=== PATIENT | female | born 1970 | race Hispanic/Latino ===

== ENCOUNTER 2021-10-09 20:10 | Emergency (ER) | payer OTHER ==
--- NOTE | 2021-10-09 21:08 | RAD REPORT ---
EXAM DESCRIPTION: CT - CTHCSPWOC - 10/09/2021 8:53 pm CLINICAL HISTORY: Trauma, head and neck injury. LOC, fall COMPARISON: <Comparisons> TECHNIQUE: Axial 5 mm thick images of the head were obtained. Axial 2 mm thick images of the cervical spine were obtained with sagittal and coronal reconstruction images generated and reviewed. All CT scans are performed using dose optimization technique as appropriate and may include automated exposure control or mA/KV adjustment according to patient size. FINDINGS: CT HEAD WITHOUT CONTRAST: No acute hemorrhage, hydrocephalus or extra-axial collection is identified.No areas of brain edema or midline shift. There is significant right-sided ostiomeatal unit pattern of sinus disease noted. The calvarium is in tact. CT CERVICAL SPINE WITHOUT CONTRAST: No fracture or subluxation.No prevertebral soft tissues swelling is identified. IMPRESSION: No acute intracranial or cervical spine findings.
[2021-10-09] MEDS ORDERED: Ringers Lactate 1,000 ML IV ONE (23:28)
[2021-10-09 23:31] LABS: Hematocrit 42.4 % (36.0-45.0); MPV 8.2 fL (7.6-11.3); RBC Red Blood Cell Count 4.85 M/uL (3.86-4.86)
[2021-10-09 23:45] LABS: ALT/SGPT 29 U/L (12-78); AST/SGOT 14 U/L (15-37); Albumin 3.1 g/dL (3.4-5.0); Alkaline Phosphatase 114 U/L (45-117); BUN Blood Urea Nitrogen 8 mg/dL (7-18); Bicarbonate 28 mmol/L (21-32); Bilirubin Direct 0.1 mg/dL (0-0.2); Bilirubin Total 0.5 mg/dL (0.2-1.0); Glucose Level 275 mg/dL (74-106); Lipase 99 U/L (73-393); Potassium 3.9 mmol/L (3.5-5.1); Protein, Total 8.1 g/dL (6.4-8.2); Sodium Level 136 mmol/L (136-145)
--- NOTE | 2021-10-10 00:22 | ER ---
Nurse's Notes [facility] Name: Tova Ames Age: 51 yrs Sex: Female : 1970 Arrival Date: 10/09/2021 Time: 20:13 Bed 27 Private MD: Diagnosis: Vomiting;Acute post-traumatic headache;SARS-associated coronavirus as the cause of diseases classified elsewhere Presentation: 10/09 20:34 Chief complaint: Patient states: she was throwing up a lot and then she maybe passed iw out and hit her head on the end of the table , pt states she had a cough this morning and she fell then also , she got really upset today , she has nerve issues and was having pain in her joints. 20:34 Acuity: JACKIE 3 iw 20:34 Method Of Arrival: Wheelchair iw 20:38 Coronavirus screen: At this time, the client does not indicate any symptoms associated iw with coronavirus-19. Ebola Screen: Patient negative for fever greater than or equal to 101.5 degrees Fahrenheit, and additional compatible Ebola Virus Disease symptoms Patient denies exposure to infectious person. Patient denies travel to an Ebola-affected area in the 21 days before illness onset. No symptoms or risks identified at this time. Initial Sepsis Screen: Does the patient meet any 2 criteria? No. Patient's initial sepsis screen is negative. Does the patient have a suspected source of infection? No. Patient's initial sepsis screen is negative. Risk Assessment: Do you want to hurt yourself or someone else? Patient reports no desire to harm self or others. Onset of symptoms was October 09, 2021. Triage Assessment: 10/10 01:29 Pain: Denies pain. liliane Historical: - Allergies: 10/09 20:39 PENICILLINS; iw - PMHx: 20:39 Diabetes mellitus; iw - Immunization history:: second infection with Covid. - Social history:: Smoking status: unknown. Screenin:45 Abuse screen: Denies threats or abuse. Denies injuries from another. Nutritional liliane screening: No deficits noted. Tuberculosis screening: No symptoms or risk factors identified. Fall Risk None identified. Assessment: 21:45 General: Appears in no apparent distress. Behavior is calm, cooperative. liliane 10/10 01:31 General: The pt was given a mask at ct and she ambulated with a steady gait to the liliane front waiting area. She reported that this was her second infection with Covid and that her had passed last year and it too, was attributed to Covid, she, however, believed it to be another illness. . Vital Signs: 10/09 20:38 BP 143 / 86; Pulse 81; Resp 16; Temp 98.5; Pulse Ox 100% on R/A; iw 21:45 BP 132 / 85; Pulse 72; Resp 16; Temp 98.5; Pulse Ox 99% on R/A; Pain 0/10; liliane 21:45 BP 133 / 75; Pulse 88; Resp 16; Temp 98.5; Pulse Ox 99% on R/A; Pain 0/10; liliane ED Course: 20:13 Patient arrived in ED. ag3 20:38 Triage completed. iw 20:40 Arm band placed on. iw 20:53 CT Head C Spine In Process Unspecified. EDMS 21:37 Max Toth PA is PHCP. jr8 21:37 Tye Coronado MD is Attending Physician. jr8 21:45 Patient has correct armband on for positive identification. Placed in gown. Side rails liliane up X 1. Family at bedside. 22:49 XRAY Chest (1 view) In Process Unspecified. EDMS 23:23 Emilie Baxter, RN is Primary Nurse. liliane 23:23 Basic Metabolic Panel Sent. liliane 23:23 SARS-COV-2 RT PCR (Document "Date of Onset" if Symptomatic) Sent. liliane 23:24 Basic Metabolic Panel Sent. liliane 23:24 CBC with Diff Sent. liliane 23:24 Hepatic Function Sent. liliane 23:24 Lipase Sent. liliane 23:32 SARS-COV-2 RT PCR (Document "Date of Onset" if Symptomatic) Sent. liliane 23:32 Basic Metabolic Panel Sent. liliane 10/10 01:28 No provider procedures requiring assistance completed. liliane 01:28 intact, bleeding controlled, No redness/swelling at site. Pressure dressing applied. liliane Administered Medications: 10/09 23:32 Drug: Ringers - Lactated Ringers Solution 1000 ml Route: IV; Rate: bolus; Site: right liliane antecubital; Outcome: 10/10 00:21 Discharge ordered by . mil 01:28 Discharged to home liliane 01:28 Condition: stable 01:28 Discharge instructions given to patient, Instructed on discharge instructions, follow up and referral plans. Prescriptions given X 1. 01:30 Patient left the ED. liliane Signatures: Dispatcher [employer] Mayuri Mratínez, RN RN Max Muniz PA PA jr8 Chanelle Irvin ag3 Emilie Baxter RN RN bo
--- NOTE | 2021-10-10 00:22 | EDPHYS ---
Physician Documentation [facility] Name: Tova Ames Age: 51 yrs Sex: Female : 1970 Arrival Date: 10/09/2021 Time: 20:13 Bed 27 Private MD: ED Physician Tye Coronado HPI: 10/09 22:30 This 51 yrs old Female presents to ER via Wheelchair with complaints of Fall jr8 Injury, Head Injury-Adult. 22:30 Severity of symptoms: At their worst the symptoms were moderate, in the emergency jr8 department the symptoms have improved. The patient has not experienced similar symptoms in the past. The patient has not recently seen a physician. This is a 51-year-old female patient that presented to the emergency room after sustaining a fall at home. Patient stated that she had been vomiting and he became dizzy and fell and hit the back of her head. Family stated that she was not acting right for a while. Patient stated that initially she did not know where she was but is now feeling better. Patient stated that she has been having URI-like symptoms along with cough and now vomiting. Patient had vomiting a couple weeks ago but had resolved.. Historical: - Allergies: 20:39 PENICILLINS; iw - PMHx: 20:39 Diabetes mellitus; iw - Immunization history:: second infection with Covid. - Social history:: Smoking status: unknown. ROS: 22:30 Eyes: Negative for injury, pain, redness, and discharge, Neck: Negative for injury, jr8 pain, and swelling, Cardiovascular: Negative for chest pain, palpitations, and edema. 22:30 ENT: Positive for sinus congestion. 22:30 Respiratory: Positive for cough, Negative for dyspnea on exertion, shortness of breath, sputum production, wheezing. 22:30 Abdomen/GI: Positive for nausea and vomiting, Negative for abdominal pain, diarrhea. 22:30 Neuro: Positive for dizziness, headache. Exam: 22:30 Constitutional: This is a well developed, well nourished patient who is awake, alert, jr8 and in no acute distress. Head/Face: Normocephalic, atraumatic. Eyes: Pupils equal round and reactive to light, extra-ocular motions intact. Lids and lashes normal. Conjunctiva and sclera are non-icteric and not injected. Cornea within normal limits. Periorbital areas with no swelling, redness, or edema. ENT: Nares patent. No nasal discharge, no septal abnormalities noted. Tympanic membranes are normal and external auditory canals are clear. Oropharynx with no redness, swelling, or masses, exudates, or evidence of obstruction, uvula midline. Mucous membranes moist. Neck: Trachea midline, no thyromegaly or masses palpated, and no cervical lymphadenopathy. Supple, full range of motion without nuchal rigidity, or vertebral point tenderness. No Meningismus. Cardiovascular: Regular rate and rhythm with a normal S1 and S2. No gallops, murmurs, or rubs. Normal PMI, no JVD. No pulse deficits. Respiratory: Lungs have equal breath sounds bilaterally, clear to auscultation and percussion. No rales, rhonchi or wheezes noted. No increased work of breathing, no retractions or nasal flaring. Abdomen/GI: Soft, non-tender, with normal bowel sounds. No distension or tympany. No guarding or rebound. No evidence of tenderness throughout. Back: No spinal tenderness. No costovertebral tenderness. Full range of motion. Skin: Warm, dry with normal turgor. Normal color with no rashes, no lesions, and no evidence of cellulitis. MS/ Extremity: Pulses equal, no cyanosis. Neurovascular intact. Full, normal range of motion. Neuro: Awake and alert, GCS 15, oriented to person, place, time, and situation. Cranial nerves II-XII grossly intact. Motor strength 5/5 in all extremities. Sensory grossly intact. Cerebellar exam normal. Normal gait. Vital Signs: 20:38 BP 143 / 86; Pulse 81; Resp 16; Temp 98.5; Pulse Ox 100% on R/A; iw 21:45 BP 132 / 85; Pulse 72; Resp 16; Temp 98.5; Pulse Ox 99% on R/A; Pain 0/10; liliane 21:45 BP 133 / 75; Pulse 88; Resp 16; Temp 98.5; Pulse Ox 99% on R/A; Pain 0/10; liliane MDM: 21:37 Patient medically screened. [facility] 10/10 00:19 Data reviewed: vital signs, nurses notes, lab test result(s), radiologic studies, CT jr8 scan, plain films. Data interpreted: Pulse oximetry: on room air is 100 %. Interpretation: normal. Counseling: I had a detailed discussion with the patient and/or guardian regarding: the historical points, exam findings, and any diagnostic results supporting the discharge/admit diagnosis, lab results, radiology results, the need for outpatient follow up, a family practitioner, to return to the emergency department if symptoms worsen or persist or if there are any questions or concerns that arise at home. 10/09 22:06 Order name: Basic Metabolic Panel jr8 10/09 22:06 Order name: CBC with Diff; Complete Time: 23:57 jr8 10/09 22:06 Order name: Hepatic Function; Complete Time: 23:57 jr8 10/09 22:06 Order name: Lipase; Complete Time: 23:57 jr8 10/09 22:06 Order name: SARS-COV-2 RT PCR (Document "Date of Onset" if Symptomatic); Complete Time: jr8 00:37 10/09 22:06 Order name: Basic Metabolic Panel; Complete Time: 23:57 EDMS 10/09 20:40 Order name: CT Head C Spine; Complete Time: 21:37 iw 10/09 22:06 Order name: IV Saline Lock; Complete Time: 23:23 jr8 10/09 22:06 Order name: Labs collected and sent; Complete Time: 23:23 jr8 10/09 22:06 Order name: XRAY Chest (1 view) jr8 Administered Medications: 10/09 23:32 Drug: Ringers - Lactated Ringers Solution 1000 ml Route: IV; Rate: bolus; Site: right liliane antecubital; Disposition: 10/10 04:06 Co-signature as Attending Physician, Tye Coronado MD. pkl Disposition Summary: 10/10/21 00:21 Discharge Ordered Location: Home jr8 Problem: new jr8 Symptoms: have improved jr8 Condition: Stable jr8 Diagnosis - Vomiting jr8 - Acute post-traumatic headache jr8 - SARS-associated coronavirus as the cause of diseases classified elsewhere jr8 Followup: jr8 - With: Private Physician - When: 2 - 3 days - Reason: Recheck today's complaints, Continuance of care, Re-evaluation by your physician Discharge Instructions: - Discharge Summary Sheet jr8 - Vomiting, Adult jr8 - COVID-19 jr8 Forms: - Medication Reconciliation Form jr8 - Thank You Letter jr8 - Antibiotic Education jr8 - Prescription Opioid Use jr8 Prescriptions: - Zofran 4 mg Oral Tablet - take 1 tablet by ORAL route every 12 hours As needed; 20 tablet; Refills: 0, jr8 Product Selection Permitted Signatures: Dispatcher [employer] Tye Treviño MD MD pkl Williams, Irene RN RN Max Muniz PA PA jr8 Emilie Baxter RN RN bo
[2021-10-10 01:36] VITALS: TEMP 98.5
[2021-10-10 01:39] VITALS: BP 133/75; O2SAT 99
--- NOTE | 2021-10-10 08:04 | RAD REPORT ---
EXAM DESCRIPTION: Manny Single View10/09/2021 10:49 pm CLINICAL HISTORY: Cough COMPARISON: 2011 FINDINGS: The lungs appear clear of acute infiltrate. The heart is normal size IMPRESSION: No acute abnormalities displayed
== END 2021-10-10 01:30 | disposition home or self-care (01) ==
LOC: ER 20:10
DX: U07.1 COVID-19 (principal); G44.319 Acute post-traumatic headache, not intractable; W18.30XA Fall on same level, unspecified, initial encounter; Y92.009 Unspecified place in unspecified non-institutional (private) residence as the place of occurrence of the external cause; E11.9 Type 2 diabetes mellitus without complications; Z88.0 Allergy status to penicillin
CPT/HCPCS: 85025; 80048; 36415; 80076; 83690; 70450; 72125; 71045; 96374; 99284; U0003; J7120

== ENCOUNTER 2022-03-01 15:05 | Emergency (ER) | payer SELFPAY ==
--- NOTE | 2022-03-01 17:31 | RAD REPORT ---
EXAM DESCRIPTION: Manny Single View03/01/2022 4:41 pm CLINICAL HISTORY: cough COMPARISON: October 2021 FINDINGS: The lungs appear clear of acute infiltrate. The heart is normal size IMPRESSION: No acute abnormalities displayed
--- NOTE | 2022-03-01 17:34 | ER ---
Nurse's Notes [facility] Name: Tova Ames Age: 51 yrs Sex: Female : 1970 Arrival Date: 03/01/2022 Time: 15:08 Bed Waiting Private MD: Diagnosis: Acute upper respiratory infection, unspecified Presentation: 03/01 15:46 Chief complaint: Patient states: cough, congestion, sore throat and body aches since vg1 Saturday. Also states vomiting. Coronavirus screen: Vaccine status: Patient reports being unvaccinated. Client denies travel out of the [place] in the last 14 days. Ebola Screen: Patient denies exposure to infectious person. Patient denies travel to an Ebola-affected area in the 21 days before illness onset. Initial Sepsis Screen: Does the patient meet any 2 criteria? No. Patient's initial sepsis screen is negative. Does the patient have a suspected source of infection? No. Patient's initial sepsis screen is negative. Risk Assessment: Do you want to hurt yourself or someone else? Patient reports no desire to harm self or others. Onset of symptoms was February 26, 2022. 15:46 Method Of Arrival: Wheelchair vg1 15:46 Acuity: JACKIE 4 vg1 Triage Assessment: 15:52 General: Appears uncomfortable, Behavior is calm, cooperative. Pain: Complains of pain vg1 in back. Respiratory: Airway is patent Respiratory effort is even, unlabored. Historical: - Allergies: 15:52 PENICILLINS; vg1 15:52 Aspirin; vg1 15:52 ibuprofen; vg1 - PMHx: 15:52 diabetes mellitus; Nerve damage; vg1 - Immunization history:: Client reports having NOT received the Covid vaccine. - Social history:: Smoking status: Patient denies any tobacco usage or history of. Screenin:49 Abuse screen: Denies threats or abuse. Nutritional screening: No deficits noted. vg1 Tuberculosis screening: No symptoms or risk factors identified. Fall Risk None identified. Assessment: 17:49 Reassessment: Patient appears in no apparent distress at this time. No changes from vg1 previously documented assessment. Patient and/or family updated on plan of care and expected duration. Pain level reassessed. Patient is alert, oriented x 3, equal unlabored respirations, skin warm/dry/pink. Vital Signs: 15:46 BP 134 / 69; Pulse 90; Resp 18; Temp 98.8(TE); Pulse Ox 99% ; Weight 71.21 kg; Height 5 vg1 ft. 1 in. (154.94 cm); 15:46 Body Mass Index 29.66 (71.21 kg, 154.94 cm) vg1 ED Course: 15:08 Patient arrived in ED. mr 15:45 Max Toth PA is PHCP. jr8 15:45 Cody Ron MD is Attending Physician. jr8 15:52 Triage completed. vg1 15:52 Arm band placed on. vg1 16:43 Chest Single View XRAY In Process Unspecified. EDMS 17:49 Patient has correct armband on for positive identification. vg1 17:49 No provider procedures requiring assistance completed. Patient did not have IV access vg1 during this emergency room visit. Administered Medications: No medications were administered Medication: 17:50 VIS not applicable for this client. vg1 Outcome: 17:34 Discharge ordered by . jr8 17:49 Discharged to home ambulatory, with family. vg1 17:49 Condition: good 17:49 Discharge instructions given to patient, Instructed on discharge instructions, follow up and referral plans. medication usage, Demonstrated understanding of instructions, follow-up care, medications, Prescriptions given X 2. 17:50 Patient left the ED. vg1 Signatures: Dispatcher [employer] Agnieszka Storey mr Max Toth PA PA jr8 Idania Tsai, RN RN vg1
--- NOTE | 2022-03-01 17:35 | EDPHYS ---
Physician Documentation [facility] Name: Tova Ames Age: 51 yrs Sex: Female : 1970 Arrival Date: 03/01/2022 Time: 15:08 Bed Waiting Private MD: ED Physician Cody Ron HPI: 03/01 16:22 This 51 yrs old Female presents to ER via Wheelchair with complaints of Cough, jr8 Congestion, Sore Throat. 16:22 The patient or guardian reports cough, that is intermittent, described as mild, flu jr8 symptoms, low-grade fever, myalgias. Onset: The symptoms/episode began/occurred gradually. Severity of symptoms: At their worst the symptoms were mild, in the emergency department the symptoms are unchanged. Modifying factors: The symptoms are alleviated by nothing, the symptoms are aggravated by nothing. Associated signs and symptoms: Pertinent positives: rhinorrhea, sore throat. The patient has not experienced similar symptoms in the past. The patient has not recently seen a physician. Historical: - Allergies: 15:52 PENICILLINS; vg1 15:52 Aspirin; vg1 15:52 ibuprofen; vg1 - PMHx: 15:52 diabetes mellitus; Nerve damage; vg1 - Immunization history:: Client reports having NOT received the Covid vaccine. - Social history:: Smoking status: Patient denies any tobacco usage or history of. ROS: 16:22 Eyes: Negative for injury, pain, redness, and discharge, Neck: Negative for injury, jr8 pain, and swelling, Cardiovascular: Negative for chest pain, palpitations, and edema, Abdomen/GI: Negative for abdominal pain, nausea, vomiting, diarrhea, and constipation, Back: Negative for injury and pain, MS/Extremity: Negative for injury and deformity, Skin: Negative for injury, rash, and discoloration. 16:22 ENT: Positive for rhinorrhea, sinus congestion, sore throat. 16:22 Respiratory: Positive for cough, Negative for shortness of breath, sputum production, wheezing. 16:22 Neuro: Positive for headache. Exam: 16:22 Eyes: Pupils equal round and reactive to light, extra-ocular motions intact. Lids and jr8 lashes normal. Conjunctiva and sclera are non-icteric and not injected. Cornea within normal limits. Periorbital areas with no swelling, redness, or edema. ENT: Nares patent. No nasal discharge, no septal abnormalities noted. Tympanic membranes are normal and external auditory canals are clear. Oropharynx with no redness, swelling, or masses, exudates, or evidence of obstruction, uvula midline. Mucous membranes moist. Neck: Trachea midline, no thyromegaly or masses palpated, and no cervical lymphadenopathy. Supple, full range of motion without nuchal rigidity, or vertebral point tenderness. No Meningismus. Cardiovascular: Regular rate and rhythm with a normal S1 and S2. No gallops, murmurs, or rubs. Normal PMI, no JVD. No pulse deficits. Respiratory: Lungs have equal breath sounds bilaterally, clear to auscultation and percussion. No rales, rhonchi or wheezes noted. No increased work of breathing, no retractions or nasal flaring. Abdomen/GI: Soft, non-tender, with normal bowel sounds. No distension or tympany. No guarding or rebound. No evidence of tenderness throughout. Back: No spinal tenderness. No costovertebral tenderness. Full range of motion. Skin: Warm, dry with normal turgor. Normal color with no rashes, no lesions, and no evidence of cellulitis. MS/ Extremity: Pulses equal, no cyanosis. Neurovascular intact. Full, normal range of motion. Neuro: Awake and alert, GCS 15, oriented to person, place, time, and situation. Cranial nerves II-XII grossly intact. Motor strength 5/5 in all extremities. Sensory grossly intact. Vital Signs: 15:46 BP 134 / 69; Pulse 90; Resp 18; Temp 98.8(TE); Pulse Ox 99% ; Weight 71.21 kg; Height 5 vg1 ft. 1 in. (154.94 cm); 15:46 Body Mass Index 29.66 (71.21 kg, 154.94 cm) vg1 MDM: 15:45 Patient medically screened. jr8 17:33 Data reviewed: vital signs, nurses notes, lab test result(s), radiologic studies, plain jr8 films. Data interpreted: Pulse oximetry: on room air is 99 %. Interpretation: normal. Counseling: I had a detailed discussion with the patient and/or guardian regarding: the historical points, exam findings, and any diagnostic results supporting the discharge/admit diagnosis, lab results, radiology results, the need for outpatient follow up, a family practitioner, to return to the emergency department if symptoms worsen or persist or if there are any questions or concerns that arise at home. 03/01 15:37 Order name: COVID-19 SARS RT PCR (Document "Date of Onset" if Symptomatic); Complete iw Time: 17:33 03/01 15:40 Order name: Flu; Complete Time: 16:45 iw 03/01 15:37 Order name: Chest Single View XRAY; Complete Time: 17:33 iw 03/01 15:40 Order name: Strep; Complete Time: 16:22 iw 03/01 16:24 Order name: Throat Culture EDMS Administered Medications: No medications were administered Disposition Summary: 03/01/22 17:34 Discharge Ordered Location: Home jr8 Problem: new jr8 Symptoms: have improved jr8 Condition: Stable jr8 Diagnosis - Acute upper respiratory infection, unspecified jr8 Followup: jr8 - With: Private Physician - When: 1 week - Reason: Recheck today's complaints, Continuance of care, Re-evaluation by your physician Discharge Instructions: - Discharge Summary Sheet jr8 - Upper Respiratory Infection, Adult jr8 Forms: - Medication Reconciliation Form jr8 - Thank You Letter jr8 - Antibiotic Education jr8 - Prescription Opioid Use jr8 Prescriptions: - Tessalon Perles 100 mg Oral Capsule - take 1 capsule by ORAL route every 8 hours As needed; 15 capsule; Refills: 0, jr8 Product Selection Permitted - Claritin-D 24 Hour 10-240 mg Oral Tablet Sustained Release 24 hr - take 1 tablet by ORAL route once daily As needed; 20 tablet; Refills: 0, jr8 Product Selection Permitted Signatures: Dispatcher [employer] Max Barnes PA PA jr8 Idania Tsai, RN RN vg1
[2022-03-01 18:05] VITALS: BP 134/69; TEMP 98.8; O2SAT 99
== END 2022-03-01 17:50 | disposition home or self-care (01) ==
LOC: ER 15:05
DX: J06.9 Acute upper respiratory infection, unspecified (principal); R51.9 Headache, unspecified; E11.9 Type 2 diabetes mellitus without complications; Z20.822 Contact with and (suspected) exposure to COVID-19; Z88.0 Allergy status to penicillin; Z88.6 Allergy status to analgesic agent
CPT/HCPCS: 71045; 87070; 87081; 87804; 99283; U0003

== ENCOUNTER 2022-10-16 23:23 | Emergency (ER) | payer SELFPAY ==
[2022-10-17 00:24] LABS: Absolute Lymphocytes (CBC) 2.4 K/uL (0.7-4.9); Hematocrit 41.3 % (36.0-45.0); MCV 88.5 fL (80-100); MPV 8.5 fL (7.6-11.3); RBC Red Blood Cell Count 4.67 M/uL (3.86-4.86)
[2022-10-17 00:27] LABS: Protime INR 1.06
[2022-10-17 00:38] LABS: Albumin 3.5 g/dL (3.4-5.0); Bilirubin Direct 0.1 mg/dL (0-0.2); Bilirubin Total 0.4 mg/dL (0.2-1.0); Magnesium 1.9 mg/dL (1.6-2.4); Potassium 3.8 mmol/L (3.5-5.1); Protein, Total 7.9 g/dL (6.4-8.2); Troponin High Sensitivity 4.3 pg/mL (<58.9)
[2022-10-17] MEDS ORDERED: INSULIN -REGULAR HUMAN 50 UNIT/0.5 ML ML ONE (01:33)
[2022-10-17] MEDS ORDERED: NA CHLORIDE 0.9% 1,000 ML ONE (01:34)
[2022-10-17 02:02] LABS: Urine Blood Negative (Negative); Urine Glucose 2+ (Negative); Urine Protein 2+ (Negative); Urine Specific Gravity 1.015 (1.005-1.030)
[2022-10-17 02:14] LABS: Urine Specific Gravity/Preg 1.015 (1.005-1.030)
[2022-10-17 02:41] LABS: Urine Bacteria None Seen /HPF (<20); Urine Mucus Slight /HPF (None Seen); Urine RBC <5 /HPF (None Seen)
--- NOTE | 2022-10-17 03:33 | EDPHYS ---
Physician Documentation [facility] Name: Tova Ames Age: 52 yrs Sex: Female : 1970 Arrival Date: 10/16/2022 Time: 23:24 Bed 14 Private MD: ED Physician Surya Zabala HPI: 10/16 23:40 This 52 yrs old Female presents to ER via Wheelchair with complaints of cp Fainting, Altered Mental Status. 23:40 The patient has experienced syncope, became unresponsive, collapsed. Onset: The cp symptoms/episode began/occurred just prior to arrival. Duration: This was a single episode, about 10-15 minutes. Context: the episode(s) was witnessed, by family, granddaughter, occurred at home, occurred while the patient was walking, Just prior to the episode the patient experienced was upset. Associated injury: Abdomen: anterior aspect of right lateral abdomen, pain. Associated signs and symptoms: Pertinent positives: confusion, Pertinent negatives: chest pain, vomiting. Current symptoms: abdominal pain. Historical: - Allergies: 23:30 Aspirin; vc1 23:30 Ibuprofen; vc1 23:30 PENICILLINS; vc1 - PMHx: 23:30 diabetes mellitus; Nerve damage; vc1 - PSHx: 23:30 None; vc1 - Immunization history:: Client reports receiving the 1st dose of the Covid vaccine. - Social history:: Smoking status: Patient denies any tobacco usage or history of. ROS: 23:45 Constitutional: Negative for body aches, chills, fever, poor PO intake. cp 23:45 Eyes: Negative for injury, pain, redness, and discharge. cp 23:45 ENT: Negative for drainage from ear(s), ear pain, sore throat, difficulty swallowing, difficulty handling secretions. 23:45 Cardiovascular: Negative for chest pain, edema, palpitations. 23:45 Respiratory: Negative for cough, shortness of breath, wheezing. 23:45 Abdomen/GI: Positive for abdominal pain, Negative for nausea, vomiting, and diarrhea, black/tarry stool, rectal bleeding. 23:45 Back: Negative for pain at rest, pain with movement. 23:45 Neuro: Positive for syncope. 23:45 All other systems are negative. Exam: 23:51 Constitutional: The patient appears in no acute distress, alert, awake, cp non-diaphoretic, non-toxic, well developed, well nourished, unkempt. 23:51 Head/Face: Normocephalic, atraumatic. cp 23:51 Eyes: Periorbital structures: appear normal, Pupils: equal, round, and reactive to light and accomodation, Extraocular movements: intact throughout, Conjunctiva: normal, no exudate, no injection, Sclera: no appreciated abnormality, Lids and lashes: appear normal, bilaterally. 23:51 ENT: External ear(s): are unremarkable, Nose: is normal, Mouth: is normal, Voice: is normal. 23:51 Neck: External neck: is normal, C-spine: vertebral tenderness, is not appreciated, crepitus, is not appreciated, ROM/movement: pain, that is mild, with any movement, Meningeal signs: are not present, nuchal rigidity, is not appreciated. 23:51 Chest/axilla: Inspection: normal. 23:51 Cardiovascular: Rate: normal, Rhythm: regular, Edema: is not appreciated, JVD: is not appreciated. 23:51 Respiratory: the patient does not display signs of respiratory distress, Respirations: normal, no use of accessory muscles, no retractions, labored breathing, is not present, Breath sounds: are clear throughout, no decreased breath sounds, no stridor, no wheezing. 23:51 Abdomen/GI: Inspection: abdomen appears normal, Bowel sounds: active, all quadrants, Palpation: soft, in all quadrants. 23:51 Back: vertebral tenderness, is not appreciated. 23:51 Skin: cellulitis, is not appreciated, no rash present. 23:51 Neuro: Orientation: to person, place, situation, Mentation: able to follow commands, slow to respond, Cerebellar function: Romberg testing is negative, Motor: moves all fours, general weakness with no focal deficits, Sensation: no obvious gross deficits. 10/17 00:33 ECG was reviewed by the Attending Physician. cp Vital Signs: 10/16 23:28 Weight 71.21 kg; Height 5 ft. 1 in. (154.94 cm); vc1 23:28 Pain 6/10; vc1 23:40 BP 130 / 70; Pulse 87; Resp 15; Temp 98.9(O); Pulse Ox 97% on R/A; vc1 10/17 01:00 BP 113 / 62; Pulse 73; Resp 19 S; Pulse Ox 99% on R/A; Pain 0/10; aa9 02:30 BP 115 / 73; Pulse 72; Resp 19 S; Pulse Ox 99% on R/A; Pain 0/10; aa9 04:00 BP 142 / 85; Pulse 71; Resp 19 S; Pulse Ox 97% on R/A; aa9 10/16 23:28 Body Mass Index 29.66 (71.21 kg, 154.94 cm) vc1 MDM: 10/16 23:34 Patient medically screened. cp 10/17 03:30 Data reviewed: vital signs, nurses notes, lab test result(s), EKG, radiologic studies, cp CT scan, plain films. 03:30 Consideration of Admission/Observation Patient was admitted/placed on observation. cp Management of patient was discussed with the following: Hospitalist: Isa Lucia NP. I considered the following discharge prescriptions or medication management in the emergency department Medications were administered in the Emergency Department. See MAR. Test considered but Not performed: Other Details echo. Historians other than the Patient: Family Member: Granddaughter. Care significantly affected by the following chronic conditions: Diabetes, neuropathy. Care significantly affected by the following Social Determinants of Health: Poor access to healthcare and/or lack of insurance. Response to treatment: the patient's symptoms have markedly improved after treatment, and as a result, I will admit patient. 10/16 23:57 Order name: Basic Metabolic Panel; Complete Time: 01:20 cp 10/17 01:20 Interpretation: Normal except: CL 97; GLUC 381; GFR 83. cp 10/16 23:57 Order name: CBC with Diff; Complete Time: 01:20 cp 10/17 02:56 Interpretation: Reviewed. cp 10/16 23:57 Order name: D-Dimer; Complete Time: 01:20 cp 10/16 23:57 Order name: LFT's; Complete Time: 01:20 cp 10/17 02:56 Interpretation: Normal except: AST 12; GLOB 4.4; A/G 0.8. cp 10/16 23:57 Order name: Magnesium; Complete Time: 01:20 cp 10/16 23:57 Order name: NT PRO-BNP; Complete Time: 01:20 cp 10/16 23:57 Order name: PT-INR; Complete Time: 01:20 cp 10/16 23:57 Order name: Troponin HS; Complete Time: 01:20 cp 10/16 23:57 Order name: Urine Microscopic Only; Complete Time: 02:55 cp 10/17 00:21 Order name: Glucose, Ancillary Testing; Complete Time: 01:20 EDMS 10/17 01:20 Interpretation: Abnormal: GLUC,ANCIL 366. cp 10/17 02:02 Order name: Urine --Ancillary (enter results); Complete Time: 02:55 mw2 10/17 02:02 Order name: Urine Dipstick-Ancillary; Complete Time: 02:55 EDMS 10/17 02:56 Interpretation: Normal except: UGLUC 2+; UPROT 2+. cp 10/17 02:35 Order name: Glucose, Ancillary Testing; Complete Time: 02:55 EDMS 10/17 02:56 Interpretation: Abnormal: GLUC,ANCIL 230. cp 10/17 03:31 Order name: SARS RAPID; Complete Time: 04:02 cp 10/16 23:57 Order name: XRAY Chest (1 view) cp 10/16 23:57 Order name: EKG; Complete Time: 23:58 cp 10/16 23:57 Order name: Cardiac monitoring; Complete Time: 00:09 cp 10/16 23:57 Order name: EKG - Nurse/Tech; Complete Time: 00:28 cp 10/16 23:57 Order name: IV Saline Lock; Complete Time: 00:09 cp 10/16 23:57 Order name: Labs collected and sent; Complete Time: 00:09 cp 10/16 23:57 Order name: O2 Per Protocol; Complete Time: 00:09 cp 10/16 23:57 Order name: O2 Sat Monitoring; Complete Time: 00:09 cp 10/16 23:57 Order name: Urine Dipstick-Ancillary (obtain specimen); Complete Time: 02:02 cp 10/16 23:57 Order name: Urine Test (obtain specimen); Complete Time: 02:02 cp 10/16 23:57 Order name: Accucheck Blood Glucose; Complete Time: 00:09 cp 10/16 23:57 Order name: XRAY Humerus RIGHT cp 10/16 23:57 Order name: XRAY Wrist RIGHT 3 view cp 10/17 00:26 Order name: CT Traumagram (Head C Spine CAP W Con) cp EC:33 Rate is 84 beats/min. Rhythm is regular. LA interval is normal. QRS interval is normal. cp QT interval is normal. T waves are Inverted in leads III, aVR. Interpreted by me. Reviewed by me. Administered Medications: 01:34 Drug: Insulin Regular Human 10 units {Co-Signature: [email or web address] (Javon Luciano RN).} aa9 Route: IVP; Site: right antecubital; 04:22 Follow up: Response: No adverse reaction aa9 01:34 Drug: NS 0.9% 1000 ml Route: IV; Rate: 1 bolus; Site: right antecubital; aa9 04:21 Follow up: Response: No adverse reaction; IV Status: Completed infusion; IV Intake: aa9 900ml Disposition: 04:09 Co-signature as Attending Physician, Cody COMBS I reviewed the patient's care rt provided by Advanced Practice Provider \T\ agree w/ the diagnosis \T\ care plan. I personally saw the pt \T\ performed a substantive portion of the visit, incldng all aspects of the (History/Exam/Medical Decision Making). Hospitalist was consulted for admission by physician hotel assistant manager, patient told the hospitalist that she did not wish to stay. I went in to discuss with the patient that I do not believe that her syncope was caused from hypoglycemia. I described my concern for possible dysrhythmia. Patient is adamant that she does not wish to stay in the hospital. Patient has decisional making capacity. She is appoint with her physician today. Patient will return if her symptoms worsen or if she changes her mind regarding admission.. Chart complete. Chart complete. Disposition Summary: 10/17/22 04:08 Discharge Ordered Location: Home(10/17/22 04:08) rt Problem: an ongoing problem(10/17/22 04:08) rt Symptoms: have improved(10/17/22 04:08) rt Condition: Fair(10/17/22 04:08) rt Diagnosis - Syncope rt Followup: rt - With: Private Physician - When: 2 - 3 days - Reason: Discharge Instructions: - Discharge Summary Sheet rt - Syncope, Ruez-ul-Smig rt Forms: - Medication Reconciliation Form rt - Thank You Letter rt - School release form aa9 - Family Work Release aa9 - Antibiotic Education rt - Prescription Opioid Use rt Signatures: Dispatcher [employer] EDMS Cody Callahan PA PA cp Shilpa Kirk RN RN vc1 Akiko Argueta RN RN aa9 Surya Zabala MD MD rt Javon Luciano RN [email or web address] Corrections: (The following items were deleted from the chart) 04: 03:32 Observation cp rt 04: 03:32 Oneal Nieves cp rt 04: 03:32 Telemetry/MedSurg (observation) cp rt 04: 03:32 Stable cp rt 04: 03:32 new cp rt 04: 03:32 have improved cp rt 04: 03:32 Standard cp rt 04: 03:32 cp rt 04: 03:32 Syncope and collapse cp rt 04: 03:32 Diabetes mellitus due to underlying condition with hyperglycemia cp rt
--- NOTE | 2022-10-17 03:33 | ER ---
Nurse's Notes [facility] Name: Tova Ames Age: 52 yrs Sex: Female : 1970 Arrival Date: 10/16/2022 Time: 23:24 Bed 14 Private MD: Diagnosis: Syncope Presentation: 10/16 23:28 Chief complaint: Patient states: "She passed out and fell then she looked like she was vc1 having a seizure.". Coronavirus screen: Vaccine status: Patient reports being unvaccinated. Ebola Screen: No symptoms or risks identified at this time. Risk Assessment: Do you want to hurt yourself or someone else? Patient reports no desire to harm self or others. Onset of symptoms was October 16, 2022 at 23:00. 23:28 Method Of Arrival: Wheelchair vc1 23:28 Acuity: JACKIE 3 vc1 23:40 Initial Sepsis Screen: Does the patient meet any 2 criteria? No. Patient's initial vc1 sepsis screen is negative. Does the patient have a suspected source of infection? No. Patient's initial sepsis screen is negative. Triage Assessment: 23:27 General: Appears in no apparent distress. uncomfortable, Behavior is calm, cooperative, vc1 appropriate for age. Pain: Complains of pain in right low back, anterior aspect of right shoulder and right wrist. EENT: No deficits noted. Neuro: Level of Consciousness is awake, obtunded, Oriented to unable to talk. Cardiovascular: No deficits noted. Respiratory: Airway is patent Respiratory effort is even, unlabored, Respiratory pattern is regular, symmetrical. GI: No deficits noted. No signs and/or symptoms were reported involving the gastrointestinal system. : No deficits noted. No signs and/or symptoms were reported regarding the genitourinary system. Derm: No deficits noted. No signs and/or symptoms reported regarding the dermatologic system. Musculoskeletal: No deficits noted. No signs and/or symptoms reported regarding the musculoskeletal system. Historical: - Allergies: 23:30 Aspirin; vc1 23:30 Ibuprofen; vc1 23:30 PENICILLINS; vc1 - PMHx: 23:30 diabetes mellitus; Nerve damage; vc1 - PSHx: 23:30 None; vc1 - Immunization history:: Client reports receiving the 1st dose of the Covid vaccine. - Social history:: Smoking status: Patient denies any tobacco usage or history of. Screenin:41 Abuse screen: Denies threats or abuse. Nutritional screening: No deficits noted. vc1 Tuberculosis screening: No symptoms or risk factors identified. 10/17 04:09 [place] ED Fall Risk Assessment (Adult) History of falling in the last 3 months, aa9 including since admission No falls in past 3 months (0 pts) Confusion or Disorientation No (0 pts) Intoxicated or Sedated No (0 pts) Impaired Gait No (0 pts) Mobility Assist Device Used No (0 pt) Altered Elimination No (0 pt) Score/Fall Risk Level 0 - 2 = Low Risk. Assessment: 00:12 General: Appears comfortable, unkempt, Behavior is cooperative. Neuro: Level of aa9 Consciousness is awake, alert, obeys commands, Oriented to person. Cardiovascular: Patient's skin is warm and dry. Respiratory: Airway is patent Respiratory effort is even, unlabored. GI: : Derm: Skin is intact, is healthy with good turgor. 01:20 Reassessment: Patient appears in no apparent distress at this time. pt sitting up in aa9 bed, eyes closed, breathing equal and regular. daughter at bedside. 02:00 General: Appears in no apparent distress. comfortable, Behavior is calm, cooperative, aa9 appropriate for age. Pain: Denies pain. Neuro: Level of Consciousness is awake, alert, obeys commands, Oriented to person, place, time, situation, Appropriate for age. Respiratory: Airway is patent Respiratory effort is even, unlabored. 04:22 General: Appears in no apparent distress. comfortable, Behavior is calm, cooperative, aa9 appropriate for age. Neuro: Level of Consciousness is awake, alert, obeys commands, Oriented to person, place, time, situation. Respiratory: Airway is patent Respiratory effort is even, unlabored. GI: : Vital Signs: 10/16 23:28 Weight 71.21 kg; Height 5 ft. 1 in. (154.94 cm); vc1 23:28 Pain 6/10; vc1 23:40 BP 130 / 70; Pulse 87; Resp 15; Temp 98.9(O); Pulse Ox 97% on R/A; vc1 10/17 01:00 BP 113 / 62; Pulse 73; Resp 19 S; Pulse Ox 99% on R/A; Pain 0/10; aa9 02:30 BP 115 / 73; Pulse 72; Resp 19 S; Pulse Ox 99% on R/A; Pain 0/10; aa9 04:00 BP 142 / 85; Pulse 71; Resp 19 S; Pulse Ox 97% on R/A; aa9 10/16 23:28 Body Mass Index 29.66 (71.21 kg, 154.94 cm) vc1 ED Course: 10/16 23:24 Patient arrived in ED. ja2 23:28 Cody Callahan PA is PHCP. cp 23:28 Surya Zabala MD is Attending Physician. cp 23:30 Triage completed. vc1 23:31 Arm band placed on left wrist. vc1 23:37 Akiko Argueta, LAZARO is Primary Nurse. aa9 10/17 00:09 Patient has correct armband on for positive identification. Call light in reach. Side aa9 rails up X2. 00:11 Inserted saline lock: 20 gauge in right antecubital area, using aseptic technique. aa9 Blood collected. 00:13 Troponin HS Sent. aa9 00:13 PT-INR Sent. aa9 00:13 NT PRO-BNP Sent. aa9 00:13 Magnesium Sent. aa9 00:13 LFT's Sent. aa9 00:13 D-Dimer Sent. aa9 00:13 CBC with Diff Sent. aa9 00:13 Basic Metabolic Panel Sent. aa9 00:27 XRAY Chest (1 view) In Process Unspecified. EDMS 00:27 XRAY Humerus RIGHT In Process Unspecified. EDMS 00:27 XRAY Wrist RIGHT 3 view In Process Unspecified. EDMS 02:25 CT Traumagram (Head C Spine CAP W Con) In Process Unspecified. EDMS 03:32 Oneal Nieves MD is Hospitalizing Provider. cp 04:08 No provider procedures requiring assistance completed. aa9 04:23 IV discontinued, intact, bleeding controlled, No redness/swelling at site. Pressure aa9 dressing applied. Administered Medications: 01:34 Drug: Insulin Regular Human 10 units {Co-Signature: jj7 (Javon Luciano RN).} aa9 Route: IVP; Site: right antecubital; 04:22 Follow up: Response: No adverse reaction aa9 01:34 Drug: NS 0.9% 1000 ml Route: IV; Rate: 1 bolus; Site: right antecubital; aa9 04:21 Follow up: Response: No adverse reaction; IV Status: Completed infusion; IV Intake: aa9 900ml Medication: 10/16 23:41 VIS not applicable for this client. vc1 Intake: 10/17 04:21 IV: 900ml; Total: 900ml. aa9 Outcome: 03:32 Decision to Hospitalize by Provider. cp 04:08 Discharge ordered by MD. rt 04:23 Discharged to home ambulatory. aa9 04:23 Condition: stable 04:23 Discharge instructions given to patient, Instructed on discharge instructions, follow up and referral plans. Demonstrated understanding of instructions, follow-up care. 04:23 Patient left the ED. aa9 Signatures: Dispatcher [employer] EDMS Cody Callahan PA PA cp Alexander, Jessica ja2 Calcote, Vanessa RN RN vc1 Akiko Argueta RN RN aa9 Surya Zabala MD MD rt Javon Luciano RN [email or web address] Corrections: (The following items were deleted from the chart) 04:13 04:09 BP 115 / 73; Pulse 72bpm; Resp 19bpm; Spontaneous; Pulse Ox 99% RA; Pain 0/10; aa9aa9
[2022-10-17 04:01] LABS: SARS-CoV-2 Antigen Rapid Res Negative (Negative)
[2022-10-17 04:30] VITALS: TEMP 98.9
[2022-10-17 04:34] VITALS: BP 142/85; O2SAT 97
--- NOTE | 2022-10-17 12:29 | RAD REPORT ---
EXAM DESCRIPTION: CT Head and Cervical Spine Without Intravenous Contrast CLINICAL HISTORY: The patient is 52 years old and is Female; syncope, right side abdomen pain TECHNIQUE: Axial computed tomography images of the head/brain and cervical spine without intravenous contrast. Sagittal and coronal reformatted images were created and reviewed. This CT exam was pe rformed using one or more of the following dose reduction techniques: automated exposure control, a djustment of the mA and/or kV according to patient size, and/or use of iterative reconstruction techn ique. COMPARISON: No relevant prior studies available. FINDINGS: Brain: Unremarkable. No hemorrhage. No significant white matter disease. No edema. Ventricles: Unremarkable. No ventriculomegaly. Skull: No acute fracture. Sinuses: Unremarkable as visualized. No acute sinusitis. Mastoid air cells: Unremarkable as visualized. No mastoid effusion. Vertebrae: Unremarkable. No acute fracture. Normal alignment. Discs/spinal canal/neural foramina: No acute findings. No spinal canal stenosis. Soft tissues: Unremarkable. * A single impression for all exams can be found at the end of this report EXAM DESCRIPTION: CT Chest, Abdomen and Pelvis With Intravenous Contrast CLINICAL HISTORY: The patient is 52 years old and is Female; syncope, right side abdomen pain TECHNIQUE: Axial computed tomography images of the chest, abdomen and pelvis with intravenous contra st. Sagittal and coronal reformatted images were created and reviewed. This CT exam was performed using one or more of the following dose reduction techniques: automated exposure control, adjustme nt of the mA and/or kV according to patient size, and/or use of iterative reconstruction technique. COMPARISON: No relevant prior studies available. FINDINGS: CHEST: Lungs: Unremarkable. No mass. No consolidation. Pleural space: Unremarkable. No significant effusion. No pneumothorax. Heart: Unremarkable. No cardiomegaly. No significant pericardial effusion. No significant coronary artery calcifications. ABDOMEN: Liver: Unremarkable. No mass. Gallbladder and bile ducts: Unremarkable. No calcified stones. No ductal dilation. Pancreas: Unremarkable. No ductal dilation. No mass. Spleen: Unremarkable. No splenomegaly. Adrenals: Unremarkable. No mass. Kidneys and ureters: Slightly heterogeneous appearance to the kidneys, right greater than left. No hydronephrosis. No solid mass. Stomach and bowel: Unremarkable. No obstruction. No mucosal thickening. PELVIS: Appendix: No findings to suggest acute appendicitis. Bladder: Diffuse bladder wall thickening. Reproductive: IUD in the uterus. CHEST, ABDOMEN and PELVIS: Intraperitoneal space: Unremarkable. No significant fluid collection. No free air. Bones/joints: Unremarkable. No acute fracture. No dislocation. Soft tissues: Unremarkable. Vasculature: Unremarkable. No aortic aneurysm. Lymph nodes: Unremarkable. No enlarged lymph nodes. * A single impression for all exams can be found at the end of this report IMPRESSION: CT Head and Cervical Spine Without Intravenous Contrast: No acute intracranial abnormality. No acute findings in the cervical spine. CT Chest, Abdomen and Pelvis With Intravenous Contrast: 1. Diffuse bladder wall thickening. Correlate with any concern for cystitis, chronic bladder outl et obstruction, or other infiltrative process. 2. Slightly heterogeneous appearance to the kidneys, right greater than left. Correlate with any concern for infection. Electronically signed by: Marlo Macdonald MD 10/17/2022 3:21 AM CLIP ON SUNGLASSES INSPECTOR Due to temporary technical issues with the PACS/Fluency reporting system, reports are being signed by the in house radiologists without review as a courtesy to insure prompt reporting. The interpreting radiologist is fully responsible for the content of the report.
--- NOTE | 2022-10-17 14:53 | EKG ---
Test Date: 2022-10-17 Test Time: 00:25:19 Emt: LINDSAY MEASUREMENT RESULTS: Intervals: Rate: 84 KS: 154 QRSD: 100 QT: 384 QTc: 453 Rand: P: 51 KS: 154 QRS: -14 T: 14 INTERPRETIVE STATEMENTS: Normal sinus rhythm Moderate voltage criteria for LVH, may be normal variant Borderline ECG No previous ECG available for comparison Electronically Signed On 10-17-22 14:51:39 PRINT [employer]OP CHIEF CLERK by Rob Montgomery
--- NOTE | 2022-10-17 15:14 | RAD REPORT ---
EXAM DESCRIPTION: XR Right Wrist Complete, 3 or More Views CLINICAL HISTORY: The patient is 52 years old and is Female; PAIN Wrist Right 3 View TECHNIQUE: Frontal, lateral and oblique views of the right wrist. COMPARISON: No relevant prior studies available. FINDINGS: BONES/JOINTS: Unremarkable. No acute fracture. No dislocation. SOFT TISSUES: Unremarkable. No radiopaque foreign body. IMPRESSION: Normal right wrist radiographs. Electronically signed by: Mare Baires MD 10/17/2022 12:42 AM BUILDING TRADES INSTRUCTOR Due to temporary technical issues with the PACS/Fluency reporting system, reports are being signed by the in house radiologists without review as a courtesy to insure prompt reporting. The interpreting radiologist is fully responsible for the content of the report.
--- NOTE | 2022-10-17 15:18 | RAD REPORT ---
EXAM DESCRIPTION: XR Right Humerus, 2 or More Views CLINICAL HISTORY: The patient is 52 years old and is Female; PAIN Humerus Right TECHNIQUE: Frontal and lateral views of the right humerus. COMPARISON: No relevant prior studies available. FINDINGS: BONES/JOINTS: Unremarkable. No acute fracture. No dislocation. SOFT TISSUES: Unremarkable. IMPRESSION: Normal right humerus radiographs. Electronically signed by: Mare Baires MD 10/17/2022 12:42 AM LOSS CONTROL MANAGER Due to temporary technical issues with the PACS/Fluency reporting system, reports are being signed by the in house radiologists without review as a courtesy to insure prompt reporting. The interpreting radiologist is fully responsible for the content of the report.
--- NOTE | 2022-10-17 21:02 | RAD REPORT ---
EXAM DESCRIPTION: XR Chest, 1 View CLINICAL HISTORY: The patient is 52 years old and is Female; syncope TECHNIQUE: Frontal view of the chest. COMPARISON: No relevant prior studies available. FINDINGS: LUNGS: Unremarkable. No consolidation. PLEURAL SPACE: Unremarkable. No pneumothorax. HEART: Unremarkable. No cardiomegaly. MEDIASTINUM: Unremarkable. BONES/JOINTS: Unremarkable. UPPER ABDOMEN: Unremarkable as visualized. IMPRESSION: No acute cardiopulmonary process. Electronically signed by: Mare Baires MD 10/17/2022 12:41 AM CODE INSPECTOR Due to temporary technical issues with the PACS/Fluency reporting system, reports are being signed by the in house radiologists without review as a courtesy to insure prompt reporting. The interpreting radiologist is fully responsible for the content of the report.
== END 2022-10-17 04:23 | disposition home or self-care (01) ==
LOC: ER 23:23
DX: R55 Syncope and collapse (principal); R41.82 Altered mental status, unspecified; E11.9 Type 2 diabetes mellitus without complications; Z20.822 Contact with and (suspected) exposure to COVID-19
CPT/HCPCS: 36415; 70450; 71045; 71260; 72125; 74177; 80048; 80076; 81003; 81015; 81025; 82947; 83735; 83880; 84484; 85025; 85379; 85610; 87811; 93005; 96361; 96374; 99284; J1815; J7030; Q9967

== ENCOUNTER 2022-11-04 00:57 | Emergency (ER) | payer SELFPAY ==
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
[2022-11-04 03:14] VITALS: BP 118/64; TEMP 98.3; O2SAT 96
--- NOTE | 2022-11-04 21:23 | RAD REPORT ---
EXAM DESCRIPTION: RAD - Ankle Left 3 View - 11/04/2022 2:31 am CLINICAL HISTORY: Pain COMPARISON: None. TECHNIQUE: Left Ankle 3 Views FINDINGS: No fracture or dislocation. No significant sclerotic/lytic bone lesion. Moderate calcaneal enthesophyte (bone spur) arising from plantar fascia attachment site. Joint spaces unremarkable. Soft tissues unremarkable. IMPRESSION: Moderate left calcaneal enthesophyte (bone spur) arising from plantar fascia attachment site. Electronically signed by: Elder Manrique MD 11/04/2022 2:43 AM PROCESS MANAGER Due to temporary technical issues with the PACS/Fluency reporting system, reports are being signed by the in house radiologists without review as a courtesy to insure prompt reporting. The interpreting radiologist is fully responsible for the content of the report.
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
== END 2022-11-04 03:05 | disposition home or self-care (01) ==
LOC: ER 00:57
DX: S00.03XA Contusion of scalp, initial encounter (principal); G44.319 Acute post-traumatic headache, not intractable; M79.672 Pain in left foot; Y04.8XXA Assault by other bodily force, initial encounter
CPT/HCPCS: 70450; 72125; 99284

== ENCOUNTER 2022-11-21 17:22 | Emergency (ER) | payer SELFPAY ==
[2022-11-21] MEDS ORDERED: dexAMETHasone 10 MG/ML VIAL ONE (17:59)
[2022-11-21] MEDS ORDERED: NA CHLORIDE 0.9% 500 ML ONE (17:59)
[2022-11-21] MEDS ORDERED: DIPHENHYDRAMINE 50 MG/ML VIAL ONE (17:59)
[2022-11-21] MEDS ORDERED: METOCLOPRAMIDE 10 MG/2mL INJ ONE (17:59)
[2022-11-21] MEDS ORDERED: NA CHLORIDE 0.9% 50 ML ONE (18:00)
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
[2022-11-21 22:06] VITALS: TEMP 98.2
[2022-11-21 22:07] VITALS: BP 132/68; O2SAT 96
== END 2022-11-21 21:36 | disposition home or self-care (01) ==
LOC: ER 17:22
DX: R51.9 Headache, unspecified (principal); F07.81 Postconcussional syndrome; Z88.0 Allergy status to penicillin; Z88.6 Allergy status to analgesic agent
CPT/HCPCS: J1100; J1200; J2765; J7040

== ENCOUNTER 2022-11-25 16:08 | Emergency (ER) | payer SELFPAY ==
--- NOTE | 2022-11-25 17:22 | RAD REPORT ---
EXAM DESCRIPTION: Manny Single View11/25/2022 5:08 pm CLINICAL HISTORY: Chest pain COMPARISON: October 2022 FINDINGS: The lungs appear clear of acute infiltrate. The heart is normal size IMPRESSION: No acute abnormalities displayed
[2022-11-25 17:26] LABS: Absolute Lymphocytes (CBC) 1.7 K/uL (0.7-4.9); Hematocrit 38.6 % (36.0-45.0); MCV 89.4 fL (80-100); MPV 8.3 fL (7.6-11.3); RBC Red Blood Cell Count 4.32 M/uL (3.86-4.86)
[2022-11-25 17:29] LABS: Albumin 3.1 g/dL (3.4-5.0); Bilirubin Direct 0.1 mg/dL (0-0.2); Bilirubin Total 0.4 mg/dL (0.2-1.0); Potassium 4.5 mmol/L (3.5-5.1); Protein, Total 7.2 g/dL (6.4-8.2); Troponin High Sensitivity 3.4 pg/mL (<58.9)
[2022-11-25 17:37] LABS: Urine Blood Negative (Negative); Urine Glucose 3+ (Negative); Urine Protein Trace (Negative)
[2022-11-25 18:01] LABS: Barbiturates NEGATIVE (NEGATIVE); Benzodiazepines NEGATIVE (NEGATIVE); Cocaine NEGATIVE (NEGATIVE); METHAMPHETAM NEGATIVE (NEGATIVE); Methadone NEGATIVE (NEGATIVE); Opiates NEGATIVE (NEGATIVE); Phencyclidine NEGATIVE (NEGATIVE); THC Cannibis NEGATIVE (NEGATIVE)
--- NOTE | 2022-11-25 18:01 | RAD REPORT ---
EXAM DESCRIPTION: CT - Head Brain Wo Cont - 11/25/2022 5:52 pm CLINICAL HISTORY: Alteration of awareness/confusion COMPARISON: November 04, 2022 TECHNIQUE: Computed axial tomography of the head was obtained. IV contrast was not requested. All CT scans are performed using dose optimization technique as appropriate and may include automated exposure control or mA/KV adjustment according to patient size. FINDINGS: An intracranial bleed is not seen The ventricles are normal in caliber No extra-axial fluid collection is noted. No significant hypodense area within the brain noted. Left parietal scalp hematoma has mostly resolved since the prior exam Fluid within the sinuses/ mastoids is not seen. IMPRESSION: No acute intracranial abnormality is seen If patient's symptoms persist MRI of the brain would be recommended
[2022-11-25] MEDS ORDERED: NA CHLORIDE 0.9% 100 ML ONE (18:12)
[2022-11-25] MEDS ORDERED: INSULIN -REGULAR HUMAN 50 UNIT/0.5 ML ML ONE (18:12)
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
[2022-11-25 19:34] VITALS: BP 131/72; TEMP 98.4
[2022-11-25 19:35] VITALS: O2SAT 98
--- NOTE | 2022-11-26 12:36 | EKG ---
Test Date: 2022-11-25 Test Time: 18:36:50 Lance Crewmember: MALOU MEASUREMENT RESULTS: Intervals: Rate: 85 MO: 158 QRSD: 90 QT: 384 QTc: 456 [place]: P: 59 MO: 158 QRS: 13 T: 44 INTERPRETIVE STATEMENTS: Normal sinus rhythm Normal ECG Compared to ECG 10/17/2022 00:25:19 Left ventricular hypertrophy no longer present Electronically Signed On 11-26-22 12:35:19 SURGICAL SCHEDULER by Rob Montgomery
== END 2022-11-25 19:27 | disposition home or self-care (01) ==
LOC: ER 16:08
DX: E11.65 Type 2 diabetes mellitus with hyperglycemia (principal)
CPT/HCPCS: 36415; 70450; 71045; 80048; 80076; 80307; 81003; 82947; 83880; 84484; 85025; 93005; 96374; 99284; G0480; J1815

== ENCOUNTER 2023-09-09 11:39 | Emergency (ER) | payer OTHER ==
[2023-09-09 14:00] LABS: Specific Gravity 1.025 (1.005-1.030); Urine Bacteria 20-50 /HPF (<20); Urine Bilirubin NEGATIVE (Negative); Urine Blood 1+ (Negative); Urine Clarity Extremely Turbid (Clear); Urine Color Yellow (Yellow); Urine Glucose 1+ (Negative); Urine Mucus 4+ /HPF (None Seen); Urine Protein 3+ (Negative); Urine RBC 21-50 /HPF (None Seen); Urine Urobilinogen Normal (Normal)
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
--- NOTE | 2023-09-09 14:18 | ER ---
Nurse's Notes [facility] Name: Tova Ames Age: 53 yrs Sex: Female : 1970 Arrival Date: 09/09/2023 Time: 11:39 Bed IW3 Private MD: Diagnosis: Influenza due to other identified influenza virus with gastrointestinal manifestations-flu B;UTI/ Urinary tract infection, site not specified Presentation: 09/09 12:18 Chief complaint: Patient states: Saturday started feeling bad and throwing up , iw yesterday was throwing up again, felt like my whole body was hurting fever at home 101. Coronavirus screen: Client presents with at least one sign or symptom that may indicate coronavirus-19. Ebola Screen: Patient negative for fever greater than or equal to 101.5 degrees Fahrenheit, and additional compatible Ebola Virus Disease symptoms Patient denies exposure to infectious person. Patient denies travel to an Ebola-affected area in the 21 days before illness onset. No symptoms or risks identified at this time. Initial Sepsis Screen: Does the patient meet any 2 criteria? Does the patient have a suspected source of infection? No. Patient's initial sepsis screen is negative. Risk Assessment: Do you want to hurt yourself or someone else? Patient reports no desire to harm self or others. Onset of symptoms was September 07, 2023. 12:18 Method Of Arrival: Ambulatory iw 12:18 Acuity: JACKIE 4 iw Historical: - Allergies: 12:20 Aspirin; iw 12:20 Ibuprofen; iw 12:20 PENICILLINS; iw - PMHx: 12:20 diabetes mellitus; Nerve damage; iw Assessment: 14:14 Reassessment: Patient appears in no apparent distress at this time. Patient and/or iw family updated on plan of care and expected duration. Pain level reassessed. Patient is alert, oriented x 3, equal unlabored respirations, skin warm/dry/pink. Vital Signs: 12:18 BP 121 / 80; Pulse 112; Resp 18; Temp 99.2; Pulse Ox 99% on R/A; Weight 76.2 kg; Height iw 5 ft. 2 in. ; Pain 8/10; 12:18 Body Mass Index 30.73 (76.20 kg, 157.48 cm) iw 12:18 Pain Scale: Adult ED Course: 11:41 Patient arrived in ED. mg5 11:42 Marleen Cox FNP-C [facility]. snw 11:42 Delmer Gregory MD is Attending Physician. snw 12:20 Triage completed. iw 12:20 Arm band placed on. iw 13:43 Urine W/Microscopic (UAM) Sent. iw 13:43 Flu Sent. iw 14:26 Mayuri Reyes, RN is Primary Nurse. iw Administered Medications: 14:13 Drug: Promethazine PO 25 mg PO once Route: PO; iw 14:32 Drug: Rocephin (cefTRIAXone) IM 1 grams IM once Route: IM; Site: right ventrogluteal; iw Outcome: 14:17 Discharge ordered by . snw 14:32 Patient left the ED. iw Signatures: Marleen Cox FNP-C [employer] Mayuri Reyes, RN RN iw Jazmin Saldana mg5
[2023-09-09] MEDS ORDERED: PROMETHAZINE 25 MG TABLET ONE (14:26)
[2023-09-09] MEDS ORDERED: LIDOCAINE 1% MPF 5 ML VIAL ONE (14:42)
[2023-09-09] MEDS ORDERED: CEFTRIAXONE 1000 MG/VIAL ONE (14:42)
[2023-09-09 15:33] VITALS: BP 121/80; TEMP 99.2; O2SAT 99
== END 2023-09-09 14:32 | disposition home or self-care (01) ==
LOC: ER 11:39
DX: J11.2 Influenza due to unidentified influenza virus with gastrointestinal manifestations (principal); N39.0 Urinary tract infection, site not specified; Z11.52 Encounter for screening for COVID-19; Z88.0 Allergy status to penicillin; Z88.6 Allergy status to analgesic agent
CPT/HCPCS: 87088; 81001; 87086; 87804 ×2; 96372; 99284; Q0169; J2001; J0696

== ENCOUNTER → 2023-11-18 | Emergency (ER) | payer OTHER ==
--- OUTSIDE RECORDS SUMMARY | 2023-11-18 15:22 | XMS REPORT | Continuity of Care Document ---
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 2022-0 3-21 00:00: 00 No Dose Unknown 2022-0 3-21 00:00: 00 No Dose Unknown 2022-0 3-21 00:00: 00 No Dose Unknown 2022-0 3-21 00:00: 00 No Dose Unknown 2022-0 3-21 00:00: 00 No Dose Unknown 2022-0 3-21 00:00: 00 No Dose Unknown 2022-0 3-21 00:00: 00 No Dose Unknown 2022-0 3-21 00:00: 00 No Dose Unknown 2022-0 3-21 00:00: 00 No Dose Unknown 2022-0 3-21 00:00: 00 No Dose Unknown 2022-0 3-21 00:00: 00 No Dose Unknown 2022-0 3-21 00:00: 00 No Dose Unknown 2022-0 3-21 00:00: 00 No Dose Unknown 2022-0 3-21 00:00: 00 No Dose Unknown 2022-0 3-21 00:00: 00 No Dose Unknown 2022-0 3-21 00:00: 00 No Dose Unknown 2022-0 3-21 00:00: 00 No Dose Unknown 2022-0 3-21 00:00: 00 No Dose Unknown 2022-0 3-21 00:00: 00 No Dose Unknown 2022-0 3-21 00:00: 00 No Dose Unknown 2022-0 3-21 00:00: 00 No Dose Unknown 2022-0 3-21 00:00: 00 No Dose Unknown 2022-0 3-21 00:00: 00 No Dose Unknown 2022-0 3-21 00:00: 00 No Dose Unknown 2022-0 3-21 00:00: 00 No Dose Unknown 2022-0 3-21 00:00: 00 No Dose Unknown 2022-0 3-21 00:00: 00 No Dose Unknown 2022-0 3-21 00:00: 00 No Dose Unknown 2022-0 3-21 00:00: 00 No Dose Unknown 2022-0 3-21 00:00: 00 No Dose Unknown 2022-0 3-21 00:00: 00 No Dose Unknown 2022-0 3-21 00:00: 00 No Dose Unknown 2022-0 3-21 00:00: 00 No Dose Unknown 2022-0 3-21 00:00: 00 No Dose Unknown 2022-0 3-21 00:00: 00 No Dose Unknown 2022-0 3-21 00:00: 00 No Dose Unknown 2022-0 3-21 00:00: 00 No Dose Unknown 2022-0 3-21 00:00: 00 No Dose Unknown 2022-0 3-21 00:00: 00 No Dose Unknown 2022-0 3-21 00:00: 00 No Dose Unknown 2022-0 3-21 00:00: 00 No Dose Unknown 2022-0 3-21 00:00: 00 No Dose Unknown 2022-0 3-21 00:00: 00 No Dose Unknown 2022-0 3-21 00:00: 00 No Dose Unknown 2022-0 3-21 00:00: 00 No Dose Unknown 2022-0 3-21 00:00: 00 No Dose Unknown 2022-0 3-21 00:00: 00 No Dose Unknown 2022-0 3-21 00:00: 00 No Dose Unknown 2022-0 3-21 00:00: 00 No Dose Unknown 2022-0 3-21 00:00: 00 No Dose Unknown 2022-0 3-21 00:00: 00 No Dose Unknown 2022-0 3-21 00:00: 00 No Dose Unknown 2022-0 3-21 00:00: 00 No Dose Unknown 2022-0 3-21 00:00: 00 No Dose Unknown 2022-0 3-21 00:00: 00 No Dose Unknown 2022-0 3-21 00:00: 00 No Dose Unknown 2022-0 3-21 00:00: 00 No Dose Unknown 2022-0 3-21 00:00: 00 No Dose Unknown 2022-0 3-21 00:00: 00 No Dose Unknown 2022-0 3-21 00:00: 00 No Dose Unknown 2022-0 3-21 00:00: 00 No Dose Unknown 2022-0 3-21 00:00: 00 No Dose Unknown 2022-0 3-21 00:00: 00 No Dose Unknown 2022-0 3-21 00:00: 00 No Dose Unknown 2022-0 3-21 00:00: 00 No Dose Unknown 2022-0 3-21 00:00: 00 No Dose Unknown 2022-0 3-21 00:00: 00 No Dose Unknown 2022-0 3-21 00:00: 00 No Dose Unknown 2022-0 3-21 00:00: 00 No Dose Unknown 2022-0 3-21 00:00: 00 No Dose Unknown 2022-0 3-21 00:00: 00 No Dose Unknown 2022-0 3-21 00:00: 00 No Dose Unknown 2022-0 3-21 00:00: 00 No Dose Unknown 2022-0 3-21 00:00: 00 No Dose Unknown 2022-0 3-21 00:00: 00 No Dose Unknown 2022-0 3-21 00:00: 00 No Dose Unknown 2022-0 3-21 00:00: 00 No insulin regular human (HUMULIN R) injection 10 Units 2021-0 3-03 06:00: 00 - 04:52 :00 No 10U 10 Units, Slow IV Push, ONCE, 1 dose, On [facility] 12/07/21 at 0000[facility] (NS) bolus infusion 2,000 mL 12-07 06:00: 00 12-07 07:03 :00 No 2000mL at 999 mL/hr, 2,000 mL, IV Infusion, ONCE, 1 dose, [facility] 0000[facility] 750 mg tablet 12-07 00:00: 00 12-15 05:59 :00 No [id number] 750mg Take 1 tablet by mouth every 24 (twenty-fo ur) hours for 7 days. [facility] Dose Unknown 2020-10 00:00: 00 No glimepiride 4 mg tablet 2020-10 00:00: 00 No 1mg glimepiride 4 mg tablet 2020-10 00:00: 00 No 1mg glimepiride 4 mg tablet 2020-10 00:00: 00 No 1mg Dose Unknown 2020-10 00:00: 00 No Dose Unknown 2020-10 00:00: 00 No Dose Unknown 2020-10 00:00: 00 No Dose Unknown 2020-10 00:00: 00 No ProAir HFA 90 mcg/actuati on aerosol inhaler 2020-10 0 00:00: 00 No 12mcg/a ctuatio n Advair Diskus 250 mcg-50 mcg/dose powder for inhalation 2020-10 0 00:00: 00 No 1mcg/do se triamcinolo ne acetonide 0.1 % topical cream 2020-10 0 00:00: 00 No 1% ProAir HFA 90 mcg/actuati on aerosol inhaler 2020-10 0 00:00: 00 No 12mcg/a ctuatio n Dose Unknown 2020-10 00:00: 00 No Advair Diskus 250 mcg-50 mcg/dose powder for inhalation 2020-10 0 00:00: 00 No 1mcg/do se triamcinolo ne acetonide 0.1 % topical cream 2020-10 0 00:00: 00 No 1% Dose Unknown 2020-10 0-13 00:00: 00 No Dose Unknown 2020-10 0-13 00:00: 00 No Dose Unknown 2020-10 0-13 00:00: 00 No Dose Unknown 2020-10 0-13 00:00: 00 No Dose Unknown 2020-10 0-13 00:00: 00 No Dose Unknown 2020-10 0-13 00:00: 00 No Dose Unknown 2020-10 0-13 00:00: 00 No Dose Unknown 2020-10 0-13 00:00: 00 No Dose Unknown 2020-10 0-13 00:00: 00 No Dose Unknown 2020-10 0-13 00:00: 00 No Dose Unknown 2020-10 0-13 00:00: 00 No Dose Unknown 2020-10 0-13 00:00: 00 No Dose Unknown 2020-10 0-13 00:00: 00 No Dose Unknown 2020-10 0-13 00:00: 00 No Dose Unknown 2020-10 0-13 00:00: 00 No ProAir HFA 90 mcg/actuati on aerosol inhaler 2020-10 0-13 00:00: 00 No 12mcg/a ctuatio n Advair Diskus 250 mcg-50 mcg/dose powder for inhalation 2020-10 0-13 00:00: 00 No 1mcg/do se triamcinolo ne acetonide 0.1 % topical cream 2020-10 0-13 00:00: 00 No 1% Dose Unknown 2020-10 0-13 00:00: 00 No Dose Unknown 2020-10 0-13 00:00: 00 No Dose Unknown 2020-10 0-13 00:00: 00 No Dose Unknown 2020-10 0-13 00:00: 00 No Dose Unknown 2020-10 0-13 00:00: 00 No Dose Unknown 2020-10 0-13 00:00: 00 No Dose Unknown 2020-10 0-13 00:00: 00 No Dose Unknown 2020-10 0-13 00:00: 00 No ProAir HFA 90 mcg/actuati on aerosol inhaler 2020-10 0-13 00:00: 00 No 12mcg/a ctuatio n Advair Diskus 250 mcg-50 mcg/dose powder for inhalation 2020-10 0-13 00:00: 00 No 1mcg/do se triamcinolo ne acetonide 0.1 % topical cream 2020-10 0-13 00:00: 00 No 1% Dose Unknown 2020-10 0-13 00:00: 00 No Dose Unknown 2020-10 0-13 00:00: 00 No Dose Unknown 2020-10 0-13 00:00: 00 No Dose Unknown 2020-10 0-13 00:00: 00 No Dose Unknown 2020-10 0-13 00:00: 00 No Dose Unknown 2020-10 0- 00:00: 00 No Dose Unknown 2020-10 0- 00:00: 00 No Dose Unknown 2020-10 0- 00:00: 00 No nitrofurant oin macrocrysta l 100 mg capsule 2020-10 0-06 00:00: 00 No 1mg nitrofurant oin macrocrysta l 100 mg capsule 2020-10 0-06 00:00: 00 No 1mg nitrofurant oin macrocrysta l 100 mg capsule 2020-10 0-06 00:00: 00 No 1mg nitrofurant oin macrocrysta l 100 mg capsule 2020-10 0-06 00:00: 00 No 1mg nystatin 100,000 unit/gram topical ointment 8 00:00: 00 No 1unit/g theresa Diflucan 150 mg tablet 8 00:00: 00 No 1mg Flagyl 500 mg tablet 0 8 00:00: 00 No 1mg nystatin 100,000 unit/gram topical ointment 0 8 00:00: 00 No 1unit/g theresa Diflucan 150 mg tablet 0 8 00:00: 00 No 1mg Flagyl 500 mg tablet 0 8 00:00: 00 No 1mg nystatin 100,000 unit/gram topical ointment 0 8 00:00: 00 No 1unit/g theresa Diflucan 150 mg tablet 0 8 00:00: 00 No 1mg Flagyl 500 mg tablet 0 8 00:00: 00 No 1mg nystatin 100,000 unit/gram topical ointment 06-05 00:00: 00 No 1unit/g theresa Diflucan 150 mg tablet 8 00:00: 00 No 1mg Flagyl 500 mg tablet 06-05 00:00: 00 No 1mg prednisone 20 mg tablet 0 8 00:00: 00 No 1mg loratadine- pseudoephed rine ER 10 mg-240 mg tablet,exte nded [id number] 8 00:00: 00 No 1mg pantoprazol e 40 mg tablet,tony yed release 8 00:00: 00 No 1mg doxycycline monohydrate 100 mg capsule 0 824 00:00: 00 No 1mg prednisone 20 mg tablet 8 00:00: 00 No 1mg loratadine- pseudoephed rine ER 10 mg-240 mg tablet,exte nded [id number] 0 8 00:00: 00 No 1mg pantoprazol e 40 mg tablet,tony yed release 8 00:00: 00 No 1mg doxycycline monohydrate 100 mg capsule 0 8 00:00: 00 No 1mg prednisone 20 mg tablet 0 8 00:00: 00 No 1mg loratadine- pseudoephed rine ER 10 mg-240 mg tablet,exte nded [id number] 0 824 00:00: 00 No 1mg pantoprazol e 40 mg tablet,tony yed release 0 8 00:00: 00 No 1mg doxycycline monohydrate 100 mg capsule 0 8 00:00: 00 No 1mg prednisone 20 mg tablet 0 824 00:00: 00 No 1mg loratadine- pseudoephed rine ER 10 mg-240 mg tablet,exte nded [id number] 824 00:00: 00 No 1mg pantoprazol e 40 mg tablet,tony yed release 0 824 00:00: 00 No 1mg doxycycline monohydrate 100 mg capsule 0 8-24 00:00: 00 No 1mg prednisone 20 mg tablet 0 04-26 00:00: 00 No 1mg azithromyci n 250 mg tablet 04-26 00:00: 00 No mg fluticasone propionate 50 mcg/actuati on nasal spray,suspe nsion 04-26 00:00: 00 No 1mcg/ac tuation benzonatate 200 mg capsule 04-26 00:00: 00 No 1mg Bromfed DM 2 mg-30 mg-10 mg/5 mL oral syrup 04-26 00:00: 00 No 5mg/5 mL prednisone 20 mg tablet 04-26 00:00: 00 No 1mg azithromyci n 250 mg tablet 04-26 00:00: 00 No mg fluticasone propionate 50 mcg/actuati on nasal spray,suspe nsion 04-26 00:00: 00 No 1mcg/ac tuation benzonatate 200 mg capsule 04-26 00:00: 00 No 1mg Bromfed DM 2 mg-30 mg-10 mg/5 mL oral syrup 04-26 00:00: 00 No 5mg/5 mL prednisone 20 mg tablet 04-26 00:00: 00 No 1mg azithromyci n 250 mg tablet 04-26 00:00: 00 No mg fluticasone propionate 50 mcg/actuati on nasal spray,suspe nsion 04-26 00:00: 00 No 1mcg/ac tuation benzonatate 200 mg capsule 04-26 00:00: 00 No 1mg Bromfed DM 2 mg-30 mg-10 mg/5 mL oral syrup 04-26 00:00: 00 No 5mg/5 mL prednisone 20 mg tablet 04-26 00:00: 00 No 1mg azithromyci n 250 mg tablet 04-26 00:00: 00 No mg fluticasone propionate 50 mcg/actuati on nasal spray,suspe nsion 04-26 00:00: 00 No 1mcg/ac tuation benzonatate 200 mg capsule 04-26 00:00: 00 No 1mg Bromfed DM 2 mg-30 mg-10 mg/5 mL oral syrup 04-26 00:00: 00 No 5mg/5 mL lidocaine 5 % topical patch 04-03 00:00: 00 No 1% lidocaine 5 % topical patch 04-03 00:00: 00 No 1% lidocaine 5 % topical patch 04-03 00:00: 00 No 1% lidocaine 5 % topical patch 04-03 00:00: 00 No 1% losartan 50 mg tablet 03-28 00:00: 00 No 1mg prednisone 20 mg tablet 03-28 00:00: 00 No 1mg glimepiride 4 mg tablet 03-28 00:00: 00 No 1mg duloxetine 60 mg capsule,del ayed release 03-28 00:00: 00 No 1mg doxycycline monohydrate 100 mg capsule 03-28 00:00: 00 No 1mg Bromfed DM 2 mg-30 mg-10 mg/5 mL oral syrup 03-28 00:00: 00 No 5mg/5 mL losartan 50 mg tablet 03-28 00:00: 00 No 1mg prednisone 20 mg tablet 03-28 00:00: 00 No 1mg glimepiride 4 mg tablet 03-28 00:00: 00 No 1mg duloxetine 60 mg capsule,del ayed release 03-28 00:00: 00 No 1mg doxycycline monohydrate 100 mg capsule 03-28 00:00: 00 No 1mg Bromfed DM 2 mg-30 mg-10 mg/5 mL oral syrup 03-28 00:00: 00 No 5mg/5 mL losartan 50 mg tablet 03-28 00:00: 00 No 1mg prednisone 20 mg tablet 03-28 00:00: 00 No 1mg glimepiride 4 mg tablet 03-28 00:00: 00 No 1mg duloxetine 60 mg capsule,del ayed release 03-28 00:00: 00 No 1mg doxycycline monohydrate 100 mg capsule 03-28 00:00: 00 No 1mg Bromfed DM 2 mg-30 mg-10 mg/5 mL oral syrup 03-28 00:00: 00 No 5mg/5 mL losartan 50 mg tablet 03-28 00:00: 00 No 1mg prednisone 20 mg tablet 03-28 00:00: 00 No 1mg glimepiride 4 mg tablet 03-28 00:00: 00 No 1mg duloxetine 60 mg capsule,del ayed release 03-28 00:00: 00 No 1mg doxycycline monohydrate 100 mg capsule 03-28 00:00: 00 No 1mg Bromfed DM 2 mg-30 mg-10 mg/5 mL oral syrup 03-28 00:00: 00 No 5mg/5 mL metronidazo le 500 mg tablet 03-05 00:00: 00 No 1mg pantoprazol e 40 mg tablet,tony yed release 03-05 00:00: 00 No 1mg clarithromy hoa 500 mg tablet 03-05 00:00: 00 No 1mg metronidazo le 500 mg tablet 03-05 00:00: 00 No 1mg pantoprazol e 40 mg tablet,tony yed release 03-05 00:00: 00 No 1mg clarithromy hoa 500 mg tablet 03-05 00:00: 00 No 1mg metronidazo le 500 mg tablet 03-05 00:00: 00 No 1mg pantoprazol e 40 mg tablet,tony yed release 03-05 00:00: 00 No 1mg clarithromy hoa 500 mg tablet 03-05 00:00: 00 No 1mg metronidazo le 500 mg tablet 03-05 00:00: 00 No 1mg pantoprazol e 40 mg tablet,tony yed release 03-05 00:00: 00 No 1mg clarithromy hoa 500 mg tablet 03-05 00:00: 00 No 1mg prednisone 10 mg tablet 03-01 00:00: 00 No 1mg azithromyci n 250 mg tablet 03-01 00:00: 00 No mg prednisone 10 mg tablet 03-01 00:00: 00 No 1mg azithromyci n 250 mg tablet 03-01 00:00: 00 No mg prednisone 10 mg tablet 03-01 00:00: 00 No 1mg azithromyci n 250 mg tablet 03-01 00:00: 00 No mg prednisone 10 mg tablet 03-01 00:00: 00 No 1mg azithromyci n 250 mg tablet 03-01 00:00: 00 No mg clarithromy hoa 500 mg tablet 01-20 00:00: 00 No 1mg metronidazo le 500 mg tablet 01-20 00:00: 00 No 1mg omeprazole 20 mg capsule,del ayed release 01-20 00:00: 00 No 1mg clarithromy hoa 500 mg tablet 01-20 00:00: 00 No 1mg metronidazo le 500 mg tablet 16 00:00: 00 No 1mg omeprazole 20 mg capsule,del ayed release -16 00:00: 00 No 1mg clarithromy hoa 500 mg tablet -16 00:00: 00 No 1mg metronidazo le 500 mg tablet 16 00:00: 00 No 1mg omeprazole 20 mg capsule,del ayed release -16 00:00: 00 No 1mg clarithromy hoa 500 mg tablet -16 00:00: 00 No 1mg metronidazo le 500 mg tablet 16 00:00: 00 No 1mg omeprazole 20 mg capsule,del ayed release -16 00:00: 00 No 1mg Dose Unknown -14 00:00: 00 No Dose Unknown 14 00:00: 00 No lidocaine 5 % topical patch -14 00:00: 00 No 1% losartan 50 mg tablet 4- 00:00: 00 No 1mg glimepiride 4 mg tablet -14 00:00: 00 No 1mg duloxetine 60 mg capsule,del ayed release 0 14 00:00: 00 No 1mg pregabalin 100 mg capsule 0 14 00:00: 00 No 1mg ProAir HFA 90 mcg/actuati on aerosol inhaler 0 01-18 00:00: 00 No 12mcg/a ctuatio n Advair Diskus 250 mcg-50 mcg/dose powder for inhalation 0 14 00:00: 00 No 1mcg/do se lidocaine 5 % topical patch 0 01-18 00:00: 00 No 1% losartan 50 mg tablet 0 01-18 00:00: 00 No 1mg glimepiride 4 mg tablet 0 01-18 00:00: 00 No 1mg duloxetine 60 mg capsule,del ayed release 0 01-18 00:00: 00 No 1mg pregabalin 100 mg capsule 0 01-18 00:00: 00 No 1mg ProAir HFA 90 mcg/actuati on aerosol inhaler 0 01-18 00:00: 00 No 12mcg/a ctuatio n Advair Diskus 250 mcg-50 mcg/dose powder for inhalation 0 01-18 00:00: 00 No 1mcg/do se lidocaine 5 % topical patch 0 01-18 00:00: 00 No 1% losartan 50 mg tablet 0 01-18 00:00: 00 No 1mg glimepiride 4 mg tablet 0 01-18 00:00: 00 No 1mg duloxetine 60 mg capsule,del ayed release 0 01-18 00:00: 00 No 1mg pregabalin 100 mg capsule 0 14 00:00: 00 No 1mg ProAir HFA 90 mcg/actuati on aerosol inhaler 0 14 00:00: 00 No 12mcg/a ctuatio n Advair Diskus 250 mcg-50 mcg/dose powder for inhalation 0 14 00:00: 00 No 1mcg/do se lidocaine 5 % topical patch 0 14 00:00: 00 No 1% losartan 50 mg tablet 01-18 00:00: 00 No 1mg glimepiride 4 mg tablet 01-18 00:00: 00 No 1mg duloxetine 60 mg capsule,del ayed release 01-18 00:00: 00 No 1mg pregabalin 100 mg capsule 01-18 00:00: 00 No 1mg ondansetron (ZOFRAN (PF)) injection 4 mg 12-17 18:45: 00 12-17 17:46 :00 No 4mg 4 mg, Slow IV Push, ONCE, 1 dose, 12/17/20 at 1245, SARAH [facility] NaCl 0.9% (NS) bolus infusion 1,000 mL 12-17 18:45: 00 12-17 18:54 :00 No 1000mL at 999 mL/hr, 1,000 mL, IV Infusion, ONCE, 1 dose, 12/17/20 at 1245, STAT [facility] ondansetron 4 mg disintegrat ing tablet 12-17 00:00: 00 Yes [id number] 4mg Take 1 tablet by mouth every 8 (eight) hours as needed for Nausea and Vomiting (N/V). [facility] pantoprazol e 40 mg EC tablet 12-17 00:00: 00 Yes [id number] 40mg Take 1 tablet by mouth daily. [facility] ondansetron 4 mg disintegrat ing tablet 12-17 00:00: 00 Yes [id number] 4mg Take 1 tablet by mouth every 8 (eight) hours as needed for Nausea and Vomiting (N/V). [facility] pantoprazol e 40 mg EC tablet 12-17 00:00: 00 Yes [id number] 40mg Take 1 tablet by mouth daily. [facility] ondansetron 4 mg disintegrat ing tablet 12-17 00:00: 00 Yes [id number] 4mg Take 1 tablet by mouth every 8 (eight) hours as needed for Nausea and Vomiting (N/V). [facility] pantoprazol e 40 mg EC tablet 0 13 00:00: 00 Yes [id number] 40mg Take 1 tablet by mouth daily. [facility] ondansetron 4 mg disintegrat ing tablet 0 12-17 00:00: 00 Yes [id number] 4mg Take 1 tablet by mouth every 8 (eight) hours as needed for Nausea and Vomiting (N/V). [facility] pantoprazol e 40 mg EC tablet 0 12-17 00:00: 00 Yes [id number] 40mg Take 1 tablet by mouth daily. [facility] ondansetron 4 mg disintegrat ing tablet 0 12-17 00:00: 00 Yes [id number] 4mg Take 1 tablet by mouth every 8 (eight) hours as needed for Nausea and Vomiting (N/V). [facility] pantoprazol e 40 mg EC tablet 0 12-17 00:00: 00 Yes [id number] 40mg Take 1 tablet by mouth daily. [facility] ondansetron 4 mg disintegrat ing tablet 0 12-17 00:00: 00 Yes [id number] 4mg Take 1 tablet by mouth every 8 (eight) hours as needed for Nausea and Vomiting (N/V). [facility] pantoprazol e 40 mg EC tablet 0 12-17 00:00: 00 Yes [id number] 40mg Take 1 tablet by mouth daily. [facility] ondansetron 4 mg disintegrat ing tablet 0 12-17 00:00: 00 Yes [id number] 4mg Take 1 tablet by mouth every 8 (eight) hours as needed for Nausea and Vomiting (N/V). [facility] pantoprazol e 40 mg EC tablet 0 13 00:00: 00 Yes [id number] 40mg Take 1 tablet by mouth daily. [facility] ondansetron 4 mg disintegrat ing tablet 0 12-17 00:00: 00 Yes [id number] 4mg Take 1 tablet by mouth every 8 (eight) hours as needed for Nausea and Vomiting (N/V). [facility] pantoprazol e 40 mg EC tablet 0 3-13 00:00: 00 Yes [id number] 40mg Take 1 tablet by mouth daily. [facility] ondansetron 4 mg disintegrat ing tablet 0 13 00:00: 00 Yes [id number] 4mg Take 1 tablet by mouth every 8 (eight) hours as needed for Nausea and Vomiting (N/V). [facility] pantoprazol e 40 mg EC tablet 2020-0 13 00:00: 00 Yes [id number] 40mg Take 1 tablet by mouth daily. [facility] ondansetron 4 mg disintegrat ing tablet 0 13 00:00: 00 Yes [id number] 4mg Take 1 tablet by mouth every 8 (eight) hours as needed for Nausea and Vomiting (N/V). [facility] pantoprazol e 40 mg EC tablet 2020-0 12-17 00:00: 00 Yes [id number] 40mg Take 1 tablet by mouth daily. [facility] ondansetron 4 mg disintegrat ing tablet 0 12-17 00:00: 00 Yes [id number] 4mg Take 1 tablet by mouth every 8 (eight) hours as needed for Nausea and Vomiting (N/V). [facility] pantoprazol e 40 mg EC tablet 0 12-17 00:00: 00 Yes [id number] 40mg Take 1 tablet by mouth daily. [facility] ondansetron 4 mg disintegrat ing tablet 0 12-17 00:00: 00 Yes [id number] 4mg Take 1 tablet by mouth every 8 (eight) hours as needed for Nausea and Vomiting (N/V). [facility] pantoprazol e 40 mg EC tablet 2020-0 13 00:00: 00 Yes [id number] 40mg Take 1 tablet by mouth daily. [facility] ondansetron 4 mg disintegrat ing tablet 2020-0 13 00:00: 00 Yes [id number] 4mg Take 1 tablet by mouth every 8 (eight) hours as needed for Nausea and Vomiting (N/V). [facility] pantoprazol e 40 mg EC tablet 2020-0 13 00:00: 00 Yes [id number] 40mg Take 1 tablet by mouth daily. [facility] ProAir HFA 90 mcg/actuati on aerosol inhaler 11-30 00:00: 00 No 12mcg/a ctuatio n Advair Diskus 250 mcg-50 mcg/dose powder for inhalation 224 00:00: 00 No 1mcg/do se losartan 50 mg tablet 2-24 00:00: 00 No 1mg duloxetine 60 mg capsule,del ayed release 11-30 00:00: 00 No 1mg esomeprazol e magnesium 40 mg capsule,del ayed release 2 00:00: 00 No 1mg ProAir HFA 90 mcg/actuati on aerosol inhaler 11-30 00:00: 00 No 12mcg/a ctuatio n Advair Diskus 250 mcg-50 mcg/dose powder for inhalation 11-30 00:00: 00 No 1mcg/do se losartan 50 mg tablet 224 00:00: 00 No 1mg duloxetine 60 mg capsule,del ayed release 2 00:00: 00 No 1mg esomeprazol e magnesium 40 mg capsule,del ayed release 224 00:00: 00 No 1mg ProAir HFA 90 mcg/actuati on aerosol inhaler 24 00:00: 00 No 12mcg/a ctuatio n Advair Diskus 250 mcg-50 mcg/dose powder for inhalation 2-24 00:00: 00 No 1mcg/do se ProAir HFA 90 mcg/actuati on aerosol inhaler 24 00:00: 00 No 12mcg/a ctuatio n Advair Diskus 250 mcg-50 mcg/dose powder for inhalation 2-24 00:00: 00 No 1mcg/do se losartan 50 mg tablet 2-24 00:00: 00 No 1mg duloxetine 60 mg capsule,del ayed release 2-24 00:00: 00 No 1mg losartan 50 mg tablet 2-24 00:00: 00 No 1mg esomeprazol e magnesium 40 mg capsule,del ayed release 11-30 00:00: 00 No 1mg duloxetine 60 mg capsule,del ayed release 11-30 00:00: 00 No 1mg esomeprazol e magnesium 40 mg capsule,del ayed release 11-30 00:00: 00 No 1mg azithromyci n 250 mg tablet 11-01 00:00: 00 No mg azithromyci n 250 mg tablet 11-01 00:00: 00 No mg azithromyci n 250 mg tablet 11-01 00:00: 00 No mg azithromyci n 250 mg tablet 11-01 00:00: 00 No mg iohexol (OMNIPAQUE 350 BULK-100 mL) injection 100 mL 10-30 14:30: 00 10-30 14:21 :00 No 100mL 100 mL, Intravenou s, ONCE, 1 dose, 10/30/20 at 0830, Routine [facility] NaCl 0.9% (NS) bolus infusion 1,000 mL 10-30 13:00: 00 10-30 15:20 :00 No 1000mL at 999 mL/hr, 1,000 mL, IV Infusion, ONCE, 1 dose, 10/30/20 at 0700, SARAH [facility] benzonatate 100 mg capsule 10-30 00:00: 00 Yes [id number] 100mg Take 1 capsule by mouth 3 (three) times daily as needed for Cough. [facility] chlorphenir amine 4 mg tablet 10-30 00:00: 00 Yes [id number] 4mg Take 1 tablet by mouth every 6 (six) hours as needed for Allergies or Runny nose. [facility] ondansetron 4 mg disintegrat ing tablet 10-30 00:00: 00 Yes [id number] 4mg Take 1 tablet by mouth every 8 (eight) hours as needed for Nausea and Vomiting (N/V). [facility] benzonatate 100 mg capsule 10-30 00:00: 00 Yes [id number] 100mg Take 1 capsule by mouth 3 (three) times daily as needed for Cough. [facility] chlorphenir amine 4 mg tablet 2020-0 24 00:00: 00 Yes [id number] 4mg Take 1 tablet by mouth every 6 (six) hours as needed for Allergies or Runny nose. [facility] ondansetron 4 mg disintegrat ing tablet 2020-0 10-30 00:00: 00 Yes [id number] 4mg Take 1 tablet by mouth every 8 (eight) hours as needed for Nausea and Vomiting (N/V). [facility] benzonatate 100 mg capsule 2020-0 10-30 00:00: 00 Yes [id number] 100mg Take 1 capsule by mouth 3 (three) times daily as needed for Cough. [facility] chlorphenir amine 4 mg tablet 2020-0 10-30 00:00: 00 Yes [id number] 4mg Take 1 tablet by mouth every 6 (six) hours as needed for Allergies or Runny nose. [facility] ondansetron 4 mg disintegrat ing tablet 0 10-30 00:00: 00 Yes [id number] 4mg Take 1 tablet by mouth every 8 (eight) hours as needed for Nausea and Vomiting (N/V). [facility] benzonatate 100 mg capsule 2020-0 10-30 00:00: 00 Yes [id number] 100mg Take 1 capsule by mouth 3 (three) times daily as needed for Cough. [facility] chlorphenir amine 4 mg tablet 0 10-30 00:00: 00 Yes [id number] 4mg Take 1 tablet by mouth every 6 (six) hours as needed for Allergies or Runny nose. [facility] ondansetron 4 mg disintegrat ing tablet 2020-0 10-30 00:00: 00 Yes [id number] 4mg Take 1 tablet by mouth every 8 (eight) hours as needed for Nausea and Vomiting (N/V). [facility] benzonatate 100 mg capsule 2020-0 24 00:00: 00 Yes [id number] 100mg Take 1 capsule by mouth 3 (three) times daily as needed for Cough. [facility] benzonatate 100 mg capsule 0 10-30 00:00: 00 Yes [id number] 100mg Take 1 capsule by mouth 3 (three) times daily as needed for Cough. [facility] chlorphenir amine 4 mg tablet 10-30 00:00: 00 Yes [id number] 4mg Take 1 tablet by mouth every 6 (six) hours as needed for Allergies or Runny nose. [facility] ondansetron 4 mg disintegrat ing tablet 10-30 00:00: 00 Yes [id number] 4mg Take 1 tablet by mouth every 8 (eight) hours as needed for Nausea and Vomiting (N/V). [facility] chlorphenir amine 4 mg tablet 10-30 00:00: 00 Yes [id number] 4mg Take 1 tablet by mouth every 6 (six) hours as needed for Allergies or Runny nose. [facility] ondansetron 4 mg disintegrat ing tablet 10-30 00:00: 00 Yes [id number] 4mg Take 1 tablet by mouth every 8 (eight) hours as needed for Nausea and Vomiting (N/V). [facility] benzonatate 100 mg capsule 10-30 00:00: 00 Yes [id number] 100mg Take 1 capsule by mouth 3 (three) times daily as needed for Cough. [facility] chlorphenir amine 4 mg tablet 0 10-30 00:00: 00 Yes [id number] 4mg Take 1 tablet by mouth every 6 (six) hours as needed for Allergies or Runny nose. [facility] ondansetron 4 mg disintegrat ing tablet 10-30 00:00: 00 Yes [id number] 4mg Take 1 tablet by mouth every 8 (eight) hours as needed for Nausea and Vomiting (N/V). [facility] benzonatate 100 mg capsule 0 10-30 00:00: 00 Yes [id number] 100mg Take 1 capsule by mouth 3 (three) times daily as needed for Cough. [facility] chlorphenir amine 4 mg tablet 2020-0 10-30 00:00: 00 Yes [id number] 4mg Take 1 tablet by mouth every 6 (six) hours as needed for Allergies or Runny nose. [facility] ondansetron 4 mg disintegrat ing tablet 2020-0 24 00:00: 00 Yes [id number] 4mg Take 1 tablet by mouth every 8 (eight) hours as needed for Nausea and Vomiting (N/V). [facility] benzonatate 100 mg capsule 2020-0 24 00:00: 00 Yes [id number] 100mg Take 1 capsule by mouth 3 (three) times daily as needed for Cough. [facility] chlorphenir amine 4 mg tablet 0 10-30 00:00: 00 Yes [id number] 4mg Take 1 tablet by mouth every 6 (six) hours as needed for Allergies or Runny nose. [facility] ondansetron 4 mg disintegrat ing tablet 10-30 00:00: 00 Yes [id number] 4mg Take 1 tablet by mouth every 8 (eight) hours as needed for Nausea and Vomiting (N/V). [facility] benzonatate 100 mg capsule 2020-0 10-30 00:00: 00 Yes [id number] 100mg Take 1 capsule by mouth 3 (three) times daily as needed for Cough. [facility] chlorphenir amine 4 mg tablet 0 10-30 00:00: 00 Yes [id number] 4mg Take 1 tablet by mouth every 6 (six) hours as needed for Allergies or Runny nose. [facility] ondansetron 4 mg disintegrat ing tablet 2020-0 10-30 00:00: 00 Yes [id number] 4mg Take 1 tablet by mouth every 8 (eight) hours as needed for Nausea and Vomiting (N/V). [facility] benzonatate 100 mg capsule 2020-0 24 00:00: 00 Yes [id number] 100mg Take 1 capsule by mouth 3 (three) times daily as needed for Cough. [facility] chlorphenir amine 4 mg tablet 2020-0 24 00:00: 00 Yes [id number] 4mg Take 1 tablet by mouth every 6 (six) hours as needed for Allergies or Runny nose. [facility] ondansetron 4 mg disintegrat ing tablet 0 24 00:00: 00 Yes [id number] 4mg Take 1 tablet by mouth every 8 (eight) hours as needed for Nausea and Vomiting (N/V). [facility] benzonatate 100 mg capsule 0 24 00:00: 00 Yes [id number] 100mg Take 1 capsule by mouth 3 (three) times daily as needed for Cough. [facility] chlorphenir amine 4 mg tablet 0 24 00:00: 00 Yes [id number] 4mg Take 1 tablet by mouth every 6 (six) hours as needed for Allergies or Runny nose. [facility] ondansetron 4 mg disintegrat ing tablet 2020-0 10-30 00:00: 00 Yes [id number] 4mg Take 1 tablet by mouth every 8 (eight) hours as needed for Nausea and Vomiting (N/V). [facility] benzonatate 100 mg capsule 2020-0 10-30 00:00: 00 Yes [id number] 100mg Take 1 capsule by mouth 3 (three) times daily as needed for Cough. [facility] chlorphenir amine 4 mg tablet 0 10-30 00:00: 00 Yes [id number] 4mg Take 1 tablet by mouth every 6 (six) hours as needed for Allergies or Runny nose. [facility] ondansetron 4 mg disintegrat ing tablet 0 10-30 00:00: 00 Yes [id number] 4mg Take 1 tablet by mouth every 8 (eight) hours as needed for Nausea and Vomiting (N/V). [facility] benzonatate 100 mg capsule 2020-0 24 00:00: 00 Yes [id number] 100mg Take 1 capsule by mouth 3 (three) times daily as needed for Cough. [facility] chlorphenir amine 4 mg tablet 2020-0 24 00:00: 00 Yes [id number] 4mg Take 1 tablet by mouth every 6 (six) hours as needed for Allergies or Runny nose. [facility] ondansetron 4 mg disintegrat ing tablet 2020-0 24 00:00: 00 Yes [id number] 4mg Take 1 tablet by mouth every 8 (eight) hours as needed for Nausea and Vomiting (N/V). [facility] metoclopram zeb 10 mg tablet 10-14 00:00: 00 No 1mg metoclopram zeb 10 mg tablet 10-14 00:00: 00 No 1mg metoclopram zeb 10 mg tablet 10-14 00:00: 00 No 1mg metoclopram zeb 10 mg tablet 10-14 00:00: 00 No 1mg Advair Diskus 250 mcg-50 mcg/dose powder for inhalation 10-13 00:00: 00 No 1mcg/do se Advair Diskus 250 mcg-50 mcg/dose powder for inhalation 10-13 00:00: 00 No 1mcg/do se Advair Diskus 250 mcg-50 mcg/dose powder for inhalation 10-13 00:00: 00 No 1mcg/do se Advair Diskus 250 mcg-50 mcg/dose powder for inhalation 10-13 00:00: 00 No 1mcg/do se lidocaine 5 % topical patch 10-11 00:00: 00 No 1% glimepiride 4 mg tablet 10-11 00:00: 00 No 1mg naproxen 500 mg tablet,tony yed release 10-11 00:00: 00 No 1mg sulfamethox azole 800 mg-trimetho prim 160 mg tablet 10-11 00:00: 00 No 1mg Dose Unknown 10-11 00:00: 00 No pregabalin 100 mg capsule 10-11 00:00: 00 No 1mg lidocaine 5 % topical patch 10-11 00:00: 00 No 1% glimepiride 4 mg tablet 10-11 00:00: 00 No 1mg naproxen 500 mg tablet,tony yed release 10-11 00:00: 00 No 1mg sulfamethox azole 800 mg-trimetho prim 160 mg tablet 10-11 00:00: 00 No 1mg cyclobenzap rine 5 mg tablet 10-11 00:00: 00 No 1mg pregabalin 100 mg capsule 10-11 00:00: 00 No 1mg lidocaine 5 % topical patch 10-11 00:00: 00 No 1% glimepiride 4 mg tablet 10-11 00:00: 00 No 1mg naproxen 500 mg tablet,tony yed release 10-11 00:00: 00 No 1mg sulfamethox azole 800 mg-trimetho prim 160 mg tablet 10-11 00:00: 00 No 1mg cyclobenzap rine 5 mg tablet 10-11 00:00: 00 No 1mg pregabalin 100 mg capsule 10-11 00:00: 00 No 1mg lidocaine 5 % topical patch 10-11 00:00: 00 No 1% glimepiride 4 mg tablet 10-11 00:00: 00 No 1mg naproxen 500 mg tablet,tony yed release 10-11 00:00: 00 No 1mg sulfamethox azole 800 mg-trimetho prim 160 mg tablet 10-11 00:00: 00 No 1mg cyclobenzap rine 5 mg tablet 10-11 00:00: 00 No 1mg pregabalin 100 mg capsule 10-11 00:00: 00 No 1mg ciprofloxac in HCl (CIPRO) tablet 250 mg 2019-10 01:30: 00 09-27 00:42 :00 No 250mg 250 mg, Oral, ONCE NOW, 1 dose, Sat09/26/20 at 1930, SARAH
Re ason for Anti-Infec tive: Documented Infection< br>Documen waldo Infection Site: Urine
D uration of Therapy: 7 days [facility] famotidine (PEPCID (PF)) injection 20 mg 2019-10 22:45: 00 09-26 22:45 :00 No 20mg 20 mg, Slow IV Push, ONCE, 1 dose, [facility] 09/26/20 at 1645, SARAH [facility] ondansetron (ZOFRAN (PF)) injection 4 mg 2019-10 22:45: 00 09-26 22:07 :00 No 4mg 4 mg, Slow IV Push, ONCE, 1 dose, 09/26/20 at 1645, SARAH [facility] proMETHazin e 25 mg tablet 2019-10 00:00: 00 Yes [id number] 25mg Take 1 tablet by mouth every 6 (six) hours as needed for Nausea and Vomiting (N/V). [facility] sucralfate 1 gram tablet 2019-10 00:00: 00 Yes [id number] 1g Take 1 tablet by mouth before meals and at bedtime. [facility] proMETHazin e 25 mg tablet 2019-10 00:00: 00 Yes [id number] 25mg Take 1 tablet by mouth every 6 (six) hours as needed for Nausea and Vomiting (N/V). [facility] sucralfate 1 gram tablet 2019-10 00:00: 00 Yes [id number] 1g Take 1 tablet by mouth before meals and at bedtime. [facility] proMETHazin e 25 mg tablet 2019-10 00:00: 00 Yes [id number] 25mg Take 1 tablet by mouth every 6 (six) hours as needed for Nausea and Vomiting (N/V). [facility] sucralfate 1 gram tablet 2019-10 00:00: 00 Yes [id number] 1g Take 1 tablet by mouth before meals and at bedtime. [facility] proMETHazin e 25 mg tablet 2019-10 00:00: 00 Yes [id number] 25mg Take 1 tablet by mouth every 6 (six) hours as needed for Nausea and Vomiting (N/V). [facility] sucralfate 1 gram tablet 2019-10 00:00: 00 Yes [id number] 1g Take 1 tablet by mouth before meals and at bedtime. [facility] proMETHazin e 25 mg tablet 2019-10 00:00: 00 Yes [id number] 25mg Take 1 tablet by mouth every 6 (six) hours as needed for Nausea and Vomiting (N/V). [facility] sucralfate 1 gram tablet 2019-10 00:00: 00 Yes [id number] 1g Take 1 tablet by mouth before meals and at bedtime. [facility] proMETHazin e 25 mg tablet 2019-10 00:00: 00 Yes [id number] 25mg Take 1 tablet by mouth every 6 (six) hours as needed for Nausea and Vomiting (N/V). [facility] sucralfate 1 gram tablet 2019-10 00:00: 00 Yes [id number] 1g Take 1 tablet by mouth before meals and at bedtime. [facility] proMETHazin e 25 mg tablet 2019-10 00:00: 00 Yes [id number] 25mg Take 1 tablet by mouth every 6 (six) hours as needed for Nausea and Vomiting (N/V). [facility] sucralfate 1 gram tablet 2019-10 00:00: 00 Yes [id number] 1g Take 1 tablet by mouth before meals and at bedtime. [facility] proMETHazin e 25 mg tablet 2019-10 00:00: 00 Yes [id number] 25mg Take 1 tablet by mouth every 6 (six) hours as needed for Nausea and Vomiting (N/V). [facility] sucralfate 1 gram tablet 2019-10 00:00: 00 Yes [id number] 1g Take 1 tablet by mouth before meals and at bedtime. [facility] proMETHazin e 25 mg tablet 2019-10 00:00: 00 Yes [id number] 25mg Take 1 tablet by mouth every 6 (six) hours as needed for Nausea and Vomiting (N/V). [facility] sucralfate 1 gram tablet 2019-10 00:00: 00 Yes [id number] 1g Take 1 tablet by mouth before meals and at bedtime. [facility] proMETHazin e 25 mg tablet 2019-10 00:00: 00 Yes [id number] 25mg Take 1 tablet by mouth every 6 (six) hours as needed for Nausea and Vomiting (N/V). [facility] sucralfate 1 gram tablet 2019-10 00:00: 00 Yes [id number] 1g Take 1 tablet by mouth before meals and at bedtime. [facility] proMETHazin e 25 mg tablet 2019-10 00:00: 00 Yes [id number] 25mg Take 1 tablet by mouth every 6 (six) hours as needed for Nausea and Vomiting (N/V). [facility] sucralfate 1 gram tablet 2019-10 00:00: 00 Yes [id number] 1g Take 1 tablet by mouth before meals and at bedtime. [facility] proMETHazin e 25 mg tablet 2019-10 00:00: 00 Yes [id number] 25mg Take 1 tablet by mouth every 6 (six) hours as needed for Nausea and Vomiting (N/V). [facility] sucralfate 1 gram tablet 2019-10 00:00: 00 Yes [id number] 1g Take 1 tablet by mouth before meals and at bedtime. [facility] proMETHazin e 25 mg tablet 2019-10 00:00: 00 Yes [id number] 25mg Take 1 tablet by mouth every 6 (six) hours as needed for Nausea and Vomiting (N/V). [facility] sucralfate 1 gram tablet 2019-10 00:00: 00 Yes [id number] 1g Take 1 tablet by mouth before meals and at bedtime. [facility] proMETHazin e 25 mg tablet 2019-10 00:00: 00 Yes [id number] 25mg Take 1 tablet by mouth every 6 (six) hours as needed for Nausea and Vomiting (N/V). [facility] sucralfate 1 gram tablet 2019-10 00:00: 00 Yes [id number] 1g Take 1 tablet by mouth before meals and at bedtime. [facility] proMETHazin e 25 mg tablet 2019-10 00:00: 00 Yes [id number] 25mg Take 1 tablet by mouth every 6 (six) hours as needed for Nausea and Vomiting (N/V). [facility] sucralfate 1 gram tablet 2019-10 00:00: 00 Yes [id number] 1g Take 1 tablet by mouth before meals and at bedtime. [facility] ciprofloxac in HCl 250 mg tablet 2019-10 00:00: 00 10-02 05:59 :00 No [id number] 250mg Take 1 tablet by mouth 2 (two) times daily for 5 days. [facility] Victoza 3-Anthony 0.6 mg/0.1 mL (18 mg/3 mL) subcutaneou s pen injector 2019-10 00:00: 00 No (18 mg/3 mL) amitriptyli ne 50 mg tablet 2019-10 00:00: 00 No 1mg gabapentin 400 mg capsule 2019-10 00:00: 00 No 1mg Victoza 3-Anthony 0.6 mg/0.1 mL (18 mg/3 mL) subcutaneou s pen injector 2019-10 00:00: 00 No (18 mg/3 mL) amitriptyli ne 50 mg tablet 2019-10 00:00: 00 No 1mg gabapentin 400 mg capsule 2019-10 00:00: 00 No 1mg Victoza 3-Anthony 0.6 mg/0.1 mL (18 mg/3 mL) subcutaneou s pen injector 2019-10 00:00: 00 No (18 mg/3 mL) amitriptyli ne 50 mg tablet 2019-10 00:00: 00 No 1mg gabapentin 400 mg capsule 2019-10 00:00: 00 No 1mg Victoza 3-Anthony 0.6 mg/0.1 mL (18 mg/3 mL) subcutaneou s pen injector 2019-10 00:00: 00 No (18 mg/3 mL) amitriptyli ne 50 mg tablet 2019-10 00:00: 00 No 1mg gabapentin 400 mg capsule 2019-10 00:00: 00 No 1mg ProAir HFA 90 mcg/actuati on aerosol inhaler 2019-10 2- 00:00: 00 No 12mcg/a ctuatio n dexamethaso ne 4 mg tablet 2019-10 2- 00:00: 00 No 1mg levofloxaci n 500 mg tablet 2019-10 2- 00:00: 00 No 1mg benzonatate 200 mg capsule 2019-10 2- 00:00: 00 No 1mg Bromfed DM 2 mg-30 mg-10 mg/5 mL oral syrup 2019-10 2- 00:00: 00 No 5mg/5 mL ProAir HFA 90 mcg/actuati on aerosol inhaler 2019-10 2- 00:00: 00 No 12mcg/a ctuatio n dexamethaso ne 4 mg tablet 2019-10 2- 00:00: 00 No 1mg levofloxaci n 500 mg tablet 2019-10 2- 00:00: 00 No 1mg benzonatate 200 mg capsule 2019-10 2- 00:00: 00 No 1mg Bromfed DM 2 mg-30 mg-10 mg/5 mL oral syrup 2019-10 2- 00:00: 00 No 5mg/5 mL ProAir HFA 90 mcg/actuati on aerosol inhaler 2019-10 2- 00:00: 00 No 12mcg/a ctuatio n dexamethaso ne 4 mg tablet 2019-10 2- 00:00: 00 No 1mg levofloxaci n 500 mg tablet 2019-10 2- 00:00: 00 No 1mg benzonatate 200 mg capsule 2019-10 2- 00:00: 00 No 1mg Bromfed DM 2 mg-30 mg-10 mg/5 mL oral syrup 2019-10 2- 00:00: 00 No 5mg/5 mL ProAir HFA 90 mcg/actuati on aerosol inhaler 2019-10 2- 00:00: 00 No 12mcg/a ctuatio n dexamethaso ne 4 mg tablet 2019-10 2- 00:00: 00 No 1mg levofloxaci n 500 mg tablet 2019-10 2- 00:00: 00 No 1mg benzonatate 200 mg capsule 2019-10 2- 00:00: 00 No 1mg Bromfed DM 2 mg-30 mg-10 mg/5 mL oral syrup 2019-10 00:00: 00 No 5mg/5 mL iohexol (OMNIPAQUE 350 BULK-100 mL) injection 100 mL 2019-10 02:15: 00 09-02 02:15 :00 No 100mL 100 mL, Intravenou s, ONCE, 1 dose, Vanessa 09/01/20 at 2015, Routine [facility] ondansetron (ZOFRAN (PF)) injection 4 mg 2019-10 23:45: 00 09-01 22:49 :00 No 4mg 4 mg, Slow IV Push, ONCE, 1 dose, [facility] 09/01/20 at 1745, [facility] acetaminoph en (TYLENOL) tablet 650 mg 2019-10 23:45: 00 09-01 22:49 :00 No 650mg 650 mg, Oral, ONCE, 1 dose, [facility] 09/01/20 at 1745, [facility] NaCl 0.9% (NS) bolus infusion 1,000 mL 2019-10 22:45: 00 09-02 00:02 :00 No 1000mL at 999 mL/hr, 1,000 mL, IV Infusion, ONCE, 1 dose, [facility] 09/01/20 at 1645, [facility] azithromyci n 250 mg tablet 2019-10 00:00: 00 09-06 05:59 :00 No [id number] 250mg Take 1 tablet by mouth daily for 4 days. Take 500 mg day 1, then 250 mg days 2 to 5. [facility] prednisone 10 mg tablet 2019-10 00:00: 00 No 1mg glimepiride 4 mg tablet 2019-10 00:00: 00 No 1mg prednisone 10 mg tablet 2019-10 00:00: 00 No 1mg glimepiride 4 mg tablet 2019-10 00:00: 00 No 1mg prednisone 10 mg tablet 2019-10 00:00: 00 No 1mg glimepiride 4 mg tablet 2019-10 00:00: 00 No 1mg prednisone 10 mg tablet 2019-10 00:00: 00 No 1mg glimepiride 4 mg tablet 2019-10 00:00: 00 No 1mg triamcinolo ne acetonide 0.1 % topical cream 2019-10 00:00: 00 No 1% triamcinolo ne acetonide 0.1 % topical cream 2019-10 00:00: 00 No 1% ciprofloxac in 500 mg tablet 2019-10 00:00: 00 No 1mg ciprofloxac in 500 mg tablet 2019-10 00:00: 00 No 1mg amitriptyli ne 50 mg tablet 2019-10 00:00: 00 No 1mg amitriptyli ne 50 mg tablet 2019-10 00:00: 00 No 1mg metoclopram zeb 10 mg tablet 2019-10 00:00: 00 No 1mg cyclobenzap rine 5 mg tablet 2019-10 00:00: 00 No 1mg cyclobenzap rine 5 mg tablet 2019-10 00:00: 00 No 1mg metoclopram zeb 10 mg tablet 2019-10 00:00: 00 No 1mg valacyclovi r 1 gram tablet 2019-10 00:00: 00 No 1gram valacyclovi r 1 gram tablet 2019-10 00:00: 00 No 1gram pregabalin 100 mg capsule 2019-10 00:00: 00 No 1mg pregabalin 100 mg capsule 2019-10 00:00: 00 No 1mg triamcinolo ne acetonide 0.1 % topical cream 2019-10 00:00: 00 No 1% triamcinolo ne acetonide 0.1 % topical cream 2019-10 00:00: 00 No 1% ciprofloxac in 500 mg tablet 2019-10 00:00: 00 No 1mg ciprofloxac in 500 mg tablet 2019-10 00:00: 00 No 1mg amitriptyli ne 50 mg tablet 2019-10 00:00: 00 No 1mg amitriptyli ne 50 mg tablet 2019-10 00:00: 00 No 1mg metoclopram zeb 10 mg tablet 2019-10 00:00: 00 No 1mg cyclobenzap rine 5 mg tablet 2019-10 00:00: 00 No 1mg cyclobenzap rine 5 mg tablet 2019-10 00:00: 00 No 1mg metoclopram zeb 10 mg tablet 2019-10 00:00: 00 No 1mg valacyclovi r 1 gram tablet 2019-10 00:00: 00 No 1gram valacyclovi r 1 gram tablet 2019-10 00:00: 00 No 1gram pregabalin 100 mg capsule 2019-10 00:00: 00 No 1mg pregabalin 100 mg capsule 2019-10 00:00: 00 No 1mg triamcinolo ne acetonide 0.1 % topical cream 2019-10 00:00: 00 No 1% triamcinolo ne acetonide 0.1 % topical cream 2019-10 00:00: 00 No 1% ciprofloxac in 500 mg tablet 2019-10 00:00: 00 No 1mg ciprofloxac in 500 mg tablet 2019-10 00:00: 00 No 1mg amitriptyli ne 50 mg tablet 2019-10 00:00: 00 No 1mg amitriptyli ne 50 mg tablet 2019-10 00:00: 00 No 1mg metoclopram zeb 10 mg tablet 2019-10 00:00: 00 No 1mg cyclobenzap rine 5 mg tablet 2019-10 00:00: 00 No 1mg cyclobenzap rine 5 mg tablet 2019-10 00:00: 00 No 1mg metoclopram zeb 10 mg tablet 2019-10 00:00: 00 No 1mg valacyclovi r 1 gram tablet 2019-10 00:00: 00 No 1gram valacyclovi r 1 gram tablet 2019-10 00:00: 00 No 1gram pregabalin 100 mg capsule 2019-10 00:00: 00 No 1mg pregabalin 100 mg capsule 2019-10 00:00: 00 No 1mg triamcinolo ne acetonide 0.1 % topical cream 2019-10 00:00: 00 No 1% triamcinolo ne acetonide 0.1 % topical cream 2019-10 00:00: 00 No 1% ciprofloxac in 500 mg tablet 2019-10 00:00: 00 No 1mg ciprofloxac in 500 mg tablet 2019-10 00:00: 00 No 1mg amitriptyli ne 50 mg tablet 2019-10 00:00: 00 No 1mg amitriptyli ne 50 mg tablet 2019-10 00:00: 00 No 1mg metoclopram zeb 10 mg tablet 2019-10 00:00: 00 No 1mg cyclobenzap rine 5 mg tablet 2019-10 00:00: 00 No 1mg cyclobenzap rine 5 mg tablet 2019-10 00:00: 00 No 1mg metoclopram zeb 10 mg tablet 2019-10 00:00: 00 No 1mg valacyclovi r 1 gram tablet 2019-10 00:00: 00 No 1gram valacyclovi r 1 gram tablet 2019-10 00:00: 00 No 1gram pregabalin 100 mg capsule 2019-10 00:00: 00 No 1mg pregabalin 100 mg capsule 2019-10 00:00: 00 No 1mg dicyclomine (BENTYL) injection 20 mg 2019-10 13:00: 00 Yes 20mg 20 mg, Intramuscu lar, QID, First dose on Sat07/26/20 at 0800, Until Discontinu ed, Routine [facility] ondansetron (ZOFRAN (PF)) injection 4 mg 2019-10 04:15: 00 07-26 03:28 :00 No 4mg 4 mg, Slow IV Push, ONCE, 1 dose, Sat07/25/20 at 2315, SARAH [facility] iohexol (OMNIPAQUE 350 BULK-150 mL) injection 120 mL 2019-10 04:15: 00 07-26 04:15 :00 No 120mL 120 mL, Intravenou s, ONCE, 1 dose, Sat07/25/20 at 2315, Routine [facility] NaCl 0.9% (NS) IV infusion 1,000 mL 2019-10 03:00: 00 Yes 1000mL at 999 mL/hr, Intravenou s, CONTINUOUS , Starting Sat07/25/20 at 2200, Until Discontinu ed, Routine [facility] ondansetron (ZOFRAN (PF)) injection 4 mg 2019-10 03:00: 00 07-26 02:14 :00 No 4mg 4 mg, Slow IV Push, ONCE, 1 dose, Sat07/25/20 at 2200, SARAH [facility] pantoprazol e (PROTONIX) 40 mg EC tablet 2019-10 00:00: 00 Yes [id number] 40mg Take 1 tablet by mouth daily. [facility] dicyclomine 20 mg tablet 2019-10 00:00: 00 Yes [id number] 20mg Take 1 tablet by mouth every 6 (six) hours as needed for Abdominal pain. [facility] ondansetron (ZOFRAN) 4 mg tablet 2019-10 00:00: 00 Yes [id number] 4mg Take 1 tablet by mouth every 8 (eight) hours as needed for Nausea and Vomiting (N/V). [facility] pantoprazol e (PROTONIX) 40 mg EC tablet 2019-10 00:00: 00 Yes [id number] 40mg Take 1 tablet by mouth daily. [facility] dicyclomine 20 mg tablet 2019-10 00:00: 00 Yes [id number] 20mg Take 1 tablet by mouth every 6 (six) hours as needed for Abdominal pain. [facility] ondansetron (ZOFRAN) 4 mg tablet 2019-10 00:00: 00 Yes [id number] 4mg Take 1 tablet by mouth every 8 (eight) hours as needed for Nausea and Vomiting (N/V). [facility] pantoprazol e (PROTONIX) 40 mg EC tablet 2019-10 00:00: 00 Yes [id number] 40mg Take 1 tablet by mouth daily. [facility] dicyclomine 20 mg tablet 2019-10 00:00: 00 Yes [id number] 20mg Take 1 tablet by mouth every 6 (six) hours as needed for Abdominal pain. [facility] ondansetron (ZOFRAN) 4 mg tablet 2019-10 00:00: 00 Yes [id number] 4mg Take 1 tablet by mouth every 8 (eight) hours as needed for Nausea and Vomiting (N/V). [facility] pantoprazol e (PROTONIX) 40 mg EC tablet 2019-10 00:00: 00 Yes [id number] 40mg Take 1 tablet by mouth daily. [facility] dicyclomine 20 mg tablet 2019-10 00:00: 00 Yes [id number] 20mg Take 1 tablet by mouth every 6 (six) hours as needed for Abdominal pain. [facility] ondansetron (ZOFRAN) 4 mg tablet 2019-10 00:00: 00 Yes [id number] 4mg Take 1 tablet by mouth every 8 (eight) hours as needed for Nausea and Vomiting (N/V). [facility] pantoprazol e (PROTONIX) 40 mg EC tablet 2019-10 00:00: 00 09-26 00:00 :00 No [id number] 40mg Take 1 tablet by mouth daily. [facility] dicyclomine 20 mg tablet 2019-10 00:00: 00 09-26 00:00 :00 No [id number] 20mg Take 1 tablet by mouth every 6 (six) hours as needed for Abdominal pain. [facility] ondansetron (ZOFRAN) 4 mg tablet 2019-10 00:00: 00 09-26 00:00 :00 No [id number] 4mg Take 1 tablet by mouth every 8 (eight) hours as needed for Nausea and Vomiting (N/V). [facility] naproxen 500 mg tablet,tony yed release 2019-10 0 00:00: 00 No 1mg naproxen 500 mg tablet,tony yed release 2019-10 0-14 00:00: 00 No 1mg naproxen 500 mg tablet,tony yed release 2019-10 0-14 00:00: 00 No 1mg naproxen 500 mg tablet,tony yed release 2019-10 0-14 00:00: 00 No 1mg naproxen 500 mg tablet,tony yed release 2019-10 0-14 00:00: 00 No 1mg naproxen 500 mg tablet,tony yed release 2019-10 014 00:00: 00 No 1mg naproxen 500 mg tablet,tony yed release 2019-10 014 00:00: 00 No 1mg naproxen 500 mg tablet,tony yed release 2019-10 014 00:00: 00 No 1mg Victoza 3-Anthony 0.6 mg/0.1 mL (18 mg/3 mL) subcutaneou s pen injector 06-02 00:00: 00 No (18 mg/3 mL) Victoza 3-Anthony 0.6 mg/0.1 mL (18 mg/3 mL) subcutaneou s pen injector 0 06-02 00:00: 00 No (18 mg/3 mL) Victoza 3-Anthony 0.6 mg/0.1 mL (18 mg/3 mL) subcutaneou s pen injector 0 06-02 00:00: 00 No (18 mg/3 mL) Victoza 3-Anthony 0.6 mg/0.1 mL (18 mg/3 mL) subcutaneou s pen injector 06-02 00:00: 00 No (18 mg/3 mL) gabapentin 400 mg capsule 15 00:00: 00 No 1mg gabapentin 400 mg capsule 15 00:00: 00 No 1mg gabapentin 400 mg capsule 15 00:00: 00 No 1mg gabapentin 400 mg capsule 05-21 00:00: 00 No 1mg Actos 15 mg tablet 05-03 00:00: 00 No 1mg glipizide 5 mg tablet 05-03 00:00: 00 No 1mg naproxen 500 mg tablet,tony yed release 05-03 00:00: 00 No 1mg glimepiride 4 mg tablet 05-03 00:00: 00 No 1mg Actos 15 mg tablet 05-03 00:00: 00 No 1mg glipizide 5 mg tablet 05-03 00:00: 00 No 1mg Actos 15 mg tablet 05-03 00:00: 00 No 1mg glipizide 5 mg tablet 05-03 00:00: 00 No 1mg naproxen 500 mg tablet,tony yed release 05-03 00:00: 00 No 1mg glimepiride 4 mg tablet 05-03 00:00: 00 No 1mg naproxen 500 mg tablet,tony yed release 05-03 00:00: 00 No 1mg glimepiride 4 mg tablet 05-03 00:00: 00 No 1mg Actos 15 mg tablet 05-03 00:00: 00 No 1mg glipizide 5 mg tablet 05-03 00:00: 00 No 1mg naproxen 500 mg tablet,tony yed release 05-03 00:00: 00 No 1mg glimepiride 4 mg tablet 05-03 00:00: 00 No 1mg Actos 15 mg tablet 04-21 00:00: 00 No 1mg glimepiride 2 mg tablet 04-21 00:00: 00 No 1mg Actos 15 mg tablet 04-21 00:00: 00 No 1mg glimepiride 2 mg tablet 04-21 00:00: 00 No 1mg Actos 15 mg tablet 04-21 00:00: 00 No 1mg glimepiride 2 mg tablet 04-21 00:00: 00 No 1mg Actos 15 mg tablet 04-21 00:00: 00 No 1mg glimepiride 2 mg tablet 04-21 00:00: 00 No 1mg Singulair 10 mg tablet 04-06 00:00: 00 No 1mg Singulair 10 mg tablet 04-06 00:00: 00 No 1mg Singulair 10 mg tablet 04-06 00:00: 00 No 1mg Singulair 10 mg tablet 04-06 00:00: 00 No 1mg cyclobenzap rine 10 mg tablet 0 6-20 00:00: 00 No 1mg cyclobenzap rine 10 mg tablet 0 03-26 00:00: 00 No 1mg cyclobenzap rine 10 mg tablet 0 03-26 00:00: 00 No 1mg cyclobenzap rine 10 mg tablet 0 03-26 00:00: 00 No 1mg metronidazo le 500 mg tablet 0 2- 00:00: 00 No 1mg metronidazo le 500 mg tablet 2 00:00: 00 No 1mg metronidazo le 500 mg tablet 2 00:00: 00 No 1mg metronidazo le 500 mg tablet 11-09 00:00: 00 No 1mg gabapentin 400 mg capsule 11-02 00:00: 00 No 1mg gabapentin 400 mg capsule 11-02 00:00: 00 No 1mg gabapentin 400 mg capsule 11-02 00:00: 00 No 1mg gabapentin 400 mg capsule 11-02 00:00: 00 No 1mg prednisone 10 mg tablet 10-08 00:00: 00 No mg azithromyci n 250 mg tablet 10-08 00:00: 00 No mg prednisone 10 mg tablet 10-08 00:00: 00 No mg azithromyci n 250 mg tablet 10-08 00:00: 00 No mg prednisone 10 mg tablet 10-08 00:00: 00 No mg azithromyci n 250 mg tablet 10-08 00:00: 00 No mg prednisone 10 mg tablet 10-08 00:00: 00 No mg azithromyci n 250 mg tablet 10-08 00:00: 00 No mg gabapentin 400 mg capsule 2018-10 0 00:00: 00 No 1mg gabapentin 400 mg capsule 2018-10 0 00:00: 00 No 1mg gabapentin 400 mg capsule 2018-10 00:00: 00 No 1mg gabapentin 400 mg capsule 2018-10 0 00:00: 00 No 1mg gabapentin 300 mg capsule 04-30 00:00: 00 No 1mg gabapentin 300 mg capsule 04-30 00:00: 00 No 1mg gabapentin 300 mg capsule 04-30 00:00: 00 No 1mg gabapentin 300 mg capsule 04-30 00:00: 00 No 1mg methocarbam ol (ROBAXIN) 500 mg tablet 12-18 00:00: 00 Yes [id number] 500mg Take 1 tablet by mouth 3 (three) times daily as needed for Pain (scale 4-6). [facility] traMADOL 50 mg tablet 12-18 00:00: 00 Yes [id number] 50mg Take 1 tablet by mouth every 8 (eight) hours as needed for Pain (scale 4-6). [facility] methocarbam ol (ROBAXIN) 500 mg tablet 12-18 00:00: 00 Yes [id number] 500mg Take 1 tablet by mouth 3 (three) times daily as needed for Pain (scale 4-6). [facility] traMADOL 50 mg tablet 12-18 00:00: 00 Yes [id number] 50mg Take 1 tablet by mouth every 8 (eight) hours as needed for Pain (scale 4-6). [facility] methocarbam ol (ROBAXIN) 500 mg tablet 12-18 00:00: 00 Yes [id number] 500mg Take 1 tablet by mouth 3 (three) times daily as needed for Pain (scale 4-6). [facility] traMADOL 50 mg tablet 12-18 00:00: 00 Yes [id number] 50mg Take 1 tablet by mouth every 8 (eight) hours as needed for Pain (scale 4-6). [facility] methocarbam ol (ROBAXIN) 500 mg tablet 12-18 00:00: 00 Yes [id number] 500mg Take 1 tablet by mouth 3 (three) times daily as needed for Pain (scale 4-6). [facility] traMADOL 50 mg tablet 12-18 00:00: 00 Yes [id number] 50mg Take 1 tablet by mouth every 8 (eight) hours as needed for Pain (scale 4-6). [facility] methocarbam ol (ROBAXIN) 500 mg tablet 12-18 00:00: 00 Yes [id number] 500mg Take 1 tablet by mouth 3 (three) times daily as needed for Pain (scale 4-6). [facility] traMADOL 50 mg tablet 12-18 00:00: 00 Yes [id number] 50mg Take 1 tablet by mouth every 8 (eight) hours as needed for Pain (scale 4-6). [facility] methocarbam ol (ROBAXIN) 500 mg tablet 12-18 00:00: 00 Yes [id number] 500mg Take 1 tablet by mouth 3 (three) times daily as needed for Pain (scale 4-6). [facility] traMADOL 50 mg tablet 12-18 00:00: 00 Yes [id number] 50mg Take 1 tablet by mouth every 8 (eight) hours as needed for Pain (scale 4-6). [facility] methocarbam ol (ROBAXIN) 500 mg tablet 12-18 00:00: 00 Yes [id number] 500mg Take 1 tablet by mouth 3 (three) times daily as needed for Pain (scale 4-6). [facility] traMADOL 50 mg tablet 12-18 00:00: 00 Yes [id number] 50mg Take 1 tablet by mouth every 8 (eight) hours as needed for Pain (scale 4-6). [facility] methocarbam ol (ROBAXIN) 500 mg tablet 12-18 00:00: 00 Yes [id number] 500mg Take 1 tablet by mouth 3 (three) times daily as needed for Pain (scale 4-6). [facility] traMADOL 50 mg tablet 12-18 00:00: 00 Yes [id number] 50mg Take 1 tablet by mouth every 8 (eight) hours as needed for Pain (scale 4-6). [facility] methocarbam ol (ROBAXIN) 500 mg tablet 12-18 00:00: 00 Yes [id number] 500mg Take 1 tablet by mouth 3 (three) times daily as needed for Pain (scale 4-6). [facility] traMADOL 50 mg tablet 12-18 00:00: 00 Yes [id number] 50mg Take 1 tablet by mouth every 8 (eight) hours as needed for Pain (scale 4-6). [facility] methocarbam ol (ROBAXIN) 500 mg tablet 12-18 00:00: 00 Yes [id number] 500mg Take 1 tablet by mouth 3 (three) times daily as needed for Pain (scale 4-6). [facility] traMADOL 50 mg tablet 12-18 00:00: 00 Yes [id number] 50mg Take 1 tablet by mouth every 8 (eight) hours as needed for Pain (scale 4-6). [facility] methocarbam ol (ROBAXIN) 500 mg tablet 12-18 00:00: 00 Yes [id number] 500mg Take 1 tablet by mouth 3 (three) times daily as needed for Pain (scale 4-6). [facility] traMADOL 50 mg tablet 12-18 00:00: 00 Yes [id number] 50mg Take 1 tablet by mouth every 8 (eight) hours as needed for Pain (scale 4-6). [facility] methocarbam ol (ROBAXIN) 500 mg tablet 12-18 00:00: 00 Yes [id number] 500mg Take 1 tablet by mouth 3 (three) times daily as needed for Pain (scale 4-6). [facility] traMADOL 50 mg tablet 12-18 00:00: 00 Yes [id number] 50mg Take 1 tablet by mouth every 8 (eight) hours as needed for Pain (scale 4-6). [facility] methocarbam ol (ROBAXIN) 500 mg tablet 12-18 00:00: 00 Yes [id number] 500mg Take 1 tablet by mouth 3 (three) times daily as needed for Pain (scale 4-6). [facility] methocarbam ol (ROBAXIN) 500 mg tablet 12-18 00:00: 00 Yes [id number] 500mg Take 1 tablet by mouth 3 (three) times daily as needed for Pain (scale 4-6). [facility] traMADOL 50 mg tablet 12-18 00:00: 00 Yes [id number] 50mg Take 1 tablet by mouth every 8 (eight) hours as needed for Pain (scale 4-6). [facility] methocarbam ol (ROBAXIN) 500 mg tablet 12-18 00:00: 00 Yes [id number] 500mg Take 1 tablet by mouth 3 (three) times daily as needed for Pain (scale 4-6). [facility] traMADOL 50 mg tablet 12-18 00:00: 00 Yes [id number] 50mg Take 1 tablet by mouth every 8 (eight) hours as needed for Pain (scale 4-6). [facility] methocarbam ol (ROBAXIN) 500 mg tablet 12-18 00:00: 00 11-28 00:00 :00 No [id number] 500mg Take 1 tablet by mouth 3 (three) times daily as needed for Pain (scale 4-6). [facility] traMADOL 50 mg tablet 12-18 00:00: 00 09-16 00:00 :00 No [id number] 50mg Take 1 tablet by mouth every 8 (eight) hours as needed for Pain (scale 4-6). [facility] cyclobenzap rine 5 mg tablet 10-11 00:00: 00 Yes 5mg Take 1 tablet by mouth 3 (three) times daily. [facility] traMADOL (ULTRAM) 50 mg tablet 10-11 00:00: 00 Yes 50mg Take 1 tablet by mouth every 6 (six) hours as needed for Pain (scale 4-6). [facility] naproxen 250 mg tablet 10-11 00:00: 00 Yes 250mg Take 1 tablet by mouth 2 (two) times daily with meals. [facility] cyclobenzap rine 5 mg tablet 10-11 00:00: 00 Yes 5mg Take 1 tablet by mouth 3 (three) times daily. [facility] traMADOL (ULTRAM) 50 mg tablet 10-11 00:00: 00 Yes 50mg Take 1 tablet by mouth every 6 (six) hours as needed for Pain (scale 4-6). [facility] naproxen 250 mg tablet 10-11 00:00: 00 Yes 250mg Take 1 tablet by mouth 2 (two) times daily with meals. [facility] cyclobenzap rine 5 mg tablet 10-11 00:00: 00 Yes 5mg Take 1 tablet by mouth 3 (three) times daily. [facility] traMADOL (ULTRAM) 50 mg tablet 10-11 00:00: 00 Yes 50mg Take 1 tablet by mouth every 6 (six) hours as needed for Pain (scale 4-6). [facility] naproxen 250 mg tablet 10-11 00:00: 00 Yes 250mg Take 1 tablet by mouth 2 (two) times daily with meals. [facility] traMADOL (ULTRAM) 50 mg tablet 10-11 00:00: 00 Yes 50mg Take 1 tablet by mouth every 6 (six) hours as needed for Pain (scale 4-6). [facility] naproxen 250 mg tablet 10-11 00:00: 00 Yes 250mg Take 1 tablet by mouth 2 (two) times daily with meals. [facility] traMADOL (ULTRAM) 50 mg tablet 10-11 00:00: 00 Yes 50mg Take 1 tablet by mouth every 6 (six) hours as needed for Pain (scale 4-6). [facility] naproxen 250 mg tablet 10-11 00:00: 00 Yes 250mg Take 1 tablet by mouth 2 (two) times daily with meals. [facility] traMADOL (ULTRAM) 50 mg tablet 10-11 00:00: 00 Yes 50mg Take 1 tablet by mouth every 6 (six) hours as needed for Pain (scale 4-6). [facility] naproxen 250 mg tablet 10-11 00:00: 00 Yes 250mg Take 1 tablet by mouth 2 (two) times daily with meals. [facility] traMADOL (ULTRAM) 50 mg tablet 10-11 00:00: 00 Yes 50mg Take 1 tablet by mouth every 6 (six) hours as needed for Pain (scale 4-6). [facility] 10-11 00:00: 00 Yes 250mg Take 1 tablet by mouth 2 (two) times daily with meals. [facility] tra[facility]ADOL (ULTRAM) 50 mg tablet 10-11 00:00: 00 Yes 50mg Take 1 tablet by mouth every 6 (six) hours as needed for Pain (scale 4-6). [facility] nap[facility]en 250 mg tablet 10-11 00:00: 00 Yes 250mg Take 1 tablet by mouth 2 (two) times daily with meals. [facility] traMADOL (ULTRAM) 50 mg tablet 10-11 00:00: 00 Yes 50mg Take 1 tablet by mouth every 6 (six) hours as needed for Pain (scale 4-6). [facility] naproxen 250 mg tablet 10-11 00:00: 00 Yes 250mg Take 1 tablet by mouth 2 (two) times daily with meals. [facility] traMADOL (ULTRAM) 50 mg tablet 10-11 00:00: 00 Yes 50mg Take 1 tablet by mouth every 6 (six) hours as needed for Pain (scale 4-6). [facility] naproxen 250 mg tablet 10-11 00:00: 00 Yes 250mg Take 1 tablet by mouth 2 (two) times daily with meals. [facility] traMADOL (ULTRAM) 50 mg tablet 10-11 00:00: 00 Yes 50mg Take 1 tablet by mouth every 6 (six) hours as needed for Pain (scale 4-6). [facility] naproxen 250 mg tablet 10-11 00:00: 00 Yes 250mg Take 1 tablet by mouth 2 (two) times daily with meals. [facility] traMADOL (ULTRAM) 50 mg tablet 10-11 00:00: 00 Yes 50mg Take 1 tablet by mouth every 6 (six) hours as needed for Pain (scale 4-6). [facility] nap[facility]en 250 mg tablet 10-11 00:00: 00 Yes 250mg Take 1 tablet by mouth 2 (two) times daily with meals. [facility] cyclobenzap rine 5 mg tablet 10-11 00:00: 00 Yes 5mg Take 1 tablet by mouth 3 (three) times daily. [facility] naproxen 250 mg tablet 10-11 00:00: 00 Yes 250mg Take 1 tablet by mouth 2 (two) times daily with meals. [facility] traMADOL (ULTRAM) 50 mg tablet 10-11 00:00: 00 Yes 50mg Take 1 tablet by mouth every 6 (six) hours as needed for Pain (scale 4-6). [facility] naproxen 250 mg tablet 10-11 00:00: 00 Yes 250mg Take 1 tablet by mouth 2 (two) times daily with meals. [facility] naproxen 250 mg tablet 10-11 00:00: 00 Yes 250mg Take 1 tablet by mouth 2 (two) times daily with meals. [facility] naproxen 250 mg tablet 10-11 00:00: 00 Yes 250mg Take 1 tablet by mouth 2 (two) times daily with meals. [facility] naproxen 250 mg tablet 10-11 00:00: 00 Yes 250mg Take 1 tablet by mouth 2 (two) times daily with meals. [facility] naproxen 250 mg tablet 10-11 00:00: 00 Yes 250mg Take 1 tablet by mouth 2 (two) times daily with meals. [facility] naproxen 250 mg tablet 10-11 00:00: 00 Yes 250mg Take 1 tablet by mouth 2 (two) times daily with meals. [facility] cyclobenzap rine 5 mg tablet 10-11 00:00: 00 Yes 5mg Take 1 tablet by mouth 3 (three) times daily. [facility] traMADOL (ULTRAM) 50 mg tablet 10-11 00:00: 00 Yes 50mg Take 1 tablet by mouth every 6 (six) hours as needed for Pain (scale 4-6). [facility] naproxen 250 mg tablet 10-11 00:00: 00 Yes 250mg Take 1 tablet by mouth 2 (two) times daily with meals. [facility] traMADOL (ULTRAM) 50 mg tablet 10-11 00:00: 00 09-16 00:00 :00 No 50mg Take 1 tablet by mouth every 6 (six) hours as needed for Pain (scale 4-6). [facility] cyclobenzap rine 5 mg tablet 10-11 00:00: 00 09-26 00:00 :00 No 5mg Take 1 tablet by mouth 3 (three) times daily. [facility] Alprazolam Alprazolam 01-07 00:00: 00 Yes Stuart Morgan [address] [facility] Novolin R Regular U-100 Insulin 100 unit/mL injection solution 04-13 00:00: 00 No unit/mL Novolin R Regular U-100 Insulin 100 unit/mL injection solution 04-13 00:00: 00 No unit/mL Novolin R Regular U-100 Insulin 100 unit/mL injection solution 04-13 00:00: 00 No unit/mL Novolin R Regular U-100 Insulin 100 unit/mL injection solution 04-13 00:00: 00 No unit/mL Novolin R Regular U-100 Insulin 100 unit/mL injection solution 04-13 00:00: 00 No unit/mL Novolin R Regular U-100 Insulin 100 unit/mL injection solution 04-13 00:00: 00 No unit/mL Novolin R Regular U-100 Insulin 100 unit/mL injection solution 04-13 00:00: 00 No unit/mL Novolin R Regular U-100 Insulin 100 unit/mL injection solution 04-13 00:00: 00 No unit/mL Novolin R 100 unit/mL injection solution 03-07 00:00: 00 No unit/mL Novolin R 100 unit/mL injection solution 03-07 00:00: 00 No unit/mL Novolin R 100 unit/mL injection solution 03-07 00:00: 00 No unit/mL Novolin R 100 unit/mL injection solution 03-07 00:00: 00 No unit/mL Levemir U-100 Insulin 100 unit/mL subcutaneou s solution 0 4 00:00: 00 No 10unit/ mL Levemir U-100 Insulin 100 unit/mL subcutaneou s solution 0 01-07 00:00: 00 No 10unit/ mL Levemir U-100 Insulin 100 unit/mL subcutaneou s solution 0 01-07 00:00: 00 No 10unit/ mL Levemir U-100 Insulin 100 unit/mL subcutaneou s solution 0 01-07 00:00: 00 No 10unit/ mL Levemir 100 unit/mL subcutaneou s solution 0 15 00:00: 00 No 10unit/ mL Levemir 100 unit/mL subcutaneou s solution 0 12-19 00:00: 00 No 10unit/ mL Levemir 100 unit/mL subcutaneou s solution 0 12-19 00:00: 00 No 10unit/ mL Levemir 100 unit/mL subcutaneou s solution 0 12-19 00:00: 00 No 10unit/ mL metformin 500 mg tablet 12-13 00:00: 00 No 1mg amitriptyli ne 50 mg tablet 12-13 00:00: 00 No 1mg metformin 500 mg tablet 12-13 00:00: 00 No 1mg amitriptyli ne 50 mg tablet 12-13 00:00: 00 No 1mg metformin 500 mg tablet 12-13 00:00: 00 No 1mg amitriptyli ne 50 mg tablet 12-13 00:00: 00 No 1mg metformin 500 mg tablet 12-13 00:00: 00 No 1mg amitriptyli ne 50 mg tablet 12-13 00:00: 00 No 1mg metronidazo le 500 mg tablet 12-10 00:00: 00 No 1mg metronidazo le 500 mg tablet 12-10 00:00: 00 No 1mg metronidazo le 500 mg tablet 12-10 00:00: 00 No 1mg metronidazo le 500 mg tablet 12-10 00:00: 00 No 1mg Novolin R 100 unit/mL injection solution 12-06 00:00: 00 No unit/mL Novolin R 100 unit/mL injection solution 12-06 00:00: 00 No unit/mL Novolin R 100 unit/mL injection solution 12-06 00:00: 00 No unit/mL Novolin R 100 unit/mL injection solution 12-06 00:00: 00 No unit/mL Novolin R 100 unit/mL injection solution 12-06 00:00: 00 No unit/mL Novolin R 100 unit/mL injection solution 12-06 00:00: 00 No unit/mL Novolin R 100 unit/mL injection solution 12-06 00:00: 00 No unit/mL Novolin R 100 unit/mL injection solution 12-06 00:00: 00 No unit/mL Bactrim DS 800 mg-160 mg tablet 2015-10 00:00: 00 No 1mg amitriptyli ne 50 mg tablet 2015-10 00:00: 00 No 1mg Bactrim DS 800 mg-160 mg tablet 2015-10 00:00: 00 No 1mg amitriptyli ne 50 mg tablet 2015-10 00:00: 00 No 1mg Bactrim DS 800 mg-160 mg tablet 2015-10 00:00: 00 No 1mg amitriptyli ne 50 mg tablet 2015-10 00:00: 00 No 1mg Bactrim DS 800 mg-160 mg tablet 2015-10 00:00: 00 No 1mg amitriptyli ne 50 mg tablet 2015-10 00:00: 00 No 1mg Novolin R 100 unit/mL injection solution 2015-10 00:00: 00 No unit/mL Novolin R 100 unit/mL injection solution 2015-10 00:00: 00 No unit/mL Novolin R 100 unit/mL injection solution 2015-10 00:00: 00 No unit/mL Novolin R 100 unit/mL injection solution 2015-10 00:00: 00 No unit/mL Novolin R 100 unit/mL injection solution 2015-10 00:00: 00 No unit/mL Novolin R 100 unit/mL injection solution 2015-10 00:00: 00 No unit/mL Novolin R 100 unit/mL injection solution 2015-10 00:00: 00 No unit/mL Novolin R 100 unit/mL injection solution 2015-10 00:00: 00 No unit/mL Novolin R 100 unit/mL injection solution 2015-10 00:00: 00 No unit/mL Novolin R 100 unit/mL injection solution 2015-10 00:00: 00 No unit/mL Novolin R 100 unit/mL injection solution 2015-10 00:00: 00 No unit/mL Novolin R 100 unit/mL injection solution 2015-10 00:00: 00 No unit/mL amitriptyli ne 50 mg tablet 06-01 00:00: 00 No 1mg amitriptyli ne 50 mg tablet 06-01 00:00: 00 No 1mg amitriptyli ne 50 mg tablet 06-01 00:00: 00 No 1mg amitriptyli ne 50 mg tablet 06-01 00:00: 00 No 1mg metoclopram zeb 5 mg tablet 05-24 00:00: 00 No 1mg metoclopram zeb 5 mg tablet 05-24 00:00: 00 No 1mg metoclopram zeb 5 mg tablet 05-24 00:00: 00 No 1mg metoclopram zeb 5 mg tablet 05-24 00:00: 00 No 1mg proMETHazin e (PHENERGAN) 25 mg tablet 05-20 00:00: 00 Yes 25mg Take 1 tablet by mouth every 6 (six) hours as needed for Nausea and Vomiting (N/V). [facility] ranitidine (ZANTAC) 150 mg tablet 05-20 00:00: 00 Yes 150mg Take 1 tablet by mouth 2 (two) times daily. [facility] proMETHazin e (PHENERGAN) 25 mg tablet 05-20 00:00: 00 Yes 25mg Take 1 tablet by mouth every 6 (six) hours as needed for Nausea and Vomiting (N/V). [facility] ranitidine (ZANTAC) 150 mg tablet 05-20 00:00: 00 Yes 150mg Take 1 tablet by mouth 2 (two) times daily. [facility] proMETHazin e (PHENERGAN) 25 mg tablet 05-20 00:00: 00 Yes 25mg Take 1 tablet by mouth every 6 (six) hours as needed for Nausea and Vomiting (N/V). [facility] ranitidine (ZANTAC) 150 mg tablet 05-20 00:00: 00 Yes 150mg Take 1 tablet by mouth 2 (two) times daily. [facility] proMETHazin e (PHENERGAN) 25 mg tablet 05-20 00:00: 00 Yes 25mg Take 1 tablet by mouth every 6 (six) hours as needed for Nausea and Vomiting (N/V). [facility] ranitidine (ZANTAC) 150 mg tablet 05-20 00:00: 00 Yes 150mg Take 1 tablet by mouth 2 (two) times daily. [facility] proMETHazin e (PHENERGAN) 25 mg tablet 05-20 00:00: 00 Yes 25mg Take 1 tablet by mouth every 6 (six) hours as needed for Nausea and Vomiting (N/V). [facility] ranitidine (ZANTAC) 150 mg tablet 05-20 00:00: 00 Yes 150mg Take 1 tablet by mouth 2 (two) times daily. [facility] proMETHazin e (PHENERGAN) 25 mg tablet 05-20 00:00: 00 09-26 00:00 :00 No 25mg Take 1 tablet by mouth every 6 (six) hours as needed for Nausea and Vomiting (N/V). [facility] ranitidine (ZANTAC) 150 mg tablet 05-20 00:00: 00 09-26 00:00 :00 No 150mg Take 1 tablet by mouth 2 (two) times daily. [facility] cyclobenzap rine 5 mg tablet 04-12 00:00: 00 No 1mg cyclobenzap rine 5 mg tablet 04-12 00:00: 00 No 1mg cyclobenzap rine 5 mg tablet 04-12 00:00: 00 No 1mg cyclobenzap rine 5 mg tablet 04-12 00:00: 00 No 1mg Novolin R 100 unit/mL injection solution 04-06 00:00: 00 No unit/mL Novolin R 100 unit/mL injection solution 04-06 00:00: 00 No unit/mL Novolin R 100 unit/mL injection solution 04-06 00:00: 00 No unit/mL Novolin R 100 unit/mL injection solution 04-06 00:00: 00 No unit/mL METFORMIN HCL (METFORMIN ORAL) 12-25 23:42: 52 Yes Take by mouth. [facility] INSULIN REGULAR HUMAN SC 12-25 23:42: 52 Yes inject under the skin. [facility] gabapentin (NEURONTIN) 300 mg capsule 12-25 23:42: 52 Yes 300mg Take 300 mg by mouth 3 (three) times daily. [facility] METFORMIN HCL (METFORMIN ORAL) 12-25 23:42: 52 Yes Take by mouth. [facility] INSULIN REGULAR HUMAN SC 12-25 23:42: 52 Yes inject under the skin. [facility] gabapentin (NEURONTIN) 300 mg capsule 12-25 23:42: 52 Yes 300mg Take 300 mg by mouth 3 (three) times daily. [facility] METFORMIN HCL (METFORMIN ORAL) 12-25 23:42: 52 Yes Take by mouth. [facility] INSULIN REGULAR HUMAN SC 12-25 23:42: 52 Yes inject under the skin. [facility] gabapentin (NEURONTIN) 300 mg capsule 12-25 23:42: 52 Yes 300mg Take 300 mg by mouth 3 (three) times daily. [facility] METFORMIN HCL (METFORMIN ORAL) 12-25 23:42: 52 Yes Take by mouth. [facility] INSULIN REGULAR HUMAN SC 12-25 23:42: 52 Yes inject under the skin. [facility] gabapentin (NEURONTIN) 300 mg capsule 12-25 23:42: 52 Yes 300mg Take 300 mg by mouth 3 (three) times daily. [facility] METFORMIN HCL (METFORMIN ORAL) 12-25 23:42: 52 Yes Take by mouth. [facility] INSULIN REGULAR HUMAN SC 12-25 23:42: 52 Yes inject under the skin. [facility] gabapentin (NEURONTIN) 300 mg capsule 12-25 23:42: 52 Yes 300mg Take 300 mg by mouth 3 (three) times daily. [facility] METFORMIN HCL (METFORMIN ORAL) 12-25 23:42: 52 Yes Take by mouth. [facility] INSULIN REGULAR HUMAN SC 12-25 23:42: 52 Yes inject under the skin. [facility] gabapentin (NEURONTIN) 300 mg capsule 12-25 23:42: 52 Yes 300mg Take 300 mg by mouth 3 (three) times daily. [facility] METFORMIN HCL (METFORMIN ORAL) 12-25 23:42: 52 Yes Take by mouth. [facility] INSULIN REGULAR HUMAN SC 12-25 23:42: 52 Yes inject under the skin. [facility] gabapentin (NEURONTIN) 300 mg capsule 12-25 23:42: 52 Yes 300mg Take 300 mg by mouth 3 (three) times daily. [facility] METFORMIN HCL (METFORMIN ORAL) 12-25 23:42: 52 Yes Take by mouth. [facility] INSULIN REGULAR HUMAN SC 12-25 23:42: 52 Yes inject under the skin. [facility] gabapentin (NEURONTIN) 300 mg capsule 12-25 23:42: 52 Yes 300mg Take 300 mg by mouth 3 (three) times daily. [facility] METFORMIN HCL (METFORMIN ORAL) 12-25 23:42: 52 Yes Take by mouth. [facility] INSULIN REGULAR HUMAN SC 12-25 23:42: 52 Yes inject under the skin. [facility] gabapentin (NEURONTIN) 300 mg capsule 12-25 23:42: 52 Yes 300mg Take 300 mg by mouth 3 (three) times daily. [facility] METFORMIN HCL (METFORMIN ORAL) 12-25 18:42: 52 Yes Take by mouth. [facility] INSULIN REGULAR HUMAN SC 12-25 18:42: 52 Yes inject under the skin. [facility] METFORMIN HCL (METFORMIN ORAL) 12-25 18:42: 52 Yes Take by mouth. [facility] INSULIN REGULAR HUMAN SC 12-25 18:42: 52 Yes inject under the skin. [facility] gabapentin (NEURONTIN) 300 mg capsule 12-25 18:42: 52 Yes 300mg Take 300 mg by mouth 3 (three) times daily. [facility] gabapentin (NEURONTIN) 300 mg capsule 12-25 18:42: 52 Yes 300mg Take 300 mg by mouth 3 (three) times daily. [facility] METFORMIN HCL (METFORMIN ORAL) 12-25 18:42: 52 Yes Take by mouth. [facility] INSULIN REGULAR HUMAN SC 12-25 18:42: 52 Yes inject under the skin. [facility] gabapentin (NEURONTIN) 300 mg capsule 12-25 18:42: 52 Yes 300mg Take 300 mg by mouth 3 (three) times daily. [facility] METFORMIN HCL (METFORMIN ORAL) 12-25 18:42: 52 Yes Take by mouth. [facility] INSULIN REGULAR HUMAN SC 12-25 18:42: 52 Yes inject under the skin. [facility] gabapentin (NEURONTIN) 300 mg capsule 12-25 18:42: 52 Yes 300mg Take 300 mg by mouth 3 (three) times daily. [facility] [facility] METFORMIN HCL (METFORMIN ORAL) 12-25 18:42: 52 Yes Take by mouth. [facility] INSULIN REGULAR HUMAN SC 12-25 18:42: 52 Yes inject under the skin. [facility] gabapentin (NEURONTIN) 300 mg capsule 12-25 18:42: 52 Yes 300mg Take 300 mg by mouth 3 (three) times daily. [facility] METFORMIN HCL (METFORMIN ORAL) 12-25 18:42: 52 Yes Take by mouth. [facility] INSULIN REGULAR HUMAN SC 12-25 18:42: 52 Yes inject under the skin. [facility] gabapentin (NEURONTIN) 300 mg capsule 12-25 18:42: 52 Yes 300mg Take 300 mg by mouth 3 (three) times daily. [facility] METFORMIN HCL (METFORMIN ORAL) 12-25 18:42: 52 Yes Take by mouth. [facility] INSULIN REGULAR HUMAN SC 12-25 18:42: 52 Yes inject under the skin. [facility] gabapentin (NEURONTIN) 300 mg capsule 12-25 18:42: 52 Yes 300mg Take 300 mg by mouth 3 (three) times daily. [facility] METFORMIN HCL (METFORMIN ORAL) 12-25 18:42: 52 Yes Take by mouth. [facility] INSULIN REGULAR HUMAN SC 12-25 18:42: 52 Yes inject under the skin. [facility] gabapentin (NEURONTIN) 300 mg capsule 12-25 18:42: 52 Yes 300mg Take 300 mg by mouth 3 (three) times daily. [facility] METFORMIN HCL (METFORMIN ORAL) 12-25 18:42: 52 Yes Take by mouth. [facility] INSULIN REGULAR HUMAN SC 12-25 18:42: 52 Yes inject under the skin. [facility] gabapentin (NEURONTIN) 300 mg capsule 12-25 18:42: 52 Yes 300mg Take 300 mg by mouth 3 (three) times daily. [facility] METFORMIN HCL (METFORMIN ORAL) 12-25 18:42: 52 Yes Take by mouth. [facility] INSULIN REGULAR HUMAN SC 12-25 18:42: 52 Yes inject under the skin. [facility] gabapentin (NEURONTIN) 300 mg capsule 12-25 18:42: 52 Yes 300mg Take 300 mg by mouth 3 (three) times daily. [facility] METFORMIN HCL (METFORMIN ORAL) 12-25 18:42: 52 Yes Take by mouth. [facility] INSULIN REGULAR HUMAN SC 12-25 18:42: 52 Yes inject under the skin. [facility] gabapentin (NEURONTIN) 300 mg capsule 12-25 18:42: 52 Yes 300mg Take 300 mg by mouth 3 (three) times daily. [facility] cyclobenzap rine 5 mg tablet 11-23 00:00: 00 No 1mg gabapentin 100 mg capsule 11-23 00:00: 00 No 1mg metformin 500 mg tablet 11-23 00:00: 00 No 1mg cyclobenzap rine 5 mg tablet 11-23 00:00: 00 No 1mg gabapentin 100 mg capsule 11-23 00:00: 00 No 1mg metformin 500 mg tablet 11-23 00:00: 00 No 1mg cyclobenzap rine 5 mg tablet 11-23 00:00: 00 No 1mg gabapentin 100 mg capsule 11-23 00:00: 00 No 1mg metformin 500 mg tablet 11-23 00:00: 00 No 1mg cyclobenzap rine 5 mg tablet 11-23 00:00: 00 No 1mg gabapentin 100 mg capsule 11-23 00:00: 00 No 1mg metformin 500 mg tablet 11-23 00:00: 00 No 1mg azithromyci n 250 mg tablet 2014-10 00:00: 00 No 1mg azithromyci n 250 mg tablet 2014-10 00:00: 00 No 1mg azithromyci n 250 mg tablet 2014-10 00:00: 00 No 1mg azithromyci n 250 mg tablet 2014-10 00:00: 00 No 1mg cyclobenzap rine 5 mg tablet 11-16 00:00: 00 No 1mg cyclobenzap rine 5 mg tablet 11-16 00:00: 00 No 1mg cyclobenzap rine 5 mg tablet 11-16 00:00: 00 No 1mg cyclobenzap rine 5 mg tablet 11-16 00:00: 00 No 1mg gabapentin 100 mg capsule 11-10 00:00: 00 No 1mg gabapentin 100 mg capsule 11-10 00:00: 00 No 1mg gabapentin 100 mg capsule 11-10 00:00: 00 No 1mg gabapentin 100 mg capsule 11-10 00:00: 00 No 1mg Naproxen 500 MG oral Tablet 12-12 00:00: 00 10-14 00:00 :00 No 500mg Take 1 tablet (500 mg total) by mouth in the morning and 1 tablet (500 mg total) in the evening. Take with meals. Shelby Olvera - Externa l Childrens Gummies Childrens Gummies Yes Stuart Eddie [address] [facility] Lantus Lantus Yes Stuart Eddie [address] [facility] Amitriptyli ne HCl Amitriptyli ne HCl Yes Stuart Eddie not defined [facility] B-12 B-12 Yes Stuart Eddie not defined [facility] Cyclobenzap rine HCl Cyclobenzap rine HCl Yes Stuart Eddie [address] [facility] Gabapentin Gabapentin Yes Stuart Eddie [address] [facility] Immunizations Ordered Immunization Name Filled Immunization Name Date Status Comments Source Hepatitis B, Adult (3 dose) Unknown Completed Shelby Olvera - External Hepatitis B, Adult (3 dose) Unknown Completed Shelby Ruth External Hepatitis B, Adult (3 dose) Unknown Completed Shelby Ruth External Tdap- (Boostrix, Adacel) Unknown Completed Shelby Ruth External Vital Signs Vital Name Observation Time Observation Value Comments S ource Systolic blood pressure 2023-10-14 15:33:00 124 mm[Hg] Shelby Reina ld - External Diastolic blood pressure 2023-10-14 15:33:00 70 mm[Hg] Shelby Reina ld - External Heart rate 2023-10-14 14:52:00 88 /min Rosenda Olvera - External Body temperature 2023-10-14 14:52:00 36.39 [place] Shelby Olvera - External Respiratory rate 2023-10-14 14:52:00 20 /min Shelby Olvera - External Body height 2023-10-14 14:52:00 157.5 cm Fauzia barkley Seybyoli - External Body weight 2023-10-14 14:52:00 77.565 kg Fauzia barkley [place] - External BMI 2023-10-14 14:52:00 31.28 kg/m2 Fauzia Olvera - External Oxygen saturation in Arterial blood by Pulse oximetry 2023-10-14 14:52:00 99 /min Shelby Reina ld - External Systolic blood pressure 2023-02-08 13:34:00 163 mm[Hg] [facility] Diastolic blood pressure 2023-02-08 13:34:00 85 mm[Hg] [facility] Heart rate 2023-02-08 13:34:00 88 /[facility] Body temperature 2023-02-08 13:34:00 37.39 [place] [facility] Respiratory rate 2023-02-08 13:34:00 16 /min [facility] Body height 2023-02-08 13:34:00 157.5 cm [facility] Body weight 2023-02-08 13:34:00 73.936 kg [facility] BMI 2023-02-08 13:34:00 29.81 kg/m2 [facility] Oxygen saturation in Arterial blood by Pulse oximetry 2023-02-08 13:34:00 99 /min [facility] Systolic blood pressure 2022-11-28 22:30:00 107 mm[Hg] [facility] Diastolic blood pressure 2022-11-28 22:30:00 74 mm[Hg] [facility] Heart rate 2022-11-28 22:30:00 99 /min [facility] Body temperature 2022-11-28 22:30:00 37.11 [place] [facility] Respiratory rate 2022-11-28 22:30:00 18 /min [facility] Body height 2022-11-28 22:30:00 157.5 cm [facility] Body weight 2022-11-28 22:30:00 73.483 kg [facility] BMI 2022-11-28 22:30:00 29.63 kg/m2 [facility] Oxygen saturation in Arterial blood by Pulse oximetry 2022-11-28 22:30:00 98 /min [facility] Systolic blood pressure 2022-09-16 20:56:00 144 mm[Hg] [facility] Diastolic blood pressure 2022-09-16 20:56:00 80 mm[Hg] [facility] Heart rate 2022-09-16 20:56:00 83 /min [facility] Body temperature 2022-09-16 20:56:00 37.11 [place] [facility] Respiratory rate 2022-09-16 20:56:00 20 /min [facility] Oxygen saturation in Arterial blood by Pulse oximetry 2022-09-16 20:56:00 97 /min [facility] Systolic blood pressure 2022-06-26 02:00:00 129 mm[Hg] [facility] Diastolic blood pressure 2022-06-26 02:00:00 71 mm[Hg] [facility] Heart rate 2022-06-26 02:00:00 60 /min [facility] Respiratory rate 2022-06-26 02:00:00 18 /min [facility] Oxygen saturation in Arterial blood by Pulse oximetry 2022-06-26 02:00:00 98 /min [facility] Body temperature 2022-06-26 01:13:00 36.78 [place] [facility] Body height 2022-06-26 01:13:00 157.5 cm [facility] Body weight 2022-06-26 01:13:00 71.668 kg [facility] BMI 2022-06-26 01:13:00 28.90 kg/m2 [facility] Systolic blood pressure 2021-12-07 06:15:00 134 mm[Hg] [facility] Diastolic blood pressure 2021-12-07 06:15:00 72 mm[Hg] [facility] Heart rate 2021-12-07 06:15:00 73 /min [facility] Respiratory rate 2021-12-07 06:15:00 16 /min [facility] Oxygen saturation in Arterial blood by Pulse oximetry 2021-12-07 06:15:00 100 /min [facility] Body temperature 2021-12-07 03:30:00 36.94 [place] [facility] Body height 2021-12-07 03:30:00 157.5 cm [facility] 2021-12-07 03:30:00 70.308 kg Univ [facility] BMI 2021-12-07 03:30:00 28.35 kg/m2 [facility] Heart rate 2021-03-05 22:21:00 76 /min [facility] Body temperature 2021-03-05 22:21:00 37.17 [place] [facility] Respiratory rate 2021-03-05 22:21:00 16 /min [facility] Body height 2021-03-05 22:21:00 154.9 cm [facility] Body weight 2021-03-05 22:21:00 76.204 kg Univ [facility] BMI 2021-03-05 22:21:00 31.74 kg/m2 [facility] Oxygen saturation in Arterial blood by Pulse oximetry 2021-03-05 22:21:00 97 /min [facility] Systolic blood pressure 2020-12-17 17:14:00 136 mm[Hg] [facility] Diastolic blood pressure 2020-12-17 17:14:00 75 mm[Hg] [facility] Heart rate 2020-12-17 17:14:00 92 /min [facility] Body temperature 2020-12-17 17:14:00 36.61 [place] [facility] Respiratory rate 2020-12-17 17:14:00 20 /min [facility] Body weight 2020-12-17 17:14:00 77.111 kg [facility] BMI 2020-12-17 17:14:00 31.09 kg/m2 [facility] Oxygen saturation in Arterial blood by Pulse oximetry 2020-12-17 17:14:00 95 /min [facility] Systolic blood pressure 2020-10-30 14:30:00 156 mm[Hg] [facility] Diastolic blood pressure 2020-10-30 14:30:00 80 mm[Hg] [facility] Heart rate 2020-10-30 14:30:00 99 /min [facility] Respiratory rate 2020-10-30 14:30:00 20 /min [facility] Oxygen saturation in Arterial blood by Pulse oximetry 2020-10-30 14:30:00 100 /min [facility] Body temperature 2020-10-30 12:32:00 37.56 [place] [facility] Body height 2020-10-30 12:32:00 157.5 cm [facility] Body weight 2020-10-30 12:32:00 77.111 kg [facility] BMI 2020-10-30 12:32:00 31.09 kg/m2 [facility] Systolic blood pressure 2020-09-27 01:05:00 152 mm[Hg] [facility] Diastolic blood pressure 2020-09-27 01:05:00 89 mm[Hg] [facility] Heart rate 2020-09-27 01:05:00 90 /min [facility] Respiratory rate 2020-09-27 01:05:00 16 /min [facility] Oxygen saturation in Arterial blood by Pulse oximetry 2020-09-27 01:05:00 99 /min [facility] Body temperature 2020-09-26 21:20:00 37.28 [place] [facility] Body height 2020-09-26 21:20:00 157.5 cm [facility] Body weight 2020-09-26 21:20:00 74.844 kg [facility] BMI 2020-09-26 21:20:00 30.18 kg/m2 [facility] Systolic blood pressure 2020-09-02 02:30:00 125 mm[Hg] [facility] Diastolic blood pressure 2020-09-02 02:30:00 66 mm[Hg] [facility] Heart rate 2020-09-02 02:30:00 106 /min [facility] Respiratory rate 2020-09-02 02:30:00 18 /min [facility] Oxygen saturation in Arterial blood by Pulse oximetry 2020-09-02 02:30:00 97 /min [facility] Body temperature 2020-09-02 00:02:31 38.5 [place] [facility] Body height 2020-09-01 22:28:00 154.9 cm [facility] Body weight 2020-09-01 22:28:00 74.39 kg [facility] BMI 2020-09-01 22:28:00 30.99 kg/m2 [facility] Oxygen saturation in Arterial blood by Pulse oximetry 2020-07-26 04:45:00 95 /min [facility] Systolic blood pressure 2020-07-26 04:45:00 132 mm[Hg] [facility] Diastolic blood pressure 2020-07-26 04:45:00 77 mm[Hg] [facility] Heart rate 2020-07-26 04:45:00 92 /min [facility] Respiratory rate 2020-07-26 03:00:00 20 /min [facility] Body temperature 2020-07-26 01:24:00 37.72 [place] [facility] Body height 2020-07-26 01:24:00 154.9 cm [facility] Body weight 2020-07-26 01:24:00 77.111 kg [facility] BMI 2020-07-26 01:24:00 32.12 kg/m2 [facility] BP Systolic 2022-10-23 17:07:00 164 mm[Hg] BP Diastolic 2022-10-23 17:07:00 89 mm[Hg] Weight Measured 2022-10-23 17:07:00 163.00 pounds Height Measured 2022-10-23 17:07:00 62.50 inches Body Temperature 2022-10-23 17:07:00 98.30 degrees Heart Rate 2022-10-23 17:07:00 90.00 /min Respiratory Rate 2022-10-23 17:07:00 18.00 /min BP Systolic 2022-07-02 16:38:00 159 mm[Hg] BP Diastolic 2022-07-02 16:38:00 83 mm[Hg] Weight Measured 2022-07-02 16:38:00 165.80 pounds Height Measured 2022-07-02 16:38:00 62.50 inches Body Temperature 2022-07-02 16:38:00 98.10 degrees Heart Rate 2022-07-02 16:38:00 74.00 /min Respiratory Rate 2022-07-02 16:38:00 17.00 /min BP Systolic 2022-06-05 08:31:00 124 mm[Hg] BP Diastolic 2022-06-05 08:31:00 80 mm[Hg] Weight Measured 2022-06-05 08:31:00 157.00 pounds Height Measured 2022-06-05 08:31:00 62.50 inches Body Temperature 2022-06-05 08:31:00 98.20 degrees Heart Rate 2022-06-05 08:31:00 71.00 /min Respiratory Rate 2022-06-05 08:31:00 16.00 /min BP Systolic 2022-05-07 11:54:00 136 mm[Hg] BP Diastolic 2022-05-07 11:54:00 86 mm[Hg] Weight Measured 2022-05-07 11:54:00 157.40 pounds Height Measured 2022-05-07 11:54:00 62.50 inches Body Temperature 2022-05-07 11:54:00 98.10 degrees Heart Rate 2022-05-07 11:54:00 74.00 /min Respiratory Rate 2022-05-07 11:54:00 18.00 /min BP Systolic 2021-09-07 14:56:00 146 mm[Hg] BP Diastolic 2021-09-07 14:56:00 78 mm[Hg] Weight Measured 2021-09-07 14:56:00 161.80 pounds Height Measured 2021-09-07 14:56:00 62.50 inches Body Temperature 2021-09-07 14:56:00 98.40 degrees Heart Rate 2021-09-07 14:56:00 80.00 /min Respiratory Rate 2021-09-07 14:56:00 BP Systolic 2021-07-19 17:26:00 158 mm[Hg] BP Diastolic 2021-07-19 17:26:00 90 mm[Hg] Weight Measured 2021-07-19 17:26:00 163.40 pounds Height Measured 2021-07-19 17:26:00 62.50 inches Body Temperature 2021-07-19 17:26:00 98.00 degrees Heart Rate 2021-07-19 17:26:00 92.00 /min Respiratory Rate 2021-07-19 17:26:00 16.00 /min BP Systolic 2021-07-12 14:57:00 139 mm[Hg] BP Diastolic 2021-07-12 14:57:00 81 mm[Hg] Weight Measured 2021-07-12 14:57:00 164.80 pounds Height Measured 2021-07-12 14:57:00 62.50 inches Body Temperature 2021-07-12 14:57:00 98.40 degrees Heart Rate 2021-07-12 14:57:00 77.00 /min Respiratory Rate 2021-07-12 14:57:00 BP Systolic 2021-06-05 14:52:00 144 mm[Hg] BP Diastolic 2021-06-05 14:52:00 80 mm[Hg] Weight Measured 2021-06-05 14:52:00 166.90 pounds Height Measured 2021-06-05 14:52:00 62.50 inches Body Temperature 2021-06-05 14:52:00 98.60 degrees Heart Rate 2021-06-05 14:52:00 78.00 /min Respiratory Rate 2021-06-05 14:52:00 BP Systolic 2021-05-30 11:24:00 126 mm[Hg] BP Diastolic 2021-05-30 11:24:00 80 mm[Hg] Weight Measured 2021-05-30 11:24:00 167.00 pounds Height Measured 2021-05-30 11:24:00 62.50 inches Body Temperature 2021-05-30 11:24:00 98.40 degrees Heart Rate 2021-05-30 11:24:00 83.00 /min Respiratory Rate 2021-05-30 11:24:00 16.00 /min BP Systolic 2021-04-22 13:42:00 125 mm[Hg] BP Diastolic 2021-04-22 13:42:00 81 mm[Hg] Weight Measured 2021-04-22 13:42:00 168.70 pounds Height Measured 2021-04-22 13:42:00 62.50 inches Body Temperature 2021-04-22 13:42:00 98.50 degrees Heart Rate 2021-04-22 13:42:00 87.00 /min Respiratory Rate 2021-04-22 13:42:00 18.00 /min BP Systolic 2021-03-28 14:37:00 138 mm[Hg] BP Diastolic 2021-03-28 14:37:00 78 mm[Hg] Weight Measured 2021-03-28 14:37:00 170.20 pounds Height Measured 2021-03-28 14:37:00 62.50 inches Body Temperature 2021-03-28 14:37:00 98.10 degrees Heart Rate 2021-03-28 14:37:00 87.00 /min Respiratory Rate 2021-03-28 14:37:00 16.00 /min BP Systolic 2021-03-01 10:42:00 128 mm[Hg] BP Diastolic 2021-03-01 10:42:00 77 mm[Hg] Weight Measured 2021-03-01 10:42:00 168.80 pounds Height Measured 2021-03-01 10:42:00 62.00 inches Body Temperature 2021-03-01 10:42:00 98.40 degrees Heart Rate 2021-03-01 10:42:00 91.00 /min Respiratory Rate 2021-03-01 10:42:00 18.00 /min BP Systolic 2021-01-18 08:24:00 150 mm[Hg] BP Diastolic 2021-01-18 08:24:00 83 mm[Hg] Weight Measured 2021-01-18 08:24:00 172.60 pounds Height Measured 2021-01-18 08:24:00 62.00 inches Body Temperature 2021-01-18 08:24:00 98.70 degrees Heart Rate 2021-01-18 08:24:00 83.00 /min Respiratory Rate 2021-01-18 08:24:00 16.00 /min Procedures Procedure Date / Time Performed Performing Clinician Source AUTHORIZATION FOR RELEASE OF PHI 2023-04-26 05:01:00 Doctor Unassigned, [place] [facility] AUTHORIZATION FOR RELEASE OF PHI 2023-04-17 05:01:00 Doctor Unassigned, [place] [facility] XR KNEE 3 VW LEFT 2023-02-08 15:25:16 Maricarmen Sanchez [facility] CONSENT/REFUSAL FOR DIAGNOSIS AND TREATMENT 2023-02-08 13:25:51 Doctor Unassigned, [place] [facility] XR HIPS 3 VW LEFT 2022-11-28 23:35:00 John Kamara [facility] CONSENT/REFUSAL FOR DIAGNOSIS AND TREATMENT 2022-11-28 22:22:03 Doctor Unassigned, [place] [facility] LIPASE 2022-09-16 23:46:00 Dannielle Arechiga [facility] TEST, SERUM 2022-09-16 23:46:00 Johnathon Arechiga [facility] COMP. METABOLIC PANEL ([id number]) 2022-09-16 23:46:00 Dannielle Arechiga [facility] CBC WITH DIFF 2022-09-16 23:46:[address] [facility] URINALYSIS 2022-09-16 22:26:00 Dannielle Arechiga [facility] CONSENT/REFUSAL FOR DIAGNOSIS AND TREATMENT 2022-09-16 20:45:39 Doctor Unassigned, [place] [facility] XR CHEST 2 VW 2022-06-26 02:03:35 Ebenezer Helm Un [facility] XR FOOT 3+ VW BILATERAL 2022-06-26 02:03:35 Tyshawn Helm [facility] COMP. METABOLIC PANEL ([id number]) 2022-06-26 01:33:00 Ebenezer Helm [facility] CBC WITH DIFF 2022-06-26 01:33:00 [facility] 2022-06-26 01:33:[address] [facility] N-TERMINAL PRO-BNP 2022-06-26 01:33:00 Ebenezer Helm [facility] CONSENT/REFUSAL FOR DIAGNOSIS AND TREATMENT 2022-06-26 01:04:33 Doctor Unassigned, [place] [facility] CONSENT/REFUSAL FOR DIAGNOSIS AND TREATMENT 2022-04-10 03:01:56 Doctor Unassigned, [place] [facility] POCT GLUCOSE (AUTOMATED) 2021-12-07 06:58:00 Eladio Monsivais [facility] CT MAXILLOFACIAL/MANDIBLE WO CONTRAST 2021-12-07 05:31:00 Eladio Monsivais [facility] CT HEAD WO CONTRAST 2021-12-07 05:31:00 Eladio Monsivais [facility] XR CHEST 1 VW 2021-12-07 05:28:[address] [facility] XR HAND 3+ VW LEFT 2021-12-07 05:28:00 Eladio Monsivais [facility] POCT GLUCOSE (AUTOMATED) 2021-12-07 04:51:00 Eladio Monsivais [facility] URINALYSIS 2021-12-07 04:06:00 Eladio Monsivais [facility] TROPONIN I 2021-12-07 03:58:00 Eladio Monsivais [facility] COMP. METABOLIC PANEL ([id number]) 2021-12-07 03:58:00 Eladio Monsivais [facility] CBC WITH DIFF 2021-12-07 03:58:[address] [facility] PROTHROMBIN TIME / INR 2021-12-07 03:58:00 Júnior Monsivais [facility] NOTICE OF PRIVACY PRACTICES 2021-12-07 03:20:07 Doctor Unassigned, [place] [facility] CONSENT/REFUSAL FOR DIAGNOSIS AND TREATMENT 2021-12-07 03:18:34 Doctor Unassigned, [place] [facility] XR ANKLE 3+ VW LEFT 2021-03-05 22:58:39 Vonnie Nathan [facility] CONSENT/REFUSAL FOR DIAGNOSIS AND TREATMENT 2021-03-05 22:02:12 Doctor Unassigned, [place] [facility] XR ABDOMEN ACUTE SERIES 2020-12-17 18:13:15 Do deanne Jeffery [facility] LIPASE 2020-12-17 17:46:00 Hermilo Jeffery [facility] HEPATIC FUNCTION PANEL ([id number]) (ALB,T.PRO,BILI T,BU/BC,ALT,AST,ALK PHOS) 2020-12-17 17:46:00 Hermilo Jeffery [facility] BASIC METABOLIC PANEL (NA, K, CL, CO2, GLUCOSE, BUN, CREATININE, CA) 2020-12-17 17:46:00 Hermilo Jeffery [facility] CBC WITH DIFF 2020-12-17 17:46:00 Hermilo Jeffery [facility] PROTHROMBIN TIME / INR 2020-12-17 17:46:00 Galindo Jeffery [facility] ACTIVATED PARTIAL THRMPLAS RUBIO 2020-12-17 17:46:00 Hermilo Jeffery [facility] URINALYSIS 2020-12-17 17:46:00 Hermilo Jeffery [facility] COVID-19 (ID NOW RAPID TESTING) 2020-12-17 17:46:00 Hermilo Jeffery [facility] NOTICE OF PRIVACY PRACTICES 2020-12-17 17:07:59 Doctor Unassigned, [place] [facility] CONSENT/REFUSAL FOR DIAGNOSIS AND TREATMENT 2020-12-17 17:07:25 Doctor Unassigned, [place] [facility] CT CHEST PULMONARY ANGIOGRAM 2020-10-30 14:24:45 John Kamara [facility] POCT TEST 2020-10-30 14:14:00 Truong Kamara [facility] XR CHEST 1 VW 2020-10-30 13:04:14 Kt Ratliff [facility] TEST, SERUM 2020-10-30 12:49:00 Faisal Ratliff [facility] TROPONIN I 2020-10-30 12:49:[address] [facility] HEPATIC FUNCTION PANEL ([id number]) (ALB,T.PRO,BILI T,BU/BC,ALT,AST,ALK PHOS) 2020-10-30 12:49:00 Kt Ratliff [facility] BASIC METABOLIC PANEL (NA, K, CL, CO2, GLUCOSE, BUN, CREATININE, CA) 2020-10-30 12:49:00 Kt Ratliff [facility] CBC WITH DIFF 2020-10-30 12:49:00 [facility] / INR 2020-10-30 12:49:00 Sukumar Ratliff [facility] D-DIMER 2020-10-30 12:49:00 Kt Ratliff [facility] ACTIVATED PARTIAL THRMPLAS RUBIO 2020-10-30 12:49:00 Kt Ratliff [facility] RAPID STREP SCREEN FOR GROUP A 2020-10-30 12:49:00 Kt Ratliff [facility] ADC,CLC OR LCC ONLY - INFLUENZA A & B DIRECT ANTIGEN 2020-10-30 12:49:00 Kt Ratliff [facility] COVID-19 (ID NOW RAPID TESTING) 2020-10-30 12:49:00 Kt Ratliff [facility] NOTICE OF PRIVACY PRACTICES 2020-10-30 12:21:16 Doctor Unassigned, [place] [facility] CONSENT/REFUSAL FOR DIAGNOSIS AND TREATMENT 2020-10-30 12:21:04 Doctor Unassigned, [place] [facility] URINALYSIS 2020-09-26 22:51:00 Carie Chanel [facility] XR CHEST 1 VW 2020-09-26 22:03:[address] [facility] LIPASE 2020-09-26 21:51:00 Carie Chanel [facility] TROPONIN I 2020-09-26 21:51:00 Carie Chanel [facility] COMP. METABOLIC PANEL ([id number]) 2020-09-26 21:51:00 Carie Chanel [facility] CBC WITH DIFF 2020-09-26 21:51:00 Carie Chanel [facility] N-TERMINAL PRO-BNP 2020-09-26 21:51:00 Carie Chanel [facility] CONSENT/REFUSAL FOR DIAGNOSIS AND TREATMENT 2020-09-26 21:08:31 Doctor Unassigned, [place] [facility] CT CHEST PULMONARY ANGIOGRAM 2020-09-02 02:01:09 Luisito Chavis [facility] D-DIMER 2020-09-02 00:29:00 Luisito [facility] XR CHEST 1 VW 2020-09-01 23:08:31 Luisito Chavis [facility] POCT TEST 2020-09-01 22:52:00 Luisito Chavis [facility] BLOOD CULTURE SCREEN 2020-09-01 22:47:00 Luisito Chavis [facility] COMP. METABOLIC PANEL ([id number]) 2020-09-01 22:47:00 Luisito Chavis [facility] CBC WITH DIFF 2020-09-01 22:47:00 Luisito Chavis [facility] URINALYSIS 2020-09-01 22:47:00 Luisito [facility]avis [facility] ADC,CLC OR L[facility] ONLY - INFLUENZA A & B DIRECT ANTIGEN 2020-09-01 22:47:00 Luisito Chavis [facility] N-TERMINAL PRO-BNP 2020-09-01 22:47:00 Luisito Chavis [facility] LACTIC ACID WHOLE BLOOD 2020-09-01 22:47:00 Me hussein Chavis [facility] COVID-19 (ID NOW RAPID TESTING) 2020-09-01 22:47:00 Luisito Chavis [facility] NOTICE OF PRIVACY PRACTICES 2020-09-01 22:31:34 Doctor Unassigned, [place] [facility] CONSENT/REFUSAL FOR DIAGNOSIS AND TREATMENT 2020-09-01 22:18:34 Doctor Unassigned, [place] [facility] CT ABDOMEN PELVIS W CONTRAST 2020-07-26 04:10:32 Yolanda Bass [facility] LIPASE 2020-07-26 02:16:00 Yolanda Bass [facility] COMP. METABOLIC PANEL ([id number]) 2020-07-26 02:16:00 Yolanda Bass [facility] CBC WITH DIFF 2020-07-26 02:16:[address] [facility] URINALYSIS 2020-07-26 02:16:00 Yolanda Bass [facility] EKG-12 LEAD 2020-07-26 02:00:35 Yolanda Bass [facility] NOTICE OF PRIVACY PRACTICES 2020-07-26 00:35:41 Doctor Unassigned, [place] [facility] CONSENT/REFUSAL FOR DIAGNOSIS AND TREATMENT 2020-07-26 00:35:21 Doctor Unassigned, [place] [facility] REFERRAL- REQUEST/RESPONSE 2020-07-05 05:01:00 Doctor Unassigned, [place] [facility] Plan of Care Planned Activity Planned Date Details Comments Source Goal Plan of Care Note [code = 93958-0] Goal Plan of Care Note [code = 47893-7] Goal Plan of Care Note [code = 90373-2] Goal Plan of Care Note [code = 93258-7] Goal Plan of Care Note [code = 99368-4] Goal Plan of Care Note [code = 19156-7] Goal Plan of Care Note [code = 65303-6] Goal Plan of Care Note [code = 02001-1] Goal Plan of Care Note [code = 19239-6] Goal Plan of Care Note [code = 19059-4] Goal Plan of Care Note [code = 72412-8] Goal Plan of Care Note [code = 86776-2] Goal Plan of Care Note [code = 94709-5] Goal Plan of Care Note [code = 15098-7] Goal Plan of Care Note [code = 90717-8] Goal Plan of Care Note [code = 68544-3] Goal Plan of Care Note [code = 24031-6] Goal Plan of Care Note [code = 62827-0] Goal Plan of Care Note [code = 91794-6] Goal Plan of Care Note [code = 19529-7] Goal Plan of Care Note [code = 61481-8] Goal Plan of Care Note [code = 29837-5] Goal Plan of Care Note [code = 16446-8] Goal Plan of Care Note [code = 13973-5] Goal Plan of Care Note [code = 06331-2] Goal Plan of Care Note [code = 41186-4] Goal Plan of Care Note [code = 36731-2] Goal Plan of Care Note [code = 94319-5] Goal Plan of Care Note [code = 50780-8] Goal Plan of Care Note [code = 68729-1] Goal Plan of Care Note [code = 27675-9] Goal Plan of Care Note [code = 12485-9] Goal Plan of Care Note [code = 28181-8] Goal Plan of Care Note [code = 89560-2] Goal Plan of Care Note [code = 81285-4] Goal Plan of Care Note [code = 65274-0] Goal Plan of Care Note [code = 43837-9] Goal Plan of Care Note [code = 13055-6] Goal Plan of Care Note [code = 19316-2] Goal Plan of Care Note [code = 36904-7] Goal Plan of Care Note [code = 28757-9] Goal Plan of Care Note [code = 67306-6] Goal Plan of Care Note [code = 43549-6] Goal Plan of Care Note [code = 92752-4] Goal Plan of Care Note [code = 90901-4] Goal Plan of Care Note [code = 89873-4] Goal Plan of Care Note [code = 85518-8] Goal Plan of Care Note [code = 48032-5] Goal Plan of Care Note [code = 94255-7] Goal Plan of Care Note [code = 71080-1] Goal Plan of Care Note [code = 07447-0] Goal Plan of Care Note [code = 47626-5] Goal Plan of Care Note [code = 76289-4] Goal Plan of Care Note [code = 09701-8] Goal Plan of Care Note [code = 86655-1] Goal Plan of Care Note [code = 24561-9] Goal Plan of Care Note [code = 14799-5] Goal Plan of Care Note [code = 76497-9] Goal Plan of Care Note [code = 95866-9] Goal Plan of Care Note [code = 37393-9] Goal Plan of Care Note [code = 41894-6] Goal Plan of Care Note [code = 40351-2] Goal Plan of Care Note [code = 00945-3] Goal Plan of Care Note [code = 52109-2] Goal Plan of Care Note [code = 03531-3] Goal Plan of Care Note [code = 12002-0] Goal Plan of Care Note [code = 65472-1] Goal Plan of Care Note [code = 91321-5] Goal Plan of Care Note [code = 52826-9] Goal Plan of Care Note [code = 63604-5] Goal Plan of Care Note [code = 10362-9] Goal Plan of Care Note [code = 30973-4] Goal Plan of Care Note [code = 31732-6] Goal Plan of Care Note [code = 76659-4] Goal Plan of Care Note [code = 01915-3] Goal Plan of Care Note [code = 84794-3] Goal Plan of Care Note [code = 45538-6] Goal Plan of Care Note [code = 22388-5] Goal Plan of Care Note [code = 07736-2] Goal Plan of Care Note [code = 65968-2] Goal Plan of Care Note [code = 02644-9] Goal Plan of Care Note [code = 78803-0] Goal Plan of Care Note [code = 62428-7] Goal Plan of Care Note [code = 88698-1] Goal Plan of Care Note [code = 90370-3] Goal Plan of Care Note [code = 11004-1] Goal Plan of Care Note [code = 68865-6] Goal Plan of Care Note [code = 93851-0] Goal Plan of Care Note [code = 83552-2] Goal Plan of Care Note [code = 63509-2] Goal Plan of Care Note [code = 22052-0] Goal Plan of Care Note [code = 65793-2] Goal Plan of Care Note [code = 40522-7] Goal Plan of Care Note [code = 82031-9] Goal Plan of Care Note [code = 86081-7] Goal Plan of Care Note [code = 42573-9] Goal Plan of Care Note [code = 83641-2] Goal Plan of Care Note [code = 45147-9] Goal Plan of Care Note [code = 70239-3] Goal Plan of Care Note [code = 94576-0] Goal Plan of Care Note [code = 36666-1] Goal Plan of Care Note [code = 53140-7] Goal Plan of Care Note [code = 71721-4] Goal Plan of Care Note [code = 83468-1] Goal Plan of Care Note [code = 37391-6] Goal Plan of Care Note [code = 19945-5] Goal Plan of Care Note [code = 20607-0] Goal Plan of Care Note [code = 50726-3] Goal Plan of Care Note [code = 00593-6] Goal Plan of Care Note [code = 21425-7] Goal Plan of Care Note [code = 92999-0] Goal Plan of Care Note [code = 71299-2] Goal Plan of Care Note [code = 34981-1] Goal Plan of Care Note [code = 53168-2] Goal Plan of Care Note [code = 67081-5] Goal Plan of Care Note [code = 39811-7] Goal Plan of Care Note [code = 89895-6] Goal Plan of Care Note [code = 70083-6] Goal Plan of Care Note [code = 98184-7] Goal Plan of Care Note [code = 33715-3] Goal Plan of Care Note [code = 24725-0] Goal Plan of Care Note [code = 51128-9] Goal Plan of Care Note [code = 52065-9] Goal Plan of Care Note [code = 71843-5] Goal Plan of Care Note [code = 09942-2] Goal Plan of Care Note [code = 65334-8] Goal Plan of Care Note [code = 01755-9] Goal Plan of Care Note [code = 32305-0] Goal Plan of Care Note [code = 77018-6] Goal Plan of Care Note [code = 12803-4] Goal Plan of Care Note [code = 91262-4] Goal Plan of Care Note [code = 94269-8] Goal Plan of Care Note [code = 82561-7] Goal Plan of Care Note [code = 75696-4] Goal Plan of Care Note [code = 40339-7] Goal Plan of Care Note [code = 20951-1] Goal Plan of Care Note [code = 34551-9] Goal Plan of Care Note [code = 44198-9] Goal Plan of Care Note [code = 61235-5] Goal Plan of Care Note [code = 10388-0] Goal Plan of Care Note [code = 94348-7] Goal Plan of Care Note [code = 71533-6] Goal Plan of Care Note [code = 17951-5] Goal Plan of Care Note [code = 26101-6] Goal Plan of Care Note [code = 95531-4] Goal Plan of Care Note [code = 33975-7] Goal Plan of Care Note [code = 37916-2] Goal Plan of Care Note [code = 55659-2] Goal Plan of Care Note [code = 92361-6] Goal Plan of Care Note [code = 35840-6] Goal Plan of Care Note [code = 90231-4] Goal Plan of Care Note [code = 23899-9] Goal Plan of Care Note [code = 98597-0] Goal Plan of Care Note [code = 22986-4] Goal Plan of Care Note [code = 41363-9] Goal Plan of Care Note [code = 34459-1] Goal Plan of Care Note [code = 98064-3] Goal Plan of Care Note [code = 75100-8] Goal Plan of Care Note [code = 90575-5] Goal Plan of Care Note [code = 09987-3] Goal Plan of Care Note [code = 96147-2] Goal Plan of Care Note [code = 66405-2] Goal Plan of Care Note [code = 34675-0] Goal Plan of Care Note [code = 43047-3] Goal Plan of Care Note [code = 15330-6] Goal Plan of Care Note [code = 94074-9] Goal Plan of Care Note [code = 02110-1] Goal Plan of Care Note [code = 32730-8] Goal Plan of Care Note [code = 71831-2] Goal Plan of Care Note [code = 39810-6] Goal Plan of Care Note [code = 27545-7] Goal Plan of Care Note [code = 89428-7] Goal Plan of Care Note [code = 37674-7] Goal Plan of Care Note [code = 82917-8] Goal Plan of Care Note [code = 91632-6] Goal Plan of Care Note [code = 58141-9] Goal Plan of Care Note [code = 28401-7] Goal Plan of Care Note [code = 08709-2] Goal Plan of Care Note [code = 39901-6] Goal Plan of Care Note [code = 34860-6] Goal Plan of Care Note [code = 13256-3] Goal Plan of Care Note [code = 94682-7] Goal Plan of Care Note [code = 30696-0] Goal Plan of Care Note [code = 02403-1] Goal Plan of Care Note [code = 47794-7] Goal Plan of Care Note [code = 87411-7] Goal Plan of Care Note [code = 69387-8] Goal Plan of Care Note [code = 89327-2] Goal Plan of Care Note [code = 38743-8] Goal Plan of Care Note [code = 06235-8] Goal Plan of Care Note [code = 40083-0] Goal Plan of Care Note [code = 68904-7] Goal Plan of Care Note [code = 23710-1] Goal Plan of Care Note [code = 30649-3] Goal Plan of Care Note [code = 05804-7] Goal Plan of Care Note [code = 19832-3] Goal Plan of Care Note [code = 81236-9] Goal Plan of Care Note [code = 07244-6] Goal Plan of Care Note [code = 13629-1] Goal Plan of Care Note [code = 16638-7] Goal Plan of Care Note [code = 14420-3] Goal Plan of Care Note [code = 33322-4] Goal Plan of Care Note [code = 52588-3] Goal Plan of Care Note [code = 04386-8] Goal Plan of Care Note [code = 59984-0] Goal Plan of Care Note [code = 57614-6] Goal Plan of Care Note [code = 71531-6] Goal Plan of Care Note [code = 72634-4] Goal Plan of Care Note [code = 37460-2] Goal Plan of Care Note [code = 09408-1] Goal Plan of Care Note [code = 11434-3] Goal Plan of Care Note [code = 64692-4] Goal Plan of Care Note [code = 51424-6] Goal Plan of Care Note [code = 43680-2] Goal Plan of Care Note [code = 12546-8] Goal Plan of Care Note [code = 99474-7] Goal Plan of Care Note [code = 01711-3] Goal Plan of Care Note [code = 87435-5] Goal Plan of Care Note [code = 52939-4] Goal Plan of Care Note [code = 29353-5] Goal Plan of Care Note [code = 55289-2] Goal Plan of Care Note [code = 77887-1] Goal Plan of Care Note [code = 19307-6] Goal Plan of Care Note [code = 89921-4] Encounters Start Date/Time End Date/Time Encounter Type Admission Type Attending [facility] Care Department Encounter ID Source 2023-12-24 10:45:00 2023-12-24 10:45:00 Outpatient DALY MEJIAS [id number] [place] May 2023-11-18 11:00:00 2023-11-18 11:00:00 Outpatient DALY MEJIAS [id number] [facility] 2023-10-17 00:00:00 2023-10-17 00:00:00 Outpatient PREZAKathleen DALY PATTERSON [id number] [facility] 2023-10-16 00:00:00 2023-10-16 00:00:00 Outpatient PREZAKathleen DALY PATTERSON [id number] [facility] 2023-10-15 00:00:00 2023-10-15 00:00:00 Outpatient ADLY MEJIAS [id number] [facility] 2023-10-14 09:45:00 2023-10-14 09:45:00 Outpatient LABGera PATTERSON [id number] [facility] 2023-10-14 08:45:00 2023-10-14 08:45:00 Outpatient DALY MEJIAS [id number] [place] May 2023-08-14 11:42:13 2023-08-14 11:42:13 Outpatient SFA SFA [id number] Óscar Zavala 2023-07-09 15:49:57 2023-07-09 15:49:57 Outpatient SFA SFA 100 Óscar Zavala 2023-04-26 00:00:00 2023-04-26 00:00:00 Orders Only Doctor Unassigned, [place] [facility] 1.2.840.114 350.1.13.10 4.2.7.2.686 [id number] [facility] 2023-04-23 10:17:21 2023-04-23 10:17:21 Outpatient [facility] [id number] Óscar Zavala 2023-04-17 00:00:00 2023-04-17 00:00:00 Orders Only Doctor Unassigned, [place] [facility] 1.2.840.114 350.1.13.10 4.2.7.2.686 [id number] [facility] 2023-02-08 08:35:00 2023-02-08 12:02:00 Emergency X Maricarmen SANCHEZ [facility] [id number] [facility] 2023-02-08 08:35:00 2023-02-08 12:02:00 Emergency Maricarmen Sanchez [facility] 1.2.840.114 350.1.13.10 4.2.7.2.686 [id number] [facility] 2023-02-08 00:00:00 2023-02-08 00:00:00 Patient Secure Msg Doctor Unassigned, [place] [facility] 1.2.840.114 350.1.13.10 4.2.7.2.686 [id number] [facility] 2022-12-17 14:21:59 2022-12-17 14:21:59 Outpatient [facility] [id number] Óscar Zavala 2022-11-28 16:34:00 2022-11-28 18:21:00 Emergency X JOHN KAMARA [facility] [id number] [facility] 2022-11-28 16:34:00 2022-11-28 18:21:00 Emergency Kamara, John [facility] 1.2.840.114 350.1.13.10 4.2.7.2.686 [id number] [facility] 2022-11-28 13:54:29 2022-11-28 13:54:29 Outpatient [facility] [id number] Óscar Zavala 2022-11-08 10:17:59 2022-11-08 10:17:59 Outpatient [facility] [id number] Óscar [facility] [place] 2022-10-30 08:40:52 2022-10-30 08:40:52 Outpatient [facility] [id number] Óscar [place] 2022-10-23 17:01:52 2022-10-23 17:01:52 Outpatient [facility] [id number] Óscar Rose Lucas 2022-10-23 00:00:00 2022-10-23 00:00:00 Outpatient Visit [id number] vicky-45d0-9 [id number] d0ef99 2022-09-16 14:58:00 2022-09-16 19:08:00 Emergency X ANUJA ARECHIGAORY [facility] [id number] [facility] 2022-09-16 14:58:00 2022-09-16 19:08:00 Emergency Dannielle Arechiga Susan [facility] 1.2.840.114 350.1.13.10 4.2.7.2.686 [id number] [facility] 2022-08-15 10:49:03 2022-08-15 10:49:03 Outpatient [facility] [id number] Óscar Zavala 2022-07-02 00:00:00 2022-07-02 00:00:00 Outpatient Visit [id number] y1e-3z69-4 fa8-5933fc 91e4b7 2022-06-25 20:19:00 2022-06-25 21:54:00 Emergency X EBENEZER HELM [facility] [id number] [facility] 2022-06-25 20:19:00 2022-06-25 21:54:00 Emergency Ebenezer Helm A [facility] 1..840.114 350.1.13.10 4.2.7.2.686 [id number] [facility] 2022-06-05 00:00:00 2022-06-05 00:00:00 Outpatient Visit [id number]-[id number] eaf-d0acf8 31c2b3 2022-05-07 00:00:00 2022-05-07 00:00:00 Outpatient Visit [id number]-dac [id number] 740-4024-9 565-dac46b 95debf 2022-04-09 22:07:00 2022-04-09 22:08:00 Emergency X RENETTA COE [facility] [id number] [facility] 2022-04-09 22:07:00 2022-04-09 22:08:00 Emergency Renetta Coe [facility] 1..840.114 350.1.13.10 4.2.7.2.686 [id number] [facility] 2021-12-06 21:21:00 2021-12-07 01:08:00 Emergency X ELADIO MONSIVAIS [facility] [id number] [facility] 2021-12-06 21:21:00 2021-12-07 01:08:00 Emergency Eladio Monsivais [facility] 1..840.114 350.1.13.10 4.2.7.2.686 [id number] [facility] 2021-06-23 22:09:00 2021-06-23 22:10:00 Emergency Yolanda Bass [facility] 1.2.840.114 350.1.13.10 4.2.7.2.686 [id number] [facility] 2021-06-23 21:42:00 2021-06-23 21:42:00 Emergency X YOLANDA BASS [facility] [id number] [facility] 2021-03-05 17:25:00 2021-03-05 18:39:00 Emergency Vonnie Nathan [facility] 1.2.840.114 350.1.13.10 4.2.7.2.686 [id number] [facility] 2021-03-05 17:25:00 2021-03-05 18:39:00 Emergency X VONNIE NATHAN [facility] [id number] [facility] 2020-12-17 11:09:00 2020-12-17 12:55:00 Emergency Hermilo Jeffery [facility] 1.2.840.114 350.1.13.10 4.2.7.2.686 [id number] [facility] 2020-12-17 11:09:00 2020-12-17 12:55:00 Emergency X HERMILO JEFFERY [facility] [id number] [facility] 2020-10-30 06:26:00 2020-10-30 09:25:00 Emergency Kt Ratliff [facility] 1.2.840.114 350.1.13.10 4.2.7.2.686 [id number] [facility] 2020-10-30 06:22:00 2020-10-30 06:22:00 Emergency X [facility] [id number] [facility] 2020-09-26 15:22:00 2020-09-26 19:20:00 Emergency Carie Chanel [facility] 1.2.840.114 350.1.13.10 4.2.7.2.686 [id number] [facility] 2020-09-26 15:22:00 2020-09-26 19:20:00 Emergency X CARIE CHANEL [facility] [id number] [facility] 2020-09-01 16:25:00 2020-09-01 20:55:00 Emergency Luisito Chavis [facility] 1.2840.114 350.1.13.10 4.2.7.2.686 [id number] [facility] 2020-09-01 16:25:00 2020-09-01 16:25:00 Emergency X LUISITO CHAVIS [facility] [id number] [facility] 2020-09-01 00:00:00 2020-09-01 00:00:00 Nurse Triage Ly Yepez [facility] 1.2.840.114 350.1.13.10 4.2.7.2.686 [id number] [facility] 2020-08-08 00:00:00 2020-08-08 00:00:00 Letter (Out) Mckayla Masterson [facility] 1.2.840.114 350.1.13.10 4.2.7.2.686 [id number] [facility] 2020-07-25 20:28:00 2020-07-25 23:58:00 Emergency Yolanda Bass [facility] 1.2.840.114 350.1.13.10 4.2.7.2.686 [id number] [facility] 2020-07-25 19:37:00 2020-07-25 19:37:00 Emergency X [facility] [id number] [facility] 2020-07-05 00:00:00 2020-07-05 00:00:00 Orders Only Doctor Unassigned, [place] [facility] 1.2.840.114 350.1.13.10 4.2.7.2.686 [id number] [facility] 2018-07-15 08:45:00 2018-07-15 08:45:00 Outpatient [facility] [id number] [facility] 2018-01-07 14:30:00 2018-01-07 14:30:00 Outpatient [facility] [id number] [facility] Results Test Description Test Time Test Comments Results Result Co mments Source COMPREHENSIVE METABOLIC [id number] 10:46:21* Test Item Value Reference Range Interpretation Comme nts GLUCOSE (test code = 2217) 173 MG/DL 70-99 H BUN (test code = 2208) 7 MG/DL 6-20 CREATININE (test code = 2214) 0.56 MG/DL 0.60-1.30 L eGFR (2020 CKD-EPI) (test code = 19478) 110 ML/MIN/1.73 >60 CALC BUN/CREAT (test code = 2235) 13 RATIO 6-28 SODIUM (test code = 2231) 142 MEQ/L 133-146 POTASSIUM (test code = 2228) 4.6 MEQ/L 3.5-5.4 CHLORIDE (test code = 2215) 102 MEQ/L 95-107 CARBON DIOXIDE (test code = 2206) 27 MEQ/L 19-31 CALCIUM (test code = 2209) 9.7 MG/DL 8.5-10.5 PROTEIN, TOTAL (test code = 2229) 7.1 G/DL 6.1-8.3 ALBUMIN (test code = 2201) 4.2 G/DL 3.5-5.2 CALC GLOBULIN (test code = 2240) 2.9 G/DL 1.9-3.7 CALC A/G RATIO (test code = 2234) 1.4 RATIO 1.0-2.6 BILIRUBIN, TOTAL (test code = 2207) 0.3 MG/DL See_Comment [Automated me ssage] The system which generated this result transmitted reference range: <=1.2. The reference range was not used to interpret this result as normal/abnormal. ALKALINE PHOSPHATASE (test code = 2204) 101 U/L 40-130 AST (test code = 2218) 14 U/L 9-40 ALT (test code = 2219) 15 U/L 5-40 UNLESS OTHERWISE INDICATED, ALL TESTING PERFORMED [facility] [employer] [address] [place] [address] WOOD DRILL OPERATOR: KEVIN FRANCO M.D. [place] NUMBER [id number] [facility] [place]. [id number] HEMOGLOBIN [id number] 07:47:20* Test Item Value Reference Range Interpretation Comme [facility] HEMOGLOBIN A1c (test code = 11369) 12.0 % 4.2-5.6 H [employer] GUIDELINES FOR HGB A1C: PREDIABETES/INCREASED RISK . . . . . . . 5.7-6.4% DIAGNOSIS OF DIABETES . . . . . . . . . >=6.5% WITH CONFIRMATION OR APPROPRIATE SYMPTOMS NOTE: ASSAY MAY BE AFFECTED BY HEMOGLOBINOPATHIES (SICKLE CELL ANEMIA, S-C DISEASE, OTHERS) OR ARTIFICIALLY LOWERED BY DECREASED RED CELL SURVIVAL (HEMOLYTIC ANEMIAS, BLOOD LOSS, ETC.). CONSIDER ALTERNATE TESTING OR LABORATORY CONSULTATION. POCT GLUCOSE (AUTOMATED)2021-12-07 07:06:55* Test Item Value Reference Range Interpretation Comme [facility] POCT GLU (test code = 1489335558) 292 mg/dL 70-110 H Lab Interpretation (test cod e = 68538-0) Abnormal [facility] GLUCOSE (AUTOMATED)2021-12-07 04:55:44* Test Item Value Reference Range Interpretation Comme [facility] POCT GLU (test code = 8966904479) 440 mg/dL 70-110 H Lab Interpretation (test cod e = 31100-8) Abnormal [facility]. METABOLIC PANEL (62914)2021-12-07 04:40:58* Test Item Value Reference Range Interpretation Comme nts NA (test code = 5945846607) 133 mmol/L 135-145 L K (test code = 8649538301) 4.2 mmol/L 3.5-5.0 CL (test code = 0980120340) 97 mmol/L 98-108 L CO2 TOTAL (test code = 6304500803) 25 mmol/L 23-31 AGAP (test code = 3508131003) 2-16 BUN (test code = 1743314957) 11 mg/dL 7-23 GLUCOSE (test code = 3639736096) 519 mg/dL 70-110 HH CREATININE (test code = 0927073801) 0.65 mg/dL 0.50-1.04 TOTAL BILI (test code = 8625308014) 0.4 mg/dL 0.1-1.1 CALCIUM (test code = 4884504446) 8.8 mg/dL 8.6-10.6 T PROTEIN (test code = 5041765575) 6.9 g/dL 6.3-8.2 ALBUMIN (test code = 9308375590) 3.9 g/dL 3.5-5.0 ALK PHOS (test code = 0865809287) 113 U/L 34-122 ALTv (test code = 1742-6) 25 U/L 5-35 AST(SGOT) (test code = 7884237524) 32 U/L 13-40 eGFR (test code = 6796398849) mL/min/1.73m2 MATTHEW (test code = MATTHEW) Association of Glomerular Filtration Rate (GFR) and Staging of Kidney Disease* + --+ --+ ------+| GFR (mL/min/1.73 m2) ?| With Kidney Damage ?| ?Without Kidney Damage+ --------+ --------+ +| ?>90 ?| ?Stage one ?| ? Normal ?+ ---+ ---+ -------+| ?60-89 ?| ?Stage two ?| ? Decreased GFR ? + --+ --+ ------+| ?30-59 ?| ?Stage three ?| ? Stage three ? + --+ --+ ------+| ?15-29 ?| ?Stage four ? | ? Stage four ?+ ---+ ---+ -------+| ?<15 (or dialysis) ? ?| ?Stage five ? | ? Stage five ?+ ---+ ---+ -------+ *Each stage assumes the associated GFR level has been in effect for at least three months. ?Stages 1 to 5, with or without kidney disease, indicate chronic kidney disease. Notes: Determination of stages one and two (with eGFR >59mL/min/1.73 m2) requires estimation of kidney damage for at least three months as defined by structural or functional abnormalities of the kidney, manifested by either:Pathological abnormalities or Markers of kidney damage (including abnormalities in the composition of the blood or urine or abnormalities in imaging tests). Lab Interpretation (test code = 89372-7) [facility]normal [facility] [id number] 04:33:26* Test Item Value Reference Range Interpretation Comments TROPONIN I (test code = 7048132745) <0.012 See_Comment [Automated message] The system which generated this result transmitted reference range: <=0.034 ng/mL. The reference range was not used to interpret this result as normal/abnormal. MATTHEW (test code = MATTHEW) Reference (Normal) Range (defined by the 99th percentile reference limit): <= 0.034 ng/mL Note: Cardiac troponin begins to rise 3-4 hours after the onset of ischemia. Repeat in 4-6 hours if the sample was drawn within 3-4 hours of the onset of the symptom and found normal. Diagnosis of myocardial injury is made with acute changes in cTn concentrations with at least one serial sample above the 99th percentile upper reference limit (URL), taken together with the patient's clinical presentation. Biotin has been reported to cause a negative bias, interpret results relative to patient's use of biotin. Lab Interpretation (test code = 15538-2) Normal [facility] HospitalPROT[facility] / [id number] 04:13:03* Test Item Value Reference Range Interpretation Comme nts PROTIME PATIENT (test code = 5964-2) See_Comment [Automated [employer] ge] The system which generated this result transmitted reference range: 12.0 - 14.7 Seconds. The reference range was not used to interpret this result as normal/abnormal. INR (test code = 6301-6) Normal INR <1.1; Warfarin Therapeutic range 2.0 to 3.0 or 2.5 to 3.5, depending upon the indications. Lab Interpretation (test code = 37072-6) Normal [facility]CBC [facility] [id number] 04:06:26* Test Item Value Reference Range Interpretation Comme nts WBC (test code = 6690-2) See_Comment [Automated messa ge] The system which generated this result transmitted reference range: 4.30 - 11.10 10*3/?L. The reference range was not used to interpret this result as normal/abnormal. RBC (test code = 789-8) See_Comment [Automated [employer]] The system which generated this result transmitted reference range: 3.93 - 5.25 10*6/?L. The reference range was not used to interpret this result as normal/abnormal. HGB (test code = 718-7) 13.1 g/dL 11.6-15.0 HCT (test code = 4544-3) 39.3 % 35.7-45.2 MCV (test code = 787-2) 87.7 fL 80.6-95.5 MCH (test code = 785-6) 29.2 pg 25.9-32.8 MCHC (test code = 786-4) 33.3 g/dL 31.6-35.1 RDW-SD (test code = 97650-2) 39.2 fL 39.0-49.9 RDW-CV (test code = 788-0) 12.2 % 12.0-15.5 PLT (test code = 777-3) See_Comment [Automated [employer]] The system which generated this result transmitted reference range: 166 - 358 10*3/?L. The reference range was not used to interpret this result as normal/abnormal. MPV (test code = 97115-7) 10.4 fL 9.5-12.9 NRBC/100 WBC (test code = 2649674498) See_Comment [Automated me ssage] The system which generated this result transmitted reference range: 0.0 - 10.0 /100 WBCs. The reference range was not used to interpret this result as normal/abnormal. NRBC x10^3 (test code = 1838714092) <0.01 See_Comment [Automated me ssage] The system which generated this result transmitted reference range: 10*3/?L. The reference range was not used to interpret this result as normal/abnormal. GRAN MAT (NEUT) % (test code = 770-8) 45.7 % IMM GRAN % (test code = 5798069024) 0.50 % LYMPH % (test code = 736-9) 38.7 % MONO % (test code = 5905-5) 10.4 % EOS % (test code = 713-8) 4.1 % BASO % (test code = 706-2) 0.6 % GRAN MAT x10^3(ANC) (test code = 1021077150) 3.00 10*3/uL 1.88-7.09 IMM GRAN x10^3 (test code = 7530256188) 0.03 10*3/uL 0.00-0.06 LYMPH x10^3 (test code = 731-0) 2.54 10*3/uL 1.32-3.29 MONO x10^3 (test code = 742-7) 0.68 10*3/uL 0.33-0.92 EOS x10^3 (test code = 711-2) 0.27 10*3/uL 0.03-0.39 BASO x10^3 (test code = 704-7) 0.04 10*3/uL 0.01-0.07 [facility], [id number] 00:00:00* Test Item Value Reference Range Interpretation Comme nts CULTURE, URINE (test code = 17158) SPECIMEN NUMBER: [id number] CULTURE, [id number] 00:00:00* Test Item Value Reference Range Interpretation Comme nts CULTURE, URINE (test code = 77932) SPECIMEN NUMBER: [id number] CULTURE, [id number] 00:00:00* Test Item Value Reference Range Interpretation Comme nts CULTURE, URINE (test code = 00684) SPECIMEN NUMBER: [id number] CULTURE, [id number] 00:00:00* Test Item Value Reference Range Interpretation Comme nts CULTURE, URINE (test code = 93574) SPECIMEN NUMBER: [id number] CULTURE, [id number] 00:00:00* Test Item Value Reference Range Interpretation Comme nts CULTURE, URINE (test code = 18562) SPECIMEN NUMBER: [id number] CULTURE, [id number] 00:00:00* Test Item Value Reference Range Interpretation Comme nts CULTURE, URINE (test code = 96628) SPECIMEN NUMBER: [id number] CULTURE, [id number] 00:00:00* Test Item Value Reference Range Interpretation Comme nts CULTURE, URINE (test code = 06751) SPECIMEN NUMBER: [id number] VAGINAL PATHOGENS DNA [id number] 00:00:00* Test Item Value Reference Range Interpretation Comme nts KASSI SPECIES (test code = 67592) NEGATIVE G. VAGINALIS (test code = 43700) POSITIVE T. VAGINALIS (test code = 08946) NEGATIVE VAGINAL PATHOGENS DNA [id number] 00:00:00* Test Item Value Reference Range Interpretation Comme nts KASSI SPECIES (test code = 34542) NEGATIVE G. VAGINALIS (test code = 26544) POSITIVE T. VAGINALIS (test code = 84880) NEGATIVE VAGINAL PATHOGENS DNA [id number] 00:00:00* Test Item Value Reference Range Interpretation Comme nts KASSI SPECIES (test code = 47497) NEGATIVE G. VAGINALIS (test code = 02088) POSITIVE T. VAGINALIS (test code = 80816) NEGATIVE VAGINAL PATHOGENS DNA [id number] 00:00:00* Test Item Value Reference Range Interpretation Comme nts KASSI SPECIES (test code = 22353) NEGATIVE G. VAGINALIS (test code = 21890) POSITIVE T. VAGINALIS (test code = 31698) NEGATIVE VAGINAL PATHOGENS DNA [id number] 00:00:00* Test Item Value Reference Range Interpretation Comme nts KASSI SPECIES (test code = 99142) NEGATIVE G. VAGINALIS (test code = 48730) POSITIVE T. VAGINALIS (test code = 42090) NEGATIVE VAGINAL PATHOGENS DNA [id number] 00:00:00* Test Item Value Reference Range Interpretation Comme nts KASSI SPECIES (test code = 43458) NEGATIVE G. VAGINALIS (test code = 51335) POSITIVE T. VAGINALIS (test code = 37805) NEGATIVE VAGINAL PATHOGENS DNA [id number] 00:00:00* Test Item Value Reference Range Interpretation Comme nts KASSI SPECIES (test code = 07256) NEGATIVE G. VAGINALIS (test code = 68234) POSITIVE T. VAGINALIS (test code = 69714) NEGATIVE DIAG MAMM BILATERAL HERNANDEZ CAD [id number] 08:00:36 Name: Setw : 1970 Sex: F - DIAG MAMM BILATERAL HERNANDEZ CAD DIGITALBILATERAL DIGITAL DIAGNOSTIC MAMMOGRAM 3D/2D WITH CAD: 04/06/2021LINICAL: Abnormal Report from CT scan. Digital breast tomosynthesis was performed in addition to routine CC and MLO views. Current mammographic images were evaluated by [employer] CAD (computer-aided detection) software. Comparison is made to exam dated 04/25/2015 mammogram - [facility]. The tissue of both breasts is heterogeneously dense. This may lower the sensitivity of mammography. There are benign calcifications in both breasts. No suspicious mass, architectural distortion, malignant type calcification, or lymph node abnormality detected. INCOMPLETE: ADDITIONAL IMAGING EVALUATION NEEDEDBilateral ultrasound pending for additional evaluation. - BREAST ULTRASOUND BILATERALULTRASOUND OF BOTH BREASTS AND BOTH AXILLA: 04/06/2021omparison is made to exam dated 04/25/2015 mammogram - [facility]. Real-time ultrasound of both breasts and both axilla and clinical breast exam were performed. No abnormalities were seen sonographically in either breast or either axilla. Clinical breast exam was unremarkable.IMPRESSION: NEGATIVE There is no sonographic evidence of malignancy. Resume annual screening mammography in one year. Carmel Hensley M.D. dm/:04/07/2021 08:00:36 Entry: - 108:18:04Imaging Technologist: Bonnie CALABRESE, [facility]- FWletter sent: BIRADS 1-2 Combo FU Letter Mammogram BI-RADS: 0 Incomplete: Additional Imaging Evaluation Needed Ultrasound BI-RADS: 1 NegativeBREAST ULTRASOUND [id number] 08:00:36 Name: Stew : 1970 Sex: F - DIAG MAMM BILATERAL HERNANDEZ CAD DIGITALBILATERAL DIGITAL DIAGNOSTIC MAMMOGRAM 3D/2D WITH CAD: 04/06/2021LINICAL: Abnormal Report from CT scan. Digital breast tomosynthesis was performed in addition to routine CC and MLO views. Current mammographic images were evaluated by [employer] CAD (computer-aided detection) software. Comparison is made to exam dated 04/25/2015 mammogram - [facility]. The tissue of both breasts is heterogeneously dense. This may lower the sensitivity of mammography. There are benign calcifications in both breasts. No suspicious mass, architectural distortion, malignant type calcification, or lymph node abnormality detected. INCOMPLETE: ADDITIONAL IMAGING EVALUATION NEEDEDBilateral ultrasound pending for additional evaluation. - BREAST ULTRASOUND BILATERALULTRASOUND OF BOTH BREASTS AND BOTH AXILLA: 04/06/2021omparison is made to exam dated 04/25/2015 mammogram - [facility]. Real-time ultrasound of both breasts and both axilla and clinical breast exam were performed. No abnormalities were seen sonographically in either breast or either axilla. Clinical breast exam was unremarkable.IMPRESSION: NEGATIVE There is no sonographic evidence of malignancy. Resume annual screening mammography in one year. Carmel Hensley M.D. dm/:04/07/2021 08:00:36 Entry: - 108:18:04Imaging Technologist: Bonnie CALABRESE, [facility]- FWletter sent: BIRADS 1-2 Combo FU Letter Mammogram BI-RADS: 0 Incomplete: Additional Imaging Evaluation Needed Ultrasound BI-RADS: 1 NegativeH. PYLORI (BREATH)2021-03-04 00:00:00* Test Item Value Reference Range Interpretation Comme nts H. PYLORI (BREATH) (test cod e = 35433) POSITIVE H. PYLORI (BREATH)2021-03-04 00:00:00* Test Item Value Reference Range Interpretation Comme nts H. PYLORI (BREATH) (test cod e = 90365) POSITIVE H. PYLORI (BREATH)2021-03-04 00:00:00* Test Item Value Reference Range Interpretation Comme nts H. PYLORI (BREATH) (test cod e = 45060) POSITIVE H. PYLORI (BREATH)2021-03-04 00:00:00* Test Item Value Reference Range Interpretation Comme nts H. PYLORI (BREATH) (test cod e = 72849) POSITIVE H. PYLORI (BREATH)2021-03-04 00:00:00* Test Item Value Reference Range Interpretation Comme nts H. PYLORI (BREATH) (test cod e = 82881) POSITIVE H. PYLORI (BREATH)2021-03-04 00:00:00* Test Item Value Reference Range Interpretation Comme nts H. PYLORI (BREATH) (test cod e = 06196) POSITIVE H. PYLORI (BREATH)2021-03-04 00:00:00* Test Item Value Reference Range Interpretation Comme nts H. PYLORI (BREATH) (test cod e = 88777) POSITIVE CBC W/AUTO [id number] 00:00:00* Test Item Value Reference Range Interpretation Comme nts WBC (test code = 1001) 6.7 K/UL RBC (test code = 1002) 4.87 M/UL HEMOGLOBIN (test code = 1003) 13.9 G/DL HEMATOCRIT (test code = 1004) 42.2 % MCV (test code = 1005) 86.7 fL MCH (test code = 1006) 28.5 PG MCHC (test code = 1007) 32.9 G/DL RDW (test code = 1038) 12.3 % NEUTROPHILS (test code = 1008) 59.1 % LYMPHOCYTES (test code = 1010) 30.4 % MONOCYTES (test code = 1011) 7.7 % EOSINOPHILS (test code = 1012) 1.9 % BASOPHILS (test code = 1013) 0.9 % PLATELET COUNT (test code = 1015) 387 K/UL CBC W/AUTO [id number] 00:00:00* Test Item Value Reference Range Interpretation Comme nts WBC (test code = 1001) 6.7 K/UL RBC (test code = 1002) 4.87 M/UL HEMOGLOBIN (test code = 1003) 13.9 G/DL HEMATOCRIT (test code = 1004) 42.2 % MCV (test code = 1005) 86.7 fL MCH (test code = 1006) 28.5 PG MCHC (test code = 1007) 32.9 G/DL RDW (test code = 1038) 12.3 % NEUTROPHILS (test code = 1008) 59.1 % LYMPHOCYTES (test code = 1010) 30.4 % MONOCYTES (test code = 1011) 7.7 % EOSINOPHILS (test code = 1012) 1.9 % BASOPHILS (test code = 1013) 0.9 % PLATELET COUNT (test code = 1015) 387 K/UL CBC W/AUTO [id number] 00:00:00* Test Item Value Reference Range Interpretation Comme nts WBC (test code = 1001) 6.7 K/UL RBC (test code = 1002) 4.87 M/UL HEMOGLOBIN (test code = 1003) 13.9 G/DL HEMATOCRIT (test code = 1004) 42.2 % MCV (test code = 1005) 86.7 fL MCH (test code = 1006) 28.5 PG MCHC (test code = 1007) 32.9 G/DL RDW (test code = 1038) 12.3 % NEUTROPHILS (test code = 1008) 59.1 % LYMPHOCYTES (test code = 1010) 30.4 % MONOCYTES (test code = 1011) 7.7 % EOSINOPHILS (test code = 1012) 1.9 % BASOPHILS (test code = 1013) 0.9 % PLATELET COUNT (test code = 1015) 387 K/UL HEMOGLOBIN [id number] 00:00:00* Test Item Value Reference Range Interpretation Comme nts HEMOGLOBIN A1c (test code = 19177) 11.1 % HEMOGLOBIN [id number] 00:00:00* Test Item Value Reference Range Interpretation Comme nts HEMOGLOBIN A1c (test code = 56824) 11.1 % HEMOGLOBIN [id number] 00:00:00* Test Item Value Reference Range Interpretation Comme nts HEMOGLOBIN A1c (test code = 06698) 11.1 % LIPID [id number] 00:00:00* Test Item Value Reference Range Interpretation Comme nts CHOLESTEROL (test code = 2210) 185 MG/DL TRIGLYCERIDES (test code = 2232) 190 MG/DL HDL CHOLESTEROL (test code = 2220) 49 MG/DL CALC LDL CHOL (test code = 2237) 105 MG/DL RISK RATIO LDL/HDL (test cod e = 2238) 2.14 RATIO LIPID [id number] 00:00:00* Test Item Value Reference Range Interpretation Comme nts CHOLESTEROL (test code = 2210) 185 MG/DL TRIGLYCERIDES (test code = 2232) 190 MG/DL HDL CHOLESTEROL (test code = 2220) 49 MG/DL CALC LDL CHOL (test code = 2237) 105 MG/DL RISK RATIO LDL/HDL (test cod e = 2238) 2.14 RATIO COMPREHENSIVE METABOLIC [id number] 00:00:00* Test Item Value Reference Range Interpretation Comme nts GLUCOSE (test code = 2217) 371 MG/DL BUN (test code = 2208) 11 MG/DL CREATININE (test code = 2214) 0.61 MG/DL eGFR AMER. (test cod e = 81538) 123 ML/MIN/1.73 eGFR NON- AMER. (test code = 18198) 106 ML/MIN/1.73 CALC BUN/CREAT (test code = 2235) 18 RATIO SODIUM (test code = 2231) 139 MEQ/L POTASSIUM (test code = 2228) 4.5 MEQ/L CHLORIDE (test code = 2215) 101 MEQ/L CARBON DIOXIDE (test code = 2206) 28 MEQ/L CALCIUM (test code = 2209) 9.4 MG/DL PROTEIN, TOTAL (test code = 2229) 7.6 G/DL ALBUMIN (test code = 2201) 4.1 G/DL CALC GLOBULIN (test code = 2240) 3.5 G/DL CALC A/G RATIO (test code = 2234) 1.2 RATIO BILIRUBIN, TOTAL (test code = 2207) 0.3 MG/DL ALKALINE PHOSPHATASE (test code = 2204) 120 U/L AST (test code = 2218) 19 U/L ALT (test code = 2219) 20 U/L COMPREHENSIVE METABOLIC [id number] 00:00:00* Test Item Value Reference Range Interpretation Comme nts GLUCOSE (test code = 2217) 371 MG/DL BUN (test code = 2208) 11 MG/DL CREATININE (test code = 2214) 0.61 MG/DL eGFR AMER. (test cod e = 87636) 123 ML/MIN/1.73 eGFR NON- AMER. (test code = 04576) 106 ML/MIN/1.73 CALC BUN/CREAT (test code = 2235) 18 RATIO SODIUM (test code = 2231) 139 MEQ/L POTASSIUM (test code = 2228) 4.5 MEQ/L CHLORIDE (test code = 2215) 101 MEQ/L CARBON DIOXIDE (test code = 2206) 28 MEQ/L CALCIUM (test code = 2209) 9.4 MG/DL PROTEIN, TOTAL (test code = 2229) 7.6 G/DL ALBUMIN (test code = 2201) 4.1 G/DL CALC GLOBULIN (test code = 2240) 3.5 G/DL CALC A/G RATIO (test code = 2234) 1.2 RATIO BILIRUBIN, TOTAL (test code = 2207) 0.3 MG/DL ALKALINE PHOSPHATASE (test code = 2204) 120 U/L AST (test code = 2218) 19 U/L ALT (test code = 2219) 20 U/L [id number] 00:00:00* Test Item Value Reference Range Interpretation Comme nts TSH, THIRD GENERATION (test code = 2821) 1.180 UIU/ML [id number] 00:00:00* Test Item Value Reference Range Interpretation Comme nts TSH, THIRD GENERATION (test code = 2821) 1.180 UIU/ML [id number] 00:00:00* Test Item Value Reference Range Interpretation Comme nts TSH, THIRD GENERATION (test code = 2821) 1.180 UIU/ML H. PYLORI (BREATH)2021-01-20 00:00:00* Test Item Value Reference Range Interpretation Comme nts H. PYLORI (BREATH) (test cod e = 03078) POSITIVE H. PYLORI (BREATH)2021-01-20 00:00:00* Test Item Value Reference Range Interpretation Comme nts H. PYLORI (BREATH) (test cod e = 36416) POSITIVE CBC W/AUTO [id number] 00:00:00* Test Item Value Reference Range Interpretation Comme nts WBC (test code = 1001) 6.7 K/UL RBC (test code = 1002) 4.87 M/UL HEMOGLOBIN (test code = 1003) 13.9 G/DL HEMATOCRIT (test code = 1004) 42.2 % MCV (test code = 1005) 86.7 fL MCH (test code = 1006) 28.5 PG MCHC (test code = 1007) 32.9 G/DL RDW (test code = 1038) 12.3 % NEUTROPHILS (test code = 1008) 59.1 % LYMPHOCYTES (test code = 1010) 30.4 % MONOCYTES (test code = 1011) 7.7 % EOSINOPHILS (test code = 1012) 1.9 % BASOPHILS (test code = 1013) 0.9 % PLATELET COUNT (test code = 1015) 387 K/UL CBC W/AUTO [id number] 00:00:00* Test Item Value Reference Range Interpretation Comme nts WBC (test code = 1001) 6.7 K/UL RBC (test code = 1002) 4.87 M/UL HEMOGLOBIN (test code = 1003) 13.9 G/DL HEMATOCRIT (test code = 1004) 42.2 % MCV (test code = 1005) 86.7 fL MCH (test code = 1006) 28.5 PG MCHC (test code = 1007) 32.9 G/DL RDW (test code = 1038) 12.3 % NEUTROPHILS (test code = 1008) 59.1 % LYMPHOCYTES (test code = 1010) 30.4 % MONOCYTES (test code = 1011) 7.7 % EOSINOPHILS (test code = 1012) 1.9 % BASOPHILS (test code = 1013) 0.9 % PLATELET COUNT (test code = 1015) 387 K/UL CBC W/AUTO [id number] 00:00:00* Test Item Value Reference Range Interpretation Comme nts WBC (test code = 1001) 6.7 K/UL RBC (test code = 1002) 4.87 M/UL HEMOGLOBIN (test code = 1003) 13.9 G/DL HEMATOCRIT (test code = 1004) 42.2 % MCV (test code = 1005) 86.7 fL MCH (test code = 1006) 28.5 PG MCHC (test code = 1007) 32.9 G/DL RDW (test code = 1038) 12.3 % NEUTROPHILS (test code = 1008) 59.1 % LYMPHOCYTES (test code = 1010) 30.4 % MONOCYTES (test code = 1011) 7.7 % EOSINOPHILS (test code = 1012) 1.9 % BASOPHILS (test code = 1013) 0.9 % PLATELET COUNT (test code = 1015) 387 K/UL HEMOGLOBIN [id number] 00:00:00* Test Item Value Reference Range Interpretation Comme nts HEMOGLOBIN A1c (test code = 79963) 11.1 % HEMOGLOBIN [id number] 00:00:00* Test Item Value Reference Range Interpretation Comme nts HEMOGLOBIN A1c (test code = 85991) 11.1 % HEMOGLOBIN [id number] 00:00:00* Test Item Value Reference Range Interpretation Comme nts HEMOGLOBIN A1c (test code = 14686) 11.1 % LIPID [id number] 00:00:00* Test Item Value Reference Range Interpretation Comme nts CHOLESTEROL (test code = 2210) 185 MG/DL TRIGLYCERIDES (test code = 2232) 190 MG/DL HDL CHOLESTEROL (test code = 2220) 49 MG/DL CALC LDL CHOL (test code = 2237) 105 MG/DL RISK RATIO LDL/HDL (test cod e = 2238) 2.14 RATIO LIPID [id number] 00:00:00* Test Item Value Reference Range Interpretation Comme nts CHOLESTEROL (test code = 2210) 185 MG/DL TRIGLYCERIDES (test code = 2232) 190 MG/DL HDL CHOLESTEROL (test code = 2220) 49 MG/DL CALC LDL CHOL (test code = 2237) 105 MG/DL RISK RATIO LDL/HDL (test cod e = 2238) 2.14 RATIO COMPREHENSIVE METABOLIC [id number] 00:00:00* Test Item Value Reference Range Interpretation Comme nts GLUCOSE (test code = 2217) 371 MG/DL BUN (test code = 2208) 11 MG/DL CREATININE (test code = 2214) 0.61 MG/DL eGFR AMER. (test cod e = 07506) 123 ML/MIN/1.73 eGFR NON- AMER. (test code = 82535) 106 ML/MIN/1.73 CALC BUN/CREAT (test code = 2235) 18 RATIO SODIUM (test code = 2231) 139 MEQ/L POTASSIUM (test code = 2228) 4.5 MEQ/L CHLORIDE (test code = 2215) 101 MEQ/L CARBON DIOXIDE (test code = 2206) 28 MEQ/L CALCIUM (test code = 2209) 9.4 MG/DL PROTEIN, TOTAL (test code = 2229) 7.6 G/DL ALBUMIN (test code = 2201) 4.1 G/DL CALC GLOBULIN (test code = 2240) 3.5 G/DL CALC A/G RATIO (test code = 2234) 1.2 RATIO BILIRUBIN, TOTAL (test code = 2207) 0.3 MG/DL ALKALINE PHOSPHATASE (test code = 2204) 120 U/L AST (test code = 2218) 19 U/L ALT (test code = 2219) 20 U/L COMPREHENSIVE METABOLIC [id number] 00:00:00* Test Item Value Reference Range Interpretation Comme nts GLUCOSE (test code = 2217) 371 MG/DL BUN (test code = 2208) 11 MG/DL CREATININE (test code = 2214) 0.61 MG/DL eGFR AMER. (test cod e = 74432) 123 ML/MIN/1.73 eGFR NON- AMER. (test code = 26241) 106 ML/MIN/1.73 CALC BUN/CREAT (test code = 2235) 18 RATIO SODIUM (test code = 2231) 139 MEQ/L POTASSIUM (test code = 2228) 4.5 MEQ/L CHLORIDE (test code = 2215) 101 MEQ/L CARBON DIOXIDE (test code = 2206) 28 MEQ/L CALCIUM (test code = 2209) 9.4 MG/DL PROTEIN, TOTAL (test code = 2229) 7.6 G/DL ALBUMIN (test code = 2201) 4.1 G/DL CALC GLOBULIN (test code = 2240) 3.5 G/DL CALC A/G RATIO (test code = 2234) 1.2 RATIO BILIRUBIN, TOTAL (test code = 2207) 0.3 MG/DL ALKALINE PHOSPHATASE (test code = 2204) 120 U/L AST (test code = 2218) 19 U/L ALT (test code = 2219) 20 U/L [id number] 00:00:00* Test Item Value Reference Range Interpretation Comme nts TSH, THIRD GENERATION (test code = 2821) 1.180 UIU/ML [id number] 00:00:00* Test Item Value Reference Range Interpretation Comme nts TSH, THIRD GENERATION (test code = 2821) 1.180 UIU/ML [id number] 00:00:00* Test Item Value Reference Range Interpretation Comme nts TSH, THIRD GENERATION (test code = 2821) 1.180 UIU/ML H. PYLORI (BREATH)2021-01-20 00:00:00* Test Item Value Reference Range Interpretation Comme nts H. PYLORI (BREATH) (test cod e = 51450) POSITIVE CBC W/AUTO [id number] 00:00:00* Test Item Value Reference Range Interpretation Comme nts WBC (test code = 1001) 6.7 K/UL RBC (test code = 1002) 4.87 M/UL HEMOGLOBIN (test code = 1003) 13.9 G/DL HEMATOCRIT (test code = 1004) 42.2 % MCV (test code = 1005) 86.7 fL MCH (test code = 1006) 28.5 PG MCHC (test code = 1007) 32.9 G/DL RDW (test code = 1038) 12.3 % NEUTROPHILS (test code = 1008) 59.1 % LYMPHOCYTES (test code = 1010) 30.4 % MONOCYTES (test code = 1011) 7.7 % EOSINOPHILS (test code = 1012) 1.9 % BASOPHILS (test code = 1013) 0.9 % PLATELET COUNT (test code = 1015) 387 K/UL CBC W/AUTO [id number] 00:00:00* Test Item Value Reference Range Interpretation Comme nts WBC (test code = 1001) 6.7 K/UL RBC (test code = 1002) 4.87 M/UL HEMOGLOBIN (test code = 1003) 13.9 G/DL HEMATOCRIT (test code = 1004) 42.2 % MCV (test code = 1005) 86.7 fL MCH (test code = 1006) 28.5 PG MCHC (test code = 1007) 32.9 G/DL RDW (test code = 1038) 12.3 % NEUTROPHILS (test code = 1008) 59.1 % LYMPHOCYTES (test code = 1010) 30.4 % MONOCYTES (test code = 1011) 7.7 % EOSINOPHILS (test code = 1012) 1.9 % BASOPHILS (test code = 1013) 0.9 % PLATELET COUNT (test code = 1015) 387 K/UL HEMOGLOBIN [id number] 00:00:00* Test Item Value Reference Range Interpretation Comme nts HEMOGLOBIN A1c (test code = 74024) 11.1 % HEMOGLOBIN [id number] 00:00:00* Test Item Value Reference Range Interpretation Comme nts HEMOGLOBIN A1c (test code = 72215) 11.1 % LIPID [id number] 00:00:00* Test Item Value Reference Range Interpretation Comme nts CHOLESTEROL (test code = 2210) 185 MG/DL TRIGLYCERIDES (test code = 2232) 190 MG/DL HDL CHOLESTEROL (test code = 2220) 49 MG/DL CALC LDL CHOL (test code = 2237) 105 MG/DL RISK RATIO LDL/HDL (test cod e = 2238) 2.14 RATIO COMPREHENSIVE METABOLIC [id number] 00:00:00* Test Item Value Reference Range Interpretation Comme nts GLUCOSE (test code = 2217) 371 MG/DL BUN (test code = 2208) 11 MG/DL CREATININE (test code = 2214) 0.61 MG/DL eGFR AMER. (test cod e = 18108) 123 ML/MIN/1.73 eGFR NON- AMER. (test code = 05461) 106 ML/MIN/1.73 CALC BUN/CREAT (test code = 2235) 18 RATIO SODIUM (test code = 2231) 139 MEQ/L POTASSIUM (test code = 2228) 4.5 MEQ/L CHLORIDE (test code = 2215) 101 MEQ/L CARBON DIOXIDE (test code = 2206) 28 MEQ/L CALCIUM (test code = 2209) 9.4 MG/DL PROTEIN, TOTAL (test code = 2229) 7.6 G/DL ALBUMIN (test code = 2201) 4.1 G/DL CALC GLOBULIN (test code = 2240) 3.5 G/DL CALC A/G RATIO (test code = 2234) 1.2 RATIO BILIRUBIN, TOTAL (test code = 2207) 0.3 MG/DL ALKALINE PHOSPHATASE (test code = 2204) 120 U/L AST (test code = 2218) 19 U/L ALT (test code = 2219) 20 U/L [id number] 00:00:00* Test Item Value Reference Range Interpretation Comme nts TSH, THIRD GENERATION (test code = 2821) 1.180 UIU/ML [id number] 00:00:00* Test Item Value Reference Range Interpretation Comme nts TSH, THIRD GENERATION (test code = 2821) 1.180 UIU/ML H. PYLORI (BREATH)2021-01-20 00:00:00* Test Item Value Reference Range Interpretation Comme nts H. PYLORI (BREATH) (test cod e = 86832) POSITIVE H. PYLORI (BREATH)2021-01-20 00:00:00* Test Item Value Reference Range Interpretation Comme nts H. PYLORI (BREATH) (test cod e = 06193) POSITIVE CBC W/AUTO [id number] 00:00:00* Test Item Value Reference Range Interpretation Comme nts WBC (test code = 1001) 6.7 K/UL RBC (test code = 1002) 4.87 M/UL HEMOGLOBIN (test code = 1003) 13.9 G/DL HEMATOCRIT (test code = 1004) 42.2 % MCV (test code = 1005) 86.7 fL MCH (test code = 1006) 28.5 PG MCHC (test code = 1007) 32.9 G/DL RDW (test code = 1038) 12.3 % NEUTROPHILS (test code = 1008) 59.1 % LYMPHOCYTES (test code = 1010) 30.4 % MONOCYTES (test code = 1011) 7.7 % EOSINOPHILS (test code = 1012) 1.9 % BASOPHILS (test code = 1013) 0.9 % PLATELET COUNT (test code = 1015) 387 K/UL CBC W/AUTO [id number] 00:00:00* Test Item Value Reference Range Interpretation Comme nts WBC (test code = 1001) 6.7 K/UL RBC (test code = 1002) 4.87 M/UL HEMOGLOBIN (test code = 1003) 13.9 G/DL HEMATOCRIT (test code = 1004) 42.2 % MCV (test code = 1005) 86.7 fL MCH (test code = 1006) 28.5 PG MCHC (test code = 1007) 32.9 G/DL RDW (test code = 1038) 12.3 % NEUTROPHILS (test code = 1008) 59.1 % LYMPHOCYTES (test code = 1010) 30.4 % MONOCYTES (test code = 1011) 7.7 % EOSINOPHILS (test code = 1012) 1.9 % BASOPHILS (test code = 1013) 0.9 % PLATELET COUNT (test code = 1015) 387 K/UL CBC W/AUTO [id number] 00:00:00* Test Item Value Reference Range Interpretation Comme nts WBC (test code = 1001) 6.7 K/UL RBC (test code = 1002) 4.87 M/UL HEMOGLOBIN (test code = 1003) 13.9 G/DL HEMATOCRIT (test code = 1004) 42.2 % MCV (test code = 1005) 86.7 fL MCH (test code = 1006) 28.5 PG MCHC (test code = 1007) 32.9 G/DL RDW (test code = 1038) 12.3 % NEUTROPHILS (test code = 1008) 59.1 % LYMPHOCYTES (test code = 1010) 30.4 % MONOCYTES (test code = 1011) 7.7 % EOSINOPHILS (test code = 1012) 1.9 % BASOPHILS (test code = 1013) 0.9 % PLATELET COUNT (test code = 1015) 387 K/UL HEMOGLOBIN [id number] 00:00:00* Test Item Value Reference Range Interpretation Comme nts HEMOGLOBIN A1c (test code = 56291) 11.1 % HEMOGLOBIN [id number] 00:00:00* Test Item Value Reference Range Interpretation Comme nts HEMOGLOBIN A1c (test code = 50036) 11.1 % HEMOGLOBIN [id number] 00:00:00* Test Item Value Reference Range Interpretation Comme nts HEMOGLOBIN A1c (test code = 58753) 11.1 % LIPID [id number] 00:00:00* Test Item Value Reference Range Interpretation Comme nts CHOLESTEROL (test code = 2210) 185 MG/DL TRIGLYCERIDES (test code = 2232) 190 MG/DL HDL CHOLESTEROL (test code = 2220) 49 MG/DL CALC LDL CHOL (test code = 2237) 105 MG/DL RISK RATIO LDL/HDL (test cod e = 2238) 2.14 RATIO LIPID [id number] 00:00:00* Test Item Value Reference Range Interpretation Comme nts CHOLESTEROL (test code = 2210) 185 MG/DL TRIGLYCERIDES (test code = 2232) 190 MG/DL HDL CHOLESTEROL (test code = 2220) 49 MG/DL CALC LDL CHOL (test code = 2237) 105 MG/DL RISK RATIO LDL/HDL (test cod e = 2238) 2.14 RATIO COMPREHENSIVE METABOLIC [id number] 00:00:00* Test Item Value Reference Range Interpretation Comme nts GLUCOSE (test code = 2217) 371 MG/DL BUN (test code = 2208) 11 MG/DL CREATININE (test code = 2214) 0.61 MG/DL eGFR AMER. (test cod e = 79909) 123 ML/MIN/1.73 eGFR NON- AMER. (test code = 45398) 106 ML/MIN/1.73 CALC BUN/CREAT (test code = 2235) 18 RATIO SODIUM (test code = 2231) 139 MEQ/L POTASSIUM (test code = 2228) 4.5 MEQ/L CHLORIDE (test code = 2215) 101 MEQ/L CARBON DIOXIDE (test code = 2206) 28 MEQ/L CALCIUM (test code = 2209) 9.4 MG/DL PROTEIN, TOTAL (test code = 2229) 7.6 G/DL ALBUMIN (test code = 2201) 4.1 G/DL CALC GLOBULIN (test code = 2240) 3.5 G/DL CALC A/G RATIO (test code = 2234) 1.2 RATIO BILIRUBIN, TOTAL (test code = 2207) 0.3 MG/DL ALKALINE PHOSPHATASE (test code = 2204) 120 U/L AST (test code = 2218) 19 U/L ALT (test code = 2219) 20 U/L COMPREHENSIVE METABOLIC [id number] 00:00:00* Test Item Value Reference Range Interpretation Comme nts GLUCOSE (test code = 2217) 371 MG/DL BUN (test code = 2208) 11 MG/DL CREATININE (test code = 2214) 0.61 MG/DL eGFR AMER. (test cod e = 90191) 123 ML/MIN/1.73 eGFR NON- AMER. (test code = 96917) 106 ML/MIN/1.73 CALC BUN/CREAT (test code = 2235) 18 RATIO SODIUM (test code = 2231) 139 MEQ/L POTASSIUM (test code = 2228) 4.5 MEQ/L CHLORIDE (test code = 2215) 101 MEQ/L CARBON DIOXIDE (test code = 2206) 28 MEQ/L CALCIUM (test code = 2209) 9.4 MG/DL PROTEIN, TOTAL (test code = 2229) 7.6 G/DL ALBUMIN (test code = 2201) 4.1 G/DL CALC GLOBULIN (test code = 2240) 3.5 G/DL CALC A/G RATIO (test code = 2234) 1.2 RATIO BILIRUBIN, TOTAL (test code = 2207) 0.3 MG/DL ALKALINE PHOSPHATASE (test code = 2204) 120 U/L AST (test code = 2218) 19 U/L ALT (test code = 2219) 20 U/L [id number] 00:00:00* Test Item Value Reference Range Interpretation Comme nts TSH, THIRD GENERATION (test code = 2821) 1.180 UIU/ML [id number] 00:00:00* Test Item Value Reference Range Interpretation Comme nts TSH, THIRD GENERATION (test code = 2821) 1.180 UIU/ML [id number] 00:00:00* Test Item Value Reference Range Interpretation Comme nts TSH, THIRD GENERATION (test code = 2821) 1.180 UIU/ML H. PYLORI (BREATH)2021-01-20 00:00:00* Test Item Value Reference Range Interpretation Comme nts H. PYLORI (BREATH) (test cod e = 84342) POSITIVE H. PYLORI (BREATH)2021-01-20 00:00:00* Test Item Value Reference Range Interpretation Comme nts H. PYLORI (BREATH) (test cod e = 21711) POSITIVE COVID-19 (ID NOW RAPID TESTING)2020-12-17 18:20:32* Test Item Value Reference Range Interpretation Comme nts SARS-CoV-2 Rapid ID NOW (test code = 63253-2) Not Detected Not Detected MATTHEW (test code = MATTHEW) ID NOW COVID-19 As say is an isothermal nucleic acid amplification test intended for the qualitative detection of nucleic acid from SARS-CoV-2 viral RNA in nasopharyngeal (DIRECT[employer]PROVEMENT) specimens. It is used under Emergency Use Authorization (EUA) by FDA. The limit of detection (LOD) of the assay is 125 Genome Equivalents/mL. A positive result is indicative of the presence of SARS-CoV-2 RNA. ?Clinical correlation with patient history and other diagnostic information is necessary to determine patient infection status. A negative (Not Detected) result does not preclude SARS-CoV-2 infection. In patients with clinical symptoms and other tests that are consistent with SARS-CoV-2 infection, negative results should be treated as presumptive negative and a new specimen should be tested with alternative PCR molecular test. Invalid: Please collect a new specimen for repeat patient testing if clinically indicated. Lab Interpretation (test code = 10655-5) Normal [facility]2021[facility] 18:20:17* Test Item Value Reference Range Interpretation Comme nts APPEARANCE (test code = 5757057915) Clear Clear COLOR (test code = 7818698494) Yellow Yellow PH (test code = 3113520622) 4.8-8.0 SP GRAVITY (test code = 2743885115) 1.003-1.030 H GLU U QUAL (test code = 5906695162) 500 mg/dL Normal A BLOOD (test code = 9480057008) Negative Negative KETONES (test code = 7179833681) 5 mg/dL Negative A PROTEIN (test code = 2887-8) 30 mg/dL Negative A UROBILIN (test code = 9921457650) Normal Normal BILIRUBIN (test code = 6599525529) Negative Negative NITRITE (test code = 2172414265) Negative Negative LEUK CHASITY (test code = 2352944046) 25/uL Negative A RBC/HPF (test code = 0419018004) See_Comment H [Automated [employer]] The system which generated this result transmitted reference range: 0 - 3 HPF. The reference range was not used to interpret this result as normal/abnormal. WBC/HPF (test code = 9830284552) See_Comment [Automated [employer]] The system which generated this result transmitted reference range: 0 - 5 HPF. The reference range was not used to interpret this result as normal/abnormal. BACTERIA (test code = 0136144016) Few Negative A SQ EPITH (test code = 0795800222) HPF Lab Interpretation (test code = 02583-2) Abnormal [facility] (ALB, T.PRO, BILI T, BU/BC, ALT, AST, ALK PHOS)2020-12-17 18:07:11* Test Item Value Reference Range Interpretation Comme nts TOTAL BILI (test code = 4529844175) 0.6 mg/dL 0.1-1.1 BILI UNCON (test code = 5396707828) 0.5 mg/dL 0.1-1.1 BILI CONJ (test code = 7853852585) 0.0 mg/dL 0.0-0.3 T PROTEIN (test code = 9480051852) 8.2 g/dL 6.3-8.2 ALBUMIN (test code = 0902890300) 4.4 g/dL 3.5-5.0 ALK PHOS (test code = 4337948957) 134 U/L 34-122 H ALTv (test code = 1742-6) 29 U/L 5-35 AST(SGOT) (test code = 7834214613) 35 U/L 13-40 Lab Interpretation (test cod e = 58172-9) Abnormal [facility] Metabolic Panel (NA, K, CL, CO2, GLUCOSE, BUN, CREATININE, CA)2020-12-17 18:06:51* Test Item Value Reference Range Interpretation Comme nts NA (test code = 9238155549) 135 mmol/L 135-145 K (test code = 6249734247) 4.4 mmol/L 3.5-5.0 CL (test code = 3404020622) 96 mmol/L 98-108 L CO2 TOTAL (test code = 0914783728) 31 mmol/L 23-31 AGAP (test code = 3279391075) 2-16 BUN (test code = 1505014330) 13 mg/dL 7-23 GLUCOSE (test code = 6470068871) 370 mg/dL 70-110 H CREATININE (test code = 2718273300) 0.50 mg/dL 0.50-1.04 CALCIUM (test code = 9716708307) 9.2 mg/dL 8.6-10.6 eGFR Calculation (Non-) (test code = 4901871233) mL/min/1.73m2 eGFR Calculation () (test code = 8561686177) mL/min/1.73m2 MATTHEW (test code = MATTHEW) Association of Glomerular Filtration Rate (GFR) and Staging of Kidney Disease* + --+ --+ ------+| GFR (mL/min/1.73 m2) ?| With Kidney Damage ?| ?Without Kidney Damage+ --------+ --------+ +| ?>90 ?| ?Stage one ?| ? Normal ?+ ---+ ---+ -------+| ?60-89 ?| ?Stage two ?| ? Decreased GFR ? + --+ --+ ------+| ?30-59 ?| ?Stage three ?| ? Stage three ? + --+ --+ ------+| ?15-29 ?| ?Stage four ? | ? Stage four ?+ ---+ ---+ -------+| ?<15 (or dialysis) ? ?| ?Stage five ? | ? Stage five ?+ ---+ ---+ -------+ *Each stage assumes the associated GFR level has been in effect for at least three months. ?Stages 1 to 5, with or without kidney disease, indicate chronic kidney disease. Notes: Determination of stages one and two (with eGFR >59mL/min/1.73 m2) requires estimation of kidney damage for at least three months as defined by structural or functional abnormalities of the kidney, manifested by either:Pathological abnormalities or Markers of kidney damage (including abnormalities in the composition of the blood or urine or abnormalities in imaging tests). Lab Interpretation (test code = 34800-2) Abnormal [facility] HospitalLipase [id number] 18:06:51* Test Item Value Reference Range Interpretation Comme [facility] LIPASE (test code = 1326447391) 169 U/L 0-220 Lab Interpretation (test cod e = 22053-5) Normal [facility] HospitalaPTT2021-03-13 18:05:30* Test Item Value Reference Range Interpretation Comme [facility] APTT Patient (test code = 3173-2) See_Comment [Automated message] The system which generated this result transmitted reference range: 23 - 38 Seconds. The reference range was not used to interpret this result as normal/abnormal. MATTHEW (test code = MATTHEW) The [facility] [place] patient population mean normal value for aPTT is 30 seconds. Lab Interpretation (test code = 67671-3) Normal [facility] HospitalProthrombin Time (PT) / [id number] 18:03:29 * Test Item Value Reference Range Interpretation Comme [facility] PROTIME PATIENT (test code = 5964-2) See_Comment [Automated [employer]] The system which generated this result transmitted reference range: 12.0 - 14.7 Seconds. The reference range was not used to interpret this result as normal/abnormal. INR (test code = 6301-6) Normal INR <1.1; Warfarin Therapeutic range 2.0 to 3.0 or 2.5 to 3.5, depending upon the indications. Lab Interpretation (test code = 00257-5) Normal [facility] with [id number] 17:55:29* Test Item Value Reference Range Interpretation Comme nts WBC (test code = 6690-2) See_Comment [Automated messa ge] The system which generated this result transmitted reference range: 4.30 - 11.10 10*3/?L. The reference range was not used to interpret this result as normal/abnormal. RBC (test code = 789-8) See_Comment [Automated messa ge] The system which generated this result transmitted reference range: 3.93 - 5.25 10*6/?L. The reference range was not used to interpret this result as normal/abnormal. HGB (test code = 718-7) 13.3 g/dL 11.6-15.0 HCT (test code = 4544-3) 40.6 % 35.7-45.2 MCV (test code = 787-2) 86.8 fL 80.6-95.5 MCH (test code = 785-6) 28.4 pg 25.9-32.8 MCHC (test code = 786-4) 32.8 g/dL 31.6-35.1 RDW-SD (test code = 83966-4) 39.1 fL 39.0-49.9 RDW-CV (test code = 788-0) 12.3 % 12.0-15.5 PLT (test code = 777-3) See_Comment H [Automated messa ge] The system which generated this result transmitted reference range: 166 - 358 10*3/?L. The reference range was not used to interpret this result as normal/abnormal. MPV (test code = 17450-4) 10.3 fL 9.5-12.9 NRBC/100 WBC (test code = 2708887243) See_Comment [Automated [employer]] The system which generated this result transmitted reference range: 0.0 - 10.0 /100 WBCs. The reference range was not used to interpret this result as normal/abnormal. NRBC x10^3 (test code = 8398444161) <0.01 See_Comment [Automated [employer]] The system which generated this result transmitted reference range: 10*3/?L. The reference range was not used to interpret this result as normal/abnormal. GRAN MAT (NEUT) % (test code = 770-8) 72.0 % IMM GRAN % (test code = 9982371249) 0.40 % LYMPH % (test code = 736-9) 18.4 % MONO % (test code = 5905-5) 6.4 % EOS % (test code = 713-8) 2.2 % BASO % (test code = 706-2) 0.6 % GRAN MAT x10^3(ANC) (test code = 6882717220) 7.61 10*3/uL 1.88-7.09 H IMM GRAN x10^3 (test code = 9242047569) 0.04 10*3/uL 0.00-0.06 LYMPH x10^3 (test code = 731-0) 1.94 10*3/uL 1.32-3.29 MONO x10^3 (test code = 742-7) 0.68 10*3/uL 0.33-0.92 EOS x10^3 (test code = 711-2) 0.23 10*3/uL 0.03-0.39 BASO x10^3 (test code = 704-7) 0.06 10*3/uL 0.01-0.07 Lab Interpretation (test code = 81863-0) Abnormal [facility] HospitalXR [facility] 1 [id number] 14:56:41.No acute cardiopulmonary abnormality Preliminary Report Dictated by Resident: Gurjit Mccrary MD., have reviewed this study and agree with the abovereport.EXAM:XR CHEST 1 VW HISTORY:50 years-old; female; Indication for study: chest pain, dyspnea,fever COMPARISON: Chest radiograph dated 09/26/2020 FINDINGS: Lungs/Pleura: The lungs are clear with no focal consolidation. There is nopleural effusion or pneumothorax. Heart/Mediastinum: The cardiomediastinal silhouette is normal. Bones and soft tissues: No abnormality detected. [facility], Radiant Results Inft User - 10/30/2020 8:57 AM CSTEXAM:XR CHEST 1 VWHISTORY: 50 years-old; female; Indication for study: chest pain, dyspnea,fever COMPARISON: Chest radiograph dated 09/26/2020FINDINGS:Lungs/Pleura: The lungs are clear with no focal consolidation. There is nopleural effusion or pneumothorax.Heart/Mediastinum: The cardiomediastinal silhouette is normal. Bones and soft tissues: No abnormality detected.IMPRESSION.No acute cardiopul monary abnormalityPreliminary Report Dictated by Resident: Keyanna Rey, Gurjit Santamaria MD., have reviewed this study and agree with the abovereport. [facility] HospitalPOCT [id number] 14:14:00* Test Item Value Reference Range Interpretation Comme nts POCT PREG (test code = 1605) negative On board controls acceptable with C Line (test code = 3574) present Lab Interpretation (test cod e = 02549-7) Normal [facility] HospitalD-[id number] 13:53:00* Test Item Value Reference Range Interpretation Comments D-DIMER (test code = 6889727703) See_Comment H [Automated message] The system which generated this result transmitted reference range: <0.41 ?g/mL (FEU). The reference range was not used to interpret this result as normal/abnormal. MATTHEW (test code = MATTHEW) This test may be used in conjunction with a clinical pretest probability (PTP) assessment model to exclude venous thromboembolism (VTE) in patients suspected of deep venous thrombosis (DVT) and pulmonary embolism (PE) A D-Dimer value less than 0.50 ?g/ml (FEU) has a negative predicative value of 96 to 100% (95% CI)and 97 to 100% (95% CI) as an aid in the diagnosis of deep vein thrombosis (DVT) and pulmonary embolism when there is low or moderate pretest probability of PE or DVT. D-Dimer values are expressed in initial fibrinogen equivalent units (FEU)" The assay results should be used with other information, including the clinical context, in forming a diagnosis. Lab Interpretation (test code = 53190-8) Abnormal [facility] HospitalPregnancy Test, [id number] 13:40:00* Test Item Value Reference Range Interpretation Comme nts PREG SERUM (test code = 9535587950) Negative MATTHEW (test code = MATTHEW) Less than 10 IU/L. ?If low titer or ectopic is suspected, resubmit specimen in 48-72 hours. [facility] HospitalTroponin [id number] 13:36:00* Test Item Value Reference Range Interpretation Comme nts TROPONIN I (test code = 8816096169) <0.012 See_Comment [Automated message] The system which generated this result transmitted reference range: <=0.034 ng/mL. The reference range was not used to interpret this result as normal/abnormal. MATTHEW (test code = MATTHEW) Equal or Less than 0.034 ng/ml---Normal ?Note: Cardiac troponin begins to rise 3-4 hours after the onset of ischemia. Repeat in 4-6 hours if the sample was drawn within 3-4 hours of the onset of the symptom and found normal. Between 0.035 and 0.120 ng/mL--- Borderline. Questionable myocardial injury or necrosis ? ?Note: Serial measurement may be necessary to confirm or exclude the diagnosis of myocardial injury or necrosis; Clinical correlation (symptoms, EKGs, imaging studies, and others) required; Repeat in 4-6 hours if clinically indicated. ? Equal or Higher than 0.121 ng/mL---Abnormal. Myocardial Injury or Necrosis Likely ? Biotin has been reported to cause a negative bias, interpret results relative to patient's use of biotin. ? Lab Interpretation (test code = 43828-8) Normal [facility] HospitalaPTT2021-01-24 13:35:00* Test Item Value Reference Range Interpretation Comme nts APTT Patient (test code = 3173-2) See_Comment [Automated message] The system which generated this result transmitted reference range: 23 - 38 Seconds. The reference range was not used to interpret this result as normal/abnormal. MATTHEW (test code = MATTHEW) The [facility] [place] patient population mean normal value for aPTT is 30 seconds. Lab Interpretation (test code = 07369-3) Normal [facility] HospitalProthrombin Time (PT) / [id number] 13:33:00 * Test Item Value Reference Range Interpretation Comme [facility] PROTIME PATIENT (test code = 5964-2) See_Comment [Automated [employer]] The system which generated this result transmitted reference range: 12.0 - 14.7 Seconds. The reference range was not used to interpret this result as normal/abnormal. INR (test code = 6301-6) Normal INR <1.1; Warfarin Therapeutic range 2.0 to 3.0 or 2.5 to 3.5, depending upon the indications. Lab Interpretation (test code = 26587-3) Normal [facility] HospitalBasi Metabolic Panel (NA, K, CL, CO2, GLUCOSE, BUN, CREATININE, CA)2020-10-30 13:25:00* Test Item Value Reference Range Interpretation Comme [facility] NA (test code = 3174248596) 137 mmol/L 135-145 K (test code = 5366429931) 4.4 mmol/L 3.5-5 CL (test code = 6818247702) 101 mmol/L 98-108 CO2 TOTAL (test code = 2654358680) 28 mmol/L 23-31 AGAP (test code = 0384529775) 2-16 BUN (test code = 5830048687) 12 mg/dL 7-23 GLUCOSE (test code = 7260858792) 195 mg/dL 70-110 H CREATININE (test code = 4236564806) 0.42 mg/dL 0.5-1.04 L CALCIUM (test code = 1690094431) 9.2 mg/dL 8.6-10.6 eGFR Calculation (Non-) (test code = 0307872295) mL/min/1.73m2 eGFR Calculation () (test code = 6872738414) mL/min/1.73m2 MATTHEW (test code = MATTHEW) Association of Glomerular Filtration Rate (GFR) and Staging of Kidney Disease* + --+ --+ ------+| GFR (mL/min/1.73 m2) ?| With Kidney Damage ?| ?Without Kidney Damage+ --------+ --------+ +| ?>90 ?| ?Stage one ?| ? Normal ?+ ---+ ---+ -------+| ?60-89 ?| ?Stage two ?| ? Decreased GFR ? + --+ --+ ------+| ?30-59 ?| ?Stage three ?| ? Stage three ? + --+ --+ ------+| ?15-29 ?| ?Stage four ? | ? Stage four ?+ ---+ ---+ -------+| ?<15 (or dialysis) ? ?| ?Stage five ? | ? Stage five ?+ ---+ ---+ -------+ *Each stage assumes the associated GFR level has been in effect for at least three months. ?Stages 1 to 5, with or without kidney disease, indicate chronic kidney disease. Notes: Determination of stages one and two (with eGFR >59mL/min/1.73 m2) requires estimation of kidney damage for at least three months as defined by structural or functional abnormalities of the kidney, manifested by either:Pathological abnormalities or Markers of kidney damage (including abnormalities in the composition of the blood or urine or abnormalities in imaging tests). Lab Interpretation (test code = 73843-7) Abnormal [facility] HospitalHepatic Function Panel (ALB, T.PRO, BILI T, BU/BC, ALT, AST, ALK PHOS)2020-10-30 13:25:00* Test Item Value Reference Range Interpretation Comme nts TOTAL BILI (test code = 7351522400) 1.1 mg/dL 0.1-1.1 BILI UNCON (test code = 9031147245) 0.8 mg/dL 0.1-1.1 BILI CONJ (test code = 7060904283) 0.0 mg/dL 0-0.3 T PROTEIN (test code = 9659986236) 8.2 g/dL 6.3-8.2 ALBUMIN (test code = 7159582254) 4.2 g/dL 3.5-5 ALK PHOS (test code = 1833043877) 109 U/L 34-122 ALTv (test code = 1742-6) 23 U/L 5-35 AST(SGOT) (test code = 5959016028) 35 U/L 13-40 Lab Interpretation (test cod e = 11619-5) Normal [facility] HospitalADC,CLC OR LCC ONLY - INFLUENZA A & B DIRECT [id number] 13:21:00* Test Item Value Reference Range Interpretation Comme nts Influenza A (test code = 25394-7) Negative Negative Influenza B (test code = 08434-3) Negative Negative Lab Interpretation (test cod e = 77665-9) Normal [facility] STREP SCREEN FOR GROUP [id number] 13:21:00* Test Item Value Reference Range Interpretation Comme nts Streptococcus pyogenes (grou p A) antigen (test code = 73822-9) Negative Negative Lab Interpretation (test cod e = 07737-0) Normal [facility] HospitalCOVID-19 (ID NOW RAPID TESTING)2020-10-30 13:18:00* Test Item Value Reference Range Interpretation Comme nts SARS-CoV-2 Rapid ID NOW (test code = 74688-2) Not Detected Not Detected MATTHEW (test code = MATTHEW) ID NOW COVID-19 As say is an isothermal nucleic acid amplification test intended for the qualitative detection of nucleic acid from SARS-CoV-2 viral RNA in nasopharyngeal (DIRECTOR [employer]PROVEMENT) specimens. It is used under Emergency Use Authorization (EUA) by FDA. The limit of detection (LOD) of the assay is 125 Genome Equivalents/mL. A positive result is indicative of the presence of SARS-CoV-2 RNA. ?Clinical correlation with patient history and other diagnostic information is necessary to determine patient infection status. A negative (Not Detected) result does not preclude SARS-CoV-2 infection. In patients with clinical symptoms and other tests that are consistent with SARS-CoV-2 infection, negative results should be treated as presumptive negative and a new specimen should be tested with alternative PCR molecular test. Invalid: Please collect a new specimen for repeat patient testing if clinically indicated. Lab Interpretation (test code = 44977-1) Normal [facility] with [id number] 13:05:00* Test Item Value Reference Range Interpretation Comme nts WBC (test code = 6690-2) See_Comment H [Automated [employer]] The system which generated this result transmitted reference range: 4.30 - 11.10 10*3/?L. The reference range was not used to interpret this result as normal/abnormal. RBC (test code = 789-8) See_Comment [Automated [employer]] The system which generated this result transmitted reference range: 3.93 - 5.25 10*6/?L. The reference range was not used to interpret this result as normal/abnormal. HGB (test code = 718-7) 12.9 g/dL 11.6-15 HCT (test code = 4544-3) 39.8 % 35.7-45.2 MCV (test code = 787-2) 89.4 fL 80.6-95.5 MCH (test code = 785-6) 29.0 pg 25.9-32.8 MCHC (test code = 786-4) 32.4 g/dL 31.6-35.1 RDW-SD (test code = 66364-1) 41.0 fL 39-49.9 RDW-CV (test code = 788-0) 12.4 % 12-15.5 PLT (test code = 777-3) See_Comment H [Automated messa ge] The system which generated this result transmitted reference range: 166 - 358 10*3/?L. The reference range was not used to interpret this result as normal/abnormal. MPV (test code = 75254-4) 10.5 fL 9.5-12.9 NRBC/100 WBC (test code = 5735549597) See_Comment [Automated [employer]] The system which generated this result transmitted reference range: 0.0 - 10.0 /100 WBCs. The reference range was not used to interpret this result as normal/abnormal. NRBC x10^3 (test code = 2122231333) <0.01 See_Comment [Automated messa ge] The system which generated this result transmitted reference range: 10*3/?L. The reference range was not used to interpret this result as normal/abnormal. GRAN MAT (NEUT) % (test code = 770-8) 66.0 % IMM GRAN % (test code = 2606790499) 0.40 % LYMPH % (test code = 736-9) 19.5 % MONO % (test code = 5905-5) 9.3 % EOS % (test code = 713-8) 4.2 % BASO % (test code = 706-2) 0.6 % GRAN MAT x10^3(ANC) (test code = 8440520791) 7.63 10*3/uL 1.88-7.09 H IMM GRAN x10^3 (test code = 3187396552) 0.05 10*3/uL 0-0.06 LYMPH x10^3 (test code = 731-0) 2.26 10*3/uL 1.32-3.29 MONO x10^3 (test code = 742-7) 1.08 10*3/uL 0.33-0.92 H EOS x10^3 (test code = 711-2) 0.49 10*3/uL 0.03-0.39 H BASO x10^3 (test code = 704-7) 0.07 10*3/uL 0.01-0.07 Lab Interpretation (test code = 49130-3) [facility]2020-10-12 00:00:00* Test Item Value Reference Range Interpretation Comme nts MAGNESIUM (test code = 2226) 2.0 MG/DL COMPREHENSIVE METABOLIC PANEL [ADDED]2020-10-12 00:00:00* Test Item Value Reference Range Interpretation Comme nts GLUCOSE (test code = 2217) 423 MG/DL BUN (test code = 2208) 11 MG/DL CREATININE (test code = 2214) 0.73 MG/DL eGFR AMER. (test cod e = 39916) 112 ML/MIN/1.73 eGFR NON- AMER. (test code = 41973) 97 ML/MIN/1.73 CALC BUN/CREAT (test code = 2235) 15 RATIO SODIUM (test code = 2231) 139 MEQ/L POTASSIUM (test code = 2228) 4.2 MEQ/L CHLORIDE (test code = 2215) 97 MEQ/L CARBON DIOXIDE (test code = 2206) 29 MEQ/L CALCIUM (test code = 2209) 9.6 MG/DL PROTEIN, TOTAL (test code = 2229) 7.4 G/DL ALBUMIN (test code = 2201) 4.1 G/DL CALC GLOBULIN (test code = 2240) 3.3 G/DL CALC A/G RATIO (test code = 2234) 1.2 RATIO BILIRUBIN, TOTAL (test code = 2207) 0.5 MG/DL ALKALINE PHOSPHATASE (test code = 2204) 110 U/L AST (test code = 2218) 18 U/L ALT (test code = 2219) 22 U/L COMPREHENSIVE METABOLIC PANEL [ADDED]2020-10-12 00:00:00* Test Item Value Reference Range Interpretation Comme nts GLUCOSE (test code = 2217) 423 MG/DL BUN (test code = 2208) 11 MG/DL CREATININE (test code = 2214) 0.73 MG/DL eGFR AMER. (test cod e = 21941) 112 ML/MIN/1.73 eGFR NON- AMER. (test code = 71406) 97 ML/MIN/1.73 CALC BUN/CREAT (test code = 2235) 15 RATIO SODIUM (test code = 2231) 139 MEQ/L POTASSIUM (test code = 2228) 4.2 MEQ/L CHLORIDE (test code = 2215) 97 MEQ/L CARBON DIOXIDE (test code = 2206) 29 MEQ/L CALCIUM (test code = 2209) 9.6 MG/DL PROTEIN, TOTAL (test code = 2229) 7.4 G/DL ALBUMIN (test code = 2201) 4.1 G/DL CALC GLOBULIN (test code = 2240) 3.3 G/DL CALC A/G RATIO (test code = 2234) 1.2 RATIO BILIRUBIN, TOTAL (test code = 2207) 0.5 MG/DL ALKALINE PHOSPHATASE (test code = 2204) 110 U/L AST (test code = 2218) 18 U/L ALT (test code = 2219) 22 U/L MAGNESIUM [ADDED]2020-10-12 00:00:00* Test Item Value Reference Range Interpretation Comme nts MAGNESIUM (test code = 2226) 2.0 MG/DL MAGNESIUM [ADDED]2020-10-12 00:00:00* Test Item Value Reference Range Interpretation Comme nts MAGNESIUM (test code = 2226) 2.0 MG/DL MAGNESIUM [ADDED]2020-10-12 00:00:00* Test Item Value Reference Range Interpretation Comme nts MAGNESIUM (test code = 2226) 2.0 MG/DL COMPREHENSIVE METABOLIC PANEL [ADDED]2020-10-12 00:00:00* Test Item Value Reference Range Interpretation Comme nts GLUCOSE (test code = 2217) 423 MG/DL BUN (test code = 2208) 11 MG/DL CREATININE (test code = 2214) 0.73 MG/DL eGFR AMER. (test cod e = 15916) 112 ML/MIN/1.73 eGFR NON- AMER. (test code = 97271) 97 ML/MIN/1.73 CALC BUN/CREAT (test code = 2235) 15 RATIO SODIUM (test code = 2231) 139 MEQ/L POTASSIUM (test code = 2228) 4.2 MEQ/L CHLORIDE (test code = 2215) 97 MEQ/L CARBON DIOXIDE (test code = 2206) 29 MEQ/L CALCIUM (test code = 2209) 9.6 MG/DL PROTEIN, TOTAL (test code = 2229) 7.4 G/DL ALBUMIN (test code = 2201) 4.1 G/DL CALC GLOBULIN (test code = 2240) 3.3 G/DL CALC A/G RATIO (test code = 2234) 1.2 RATIO BILIRUBIN, TOTAL (test code = 2207) 0.5 MG/DL ALKALINE PHOSPHATASE (test code = 2204) 110 U/L AST (test code = 2218) 18 U/L ALT (test code = 2219) 22 U/L COMPREHENSIVE METABOLIC PANEL [ADDED]2020-10-12 00:00:00* Test Item Value Reference Range Interpretation Comme nts GLUCOSE (test code = 2217) 423 MG/DL BUN (test code = 2208) 11 MG/DL CREATININE (test code = 2214) 0.73 MG/DL eGFR AMER. (test cod e = 39617) 112 ML/MIN/1.73 eGFR NON- AMER. (test code = 71544) 97 ML/MIN/1.73 CALC BUN/CREAT (test code = 2235) 15 RATIO SODIUM (test code = 2231) 139 MEQ/L POTASSIUM (test code = 2228) 4.2 MEQ/L CHLORIDE (test code = 2215) 97 MEQ/L CARBON DIOXIDE (test code = 2206) 29 MEQ/L CALCIUM (test code = 2209) 9.6 MG/DL PROTEIN, TOTAL (test code = 2229) 7.4 G/DL ALBUMIN (test code = 2201) 4.1 G/DL CALC GLOBULIN (test code = 2240) 3.3 G/DL CALC A/G RATIO (test code = 2234) 1.2 RATIO BILIRUBIN, TOTAL (test code = 2207) 0.5 MG/DL ALKALINE PHOSPHATASE (test code = 2204) 110 U/L AST (test code = 2218) 18 U/L ALT (test code = 2219) 22 U/L MAGNESIUM [ADDED]2020-10-12 00:00:00* Test Item Value Reference Range Interpretation Comme nts MAGNESIUM (test code = 2226) 2.0 MG/DL MAGNESIUM [ADDED]2020-10-12 00:00:00* Test Item Value Reference Range Interpretation Comme nts MAGNESIUM (test code = 2226) 2.0 MG/DL COMPREHENSIVE METABOLIC PANEL [ADDED]2020-10-12 00:00:00* Test Item Value Reference Range Interpretation Comme nts GLUCOSE (test code = 2217) 423 MG/DL BUN (test code = 2208) 11 MG/DL CREATININE (test code = 2214) 0.73 MG/DL eGFR AMER. (test cod e = 66042) 112 ML/MIN/1.73 eGFR NON- AMER. (test code = 88959) 97 ML/MIN/1.73 CALC BUN/CREAT (test code = 2235) 15 RATIO SODIUM (test code = 2231) 139 MEQ/L POTASSIUM (test code = 2228) 4.2 MEQ/L CHLORIDE (test code = 2215) 97 MEQ/L CARBON DIOXIDE (test code = 2206) 29 MEQ/L CALCIUM (test code = 2209) 9.6 MG/DL PROTEIN, TOTAL (test code = 2229) 7.4 G/DL ALBUMIN (test code = 2201) 4.1 G/DL CALC GLOBULIN (test code = 2240) 3.3 G/DL CALC A/G RATIO (test code = 2234) 1.2 RATIO BILIRUBIN, TOTAL (test code = 2207) 0.5 MG/DL ALKALINE PHOSPHATASE (test code = 2204) 110 U/L AST (test code = 2218) 18 U/L ALT (test code = 2219) 22 U/L MAGNESIUM [ADDED]2020-10-12 00:00:00* Test Item Value Reference Range Interpretation Comme nts MAGNESIUM (test code = 2226) 2.0 MG/DL MAGNESIUM [ADDED]2020-10-12 00:00:00* Test Item Value Reference Range Interpretation Comme nts MAGNESIUM (test code = 2226) 2.0 MG/DL MAGNESIUM [ADDED]2020-10-12 00:00:00* Test Item Value Reference Range Interpretation Comme nts MAGNESIUM (test code = 2226) 2.0 MG/DL COMPREHENSIVE METABOLIC PANEL [ADDED]2020-10-12 00:00:00* Test Item Value Reference Range Interpretation Comme nts GLUCOSE (test code = 2217) 423 MG/DL BUN (test code = 2208) 11 MG/DL CREATININE (test code = 2214) 0.73 MG/DL eGFR AMER. (test cod e = 07988) 112 ML/MIN/1.73 eGFR NON- AMER. (test code = 86116) 97 ML/MIN/1.73 CALC BUN/CREAT (test code = 2235) 15 RATIO SODIUM (test code = 2231) 139 MEQ/L POTASSIUM (test code = 2228) 4.2 MEQ/L CHLORIDE (test code = 2215) 97 MEQ/L CARBON DIOXIDE (test code = 2206) 29 MEQ/L CALCIUM (test code = 2209) 9.6 MG/DL PROTEIN, TOTAL (test code = 2229) 7.4 G/DL ALBUMIN (test code = 2201) 4.1 G/DL CALC GLOBULIN (test code = 2240) 3.3 G/DL CALC A/G RATIO (test code = 2234) 1.2 RATIO BILIRUBIN, TOTAL (test code = 2207) 0.5 MG/DL ALKALINE PHOSPHATASE (test code = 2204) 110 U/L AST (test code = 2218) 18 U/L ALT (test code = 2219) 22 U/L COMPREHENSIVE METABOLIC PANEL [ADDED]2020-10-12 00:00:00* Test Item Value Reference Range Interpretation Comme nts GLUCOSE (test code = 2217) 423 MG/DL BUN (test code = 2208) 11 MG/DL CREATININE (test code = 2214) 0.73 MG/DL eGFR AMER. (test cod e = 70281) 112 ML/MIN/1.73 eGFR NON- AMER. (test code = 81587) 97 ML/MIN/1.73 CALC BUN/CREAT (test code = 2235) 15 RATIO SODIUM (test code = 2231) 139 MEQ/L POTASSIUM (test code = 2228) 4.2 MEQ/L CHLORIDE (test code = 2215) 97 MEQ/L CARBON DIOXIDE (test code = 2206) 29 MEQ/L CALCIUM (test code = 2209) 9.6 MG/DL PROTEIN, TOTAL (test code = 2229) 7.4 G/DL ALBUMIN (test code = 2201) 4.1 G/DL CALC GLOBULIN (test code = 2240) 3.3 G/DL CALC A/G RATIO (test code = 2234) 1.2 RATIO BILIRUBIN, TOTAL (test code = 2207) 0.5 MG/DL ALKALINE PHOSPHATASE (test code = 2204) 110 U/L AST (test code = 2218) 18 U/L ALT (test code = 2219) 22 U/L MAGNESIUM [ADDED]2020-10-12 00:00:00* Test Item Value Reference Range Interpretation Comme nts MAGNESIUM (test code = 2226) 2.0 MG/DL MAGNESIUM [ADDED]2020-10-12 00:00:00* Test Item Value Reference Range Interpretation Comme nts MAGNESIUM (test code = 2226) 2.0 MG/DL SARS-CoV-2 (COVID-19) by RT-PCR (HIGH RISK)2020-10-06 00:00:00* Test Item Value Reference Range Interpretation Comme nts SARS-CoV-2 INTERPRETATION (t est code = 14583) NEGATIVE SOURCE (test code = 94529) NOT SPECIFIED SARS-CoV-2 (COVID-19) by RT-PCR (HIGH RISK)2020-10-06 00:00:00* Test Item Value Reference Range Interpretation Comme nts SARS-CoV-2 INTERPRETATION (t est code = 60323) NEGATIVE SOURCE (test code = 21702) NOT SPECIFIED SARS-CoV-2 (COVID-19) by RT-PCR (HIGH RISK)2020-10-06 00:00:00* Test Item Value Reference Range Interpretation Comme nts SARS-CoV-2 INTERPRETATION (t est code = 60485) NEGATIVE SOURCE (test code = 39823) NOT SPECIFIED SARS-CoV-2 (COVID-19) by RT-PCR (HIGH RISK)2020-10-06 00:00:00* Test Item Value Reference Range Interpretation Comme nts SARS-CoV-2 INTERPRETATION (t est code = 03094) NEGATIVE SOURCE (test code = 60346) NOT SPECIFIED SARS-CoV-2 (COVID-19) by RT-PCR (HIGH RISK)2020-10-06 00:00:00* Test Item Value Reference Range Interpretation Comme nts SARS-CoV-2 INTERPRETATION (t est code = 44199) NEGATIVE SOURCE (test code = 89665) NOT SPECIFIED SARS-CoV-2 (COVID-19) by RT-PCR (HIGH RISK)2020-10-06 00:00:00* Test Item Value Reference Range Interpretation Comme nts SARS-CoV-2 INTERPRETATION (t est code = 47480) NEGATIVE SOURCE (test code = 69812) NOT SPECIFIED SARS-CoV-2 (COVID-19) by RT-PCR (HIGH RISK)2020-10-06 00:00:00* Test Item Value Reference Range Interpretation Comme nts SARS-CoV-2 INTERPRETATION (t est code = 31885) NEGATIVE SOURCE (test code = 01453) NOT SPECIFIED XR CHEST 1 [id number] 00:19:17Grossly unchanged streaky opacities associated with known COVID 19pneumonia. Preliminary Report Dictated by Resident: Gurjit Clark MD., have reviewed this study and agree with the ab overeport.EXAM: XR CHEST 1 VW HISTORY: 50 years-old Female; SOB TECHNIQUE: Single frontal view COMPARISON: Chest radiograph 09/01/2020 FINDINGS: Bilateral streaky opacities are grossly unchanged fromthe priorradiograph. The lungs remain moderately underinflated and are withoutpleural effusion or pneumothorax. The cardiomediastinal silhouette is normal. No acute osseous abnormality is present. [facility], Radiant Results Inft User - 09/26/2020 6:20 PM CSTEXAM: XR CHEST 1 VWHISTORY: 50 years-old Female; SOB TECHNIQUE: Single frontal viewCOMPARISON: Chest radiograph 09/01/2020FINDINGS:Bilateral streaky opacities are grossly unchanged from the priorradiograph. The lungs remain moderately underinflated and are withoutpleural effusion or pneumothorax.The cardiomediastinal silhouette is normal. No acute osseous abnormality is present. IMPRESSIONGrossly unchanged streaky opacities associated with known COVID 19pneumonia.Preliminary Report Dictated by Resident: Gurjit Lerma MD., have reviewed this study and agree with the abovereport.[facility] 2020-[facility]-26 23:37:00* Test Item Value Reference Range Interpretation Comme nts APPEARANCE (test code = 4943363483) Clear Clear COLOR (test code = 9546337443) Yellow Yellow PH (test code = 8207863491) 4.8-8.0 SP GRAVITY (test code = 0450796205) 1.003-1.030 GLU U QUAL (test code = 4180483337) Normal Normal BLOOD (test code = 9954899575) Negative Negative KETONES (test code = 6663609738) Negative Negative PROTEIN (test code = 2887-8) Negative Negative UROBILIN (test code = 3733133691) Normal Normal BILIRUBIN (test code = 1578133017) Negative Negative NITRITE (test code = 5277215278) Negative Negative LEUK CHASITY (test code = 0839199274) 500/uL Negative A RBC/HPF (test code = 0113142021) See_Comment [[employer]ated [employer]] The system which generated this result transmitted reference range: 0 - 3 HPF. The reference range was not used to interpret this result as normal/abnormal. WBC/HPF (test code = 6786964135) See_Comment H [[employer]] The system which generated this result transmitted reference range: 0 - 5 HPF. The reference range was not used to interpret this result as normal/abnormal. BACTERIA (test code = 5914314775) Few Negative A MUCOUS (test code = 8333920028) Slight Negative LPF A SQ EPITH (test code = 8741254170) HPF TRANS EPI (test code = 0979775196) <1 See_Comment [Automated [employer]] The system which generated this result transmitted reference range: <=1 HPF. The reference range was not used to interpret this result as normal/abnormal. Lab Interpretation (test code = 88740-3) Abnormal [facility] [id number] 22:39:00* Test Item Value Reference Range Interpretation Comme nts TROPONIN I (test code = 9214992472) <0.012 See_Comment [Automated message] The system which generated this result transmitted reference range: <=0.034 ng/mL. The reference range was not used to interpret this result as normal/abnormal. MATTHEW (test code = MATTHEW) Equal or Less than 0.034 ng/ml---Normal ?Note: Cardiac troponin begins to rise 3-4 hours after the onset of ischemia. Repeat in 4-6 hours if the sample was drawn within 3-4 hours of the onset of the symptom and found normal. Between 0.035 and 0.120 ng/mL--- Borderline. Questionable myocardial injury or necrosis ? ?Note: Serial measurement may be necessary to confirm or exclude the diagnosis of myocardial injury or necrosis; Clinical correlation (symptoms, EKGs, imaging studies, and others) required; Repeat in 4-6 hours if clinically indicated. ? Equal or Higher than 0.121 ng/mL---Abnormal. Myocardial Injury or Necrosis Likely ? Biotin has been reported to cause a negative bias, interpret results relative to patient's use of biotin. ? Lab Interpretation (test code = 35249-2) Normal [facility] [id number] 22:36:00* Test Item Value Reference Range Interpretation Comme nts NT-proBNP (test code = 9388816311) 54 pg/mL See_Comment [Automated message] The system which generated this result transmitted reference range: <=125. The reference range was not used to interpret this result as normal/abnormal. MATTHEW (test code = MATTHEW) Biotin has been reported to cause a negative bias, interpret results relative to patient's use of biotin. Lab Interpretation (test code = 37244-0) Normal [facility]OLIC PAN[facility] (45639)2020-09-26 22:28:00* Test Item Value Reference Range Interpretation Comme nts NA (test code = 4767396170) 137 mmol/L 135-145 K (test code = 5324444549) 3.2 mmol/L 3.5-5 L CL (test code = 8507350801) 97 mmol/L 98-108 L CO2 TOTAL (test code = 3143889266) 30 mmol/L 23-31 AGAP (test code = 5789568907) 2-16 BUN (test code = 3554282383) 9 mg/dL 7-23 GLUCOSE (test code = 7536491777) 191 mg/dL 70-110 H CREATININE (test code = 8698979821) 0.52 mg/dL 0.5-1.04 TOTAL BILI (test code = 9686182895) 0.8 mg/dL 0.1-1.1 CALCIUM (test code = 9877485169) 8.9 mg/dL 8.6-10.6 T PROTEIN (test code = 8642760496) 7.4 g/dL 6.3-8.2 ALBUMIN (test code = 3853975637) 4.1 g/dL 3.5-5 ALK PHOS (test code = 6635764799) 98 U/L 34-122 ALTv (test code = 1742-6) 19 U/L 5-35 AST(SGOT) (test code = 2472003456) 21 U/L 13-40 eGFR Calculation (Non-) (test code = 1364759628) mL/min/1.73m2 eGFR Calculation () (test code = 4819824650) mL/min/1.73m2 MATTHEW (test code = MATTHEW) Association of Glomerular Filtration Rate (GFR) and Staging of Kidney Disease* + --+ --+ ------+| GFR (mL/min/1.73 m2) ?| With Kidney Damage ?| ?Without Kidney Damage+ --------+ --------+ +| ?>90 ?| ?Stage one ?| ? Normal ?+ ---+ ---+ -------+| ?60-89 ?| ?Stage two ?| ? Decreased GFR ? + --+ --+ ------+| ?30-59 ?| ?Stage three ?| ? Stage three ? + --+ --+ ------+| ?15-29 ?| ?Stage four ? | ? Stage four ?+ ---+ ---+ -------+| ?<15 (or dialysis) ? ?| ?Stage five ? | ? Stage five ?+ ---+ ---+ -------+ *Each stage assumes the associated GFR level has been in effect for at least three months. ?Stages 1 to 5, with or without kidney disease, indicate chronic kidney disease. Notes: Determination of stages one and two (with eGFR >59mL/min/1.73 m2) requires estimation of kidney damage for at least three months as defined by structural or functional abnormalities of the kidney, manifested by either:Pathological abnormalities or Markers of kidney damage (including abnormalities in the composition of the blood or urine or abnormalities in imaging tests). Lab Interpretation (test code = 93868-4) [facility]normal [facility] 22:27:00* Test Item Value Reference Range Interpretation Comme nts LIPASE (test code = 6301732010) 90 U/L 0-220 Lab Interpretation (test cod e = 11006-0) Normal [facility] WITH [id number] 22:26:00* Test Item Value Reference Range Interpretation Comme nts WBC (test code = 6690-2) See_Comment [Automated messa ge] The system which generated this result transmitted reference range: 4.30 - 11.10 10*3/?L. The reference range was not used to interpret this result as normal/abnormal. RBC (test code = 789-8) See_Comment [Automated messa ge] The system which generated this result transmitted reference range: 3.93 - 5.25 10*6/?L. The reference range was not used to interpret this result as normal/abnormal. HGB (test code = 718-7) 12.8 g/dL 11.6-15 HCT (test code = 4544-3) 39.3 % 35.7-45.2 MCV (test code = 787-2) 88.7 fL 80.6-95.5 MCH (test code = 785-6) 28.9 pg 25.9-32.8 MCHC (test code = 786-4) 32.6 g/dL 31.6-35.1 RDW-SD (test code = 43794-7) 40.6 fL 39-49.9 RDW-CV (test code = 788-0) 12.4 % 12-15.5 PLT (test code = 777-3) See_Comment H [Automated messa ge] The system which generated this result transmitted reference range: 166 - 358 10*3/?L. The reference range was not used to interpret this result as normal/abnormal. MPV (test code = 39198-5) 10.3 fL 9.5-12.9 NRBC/100 WBC (test code = 4624094192) See_Comment [Automated [employer]] The system which generated this result transmitted reference range: 0.0 - 10.0 /100 WBCs. The reference range was not used to interpret this result as normal/abnormal. NRBC x10^3 (test code = 5717042540) <0.01 See_Comment [Automated messa ge] The system which generated this result transmitted reference range: 10*3/?L. The reference range was not used to interpret this result as normal/abnormal. GRAN MAT (NEUT) % (test code = 770-8) 65.8 % IMM GRAN % (test code = 2330351250) 0.50 % LYMPH % (test code = 736-9) 22.4 % MONO % (test code = 5905-5) 8.9 % EOS % (test code = 713-8) 2.1 % BASO % (test code = 706-2) 0.3 % GRAN MAT x10^3(ANC) (test code = 3276017750) 7.21 10*3/uL 1.88-7.09 H IMM GRAN x10^3 (test code = 2729422644) 0.06 10*3/uL 0-0.06 LYMPH x10^3 (test code = 731-0) 2.45 10*3/uL 1.32-3.29 MONO x10^3 (test code = 742-7) 0.98 10*3/uL 0.33-0.92 H EOS x10^3 (test code = 711-2) 0.23 10*3/uL 0.03-0.39 BASO x10^3 (test code = 704-7) 0.03 10*3/uL 0.01-0.07 Lab Interpretation (test code = 13310-7) [facility]normal [facility] ([facility]OVID-[facility]) by RT-PCR (HIGH RISK) 2020-09-25 00:00:00* Test Item Value Reference Range Interpretation Comme nts SARS-CoV-2 INTERPRETATION (t est code = 26907) POSITIVE SOURCE (test code = 55434) NOT SPECIFIED SARS-CoV-2 (COVID-19) by RT-PCR (HIGH RISK)2020-09-25 00:00:00* Test Item Value Reference Range Interpretation Comme nts SARS-CoV-2 INTERPRETATION (t est code = 66133) POSITIVE SOURCE (test code = 55980) NOT SPECIFIED SARS-CoV-2 (COVID-19) by RT-PCR (HIGH RISK)2020-09-25 00:00:00* Test Item Value Reference Range Interpretation Comme nts SARS-CoV-2 INTERPRETATION (t est code = 78576) POSITIVE SOURCE (test code = 45881) NOT SPECIFIED SARS-CoV-2 (COVID-19) by RT-PCR (HIGH RISK)2020-09-25 00:00:00* Test Item Value Reference Range Interpretation Comme nts SARS-CoV-2 INTERPRETATION (t est code = 40611) POSITIVE SOURCE (test code = 81265) NOT SPECIFIED SARS-CoV-2 (COVID-19) by RT-PCR (HIGH RISK)2020-09-25 00:00:00* Test Item Value Reference Range Interpretation Comme nts SARS-CoV-2 INTERPRETATION (t est code = 23418) POSITIVE SOURCE (test code = 59327) NOT SPECIFIED SARS-CoV-2 (COVID-19) by RT-PCR (HIGH RISK)2020-09-25 00:00:00* Test Item Value Reference Range Interpretation Comme nts SARS-CoV-2 INTERPRETATION (t est code = 46284) POSITIVE SOURCE (test code = 79177) NOT SPECIFIED SARS-CoV-2 (COVID-19) by RT-PCR (HIGH RISK)2020-09-25 00:00:00* Test Item Value Reference Range Interpretation Comme nts SARS-CoV-2 INTERPRETATION (t est code = 14372) POSITIVE SOURCE (test code = 99709) NOT SPECIFIED CT CHEST PULMONARY [id number] 02:11:181. ?No acute pulmonary embolism. PROCEDURE: CT ANGIO CHEST WITH CONTRAST - PE PROTOCOL CLINICAL INDICATION: PE suspected, intermediate prob, positive D-dimer ? COMPARISON: ?None. TECHNIQUE: ?Helical CT was performed and reconstructed at 1.25 mm slicethickness from lung bases to apices using 70 mL Isovue 370 intravenouscontrast, without complication. ? 3D axial MIPSand coronal MPRS weregenerated under radiologist supervision, and reviewed to further defineanatomyand possible pathology. ? (DFOV = [address] DLP was 143 mGy/cm FINDINGS: PULMONARY ARTERIES: Enhancement is very good and there is no acute or chronic pulmonaryembolism. CHEST:Lower neck/thyroid: Unremarkable. Lungs: Clear with lower lobe posterior dependent atelectasis. Centralairway: Unremarkable. Pleura: No pleural effusion, thickening or pneumothorax. Thoracic aorta and great vessels: ?Normal in diameter. Heart and pericardium: No detectable coronary arterial calcification.Unremarkablecardiac morphology and pericardium. There is no right heartstrain. Lymph nodes: No enlarged thoracic lymph nodes. Mediastinum: Unremarkable. Thoracic spine and chest wall: Unremarkable, with normal thoracic vertebralbody heights. Other Lines/Tubes/Devices/Hardware: None Visualized upper abdomen: Unremarkable. [facility], Radiant Results Inft User - 09/01/2020 8:12 PM CSTPROCEDURE: CT ANGIO CHEST WITH CONTRAST - PE PROTOCOLCLINICAL INDICATION: PE suspected, intermediateprob, positive D-dimer COMPARISON: None.TECHNIQUE: Helical CT was performed and reconstructed at 1.25 mm slicethickness from lung bases to apices using 70 mL Isovue 370 intravenouscontrast, without complication. 3D axial MIPS and coronal MPRS weregenerated under radiologist supervision, and reviewed to further defineanatomy and possible pathology. (DFOV = [address] DLP was 143 mGy/cmFINDINGS:PULMONARY ARTERIES: Enhancement is very good and there is no acute or chronic pulmonaryembolism.CHEST:Lower neck/thyroid: Unremarkable.Lungs: Clear with lower lobe posterior dependent atelectasis. Centralairway: Unremarkable.Pleura: No pleural effusion, thickening or pneumothorax.Thoracic aorta andgreat vessels: Normal in diameter.Heart and pericardium: No detectable coronary arterial calcification.Unremarkable cardiac morphology and pericardium. There is no right heartstrain.Lymph nodes: No enlarged thoracic lymph nodes.Mediastinum: Unremarkable.Thoracic spine and chest wall: Unremarkable, w ith normal thoracic vertebralbody heights.Other Lines/Tubes/Devices/Hardware: NoneVisualized upper abdomen: Unremarkable. IMPRESSION1. No acute pulmonary embolism. [facility] [id number] 01:20:00* Test Item Value Reference Range Interpretation Comments D-DIMER (test code = 7797168529) See_Comment H [Automated message] The system which generated this result transmitted reference range: <0.41 ?g/mL (FEU). The reference range was not used to interpret this result as normal/abnormal. MATTHEW (test code = MATTHEW) This test may be used in conjunction with a clinical pretest probability (PTP) assessment model to exclude venous thromboembolism (VTE) in patients suspected of deep venous thrombosis (DVT) and pulmonary embolism (PE) A D-Dimer value less than 0.50 ?g/ml (FEU) has a negative predicative value of 96 to 100% (95% CI)and 97 to 100% (95% CI) as an aid in the diagnosis of deep vein thrombosis (DVT) and pulmonary embolism when there is low or moderate pretest probability of PE or DVT. D-Dimer values are expressed in initial fibrinogen equivalent units (FEU)" The assay results should be used with other information, including the clinical context, in forming a diagnosis. Lab Interpretation (test code = 89392-1) Abnormal [facility]XR [facility] 1 [id number] 23:44:22Slightly suboptimal lung volumes with perihilar streaky opacities,nonspecific however can be seen with bilateral infectious process includingCOVID 19. Preliminary Report Dictated by Resident: Jeferson Johnson MD., have reviewed this study and agree withthe above report.XR CHEST 1 VW Comparison: None available History: fever Technique: Frontal radiographs Findings: The lungs slightly underinflated with perihilar streaky interstitialopacities. No pleural effusionor pneumothorax is identified. The cardiomediastinal silhouette is normal in size. No acute osseous abnormality is present. [facility], Radiant Results Inft User - 09/01/2020 5:45 PM CSTXR CHEST 1 VWComparison: None availableHistory: fever Technique: Frontal radiographsFindings:The lungs slightly underinflated with perihilar streaky interstitialopacities. No pleural effusion or pneumothorax is identified. The cardiomediastinal silhouette is normal in size. No acute osseous abnormality is present.IMPRESSIONSlightly suboptimal lung volumes with perihilar streaky opacities,nonspecific however can be seen with bilateral infectious process includingCOVID 19.Preliminary Report Dictated by Resident: Patrica Will, Jeferson Lewis MD., have reviewed this study and agree withthe abovereport.[facility]COVID[facility] (ID NOW RAPID TESTING)2020-09-01 23:26:00* Test Item Value Reference Range Interpretation Comme nts SARS-CoV-2 Rapid ID NOW (test code = 78761-7) Positive Not Detected A MATTHEW (test code = MATTHEW) ID NOW COVID-19 As say is an isothermal nucleic acid amplification test intended for the qualitative detection of nucleic acid from SARS-CoV-2 viral RNA in nasopharyngeal (DIRECTOR PROCESS IMPROVEMENT) specimens. It is used under Emergency Use Authorization (EUA) by FDA. The limit of detection (LOD) of the assay is 125 Genome Equivalents/mL. A positive result is indicative of the presence of SARS-CoV-2 RNA. ?Clinical correlation with patient history and other diagnostic information is necessary to determine patient infection status. A negative (Not Detected) result does not preclude SARS-CoV-2 infection. In patients with clinical symptoms and other tests that are consistent with SARS-CoV-2 infection, negative results should be treated as presumptive negative and a new specimen should be tested with alternative PCR molecular test. Invalid: Please collect a new specimen for repeat patient testing if clinically indicated. Lab Interpretation (test code = 41285-2) Abnormal [facility]ADC,[facility] OR [facility] ONLY - INFLUENZA A & B DIRECT [id number] 23:26:00* Test Item Value Reference Range Interpretation Comme nts Influenza A (test code = 17388-2) Negative Negative Influenza B (test code = 16912-9) Negative Negative Lab Interpretation (test cod e = 47225-8) Normal [facility]UR[facility]2020-11-26 23:22:00* Test Item Value Reference Range Interpretation Comme nts APPEARANCE (test code = 5976073621) Clear Clear COLOR (test code = 3266227233) Yellow Yellow PH (test code = 8723824834) 4.8-8.0 SP GRAVITY (test code = 1666233935) 1.003-1.030 GLU U QUAL (test code = 9152242236) 500 mg/dL Normal A BLOOD (test code = 1607479374) Negative Negative KETONES (test code = 5919210643) Negative Negative PROTEIN (test code = 2887-8) 30 mg/dL Negative A UROBILIN (test code = 4522101061) Normal Normal BILIRUBIN (test code = 4078839080) Negative Negative NITRITE (test code = 4915988234) Negative Negative LEUK CHASITY (test code = 1564546847) 250/uL Negative A RBC/HPF (test code = 8413919075) See_Comment H [Automated [employer]] The system which generated this result transmitted reference range: 0 - 3 HPF. The reference range was not used to interpret this result as normal/abnormal. WBC/HPF (test code = 2552382673) See_Comment [Automated [employer]] The system which generated this result transmitted reference range: 0 - 5 HPF. The reference range was not used to interpret this result as normal/abnormal. BACTERIA (test code = 3675545267) Few Negative A MUCOUS (test code = 3147760405) Slight Negative LPF A SQ EPITH (test code = 0065840846) HPF Lab Interpretation (test code = 54174-8) Abnormal [facility] HospitalN-TERMINAL [id number] 23:20:00* Test Item Value Reference Range Interpretation Comme nts NT-proBNP (test code = 4158078880) 38 pg/mL See_Comment [Automated message] The system which generated this result transmitted reference range: <=125. The reference range was not used to interpret this result as normal/abnormal. MATTHEW (test code = MATTHEW) Biotin has been reported to cause a negative bias, interpret results relative to patient's use of biotin. Lab Interpretation (test code = 01813-2) Normal [facility] HospitalCOMP. METABOLIC PANEL (59246)2020-09-01 23:12:00* Test Item Value Reference Range Interpretation Comme nts NA (test code = 7333064528) 137 mmol/L 135-145 K (test code = 5823907599) 3.9 mmol/L 3.5-5 CL (test code = 9400910514) 100 mmol/L 98-108 CO2 TOTAL (test code = 4698262140) 29 mmol/L 23-31 AGAP (test code = 9675829686) 2-16 BUN (test code = 4769380900) 17 mg/dL 7-23 GLUCOSE (test code = 5610704421) 174 mg/dL 70-110 H CREATININE (test code = 2085190946) 0.56 mg/dL 0.5-1.04 TOTAL BILI (test code = 7923998406) 0.6 mg/dL 0.1-1.1 CALCIUM (test code = 0458266660) 9.2 mg/dL 8.6-10.6 T PROTEIN (test code = 3509391346) 7.9 g/dL 6.3-8.2 ALBUMIN (test code = 3889795601) 4.3 g/dL 3.5-5 ALK PHOS (test code = 0393190458) 101 U/L 34-122 ALTv (test code = 1742-6) 32 U/L 5-35 AST(SGOT) (test code = 8738986292) 28 U/L 13-40 eGFR Calculation (Non-) (test code = 2699420491) mL/min/1.73m2 eGFR Calculation () (test code = 1251480816) mL/min/1.73m2 MATTHEW (test code = MATTHEW) Association of Glomerular Filtration Rate (GFR) and Staging of Kidney Disease* + --+ --+ ------+| GFR (mL/min/1.73 m2) ?| With Kidney Damage ?| ?Without Kidney Damage+ --------+ --------+ +| ?>90 ?| ?Stage one ?| ? Normal ?+ ---+ ---+ -------+| ?60-89 ?| ?Stage two ?| ? Decreased GFR ? + --+ --+ ------+| ?30-59 ?| ?Stage three ?| ? Stage three ? + --+ --+ ------+| ?15-29 ?| ?Stage four ? | ? Stage four ?+ ---+ ---+ -------+| ?<15 (or dialysis) ? ?| ?Stage five ? | ? Stage five ?+ ---+ ---+ -------+ *Each stage assumes the associated GFR level has been in effect for at least three months. ?Stages 1 to 5, with or without kidney disease, indicate chronic kidney disease. Notes: Determination of stages one and two (with eGFR >59mL/min/1.73 m2) requires estimation of kidney damage for at least three months as defined by structural or functional abnormalities of the kidney, manifested by either:Pathological abnormalities or Markers of kidney damage (including abnormalities in the composition of the blood or urine or abnormalities in imaging tests). Lab Interpretation (test code = 08247-3) Abnormal [facility] WITH [id number] 23:01:00* Test Item Value Reference Range Interpretation Comme nts WBC (test code = 6690-2) See_Comment [Automated [employer]] The system which generated this result transmitted reference range: 4.30 - 11.10 10*3/?L. The reference range was not used to interpret this result as normal/abnormal. RBC (test code = 789-8) See_Comment [Automated [employer]] The system which generated this result transmitted reference range: 3.93 - 5.25 10*6/?L. The reference range was not used to interpret this result as normal/abnormal. HGB (test code = 718-7) 12.6 g/dL 11.6-15 HCT (test code = 4544-3) 38.3 % 35.7-45.2 MCV (test code = 787-2) 88.9 fL 80.6-95.5 MCH (test code = 785-6) 29.2 pg 25.9-32.8 MCHC (test code = 786-4) 32.9 g/dL 31.6-35.1 RDW-SD (test code = 22436-9) 41.6 fL 39-49.9 RDW-CV (test code = 788-0) 12.6 % 12-15.5 PLT (test code = 777-3) See_Comment [Automated [employer]] The system which generated this result transmitted reference range: 166 - 358 10*3/?L. The reference range was not used to interpret this result as normal/abnormal. MPV (test code = 54288-6) 10.0 fL 9.5-12.9 NRBC/100 WBC (test code = 9941818774) See_Comment [Automated [employer] ssage] The system which generated this result transmitted reference range: 0.0 - 10.0 /100 WBCs. The reference range was not used to interpret this result as normal/abnormal. NRBC x10^3 (test code = 1183755416) <0.01 See_Comment [Automated messa ge] The system which generated this result transmitted reference range: 10*3/?L. The reference range was not used to interpret this result as normal/abnormal. GRAN MAT (NEUT) % (test code = 770-8) 77.1 % IMM GRAN % (test code = 6870410208) 0.40 % LYMPH % (test code = 736-9) 10.9 % MONO % (test code = 5905-5) 10.4 % EOS % (test code = 713-8) 0.7 % BASO % (test code = 706-2) 0.5 % GRAN MAT x10^3(ANC) (test code = 9716872888) 6.59 10*3/uL 1.88-7.09 IMM GRAN x10^3 (test code = 4993550302) 0.03 10*3/uL 0-0.06 LYMPH x10^3 (test code = 731-0) 0.93 10*3/uL 1.32-3.29 L MONO x10^3 (test code = 742-7) 0.89 10*3/uL 0.33-0.92 EOS x10^3 (test code = 711-2) 0.06 10*3/uL 0.03-0.39 BASO x10^3 (test code = 704-7) 0.04 10*3/uL 0.01-0.07 Lab Interpretation (test code = 30245-3) Abnormal [facility] HospitalLactic Acid Whole [id number] 22:55:00* Test Item Value Reference Range Interpretation Comme nts LACTIC ACID (test code = 6057777937) 1.33 mmol/L [facility] HospitalPOCT [id number] 22:52:00* Test Item Value Reference Range Interpretation Comme nts POCT PREG (test code = 1605) negative On board controls acceptable with C Line (test code = 3574) present POCT PREG LOT # (test code = 3575) [id number] POCT PREG TEST DATE ( test code = 3576) 02/03/2022 Lab Interpretation (test cod e = 48304-4) Normal [facility] HospitalHEMOGLOBIN [id number] 00:00:00* Test Item Value Reference Range Interpretation Comme nts HEMOGLOBIN A1c (test code = 13436) 7.0 % HEMOGLOBIN [id number] 00:00:00* Test Item Value Reference Range Interpretation Comme nts HEMOGLOBIN A1c (test code = 13070) 7.0 % C-REACTIVE [id number] 00:00:00* Test Item Value Reference Range Interpretation Comme nts C-REACTIVE PROTEIN (test cod e = 3513) 0.7 MG/DL C-REACTIVE [id number] 00:00:00* Test Item Value Reference Range Interpretation Comme nts C-REACTIVE PROTEIN (test cod e = 3513) 0.7 MG/DL SEDIMENTATION [id number] 00:00:00* Test Item Value Reference Range Interpretation Comme nts SEDIMENTATION RATE (test cod e = 1017) 22 MM/HOUR SEDIMENTATION [id number] 00:00:00* Test Item Value Reference Range Interpretation Comme nts SEDIMENTATION RATE (test cod e = 1017) 22 MM/HOUR URIC [id number] 00:00:00* Test Item Value Reference Range Interpretation Comme nts URIC ACID (test code = 2233) 3.6 MG/DL URIC [id number] 00:00:00* Test Item Value Reference Range Interpretation Comme nts URIC ACID (test code = 2233) 3.6 MG/DL SUKHI REFLEX AUTOIMMUNE AB [id number] 00:00:00* Test Item Value Reference Range Interpretation Comme nts ANTI-NUCLEAR ANTIBODIES (michael t code = 3506) NEGATIVE SUKHI REFLEX AUTOIMMUNE AB [id number] 00:00:00* Test Item Value Reference Range Interpretation Comme nts ANTI-NUCLEAR ANTIBODIES (michael t code = 3506) NEGATIVE COMPREHENSIVE METABOLIC [id number] 00:00:00* Test Item Value Reference Range Interpretation Comme nts GLUCOSE (test code = 2217) 101 MG/DL BUN (test code = 2208) 10 MG/DL CREATININE (test code = 2214) 0.62 MG/DL eGFR AMER. (test cod e = 89070) 123 ML/MIN/1.73 eGFR NON- AMER. (test code = 18608) 106 ML/MIN/1.73 CALC BUN/CREAT (test code = 2235) 16 RATIO SODIUM (test code = 2231) 139 MEQ/L POTASSIUM (test code = 2228) 3.9 MEQ/L CHLORIDE (test code = 2215) 100 MEQ/L CARBON DIOXIDE (test code = 2206) 27 MEQ/L CALCIUM (test code = 2209) 9.8 MG/DL PROTEIN, TOTAL (test code = 2229) 7.3 G/DL ALBUMIN (test code = 2201) 4.3 G/DL CALC GLOBULIN (test code = 2240) 3.0 G/DL CALC A/G RATIO (test code = 2234) 1.4 RATIO BILIRUBIN, TOTAL (test code = 2207) 0.8 MG/DL ALKALINE PHOSPHATASE (test code = 2204) 202 U/L AST (test code = 2218) 182 U/L ALT (test code = 2219) 196 U/L COMPREHENSIVE METABOLIC [id number] 00:00:00* Test Item Value Reference Range Interpretation Comme nts GLUCOSE (test code = 2217) 101 MG/DL BUN (test code = 2208) 10 MG/DL CREATININE (test code = 2214) 0.62 MG/DL eGFR AMER. (test cod e = 11222) 123 ML/MIN/1.73 eGFR NON- AMER. (test code = 55086) 106 ML/MIN/1.73 CALC BUN/CREAT (test code = 2235) 16 RATIO SODIUM (test code = 2231) 139 MEQ/L POTASSIUM (test code = 2228) 3.9 MEQ/L CHLORIDE (test code = 2215) 100 MEQ/L CARBON DIOXIDE (test code = 2206) 27 MEQ/L CALCIUM (test code = 2209) 9.8 MG/DL PROTEIN, TOTAL (test code = 2229) 7.3 G/DL ALBUMIN (test code = 2201) 4.3 G/DL CALC GLOBULIN (test code = 2240) 3.0 G/DL CALC A/G RATIO (test code = 2234) 1.4 RATIO BILIRUBIN, TOTAL (test code = 2207) 0.8 MG/DL ALKALINE PHOSPHATASE (test code = 2204) 202 U/L AST (test code = 2218) 182 U/L ALT (test code = 2219) 196 U/L HEMOGLOBIN [id number] 00:00:00* Test Item Value Reference Range Interpretation Comme nts HEMOGLOBIN A1c (test code = 33213) 7.0 % HEMOGLOBIN [id number] 00:00:00* Test Item Value Reference Range Interpretation Comme nts HEMOGLOBIN A1c (test code = 14619) 7.0 % HEMOGLOBIN [id number] 00:00:00* Test Item Value Reference Range Interpretation Comme nts HEMOGLOBIN A1c (test code = 41189) 7.0 % C-REACTIVE [id number] 00:00:00* Test Item Value Reference Range Interpretation Comme nts C-REACTIVE PROTEIN (test cod e = 3513) 0.7 MG/DL C-REACTIVE [id number] 00:00:00* Test Item Value Reference Range Interpretation Comme nts C-REACTIVE PROTEIN (test cod e = 3513) 0.7 MG/DL SEDIMENTATION [id number] 00:00:00* Test Item Value Reference Range Interpretation Comme nts SEDIMENTATION RATE (test cod e = 1017) 22 MM/HOUR SEDIMENTATION [id number] 00:00:00* Test Item Value Reference Range Interpretation Comme nts SEDIMENTATION RATE (test cod e = 1017) 22 MM/HOUR URIC [id number] 00:00:00* Test Item Value Reference Range Interpretation Comme nts URIC ACID (test code = 2233) 3.6 MG/DL URIC [id number] 00:00:00* Test Item Value Reference Range Interpretation Comme nts URIC ACID (test code = 2233) 3.6 MG/DL SUKHI REFLEX AUTOIMMUNE AB [id number] 00:00:00* Test Item Value Reference Range Interpretation Comme nts ANTI-NUCLEAR ANTIBODIES (michael t code = 3506) NEGATIVE SUKHI REFLEX AUTOIMMUNE AB [id number] 00:00:00* Test Item Value Reference Range Interpretation Comme nts ANTI-NUCLEAR ANTIBODIES (michael t code = 3506) NEGATIVE COMPREHENSIVE METABOLIC [id number] 00:00:00* Test Item Value Reference Range Interpretation Comme nts GLUCOSE (test code = 2217) 101 MG/DL BUN (test code = 2208) 10 MG/DL CREATININE (test code = 2214) 0.62 MG/DL eGFR AMER. (test cod e = 10932) 123 ML/MIN/1.73 eGFR NON- AMER. (test code = 57313) 106 ML/MIN/1.73 CALC BUN/CREAT (test code = 2235) 16 RATIO SODIUM (test code = 2231) 139 MEQ/L POTASSIUM (test code = 2228) 3.9 MEQ/L CHLORIDE (test code = 2215) 100 MEQ/L CARBON DIOXIDE (test code = 2206) 27 MEQ/L CALCIUM (test code = 2209) 9.8 MG/DL PROTEIN, TOTAL (test code = 2229) 7.3 G/DL ALBUMIN (test code = 2201) 4.3 G/DL CALC GLOBULIN (test code = 2240) 3.0 G/DL CALC A/G RATIO (test code = 2234) 1.4 RATIO BILIRUBIN, TOTAL (test code = 2207) 0.8 MG/DL ALKALINE PHOSPHATASE (test code = 2204) 202 U/L AST (test code = 2218) 182 U/L ALT (test code = 2219) 196 U/L COMPREHENSIVE METABOLIC [id number] 00:00:00* Test Item Value Reference Range Interpretation Comme nts GLUCOSE (test code = 2217) 101 MG/DL BUN (test code = 2208) 10 MG/DL CREATININE (test code = 2214) 0.62 MG/DL eGFR AMER. (test cod e = 71046) 123 ML/MIN/1.73 eGFR NON- AMER. (test code = 57913) 106 ML/MIN/1.73 CALC BUN/CREAT (test code = 2235) 16 RATIO SODIUM (test code = 2231) 139 MEQ/L POTASSIUM (test code = 2228) 3.9 MEQ/L CHLORIDE (test code = 2215) 100 MEQ/L CARBON DIOXIDE (test code = 2206) 27 MEQ/L CALCIUM (test code = 2209) 9.8 MG/DL PROTEIN, TOTAL (test code = 2229) 7.3 G/DL ALBUMIN (test code = 2201) 4.3 G/DL CALC GLOBULIN (test code = 2240) 3.0 G/DL CALC A/G RATIO (test code = 2234) 1.4 RATIO BILIRUBIN, TOTAL (test code = 2207) 0.8 MG/DL ALKALINE PHOSPHATASE (test code = 2204) 202 U/L AST (test code = 2218) 182 U/L ALT (test code = 2219) 196 U/L HEMOGLOBIN [id number] 00:00:00* Test Item Value Reference Range Interpretation Comme nts HEMOGLOBIN A1c (test code = 28936) 7.0 % HEMOGLOBIN [id number] 00:00:00* Test Item Value Reference Range Interpretation Comme nts HEMOGLOBIN A1c (test code = 60235) 7.0 % C-REACTIVE [id number] 00:00:00* Test Item Value Reference Range Interpretation Comme nts C-REACTIVE PROTEIN (test cod e = 3513) 0.7 MG/DL SEDIMENTATION [id number] 00:00:00* Test Item Value Reference Range Interpretation Comme nts SEDIMENTATION RATE (test cod e = 1017) 22 MM/HOUR URIC [id number] 00:00:00* Test Item Value Reference Range Interpretation Comme nts URIC ACID (test code = 2233) 3.6 MG/DL SUKHI REFLEX AUTOIMMUNE AB [id number] 00:00:00* Test Item Value Reference Range Interpretation Comme nts ANTI-NUCLEAR ANTIBODIES (michael t code = 3506) NEGATIVE COMPREHENSIVE METABOLIC [id number] 00:00:00* Test Item Value Reference Range Interpretation Comme nts GLUCOSE (test code = 2217) 101 MG/DL BUN (test code = 2208) 10 MG/DL CREATININE (test code = 2214) 0.62 MG/DL eGFR AMER. (test cod e = 89727) 123 ML/MIN/1.73 eGFR NON- AMER. (test code = 15083) 106 ML/MIN/1.73 CALC BUN/CREAT (test code = 2235) 16 RATIO SODIUM (test code = 2231) 139 MEQ/L POTASSIUM (test code = 2228) 3.9 MEQ/L CHLORIDE (test code = 2215) 100 MEQ/L CARBON DIOXIDE (test code = 2206) 27 MEQ/L CALCIUM (test code = 2209) 9.8 MG/DL PROTEIN, TOTAL (test code = 2229) 7.3 G/DL ALBUMIN (test code = 2201) 4.3 G/DL CALC GLOBULIN (test code = 2240) 3.0 G/DL CALC A/G RATIO (test code = 2234) 1.4 RATIO BILIRUBIN, TOTAL (test code = 2207) 0.8 MG/DL ALKALINE PHOSPHATASE (test code = 2204) 202 U/L AST (test code = 2218) 182 U/L ALT (test code = 2219) 196 U/L HEMOGLOBIN [id number] 00:00:00* Test Item Value Reference Range Interpretation Comme nts HEMOGLOBIN A1c (test code = 99964) 7.0 % HEMOGLOBIN [id number] 00:00:00* Test Item Value Reference Range Interpretation Comme nts HEMOGLOBIN A1c (test code = 29485) 7.0 % HEMOGLOBIN [id number] 00:00:00* Test Item Value Reference Range Interpretation Comme nts HEMOGLOBIN A1c (test code = 02859) 7.0 % C-REACTIVE [id number] 00:00:00* Test Item Value Reference Range Interpretation Comme nts C-REACTIVE PROTEIN (test cod e = 3513) 0.7 MG/DL C-REACTIVE [id number] 00:00:00* Test Item Value Reference Range Interpretation Comme nts C-REACTIVE PROTEIN (test cod e = 3513) 0.7 MG/DL SEDIMENTATION [id number] 00:00:00* Test Item Value Reference Range Interpretation Comme nts SEDIMENTATION RATE (test cod e = 1017) 22 MM/HOUR SEDIMENTATION [id number] 00:00:00* Test Item Value Reference Range Interpretation Comme nts SEDIMENTATION RATE (test cod e = 1017) 22 MM/HOUR URIC [id number] 00:00:00* Test Item Value Reference Range Interpretation Comme nts URIC ACID (test code = 2233) 3.6 MG/DL URIC [id number] 00:00:00* Test Item Value Reference Range Interpretation Comme nts URIC ACID (test code = 2233) 3.6 MG/DL SUKHI REFLEX AUTOIMMUNE AB [id number] 00:00:00* Test Item Value Reference Range Interpretation Comme nts ANTI-NUCLEAR ANTIBODIES (michael t code = 3506) NEGATIVE SUKHI REFLEX AUTOIMMUNE AB [id number] 00:00:00* Test Item Value Reference Range Interpretation Comme nts ANTI-NUCLEAR ANTIBODIES (michael t code = 3506) NEGATIVE COMPREHENSIVE METABOLIC [id number] 00:00:00* Test Item Value Reference Range Interpretation Comme nts GLUCOSE (test code = 2217) 101 MG/DL BUN (test code = 2208) 10 MG/DL CREATININE (test code = 2214) 0.62 MG/DL eGFR AMER. (test cod e = 07228) 123 ML/MIN/1.73 eGFR NON- AMER. (test code = 76565) 106 ML/MIN/1.73 CALC BUN/CREAT (test code = 2235) 16 RATIO SODIUM (test code = 2231) 139 MEQ/L POTASSIUM (test code = 2228) 3.9 MEQ/L CHLORIDE (test code = 2215) 100 MEQ/L CARBON DIOXIDE (test code = 2206) 27 MEQ/L CALCIUM (test code = 2209) 9.8 MG/DL PROTEIN, TOTAL (test code = 2229) 7.3 G/DL ALBUMIN (test code = 2201) 4.3 G/DL CALC GLOBULIN (test code = 2240) 3.0 G/DL CALC A/G RATIO (test code = 2234) 1.4 RATIO BILIRUBIN, TOTAL (test code = 2207) 0.8 MG/DL ALKALINE PHOSPHATASE (test code = 2204) 202 U/L AST (test code = 2218) 182 U/L ALT (test code = 2219) 196 U/L COMPREHENSIVE METABOLIC [id number] 00:00:00* Test Item Value Reference Range Interpretation Comme nts GLUCOSE (test code = 2217) 101 MG/DL BUN (test code = 2208) 10 MG/DL CREATININE (test code = 2214) 0.62 MG/DL eGFR AMER. (test cod e = 06671) 123 ML/MIN/1.73 eGFR NON- AMER. (test code = 69414) 106 ML/MIN/1.73 CALC BUN/CREAT (test code = 2235) 16 RATIO SODIUM (test code = 2231) 139 MEQ/L POTASSIUM (test code = 2228) 3.9 MEQ/L CHLORIDE (test code = 2215) 100 MEQ/L CARBON DIOXIDE (test code = 2206) 27 MEQ/L CALCIUM (test code = 2209) 9.8 MG/DL PROTEIN, TOTAL (test code = 2229) 7.3 G/DL ALBUMIN (test code = 2201) 4.3 G/DL CALC GLOBULIN (test code = 2240) 3.0 G/DL CALC A/G RATIO (test code = 2234) 1.4 RATIO BILIRUBIN, TOTAL (test code = 2207) 0.8 MG/DL ALKALINE PHOSPHATASE (test code = 2204) 202 U/L AST (test code = 2218) 182 U/L ALT (test code = 2219) 196 U/L HEMOGLOBIN [id number] 00:00:00* Test Item Value Reference Range Interpretation Comme nts HEMOGLOBIN A1c (test code = 04602) 7.0 % CT ABDOMEN PELVIS W [id number] 04:56:15No acute intra-abdominal or intrapelvic process. Preliminary Report Dictated by Resident: Gurjit Perkins ?MD Rosalio., have reviewed this study and agree with the abovereport.EXAM: CT ABDOMEN/PELVIS WITH CONTRAST HISTORY: ?Abd pain, acute, generalized Epigastric pain, persistent N/V,Leukocytosis ? COMPARISON: None. TECHNIQUE AND FINDINGS: Contiguous axial imaging from the level of the lungbases through the proximal thighs was performed after the administration of120 ?cc of intravenousOmnipaque contrast. Coronal and sagittalreconstructions were obtained. ?Auto mA and/or iterative reconstructionwere used to reduce radiation dose. FINDINGS: LOWER THORAX: Bilateral dependent atelectasis. LIVER: No focal hepatic lesions. ?Normal contour. GALLBLADDER AND BILIARY TREE: No biliary ducta l dilation. ?No gallbladderwall thickening. SPLEEN: No splenomegaly.. An accessory splenule. PANCREAS: No ductal dilation or masses. ADRENAL GLANDS: No adrenal nodules. KIDNEYS: No hydronephrosis, stones, or masses. PERITONEUM AND RETROPERITONEUM: No free air or fluid. LYMPH NODES: No lymphadenopathy. GI TRACT: No dilation or wall thickening. Normal appendix. PELVIS/BLADDER: The urinary bladder is decompressed, unremarkable. Theuterus is unremarkable. IUD in place. Bilateral ovaries are unremarkable. VESSELS: Unremarkable. BONES AND SOFT TISSUES: No suspicious lytic or sclerotic bony lesions.Asubcentimeter bone island in the left ischial. [facility], Radiant Results Inft User - 07/25/2020 11:57 P M CDTEXAM: CT ABDOMEN/PELVIS WITH CONTRASTHISTORY: Abd pain, acute, generalized Epigastric pain, persistent N/V,Leukocytosis COMPARISON: None.TECHNIQUE AND FINDINGS: Contiguous axial imaging from thelevel of the lungbases through the proximal thighs was performed after the administration of120 cc of intravenous Omnipaque contrast. Coronal and sagittalreconstructions were obtained. Auto mA and/oriterative reconstructionwere used to reduce radiation dose.FINDINGS:LOWER THORAX: Bilateral dependent atelectasis.LIVER: No focal hepatic lesions. Normal contour.GALLBLADDER AND BILIARY TREE: No biliary ductal dilation. No gallbladderwall thickening.SPLEEN: No splenomegaly.. An accessory splenule.PA NCREAS: No ductal dilation or masses.ADRENAL GLANDS: No adrenal nodules.KIDNEYS: No hydronephrosis,stones, or masses.PERITONEUM AND RETROPERITONEUM: No free air or fluid.LYMPH NODES: No lymphadenopathy.GI TRACT: No dilation or wall thickening. Normal appendix.PELVIS/BLADDER: The urinary bladder isdecompressed, unremarkable. Theuterus is unremarkable. IUD in place. Bilateral ovaries are unremarkable.VESSELS: Unremarkable.BONES AND SOFT TISSUES: No suspicious lytic or sclerotic bony lesions. Asubcentimeter bone island in the left ischial.IMPRESSIONNo acute intra-abdominal or intrapelvic process.Preliminary Report Dictated by Resident: Gurjit Owens MD., have reviewed this study and agree with the abovereport.[facility] [id number] 03:06:00* Test Item Value Reference Range Interpretation Comme nts APPEARANCE (test code = 8137412500) Hazy Clear A COLOR (test code = 0892466827) Loren Yellow A PH (test code = 4537367986) 4.8-8.0 SP GRAVITY (test code = 7503354003) 1.003-1.030 GLU U QUAL (test code = 3465540483) Normal Normal BLOOD (test code = 7520838900) Negative Negative KETONES (test code = 4492695092) Negative Negative PROTEIN (test code = 2887-8) 100 mg/dL Negative A UROBILIN (test code = 0642852048) 2.0 mg/dL Normal A BILIRUBIN (test code = 4893033894) Negative Negative NITRITE (test code = 1225792897) Negative Negative LEUK CHASITY (test code = 4355232783) Negative Negative RBC/HPF (test code = 5921231696) See_Comment [[employer]ated [employer]] The system which generated this result transmitted reference range: 0 - 3 HPF. The reference range was not used to interpret this result as normal/abnormal. WBC/HPF (test code = 5662448081) See_Comment [Autom[employer] ge] The system which generated this result transmitted reference range: 0 - 5 HPF. The reference range was not used to interpret this result as normal/abnormal. BACTERIA (test code = 3460743636) Few Negative A MUCOUS (test code = 9232562978) Moderate Negative LPF A SQ EPITH (test code = 8129812350) HPF Lab Interpretation (test code = 73808-8) Abnormal [facility]. METABOLIC PANEL (60854)2020-07-26 02:41:00* Test Item Value Reference Range Interpretation Comme nts NA (test code = 2382173993) 139 mmol/L 135-145 K (test code = 6778910814) 3.4 mmol/L 3.5-5 L CL (test code = 3789987719) 99 mmol/L 98-108 CO2 TOTAL (test code = 3948617093) 31 mmol/L 23-31 AGAP (test code = 3159473083) 2-16 BUN (test code = 9879243267) 18 mg/dL 7-23 GLUCOSE (test code = 1065024053) 151 mg/dL 70-110 H CREATININE (test code = 8232831997) 0.59 mg/dL 0.5-1.04 TOTAL BILI (test code = 5014309943) 0.8 mg/dL 0.1-1.1 CALCIUM (test code = 7082931557) 9.5 mg/dL 8.6-10.6 T PROTEIN (test code = 2656711854) 7.8 g/dL 6.3-8.2 ALBUMIN (test code = 5222477716) 4.2 g/dL 3.5-5 ALK PHOS (test code = 3245807821) 91 U/L 34-122 ALTv (test code = 1742-6) 24 U/L 5-35 AST(SGOT) (test code = 4844665635) 25 U/L 13-40 eGFR Calculation (Non-) (test code = 0816596081) mL/min/1.73m2 eGFR Calculation () (test code = 4567284230) mL/min/1.73m2 MATTHEW (test code = MATTHEW) Association of Glomerular Filtration Rate (GFR) and Staging of Kidney Disease* + --+ --+ ------+| GFR (mL/min/1.73 m2) ?| With Kidney Damage ?| ?Without Kidney Damage+ --------+ --------+ +| ?>90 ?| ?Stage one ?| ? Normal ?+ ---+ ---+ -------+| ?60-89 ?| ?Stage two ?| ? Decreased GFR ? + --+ --+ ------+| ?30-59 ?| ?Stage three ?| ? Stage three ? + --+ --+ ------+| ?15-29 ?| ?Stage four ? | ? Stage four ?+ ---+ ---+ -------+| ?<15 (or dialysis) ? ?| ?Stage five ? | ? Stage five ?+ ---+ ---+ -------+ *Each stage assumes the associated GFR level has been in effect for at least three months. ?Stages 1 to 5, with or without kidney disease, indicate chronic kidney disease. Notes: Determination of stages one and two (with eGFR >59mL/min/1.73 m2) requires estimation of kidney damage for at least three months as defined by structural or functional abnormalities of the kidney, manifested by either:Pathological abnormalities or Markers of kidney damage (including abnormalities in the composition of the blood or urine or abnormalities in imaging tests). Lab Interpretation (test code = 65098-4) [facility]40:[facility]* Test Item Value Reference Range Interpretation Comme nts LIPASE (test code = 4802916949) 149 U/L 0-220 Lab Interpretation (test cod e = 00749-8) Normal [id number] 02:25:00* Test Item Value Reference Range Interpretation Comme nts WBC (test code = 6690-2) See_Comment H [Automated message] The system which generated this result transmitted reference range: 4.30 - 11.10 10*3/?L. The reference range was not used to interpret this result as normal/abnormal. RBC (test code = 789-8) See_Comment [Automated message] The system which generated this result transmitted reference range: 3.93 - 5.25 10*6/?L. The reference range was not used to interpret this result as normal/abnormal. HGB (test code = 718-7) 13.8 g/dL 11.6-15 HCT (test code = 4544-3) 41.4 % 35.7-45.2 MCV (test code = 787-2) 88.1 fL 80.6-95.5 MCH (test code = 785-6) 29.4 pg 25.9-32.8 MCHC (test code = 786-4) 33.3 g/dL 31.6-35.1 RDW-SD (test code = 52112-1) 40.0 fL 39-49.9 RDW-CV (test code = 788-0) 12.4 % 12-15.5 PLT (test code = 777-3) See_Comment H [Automated message] The system which generated this result transmitted reference range: 166 - 358 10*3/?L. The reference range was not used to interpret this result as normal/abnormal. MPV (test code = 94786-3) 9.7 fL 9.5-12.9 NRBC/100 WBC (test code = 4097405165) See_Comment [Automated message] The system which generated this result transmitted reference range: 0.0 - 10.0 /100 WBCs. The reference range was not used to interpret this result as normal/abnormal. NRBC x10^3 (test code = 3663968865) <0.01 See_Comment [Automated message] The system which generated this result transmitted reference range: 10*3/?L. The reference range was not used to interpret this result as normal/abnormal. GRAN MAT (NEUT) % (test code = 770-8) 80.1 % IMM GRAN % (test code = 3466622540) 0.60 % LYMPH % (test code = 736-9) 10.7 % MONO % (test code = 5905-5) 6.3 % EOS % (test code = 713-8) 1.9 % BASO % (test code = 706-2) 0.4 % GRAN MAT x10^3(ANC) (test code = 0841932338) 14.29 10*3/uL 1.88-7.09 H IMM GRAN x10^3 (test code = 6733356299) 0.10 10*3/uL 0-0.06 H LYMPH x10^3 (test code = 731-0) 1.90 10*3/uL 1.32-3.29 MONO x10^3 (test code = 742-7) 1.12 10*3/uL 0.33-0.92 H EOS x10^3 (test code = 711-2) 0.34 10*3/uL 0.03-0.39 BASO x10^3 (test code = 704-7) 0.07 10*3/uL 0.01-0.07 Lab Interpretation (test code = 00611-0) [facility]normal [facility] [id number] 00:00:00* Test Item Value Reference Range Interpretation Comme nts HEMOGLOBIN A1c (test code = 22038) 10.1 % HEMOGLOBIN [id number] 00:00:00* Test Item Value Reference Range Interpretation Comme nts HEMOGLOBIN A1c (test code = 92689) 10.1 % HEMOGLOBIN [id number] 00:00:00* Test Item Value Reference Range Interpretation Comme nts HEMOGLOBIN A1c (test code = 73975) 10.1 % HEMOGLOBIN [id number] 00:00:00* Test Item Value Reference Range Interpretation Comme nts HEMOGLOBIN A1c (test code = 21600) 10.1 % HEMOGLOBIN [id number] 00:00:00* Test Item Value Reference Range Interpretation Comme nts HEMOGLOBIN A1c (test code = 95253) 10.1 % HEMOGLOBIN [id number] 00:00:00* Test Item Value Reference Range Interpretation Comme nts HEMOGLOBIN A1c (test code = 95456) 10.1 % HEMOGLOBIN [id number] 00:00:00* Test Item Value Reference Range Interpretation Comme nts HEMOGLOBIN A1c (test code = 40524) 10.1 % HEMOGLOBIN [id number] 00:00:00* Test Item Value Reference Range Interpretation Comme nts HEMOGLOBIN A1c (test code = 49362) 10.1 % HEMOGLOBIN [id number] 00:00:00* Test Item Value Reference Range Interpretation Comme nts HEMOGLOBIN A1c (test code = 55568) 10.1 % HEMOGLOBIN [id number] 00:00:00* Test Item Value Reference Range Interpretation Comme nts HEMOGLOBIN A1c (test code = 77941) 10.1 % HEMOGLOBIN [id number] 00:00:00* Test Item Value Reference Range Interpretation Comme nts HEMOGLOBIN A1c (test code = 65881) 10.1 % HEMOGLOBIN [id number] 00:00:00* Test Item Value Reference Range Interpretation Comme nts HEMOGLOBIN A1c (test code = 52529) 12.0 % HEMOGLOBIN [id number] 00:00:00* Test Item Value Reference Range Interpretation Comme nts HEMOGLOBIN A1c (test code = 16461) 12.0 % HEMOGLOBIN [id number] 00:00:00* Test Item Value Reference Range Interpretation Comme nts HEMOGLOBIN A1c (test code = 28005) 12.0 % LIPID [id number] 00:00:00* Test Item Value Reference Range Interpretation Comme nts CHOLESTEROL (test code = 2210) 202 MG/DL TRIGLYCERIDES (test code = 2232) 147 MG/DL HDL CHOLESTEROL (test code = 2220) 57 MG/DL CALC LDL CHOL (test code = 2237) 119 MG/DL RISK RATIO LDL/HDL (test cod e = 2238) 2.09 RATIO LIPID [id number] 00:00:00* Test Item Value Reference Range Interpretation Comme nts CHOLESTEROL (test code = 2210) 202 MG/DL TRIGLYCERIDES (test code = 2232) 147 MG/DL HDL CHOLESTEROL (test code = 2220) 57 MG/DL CALC LDL CHOL (test code = 2237) 119 MG/DL RISK RATIO LDL/HDL (test cod e = 2238) 2.09 RATIO COMPREHENSIVE METABOLIC [id number] 00:00:00* Test Item Value Reference Range Interpretation Comme nts GLUCOSE (test code = 2217) 310 MG/DL BUN (test code = 2208) 15 MG/DL CREATININE (test code = 2214) 0.55 MG/DL eGFR AMER. (test cod e = 02769) 129 ML/MIN/1.73 eGFR NON- AMER. (test code = 28861) 111 ML/MIN/1.73 CALC BUN/CREAT (test code = 2235) 27 RATIO SODIUM (test code = 2231) 138 MEQ/L POTASSIUM (test code = 2228) 4.5 MEQ/L CHLORIDE (test code = 2215) 100 MEQ/L CARBON DIOXIDE (test code = 2206) 26 MEQ/L CALCIUM (test code = 2209) 9.7 MG/DL PROTEIN, TOTAL (test code = 2229) 7.2 G/DL ALBUMIN (test code = 2201) 4.0 G/DL CALC GLOBULIN (test code = 2240) 3.2 G/DL CALC A/G RATIO (test code = 2234) 1.3 RATIO BILIRUBIN, TOTAL (test code = 2207) 0.4 MG/DL ALKALINE PHOSPHATASE (test code = 2204) 96 U/L AST (test code = 2218) 16 U/L ALT (test code = 2219) 20 U/L COMPREHENSIVE METABOLIC [id number] 00:00:00* Test Item Value Reference Range Interpretation Comme nts GLUCOSE (test code = 2217) 310 MG/DL BUN (test code = 2208) 15 MG/DL CREATININE (test code = 2214) 0.55 MG/DL eGFR AMER. (test cod e = 78579) 129 ML/MIN/1.73 eGFR NON- AMER. (test code = 21072) 111 ML/MIN/1.73 CALC BUN/CREAT (test code = 2235) 27 RATIO SODIUM (test code = 2231) 138 MEQ/L POTASSIUM (test code = 2228) 4.5 MEQ/L CHLORIDE (test code = 2215) 100 MEQ/L CARBON DIOXIDE (test code = 2206) 26 MEQ/L CALCIUM (test code = 2209) 9.7 MG/DL PROTEIN, TOTAL (test code = 2229) 7.2 G/DL ALBUMIN (test code = 2201) 4.0 G/DL CALC GLOBULIN (test code = 2240) 3.2 G/DL CALC A/G RATIO (test code = 2234) 1.3 RATIO BILIRUBIN, TOTAL (test code = 2207) 0.4 MG/DL ALKALINE PHOSPHATASE (test code = 2204) 96 U/L AST (test code = 2218) 16 U/L ALT (test code = 2219) 20 U/L VITAMIN B 12 AND FOLIC [id number] 00:00:00* Test Item Value Reference Range Interpretation Comme nts VITAMIN B-12 (test code = 2840) 708 PG/ML FOLIC ACID (test code = 2695) 11.9 UG/L VITAMIN B 12 AND FOLIC [id number] 00:00:00* Test Item Value Reference Range Interpretation Comme nts VITAMIN B-12 (test code = 2840) 708 PG/ML FOLIC ACID (test code = 2695) 11.9 UG/L CBC W/AUTO [id number] 00:00:00* Test Item Value Reference Range Interpretation Comme nts WBC (test code = 1001) 8.5 K/UL RBC (test code = 1002) 4.81 M/UL HEMOGLOBIN (test code = 1003) 14.0 G/DL HEMATOCRIT (test code = 1004) 41.6 % MCV (test code = 1005) 86.5 fL MCH (test code = 1006) 29.1 PG MCHC (test code = 1007) 33.7 G/DL RDW (test code = 1038) 11.9 % NEUTROPHILS (test code = 1008) 69.8 % LYMPHOCYTES (test code = 1010) 22.1 % MONOCYTES (test code = 1011) 6.3 % EOSINOPHILS (test code = 1012) 1.3 % BASOPHILS (test code = 1013) 0.5 % PLATELET COUNT (test code = 1015) 364 K/UL CBC W/AUTO [id number] 00:00:00* Test Item Value Reference Range Interpretation Comme nts WBC (test code = 1001) 8.5 K/UL RBC (test code = 1002) 4.81 M/UL HEMOGLOBIN (test code = 1003) 14.0 G/DL HEMATOCRIT (test code = 1004) 41.6 % MCV (test code = 1005) 86.5 fL MCH (test code = 1006) 29.1 PG MCHC (test code = 1007) 33.7 G/DL RDW (test code = 1038) 11.9 % NEUTROPHILS (test code = 1008) 69.8 % LYMPHOCYTES (test code = 1010) 22.1 % MONOCYTES (test code = 1011) 6.3 % EOSINOPHILS (test code = 1012) 1.3 % BASOPHILS (test code = 1013) 0.5 % PLATELET COUNT (test code = 1015) 364 K/UL CBC W/AUTO [id number] 00:00:00* Test Item Value Reference Range Interpretation Comme nts WBC (test code = 1001) 8.5 K/UL RBC (test code = 1002) 4.81 M/UL HEMOGLOBIN (test code = 1003) 14.0 G/DL HEMATOCRIT (test code = 1004) 41.6 % MCV (test code = 1005) 86.5 fL MCH (test code = 1006) 29.1 PG MCHC (test code = 1007) 33.7 G/DL RDW (test code = 1038) 11.9 % NEUTROPHILS (test code = 1008) 69.8 % LYMPHOCYTES (test code = 1010) 22.1 % MONOCYTES (test code = 1011) 6.3 % EOSINOPHILS (test code = 1012) 1.3 % BASOPHILS (test code = 1013) 0.5 % PLATELET COUNT (test code = 1015) 364 K/UL HEMOGLOBIN [id number] 00:00:00* Test Item Value Reference Range Interpretation Comme nts HEMOGLOBIN A1c (test code = 69172) 12.0 % HEMOGLOBIN [id number] 00:00:00* Test Item Value Reference Range Interpretation Comme nts HEMOGLOBIN A1c (test code = 95421) 12.0 % HEMOGLOBIN [id number] 00:00:00* Test Item Value Reference Range Interpretation Comme nts HEMOGLOBIN A1c (test code = 72833) 12.0 % LIPID [id number] 00:00:00* Test Item Value Reference Range Interpretation Comme nts CHOLESTEROL (test code = 2210) 202 MG/DL TRIGLYCERIDES (test code = 2232) 147 MG/DL HDL CHOLESTEROL (test code = 2220) 57 MG/DL CALC LDL CHOL (test code = 2237) 119 MG/DL RISK RATIO LDL/HDL (test cod e = 2238) 2.09 RATIO LIPID [id number] 00:00:00* Test Item Value Reference Range Interpretation Comme nts CHOLESTEROL (test code = 2210) 202 MG/DL TRIGLYCERIDES (test code = 2232) 147 MG/DL HDL CHOLESTEROL (test code = 2220) 57 MG/DL CALC LDL CHOL (test code = 2237) 119 MG/DL RISK RATIO LDL/HDL (test cod e = 2238) 2.09 RATIO COMPREHENSIVE METABOLIC [id number] 00:00:00* Test Item Value Reference Range Interpretation Comme nts GLUCOSE (test code = 2217) 310 MG/DL BUN (test code = 2208) 15 MG/DL CREATININE (test code = 2214) 0.55 MG/DL eGFR AMER. (test cod e = 71997) 129 ML/MIN/1.73 eGFR NON- AMER. (test code = 26661) 111 ML/MIN/1.73 CALC BUN/CREAT (test code = 2235) 27 RATIO SODIUM (test code = 2231) 138 MEQ/L POTASSIUM (test code = 2228) 4.5 MEQ/L CHLORIDE (test code = 2215) 100 MEQ/L CARBON DIOXIDE (test code = 2206) 26 MEQ/L CALCIUM (test code = 2209) 9.7 MG/DL PROTEIN, TOTAL (test code = 2229) 7.2 G/DL ALBUMIN (test code = 2201) 4.0 G/DL CALC GLOBULIN (test code = 2240) 3.2 G/DL CALC A/G RATIO (test code = 2234) 1.3 RATIO BILIRUBIN, TOTAL (test code = 2207) 0.4 MG/DL ALKALINE PHOSPHATASE (test code = 2204) 96 U/L AST (test code = 2218) 16 U/L ALT (test code = 2219) 20 U/L COMPREHENSIVE METABOLIC [id number] 00:00:00* Test Item Value Reference Range Interpretation Comme nts GLUCOSE (test code = 2217) 310 MG/DL BUN (test code = 2208) 15 MG/DL CREATININE (test code = 2214) 0.55 MG/DL eGFR AMER. (test cod e = 05727) 129 ML/MIN/1.73 eGFR NON- AMER. (test code = 82506) 111 ML/MIN/1.73 CALC BUN/CREAT (test code = 2235) 27 RATIO SODIUM (test code = 2231) 138 MEQ/L POTASSIUM (test code = 2228) 4.5 MEQ/L CHLORIDE (test code = 2215) 100 MEQ/L CARBON DIOXIDE (test code = 2206) 26 MEQ/L CALCIUM (test code = 2209) 9.7 MG/DL PROTEIN, TOTAL (test code = 2229) 7.2 G/DL ALBUMIN (test code = 2201) 4.0 G/DL CALC GLOBULIN (test code = 2240) 3.2 G/DL CALC A/G RATIO (test code = 2234) 1.3 RATIO BILIRUBIN, TOTAL (test code = 2207) 0.4 MG/DL ALKALINE PHOSPHATASE (test code = 2204) 96 U/L AST (test code = 2218) 16 U/L ALT (test code = 2219) 20 U/L VITAMIN B 12 AND FOLIC [id number] 00:00:00* Test Item Value Reference Range Interpretation Comme nts VITAMIN B-12 (test code = 2840) 708 PG/ML FOLIC ACID (test code = 2695) 11.9 UG/L VITAMIN B 12 AND FOLIC [id number] 00:00:00* Test Item Value Reference Range Interpretation Comme nts VITAMIN B-12 (test code = 2840) 708 PG/ML FOLIC ACID (test code = 2695) 11.9 UG/L CBC W/AUTO [id number] 00:00:00* Test Item Value Reference Range Interpretation Comme nts WBC (test code = 1001) 8.5 K/UL RBC (test code = 1002) 4.81 M/UL HEMOGLOBIN (test code = 1003) 14.0 G/DL HEMATOCRIT (test code = 1004) 41.6 % MCV (test code = 1005) 86.5 fL MCH (test code = 1006) 29.1 PG MCHC (test code = 1007) 33.7 G/DL RDW (test code = 1038) 11.9 % NEUTROPHILS (test code = 1008) 69.8 % LYMPHOCYTES (test code = 1010) 22.1 % MONOCYTES (test code = 1011) 6.3 % EOSINOPHILS (test code = 1012) 1.3 % BASOPHILS (test code = 1013) 0.5 % PLATELET COUNT (test code = 1015) 364 K/UL CBC W/AUTO [id number] 00:00:00* Test Item Value Reference Range Interpretation Comme nts WBC (test code = 1001) 8.5 K/UL RBC (test code = 1002) 4.81 M/UL HEMOGLOBIN (test code = 1003) 14.0 G/DL HEMATOCRIT (test code = 1004) 41.6 % MCV (test code = 1005) 86.5 fL MCH (test code = 1006) 29.1 PG MCHC (test code = 1007) 33.7 G/DL RDW (test code = 1038) 11.9 % NEUTROPHILS (test code = 1008) 69.8 % LYMPHOCYTES (test code = 1010) 22.1 % MONOCYTES (test code = 1011) 6.3 % EOSINOPHILS (test code = 1012) 1.3 % BASOPHILS (test code = 1013) 0.5 % PLATELET COUNT (test code = 1015) 364 K/UL HEMOGLOBIN [id number] 00:00:00* Test Item Value Reference Range Interpretation Comme nts HEMOGLOBIN A1c (test code = 33646) 12.0 % HEMOGLOBIN [id number] 00:00:00* Test Item Value Reference Range Interpretation Comme nts HEMOGLOBIN A1c (test code = 11279) 12.0 % LIPID [id number] 00:00:00* Test Item Value Reference Range Interpretation Comme nts CHOLESTEROL (test code = 2210) 202 MG/DL TRIGLYCERIDES (test code = 2232) 147 MG/DL HDL CHOLESTEROL (test code = 2220) 57 MG/DL CALC LDL CHOL (test code = 2237) 119 MG/DL RISK RATIO LDL/HDL (test cod e = 2238) 2.09 RATIO COMPREHENSIVE METABOLIC [id number] 00:00:00* Test Item Value Reference Range Interpretation Comme nts GLUCOSE (test code = 2217) 310 MG/DL BUN (test code = 2208) 15 MG/DL CREATININE (test code = 2214) 0.55 MG/DL eGFR AMER. (test cod e = 14976) 129 ML/MIN/1.73 eGFR NON- AMER. (test code = 54535) 111 ML/MIN/1.73 CALC BUN/CREAT (test code = 2235) 27 RATIO SODIUM (test code = 2231) 138 MEQ/L POTASSIUM (test code = 2228) 4.5 MEQ/L CHLORIDE (test code = 2215) 100 MEQ/L CARBON DIOXIDE (test code = 2206) 26 MEQ/L CALCIUM (test code = 2209) 9.7 MG/DL PROTEIN, TOTAL (test code = 2229) 7.2 G/DL ALBUMIN (test code = 2201) 4.0 G/DL CALC GLOBULIN (test code = 2240) 3.2 G/DL CALC A/G RATIO (test code = 2234) 1.3 RATIO BILIRUBIN, TOTAL (test code = 2207) 0.4 MG/DL ALKALINE PHOSPHATASE (test code = 2204) 96 U/L AST (test code = 2218) 16 U/L ALT (test code = 2219) 20 U/L VITAMIN B 12 AND FOLIC [id number] 00:00:00* Test Item Value Reference Range Interpretation Comme nts VITAMIN B-12 (test code = 2840) 708 PG/ML FOLIC ACID (test code = 2695) 11.9 UG/L CBC W/AUTO [id number] 00:00:00* Test Item Value Reference Range Interpretation Comme nts WBC (test code = 1001) 8.5 K/UL RBC (test code = 1002) 4.81 M/UL HEMOGLOBIN (test code = 1003) 14.0 G/DL HEMATOCRIT (test code = 1004) 41.6 % MCV (test code = 1005) 86.5 fL MCH (test code = 1006) 29.1 PG MCHC (test code = 1007) 33.7 G/DL RDW (test code = 1038) 11.9 % NEUTROPHILS (test code = 1008) 69.8 % LYMPHOCYTES (test code = 1010) 22.1 % MONOCYTES (test code = 1011) 6.3 % EOSINOPHILS (test code = 1012) 1.3 % BASOPHILS (test code = 1013) 0.5 % PLATELET COUNT (test code = 1015) 364 K/UL CBC W/AUTO [id number] 00:00:00* Test Item Value Reference Range Interpretation Comme nts WBC (test code = 1001) 8.5 K/UL RBC (test code = 1002) 4.81 M/UL HEMOGLOBIN (test code = 1003) 14.0 G/DL HEMATOCRIT (test code = 1004) 41.6 % MCV (test code = 1005) 86.5 fL MCH (test code = 1006) 29.1 PG MCHC (test code = 1007) 33.7 G/DL RDW (test code = 1038) 11.9 % NEUTROPHILS (test code = 1008) 69.8 % LYMPHOCYTES (test code = 1010) 22.1 % MONOCYTES (test code = 1011) 6.3 % EOSINOPHILS (test code = 1012) 1.3 % BASOPHILS (test code = 1013) 0.5 % PLATELET COUNT (test code = 1015) 364 K/UL CBC W/AUTO [id number] 00:00:00* Test Item Value Reference Range Interpretation Comme nts WBC (test code = 1001) 8.5 K/UL RBC (test code = 1002) 4.81 M/UL HEMOGLOBIN (test code = 1003) 14.0 G/DL HEMATOCRIT (test code = 1004) 41.6 % MCV (test code = 1005) 86.5 fL MCH (test code = 1006) 29.1 PG MCHC (test code = 1007) 33.7 G/DL RDW (test code = 1038) 11.9 % NEUTROPHILS (test code = 1008) 69.8 % LYMPHOCYTES (test code = 1010) 22.1 % MONOCYTES (test code = 1011) 6.3 % EOSINOPHILS (test code = 1012) 1.3 % BASOPHILS (test code = 1013) 0.5 % PLATELET COUNT (test code = 1015) 364 K/UL HEMOGLOBIN [id number] 00:00:00* Test Item Value Reference Range Interpretation Comme nts HEMOGLOBIN A1c (test code = 74312) 12.0 % HEMOGLOBIN [id number] 00:00:00* Test Item Value Reference Range Interpretation Comme nts HEMOGLOBIN A1c (test code = 05022) 12.0 % HEMOGLOBIN [id number] 00:00:00* Test Item Value Reference Range Interpretation Comme nts HEMOGLOBIN A1c (test code = 60723) 12.0 % LIPID [id number] 00:00:00* Test Item Value Reference Range Interpretation Comme nts CHOLESTEROL (test code = 2210) 202 MG/DL TRIGLYCERIDES (test code = 2232) 147 MG/DL HDL CHOLESTEROL (test code = 2220) 57 MG/DL CALC LDL CHOL (test code = 2237) 119 MG/DL RISK RATIO LDL/HDL (test cod e = 2238) 2.09 RATIO LIPID [id number] 00:00:00* Test Item Value Reference Range Interpretation Comme nts CHOLESTEROL (test code = 2210) 202 MG/DL TRIGLYCERIDES (test code = 2232) 147 MG/DL HDL CHOLESTEROL (test code = 2220) 57 MG/DL CALC LDL CHOL (test code = 2237) 119 MG/DL RISK RATIO LDL/HDL (test cod e = 2238) 2.09 RATIO COMPREHENSIVE METABOLIC [id number] 00:00:00* Test Item Value Reference Range Interpretation Comme nts GLUCOSE (test code = 2217) 310 MG/DL BUN (test code = 2208) 15 MG/DL CREATININE (test code = 2214) 0.55 MG/DL eGFR AMER. (test cod e = 37157) 129 ML/MIN/1.73 eGFR NON- AMER. (test code = 03778) 111 ML/MIN/1.73 CALC BUN/CREAT (test code = 2235) 27 RATIO SODIUM (test code = 2231) 138 MEQ/L POTASSIUM (test code = 2228) 4.5 MEQ/L CHLORIDE (test code = 2215) 100 MEQ/L CARBON DIOXIDE (test code = 2206) 26 MEQ/L CALCIUM (test code = 2209) 9.7 MG/DL PROTEIN, TOTAL (test code = 2229) 7.2 G/DL ALBUMIN (test code = 2201) 4.0 G/DL CALC GLOBULIN (test code = 2240) 3.2 G/DL CALC A/G RATIO (test code = 2234) 1.3 RATIO BILIRUBIN, TOTAL (test code = 2207) 0.4 MG/DL ALKALINE PHOSPHATASE (test code = 2204) 96 U/L AST (test code = 2218) 16 U/L ALT (test code = 2219) 20 U/L COMPREHENSIVE METABOLIC [id number] 00:00:00* Test Item Value Reference Range Interpretation Comme nts GLUCOSE (test code = 2217) 310 MG/DL BUN (test code = 2208) 15 MG/DL CREATININE (test code = 2214) 0.55 MG/DL eGFR AMER. (test cod e = 25574) 129 ML/MIN/1.73 eGFR NON- AMER. (test code = 93131) 111 ML/MIN/1.73 CALC BUN/CREAT (test code = 2235) 27 RATIO SODIUM (test code = 2231) 138 MEQ/L POTASSIUM (test code = 2228) 4.5 MEQ/L CHLORIDE (test code = 2215) 100 MEQ/L CARBON DIOXIDE (test code = 2206) 26 MEQ/L CALCIUM (test code = 2209) 9.7 MG/DL PROTEIN, TOTAL (test code = 2229) 7.2 G/DL ALBUMIN (test code = 2201) 4.0 G/DL CALC GLOBULIN (test code = 2240) 3.2 G/DL CALC A/G RATIO (test code = 2234) 1.3 RATIO BILIRUBIN, TOTAL (test code = 2207) 0.4 MG/DL ALKALINE PHOSPHATASE (test code = 2204) 96 U/L AST (test code = 2218) 16 U/L ALT (test code = 2219) 20 U/L VITAMIN B 12 AND FOLIC [id number] 00:00:00* Test Item Value Reference Range Interpretation Comme nts VITAMIN B-12 (test code = 2840) 708 PG/ML FOLIC ACID (test code = 2695) 11.9 UG/L VITAMIN B 12 AND FOLIC [id number] 00:00:00* Test Item Value Reference Range Interpretation Comme nts VITAMIN B-12 (test code = 2840) 708 PG/ML FOLIC ACID (test code = 2695) 11.9 UG/L CBC W/AUTO [id number] 00:00:00* Test Item Value Reference Range Interpretation Comme nts WBC (test code = 1001) 8.5 K/UL RBC (test code = 1002) 4.81 M/UL HEMOGLOBIN (test code = 1003) 14.0 G/DL HEMATOCRIT (test code = 1004) 41.6 % MCV (test code = 1005) 86.5 fL MCH (test code = 1006) 29.1 PG MCHC (test code = 1007) 33.7 G/DL RDW (test code = 1038) 11.9 % NEUTROPHILS (test code = 1008) 69.8 % LYMPHOCYTES (test code = 1010) 22.1 % MONOCYTES (test code = 1011) 6.3 % EOSINOPHILS (test code = 1012) 1.3 % BASOPHILS (test code = 1013) 0.5 % PLATELET COUNT (test code = 1015) 364 K/UL CBC W/AUTO [id number] 00:00:00* Test Item Value Reference Range Interpretation Comme nts WBC (test code = 1001) 8.5 K/UL RBC (test code = 1002) 4.81 M/UL HEMOGLOBIN (test code = 1003) 14.0 G/DL HEMATOCRIT (test code = 1004) 41.6 % MCV (test code = 1005) 86.5 fL MCH (test code = 1006) 29.1 PG MCHC (test code = 1007) 33.7 G/DL RDW (test code = 1038) 11.9 % NEUTROPHILS (test code = 1008) 69.8 % LYMPHOCYTES (test code = 1010) 22.1 % MONOCYTES (test code = 1011) 6.3 % EOSINOPHILS (test code = 1012) 1.3 % BASOPHILS (test code = 1013) 0.5 % PLATELET COUNT (test code = 1015) 364 K/UL CBC W/AUTO [id number] 00:00:00* Test Item Value Reference Range Interpretation Comme nts WBC (test code = 1001) 8.5 K/UL RBC (test code = 1002) 4.81 M/UL HEMOGLOBIN (test code = 1003) 14.0 G/DL HEMATOCRIT (test code = 1004) 41.6 % MCV (test code = 1005) 86.5 fL MCH (test code = 1006) 29.1 PG MCHC (test code = 1007) 33.7 G/DL RDW (test code = 1038) 11.9 % NEUTROPHILS (test code = 1008) 69.8 % LYMPHOCYTES (test code = 1010) 22.1 % MONOCYTES (test code = 1011) 6.3 % EOSINOPHILS (test code = 1012) 1.3 % BASOPHILS (test code = 1013) 0.5 % PLATELET COUNT (test code = 1015) 364 K/UL SARS-CoV-2 (COVID-19) by RT-PCR (HIGH RISK)2020-04-01 00:00:00* Test Item Value Reference Range Interpretation Comme nts SARS-CoV-2 INTERPRETATION (t est code = 06507) NEGATIVE SOURCE (test code = 86162) NOT SPECIFIED SARS-CoV-2 (COVID-19) by RT-PCR (HIGH RISK)2020-04-01 00:00:00* Test Item Value Reference Range Interpretation Comme nts SARS-CoV-2 INTERPRETATION (t est code = 85098) NEGATIVE SOURCE (test code = 18576) NOT SPECIFIED SARS-CoV-2 (COVID-19) by RT-PCR (HIGH RISK)2020-04-01 00:00:00* Test Item Value Reference Range Interpretation Comme nts SARS-CoV-2 INTERPRETATION (t est code = 04042) NEGATIVE SOURCE (test code = 78015) NOT SPECIFIED SARS-CoV-2 (COVID-19) by RT-PCR (HIGH RISK)2020-04-01 00:00:00* Test Item Value Reference Range Interpretation Comme nts SARS-CoV-2 INTERPRETATION (t est code = 41881) NEGATIVE SOURCE (test code = 90368) NOT SPECIFIED SARS-CoV-2 (COVID-19) by RT-PCR (HIGH RISK)2020-04-01 00:00:00* Test Item Value Reference Range Interpretation Comme nts SARS-CoV-2 INTERPRETATION (t est code = 59243) NEGATIVE SOURCE (test code = 77346) NOT SPECIFIED SARS-CoV-2 (COVID-19) by RT-PCR (HIGH RISK)2020-04-01 00:00:00* Test Item Value Reference Range Interpretation Comme nts SARS-CoV-2 INTERPRETATION (t est code = 38430) NEGATIVE SOURCE (test code = 29086) NOT SPECIFIED SARS-CoV-2 (COVID-19) by RT-PCR (HIGH RISK)2020-04-01 00:00:00* Test Item Value Reference Range Interpretation Comme nts SARS-CoV-2 INTERPRETATION (t est code = 01254) NEGATIVE SOURCE (test code = 63991) NOT SPECIFIED PAP TEST, THINPREP, [id number] 00:00:00* Test Item Value Reference Range Interpretation Comme nts SOURCE: (test code = 8001) Cervical/Endocervical SLIDES: (test code = 8011) 1 LMP: (test code = 8021) MIRENA SPECIMEN ADEQUACY: (test code = 22665) (NOTE) INTERPRETATION: (test code = 13448) NILM/NO EPITH. ABNORMALITY;SEE BELOW OTHER COMMENTS: (test code = 8081) (NOTE) BROADCAST FIELD SUPERVISOR: (test code = 8101) BETTY Cline(ASCP)IAC QC TECHNOLOGIST: (test code = 8111) Ney BullardSCT(ASCP),IAC LOCATION: (test code = 64706) (NOTE) CPT: (test code = 8140) (NOTE) PAP TEST, THINPREP, [id number] 00:00:00* Test Item Value Reference Range Interpretation Comme nts SOURCE: (test code = 8001) Cervical/Endocervical SLIDES: (test code = 8011) 1 LMP: (test code = 8021) MIRENA SPECIMEN ADEQUACY: (test code = 51612) (NOTE) INTERPRETATION: (test code = 38259) NILM/NO EPITH. ABNORMALITY;SEE BELOW OTHER COMMENTS: (test code = 8081) (NOTE) BROADCAST FIELD SUPERVISOR: (test code = 8101) BETTY Cline(ASCP)IAC QC TECHNOLOGIST: (test code = 8111) Ney BullardSCT(ASCP),IAC LOCATION: (test code = 77580) (NOTE) CPT: (test code = 8140) (NOTE) PAP TEST, THINPREP, [id number] 00:00:00* Test Item Value Reference Range Interpretation Comme nts SOURCE: (test code = 8001) Cervical/Endocervical SLIDES: (test code = 8011) 1 LMP: (test code = 8021) MIRENA SPECIMEN ADEQUACY: (test code = 60008) (NOTE) INTERPRETATION: (test code = 22679) NILM/NO EPITH. ABNORMALITY;SEE BELOW OTHER COMMENTS: (test code = 8081) (NOTE) BROADCAST FIELD SUPERVISOR: (test code = 8101) BETTY Cline(ASCP)IAC QC TECHNOLOGIST: (test code = 8111) Ney BullardSCT(ASCP),IAC LOCATION: (test code = 62956) (NOTE) CPT: (test code = 8140) (NOTE) PAP TEST, THINPREP, [id number] 00:00:00* Test Item Value Reference Range Interpretation Comme nts SOURCE: (test code = 8001) Cervical/Endocervical SLIDES: (test code = 8011) 1 LMP: (test code = 8021) MIRENA SPECIMEN ADEQUACY: (test code = 89147) (NOTE) INTERPRETATION: (test code = 67416) NILM/NO EPITH. ABNORMALITY;SEE BELOW OTHER COMMENTS: (test code = 8081) (NOTE) BROADCAST FIELD SUPERVISOR: (test code = 8101) BETTY Cline(ASCP)IAC QC TECHNOLOGIST: (test code = 8111) Ney BullardSCT(ASCP),IAC LOCATION: (test code = 98636) (NOTE) CPT: (test code = 8140) (NOTE) PAP TEST, THINPREP, [id number] 00:00:00* Test Item Value Reference Range Interpretation Comme nts SOURCE: (test code = 8001) Cervical/Endocervical SLIDES: (test code = 8011) 1 LMP: (test code = 8021) MIRENA SPECIMEN ADEQUACY: (test code = 48206) (NOTE) INTERPRETATION: (test code = 73344) NILM/NO EPITH. ABNORMALITY;SEE BELOW OTHER COMMENTS: (test code = 8081) (NOTE) BROADCAST FIELD SUPERVISOR: (test code = 8101) BETTY Cline(ASCP)IAC QC TECHNOLOGIST: (test code = 8111) BOYD Gabriel(ASCP),IAC LOCATION: (test code = 29544) (NOTE) CPT: (test code = 8140) (NOTE) PAP TEST, THINPREP, [id number] 00:00:00* Test Item Value Reference Range Interpretation Comme nts SOURCE: (test code = 8001) Cervical/Endocervical SLIDES: (test code = 8011) 1 LMP: (test code = 8021) MIRENA SPECIMEN ADEQUACY: (test code = 64762) (NOTE) INTERPRETATION: (test code = 58261) NILM/NO EPITH. ABNORMALITY;SEE BELOW OTHER COMMENTS: (test code = 8081) (NOTE) BROADCAST FIELD SUPERVISOR: (test code = 8101) BETTY Cline(ASCP)IAC QC TECHNOLOGIST: (test code = 8111) BOYD Gabriel(ASCP),IAC LOCATION: (test code = 38316) (NOTE) CPT: (test code = 8140) (NOTE) PAP TEST, THINPREP, [id number] 00:00:00* Test Item Value Reference Range Interpretation Comme nts SOURCE: (test code = 8001) Cervical/Endocervical SLIDES: (test code = 8011) 1 LMP: (test code = 8021) MIRENA SPECIMEN ADEQUACY: (test code = 93243) (NOTE) INTERPRETATION: (test code = 87246) NILM/NO EPITH. ABNORMALITY;SEE BELOW OTHER COMMENTS: (test code = 8081) (NOTE) BROADCAST FIELD SUPERVISOR: (test code = 8101) BETTY Cline(ASCP)IAC QC TECHNOLOGIST: (test code = 8111) BOYD Gabriel(ASCP),IAC LOCATION: (test code = 92727) (NOTE) CPT: (test code = 8140) (NOTE) HPV HIGH RISK WITH GENOTYPE, [id number] 00:00:00* Test Item Value Reference Range Interpretation Comme nts HPV HIGH RISK INTERP (test c ode = 80015) NEGATIVE HPV 16 (test code = 41738) NEGATIVE HPV 18 (test code = 05319) NEGATIVE HPV, HR, OTHER GENOTYPES (te st code = 51696) NEGATIVE HPV HIGH RISK WITH GENOTYPE, [id number] 00:00:00* Test Item Value Reference Range Interpretation Comme nts HPV HIGH RISK INTERP (test c ode = 40495) NEGATIVE HPV 16 (test code = 52332) NEGATIVE HPV 18 (test code = 45362) NEGATIVE HPV, HR, OTHER GENOTYPES (te st code = 64983) NEGATIVE HPV HIGH RISK WITH GENOTYPE, [id number] 00:00:00* Test Item Value Reference Range Interpretation Comme nts HPV HIGH RISK INTERP (test c ode = 84023) NEGATIVE HPV 16 (test code = 21508) NEGATIVE HPV 18 (test code = 62240) NEGATIVE HPV, HR, OTHER GENOTYPES (te st code = 19275) NEGATIVE HPV HIGH RISK WITH GENOTYPE, [id number] 00:00:00* Test Item Value Reference Range Interpretation Comme nts HPV HIGH RISK INTERP (test c ode = 92692) NEGATIVE HPV 16 (test code = 39174) NEGATIVE HPV 18 (test code = 08102) NEGATIVE HPV, HR, OTHER GENOTYPES (te st code = 35593) NEGATIVE HPV HIGH RISK WITH GENOTYPE, [id number] 00:00:00* Test Item Value Reference Range Interpretation Comme nts HPV HIGH RISK INTERP (test c ode = 24833) NEGATIVE HPV 16 (test code = 79161) NEGATIVE HPV 18 (test code = 49441) NEGATIVE HPV, HR, OTHER GENOTYPES (te st code = 66593) NEGATIVE HPV HIGH RISK WITH GENOTYPE, [id number] 00:00:00* Test Item Value Reference Range Interpretation Comme nts HPV HIGH RISK INTERP (test c ode = 48349) NEGATIVE HPV 16 (test code = 53596) NEGATIVE HPV 18 (test code = 55109) NEGATIVE HPV, HR, OTHER GENOTYPES (te st code = 33897) NEGATIVE HPV HIGH RISK WITH GENOTYPE, [id number] 00:00:00* Test Item Value Reference Range Interpretation Comme nts HPV HIGH RISK INTERP (test c ode = 60912) NEGATIVE HPV 16 (test code = 89007) NEGATIVE HPV 18 (test code = 01574) NEGATIVE HPV, HR, OTHER GENOTYPES (te st code = 88285) NEGATIVE GC AND CHLAMYDIA AMPLIFIED, [id number] 00:00:00* Test Item Value Reference Range Interpretation Comme nts GONORRHEA, TMA (test code = 80263) NEGATIVE CHLAMYDIA, TMA (test code = 48157) NEGATIVE GC AND CHLAMYDIA AMPLIFIED, [id number] 00:00:00* Test Item Value Reference Range Interpretation Comme nts GONORRHEA, TMA (test code = 44378) NEGATIVE CHLAMYDIA, TMA (test code = 55160) NEGATIVE GC AND CHLAMYDIA AMPLIFIED, [id number] 00:00:00* Test Item Value Reference Range Interpretation Comme nts GONORRHEA, TMA (test code = 58464) NEGATIVE CHLAMYDIA, TMA (test code = 95075) NEGATIVE GC AND CHLAMYDIA AMPLIFIED, [id number] 00:00:00* Test Item Value Reference Range Interpretation Comme nts GONORRHEA, TMA (test code = 40928) NEGATIVE CHLAMYDIA, TMA (test code = 91239) NEGATIVE GC AND CHLAMYDIA AMPLIFIED, [id number] 00:00:00* Test Item Value Reference Range Interpretation Comme nts GONORRHEA, TMA (test code = 58923) NEGATIVE CHLAMYDIA, TMA (test code = 77735) NEGATIVE GC AND CHLAMYDIA AMPLIFIED, [id number] 00:00:00* Test Item Value Reference Range Interpretation Comme nts GONORRHEA, TMA (test code = 09945) NEGATIVE CHLAMYDIA, TMA (test code = 63753) NEGATIVE GC AND CHLAMYDIA AMPLIFIED, [id number] 00:00:00* Test Item Value Reference Range Interpretation Comme nts GONORRHEA, TMA (test code = 72151) NEGATIVE CHLAMYDIA, TMA (test code = 65755) NEGATIVE HEMOGLOBIN [id number] 00:00:00* Test Item Value Reference Range Interpretation Comme nts HEMOGLOBIN A1c (test code = 77631) 11.9 % HEMOGLOBIN [id number] 00:00:00* Test Item Value Reference Range Interpretation Comme nts HEMOGLOBIN A1c (test code = 00447) 11.9 % HEMOGLOBIN [id number] 00:00:00* Test Item Value Reference Range Interpretation Comme nts HEMOGLOBIN A1c (test code = 43734) 11.9 % HEMOGLOBIN [id number] 00:00:00* Test Item Value Reference Range Interpretation Comme nts HEMOGLOBIN A1c (test code = 76608) 11.9 % HEMOGLOBIN [id number] 00:00:00* Test Item Value Reference Range Interpretation Comme nts HEMOGLOBIN A1c (test code = 35609) 11.9 % HEMOGLOBIN [id number] 00:00:00* Test Item Value Reference Range Interpretation Comme nts HEMOGLOBIN A1c (test code = 95324) 11.9 % HEMOGLOBIN [id number] 00:00:00* Test Item Value Reference Range Interpretation Comme nts HEMOGLOBIN A1c (test code = 50333) 11.9 % HEMOGLOBIN [id number] 00:00:00* Test Item Value Reference Range Interpretation Comme nts HEMOGLOBIN A1c (test code = 70088) 11.9 % HEMOGLOBIN [id number] 00:00:00* Test Item Value Reference Range Interpretation Comme nts HEMOGLOBIN A1c (test code = 86149) 11.9 % HEMOGLOBIN [id number] 00:00:00* Test Item Value Reference Range Interpretation Comme nts HEMOGLOBIN A1c (test code = 22608) 11.9 % HEMOGLOBIN [id number] 00:00:00* Test Item Value Reference Range Interpretation Comme nts HEMOGLOBIN A1c (test code = 95071) 11.9 % COMPREHENSIVE METABOLIC [id number] 00:00:00* Test Item Value Reference Range Interpretation Comme nts GLUCOSE (test code = 2217) 202 MG/DL BUN (test code = 2208) 9 MG/DL CREATININE (test code = 2214) 0.50 MG/DL eGFR AMER. (test cod e = 63303) 135 ML/MIN/1.73 eGFR NON- AMER. (test code = 00545) 116 ML/MIN/1.73 CALC BUN/CREAT (test code = 2235) 18 RATIO SODIUM (test code = 2231) 139 MEQ/L POTASSIUM (test code = 2228) 4.0 MEQ/L CHLORIDE (test code = 2215) 99 MEQ/L CARBON DIOXIDE (test code = 2206) 30 MEQ/L CALCIUM (test code = 2209) 8.9 MG/DL PROTEIN, TOTAL (test code = 2229) 7.3 G/DL ALBUMIN (test code = 2201) 4.0 G/DL CALC GLOBULIN (test code = 2240) 3.3 G/DL CALC A/G RATIO (test code = 2234) 1.2 RATIO BILIRUBIN, TOTAL (test code = 2207) 0.4 MG/DL ALKALINE PHOSPHATASE (test code = 2204) 69 U/L AST (test code = 2218) 14 U/L ALT (test code = 2219) 20 U/L COMPREHENSIVE METABOLIC [id number] 00:00:00* Test Item Value Reference Range Interpretation Comme nts GLUCOSE (test code = 2217) 202 MG/DL BUN (test code = 2208) 9 MG/DL CREATININE (test code = 2214) 0.50 MG/DL eGFR AMER. (test cod e = 19665) 135 ML/MIN/1.73 eGFR NON- AMER. (test code = 29119) 116 ML/MIN/1.73 CALC BUN/CREAT (test code = 2235) 18 RATIO SODIUM (test code = 2231) 139 MEQ/L POTASSIUM (test code = 2228) 4.0 MEQ/L CHLORIDE (test code = 2215) 99 MEQ/L CARBON DIOXIDE (test code = 2206) 30 MEQ/L CALCIUM (test code = 2209) 8.9 MG/DL PROTEIN, TOTAL (test code = 2229) 7.3 G/DL ALBUMIN (test code = 2201) 4.0 G/DL CALC GLOBULIN (test code = 2240) 3.3 G/DL CALC A/G RATIO (test code = 2234) 1.2 RATIO BILIRUBIN, TOTAL (test code = 2207) 0.4 MG/DL ALKALINE PHOSPHATASE (test code = 2204) 69 U/L AST (test code = 2218) 14 U/L ALT (test code = 2219) 20 U/L COMPREHENSIVE METABOLIC [id number] 00:00:00* Test Item Value Reference Range Interpretation Comme nts GLUCOSE (test code = 2217) 202 MG/DL BUN (test code = 2208) 9 MG/DL CREATININE (test code = 2214) 0.50 MG/DL eGFR AMER. (test cod e = 63218) 135 ML/MIN/1.73 eGFR NON- AMER. (test code = 55172) 116 ML/MIN/1.73 CALC BUN/CREAT (test code = 2235) 18 RATIO SODIUM (test code = 2231) 139 MEQ/L POTASSIUM (test code = 2228) 4.0 MEQ/L CHLORIDE (test code = 2215) 99 MEQ/L CARBON DIOXIDE (test code = 2206) 30 MEQ/L CALCIUM (test code = 2209) 8.9 MG/DL PROTEIN, TOTAL (test code = 2229) 7.3 G/DL ALBUMIN (test code = 2201) 4.0 G/DL CALC GLOBULIN (test code = 2240) 3.3 G/DL CALC A/G RATIO (test code = 2234) 1.2 RATIO BILIRUBIN, TOTAL (test code = 2207) 0.4 MG/DL ALKALINE PHOSPHATASE (test code = 2204) 69 U/L AST (test code = 2218) 14 U/L ALT (test code = 2219) 20 U/L COMPREHENSIVE METABOLIC [id number] 00:00:00* Test Item Value Reference Range Interpretation Comme nts GLUCOSE (test code = 2217) 202 MG/DL BUN (test code = 2208) 9 MG/DL CREATININE (test code = 2214) 0.50 MG/DL eGFR AMER. (test cod e = 63282) 135 ML/MIN/1.73 eGFR NON- AMER. (test code = 60425) 116 ML/MIN/1.73 CALC BUN/CREAT (test code = 2235) 18 RATIO SODIUM (test code = 2231) 139 MEQ/L POTASSIUM (test code = 2228) 4.0 MEQ/L CHLORIDE (test code = 2215) 99 MEQ/L CARBON DIOXIDE (test code = 2206) 30 MEQ/L CALCIUM (test code = 2209) 8.9 MG/DL PROTEIN, TOTAL (test code = 2229) 7.3 G/DL ALBUMIN (test code = 2201) 4.0 G/DL CALC GLOBULIN (test code = 2240) 3.3 G/DL CALC A/G RATIO (test code = 2234) 1.2 RATIO BILIRUBIN, TOTAL (test code = 2207) 0.4 MG/DL ALKALINE PHOSPHATASE (test code = 2204) 69 U/L AST (test code = 2218) 14 U/L ALT (test code = 2219) 20 U/L COMPREHENSIVE METABOLIC [id number] 00:00:00* Test Item Value Reference Range Interpretation Comme nts GLUCOSE (test code = 2217) 202 MG/DL BUN (test code = 2208) 9 MG/DL CREATININE (test code = 2214) 0.50 MG/DL eGFR AMER. (test cod e = 61526) 135 ML/MIN/1.73 eGFR NON- AMER. (test code = 28542) 116 ML/MIN/1.73 CALC BUN/CREAT (test code = 2235) 18 RATIO SODIUM (test code = 2231) 139 MEQ/L POTASSIUM (test code = 2228) 4.0 MEQ/L CHLORIDE (test code = 2215) 99 MEQ/L CARBON DIOXIDE (test code = 2206) 30 MEQ/L CALCIUM (test code = 2209) 8.9 MG/DL PROTEIN, TOTAL (test code = 2229) 7.3 G/DL ALBUMIN (test code = 2201) 4.0 G/DL CALC GLOBULIN (test code = 2240) 3.3 G/DL CALC A/G RATIO (test code = 2234) 1.2 RATIO BILIRUBIN, TOTAL (test code = 2207) 0.4 MG/DL ALKALINE PHOSPHATASE (test code = 2204) 69 U/L AST (test code = 2218) 14 U/L ALT (test code = 2219) 20 U/L COMPREHENSIVE METABOLIC [id number] 00:00:00* Test Item Value Reference Range Interpretation Comme nts GLUCOSE (test code = 2217) 202 MG/DL BUN (test code = 2208) 9 MG/DL CREATININE (test code = 2214) 0.50 MG/DL eGFR AMER. (test cod e = 84393) 135 ML/MIN/1.73 eGFR NON- AMER. (test code = 64201) 116 ML/MIN/1.73 CALC BUN/CREAT (test code = 2235) 18 RATIO SODIUM (test code = 2231) 139 MEQ/L POTASSIUM (test code = 2228) 4.0 MEQ/L CHLORIDE (test code = 2215) 99 MEQ/L CARBON DIOXIDE (test code = 2206) 30 MEQ/L CALCIUM (test code = 2209) 8.9 MG/DL PROTEIN, TOTAL (test code = 2229) 7.3 G/DL ALBUMIN (test code = 2201) 4.0 G/DL CALC GLOBULIN (test code = 2240) 3.3 G/DL CALC A/G RATIO (test code = 2234) 1.2 RATIO BILIRUBIN, TOTAL (test code = 2207) 0.4 MG/DL ALKALINE PHOSPHATASE (test code = 2204) 69 U/L AST (test code = 2218) 14 U/L ALT (test code = 2219) 20 U/L COMPREHENSIVE METABOLIC [id number] 00:00:00* Test Item Value Reference Range Interpretation Comme nts GLUCOSE (test code = 2217) 202 MG/DL BUN (test code = 2208) 9 MG/DL CREATININE (test code = 2214) 0.50 MG/DL eGFR AMER. (test cod e = 29656) 135 ML/MIN/1.73 eGFR NON- AMER. (test code = 62731) 116 ML/MIN/1.73 CALC BUN/CREAT (test code = 2235) 18 RATIO SODIUM (test code = 2231) 139 MEQ/L POTASSIUM (test code = 2228) 4.0 MEQ/L CHLORIDE (test code = 2215) 99 MEQ/L CARBON DIOXIDE (test code = 2206) 30 MEQ/L CALCIUM (test code = 2209) 8.9 MG/DL PROTEIN, TOTAL (test code = 2229) 7.3 G/DL ALBUMIN (test code = 2201) 4.0 G/DL CALC GLOBULIN (test code = 2240) 3.3 G/DL CALC A/G RATIO (test code = 2234) 1.2 RATIO BILIRUBIN, TOTAL (test code = 2207) 0.4 MG/DL ALKALINE PHOSPHATASE (test code = 2204) 69 U/L AST (test code = 2218) 14 U/L ALT (test code = 2219) 20 U/L HEMOGLOBIN [id number] 00:00:00* Test Item Value Reference Range Interpretation Comme nts HEMOGLOBIN A1c (test code = 69479) 11.2 % HEMOGLOBIN [id number] 00:00:00* Test Item Value Reference Range Interpretation Comme nts HEMOGLOBIN A1c (test code = 19130) 11.2 % HEMOGLOBIN [id number] 00:00:00* Test Item Value Reference Range Interpretation Comme nts HEMOGLOBIN A1c (test code = 35062) 11.2 % HEMOGLOBIN [id number] 00:00:00* Test Item Value Reference Range Interpretation Comme nts HEMOGLOBIN A1c (test code = 76897) 11.2 % HEMOGLOBIN [id number] 00:00:00* Test Item Value Reference Range Interpretation Comme nts HEMOGLOBIN A1c (test code = 08638) 11.2 % HEMOGLOBIN [id number] 00:00:00* Test Item Value Reference Range Interpretation Comme nts HEMOGLOBIN A1c (test code = 65623) 11.2 % HEMOGLOBIN [id number] 00:00:00* Test Item Value Reference Range Interpretation Comme nts HEMOGLOBIN A1c (test code = 70474) 11.2 % HEMOGLOBIN [id number] 00:00:00* Test Item Value Reference Range Interpretation Comme nts HEMOGLOBIN A1c (test code = 44381) 11.2 % HEMOGLOBIN [id number] 00:00:00* Test Item Value Reference Range Interpretation Comme nts HEMOGLOBIN A1c (test code = 55746) 11.2 % HEMOGLOBIN [id number] 00:00:00* Test Item Value Reference Range Interpretation Comme nts HEMOGLOBIN A1c (test code = 05036) 11.2 % HEMOGLOBIN [id number] 00:00:00* Test Item Value Reference Range Interpretation Comme nts HEMOGLOBIN A1c (test code = 21988) 11.2 % PAP TEST, THINPREP, [id number] 00:00:00* Test Item Value Reference Range Interpretation Comme nts SOURCE: (test code = 8001) Cervical/Endocervical SLIDES: (test code = 8011) 1 LMP: (test code = 8021) SPECIMEN ADEQUACY: (test code = 74073) (NOTE) INTERPRETATION: (test code = 73064) NO EPITHELIAL ABNORMALITY SEE BELOW OTHER COMMENTS: (test code = 8081) (NOTE) BROADCAST FIELD SUPERVISOR: (test code = 8101) Shell Castaneda, CT(ASCP)IAC QC TECHNOLOGIST: (test code = 8111) Ney Bullard,SCT(ASCP),IAC LOCATION: (test code = 58308) (NOTE) CPT: (test code = 8140) (NOTE) PAP TEST, THINPREP, [id number] 00:00:00* Test Item Value Reference Range Interpretation Comme nts SOURCE: (test code = 8001) Cervical/Endocervical SLIDES: (test code = 8011) 1 LMP: (test code = 8021) SPECIMEN ADEQUACY: (test code = 12151) (NOTE) INTERPRETATION: (test code = 44424) NO EPITHELIAL ABNORMALITY SEE BELOW OTHER COMMENTS: (test code = 8081) (NOTE) BROADCAST FIELD SUPERVISOR: (test code = 8101) BETTY Wilson(ASCP)IAC QC TECHNOLOGIST: (test code = 8111) BOYD Gabriel(ASCP),IAC LOCATION: (test code = 39836) (NOTE) CPT: (test code = 8140) (NOTE) PAP TEST, THINPREP, [id number] 00:00:00* Test Item Value Reference Range Interpretation Comme nts SOURCE: (test code = 8001) Cervical/Endocervical SLIDES: (test code = 8011) 1 LMP: (test code = 8021) SPECIMEN ADEQUACY: (test code = 81557) (NOTE) INTERPRETATION: (test code = 74464) NO EPITHELIAL ABNORMALITY SEE BELOW OTHER COMMENTS: (test code = 8081) (NOTE) BROADCAST FIELD SUPERVISOR: (test code = 8101) BETTY Wilson(ASCP)IAC QC TECHNOLOGIST: (test code = 8111) BOYD Gabriel(ASCP),IAC LOCATION: (test code = 26093) (NOTE) CPT: (test code = 8140) (NOTE) PAP TEST, THINPREP, [id number] 00:00:00* Test Item Value Reference Range Interpretation Comme nts SOURCE: (test code = 8001) Cervical/Endocervical SLIDES: (test code = 8011) 1 LMP: (test code = 8021) SPECIMEN ADEQUACY: (test code = 26429) (NOTE) INTERPRETATION: (test code = 41011) NO EPITHELIAL ABNORMALITY SEE BELOW OTHER COMMENTS: (test code = 8081) (NOTE) BROADCAST FIELD SUPERVISOR: (test code = 8101) BETTY Wilson(ASCP)IAC QC TECHNOLOGIST: (test code = 8111) BOYD Gabriel(ASCP),IAC LOCATION: (test code = 75831) (NOTE) CPT: (test code = 8140) (NOTE) PAP TEST, THINPREP, [id number] 00:00:00* Test Item Value Reference Range Interpretation Comme nts SOURCE: (test code = 8001) Cervical/Endocervical SLIDES: (test code = 8011) 1 LMP: (test code = 8021) SPECIMEN ADEQUACY: (test code = 45595) (NOTE) INTERPRETATION: (test code = 00062) NO EPITHELIAL ABNORMALITY SEE BELOW OTHER COMMENTS: (test code = 8081) (NOTE) BROADCAST FIELD SUPERVISOR: (test code = 8101) BETTY Wilson(ASCP)IAC QC TECHNOLOGIST: (test code = 8111) BOYD Gabriel(ASCP),[facility] LOCATION: (test code = 88859) (NOTE) CPT: (test code = 8140) (NOTE) PAP TEST, THINPREP, [id number] 00:00:00* Test Item Value Reference Range Interpretation Comme nts SOURCE: (test code = 8001) Cervical/Endocervical SLIDES: (test code = 8011) 1 LMP: (test code = 8021) SPECIMEN ADEQUACY: (test code = 69503) (NOTE) INTERPRETATION: (test code = 07762) NO EPITHELIAL ABNORMALITY SEE BELOW OTHER COMMENTS: (test code = 8081) (NOTE) BROADCAST FIELD SUPERVISOR: (test code = 8101) BETTY Wilson(ASCP)IAC QC TECHNOLOGIST: (test code = 8111) BOYD Gabriel(ASCP),IAC LOCATION: (test code = 44206) (NOTE) CPT: (test code = 8140) (NOTE) PAP TEST, THINPREP, [id number] 00:00:00* Test Item Value Reference Range Interpretation Comme nts SOURCE: (test code = 8001) Cervical/Endocervical SLIDES: (test code = 8011) 1 LMP: (test code = 8021) SPECIMEN ADEQUACY: (test code = 95086) (NOTE) INTERPRETATION: (test code = 33260) NO EPITHELIAL ABNORMALITY SEE BELOW OTHER COMMENTS: (test code = 8081) (NOTE) BROADCAST FIELD SUPERVISOR: (test code = 8101) Shell Csataneda, CT(ASCP)IAC QC TECHNOLOGIST: (test code = 8111) Ney Bullard,SCT(ASCP),[facility] LOCATION: (test code = 04797) (NOTE) CPT: (test code = 8140) (NOTE) HPV HIGH RISK WITH GENOTYPE, [id number] 00:00:00* Test Item Value Reference Range Interpretation Comme nts HPV HIGH RISK INTERP (test c ode = 17839) POSITIVE HPV 16 (test code = 59086) NEGATIVE HPV 18 (test code = 11292) NEGATIVE HPV, HR, OTHER GENOTYPES (te st code = 32573) POSITIVE HPV HIGH RISK WITH GENOTYPE, [id number] 00:00:00* Test Item Value Reference Range Interpretation Comme nts HPV HIGH RISK INTERP (test c ode = 16861) POSITIVE HPV 16 (test code = 31380) NEGATIVE HPV 18 (test code = 94013) NEGATIVE HPV, HR, OTHER GENOTYPES (te st code = 17654) POSITIVE HPV HIGH RISK WITH GENOTYPE, [id number] 00:00:00* Test Item Value Reference Range Interpretation Comme nts HPV HIGH RISK INTERP (test c ode = 51257) POSITIVE HPV 16 (test code = 36261) NEGATIVE HPV 18 (test code = 81255) NEGATIVE HPV, HR, OTHER GENOTYPES (te st code = 97759) POSITIVE HPV HIGH RISK WITH GENOTYPE, [id number] 00:00:00* Test Item Value Reference Range Interpretation Comme nts HPV HIGH RISK INTERP (test c ode = 12677) POSITIVE HPV 16 (test code = 06950) NEGATIVE HPV 18 (test code = 57276) NEGATIVE HPV, HR, OTHER GENOTYPES (te st code = 09576) POSITIVE HPV HIGH RISK WITH GENOTYPE, [id number] 00:00:00* Test Item Value Reference Range Interpretation Comme nts HPV HIGH RISK INTERP (test c ode = 71604) POSITIVE HPV 16 (test code = 21510) NEGATIVE HPV 18 (test code = 79682) NEGATIVE HPV, HR, OTHER GENOTYPES (te st code = 53490) POSITIVE HPV HIGH RISK WITH GENOTYPE, [id number] 00:00:00* Test Item Value Reference Range Interpretation Comme nts HPV HIGH RISK INTERP (test c ode = 19073) POSITIVE HPV 16 (test code = 83736) NEGATIVE HPV 18 (test code = 60221) NEGATIVE HPV, HR, OTHER GENOTYPES (te st code = 83958) POSITIVE HPV HIGH RISK WITH GENOTYPE, [id number] 00:00:00* Test Item Value Reference Range Interpretation Comme nts HPV HIGH RISK INTERP (test c ode = 77837) POSITIVE HPV 16 (test code = 67065) NEGATIVE HPV 18 (test code = 73602) NEGATIVE HPV, HR, OTHER GENOTYPES (te st code = 02079) POSITIVE LIPID [id number] 00:00:00* Test Item Value Reference Range Interpretation Comme nts CHOLESTEROL (test code = 2210) 167 MG/DL TRIGLYCERIDES (test code = 2232) 118 MG/DL HDL CHOLESTEROL (test code = 2220) 57 MG/DL CALC LDL CHOL (test code = 2237) 86 MG/DL RISK RATIO LDL/HDL (test cod e = 2238) 1.52 RATIO LIPID [id number] 00:00:00* Test Item Value Reference Range Interpretation Comme nts CHOLESTEROL (test code = 2210) 167 MG/DL TRIGLYCERIDES (test code = 2232) 118 MG/DL HDL CHOLESTEROL (test code = 2220) 57 MG/DL CALC LDL CHOL (test code = 2237) 86 MG/DL RISK RATIO LDL/HDL (test cod e = 2238) 1.52 RATIO CBC W/AUTO [id number] 00:00:00* Test Item Value Reference Range Interpretation Comme nts WBC (test code = 1001) 7.9 K/UL RBC (test code = 1002) 4.64 M/UL HEMOGLOBIN (test code = 1003) 13.5 G/DL HEMATOCRIT (test code = 1004) 41.4 % MCV (test code = 1005) 89.2 fL MCH (test code = 1006) 29.1 PG MCHC (test code = 1007) 32.6 G/DL RDW (test code = 1038) 13.4 % NEUTROPHILS (test code = 1008) 64 % LYMPHOCYTES (test code = 1010) 23 % MONOCYTES (test code = 1011) 10 % EOSINOPHILS (test code = 1012) 2 % BASOPHILS (test code = 1013) % PLATELET COUNT (test code = 1015) 360 K/UL CBC W/AUTO [id number] 00:00:00* Test Item Value Reference Range Interpretation Comme nts WBC (test code = 1001) 7.9 K/UL RBC (test code = 1002) 4.64 M/UL HEMOGLOBIN (test code = 1003) 13.5 G/DL HEMATOCRIT (test code = 1004) 41.4 % MCV (test code = 1005) 89.2 fL MCH (test code = 1006) 29.1 PG MCHC (test code = 1007) 32.6 G/DL RDW (test code = 1038) 13.4 % NEUTROPHILS (test code = 1008) 64 % LYMPHOCYTES (test code = 1010) 23 % MONOCYTES (test code = 1011) 10 % EOSINOPHILS (test code = 1012) 2 % BASOPHILS (test code = 1013) % PLATELET COUNT (test code = 1015) 360 K/UL CBC W/AUTO [id number] 00:00:00* Test Item Value Reference Range Interpretation Comme nts WBC (test code = 1001) 7.9 K/UL RBC (test code = 1002) 4.64 M/UL HEMOGLOBIN (test code = 1003) 13.5 G/DL HEMATOCRIT (test code = 1004) 41.4 % MCV (test code = 1005) 89.2 fL MCH (test code = 1006) 29.1 PG MCHC (test code = 1007) 32.6 G/DL RDW (test code = 1038) 13.4 % NEUTROPHILS (test code = 1008) 64 % LYMPHOCYTES (test code = 1010) 23 % MONOCYTES (test code = 1011) 10 % EOSINOPHILS (test code = 1012) 2 % BASOPHILS (test code = 1013) % PLATELET COUNT (test code = 1015) 360 K/UL HEMOGLOBIN [id number] 00:00:00* Test Item Value Reference Range Interpretation Comme nts HEMOGLOBIN A1c (test code = 19494) 9.5 % HEMOGLOBIN [id number] 00:00:00* Test Item Value Reference Range Interpretation Comme nts HEMOGLOBIN A1c (test code = 08721) 9.5 % HEMOGLOBIN [id number] 00:00:00* Test Item Value Reference Range Interpretation Comme nts HEMOGLOBIN A1c (test code = 78961) 9.5 % THYROID II PROFILE (T3U, T4, T7, TSH)2016-04-13 00:00:00* Test Item Value Reference Range Interpretation Comme nts T3 UPTAKE (test code = 2817) 27.5 % T4 (THYROXINE) (test code = 2819) 8.7 UG/DL CALCULATED T7 (FTI) (test co de = 2820) 2.39 TSH (test code = 2821) 2.3 UIU/ML THYROID II PROFILE (T3U, T4, T7, TSH)2016-04-13 00:00:00* Test Item Value Reference Range Interpretation Comme nts T3 UPTAKE (test code = 2817) 27.5 % T4 (THYROXINE) (test code = 2819) 8.7 UG/DL CALCULATED T7 (FTI) (test co de = 2820) 2.39 TSH (test code = 2821) 2.3 UIU/ML COMPREHENSIVE METABOLIC [id number] 00:00:00* Test Item Value Reference Range Interpretation Comme nts GLUCOSE (test code = 2217) 252 MG/DL BUN (test code = 2208) 13 MG/DL CREATININE (test code = 2214) 0.57 MG/DL eGFR AMER. (test cod e = 69063) 131 ML/MIN/1.73 eGFR NON- AMER. (test code = 09493) 113 ML/MIN/1.73 CALC BUN/CREAT (test code = 2235) 23 RATIO SODIUM (test code = 2231) 137 MEQ/L POTASSIUM (test code = 2228) 5.1 MEQ/L CHLORIDE (test code = 2215) 97 MEQ/L CARBON DIOXIDE (test code = 2206) 23 MEQ/L CALCIUM (test code = 2209) 9.1 MG/DL PROTEIN, TOTAL (test code = 2229) 7.2 G/DL ALBUMIN (test code = 2201) 3.9 G/DL CALC GLOBULIN (test code = 2240) 3.3 G/DL CALC A/G RATIO (test code = 2234) 1.2 RATIO BILIRUBIN, TOTAL (test code = 2207) 0.3 MG/DL ALKALINE PHOSPHATASE (test code = 2204) 64 U/L AST (test code = 2218) 15 U/L ALT (test code = 2219) 16 U/L COMPREHENSIVE METABOLIC [id number] 00:00:00* Test Item Value Reference Range Interpretation Comme nts GLUCOSE (test code = 2217) 252 MG/DL BUN (test code = 2208) 13 MG/DL CREATININE (test code = 2214) 0.57 MG/DL eGFR AMER. (test cod e = 36347) 131 ML/MIN/1.73 eGFR NON- AMER. (test code = 68672) 113 ML/MIN/1.73 CALC BUN/CREAT (test code = 2235) 23 RATIO SODIUM (test code = 2231) 137 MEQ/L POTASSIUM (test code = 2228) 5.1 MEQ/L CHLORIDE (test code = 2215) 97 MEQ/L CARBON DIOXIDE (test code = 2206) 23 MEQ/L CALCIUM (test code = 2209) 9.1 MG/DL PROTEIN, TOTAL (test code = 2229) 7.2 G/DL ALBUMIN (test code = 2201) 3.9 G/DL CALC GLOBULIN (test code = 2240) 3.3 G/DL CALC A/G RATIO (test code = 2234) 1.2 RATIO BILIRUBIN, TOTAL (test code = 2207) 0.3 MG/DL ALKALINE PHOSPHATASE (test code = 2204) 64 U/L AST (test code = 2218) 15 U/L ALT (test code = 2219) 16 U/L LIPID [id number] 00:00:00* Test Item Value Reference Range Interpretation Comme nts CHOLESTEROL (test code = 2210) 167 MG/DL TRIGLYCERIDES (test code = 2232) 118 MG/DL HDL CHOLESTEROL (test code = 2220) 57 MG/DL CALC LDL CHOL (test code = 2237) 86 MG/DL RISK RATIO LDL/HDL (test cod e = 2238) 1.52 RATIO LIPID [id number] 00:00:00* Test Item Value Reference Range Interpretation Comme nts CHOLESTEROL (test code = 2210) 167 MG/DL TRIGLYCERIDES (test code = 2232) 118 MG/DL HDL CHOLESTEROL (test code = 2220) 57 MG/DL CALC LDL CHOL (test code = 2237) 86 MG/DL RISK RATIO LDL/HDL (test cod e = 2238) 1.52 RATIO CBC W/AUTO [id number] 00:00:00* Test Item Value Reference Range Interpretation Comme nts WBC (test code = 1001) 7.9 K/UL RBC (test code = 1002) 4.64 M/UL HEMOGLOBIN (test code = 1003) 13.5 G/DL HEMATOCRIT (test code = 1004) 41.4 % MCV (test code = 1005) 89.2 fL MCH (test code = 1006) 29.1 PG MCHC (test code = 1007) 32.6 G/DL RDW (test code = 1038) 13.4 % NEUTROPHILS (test code = 1008) 64 % LYMPHOCYTES (test code = 1010) 23 % MONOCYTES (test code = 1011) 10 % EOSINOPHILS (test code = 1012) 2 % BASOPHILS (test code = 1013) % PLATELET COUNT (test code = 1015) 360 K/UL CBC W/AUTO [id number] 00:00:00* Test Item Value Reference Range Interpretation Comme nts WBC (test code = 1001) 7.9 K/UL RBC (test code = 1002) 4.64 M/UL HEMOGLOBIN (test code = 1003) 13.5 G/DL HEMATOCRIT (test code = 1004) 41.4 % MCV (test code = 1005) 89.2 fL MCH (test code = 1006) 29.1 PG MCHC (test code = 1007) 32.6 G/DL RDW (test code = 1038) 13.4 % NEUTROPHILS (test code = 1008) 64 % LYMPHOCYTES (test code = 1010) 23 % MONOCYTES (test code = 1011) 10 % EOSINOPHILS (test code = 1012) 2 % BASOPHILS (test code = 1013) % PLATELET COUNT (test code = 1015) 360 K/UL CBC W/AUTO [id number] 00:00:00* Test Item Value Reference Range Interpretation Comme nts WBC (test code = 1001) 7.9 K/UL RBC (test code = 1002) 4.64 M/UL HEMOGLOBIN (test code = 1003) 13.5 G/DL HEMATOCRIT (test code = 1004) 41.4 % MCV (test code = 1005) 89.2 fL MCH (test code = 1006) 29.1 PG MCHC (test code = 1007) 32.6 G/DL RDW (test code = 1038) 13.4 % NEUTROPHILS (test code = 1008) 64 % LYMPHOCYTES (test code = 1010) 23 % MONOCYTES (test code = 1011) 10 % EOSINOPHILS (test code = 1012) 2 % BASOPHILS (test code = 1013) % PLATELET COUNT (test code = 1015) 360 K/UL HEMOGLOBIN [id number] 00:00:00* Test Item Value Reference Range Interpretation Comme nts HEMOGLOBIN A1c (test code = 24780) 9.5 % HEMOGLOBIN [id number] 00:00:00* Test Item Value Reference Range Interpretation Comme nts HEMOGLOBIN A1c (test code = 59812) 9.5 % HEMOGLOBIN [id number] 00:00:00* Test Item Value Reference Range Interpretation Comme nts HEMOGLOBIN A1c (test code = 65429) 9.5 % THYROID II PROFILE (T3U, T4, T7, TSH)2016-04-13 00:00:00* Test Item Value Reference Range Interpretation Comme nts T3 UPTAKE (test code = 2817) 27.5 % T4 (THYROXINE) (test code = 2819) 8.7 UG/DL CALCULATED T7 (FTI) (test co de = 2820) 2.39 TSH (test code = 2821) 2.3 UIU/ML THYROID II PROFILE (T3U, T4, T7, TSH)2016-04-13 00:00:00* Test Item Value Reference Range Interpretation Comme nts T3 UPTAKE (test code = 2817) 27.5 % T4 (THYROXINE) (test code = 2819) 8.7 UG/DL CALCULATED T7 (FTI) (test co de = 2820) 2.39 TSH (test code = 2821) 2.3 UIU/ML COMPREHENSIVE METABOLIC [id number] 00:00:00* Test Item Value Reference Range Interpretation Comme nts GLUCOSE (test code = 2217) 252 MG/DL BUN (test code = 2208) 13 MG/DL CREATININE (test code = 2214) 0.57 MG/DL eGFR AMER. (test cod e = 46242) 131 ML/MIN/1.73 eGFR NON- AMER. (test code = 56310) 113 ML/MIN/1.73 CALC BUN/CREAT (test code = 2235) 23 RATIO SODIUM (test code = 2231) 137 MEQ/L POTASSIUM (test code = 2228) 5.1 MEQ/L CHLORIDE (test code = 2215) 97 MEQ/L CARBON DIOXIDE (test code = 2206) 23 MEQ/L CALCIUM (test code = 2209) 9.1 MG/DL PROTEIN, TOTAL (test code = 2229) 7.2 G/DL ALBUMIN (test code = 2201) 3.9 G/DL CALC GLOBULIN (test code = 2240) 3.3 G/DL CALC A/G RATIO (test code = 2234) 1.2 RATIO BILIRUBIN, TOTAL (test code = 2207) 0.3 MG/DL ALKALINE PHOSPHATASE (test code = 2204) 64 U/L AST (test code = 2218) 15 U/L ALT (test code = 2219) 16 U/L LIPID [id number] 00:00:00* Test Item Value Reference Range Interpretation Comme nts CHOLESTEROL (test code = 2210) 167 MG/DL TRIGLYCERIDES (test code = 2232) 118 MG/DL HDL CHOLESTEROL (test code = 2220) 57 MG/DL CALC LDL CHOL (test code = 2237) 86 MG/DL RISK RATIO LDL/HDL (test cod e = 2238) 1.52 RATIO CBC W/AUTO [id number] 00:00:00* Test Item Value Reference Range Interpretation Comme nts WBC (test code = 1001) 7.9 K/UL RBC (test code = 1002) 4.64 M/UL HEMOGLOBIN (test code = 1003) 13.5 G/DL HEMATOCRIT (test code = 1004) 41.4 % MCV (test code = 1005) 89.2 fL MCH (test code = 1006) 29.1 PG MCHC (test code = 1007) 32.6 G/DL RDW (test code = 1038) 13.4 % NEUTROPHILS (test code = 1008) 64 % LYMPHOCYTES (test code = 1010) 23 % MONOCYTES (test code = 1011) 10 % EOSINOPHILS (test code = 1012) 2 % BASOPHILS (test code = 1013) % PLATELET COUNT (test code = 1015) 360 K/UL CBC W/AUTO [id number] 00:00:00* Test Item Value Reference Range Interpretation Comme nts WBC (test code = 1001) 7.9 K/UL RBC (test code = 1002) 4.64 M/UL HEMOGLOBIN (test code = 1003) 13.5 G/DL HEMATOCRIT (test code = 1004) 41.4 % MCV (test code = 1005) 89.2 fL MCH (test code = 1006) 29.1 PG MCHC (test code = 1007) 32.6 G/DL RDW (test code = 1038) 13.4 % NEUTROPHILS (test code = 1008) 64 % LYMPHOCYTES (test code = 1010) 23 % MONOCYTES (test code = 1011) 10 % EOSINOPHILS (test code = 1012) 2 % BASOPHILS (test code = 1013) % PLATELET COUNT (test code = 1015) 360 K/UL HEMOGLOBIN [id number] 00:00:00* Test Item Value Reference Range Interpretation Comme nts HEMOGLOBIN A1c (test code = 19244) 9.5 % HEMOGLOBIN [id number] 00:00:00* Test Item Value Reference Range Interpretation Comme nts HEMOGLOBIN A1c (test code = 62684) 9.5 % THYROID II PROFILE (T3U, T4, T7, TSH)2016-04-13 00:00:00* Test Item Value Reference Range Interpretation Comme nts T3 UPTAKE (test code = 2817) 27.5 % T4 (THYROXINE) (test code = 2819) 8.7 UG/DL CALCULATED T7 (FTI) (test co de = 2820) 2.39 TSH (test code = 2821) 2.3 UIU/ML COMPREHENSIVE METABOLIC [id number] 00:00:00* Test Item Value Reference Range Interpretation Comme nts GLUCOSE (test code = 2217) 252 MG/DL BUN (test code = 2208) 13 MG/DL CREATININE (test code = 2214) 0.57 MG/DL eGFR AMER. (test cod e = 51932) 131 ML/MIN/1.73 eGFR NON- AMER. (test code = 31791) 113 ML/MIN/1.73 CALC BUN/CREAT (test code = 2235) 23 RATIO SODIUM (test code = 2231) 137 MEQ/L POTASSIUM (test code = 2228) 5.1 MEQ/L CHLORIDE (test code = 2215) 97 MEQ/L CARBON DIOXIDE (test code = 2206) 23 MEQ/L CALCIUM (test code = 2209) 9.1 MG/DL PROTEIN, TOTAL (test code = 2229) 7.2 G/DL ALBUMIN (test code = 2201) 3.9 G/DL CALC GLOBULIN (test code = 2240) 3.3 G/DL CALC A/G RATIO (test code = 2234) 1.2 RATIO BILIRUBIN, TOTAL (test code = 2207) 0.3 MG/DL ALKALINE PHOSPHATASE (test code = 2204) 64 U/L AST (test code = 2218) 15 U/L ALT (test code = 2219) 16 U/L COMPREHENSIVE METABOLIC [id number] 00:00:00* Test Item Value Reference Range Interpretation Comme nts GLUCOSE (test code = 2217) 252 MG/DL BUN (test code = 2208) 13 MG/DL CREATININE (test code = 2214) 0.57 MG/DL eGFR AMER. (test cod e = 26292) 131 ML/MIN/1.73 eGFR NON- AMER. (test code = 79319) 113 ML/MIN/1.73 CALC BUN/CREAT (test code = 2235) 23 RATIO SODIUM (test code = 2231) 137 MEQ/L POTASSIUM (test code = 2228) 5.1 MEQ/L CHLORIDE (test code = 2215) 97 MEQ/L CARBON DIOXIDE (test code = 2206) 23 MEQ/L CALCIUM (test code = 2209) 9.1 MG/DL PROTEIN, TOTAL (test code = 2229) 7.2 G/DL ALBUMIN (test code = 2201) 3.9 G/DL CALC GLOBULIN (test code = 2240) 3.3 G/DL CALC A/G RATIO (test code = 2234) 1.2 RATIO BILIRUBIN, TOTAL (test code = 2207) 0.3 MG/DL ALKALINE PHOSPHATASE (test code = 2204) 64 U/L AST (test code = 2218) 15 U/L ALT (test code = 2219) 16 U/L LIPID [id number] 00:00:00* Test Item Value Reference Range Interpretation Comme nts CHOLESTEROL (test code = 2210) 167 MG/DL TRIGLYCERIDES (test code = 2232) 118 MG/DL HDL CHOLESTEROL (test code = 2220) 57 MG/DL CALC LDL CHOL (test code = 2237) 86 MG/DL RISK RATIO LDL/HDL (test cod e = 2238) 1.52 RATIO LIPID [id number] 00:00:00* Test Item Value Reference Range Interpretation Comme nts CHOLESTEROL (test code = 2210) 167 MG/DL TRIGLYCERIDES (test code = 2232) 118 MG/DL HDL CHOLESTEROL (test code = 2220) 57 MG/DL CALC LDL CHOL (test code = 2237) 86 MG/DL RISK RATIO LDL/HDL (test cod e = 2238) 1.52 RATIO CBC W/AUTO [id number] 00:00:00* Test Item Value Reference Range Interpretation Comme nts WBC (test code = 1001) 7.9 K/UL RBC (test code = 1002) 4.64 M/UL HEMOGLOBIN (test code = 1003) 13.5 G/DL HEMATOCRIT (test code = 1004) 41.4 % MCV (test code = 1005) 89.2 fL MCH (test code = 1006) 29.1 PG MCHC (test code = 1007) 32.6 G/DL RDW (test code = 1038) 13.4 % NEUTROPHILS (test code = 1008) 64 % LYMPHOCYTES (test code = 1010) 23 % MONOCYTES (test code = 1011) 10 % EOSINOPHILS (test code = 1012) 2 % BASOPHILS (test code = 1013) % PLATELET COUNT (test code = 1015) 360 K/UL CBC W/AUTO [id number] 00:00:00* Test Item Value Reference Range Interpretation Comme nts WBC (test code = 1001) 7.9 K/UL RBC (test code = 1002) 4.64 M/UL HEMOGLOBIN (test code = 1003) 13.5 G/DL HEMATOCRIT (test code = 1004) 41.4 % MCV (test code = 1005) 89.2 fL MCH (test code = 1006) 29.1 PG MCHC (test code = 1007) 32.6 G/DL RDW (test code = 1038) 13.4 % NEUTROPHILS (test code = 1008) 64 % LYMPHOCYTES (test code = 1010) 23 % MONOCYTES (test code = 1011) 10 % EOSINOPHILS (test code = 1012) 2 % BASOPHILS (test code = 1013) % PLATELET COUNT (test code = 1015) 360 K/UL CBC W/AUTO [id number] 00:00:00* Test Item Value Reference Range Interpretation Comme nts WBC (test code = 1001) 7.9 K/UL RBC (test code = 1002) 4.64 M/UL HEMOGLOBIN (test code = 1003) 13.5 G/DL HEMATOCRIT (test code = 1004) 41.4 % MCV (test code = 1005) 89.2 fL MCH (test code = 1006) 29.1 PG MCHC (test code = 1007) 32.6 G/DL RDW (test code = 1038) 13.4 % NEUTROPHILS (test code = 1008) 64 % LYMPHOCYTES (test code = 1010) 23 % MONOCYTES (test code = 1011) 10 % EOSINOPHILS (test code = 1012) 2 % BASOPHILS (test code = 1013) % PLATELET COUNT (test code = 1015) 360 K/UL HEMOGLOBIN [id number] 00:00:00* Test Item Value Reference Range Interpretation Comme nts HEMOGLOBIN A1c (test code = 26471) 9.5 % HEMOGLOBIN [id number] 00:00:00* Test Item Value Reference Range Interpretation Comme nts HEMOGLOBIN A1c (test code = 36247) 9.5 % HEMOGLOBIN [id number] 00:00:00* Test Item Value Reference Range Interpretation Comme nts HEMOGLOBIN A1c (test code = 27634) 9.5 % THYROID II PROFILE (T3U, T4, T7, TSH)2016-04-13 00:00:00* Test Item Value Reference Range Interpretation Comme nts T3 UPTAKE (test code = 2817) 27.5 % T4 (THYROXINE) (test code = 2819) 8.7 UG/DL CALCULATED T7 (FTI) (test co de = 2820) 2.39 TSH (test code = 2821) 2.3 UIU/ML THYROID II PROFILE (T3U, T4, T7, TSH)2016-04-13 00:00:00* Test Item Value Reference Range Interpretation Comme nts T3 UPTAKE (test code = 2817) 27.5 % T4 (THYROXINE) (test code = 2819) 8.7 UG/DL CALCULATED T7 (FTI) (test co de = 2820) 2.39 TSH (test code = 2821) 2.3 UIU/ML COMPREHENSIVE METABOLIC [id number] 00:00:00* Test Item Value Reference Range Interpretation Comme nts GLUCOSE (test code = 2217) 252 MG/DL BUN (test code = 2208) 13 MG/DL CREATININE (test code = 2214) 0.57 MG/DL eGFR AMER. (test cod e = 29039) 131 ML/MIN/1.73 eGFR NON- AMER. (test code = 53963) 113 ML/MIN/1.73 CALC BUN/CREAT (test code = 2235) 23 RATIO SODIUM (test code = 2231) 137 MEQ/L POTASSIUM (test code = 2228) 5.1 MEQ/L CHLORIDE (test code = 2215) 97 MEQ/L CARBON DIOXIDE (test code = 2206) 23 MEQ/L CALCIUM (test code = 2209) 9.1 MG/DL PROTEIN, TOTAL (test code = 2229) 7.2 G/DL ALBUMIN (test code = 2201) 3.9 G/DL CALC GLOBULIN (test code = 2240) 3.3 G/DL CALC A/G RATIO (test code = 2234) 1.2 RATIO BILIRUBIN, TOTAL (test code = 2207) 0.3 MG/DL ALKALINE PHOSPHATASE (test code = 2204) 64 U/L AST (test code = 2218) 15 U/L ALT (test code = 2219) 16 U/L COMPREHENSIVE METABOLIC [id number] 00:00:00* Test Item Value Reference Range Interpretation Comme nts GLUCOSE (test code = 2217) 252 MG/DL BUN (test code = 2208) 13 MG/DL CREATININE (test code = 2214) 0.57 MG/DL eGFR AMER. (test cod e = 50583) 131 ML/MIN/1.73 eGFR NON- AMER. (test code = 94844) 113 ML/MIN/1.73 CALC BUN/CREAT (test code = 2235) 23 RATIO SODIUM (test code = 2231) 137 MEQ/L POTASSIUM (test code = 2228) 5.1 MEQ/L CHLORIDE (test code = 2215) 97 MEQ/L CARBON DIOXIDE (test code = 2206) 23 MEQ/L CALCIUM (test code = 2209) 9.1 MG/DL PROTEIN, TOTAL (test code = 2229) 7.2 G/DL ALBUMIN (test code = 2201) 3.9 G/DL CALC GLOBULIN (test code = 2240) 3.3 G/DL CALC A/G RATIO (test code = 2234) 1.2 RATIO BILIRUBIN, TOTAL (test code = 2207) 0.3 MG/DL ALKALINE PHOSPHATASE (test code = 2204) 64 U/L AST (test code = 2218) 15 U/L ALT (test code = 2219) 16 U/L THYROID II PROFILE (T3U, T4, T7, TSH)2015-12-16 00:00:00* Test Item Value Reference Range Interpretation Comme nts T3 UPTAKE (test code = 2817) 27.2 % T4 (THYROXINE) (test code = 2819) 8.9 UG/DL CALCULATED T7 (FTI) (test co de = 2820) 2.42 TSH (test code = 2821) 1.3 UIU/ML THYROID II PROFILE (T3U, T4, T7, TSH)2015-12-16 00:00:00* Test Item Value Reference Range Interpretation Comme nts T3 UPTAKE (test code = 2817) 27.2 % T4 (THYROXINE) (test code = 2819) 8.9 UG/DL CALCULATED T7 (FTI) (test co de = 2820) 2.42 TSH (test code = 2821) 1.3 UIU/ML LIPID [id number] 00:00:00* Test Item Value Reference Range Interpretation Comme nts CHOLESTEROL (test code = 2210) 167 MG/DL TRIGLYCERIDES (test code = 2232) 113 MG/DL HDL CHOLESTEROL (test code = 2220) 53 MG/DL CALCULATED LDL CHOL (test co de = 2237) 91 MG/DL RISK RATIO LDL/HDL (test cod e = 2238) 1.72 RATIO LIPID [id number] 00:00:00* Test Item Value Reference Range Interpretation Comme nts CHOLESTEROL (test code = 2210) 167 MG/DL TRIGLYCERIDES (test code = 2232) 113 MG/DL HDL CHOLESTEROL (test code = 2220) 53 MG/DL CALCULATED LDL CHOL (test co de = 2237) 91 MG/DL RISK RATIO LDL/HDL (test cod e = 2238) 1.72 RATIO COMPREHENSIVE METABOLIC [id number] 00:00:00* Test Item Value Reference Range Interpretation Comme nts GLUCOSE (test code = 2217) 195 MG/DL BUN (test code = 2208) 14 MG/DL CREATININE (test code = 2214) 0.55 MG/DL eGFR AMER. (test cod e = 49235) 132 ML/MIN/1.73 eGFR NON- AMER. (test code = 81639) 114 ML/MIN/1.73 CALCULATED BUN/CREAT (test code = 2235) 25 RATIO SODIUM (test code = 2231) 137 MEQ/L POTASSIUM (test code = 2228) 4.5 MEQ/L CHLORIDE (test code = 2215) 100 MEQ/L CARBON DIOXIDE (test code = 2206) 28 MEQ/L CALCIUM (test code = 2209) 9.6 MG/DL PROTEIN, TOTAL (test code = 2229) 7.4 G/DL ALBUMIN (test code = 2201) 4.0 G/DL CALCULATED GLOBULIN (test code = 2240) 3.4 G/DL CALCULATED A/G RATIO (test code = 2234) 1.2 RATIO BILIRUBIN, TOTAL (test code = 2207) 0.8 MG/DL ALKALINE PHOSPHATASE (test code = 2204) 57 U/L SGOT (AST) (test code = 2218) 19 U/L SGPT (ALT) (test code = 2219) 21 U/L COMPREHENSIVE METABOLIC [id number] 00:00:00* Test Item Value Reference Range Interpretation Comme nts GLUCOSE (test code = 2217) 195 MG/DL BUN (test code = 2208) 14 MG/DL CREATININE (test code = 2214) 0.55 MG/DL eGFR AMER. (test cod e = 66189) 132 ML/MIN/1.73 eGFR NON- AMER. (test code = 61392) 114 ML/MIN/1.73 CALCULATED BUN/CREAT (test code = 2235) 25 RATIO SODIUM (test code = 2231) 137 MEQ/L POTASSIUM (test code = 2228) 4.5 MEQ/L CHLORIDE (test code = 2215) 100 MEQ/L CARBON DIOXIDE (test code = 2206) 28 MEQ/L CALCIUM (test code = 2209) 9.6 MG/DL PROTEIN, TOTAL (test code = 2229) 7.4 G/DL ALBUMIN (test code = 2201) 4.0 G/DL CALCULATED GLOBULIN (test code = 2240) 3.4 G/DL CALCULATED A/G RATIO (test code = 2234) 1.2 RATIO BILIRUBIN, TOTAL (test code = 2207) 0.8 MG/DL ALKALINE PHOSPHATASE (test code = 2204) 57 U/L SGOT (AST) (test code = 2218) 19 U/L SGPT (ALT) (test code = 2219) 21 U/L HEMOGLOBIN [id number] 00:00:00* Test Item Value Reference Range Interpretation Comme nts HEMOGLOBIN A1c (test code = 23875) 9.9 % HEMOGLOBIN [id number] 00:00:00* Test Item Value Reference Range Interpretation Comme nts HEMOGLOBIN A1c (test code = 56038) 9.9 % HEMOGLOBIN [id number] 00:00:00* Test Item Value Reference Range Interpretation Comme nts HEMOGLOBIN A1c (test code = 18459) 9.9 % CBC W/AUTO [id number] 00:00:00* Test Item Value Reference Range Interpretation Comme nts WBC (test code = 1001) 7.1 K/UL RBC (test code = 1002) 4.68 M/UL HEMOGLOBIN (test code = 1003) 13.8 G/DL HEMATOCRIT (test code = 1004) 41.7 % MCV (test code = 1005) 89.1 fL MCH (test code = 1006) 29.5 PG MCHC (test code = 1007) 33.1 G/DL RDW (test code = 1038) 13.5 % NEUTROPHILS (test code = 1008) 60 % LYMPHOCYTES (test code = 1010) 30 % MONOCYTES (test code = 1011) 8 % EOSINOPHILS (test code = 1012) 2 % BASOPHILS (test code = 1013) 1 % PLATELET COUNT (test code = 1015) 352 K/UL CBC W/AUTO [id number] 00:00:00* Test Item Value Reference Range Interpretation Comme nts WBC (test code = 1001) 7.1 K/UL RBC (test code = 1002) 4.68 M/UL HEMOGLOBIN (test code = 1003) 13.8 G/DL HEMATOCRIT (test code = 1004) 41.7 % MCV (test code = 1005) 89.1 fL MCH (test code = 1006) 29.5 PG MCHC (test code = 1007) 33.1 G/DL RDW (test code = 1038) 13.5 % NEUTROPHILS (test code = 1008) 60 % LYMPHOCYTES (test code = 1010) 30 % MONOCYTES (test code = 1011) 8 % EOSINOPHILS (test code = 1012) 2 % BASOPHILS (test code = 1013) 1 % PLATELET COUNT (test code = 1015) 352 K/UL CBC W/AUTO [id number] 00:00:00* Test Item Value Reference Range Interpretation Comme nts WBC (test code = 1001) 7.1 K/UL RBC (test code = 1002) 4.68 M/UL HEMOGLOBIN (test code = 1003) 13.8 G/DL HEMATOCRIT (test code = 1004) 41.7 % MCV (test code = 1005) 89.1 fL MCH (test code = 1006) 29.5 PG MCHC (test code = 1007) 33.1 G/DL RDW (test code = 1038) 13.5 % NEUTROPHILS (test code = 1008) 60 % LYMPHOCYTES (test code = 1010) 30 % MONOCYTES (test code = 1011) 8 % EOSINOPHILS (test code = 1012) 2 % BASOPHILS (test code = 1013) 1 % PLATELET COUNT (test code = 1015) 352 K/UL THYROID II PROFILE (T3U, T4, T7, TSH)[id number] 00:00:00* Test Item Value Reference Range Interpretation Comme nts T3 UPTAKE (test code = 2817) 27.2 % T4 (THYROXINE) (test code = 2819) 8.9 UG/DL CALCULATED T7 (FTI) (test co de = 2820) 2.42 TSH (test code = 2821) 1.3 UIU/ML THYROID II PROFILE (T3U, T4, T7, TSH)[id number] 00:00:00* Test Item Value Reference Range Interpretation Comme nts T3 UPTAKE (test code = 2817) 27.2 % T4 (THYROXINE) (test code = 2819) 8.9 UG/DL CALCULATED T7 (FTI) (test co de = 2820) 2.42 TSH (test code = 2821) 1.3 UIU/ML LIPID [id number] 00:00:00* Test Item Value Reference Range Interpretation Comme nts CHOLESTEROL (test code = 2210) 167 MG/DL TRIGLYCERIDES (test code = 2232) 113 MG/DL HDL CHOLESTEROL (test code = 2220) 53 MG/DL CALCULATED LDL CHOL (test co de = 2237) 91 MG/DL RISK RATIO LDL/HDL (test cod e = 2238) 1.72 RATIO LIPID [id number] 00:00:00* Test Item Value Reference Range Interpretation Comme nts CHOLESTEROL (test code = 2210) 167 MG/DL TRIGLYCERIDES (test code = 2232) 113 MG/DL HDL CHOLESTEROL (test code = 2220) 53 MG/DL CALCULATED LDL CHOL (test co de = 2237) 91 MG/DL RISK RATIO LDL/HDL (test cod e = 2238) 1.72 RATIO COMPREHENSIVE METABOLIC [id number] 00:00:00* Test Item Value Reference Range Interpretation Comme nts GLUCOSE (test code = 2217) 195 MG/DL BUN (test code = 2208) 14 MG/DL CREATININE (test code = 2214) 0.55 MG/DL eGFR AMER. (test cod e = 80178) 132 ML/MIN/1.73 eGFR NON- AMER. (test code = 01546) 114 ML/MIN/1.73 CALCULATED BUN/CREAT (test code = 2235) 25 RATIO SODIUM (test code = 2231) 137 MEQ/L POTASSIUM (test code = 2228) 4.5 MEQ/L CHLORIDE (test code = 2215) 100 MEQ/L CARBON DIOXIDE (test code = 2206) 28 MEQ/L CALCIUM (test code = 2209) 9.6 MG/DL PROTEIN, TOTAL (test code = 2229) 7.4 G/DL ALBUMIN (test code = 2201) 4.0 G/DL CALCULATED GLOBULIN (test code = 2240) 3.4 G/DL CALCULATED A/G RATIO (test code = 2234) 1.2 RATIO BILIRUBIN, TOTAL (test code = 2207) 0.8 MG/DL ALKALINE PHOSPHATASE (test code = 2204) 57 U/L SGOT (AST) (test code = 2218) 19 U/L SGPT (ALT) (test code = 2219) 21 U/L COMPREHENSIVE METABOLIC [id number] 00:00:00* Test Item Value Reference Range Interpretation Comme nts GLUCOSE (test code = 2217) 195 MG/DL BUN (test code = 2208) 14 MG/DL CREATININE (test code = 2214) 0.55 MG/DL eGFR AMER. (test cod e = 18905) 132 ML/MIN/1.73 eGFR NON- AMER. (test code = 19182) 114 ML/MIN/1.73 CALCULATED BUN/CREAT (test code = 2235) 25 RATIO SODIUM (test code = 2231) 137 MEQ/L POTASSIUM (test code = 2228) 4.5 MEQ/L CHLORIDE (test code = 2215) 100 MEQ/L CARBON DIOXIDE (test code = 2206) 28 MEQ/L CALCIUM (test code = 2209) 9.6 MG/DL PROTEIN, TOTAL (test code = 2229) 7.4 G/DL ALBUMIN (test code = 2201) 4.0 G/DL CALCULATED GLOBULIN (test code = 2240) 3.4 G/DL CALCULATED A/G RATIO (test code = 2234) 1.2 RATIO BILIRUBIN, TOTAL (test code = 2207) 0.8 MG/DL ALKALINE PHOSPHATASE (test code = 220) 57 U/L SGOT (AST) (test code = 2217) 19 U/L SGPT (ALT) (test code = 2218) 21 U/L HEMOGLOBIN [id number] 00:00:00* Test Item Value Reference Range Interpretation Comme nts HEMOGLOBIN A1c (test code = 19778) 9.9 % HEMOGLOBIN [id number] 00:00:00* Test Item Value Reference Range Interpretation Comme nts HEMOGLOBIN A1c (test code = 00613) 9.9 % HEMOGLOBIN [id number] 00:00:00* Test Item Value Reference Range Interpretation Comme nts HEMOGLOBIN A1c (test code = 91227) 9.9 % CBC W/AUTO [id number] 00:00:00* Test Item Value Reference Range Interpretation Comme nts WBC (test code = 1001) 7.1 K/UL RBC (test code = 1002) 4.68 M/UL HEMOGLOBIN (test code = 1003) 13.8 G/DL HEMATOCRIT (test code = 1004) 41.7 % MCV (test code = 1005) 89.1 fL MCH (test code = 1006) 29.5 PG MCHC (test code = 1007) 33.1 G/DL RDW (test code = 1038) 13.5 % NEUTROPHILS (test code = 1008) 60 % LYMPHOCYTES (test code = 1010) 30 % MONOCYTES (test code = 1011) 8 % EOSINOPHILS (test code = 1012) 2 % BASOPHILS (test code = 1013) 1 % PLATELET COUNT (test code = 1015) 352 K/UL CBC W/AUTO [id number] 00:00:00* Test Item Value Reference Range Interpretation Comme nts WBC (test code = 1001) 7.1 K/UL RBC (test code = 1002) 4.68 M/UL HEMOGLOBIN (test code = 1003) 13.8 G/DL HEMATOCRIT (test code = 1004) 41.7 % MCV (test code = 1005) 89.1 fL MCH (test code = 1006) 29.5 PG MCHC (test code = 1007) 33.1 G/DL RDW (test code = 1038) 13.5 % NEUTROPHILS (test code = 1008) 60 % LYMPHOCYTES (test code = 1010) 30 % MONOCYTES (test code = 1011) 8 % EOSINOPHILS (test code = 1012) 2 % BASOPHILS (test code = 1013) 1 % PLATELET COUNT (test code = 1015) 352 K/UL THYROID II PROFILE (T3U, T4, T7, TSH)2015-12-16 00:00:00* Test Item Value Reference Range Interpretation Comme nts T3 UPTAKE (test code = 2817) 27.2 % T4 (THYROXINE) (test code = 2819) 8.9 UG/DL CALCULATED T7 (FTI) (test co de = 2820) 2.42 TSH (test code = 2821) 1.3 UIU/ML LIPID [id number] 00:00:00* Test Item Value Reference Range Interpretation Comme nts CHOLESTEROL (test code = 2210) 167 MG/DL TRIGLYCERIDES (test code = 2232) 113 MG/DL HDL CHOLESTEROL (test code = 2220) 53 MG/DL CALCULATED LDL CHOL (test co de = 2237) 91 MG/DL RISK RATIO LDL/HDL (test cod e = 2238) 1.72 RATIO COMPREHENSIVE METABOLIC [id number] 00:00:00* Test Item Value Reference Range Interpretation Comme nts GLUCOSE (test code = 2217) 195 MG/DL BUN (test code = 2208) 14 MG/DL CREATININE (test code = 2214) 0.55 MG/DL eGFR AMER. (test cod e = 76893) 132 ML/MIN/1.73 eGFR NON- AMER. (test code = 86769) 114 ML/MIN/1.73 CALCULATED BUN/CREAT (test code = 2235) 25 RATIO SODIUM (test code = 2231) 137 MEQ/L POTASSIUM (test code = 2228) 4.5 MEQ/L CHLORIDE (test code = 2215) 100 MEQ/L CARBON DIOXIDE (test code = 2206) 28 MEQ/L CALCIUM (test code = 2209) 9.6 MG/DL PROTEIN, TOTAL (test code = 2229) 7.4 G/DL ALBUMIN (test code = 2201) 4.0 G/DL CALCULATED GLOBULIN (test code = 2240) 3.4 G/DL CALCULATED A/G RATIO (test code = 2234) 1.2 RATIO BILIRUBIN, TOTAL (test code = 2207) 0.8 MG/DL ALKALINE PHOSPHATASE (test code = 220) 57 U/L SGOT (AST) (test code = 2218) 19 U/L SGPT (ALT) (test code = 2218) 21 U/L HEMOGLOBIN [id number] 00:00:00* Test Item Value Reference Range Interpretation Comme nts HEMOGLOBIN A1c (test code = 29124) 9.9 % HEMOGLOBIN [id number] 00:00:00* Test Item Value Reference Range Interpretation Comme nts HEMOGLOBIN A1c (test code = 58114) 9.9 % CBC W/AUTO [id number] 00:00:00* Test Item Value Reference Range Interpretation Comme nts WBC (test code = 1001) 7.1 K/UL RBC (test code = 1002) 4.68 M/UL HEMOGLOBIN (test code = 1003) 13.8 G/DL HEMATOCRIT (test code = 1004) 41.7 % MCV (test code = 1005) 89.1 fL MCH (test code = 1006) 29.5 PG MCHC (test code = 1007) 33.1 G/DL RDW (test code = 1038) 13.5 % NEUTROPHILS (test code = 1008) 60 % LYMPHOCYTES (test code = 1010) 30 % MONOCYTES (test code = 1011) 8 % EOSINOPHILS (test code = 1012) 2 % BASOPHILS (test code = 1013) 1 % PLATELET COUNT (test code = 1015) 352 K/UL CBC W/AUTO [id number] 00:00:00* Test Item Value Reference Range Interpretation Comme nts WBC (test code = 1001) 7.1 K/UL RBC (test code = 1002) 4.68 M/UL HEMOGLOBIN (test code = 1003) 13.8 G/DL HEMATOCRIT (test code = 1004) 41.7 % MCV (test code = 1005) 89.1 fL MCH (test code = 1006) 29.5 PG MCHC (test code = 1007) 33.1 G/DL RDW (test code = 1038) 13.5 % NEUTROPHILS (test code = 1008) 60 % LYMPHOCYTES (test code = 1010) 30 % MONOCYTES (test code = 1011) 8 % EOSINOPHILS (test code = 1012) 2 % BASOPHILS (test code = 1013) 1 % PLATELET COUNT (test code = 1015) 352 K/UL CBC W/AUTO [id number] 00:00:00* Test Item Value Reference Range Interpretation Comme nts WBC (test code = 1001) 7.1 K/UL RBC (test code = 1002) 4.68 M/UL HEMOGLOBIN (test code = 1003) 13.8 G/DL HEMATOCRIT (test code = 1004) 41.7 % MCV (test code = 1005) 89.1 fL MCH (test code = 1006) 29.5 PG MCHC (test code = 1007) 33.1 G/DL RDW (test code = 1038) 13.5 % NEUTROPHILS (test code = 1008) 60 % LYMPHOCYTES (test code = 1010) 30 % MONOCYTES (test code = 1011) 8 % EOSINOPHILS (test code = 1012) 2 % BASOPHILS (test code = 1013) 1 % PLATELET COUNT (test code = 1015) 352 K/UL THYROID II PROFILE (T3U, T4, T7, TSH)[id number] 00:00:00* Test Item Value Reference Range Interpretation Comme nts T3 UPTAKE (test code = 2817) 27.2 % T4 (THYROXINE) (test code = 2819) 8.9 UG/DL CALCULATED T7 (FTI) (test co de = 2820) 2.42 TSH (test code = 2821) 1.3 UIU/ML THYROID II PROFILE (T3U, T4, T7, TSH)[id number] 00:00:00* Test Item Value Reference Range Interpretation Comme nts T3 UPTAKE (test code = 2817) 27.2 % T4 (THYROXINE) (test code = 2819) 8.9 UG/DL CALCULATED T7 (FTI) (test co de = 2820) 2.42 TSH (test code = 2821) 1.3 UIU/ML LIPID [id number] 00:00:00* Test Item Value Reference Range Interpretation Comme nts CHOLESTEROL (test code = 2210) 167 MG/DL TRIGLYCERIDES (test code = 2232) 113 MG/DL HDL CHOLESTEROL (test code = 2220) 53 MG/DL CALCULATED LDL CHOL (test co de = 2237) 91 MG/DL RISK RATIO LDL/HDL (test cod e = 2238) 1.72 RATIO LIPID [id number] 00:00:00* Test Item Value Reference Range Interpretation Comme nts CHOLESTEROL (test code = 2210) 167 MG/DL TRIGLYCERIDES (test code = 2232) 113 MG/DL HDL CHOLESTEROL (test code = 2220) 53 MG/DL CALCULATED LDL CHOL (test co de = 2237) 91 MG/DL RISK RATIO LDL/HDL (test cod e = 2238) 1.72 RATIO COMPREHENSIVE METABOLIC [id number] 00:00:00* Test Item Value Reference Range Interpretation Comme nts GLUCOSE (test code = 2217) 195 MG/DL BUN (test code = 2208) 14 MG/DL CREATININE (test code = 2214) 0.55 MG/DL eGFR AMER. (test cod e = 17164) 132 ML/MIN/1.73 eGFR NON- AMER. (test code = 61844) 114 ML/MIN/1.73 CALCULATED BUN/CREAT (test code = 2235) 25 RATIO SODIUM (test code = 2231) 137 MEQ/L POTASSIUM (test code = 2228) 4.5 MEQ/L CHLORIDE (test code = 2215) 100 MEQ/L CARBON DIOXIDE (test code = 2206) 28 MEQ/L CALCIUM (test code = 2209) 9.6 MG/DL PROTEIN, TOTAL (test code = 2229) 7.4 G/DL ALBUMIN (test code = 2201) 4.0 G/DL CALCULATED GLOBULIN (test code = 2240) 3.4 G/DL CALCULATED A/G RATIO (test code = 2234) 1.2 RATIO BILIRUBIN, TOTAL (test code = 2207) 0.8 MG/DL ALKALINE PHOSPHATASE (test code = 2204) 57 U/L SGOT (AST) (test code = 2218) 19 U/L SGPT (ALT) (test code = 2219) 21 U/L COMPREHENSIVE METABOLIC [id number] 00:00:00* Test Item Value Reference Range Interpretation Comme nts GLUCOSE (test code = 2217) 195 MG/DL BUN (test code = 2208) 14 MG/DL CREATININE (test code = 2214) 0.55 MG/DL eGFR AMER. (test cod e = 34691) 132 ML/MIN/1.73 eGFR NON- AMER. (test code = 87786) 114 ML/MIN/1.73 CALCULATED BUN/CREAT (test code = 2235) 25 RATIO SODIUM (test code = 2231) 137 MEQ/L POTASSIUM (test code = 2228) 4.5 MEQ/L CHLORIDE (test code = 2215) 100 MEQ/L CARBON DIOXIDE (test code = 2206) 28 MEQ/L CALCIUM (test code = 2209) 9.6 MG/DL PROTEIN, TOTAL (test code = 2229) 7.4 G/DL ALBUMIN (test code = 2201) 4.0 G/DL CALCULATED GLOBULIN (test code = 2240) 3.4 G/DL CALCULATED A/G RATIO (test code = 2234) 1.2 RATIO BILIRUBIN, TOTAL (test code = 2207) 0.8 MG/DL ALKALINE PHOSPHATASE (test code = 2204) 57 U/L SGOT (AST) (test code = 2218) 19 U/L SGPT (ALT) (test code = 2219) 21 U/L HEMOGLOBIN [id number] 00:00:00* Test Item Value Reference Range Interpretation Comme [facility] HEMOGLOBIN A1c (test code = 69268) 9.9 % HEMOGLOBIN [id number] 00:00:00* Test Item Value Reference Range Interpretation Comme nts HEMOGLOBIN A1c (test code = 91737) 9.9 % HEMOGLOBIN [id number] 00:00:00* Test Item Value Reference Range Interpretation Comme nts HEMOGLOBIN A1c (test code = 47759) 9.9 % CBC W/AUTO [id number] 00:00:00* Test Item Value Reference Range Interpretation Comme nts WBC (test code = 1001) 7.1 K/UL RBC (test code = 1002) 4.68 M/UL HEMOGLOBIN (test code = 1003) 13.8 G/DL HEMATOCRIT (test code = 1004) 41.7 % MCV (test code = 1005) 89.1 fL MCH (test code = 1006) 29.5 PG MCHC (test code = 1007) 33.1 G/DL RDW (test code = 1038) 13.5 % NEUTROPHILS (test code = 1008) 60 % LYMPHOCYTES (test code = 1010) 30 % MONOCYTES (test code = 1011) 8 % EOSINOPHILS (test code = 1012) 2 % BASOPHILS (test code = 1013) 1 % PLATELET COUNT (test code = 1015) 352 K/UL CBC W/AUTO [id number] 00:00:00* Test Item Value Reference Range Interpretation Comme nts WBC (test code = 1001) 7.1 K/UL RBC (test code = 1002) 4.68 M/UL HEMOGLOBIN (test code = 1003) 13.8 G/DL HEMATOCRIT (test code = 1004) 41.7 % MCV (test code = 1005) 89.1 fL MCH (test code = 1006) 29.5 PG MCHC (test code = 1007) 33.1 G/DL RDW (test code = 1038) 13.5 % NEUTROPHILS (test code = 1008) 60 % LYMPHOCYTES (test code = 1010) 30 % MONOCYTES (test code = 1011) 8 % EOSINOPHILS (test code = 1012) 2 % BASOPHILS (test code = 1013) 1 % PLATELET COUNT (test code = 1015) 352 K/UL CBC W/AUTO [id number] 00:00:00* Test Item Value Reference Range Interpretation Comme nts WBC (test code = 1001) 7.1 K/UL RBC (test code = 1002) 4.68 M/UL HEMOGLOBIN (test code = 1003) 13.8 G/DL HEMATOCRIT (test code = 1004) 41.7 % MCV (test code = 1005) 89.1 fL MCH (test code = 1006) 29.5 PG MCHC (test code = 1007) 33.1 G/DL RDW (test code = 1038) 13.5 % NEUTROPHILS (test code = 1008) 60 % LYMPHOCYTES (test code = 1010) 30 % MONOCYTES (test code = 1011) 8 % EOSINOPHILS (test code = 1012) 2 % BASOPHILS (test code = 1013) 1 % PLATELET COUNT (test code = 1015) 352 K/UL
--- NOTE | 2023-11-18 16:54 | RAD REPORT ---
EXAM DESCRIPTION: RAD - Ankle Left 3 View -11/18/2023 4:26 pm CLINICAL HISTORY: Left ankle pain FINDINGS: No fracture or dislocation is seen. Large plantar calcaneal spur or
--- NOTE | 2023-11-18 16:58 | EDPHYS ---
Physician Documentation [facility] Name: Tova Ames Age: 53 yrs Sex: Female : 1970 Arrival Date: 11/18/2023 Time: 15:08 Bed DX3 Private MD: ED Physician Elan Oropeza HPI: 11/18 16:08 This 53 yrs old Female presents to ER via Unassigned with complaints of Leg ec2 Pain - left. 16:08 Patient with chronic knee problems arrives today after twisting her left ankle. Reports ec2 that she subsequently fell. Denies any pain anywhere else. Patient reports no head injury or neck pain. Patient denies any other concerns.. Historical: - Allergies: 16:16 Aspirin; nj1 16:16 Ibuprofen; nj1 16:16 PENICILLINS; nj1 16:16 INFLUENZA VIRUS VACCINES; nj1 - PMHx: 16:16 diabetes mellitus; Nerve damage; nj1 - Immunization history:: Client reports having NOT received the Covid vaccine. - Social history:: Smoking status: Patient denies any tobacco usage or history of. ROS: 16:08 Constitutional: as per hpi ec2 Exam: 16:08 Constitutional: GEN: NAD Head: atraumatic Eyes: EOMI Ears: External ears are ec2 normal. CV: regular rate LUNGS: no respiratory distress ABD: non-distended SKIN: no evidence of rashes MSK: TTP to the left lateral malleolus, no obvious deformity present, swelling noted, no ecchymosis. Intact distal neurovascular status. NEURO: moves all extremities equally Vital Signs: 16:14 BP 143 / 74; Pulse 86; Resp 16; Temp 98.2(O); Pulse Ox 98% on R/A; Weight 76.2 kg; nj1 Height 5 ft. 2 in. ; Pain 8/10; 16:14 Body Mass Index 30.73 (76.20 kg, 157.48 cm) nj1 16:14 Pain Scale: Adult nj1 MDM: 16:08 Patient medically screened. ec2 16:08 ED course: Patient arrives today for evaluation of a left ankle injury. Evaluation is ec2 remarkable for MSK findings as noted above. Will obtain radiograph of the left ankle. Consider ankle sprain versus bony fracture.. 16:57 Data reviewed: vital signs. ED course: Ankle x-ray shows no bony fracture. Suspect ec2 ankle sprain. Will discharge home. Return precautions given.. 11/18 16:08 Order name: Ankle Left 3 View XRAY; Complete Time: 16:57 ec2 11/18 16:57 Order name: Mychal Wrap; Complete Time: 17:31 ec2 Administered Medications: No medications were administered Disposition Summary: 11/18/23 16:58 Discharge Ordered Notes: Location: Home ec2 Condition: Stable ec2 Diagnosis - Sprain of ankle ec2 Followup: ec2 - With: Private Physician - When: - Reason: Re-evaluation by your physician Discharge Instructions: - Discharge Summary Sheet ec2 - Ankle Sprain, Oxwr-nd-Rolx ec2 Forms: - Medication Reconciliation Form ec2 - Thank You Letter ec2 - Antibiotic Education ec2 - Prescription Opioid Use ec2 - Patient Portal Instructions ec2 - Leadership Thank You Letter ec2 Signatures: Dispatcher [employer] Ellen Simon RN RN nj1 Elan Oropeza MD MD ec2
--- NOTE | 2023-11-18 16:58 | ER ---
Nurse's Notes [facility] Name: Tova Ames Age: 53 yrs Sex: Female : 1970 Arrival Date: 11/18/2023 Time: 15:08 Bed DX3 Private MD: Diagnosis: Sprain of ankle Presentation: 11/18 16:10 Note Pt on the phone when this RN starts asking questions for triage. [facility] 16:14 Chief complaint: Patient states: Fall today, left knee/ankle pain. Able to ambulate nj1 with pain. Coronavirus screen: Vaccine status: Patient reports being unvaccinated. Ebola Screen: Patient denies travel to an Ebola-affected area in the 21 days before illness onset. Risk Assessment: Do you want to hurt yourself or someone else? Patient reports no desire to harm self or others. Onset of symptoms was November 18, 2023. 16:14 Method Of Arrival: Ambulatory [facility] 16:14 Acuity: JACKIE 4 [facility] 16:14 Initial Sepsis Screen: Does the patient meet any 2 criteria? No. Patient's initial [facility] sepsis screen is negative. Does the patient have a suspected source of infection? No. Patient's initial sepsis screen is negative. Historical: - Allergies: 16:16 Aspirin; de1 16:16 Ibuprofen; de1 16:16 PENICILLINS; [facility] 16:16 INFLUENZA VIRUS VACCINES; de1 - PMHx: 16:16 diabetes mellitus; Nerve damage; nj1 - Immunization history:: Client reports having NOT received the Covid vaccine. - Social history:: Smoking status: Patient denies any tobacco usage or history of. Assessment: 17:35 Reassessment: Patient is alert, oriented x 3, equal unlabored respirations, skin aa5 warm/dry/pink. 17:35 Reassessment: Patient is alert, oriented x 3, equal unlabored respirations, skin aa5 warm/dry/pink. KARON bandage applied to left ankle . Vital Signs: 16:14 BP 143 / 74; Pulse 86; Resp 16; Temp 98.2(O); Pulse Ox 98% on R/A; Weight 76.2 kg; nj1 Height 5 ft. 2 in. ; Pain 8/10; 16:14 Body Mass Index 30.73 (76.20 kg, 157.48 cm) [facility] 16:14 Pain Scale: Adult [facility] ED Course: 15:10 Patient arrived in ED. im 15:19 Elan Oropeza MD is Attending Physician. ec2 16:16 Triage completed. nj1 16:16 Arm band placed on left wrist. nj1 16:28 Ankle Left 3 View XRAY In Process Unspecified. EDMS 17:35 No provider procedures requiring assistance completed. Patient did not have IV access aa5 during this emergency room visit. Administered Medications: No medications were administered Outcome: 16:58 Discharge ordered by MD. ec2 17:35 Discharged to home via wheelchair, aa5 17:35 Condition: stable 17:35 Discharge instructions given to patient, Instructed on discharge instructions, follow up and referral plans. Demonstrated understanding of instructions, follow-up care, 17:41 Patient left the ED. aa5 Signatures: Dispatcher [employer] EDGhislaine Casas, RN RN aa5 Ellen Hobbs RN RN nj1 Carlene Gonzalez Elan Oropeza MD MD ec2 Corrections: (The following items were deleted from the chart) 16:11 16:10 Chief complaint: nj1 nj1 16:17 16:14 BP 143 / 74; Pulse 86bpm; Resp 16bpm; Pulse Ox 98% RA; 76.2 kg; Height 5 ft. 2 nj1 in.; BMI: 30.7; Pain 8/10, Adult; nj1
[2023-11-18 17:51] VITALS: BP 143/74; TEMP 98.2; O2SAT 98
== END ==
LOC: ER 15:08
DX: S93.402A Sprain of unspecified ligament of left ankle, initial encounter (principal)

== ENCOUNTER 2024-01-19 18:09 | Emergency (ER) | payer OTHER ==
--- OUTSIDE RECORDS SUMMARY | 2024-01-19 18:19 | XMS REPORT | Continuity of Care Document ---
Author Name Unknown Address [address] [facility] [place] [address] [facility] thconnect Address [address] [facility] [address] [place] [address] Care Team Providers Care Tour Manager Name Role Phone Óscar Rose [facility] Care Physician DALY MEJIAS Attending Clinician Unavailable [facility]90 Attending Clinician Unavailable Doctor Unassigned, [place] Attending Clinician U navailable Maricarmen SANCHEZ Attending Clinician Unavailable Sadaf PAC K Purnima Attending Clinician [phone] JOHN KAMARA Attending Clinician Unavailable Jhon Kamara DO Attending Clinician [phone] DANNIELLE ARECHIGA Attending Clinician Unavailable Dannielle Arechiga MD Attending Clinician [phone] EBENEZER HELM Attending Clinician UnavailEbenezer Goldman MD Attending Clinician [phone] RENETTA COE Attending Clinician UnavailRenetta Araiza Attending Clinician + [phone] ELADIO MONSIVAIS Attending Clinician Unavailable Eladio Urena Attending Clinician [phone] Yolanda Bass MD Attending Clinician + YOLANDA BASS Attending Clinician Unavailable Vonnie Mcdonald Attending Clinician [phone] VONNIE NATHAN Attending Clinician Unavailable Hermilo Jeffery MD Attending Clinician +[phone] HERMILO JEFFERY Attending Clinician Unavailable Kt Ratliff MD Attending Clinician +[phone] Carie Chanel NP Attending Clinician + CARIE CHANEL Attending Clinician Unavailable Luisito Quinteros Attending Clinician + [phone] LUISITO CHAVIS Attending Clinician Unavailable Ly Yepez RN Attending Clinician Unavailable Mckayla Masterson Attending Clinician [phone] Maricarmen SANCHEZ Admitting Clinician Unavailable JOHN KAMARA Admitting Clinician Unavailable EBENEZER HELM Admitting Clinician UnavailELADIO Swan Admitting Clinician Unavailable VONNIE NATHAN Admitting Clinician Unavailable HERMILO JEFFERY Admitting Clinician Unavailable CARIE CHANEL Admitting Clinician Unavailable Payers Payer Name Policy Type Policy Number Effective Date Expirati on Date Source AEDANA CACERES [facility] [place] [address] [place] 9 [id number] 2023 00:00:00 [facility] [id number] 2022 00:00:00 [facility] [id number] 2021 00:00:00 Problems Condition Name Condition Details [...] reflux disease without esophagiti s Diagnosis Active [facility] Diabetes 1.5, 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, managed as type 1 Diagnosis Active [facility] Alcoholism Alcoholism Problem Active [facility] Major depressive disorder, single episode, unspecifie d Major depressive disorder, single episode, unspecifie d Diagnosis Active [facility] Cervicalgi a Cervicalgi a Problem Active [facility] 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 Problem Active [facility] Anxiety disorder, unspecifie d Anxiety disorder, unspecifie d Problem Active [facility] Diabetic polyneurop athy associated with type 2 diabetes mellitus Diabetic polyneurop athy associated with type 2 diabetes mellitus Diagnosis Active [facility] Diabetic neuropathi c arthritis Diabetic neuropathi c arthritis Problem Active [facility] Other chronic pain Other chronic pain Diagnosis Active [facility] Pain in right shoulder Pain in right shoulder Diagnosis Active [facility] No known active problems No known active problems Disease [facility] Allergies, Adverse Reactions, Alerts Allergy Name Allergy [...] DRUG INGREDI Active Unknown-Cmnt 06-23 00:00: 00 [facility] Iodine Propensi ty to adverse reaction s Active Other 06-23 00:00: 00 Pt not sure what kind of reaction she had Shelby birch Flu Vac 2011 (18-64yr s)(Pf) Propensi ty to adverse reaction s Active Anaphylaxis 3 00:00: 00 [facility] FLU VAC 2011 (18-64YR S)(PF) DRUG Active Anaphylaxis 313 00:00: 00 [facility] Aspirin Propensi ty to adverse reaction s Active Unknown - See comments 12-25 00:00: 00 [facility] Penicill ins Propensi ty to adverse reaction s Active Unknown - See comments 12-25 00:00: 00 [facility] ASPIRIN DRUG INGREDI Active High Hives 12-25 00:00: 00 [facility] IBUPROFE N DRUG INGREDI Active High Hives 12-25 00:00: 00 [facility] PENICILL INS Drug Class Active Unknown-Cmnt 12-25 00:00: 00 [facility] Penicill ins Propensi ty to adverse reaction s Active Unknown - See comments 12-25 00:00: 00 [facility] Penicill ins Propensi ty to adverse reaction s Active Unknown - See comments 12-25 00:00: 00 [facility] Calcium Acetylsa licylate Propensi ty to adverse [...] PCN Adverse Reaction Active Info Not Available [facility] Ibuprofe n Adverse Reaction Active Info Not Available [facility] Aspirin Adverse Reaction Active Info Not Available [facility] zucchini Adverse Reaction Active Info Not Available [facility] green beans Adverse Reaction Active Info Not Available [facility] almonds Adverse Reaction Active Info Not Available [facility] Social History Social Habit Start Date Stop Date Quantity Comments Source Sexual orientation Maricarmen Olvera - External History of tobacco use Cigarette Smoker Shelby kent - External Gender identity [facility] Cigarettes smoked current (pack per day) [...] (event) 2023-01-29 00:00:00 2023-02-08 08:32:00 Not sure [facility] Sex Assigned At 1970 00:00:00 1970 00:00:00 Shelby Alfaro Smoking Status Start Date Stop Date Source Ex-smoker 2023-10-14 00:00:00 2023-10-14 00:00:00 Shelby Alfaro Tobacco smoking consumption unknown [facility] Medications Ordered Medication Name Filled Medication Name [...] by mouth 3 times daily. Shelby birch Trulicity 0.75 MG/0.5ML subcutaneou s Solution Pen-injecto r 10-14 00:00: 00 Yes [id number] .75mg Inject 0.75 mg into the skin once a week. [facility] birch Glimepiride 4 MG oral Tablet 10-14 00:00: 00 Yes [id number] 4mg Take 1 tablet (4 mg total) by mouth every morning (before breakfast) . Shelby birch Duloxetine HCl [address] Particles 10-14 00:00: 00 Yes [id number] 20mg Take 1 capsule (20 mg total) by mouth daily. Shelby birch Meloxicam 15 MG oral Tablet 10-14 00:00: 00 Yes [id number] 15mg QD Take 1 tablet (15 mg total) by mouth daily as needed for pain. [facility] birch Tramadol HCl (ULTRAM) 50 MG oral Tablet 10-14 00:00: 00 Yes [id number] 50mg QD Take 1 tablet (50 mg total) by mouth daily as needed for pain. [facility] bir[facility] Methocarbam ol 750 MG oral Tablet 10-14 00:00: 00 Yes [id number] 750mg QD Take 1 tablet (750 mg total) by mouth daily as needed (muscle spasm). Shelby birch Liraglutide (Victoza) 18 MG/3ML subcutaneou [...] 500 mg tablet 02-08 00:00: 00 Yes [id number] 500mg Take 1 tablet by mouth in the morning and 1 tablet in the evening. Take with meals. [facility] HYDROcodone -acetaminop hen (NORCO) 10-325 mg tablet 1 tablet 11-29 01:00: 00 11-29 00:16 :00 No 1{tbl} 1 tablet, Oral, ONCE, 1 dose, On Sat11/28/22 at 1900, Routine [facility] methylPREDN ISolone 4 mg tablets 11-28 00:00: 00 Yes [id number] Take by mouth SEE-INSTRU CTIONS. follow package directions [facility] methylPREDN ISolone 4 MG oral Tablet Therapy Pack 11-28 00:00: 00 10-14 00:00 :00 No 1{anthony} Take 1 anthony by mouth See Admin Instructkaiden birch methocarbam oL 500 mg tablet 11-28 00:00: 00 12-04 05:59 :00 No [id number] 500mg Take 1 tablet by mouth in the morning and 1 tablet at noon and 1 tablet in the evening. Do all this for 5 days. [facility] TAKE ONE (1) CAPSULE BY MOUTH EVERY [...] Urine
D uration of Therapy: 7 days [facility] naproxen (NAPROSYN) tablet 250 mg 2021-10 23:00: 00 Yes 250mg 250 mg, Oral, BID MEALS, First dose on 09/16/22 at 1700, Until Discontinu ed, Routine [facility] ondansetron (ZOFRAN) 4 mg tablet 2021-10 00:00: 00 Yes [id number] 4mg Take 1 tablet by mouth every 8 (eight) hours as needed for Nausea and Vomiting (N/V). [facility] cefdinir 300 mg capsule 2021-10 00:00: 00 09-24 05:59 :00 No [id number] 300mg Take 1 capsule by mouth every 12 (twelve) hours for 7 days. [facility] traMADoL 50 mg tablet 2021-10 00:00: 00 09-24 05:59 :00 No [id number] 50mg Take 1 tablet by mouth every 6 (six) hours as needed for Pain (scale 7-10) for up to 7 days. Indication s: acute pain [facility] cyclobenzap rine (FLEXERIL) tablet 10 mg 06-26 02:15: 00 06-26 01:32 :00 No 10mg 10 mg, Oral, ONCE NOW, 1 dose, On Sat06/25/22 at 2115, Routine [facility] cyclobenzap rine 10 mg tablet 06-25 00:00: 00 07-03 04:59 :00 No [id number] 10mg Take 1 tablet by mouth in the morning and 1 tablet at noon and 1 tablet in the evening. Do all this for 20 doses. [facility] Nitrofurant oin&Nit. Macrocryst 100 mg capsule 06-25 00:00: 00 07-03 04:59 :00 No [id number] 100mg Take 1 capsule by mouth in the morning and 1 capsule in the evening. Do all this for 7 days. [facility] Dose Unknown 06-06 00:00: 00 No TAKE 1 TABLET 2 TIMES DAILY AFTER MEALS 06-06 00:00: 00 No 50 Dose Unknown 06-06 00:00: 00 No Dose Unknown 05-15 00:00: 00 No Dose Unknown 0 05-15 00:00: 00 No Dose Unknown 8 00:00: 00 No Dose Unknown 8- 00:00: 00 No Dose Unknown 2022-0 8-09 00:00: 00 No Dose Unknown 2022-0 8-09 00:00: 00 No Dose Unknown 2022-0 8-02 00:00: 00 No Dose Unknown 2022-0 8-02 00:00: 00 No Dose Unknown 2022-0 8-02 00:00: 00 No Dose Unknown 2022-0 8- 00:00: 00 No Dose Unknown 2022-0 8- 00:00: 00 No Dose Unknown 2022-0 8-02 00:00: 00 No Dose Unknown 2022-0 8- [...] 8- 00:00: 00 No Dose Unknown 2022-0 7-28 00:00: 00 No Dose Unknown 2022-0 7- 00:00: 00 No Dose Unknown 2022-0 7- 00:00: 00 No Dose Unknown 2022-0 7- 00:00: 00 No naproxen (NAPROSYN) tablet 250 mg 2022-0 7-05 04:45: 00 202- 07- 03:42 :00 No 250mg 250 mg, Oral, ONCE, 1 dose, On Sat04/09/22 at 2345, SARAH [facility] Dose Unknown 2022-0 3-30 00:00: 00 No Dose Unknown 2022-0 3-30 00:00: 00 No Dose Unknown 2022-0 3-30 00:00: 00 No Dose Unknown 2022-0 3-30 00:00: 00 No Dose Unknown 2022-0 3-30 00:00: 00 No Dose Unknown 2022-0 3-30 00:00: 00 No Dose Unknown 01-03 00:00: 00 No Dose Unknown 01-03 00:00: 00 No Dose Unknown 01-03 00:00: 00 No Dose Unknown 01-03 00:00: 00 No Dose Unknown 01-03 00:00: 00 No Dose Unknown 01-03 00:00: 00 No lidocaine 5 % [...] mg tablet 01-03 00:00: 00 No 1mg Dose Unknown 01-03 00:00: 00 No duloxetine 60 mg capsule,del ayed release 01-03 00:00: 00 No 1mg pregabalin 100 mg capsule 01-03 00:00: 00 No 1mg doxycycline monohydrate 100 mg capsule 01-03 00:00: 00 No 1mg Bromfed DM 2 mg-30 mg-10 mg/5 mL oral syrup 01-03 00:00: 00 No 5mg/5 mL Dose Unknown 3 00:00: 00 No Dose Unknown 0 3 00:00: 00 No Dose Unknown -21 00:00: 00 No Dose Unknown 0 3 00:00: 00 No Dose Unknown 0 12-25 00:00: 00 No Dose Unknown 0 12-25 00:00: 00 No Dose Unknown 0 12-25 00:00: 00 No Dose Unknown 0 12-25 00:00: 00 No Dose Unknown 0 12-25 00:00: 00 No Dose Unknown 0 12-25 00:00: 00 No Dose Unknown 0 12-25 00:00: 00 No Dose Unknown 0 12-25 00:00: 00 No Dose Unknown 0 12-25 00:00: 00 No Dose Unknown 0 12-25 00:00: 00 No Dose Unknown 0 12-25 00:00: 00 No Dose Unknown 0 12-25 00:00: 00 No insulin regular human (HUMULIN R) injection 10 Units 12-07 06:00: 00 12-07 04:52 :00 No 10U 10 Units, Slow IV Push, ONCE, 1 dose, On Vanessa 12/07/21 at 0000, STAT [facility] NaCl 0.9% (NS) bolus infusion 2,000 mL 12-07 06:00: 00 12-07 07:03 :00 No 2000mL at 999 mL/hr, 2,000 mL, IV Infusion, ONCE, 1 dose, On Vanessa 12/07/21 at 0000, SARAH [facility] levoFLOXaci n (LEVAQUIN) 750 mg tablet 12-07 00:00: 00 12-15 05:59 :00 No [id number] 750mg Take 1 tablet by mouth every 24 (twenty-fo ur) hours for 7 days. [facility] Dose Unknown 2020-10 00:00: 00 No glimepiride 4 mg tablet 2020-10 00:00: 00 No 1mg glimepiride 4 mg tablet 2020-10 00:00: 00 No 1mg glimepiride 4 mg tablet 2021-1 2-02 00:00: 00 No 1mg Dose Unknown 2020-10 1-15 00:00: 00 No Dose Unknown 2020-10 115 00:00: 00 No Dose Unknown 2020-10 115 00:00: 00 No Dose Unknown 2020-10 115 00:00: 00 No ProAir HFA 90 mcg/actuati on aerosol inhaler 2020-10 0-13 00:00: 00 No 12mcg/a ctuatio n Advair Diskus 250 mcg-50 mcg/dose powder for inhalation 2020-10 0-13 00:00: 00 No 1mcg/do se triamcinolo ne acetonide 0.1 % topical cream 2020-10 0-13 00:00: 00 No 1% ProAir HFA 90 mcg/actuati on aerosol inhaler 2020-10 0-13 00:00: 00 No 12mcg/a ctuatio n Dose Unknown 2020-10 0-13 00:00: 00 No Advair Diskus 250 mcg-50 [...] Dose Unknown 2020-10 0-13 00:00: 00 No nitrofurant oin macrocrysta l [...] 00 No 1mg Flagyl 500 mg tablet 8 00:00: 00 No 1mg nystatin 100,000 unit/gram topical ointment 8 00:00: 00 No 1unit/g theresa Diflucan 150 mg tablet 8 00:00: 00 No 1mg Flagyl 500 mg tablet 06-05 00:00: 00 No 1mg nystatin 100,000 unit/gram topical ointment 8 00:00: 00 No 1unit/g theresa Diflucan 150 mg tablet 8 00:00: 00 No 1mg Flagyl 500 mg tablet 06-05 00:00: 00 No 1mg nystatin 100,000 unit/gram topical ointment 8 00:00: 00 No 1unit/g theresa Diflucan 150 mg tablet 06-05 00:00: 00 No 1mg Flagyl 500 mg tablet 8 00:00: 00 No 1mg prednisone 20 mg tablet 8 00:00: 00 No 1mg loratadine- pseudoephed rine ER 10 mg-240 mg tablet,exte nded [id number] 8 00:00: 00 No 1mg pantoprazol e 40 mg tablet,tony yed release 8 00:00: 00 No 1mg doxycycline monohydrate 100 mg capsule 8 00:00: 00 No 1mg prednisone 20 mg tablet 8 00:00: 00 No 1mg loratadine- pseudoephed rine ER 10 mg-240 mg tablet,exte nded [id number] 8 00:00: 00 No 1mg pantoprazol e 40 mg tablet,tony yed release 8 00:00: 00 No 1mg doxycycline monohydrate 100 mg capsule 8 00:00: 00 No 1mg prednisone 20 mg tablet 8 00:00: 00 No 1mg loratadine- pseudoephed rine ER 10 mg-240 mg tablet,exte nded [id number] 8 00:00: 00 No 1mg pantoprazol e 40 mg tablet,tony yed release 8 00:00: 00 No 1mg doxycycline monohydrate 100 mg capsule 8 00:00: 00 No 1mg prednisone 20 mg tablet 8 00:00: 00 No 1mg loratadine- pseudoephed rine ER 10 mg-240 mg tablet,exte nded [id number] 8 00:00: 00 No 1mg pantoprazol e 40 mg tablet,tony yed release 05-30 00:00: 00 No 1mg doxycycline monohydrate 100 mg capsule 05-30 00:00: 00 No 1mg prednisone 20 mg tablet 04-26 00:00: 00 [...] No 1mg clarithromy hoa 500 mg tablet 16 00:00: 00 No 1mg metronidazo le 500 mg tablet 16 00:00: 00 No 1mg omeprazole 20 mg capsule,del ayed release 16 00:00: 00 No 1mg clarithromy hoa 500 [...] ayed release 01-20 00:00: 00 No 1mg Dose Unknown 01-18 00:00: 00 No Dose Unknown 01-18 00:00: 00 No lidocaine 5 % topical patch 01-18 00:00: 00 No 1% losartan 50 mg tablet 01-18 00:00: 00 No 1mg glimepiride 4 mg tablet 01-18 00:00: 00 No 1mg duloxetine 60 mg capsule,del ayed release 01-18 00:00: 00 No 1mg pregabalin 100 mg capsule 01-18 00:00: 00 No 1mg ProAir HFA 90 mcg/actuati on aerosol inhaler 01-18 00:00: 00 No 12mcg/a ctuatio n Advair Diskus 250 mcg-50 mcg/dose powder for inhalation 01-18 00:00: 00 No 1mcg/do se lidocaine 5 % topical patch 01-18 00:00: 00 No 1% losartan 50 mg tablet 01-18 00:00: 00 No 1mg glimepiride 4 mg tablet 01-18 00:00: 00 No 1mg duloxetine 60 mg capsule,del ayed release 01-18 00:00: 00 No 1mg pregabalin 100 mg capsule 01-18 00:00: 00 No 1mg ProAir HFA 90 mcg/actuati on aerosol inhaler 01-18 00:00: 00 No 12mcg/a ctuatio n Advair Diskus 250 mcg-50 mcg/dose powder for inhalation 01-18 00:00: 00 No 1mcg/do se lidocaine 5 % topical patch 01-18 00:00: 00 No 1% losartan 50 mg tablet 01-18 00:00: 00 No 1mg glimepiride 4 mg tablet 01-18 00:00: 00 No 1mg duloxetine 60 mg capsule,del ayed release 01-18 00:00: 00 No 1mg pregabalin 100 mg capsule 01-18 00:00: 00 No 1mg ProAir HFA 90 mcg/actuati on aerosol inhaler 01-18 00:00: 00 No 12mcg/a ctuatio n Advair Diskus 250 mcg-50 mcg/dose powder for inhalation 01-18 00:00: 00 No 1mcg/do se lidocaine 5 % topical patch 01-18 00:00: 00 No 1% losartan 50 [...] ONCE, 1 dose, 12/17/20 at 1245, SAR[facility] NaCl 0.9% (NS) bolus infusion 1,000 mL 12-17 18:45: 00 12-17 18:54 :00 No 1000mL at 999 mL/hr, 1,000 mL, IV Infusion, ONCE, 1 dose, 12/17/20 at 1245, STAT [facility] ondansetron 4 mg disintegrat ing tablet 12-17 00:00: 00 Yes [id number] 4mg Take 1 tablet by mouth every 8 (eight) hours as needed for Nausea and Vomiting (N/V). [facility] pantoprazol e 40 mg EC tablet 12-17 00:00: 00 Yes [id number] 40mg Take 1 tablet by mouth daily. [facility] ProAir HFA 90 mcg/actuati on aerosol inhaler 11-30 00:00: 00 No 12mcg/a ctuatio n Advair Diskus 250 mcg-50 mcg/dose powder for inhalation 11-30 00:00: 00 No 1mcg/do se losartan 50 mg tablet 11-30 00:00: 00 No 1mg duloxetine 60 mg capsule,del ayed release 11-30 00:00: 00 No 1mg esomeprazol e magnesium 40 mg capsule,del ayed release 11-30 00:00: 00 No 1mg ProAir HFA 90 mcg/actuati on aerosol inhaler 11-30 00:00: 00 No 12mcg/a ctuatio n Advair Diskus 250 mcg-50 mcg/dose powder for inhalation 11-30 00:00: 00 No 1mcg/do se losartan 50 mg tablet 24 00:00: 00 No 1mg duloxetine 60 mg capsule,del ayed release 2- 00:00: 00 No 1mg esomeprazol e magnesium 40 mg capsule,del ayed release - 00:00: 00 No 1mg ProAir HFA 90 mcg/actuati on aerosol inhaler 2-24 00:00: 00 No 12mcg/a ctuatio n Advair Diskus 250 mcg-50 mcg/dose powder for inhalation -24 00:00: 00 No 1mcg/do se ProAir HFA 90 mcg/actuati on aerosol inhaler 2-24 00:00: 00 No 12mcg/a ctuatio n Advair Diskus 250 mcg-50 mcg/dose powder for inhalation 11-30 00:00: 00 No 1mcg/do se losartan 50 mg tablet 11-30 00:00: 00 No 1mg duloxetine 60 mg capsule,del ayed release 11-30 00:00: 00 No 1mg losartan 50 mg tablet 11-30 00:00: 00 No 1mg esomeprazol e [...] ONCE, 1 dose, 10/30/20 at 0830, Routine [facility] NaCl 0.9% (NS) bolus infusion 1,000 mL 10-30 13:00: 00 10-30 15:20 :00 No 1000mL at 999 mL/hr, 1,000 mL, IV Infusion, ONCE, 1 dose, 10/30/20 at 0700, SARAH [facility] benzonatate 100 mg capsule 10-30 00:00: 00 Yes [id number] 100mg Take 1 capsule by mouth 3 (three) times daily as needed for Cough. [facility] chlorphenir amine 4 mg tablet 10-30 00:00: 00 Yes [id number] 4mg Take 1 tablet by mouth every 6 (six) hours as needed for Allergies or Runny nose. [facility] ondansetron 4 mg disintegrat ing tablet 10-30 00:00: 00 Yes [id number] 4mg Take 1 tablet by mouth every 8 (eight) hours as needed for Nausea and Vomiting (N/V). [facility] metoclopram zeb 10 mg tablet 10-14 00:00: [...] 250 mg, Oral, ONCE NOW, 1 dose, 09/26/20 at 1930, SARAH
Re ason for Anti-Infec tive: Documented Infection< br>Documen waldo Infection Site: Urine
D uration of Therapy: 7 days [facility] famotidine (PEPCID (PF)) injection 20 mg 2019-10 22:45: 00 09-26 22:45 :00 No 20mg 20 mg, Slow IV Push, ONCE, 1 dose, 09/26/20 at 1645, [facility] ondansetron (ZOFRAN (PF)) injection 4 mg 2019-10 22:45: 00 09-26 22:07 :00 No 4mg 4 mg, Slow IV Push, ONCE, 1 dose, Sat09/26/20 at 1645, [facility] proMETHazin e 25 mg tablet 2019-10 00:00: 00 Yes [id number] 25mg Take 1 tablet by mouth every 6 (six) hours as needed for Nausea and Vomiting (N/V). [facility] sucralfate 1 gram tablet 2019-10 00:00: 00 Yes [id number] 1g Take 1 tablet by mouth before meals and at bedtime. [facility] ciprofloxac in HCl 250 mg tablet 2019-10 00:00: 00 10-02 05:59 :00 No [id number] 250mg Take 1 tablet by mouth 2 (two) times daily for 5 days. [facility] Victoza 3-Anthony 0.6 mg/0.1 mL (18 mg/3 [...] HFA 90 mcg/actuati on aerosol inhaler 2019-10 00:00: 00 No 12mcg/a ctuatio n dexamethaso ne 4 mg tablet 2019-10 00:00: 00 No 1mg levofloxaci n 500 mg tablet 2019-10 00:00: 00 No 1mg benzonatate 200 mg capsule 2019-10 00:00: 00 No 1mg Bromfed DM 2 mg-30 mg-10 mg/5 mL oral syrup 2019-10 00:00: 00 No 5mg/5 mL ProAir HFA 90 mcg/actuati on aerosol inhaler 2019-10 00:00: 00 No 12mcg/a ctuatio n dexamethaso ne 4 mg tablet 2019-10 00:00: 00 No 1mg levofloxaci n 500 mg tablet 2019-10 00:00: 00 No 1mg benzonatate 200 mg capsule 2019-10 00:00: 00 No 1mg Bromfed DM 2 mg-30 mg-10 mg/5 mL oral syrup 2019-10 00:00: 00 No 5mg/5 mL ProAir HFA 90 mcg/actuati on aerosol inhaler 2019-10 00:00: 00 No 12mcg/a ctuatio n dexamethaso ne 4 mg tablet 2019-10 00:00: 00 No 1mg levofloxaci n 500 mg tablet 2019-10 2- 00:00: 00 No 1mg benzonatate 200 mg capsule 2019-10- 00:00: 00 No 1mg Bromfed DM 2 mg-30 mg-10 mg/5 mL oral syrup 2019-10 00:00: 00 No 5mg/5 mL ProAir HFA 90 mcg/actuati on aerosol inhaler 2019-10 00:00: 00 No 12mcg/a ctuatio n dexamethaso ne 4 mg tablet 2019-10 00:00: 00 No 1mg levofloxaci n 500 mg tablet 2019-10 00:00: 00 No 1mg benzonatate 200 mg capsule 2019-10 00:00: 00 No 1mg Bromfed DM 2 mg-30 mg-10 mg/5 mL oral syrup 2019-10 00:00: 00 No 5mg/5 mL iohexol (OMNIPAQUE 350 BULK-100 mL) injection 100 mL 2019-10 02:15: 00 09-02 02:15 :00 No 100mL 100 mL, Intravenou s, ONCE, 1 dose, Vanessa 09/01/20 at 2015, Routine [facility] ondansetron (ZOFRAN (PF)) injection 4 mg 2019-10 23:45: 00 09-01 22:49 :00 No 4mg 4 mg, Slow IV Push, ONCE, 1 dose, Vanessa 09/01/20 at 1745, [facility] acetaminoph en (TYLENOL) tablet 650 mg 2019-10 23:45: 00 09-01 22:49 :00 No 650mg 650 mg, Oral, ONCE, 1 dose, Vanessa 09/01/20 at 1745, [facility] NaCl 0.9% (NS) bolus infusion 1,000 mL 2019-10 22:45: 00 09-02 00:02 :00 No 1000mL at 999 mL/hr, 1,000 mL, IV Infusion, ONCE, 1 dose, Vanessa 09/01/20 at 1645, [facility] azithromyci n 250 mg tablet 2019-10 00:00: 00 09-06 05:59 :00 No [id number] 250mg Take 1 tablet by mouth daily for 4 days. Take 500 mg day 1, then 250 mg days 2 to 5. [facility] prednisone 10 mg tablet 2019-10 00:00: 00 [...] at 0800, Until Discontinu ed, Routine [facility] ondansetron (ZOFRAN (PF)) injection 4 mg 2019-10 04:15: 00 07-26 03:28 :00 No 4mg 4 mg, Slow IV Push, ONCE, 1 dose, Sat07/25/20 at 2315, [facility] iohexol (OMNIPAQUE 350 BULK-150 mL) injection 120 mL 2019-10 04:15: 00 07-26 04:15 :00 No 120mL 120 mL, Intravenou s, ONCE, 1 dose, Sat07/25/20 at 2315, Routine [facility] NaCl 0.9% (NS) IV infusion 1,000 mL 2019-10 03:00: 00 Yes 1000mL at 999 mL/hr, Intravenou s, CONTINUOUS , Starting Sat07/25/20 at 2200, Until Discontinu ed, Routine [facility] ondansetron (ZOFRAN (PF)) injection 4 mg 2019-10 03:00: 00 07-26 02:14 :00 No 4mg 4 mg, Slow IV Push, ONCE, 1 dose, Sat07/25/20 at 2200, [facility] pantoprazol e (PROTONIX) 40 mg EC tablet 2019-10 00:00: 09-26 00:00 :00 No [id number] 40mg Take 1 tablet by mouth daily. [facility] dicyclomine 20 mg tablet 2019-10 00:00: 09-26 00:00 :00 No [id number] 20mg Take 1 tablet by mouth every 6 (six) hours as needed for Abdominal pain. [facility] ondansetron (ZOFRAN) 4 mg tablet 2019-10 00:00: 09-26 00:00 :00 No [id number] 4mg Take 1 tablet by mouth every 8 (eight) hours as needed for Nausea and Vomiting (N/V). [facility] naproxen 500 mg tablet,tony yed release 2019-10 00:00: 00 No 1mg naproxen 500 mg tablet,tony yed release 2019-10 00:00: 00 No 1mg naproxen 500 mg tablet,tony yed release 2019-10 00:00: 00 No 1mg Victoza 3-Anthony [...] (18 mg/3 mL) gabapentin 400 mg capsule 05-21 00:00: 00 No 1mg gabapentin 400 mg capsule 05-21 00:00: 00 No 1mg gabapentin 400 mg [...] No 1mg cyclobenzap rine 10 mg tablet 03-26 00:00: 00 No 1mg cyclobenzap rine 10 mg tablet 03-26 00:00: 00 No 1mg cyclobenzap rine 10 mg tablet 03-26 00:00: 00 No 1mg metronidazo le 500 mg tablet 0 2-03 00:00: 00 No 1mg metronidazo le 500 mg tablet 2-03 00:00: 00 No 1mg metronidazo le 500 [...] capsule 2018-10 00:00: 00 No 1mg gabapentin 300 mg capsule 04-30 00:00: 00 No 1mg gabapentin 300 mg capsule 04-30 00:00: 00 No 1mg gabapentin 300 mg capsule 04-30 00:00: 00 No 1mg methocarbam ol (ROBAXIN) 500 mg tablet 14 00:00: 00 11-28 00:00 :00 No [id number] 500mg Take 1 tablet by mouth 3 (three) times daily as needed for Pain (scale 4-6). [facility] traMADOL 50 mg tablet 14 00:00: 00 09-16 00:00 :00 No [id number] 50mg Take 1 tablet by mouth every 8 (eight) hours as needed for Pain (scale 4-6). [facility] naproxen 250 mg tablet 10-11 00:00: 00 Yes 250mg Take 1 tablet by mouth 2 (two) times daily with meals. [facility] traMADOL (ULTRAM) 50 mg tablet 10-11 00:00: 00 09-16 00:00 :00 No 50mg Take 1 tablet by mouth every 6 (six) hours as needed for Pain (scale 4-6). [facility] cyclobenzap rine 5 mg tablet 1-05 00:00: 00 09-26 00:00 :00 No 5mg Take 1 tablet by mouth 3 (three) times daily. [facility] Alprazolam Alprazolam 01-07 00:00: 00 Yes Stuart Morgan 1 tablet Common [facility] Novolin R Regular U-100 Insulin 100 [...] U-100 Insulin 100 unit/mL subcutaneou s solution 01-07 00:00: 00 No 10unit/ mL Levemir U-100 Insulin 100 unit/mL subcutaneou s solution 01-07 00:00: 00 No 10unit/ mL Levemir U-100 Insulin 100 unit/mL subcutaneou s solution 01-07 00:00: 00 No 10unit/ mL Levemir 100 unit/mL subcutaneou s solution 12-19 00:00: 00 No 10unit/ mL Levemir 100 unit/mL subcutaneou s solution 12-19 00:00: 00 No 10unit/ mL Levemir 100 unit/mL subcutaneou s solution 12-19 00:00: 00 No 10unit/ mL metformin [...] as needed for Nausea and Vomiting (N/V). [facility] ranitidine (ZANTAC) 150 mg tablet 05-20 00:00: 00 09-26 00:00 :00 No 150mg Take 1 tablet by mouth 2 (two) times daily. [facility] cyclobenzap rine 5 mg tablet 04-12 00:00: [...] 12-25 23:42: 52 Yes Take by mouth. [facility] INSULIN REGULAR HUMAN SC 12-25 23:42: 52 Yes inject under the skin. [facility] gabapentin (NEURONTIN) 300 mg capsule 12-25 23:42: 52 Yes 300mg Take 300 mg by mouth 3 (three) times daily. [facility] METFORMIN HCL (METFORMIN ORAL) 12-25 18:42: 52 Yes Take by mouth. [facility] INSULIN REGULAR HUMAN SC 12-25 18:42: 52 Yes inject under the skin. [facility] gabapentin (NEURONTIN) 300 mg capsule 12-25 18:42: 52 Yes 300mg Take 300 mg by mouth 3 (three) times daily. [facility] cyclobenzap rine 5 mg tablet 11-23 00:00: [...] Childrens Gummies Yes Stuart Eddie 2 gummies [facility] Lantus Lantus Yes Stuart Eddie 10 units [facility] Amitriptyli ne HCl Amitriptyli ne HCl Yes Stuart Eddie not defined [facility] B-12 B-12 Yes Stuart Eddie not defined [facility] Cyclobenzap rine HCl Cyclobenzap rine HCl Yes Stuart Eddie 1 tablet as needed [facility] Gabapentin Gabapentin Yes Stuart Eddie 1 tablet [facility] Immunizations Ordered Immunization Name Filled Immunization Name Date Status Comments Source Hepatitis B, Adult (3 dose) Unknown Completed Shelby Olvera - External Hepatitis B, Adult (3 dose) Unknown Completed Shelby Ruth External Hepatitis B, Adult (3 dose) Unknown Completed Shelby Ruth External Tdap- (Boostrix, Adacel) Unknown Completed Shelby lOvera - External Vital Signs Vital Name Observation Time Observation Value Comments S ourlo Systolic blood pressure 2023-10-14 15:33:00 124 mm[Hg] Shelby Reina ld - External Diastolic blood pressure 2023-10-14 15:33:00 70 mm[Hg] Shelby pelayo - External Heart rate 2023-10-14 14:52:00 88 /min Rosenda Olvera - External Body temperature 2023-10-14 14:52:00 36.39 [place] Shelby Olvera - External Respiratory rate 2023-10-14 14:52:00 20 /min Shelby Olvera - External Body height 2023-10-14 14:52:00 157.5 cm Fauzia barkley Seybold - External Body weight 2023-10-14 14:52:00 77.565 kg Fauzia barkley Seybold - External BMI 2023-10-14 14:52:00 31.28 kg/m2 Fauzia barkley Seybold - External Oxygen saturation in Arterial blood by Pulse oximetry 2023-10-14 14:52:00 99 /min Shelby Secatherineyesika ld - External Systolic blood pressure 2023-02-08 13:34:00 163 mm[Hg] [facility] Diastolic blood pressure 2023-02-08 13:34:00 85 mm[Hg] [facility] Heart rate 2023-02-08 13:34:00 88 /min [facility] Body temperature 2023-02-08 13:34:00 37.39 [place] [facility] Respiratory rate 2023-02-08 13:34:00 16 /min [facility] Body height 2023-02-08 13:34:00 157.5 cm [facility] Body weight 2023-02-08 13:34:00 73.936 kg [facility] BMI 2023-02-08 13:34:00 29.81 kg/m2 [facility] Oxygen saturation in Arterial blood by Pulse oximetry 2023-02-08 13:34:00 99 /min [facility] Systolic blood pressure 2022-11-28 22:30:00 107 mm[Hg] [facility] Diastolic blood pressure 2022-11-28 22:30:00 74 mm[Hg] [facility] Heart rate 2022-11-28 22:30:00 99 /min [facility] Body temperature 2022-11-28 22:30:00 37.11 [place] [facility] Respiratory rate 2022-11-28 22:30:00 18 /min [facility] Body height 2022-11-28 22:30:00 157.5 cm [facility] Body weight 2022-11-28 22:30:00 73.483 kg [facility] BMI 2022-11-28 22:30:00 29.63 kg/m2 [facility] Oxygen saturation in Arterial blood by Pulse oximetry 2022-11-28 22:30:00 98 /min [facility] Systolic blood pressure 2022-09-16 20:56:00 144 mm[Hg] [facility] Diastolic blood pressure 2022-09-16 20:56:00 80 mm[Hg] [facility] Heart rate 2022-09-16 20:56:00 83 /min [facility] Body temperature 2022-09-16 20:56:00 37.11 [place] [facility] Respiratory rate 2022-09-16 20:56:00 20 /min [facility] Oxygen saturation in Arterial blood by Pulse oximetry 2022-09-16 20:56:00 97 /min [facility] Systolic blood pressure 2022-06-26 02:00:00 129 mm[Hg] [facility] Diastolic blood pressure 2022-06-26 02:00:00 71 mm[Hg] [facility] Heart rate 2022-06-26 02:00:00 60 /min [facility] Respiratory rate 2022-06-26 02:00:00 18 /min [facility] Oxygen saturation in Arterial blood by Pulse oximetry 2022-06-26 02:00:00 98 /min [facility] Body temperature 2022-06-26 01:13:00 36.78 [place] [facility] Body height 2022-06-26 01:13:00 157.5 cm [facility] Body weight 2022-06-26 01:13:00 71.668 kg [facility] BMI 2022-06-26 01:13:00 28.90 kg/m2 [facility] Systolic blood pressure 2021-12-07 06:15:00 134 mm[Hg] [facility] Diastolic blood pressure 2021-12-07 06:15:00 72 mm[Hg] [facility] Heart rate 2021-12-07 06:15:00 73 /min [facility] Respiratory rate 2021-12-07 06:15:00 16 /min [facility] Oxygen saturation in Arterial blood by Pulse oximetry 2021-12-07 06:15:00 100 /min [facility] Body temperature 2021-12-07 03:30:00 36.94 [place] [facility] Body height 2021-12-07 03:30:00 157.5 cm [facility] Body weight 2021-12-07 03:30:00 70.308 kg [facility] BMI 2021-12-07 03:30:00 28.35 kg/m2 [facility] Heart rate 2021-03-05 22:21:00 76 /min [facility] Body temperature 2021-03-05 22:21:00 37.17 [place] [facility] Respiratory rate 2021-03-05 22:21:00 16 /min [facility] Body height 2021-03-05 22:21:00 154.9 cm [facility] Body weight 2021-03-05 22:21:00 76.204 kg [facility] BMI 2021-03-05 22:21:00 31.74 kg/m2 [facility] Oxygen saturation in Arterial blood by Pulse oximetry 2021-03-05 22:21:00 97 /min [facility] Systolic blood pressure 2020-12-17 17:14:00 136 mm[Hg] [facility] Diastolic blood pressure 2020-12-17 17:14:00 75 mm[Hg] [facility] Heart rate 2020-12-17 17:14:00 92 /min [facility] Body temperature 2020-12-17 17:14:00 36.61 [place] [facility] Respiratory rate 2020-12-17 17:14:00 20 /min [facility] Body weight 2020-12-17 17:14:00 77.111 kg [facility] BMI 2020-12-17 17:14:00 31.09 kg/m2 [facility] Oxygen saturation in Arterial blood by Pulse oximetry 2020-12-17 17:14:00 95 /min [facility] Systolic blood pressure 2020-10-30 14:30:00 156 mm[Hg] [facility] Diastolic blood pressure 2020-10-30 14:30:00 80 mm[Hg] [facility] Heart rate 2020-10-30 14:30:00 99 /min [facility] Respiratory rate 2020-10-30 14:30:00 20 /min [facility] Oxygen saturation in Arterial blood by Pulse oximetry 2020-10-30 14:30:00 100 /min [facility] Body temperature 2020-10-30 12:32:00 37.56 [place] [facility] Body height 2020-10-30 12:32:00 157.5 cm [facility] Body weight 2020-10-30 12:32:00 77.111 kg [facility] BMI 2020-10-30 12:32:00 31.09 kg/m2 [facility] Systolic blood pressure 2020-09-27 01:05:00 152 mm[Hg] [facility] Diastolic blood pressure 2020-09-27 01:05:00 89 mm[Hg] [facility] Heart rate 2020-09-27 01:05:00 90 /min [facility] Respiratory rate 2020-09-27 01:05:00 16 /min [facility] Oxygen saturation in Arterial blood by Pulse oximetry 2020-09-27 01:05:00 99 /min [facility] Body temperature 2020-09-26 21:20:00 37.28 [place] [facility] Body height 2020-09-26 21:20:00 157.5 cm [facility] Body weight 2020-09-26 21:20:00 74.844 kg [facility] BMI 2020-09-26 21:20:00 30.18 kg/m2 [facility] Systolic blood pressure 2020-09-02 02:30:00 125 mm[Hg] [facility] Diastolic blood pressure 2020-09-02 02:30:00 66 mm[Hg] [facility] Heart rate 2020-09-02 02:30:00 106 /min [facility] Respiratory rate 2020-09-02 02:30:00 18 /min [facility] Oxygen saturation in Arterial blood by Pulse oximetry 2020-09-02 02:30:00 97 /min [facility] Body temperature 2020-09-02 00:02:31 38.5 [place] [facility] Body height 2020-09-01 22:28:00 154.9 cm [facility] Body weight 2020-09-01 22:28:00 74.39 kg [facility] BMI 2020-09-01 22:28:00 30.99 kg/m2 [facility] Oxygen saturation in Arterial blood by Pulse oximetry 2020-07-26 04:45:00 95 /min [facility] Systolic blood pressure 2020-07-26 04:45:00 132 mm[Hg] [facility] Diastolic blood pressure 2020-07-26 04:45:00 77 mm[Hg] [facility] Heart rate 2020-07-26 04:45:00 92 /min [facility] Respiratory rate 2020-07-26 03:00:00 20 /min [facility] Body temperature 2020-07-26 01:24:00 37.72 [place] [facility] Body height 2020-07-26 01:24:00 154.9 cm [facility] Body weight 2020-07-26 01:24:00 77.111 kg [facility] BMI 2020-07-26 01:24:00 32.12 kg/m2 [facility] BP Systolic 2022-10-23 17:07:00 164 mm[Hg] [...] RELEASE OF PHI 2023-04-26 05:01:00 Doctor Unassigned, [place] [facility] AUTHORIZATION FOR RELEASE OF PHI 2023-04-17 05:01:00 Doctor Unassigned, [place] [facility] XR KNEE 3 VW LEFT 2023-02-08 15:25:16 Maricarmen Sanchez [facility] CONSENT/REFUSAL FOR DIAGNOSIS AND TREATMENT 2023-02-08 13:25:51 Doctor Unassigned, [place] [facility] XR HIPS 3 VW LEFT 2022-11-28 23:35:00 John Kamara [facility] CONSENT/REFUSAL FOR DIAGNOSIS AND TREATMENT 2022-11-28 22:22:03 Doctor Unassigned, [place] [facility] LIPASE 2022-09-16 23:46:00 Dannielle Arechiga [facility] TEST, SERUM 2022-09-16 23:46:00 Johnathon Arechiga [facility] COMP. METABOLIC PANEL ([id number]) 2022-09-16 23:46:00 Dannielle Arechiga [facility] CBC WITH DIFF 2022-09-16 23:46:00 Dannielle Arechiga [facility] URINALYSIS 2022-09-16 22:26:00 Dannielle Arechiga [facility] CONSENT/REFUSAL FOR DIAGNOSIS AND TREATMENT 2022-09-16 20:45:39 Doctor Unassigned, [place] [facility] XR CHEST 2 VW 2022-06-26 02:03:35 [facility] FO[facility]+ VW BILATERAL 2022-06-26 02:03:35 Tyshawn Helm [facility] COMP. METABOLIC PANEL ([id number]) 2022-06-26 01:33:00 Ebenezer Helm [facility] CBC WITH DIFF 2022-06-26 01:33:00 [facility] 2022-06-26 01:33:00 [facility] N-TERMIN[facility] PRO-BNP 2022-06-26 01:33:00 Ebenezer Helm [facility] CONSENT/REFUSAL FOR DIAGNOSIS AND TREATMENT 2022-06-26 01:04:33 Doctor Unassigned, [place] [facility] CONSENT/REFUSAL FOR DIAGNOSIS AND TREATMENT 2022-04-10 03:01:56 Doctor Unassigned, [place] [facility] POCT GLUCOSE (AUTOMATED) 2021-12-07 06:58:00 Eladio Monsivais [facility] CT MAXILLOFACIAL/MANDIBLE WO CONTRAST 2021-12-07 05:31:00 Eladio Monsivais [facility] CT HEAD WO CONTRAST 2021-12-07 05:31:00 Eladio Monsivais [facility] XR CHEST 1 VW 2021-12-07 05:28:00 [facility] HAND [facility]+ VW LEFT 2021-12-07 05:28:00 Eladio Monsivais [facility] POCT GLUCOSE (AUTOMATED) 2021-12-07 04:51:00 Eladio Monsivais [facility] URINALYSIS 2021-12-07 04:06:00 Eladio Monsivais [facility] TROPONIN I 2021-12-07 03:58:00 Eladio Monsivais [facility] COMP. METABOLIC PANEL ([id number]) 2021-12-07 03:58:00 Eladio Monsivais [facility] CBC WITH DIFF 2021-12-07 03:58:00 Eladio Monsivais [facility] PROTHROMBIN TIME / INR 2021-12-07 03:58:00 Júnior Monsivais [facility] NOTICE OF PRIVACY PRACTICES 2021-12-07 03:20:07 Doctor Unassigned, [place] [facility] CONSENT/REFUSAL FOR DIAGNOSIS AND TREATMENT 2021-12-07 03:18:34 Doctor Unassigned, [place] [facility] XR ANKLE 3+ VW LEFT 2021-03-05 22:58:39 Vonnie Nathan [facility] CONSENT/REFUSAL FOR DIAGNOSIS AND TREATMENT 2021-03-05 22:02:12 Doctor Unassigned, [place] [facility] XR ABDOMEN ACUTE SERIES 2020-12-17 18:13:15 Do deanne Jeffery [facility] LIPASE 2020-12-17 17:46:00 Hermilo Jeffery [facility] HEPATIC FUNCTION PANEL ([id number]) (ALB,T.PRO,BILI T,BU/BC,ALT,AST,ALK PHOS) 2020-12-17 17:46:00 Hermilo Jeffery [facility] BASIC METABOLIC PANEL (NA, K, CL, CO2, GLUCOSE, BUN, CREATININE, CA) 2020-12-17 17:46:00 Hermilo Jeffery [facility] CBC WITH DIFF 2020-12-17 17:46:00 Hermilo Jeffery [facility] PROTHROMBIN TIME / INR 2020-12-17 17:46:00 Galindo Jeffery [facility] ACTIVATED PARTIAL THRMPLAS RUBIO 2020-12-17 17:46:00 Hermilo Jeffery [facility] URINALYSIS 2020-12-17 17:46:00 Hermilo Jeffery [facility] COVID-19 (ID NOW RAPID TESTING) 2020-12-17 17:46:00 Hermilo Jeffery [facility] NOTICE OF PRIVACY PRACTICES 2020-12-17 17:07:59 Doctor Unassigned, [place] [facility] CONSENT/REFUSAL FOR DIAGNOSIS AND TREATMENT 2020-12-17 17:07:25 Doctor Unassigned, [place] [facility] CT CHEST PULMONARY ANGIOGRAM 2020-10-30 14:24:45 John Kamara [facility] POCT TEST 2020-10-30 14:14:00 Truong Kamara [facility] XR CHEST 1 VW 2020-10-30 13:04:14 Kt Ratliff [facility] TEST, SERUM 2020-10-30 12:49:00 Faisal Ratliff [facility] TROPONIN I 2020-10-30 12:49:00 Kt Ratliff [facility] HEPATIC FUNCTION PANEL ([id number]) (ALB,T.PRO,BILI T,BU/BC,ALT,AST,ALK PHOS) 2020-10-30 12:49:00 Kt Ratliff [facility] BASIC METABOLIC PANEL (NA, K, CL, CO2, GLUCOSE, BUN, CREATININE, CA) 2020-10-30 12:49:00 Kt Ratliff [facility] CBC WITH DIFF 2020-10-30 12:49:00 [facility] / INR 2020-10-30 12:49:00 Sukumar Ratliff [facility] D-DIMER 2020-10-30 12:49:00 Kt Ratliff [facility] ACTIVATED PARTIAL THRMPLAS RUBIO 2020-10-30 12:49:00 Kt Ratliff [facility] RAPID STREP SCREEN FOR GROUP A 2020-10-30 12:49:00 Kt Ratliff [facility] ADC,CLC OR LCC ONLY - INFLUENZA A & B DIRECT ANTIGEN 2020-10-30 12:49:00 Kt Ratliff [facility] COVID-19 (ID NOW RAPID TESTING) 2020-10-30 12:49:00 Kt Ratliff [facility] NOTICE OF PRIVACY PRACTICES 2020-10-30 12:21:16 Doctor Unassigned, [place] [facility] CONSENT/REFUSAL FOR DIAGNOSIS AND TREATMENT 2020-10-30 12:21:04 Doctor Unassigned, [place] [facility] URINALYSIS 2020-09-26 22:51:00 Carie Chanel [facility] XR CHEST 1 VW 2020-09-26 22:03:02 Carie Chanel [facility] LIPASE 2020-09-26 21:51:00 Carie Chanel [facility] TROPONIN I 2020-09-26 21:51:00 Carie Chanel [facility] COMP. METABOLIC PANEL ([id number]) 2020-09-26 21:51:00 Carie Chanel [facility] CBC WITH DIFF 2020-09-26 21:51:00 Carie Chanel [facility] N-TERMINAL PRO-BNP 2020-09-26 21:51:00 Carie Chanel [facility] CONSENT/REFUSAL FOR DIAGNOSIS AND TREATMENT 2020-09-26 21:08:31 Doctor Unassigned, [place] [facility] CT CHEST PULMONARY ANGIOGRAM 2020-09-02 02:01:09 Luisito Chavis [facility] D-DIMER 2020-09-02 00:29:00 Luis[facility] XR CHEST 1 VW 2020-09-01 23:08:31 Luisito Chavis [facility] POCT TEST 2020-09-01 22:52:00 Luisito Chavis [facility] BLOOD CULTURE SCREEN 2020-09-01 22:47:00 Luisito Chavis [facility] COMP. METABOLIC PANEL ([id number]) 2020-09-01 22:47:00 Luisito Chavis [facility] CBC WITH DIFF 2020-09-01 22:47:00 Luisito Chavis [facility] URINALYSIS 2020-09-01 22:47:00 Luisito Chavis [facility] ADC,CLC OR LCC ONLY - INFLUENZA A & B DIRECT ANTIGEN 2020-09-01 22:47:00 Luisito Chavis [facility] N-TERMINAL PRO-BNP 2020-09-01 22:47:00 Luisito Chavis [facility] LACTIC ACID WHOLE BLOOD 2020-09-01 22:47:00 Me hussein Chavis [facility] COVID-19 (ID NOW RAPID TESTING) 2020-09-01 22:47:00 Luisito Chavis [facility] NOTICE OF PRIVACY PRACTICES 2020-09-01 22:31:34 Doctor Unassigned, [place] [facility] CONSENT/REFUSAL FOR DIAGNOSIS AND TREATMENT 2020-09-01 22:18:34 Doctor Unassigned, [place] [facility] CT ABDOMEN PELVIS W CONTRAST 2020-07-26 04:10:32 Yolanda Bass [facility] LIPASE 2020-07-26 02:16:00 Yolanda Bass [facility] COMP. METABOLIC PANEL ([id number]) 2020-07-26 02:16:00 Yolanda Bass [facility] CBC WITH DIFF 2020-07-26 02:16:00 Yolanda Bass [facility] URINALYSIS 2020-07-26 02:16:00 Yolanda Bass [facility] EKG-12 LEAD 2020-07-26 02:00:35 Kali Wigamal [facility] NOTICE OF PRIVACY PRACTICES 2020-07-26 00:35:41 Doctor Unassigned, [place] [facility] CONSENT/REFUSAL FOR DIAGNOSIS AND TREATMENT 2020-07-26 00:35:21 Doctor Unassigned, [place] [facility] REFERRAL- REQUEST/RESPONSE 2020-07-05 05:01:00 Doctor Unassigned, [place] [facility] Plan of Care Planned Activity Planned Date Details Comments Source Goal Plan of Care Note [code = 83247-4] Goal Plan of Care Note [code = 49370-1] Goal Plan of Care Note [code = 81495-8] Goal Plan of Care Note [code = 83673-4] Goal Plan of Care Note [code = 11489-0] Goal Plan of Care Note [code = 26956-3] Goal Plan of Care Note [code = 06785-0] Goal Plan of Care Note [code = 22516-1] Goal Plan of Care Note [code = 11672-2] Goal Plan of Care Note [code = 34880-1] Goal Plan of Care Note [code = 27371-2] Goal Plan of Care Note [code = 24027-9] Goal Plan of Care Note [code = 04650-9] Goal Plan of Care Note [code = 25070-5] Goal Plan of Care Note [code = 69749-1] Goal Plan of Care Note [code = 09904-5] Goal Plan of Care Note [code = 89606-5] Goal Plan of Care Note [code = 59583-1] Goal Plan of Care Note [code = 04791-0] Goal Plan of Care Note [code = 03071-7] Goal Plan of Care Note [code = 25425-7] Goal Plan of Care Note [code = 76401-4] Goal Plan of Care Note [code = 36326-5] Goal Plan of Care Note [code = 97240-8] Goal Plan of Care Note [code = 41140-5] Goal Plan of Care Note [code = 97611-8] Goal Plan of Care Note [code = 53866-4] Goal Plan of Care Note [code = 54553-6] Goal Plan of Care Note [code = 03283-9] Goal Plan of Care Note [code = 51513-3] Goal Plan of Care Note [code = 46118-8] Goal Plan of Care Note [code = 13546-3] Goal Plan of Care Note [code = 05449-2] Goal Plan of Care Note [code = 27762-2] Goal Plan of Care Note [code = 58594-8] Goal Plan of Care Note [code = 45204-9] Goal Plan of Care Note [code = 83856-0] Goal Plan of Care Note [code = 03755-3] Goal Plan of Care Note [code = 42868-5] Goal Plan of Care Note [code = 87465-8] Goal Plan of Care Note [code = 47492-3] Goal Plan of Care Note [code = 15216-9] Goal Plan of Care Note [code = 89949-3] Goal Plan of Care Note [code = 82292-0] Goal Plan of Care Note [code = 67656-9] Goal Plan of Care Note [code = 31275-4] Goal Plan of Care Note [code = 12835-0] Goal Plan of Care Note [code = 72187-9] Goal Plan of Care Note [code = 06410-2] Goal Plan of Care Note [code = 88393-0] Goal Plan of Care Note [code = 93052-2] Goal Plan of Care Note [code = 32179-0] Goal Plan of Care Note [code = 84695-6] Goal Plan of Care Note [code = 04592-1] Goal Plan of Care Note [code = 82565-1] Goal Plan of Care Note [code = 72561-5] Goal Plan of Care Note [code = 03076-3] Goal Plan of Care Note [code = 57349-0] Goal Plan of Care Note [code = 25791-6] Goal Plan of Care Note [code = 16746-9] Goal Plan of Care Note [code = 00987-7] Goal Plan of Care Note [code = 52702-9] Goal Plan of Care Note [code = 11783-1] Goal Plan of Care Note [code = 12422-7] Goal Plan of Care Note [code = 78195-0] Goal Plan of Care Note [code = 45837-1] Goal Plan of Care Note [code = 71033-5] Goal Plan of Care Note [code = 69426-9] Goal Plan of Care Note [code = 00225-4] Goal Plan of Care Note [code = 62059-2] Goal Plan of Care Note [code = 74231-6] Goal Plan of Care Note [code = 72548-6] Goal Plan of Care Note [code = 03118-0] Goal Plan of Care Note [code = 55702-5] Goal Plan of Care Note [code = 58274-5] Goal Plan of Care Note [code = 55552-1] Goal Plan of Care Note [code = 49199-5] Goal Plan of Care Note [code = 21910-4] Goal Plan of Care Note [code = 20665-9] Goal Plan of Care Note [code = 09603-1] Goal Plan of Care Note [code = 37129-7] Goal Plan of Care Note [code = 08762-9] Goal Plan of Care Note [code = 42272-2] Goal Plan of Care Note [code = 36073-5] Goal Plan of Care Note [code = 52320-8] Goal Plan of Care Note [code = 24973-4] Goal Plan of Care Note [code = 94091-8] Goal Plan of Care Note [code = 69586-6] Goal Plan of Care Note [code = 84573-0] Goal Plan of Care Note [code = 48432-8] Goal Plan of Care Note [code = 31433-4] Goal Plan of Care Note [code = 08387-7] Goal Plan of Care Note [code = 23938-5] Goal Plan of Care Note [code = 91110-7] Goal Plan of Care Note [code = 37592-2] Goal Plan of Care Note [code = 19004-2] Goal Plan of Care Note [code = 11269-3] Goal Plan of Care Note [code = 81653-8] Goal Plan of Care Note [code = 06826-3] Goal Plan of Care Note [code = 52432-8] Goal Plan of Care Note [code = 88041-2] Goal Plan of Care Note [code = 52703-2] Goal Plan of Care Note [code = 67907-7] Goal Plan of Care Note [code = 33396-2] Goal Plan of Care Note [code = 99297-1] Goal Plan of Care Note [code = 24077-4] Goal Plan of Care Note [code = 84217-7] Goal Plan of Care Note [code = 69405-8] Goal Plan of Care Note [code = 00920-8] Goal Plan of Care Note [code = 56833-4] Goal Plan of Care Note [code = 34339-3] Goal Plan of Care Note [code = 81589-1] Goal Plan of Care Note [code = 09931-0] Goal Plan of Care Note [code = 78806-4] Goal Plan of Care Note [code = 95395-9] Goal Plan of Care Note [code = 11203-9] Goal Plan of Care Note [code = 48962-9] Goal Plan of Care Note [code = 31843-9] Goal Plan of Care Note [code = 97426-4] Goal Plan of Care Note [code = 56863-5] Goal Plan of Care Note [code = 97002-9] Goal Plan of Care Note [code = 38686-2] Goal Plan of Care Note [code = 78665-1] Goal Plan of Care Note [code = 69314-4] Goal Plan of Care Note [code = 12602-9] Goal Plan of Care Note [code = 90207-0] Goal Plan of Care Note [code = 79392-3] Goal Plan of Care Note [code = 41351-4] Goal Plan of Care Note [code = 57395-8] Goal Plan of Care Note [code = 76854-6] Goal Plan of Care Note [code = 81955-6] Goal Plan of Care Note [code = 58207-7] Goal Plan of Care Note [code = 95942-3] Goal Plan of Care Note [code = 72034-5] Goal Plan of Care Note [code = 61659-9] Goal Plan of Care Note [code = 02105-6] Goal Plan of Care Note [code = 90654-0] Goal Plan of Care Note [code = 16405-8] Goal Plan of Care Note [code = 52084-7] Goal Plan of Care Note [code = 87565-8] Goal Plan of Care Note [code = 39916-7] Goal Plan of Care Note [code = 04851-4] Goal Plan of Care Note [code = 00873-5] Goal Plan of Care Note [code = 90562-4] Goal Plan of Care Note [code = 80877-4] Goal Plan of Care Note [code = 67147-6] Goal Plan of Care Note [code = 49766-5] Goal Plan of Care Note [code = 94254-6] Goal Plan of Care Note [code = 14387-9] Goal Plan of Care Note [code = 05278-9] Goal Plan of Care Note [code = 10877-8] Goal Plan of Care Note [code = 80060-9] Goal Plan of Care Note [code = 91065-4] Goal Plan of Care Note [code = 56558-0] Goal Plan of Care Note [code = 38476-5] Goal Plan of Care Note [code = 85992-1] Goal Plan of Care Note [code = 03721-9] Goal Plan of Care Note [code = 93152-2] Goal Plan of Care Note [code = 09512-0] Goal Plan of Care Note [code = 68605-3] Goal Plan of Care Note [code = 01800-3] Goal Plan of Care Note [code = 01179-3] Goal Plan of Care Note [code = 75572-7] Goal Plan of Care Note [code = 73218-8] Goal Plan of Care Note [code = 75973-8] Goal Plan of Care Note [code = 89083-7] Goal Plan of Care Note [code = 53501-3] Goal Plan of Care Note [code = 73393-9] Goal Plan of Care Note [code = 78242-4] Goal Plan of Care Note [code = 90829-8] Goal Plan of Care Note [code = 88148-6] Goal Plan of Care Note [code = 92535-2] Goal Plan of Care Note [code = 39489-6] Goal Plan of Care Note [code = 30927-7] Goal Plan of Care Note [code = 28988-4] Goal Plan of Care Note [code = 03626-7] Goal Plan of Care Note [code = 80181-0] Goal Plan of Care Note [code = 31416-2] Goal Plan of Care Note [code = 36222-0] Goal Plan of Care Note [code = 55310-0] Goal Plan of Care Note [code = 02898-0] Goal Plan of Care Note [code = 37371-5] Goal Plan of Care Note [code = 55459-8] Goal Plan of Care Note [code = 52693-3] Goal Plan of Care Note [code = 89640-5] Goal Plan of Care Note [code = 61351-9] Goal Plan of Care Note [code = 28198-4] Goal Plan of Care Note [code = 78914-4] Goal Plan of Care Note [code = 80387-3] Goal Plan of Care Note [code = 10465-8] Goal Plan of Care Note [code = 22086-3] Goal Plan of Care Note [code = 92554-6] Goal Plan of Care Note [code = 09088-9] Goal Plan of Care Note [code = 72024-9] Goal Plan of Care Note [code = 62081-9] Goal Plan of Care Note [code = 25072-1] Goal Plan of Care Note [code = 72439-7] Goal Plan of Care Note [code = 29262-8] Goal Plan of Care Note [code = 56157-3] Goal Plan of Care Note [code = 06994-6] Goal Plan of Care Note [code = 39223-8] Goal Plan of Care Note [code = 94240-7] Goal Plan of Care Note [code = 29903-2] Goal Plan of Care Note [code = 35280-4] Goal Plan of Care Note [code = 87312-6] Goal Plan of Care Note [code = 25374-7] Goal Plan of Care Note [code = 86287-6] Goal Plan of Care Note [code = 05550-0] Goal Plan of Care Note [code = 59953-5] Goal Plan of Care Note [code = 40694-0] Goal Plan of Care Note [code = 20767-2] Goal Plan of Care Note [code = 38646-9] Goal Plan of Care Note [code = 32437-2] Goal Plan of Care Note [code = 01185-0] Goal Plan of Care Note [code = 83620-3] Goal Plan of Care Note [code = 07624-1] Goal Plan of Care Note [code = 16029-9] Goal Plan of Care Note [code = 49139-6] Goal Plan of Care Note [code = 11339-2] Goal Plan of Care Note [code = 54456-5] Goal Plan of Care Note [code = 13468-0] Goal Plan of Care Note [code = 25221-3] Goal Plan of Care Note [code = 49419-1] Goal Plan of Care Note [code = 74941-4] Encounters Start Date/Time End Date/Time Encounter Type Admission Type Attending [facility] Care Department Encounter ID Source 2023-12-24 10:45:00 2023-12-24 10:45:00 Outpatient PREPHILIPP DALY PATTERSON [id number] [facility] 2023-12-17 16:47:51 2023-12-17 16:47:51 Outpatient SFA SFA [id number] 0312 Óscar Zavala 2023-12-11 14:22:41 2023-12-11 14:22:41 Outpatient SFA SFA [id number] Óscar Zavala 2023-11-18 11:00:00 2023-11-18 11:00:00 Outpatient PREZADALY Wang [id number] [facility] 2023-10-17 00:00:00 2023-10-17 00:00:00 Outpatient PREZAS DALY PATTERSON [id number] [facility] 2023-10-16 00:00:00 2023-10-16 00:00:00 Outpatient PREZAS DALY PATTERSON [id number] [facility] 2023-10-15 00:00:00 2023-10-15 00:00:00 Outpatient PREZADALY Wang [id number] [facility] 2023-10-14 09:45:00 2023-10-14 09:45:00 Outpatient THEO PATTERSON [id number] [facility] 2023-10-14 08:45:00 2023-10-14 08:45:00 Outpatient PREZAKathleen DALY PATTERSON [id number] [facility] 2023-08-14 11:42:13 2023-08-14 11:42:13 Outpatient SFA SFA [id number] Óscar Rose Lucas 2023-07-09 15:49:57 2023-07-09 15:49:57 Outpatient SFA SFA 1003 Óscar Zavala 2023-04-26 00:00:00 2023-04-26 00:00:00 Orders Only Doctor Unassigned, [place] [facility] 1.2.840.114 350.1.13.10 4.2.7.2.686 [id number] [facility] 2023-04-23 10:17:21 2023-04-23 10:17:21 Outpatient [facility] [id number] Óscar oRse Lucas 2023-04-17 00:00:00 2023-04-17 00:00:00 Orders Only Doctor Unassigned, [place] [facility] 1.2.840.114 350.1.13.10 4.2.7.2.686 [id number] [facility] 2023-02-08 08:35:00 2023-02-08 12:02:00 Emergency X Maricarmen SANCHEZ [facility] ERT [id number] [facility] 2023-02-08 08:35:00 2023-02-08 12:02:00 Emergency Maricarmen Sanchez [facility] 1.2.840.114 350.1.13.10 4.2.7.2.686 [id number] [facility] 2023-02-08 00:00:00 2023-02-08 00:00:00 Patient Secure Msg Doctor Unassigned, [place] [facility] 1.2.840.114 350.1.13.10 4.2.7.2.686 [id number] [facility] 2022-12-17 14:21:59 2022-12-17 14:21:59 Outpatient [facility] [id number] Óscar Zavala 2022-11-28 16:34:00 2022-11-28 18:21:00 Emergency X JOHN KAMARA [facility] ERT [id number] [facility] 2022-11-28 16:34:00 2022-11-28 18:21:00 Emergency John Kamara [facility] 1.2.840.114 350.1.13.10 4.2.7.2.686 [id number] [facility] 2022-11-28 13:54:29 2022-11-28 13:54:29 Outpatient SFA [facility] [id number] Óscar Zavala 2022-11-08 10:17:59 2022-11-08 10:17:59 Outpatient SFA [facility] 2 Óscar Rose Lucas 2022-10-30 08:40:52 2022-10-30 08:40:52 Outpatient SFA [facility] [id number] Óscar Rose Neeses 2022-10-23 17:01:52 2022-10-23 17:01:52 Outpatient [facility] [id number] Óscar Rose Neeses 2022-10-23 00:00:00 2022-10-23 00:00:00 Outpatient Visit [id number] 2bae-45d0 -5mk3-650 [id number] vicky-45d0-9 aa1-70302z d0ef99 2022-09-16 14:58:00 2022-09-16 19:08:00 Emergency DANNIELLE MONTIEL [facility] ERT [id number] [facility] 2022-09-16 14:58:00 2022-09-16 19:08:00 Emergency Dannielle Arechiga [facility] 1.2.840.114 350.1.13.10 4.2.7.2.686 [id number] [facility] 2022-08-15 10:49:03 2022-08-15 10:49:03 Outpatient SFA [facility] [id number] Óscar Zavala 2022-07-02 00:00:00 2022-07-02 00:00:00 Outpatient Visit [id number] [id number]-3c03 -7fy7-511 [id number] l8o-1w00-3 fa8-5933fc 91e4b7 2022-06-25 20:19:00 2022-06-25 21:54:00 Emergency X LYN EBENEZER [facility] ERT [id number] [facility] 2022-06-25 20:19:00 2022-06-25 21:54:00 Emergency Ebenezer Helm A [facility] 1..840.114 350.1.13.10 4.2.7.2.686 [id number] [facility] 2022-06-05 00:00:00 2022-06-05 00:00:00 Outpatient Visit [id number] [id number] -8eaf-d0a [id number] 2m5l82kk-t 527-4819-8 eaf-d0acf8 31c2b3 2022-05-07 00:00:00 2022-05-07 00:00:00 Outpatient Visit p39v1ixa- 6569-5746 -9565-dac [id number] [id number] c91n7xcy-0 740-4024-9 565-dac46b 95debf 2022-04-09 22:07:00 2022-04-09 22:08:00 Emergency X RENETTA COE [facility] ERT [id number] [facility] 2022-04-09 22:07:00 2022-04-09 22:08:00 Emergency Jessie [facility] 1..840.114 350.1.13.10 4.2.7.2.686 [id number] [facility] 2021-12-06 21:21:00 2021-12-07 01:08:00 Emergency ELADIO MAYO [facility] ERT [id number] [facility] 2021-12-06 21:21:00 2021-12-07 01:08:00 Emergency Eladio Monsivais [facility] 1..840.114 350.1.13.10 4.2.7.2.686 [id number] [id number] [facility] 2021-06-23 22:09:00 2021-06-23 22:10:00 Emergency Yolanda Bass [facility] 1.2.840.114 350.1.13.10 4.2.7.2.686 [id number] [facility] 2021-06-23 21:42:00 2021-06-23 21:42:00 Emergency X YOLANDA BASS [facility] ERT [id number] [facility] 2021-03-05 17:25:00 2021-03-05 18:39:00 Emergency Vonnie Nathan [facility] 1.2.840.114 350.1.13.10 4.2.7.2.686 [id number] [facility] 2021-03-05 17:25:00 2021-03-05 18:39:00 Emergency X VONNIE NATHAN [facility] ERT [id number] [facility] 2020-12-17 11:09:00 2020-12-17 12:55:00 Emergency Hermilo Jeffery [facility] 1.2.840.114 350.1.13.10 4.2.7.2.686 [id number] [id number] [facility] 2020-12-17 11:09:00 2020-12-17 12:55:00 Emergency X HERMILO JEFFERY [facility] ERT [id number] [facility] 2020-10-30 06:26:00 2020-10-30 09:25:00 Emergency Kt Ratliff [facility] 1.2.840.114 350.1.13.10 4.2.7.2.686 [id number] [facility] 2020-10-30 06:22:00 2020-10-30 06:22:00 Emergency X [facility] ERT [id number] [facility] 2020-09-26 15:22:00 2020-09-26 19:20:00 Emergency Carie Chanel [facility] 1.2.840.114 350.1.13.10 4.2.7.2.686 [id number] [facility] 2020-09-26 15:22:00 2020-09-26 19:20:00 Emergency X CARIE CHANEL [facility] ERT [id number] [facility] 2020-09-01 16:25:00 2020-09-01 20:55:00 Emergency Luisito Chavis [facility] 1.2840.114 350.1.13.10 4.2.7.2.686 [id number] [id number] [facility] 2020-09-01 16:25:00 2020-09-01 16:25:00 Emergency X LUISITO CHAVIS [facility] ERT [id number] [facility] 2020-09-01 00:00:00 2020-09-01 00:00:00 Nurse Triage Ly Yepez [facility] 1.2.840.114 350.1.13.10 4.2.7.2.686 [id number] [facility] 2020-08-08 00:00:00 2020-08-08 00:00:00 Letter (Out) Mckayla Masterson [facility] 1.2.840.114 350.1.13.10 4.2.7.2.686 [id number] [facility] 2020-07-25 20:28:00 2020-07-25 23:58:00 Emergency PitademondchichoYolanda Kathleen [facility] 1.2.840.114 350.1.13.10 4.2.7.2.686 [id number] [id number] [facility] 2020-07-25 19:37:00 2020-07-25 19:37:00 Emergency X [facility] ERT [id number] [facility] 2020-07-05 00:00:00 2020-07-05 00:00:00 Orders Only Doctor Unassigned, [place] [facility] 1.2.840.114 350.1.13.10 4.2.7.2.686 [id number] [facility] 2018-07-15 08:45:00 2018-07-15 08:45:00 Outpatient [facility] [id number] [facility] 2018-01-07 14:30:00 2018-01-07 14:30:00 Outpatient [facility] [id number] [facility] Results Test Description Test Time Test Comments Results Result Co mments Source COMPREHENSIVE METABOLIC [id number] 10:46:21* Test Item Value Reference Range Interpretation Comme nts GLUCOSE (test code = 2217) 173 MG/DL 70-99 H BUN (test code = 2208) 7 MG/DL 6-20 CREATININE (test code = 2214) 0.56 MG/DL 0.60-1.30 L eGFR (2020 CKD-EPI) (test code = 15118) 110 ML/MIN/1.73 >60 CALC BUN/CREAT (test code [...] 5-40 UNLESS OTHERWISE INDICATED, ALL TESTING [facility]FORMED [facility] [address] [place] [address] MALTER OPERATOR: KEVIN FRANCO M.D. CLIA NUMBER [id number] [facility] [place]. [id number] HEMOGLOBIN [id number] 07:47:20* Test Item Value Reference Range Interpretation Comme [facility] HEMOGLOBIN A1c (test code = 71374) 12.0 % 4.2-5.6 H [employer] GUIDELINES FOR HGB A1C: [...] Test Item Value Reference Range Interpretation Comme [facility] POCT GLU (test code = 4533357006) 292 mg/dL 70-110 H Lab Interpretation (test cod e = 31007-6) Abnormal [facility] GLUCOSE (AUTOMATED)2021-12-07 04:55:44* Test Item Value Reference Range Interpretation Comme [facility] POCT GLU (test code = 6800069716) 440 mg/dL 70-110 H Lab Interpretation (test cod e = 66145-8) Abnormal [facility]. METABOLIC PANEL (79982)2021-12-07 04:40:58* Test Item Value Reference Range Interpretation Comme nts NA (test code = 4160986909) 133 mmol/L 135-145 L K (test code = 8193389732) 4.2 mmol/L 3.5-5.0 CL (test code = 7504669045) 97 mmol/L 98-108 L CO2 TOTAL (test code = 0137912996) 25 mmol/L 23-31 AGAP (test code = 4831881690) 2-16 BUN (test code = 4550431062) 11 mg/dL 7-23 GLUCOSE (test code = 0031925598) 519 mg/dL 70-110 HH CREATININE (test code = 7167256238) 0.65 mg/dL 0.50-1.04 TOTAL BILI (test code = 9998706568) 0.4 mg/dL 0.1-1.1 CALCIUM (test code = 6046892703) 8.8 mg/dL 8.6-10.6 T PROTEIN (test code = 2949006946) 6.9 g/dL 6.3-8.2 ALBUMIN (test code = 1746564165) 3.9 g/dL 3.5-5.0 ALK PHOS (test code = 5668040100) 113 U/L 34-122 ALTv (test code = 1742-6) 25 U/L 5-35 AST(SGOT) (test code = 4622857993) 32 U/L 13-40 eGFR (test code = 9518056879) mL/min/1.73m2 MATTHEW (test code = MATTHEW) Association [...] imaging tests). Lab Interpretation (test code = 69680-6) [id number] 04:33:26* Test Item Value Reference Range Interpretation Comments TROPONIN I (test code = 6133392637) <0.012 See_Comment [Automated message] The system which [...] of biotin. Lab Interpretation (test code = 42048-7) Normal [facility] / [id number] 04:13:03* Test Item Value Reference Range Interpretation Comme nts PROTIME PATIENT (test code = 5964-2) See_Comment [Automated [employer] ge] The system which generated this result transmitted reference range: 12.0 - 14.7 Seconds. The reference range was not used to interpret this result as normal/abnormal. INR (test code = 6301-6) Normal INR <1.1; Warfarin Therapeutic range 2.0 to 3.0 or 2.5 to 3.5, depending upon the indications. Lab Interpretation (test code = 71679-4) Normal [facility] WITH [id number] 04:06:26* Test Item Value Reference Range Interpretation Comme nts WBC (test code = 6690-2) See_Comment [Automated messa ge] The system which generated this result transmitted reference range: 4.30 - 11.10 10*3/?L. The reference range was not used to interpret this result as normal/abnormal. RBC (test code = 789-8) See_Comment [Automated [employer] ge] The system which generated this result [...] 33.3 g/dL 31.6-35.1 RDW-SD (test code = 86247-2) 39.2 fL 39.0-49.9 RDW-CV (test code = 788-0) 12.2 % 12.0-15.5 PLT (test code = 777-3) See_Comment [Automated [employer] ge] The system which generated this result transmitted reference range: 166 - 358 10*3/?L. The reference range was not used to interpret this result as normal/abnormal. MPV (test code = 60691-0) 10.4 fL 9.5-12.9 NRBC/100 WBC (test code = 3970053466) See_Comment [Automated me ssage] The system which generated this result transmitted reference range: 0.0 - 10.0 /100 WBCs. The reference range was not used to interpret this result as normal/abnormal. NRBC x10^3 (test code = 5195404842) <0.01 See_Comment [Automated me ssage] The system which generated this result transmitted reference range: 10*3/?L. The reference range was not used to interpret this result as normal/abnormal. GRAN MAT (NEUT) % (test code = 770-8) 45.7 % IMM GRAN % (test code = 2523651056) 0.50 % LYMPH % (test code = 736-9) 38.7 % MONO % (test code = 5905-5) 10.4 % EOS % (test code = 713-8) 4.1 % BASO % (test code = 706-2) 0.6 % GRAN MAT x10^3(ANC) (test code = 6457845177) 3.00 10*3/uL 1.88-7.09 IMM GRAN x10^3 (test code = 8004070176) 0.03 10*3/uL 0.00-0.06 LYMPH x10^3 (test code = 731-0) 2.54 10*3/uL 1.32-3.29 MONO x10^3 (test code = 742-7) 0.68 10*3/uL 0.33-0.92 EOS x10^3 (test code = 711-2) 0.27 10*3/uL 0.03-0.39 BASO x10^3 (test code = 704-7) 0.04 10*3/uL 0.01-0.07 [facility], [id number] 00:00:00* Test Item Value Reference Range Interpretation Comme nts CULTURE, URINE (test code = 07034) SPECIMEN NUMBER: [id number] CULTURE, [id number] 00:00:00* Test Item Value Reference Range Interpretation Comme nts CULTURE, URINE (test code = 26681) SPECIMEN NUMBER: [id number] CULTURE, [id number] 00:00:00* Test Item Value Reference Range Interpretation Comme nts CULTURE, URINE (test code = 01920) SPECIMEN NUMBER: [id number] CULTURE, [id number] 00:00:00* Test Item Value Reference Range Interpretation Comme nts CULTURE, URINE (test code = 87444) SPECIMEN NUMBER: [id number] CULTURE, [id number] 00:00:00* Test Item Value Reference Range Interpretation Comme nts CULTURE, URINE (test code = 24169) SPECIMEN NUMBER: [id number] CULTURE, [id number] 00:00:00* Test Item Value Reference Range Interpretation Comme nts CULTURE, URINE (test code = 72631) SPECIMEN NUMBER: [id number] CULTURE, [id number] 00:00:00* Test Item Value Reference Range Interpretation Comme nts CULTURE, URINE (test code = 95381) SPECIMEN NUMBER: [id number] VAGINAL PATHOGENS DNA [id number] 00:00:00* Test Item Value Reference Range Interpretation Comme nts KASSI SPECIES (test code = 82022) NEGATIVE G. VAGINALIS (test code = 00134) POSITIVE T. VAGINALIS (test code = 83887) NEGATIVE VAGINAL PATHOGENS DNA [id number] 00:00:00* Test Item Value Reference Range Interpretation Comme nts KASSI SPECIES (test code = 04975) NEGATIVE G. VAGINALIS (test code = 31508) POSITIVE T. VAGINALIS (test code = 89704) NEGATIVE VAGINAL PATHOGENS DNA [id number] 00:00:00* Test Item Value Reference Range Interpretation Comme nts KASSI SPECIES (test code = 68385) NEGATIVE G. VAGINALIS (test code = 51880) POSITIVE T. VAGINALIS (test code = 60372) NEGATIVE VAGINAL PATHOGENS DNA [id number] 00:00:00* Test Item Value Reference Range Interpretation Comme nts KASSI SPECIES (test code = 61402) NEGATIVE G. VAGINALIS (test code = 57199) POSITIVE T. VAGINALIS (test code = 03911) NEGATIVE VAGINAL PATHOGENS DNA [id number] 00:00:00* Test Item Value Reference Range Interpretation Comme nts KASSI SPECIES (test code = 33451) NEGATIVE G. VAGINALIS (test code = 36511) POSITIVE T. VAGINALIS (test code = 22867) NEGATIVE VAGINAL PATHOGENS DNA [id number] 00:00:00* Test Item Value Reference Range Interpretation Comme nts KASSI SPECIES (test code = 28782) NEGATIVE G. VAGINALIS (test code = 39947) POSITIVE T. VAGINALIS (test code = 51209) NEGATIVE VAGINAL PATHOGENS DNA [id number] 00:00:00* Test Item Value Reference Range Interpretation Comme nts KASSI SPECIES (test code = 95047) NEGATIVE G. VAGINALIS (test code = 95473) POSITIVE T. VAGINALIS (test code = 24596) NEGATIVE DIAG MAMM BILATERAL HERNANDEZ CAD [id number] 08:00:36 Name: Stew : 1970 Sex: F - DIAG MAMM BILATERAL HERNANDEZ CAD DIGITALBILATERAL DIGITAL DIAGNOSTIC MAMMOGRAM 3D/2D WITH CAD: 04/06/2021LINICAL: Abnormal Report from CT scan. Digital breast tomosynthesis was performed in addition to routine CC and MLO views. Current mammographic images were evaluated by [employer] CAD (computer-aided detection) software. Comparison is made to exam dated 04/25/2015 mammogram - [facility]. The tissue of both breasts [...] to exam dated 04/25/2015 mammogram - [facility]. Real-time ultrasound of both breasts and both axilla and clinical breast exam were performed. No abnormalities were seen sonographically in either breast or either axilla. Clinical breast exam was unremarkable.IMPRESSION: NEGATIVE There is no sonographic evidence of malignancy. Resume annual screening mammography in one year. Carmel Hensley M.D. dm/:04/07/2021 08:00:36 Entry: cheikh - 04/12/2021 08:18:04Imaging Technologist: Bonnie CALABRESE, [facility]- FWletter sent: BIRADS 1-2 Combo FU Letter Mammogram BI-RADS: 0 Incomplete: Additional Imaging Evaluation Needed Ultrasound BI-RADS: 1 NegativeBREAST ULTRASOUND [id number] 08:00:36 Name: Stew : 1970 Sex: F - DIAG MAMM BILATERAL HERNANDEZ CAD DIGITALBILATERAL DIGITAL DIAGNOSTIC MAMMOGRAM 3D/2D WITH CAD: 04/06/2021LINICAL: Abnormal Report from CT scan. Digital breast tomosynthesis was performed in addition to routine CC and MLO views. Current mammographic images were evaluated by [employer] CAD (computer-aided detection) software. Comparison is made to exam dated 04/25/2015 mammogram - [facility]. The tissue of both breasts [...] to exam dated 04/25/2015 mammogram - [facility]. Real-time ultrasound of both breasts and both axilla and clinical breast exam were performed. No abnormalities were seen sonographically in either breast or either axilla. Clinical breast exam was unremarkable.IMPRESSION: NEGATIVE There is no sonographic evidence of malignancy. Resume annual screening mammography in one year. Carmel Hensley M.D. dm/:04/07/2021 08:00:36 Entry: - 108:18:04Imaging Technologist: Bonnie CALABRESE, [facility]- FWletter sent: BIRADS 1-2 Combo FU Letter Mammogram BI-RADS: 0 Incomplete: Additional Imaging Evaluation Needed Ultrasound BI-RADS: 1 NegativeH. PYLORI (BREATH)2021-03-04 00:00:00* Test Item Value Reference Range Interpretation Comme nts H. PYLORI (BREATH) (test cod e = 86941) POSITIVE H. PYLORI (BREATH)2021-03-04 00:00:00* Test Item Value Reference Range Interpretation Comme nts H. PYLORI (BREATH) (test cod e = 45571) POSITIVE H. PYLORI (BREATH)2021-03-04 00:00:00* Test Item Value Reference Range Interpretation Comme nts H. PYLORI (BREATH) (test cod e = 14422) POSITIVE H. PYLORI (BREATH)2021-03-04 00:00:00* Test Item Value Reference Range Interpretation Comme nts H. PYLORI (BREATH) (test cod e = 89362) POSITIVE H. PYLORI (BREATH)2021-03-04 00:00:00* Test Item Value Reference Range Interpretation Comme nts H. PYLORI (BREATH) (test cod e = 88079) POSITIVE H. PYLORI (BREATH)2021-03-04 00:00:00* Test Item Value Reference Range Interpretation Comme nts H. PYLORI (BREATH) (test cod e = 04041) POSITIVE H. PYLORI (BREATH)2021-03-04 00:00:00* Test Item Value Reference Range Interpretation Comme nts H. PYLORI (BREATH) (test cod e = 02940) POSITIVE LIPID [id number] 00:00:00* Test Item Value Reference Range Interpretation Comme nts CHOLESTEROL (test code = 2210) 185 MG/DL TRIGLYCERIDES (test code = 2232) 190 MG/DL HDL CHOLESTEROL (test code = 2220) 49 MG/DL CALC LDL CHOL (test code = 2237) 105 MG/DL RISK RATIO LDL/HDL (test cod e = 2238) 2.14 RATIO LIPID [id number] 00:00:00* Test Item Value Reference Range Interpretation Comme nts CHOLESTEROL (test code = 2210) 185 MG/DL TRIGLYCERIDES (test code = 2232) 190 MG/DL HDL CHOLESTEROL (test code = 2220) 49 MG/DL CALC LDL CHOL (test code = 2237) 105 MG/DL RISK RATIO LDL/HDL (test cod e = 2238) 2.14 RATIO COMPREHENSIVE METABOLIC [id number] 00:00:00* Test Item Value Reference Range Interpretation Comme nts GLUCOSE (test code = 2217) 371 MG/DL BUN (test code = 2208) 11 MG/DL CREATININE (test code = 2214) 0.61 MG/DL eGFR AMER. (test cod e = 67840) 123 ML/MIN/1.73 eGFR NON- AMER. (test code = 43672) 106 ML/MIN/1.73 CALC BUN/CREAT (test code = [...] code = 2219) 20 U/L COMPREHENSIVE METABOLIC [id number] 00:00:00* Test Item Value Reference Range Interpretation Comme nts GLUCOSE (test code = 2217) 371 MG/DL BUN (test code = 2208) 11 MG/DL CREATININE (test code = 2214) 0.61 MG/DL eGFR AMER. (test cod e = 28760) 123 ML/MIN/1.73 eGFR NON- AMER. (test code = 93468) 106 ML/MIN/1.73 CALC BUN/CREAT (test code = [...] ALT (test code = 2219) 20 U/L [id number] 00:00:00* Test Item Value Reference Range Interpretation Comme nts TSH, THIRD GENERATION (test code = 2821) 1.180 UIU/ML [id number] 00:00:00* Test Item Value Reference Range Interpretation Comme nts TSH, THIRD GENERATION (test code = 2821) 1.180 UIU/ML [id number] 00:00:00* Test Item Value Reference Range Interpretation Comme nts TSH, THIRD GENERATION (test code = 2821) 1.180 UIU/ML H. PYLORI (BREATH)2021-01-20 00:00:00* Test Item Value Reference Range Interpretation Comme nts H. PYLORI (BREATH) (test cod e = 79128) POSITIVE H. PYLORI (BREATH)2021-01-20 00:00:00* Test Item Value Reference Range Interpretation Comme nts H. PYLORI (BREATH) (test cod e = 83021) POSITIVE CBC W/AUTO [id number] 00:00:00* Test Item Value Reference Range Interpretation [...] code = 1015) 387 K/UL CBC W/AUTO [id number] 00:00:00* Test Item Value Reference Range Interpretation [...] code = 1015) 387 K/UL CBC W/AUTO [id number] 00:00:00* Test Item Value Reference Range Interpretation [...] (test code = 1015) 387 K/UL HEMOGLOBIN [id number] 00:00:00* Test Item Value Reference Range Interpretation Comme nts HEMOGLOBIN A1c (test code = 29205) 11.1 % HEMOGLOBIN [id number] 00:00:00* Test Item Value Reference Range Interpretation Comme nts HEMOGLOBIN A1c (test code = 08242) 11.1 % HEMOGLOBIN [id number] 00:00:00* Test Item Value Reference Range Interpretation Comme nts HEMOGLOBIN A1c (test code = 97033) 11.1 % LIPID [id number] 00:00:00* Test Item Value Reference Range Interpretation Comme nts CHOLESTEROL (test code = 2210) 185 MG/DL TRIGLYCERIDES (test code = 2232) 190 MG/DL HDL CHOLESTEROL (test code = 2220) 49 MG/DL CALC LDL CHOL (test code = 2237) 105 MG/DL RISK RATIO LDL/HDL (test cod e = 2238) 2.14 RATIO LIPID [id number] 00:00:00* Test Item Value Reference Range Interpretation Comme nts CHOLESTEROL (test code = 2210) 185 MG/DL TRIGLYCERIDES (test code = 2232) 190 MG/DL HDL CHOLESTEROL (test code = 2220) 49 MG/DL CALC LDL CHOL (test code = 2237) 105 MG/DL RISK RATIO LDL/HDL (test cod e = 2238) 2.14 RATIO COMPREHENSIVE METABOLIC [id number] 00:00:00* Test Item Value Reference Range Interpretation Comme nts GLUCOSE (test code = 2217) 371 MG/DL BUN (test code = 2208) 11 MG/DL CREATININE (test code = 2214) 0.61 MG/DL eGFR AMER. (test cod e = 97383) 123 ML/MIN/1.73 eGFR NON- AMER. (test code = 17725) 106 ML/MIN/1.73 CALC BUN/CREAT (test code = [...] code = 2219) 20 U/L COMPREHENSIVE METABOLIC [id number] 00:00:00* Test Item Value Reference Range Interpretation Comme nts GLUCOSE (test code = 2217) 371 MG/DL BUN (test code = 2208) 11 MG/DL CREATININE (test code = 2214) 0.61 MG/DL eGFR AMER. (test cod e = 24435) 123 ML/MIN/1.73 eGFR NON- AMER. (test code = 47712) 106 ML/MIN/1.73 CALC BUN/CREAT (test code = [...] ALT (test code = 2219) 20 U/L [id number] 00:00:00* Test Item Value Reference Range Interpretation Comme nts TSH, THIRD GENERATION (test code = 2821) 1.180 UIU/ML [id number] 00:00:00* Test Item Value Reference Range Interpretation Comme nts TSH, THIRD GENERATION (test code = 2821) 1.180 UIU/ML [id number] 00:00:00* Test Item Value Reference Range Interpretation Comme nts TSH, THIRD GENERATION (test code = 2821) 1.180 UIU/ML H. PYLORI (BREATH)2021-01-20 00:00:00* Test Item Value Reference Range Interpretation Comme nts H. PYLORI (BREATH) (test cod e = 43497) POSITIVE CBC W/AUTO [id number] 00:00:00* Test Item Value Reference Range Interpretation [...] code = 1015) 387 K/UL CBC W/AUTO [id number] 00:00:00* Test Item Value Reference Range Interpretation [...] (test code = 1015) 387 K/UL HEMOGLOBIN [id number] 00:00:00* Test Item Value Reference Range Interpretation Comme nts HEMOGLOBIN A1c (test code = 47116) 11.1 % HEMOGLOBIN [id number] 00:00:00* Test Item Value Reference Range Interpretation Comme nts HEMOGLOBIN A1c (test code = 41370) 11.1 % LIPID [id number] 00:00:00* Test Item Value Reference Range Interpretation Comme nts CHOLESTEROL (test code = 2210) 185 MG/DL TRIGLYCERIDES (test code = 2232) 190 MG/DL HDL CHOLESTEROL (test code = 2220) 49 MG/DL CALC LDL CHOL (test code = 2237) 105 MG/DL RISK RATIO LDL/HDL (test cod e = 2238) 2.14 RATIO COMPREHENSIVE METABOLIC [id number] 00:00:00* Test Item Value Reference Range Interpretation Comme nts GLUCOSE (test code = 2217) 371 MG/DL BUN (test code = 2208) 11 MG/DL CREATININE (test code = 2214) 0.61 MG/DL eGFR AMER. (test cod e = 04970) 123 ML/MIN/1.73 eGFR NON- AMER. (test code = 46167) 106 ML/MIN/1.73 CALC BUN/CREAT (test code = [...] ALT (test code = 2219) 20 U/L [id number] 00:00:00* Test Item Value Reference Range Interpretation Comme nts TSH, THIRD GENERATION (test code = 2821) 1.180 UIU/ML [id number] 00:00:00* Test Item Value Reference Range Interpretation Comme nts TSH, THIRD GENERATION (test code = 2821) 1.180 UIU/ML H. PYLORI (BREATH)2021-01-20 00:00:00* Test Item Value Reference Range Interpretation Comme nts H. PYLORI (BREATH) (test cod e = 41464) POSITIVE H. PYLORI (BREATH)2021-01-20 00:00:00* Test Item Value Reference Range Interpretation Comme nts H. PYLORI (BREATH) (test cod e = 15318) POSITIVE CBC W/AUTO [id number] 00:00:00* Test Item Value Reference Range Interpretation [...] code = 1015) 387 K/UL CBC W/AUTO [id number] 00:00:00* Test Item Value Reference Range Interpretation [...] code = 1015) 387 K/UL CBC W/AUTO [id number] 00:00:00* Test Item Value Reference Range Interpretation [...] (test code = 1015) 387 K/UL HEMOGLOBIN [id number] 00:00:00* Test Item Value Reference Range Interpretation Comme nts HEMOGLOBIN A1c (test code = 91678) 11.1 % HEMOGLOBIN [id number] 00:00:00* Test Item Value Reference Range Interpretation Comme nts HEMOGLOBIN A1c (test code = 21293) 11.1 % HEMOGLOBIN [id number] 00:00:00* Test Item Value Reference Range Interpretation Comme nts HEMOGLOBIN A1c (test code = 04620) 11.1 % LIPID [id number] 00:00:00* Test Item Value Reference Range Interpretation Comme nts CHOLESTEROL (test code = 2210) 185 MG/DL TRIGLYCERIDES (test code = 2232) 190 MG/DL HDL CHOLESTEROL (test code = 2220) 49 MG/DL CALC LDL CHOL (test code = 2237) 105 MG/DL RISK RATIO LDL/HDL (test cod e = 2238) 2.14 RATIO LIPID [id number] 00:00:00* Test Item Value Reference Range Interpretation Comme nts CHOLESTEROL (test code = 2210) 185 MG/DL TRIGLYCERIDES (test code = 2232) 190 MG/DL HDL CHOLESTEROL (test code = 2220) 49 MG/DL CALC LDL CHOL (test code = 2237) 105 MG/DL RISK RATIO LDL/HDL (test cod e = 2238) 2.14 RATIO COMPREHENSIVE METABOLIC [id number] 00:00:00* Test Item Value Reference Range Interpretation Comme nts GLUCOSE (test code = 2217) 371 MG/DL BUN (test code = 2208) 11 MG/DL CREATININE (test code = 2214) 0.61 MG/DL eGFR AMER. (test cod e = 40484) 123 ML/MIN/1.73 eGFR NON- AMER. (test code = 14536) 106 ML/MIN/1.73 CALC BUN/CREAT (test code = [...] code = 2219) 20 U/L COMPREHENSIVE METABOLIC [id number] 00:00:00* Test Item Value Reference Range Interpretation Comme nts GLUCOSE (test code = 2217) 371 MG/DL BUN (test code = 2208) 11 MG/DL CREATININE (test code = 2214) 0.61 MG/DL eGFR AMER. (test cod e = 74802) 123 ML/MIN/1.73 eGFR NON- AMER. (test code = 43342) 106 ML/MIN/1.73 CALC BUN/CREAT (test code = [...] ALT (test code = 2219) 20 U/L [id number] 00:00:00* Test Item Value Reference Range Interpretation Comme nts TSH, THIRD GENERATION (test code = 2821) 1.180 UIU/ML [id number] 00:00:00* Test Item Value Reference Range Interpretation Comme nts TSH, THIRD GENERATION (test code = 2821) 1.180 UIU/ML [id number] 00:00:00* Test Item Value Reference Range Interpretation Comme nts TSH, THIRD GENERATION (test code = 2821) 1.180 UIU/ML H. PYLORI (BREATH)2021-01-20 00:00:00* Test Item Value Reference Range Interpretation Comme nts H. PYLORI (BREATH) (test cod e = 55085) POSITIVE H. PYLORI (BREATH)2021-01-20 00:00:00* Test Item Value Reference Range Interpretation Comme nts H. PYLORI (BREATH) (test cod e = 48747) POSITIVE CBC W/AUTO [id number] 00:00:00* Test Item Value Reference Range Interpretation [...] code = 1015) 387 K/UL CBC W/AUTO [id number] 00:00:00* Test Item Value Reference Range Interpretation [...] code = 1015) 387 K/UL CBC W/AUTO [id number] 00:00:00* Test Item Value Reference Range Interpretation [...] (test code = 1015) 387 K/UL HEMOGLOBIN [id number] 00:00:00* Test Item Value Reference Range Interpretation Comme nts HEMOGLOBIN A1c (test code = 10027) 11.1 % HEMOGLOBIN [id number] 00:00:00* Test Item Value Reference Range Interpretation Comme nts HEMOGLOBIN A1c (test code = 25922) 11.1 % HEMOGLOBIN [id number] 00:00:00* Test Item Value Reference Range Interpretation Comme nts HEMOGLOBIN A1c (test code = 43011) 11.1 % COVID-19 (ID NOW RAPID TESTING)2020-12-17 18:20:32* Test Item Value Reference Range Interpretation Comme nts SARS-CoV-2 Rapid ID NOW (test code = 08983-5) Not Detected Not Detected MATTHEW (test code = MATTHEW) ID NOW COVID-19 As say is an isothermal nucleic acid amplification test intended for the qualitative detection of nucleic acid from SARS-CoV-2 viral RNA in nasopharyngeal (FOOD PROCESSING SCIENTIST) specimens. It is used under Emergency Use [...] clinically indicated. Lab Interpretation (test code = 00610-8) [facility] 18:20:17* Test Item Value Reference Range Interpretation Comme nts APPEARANCE (test code = 1412420628) Clear Clear COLOR (test code = 8878957382) Yellow Yellow PH (test code = 6348830369) 4.8-8.0 SP GRAVITY (test code = 8448566916) 1.003-1.030 H GLU U QUAL (test code = 7046138785) 500 mg/dL Normal A BLOOD (test code = 9493141885) Negative Negative KETONES (test code = 8417119980) 5 mg/dL Negative A PROTEIN (test code = 2887-8) 30 mg/dL Negative A UROBILIN (test code = 2258712951) Normal Normal BILIRUBIN (test code = 7289754978) Negative Negative NITRITE (test code = 4485939014) Negative Negative LEUK CHASITY (test code = 3719936402) 25/uL Negative A RBC/HPF (test code = 1654694854) See_Comment H [Automated [employer] ge] The system which generated this result transmitted reference range: 0 - 3 HPF. The reference range was not used to interpret this result as normal/abnormal. WBC/HPF (test code = 8912122915) See_Comment [Automated [employer] ge] The system which generated this result transmitted reference range: 0 - 5 HPF. The reference range was not used to interpret this result as normal/abnormal. BACTERIA (test code = 5896333799) Few Negative A SQ EPITH (test code = 2874366367) HPF Lab Interpretation (test code = 64049-5) [facility] (ALB, T.PRO, BILI T, BU/BC, ALT, AST, ALK PHOS)2020-12-17 18:07:11* Test Item Value Reference Range Interpretation Comme nts TOTAL BILI (test code = 4339624724) 0.6 mg/dL 0.1-1.1 BILI UNCON (test code = 6344483696) 0.5 mg/dL 0.1-1.1 BILI CONJ (test code = 1941039614) 0.0 mg/dL 0.0-0.3 T PROTEIN (test code = 7199336463) 8.2 g/dL 6.3-8.2 ALBUMIN (test code = 5551296961) 4.4 g/dL 3.5-5.0 ALK PHOS (test code = 4366898832) 134 U/L 34-122 H ALTv (test code = 1742-6) 29 U/L 5-35 AST(SGOT) (test code = 9071225400) 35 U/L 13-40 Lab Interpretation (test cod e = 18317-3) Abnormal [facility] Metabolic Panel (NA, K, CL, CO2, GLUCOSE, BUN, CREATININE, CA)2020-12-17 18:06:51* Test Item Value Reference Range Interpretation Comme nts NA (test code = 2024817373) 135 mmol/L 135-145 K (test code = 0831437448) 4.4 mmol/L 3.5-5.0 CL (test code = 4065976821) 96 mmol/L 98-108 L CO2 TOTAL (test code = 1857033415) 31 mmol/L 23-31 AGAP (test code = 9595145106) 2-16 BUN (test code = 4421570140) 13 mg/dL 7-23 GLUCOSE (test code = 5773648436) 370 mg/dL 70-110 H CREATININE (test code = 7071025826) 0.50 mg/dL 0.50-1.04 CALCIUM (test code = 2092684802) 9.2 mg/dL 8.6-10.6 eGFR Calculation (Non-) (test code = 0279920018) mL/min/1.73m2 eGFR Calculation () (test code = 1578871772) mL/min/1.73m2 MATTHEW (test code = MATTHEW) Association [...] imaging tests). Lab Interpretation (test code = 49997-0) [facility]normal [facility]Lip[facility] [id number] 18:06:51* Test Item Value Reference Range Interpretation [facility] LIPASE (test code = 5944470090) 169 U/L 0-220 Lab Interpretation (test cod e = 89423-4) Normal [facility] SouthaPTT2021-03-13 18:05:30* Test Item Value Reference Range Interpretation Comme [facility] APTT Patient (test code = 3173-2) See_Comment [Automated message] The system which generated this result transmitted reference range: 23 - 38 Seconds. The reference range was not used to interpret this result as normal/abnormal. MATTHEW (test code = MATTHEW) The [facility] patient population mean normal value for aPTT is 30 seconds. Lab Interpretation (test code = 66189-9) Normal [facility] SouthProthrombin Time (PT) / [id number] 18:03:29 * Test Item Value Reference Range Interpretation Comme [facility] PROTIME PATIENT (test code = 5964-2) See_Comment [Automated messa ge] The system which generated this result transmitted reference range: 12.0 - 14.7 Seconds. The reference range was not used to interpret this result as normal/abnormal. INR (test code = 6301-6) Normal INR <1.1; Warfarin Therapeutic range 2.0 to 3.0 or 2.5 to 3.5, depending upon the indications. Lab Interpretation (test code = 57068-3) Normal [facility] with [id number] 17:55:29* Test Item Value Reference Range Interpretation [...] 32.8 g/dL 31.6-35.1 RDW-SD (test code = 08220-6) 39.1 fL 39.0-49.9 RDW-CV (test code = 788-0) 12.3 % 12.0-15.5 PLT (test code = 777-3) See_Comment H [Automated messa ge] The system which generated this result transmitted reference range: 166 - 358 10*3/?L. The reference range was not used to interpret this result as normal/abnormal. MPV (test code = 12348-8) 10.3 fL 9.5-12.9 NRBC/100 WBC (test code = 9399349241) See_Comment [Automated [employer] ssage] The system which generated this result transmitted reference range: 0.0 - 10.0 /100 WBCs. The reference range was not used to interpret this result as normal/abnormal. NRBC x10^3 (test code = 3518599537) <0.01 See_Comment [Automated messa ge] The system which generated this result transmitted reference range: 10*3/?L. The reference range was not used to interpret this result as normal/abnormal. GRAN MAT (NEUT) % (test code = 770-8) 72.0 % IMM GRAN % (test code = 7652065555) 0.40 % LYMPH % (test code = 736-9) 18.4 % MONO % (test code = 5905-5) 6.4 % EOS % (test code = 713-8) 2.2 % BASO % (test code = 706-2) 0.6 % GRAN MAT x10^3(ANC) (test code = 5954410844) 7.61 10*3/uL 1.88-7.09 H IMM GRAN x10^3 (test code = 0011682571) 0.04 10*3/uL 0.00-0.06 LYMPH x10^3 (test code = 731-0) 1.94 10*3/uL 1.32-3.29 MONO x10^3 (test code = 742-7) 0.68 10*3/uL 0.33-0.92 EOS x10^3 (test code = 711-2) 0.23 10*3/uL 0.03-0.39 BASO x10^3 (test code = 704-7) 0.06 10*3/uL 0.01-0.07 Lab Interpretation (test code = 20822-6) [facility] CHEST 1 [id number] 14:56:41.No acute cardiopulmonary abnormality Preliminary Report Dictated [...] this study and agree with the abovereport. [facility] SouthPOHI [id number] 14:14:00* Test Item Value Reference Range Interpretation Comme nts POCT PREG (test code = 1605) negative On board controls acceptable with C Line (test code = 3574) present Lab Interpretation (test cod e = 56984-2) Normal [facility] SouthD-LOPGG8269-14-11 13:53:00* Test Item Value Reference Range Interpretation Comments D-DIMER (test code = 3790124554) See_Comment H [Automated message] The system which [...] a diagnosis. Lab Interpretation (test code = 36556-4) [facility], [id number] 13:40:00* Test Item Value Reference Range Interpretation Comme nts PREG SERUM (test code = 3997303487) Negative MATTHEW (test code = MATTHEW) Less than 10 IU/L. ?If low titer or ectopic is suspected, resubmit specimen in 48-72 hours. [facility] SouthTroponin [id number] 13:36:00* Test Item Value Reference Range Interpretation Comme [facility] TROPONIN I (test code = 4867709389) <0.012 See_Comment [Automated message] The system which [...] biotin. ? Lab Interpretation (test code = 59311-0) Normal [facility] SouthaPTT2021-01-24 13:35:00* Test Item Value Reference Range Interpretation Comme nts APTT Patient (test code = 3173-2) See_Comment [Automated message] The system which generated this result transmitted reference range: 23 - 38 Seconds. The reference range was not used to interpret this result as normal/abnormal. MATTHEW (test code = MATTHEW) The [facility] patient population mean normal value for aPTT is 30 seconds. Lab Interpretation (test code = 26336-4) Normal [facility] SouthProthrombin Time (PT) / [id number] 13:33:00 * Test Item Value Reference Range Interpretation Comme nts PROTIME PATIENT (test code = 5964-2) See_Comment [Automated [employer] ge] The system which generated this result transmitted reference range: 12.0 - 14.7 Seconds. The reference range was not used to interpret this result as normal/abnormal. INR (test code = 6301-6) Normal INR <1.1; Warfarin Therapeutic range 2.0 to 3.0 or 2.5 to 3.5, depending upon the indications. Lab Interpretation (test code = 00261-1) Normal [facility] SouthB[facility] Metabolic [facility] (NA, K, CL, CO2, GLUCOSE, BUN, CREATININE, CA)2020-10-30 13:25:00* Test Item Value Reference Range Interpretation Comme [facility] NA (test code = 5652267842) 137 mmol/L 135-145 K (test code = 2447271084) 4.4 mmol/L 3.5-5 CL (test code = 6826909725) 101 mmol/L 98-108 CO2 TOTAL (test code = 5382321090) 28 mmol/L 23-31 AGAP (test code = 6643174911) 2-16 BUN (test code = 7590177129) 12 mg/dL 7-23 GLUCOSE (test code = 3055217551) 195 mg/dL 70-110 H CREATININE (test code = 5940678275) 0.42 mg/dL 0.5-1.04 L CALCIUM (test code = 5443036925) 9.2 mg/dL 8.6-10.6 eGFR Calculation (Non-) (test code = 0377988350) mL/min/1.73m2 eGFR Calculation () (test code = 8936859771) mL/min/1.73m2 MATTHEW (test code = MATTHEW) Association [...] imaging tests). Lab Interpretation (test code = 58813-1) [facility]normal [facility] (ALB, T.PRO, BILI T, BU/BC, ALT, AST, ALK PHOS)2020-10-30 13:25:00* Test Item Value Reference Range Interpretation Comme nts TOTAL BILI (test code = 6478480667) 1.1 mg/dL 0.1-1.1 BILI UNCON (test code = 4218455782) 0.8 mg/dL 0.1-1.1 BILI CONJ (test code = 9543225977) 0.0 mg/dL 0-0.3 T PROTEIN (test code = 4122760092) 8.2 g/dL 6.3-8.2 ALBUMIN (test code = 6467794125) 4.2 g/dL 3.5-5 ALK PHOS (test code = 0138558965) 109 U/L 34-122 ALTv (test code = 1742-6) 23 U/L 5-35 AST(SGOT) (test code = 1255675793) 35 U/L 13-40 Lab Interpretation (test cod e = 14299-8) Normal [facility] SouthADC,CLC OR L[facility] ONLY - INFLUENZA A & B DIRECT [id number] 13:21:00* Test Item Value Reference Range Interpretation Comme nts Influenza A (test code = 66334-7) Negative Negative Influenza B (test code = 62182-7) Negative Negative Lab Interpretation (test cod e = 27783-3) Normal [facility] STREP SCREEN FOR GROUP [id number] 13:21:00* Test Item Value Reference Range Interpretation Comme nts Streptococcus pyogenes (grou p A) antigen (test code = 76340-5) Negative Negative Lab Interpretation (test cod e = 06184-5) Normal [facility]COVID[facility] (ID NOW RAPID TESTING)2020-10-30 13:18:00* Test Item Value Reference Range Interpretation Comme nts SARS-CoV-2 Rapid ID NOW (test code = 25329-5) Not Detected Not Detected MATTHEW (test code = MATTHEW) ID NOW COVID-19 As say is an isothermal nucleic acid amplification test intended for the qualitative detection of nucleic acid from SARS-CoV-2 viral RNA in nasopharyngeal (FOOD PROCESSING SCIENTIST) specimens. It is used under Emergency Use [...] clinically indicated. Lab Interpretation (test code = 43181-2) Normal [facility] with [id number] 13:05:00* Test Item Value Reference Range Interpretation Comme nts WBC (test code = 6690-2) See_Comment H [Automated [employer] ge] The system which generated this result transmitted reference range: 4.30 - 11.10 10*3/?L. The reference range was not used to interpret this result as normal/abnormal. RBC (test code = 789-8) See_Comment [Automated [employer] ge] The system which generated this result [...] 32.4 g/dL 31.6-35.1 RDW-SD (test code = 96457-9) 41.0 fL 39-49.9 RDW-CV (test code = 788-0) 12.4 % 12-15.5 PLT (test code = 777-3) See_Comment H [Automated [employer] ge] The system which generated this result transmitted reference range: 166 - 358 10*3/?L. The reference range was not used to interpret this result as normal/abnormal. MPV (test code = 16488-0) 10.5 fL 9.5-12.9 NRBC/100 WBC (test code = 3498357829) See_Comment [Automated [employer] ssage] The system which generated this result transmitted reference range: 0.0 - 10.0 /100 WBCs. The reference range was not used to interpret this result as normal/abnormal. NRBC x10^3 (test code = 1208160872) <0.01 See_Comment [Automated [employer] ge] The system which generated this result transmitted reference range: 10*3/?L. The reference range was not used to interpret this result as normal/abnormal. GRAN MAT (NEUT) % (test code = 770-8) 66.0 % IMM GRAN % (test code = 3998951445) 0.40 % LYMPH % (test code = 736-9) 19.5 % MONO % (test code = 5905-5) 9.3 % EOS % (test code = 713-8) 4.2 % BASO % (test code = 706-2) 0.6 % GRAN MAT x10^3(ANC) (test code = 6847024077) 7.63 10*3/uL 1.88-7.09 H IMM GRAN x10^3 (test code = 6532933097) 0.05 10*3/uL 0-0.06 LYMPH x10^3 (test code = 731-0) 2.26 10*3/uL 1.32-3.29 MONO x10^3 (test code = 742-7) 1.08 10*3/uL 0.33-0.92 H EOS x10^3 (test code = 711-2) 0.49 10*3/uL 0.03-0.39 H BASO x10^3 (test code = 704-7) 0.07 10*3/uL 0.01-0.07 Lab Interpretation (test code = 83770-0) [facility]2020-10-12 00:00:00* Test Item Value Reference Range [...] MG/DL eGFR AMER. (test cod e = 77995) 112 ML/MIN/1.73 eGFR NON- AMER. (test code = 83132) 97 ML/MIN/1.73 CALC BUN/CREAT (test code = [...] MG/DL eGFR AMER. (test cod e = 36565) 112 ML/MIN/1.73 eGFR NON- AMER. (test code = 77846) 97 ML/MIN/1.73 CALC BUN/CREAT (test code = [...] MG/DL eGFR AMER. (test cod e = 19305) 112 ML/MIN/1.73 eGFR NON- AMER. (test code = 49659) 97 ML/MIN/1.73 CALC BUN/CREAT (test code = [...] MG/DL eGFR AMER. (test cod e = 09872) 112 ML/MIN/1.73 eGFR NON- AMER. (test code = 49173) 97 ML/MIN/1.73 CALC BUN/CREAT (test code = [...] MG/DL eGFR AMER. (test cod e = 65352) 112 ML/MIN/1.73 eGFR NON- AMER. (test code = 19430) 97 ML/MIN/1.73 CALC BUN/CREAT (test code = [...] MG/DL eGFR AMER. (test cod e = 14671) 112 ML/MIN/1.73 eGFR NON- AMER. (test code = 15304) 97 ML/MIN/1.73 CALC BUN/CREAT (test code = [...] MG/DL eGFR AMER. (test cod e = 66868) 112 ML/MIN/1.73 eGFR NON- AMER. (test code = 87088) 97 ML/MIN/1.73 CALC BUN/CREAT (test code = [...] ALT (test code = 2219) 22 U/L SARS-CoV-2 (COVID-19) by RT-PCR (HIGH RISK)2020-10-06 00:00:00* Test Item Value Reference Range Interpretation Comme nts SARS-CoV-2 INTERPRETATION (t est code = 29989) NEGATIVE SOURCE (test code = 49441) NOT SPECIFIED SARS-CoV-2 (COVID-19) by RT-PCR (HIGH RISK)2020-10-06 00:00:00* Test Item Value Reference Range Interpretation Comme nts SARS-CoV-2 INTERPRETATION (t est code = 41311) NEGATIVE SOURCE (test code = 14047) NOT SPECIFIED SARS-CoV-2 (COVID-19) by RT-PCR (HIGH RISK)2020-10-06 00:00:00* Test Item Value Reference Range Interpretation Comme nts SARS-CoV-2 INTERPRETATION (t est code = 55792) NEGATIVE SOURCE (test code = 32284) NOT SPECIFIED SARS-CoV-2 (COVID-19) by RT-PCR (HIGH RISK)2020-10-06 00:00:00* Test Item Value Reference Range Interpretation Comme nts SARS-CoV-2 INTERPRETATION (t est code = 35638) NEGATIVE SOURCE (test code = 16035) NOT SPECIFIED SARS-CoV-2 (COVID-19) by RT-PCR (HIGH RISK)2020-10-06 00:00:00* Test Item Value Reference Range Interpretation Comme nts SARS-CoV-2 INTERPRETATION (t est code = 05319) NEGATIVE SOURCE (test code = 06050) NOT SPECIFIED SARS-CoV-2 (COVID-19) by RT-PCR (HIGH RISK)2020-10-06 00:00:00* Test Item Value Reference Range Interpretation Comme nts SARS-CoV-2 INTERPRETATION (t est code = 00645) NEGATIVE SOURCE (test code = 40997) NOT SPECIFIED SARS-CoV-2 (COVID-19) by RT-PCR (HIGH RISK)2020-10-06 00:00:00* Test Item Value Reference Range Interpretation Comme nts SARS-CoV-2 INTERPRETATION (t est code = 68805) NEGATIVE SOURCE (test code = 25773) NOT SPECIFIED XR CHEST 1 [id number] 00:19:17Grossly unchanged streaky opacities associated with known [...] reviewed this study and agree with the abovereport[facility] 23:37:00* Test Item Value Reference Range Interpretation Comme nts APPEARANCE (test code = 9922362363) Clear Clear COLOR (test code = 7492601669) Yellow Yellow PH (test code = 3979298004) 4.8-8.0 SP GRAVITY (test code = 5325404410) 1.003-1.030 GLU U QUAL (test code = 1847875935) Normal Normal BLOOD (test code = 2484519703) Negative Negative KETONES (test code = 6740575787) Negative Negative PROTEIN (test code = 2887-8) Negative Negative UROBILIN (test code = 1673636811) Normal Normal BILIRUBIN (test code = 3854217428) Negative Negative NITRITE (test code = 5151171626) Negative Negative LEUK CHASITY (test code = 0873868554) 500/uL Negative A RBC/HPF (test code = 2284126535) See_Comment [Automated [employer] ge] The system which generated this result transmitted reference range: 0 - 3 HPF. The reference range was not used to interpret this result as normal/abnormal. WBC/HPF (test code = 7318804139) See_Comment H [Automated [employer] ge] The system which generated this result transmitted reference range: 0 - 5 HPF. The reference range was not used to interpret this result as normal/abnormal. BACTERIA (test code = 0242680581) Few Negative A MUCOUS (test code = 6063587120) Slight Negative LPF A SQ EPITH (test code = 0224066246) HPF TRANS EPI (test code = 8590784637) <1 See_Comment [Automated [employer] ge] The system which generated this result transmitted reference range: <=1 HPF. The reference range was not used to interpret this result as normal/abnormal. Lab Interpretation (test code = 18369-6) Abnormal [facility] [id number] 22:39:00* Test Item Value Reference Range Interpretation Comme nts TROPONIN I (test code = 1729102368) <0.012 See_Comment [Automated message] The system which [...] biotin. ? Lab Interpretation (test code = 48759-0) [id number] 22:36:00* Test Item Value Reference Range Interpretation Comme nts NT-proBNP (test code = 5674237832) 54 pg/mL See_Comment [Automated message] The system which generated this result transmitted reference range: <=125. The reference range was not used to interpret this result as normal/abnormal. MATTHEW (test code = MATTHEW) Biotin has been reported to cause a negative bias, interpret results relative to patient's use of biotin. Lab Interpretation (test code = 96669-8) [facility]OL[facility] PAN[facility] (86019)2020-09-26 22:28:00* Test Item Value Reference Range Interpretation Comme nts NA (test code = 2438715792) 137 mmol/L 135-145 K (test code = 0524402719) 3.2 mmol/L 3.5-5 L CL (test code = 2944508838) 97 mmol/L 98-108 L CO2 TOTAL (test code = 8438857849) 30 mmol/L 23-31 AGAP (test code = 4941763199) 2-16 BUN (test code = 9627524721) 9 mg/dL 7-23 GLUCOSE (test code = 3451725656) 191 mg/dL 70-110 H CREATININE (test code = 3259708695) 0.52 mg/dL 0.5-1.04 TOTAL BILI (test code = 2989602590) 0.8 mg/dL 0.1-1.1 CALCIUM (test code = 6903668047) 8.9 mg/dL 8.6-10.6 T PROTEIN (test code = 6681027516) 7.4 g/dL 6.3-8.2 ALBUMIN (test code = 4267786129) 4.1 g/dL 3.5-5 ALK PHOS (test code = 3345226608) 98 U/L 34-122 ALTv (test code = 1742-6) 19 U/L 5-35 AST(SGOT) (test code = 0444623395) 21 U/L 13-40 eGFR Calculation (Non-) (test code = 6953711439) mL/min/1.73m2 eGFR Calculation () (test code = 9664972380) mL/min/1.73m2 MATTHEW (test code = MATTHEW) Association [...] imaging tests). Lab Interpretation (test code = 88817-8) [facility] 22:27:00* Test Item Value Reference Range Interpretation Comme nts LIPASE (test code = 0821738535) 90 U/L 0-220 Lab Interpretation (test cod e = 90533-3) Normal [facility]CB WITH [id number] 22:26:00* Test Item Value Reference Range Interpretation Comme nts WBC (test code = 6690-2) See_Comment [Automated [employer] ge] The system which generated this result [...] 32.6 g/dL 31.6-35.1 RDW-SD (test code = 11755-7) 40.6 fL 39-49.9 RDW-CV (test code = 788-0) 12.4 % 12-15.5 PLT (test code = 777-3) See_Comment H [Automated messa ge] The system which generated this result transmitted reference range: 166 - 358 10*3/?L. The reference range was not used to interpret this result as normal/abnormal. MPV (test code = 02188-7) 10.3 fL 9.5-12.9 NRBC/100 WBC (test code = 5685119908) See_Comment [Automated [employer] ssage] The system which generated this result transmitted reference range: 0.0 - 10.0 /100 WBCs. The reference range was not used to interpret this result as normal/abnormal. NRBC x10^3 (test code = 1624024664) <0.01 See_Comment [Automated messa ge] The system which generated this result transmitted reference range: 10*3/?L. The reference range was not used to interpret this result as normal/abnormal. GRAN MAT (NEUT) % (test code = 770-8) 65.8 % IMM GRAN % (test code = 7487669118) 0.50 % LYMPH % (test code = 736-9) 22.4 % MONO % (test code = 5905-5) 8.9 % EOS % (test code = 713-8) 2.1 % BASO % (test code = 706-2) 0.3 % GRAN MAT x10^3(ANC) (test code = 4220965801) 7.21 10*3/uL 1.88-7.09 H IMM GRAN x10^3 (test code = 2892009456) 0.06 10*3/uL 0-0.06 LYMPH x10^3 (test code = 731-0) 2.45 10*3/uL 1.32-3.29 MONO x10^3 (test code = 742-7) 0.98 10*3/uL 0.33-0.92 H EOS x10^3 (test code = 711-2) 0.23 10*3/uL 0.03-0.39 BASO x10^3 (test code = 704-7) 0.03 10*3/uL 0.01-0.07 Lab Interpretation (test code = 53025-4) [facility] by RT-PCR (HIGH RISK) 2020-09-25 00:00:00* Test Item Value Reference Range Interpretation Comme nts SARS-CoV-2 INTERPRETATION (t est code = 56520) POSITIVE SOURCE (test code = 34154) NOT SPECIFIED SARS-CoV-2 (COVID-19) by RT-PCR (HIGH RISK)2020-09-25 00:00:00* Test Item Value Reference Range Interpretation Comme nts SARS-CoV-2 INTERPRETATION (t est code = 65883) POSITIVE SOURCE (test code = 12952) NOT SPECIFIED SARS-CoV-2 (COVID-19) by RT-PCR (HIGH RISK)2020-09-25 00:00:00* Test Item Value Reference Range Interpretation Comme nts SARS-CoV-2 INTERPRETATION (t est code = 73946) POSITIVE SOURCE (test code = 19498) NOT SPECIFIED SARS-CoV-2 (COVID-19) by RT-PCR (HIGH RISK)2020-09-25 00:00:00* Test Item Value Reference Range Interpretation Comme nts SARS-CoV-2 INTERPRETATION (t est code = 40128) POSITIVE SOURCE (test code = 52075) NOT SPECIFIED SARS-CoV-2 (COVID-19) by RT-PCR (HIGH RISK)2020-09-25 00:00:00* Test Item Value Reference Range Interpretation Comme nts SARS-CoV-2 INTERPRETATION (t est code = 10553) POSITIVE SOURCE (test code = 98277) NOT SPECIFIED SARS-CoV-2 (COVID-19) by RT-PCR (HIGH RISK)2020-09-25 00:00:00* Test Item Value Reference Range Interpretation Comme nts SARS-CoV-2 INTERPRETATION (t est code = 42821) POSITIVE SOURCE (test code = 05454) NOT SPECIFIED SARS-CoV-2 (COVID-19) by RT-PCR (HIGH RISK)2020-09-25 00:00:00* Test Item Value Reference Range Interpretation Comme nts SARS-CoV-2 INTERPRETATION (t est code = 33921) POSITIVE SOURCE (test code = 03137) NOT SPECIFIED CT CHEST PULMONARY [id number] 02:11:181. ?No acute pulmonary embolism. PROCEDURE: CT [...] abdomen: Unremarkable. IMPRESSION1. No acute pulmonary embolism. [facility] [id number] 01:20:00* Test Item Value Reference Range Interpretation Comments D-DIMER (test code = 1897884205) See_Comment H [Automated message] The system which [...] a diagnosis. Lab Interpretation (test code = 12622-9) [facility]normal [facility]XR [facility] 1 [id number] 23:44:22Slightly suboptimal lung volumes with perihilar streaky [...] silhouette is normal in size. No acute osseousabnormality is present. [facility], Radiant Results Inft User [...] reviewed this study and agree withthe above report.[facility] (ID NOW RAPID TESTING)2020-09-01 23:26:00* Test Item Value Reference Range Interpretation Comme nts SARS-CoV-2 Rapid ID NOW (test code = 08170-3) Positive Not Detected A MATTHEW (test code = MATTHEW) ID NOW COVID-19 As say is an isothermal nucleic acid amplification test intended for the qualitative detection of nucleic acid from SARS-CoV-2 viral RNA in nasopharyngeal (FOOD PROCESSING SCIENTIST) specimens. It is used under Emergency Use [...] clinically indicated. Lab Interpretation (test code = 70717-4) Abnormal [facility]ADC,CLC OR [facility] ONLY - INFLUENZA A & B DIRECT [id number] 23:26:00* Test Item Value Reference Range Interpretation Comme nts Influenza A (test code = 10182-5) Negative Negative Influenza B (test code = 04833-3) Negative Negative Lab Interpretation (test cod e = 23779-0) Normal [facility]UR[facility]IS2020-11-26 23:22:00* Test Item Value Reference Range Interpretation Comme nts APPEARANCE (test code = 7379256826) Clear Clear COLOR (test code = 5831874420) Yellow Yellow PH (test code = 1381373364) 4.8-8.0 SP GRAVITY (test code = 0938288168) 1.003-1.030 GLU U QUAL (test code = 2091239830) 500 mg/dL Normal A BLOOD (test code = 2456695554) Negative Negative KETONES (test code = 4527766359) Negative Negative PROTEIN (test code = 2887-8) 30 mg/dL Negative A UROBILIN (test code = 2104282100) Normal Normal BILIRUBIN (test code = 8104567368) Negative Negative NITRITE (test code = 9059746505) Negative Negative LEUK CHASITY (test code = 6204546996) 250/uL Negative A RBC/HPF (test code = 5104072686) See_Comment H [Automated [employer] ge] The system which generated this result transmitted reference range: 0 - 3 HPF. The reference range was not used to interpret this result as normal/abnormal. WBC/HPF (test code = 4037571929) See_Comment [Automated [employer] ge] The system which generated this result transmitted reference range: 0 - 5 HPF. The reference range was not used to interpret this result as normal/abnormal. BACTERIA (test code = 1175272476) Few Negative A MUCOUS (test code = 3324247009) Slight Negative LPF A SQ EPITH (test code = 1707540829) HPF Lab Interpretation (test code = 33012-0) [facility]normal [facility] [id number] 23:20:00* Test Item Value Reference Range Interpretation Comme nts NT-proBNP (test code = 6335095807) 38 pg/mL See_Comment [Automated message] The system which generated this result transmitted reference range: <=125. The reference range was not used to interpret this result as normal/abnormal. MATTHEW (test code = MATTHEW) Biotin has been reported to cause a negative bias, interpret results relative to patient's use of biotin. Lab Interpretation (test code = 05745-3) [facility]COMP[facility] METABOLIC PANEL (91896)2020-09-01 23:12:00* Test Item Value Reference Range Interpretation Comme nts NA (test code = 8817269530) 137 mmol/L 135-145 K (test code = 9170538393) 3.9 mmol/L 3.5-5 CL (test code = 9293556991) 100 mmol/L 98-108 CO2 TOTAL (test code = 0839361515) 29 mmol/L 23-31 AGAP (test code = 0772742650) 2-16 BUN (test code = 0512718791) 17 mg/dL 7-23 GLUCOSE (test code = 5626874460) 174 mg/dL 70-110 H CREATININE (test code = 7123379616) 0.56 mg/dL 0.5-1.04 TOTAL BILI (test code = 3130552595) 0.6 mg/dL 0.1-1.1 CALCIUM (test code = 4441122370) 9.2 mg/dL 8.6-10.6 T PROTEIN (test code = 2996624921) 7.9 g/dL 6.3-8.2 ALBUMIN (test code = 4004944855) 4.3 g/dL 3.5-5 ALK PHOS (test code = 8433362546) 101 U/L 34-122 ALTv (test code = 1742-6) 32 U/L 5-35 AST(SGOT) (test code = 7807752966) 28 U/L 13-40 eGFR Calculation (Non-) (test code = 3806354146) mL/min/1.73m2 eGFR Calculation () (test code = 0233927987) mL/min/1.73m2 MATTHEW (test code = MATTHEW) Association [...] imaging tests). Lab Interpretation (test code = 78977-9) Abnormal [facility] WITH [id number] 23:01:00* Test Item Value Reference Range Interpretation Comme nts WBC (test code = 6690-2) See_Comment [Automated [employer] ge] The system which generated this result transmitted reference range: 4.30 - 11.10 10*3/?L. The reference range was not used to interpret this result as normal/abnormal. RBC (test code = 789-8) See_Comment [Automated [employer] ge] The system which generated this result [...] 32.9 g/dL 31.6-35.1 RDW-SD (test code = 70243-9) 41.6 fL 39-49.9 RDW-CV (test code = 788-0) 12.6 % 12-15.5 PLT (test code = 777-3) See_Comment [Automated [employer] ge] The system which generated this result transmitted reference range: 166 - 358 10*3/?L. The reference range was not used to interpret this result as normal/abnormal. MPV (test code = 22159-8) 10.0 fL 9.5-12.9 NRBC/100 WBC (test code = 5645085955) See_Comment [Automated [employer] ssage] The system which generated this result transmitted reference range: 0.0 - 10.0 /100 WBCs. The reference range was not used to interpret this result as normal/abnormal. NRBC x10^3 (test code = 1327930828) <0.01 See_Comment [Automated messa ge] The system which generated this result transmitted reference range: 10*3/?L. The reference range was not used to interpret this result as normal/abnormal. GRAN MAT (NEUT) % (test code = 770-8) 77.1 % IMM GRAN % (test code = 8165499849) 0.40 % LYMPH % (test code = 736-9) 10.9 % MONO % (test code = 5905-5) 10.4 % EOS % (test code = 713-8) 0.7 % BASO % (test code = 706-2) 0.5 % GRAN MAT x10^3(ANC) (test code = 8212253671) 6.59 10*3/uL 1.88-7.09 IMM GRAN x10^3 (test code = 2167213179) 0.03 10*3/uL 0-0.06 LYMPH x10^3 (test code = 731-0) 0.93 10*3/uL 1.32-3.29 L MONO x10^3 (test code = 742-7) 0.89 10*3/uL 0.33-0.92 EOS x10^3 (test code = 711-2) 0.06 10*3/uL 0.03-0.39 BASO x10^3 (test code = 704-7) 0.04 10*3/uL 0.01-0.07 Lab Interpretation (test code = 88049-4) [facility]normal [facility] SouthLactic Acid Whole [id number] 22:55:00* Test Item Value Reference Range Interpretation Comme nts LACTIC ACID (test code = 8727771082) 1.33 mmol/L [facility]PO[facility] [id number] 22:52:00* Test Item Value Reference Range Interpretation Comme nts POCT PREG (test code = 1605) negative On board controls acceptable with C Line (test code = 3574) present POCT PREG LOT # (test code = 3575) [id number] POCT PREG TEST DATE ( test code = 3576) 02/03/2022 Lab Interpretation (test cod e = 02638-5) [facility] SouthURIC [id number] 00:00:00* Test Item Value Reference Range Interpretation Comme nts URIC ACID (test code = 2233) 3.6 MG/DL URIC [id number] 00:00:00* Test Item Value Reference Range Interpretation Comme nts URIC ACID (test code = 2233) 3.6 MG/DL SUKHI REFLEX AUTOIMMUNE AB [id number] 00:00:00* Test Item Value Reference Range Interpretation Comme nts ANTI-NUCLEAR ANTIBODIES (michael t code = 3506) NEGATIVE SUKHI REFLEX AUTOIMMUNE AB [id number] 00:00:00* Test Item Value Reference Range Interpretation Comme nts ANTI-NUCLEAR ANTIBODIES (michael t code = 3506) NEGATIVE COMPREHENSIVE METABOLIC [id number] 00:00:00* Test Item Value Reference Range Interpretation Comme nts GLUCOSE (test code = 2217) 101 MG/DL BUN (test code = 2208) 10 MG/DL CREATININE (test code = 2214) 0.62 MG/DL eGFR AMER. (test cod e = 82033) 123 ML/MIN/1.73 eGFR NON- AMER. (test code = 22244) 106 ML/MIN/1.73 CALC BUN/CREAT (test code = [...] code = 2219) 196 U/L COMPREHENSIVE METABOLIC [id number] 00:00:00* Test Item Value Reference Range Interpretation Comme nts GLUCOSE (test code = 2217) 101 MG/DL BUN (test code = 2208) 10 MG/DL CREATININE (test code = 2214) 0.62 MG/DL eGFR AMER. (test cod e = 68329) 123 ML/MIN/1.73 eGFR NON- AMER. (test code = 25597) 106 ML/MIN/1.73 CALC BUN/CREAT (test code = [...] (test code = 2219) 196 U/L HEMOGLOBIN [id number] 00:00:00* Test Item Value Reference Range Interpretation Comme nts HEMOGLOBIN A1c (test code = 64329) 7.0 % HEMOGLOBIN [id number] 00:00:00* Test Item Value Reference Range Interpretation Comme nts HEMOGLOBIN A1c (test code = 96440) 7.0 % HEMOGLOBIN [id number] 00:00:00* Test Item Value Reference Range Interpretation Comme nts HEMOGLOBIN A1c (test code = 80289) 7.0 % C-REACTIVE [id number] 00:00:00* Test Item Value Reference Range Interpretation Comme nts C-REACTIVE PROTEIN (test cod e = 3513) 0.7 MG/DL C-REACTIVE [id number] 00:00:00* Test Item Value Reference Range Interpretation Comme nts C-REACTIVE PROTEIN (test cod e = 3513) 0.7 MG/DL SEDIMENTATION [id number] 00:00:00* Test Item Value Reference Range Interpretation Comme nts SEDIMENTATION RATE (test cod e = 1017) 22 MM/HOUR SEDIMENTATION [id number] 00:00:00* Test Item Value Reference Range Interpretation Comme nts SEDIMENTATION RATE (test cod e = 1017) 22 MM/HOUR URIC [id number] 00:00:00* Test Item Value Reference Range Interpretation Comme nts URIC ACID (test code = 2233) 3.6 MG/DL URIC [id number] 00:00:00* Test Item Value Reference Range Interpretation Comme nts URIC ACID (test code = 2233) 3.6 MG/DL SUKHI REFLEX AUTOIMMUNE AB [id number] 00:00:00* Test Item Value Reference Range Interpretation Comme nts ANTI-NUCLEAR ANTIBODIES (michael t code = 3506) NEGATIVE SUKHI REFLEX AUTOIMMUNE AB [id number] 00:00:00* Test Item Value Reference Range Interpretation Comme nts ANTI-NUCLEAR ANTIBODIES (michael t code = 3506) NEGATIVE COMPREHENSIVE METABOLIC [id number] 00:00:00* Test Item Value Reference Range Interpretation Comme nts GLUCOSE (test code = 2217) 101 MG/DL BUN (test code = 2208) 10 MG/DL CREATININE (test code = 2214) 0.62 MG/DL eGFR AMER. (test cod e = 49872) 123 ML/MIN/1.73 eGFR NON- AMER. (test code = 78525) 106 ML/MIN/1.73 CALC BUN/CREAT (test code = [...] code = 2219) 196 U/L COMPREHENSIVE METABOLIC [id number] 00:00:00* Test Item Value Reference Range Interpretation Comme nts GLUCOSE (test code = 2217) 101 MG/DL BUN (test code = 2208) 10 MG/DL CREATININE (test code = 2214) 0.62 MG/DL eGFR AMER. (test cod e = 91679) 123 ML/MIN/1.73 eGFR NON- AMER. (test code = 79948) 106 ML/MIN/1.73 CALC BUN/CREAT (test code = [...] (test code = 2219) 196 U/L HEMOGLOBIN [id number] 00:00:00* Test Item Value Reference Range Interpretation Comme nts HEMOGLOBIN A1c (test code = 93201) 7.0 % HEMOGLOBIN [id number] 00:00:00* Test Item Value Reference Range Interpretation Comme nts HEMOGLOBIN A1c (test code = 50178) 7.0 % C-REACTIVE [id number] 00:00:00* Test Item Value Reference Range Interpretation Comme nts C-REACTIVE PROTEIN (test cod e = 3513) 0.7 MG/DL SEDIMENTATION [id number] 00:00:00* Test Item Value Reference Range Interpretation Comme nts SEDIMENTATION RATE (test cod e = 1017) 22 MM/HOUR URIC [id number] 00:00:00* Test Item Value Reference Range Interpretation Comme nts URIC ACID (test code = 2233) 3.6 MG/DL SUKHI REFLEX AUTOIMMUNE AB [id number] 00:00:00* Test Item Value Reference Range Interpretation Comme nts ANTI-NUCLEAR ANTIBODIES (michael t code = 3506) NEGATIVE COMPREHENSIVE METABOLIC [id number] 00:00:00* Test Item Value Reference Range Interpretation Comme nts GLUCOSE (test code = 2217) 101 MG/DL BUN (test code = 2208) 10 MG/DL CREATININE (test code = 2214) 0.62 MG/DL eGFR AMER. (test cod e = 03954) 123 ML/MIN/1.73 eGFR NON- AMER. (test code = 48716) 106 ML/MIN/1.73 CALC BUN/CREAT (test code = [...] (test code = 2219) 196 U/L HEMOGLOBIN [id number] 00:00:00* Test Item Value Reference Range Interpretation Comme nts HEMOGLOBIN A1c (test code = 89555) 7.0 % HEMOGLOBIN [id number] 00:00:00* Test Item Value Reference Range Interpretation Comme nts HEMOGLOBIN A1c (test code = 17645) 7.0 % HEMOGLOBIN [id number] 00:00:00* Test Item Value Reference Range Interpretation Comme nts HEMOGLOBIN A1c (test code = 75450) 7.0 % C-REACTIVE [id number] 00:00:00* Test Item Value Reference Range Interpretation Comme nts C-REACTIVE PROTEIN (test cod e = 3513) 0.7 MG/DL C-REACTIVE [id number] 00:00:00* Test Item Value Reference Range Interpretation Comme nts C-REACTIVE PROTEIN (test cod e = 3513) 0.7 MG/DL SEDIMENTATION [id number] 00:00:00* Test Item Value Reference Range Interpretation Comme nts SEDIMENTATION RATE (test cod e = 1017) 22 MM/HOUR SEDIMENTATION [id number] 00:00:00* Test Item Value Reference Range Interpretation Comme nts SEDIMENTATION RATE (test cod e = 1017) 22 MM/HOUR URIC [id number] 00:00:00* Test Item Value Reference Range Interpretation Comme nts URIC ACID (test code = 2233) 3.6 MG/DL URIC [id number] 00:00:00* Test Item Value Reference Range Interpretation Comme nts URIC ACID (test code = 2233) 3.6 MG/DL SUKHI REFLEX AUTOIMMUNE AB [id number] 00:00:00* Test Item Value Reference Range Interpretation Comme nts ANTI-NUCLEAR ANTIBODIES (michael t code = 3506) NEGATIVE SUKHI REFLEX AUTOIMMUNE AB [id number] 00:00:00* Test Item Value Reference Range Interpretation Comme nts ANTI-NUCLEAR ANTIBODIES (michael t code = 3506) NEGATIVE COMPREHENSIVE METABOLIC [id number] 00:00:00* Test Item Value Reference Range Interpretation Comme nts GLUCOSE (test code = 2217) 101 MG/DL BUN (test code = 2208) 10 MG/DL CREATININE (test code = 2214) 0.62 MG/DL eGFR AMER. (test cod e = 25183) 123 ML/MIN/1.73 eGFR NON- AMER. (test code = 42240) 106 ML/MIN/1.73 CALC BUN/CREAT (test code = [...] code = 2219) 196 U/L COMPREHENSIVE METABOLIC [id number] 00:00:00* Test Item Value Reference Range Interpretation Comme nts GLUCOSE (test code = 2217) 101 MG/DL BUN (test code = 2208) 10 MG/DL CREATININE (test code = 2214) 0.62 MG/DL eGFR AMER. (test cod e = 23286) 123 ML/MIN/1.73 eGFR NON- AMER. (test code = 57493) 106 ML/MIN/1.73 CALC BUN/CREAT (test code = [...] (test code = 2219) 196 U/L HEMOGLOBIN [id number] 00:00:00* Test Item Value Reference Range Interpretation Comme nts HEMOGLOBIN A1c (test code = 37801) 7.0 % HEMOGLOBIN [id number] 00:00:00* Test Item Value Reference Range Interpretation Comme nts HEMOGLOBIN A1c (test code = 19027) 7.0 % HEMOGLOBIN [id number] 00:00:00* Test Item Value Reference Range Interpretation Comme nts HEMOGLOBIN A1c (test code = 15914) 7.0 % C-REACTIVE [id number] 00:00:00* Test Item Value Reference Range Interpretation Comme nts C-REACTIVE PROTEIN (test cod e = 3513) 0.7 MG/DL C-REACTIVE [id number] 00:00:00* Test Item Value Reference Range Interpretation Comme nts C-REACTIVE PROTEIN (test cod e = 3513) 0.7 MG/DL SEDIMENTATION [id number] 00:00:00* Test Item Value Reference Range Interpretation Comme nts SEDIMENTATION RATE (test cod e = 1017) 22 MM/HOUR SEDIMENTATION [id number] 00:00:00* Test Item Value Reference Range Interpretation Comme nts SEDIMENTATION RATE (test cod e = 1017) 22 MM/HOUR CT ABDOMEN PELVIS W [id number] 04:56:15No acute intra-abdominal or intrapelvic process. Preliminary [...] reviewed this study and agree with the abovereport.[facility] [id number] 03:06:00* Test Item Value Reference Range Interpretation Comme nts APPEARANCE (test code = 3655443389) Hazy Clear A COLOR (test code = 8760906415) Loren Yellow A PH (test code = 4355965149) 4.8-8.0 SP GRAVITY (test code = 1144917406) 1.003-1.030 GLU U QUAL (test code = 2816313214) Normal Normal BLOOD (test code = 2263087919) Negative Negative KETONES (test code = 5181945278) Negative Negative PROTEIN (test code = 2887-8) 100 mg/dL Negative A UROBILIN (test code = 8311979816) 2.0 mg/dL Normal A BILIRUBIN (test code = 9464743842) Negative Negative NITRITE (test code = 6770055066) Negative Negative LEUK CHASITY (test code = 5350893375) Negative Negative RBC/HPF (test code = 8910293389) See_Comment [Automated [employer] ge] The system which generated this result transmitted reference range: 0 - 3 HPF. The reference range was not used to interpret this result as normal/abnormal. WBC/HPF (test code = 6395728840) See_Comment [Automated [employer]] The system which generated this result transmitted reference range: 0 - 5 HPF. The reference range was not used to interpret this result as normal/abnormal. BACTERIA (test code = 3614242690) Few Negative A MUCOUS (test code = 4709660397) Moderate Negative LPF A SQ EPITH (test code = 2282439196) HPF Lab Interpretation (test code = 98430-7) [facility] (83130)2020-07-26 02:41:00* Test Item Value Reference Range Interpretation Comme nts NA (test code = 9353383598) 139 mmol/L 135-145 K (test code = 7641605507) 3.4 mmol/L 3.5-5 L CL (test code = 5352202220) 99 mmol/L 98-108 CO2 TOTAL (test code = 2892867591) 31 mmol/L 23-31 AGAP (test code = 2375011200) 2-16 BUN (test code = 3175072942) 18 mg/dL 7-23 GLUCOSE (test code = 2315436533) 151 mg/dL 70-110 H CREATININE (test code = 5511085581) 0.59 mg/dL 0.5-1.04 TOTAL BILI (test code = 6858535276) 0.8 mg/dL 0.1-1.1 CALCIUM (test code = 7819258963) 9.5 mg/dL 8.6-10.6 T PROTEIN (test code = 2618283099) 7.8 g/dL 6.3-8.2 ALBUMIN (test code = 5114836702) 4.2 g/dL 3.5-5 ALK PHOS (test code = 8322585458) 91 U/L 34-122 ALTv (test code = 1742-6) 24 U/L 5-35 AST(SGOT) (test code = 2283585112) 25 U/L 13-40 eGFR Calculation (Non-) (test code = 5165073637) mL/min/1.73m2 eGFR Calculation () (test code = 9718057023) mL/min/1.73m2 MATTHEW (test code = MATTHEW) Association [...] imaging tests). Lab Interpretation (test code = 53005-1) [facility]:40:00* Test Item Value Reference Range Interpretation Comme nts LIPASE (test code = 4952739008) 149 U/L 0-220 Lab Interpretation (test cod e = 47015-6) Normal [facility] WITH [id number] 02:25:00* Test Item Value Reference Range Interpretation [...] 33.3 g/dL 31.6-35.1 RDW-SD (test code = 87812-9) 40.0 fL 39-49.9 RDW-CV (test code = 788-0) 12.4 % 12-15.5 PLT (test code = 777-3) See_Comment H [Automated message] The system which generated this result transmitted reference range: 166 - 358 10*3/?L. The reference range was not used to interpret this result as normal/abnormal. MPV (test code = 87689-5) 9.7 fL 9.5-12.9 NRBC/100 WBC (test code = 1755009616) See_Comment [Automated message] The system which generated this result transmitted reference range: 0.0 - 10.0 /100 WBCs. The reference range was not used to interpret this result as normal/abnormal. NRBC x10^3 (test code = 3995621935) <0.01 See_Comment [Automated message] The system which generated this result transmitted reference range: 10*3/?L. The reference range was not used to interpret this result as normal/abnormal. GRAN MAT (NEUT) % (test code = 770-8) 80.1 % IMM GRAN % (test code = 5457919225) 0.60 % LYMPH % (test code = 736-9) 10.7 % MONO % (test code = 5905-5) 6.3 % EOS % (test code = 713-8) 1.9 % BASO % (test code = 706-2) 0.4 % GRAN MAT x10^3(ANC) (test code = 3772667863) 14.29 10*3/uL 1.88-7.09 H IMM GRAN x10^3 (test code = 6827964441) 0.10 10*3/uL 0-0.06 H LYMPH x10^3 (test code = 731-0) 1.90 10*3/uL 1.32-3.29 MONO x10^3 (test code = 742-7) 1.12 10*3/uL 0.33-0.92 H EOS x10^3 (test code = 711-2) 0.34 10*3/uL 0.03-0.39 BASO x10^3 (test code = 704-7) 0.07 10*3/uL 0.01-0.07 Lab Interpretation (test code = 49359-4) [facility] [id number] 00:00:00* Test Item Value Reference Range Interpretation Comme nts HEMOGLOBIN A1c (test code = 90889) 10.1 % HEMOGLOBIN [id number] 00:00:00* Test Item Value Reference Range Interpretation Comme nts HEMOGLOBIN A1c (test code = 96196) 10.1 % HEMOGLOBIN [id number] 00:00:00* Test Item Value Reference Range Interpretation Comme nts HEMOGLOBIN A1c (test code = 06071) 10.1 % HEMOGLOBIN [id number] 00:00:00* Test Item Value Reference Range Interpretation Comme nts HEMOGLOBIN A1c (test code = 32346) 10.1 % HEMOGLOBIN [id number] 00:00:00* Test Item Value Reference Range Interpretation Comme nts HEMOGLOBIN A1c (test code = 09745) 10.1 % HEMOGLOBIN [id number] 00:00:00* Test Item Value Reference Range Interpretation Comme nts HEMOGLOBIN A1c (test code = 35872) 10.1 % HEMOGLOBIN [id number] 00:00:00* Test Item Value Reference Range Interpretation Comme nts HEMOGLOBIN A1c (test code = 34644) 10.1 % HEMOGLOBIN [id number] 00:00:00* Test Item Value Reference Range Interpretation Comme nts HEMOGLOBIN A1c (test code = 58805) 10.1 % HEMOGLOBIN [id number] 00:00:00* Test Item Value Reference Range Interpretation Comme nts HEMOGLOBIN A1c (test code = 43215) 10.1 % HEMOGLOBIN [id number] 00:00:00* Test Item Value Reference Range Interpretation Comme nts HEMOGLOBIN A1c (test code = 24828) 10.1 % HEMOGLOBIN [id number] 00:00:00* Test Item Value Reference Range Interpretation Comme nts HEMOGLOBIN A1c (test code = 94122) 10.1 % COMPREHENSIVE METABOLIC [id number] 00:00:00* Test Item Value Reference Range Interpretation Comme nts GLUCOSE (test code = 2217) 310 MG/DL BUN (test code = 2208) 15 MG/DL CREATININE (test code = 2214) 0.55 MG/DL eGFR AMER. (test cod e = 27966) 129 ML/MIN/1.73 eGFR NON- AMER. (test code = 06394) 111 ML/MIN/1.73 CALC BUN/CREAT (test code = [...] code = 2219) 20 U/L COMPREHENSIVE METABOLIC [id number] 00:00:00* Test Item Value Reference Range Interpretation Comme nts GLUCOSE (test code = 2217) 310 MG/DL BUN (test code = 2208) 15 MG/DL CREATININE (test code = 2214) 0.55 MG/DL eGFR AMER. (test cod e = 52650) 129 ML/MIN/1.73 eGFR NON- AMER. (test code = 03398) 111 ML/MIN/1.73 CALC BUN/CREAT (test code = [...] 20 U/L VITAMIN B 12 AND FOLIC [id number] 00:00:00* Test Item Value Reference Range Interpretation Comme nts VITAMIN B-12 (test code = 2840) 708 PG/ML FOLIC ACID (test code = 2695) 11.9 UG/L VITAMIN B 12 AND FOLIC [id number] 00:00:00* Test Item Value Reference Range Interpretation Comme nts VITAMIN B-12 (test code = 2840) 708 PG/ML FOLIC ACID (test code = 2695) 11.9 UG/L CBC W/AUTO [id number] 00:00:00* Test Item Value Reference Range Interpretation [...] code = 1015) 364 K/UL CBC W/AUTO [id number] 00:00:00* Test Item Value Reference Range Interpretation [...] code = 1015) 364 K/UL CBC W/AUTO [id number] 00:00:00* Test Item Value Reference Range Interpretation [...] (test code = 1015) 364 K/UL HEMOGLOBIN [id number] 00:00:00* Test Item Value Reference Range Interpretation Comme nts HEMOGLOBIN A1c (test code = 77883) 12.0 % HEMOGLOBIN [id number] 00:00:00* Test Item Value Reference Range Interpretation Comme nts HEMOGLOBIN A1c (test code = 88355) 12.0 % HEMOGLOBIN [id number] 00:00:00* Test Item Value Reference Range Interpretation Comme nts HEMOGLOBIN A1c (test code = 49347) 12.0 % LIPID [id number] 00:00:00* Test Item Value Reference Range Interpretation Comme nts CHOLESTEROL (test code = 2210) 202 MG/DL TRIGLYCERIDES (test code = 2232) 147 MG/DL HDL CHOLESTEROL (test code = 2220) 57 MG/DL CALC LDL CHOL (test code = 2237) 119 MG/DL RISK RATIO LDL/HDL (test cod e = 2238) 2.09 RATIO LIPID [id number] 00:00:00* Test Item Value Reference Range Interpretation Comme nts CHOLESTEROL (test code = 2210) 202 MG/DL TRIGLYCERIDES (test code = 2232) 147 MG/DL HDL CHOLESTEROL (test code = 2220) 57 MG/DL CALC LDL CHOL (test code = 2237) 119 MG/DL RISK RATIO LDL/HDL (test cod e = 2238) 2.09 RATIO COMPREHENSIVE METABOLIC [id number] 00:00:00* Test Item Value Reference Range Interpretation Comme nts GLUCOSE (test code = 2217) 310 MG/DL BUN (test code = 2208) 15 MG/DL CREATININE (test code = 2214) 0.55 MG/DL eGFR AMER. (test cod e = 53160) 129 ML/MIN/1.73 eGFR NON- AMER. (test code = 55506) 111 ML/MIN/1.73 CALC BUN/CREAT (test code = [...] code = 2219) 20 U/L COMPREHENSIVE METABOLIC [id number] 00:00:00* Test Item Value Reference Range Interpretation Comme nts GLUCOSE (test code = 2217) 310 MG/DL BUN (test code = 2208) 15 MG/DL CREATININE (test code = 2214) 0.55 MG/DL eGFR AMER. (test cod e = 94630) 129 ML/MIN/1.73 eGFR NON- AMER. (test code = 55544) 111 ML/MIN/1.73 CALC BUN/CREAT (test code = [...] 20 U/L VITAMIN B 12 AND FOLIC [id number] 00:00:00* Test Item Value Reference Range Interpretation Comme [facility] VITAMIN B-12 (test code = 2840) 708 PG/ML FOLIC ACID (test code = 2695) 11.9 UG/L VITAMIN B 12 AND FOLIC [id number] 00:00:00* Test Item Value Reference Range Interpretation Comme [facility] VITAMIN B-12 (test code = 2840) 708 PG/ML FOLIC ACID (test code = 2695) 11.9 UG/L CBC W/AUTO [id number] 00:00:00* Test Item Value Reference Range Interpretation [...] code = 1015) 364 K/UL CBC W/AUTO [id number] 00:00:00* Test Item Value Reference Range Interpretation [...] (test code = 1015) 364 K/UL HEMOGLOBIN [id number] 00:00:00* Test Item Value Reference Range Interpretation Comme nts HEMOGLOBIN A1c (test code = 06183) 12.0 % HEMOGLOBIN [id number] 00:00:00* Test Item Value Reference Range Interpretation Comme nts HEMOGLOBIN A1c (test code = 58938) 12.0 % LIPID [id number] 00:00:00* Test Item Value Reference Range Interpretation Comme nts CHOLESTEROL (test code = 2210) 202 MG/DL TRIGLYCERIDES (test code = 2232) 147 MG/DL HDL CHOLESTEROL (test code = 2220) 57 MG/DL CALC LDL CHOL (test code = 2237) 119 MG/DL RISK RATIO LDL/HDL (test cod e = 2238) 2.09 RATIO COMPREHENSIVE METABOLIC [id number] 00:00:00* Test Item Value Reference Range Interpretation Comme nts GLUCOSE (test code = 2217) 310 MG/DL BUN (test code = 2208) 15 MG/DL CREATININE (test code = 2214) 0.55 MG/DL eGFR AMER. (test cod e = 72376) 129 ML/MIN/1.73 eGFR NON- AMER. (test code = 40104) 111 ML/MIN/1.73 CALC BUN/CREAT (test code = [...] 20 U/L VITAMIN B 12 AND FOLIC [id number] 00:00:00* Test Item Value Reference Range Interpretation Comme nts VITAMIN B-12 (test code = 2840) 708 PG/ML FOLIC ACID (test code = 2695) 11.9 UG/L CBC W/AUTO [id number] 00:00:00* Test Item Value Reference Range Interpretation [...] code = 1015) 364 K/UL CBC W/AUTO [id number] 00:00:00* Test Item Value Reference Range Interpretation [...] code = 1015) 364 K/UL CBC W/AUTO [id number] 00:00:00* Test Item Value Reference Range Interpretation [...] (test code = 1015) 364 K/UL HEMOGLOBIN [id number] 00:00:00* Test Item Value Reference Range Interpretation Comme nts HEMOGLOBIN A1c (test code = 66920) 12.0 % HEMOGLOBIN [id number] 00:00:00* Test Item Value Reference Range Interpretation Comme nts HEMOGLOBIN A1c (test code = 33047) 12.0 % HEMOGLOBIN [id number] 00:00:00* Test Item Value Reference Range Interpretation Comme nts HEMOGLOBIN A1c (test code = 98145) 12.0 % LIPID [id number] 00:00:00* Test Item Value Reference Range Interpretation Comme nts CHOLESTEROL (test code = 2210) 202 MG/DL TRIGLYCERIDES (test code = 2232) 147 MG/DL HDL CHOLESTEROL (test code = 2220) 57 MG/DL CALC LDL CHOL (test code = 2237) 119 MG/DL RISK RATIO LDL/HDL (test cod e = 2238) 2.09 RATIO LIPID [id number] 00:00:00* Test Item Value Reference Range Interpretation Comme nts CHOLESTEROL (test code = 2210) 202 MG/DL TRIGLYCERIDES (test code = 2232) 147 MG/DL HDL CHOLESTEROL (test code = 2220) 57 MG/DL CALC LDL CHOL (test code = 2237) 119 MG/DL RISK RATIO LDL/HDL (test cod e = 2238) 2.09 RATIO COMPREHENSIVE METABOLIC [id number] 00:00:00* Test Item Value Reference Range Interpretation Comme nts GLUCOSE (test code = 2217) 310 MG/DL BUN (test code = 2208) 15 MG/DL CREATININE (test code = 2214) 0.55 MG/DL eGFR AMER. (test cod e = 49495) 129 ML/MIN/1.73 eGFR NON- AMER. (test code = 36206) 111 ML/MIN/1.73 CALC BUN/CREAT (test code = [...] code = 2219) 20 U/L COMPREHENSIVE METABOLIC [id number] 00:00:00* Test Item Value Reference Range Interpretation Comme nts GLUCOSE (test code = 2217) 310 MG/DL BUN (test code = 2208) 15 MG/DL CREATININE (test code = 2214) 0.55 MG/DL eGFR AMER. (test cod e = 90474) 129 ML/MIN/1.73 eGFR NON- AMER. (test code = 37587) 111 ML/MIN/1.73 CALC BUN/CREAT (test code = [...] 20 U/L VITAMIN B 12 AND FOLIC [id number] 00:00:00* Test Item Value Reference Range Interpretation Comme nts VITAMIN B-12 (test code = 2840) 708 PG/ML FOLIC ACID (test code = 2695) 11.9 UG/L VITAMIN B 12 AND FOLIC [id number] 00:00:00* Test Item Value Reference Range Interpretation Comme nts VITAMIN B-12 (test code = 2840) 708 PG/ML FOLIC ACID (test code = 2695) 11.9 UG/L CBC W/AUTO [id number] 00:00:00* Test Item Value Reference Range Interpretation [...] code = 1015) 364 K/UL CBC W/AUTO [id number] 00:00:00* Test Item Value Reference Range Interpretation [...] code = 1015) 364 K/UL CBC W/AUTO [id number] 00:00:00* Test Item Value Reference Range Interpretation [...] (test code = 1015) 364 K/UL HEMOGLOBIN [id number] 00:00:00* Test Item Value Reference Range Interpretation Comme nts HEMOGLOBIN A1c (test code = 04706) 12.0 % HEMOGLOBIN [id number] 00:00:00* Test Item Value Reference Range Interpretation Comme nts HEMOGLOBIN A1c (test code = 51233) 12.0 % HEMOGLOBIN [id number] 00:00:00* Test Item Value Reference Range Interpretation Comme nts HEMOGLOBIN A1c (test code = 75058) 12.0 % LIPID [id number] 00:00:00* Test Item Value Reference Range Interpretation Comme nts CHOLESTEROL (test code = 2210) 202 MG/DL TRIGLYCERIDES (test code = 2232) 147 MG/DL HDL CHOLESTEROL (test code = 2220) 57 MG/DL CALC LDL CHOL (test code = 2237) 119 MG/DL RISK RATIO LDL/HDL (test cod e = 2238) 2.09 RATIO LIPID [id number] 00:00:00* Test Item Value Reference Range Interpretation Comme nts CHOLESTEROL (test code = 2210) 202 MG/DL TRIGLYCERIDES (test code = 2232) 147 MG/DL HDL CHOLESTEROL (test code = 2220) 57 MG/DL CALC LDL CHOL (test code = 2237) 119 MG/DL RISK RATIO LDL/HDL (test cod e = 2238) 2.09 RATIO SARS-CoV-2 (COVID-19) by RT-PCR (HIGH RISK)2020-04-01 00:00:00* Test Item Value Reference Range Interpretation Comme nts SARS-CoV-2 INTERPRETATION (t est code = 49450) NEGATIVE SOURCE (test code = 56728) NOT SPECIFIED SARS-CoV-2 (COVID-19) by RT-PCR (HIGH RISK)2020-04-01 00:00:00* Test Item Value Reference Range Interpretation Comme nts SARS-CoV-2 INTERPRETATION (t est code = 55494) NEGATIVE SOURCE (test code = 44408) NOT SPECIFIED SARS-CoV-2 (COVID-19) by RT-PCR (HIGH RISK)2020-04-01 00:00:00* Test Item Value Reference Range Interpretation Comme nts SARS-CoV-2 INTERPRETATION (t est code = 95406) NEGATIVE SOURCE (test code = 79373) NOT SPECIFIED SARS-CoV-2 (COVID-19) by RT-PCR (HIGH RISK)2020-04-01 00:00:00* Test Item Value Reference Range Interpretation Comme nts SARS-CoV-2 INTERPRETATION (t est code = 52933) NEGATIVE SOURCE (test code = 44619) NOT SPECIFIED SARS-CoV-2 (COVID-19) by RT-PCR (HIGH RISK)2020-04-01 00:00:00* Test Item Value Reference Range Interpretation Comme nts SARS-CoV-2 INTERPRETATION (t est code = 68702) NEGATIVE SOURCE (test code = 06907) NOT SPECIFIED SARS-CoV-2 (COVID-19) by RT-PCR (HIGH RISK)2020-04-01 00:00:00* Test Item Value Reference Range Interpretation Comme nts SARS-CoV-2 INTERPRETATION (t est code = 86215) NEGATIVE SOURCE (test code = 10310) NOT SPECIFIED SARS-CoV-2 (COVID-19) by RT-PCR (HIGH RISK)2020-04-01 00:00:00* Test Item Value Reference Range Interpretation Comme nts SARS-CoV-2 INTERPRETATION (t est code = 18077) NEGATIVE SOURCE (test code = 30763) NOT SPECIFIED PAP TEST, THINPREP, [id number] 00:00:00* Test Item Value Reference Range Interpretation Comme nts SOURCE: (test code = 8001) Cervical/Endocervical SLIDES: (test code = 8011) 1 LMP: (test code = 8021) MIRENA SPECIMEN ADEQUACY: (test code = 37617) (NOTE) INTERPRETATION: (test code = 14004) NILM/NO EPITH. ABNORMALITY;SEE BELOW OTHER COMMENTS: (test code = 8081) (NOTE) COVER CUTTER MACHINE: (test code = 8101) BETTY Cline(ASCP)IAC QC TECHNOLOGIST: (test code = 8111) Ney BullardSCT(ASCP),IAC LOCATION: (test code = 96407) (NOTE) CPT: (test code = 8140) (NOTE) PAP TEST, THINPREP, [id number] 00:00:00* Test Item Value Reference Range Interpretation Comme nts SOURCE: (test code = 8001) Cervical/Endocervical SLIDES: (test code = 8011) 1 LMP: (test code = 8021) MIRENA SPECIMEN ADEQUACY: (test code = 82112) (NOTE) INTERPRETATION: (test code = 64254) NILM/NO EPITH. ABNORMALITY;SEE BELOW OTHER COMMENTS: (test code = 8081) (NOTE) COVER CUTTER MACHINE: (test code = 8101) BETTY Cline(ASCP)IAC QC TECHNOLOGIST: (test code = 8111) Ney BullardSCT(ASCP),IAC LOCATION: (test code = 96057) (NOTE) CPT: (test code = 8140) (NOTE) PAP TEST, THINPREP, [id number] 00:00:00* Test Item Value Reference Range Interpretation Comme nts SOURCE: (test code = 8001) Cervical/Endocervical SLIDES: (test code = 8011) 1 LMP: (test code = 8021) MIRENA SPECIMEN ADEQUACY: (test code = 44708) (NOTE) INTERPRETATION: (test code = 42997) NILM/NO EPITH. ABNORMALITY;SEE BELOW OTHER COMMENTS: (test code = 8081) (NOTE) COVER CUTTER MACHINE: (test code = 8101) BETTY Cline(ASCP)IAC QC TECHNOLOGIST: (test code = 8111) Ney BullardSCT(ASCP),IAC LOCATION: (test code = 30080) (NOTE) CPT: (test code = 8140) (NOTE) PAP TEST, THINPREP, [id number] 00:00:00* Test Item Value Reference Range Interpretation Comme nts SOURCE: (test code = 8001) Cervical/Endocervical SLIDES: (test code = 8011) 1 LMP: (test code = 8021) MIRENA SPECIMEN ADEQUACY: (test code = 99319) (NOTE) INTERPRETATION: (test code = 69655) NILM/NO EPITH. ABNORMALITY;SEE BELOW OTHER COMMENTS: (test code = 8081) (NOTE) COVER CUTTER MACHINE: (test code = 8101) BETTY Cline(ASCP)IAC QC TECHNOLOGIST: (test code = 8111) Ney BullardSCT(ASCP),IAC LOCATION: (test code = 03803) (NOTE) CPT: (test code = 8140) (NOTE) PAP TEST, THINPREP, [id number] 00:00:00* Test Item Value Reference Range Interpretation Comme nts SOURCE: (test code = 8001) Cervical/Endocervical SLIDES: (test code = 8011) 1 LMP: (test code = 8021) MIRENA SPECIMEN ADEQUACY: (test code = 06964) (NOTE) INTERPRETATION: (test code = 33531) NILM/NO EPITH. ABNORMALITY;SEE BELOW OTHER COMMENTS: (test code = 8081) (NOTE) COVER CUTTER MACHINE: (test code = 8101) BETTY Cline(ASCP)IAC QC TECHNOLOGIST: (test code = 8111) Ney BullardSCT(ASCP),IAC LOCATION: (test code = 92999) (NOTE) CPT: (test code = 8140) (NOTE) PAP TEST, THINPREP, [id number] 00:00:00* Test Item Value Reference Range Interpretation Comme nts SOURCE: (test code = 8001) Cervical/Endocervical SLIDES: (test code = 8011) 1 LMP: (test code = 8021) MIRENA SPECIMEN ADEQUACY: (test code = 69111) (NOTE) INTERPRETATION: (test code = 08736) NILM/NO EPITH. ABNORMALITY;SEE BELOW OTHER COMMENTS: (test code = 8081) (NOTE) COVER CUTTER MACHINE: (test code = 8101) BETTY Cline(ASCP)IAC QC TECHNOLOGIST: (test code = 8111) Ney BullardSCT(ASCP),IAC LOCATION: (test code = 98998) (NOTE) CPT: (test code = 8140) (NOTE) PAP TEST, THINPREP, [id number] 00:00:00* Test Item Value Reference Range Interpretation Comme nts SOURCE: (test code = 8001) Cervical/Endocervical SLIDES: (test code = 8011) 1 LMP: (test code = 8021) MIRENA SPECIMEN ADEQUACY: (test code = 70216) (NOTE) INTERPRETATION: (test code = 59194) NILM/NO EPITH. ABNORMALITY;SEE BELOW OTHER COMMENTS: (test code = 8081) (NOTE) COVER CUTTER MACHINE: (test code = 8101) BETTY Cline(ASCP)IAC QC TECHNOLOGIST: (test code = 8111) Ney Euperio,SCT(ASCP),IAC LOCATION: (test code = 17592) (NOTE) CPT: (test code = 8140) (NOTE) HPV HIGH RISK WITH GENOTYPE, [id number] 00:00:00* Test Item Value Reference Range Interpretation Comme nts HPV HIGH RISK INTERP (test c ode = 35516) NEGATIVE HPV 16 (test code = 57407) NEGATIVE HPV 18 (test code = 98461) NEGATIVE HPV, HR, OTHER GENOTYPES (te st code = 54211) NEGATIVE HPV HIGH RISK WITH GENOTYPE, [id number] 00:00:00* Test Item Value Reference Range Interpretation Comme nts HPV HIGH RISK INTERP (test c ode = 13115) NEGATIVE HPV 16 (test code = 13297) NEGATIVE HPV 18 (test code = 39471) NEGATIVE HPV, HR, OTHER GENOTYPES (te st code = 73129) NEGATIVE HPV HIGH RISK WITH GENOTYPE, [id number] 00:00:00* Test Item Value Reference Range Interpretation Comme nts HPV HIGH RISK INTERP (test c ode = 90953) NEGATIVE HPV 16 (test code = 32667) NEGATIVE HPV 18 (test code = 06687) NEGATIVE HPV, HR, OTHER GENOTYPES (te st code = 03403) NEGATIVE HPV HIGH RISK WITH GENOTYPE, [id number] 00:00:00* Test Item Value Reference Range Interpretation Comme nts HPV HIGH RISK INTERP (test c ode = 78484) NEGATIVE HPV 16 (test code = 63012) NEGATIVE HPV 18 (test code = 55838) NEGATIVE HPV, HR, OTHER GENOTYPES (te st code = 97088) NEGATIVE HPV HIGH RISK WITH GENOTYPE, [id number] 00:00:00* Test Item Value Reference Range Interpretation Comme nts HPV HIGH RISK INTERP (test c ode = 88970) NEGATIVE HPV 16 (test code = 90948) NEGATIVE HPV 18 (test code = 99039) NEGATIVE HPV, HR, OTHER GENOTYPES (te st code = 99499) NEGATIVE HPV HIGH RISK WITH GENOTYPE, [id number] 00:00:00* Test Item Value Reference Range Interpretation Comme nts HPV HIGH RISK INTERP (test c ode = 43872) NEGATIVE HPV 16 (test code = 18072) NEGATIVE HPV 18 (test code = 92290) NEGATIVE HPV, HR, OTHER GENOTYPES (te st code = 83003) NEGATIVE HPV HIGH RISK WITH GENOTYPE, [id number] 00:00:00* Test Item Value Reference Range Interpretation Comme nts HPV HIGH RISK INTERP (test c ode = 72699) NEGATIVE HPV 16 (test code = 06544) NEGATIVE HPV 18 (test code = 68493) NEGATIVE HPV, HR, OTHER GENOTYPES (te st code = 90960) NEGATIVE GC AND CHLAMYDIA AMPLIFIED, [id number] 00:00:00* Test Item Value Reference Range Interpretation Comme nts GONORRHEA, TMA (test code = 20015) NEGATIVE CHLAMYDIA, TMA (test code = 09515) NEGATIVE GC AND CHLAMYDIA AMPLIFIED, [id number] 00:00:00* Test Item Value Reference Range Interpretation Comme nts GONORRHEA, TMA (test code = 50621) NEGATIVE CHLAMYDIA, TMA (test code = 95669) NEGATIVE GC AND CHLAMYDIA AMPLIFIED, [id number] 00:00:00* Test Item Value Reference Range Interpretation Comme nts GONORRHEA, TMA (test code = 66506) NEGATIVE CHLAMYDIA, TMA (test code = 91635) NEGATIVE GC AND CHLAMYDIA AMPLIFIED, [id number] 00:00:00* Test Item Value Reference Range Interpretation Comme nts GONORRHEA, TMA (test code = 07046) NEGATIVE CHLAMYDIA, TMA (test code = 15538) NEGATIVE GC AND CHLAMYDIA AMPLIFIED, [id number] 00:00:00* Test Item Value Reference Range Interpretation Comme nts GONORRHEA, TMA (test code = 82203) NEGATIVE CHLAMYDIA, TMA (test code = 30229) NEGATIVE GC AND CHLAMYDIA AMPLIFIED, [id number] 00:00:00* Test Item Value Reference Range Interpretation Comme nts GONORRHEA, TMA (test code = 32005) NEGATIVE CHLAMYDIA, TMA (test code = 31141) NEGATIVE GC AND CHLAMYDIA AMPLIFIED, [id number] 00:00:00* Test Item Value Reference Range Interpretation Comme nts GONORRHEA, TMA (test code = 07663) NEGATIVE CHLAMYDIA, TMA (test code = 52378) NEGATIVE HEMOGLOBIN [id number] 00:00:00* Test Item Value Reference Range Interpretation Comme nts HEMOGLOBIN A1c (test code = 80974) 11.9 % HEMOGLOBIN [id number] 00:00:00* Test Item Value Reference Range Interpretation Comme nts HEMOGLOBIN A1c (test code = 50586) 11.9 % HEMOGLOBIN [id number] 00:00:00* Test Item Value Reference Range Interpretation Comme nts HEMOGLOBIN A1c (test code = 08375) 11.9 % HEMOGLOBIN [id number] 00:00:00* Test Item Value Reference Range Interpretation Comme nts HEMOGLOBIN A1c (test code = 86463) 11.9 % HEMOGLOBIN [id number] 00:00:00* Test Item Value Reference Range Interpretation Comme nts HEMOGLOBIN A1c (test code = 49753) 11.9 % HEMOGLOBIN [id number] 00:00:00* Test Item Value Reference Range Interpretation Comme nts HEMOGLOBIN A1c (test code = 44281) 11.9 % HEMOGLOBIN [id number] 00:00:00* Test Item Value Reference Range Interpretation Comme nts HEMOGLOBIN A1c (test code = 82426) 11.9 % HEMOGLOBIN [id number] 00:00:00* Test Item Value Reference Range Interpretation Comme nts HEMOGLOBIN A1c (test code = 88592) 11.9 % HEMOGLOBIN [id number] 00:00:00* Test Item Value Reference Range Interpretation Comme nts HEMOGLOBIN A1c (test code = 59285) 11.9 % HEMOGLOBIN [id number] 00:00:00* Test Item Value Reference Range Interpretation Comme nts HEMOGLOBIN A1c (test code = 68474) 11.9 % HEMOGLOBIN [id number] 00:00:00* Test Item Value Reference Range Interpretation Comme nts HEMOGLOBIN A1c (test code = 32070) 11.9 % COMPREHENSIVE METABOLIC [id number] 00:00:00* Test Item Value Reference Range Interpretation Comme nts GLUCOSE (test code = 2217) 202 MG/DL BUN (test code = 2208) 9 MG/DL CREATININE (test code = 2214) 0.50 MG/DL eGFR AMER. (test cod e = 18258) 135 ML/MIN/1.73 eGFR NON- AMER. (test code = 14822) 116 ML/MIN/1.73 CALC BUN/CREAT (test code = [...] code = 2219) 20 U/L COMPREHENSIVE METABOLIC [id number] 00:00:00* Test Item Value Reference Range Interpretation Comme nts GLUCOSE (test code = 2217) 202 MG/DL BUN (test code = 2208) 9 MG/DL CREATININE (test code = 2214) 0.50 MG/DL eGFR AMER. (test cod e = 44634) 135 ML/MIN/1.73 eGFR NON- AMER. (test code = 73601) 116 ML/MIN/1.73 CALC BUN/CREAT (test code = [...] code = 2219) 20 U/L COMPREHENSIVE METABOLIC [id number] 00:00:00* Test Item Value Reference Range Interpretation Comme nts GLUCOSE (test code = 2217) 202 MG/DL BUN (test code = 2208) 9 MG/DL CREATININE (test code = 2214) 0.50 MG/DL eGFR AMER. (test cod e = 55687) 135 ML/MIN/1.73 eGFR NON- AMER. (test code = 65046) 116 ML/MIN/1.73 CALC BUN/CREAT (test code = [...] code = 2219) 20 U/L COMPREHENSIVE METABOLIC [id number] 00:00:00* Test Item Value Reference Range Interpretation Comme nts GLUCOSE (test code = 2217) 202 MG/DL BUN (test code = 2208) 9 MG/DL CREATININE (test code = 2214) 0.50 MG/DL eGFR AMER. (test cod e = 04349) 135 ML/MIN/1.73 eGFR NON- AMER. (test code = 71966) 116 ML/MIN/1.73 CALC BUN/CREAT (test code = [...] code = 2219) 20 U/L COMPREHENSIVE METABOLIC [id number] 00:00:00* Test Item Value Reference Range Interpretation Comme nts GLUCOSE (test code = 2217) 202 MG/DL BUN (test code = 2208) 9 MG/DL CREATININE (test code = 2214) 0.50 MG/DL eGFR AMER. (test cod e = 92818) 135 ML/MIN/1.73 eGFR NON- AMER. (test code = 50388) 116 ML/MIN/1.73 CALC BUN/CREAT (test code = [...] code = 2219) 20 U/L COMPREHENSIVE METABOLIC [id number] 00:00:00* Test Item Value Reference Range Interpretation Comme nts GLUCOSE (test code = 2217) 202 MG/DL BUN (test code = 2208) 9 MG/DL CREATININE (test code = 2214) 0.50 MG/DL eGFR AMER. (test cod e = 57041) 135 ML/MIN/1.73 eGFR NON- AMER. (test code = 19992) 116 ML/MIN/1.73 CALC BUN/CREAT (test code = [...] code = 2219) 20 U/L COMPREHENSIVE METABOLIC [id number] 00:00:00* Test Item Value Reference Range Interpretation Comme nts GLUCOSE (test code = 2217) 202 MG/DL BUN (test code = 2208) 9 MG/DL CREATININE (test code = 2214) 0.50 MG/DL eGFR AMER. (test cod e = 17407) 135 ML/MIN/1.73 eGFR NON- AMER. (test code = 95239) 116 ML/MIN/1.73 CALC BUN/CREAT (test code = [...] (test code = 2219) 20 U/L HEMOGLOBIN [id number] 00:00:00* Test Item Value Reference Range Interpretation Comme nts HEMOGLOBIN A1c (test code = 91205) 11.2 % HEMOGLOBIN [id number] 00:00:00* Test Item Value Reference Range Interpretation Comme nts HEMOGLOBIN A1c (test code = 88996) 11.2 % HEMOGLOBIN [id number] 00:00:00* Test Item Value Reference Range Interpretation Comme nts HEMOGLOBIN A1c (test code = 53793) 11.2 % HEMOGLOBIN [id number] 00:00:00* Test Item Value Reference Range Interpretation Comme nts HEMOGLOBIN A1c (test code = 35415) 11.2 % HEMOGLOBIN [id number] 00:00:00* Test Item Value Reference Range Interpretation Comme nts HEMOGLOBIN A1c (test code = 83826) 11.2 % HEMOGLOBIN [id number] 00:00:00* Test Item Value Reference Range Interpretation Comme nts HEMOGLOBIN A1c (test code = 06980) 11.2 % HEMOGLOBIN [id number] 00:00:00* Test Item Value Reference Range Interpretation Comme nts HEMOGLOBIN A1c (test code = 96165) 11.2 % HEMOGLOBIN [id number] 00:00:00* Test Item Value Reference Range Interpretation Comme nts HEMOGLOBIN A1c (test code = 12361) 11.2 % HEMOGLOBIN [id number] 00:00:00* Test Item Value Reference Range Interpretation Comme nts HEMOGLOBIN A1c (test code = 34661) 11.2 % HEMOGLOBIN [id number] 00:00:00* Test Item Value Reference Range Interpretation Comme nts HEMOGLOBIN A1c (test code = 31698) 11.2 % HEMOGLOBIN [id number] 00:00:00* Test Item Value Reference Range Interpretation Comme nts HEMOGLOBIN A1c (test code = 62494) 11.2 % PAP TEST, THINPREP, [id number] 00:00:00* Test Item Value Reference Range Interpretation Comme nts SOURCE: (test code = 8001) Cervical/Endocervical SLIDES: (test code = 8011) 1 LMP: (test code = 8021) SPECIMEN ADEQUACY: (test code = 62910) (NOTE) INTERPRETATION: (test code = 03249) NO EPITHELIAL ABNORMALITY SEE BELOW OTHER COMMENTS: (test code = 8081) (NOTE) COVER CUTTER MACHINE: (test code = 8101) Shell Castaneda, CT(ASCP)IAC QC TECHNOLOGIST: (test code = 8111) Ney Bullard,SCT(ASCP),IAC LOCATION: (test code = 48947) (NOTE) CPT: (test code = 8140) (NOTE) PAP TEST, THINPREP, [id number] 00:00:00* Test Item Value Reference Range Interpretation Comme nts SOURCE: (test code = 8001) Cervical/Endocervical SLIDES: (test code = 8011) 1 LMP: (test code = 8021) SPECIMEN ADEQUACY: (test code = 99325) (NOTE) INTERPRETATION: (test code = 07200) NO EPITHELIAL ABNORMALITY SEE BELOW OTHER COMMENTS: (test code = 8081) (NOTE) COVER CUTTER MACHINE: (test code = 8101) BETTY Wilson(ASCP)IAC QC TECHNOLOGIST: (test code = 8111) BOYD Gabriel(ASCP),IAC LOCATION: (test code = 22911) (NOTE) CPT: (test code = 8140) (NOTE) PAP TEST, THINPREP, [id number] 00:00:00* Test Item Value Reference Range Interpretation Comme nts SOURCE: (test code = 8001) Cervical/Endocervical SLIDES: (test code = 8011) 1 LMP: (test code = 8021) SPECIMEN ADEQUACY: (test code = 85163) (NOTE) INTERPRETATION: (test code = 69521) NO EPITHELIAL ABNORMALITY SEE BELOW OTHER COMMENTS: (test code = 8081) (NOTE) COVER CUTTER MACHINE: (test code = 8101) BETTY Wilson(ASCP)IAC QC TECHNOLOGIST: (test code = 8111) BOYD Gabriel(ASCP),IAC LOCATION: (test code = 48534) (NOTE) CPT: (test code = 8140) (NOTE) PAP TEST, THINPREP, [id number] 00:00:00* Test Item Value Reference Range Interpretation Comme nts SOURCE: (test code = 8001) Cervical/Endocervical SLIDES: (test code = 8011) 1 LMP: (test code = 8021) SPECIMEN ADEQUACY: (test code = 46806) (NOTE) INTERPRETATION: (test code = 66732) NO EPITHELIAL ABNORMALITY SEE BELOW OTHER COMMENTS: (test code = 8081) (NOTE) COVER CUTTER MACHINE: (test code = 8101) BETTY Wilson(ASCP)IAC QC TECHNOLOGIST: (test code = 8111) BOYD Gabriel(ASCP),IAC LOCATION: (test code = 95751) (NOTE) CPT: (test code = 8140) (NOTE) PAP TEST, THINPREP, [id number] 00:00:00* Test Item Value Reference Range Interpretation Comme nts SOURCE: (test code = 8001) Cervical/Endocervical SLIDES: (test code = 8011) 1 LMP: (test code = 8021) SPECIMEN ADEQUACY: (test code = 80133) (NOTE) INTERPRETATION: (test code = 53095) NO EPITHELIAL ABNORMALITY SEE BELOW OTHER COMMENTS: (test code = 8081) (NOTE) COVER CUTTER MACHINE: (test code = 8101) BETTY Wilson(ASCP)IAC QC TECHNOLOGIST: (test code = 8111) BOYD Gabriel(ASCP),IAC LOCATION: (test code = 62229) (NOTE) CPT: (test code = 8140) (NOTE) PAP TEST, THINPREP, [id number] 00:00:00* Test Item Value Reference Range Interpretation Comme nts SOURCE: (test code = 8001) Cervical/Endocervical SLIDES: (test code = 8011) 1 LMP: (test code = 8021) SPECIMEN ADEQUACY: (test code = 79310) (NOTE) INTERPRETATION: (test code = 95402) NO EPITHELIAL ABNORMALITY SEE BELOW OTHER COMMENTS: (test code = 8081) (NOTE) COVER CUTTER MACHINE: (test code = 8101) BETTY Wilson(ASCP)IAC QC TECHNOLOGIST: (test code = 8111) BOYD Gabriel(ASCP),IAC LOCATION: (test code = 35662) (NOTE) CPT: (test code = 8140) (NOTE) PAP TEST, THINPREP, [id number] 00:00:00* Test Item Value Reference Range Interpretation Comme nts SOURCE: (test code = 8001) Cervical/Endocervical SLIDES: (test code = 8011) 1 LMP: (test code = 8021) SPECIMEN ADEQUACY: (test code = 54368) (NOTE) INTERPRETATION: (test code = 41093) NO EPITHELIAL ABNORMALITY SEE BELOW OTHER COMMENTS: (test code = 8081) (NOTE) COVER CUTTER MACHINE: (test code = 8101) Shell Castaneda, CT(ASCP)IAC QC TECHNOLOGIST: (test code = 8111) Ney Bullard,SCT(ASCP),IAC LOCATION: (test code = 07933) (NOTE) CPT: (test code = 8140) (NOTE) HPV HIGH RISK WITH GENOTYPE, [id number] 00:00:00* Test Item Value Reference Range Interpretation Comme nts HPV HIGH RISK INTERP (test c ode = 54160) POSITIVE HPV 16 (test code = 32021) NEGATIVE HPV 18 (test code = 88881) NEGATIVE HPV, HR, OTHER GENOTYPES (te st code = 95484) POSITIVE HPV HIGH RISK WITH GENOTYPE, [id number] 00:00:00* Test Item Value Reference Range Interpretation Comme nts HPV HIGH RISK INTERP (test c ode = 38764) POSITIVE HPV 16 (test code = 31561) NEGATIVE HPV 18 (test code = 29524) NEGATIVE HPV, HR, OTHER GENOTYPES (te st code = 31559) POSITIVE HPV HIGH RISK WITH GENOTYPE, [id number] 00:00:00* Test Item Value Reference Range Interpretation Comme nts HPV HIGH RISK INTERP (test c ode = 99739) POSITIVE HPV 16 (test code = 89386) NEGATIVE HPV 18 (test code = 96310) NEGATIVE HPV, HR, OTHER GENOTYPES (te st code = 09322) POSITIVE HPV HIGH RISK WITH GENOTYPE, [id number] 00:00:00* Test Item Value Reference Range Interpretation Comme nts HPV HIGH RISK INTERP (test c ode = 33660) POSITIVE HPV 16 (test code = 04620) NEGATIVE HPV 18 (test code = 88216) NEGATIVE HPV, HR, OTHER GENOTYPES (te st code = 74701) POSITIVE HPV HIGH RISK WITH GENOTYPE, [id number] 00:00:00* Test Item Value Reference Range Interpretation Comme nts HPV HIGH RISK INTERP (test c ode = 35269) POSITIVE HPV 16 (test code = 97516) NEGATIVE HPV 18 (test code = 39081) NEGATIVE HPV, HR, OTHER GENOTYPES (te st code = 10787) POSITIVE HPV HIGH RISK WITH GENOTYPE, [id number] 00:00:00* Test Item Value Reference Range Interpretation Comme nts HPV HIGH RISK INTERP (test c ode = 84972) POSITIVE HPV 16 (test code = 45530) NEGATIVE HPV 18 (test code = 57644) NEGATIVE HPV, HR, OTHER GENOTYPES (te st code = 80002) POSITIVE HPV HIGH RISK WITH GENOTYPE, [id number] 00:00:00* Test Item Value Reference Range Interpretation Comme nts HPV HIGH RISK INTERP (test c ode = 63959) POSITIVE HPV 16 (test code = 00302) NEGATIVE HPV 18 (test code = 96548) NEGATIVE HPV, HR, OTHER GENOTYPES (te st code = 62368) POSITIVE HEMOGLOBIN [id number] 00:00:00* Test Item Value Reference Range Interpretation Comme nts HEMOGLOBIN A1c (test code = 93662) 9.5 % HEMOGLOBIN [id number] 00:00:00* Test Item Value Reference Range Interpretation Comme nts HEMOGLOBIN A1c (test code = 23025) 9.5 % THYROID II PROFILE (T3U, T4, [...] code = 2821) 2.3 UIU/ML COMPREHENSIVE METABOLIC [id number] 00:00:00* Test Item Value Reference Range Interpretation Comme nts GLUCOSE (test code = 2217) 252 MG/DL BUN (test code = 2208) 13 MG/DL CREATININE (test code = 2214) 0.57 MG/DL eGFR AMER. (test cod e = 62472) 131 ML/MIN/1.73 eGFR NON- AMER. (test code = 63070) 113 ML/MIN/1.73 CALC BUN/CREAT (test code = [...] code = 2219) 16 U/L COMPREHENSIVE METABOLIC [id number] 00:00:00* Test Item Value Reference Range Interpretation Comme nts GLUCOSE (test code = 2217) 252 MG/DL BUN (test code = 2208) 13 MG/DL CREATININE (test code = 2214) 0.57 MG/DL eGFR AMER. (test cod e = 53000) 131 ML/MIN/1.73 eGFR NON- AMER. (test code = 00753) 113 ML/MIN/1.73 CALC BUN/CREAT (test code = [...] (test code = 2219) 16 U/L LIPID [id number] 00:00:00* Test Item Value Reference Range Interpretation Comme nts CHOLESTEROL (test code = 2210) 167 MG/DL TRIGLYCERIDES (test code = 2232) 118 MG/DL HDL CHOLESTEROL (test code = 2220) 57 MG/DL CALC LDL CHOL (test code = 2237) 86 MG/DL RISK RATIO LDL/HDL (test cod e = 2238) 1.52 RATIO LIPID [id number] 00:00:00* Test Item Value Reference Range Interpretation Comme nts CHOLESTEROL (test code = 2210) 167 MG/DL TRIGLYCERIDES (test code = 2232) 118 MG/DL HDL CHOLESTEROL (test code = 2220) 57 MG/DL CALC LDL CHOL (test code = 2237) 86 MG/DL RISK RATIO LDL/HDL (test cod e = 2238) 1.52 RATIO CBC W/AUTO [id number] 00:00:00* Test Item Value Reference Range Interpretation [...] code = 1015) 360 K/UL CBC W/AUTO [id number] 00:00:00* Test Item Value Reference Range Interpretation [...] code = 1015) 360 K/UL CBC W/AUTO [id number] 00:00:00* Test Item Value Reference Range Interpretation [...] (test code = 1015) 360 K/UL HEMOGLOBIN [id number] 00:00:00* Test Item Value Reference Range Interpretation Comme nts HEMOGLOBIN A1c (test code = 41130) 9.5 % HEMOGLOBIN [id number] 00:00:00* Test Item Value Reference Range Interpretation Comme nts HEMOGLOBIN A1c (test code = 77849) 9.5 % HEMOGLOBIN [id number] 00:00:00* Test Item Value Reference Range Interpretation Comme nts HEMOGLOBIN A1c (test code = 24583) 9.5 % THYROID II PROFILE (T3U, T4, [...] code = 2821) 2.3 UIU/ML COMPREHENSIVE METABOLIC [id number] 00:00:00* Test Item Value Reference Range Interpretation Comme nts GLUCOSE (test code = 2217) 252 MG/DL BUN (test code = 2208) 13 MG/DL CREATININE (test code = 2214) 0.57 MG/DL eGFR AMER. (test cod e = 27392) 131 ML/MIN/1.73 eGFR NON- AMER. (test code = 48399) 113 ML/MIN/1.73 CALC BUN/CREAT (test code = [...] (test code = 2219) 16 U/L LIPID [id number] 00:00:00* Test Item Value Reference Range Interpretation Comme nts CHOLESTEROL (test code = 2210) 167 MG/DL TRIGLYCERIDES (test code = 2232) 118 MG/DL HDL CHOLESTEROL (test code = 2220) 57 MG/DL CALC LDL CHOL (test code = 2237) 86 MG/DL RISK RATIO LDL/HDL (test cod e = 2238) 1.52 RATIO CBC W/AUTO [id number] 00:00:00* Test Item Value Reference Range Interpretation [...] code = 1015) 360 K/UL CBC W/AUTO [id number] 00:00:00* Test Item Value Reference Range Interpretation [...] (test code = 1015) 360 K/UL HEMOGLOBIN [id number] 00:00:00* Test Item Value Reference Range Interpretation Comme nts HEMOGLOBIN A1c (test code = 53142) 9.5 % HEMOGLOBIN [id number] 00:00:00* Test Item Value Reference Range Interpretation Comme nts HEMOGLOBIN A1c (test code = 66281) 9.5 % THYROID II PROFILE (T3U, T4, T7, [id number] 00:00:00* Test Item Value Reference Range Interpretation Comme nts T3 UPTAKE (test code = 2817) 27.5 % T4 (THYROXINE) (test code = 2819) 8.7 UG/DL CALCULATED T7 (FTI) (test co de = 2820) 2.39 TSH (test code = 2821) 2.3 UIU/ML COMPREHENSIVE METABOLIC [id number] 00:00:00* Test Item Value Reference Range Interpretation Comme nts GLUCOSE (test code = 2217) 252 MG/DL BUN (test code = 2208) 13 MG/DL CREATININE (test code = 2214) 0.57 MG/DL eGFR AMER. (test cod e = 17777) 131 ML/MIN/1.73 eGFR NON- AMER. (test code = 45186) 113 ML/MIN/1.73 CALC BUN/CREAT (test code = [...] code = 2219) 16 U/L COMPREHENSIVE METABOLIC [id number] 00:00:00* Test Item Value Reference Range Interpretation Comme nts GLUCOSE (test code = 2217) 252 MG/DL BUN (test code = 2208) 13 MG/DL CREATININE (test code = 2214) 0.57 MG/DL eGFR AMER. (test cod e = 60406) 131 ML/MIN/1.73 eGFR NON- AMER. (test code = 60563) 113 ML/MIN/1.73 CALC BUN/CREAT (test code = [...] (test code = 2219) 16 U/L LIPID [id number] 00:00:00* Test Item Value Reference Range Interpretation Comme nts CHOLESTEROL (test code = 2210) 167 MG/DL TRIGLYCERIDES (test code = 2232) 118 MG/DL HDL CHOLESTEROL (test code = 2220) 57 MG/DL CALC LDL CHOL (test code = 2237) 86 MG/DL RISK RATIO LDL/HDL (test cod e = 2238) 1.52 RATIO LIPID [id number] 00:00:00* Test Item Value Reference Range Interpretation Comme nts CHOLESTEROL (test code = 2210) 167 MG/DL TRIGLYCERIDES (test code = 2232) 118 MG/DL HDL CHOLESTEROL (test code = 2220) 57 MG/DL CALC LDL CHOL (test code = 2237) 86 MG/DL RISK RATIO LDL/HDL (test cod e = 2238) 1.52 RATIO CBC W/AUTO [id number] 00:00:00* Test Item Value Reference Range Interpretation [...] code = 1015) 360 K/UL CBC W/AUTO [id number] 00:00:00* Test Item Value Reference Range Interpretation [...] code = 1015) 360 K/UL CBC W/AUTO [id number] 00:00:00* Test Item Value Reference Range Interpretation [...] (test code = 1015) 360 K/UL HEMOGLOBIN [id number] 00:00:00* Test Item Value Reference Range Interpretation Comme nts HEMOGLOBIN A1c (test code = 90219) 9.5 % HEMOGLOBIN [id number] 00:00:00* Test Item Value Reference Range Interpretation Comme nts HEMOGLOBIN A1c (test code = 42322) 9.5 % HEMOGLOBIN [id number] 00:00:00* Test Item Value Reference Range Interpretation Comme nts HEMOGLOBIN A1c (test code = 77925) 9.5 % THYROID II PROFILE (T3U, T4, [...] code = 2821) 2.3 UIU/ML COMPREHENSIVE METABOLIC [id number] 00:00:00* Test Item Value Reference Range Interpretation Comme nts GLUCOSE (test code = 2217) 252 MG/DL BUN (test code = 2208) 13 MG/DL CREATININE (test code = 2214) 0.57 MG/DL eGFR AMER. (test cod e = 13922) 131 ML/MIN/1.73 eGFR NON- AMER. (test code = 99766) 113 ML/MIN/1.73 CALC BUN/CREAT (test code = [...] code = 2219) 16 U/L COMPREHENSIVE METABOLIC [id number] 00:00:00* Test Item Value Reference Range Interpretation Comme nts GLUCOSE (test code = 2217) 252 MG/DL BUN (test code = 2208) 13 MG/DL CREATININE (test code = 2214) 0.57 MG/DL eGFR AMER. (test cod e = 83284) 131 ML/MIN/1.73 eGFR NON- AMER. (test code = 76073) 113 ML/MIN/1.73 CALC BUN/CREAT (test code = [...] (test code = 2219) 16 U/L LIPID [id number] 00:00:00* Test Item Value Reference Range Interpretation Comme nts CHOLESTEROL (test code = 2210) 167 MG/DL TRIGLYCERIDES (test code = 2232) 118 MG/DL HDL CHOLESTEROL (test code = 2220) 57 MG/DL CALC LDL CHOL (test code = 2237) 86 MG/DL RISK RATIO LDL/HDL (test cod e = 2238) 1.52 RATIO LIPID [id number] 00:00:00* Test Item Value Reference Range Interpretation Comme nts CHOLESTEROL (test code = 2210) 167 MG/DL TRIGLYCERIDES (test code = 2232) 118 MG/DL HDL CHOLESTEROL (test code = 2220) 57 MG/DL CALC LDL CHOL (test code = 2237) 86 MG/DL RISK RATIO LDL/HDL (test cod e = 2238) 1.52 RATIO CBC W/AUTO [id number] 00:00:00* Test Item Value Reference Range Interpretation [...] code = 1015) 360 K/UL CBC W/AUTO [id number] 00:00:00* Test Item Value Reference Range Interpretation [...] code = 1015) 360 K/UL CBC W/AUTO [id number] 00:00:00* Test Item Value Reference Range Interpretation [...] (test code = 1015) 360 K/UL HEMOGLOBIN [id number] 00:00:00* Test Item Value Reference Range Interpretation Comme nts HEMOGLOBIN A1c (test code = 28566) 9.5 % COMPREHENSIVE METABOLIC [id number] 00:00:00* Test Item Value Reference Range Interpretation Comme nts GLUCOSE (test code = 2217) 195 MG/DL BUN (test code = 2208) 14 MG/DL CREATININE (test code = 2214) 0.55 MG/DL eGFR AMER. (test cod e = 13260) 132 ML/MIN/1.73 eGFR NON- AMER. (test code = 88578) 114 ML/MIN/1.73 CALCULATED BUN/CREAT (test code = [...] code = 2219) 21 U/L COMPREHENSIVE METABOLIC [id number] 00:00:00* Test Item Value Reference Range Interpretation Comme nts GLUCOSE (test code = 2217) 195 MG/DL BUN (test code = 2208) 14 MG/DL CREATININE (test code = 2214) 0.55 MG/DL eGFR AMER. (test cod e = 36943) 132 ML/MIN/1.73 eGFR NON- AMER. (test code = 76750) 114 ML/MIN/1.73 CALCULATED BUN/CREAT (test code = [...] (test code = 2219) 21 U/L HEMOGLOBIN [id number] 00:00:00* Test Item Value Reference Range Interpretation Comme nts HEMOGLOBIN A1c (test code = 60227) 9.9 % HEMOGLOBIN [id number] 00:00:00* Test Item Value Reference Range Interpretation Comme nts HEMOGLOBIN A1c (test code = 85692) 9.9 % HEMOGLOBIN [id number] 00:00:00* Test Item Value Reference Range Interpretation Comme nts HEMOGLOBIN A1c (test code = 77774) 9.9 % CBC W/AUTO [id number] 00:00:00* Test Item Value Reference Range Interpretation [...] code = 1015) 352 K/UL CBC W/AUTO [id number] 00:00:00* Test Item Value Reference Range Interpretation [...] code = 1015) 352 K/UL CBC W/AUTO [id number] 00:00:00* Test Item Value Reference Range Interpretation [...] (test code = 2821) 1.3 UIU/ML LIPID [id number] 00:00:00* Test Item Value Reference Range Interpretation Comme nts CHOLESTEROL (test code = 2210) 167 MG/DL TRIGLYCERIDES (test code = 2232) 113 MG/DL HDL CHOLESTEROL (test code = 2220) 53 MG/DL CALCULATED LDL CHOL (test co de = 2237) 91 MG/DL RISK RATIO LDL/HDL (test cod e = 2238) 1.72 RATIO LIPID [id number] 00:00:00* Test Item Value Reference Range Interpretation Comme nts CHOLESTEROL (test code = 2210) 167 MG/DL TRIGLYCERIDES (test code = 2232) 113 MG/DL HDL CHOLESTEROL (test code = 2220) 53 MG/DL CALCULATED LDL CHOL (test co de = 2237) 91 MG/DL RISK RATIO LDL/HDL (test cod e = 2238) 1.72 RATIO COMPREHENSIVE METABOLIC [id number] 00:00:00* Test Item Value Reference Range Interpretation Comme nts GLUCOSE (test code = 2217) 195 MG/DL BUN (test code = 2208) 14 MG/DL CREATININE (test code = 2214) 0.55 MG/DL eGFR AMER. (test cod e = 18462) 132 ML/MIN/1.73 eGFR NON- AMER. (test code = 15373) 114 ML/MIN/1.73 CALCULATED BUN/CREAT (test code = [...] code = 2219) 21 U/L COMPREHENSIVE METABOLIC [id number] 00:00:00* Test Item Value Reference Range Interpretation Comme nts GLUCOSE (test code = 2217) 195 MG/DL BUN (test code = 2208) 14 MG/DL CREATININE (test code = 2214) 0.55 MG/DL eGFR AMER. (test cod e = 40528) 132 ML/MIN/1.73 eGFR NON- AMER. (test code = 37547) 114 ML/MIN/1.73 CALCULATED BUN/CREAT (test code = [...] (test code = 2219) 21 U/L HEMOGLOBIN [id number] 00:00:00* Test Item Value Reference Range Interpretation Comme nts HEMOGLOBIN A1c (test code = 10317) 9.9 % HEMOGLOBIN [id number] 00:00:00* Test Item Value Reference Range Interpretation Comme nts HEMOGLOBIN A1c (test code = 00848) 9.9 % HEMOGLOBIN [id number] 00:00:00* Test Item Value Reference Range Interpretation Comme nts HEMOGLOBIN A1c (test code = 39604) 9.9 % CBC W/AUTO [id number] 00:00:00* Test Item Value Reference Range Interpretation [...] code = 1015) 352 K/UL CBC W/AUTO [id number] 00:00:00* Test Item Value Reference Range Interpretation [...] (test code = 2821) 1.3 UIU/ML LIPID [id number] 00:00:00* Test Item Value Reference Range Interpretation Comme nts CHOLESTEROL (test code = 2210) 167 MG/DL TRIGLYCERIDES (test code = 2232) 113 MG/DL HDL CHOLESTEROL (test code = 2220) 53 MG/DL CALCULATED LDL CHOL (test co de = 2237) 91 MG/DL RISK RATIO LDL/HDL (test cod e = 2238) 1.72 RATIO COMPREHENSIVE METABOLIC [id number] 00:00:00* Test Item Value Reference Range Interpretation Comme nts GLUCOSE (test code = 2217) 195 MG/DL BUN (test code = 2208) 14 MG/DL CREATININE (test code = 2214) 0.55 MG/DL eGFR AMER. (test cod e = 75866) 132 ML/MIN/1.73 eGFR NON- AMER. (test code = 89898) 114 ML/MIN/1.73 CALCULATED BUN/CREAT (test code = [...] (test code = 2219) 21 U/L HEMOGLOBIN [id number] 00:00:00* Test Item Value Reference Range Interpretation Comme [facility] [place] HEMOGLOBIN A1c (test code = 06925) 9.9 % HEMOGLOBIN [id number] 00:00:00* Test Item Value Reference Range Interpretation Comme nts HEMOGLOBIN A1c (test code = 40676) 9.9 % CBC W/AUTO [id number] 00:00:00* Test Item Value Reference Range Interpretation [...] code = 1015) 352 K/UL CBC W/AUTO [id number] 00:00:00* Test Item Value Reference Range Interpretation [...] code = 1015) 352 K/UL CBC W/AUTO [id number] 00:00:00* Test Item Value Reference Range Interpretation [...] (test code = 2821) 1.3 UIU/ML LIPID [id number] 00:00:00* Test Item Value Reference Range Interpretation Comme nts CHOLESTEROL (test code = 2210) 167 MG/DL TRIGLYCERIDES (test code = 2232) 113 MG/DL HDL CHOLESTEROL (test code = 2220) 53 MG/DL CALCULATED LDL CHOL (test co de = 2237) 91 MG/DL RISK RATIO LDL/HDL (test cod e = 2238) 1.72 RATIO LIPID [id number] 00:00:00* Test Item Value Reference Range Interpretation Comme nts CHOLESTEROL (test code = 2210) 167 MG/DL TRIGLYCERIDES (test code = 2232) 113 MG/DL HDL CHOLESTEROL (test code = 2220) 53 MG/DL CALCULATED LDL CHOL (test co de = 2237) 91 MG/DL RISK RATIO LDL/HDL (test cod e = 2238) 1.72 RATIO COMPREHENSIVE METABOLIC [id number] 00:00:00* Test Item Value Reference Range Interpretation Comme nts GLUCOSE (test code = 2217) 195 MG/DL BUN (test code = 2208) 14 MG/DL CREATININE (test code = 2214) 0.55 MG/DL eGFR AMER. (test cod e = 06483) 132 ML/MIN/1.73 eGFR NON- AMER. (test code = 00901) 114 ML/MIN/1.73 CALCULATED BUN/CREAT (test code = [...] code = 2219) 21 U/L COMPREHENSIVE METABOLIC [id number] 00:00:00* Test Item Value Reference Range Interpretation Comme nts GLUCOSE (test code = 2217) 195 MG/DL BUN (test code = 2208) 14 MG/DL CREATININE (test code = 2214) 0.55 MG/DL eGFR AMER. (test cod e = 86563) 132 ML/MIN/1.73 eGFR NON- AMER. (test code = 58685) 114 ML/MIN/1.73 CALCULATED BUN/CREAT (test code = [...] (test code = 2219) 21 U/L HEMOGLOBIN [id number] 00:00:00* Test Item Value Reference Range Interpretation Comme [facility] HEMOGLOBIN A1c (test code = 28076) 9.9 % HEMOGLOBIN [id number] 00:00:00* Test Item Value Reference Range Interpretation Comme [facility] HEMOGLOBIN A1c (test code = 64118) 9.9 % HEMOGLOBIN [id number] 00:00:00* Test Item Value Reference Range Interpretation Comme nts HEMOGLOBIN A1c (test code = 41559) 9.9 % CBC W/AUTO [id number] 00:00:00* Test Item Value Reference Range Interpretation [...] code = 1015) 352 K/UL CBC W/AUTO [id number] 00:00:00* Test Item Value Reference Range Interpretation [...] code = 1015) 352 K/UL CBC W/AUTO [id number] 00:00:00* Test Item Value Reference Range Interpretation [...] (test code = 2821) 1.3 UIU/ML LIPID [id number] 00:00:00* Test Item Value Reference Range Interpretation Comme nts CHOLESTEROL (test code = 2210) 167 MG/DL TRIGLYCERIDES (test code = 2232) 113 MG/DL HDL CHOLESTEROL (test code = 2220) 53 MG/DL CALCULATED LDL CHOL (test co de = 2237) 91 MG/DL RISK RATIO LDL/HDL (test cod e = 2238) 1.72 RATIO LIPID [id number] 00:00:00* Test Item Value Reference Range Interpretation Comme nts CHOLESTEROL (test code = 2210) 167 MG/DL TRIGLYCERIDES (test code = 2232) 113 MG/DL HDL CHOLESTEROL (test code = 2220) 53 MG/DL CALCULATED LDL CHOL (test co de = 2237) 91 MG/DL RISK RATIO LDL/HDL (test cod e = 2238) 1.72 RATIO
--- NOTE | 2024-01-19 20:21 | EDPHYS ---
Physician Documentation [facility] Name: Tova Ames Age: 53 yrs Sex: Female : 1970 Arrival Date: 01/19/2024 Time: 18:09 Bed 16 Private MD: ED Physician Kirstin Anderson HPI: 01/18 19:28 This 53 yrs old Female presents to ER via Wheelchair with complaints of Leg sp3 Pain. 19:28 53-year-old female with history of diabetes, sciatica, left ACL partial tear still sp3 awaiting surgical evaluation presents to the ED with recurrent left knee pain after running from "a [employer]" yesterday. No direct trauma or fall noted. She denies any distal neurovascular symptoms including numbness, tingling or pain past the knee. No proximal pain into the thigh or hip. Review of systems otherwise negative. She does state that she feels somewhat fatigued and states that her sugar was "a little high" at home. She denies any other symptoms including headache, URI symptoms, fever, chest pain, shortness of breath, back pain, abdominal pain, nausea, vomit, diarrhea, syncope, near syncope, or any other signs or symptoms on ROS at this time.. Historical: - Allergies: 18:40 Aspirin; aa5 18:40 Ibuprofen; aa5 18:40 Influenza Virus Vaccines; aa5 18:40 PENICILLINS; aa5 - PMHx: 18:40 diabetes mellitus; Nerve damage; sciatica (Unknown); Left knee torn ACL (Unknown); aa5 - Immunization history:: Adult Immunizations unknown. - Infectious Disease History:: Denies. - Social history:: Smoking status: unknown. ROS: 19:29 Constitutional: Negative for fever, chills, and weight loss, Eyes: Negative for injury, sp3 pain, redness, and discharge, ENT: Negative for injury, pain, and discharge, Neck: Negative for injury, pain, and swelling, Cardiovascular: Negative for chest pain, palpitations, and edema, Respiratory: Negative for shortness of breath, cough, wheezing, and pleuritic chest pain, Abdomen/GI: Negative for abdominal pain, nausea, vomiting, diarrhea, and constipation, Back: Negative for injury and pain, Skin: Negative for injury, rash, and discoloration, Neuro: Negative for headache, weakness, numbness, tingling, and seizure, Psych: Negative for depression, anxiety, suicide ideation, homicidal ideation, and hallucinations, Allergy/Immunology: Negative for hives, rash, and allergies, Endocrine: Negative for neck swelling, polydipsia, polyuria, polyphagia, and marked weight changes, Hematologic/Lymphatic: Negative for swollen nodes, abnormal bleeding, and unusual bruising, 19:29 All other systems are negative, Exam: 19:29 Constitutional: This is a well developed, well nourished patient who is awake, alert, sp3 and in no acute distress. Head/Face: Normocephalic, atraumatic. Eyes: Pupils equal round and reactive to light, extra-ocular motions intact. Lids and lashes normal. Conjunctiva and sclera are non-icteric and not injected. Cornea within normal limits. Periorbital areas with no swelling, redness, or edema. Neck: Trachea midline, no thyromegaly or masses palpated, and no cervical lymphadenopathy. Supple, full range of motion without nuchal rigidity, or vertebral point tenderness. No Meningismus. Chest/axilla: Normal chest wall appearance and motion. Nontender with no deformity. No lesions are appreciated. Cardiovascular: Regular rate and rhythm with a normal S1 and S2. No gallops, murmurs, or rubs. Normal PMI, no JVD. No pulse deficits. Respiratory: Lungs have equal breath sounds bilaterally, clear to auscultation and percussion. No rales, rhonchi or wheezes noted. No increased work of breathing, no retractions or nasal flaring. Abdomen/GI: Soft, non-tender, with normal bowel sounds. No distension or tympany. No guarding or rebound. No evidence of tenderness throughout. Back: No spinal tenderness. No costovertebral tenderness. Full range of motion. Skin: Warm, dry with normal turgor. Normal color with no rashes, no lesions, and no evidence of cellulitis. Neuro: Awake and alert, GCS 15, oriented to person, place, time, and situation. Cranial nerves II-XII grossly intact. Motor strength 5/5 in all extremities. Sensory grossly intact. Cerebellar exam normal. Normal gait. Psych: Awake, alert, with orientation to person, place and time. Behavior, mood, and affect are within normal limits. 19:29 Musculoskeletal/extremity: Left knee mildly swollen with minor effusion. Full range of motion present and patient is ambulatory. Distal exam is normal.. Vital Signs: 18:29 BP 146 / 74; Pulse 99; Resp 18 S; Temp 97.8(TE); Pulse Ox 98% on R/A; aa5 19:30 BP 142 / 70; Pulse 90; Resp 17 S; Pulse Ox 98% on R/A; ha1 20:33 BP 140 / 76; Pulse 94; Resp 18 S; Temp 98.2; Pulse Ox 100% on R/A; ha1 MDM: 19:07 Patient medically screened. sp3 19:30 Data reviewed: vital signs, nurses notes, old medical records, radiologic studies. ED sp3 course: Probable exacerbation of partial left ACL tear. Will get x-ray to demonstrate no significant bony abnormality. If workup is negative, we will place patient in knee immobilizer and crutches and safely discharged home on NSAIDs. Follow-up with her established orthopedic care. Repeat blood sugar was 169 and does not warrant any further workup.. 20:19 ED course: X-rays negative and we will place patient in knee immobilizer and have her sp3 follow-up with her established orthopedics.. 01/18 19:40 Order name: Glucose, Ancillary Testing; Complete Time: 19:57 EDMS 01/18 19:06 Order name: Knee Left 3 View XRAY sp3 01/18 19:26 Order name: Accucheck; Complete Time: 19:28 sp3 01/18 20:19 Order name: Knee Immobilizer; Complete Time: 20:32 sp3 Administered Medications: No medications were administered Disposition Summary: 01/19/24 20:20 Discharge Ordered Notes: Location: Home sp3 Condition: Stable sp3 Diagnosis - Left knee sprain sp3 Followup: sp3 - With: Private Physician - When: Upon discharge from the Emergency Department - Reason: Continuance of care Discharge Instructions: - Discharge Summary Sheet sp3 - How to Use a Knee Immobilizer sp3 - Knee Sprain, Adult sp3 Forms: - Medication Reconciliation Form sp3 - Thank You Letter sp3 - Antibiotic Education sp3 - Prescription Opioid Use sp3 - Patient Portal Instructions sp3 - Leadership Thank You Letter sp3 Signatures: Dispatcher [employer] Ghislaine Demarco RN RN aa5 Kirstin Anderson MD MD sp3 Nan Cardozo, RN RN ha1 Corrections: (The following items were deleted from the chart) 19:07 19:07 Knee Left 3 View+RAD.RAD.BRZ ordered. EDMS EDMS
--- NOTE | 2024-01-19 20:21 | ER ---
Nurse's Notes [facility] Name: Tova Ames Age: 53 yrs Sex: Female : 1970 Arrival Date: 01/19/2024 Time: 18:09 Bed 16 Private MD: Diagnosis: Left knee sprain Presentation: 01/18 18:29 Chief complaint: Patient states: left knee pain, pt states "I was chased by a rattle aa5 snake yesterday and I have a torn ACL on the left knee". 18:29 Coronavirus screen: At this time, the client does not indicate any symptoms associated aa5 with coronavirus-19. Ebola Screen: Patient denies travel to an Ebola-affected area in the 21 days before illness onset. Initial Sepsis Screen: Does the patient meet any 2 criteria? HR > 90 bpm. Does the patient have a suspected source of infection? No. Patient's initial sepsis screen is negative. Risk Assessment: Do you want to hurt yourself or someone else? Patient reports no desire to harm self or others. Onset of symptoms was January 19, 2024. 18:29 Method Of Arrival: Wheelchair aa5 18:29 Acuity: JACKIE 4 aa5 Historical: - Allergies: 18:40 Aspirin; aa5 18:40 Ibuprofen; aa5 18:40 Influenza Virus Vaccines; aa5 18:40 PENICILLINS; aa5 - PMHx: 18:40 diabetes mellitus; Nerve damage; sciatica (Unknown); Left knee torn ACL (Unknown); aa5 - Immunization history:: Adult Immunizations unknown. - Infectious Disease History:: Denies. - Social history:: Smoking status: unknown. Screenin:37 [facility] ED Fall Risk Assessment (Adult) History of falling in the last 3 months, ha1 including since admission No falls in past 3 months (0 pts) Confusion or Disorientation No (0 pts) Intoxicated or Sedated No (0 pts) Impaired Gait No (0 pts) Mobility Assist Device Used No (0 pt) Altered Elimination No (0 pt) Score/Fall Risk Level 0 - 2 = Low Risk Oriented to surroundings, Maintained a safe environment, Hourly rounding (assess needs \\T\\ fall precautionary measures) done. Abuse screen: Denies threats or abuse. Denies injuries from another. Nutritional screening: No deficits noted. Tuberculosis screening: No symptoms or risk factors identified. Assessment: 19:30 General: Appears uncomfortable, Behavior is calm, cooperative. Pain: Complains of pain ha1 in medial aspect of left knee Pain does not radiate. Pain currently is 7 out of 10 on a pain scale. Quality of pain is described as burning, aching, Pain began Aggravated by exercise, increased activity, repositioning, weight bearing. Neuro: Level of Consciousness is awake, alert, obeys commands, Oriented to person, place, time, situation. Cardiovascular: Patient's skin is warm and dry. Respiratory: Airway is patent Respiratory effort is even, unlabored, Respiratory pattern is regular, symmetrical. GI: No signs and/or symptoms were reported involving the gastrointestinal system. Derm: Skin is pink, warm \\T\\ dry. Musculoskeletal: Circulation, motion, and sensation intact. 20:33 Reassessment: Patient and/or family updated on plan of care and expected duration. Pain ha1 level reassessed. Patient is alert, oriented x 3, equal unlabored respirations, skin warm/dry/pink. Vital Signs: 18:29 BP 146 / 74; Pulse 99; Resp 18 S; Temp 97.8(TE); Pulse Ox 98% on R/A; aa5 19:30 BP 142 / 70; Pulse 90; Resp 17 S; Pulse Ox 98% on R/A; ha1 20:33 BP 140 / 76; Pulse 94; Resp 18 S; Temp 98.2; Pulse Ox 100% on R/A; ha1 ED Course: 18:12 Patient arrived in ED. mg5 18:29 Arm band placed on Patient placed in an exam room, on a stretcher. aa5 18:42 Triage completed. aa5 19:00 Patient has correct armband on for positive identification. Placed in gown. Bed in low ha1 position. Call light in reach. Side rails up X 1. 19:05 Kirstin Anderson MD is Attending Physician. sp3 19:28 Nan Cardozo, LAZARO is Primary Nurse. ha1 20:29 Knee Left 3 View XRAY In Process Unspecified. EDMS 20:38 No provider procedures requiring assistance completed. Patient did not have IV access ha1 during this emergency room visit. 20:39 Provided Education on: knee IMMOBILIZER . ha1 Administered Medications: No medications were administered Medication: 20:39 VIS not applicable for this client. ha1 Outcome: 20:20 Discharge ordered by . sp3 20:38 Discharged to home via wheelchair, ha1 20:38 Condition: stable 20:38 Discharge instructions given to patient, Instructed on discharge instructions, follow up and referral plans. Demonstrated understanding of instructions, follow-up care, 20:40 Patient left the ED. ha1 Signatures: Dispatcher [employer] EDGhislaine Casas RN RN aa5 Kirstin Anderson MD MD sp3 Nan Cardozo RN RN ha1 Jazmin Saldana 5
--- NOTE | 2024-01-19 20:57 | RAD REPORT ---
EXAM DESCRIPTION: RAD - Knee Left 3 View - 01/19/2024 8:27 pm CLINICAL HISTORY: PAIN COMPARISON: No comparisons TECHNIQUE: Left knee, 3 views. FINDINGS: No fracture, dislocation or periosteal reaction.No joint effusion seen. No joint space tania rowing. No soft tissue abnormality. Clinical concerns for internal derangement or occult bony injury could be further assessed with MR im aging. IMPRESSION: Negative left knee.
[2024-01-19 22:03] VITALS: BP 140/76; TEMP 98.2; O2SAT 100
== END 2024-01-19 20:40 | disposition home or self-care (01) ==
LOC: ER 18:09
DX: S83.92XA Sprain of unspecified site of left knee, initial encounter (principal); E11.9 Type 2 diabetes mellitus without complications; Z88.0 Allergy status to penicillin; Z88.6 Allergy status to analgesic agent; Z88.7 Allergy status to serum and vaccine
CPT/HCPCS: 82947; 99283

== ENCOUNTER 2024-03-29 20:21 | Emergency (ER) | payer OTHER ==
--- OUTSIDE RECORDS SUMMARY | 2024-03-29 20:35 | XMS REPORT | Continuity of Care Document ---
Author Name Unknown Address [address] [facility]. [address] [place] [address] [facility] thconnect Address [address] [facility] [address] [place] [address] Care Team Providers Care It Solutions Architect Name Role Phone Óscar [facility] Care Physician DALY MEJIAS Attending Clinician Unavailable LAB90 Attending Clinician Unavailable Doctor Unassigned, Nord Attending Clinician U navailable Maricarmen SANCHEZ Attending Clinician Unavailable Sadaf PAC K Purnima Attending Clinician [phone] JOHN KAMARA Attending Clinician Unavailable John Kamara DO Attending Clinician [phone] DANNIELLE ARECHIGA Attending Clinician Unavailable Dannielle Arechiga MD Attending Clinician +[phone] EBENEZER HELM Attending Clinician UnavailEbenezer Goldman MD Attending Clinician [phone] RENETTA COE Attending Clinician UnavailRenetta Araiza Attending Clinician + [phone] ELADIO MONSIVAIS Attending Clinician Unavailable Eladio Urena Attending Clinician [phone] Yolanda Bass MD Attending Clinician + YOLANDA BASS Attending Clinician Unavailable Vonnie Mcdonald Attending Clinician +[phone] VONNIE NATHAN Attending Clinician Unavailable Hermilo Jeffery MD Attending Clinician +[phone] HERMILO JEFFERY Attending Clinician Unavailable Kt Ratliff MD Attending Clinician +[phone] Carie Chanel NP Attending Clinician + CARIE CHANEL Attending Clinician Unavailable Luisito Quinteros Attending Clinician + [phone] LUISITO CHAVIS Attending Clinician Unavailable Ly Yepez RN Attending Clinician Unavailable Mckayla Masterson Attending Clinician +[phone] Maricarmen SANCHEZ Admitting Clinician Unavailable JOHN KAMARA Admitting Clinician Unavailable EBENEZER HELM Admitting Clinician UnavailELADIO Swan Admitting Clinician Unavailable VONNIE NATHAN Admitting Clinician Unavailable HERMILO JEFFERY Admitting Clinician Unavailable CARIE CHANEL Admitting Clinician Unavailable Payers Payer Name Policy Type Policy Number Effective Date Expirati on Date Source AEDANA CACERES [facility] [employer] 94 [place] 9 [id number] 2023 00:00:00 [facility] [id number] 2022 00:00:00 [facility] [id number] 2021 00:00:00 Problems Condition Name Condition Details [...] 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 Alcoholism Alcoholism Problem Active C [facility] Major depressive disorder, single episode, unspecifie d Major depressive disorder, single episode, unspecifie d Diagnosis Active [facility] Cervicalgi a Cervicalgi a Problem Active 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 Anxiety disorder, unspecifie d Anxiety disorder, unspecifie d Problem Active [facility] Diabetic polyneurop athy associated with type 2 diabetes mellitus Diabetic polyneurop athy associated with type 2 diabetes mellitus [address] [facility] Diabetic neuropathi c arthritis Diabetic neuropathi c arthritis Problem Active [facility] Other chronic pain Other chronic pain Diagnosis Active [facility] Pain in right shoulder Pain in right shoulder Diagnosis Active [facility] No known active problems No known active problems Disease [facility] Allergies, Adverse Reactions, Alerts Allergy [...] DRUG INGREDI Active Unknown-Cmnt 06-23 00:00: 00 [facility] Iodine Propensi ty to adverse reaction s Active Other 06-23 00:00: 00 Pt not sure what kind of reaction she had Shelby birch Flu Vac 2011 (18-64yr s)(Pf) Propensi ty to adverse reaction s Active Anaphylaxis 3 00:00: 00 [facility] FLU VAC 2011 (18-64YR S)(PF) DRUG Active Anaphylaxis 313 00:00: 00 [facility] Aspirin Propensi ty to adverse reaction s Active Unknown - See comments 12-25 00:00: 00 [facility] Penicill ins Propensi ty to adverse reaction s Active Unknown - See comments 12-25 00:00: 00 [facility] ASPIRIN DRUG INGREDI Active High Hives 12-25 00:00: 00 [facility] IBUPROFE N DRUG INGREDI Active High Hives 12-25 00:00: 00 [facility] PENICILL INS Drug Class Active Unknown-Cmnt 12-25 00:00: 00 [facility] Penicill ins Propensi ty to adverse reaction s Active Unknown - See comments 12-25 00:00: 00 [facility] Penicill ins Propensi ty to adverse reaction s Active Unknown - See comments 12-25 00:00: 00 [facility] Calcium Acetylsa licylate Propensi ty [...] Adverse Reaction Active Info Not Available [facility] Ibuprofe n Adverse Reaction Active Info Not Available [facility] Aspirin Adverse Reaction Active Info Not Available [facility] zucchini Adverse Reaction Active Info Not Available [facility] green beans Adverse Reaction Active Info Not Available [facility] almonds Adverse Reaction Active Info Not Available [facility] Social History Social Habit Start Date Stop Date Quantity Comments Source Sexual orientation Maricarmen Olvera - External History of tobacco use Cigarette Smoker Shelby kent - External Gender identity [facility] Cigarettes smoked current (pack per day) [...] (event) 2023-01-29 00:00:00 2023-02-08 08:32:00 Not sure [facility] Sex Assigned At 1970 00:00:00 1970 00:00:00 Shelby Alfaro Smoking Status Start Date Stop Date Source Ex-smoker 2023-10-14 00:00:00 2023-10-14 00:00:00 Shelby Alfaro Tobacco smoking consumption unknown [facility] Medications Ordered Medication Name Filled Medication Name [...] MG oral Tablet 10-14 00:00: 00 Yes [id number] 15mg QD Take 1 tablet (15 mg total) by mouth daily as needed for pain. Shelby birch Tramadol HCl (ULTRAM) 50 MG oral Tablet 10-14 00:00: 00 Yes [id number] 50mg QD Take 1 tablet (50 mg total) by mouth daily as needed for pain. Shelby birch Methocarbam ol 750 MG oral Tablet 10-14 00:00: 00 Yes [id number] 750mg QD Take 1 tablet (750 mg total) by mouth daily as needed (muscle spasm). Shelby birch Trulicity 0.75 MG/0.5ML subcutaneou s Solution Pen-injecto r 10-14 00:00: 00 Yes [id number] .75mg Inject 0.75 mg into the skin once a week. Shelby birch Glimepiride 4 MG oral Tablet 10-14 00:00: 00 Yes [id number] 4mg Take 1 tablet (4 mg total) by mouth every morning (before breakfast) . Shelby birch Duloxetine HCl [address] Particles 10-14 00:00: 00 Yes [id number] 20mg Take 1 capsule (20 mg total) [...] 500 mg tablet 02-08 00:00: 00 Yes [id number] 500mg Take 1 tablet by mouth in the morning and 1 tablet in the evening. Take with meals. [facility] HYDROcodone -acetaminop hen (NORCO) 10-325 mg tablet 1 tablet 11-29 01:00: 00 11-29 00:16 :00 No 1{tbl} 1 tablet, Oral, ONCE, 1 dose, On Sat11/28/22 at 1900, Routine [facility] methylPREDN ISolone 4 mg tablets 11-28 00:00: 00 Yes [id number] Take by mouth SEE-INSTRU CTIONS. follow package directions [facility] methylPREDN ISolone 4 MG oral Tablet Therapy Pack 11-28 00:00: 00 10-14 00:00 :00 No 1{anthony} Take 1 anthony by mouth See Admin Instructkaiden birch methocarbam oL 500 mg tablet 11-28 00:00: 00 12-04 05:59 :00 No [id number] 500mg Take 1 tablet by mouth in the morning and 1 tablet at noon and 1 tablet in the evening. Do all this for [address] [facility] TAKE ONE (1) CAPSULE BY [...] Urine
D uration of Therapy: [address] [facility] naproxen (NAPROSYN) tablet 250 mg 2021-10 23:00: 00 Yes 250mg 250 mg, Oral, BID MEALS, First dose on 09/16/22 at 1700, Until Discontinu ed, Routine [facility] ondansetron (ZOFRAN) 4 mg tablet 2021-10 00:00: 00 Yes [id number] 4mg Take 1 tablet by mouth every 8 (eight) hours as needed for Nausea and Vomiting (N/V). [facility] cefdinir 300 mg capsule 2021-10 00:00: 00 09-24 05:59 :00 No [id number] 300mg Take 1 capsule by mouth every 12 (twelve) hours for [address] [facility] traMADoL 50 mg tablet 2021-10 00:00: 00 09-24 05:59 :00 No [id number] 50mg Take 1 tablet by mouth every 6 (six) hours as needed for Pain (scale 7-10) for up to 7 days. Indication s: acute pain [facility] cyclobenzap rine (FLEXERIL) tablet 10 mg 06-26 02:15: 00 06-26 01:32 :00 No 10mg 10 mg, Oral, ONCE NOW, 1 dose, On Sat06/25/22 at 2115, Routine [facility] cyclobenzap rine 10 mg tablet 06-25 00:00: 00 07-03 04:59 :00 No [id number] 10mg Take 1 tablet by mouth in the morning and 1 tablet at noon and 1 tablet in the evening. Do all this for [address] [facility] Nitrofurant oin&Nit. Macrocryst 100 mg capsule 06-25 00:00: 00 07-03 04:59 :00 No [id number] 100mg Take 1 capsule by mouth in the morning and 1 capsule in the evening. Do all this for [address] [facility] Dose Unknown 06-06 00:00: 00 [...] 1 dose, On Sat04/09/22 at 2345, SARAH [facility] Dose Unknown 2022-0 3-30 00:00: 00 No [...] dose, On Vanessa 12/07/21 at 0000, STAT [facility] NaCl 0.9% (NS) bolus infusion 2,000 mL 12-07 06:00: 00 12-07 07:03 :00 No 2000mL at 999 mL/hr, 2,000 mL, IV Infusion, ONCE, 1 dose, On Vanessa 12/07/21 at 0000, SARAH [facility] levoFLOXaci n (LEVAQUIN) 750 mg tablet 12-07 00:00: 00 12-15 05:59 :00 No [id number] 750mg Take 1 tablet by mouth every 24 (twenty-fo ur) hours for [address] [facility] Dose Unknown 2020-10 00:00: 00 [...] rine ER 10 mg-240 mg tablet,exte nded [id number] 8 00:00: 00 No 1mg pantoprazol e 40 mg tablet,tony yed release 8 00:00: 00 No 1mg doxycycline monohydrate 100 mg capsule 8 00:00: 00 No 1mg prednisone 20 mg tablet 8 00:00: 00 No 1mg loratadine- pseudoephed rine ER 10 mg-240 mg tablet,exte nded [id number] 8 00:00: 00 No 1mg pantoprazol e 40 mg tablet,tony yed release 8 00:00: 00 No 1mg doxycycline monohydrate 100 mg capsule 8 00:00: 00 No 1mg prednisone 20 mg tablet 8 00:00: 00 No 1mg loratadine- pseudoephed rine ER 10 mg-240 mg tablet,exte nded [id number] 8 00:00: 00 No 1mg pantoprazol e 40 mg tablet,tony yed release 8 00:00: 00 No 1mg doxycycline monohydrate 100 mg capsule 8 00:00: 00 No 1mg prednisone 20 mg tablet 8 00:00: 00 No 1mg loratadine- pseudoephed rine ER 10 mg-240 mg tablet,exte nded [id number] 8 00:00: 00 No 1mg pantoprazol e [...] 1 dose, 12/17/20 at 1245, SARAH [facility] NaCl 0.9% (NS) bolus infusion 1,000 mL 12-17 18:45: 00 12-17 18:54 :00 No 1000mL at 999 mL/hr, 1,000 mL, IV Infusion, ONCE, 1 dose, 12/17/20 at 1245, STAT [facility] ondansetron 4 mg disintegrat ing tablet 12-17 00:00: 00 Yes [id number] 4mg Take 1 tablet by mouth every 8 (eight) hours as needed for Nausea and Vomiting (N/V). [facility] pantoprazol e 40 mg EC tablet 12-17 00:00: 00 Yes [id number] 40mg Take 1 tablet by mouth daily. [facility] ProAir HFA 90 mcg/actuati on [...] ONCE, 1 dose, 10/30/20 at 0830, Routine [facility] NaCl 0.9% (NS) bolus infusion 1,000 mL 10-30 13:00: 00 10-30 15:20 :00 No 1000mL at 999 mL/hr, 1,000 mL, IV Infusion, ONCE, 1 dose, 10/30/20 at 0700, SARAH [facility] benzonatate 100 mg capsule 10-30 00:00: 00 Yes [id number] 100mg Take 1 capsule by mouth 3 (three) times daily as needed for Cough. [facility] chlorphenir amine 4 mg tablet 10-30 00:00: 00 Yes [id number] 4mg Take 1 tablet by mouth every 6 (six) hours as needed for Allergies or Runny nose. [facility] ondansetron 4 mg disintegrat ing tablet 10-30 00:00: 00 Yes [id number] 4mg Take 1 tablet by mouth every 8 (eight) hours as needed for Nausea and Vomiting (N/V). [facility] metoclopram zeb 10 mg tablet [...] Urine
D uration of Therapy: [address] [facility] famotidine (PEPCID (PF)) injection 20 mg 2019-10 22:45: 00 09-26 22:45 :00 No 20mg 20 mg, Slow IV Push, ONCE, 1 dose, 09/26/20 at 1645, [facility] ondansetron (ZOFRAN (PF)) injection 4 mg 2019-10 22:45: 00 09-26 22:07 :00 No 4mg 4 mg, Slow IV Push, ONCE, 1 dose, Sat09/26/20 at 1645, [facility] proMETHazin e 25 mg tablet 2019-10 00:00: 00 Yes [id number] 25mg Take 1 tablet by mouth every 6 (six) hours as needed for Nausea and Vomiting (N/V). [facility] sucralfate 1 gram tablet 2019-10 00:00: 00 Yes [id number] 1g Take 1 tablet by mouth before meals and at bedtime. [facility] ciprofloxac in HCl 250 mg tablet 2019-10 00:00: 00 10-02 05:59 :00 No [id number] 250mg Take 1 tablet by mouth 2 (two) times daily for [address] [facility] Victoza 3-Anthony 0.6 mg/0.1 mL [...] 1 dose, Vanessa 09/01/20 at 2015, Routine [facility] ondansetron (ZOFRAN (PF)) injection 4 mg 2019-10 23:45: 00 09-01 22:49 :00 No 4mg 4 mg, Slow IV Push, ONCE, 1 dose, Vanessa 09/01/20 at 1745, [facility] acetaminoph en (TYLENOL) tablet 650 mg 2019-10 23:45: 00 09-01 22:49 :00 No 650mg 650 mg, Oral, ONCE, 1 dose, Vanessa 09/01/20 at 1745, [facility] NaCl 0.9% (NS) bolus infusion 1,000 mL 2019-10 22:45: 00 09-02 00:02 :00 No 1000mL at 999 mL/hr, 1,000 mL, IV Infusion, ONCE, 1 dose, Vanessa 09/01/20 at 1645, [facility] azithromyci n 250 mg tablet 2019-10 00:00: 00 09-06 05:59 :00 No [id number] 250mg Take 1 tablet by mouth daily for 4 days. Take 500 mg day 1, then 250 mg days [address] [facility] prednisone 10 mg tablet 2019-10 [...] at 0800, Until Discontinu ed, Routine [facility] ondansetron (ZOFRAN (PF)) injection 4 mg 2019-10 04:15: 00 07-26 03:28 :00 No 4mg 4 mg, Slow IV Push, ONCE, 1 dose, Sat07/25/20 at 2315, [facility] iohexol (OMNIPAQUE 350 BULK-150 mL) injection 120 mL 2019-10 04:15: 00 07-26 04:15 :00 No 120mL 120 mL, Intravenou s, ONCE, 1 dose, Sat07/25/20 at 2315, Routine [facility] NaCl 0.9% (NS) IV infusion 1,000 mL 2019-10 03:00: 00 Yes 1000mL at 999 mL/hr, Intravenou s, CONTINUOUS , Starting Sat07/25/20 at 2200, Until Discontinu ed, Routine [facility] ondansetron (ZOFRAN (PF)) injection 4 mg 2019-10 03:00: 00 07-26 02:14 :00 No 4mg 4 mg, Slow IV Push, ONCE, 1 dose, Sat07/25/20 at 2200, [facility] pantoprazol e (PROTONIX) 40 mg EC tablet 2019-10 00:00: 09-26 00:00 :00 No [id number] 40mg Take 1 tablet by mouth daily. [facility] dicyclomine 20 mg tablet 2019-10 00:00: 09-26 00:00 :00 No [id number] 20mg Take 1 tablet by mouth every 6 (six) hours as needed for Abdominal pain. [facility] ondansetron (ZOFRAN) 4 mg tablet 2019-10 00:00: 09-26 00:00 :00 No [id number] 4mg Take 1 tablet by mouth every 8 (eight) hours as needed for Nausea and Vomiting (N/V). [facility] naproxen 500 mg tablet,tony yed [...] 14 00:00: 00 11-28 00:00 :00 No [id number] 500mg Take 1 tablet by mouth 3 (three) times daily as needed for Pain (scale 4-6). [facility] traMADOL 50 mg tablet 14 00:00: 00 09-16 00:00 :00 No [id number] 50mg Take 1 tablet by mouth every 8 (eight) hours as needed for Pain (scale 4-6). [facility] naproxen 250 mg tablet 10-11 00:00: 00 Yes 250mg Take 1 tablet by mouth 2 (two) times daily with meals. [facility] traMADOL (ULTRAM) 50 mg tablet 10-11 00:00: 00 09-16 00:00 :00 No 50mg Take 1 tablet by mouth every 6 (six) hours as needed for Pain (scale 4-6). [facility] cyclobenzap rine 5 mg tablet 1-05 00:00: 00 09-26 00:00 :00 No 5mg Take 1 tablet by mouth 3 (three) times daily. [facility] Alprazolam Alprazolam 01-07 00:00: 00 Yes Stuart Morgan 1 tablet Common [facility] Novolin R Regular U-100 Insulin 100 [...] as needed for Nausea and Vomiting (N/V). [facility] ranitidine (ZANTAC) 150 mg tablet 05-20 00:00: 00 09-26 00:00 :00 No 150mg Take 1 tablet by mouth 2 (two) times daily. [facility] cyclobenzap rine 5 mg tablet [...] 12-25 23:42: 52 Yes Take by mouth. [facility] INSULIN REGULAR HUMAN SC 12-25 23:42: 52 Yes inject under the skin. [facility] gabapentin (NEURONTIN) 300 mg capsule 12-25 23:42: 52 Yes 300mg Take 300 mg by mouth 3 (three) times daily. [facility] METFORMIN HCL (METFORMIN ORAL) 12-25 18:42: 52 Yes Take by mouth. [facility] INSULIN REGULAR HUMAN SC 12-25 18:42: 52 Yes inject under the skin. [facility] gabapentin (NEURONTIN) 300 mg capsule 12-25 18:42: 52 Yes 300mg Take 300 mg by mouth 3 (three) times daily. [facility] cyclobenzap rine 5 mg tablet [...] Gummies Yes Stuart Eddie [address] [facility] Lantus Lantus Yes Stuart Eddie [address] [facility] Amitriptyli ne HCl Amitriptyli ne HCl Yes Stuart Eddie not defined [facility] B-12 B-12 Yes Stuart Eddie not defined [facility] Cyclobenzap rine HCl Cyclobenzap rine HCl Yes Stuart Eddie [address] [facility] Gabapentin Gabapentin Yes Stuart Eddie [address] [facility] Immunizations Ordered Immunization Name Filled Immunization Name Date Status Comments Source Hepatitis B, Adult (3 dose) Unknown Completed Shelby Olvera - External Hepatitis B, Adult (3 dose) Unknown Completed Shelby Ruth External Hepatitis B, Adult (3 dose) Unknown Completed Shelby Ruth External Tdap- (Boostrix, Adacel) Unknown Completed Shelby Olvera - External Vital Signs Vital Name Observation [...] Systolic blood pressure 2023-02-08 13:34:00 163 mm[Hg] [facility] Diastolic blood pressure 2023-02-08 13:34:00 85 mm[Hg] [facility] Heart rate 2023-02-08 13:34:00 88 /min [facility] Body temperature 2023-02-08 13:34:00 37.39 [place] [facility] Respiratory rate 2023-02-08 13:34:00 16 /min [facility] Body height 2023-02-08 13:34:00 157.5 cm [facility] Body weight 2023-02-08 13:34:00 73.936 kg [facility] BMI 2023-02-08 13:34:00 29.81 kg/m2 [facility] Oxygen saturation in Arterial blood by Pulse oximetry 2023-02-08 13:34:00 99 /min [facility] Systolic blood pressure 2022-11-28 22:30:00 107 mm[Hg] [facility] Diastolic blood pressure 2022-11-28 22:30:00 74 mm[Hg] [facility] Heart rate 2022-11-28 22:30:00 99 /min [facility] Body temperature 2022-11-28 22:30:00 37.11 [place] [facility] Respiratory rate 2022-11-28 22:30:00 18 /min [facility] Body height 2022-11-28 22:30:00 157.5 cm [facility] Body weight 2022-11-28 22:30:00 73.483 kg [facility] BMI 2022-11-28 22:30:00 29.63 kg/m2 [facility] Oxygen saturation in Arterial blood by Pulse oximetry 2022-11-28 22:30:00 98 /min [facility] Systolic blood pressure 2022-09-16 20:56:00 144 mm[Hg] [facility] Diastolic blood pressure 2022-09-16 20:56:00 80 mm[Hg] [facility] Heart rate 2022-09-16 20:56:00 83 /min [facility] Body temperature 2022-09-16 20:56:00 37.11 [place] [facility] Respiratory rate 2022-09-16 20:56:00 20 /min [facility] Oxygen saturation in Arterial blood by Pulse oximetry 2022-09-16 20:56:00 97 /min [facility] Systolic blood pressure 2022-06-26 02:00:00 129 mm[Hg] [facility] Diastolic blood pressure 2022-06-26 02:00:00 71 mm[Hg] [facility] Heart rate 2022-06-26 02:00:00 60 /min [facility] Respiratory rate 2022-06-26 02:00:00 18 /min [facility] Oxygen saturation in Arterial blood by Pulse oximetry 2022-06-26 02:00:00 98 /min [facility] Body temperature 2022-06-26 01:13:00 36.78 [place] [facility] Body height 2022-06-26 01:13:00 157.5 cm [facility] Body weight 2022-06-26 01:13:00 71.668 kg [facility] BMI 2022-06-26 01:13:00 28.90 kg/m2 [facility] Systolic blood pressure 2021-12-07 06:15:00 134 mm[Hg] [facility] Diastolic blood pressure 2021-12-07 06:15:00 72 mm[Hg] [facility] Heart rate 2021-12-07 06:15:00 73 /min [facility] Respiratory rate 2021-12-07 06:15:00 16 /min [facility] Oxygen saturation in Arterial blood by Pulse oximetry 2021-12-07 06:15:00 100 /min [facility] Body temperature 2021-12-07 03:30:00 36.94 [place] [facility] Body height 2021-12-07 03:30:00 157.5 cm [facility] Body weight 2021-12-07 03:30:00 70.308 kg [facility] BMI 2021-12-07 03:30:00 28.35 kg/m2 [facility] Heart rate 2021-03-05 22:21:00 76 /min [facility] Body temperature 2021-03-05 22:21:00 37.17 [place] [facility] Respiratory rate 2021-03-05 22:21:00 16 /min [facility] Body height 2021-03-05 22:21:00 154.9 cm [facility] Body weight 2021-03-05 22:21:00 76.204 kg [facility] BMI 2021-03-05 22:21:00 31.74 kg/m2 [facility] Oxygen saturation in Arterial blood by Pulse oximetry 2021-03-05 22:21:00 97 /min [facility] Systolic blood pressure 2020-12-17 17:14:00 136 mm[Hg] [facility] Diastolic blood pressure 2020-12-17 17:14:00 75 mm[Hg] [facility] Heart rate 2020-12-17 17:14:00 92 /min [facility] Body temperature 2020-12-17 17:14:00 36.61 [place] [facility] Respiratory rate 2020-12-17 17:14:00 20 /min [facility] Body weight 2020-12-17 17:14:00 77.111 kg [facility] BMI 2020-12-17 17:14:00 31.09 kg/m2 [facility] Oxygen saturation in Arterial blood by Pulse oximetry 2020-12-17 17:14:00 95 /min [facility] Systolic blood pressure 2020-10-30 14:30:00 156 mm[Hg] [facility] Diastolic blood pressure 2020-10-30 14:30:00 80 mm[Hg] [facility] Heart rate 2020-10-30 14:30:00 99 /min [facility] Respiratory rate 2020-10-30 14:30:00 20 /min [facility] Oxygen saturation in Arterial blood by Pulse oximetry 2020-10-30 14:30:00 100 /min [facility] Body temperature 2020-10-30 12:32:00 37.56 [place] [facility] Body height 2020-10-30 12:32:00 157.5 cm [facility] Body weight 2020-10-30 12:32:00 77.111 kg [facility] BMI 2020-10-30 12:32:00 31.09 kg/m2 [facility] Systolic blood pressure 2020-09-27 01:05:00 152 mm[Hg] [facility] Diastolic blood pressure 2020-09-27 01:05:00 89 mm[Hg] [facility] Heart rate 2020-09-27 01:05:00 90 /min [facility] Respiratory rate 2020-09-27 01:05:00 16 /min [facility] Oxygen saturation in Arterial blood by Pulse oximetry 2020-09-27 01:05:00 99 /min [facility] Body temperature 2020-09-26 21:20:00 37.28 [place] [facility] Body height 2020-09-26 21:20:00 157.5 cm [facility] Body weight 2020-09-26 21:20:00 74.844 kg [facility] BMI 2020-09-26 21:20:00 30.18 kg/m2 [facility] Systolic blood pressure 2020-09-02 02:30:00 125 mm[Hg] [facility] Diastolic blood pressure 2020-09-02 02:30:00 66 mm[Hg] [facility] Heart rate 2020-09-02 02:30:00 106 /min [facility] Respiratory rate 2020-09-02 02:30:00 18 /min [facility] Oxygen saturation in Arterial blood by Pulse oximetry 2020-09-02 02:30:00 97 /min [facility] Body temperature 2020-09-02 00:02:31 38.5 [place] [facility] Body height 2020-09-01 22:28:00 154.9 cm [facility] Body weight 2020-09-01 22:28:00 74.39 kg [facility] BMI 2020-09-01 22:28:00 30.99 kg/m2 [facility] Oxygen saturation in Arterial blood by Pulse oximetry 2020-07-26 04:45:00 95 /min [facility] Systolic blood pressure 2020-07-26 04:45:00 132 mm[Hg] [facility] Diastolic blood pressure 2020-07-26 04:45:00 77 mm[Hg] [facility] Heart rate 2020-07-26 04:45:00 92 /min [facility] Respiratory rate 2020-07-26 03:00:00 20 /min [facility] Body temperature 2020-07-26 01:24:00 37.72 [place] [facility] Body height 2020-07-26 01:24:00 154.9 cm [facility] Body weight 2020-07-26 01:24:00 77.111 kg [facility] BMI 2020-07-26 01:24:00 32.12 kg/m2 [facility] BP Systolic 2022-10-23 17:07:00 164 mm[Hg] [...] RELEASE OF PHI 2023-04-26 05:01:00 Doctor Unassigned, [place] [facility] AUTHORIZATION FOR RELEASE OF PHI 2023-04-17 05:01:00 Doctor Unassigned, [place] [facility] XR KNEE 3 VW LEFT 2023-02-08 15:25:16 Maricarmen Sanchez [facility] CONSENT/REFUSAL FOR DIAGNOSIS AND TREATMENT 2023-02-08 13:25:51 Doctor Unassigned, [place] [facility] XR HIPS 3 VW LEFT 2022-11-28 23:35:00 John Kamara [facility] CONSENT/REFUSAL FOR DIAGNOSIS AND TREATMENT 2022-11-28 22:22:03 Doctor Unassigned, [place] [facility] LIPASE 2022-09-16 23:46:00 Dannielle Arechiga [facility] TEST, SERUM 2022-09-16 23:46:00 Johnathon Arechiga [facility] COMP. METABOLIC PANEL ([id number]) 2022-09-16 23:46:00 Dannielle Arechiga [facility] CBC WITH DIFF 2022-09-16 23:46:00 Dannielle Arechiga [facility] URINALYSIS 2022-09-16 22:26:00 Dannielle Arechiga [facility] CONSENT/REFUSAL FOR DIAGNOSIS AND TREATMENT 2022-09-16 20:45:39 Doctor Unassigned, [place] [facility] XR CHEST 2 VW 2022-06-26 02:03:35 [facility] FOOT 3+ VW BILATERAL 2022-06-26 02:03:35 Tyshawn Helm [facility] COMP. METABOLIC PANEL ([id number]) 2022-06-26 01:33:00 Ebenezer Helm [facility] CBC WITH DIFF 2022-06-26 01:33:00 Ebenezer [facility]INALYSIS 2022-06-26 01:33:00 Ebenezer Helm [facility] N-TERMINAL PRO-BNP 2022-06-26 01:33:00 Ebenezer Helm [facility] CONSENT/REFUSAL FOR DIAGNOSIS AND TREATMENT 2022-06-26 01:04:33 Doctor Unassigned, [place] [facility] CONSENT/REFUSAL FOR DIAGNOSIS AND TREATMENT 2022-04-10 03:01:56 Doctor Unassigned, [place] [facility] POCT GLUCOSE (AUTOMATED) 2021-12-07 06:58:00 Eladio Monsivais [facility] CT MAXILLOFACIAL/MANDIBLE WO CONTRAST 2021-12-07 05:31:00 Eladio Monsivais [facility] CT HEAD WO CONTRAST 2021-12-07 05:31:00 Eladio Monsivais [facility] XR CHEST 1 VW 2021-12-07 05:28:00 Eladio [facility] X[facility] HAND 3+ VW LEFT 2021-12-07 05:28:00 Eladio Monsivais [facility] POCT GLUCOSE (AUTOMATED) 2021-12-07 04:51:00 Eladio Monsivais [facility] URINALYSIS 2021-12-07 04:06:00 Eladio Monsivais [facility] TROPONIN I 2021-12-07 03:58:00 Eladio Monsivais [facility] COMP. METABOLIC PANEL ([id number]) 2021-12-07 03:58:00 Eladio Monsivais [facility] CBC WITH DIFF 2021-12-07 03:58:00 Eladio Mons[facility]ais [facility] PROTHROMBIN TIME / INR 2021-12-07 03:58:00 Júnior Monsivais [facility] NOTICE OF PRIVACY PRACTICES 2021-12-07 03:20:07 Doctor Unassigned, [place] [facility] CONSENT/REFUSAL FOR DIAGNOSIS AND TREATMENT 2021-12-07 03:18:34 Doctor Unassigned, [place] [facility] XR ANKLE 3+ VW LEFT 2021-03-05 22:58:39 Vonnie Nathan [facility] CONSENT/REFUSAL FOR DIAGNOSIS AND TREATMENT 2021-03-05 22:02:12 Doctor Unassigned, [place] [facility] XR ABDOMEN ACUTE SERIES 2020-12-17 18:13:15 Do deanne Jeffery [facility] LIPASE 2020-12-17 17:46:00 Hermilo Jeffery [facility] HEPATIC FUNCTION PANEL ([id number]) (ALB,T.PRO,BILI T,BU/BC,ALT,AST,ALK PHOS) 2020-12-17 17:46:00 Hermilo Jeffery [facility] BASIC METABOLIC PANEL (NA, K, CL, CO2, GLUCOSE, BUN, CREATININE, CA) 2020-12-17 17:46:00 Hermilo Jeffery [facility] CBC WITH DIFF 2020-12-17 17:46:00 Hermilo Jeffery [facility] PROTHROMBIN TIME / INR 2020-12-17 17:46:00 Galindo Jeffery [facility] ACTIVATED PARTIAL THRMPLAS RUBIO 2020-12-17 17:46:00 Hermilo Jeffery [facility] URINALYSIS 2020-12-17 17:46:00 Hermilo Jeffery [facility] COVID-19 (ID NOW RAPID TESTING) 2020-12-17 17:46:00 Hermilo Jeffery [facility] NOTICE OF PRIVACY PRACTICES 2020-12-17 17:07:59 Doctor Unassigned, [place] [facility] CONSENT/REFUSAL FOR DIAGNOSIS AND TREATMENT 2020-12-17 17:07:25 Doctor Unassigned, [place] [facility] CT CHEST PULMONARY ANGIOGRAM 2020-10-30 14:24:45 John Kamara [facility] POCT TEST 2020-10-30 14:14:00 Truong Kamara [facility] XR CHEST 1 VW 2020-10-30 13:04:14 Kt Ratliff [facility] TEST, SERUM 2020-10-30 12:49:00 Faisal Ratliff [facility] TROPONIN I 2020-10-30 12:49:00 Kt Ratliff [facility] HEPATIC FUNCTION PANEL ([id number]) (ALB,T.PRO,BILI T,BU/BC,ALT,AST,ALK PHOS) 2020-10-30 12:49:00 Kt Ratliff [facility] BASIC METABOLIC PANEL (NA, K, CL, CO2, GLUCOSE, BUN, CREATININE, CA) 2020-10-30 12:49:00 Kt Ratliff [facility] CBC WITH DIFF 2020-10-30 12:49:00 [facility] 2020-10-30 12:49:00 Sukumar Ratliff [facility] D-DIMER 2020-10-30 12:49:00 Kt Ratliff [facility] ACTIVATED PARTIAL THRMPLAS RUBIO 2020-10-30 12:49:00 Kt Ratliff [facility] RAPID STREP SCREEN FOR GROUP A 2020-10-30 12:49:00 Kt Ratliff [facility] ADC,CLC OR LCC ONLY - INFLUENZA A & B DIRECT ANTIGEN 2020-10-30 12:49:00 Kt Ratliff [facility] COVID-19 (ID NOW RAPID TESTING) 2020-10-30 12:49:00 Kt Ratliff [facility] NOTICE OF PRIVACY PRACTICES 2020-10-30 12:21:16 Doctor Unassigned, [place] [facility] CONSENT/REFUSAL FOR DIAGNOSIS AND TREATMENT 2020-10-30 12:21:04 Doctor Unassigned, [place] [facility] URINALYSIS 2020-09-26 22:51:00 Carie Chanel [facility] XR CHEST 1 VW 2020-09-26 22:03:02 Carie Chanel [facility] LIPASE 2020-09-26 21:51:00 Carie Chanel [facility] TROPONIN I 2020-09-26 21:51:00 Carie Chanel [facility] COMP. METABOLIC PANEL ([id number]) 2020-09-26 21:51:00 Carie Chanel [facility] CBC WITH DIFF 2020-09-26 21:51:00 Carie Chanel [facility] N-TERMINAL PRO-BNP 2020-09-26 21:51:00 Carie Chanel [facility] CONSENT/REFUSAL FOR DIAGNOSIS AND TREATMENT 2020-09-26 21:08:31 Doctor Unassigned, [place] [facility] CT CHEST PULMONARY ANGIOGRAM 2020-09-02 02:01:09 Luisito Chavis [facility] D-DIMER 2020-09-02 00:29:00 [facility] XR CHEST 1 VW 2020-09-01 23:08:31 Luisito Chavis [facility] POCT TEST 2020-09-01 22:52:00 Luisito Chavis [facility] BLOOD CULTURE SCREEN 2020-09-01 22:47:00 Luisito Chavis [facility] COMP. METABOLIC PANEL ([id number]) 2020-09-01 22:47:00 Luisito Chavis [facility] CBC WITH DIFF 2020-09-01 22:47:00 Luisito Chavis [facility] URINALYSIS 2020-09-01 22:47:00 Luisito Chavis [facility] ADC,CLC OR LCC ONLY - INFLUENZA A & B DIRECT ANTIGEN 2020-09-01 22:47:00 Luisito Chavis [facility] N-TERMINAL PRO-BNP 2020-09-01 22:47:00 Luisito Chavis [facility] LACTIC ACID WHOLE BLOOD 2020-09-01 22:47:00 Me hussein Chavis [facility] COVID-19 (ID NOW RAPID TESTING) 2020-09-01 22:47:00 Luisito Chavis [facility] NOTICE OF PRIVACY PRACTICES 2020-09-01 22:31:34 Doctor Unassigned, [place] [facility] CONSENT/REFUSAL FOR DIAGNOSIS AND TREATMENT 2020-09-01 22:18:34 Doctor Unassigned, [place] [facility] CT ABDOMEN PELVIS W CONTRAST 2020-07-26 04:10:32 Yolanda Bass [facility] LIPASE 2020-07-26 02:16:00 Yolanda Bass [facility] COMP. METABOLIC PANEL ([id number]) 2020-07-26 02:16:00 Yolanda Bass [facility] CBC WITH DIFF 2020-07-26 02:16:00 Yolanda Bass [facility] URINALYSIS 2020-07-26 02:16:00 Yolanda Bass [facility] EKG-12 LEAD 2020-07-26 02:00:35 Kali Mdgamal [facility] NOTICE OF PRIVACY PRACTICES 2020-07-26 00:35:41 Doctor Unassigned, [place] [facility] CONSENT/REFUSAL FOR DIAGNOSIS AND TREATMENT 2020-07-26 00:35:21 Doctor Unassigned, [place] [facility] REFERRAL- REQUEST/RESPONSE 2020-07-05 05:01:00 Doctor Unassigned, [place] [facility] Plan of Care Planned Activity Planned Date Details Comments Source Goal Plan of Care Note [code = 54266-6] Goal Plan of Care Note [code = 14761-6] Goal Plan of Care Note [code = 11038-8] Goal Plan of Care Note [code = 22593-2] Goal Plan of Care Note [code = 54982-7] Goal Plan of Care Note [code = 02052-9] Goal Plan of Care Note [code = 90959-0] Goal Plan of Care Note [code = 92303-9] Goal Plan of Care Note [code = 13435-1] Goal Plan of Care Note [code = 55160-3] Goal Plan of Care Note [code = 33552-0] Goal Plan of Care Note [code = 90086-7] Goal Plan of Care Note [code = 58906-1] Goal Plan of Care Note [code = 93499-1] Goal Plan of Care Note [code = 49644-6] Goal Plan of Care Note [code = 20062-3] Goal Plan of Care Note [code = 67168-9] Goal Plan of Care Note [code = 62702-4] Goal Plan of Care Note [code = 44531-2] Goal Plan of Care Note [code = 86843-7] Goal Plan of Care Note [code = 29903-9] Goal Plan of Care Note [code = 38802-9] Goal Plan of Care Note [code = 72160-8] Goal Plan of Care Note [code = 92777-3] Goal Plan of Care Note [code = 46670-4] Goal Plan of Care Note [code = 32060-2] Goal Plan of Care Note [code = 67880-7] Goal Plan of Care Note [code = 29997-7] Goal Plan of Care Note [code = 71186-9] Goal Plan of Care Note [code = 03603-0] Goal Plan of Care Note [code = 66084-6] Goal Plan of Care Note [code = 86016-7] Goal Plan of Care Note [code = 71972-7] Goal Plan of Care Note [code = 51137-4] Goal Plan of Care Note [code = 55526-0] Goal Plan of Care Note [code = 43835-9] Goal Plan of Care Note [code = 76346-8] Goal Plan of Care Note [code = 33934-0] Goal Plan of Care Note [code = 44888-0] Goal Plan of Care Note [code = 25686-9] Goal Plan of Care Note [code = 73221-3] Goal Plan of Care Note [code = 24615-4] Goal Plan of Care Note [code = 55900-7] Goal Plan of Care Note [code = 65474-8] Goal Plan of Care Note [code = 95143-3] Goal Plan of Care Note [code = 68887-1] Goal Plan of Care Note [code = 77817-0] Goal Plan of Care Note [code = 60421-6] Goal Plan of Care Note [code = 54225-1] Goal Plan of Care Note [code = 42610-4] Goal Plan of Care Note [code = 39813-6] Goal Plan of Care Note [code = 04331-2] Goal Plan of Care Note [code = 66471-4] Goal Plan of Care Note [code = 81323-7] Goal Plan of Care Note [code = 01241-9] Goal Plan of Care Note [code = 68472-2] Goal Plan of Care Note [code = 95753-2] Goal Plan of Care Note [code = 52971-7] Goal Plan of Care Note [code = 02958-6] Goal Plan of Care Note [code = 97798-9] Goal Plan of Care Note [code = 75947-1] Goal Plan of Care Note [code = 43959-3] Goal Plan of Care Note [code = 13726-7] Goal Plan of Care Note [code = 17609-4] Goal Plan of Care Note [code = 66361-0] Goal Plan of Care Note [code = 24409-1] Goal Plan of Care Note [code = 70041-6] Goal Plan of Care Note [code = 73045-7] Goal Plan of Care Note [code = 97820-9] Goal Plan of Care Note [code = 72116-2] Goal Plan of Care Note [code = 15894-2] Goal Plan of Care Note [code = 37708-0] Goal Plan of Care Note [code = 83450-1] Goal Plan of Care Note [code = 51208-8] Goal Plan of Care Note [code = 58725-3] Goal Plan of Care Note [code = 37083-1] Goal Plan of Care Note [code = 96545-7] Goal Plan of Care Note [code = 73630-7] Goal Plan of Care Note [code = 98556-6] Goal Plan of Care Note [code = 29205-8] Goal Plan of Care Note [code = 65293-3] Goal Plan of Care Note [code = 72835-1] Goal Plan of Care Note [code = 69080-1] Goal Plan of Care Note [code = 53524-4] Goal Plan of Care Note [code = 29946-7] Goal Plan of Care Note [code = 12643-6] Goal Plan of Care Note [code = 13330-8] Goal Plan of Care Note [code = 39693-5] Goal Plan of Care Note [code = 02021-7] Goal Plan of Care Note [code = 62498-3] Goal Plan of Care Note [code = 55915-9] Goal Plan of Care Note [code = 15250-6] Goal Plan of Care Note [code = 61452-1] Goal Plan of Care Note [code = 32296-5] Goal Plan of Care Note [code = 02014-4] Goal Plan of Care Note [code = 16113-1] Goal Plan of Care Note [code = 91199-3] Goal Plan of Care Note [code = 38242-7] Goal Plan of Care Note [code = 11599-4] Goal Plan of Care Note [code = 69025-1] Goal Plan of Care Note [code = 46777-4] Goal Plan of Care Note [code = 64584-2] Goal Plan of Care Note [code = 68782-6] Goal Plan of Care Note [code = 63512-6] Goal Plan of Care Note [code = 69291-3] Goal Plan of Care Note [code = 65188-2] Goal Plan of Care Note [code = 41468-2] Goal Plan of Care Note [code = 63268-8] Goal Plan of Care Note [code = 76415-6] Goal Plan of Care Note [code = 57631-6] Goal Plan of Care Note [code = 01085-4] Goal Plan of Care Note [code = 84799-8] Goal Plan of Care Note [code = 86847-3] Goal Plan of Care Note [code = 44415-3] Goal Plan of Care Note [code = 79195-5] Goal Plan of Care Note [code = 26845-8] Goal Plan of Care Note [code = 98428-4] Goal Plan of Care Note [code = 72221-5] Goal Plan of Care Note [code = 36343-6] Goal Plan of Care Note [code = 45381-6] Goal Plan of Care Note [code = 26713-6] Goal Plan of Care Note [code = 47575-7] Goal Plan of Care Note [code = 84282-8] Goal Plan of Care Note [code = 24729-9] Goal Plan of Care Note [code = 13161-2] Goal Plan of Care Note [code = 00918-6] Goal Plan of Care Note [code = 07588-9] Goal Plan of Care Note [code = 85081-1] Goal Plan of Care Note [code = 14976-0] Goal Plan of Care Note [code = 96427-6] Goal Plan of Care Note [code = 54054-9] Goal Plan of Care Note [code = 86204-1] Goal Plan of Care Note [code = 18165-0] Goal Plan of Care Note [code = 42873-7] Goal Plan of Care Note [code = 22339-4] Goal Plan of Care Note [code = 10969-1] Goal Plan of Care Note [code = 67138-0] Goal Plan of Care Note [code = 78069-9] Goal Plan of Care Note [code = 96370-0] Goal Plan of Care Note [code = 72886-3] Goal Plan of Care Note [code = 05647-4] Goal Plan of Care Note [code = 44244-5] Goal Plan of Care Note [code = 83314-2] Goal Plan of Care Note [code = 41631-6] Goal Plan of Care Note [code = 49642-9] Goal Plan of Care Note [code = 44823-1] Goal Plan of Care Note [code = 24858-0] Goal Plan of Care Note [code = 92846-1] Goal Plan of Care Note [code = 36315-6] Goal Plan of Care Note [code = 14205-7] Goal Plan of Care Note [code = 30123-5] Goal Plan of Care Note [code = 36552-1] Goal Plan of Care Note [code = 86514-7] Goal Plan of Care Note [code = 45298-1] Goal Plan of Care Note [code = 29902-7] Goal Plan of Care Note [code = 44154-4] Goal Plan of Care Note [code = 41153-1] Goal Plan of Care Note [code = 12152-9] Goal Plan of Care Note [code = 81950-4] Goal Plan of Care Note [code = 54369-4] Goal Plan of Care Note [code = 21116-3] Goal Plan of Care Note [code = 86417-2] Goal Plan of Care Note [code = 59368-7] Goal Plan of Care Note [code = 36966-5] Goal Plan of Care Note [code = 82463-6] Goal Plan of Care Note [code = 99836-4] Goal Plan of Care Note [code = 49333-7] Goal Plan of Care Note [code = 14883-1] Goal Plan of Care Note [code = 86954-7] Goal Plan of Care Note [code = 52940-2] Goal Plan of Care Note [code = 03491-4] Goal Plan of Care Note [code = 76450-9] Goal Plan of Care Note [code = 90302-8] Goal Plan of Care Note [code = 83723-0] Goal Plan of Care Note [code = 97965-6] Goal Plan of Care Note [code = 32694-9] Goal Plan of Care Note [code = 78275-4] Goal Plan of Care Note [code = 56425-9] Goal Plan of Care Note [code = 11734-4] Goal Plan of Care Note [code = 50707-9] Goal Plan of Care Note [code = 00174-0] Goal Plan of Care Note [code = 50040-5] Goal Plan of Care Note [code = 36186-1] Goal Plan of Care Note [code = 94175-9] Goal Plan of Care Note [code = 09713-1] Goal Plan of Care Note [code = 94957-5] Goal Plan of Care Note [code = 01244-4] Goal Plan of Care Note [code = 62558-4] Goal Plan of Care Note [code = 02698-5] Goal Plan of Care Note [code = 36064-6] Goal Plan of Care Note [code = 81757-0] Goal Plan of Care Note [code = 71736-2] Goal Plan of Care Note [code = 34045-8] Goal Plan of Care Note [code = 37370-6] Goal Plan of Care Note [code = 03171-6] Goal Plan of Care Note [code = 40872-6] Goal Plan of Care Note [code = 17170-4] Goal Plan of Care Note [code = 79471-7] Goal Plan of Care Note [code = 17866-5] Goal Plan of Care Note [code = 82418-5] Goal Plan of Care Note [code = 13436-5] Goal Plan of Care Note [code = 09244-1] Goal Plan of Care Note [code = 42321-2] Goal Plan of Care Note [code = 48916-3] Goal Plan of Care Note [code = 63591-9] Goal Plan of Care Note [code = 87791-6] Goal Plan of Care Note [code = 93977-1] Goal Plan of Care Note [code = 03720-8] Goal Plan of Care Note [code = 46012-6] Goal Plan of Care Note [code = 15941-1] Goal Plan of Care Note [code = 54608-9] Goal Plan of Care Note [code = 98504-7] Goal Plan of Care Note [code = 64265-3] Goal Plan of Care Note [code = 42285-6] Goal Plan of Care Note [code = 20203-0] Goal Plan of Care Note [code = 50685-0] Goal Plan of Care Note [code = 89860-0] Goal Plan of Care Note [code = 98631-0] Goal Plan of Care Note [code = 87727-9] Goal Plan of Care Note [code = 58760-1] Goal Plan of Care Note [code = 53624-5] Goal Plan of Care Note [code = 19141-6] Goal Plan of Care Note [code = 78779-3] Goal Plan of Care Note [code = 02346-9] Encounters Start Date/Time End Date/Time Encounter Type Admission Type Attending [facility] Care Department Encounter ID Source 2024-02-17 11:24:53 2024-02-17 11:24:53 Outpatient [facility] [id number] Óscar Zavala 2024-02-13 16:21:03 2024-02-13 16:21:03 Outpatient [facility] [id number] Óscar Zavala 2023-12-24 10:45:00 2023-12-24 10:45:00 Outpatient MAGALIE DALY PATTERSON [id number] [facility] 2023-12-17 16:47:51 2023-12-17 16:47:51 Outpatient [facility] [id number] Óscar Zavala 2023-12-11 14:22:41 2023-12-11 14:22:41 Outpatient [facility] [id number] Óscar Zavala 2023-11-18 11:00:00 2023-11-18 11:00:00 Outpatient DALY MEJIAS [id number] [facility] 2023-10-17 00:00:00 2023-10-17 00:00:00 Outpatient DALY MEJIAS [id number] [facility] 2023-10-16 00:00:00 2023-10-16 00:00:00 Outpatient CELESTINAKathleenDALY [id number] [place] [facility] 2023-10-15 00:00:00 2023-10-15 00:00:00 Outpatient DALY MEJIAS [id number] [facility] 2023-10-14 09:45:00 2023-10-14 09:45:00 Outpatient THEO PATTERSON [id number] [facility] 2023-10-14 08:45:00 2023-10-14 08:45:00 Outpatient DALY MEJIAS [id number] [place] [facility] 2023-08-14 11:42:13 2023-08-14 11:42:13 Outpatient [facility] [id number] Óscar Zavala 2023-07-09 15:49:57 2023-07-09 15:49:57 Outpatient [facility] [id number] Óscar Zavala 2023-04-26 00:00:00 2023-04-26 00:00:00 Orders Only Doctor Unassigned, Nord [facility] [id number] 350.1.13.10 4.2.7.2.[id number] [facility] 2023-04-23 10:17:21 2023-04-23 10:17:21 Outpatient [facility] [id number] Óscar Rose [place] 2023-04-17 00:00:00 2023-04-17 00:00:00 Orders Only Doctor Unassigned, Nord [facility] 1.2840.114 350.1.13.10 4.2.7.2.[id number] [facility] 2023-02-08 08:35:00 2023-02-08 12:02:00 Emergency X Maricarmen SANCHEZ [facility] ERT [id number] [facility] 2023-02-08 08:35:00 2023-02-08 12:02:00 Emergency Maricarmen Sanchez [facility] [id number] 350.1.13.10 4.2.7.2.[id number] [facility] 2023-02-08 00:00:00 2023-02-08 00:00:00 Patient Secure Msg Doctor Unassigned, Nord [facility] 1.2.840.114 350.1.13.10 4.2.7.2.[id number] [facility] 2022-12-17 14:21:59 2022-12-17 14:21:59 Outpatient [facility] [id number] Óscar Zavala 2022-11-28 16:34:00 2022-11-28 18:21:00 Emergency X JOHN KAMARA [facility] ERT [id number] [facility] 2022-11-28 16:34:00 2022-11-28 18:21:00 Emergency John Kamara [facility] 1.2.840.114 350.1.13.10 4.2.7.2.[id number] [facility] 2022-11-28 13:54:29 2022-11-28 13:54:29 Outpatient [facility] [id number] Óscar Rose [place] 2022-11-08 10:17:59 2022-11-08 10:17:59 Outpatient [facility] [id number] Óscar Rose [place] 2022-10-30 08:40:52 2022-10-30 08:40:52 Outpatient [facility] [id number] Óscar Rose [place] 2022-10-23 17:01:52 2022-10-23 17:01:52 Outpatient [facility] [id number] Óscar Rose [place] 2022-10-23 00:00:00 2022-10-23 00:00:00 Outpatient Visit [id number] 2022-09-16 14:58:00 2022-09-16 19:08:00 Emergency X LORRAINE DANNIELLE [facility] ERT [id number] [facility] 2022-09-16 14:58:00 2022-09-16 19:08:00 Emergency Dannielle Arechiga [facility] [id number] [facility] 2022-08-15 10:49:03 2022-08-15 10:49:03 Outpatient [facility] [address] 2022-07-02 00:00:00 2022-07-02 00:00:00 Outpatient Visit [id number] 2022-06-25 20:19:00 2022-06-25 21:54:00 Emergency X EBENEZER HELM [facility] ERT [id number] [facility] 2022-06-25 20:19:00 2022-06-25 21:54:00 Emergency BehEbenezer chau A [facility] [id number] [facility] [facility]:00:00 2022-06-05 00:00:00 Outpatient Visit [id number] 2022-05-07 00:00:00 2022-05-07 00:00:00 Outpatient Visit [id number] 95debf 2022-04-09 22:07:00 2022-04-09 22:08:00 Emergency X SARAVANAN [facility] ERT [id number] [facility] 2022-04-09 22:07:00 2022-04-09 22:08:00 Emergency [place] 1.2.840.114 350.1.13.10 4.2.7.2.[id number] [facility] 2021-12-06 21:21:00 2021-12-07 01:08:00 Emergency X LOI, ELADIO [facility] ERT [id number] [facility] 2021-12-06 21:21:00 2021-12-07 01:08:00 Emergency Eladio Monsivais [facility] 1.2.840.114 350.1.13.10 4.2.7.2.[id number] [facility] 2021-06-23 22:09:00 2021-06-23 22:10:00 Emergency Yolanda Bass [facility] 1.2.840.114 350.1.13.10 4.2.7.2.[id number] [facility] 2021-06-23 21:42:00 2021-06-23 21:42:00 Emergency X YOLANDA BASS [facility] ERT [id number] [facility] 2021-03-05 17:25:00 2021-03-05 18:39:00 Emergency Vonnie Nathan [facility] 1.2.840.114 350.1.13.10 4.2.7.2.[id number] [facility] 2021-03-05 17:25:00 2021-03-05 18:39:00 Emergency X VONNIE NATHAN [facility] ERT [id number] [facility] 2020-12-17 11:09:00 2020-12-17 12:55:00 Emergency Jose D Hermilo [facility] 1.2.840.114 350.1.13.10 4.2.7.2.[id number] [facility] 2020-12-17 11:09:00 2020-12-17 12:55:00 Emergency X HERMILO JEFFERY [facility] ERT [id number] [facility] 2020-10-30 06:26:00 2020-10-30 09:25:00 Emergency Kt Ratliff [facility] 1.2.840.114 350.1.13.10 4.2.7.2.[id number] [facility] 2020-10-30 06:22:00 2020-10-30 06:22:00 Emergency X [facility] ERT [id number] [facility] 2020-09-26 15:22:00 2020-09-26 19:20:00 Emergency Carie Chanel [facility] 1.2.840.114 350.1.13.10 4.2.7.2.[id number] [facility] 2020-09-26 15:22:00 2020-09-26 19:20:00 Emergency X CARIE CHANEL [facility] ERT [id number] [facility] 2020-09-01 16:25:00 2020-09-01 20:55:00 Emergency Luisito Chavis [facility] 1.2840.114 350.1.13.10 4.2.7.2.[id number] [facility] 2020-09-01 16:25:00 2020-09-01 16:25:00 Emergency X LUISITO CHAVIS [facility] ERT [id number] [facility] 2020-09-01 00:00:00 2020-09-01 00:00:00 Nurse Triage Ly Yepez [facility] 1.2.840.114 350.1.13.10 4.2.7.2.[id number] [facility] 2020-08-08 00:00:00 2020-08-08 00:00:00 Letter (Out) Mckayla Masterson [facility] 1.2.840.114 350.1.13.10 4.2.7.2.[id number] [facility] 2020-07-25 20:28:00 2020-07-25 23:58:00 Emergency Yolanda Bass [facility] 1.840.114 350.1.13.10 4.2.7.2.[id number] [facility] 2020-07-25 19:37:00 2020-07-25 19:37:00 Emergency X [facility] ERT [id number] [facility] 2020-07-05 00:00:00 2020-07-05 00:00:00 Orders Only Doctor Unassigned, Nord [facility] 1.2840.114 350.1.13.10 4.2.7.2.[id number] [facility] 2018-07-15 08:45:00 2018-07-15 08:45:00 Outpatient [facility] [id number] [facility] 2018-01-07 14:30:00 2018-01-07 14:30:00 Outpatient [facility] [id number] [facility] Results Test Description Test Time Test Comments Results Result Co mments Source LIPID [id number] 03:31:26* Test Item Value Reference Range Interpretation Comme nts CHOLESTEROL (test code = 2210) 207 MG/DL <200 H TRIGLYCERIDES (test code = 2232) 145 MG/DL <150 HDL CHOLESTEROL (test code = 2220) 57 MG/DL >39 CALC LDL CHOL (test code = 2237) 124 MG/DL <100 H NOTE: CALCULATED LDL IS BASED ON JASPER-GOLDMAN METHOD WHICHINCLUDES ADJUSTABLE TRIGLYCERIDE:VLDL CHOLESTEROL RATIO.THIS FACTOR VARIES BY MEASURED TRIGLYCERIDE AND NON-HDLCHOLESTEROL CONCENTRATIONS WITH INCREASED CALCULATED LDL SEENIN HIGHER TRIGLYCERIDE OR LOWER NON-HDL SPECIMENS. FOR MOREINFORMATION, SEE CLIENT ANNOUNCEMENT AT [email or web address] RISK RATIO LDL/HDL (test code = 2238) 2.18 RATIO <3.22 UNLESS OTHERW ISE INDICATED, ALL TESTING PERFORMED AT [facility] [address] [place] [address] VISUAL SPECIALIST: JOSE MORALES M.D. CLIA NUMBER [id number] [place]. [id number] HEMOGLOBIN [id number] 02:53:39* Test Item Value Reference Range Interpretation Comme nts HEMOGLOBIN A1c (test code = 77530) 11.7 % 4.2-5.6 H [employer] GUIDELINES FOR HGB A1C: [...] ETC.). CONSIDER ALTERNATE TESTING OR LABORATORY CONSULTATION. LIPID [id number] 10:46:21* Test Item Value Reference Range Interpretation Comme nts CHOLESTEROL (test code = 2210) 199 MG/DL <200 TRIGLYCERIDES (test code = 2232) 149 MG/DL <150 HDL CHOLESTEROL (test code = 2220) 58 MG/DL >39 CALC LDL CHOL (test code = 2237) 115 MG/DL <100 H NOTE: CALCULATED LDL IS BASED ON JASPER-GOLDMAN METHOD WHICHINCLUDES ADJUSTABLE TRIGLYCERIDE:VLDL CHOLESTEROL RATIO.THIS FACTOR VARIES BY MEASURED TRIGLYCERIDE AND NON-HDLCHOLESTEROL CONCENTRATIONS WITH INCREASED CALCULATED LDL SEENIN HIGHER TRIGLYCERIDE OR LOWER NON-HDL SPECIMENS. FOR MOREINFORMATION, SEE CLIENT ANNOUNCEMENT AT [email or web address] RISK RATIO LDL/HDL (test code = 2238) 1.98 RATIO <3.22 COMPREHENSIVE METABOLIC [id number] 10:46:21* Test Item Value Reference Range Interpretation Comme nts GLUCOSE (test code = 2217) 173 MG/DL 70-99 H BUN (test code = 2208) 7 MG/DL 6-20 CREATININE (test code = 2214) 0.56 MG/DL 0.60-1.30 L eGFR (2020 CKD-EPI) (test code = 47907) 110 ML/MIN/1.73 >60 CALC BUN/CREAT (test code [...] as normal/abnormal. ALKALINE PHOSPHATASE (test code = 4) 101 U/L 40-130 AST (test code = 8) 14 U/L 9-40 ALT (test code = 2219) 15 U/L 5-40 UNLESS OTHERWISE INDICATED, [facility] [address] [place] [address] VISUAL SPECIALIST: KEVIN FRANCO M.D. CLIA NUMBER [id number] [facility] [place]. [id number] HEMOGLOBIN [id number] 07:47:20* Test Item Value Reference Range Interpretation Comme nts HEMOGLOBIN A1c (test code = 91595) 12.0 % 4.2-5.6 H [employer] GUIDELINES FOR HGB A1C: [...] Value Reference Range Interpretation Comme nts POCT GLU (test code = 0494991678) 292 mg/dL 70-110 H Lab Interpretation (test cod e = 94930-6) Abnormal [facility] GLUCOSE (AUTOMATED)2021-12-07 04:55:44* Test Item Value Reference Range Interpretation Comme nts POCT GLU (test code = 8806893705) 440 mg/dL 70-110 H Lab Interpretation (test cod e = 50026-9) Abnormal [facility]. METABOLIC PANEL (87911)2021-12-07 04:40:58* Test Item Value Reference Range Interpretation Comme nts NA (test code = 1133009771) 133 mmol/L 135-145 L K (test code = 4569257158) 4.2 mmol/L 3.5-5.0 CL (test code = 3375267782) 97 mmol/L 98-108 L CO2 TOTAL (test code = 9755859273) 25 mmol/L 23-31 AGAP (test code = 3650575661) 2-16 BUN (test code = 0452564647) 11 mg/dL 7-23 GLUCOSE (test code = 5864836174) 519 mg/dL 70-110 HH CREATININE (test code = 1709776490) 0.65 mg/dL 0.50-1.04 TOTAL BILI (test code = 0218509139) 0.4 mg/dL 0.1-1.1 CALCIUM (test code = 3836546628) 8.8 mg/dL 8.6-10.6 T PROTEIN (test code = 2080987789) 6.9 g/dL 6.3-8.2 ALBUMIN (test code = 7515974056) 3.9 g/dL 3.5-5.0 ALK PHOS (test code = 0011357787) 113 U/L 34-122 ALTv (test code = 1742-6) 25 U/L 5-35 AST(SGOT) (test code = 5115102489) 32 U/L 13-40 eGFR (test code = 9571936388) mL/min/1.73m2 MATTHEW (test code = MATTHEW) Association [...] imaging tests). Lab Interpretation (test code = 87032-0) [id number] 04:33:26* Test Item Value Reference Range Interpretation Comments TROPONIN I (test code = 5694489852) <0.012 See_Comment [Automated message] The system which [...] of biotin. Lab Interpretation (test code = 25685-2) [facility] [id number] 04:13:03* Test Item Value Reference Range Interpretation [...] the indications. Lab Interpretation (test code = 48505-5) Normal [facility] WITH [id number] 04:06:26* Test Item Value Reference Range Interpretation Comme nts WBC (test code = 6690-2) See_Comment [Automated messa ge] The system which generated this result transmitted reference range: 4.30 - 11.10 10*3/?L. The reference range was not used to interpret this result as normal/abnormal. RBC (test code = 789-8) See_Comment [Automated [employer]zzle[employer] ge] The system which generated this result [...] 33.3 g/dL 31.6-35.1 RDW-SD (test code = 47359-2) 39.2 fL 39.0-49.9 RDW-CV (test code = 788-0) 12.2 % 12.0-15.5 PLT (test code = 777-3) See_Comment [Automated [employer] ge] The system which generated this result transmitted reference range: 166 - 358 10*3/?L. The reference range was not used to interpret this result as normal/abnormal. MPV (test code = 21495-2) 10.4 fL 9.5-12.9 NRBC/100 WBC (test code = 0523367385) See_Comment [Automated me ssage] The system which generated this result transmitted reference range: 0.0 - 10.0 /100 WBCs. The reference range was not used to interpret this result as normal/abnormal. NRBC x10^3 (test code = 2659113420) <0.01 See_Comment [Automated me ssage] The system which generated this result transmitted reference range: 10*3/?L. The reference range was not used to interpret this result as normal/abnormal. GRAN MAT (NEUT) % (test code = 770-8) 45.7 % IMM GRAN % (test code = 7009075875) 0.50 % LYMPH % (test code = 736-9) 38.7 % MONO % (test code = 5905-5) 10.4 % EOS % (test code = 713-8) 4.1 % BASO % (test code = 706-2) 0.6 % GRAN MAT x10^3(ANC) (test code = 1968448408) 3.00 10*3/uL 1.88-7.09 IMM GRAN x10^3 (test code = 1508662984) 0.03 10*3/uL 0.00-0.06 LYMPH x10^3 (test code = 731-0) 2.54 10*3/uL 1.32-3.29 MONO x10^3 (test code = 742-7) 0.68 10*3/uL 0.33-0.92 EOS x10^3 (test code = 711-2) 0.27 10*3/uL 0.03-0.39 BASO x10^3 (test code = 704-7) 0.04 10*3/uL 0.01-0.07 [facility], [id number] 00:00:00* Test Item Value Reference Range Interpretation Comme nts CULTURE, URINE (test code = 91842) SPECIMEN NUMBER: [id number] CULTURE, [id number] 00:00:00* Test Item Value Reference Range Interpretation Comme nts CULTURE, URINE (test code = 73754) SPECIMEN NUMBER: [id number] CULTURE, [id number] 00:00:00* Test Item Value Reference Range Interpretation Comme nts CULTURE, URINE (test code = 48058) SPECIMEN NUMBER: [id number] CULTURE, [id number] 00:00:00* Test Item Value Reference Range Interpretation Comme nts CULTURE, URINE (test code = 30021) SPECIMEN NUMBER: [id number] CULTURE, [id number] 00:00:00* Test Item Value Reference Range Interpretation Comme nts CULTURE, URINE (test code = 10094) SPECIMEN NUMBER: [id number] CULTURE, [id number] 00:00:00* Test Item Value Reference Range Interpretation Comme nts CULTURE, URINE (test code = 65338) SPECIMEN NUMBER: [id number] CULTURE, [id number] 00:00:00* Test Item Value Reference Range Interpretation Comme nts CULTURE, URINE (test code = 16958) SPECIMEN NUMBER: [id number] VAGINAL PATHOGENS DNA [id number] 00:00:00* Test Item Value Reference Range Interpretation Comme nts KASSI SPECIES (test code = ) NEGATIVE G. VAGINALIS (test code = 12340) POSITIVE T. VAGINALIS (test code = 93444) NEGATIVE VAGINAL PATHOGENS DNA [id number] 00:00:00* Test Item Value Reference Range Interpretation Comme nts KASSI SPECIES (test code = 40355) NEGATIVE G. VAGINALIS (test code = 50193) POSITIVE T. VAGINALIS (test code = 27746) NEGATIVE VAGINAL PATHOGENS DNA [id number] 00:00:00* Test Item Value Reference Range Interpretation Comme nts KASSI SPECIES (test code = 19346) NEGATIVE G. VAGINALIS (test code = 14969) POSITIVE T. VAGINALIS (test code = 26432) NEGATIVE VAGINAL PATHOGENS DNA [id number] 00:00:00* Test Item Value Reference Range Interpretation Comme nts KASSI SPECIES (test code = 67433) NEGATIVE G. VAGINALIS (test code = 16586) POSITIVE T. VAGINALIS (test code = 16688) NEGATIVE VAGINAL PATHOGENS DNA [id number] 00:00:00* Test Item Value Reference Range Interpretation Comme nts KASSI SPECIES (test code = 80723) NEGATIVE G. VAGINALIS (test code = 30967) POSITIVE T. VAGINALIS (test code = 62841) NEGATIVE VAGINAL PATHOGENS DNA [id number] 00:00:00* Test Item Value Reference Range Interpretation Comme nts KASSI SPECIES (test code = 79666) NEGATIVE G. VAGINALIS (test code = 47591) POSITIVE T. VAGINALIS (test code = 88456) NEGATIVE VAGINAL PATHOGENS DNA [id number] 00:00:00* Test Item Value Reference Range Interpretation Comme nts KASSI SPECIES (test code = ) NEGATIVE G. VAGINALIS (test code = 42435) POSITIVE T. VAGINALIS (test code = 93519) NEGATIVE DIAG MAMM BILATERAL HERNANDEZ CAD [id number] 08:00:36 Name: Stew : 1970 Sex: F - DIAG MAMM BILATERAL HERNANDEZ CAD DIGITALBILATERAL DIGITAL DIAGNOSTIC MAMMOGRAM 3D/2D WITH CAD: 04/06/2021LINICAL: Abnormal Report from CT scan. Digital breast tomosynthesis was performed in addition to routine CC and MLO views. Current mammographic images were evaluated by [employer] CAD (computer-aided detection) software. Comparison is made to exam dated 04/25/2015 mammogram - [facility]. The tissue of both breasts is [...] to exam dated 04/25/2015 mammogram - [facility]amm[facility]. Real-time ultrasound of both breasts and both axilla and clinical breast exam were performed. No abnormalities were seen sonographically in either breast or either axilla. Clinical breast exam was unremarkable.IMPRESSION: NEGATIVE There is no sonographic evidence of malignancy. Resume annual screening mammography in one year. Carmel Hensley M.D. dm/:04/07/2021 08:00:36 Entry: - 108:18:04Imaging Technologist: Bonnie Esteban FW, [facility]- FWletter sent: BIRADS 1-2 Combo FU Letter Mammogram BI-RADS: 0 Incomplete: Additional Imaging Evaluation Needed Ultrasound BI-RADS: 1 NegativeBREAST ULTRASOUND [id number] 08:00:36 Name: Stew : 1970 Sex: F - DIAG MAMM BILATERAL HERNANDEZ CAD DIGITALBILATERAL DIGITAL DIAGNOSTIC MAMMOGRAM 3D/2D WITH CAD: 04/06/2021LINICAL: Abnormal Report from CT scan. Digital breast tomosynthesis was performed in addition to routine CC and MLO views. Current mammographic images were evaluated by [employer] CAD (computer-aided detection) software. Comparison is made to exam dated 04/25/2015 mammogram - [facility]. The tissue of both breasts [...] to exam dated 04/25/2015 mammogram - [facility]. Real-time ultrasound of both breasts and both axilla and clinical breast exam were performed. No abnormalities were seen sonographically in either breast or either axilla. Clinical breast exam was unremarkable.IMPRESSION: NEGATIVE There is no sonographic evidence of malignancy. Resume annual screening mammography in one year. Carmel Hensley M.D. dm/:04/07/2021 08:00:36 Entry: - 108:18:04Imaging Technologist: Bonnie CALABRESE, [facility]- FWletter sent: BIRADS 1-2 Combo FU Letter Mammogram BI-RADS: 0 Incomplete: Additional Imaging Evaluation Needed Ultrasound BI-RADS: 1 NegativeH. PYLORI (BREATH)2021-03-04 00:00:00* Test Item Value Reference Range Interpretation Comme nts H. PYLORI (BREATH) (test cod e = 30945) POSITIVE H. PYLORI (BREATH)2021-03-04 00:00:00* Test Item Value Reference Range Interpretation Comme nts H. PYLORI (BREATH) (test cod e = 94524) POSITIVE H. PYLORI (BREATH)2021-03-04 00:00:00* Test Item Value Reference Range Interpretation Comme nts H. PYLORI (BREATH) (test cod e = 12051) POSITIVE H. PYLORI (BREATH)2021-03-04 00:00:00* Test Item Value Reference Range Interpretation Comme nts H. PYLORI (BREATH) (test cod e = 87193) POSITIVE H. PYLORI (BREATH)2021-03-04 00:00:00* Test Item Value Reference Range Interpretation Comme nts H. PYLORI (BREATH) (test cod e = 87806) POSITIVE H. PYLORI (BREATH)2021-03-04 00:00:00* Test Item Value Reference Range Interpretation Comme nts H. PYLORI (BREATH) (test cod e = 23628) POSITIVE H. PYLORI (BREATH)2021-03-04 00:00:00* Test Item Value Reference Range Interpretation Comme nts H. PYLORI (BREATH) (test cod e = 01215) POSITIVE LIPID [id number] 00:00:00* Test Item Value Reference Range Interpretation Comme nts CHOLESTEROL (test code = 2210) 185 MG/DL TRIGLYCERIDES (test code = 2232) 190 MG/DL HDL CHOLESTEROL (test code = 2220) 49 MG/DL CALC LDL CHOL (test code = 2237) 105 MG/DL RISK RATIO LDL/HDL (test cod e = 2238) 2.14 RATIO COMPREHENSIVE METABOLIC [id number] 00:00:00* Test Item Value Reference Range Interpretation Comme nts GLUCOSE (test code = 2217) 371 MG/DL BUN (test code = 2208) 11 MG/DL CREATININE (test code = 2214) 0.61 MG/DL eGFR AMER. (test cod e = 49094) 123 ML/MIN/1.73 eGFR NON- AMER. (test code = 34111) 106 ML/MIN/1.73 CALC BUN/CREAT (test code = [...] code = 2219) 20 U/L COMPREHENSIVE METABOLIC [id number] 00:00:00* Test Item Value Reference Range Interpretation Comme nts GLUCOSE (test code = 2217) 371 MG/DL BUN (test code = 2208) 11 MG/DL CREATININE (test code = 2214) 0.61 MG/DL eGFR AMER. (test cod e = 85778) 123 ML/MIN/1.73 eGFR NON- AMER. (test code = 30278) 106 ML/MIN/1.73 CALC BUN/CREAT (test code = [...] ALT (test code = 2219) 20 U/L [id number] 00:00:00* Test Item Value Reference Range Interpretation Comme nts TSH, THIRD GENERATION (test code = 2821) 1.180 UIU/ML [id number] 00:00:00* Test Item Value Reference Range Interpretation Comme nts TSH, THIRD GENERATION (test code = 2821) 1.180 UIU/ML [id number] 00:00:00* Test Item Value Reference Range Interpretation Comme nts TSH, THIRD GENERATION (test code = 2821) 1.180 UIU/ML H. PYLORI (BREATH)2021-01-20 00:00:00* Test Item Value Reference Range Interpretation Comme nts H. PYLORI (BREATH) (test cod e = 42670) POSITIVE H. PYLORI (BREATH)2021-01-20 00:00:00* Test Item Value Reference Range Interpretation Comme nts H. PYLORI (BREATH) (test cod e = 76080) POSITIVE CBC W/AUTO [id number] 00:00:00* Test Item Value Reference Range Interpretation [...] code = 1015) 387 K/UL CBC W/AUTO [id number] 00:00:00* Test Item Value Reference Range Interpretation [...] code = 1015) 387 K/UL CBC W/AUTO [id number] 00:00:00* Test Item Value Reference Range Interpretation [...] (test code = 1015) 387 K/UL HEMOGLOBIN [id number] 00:00:00* Test Item Value Reference Range Interpretation Comme nts HEMOGLOBIN A1c (test code = 48643) 11.1 % HEMOGLOBIN [id number] 00:00:00* Test Item Value Reference Range Interpretation Comme nts HEMOGLOBIN A1c (test code = 28910) 11.1 % HEMOGLOBIN [id number] 00:00:00* Test Item Value Reference Range Interpretation Comme nts HEMOGLOBIN A1c (test code = 63919) 11.1 % LIPID [id number] 00:00:00* Test Item Value Reference Range Interpretation Comme nts CHOLESTEROL (test code = 2210) 185 MG/DL TRIGLYCERIDES (test code = 2232) 190 MG/DL HDL CHOLESTEROL (test code = 2220) 49 MG/DL CALC LDL CHOL (test code = 2237) 105 MG/DL RISK RATIO LDL/HDL (test cod e = 2238) 2.14 RATIO LIPID [id number] 00:00:00* Test Item Value Reference Range Interpretation Comme nts CHOLESTEROL (test code = 2210) 185 MG/DL TRIGLYCERIDES (test code = 2232) 190 MG/DL HDL CHOLESTEROL (test code = 2220) 49 MG/DL CALC LDL CHOL (test code = 2237) 105 MG/DL RISK RATIO LDL/HDL (test cod e = 2238) 2.14 RATIO COMPREHENSIVE METABOLIC [id number] 00:00:00* Test Item Value Reference Range Interpretation Comme nts GLUCOSE (test code = 2217) 371 MG/DL BUN (test code = 2208) 11 MG/DL CREATININE (test code = 2214) 0.61 MG/DL eGFR AMER. (test cod e = 81802) 123 ML/MIN/1.73 eGFR NON- AMER. (test code = 77991) 106 ML/MIN/1.73 CALC BUN/CREAT (test code = [...] code = 2219) 20 U/L COMPREHENSIVE METABOLIC [id number] 00:00:00* Test Item Value Reference Range Interpretation Comme nts GLUCOSE (test code = 2217) 371 MG/DL BUN (test code = 2208) 11 MG/DL CREATININE (test code = 2214) 0.61 MG/DL eGFR AMER. (test cod e = ) 123 ML/MIN/1.73 eGFR NON- AMER. (test code = 00636) 106 ML/MIN/1.73 CALC BUN/CREAT (test code = [...] ALT (test code = 2219) 20 U/L [id number] 00:00:00* Test Item Value Reference Range Interpretation Comme nts TSH, THIRD GENERATION (test code = 2821) 1.180 UIU/ML [id number] 00:00:00* Test Item Value Reference Range Interpretation Comme nts TSH, THIRD GENERATION (test code = 2821) 1.180 UIU/ML [id number] 00:00:00* Test Item Value Reference Range Interpretation Comme nts TSH, THIRD GENERATION (test code = 2821) 1.180 UIU/ML H. PYLORI (BREATH)2021-01-20 00:00:00* Test Item Value Reference Range Interpretation Comme nts H. PYLORI (BREATH) (test cod e = 14745) POSITIVE CBC W/AUTO [id number] 00:00:00* Test Item Value Reference Range Interpretation [...] code = 1015) 387 K/UL CBC W/AUTO [id number] 00:00:00* Test Item Value Reference Range Interpretation [...] (test code = 1015) 387 K/UL HEMOGLOBIN [id number] 00:00:00* Test Item Value Reference Range Interpretation Comme nts HEMOGLOBIN A1c (test code = 56845) 11.1 % HEMOGLOBIN [id number] 00:00:00* Test Item Value Reference Range Interpretation Comme nts HEMOGLOBIN A1c (test code = 77244) 11.1 % LIPID [id number] 00:00:00* Test Item Value Reference Range Interpretation Comme nts CHOLESTEROL (test code = 2210) 185 MG/DL TRIGLYCERIDES (test code = 2232) 190 MG/DL HDL CHOLESTEROL (test code = 2220) 49 MG/DL CALC LDL CHOL (test code = 2237) 105 MG/DL RISK RATIO LDL/HDL (test cod e = 2238) 2.14 RATIO COMPREHENSIVE METABOLIC [id number] 00:00:00* Test Item Value Reference Range Interpretation Comme nts GLUCOSE (test code = 2217) 371 MG/DL BUN (test code = 2208) 11 MG/DL CREATININE (test code = 2214) 0.61 MG/DL eGFR AMER. (test cod e = 33587) 123 ML/MIN/1.73 eGFR NON- AMER. (test code = 44217) 106 ML/MIN/1.73 CALC BUN/CREAT (test code = [...] ALT (test code = 2219) 20 U/L [id number] 00:00:00* Test Item Value Reference Range Interpretation Comme nts TSH, THIRD GENERATION (test code = 2821) 1.180 UIU/ML [id number] 00:00:00* Test Item Value Reference Range Interpretation Comme nts TSH, THIRD GENERATION (test code = 2821) 1.180 UIU/ML H. PYLORI (BREATH)2021-01-20 00:00:00* Test Item Value Reference Range Interpretation Comme nts H. PYLORI (BREATH) (test cod e = 51590) POSITIVE H. PYLORI (BREATH)2021-01-20 00:00:00* Test Item Value Reference Range Interpretation Comme nts H. PYLORI (BREATH) (test cod e = 50593) POSITIVE CBC W/AUTO [id number] 00:00:00* Test Item Value Reference Range Interpretation [...] code = 1015) 387 K/UL CBC W/AUTO [id number] 00:00:00* Test Item Value Reference Range Interpretation [...] code = 1015) 387 K/UL CBC W/AUTO [id number] 00:00:00* Test Item Value Reference Range Interpretation [...] (test code = 1015) 387 K/UL HEMOGLOBIN [id number] 00:00:00* Test Item Value Reference Range Interpretation Comme nts HEMOGLOBIN A1c (test code = 14312) 11.1 % HEMOGLOBIN [id number] 00:00:00* Test Item Value Reference Range Interpretation Comme nts HEMOGLOBIN A1c (test code = 36633) 11.1 % HEMOGLOBIN [id number] 00:00:00* Test Item Value Reference Range Interpretation Comme nts HEMOGLOBIN A1c (test code = 75833) 11.1 % LIPID [id number] 00:00:00* Test Item Value Reference Range Interpretation Comme nts CHOLESTEROL (test code = 2210) 185 MG/DL TRIGLYCERIDES (test code = 2232) 190 MG/DL HDL CHOLESTEROL (test code = 2220) 49 MG/DL CALC LDL CHOL (test code = 2237) 105 MG/DL RISK RATIO LDL/HDL (test cod e = 2238) 2.14 RATIO LIPID [id number] 00:00:00* Test Item Value Reference Range Interpretation Comme nts CHOLESTEROL (test code = 2210) 185 MG/DL TRIGLYCERIDES (test code = 2232) 190 MG/DL HDL CHOLESTEROL (test code = 2220) 49 MG/DL CALC LDL CHOL (test code = 2237) 105 MG/DL RISK RATIO LDL/HDL (test cod e = 2238) 2.14 RATIO COMPREHENSIVE METABOLIC [id number] 00:00:00* Test Item Value Reference Range Interpretation Comme nts GLUCOSE (test code = 2217) 371 MG/DL BUN (test code = 2208) 11 MG/DL CREATININE (test code = 2214) 0.61 MG/DL eGFR AMER. (test cod e = 32298) 123 ML/MIN/1.73 eGFR NON- AMER. (test code = 03177) 106 ML/MIN/1.73 CALC BUN/CREAT (test code = [...] code = 2219) 20 U/L COMPREHENSIVE METABOLIC [id number] 00:00:00* Test Item Value Reference Range Interpretation Comme nts GLUCOSE (test code = 2217) 371 MG/DL BUN (test code = 2208) 11 MG/DL CREATININE (test code = 2214) 0.61 MG/DL eGFR AMER. (test cod e = 43247) 123 ML/MIN/1.73 eGFR NON- AMER. (test code = 54577) 106 ML/MIN/1.73 CALC BUN/CREAT (test code = [...] ALT (test code = 2219) 20 U/L [id number] 00:00:00* Test Item Value Reference Range Interpretation Comme nts TSH, THIRD GENERATION (test code = 2821) 1.180 UIU/ML [id number] 00:00:00* Test Item Value Reference Range Interpretation Comme nts TSH, THIRD GENERATION (test code = 2821) 1.180 UIU/ML [id number] 00:00:00* Test Item Value Reference Range Interpretation Comme nts TSH, THIRD GENERATION (test code = 2821) 1.180 UIU/ML H. PYLORI (BREATH)2021-01-20 00:00:00* Test Item Value Reference Range Interpretation Comme nts H. PYLORI (BREATH) (test cod e = 69991) POSITIVE H. PYLORI (BREATH)2021-01-20 00:00:00* Test Item Value Reference Range Interpretation Comme nts H. PYLORI (BREATH) (test cod e = 25184) POSITIVE CBC W/AUTO [id number] 00:00:00* Test Item Value Reference Range Interpretation [...] code = 1015) 387 K/UL CBC W/AUTO [id number] 00:00:00* Test Item Value Reference Range Interpretation [...] code = 1015) 387 K/UL CBC W/AUTO [id number] 00:00:00* Test Item Value Reference Range Interpretation [...] (test code = 1015) 387 K/UL HEMOGLOBIN [id number] 00:00:00* Test Item Value Reference Range Interpretation Comme nts HEMOGLOBIN A1c (test code = 63945) 11.1 % HEMOGLOBIN [id number] 00:00:00* Test Item Value Reference Range Interpretation Comme nts HEMOGLOBIN A1c (test code = 82528) 11.1 % HEMOGLOBIN [id number] 00:00:00* Test Item Value Reference Range Interpretation Comme nts HEMOGLOBIN A1c (test code = 03471) 11.1 % LIPID [id number] 00:00:00* Test Item Value Reference Range Interpretation Comme nts CHOLESTEROL (test code = 2210) 185 MG/DL TRIGLYCERIDES (test code = 2232) 190 MG/DL HDL CHOLESTEROL (test code = 2220) 49 MG/DL CALC LDL CHOL (test code = 2237) 105 MG/DL RISK RATIO LDL/HDL (test cod e = 2238) 2.14 RATIO COVID-19 (ID NOW RAPID TESTING)2020-12-17 18:20:32* Test Item Value Reference Range Interpretation Comme nts SARS-CoV-2 Rapid ID NOW (test code = 01182-0) Not Detected Not Detected MATTHEW (test code = MATTHEW) ID NOW COVID-19 As say is an isothermal nucleic acid amplification test intended for the qualitative detection of nucleic acid from SARS-CoV-2 viral RNA in nasopharyngeal (B[employer] WORKER) specimens. It is used under Emergency Use [...] clinically indicated. Lab Interpretation (test code = 05747-5) [facility]ysis[facility] 18:20:17* Test Item Value Reference Range Interpretation Comme nts APPEARANCE (test code = 2268876315) Clear Clear COLOR (test code = 2251291307) Yellow Yellow PH (test code = 2281770054) 4.8-8.0 SP GRAVITY (test code = 7389099931) 1.003-1.030 H GLU U QUAL (test code = 9128056776) 500 mg/dL Normal A BLOOD (test code = 9473418727) Negative Negative KETONES (test code = 7660982430) 5 mg/dL Negative A PROTEIN (test code = 2887-8) 30 mg/dL Negative A UROBILIN (test code = 5055804043) Normal Normal BILIRUBIN (test code = 0307459865) Negative Negative NITRITE (test code = 0667598783) Negative Negative LEUK CHASITY (test code = 8208083952) 25/uL Negative A RBC/HPF (test code = 5122746528) See_Comment H [Automated Puzzle[employer] ge] The system which generated this result transmitted reference range: 0 - 3 HPF. The reference range was not used to interpret this result as normal/abnormal. WBC/HPF (test code = 5507176292) See_Comment [Automated messa ge] The system which generated this result transmitted reference range: 0 - 5 HPF. The reference range was not used to interpret this result as normal/abnormal. BACTERIA (test code = 2309520817) Few Negative A SQ EPITH (test code = 1682959423) HPF Lab Interpretation (test code = 46198-3) [facility]normal [facility] CenterHepatic Function Panel (ALB, T.PRO, BILI T, BU/BC, ALT, AST, ALK PHOS)2020-12-17 18:07:11* Test Item Value Reference Range Interpretation Comme nts TOTAL BILI (test code = 6113315547) 0.6 mg/dL 0.1-1.1 BILI UNCON (test code = 0491584512) 0.5 mg/dL 0.1-1.1 BILI CONJ (test code = 1240851778) 0.0 mg/dL 0.0-0.3 T PROTEIN (test code = 4114517880) 8.2 g/dL 6.3-8.2 ALBUMIN (test code = 7118058571) 4.4 g/dL 3.5-5.0 ALK PHOS (test code = 2464590511) 134 U/L 34-122 H ALTv (test code = 1742-6) 29 U/L 5-35 AST(SGOT) (test code = 7556019173) 35 U/L 13-40 Lab Interpretation (test cod e = 50900-5) [facility]normal [facility] CenterBasic Metabolic Panel (NA, K, CL, CO2, GLUCOSE, BUN, CREATININE, CA)2020-12-17 18:06:51* Test Item Value Reference Range Interpretation Comme nts NA (test code = 8647450542) 135 mmol/L 135-145 K (test code = 9986429938) 4.4 mmol/L 3.5-5.0 CL (test code = 2553664608) 96 mmol/L 98-108 L CO2 TOTAL (test code = 2658425842) 31 mmol/L 23-31 AGAP (test code = 9627940946) 2-16 BUN (test code = 6580841597) 13 mg/dL 7-23 GLUCOSE (test code = 5864850320) 370 mg/dL 70-110 H CREATININE (test code = 1818257429) 0.50 mg/dL 0.50-1.04 CALCIUM (test code = 2771979449) 9.2 mg/dL 8.6-10.6 eGFR Calculation (Non-) (test code = 3622801264) mL/min/1.73m2 eGFR Calculation () (test code = 0289150978) mL/min/1.73m2 MATTHEW (test code = MATTHEW) Association [...] imaging tests). Lab Interpretation (test code = 80133-7) Abnormal [facility] CenterLipase [id number] 18:06:51* Test Item Value Reference Range Interpretation Comme [facility] LIPASE (test code = 2882005110) 169 U/L 0-220 Lab Interpretation (test cod e = 98117-3) Normal [facility] CenteraPTT2021-03-13 18:05:30* Test Item Value Reference Range Interpretation Comme nts APTT Patient (test code = 3173-2) See_Comment [Automated message] The system which generated this result transmitted reference range: 23 - 38 Seconds. The reference range was not used to interpret this result as normal/abnormal. MATTHEW (test code = MATTHEW) The [facility] patient population mean normal value for aPTT is 30 seconds. Lab Interpretation (test code = 42898-5) Normal [facility] CenterProthrombin Time (PT) / [id number] 18:03:29 * Test Item Value Reference Range Interpretation Comme [facility] PROTIME PATIENT (test code = 5964-2) See_Comment [Automated Puzzle[employer] ge] The system which generated this result transmitted reference range: 12.0 - 14.7 Seconds. The reference range was not used to interpret this result as normal/abnormal. INR (test code = 6301-6) Normal INR <1.1; Warfarin Therapeutic range 2.0 to 3.0 or 2.5 to 3.5, depending upon the indications. Lab Interpretation (test code = 63304-5) Normal [facility] CenterCBC with [id number] 17:55:29* Test Item Value Reference Range Interpretation Comme [facility] WBC (test code = 6690-2) See_Comment [Automated [...] 32.8 g/dL 31.6-35.1 RDW-SD (test code = 76294-0) 39.1 fL 39.0-49.9 RDW-CV (test code = 788-0) 12.3 % 12.0-15.5 PLT (test code = 777-3) See_Comment H [Automated messa ge] The system which generated this result transmitted reference range: 166 - 358 10*3/?L. The reference range was not used to interpret this result as normal/abnormal. MPV (test code = 75232-9) 10.3 fL 9.5-12.9 NRBC/100 WBC (test code = 0664473633) See_Comment [Automated me ssage] The system which generated this result transmitted reference range: 0.0 - 10.0 /100 WBCs. The reference range was not used to interpret this result as normal/abnormal. NRBC x10^3 (test code = 6129865499) <0.01 See_Comment [Automated messa ge] The system which generated this result transmitted reference range: 10*3/?L. The reference range was not used to interpret this result as normal/abnormal. GRAN MAT (NEUT) % (test code = 770-8) 72.0 % IMM GRAN % (test code = 9086903547) 0.40 % LYMPH % (test code = 736-9) 18.4 % MONO % (test code = 5905-5) 6.4 % EOS % (test code = 713-8) 2.2 % BASO % (test code = 706-2) 0.6 % GRAN MAT x10^3(ANC) (test code = 7116085314) 7.61 10*3/uL 1.88-7.09 H IMM GRAN x10^3 (test code = 1646380460) 0.04 10*3/uL 0.00-0.06 LYMPH x10^3 (test code = 731-0) 1.94 10*3/uL 1.32-3.29 MONO x10^3 (test code = 742-7) 0.68 10*3/uL 0.33-0.92 EOS x10^3 (test code = 711-2) 0.23 10*3/uL 0.03-0.39 BASO x10^3 (test code = 704-7) 0.06 10*3/uL 0.01-0.07 Lab Interpretation (test code = 54301-1) Abnormal [facility] CenterXR CHEST 1 [id number] 14:56:41.No acute cardiopulmonary abnormality Preliminary Report Dictated [...] cardiopul monary abnormalityPreliminary Report Dictated by Resident: Gurjit Narayan MD., have reviewed this study and agree with the abovereport. [facility] CenterPOCT [id number] 14:14:00* Test Item Value Reference Range Interpretation Comme nts POCT PREG (test code = 1605) negative On board controls acceptable with C Line (test code = 3574) present Lab Interpretation (test cod e = 07628-5) Normal [facility] CenterD-[id number] 13:53:00* Test Item Value Reference Range Interpretation Comments D-DIMER (test code = 4991090914) See_Comment H [Automated message] The system which [...] a diagnosis. Lab Interpretation (test code = 83183-7) Abnormal [facility] CenterPregnancy Test, [id number] 13:40:00* Test Item Value Reference Range Interpretation Comme nts PREG SERUM (test code = 9254413498) Negative MATTHEW (test code = MATTHEW) Less than 10 IU/L. ?If low titer or ectopic is suspected, resubmit specimen in 48-72 hours. [facility] CenterTroponin [id number] 13:36:00* Test Item Value Reference Range Interpretation Comme nts TROPONIN I (test code = 1084509985) <0.012 See_Comment [Automated message] The system which [...] biotin. ? Lab Interpretation (test code = 83445-5) Normal [facility] CenteraPTT2021-01-24 13:35:00* Test Item Value Reference Range Interpretation Comme [facility] APTT Patient (test code = 3173-2) See_Comment [Automated message] The system which generated this result transmitted reference range: 23 - 38 Seconds. The reference range was not used to interpret this result as normal/abnormal. MATTHEW (test code = MATTHEW) The [facility] patient population mean normal value for aPTT is 30 seconds. Lab Interpretation (test code = 00538-2) Normal [facility] CenterProthrombin Time (PT) / [id number] 13:33:00 * Test Item Value Reference Range Interpretation Comme [facility] PROTIME PATIENT (test code = 5964-2) See_Comment [Automated messa ge] The system which generated this result transmitted reference range: 12.0 - 14.7 Seconds. The reference range was not used to interpret this result as normal/abnormal. INR (test code = 6301-6) Normal INR <1.1; Warfarin Therapeutic range 2.0 to 3.0 or 2.5 to 3.5, depending upon the indications. Lab Interpretation (test code = 57111-8) Normal [facility] CenterBasi Metabolic Panel (NA, K, CL, CO2, GLUCOSE, BUN, CREATININE, CA)2020-10-30 13:25:00* Test Item Value Reference Range Interpretation Comme [facility] NA (test code = 1535189132) 137 mmol/L 135-145 K (test code = 3638334508) 4.4 mmol/L 3.5-5 CL (test code = 2666725227) 101 mmol/L 98-108 CO2 TOTAL (test code = 0115225565) 28 mmol/L 23-31 AGAP (test code = 2682157553) 2-16 BUN (test code = 3489345215) 12 mg/dL 7-23 GLUCOSE (test code = 0465379656) 195 mg/dL 70-110 H CREATININE (test code = 6264663637) 0.42 mg/dL 0.5-1.04 L CALCIUM (test code = 6958822217) 9.2 mg/dL 8.6-10.6 eGFR Calculation (Non-) (test code = 3403406773) mL/min/1.73m2 eGFR Calculation () (test code = 3921035456) mL/min/1.73m2 MATTHEW (test code = MATTHEW) Association [...] imaging tests). Lab Interpretation (test code = 20934-0) Abnormal [facility] CenterHepatic Function Panel (ALB, T.PRO, BILI T, BU/BC, ALT, AST, ALK PHOS)2020-10-30 13:25:00* Test Item Value Reference Range Interpretation Comme nts TOTAL BILI (test code = 3778422372) 1.1 mg/dL 0.1-1.1 BILI UNCON (test code = 6445277288) 0.8 mg/dL 0.1-1.1 BILI CONJ (test code = 2166074030) 0.0 mg/dL 0-0.3 T PROTEIN (test code = 7063138871) 8.2 g/dL 6.3-8.2 ALBUMIN (test code = 2038760273) 4.2 g/dL 3.5-5 ALK PHOS (test code = 5317134102) 109 U/L 34-122 ALTv (test code = 1742-6) 23 U/L 5-35 AST(SGOT) (test code = 9166962034) 35 U/L 13-40 Lab Interpretation (test cod e = 39726-1) Normal [facility] CenterADC,CLC OR LCC ONLY - INFLUENZA A & B DIRECT [id number] 13:21:00* Test Item Value Reference Range Interpretation Comme nts Influenza A (test code = 76535-6) Negative Negative Influenza B (test code = 02301-9) Negative Negative Lab Interpretation (test cod e = 74627-8) Normal [facility] STREP SCREEN FOR GROUP [id number] 13:21:00* Test Item Value Reference Range Interpretation Comme nts Streptococcus pyogenes (grou p A) antigen (test code = 23200-2) Negative Negative Lab Interpretation (test cod e = 73232-0) Normal [facility] CenterCOVID-19 (ID NOW RAPID TESTING)2020-10-30 13:18:00* Test Item Value Reference Range Interpretation Comme nts SARS-CoV-2 Rapid ID NOW (test code = 97772-5) Not Detected Not Detected MATTHEW (test code = MATTHEW) ID NOW COVID-19 As say is an isothermal nucleic acid amplification test intended for the qualitative detection of nucleic acid from SARS-CoV-2 viral RNA in nasopharyngeal ([employer] WORKER) specimens. It is used under Emergency Use [...] clinically indicated. Lab Interpretation (test code = 32851-6) Normal [facility] with [id number] 13:05:00* Test Item Value Reference Range Interpretation Comme nts WBC (test code = 6690-2) See_Comment H [Automated messa ge] The system which generated this result transmitted reference range: 4.30 - 11.10 10*3/?L. The reference range was not used to interpret this result as normal/abnormal. RBC (test code = 789-8) See_Comment [Automated Puzzle[employer] ge] The system which generated this result [...] 32.4 g/dL 31.6-35.1 RDW-SD (test code = 18193-4) 41.0 fL 39-49.9 RDW-CV (test code = 788-0) 12.4 % 12-15.5 PLT (test code = 777-3) See_Comment H [Automated messa ge] The system which generated this result transmitted reference range: 166 - 358 10*3/?L. The reference range was not used to interpret this result as normal/abnormal. MPV (test code = 87644-3) 10.5 fL 9.5-12.9 NRBC/100 WBC (test code = 2242745031) See_Comment [Automated Venda ssage] The system which generated this result transmitted reference range: 0.0 - 10.0 /100 WBCs. The reference range was not used to interpret this result as normal/abnormal. NRBC x10^3 (test code = 5305379299) <0.01 See_Comment [Automated PuzzleSocial[employer] ge] The system which generated this result transmitted reference range: 10*3/?L. The reference range was not used to interpret this result as normal/abnormal. GRAN MAT (NEUT) % (test code = 770-8) 66.0 % IMM GRAN % (test code = 6376565381) 0.40 % LYMPH % (test code = 736-9) 19.5 % MONO % (test code = 5905-5) 9.3 % EOS % (test code = 713-8) 4.2 % BASO % (test code = 706-2) 0.6 % GRAN MAT x10^3(ANC) (test code = 3706104927) 7.63 10*3/uL 1.88-7.09 H IMM GRAN x10^3 (test code = 4285624686) 0.05 10*3/uL 0-0.06 LYMPH x10^3 (test code = 731-0) 2.26 10*3/uL 1.32-3.29 MONO x10^3 (test code = 742-7) 1.08 10*3/uL 0.33-0.92 H EOS x10^3 (test code = 711-2) 0.49 10*3/uL 0.03-0.39 H BASO x10^3 (test code = 704-7) 0.07 10*3/uL 0.01-0.07 Lab Interpretation (test code = 42944-5) Abnormal [facility] CenterMAGNESIUM [ADDED]2020-10-12 00:00:00* Test Item Value Reference Range [...] MG/DL eGFR AMER. (test cod e = 84232) 112 ML/MIN/1.73 eGFR NON- AMER. (test code = 81912) 97 ML/MIN/1.73 CALC BUN/CREAT (test code = [...] MG/DL eGFR AMER. (test cod e = 53185) 112 ML/MIN/1.73 eGFR NON- AMER. (test code = 02473) 97 ML/MIN/1.73 CALC BUN/CREAT (test code = [...] MG/DL eGFR AMER. (test cod e = 22205) 112 ML/MIN/1.73 eGFR NON- AMER. (test code = 49374) 97 ML/MIN/1.73 CALC BUN/CREAT (test code = [...] MG/DL eGFR AMER. (test cod e = 86174) 112 ML/MIN/1.73 eGFR NON- AMER. (test code = 67637) 97 ML/MIN/1.73 CALC BUN/CREAT (test code = [...] MG/DL eGFR AMER. (test cod e = 61203) 112 ML/MIN/1.73 eGFR NON- AMER. (test code = 31498) 97 ML/MIN/1.73 CALC BUN/CREAT (test code = [...] MG/DL eGFR AMER. (test cod e = 43506) 112 ML/MIN/1.73 eGFR NON- AMER. (test code = 38984) 97 ML/MIN/1.73 CALC BUN/CREAT (test code = [...] MG/DL eGFR AMER. (test cod e = 94121) 112 ML/MIN/1.73 eGFR NON- AMER. (test code = 02438) 97 ML/MIN/1.73 CALC BUN/CREAT (test code = [...] nts SARS-CoV-2 INTERPRETATION (t est code = 65744) NEGATIVE SOURCE (test code = 86967) NOT SPECIFIED SARS-CoV-2 (COVID-19) by RT-PCR (HIGH RISK)2020-10-06 00:00:00* Test Item Value Reference Range Interpretation Comme nts SARS-CoV-2 INTERPRETATION (t est code = 79073) NEGATIVE SOURCE (test code = 74995) NOT SPECIFIED SARS-CoV-2 (COVID-19) by RT-PCR (HIGH RISK)2020-10-06 00:00:00* Test Item Value Reference Range Interpretation Comme nts SARS-CoV-2 INTERPRETATION (t est code = 72067) NEGATIVE SOURCE (test code = 09602) NOT SPECIFIED SARS-CoV-2 (COVID-19) by RT-PCR (HIGH RISK)2020-10-06 00:00:00* Test Item Value Reference Range Interpretation Comme nts SARS-CoV-2 INTERPRETATION (t est code = 75371) NEGATIVE SOURCE (test code = 64889) NOT SPECIFIED SARS-CoV-2 (COVID-19) by RT-PCR (HIGH RISK)2020-10-06 00:00:00* Test Item Value Reference Range Interpretation Comme nts SARS-CoV-2 INTERPRETATION (t est code = 27114) NEGATIVE SOURCE (test code = 71288) NOT SPECIFIED SARS-CoV-2 (COVID-19) by RT-PCR (HIGH RISK)2020-10-06 00:00:00* Test Item Value Reference Range Interpretation Comme nts SARS-CoV-2 INTERPRETATION (t est code = 26072) NEGATIVE SOURCE (test code = 23967) NOT SPECIFIED SARS-CoV-2 (COVID-19) by RT-PCR (HIGH RISK)2020-10-06 00:00:00* Test Item Value Reference Range Interpretation Comme nts SARS-CoV-2 INTERPRETATION (t est code = 37124) NEGATIVE SOURCE (test code = 14108) NOT SPECIFIED XR CHEST 1 [id number] 00:19:17Grossly unchanged streaky opacities associated with known [...] known COVID 19pneumonia.Preliminary Report Dictated by Resident: Hugh Robertson, Gurjit Santamaria MD., have reviewed this study and agree with the abovereport.[facility] CenterURINALYSIS 2020-09-26 23:37:00* Test Item Value Reference Range Interpretation Comme nts APPEARANCE (test code = 6824062067) Clear Clear COLOR (test code = 2585030030) Yellow Yellow PH (test code = 4197151449) 4.8-8.0 SP GRAVITY (test code = 8315743253) 1.003-1.030 GLU U QUAL (test code = 6112472281) Normal Normal BLOOD (test code = 6707079468) Negative Negative KETONES (test code = 7320080369) Negative Negative PROTEIN (test code = 2887-8) Negative Negative UROBILIN (test code = 3606359213) Normal Normal BILIRUBIN (test code = 7957972025) Negative Negative NITRITE (test code = 5963837627) Negative Negative LEUK CHASITY (test code = 4491214681) 500/uL Negative A RBC/HPF (test code = 1010277106) See_Comment [Automated PuzzleSociala ge] The system which generated this result transmitted reference range: 0 - 3 HPF. The reference range was not used to interpret this result as normal/abnormal. WBC/HPF (test code = 1726602354) See_Comment H [Automated PuzzleSociala ge] The system which generated this result transmitted reference range: 0 - 5 HPF. The reference range was not used to interpret this result as normal/abnormal. BACTERIA (test code = 8190994337) Few Negative A MUCOUS (test code = 2602323114) Slight Negative LPF A SQ EPITH (test code = 2784190761) HPF TRANS EPI (test code = 2883436218) <1 See_Comment [Automated PuzzleSociala ge] The system which generated this result transmitted reference range: <=1 HPF. The reference range was not used to interpret this result as normal/abnormal. Lab Interpretation (test code = 98444-2) Abnormal [facility] CenterTROPONIN [id number] 22:39:00* Test Item Value Reference Range Interpretation Comme nts TROPONIN I (test code = 2991528197) <0.012 See_Comment [Automated message] The system which [...] biotin. ? Lab Interpretation (test code = 21687-3) Normal [facility] CenterN-TERMINAL [id number] 22:36:00* Test Item Value Reference Range Interpretation Comme nts NT-proBNP (test code = 8155893248) 54 pg/mL See_Comment [Automated message] The system which generated this result transmitted reference range: <=125. The reference range was not used to interpret this result as normal/abnormal. MATTHEW (test code = MATTHEW) Biotin has been reported to cause a negative bias, interpret results relative to patient's use of biotin. Lab Interpretation (test code = 06814-4) Normal [facility] CenterCOMP. METABOLIC PANEL (90979)2020-09-26 22:28:00* Test Item Value Reference Range Interpretation Comme nts NA (test code = 8362752536) 137 mmol/L 135-145 K (test code = 3251645397) 3.2 mmol/L 3.5-5 L CL (test code = 1396802545) 97 mmol/L 98-108 L CO2 TOTAL (test code = 5806611387) 30 mmol/L 23-31 AGAP (test code = 7711455122) 2-16 BUN (test code = 3386870759) 9 mg/dL 7-23 GLUCOSE (test code = 5573552082) 191 mg/dL 70-110 H CREATININE (test code = 0371903918) 0.52 mg/dL 0.5-1.04 TOTAL BILI (test code = 5988642707) 0.8 mg/dL 0.1-1.1 CALCIUM (test code = 0069836715) 8.9 mg/dL 8.6-10.6 T PROTEIN (test code = 4172543949) 7.4 g/dL 6.3-8.2 ALBUMIN (test code = 0169559596) 4.1 g/dL 3.5-5 ALK PHOS (test code = 8152945506) 98 U/L 34-122 ALTv (test code = 1742-6) 19 U/L 5-35 AST(SGOT) (test code = 1080804615) 21 U/L 13-40 eGFR Calculation (Non-) (test code = 9291519443) mL/min/1.73m2 eGFR Calculation () (test code = 3979121104) mL/min/1.73m2 MATTHEW (test code = MATTHEW) Association [...] imaging tests). Lab Interpretation (test code = 70845-0) Abnormal [facility] CenterLIPASE2020-12-21 22:27:00* Test Item Value Reference Range Interpretation Comme nts LIPASE (test code = 1377127095) 90 U/L 0-220 Lab Interpretation (test cod e = 96752-7) Normal [facility] WITH [id number] 22:26:00* Test Item Value Reference Range Interpretation Comme nts WBC (test code = 6690-2) See_Comment [Automated Last 2 Left] The system which generated this result transmitted reference range: 4.30 - 11.10 10*3/?L. The reference range was not used to interpret this result as normal/abnormal. RBC (test code = 789-8) See_Comment [Automated Puzzle[employer] PeopleString] The system which generated this result transmitted [...] 32.6 g/dL 31.6-35.1 RDW-SD (test code = 51436-7) 40.6 fL 39-49.9 RDW-CV (test code = 788-0) 12.4 % 12-15.5 PLT (test code = 777-3) See_Comment H [Automated messa ge] The system which generated this result transmitted reference range: 166 - 358 10*3/?L. The reference range was not used to interpret this result as normal/abnormal. MPV (test code = 15821-7) 10.3 fL 9.5-12.9 NRBC/100 WBC (test code = 7050792298) See_Comment [Automated me ssage] The system which generated this result transmitted reference range: 0.0 - 10.0 /100 WBCs. The reference range was not used to interpret this result as normal/abnormal. NRBC x10^3 (test code = 6023174673) <0.01 See_Comment [Automated messa ge] The system which generated this result transmitted reference range: 10*3/?L. The reference range was not used to interpret this result as normal/abnormal. GRAN MAT (NEUT) % (test code = 770-8) 65.8 % IMM GRAN % (test code = 2139705409) 0.50 % LYMPH % (test code = 736-9) 22.4 % MONO % (test code = 5905-5) 8.9 % EOS % (test code = 713-8) 2.1 % BASO % (test code = 706-2) 0.3 % GRAN MAT x10^3(ANC) (test code = 5095255058) 7.21 10*3/uL 1.88-7.09 H IMM GRAN x10^3 (test code = 8627204846) 0.06 10*3/uL 0-0.06 LYMPH x10^3 (test code = 731-0) 2.45 10*3/uL 1.32-3.29 MONO x10^3 (test code = 742-7) 0.98 10*3/uL 0.33-0.92 H EOS x10^3 (test code = 711-2) 0.23 10*3/uL 0.03-0.39 BASO x10^3 (test code = 704-7) 0.03 10*3/uL 0.01-0.07 Lab Interpretation (test code = 75901-2) Abnormal [facility] SiphqxUPSF-SbZ-0 (COVID-19) by RT-PCR (HIGH RISK) 2020-09-25 00:00:00* Test Item Value Reference Range Interpretation Comme nts SARS-CoV-2 INTERPRETATION (t est code = 62945) POSITIVE SOURCE (test code = 24516) NOT SPECIFIED SARS-CoV-2 (COVID-19) by RT-PCR (HIGH RISK)2020-09-25 00:00:00* Test Item Value Reference Range Interpretation Comme nts SARS-CoV-2 INTERPRETATION (t est code = 24617) POSITIVE SOURCE (test code = 08712) NOT SPECIFIED SARS-CoV-2 (COVID-19) by RT-PCR (HIGH RISK)2020-09-25 00:00:00* Test Item Value Reference Range Interpretation Comme nts SARS-CoV-2 INTERPRETATION (t est code = 51603) POSITIVE SOURCE (test code = 88145) NOT SPECIFIED SARS-CoV-2 (COVID-19) by RT-PCR (HIGH RISK)2020-09-25 00:00:00* Test Item Value Reference Range Interpretation Comme nts SARS-CoV-2 INTERPRETATION (t est code = 37966) POSITIVE SOURCE (test code = 64945) NOT SPECIFIED SARS-CoV-2 (COVID-19) by RT-PCR (HIGH RISK)2020-09-25 00:00:00* Test Item Value Reference Range Interpretation Comme nts SARS-CoV-2 INTERPRETATION (t est code = 42198) POSITIVE SOURCE (test code = 27663) NOT SPECIFIED SARS-CoV-2 (COVID-19) by RT-PCR (HIGH RISK)2020-09-25 00:00:00* Test Item Value Reference Range Interpretation Comme nts SARS-CoV-2 INTERPRETATION (t est code = 49581) POSITIVE SOURCE (test code = 65012) NOT SPECIFIED SARS-CoV-2 (COVID-19) by RT-PCR (HIGH RISK)2020-09-25 00:00:00* Test Item Value Reference Range Interpretation Comme nts SARS-CoV-2 INTERPRETATION (t est code = 27312) POSITIVE SOURCE (test code = 90142) NOT SPECIFIED CT CHEST PULMONARY [id number] 02:11:181. ?No acute pulmonary embolism. PROCEDURE: CT [...] abdomen: Unremarkable. IMPRESSION1. No acute pulmonary embolism. [facility] [id number] 01:20:00* Test Item Value Reference Range Interpretation Comments D-DIMER (test code = 6587848905) See_Comment H [Automated message] The system which [...] a diagnosis. Lab Interpretation (test code = 91142-1) [facility] 1 [id number] 23:44:22Slightly suboptimal lung volumes with perihilar streaky [...] process includingCOVID 19.Preliminary Report Dictated by Resident: Jeferson Chawla MD., have reviewed this study and agree withthe above report.[facility] (ID NOW RAPID TESTING)2020-09-01 23:26:00* Test Item Value Reference Range Interpretation Comme nts SARS-CoV-2 Rapid ID NOW (test code = 15815-7) Positive Not Detected A MATTHEW (test code = MATTHEW) ID NOW COVID-19 As say is an isothermal nucleic acid amplification test intended for the qualitative detection of nucleic acid from SARS-CoV-2 viral RNA in nasopharyngeal ([employer]) specimens. It is used under Emergency Use [...] clinically indicated. Lab Interpretation (test code = 40915-6) [facility]normal [facility] OR [facility] ONLY - INFLUENZA A & B DIRECT [id number] 23:26:00* Test Item Value Reference Range Interpretation Comme nts Influenza A (test code = 28233-0) Negative Negative Influenza B (test code = 50678-7) Negative Negative Lab Interpretation (test cod e = 82022-8) Normal [facility]URIN[facility]IS2020-[facility]-26 23:22:00* Test Item Value Reference Range Interpretation Comme nts APPEARANCE (test code = 0134879637) Clear Clear COLOR (test code = 0066706144) Yellow Yellow PH (test code = 7880702386) 4.8-8.0 SP GRAVITY (test code = 1393664215) 1.003-1.030 GLU U QUAL (test code = 3218993054) 500 mg/dL Normal A BLOOD (test code = 0291270532) Negative Negative KETONES (test code = 8618801236) Negative Negative PROTEIN (test code = 2887-8) 30 mg/dL Negative A UROBILIN (test code = 7734060825) Normal Normal BILIRUBIN (test code = 8440349590) Negative Negative NITRITE (test code = 2573683928) Negative Negative LEUK CHASITY (test code = 4070072809) 250/uL Negative A RBC/HPF (test code = 9609376284) See_Comment H [Automated [employer]] The system which generated this result transmitted reference range: 0 - 3 HPF. The reference range was not used to interpret this result as normal/abnormal. WBC/HPF (test code = 7978254665) See_Comment [Automated [employer]] The system which generated this result transmitted reference range: 0 - 5 HPF. The reference range was not used to interpret this result as normal/abnormal. BACTERIA (test code = 3579777563) Few Negative A MUCOUS (test code = 9002653737) Slight Negative LPF A SQ EPITH (test code = 9701446150) HPF Lab Interpretation (test code = 21509-4) [facility]normal [facility] CenterN-TERMINAL [id number] 23:20:00* Test Item Value Reference Range Interpretation Comme nts NT-proBNP (test code = 1414713105) 38 pg/mL See_Comment [Automated message] The system which generated this result transmitted reference range: <=125. The reference range was not used to interpret this result as normal/abnormal. MATTHEW (test code = MATTHEW) Biotin has been reported to cause a negative bias, interpret results relative to patient's use of biotin. Lab Interpretation (test code = 02754-6) Normal [facility] CenterCOMP. METABOLIC PANEL (66500)2020-09-01 23:12:00* Test Item Value Reference Range Interpretation Comme nts NA (test code = 9320447395) 137 mmol/L 135-145 K (test code = 2209450496) 3.9 mmol/L 3.5-5 CL (test code = 9415140583) 100 mmol/L 98-108 CO2 TOTAL (test code = 9811762852) 29 mmol/L 23-31 AGAP (test code = 1493981625) 2-16 BUN (test code = 5325482203) 17 mg/dL 7-23 GLUCOSE (test code = 2702531757) 174 mg/dL 70-110 H CREATININE (test code = 2562636320) 0.56 mg/dL 0.5-1.04 TOTAL BILI (test code = 0046467412) 0.6 mg/dL 0.1-1.1 CALCIUM (test code = 0651448639) 9.2 mg/dL 8.6-10.6 T PROTEIN (test code = 0281063143) 7.9 g/dL 6.3-8.2 ALBUMIN (test code = 7686475132) 4.3 g/dL 3.5-5 ALK PHOS (test code = 4343309503) 101 U/L 34-122 ALTv (test code = 1742-6) 32 U/L 5-35 AST(SGOT) (test code = 8994839338) 28 U/L 13-40 eGFR Calculation (Non-) (test code = 9815707607) mL/min/1.73m2 eGFR Calculation () (test code = 7845167108) mL/min/1.73m2 MATTHEW (test code = MATTHEW) Association [...] imaging tests). Lab Interpretation (test code = 98625-4) Abnormal [facility] WITH [id number] 23:01:00* Test Item Value Reference Range Interpretation Comme nts WBC (test code = 6690-2) See_Comment [[employer]] The system which generated this result transmitted reference range: 4.30 - 11.10 10*3/?L. The reference range was not used to interpret this result as normal/abnormal. RBC (test code = 789-8) See_Comment [[employer]] The system which generated this result transmitted [...] 32.9 g/dL 31.6-35.1 RDW-SD (test code = 04099-4) 41.6 fL 39-49.9 RDW-CV (test code = 788-0) 12.6 % 12-15.5 PLT (test code = 777-3) See_Comment [Automated [employer]] The system which generated this result transmitted reference range: 166 - 358 10*3/?L. The reference range was not used to interpret this result as normal/abnormal. MPV (test code = 93287-1) 10.0 fL 9.5-12.9 NRBC/100 WBC (test code = 2440965505) See_Comment [Automated [employer]] The system which generated this result transmitted reference range: 0.0 - 10.0 /100 WBCs. The reference range was not used to interpret this result as normal/abnormal. NRBC x10^3 (test code = 4447046115) <0.01 See_Comment [Automated [employer]] The system which generated this result transmitted reference range: 10*3/?L. The reference range was not used to interpret this result as normal/abnormal. GRAN MAT (NEUT) % (test code = 770-8) 77.1 % IMM GRAN % (test code = 9178911340) 0.40 % LYMPH % (test code = 736-9) 10.9 % MONO % (test code = 5905-5) 10.4 % EOS % (test code = 713-8) 0.7 % BASO % (test code = 706-2) 0.5 % GRAN MAT x10^3(ANC) (test code = 0867825263) 6.59 10*3/uL 1.88-7.09 IMM GRAN x10^3 (test code = 7374419476) 0.03 10*3/uL 0-0.06 LYMPH x10^3 (test code = 731-0) 0.93 10*3/uL 1.32-3.29 L MONO x10^3 (test code = 742-7) 0.89 10*3/uL 0.33-0.92 EOS x10^3 (test code = 711-2) 0.06 10*3/uL 0.03-0.39 BASO x10^3 (test code = 704-7) 0.04 10*3/uL 0.01-0.07 Lab Interpretation (test code = 21354-1) Abnormal [facility] CenterLactic Acid Whole [id number] 22:55:00* Test Item Value Reference Range Interpretation Comme nts LACTIC ACID (test code = 2659621929) 1.33 mmol/L [facility] CenterPOCT [id number] 22:52:00* Test Item Value Reference Range Interpretation Comme nts POCT PREG (test code = 1605) negative On board controls acceptable with C Line (test code = 3574) present POCT PREG LOT # (test code = 3575) [id number] POCT PREG TEST DATE ( test code = 3576) 02/03/2022 Lab Interpretation (test cod e = 44319-1) Normal [facility] CenterURIC [id number] 00:00:00* Test Item Value Reference Range Interpretation Comme nts URIC ACID (test code = 2233) 3.6 MG/DL SUKHI REFLEX AUTOIMMUNE AB [id number] 00:00:00* Test Item Value Reference Range Interpretation Comme nts ANTI-NUCLEAR ANTIBODIES (michael t code = 3506) NEGATIVE SUKHI REFLEX AUTOIMMUNE AB [id number] 00:00:00* Test Item Value Reference Range Interpretation Comme nts ANTI-NUCLEAR ANTIBODIES (michael t code = 3506) NEGATIVE COMPREHENSIVE METABOLIC [id number] 00:00:00* Test Item Value Reference Range Interpretation Comme nts GLUCOSE (test code = 2217) 101 MG/DL BUN (test code = 2208) 10 MG/DL CREATININE (test code = 2214) 0.62 MG/DL eGFR AMER. (test cod e = 35140) 123 ML/MIN/1.73 eGFR NON- AMER. (test code = 25435) 106 ML/MIN/1.73 CALC BUN/CREAT (test code = [...] code = 2219) 196 U/L COMPREHENSIVE METABOLIC [id number] 00:00:00* Test Item Value Reference Range Interpretation Comme nts GLUCOSE (test code = 2217) 101 MG/DL BUN (test code = 2208) 10 MG/DL CREATININE (test code = 2214) 0.62 MG/DL eGFR AMER. (test cod e = 21464) 123 ML/MIN/1.73 eGFR NON- AMER. (test code = 01255) 106 ML/MIN/1.73 CALC BUN/CREAT (test code = [...] (test code = 2219) 196 U/L HEMOGLOBIN [id number] 00:00:00* Test Item Value Reference Range Interpretation Comme nts HEMOGLOBIN A1c (test code = 49078) 7.0 % HEMOGLOBIN [id number] 00:00:00* Test Item Value Reference Range Interpretation Comme nts HEMOGLOBIN A1c (test code = 76594) 7.0 % HEMOGLOBIN [id number] 00:00:00* Test Item Value Reference Range Interpretation Comme nts HEMOGLOBIN A1c (test code = 63257) 7.0 % C-REACTIVE [id number] 00:00:00* Test Item Value Reference Range Interpretation Comme nts C-REACTIVE PROTEIN (test cod e = 3513) 0.7 MG/DL C-REACTIVE [id number] 00:00:00* Test Item Value Reference Range Interpretation Comme nts C-REACTIVE PROTEIN (test cod e = 3513) 0.7 MG/DL SEDIMENTATION [id number] 00:00:00* Test Item Value Reference Range Interpretation Comme nts SEDIMENTATION RATE (test cod e = 1017) 22 MM/HOUR SEDIMENTATION [id number] 00:00:00* Test Item Value Reference Range Interpretation Comme nts SEDIMENTATION RATE (test cod e = 1017) 22 MM/HOUR URIC [id number] 00:00:00* Test Item Value Reference Range Interpretation Comme nts URIC ACID (test code = 2233) 3.6 MG/DL URIC [id number] 00:00:00* Test Item Value Reference Range Interpretation Comme nts URIC ACID (test code = 2233) 3.6 MG/DL SUKHI REFLEX AUTOIMMUNE AB [id number] 00:00:00* Test Item Value Reference Range Interpretation Comme nts ANTI-NUCLEAR ANTIBODIES (michael t code = 3506) NEGATIVE SUKHI REFLEX AUTOIMMUNE AB [id number] 00:00:00* Test Item Value Reference Range Interpretation Comme nts ANTI-NUCLEAR ANTIBODIES (michael t code = 3506) NEGATIVE COMPREHENSIVE METABOLIC [id number] 00:00:00* Test Item Value Reference Range Interpretation Comme nts GLUCOSE (test code = 2217) 101 MG/DL BUN (test code = 2208) 10 MG/DL CREATININE (test code = 2214) 0.62 MG/DL eGFR AMER. (test cod e = 54154) 123 ML/MIN/1.73 eGFR NON- AMER. (test code = 12474) 106 ML/MIN/1.73 CALC BUN/CREAT (test code = [...] code = 2219) 196 U/L COMPREHENSIVE METABOLIC [id number] 00:00:00* Test Item Value Reference Range Interpretation Comme nts GLUCOSE (test code = 2217) 101 MG/DL BUN (test code = 2208) 10 MG/DL CREATININE (test code = 2214) 0.62 MG/DL eGFR AMER. (test cod e = 18439) 123 ML/MIN/1.73 eGFR NON- AMER. (test code = 29650) 106 ML/MIN/1.73 CALC BUN/CREAT (test code = [...] (test code = 2219) 196 U/L HEMOGLOBIN [id number] 00:00:00* Test Item Value Reference Range Interpretation Comme nts HEMOGLOBIN A1c (test code = 56099) 7.0 % HEMOGLOBIN [id number] 00:00:00* Test Item Value Reference Range Interpretation Comme nts HEMOGLOBIN A1c (test code = 59596) 7.0 % C-REACTIVE [id number] 00:00:00* Test Item Value Reference Range Interpretation Comme nts C-REACTIVE PROTEIN (test cod e = 3513) 0.7 MG/DL SEDIMENTATION [id number] 00:00:00* Test Item Value Reference Range Interpretation Comme nts SEDIMENTATION RATE (test cod e = 1017) 22 MM/HOUR URIC [id number] 00:00:00* Test Item Value Reference Range Interpretation Comme nts URIC ACID (test code = 2233) 3.6 MG/DL SUKHI REFLEX AUTOIMMUNE AB [id number] 00:00:00* Test Item Value Reference Range Interpretation Comme nts ANTI-NUCLEAR ANTIBODIES (michael t code = 3506) NEGATIVE COMPREHENSIVE METABOLIC [id number] 00:00:00* Test Item Value Reference Range Interpretation Comme nts GLUCOSE (test code = 2217) 101 MG/DL BUN (test code = 2208) 10 MG/DL CREATININE (test code = 2214) 0.62 MG/DL eGFR AMER. (test cod e = 89859) 123 ML/MIN/1.73 eGFR NON- AMER. (test code = 56432) 106 ML/MIN/1.73 CALC BUN/CREAT (test code = [...] (test code = 2219) 196 U/L HEMOGLOBIN [id number] 00:00:00* Test Item Value Reference Range Interpretation Comme nts HEMOGLOBIN A1c (test code = 02262) 7.0 % HEMOGLOBIN [id number] 00:00:00* Test Item Value Reference Range Interpretation Comme nts HEMOGLOBIN A1c (test code = 37124) 7.0 % HEMOGLOBIN [id number] 00:00:00* Test Item Value Reference Range Interpretation Comme nts HEMOGLOBIN A1c (test code = 45761) 7.0 % C-REACTIVE [id number] 00:00:00* Test Item Value Reference Range Interpretation Comme nts C-REACTIVE PROTEIN (test cod e = 3513) 0.7 MG/DL C-REACTIVE [id number] 00:00:00* Test Item Value Reference Range Interpretation Comme nts C-REACTIVE PROTEIN (test cod e = 3513) 0.7 MG/DL SEDIMENTATION [id number] 00:00:00* Test Item Value Reference Range Interpretation Comme nts SEDIMENTATION RATE (test cod e = 1017) 22 MM/HOUR SEDIMENTATION [id number] 00:00:00* Test Item Value Reference Range Interpretation Comme nts SEDIMENTATION RATE (test cod e = 1017) 22 MM/HOUR URIC [id number] 00:00:00* Test Item Value Reference Range Interpretation Comme nts URIC ACID (test code = 2233) 3.6 MG/DL URIC [id number] 00:00:00* Test Item Value Reference Range Interpretation Comme nts URIC ACID (test code = 2233) 3.6 MG/DL SUKHI REFLEX AUTOIMMUNE AB [id number] 00:00:00* Test Item Value Reference Range Interpretation Comme nts ANTI-NUCLEAR ANTIBODIES (michael t code = 3506) NEGATIVE SUKHI REFLEX AUTOIMMUNE AB [id number] 00:00:00* Test Item Value Reference Range Interpretation Comme nts ANTI-NUCLEAR ANTIBODIES (michael t code = 3506) NEGATIVE COMPREHENSIVE METABOLIC [id number] 00:00:00* Test Item Value Reference Range Interpretation Comme nts GLUCOSE (test code = 2217) 101 MG/DL BUN (test code = 2208) 10 MG/DL CREATININE (test code = 2214) 0.62 MG/DL eGFR AMER. (test cod e = 37793) 123 ML/MIN/1.73 eGFR NON- AMER. (test code = 27605) 106 ML/MIN/1.73 CALC BUN/CREAT (test code = [...] code = 2219) 196 U/L COMPREHENSIVE METABOLIC [id number] 00:00:00* Test Item Value Reference Range Interpretation Comme nts GLUCOSE (test code = 2217) 101 MG/DL BUN (test code = 2208) 10 MG/DL CREATININE (test code = 2214) 0.62 MG/DL eGFR AMER. (test cod e = 00816) 123 ML/MIN/1.73 eGFR NON- AMER. (test code = 92999) 106 ML/MIN/1.73 CALC BUN/CREAT (test code = [...] (test code = 2219) 196 U/L HEMOGLOBIN [id number] 00:00:00* Test Item Value Reference Range Interpretation Comme nts HEMOGLOBIN A1c (test code = 42273) 7.0 % HEMOGLOBIN [id number] 00:00:00* Test Item Value Reference Range Interpretation Comme nts HEMOGLOBIN A1c (test code = 29643) 7.0 % HEMOGLOBIN [id number] 00:00:00* Test Item Value Reference Range Interpretation Olaf lux HEMOGLOBIN A1c (test code = 82530) 7.0 % C-REACTIVE [id number] 00:00:00* Test Item Value Reference Range Interpretation Olaf lux C-REACTIVE PROTEIN (test cod e = 3513) 0.7 MG/DL C-REACTIVE [id number] 00:00:00* Test Item Value Reference Range Interpretation Comme nts C-REACTIVE PROTEIN (test cod e = 3513) 0.7 MG/DL SEDIMENTATION [id number] 00:00:00* Test Item Value Reference Range Interpretation Commni nts SEDIMENTATION RATE (test cod e = 1017) 22 MM/HOUR SEDIMENTATION [id number] 00:00:00* Test Item Value Reference Range Interpretation Olaf nts SEDIMENTATION RATE (test cod e = 1017) 22 MM/HOUR URIC [id number] 00:00:00* Test Item Value Reference Range Interpretation Olaf lux URIC ACID (test code = 2233) 3.6 MG/DL CT ABDOMEN PELVIS W [id number] 04:56:15No acute intra-abdominal or intrapelvic process. Preliminary Report Dictated by Resident: Gurjit Perkins ?MD. Rosalio, have reviewed this study and agree with [...] reviewed this study and agree with the abovereport.[facility] [id number] 03:06:00* Test Item Value Reference Range Interpretation Comme nts APPEARANCE (test code = 9822396856) Hazy Clear A COLOR (test code = 4965768434) Loren Yellow A PH (test code = 4777234647) 4.8-8.0 SP GRAVITY (test code = 2022805035) 1.003-1.030 GLU U QUAL (test code = 2746990080) Normal Normal BLOOD (test code = 7148391101) Negative Negative KETONES (test code = 4368833706) Negative Negative PROTEIN (test code = 2887-8) 100 mg/dL Negative A UROBILIN (test code = 4303164499) 2.0 mg/dL Normal A BILIRUBIN (test code = 9652354971) Negative Negative NITRITE (test code = 6122589198) Negative Negative LEUK CHASITY (test code = 4684254315) Negative Negative RBC/HPF (test code = 7869032164) See_Comment [Automated [employer]] The system which generated this result transmitted reference range: 0 - 3 HPF. The reference range was not used to interpret this result as normal/abnormal. WBC/HPF (test code = 6211131044) See_Comment [Automated [employer]] The system which generated this result transmitted reference range: 0 - 5 HPF. The reference range was not used to interpret this result as normal/abnormal. BACTERIA (test code = 0488130426) Few Negative A MUCOUS (test code = 7521551605) Moderate Negative LPF A SQ EPITH (test code = 9009718024) HPF Lab Interpretation (test code = 64552-7) Abnormal [facility]. METABOLIC PANEL (10922)2020-07-26 02:41:00* Test Item Value Reference Range Interpretation Comme nts NA (test code = 7673213124) 139 mmol/L 135-145 K (test code = 6290053028) 3.4 mmol/L 3.5-5 L CL (test code = 5529106874) 99 mmol/L 98-108 CO2 TOTAL (test code = 5041354540) 31 mmol/L 23-31 AGAP (test code = 0404126617) 2-16 BUN (test code = 4688307303) 18 mg/dL 7-23 GLUCOSE (test code = 0282642197) 151 mg/dL 70-110 H CREATININE (test code = 4365666780) 0.59 mg/dL 0.5-1.04 TOTAL BILI (test code = 2781445199) 0.8 mg/dL 0.1-1.1 CALCIUM (test code = 7394091474) 9.5 mg/dL 8.6-10.6 T PROTEIN (test code = 5074194193) 7.8 g/dL 6.3-8.2 ALBUMIN (test code = 9242179930) 4.2 g/dL 3.5-5 ALK PHOS (test code = 7879090301) 91 U/L 34-122 ALTv (test code = 1742-6) 24 U/L 5-35 AST(SGOT) (test code = 5727935536) 25 U/L 13-40 eGFR Calculation (Non-) (test code = 5441566143) mL/min/1.73m2 eGFR Calculation () (test code = 0209690165) mL/min/1.73m2 MATTHEW (test code = MATTHEW) Association [...] imaging tests). Lab Interpretation (test code = 87767-6) [facility] 02:40:00* Test Item Value Reference Range Interpretation Comme nts LIPASE (test code = 7458516809) 149 U/L 0-220 Lab Interpretation (test cod e = 29974-3) Normal [facility] WITH [id number] 02:25:00* Test Item Value Reference Range Interpretation [...] 33.3 g/dL 31.6-35.1 RDW-SD (test code = 54984-5) 40.0 fL 39-49.9 RDW-CV (test code = 788-0) 12.4 % 12-15.5 PLT (test code = 777-3) See_Comment H [Automated message] The system which generated this result transmitted reference range: 166 - 358 10*3/?L. The reference range was not used to interpret this result as normal/abnormal. MPV (test code = 92264-8) 9.7 fL 9.5-12.9 NRBC/100 WBC (test code = 5408999536) See_Comment [Automated message] The system which generated this result transmitted reference range: 0.0 - 10.0 /100 WBCs. The reference range was not used to interpret this result as normal/abnormal. NRBC x10^3 (test code = 2009297956) <0.01 See_Comment [Automated message] The system which generated this result transmitted reference range: 10*3/?L. The reference range was not used to interpret this result as normal/abnormal. GRAN MAT (NEUT) % (test code = 770-8) 80.1 % IMM GRAN % (test code = 2026513915) 0.60 % LYMPH % (test code = 736-9) 10.7 % MONO % (test code = 5905-5) 6.3 % EOS % (test code = 713-8) 1.9 % BASO % (test code = 706-2) 0.4 % GRAN MAT x10^3(ANC) (test code = 8898264067) 14.29 10*3/uL 1.88-7.09 H IMM GRAN x10^3 (test code = 8769873780) 0.10 10*3/uL 0-0.06 H LYMPH x10^3 (test code = 731-0) 1.90 10*3/uL 1.32-3.29 MONO x10^3 (test code = 742-7) 1.12 10*3/uL 0.33-0.92 H EOS x10^3 (test code = 711-2) 0.34 10*3/uL 0.03-0.39 BASO x10^3 (test code = 704-7) 0.07 10*3/uL 0.01-0.07 Lab Interpretation (test code = 31740-6) [facility] [id number] 00:00:00* Test Item Value Reference Range Interpretation Comme nts HEMOGLOBIN A1c (test code = 06590) 10.1 % HEMOGLOBIN [id number] 00:00:00* Test Item Value Reference Range Interpretation Comme nts HEMOGLOBIN A1c (test code = 25976) 10.1 % HEMOGLOBIN [id number] 00:00:00* Test Item Value Reference Range Interpretation Comme nts HEMOGLOBIN A1c (test code = 82032) 10.1 % HEMOGLOBIN [id number] 00:00:00* Test Item Value Reference Range Interpretation Comme nts HEMOGLOBIN A1c (test code = 37793) 10.1 % HEMOGLOBIN [id number] 00:00:00* Test Item Value Reference Range Interpretation Comme nts HEMOGLOBIN A1c (test code = 40239) 10.1 % HEMOGLOBIN [id number] 00:00:00* Test Item Value Reference Range Interpretation Comme nts HEMOGLOBIN A1c (test code = 51080) 10.1 % HEMOGLOBIN [id number] 00:00:00* Test Item Value Reference Range Interpretation Comme nts HEMOGLOBIN A1c (test code = 00756) 10.1 % HEMOGLOBIN [id number] 00:00:00* Test Item Value Reference Range Interpretation Comme nts HEMOGLOBIN A1c (test code = 79398) 10.1 % HEMOGLOBIN [id number] 00:00:00* Test Item Value Reference Range Interpretation Comme nts HEMOGLOBIN A1c (test code = 37954) 10.1 % HEMOGLOBIN [id number] 00:00:00* Test Item Value Reference Range Interpretation Comme nts HEMOGLOBIN A1c (test code = 79292) 10.1 % HEMOGLOBIN [id number] 00:00:00* Test Item Value Reference Range Interpretation Comme nts HEMOGLOBIN A1c (test code = 85954) 10.1 % COMPREHENSIVE METABOLIC [id number] 00:00:00* Test Item Value Reference Range Interpretation Comme nts GLUCOSE (test code = 2217) 310 MG/DL BUN (test code = 2208) 15 MG/DL CREATININE (test code = 2214) 0.55 MG/DL eGFR AMER. (test cod e = 00152) 129 ML/MIN/1.73 eGFR NON- AMER. (test code = 74691) 111 ML/MIN/1.73 CALC BUN/CREAT (test code = [...] 20 U/L VITAMIN B 12 AND FOLIC [id number] 00:00:00* Test Item Value Reference Range Interpretation Comme nts VITAMIN B-12 (test code = 2840) 708 PG/ML FOLIC ACID (test code = 2695) 11.9 UG/L VITAMIN B 12 AND FOLIC [id number] 00:00:00* Test Item Value Reference Range Interpretation Comme nts VITAMIN B-12 (test code = 2840) 708 PG/ML FOLIC ACID (test code = 2695) 11.9 UG/L CBC W/AUTO [id number] 00:00:00* Test Item Value Reference Range Interpretation [...] code = 1015) 364 K/UL CBC W/AUTO [id number] 00:00:00* Test Item Value Reference Range Interpretation [...] code = 1015) 364 K/UL CBC W/AUTO [id number] 00:00:00* Test Item Value Reference Range Interpretation [...] (test code = 1015) 364 K/UL HEMOGLOBIN [id number] 00:00:00* Test Item Value Reference Range Interpretation Comme nts HEMOGLOBIN A1c (test code = 83018) 12.0 % HEMOGLOBIN [id number] 00:00:00* Test Item Value Reference Range Interpretation Comme nts HEMOGLOBIN A1c (test code = 41989) 12.0 % HEMOGLOBIN [id number] 00:00:00* Test Item Value Reference Range Interpretation Comme nts HEMOGLOBIN A1c (test code = 84970) 12.0 % LIPID [id number] 00:00:00* Test Item Value Reference Range Interpretation Comme nts CHOLESTEROL (test code = 2210) 202 MG/DL TRIGLYCERIDES (test code = 2232) 147 MG/DL HDL CHOLESTEROL (test code = 2220) 57 MG/DL CALC LDL CHOL (test code = 2237) 119 MG/DL RISK RATIO LDL/HDL (test cod e = 2238) 2.09 RATIO LIPID [id number] 00:00:00* Test Item Value Reference Range Interpretation Comme nts CHOLESTEROL (test code = 2210) 202 MG/DL TRIGLYCERIDES (test code = 2232) 147 MG/DL HDL CHOLESTEROL (test code = 2220) 57 MG/DL CALC LDL CHOL (test code = 2237) 119 MG/DL RISK RATIO LDL/HDL (test cod e = 2238) 2.09 RATIO COMPREHENSIVE METABOLIC [id number] 00:00:00* Test Item Value Reference Range Interpretation Comme nts GLUCOSE (test code = 2217) 310 MG/DL BUN (test code = 2208) 15 MG/DL CREATININE (test code = 2214) 0.55 MG/DL eGFR AMER. (test cod e = 98982) 129 ML/MIN/1.73 eGFR NON- AMER. (test code = 04889) 111 ML/MIN/1.73 CALC BUN/CREAT (test code = [...] code = 2219) 20 U/L COMPREHENSIVE METABOLIC [id number] 00:00:00* Test Item Value Reference Range Interpretation Comme nts GLUCOSE (test code = 2217) 310 MG/DL BUN (test code = 2208) 15 MG/DL CREATININE (test code = 2214) 0.55 MG/DL eGFR AMER. (test cod e = 77786) 129 ML/MIN/1.73 eGFR NON- AMER. (test code = 35749) 111 ML/MIN/1.73 CALC BUN/CREAT (test code = [...] 20 U/L VITAMIN B 12 AND FOLIC [id number] 00:00:00* Test Item Value Reference Range Interpretation Comme nts VITAMIN B-12 (test code = 2840) 708 PG/ML FOLIC ACID (test code = 2695) 11.9 UG/L VITAMIN B 12 AND FOLIC [id number] 00:00:00* Test Item Value Reference Range Interpretation Comme nts VITAMIN B-12 (test code = 2840) 708 PG/ML FOLIC ACID (test code = 2695) 11.9 UG/L CBC W/AUTO [id number] 00:00:00* Test Item Value Reference Range Interpretation [...] code = 1015) 364 K/UL CBC W/AUTO [id number] 00:00:00* Test Item Value Reference Range Interpretation [...] (test code = 1015) 364 K/UL HEMOGLOBIN [id number] 00:00:00* Test Item Value Reference Range Interpretation Comme nts HEMOGLOBIN A1c (test code = 48293) 12.0 % HEMOGLOBIN [id number] 00:00:00* Test Item Value Reference Range Interpretation Comme nts HEMOGLOBIN A1c (test code = 20236) 12.0 % LIPID [id number] 00:00:00* Test Item Value Reference Range Interpretation Comme nts CHOLESTEROL (test code = 2210) 202 MG/DL TRIGLYCERIDES (test code = 2232) 147 MG/DL HDL CHOLESTEROL (test code = 2220) 57 MG/DL CALC LDL CHOL (test code = 2237) 119 MG/DL RISK RATIO LDL/HDL (test cod e = 2238) 2.09 RATIO COMPREHENSIVE METABOLIC [id number] 00:00:00* Test Item Value Reference Range Interpretation Comme nts GLUCOSE (test code = 2217) 310 MG/DL BUN (test code = 2208) 15 MG/DL CREATININE (test code = 2214) 0.55 MG/DL eGFR AMER. (test cod e = 23391) 129 ML/MIN/1.73 eGFR NON- AMER. (test code = 23247) 111 ML/MIN/1.73 CALC BUN/CREAT (test code = [...] 20 U/L VITAMIN B 12 AND FOLIC [id number] 00:00:00* Test Item Value Reference Range Interpretation Comme nts VITAMIN B-12 (test code = 2840) 708 PG/ML FOLIC ACID (test code = 2695) 11.9 UG/L CBC W/AUTO [id number] 00:00:00* Test Item Value Reference Range Interpretation [...] code = 1015) 364 K/UL CBC W/AUTO [id number] 00:00:00* Test Item Value Reference Range Interpretation [...] code = 1015) 364 K/UL CBC W/AUTO [id number] 00:00:00* Test Item Value Reference Range Interpretation [...] (test code = 1015) 364 K/UL HEMOGLOBIN [id number] 00:00:00* Test Item Value Reference Range Interpretation Comme nts HEMOGLOBIN A1c (test code = 60601) 12.0 % HEMOGLOBIN [id number] 00:00:00* Test Item Value Reference Range Interpretation Comme nts HEMOGLOBIN A1c (test code = 24684) 12.0 % HEMOGLOBIN [id number] 00:00:00* Test Item Value Reference Range Interpretation Comme nts HEMOGLOBIN A1c (test code = 55230) 12.0 % LIPID [id number] 00:00:00* Test Item Value Reference Range Interpretation Comme nts CHOLESTEROL (test code = 2210) 202 MG/DL TRIGLYCERIDES (test code = 2232) 147 MG/DL HDL CHOLESTEROL (test code = 2220) 57 MG/DL CALC LDL CHOL (test code = 2237) 119 MG/DL RISK RATIO LDL/HDL (test cod e = 2238) 2.09 RATIO LIPID [id number] 00:00:00* Test Item Value Reference Range Interpretation Comme nts CHOLESTEROL (test code = 2210) 202 MG/DL TRIGLYCERIDES (test code = 2232) 147 MG/DL HDL CHOLESTEROL (test code = 2220) 57 MG/DL CALC LDL CHOL (test code = 2237) 119 MG/DL RISK RATIO LDL/HDL (test cod e = 2238) 2.09 RATIO COMPREHENSIVE METABOLIC [id number] 00:00:00* Test Item Value Reference Range Interpretation Comme nts GLUCOSE (test code = 2217) 310 MG/DL BUN (test code = 2208) 15 MG/DL CREATININE (test code = 2214) 0.55 MG/DL eGFR AMER. (test cod e = 39368) 129 ML/MIN/1.73 eGFR NON- AMER. (test code = 92278) 111 ML/MIN/1.73 CALC BUN/CREAT (test code = [...] code = 2219) 20 U/L COMPREHENSIVE METABOLIC [id number] 00:00:00* Test Item Value Reference Range Interpretation Comme nts GLUCOSE (test code = 2217) 310 MG/DL BUN (test code = 2208) 15 MG/DL CREATININE (test code = 2214) 0.55 MG/DL eGFR AMER. (test cod e = 39124) 129 ML/MIN/1.73 eGFR NON- AMER. (test code = 71018) 111 ML/MIN/1.73 CALC BUN/CREAT (test code = [...] 20 U/L VITAMIN B 12 AND FOLIC [id number] 00:00:00* Test Item Value Reference Range Interpretation Comme nts VITAMIN B-12 (test code = 2840) 708 PG/ML FOLIC ACID (test code = 2695) 11.9 UG/L VITAMIN B 12 AND FOLIC [id number] 00:00:00* Test Item Value Reference Range Interpretation Comme nts VITAMIN B-12 (test code = 2840) 708 PG/ML FOLIC ACID (test code = 2695) 11.9 UG/L CBC W/AUTO [id number] 00:00:00* Test Item Value Reference Range Interpretation [...] code = 1015) 364 K/UL CBC W/AUTO [id number] 00:00:00* Test Item Value Reference Range Interpretation [...] code = 1015) 364 K/UL CBC W/AUTO [id number] 00:00:00* Test Item Value Reference Range Interpretation [...] (test code = 1015) 364 K/UL HEMOGLOBIN [id number] 00:00:00* Test Item Value Reference Range Interpretation Comme nts HEMOGLOBIN A1c (test code = 75797) 12.0 % HEMOGLOBIN [id number] 00:00:00* Test Item Value Reference Range Interpretation Comme nts HEMOGLOBIN A1c (test code = 80269) 12.0 % HEMOGLOBIN [id number] 00:00:00* Test Item Value Reference Range Interpretation Comme nts HEMOGLOBIN A1c (test code = 78697) 12.0 % LIPID [id number] 00:00:00* Test Item Value Reference Range Interpretation Comme nts CHOLESTEROL (test code = 2210) 202 MG/DL TRIGLYCERIDES (test code = 2232) 147 MG/DL HDL CHOLESTEROL (test code = 2220) 57 MG/DL CALC LDL CHOL (test code = 2237) 119 MG/DL RISK RATIO LDL/HDL (test cod e = 2238) 2.09 RATIO LIPID [id number] 00:00:00* Test Item Value Reference Range Interpretation Comme nts CHOLESTEROL (test code = 2210) 202 MG/DL TRIGLYCERIDES (test code = 2232) 147 MG/DL HDL CHOLESTEROL (test code = 2220) 57 MG/DL CALC LDL CHOL (test code = 2237) 119 MG/DL RISK RATIO LDL/HDL (test cod e = 2238) 2.09 RATIO COMPREHENSIVE METABOLIC [id number] 00:00:00* Test Item Value Reference Range Interpretation Comme nts GLUCOSE (test code = 2217) 310 MG/DL BUN (test code = 2208) 15 MG/DL CREATININE (test code = 2214) 0.55 MG/DL eGFR AMER. (test cod e = 49587) 129 ML/MIN/1.73 eGFR NON- AMER. (test code = 43406) 111 ML/MIN/1.73 CALC BUN/CREAT (test code = [...] ALT (test code = 2219) 20 U/L SARS-CoV-2 (COVID-19) by RT-PCR (HIGH RISK)2020-04-01 00:00:00* Test Item Value Reference Range Interpretation Comme nts SARS-CoV-2 INTERPRETATION (t est code = 31916) NEGATIVE SOURCE (test code = 52985) NOT SPECIFIED SARS-CoV-2 (COVID-19) by RT-PCR (HIGH RISK)2020-04-01 00:00:00* Test Item Value Reference Range Interpretation Comme nts SARS-CoV-2 INTERPRETATION (t est code = 13954) NEGATIVE SOURCE (test code = 43634) NOT SPECIFIED SARS-CoV-2 (COVID-19) by RT-PCR (HIGH RISK)2020-04-01 00:00:00* Test Item Value Reference Range Interpretation Comme nts SARS-CoV-2 INTERPRETATION (t est code = 63954) NEGATIVE SOURCE (test code = 30581) NOT SPECIFIED SARS-CoV-2 (COVID-19) by RT-PCR (HIGH RISK)2020-04-01 00:00:00* Test Item Value Reference Range Interpretation Comme nts SARS-CoV-2 INTERPRETATION (t est code = 12890) NEGATIVE SOURCE (test code = 00894) NOT SPECIFIED SARS-CoV-2 (COVID-19) by RT-PCR (HIGH RISK)2020-04-01 00:00:00* Test Item Value Reference Range Interpretation Comme nts SARS-CoV-2 INTERPRETATION (t est code = 57354) NEGATIVE SOURCE (test code = 97887) NOT SPECIFIED SARS-CoV-2 (COVID-19) by RT-PCR (HIGH RISK)2020-04-01 00:00:00* Test Item Value Reference Range Interpretation Comme nts SARS-CoV-2 INTERPRETATION (t est code = 22134) NEGATIVE SOURCE (test code = 74104) NOT SPECIFIED SARS-CoV-2 (COVID-19) by RT-PCR (HIGH RISK)2020-04-01 00:00:00* Test Item Value Reference Range Interpretation Comme nts SARS-CoV-2 INTERPRETATION (t est code = 93827) NEGATIVE SOURCE (test code = 43298) NOT SPECIFIED PAP TEST, THINPREP, [id number] 00:00:00* Test Item Value Reference Range Interpretation Comme nts SOURCE: (test code = 8001) Cervical/Endocervical SLIDES: (test code = 8011) 1 LMP: (test code = 8021) MIRENA SPECIMEN ADEQUACY: (test code = 89532) (NOTE) INTERPRETATION: (test code = 36717) NILM/NO EPITH. ABNORMALITY;SEE BELOW OTHER COMMENTS: (test code = 8081) (NOTE) NARROW GAUGE ENGINEER: (test code = 8101) BETTY Cline(ASCP)IAC QC TECHNOLOGIST: (test code = 8111) BOYD Gabriel(ASCP),IAC LOCATION: (test code = 07899) (NOTE) CPT: (test code = 8140) (NOTE) PAP TEST, THINPREP, [id number] 00:00:00* Test Item Value Reference Range Interpretation Comme nts SOURCE: (test code = 8001) Cervical/Endocervical SLIDES: (test code = 8011) 1 LMP: (test code = 8021) MIRENA SPECIMEN ADEQUACY: (test code = 05988) (NOTE) INTERPRETATION: (test code = 28735) NILM/NO EPITH. ABNORMALITY;SEE BELOW OTHER COMMENTS: (test code = 8081) (NOTE) NARROW GAUGE ENGINEER: (test code = 8101) BETTY Cline(ASCP)IAC QC TECHNOLOGIST: (test code = 8111) BOYD Gabriel(ASCP),IAC LOCATION: (test code = 33442) (NOTE) CPT: (test code = 8140) (NOTE) PAP TEST, THINPREP, [id number] 00:00:00* Test Item Value Reference Range Interpretation Comme nts SOURCE: (test code = 8001) Cervical/Endocervical SLIDES: (test code = 8011) 1 LMP: (test code = 8021) MIRENA SPECIMEN ADEQUACY: (test code = 70686) (NOTE) INTERPRETATION: (test code = 01032) NILM/NO EPITH. ABNORMALITY;SEE BELOW OTHER COMMENTS: (test code = 8081) (NOTE) NARROW GAUGE ENGINEER: (test code = 8101) BETTY Cline(ASCP)IAC QC TECHNOLOGIST: (test code = 8111) BOYD Gabriel(ASCP),IAC LOCATION: (test code = 00072) (NOTE) CPT: (test code = 8140) (NOTE) PAP TEST, THINPREP, [id number] 00:00:00* Test Item Value Reference Range Interpretation Comme nts SOURCE: (test code = 8001) Cervical/Endocervical SLIDES: (test code = 8011) 1 LMP: (test code = 8021) MIRENA SPECIMEN ADEQUACY: (test code = 97240) (NOTE) INTERPRETATION: (test code = 45718) NILM/NO EPITH. ABNORMALITY;SEE BELOW OTHER COMMENTS: (test code = 8081) (NOTE) NARROW GAUGE ENGINEER: (test code = 8101) BETTY Cline(ASCP)IAC QC TECHNOLOGIST: (test code = 8111) BOYD Gabriel(ASCP),IAC LOCATION: (test code = 41498) (NOTE) CPT: (test code = 8140) (NOTE) PAP TEST, THINPREP, [id number] 00:00:00* Test Item Value Reference Range Interpretation Comme nts SOURCE: (test code = 8001) Cervical/Endocervical SLIDES: (test code = 8011) 1 LMP: (test code = 8021) MIRENA SPECIMEN ADEQUACY: (test code = 33006) (NOTE) INTERPRETATION: (test code = 32612) NILM/NO EPITH. ABNORMALITY;SEE BELOW OTHER COMMENTS: (test code = 8081) (NOTE) NARROW GAUGE ENGINEER: (test code = 8101) BETTY Cline(ASCP)IAC QC TECHNOLOGIST: (test code = 8111) Ney BullardSCT(ASCP),IAC LOCATION: (test code = 25152) (NOTE) CPT: (test code = 8140) (NOTE) PAP TEST, THINPREP, [id number] 00:00:00* Test Item Value Reference Range Interpretation Comme nts SOURCE: (test code = 8001) Cervical/Endocervical SLIDES: (test code = 8011) 1 LMP: (test code = 8021) MIRENA SPECIMEN ADEQUACY: (test code = 06211) (NOTE) INTERPRETATION: (test code = 20633) NILM/NO EPITH. ABNORMALITY;SEE BELOW OTHER COMMENTS: (test code = 8081) (NOTE) NARROW GAUGE ENGINEER: (test code = 8101) BETTY Cline(ASCP)IAC QC TECHNOLOGIST: (test code = 8111) BOYD Gabriel(ASCP),IAC LOCATION: (test code = 78450) (NOTE) CPT: (test code = 8140) (NOTE) PAP TEST, THINPREP, [id number] 00:00:00* Test Item Value Reference Range Interpretation Comme nts SOURCE: (test code = 8001) Cervical/Endocervical SLIDES: (test code = 8011) 1 LMP: (test code = 8021) MIRENA SPECIMEN ADEQUACY: (test code = 62454) (NOTE) INTERPRETATION: (test code = 16144) NILM/NO EPITH. ABNORMALITY;SEE BELOW OTHER COMMENTS: (test code = 8081) (NOTE) NARROW GAUGE ENGINEER: (test code = 8101) Katya Branch,CT(ASCP)IAC QC TECHNOLOGIST: (test code = 8111) Ney BullardSCT(ASCP),IAC LOCATION: (test code = 50250) (NOTE) CPT: (test code = 8140) (NOTE) HPV HIGH RISK WITH GENOTYPE, [id number] 00:00:00* Test Item Value Reference Range Interpretation Comme nts HPV HIGH RISK INTERP (test c ode = 59947) NEGATIVE HPV 16 (test code = 90863) NEGATIVE HPV 18 (test code = 64424) NEGATIVE HPV, HR, OTHER GENOTYPES (te st code = 05085) NEGATIVE HPV HIGH RISK WITH GENOTYPE, [id number] 00:00:00* Test Item Value Reference Range Interpretation Comme nts HPV HIGH RISK INTERP (test c ode = 60864) NEGATIVE HPV 16 (test code = 55184) NEGATIVE HPV 18 (test code = 92806) NEGATIVE HPV, HR, OTHER GENOTYPES (te st code = 27701) NEGATIVE HPV HIGH RISK WITH GENOTYPE, [id number] 00:00:00* Test Item Value Reference Range Interpretation Comme nts HPV HIGH RISK INTERP (test c ode = 58960) NEGATIVE HPV 16 (test code = 75228) NEGATIVE HPV 18 (test code = 86780) NEGATIVE HPV, HR, OTHER GENOTYPES (te st code = 09437) NEGATIVE HPV HIGH RISK WITH GENOTYPE, [id number] 00:00:00* Test Item Value Reference Range Interpretation Comme nts HPV HIGH RISK INTERP (test c ode = 40788) NEGATIVE HPV 16 (test code = 82750) NEGATIVE HPV 18 (test code = 48907) NEGATIVE HPV, HR, OTHER GENOTYPES (te st code = 89660) NEGATIVE HPV HIGH RISK WITH GENOTYPE, [id number] 00:00:00* Test Item Value Reference Range Interpretation Comme nts HPV HIGH RISK INTERP (test c ode = 95726) NEGATIVE HPV 16 (test code = 39841) NEGATIVE HPV 18 (test code = 55164) NEGATIVE HPV, HR, OTHER GENOTYPES (te st code = 94516) NEGATIVE HPV HIGH RISK WITH GENOTYPE, [id number] 00:00:00* Test Item Value Reference Range Interpretation Comme nts HPV HIGH RISK INTERP (test c ode = 81197) NEGATIVE HPV 16 (test code = 78045) NEGATIVE HPV 18 (test code = 81650) NEGATIVE HPV, HR, OTHER GENOTYPES (te st code = 73973) NEGATIVE HPV HIGH RISK WITH GENOTYPE, [id number] 00:00:00* Test Item Value Reference Range Interpretation Comme nts HPV HIGH RISK INTERP (test c ode = 26611) NEGATIVE HPV 16 (test code = 36168) NEGATIVE HPV 18 (test code = 33424) NEGATIVE HPV, HR, OTHER GENOTYPES (te st code = 78606) NEGATIVE GC AND CHLAMYDIA AMPLIFIED, [id number] 00:00:00* Test Item Value Reference Range Interpretation Comme nts GONORRHEA, TMA (test code = 41332) NEGATIVE CHLAMYDIA, TMA (test code = 52703) NEGATIVE GC AND CHLAMYDIA AMPLIFIED, [id number] 00:00:00* Test Item Value Reference Range Interpretation Comme nts GONORRHEA, TMA (test code = 77807) NEGATIVE CHLAMYDIA, TMA (test code = 25043) NEGATIVE GC AND CHLAMYDIA AMPLIFIED, [id number] 00:00:00* Test Item Value Reference Range Interpretation Comme nts GONORRHEA, TMA (test code = 50578) NEGATIVE CHLAMYDIA, TMA (test code = 38309) NEGATIVE GC AND CHLAMYDIA AMPLIFIED, [id number] 00:00:00* Test Item Value Reference Range Interpretation Comme nts GONORRHEA, TMA (test code = 94073) NEGATIVE CHLAMYDIA, TMA (test code = 26664) NEGATIVE GC AND CHLAMYDIA AMPLIFIED, [id number] 00:00:00* Test Item Value Reference Range Interpretation Comme nts GONORRHEA, TMA (test code = 49484) NEGATIVE CHLAMYDIA, TMA (test code = 78411) NEGATIVE GC AND CHLAMYDIA AMPLIFIED, [id number] 00:00:00* Test Item Value Reference Range Interpretation Comme nts GONORRHEA, TMA (test code = 80093) NEGATIVE CHLAMYDIA, TMA (test code = 37482) NEGATIVE GC AND CHLAMYDIA AMPLIFIED, [id number] 00:00:00* Test Item Value Reference Range Interpretation Comme nts GONORRHEA, TMA (test code = 69658) NEGATIVE CHLAMYDIA, TMA (test code = 11601) NEGATIVE HEMOGLOBIN [id number] 00:00:00* Test Item Value Reference Range Interpretation Comme nts HEMOGLOBIN A1c (test code = 10362) 11.9 % HEMOGLOBIN [id number] 00:00:00* Test Item Value Reference Range Interpretation Comme nts HEMOGLOBIN A1c (test code = 57966) 11.9 % HEMOGLOBIN [id number] 00:00:00* Test Item Value Reference Range Interpretation Comme nts HEMOGLOBIN A1c (test code = 08986) 11.9 % HEMOGLOBIN [id number] 00:00:00* Test Item Value Reference Range Interpretation Comme nts HEMOGLOBIN A1c (test code = 23033) 11.9 % HEMOGLOBIN [id number] 00:00:00* Test Item Value Reference Range Interpretation Comme nts HEMOGLOBIN A1c (test code = 55301) 11.9 % HEMOGLOBIN [id number] 00:00:00* Test Item Value Reference Range Interpretation Comme nts HEMOGLOBIN A1c (test code = 32403) 11.9 % HEMOGLOBIN [id number] 00:00:00* Test Item Value Reference Range Interpretation Comme nts HEMOGLOBIN A1c (test code = 27555) 11.9 % HEMOGLOBIN [id number] 00:00:00* Test Item Value Reference Range Interpretation Comme nts HEMOGLOBIN A1c (test code = 43168) 11.9 % HEMOGLOBIN [id number] 00:00:00* Test Item Value Reference Range Interpretation Comme nts HEMOGLOBIN A1c (test code = 52633) 11.9 % HEMOGLOBIN [id number] 00:00:00* Test Item Value Reference Range Interpretation Comme nts HEMOGLOBIN A1c (test code = 34893) 11.9 % HEMOGLOBIN [id number] 00:00:00* Test Item Value Reference Range Interpretation Comme nts HEMOGLOBIN A1c (test code = 19882) 11.9 % COMPREHENSIVE METABOLIC [id number] 00:00:00* Test Item Value Reference Range Interpretation Comme nts GLUCOSE (test code = 2217) 202 MG/DL BUN (test code = 2208) 9 MG/DL CREATININE (test code = 2214) 0.50 MG/DL eGFR AMER. (test cod e = 56534) 135 ML/MIN/1.73 eGFR NON- AMER. (test code = 87472) 116 ML/MIN/1.73 CALC BUN/CREAT (test code = [...] code = 2219) 20 U/L COMPREHENSIVE METABOLIC [id number] 00:00:00* Test Item Value Reference Range Interpretation Comme nts GLUCOSE (test code = 2217) 202 MG/DL BUN (test code = 2208) 9 MG/DL CREATININE (test code = 2214) 0.50 MG/DL eGFR AMER. (test cod e = 34235) 135 ML/MIN/1.73 eGFR NON- AMER. (test code = 27551) 116 ML/MIN/1.73 CALC BUN/CREAT (test code = [...] code = 2219) 20 U/L COMPREHENSIVE METABOLIC [id number] 00:00:00* Test Item Value Reference Range Interpretation Comme nts GLUCOSE (test code = 2217) 202 MG/DL BUN (test code = 2208) 9 MG/DL CREATININE (test code = 2214) 0.50 MG/DL eGFR AMER. (test cod e = 10438) 135 ML/MIN/1.73 eGFR NON- AMER. (test code = 61654) 116 ML/MIN/1.73 CALC BUN/CREAT (test code = [...] code = 2219) 20 U/L COMPREHENSIVE METABOLIC [id number] 00:00:00* Test Item Value Reference Range Interpretation Comme nts GLUCOSE (test code = 2217) 202 MG/DL BUN (test code = 2208) 9 MG/DL CREATININE (test code = 2214) 0.50 MG/DL eGFR AMER. (test cod e = 59445) 135 ML/MIN/1.73 eGFR NON- AMER. (test code = 73359) 116 ML/MIN/1.73 CALC BUN/CREAT (test code = [...] code = 2219) 20 U/L COMPREHENSIVE METABOLIC [id number] 00:00:00* Test Item Value Reference Range Interpretation Comme nts GLUCOSE (test code = 2217) 202 MG/DL BUN (test code = 2208) 9 MG/DL CREATININE (test code = 2214) 0.50 MG/DL eGFR AMER. (test cod e = 24093) 135 ML/MIN/1.73 eGFR NON- AMER. (test code = 64002) 116 ML/MIN/1.73 CALC BUN/CREAT (test code = [...] code = 2219) 20 U/L COMPREHENSIVE METABOLIC [id number] 00:00:00* Test Item Value Reference Range Interpretation Comme nts GLUCOSE (test code = 2217) 202 MG/DL BUN (test code = 2208) 9 MG/DL CREATININE (test code = 2214) 0.50 MG/DL eGFR AMER. (test cod e = 52517) 135 ML/MIN/1.73 eGFR NON- AMER. (test code = 71124) 116 ML/MIN/1.73 CALC BUN/CREAT (test code = [...] code = 2219) 20 U/L COMPREHENSIVE METABOLIC [id number] 00:00:00* Test Item Value Reference Range Interpretation Comme nts GLUCOSE (test code = 2217) 202 MG/DL BUN (test code = 2208) 9 MG/DL CREATININE (test code = 2214) 0.50 MG/DL eGFR AMER. (test cod e = 23458) 135 ML/MIN/1.73 eGFR NON- AMER. (test code = 52148) 116 ML/MIN/1.73 CALC BUN/CREAT (test code = [...] (test code = 2219) 20 U/L HEMOGLOBIN [id number] 00:00:00* Test Item Value Reference Range Interpretation Comme nts HEMOGLOBIN A1c (test code = 58423) 11.2 % HEMOGLOBIN [id number] 00:00:00* Test Item Value Reference Range Interpretation Comme nts HEMOGLOBIN A1c (test code = 30093) 11.2 % HEMOGLOBIN [id number] 00:00:00* Test Item Value Reference Range Interpretation Comme nts HEMOGLOBIN A1c (test code = 67707) 11.2 % HEMOGLOBIN [id number] 00:00:00* Test Item Value Reference Range Interpretation Comme nts HEMOGLOBIN A1c (test code = 01495) 11.2 % HEMOGLOBIN [id number] 00:00:00* Test Item Value Reference Range Interpretation Comme nts HEMOGLOBIN A1c (test code = 84667) 11.2 % HEMOGLOBIN [id number] 00:00:00* Test Item Value Reference Range Interpretation Comme nts HEMOGLOBIN A1c (test code = 40073) 11.2 % HEMOGLOBIN [id number] 00:00:00* Test Item Value Reference Range Interpretation Comme nts HEMOGLOBIN A1c (test code = 67903) 11.2 % HEMOGLOBIN [id number] 00:00:00* Test Item Value Reference Range Interpretation Comme nts HEMOGLOBIN A1c (test code = 76731) 11.2 % HEMOGLOBIN [id number] 00:00:00* Test Item Value Reference Range Interpretation Comme nts HEMOGLOBIN A1c (test code = 70957) 11.2 % HEMOGLOBIN [id number] 00:00:00* Test Item Value Reference Range Interpretation Comme nts HEMOGLOBIN A1c (test code = 10715) 11.2 % HEMOGLOBIN [id number] 00:00:00* Test Item Value Reference Range Interpretation Comme nts HEMOGLOBIN A1c (test code = 93374) 11.2 % PAP TEST, THINPREP, [id number] 00:00:00* Test Item Value Reference Range Interpretation Comme nts SOURCE: (test code = 8001) Cervical/Endocervical SLIDES: (test code = 8011) 1 LMP: (test code = 8021) SPECIMEN ADEQUACY: (test code = 80563) (NOTE) INTERPRETATION: (test code = 34923) NO EPITHELIAL ABNORMALITY SEE BELOW OTHER COMMENTS: (test code = 8081) (NOTE) NARROW GAUGE ENGINEER: (test code = 8101) BETTY Wilson(ASCP)IAC QC TECHNOLOGIST: (test code = 8111) BOYD Gabriel(ASCP),IAC LOCATION: (test code = 26349) (NOTE) CPT: (test code = 8140) (NOTE) PAP TEST, THINPREP, [id number] 00:00:00* Test Item Value Reference Range Interpretation Comme nts SOURCE: (test code = 8001) Cervical/Endocervical SLIDES: (test code = 8011) 1 LMP: (test code = 8021) SPECIMEN ADEQUACY: (test code = 08007) (NOTE) INTERPRETATION: (test code = 57188) NO EPITHELIAL ABNORMALITY SEE BELOW OTHER COMMENTS: (test code = 8081) (NOTE) NARROW GAUGE ENGINEER: (test code = 8101) BETTY Wilson(ASCP)IAC QC TECHNOLOGIST: (test code = 8111) BOYD Gabriel(ASCP),IAC LOCATION: (test code = 82274) (NOTE) CPT: (test code = 8140) (NOTE) PAP TEST, THINPREP, [id number] 00:00:00* Test Item Value Reference Range Interpretation Comme nts SOURCE: (test code = 8001) Cervical/Endocervical SLIDES: (test code = 8011) 1 LMP: (test code = 8021) SPECIMEN ADEQUACY: (test code = 45294) (NOTE) INTERPRETATION: (test code = 34577) NO EPITHELIAL ABNORMALITY SEE BELOW OTHER COMMENTS: (test code = 8081) (NOTE) NARROW GAUGE ENGINEER: (test code = 8101) BETTY Wilson(ASCP)IAC QC TECHNOLOGIST: (test code = 8111) BOYD Gabriel(ASCP),IAC LOCATION: (test code = 50588) (NOTE) CPT: (test code = 8140) (NOTE) PAP TEST, THINPREP, [id number] 00:00:00* Test Item Value Reference Range Interpretation Comme nts SOURCE: (test code = 8001) Cervical/Endocervical SLIDES: (test code = 8011) 1 LMP: (test code = 8021) SPECIMEN ADEQUACY: (test code = 38006) (NOTE) INTERPRETATION: (test code = 54818) NO EPITHELIAL ABNORMALITY SEE BELOW OTHER COMMENTS: (test code = 8081) (NOTE) NARROW GAUGE ENGINEER: (test code = 8101) BETTY Wilson(ASCP)IAC QC TECHNOLOGIST: (test code = 8111) BOYD Gabriel(ASCP),IAC LOCATION: (test code = 87326) (NOTE) CPT: (test code = 8140) (NOTE) PAP TEST, THINPREP, [id number] 00:00:00* Test Item Value Reference Range Interpretation Comme nts SOURCE: (test code = 8001) Cervical/Endocervical SLIDES: (test code = 8011) 1 LMP: (test code = 8021) SPECIMEN ADEQUACY: (test code = 40175) (NOTE) INTERPRETATION: (test code = 91278) NO EPITHELIAL ABNORMALITY SEE BELOW OTHER COMMENTS: (test code = 8081) (NOTE) NARROW GAUGE ENGINEER: (test code = 8101) BETTY Wilson(ASCP)IAC QC TECHNOLOGIST: (test code = 8111) BOYD Gabriel(ASCP),IAC LOCATION: (test code = 20594) (NOTE) CPT: (test code = 8140) (NOTE) PAP TEST, THINPREP, [id number] 00:00:00* Test Item Value Reference Range Interpretation Comme nts SOURCE: (test code = 8001) Cervical/Endocervical SLIDES: (test code = 8011) 1 LMP: (test code = 8021) SPECIMEN ADEQUACY: (test code = 59030) (NOTE) INTERPRETATION: (test code = 61133) NO EPITHELIAL ABNORMALITY SEE BELOW OTHER COMMENTS: (test code = 8081) (NOTE) NARROW GAUGE ENGINEER: (test code = 8101) BETTY Wilson(ASCP)IAC QC TECHNOLOGIST: (test code = 8111) Ney BullardSCT(ASCP),IAC LOCATION: (test code = 93336) (NOTE) CPT: (test code = 8140) (NOTE) PAP TEST, THINPREP, [id number] 00:00:00* Test Item Value Reference Range Interpretation Comme nts SOURCE: (test code = 8001) Cervical/Endocervical SLIDES: (test code = 8011) 1 LMP: (test code = 8021) SPECIMEN ADEQUACY: (test code = 95784) (NOTE) INTERPRETATION: (test code = 56881) NO EPITHELIAL ABNORMALITY SEE BELOW OTHER COMMENTS: (test code = 8081) (NOTE) NARROW GAUGE ENGINEER: (test code = 8101) BETTY Wilson(ASCP)IAC QC TECHNOLOGIST: (test code = 8111) Ney BullardSCT(ASCP),IAC LOCATION: (test code = 74009) (NOTE) CPT: (test code = 8140) (NOTE) HPV HIGH RISK WITH GENOTYPE, [id number] 00:00:00* Test Item Value Reference Range Interpretation Comme nts HPV HIGH RISK INTERP (test c ode = 20354) POSITIVE HPV 16 (test code = 96604) NEGATIVE HPV 18 (test code = 67487) NEGATIVE HPV, HR, OTHER GENOTYPES (te st code = 57493) POSITIVE HPV HIGH RISK WITH GENOTYPE, [id number] 00:00:00* Test Item Value Reference Range Interpretation Comme nts HPV HIGH RISK INTERP (test c ode = 17704) POSITIVE HPV 16 (test code = 30182) NEGATIVE HPV 18 (test code = 91297) NEGATIVE HPV, HR, OTHER GENOTYPES (te st code = 56618) POSITIVE HPV HIGH RISK WITH GENOTYPE, [id number] 00:00:00* Test Item Value Reference Range Interpretation Comme nts HPV HIGH RISK INTERP (test c ode = 81171) POSITIVE HPV 16 (test code = 44471) NEGATIVE HPV 18 (test code = 65963) NEGATIVE HPV, HR, OTHER GENOTYPES (te st code = 88704) POSITIVE HPV HIGH RISK WITH GENOTYPE, [id number] 00:00:00* Test Item Value Reference Range Interpretation Comme nts HPV HIGH RISK INTERP (test c ode = 50244) POSITIVE HPV 16 (test code = 34860) NEGATIVE HPV 18 (test code = 68143) NEGATIVE HPV, HR, OTHER GENOTYPES (te st code = 53073) POSITIVE HPV HIGH RISK WITH GENOTYPE, [id number] 00:00:00* Test Item Value Reference Range Interpretation Comme [facility] HPV HIGH RISK INTERP (test c ode = 98812) POSITIVE HPV 16 (test code = 70477) NEGATIVE HPV 18 (test code = 37306) NEGATIVE HPV, HR, OTHER GENOTYPES (te st code = 42403) POSITIVE HPV HIGH RISK WITH GENOTYPE, [id number] 00:00:00* Test Item Value Reference Range Interpretation Comme [facility] HPV HIGH RISK INTERP (test c ode = 83027) POSITIVE HPV 16 (test code = 44280) NEGATIVE HPV 18 (test code = 28124) NEGATIVE HPV, HR, OTHER GENOTYPES (te st code = 46290) POSITIVE HPV HIGH RISK WITH GENOTYPE, [id number] 00:00:00* Test Item Value Reference Range Interpretation Comme [facility] HPV HIGH RISK INTERP (test c ode = 68395) POSITIVE HPV 16 (test code = 72879) NEGATIVE HPV 18 (test code = 65528) NEGATIVE HPV, HR, OTHER GENOTYPES (te st code = 10558) POSITIVE HEMOGLOBIN [id number] 00:00:00* Test Item Value Reference Range Interpretation Comme [facility] HEMOGLOBIN A1c (test code = 84802) 9.5 % THYROID II PROFILE (T3U, T4, T7, TSH)[id number] 00:00:00* Test Item Value Reference Range Interpretation Comme [facility] T3 UPTAKE (test code = 2817) 27.5 % T4 (THYROXINE) (test code = 2819) 8.7 UG/DL CALCULATED T7 (FTI) (test co de = 2820) 2.39 TSH (test code = 2821) 2.3 UIU/ML THYROID II PROFILE (T3U, T4, T7, TSH)2016-04-13 00:00:00* Test Item Value Reference Range Interpretation Comme [facility] T3 UPTAKE (test code = 2817) 27.5 % T4 (THYROXINE) (test code = 2819) 8.7 UG/DL CALCULATED T7 (FTI) (test co de = 2820) 2.39 TSH (test code = 2821) 2.3 UIU/ML COMPREHENSIVE METABOLIC [id number] 00:00:00* Test Item Value Reference Range Interpretation Comme nts GLUCOSE (test code = 2217) 252 MG/DL BUN (test code = 2208) 13 MG/DL CREATININE (test code = 2214) 0.57 MG/DL eGFR AMER. (test cod e = 81522) 131 ML/MIN/1.73 eGFR NON- AMER. (test code = 67379) 113 ML/MIN/1.73 CALC BUN/CREAT (test code = [...] code = 2219) 16 U/L COMPREHENSIVE METABOLIC [id number] 00:00:00* Test Item Value Reference Range Interpretation Comme nts GLUCOSE (test code = 2217) 252 MG/DL BUN (test code = 2208) 13 MG/DL CREATININE (test code = 2214) 0.57 MG/DL eGFR AMER. (test cod e = 93100) 131 ML/MIN/1.73 eGFR NON- AMER. (test code = 39460) 113 ML/MIN/1.73 CALC BUN/CREAT (test code = [...] (test code = 2219) 16 U/L LIPID [id number] 00:00:00* Test Item Value Reference Range Interpretation Comme nts CHOLESTEROL (test code = 2210) 167 MG/DL TRIGLYCERIDES (test code = 2232) 118 MG/DL HDL CHOLESTEROL (test code = 2220) 57 MG/DL CALC LDL CHOL (test code = 2237) 86 MG/DL RISK RATIO LDL/HDL (test cod e = 2238) 1.52 RATIO LIPID [id number] 00:00:00* Test Item Value Reference Range Interpretation Comme nts CHOLESTEROL (test code = 2210) 167 MG/DL TRIGLYCERIDES (test code = 2232) 118 MG/DL HDL CHOLESTEROL (test code = 2220) 57 MG/DL CALC LDL CHOL (test code = 2237) 86 MG/DL RISK RATIO LDL/HDL (test cod e = 2238) 1.52 RATIO CBC W/AUTO [id number] 00:00:00* Test Item Value Reference Range Interpretation [...] code = 1015) 360 K/UL CBC W/AUTO [id number] 00:00:00* Test Item Value Reference Range Interpretation [...] code = 1015) 360 K/UL CBC W/AUTO [id number] 00:00:00* Test Item Value Reference Range Interpretation [...] (test code = 1015) 360 K/UL HEMOGLOBIN [id number] 00:00:00* Test Item Value Reference Range Interpretation Comme nts HEMOGLOBIN A1c (test code = 05307) 9.5 % HEMOGLOBIN [id number] 00:00:00* Test Item Value Reference Range Interpretation Comme nts HEMOGLOBIN A1c (test code = 74303) 9.5 % HEMOGLOBIN [id number] 00:00:00* Test Item Value Reference Range Interpretation Comme nts HEMOGLOBIN A1c (test code = 61727) 9.5 % THYROID II PROFILE (T3U, T4, [...] code = 2821) 2.3 UIU/ML COMPREHENSIVE METABOLIC [id number] 00:00:00* Test Item Value Reference Range Interpretation Comme nts GLUCOSE (test code = 2217) 252 MG/DL BUN (test code = 2208) 13 MG/DL CREATININE (test code = 2214) 0.57 MG/DL eGFR AMER. (test cod e = 40930) 131 ML/MIN/1.73 eGFR NON- AMER. (test code = 98013) 113 ML/MIN/1.73 CALC BUN/CREAT (test code = [...] (test code = 2219) 16 U/L LIPID [id number] 00:00:00* Test Item Value Reference Range Interpretation Comme nts CHOLESTEROL (test code = 2210) 167 MG/DL TRIGLYCERIDES (test code = 2232) 118 MG/DL HDL CHOLESTEROL (test code = 2220) 57 MG/DL CALC LDL CHOL (test code = 2237) 86 MG/DL RISK RATIO LDL/HDL (test cod e = 2238) 1.52 RATIO CBC W/AUTO [id number] 00:00:00* Test Item Value Reference Range Interpretation [...] code = 1015) 360 K/UL CBC W/AUTO [id number] 00:00:00* Test Item Value Reference Range Interpretation [...] (test code = 1015) 360 K/UL HEMOGLOBIN [id number] 00:00:00* Test Item Value Reference Range Interpretation Comme nts HEMOGLOBIN A1c (test code = 80895) 9.5 % HEMOGLOBIN [id number] 00:00:00* Test Item Value Reference Range Interpretation Comme nts HEMOGLOBIN A1c (test code = 10914) 9.5 % THYROID II PROFILE (T3U, T4, T7, TSH)2016-04-13 00:00:00* Test Item Value Reference Range Interpretation Comme nts T3 UPTAKE (test code = 2817) 27.5 % T4 (THYROXINE) (test code = 2819) 8.7 UG/DL CALCULATED T7 (FTI) (test co de = 2820) 2.39 TSH (test code = 2821) 2.3 UIU/ML COMPREHENSIVE METABOLIC [id number] 00:00:00* Test Item Value Reference Range Interpretation Comme nts GLUCOSE (test code = 2217) 252 MG/DL BUN (test code = 2208) 13 MG/DL CREATININE (test code = 2214) 0.57 MG/DL eGFR AMER. (test cod e = 39974) 131 ML/MIN/1.73 eGFR NON- AMER. (test code = 68751) 113 ML/MIN/1.73 CALC BUN/CREAT (test code = [...] code = 2219) 16 U/L COMPREHENSIVE METABOLIC [id number] 00:00:00* Test Item Value Reference Range Interpretation Comme nts GLUCOSE (test code = 2217) 252 MG/DL BUN (test code = 2208) 13 MG/DL CREATININE (test code = 2214) 0.57 MG/DL eGFR AMER. (test cod e = 60704) 131 ML/MIN/1.73 eGFR NON- AMER. (test code = 67946) 113 ML/MIN/1.73 CALC BUN/CREAT (test code = [...] (test code = 2219) 16 U/L LIPID [id number] 00:00:00* Test Item Value Reference Range Interpretation Comme nts CHOLESTEROL (test code = 2210) 167 MG/DL TRIGLYCERIDES (test code = 2232) 118 MG/DL HDL CHOLESTEROL (test code = 2220) 57 MG/DL CALC LDL CHOL (test code = 2237) 86 MG/DL RISK RATIO LDL/HDL (test cod e = 2238) 1.52 RATIO LIPID [id number] 00:00:00* Test Item Value Reference Range Interpretation Comme nts CHOLESTEROL (test code = 2210) 167 MG/DL TRIGLYCERIDES (test code = 2232) 118 MG/DL HDL CHOLESTEROL (test code = 2220) 57 MG/DL CALC LDL CHOL (test code = 2237) 86 MG/DL RISK RATIO LDL/HDL (test cod e = 2238) 1.52 RATIO CBC W/AUTO [id number] 00:00:00* Test Item Value Reference Range Interpretation [...] code = 1015) 360 K/UL CBC W/AUTO [id number] 00:00:00* Test Item Value Reference Range Interpretation [...] code = 1015) 360 K/UL CBC W/AUTO [id number] 00:00:00* Test Item Value Reference Range Interpretation [...] (test code = 1015) 360 K/UL HEMOGLOBIN [id number] 00:00:00* Test Item Value Reference Range Interpretation Comme nts HEMOGLOBIN A1c (test code = 44495) 9.5 % HEMOGLOBIN [id number] 00:00:00* Test Item Value Reference Range Interpretation Comme nts HEMOGLOBIN A1c (test code = 34147) 9.5 % HEMOGLOBIN [id number] 00:00:00* Test Item Value Reference Range Interpretation Comme nts HEMOGLOBIN A1c (test code = 03710) 9.5 % THYROID II PROFILE (T3U, T4, [...] code = 2821) 2.3 UIU/ML COMPREHENSIVE METABOLIC [id number] 00:00:00* Test Item Value Reference Range Interpretation Comme nts GLUCOSE (test code = 2217) 252 MG/DL BUN (test code = 2208) 13 MG/DL CREATININE (test code = 2214) 0.57 MG/DL eGFR AMER. (test cod e = 78576) 131 ML/MIN/1.73 eGFR NON- AMER. (test code = 06068) 113 ML/MIN/1.73 CALC BUN/CREAT (test code = [...] code = 2219) 16 U/L COMPREHENSIVE METABOLIC [id number] 00:00:00* Test Item Value Reference Range Interpretation Comme nts GLUCOSE (test code = 2217) 252 MG/DL BUN (test code = 2208) 13 MG/DL CREATININE (test code = 2214) 0.57 MG/DL eGFR AMER. (test cod e = 96227) 131 ML/MIN/1.73 eGFR NON- AMER. (test code = 03768) 113 ML/MIN/1.73 CALC BUN/CREAT (test code = [...] (test code = 2219) 16 U/L LIPID [id number] 00:00:00* Test Item Value Reference Range Interpretation Comme nts CHOLESTEROL (test code = 2210) 167 MG/DL TRIGLYCERIDES (test code = 2232) 118 MG/DL HDL CHOLESTEROL (test code = 2220) 57 MG/DL CALC LDL CHOL (test code = 2237) 86 MG/DL RISK RATIO LDL/HDL (test cod e = 2238) 1.52 RATIO LIPID [id number] 00:00:00* Test Item Value Reference Range Interpretation Comme nts CHOLESTEROL (test code = 2210) 167 MG/DL TRIGLYCERIDES (test code = 2232) 118 MG/DL HDL CHOLESTEROL (test code = 2220) 57 MG/DL CALC LDL CHOL (test code = 2237) 86 MG/DL RISK RATIO LDL/HDL (test cod e = 2238) 1.52 RATIO CBC W/AUTO [id number] 00:00:00* Test Item Value Reference Range Interpretation [...] code = 1015) 360 K/UL CBC W/AUTO [id number] 00:00:00* Test Item Value Reference Range Interpretation [...] code = 1015) 360 K/UL CBC W/AUTO [id number] 00:00:00* Test Item Value Reference Range Interpretation [...] (test code = 1015) 360 K/UL HEMOGLOBIN [id number] 00:00:00* Test Item Value Reference Range Interpretation Comme nts HEMOGLOBIN A1c (test code = 32424) 9.5 % HEMOGLOBIN [id number] 00:00:00* Test Item Value Reference Range Interpretation Comme nts HEMOGLOBIN A1c (test code = 05474) 9.5 % COMPREHENSIVE METABOLIC [id number] 00:00:00* Test Item Value Reference Range Interpretation Comme nts GLUCOSE (test code = 2217) 195 MG/DL BUN (test code = 2208) 14 MG/DL CREATININE (test code = 2214) 0.55 MG/DL eGFR AMER. (test cod e = 41183) 132 ML/MIN/1.73 eGFR NON- AMER. (test code = 68156) 114 ML/MIN/1.73 CALCULATED BUN/CREAT (test code = [...] (test code = 2219) 21 U/L HEMOGLOBIN [id number] 00:00:00* Test Item Value Reference Range Interpretation Comme nts HEMOGLOBIN A1c (test code = 86273) 9.9 % HEMOGLOBIN [id number] 00:00:00* Test Item Value Reference Range Interpretation Comme nts HEMOGLOBIN A1c (test code = 83771) 9.9 % HEMOGLOBIN [id number] 00:00:00* Test Item Value Reference Range Interpretation Comme nts HEMOGLOBIN A1c (test code = 51155) 9.9 % CBC W/AUTO [id number] 00:00:00* Test Item Value Reference Range Interpretation [...] code = 1015) 352 K/UL CBC W/AUTO [id number] 00:00:00* Test Item Value Reference Range Interpretation [...] code = 1015) 352 K/UL CBC W/AUTO [id number] 00:00:00* Test Item Value Reference Range Interpretation [...] (test code = 2821) 1.3 UIU/ML LIPID [id number] 00:00:00* Test Item Value Reference Range Interpretation Comme nts CHOLESTEROL (test code = 2210) 167 MG/DL TRIGLYCERIDES (test code = 2232) 113 MG/DL HDL CHOLESTEROL (test code = 2220) 53 MG/DL CALCULATED LDL CHOL (test co de = 2237) 91 MG/DL RISK RATIO LDL/HDL (test cod e = 2238) 1.72 RATIO LIPID [id number] 00:00:00* Test Item Value Reference Range Interpretation Comme nts CHOLESTEROL (test code = 2210) 167 MG/DL TRIGLYCERIDES (test code = 2232) 113 MG/DL HDL CHOLESTEROL (test code = 2220) 53 MG/DL CALCULATED LDL CHOL (test co de = 2237) 91 MG/DL RISK RATIO LDL/HDL (test cod e = 2238) 1.72 RATIO COMPREHENSIVE METABOLIC [id number] 00:00:00* Test Item Value Reference Range Interpretation Comme nts GLUCOSE (test code = 2217) 195 MG/DL BUN (test code = 2208) 14 MG/DL CREATININE (test code = 2214) 0.55 MG/DL eGFR AMER. (test cod e = 88951) 132 ML/MIN/1.73 eGFR NON- AMER. (test code = 64543) 114 ML/MIN/1.73 CALCULATED BUN/CREAT (test code = [...] code = 2219) 21 U/L COMPREHENSIVE METABOLIC [id number] 00:00:00* Test Item Value Reference Range Interpretation Comme nts GLUCOSE (test code = 2217) 195 MG/DL BUN (test code = 2208) 14 MG/DL CREATININE (test code = 2214) 0.55 MG/DL eGFR AMER. (test cod e = 24956) 132 ML/MIN/1.73 eGFR NON- AMER. (test code = 94519) 114 ML/MIN/1.73 CALCULATED BUN/CREAT (test code = [...] (test code = 2219) 21 U/L HEMOGLOBIN [id number] 00:00:00* Test Item Value Reference Range Interpretation Comme nts HEMOGLOBIN A1c (test code = 59711) 9.9 % HEMOGLOBIN [id number] 00:00:00* Test Item Value Reference Range Interpretation Comme nts HEMOGLOBIN A1c (test code = 12271) 9.9 % HEMOGLOBIN [id number] 00:00:00* Test Item Value Reference Range Interpretation Comme nts HEMOGLOBIN A1c (test code = 28526) 9.9 % CBC W/AUTO [id number] 00:00:00* Test Item Value Reference Range Interpretation [...] code = 1015) 352 K/UL CBC W/AUTO [id number] 00:00:00* Test Item Value Reference Range Interpretation [...] (test code = 2821) 1.3 UIU/ML LIPID [id number] 00:00:00* Test Item Value Reference Range Interpretation Comme nts CHOLESTEROL (test code = 2210) 167 MG/DL TRIGLYCERIDES (test code = 2232) 113 MG/DL HDL CHOLESTEROL (test code = 2220) 53 MG/DL CALCULATED LDL CHOL (test co de = 2237) 91 MG/DL RISK RATIO LDL/HDL (test cod e = 2238) 1.72 RATIO COMPREHENSIVE METABOLIC [id number] 00:00:00* Test Item Value Reference Range Interpretation Comme nts GLUCOSE (test code = 2217) 195 MG/DL BUN (test code = 2208) 14 MG/DL CREATININE (test code = 2214) 0.55 MG/DL eGFR AMER. (test cod e = 03348) 132 ML/MIN/1.73 eGFR NON- AMER. (test code = 02973) 114 ML/MIN/1.73 CALCULATED BUN/CREAT (test code = [...] (test code = 2219) 21 U/L HEMOGLOBIN [id number] 00:00:00* Test Item Value Reference Range Interpretation Comme nts HEMOGLOBIN A1c (test code = 55724) 9.9 % HEMOGLOBIN [id number] 00:00:00* Test Item Value Reference Range Interpretation Comme nts HEMOGLOBIN A1c (test code = 80935) 9.9 % CBC W/AUTO [id number] 00:00:00* Test Item Value Reference Range Interpretation [...] code = 1015) 352 K/UL CBC W/AUTO [id number] 00:00:00* Test Item Value Reference Range Interpretation [...] code = 1015) 352 K/UL CBC W/AUTO [id number] 00:00:00* Test Item Value Reference Range Interpretation [...] (test code = 2821) 1.3 UIU/ML LIPID [id number] 00:00:00* Test Item Value Reference Range Interpretation Comme nts CHOLESTEROL (test code = 2210) 167 MG/DL TRIGLYCERIDES (test code = 2232) 113 MG/DL HDL CHOLESTEROL (test code = 2220) 53 MG/DL CALCULATED LDL CHOL (test co de = 2237) 91 MG/DL RISK RATIO LDL/HDL (test cod e = 2238) 1.72 RATIO LIPID [id number] 00:00:00* Test Item Value Reference Range Interpretation Comme nts CHOLESTEROL (test code = 2210) 167 MG/DL TRIGLYCERIDES (test code = 2232) 113 MG/DL HDL CHOLESTEROL (test code = 2220) 53 MG/DL CALCULATED LDL CHOL (test co de = 2237) 91 MG/DL RISK RATIO LDL/HDL (test cod e = 2238) 1.72 RATIO COMPREHENSIVE METABOLIC [id number] 00:00:00* Test Item Value Reference Range Interpretation Comme nts GLUCOSE (test code = 2217) 195 MG/DL BUN (test code = 2208) 14 MG/DL CREATININE (test code = 2214) 0.55 MG/DL eGFR AMER. (test cod e = 77612) 132 ML/MIN/1.73 eGFR NON- AMER. (test code = 51642) 114 ML/MIN/1.73 CALCULATED BUN/CREAT (test code = [...] code = 2219) 21 U/L COMPREHENSIVE METABOLIC [id number] 00:00:00* Test Item Value Reference Range Interpretation Comme nts GLUCOSE (test code = 2217) 195 MG/DL BUN (test code = 2208) 14 MG/DL CREATININE (test code = 2214) 0.55 MG/DL eGFR AMER. (test cod e = 09251) 132 ML/MIN/1.73 eGFR NON- AMER. (test code = 53400) 114 ML/MIN/1.73 CALCULATED BUN/CREAT (test code = [...] (test code = 2219) 21 U/L HEMOGLOBIN [id number] 00:00:00* Test Item Value Reference Range Interpretation Comme nts HEMOGLOBIN A1c (test code = 85584) 9.9 % HEMOGLOBIN [id number] 00:00:00* Test Item Value Reference Range Interpretation Comme nts HEMOGLOBIN A1c (test code = 33814) 9.9 % HEMOGLOBIN [id number] 00:00:00* Test Item Value Reference Range Interpretation Comme nts HEMOGLOBIN A1c (test code = 20634) 9.9 % CBC W/AUTO [id number] 00:00:00* Test Item Value Reference Range Interpretation [...] code = 1015) 352 K/UL CBC W/AUTO [id number] 00:00:00* Test Item Value Reference Range Interpretation [...] code = 1015) 352 K/UL CBC W/AUTO [id number] 00:00:00* Test Item Value Reference Range Interpretation [...] (test code = 2821) 1.3 UIU/ML LIPID [id number] 00:00:00* Test Item Value Reference Range Interpretation Comme nts CHOLESTEROL (test code = 2210) 167 MG/DL TRIGLYCERIDES (test code = 2232) 113 MG/DL HDL CHOLESTEROL (test code = 2220) 53 MG/DL CALCULATED LDL CHOL (test co de = 2237) 91 MG/DL RISK RATIO LDL/HDL (test cod e = 2238) 1.72 RATIO LIPID [id number] 00:00:00* Test Item Value Reference Range Interpretation Comme nts CHOLESTEROL (test code = 2210) 167 MG/DL TRIGLYCERIDES (test code = 2232) 113 MG/DL HDL CHOLESTEROL (test code = 2220) 53 MG/DL CALCULATED LDL CHOL (test co de = 2237) 91 MG/DL RISK RATIO LDL/HDL (test cod e = 2238) 1.72 RATIO COMPREHENSIVE METABOLIC [id number] 00:00:00* Test Item Value Reference Range Interpretation Comme nts GLUCOSE (test code = 2217) 195 MG/DL BUN (test code = 2208) 14 MG/DL CREATININE (test code = 2214) 0.55 MG/DL eGFR AMER. (test cod e = 40752) 132 ML/MIN/1.73 eGFR NON- AMER. (test code = 45642) 114 ML/MIN/1.73 CALCULATED BUN/CREAT (test code = [...]
[2024-03-29] MEDS ORDERED: ACETAMINOPHEN 500 MG TAB ONE (23:23)
[2024-03-29] MEDS ORDERED: dexAMETHasone 10 MG/ML VIAL ONE (23:23)
[2024-03-29] MEDS ORDERED: CYCLOBENZAPRINE 10 MG TAB ONE (23:23)
[2024-03-29] MEDS ORDERED: LIDOCAINE 4% PATCH ONE (23:24)
--- NOTE | 2024-03-30 08:54 | EDPHYS ---
Physician Documentation [facility] Name: Tova Ames Age: 53 yrs Sex: Female : 1970 Arrival Date: 03/29/2024 Time: 20:21 Bed 18 Private MD: ED Physician Elan Oropeza HPI: 03/29 21:54 This 53 yrs old Female presents to ER via Wheelchair with complaints of Fall ec2 Injury, Back Pain - to side pain. 21:54 Patient complaining of low back pain along with left leg pain. Patient reports that she ec2 had a fall earlier today. History of sciatica. Patient with otherwise no red flag symptoms.. Historical: - Allergies: 21:48 Aspirin; vc1 21:48 Ibuprofen; vc1 21:48 Influenza Virus Vaccines; vc1 21:48 PENICILLINS; vc1 - PMHx: 21:48 diabetes mellitus; Left knee torn ACL (Unknown); Nerve damage; sciatica (Unknown); vc1 - Immunization history: Last tetanus immunization: - up to date. < 5 years ago. - Infectious Disease History:: Denies. - Social history:: Smoking status: Patient denies any tobacco usage or history of. ROS: 21:54 Constitutional: as per hpi ec2 Exam: 21:54 Constitutional: GEN: NAD Head: atraumatic Eyes: EOMI Ears: External ears are ec2 normal. CV: regular rate LUNGS: no respiratory distress ABD: non-distended SKIN: no evidence of rashes MSK: no evidence of trauma, L-spine paraspinal TTP. Positive straight leg raise test on left lower extremity. NEURO: moves all extremities equally Vital Signs: 21:44 BP 149 / 90; Pulse 90; Resp 16; Temp 98.1; Pulse Ox 98% ; Weight 78.02 kg; Height 5 ft. vc1 2 in. ; Pain 9/10; 21:44 Body Mass Index 31.46 (78.02 kg, 157.48 cm) vc1 21:44 Pain Scale: Adult vc1 [place] Coma Score: 21:44 Eye Response: spontaneous(4). Motor Response: obeys commands(6). Verbal Response: vc1 oriented(5). Total: 15. Trauma Score (Adult): 21:44 Eye Response: spontaneous(1); Verbal Response: oriented(1); Motor Response: obeys vc1 commands(2); Systolic BP: > 89 mm Hg(4); Respiratory Rate: 10 to 29 per min(4); [place] Score: 15; Trauma Score: 12 MDM: 21:52 Patient medically screened. ec2 21:54 Data reviewed: vital signs. ec2 21:56 ED course: Patient arrives today for evaluation of low back pain and radiating pain to ec2 left lower extremity. Examination remarkable for MSK findings as above. Will obtain L-spine x-ray, treat pain and symptoms. Suspect sciatica, doubt fracture, doubt spinal cord pathology. 23:39 ED course: Patient states that she did not want to undergo radiographs. will prescribe ec2 the patient methocarbamol and have her follow-up with a primary care doctor. Return precautions given.. Administered Medications: 23:29 Drug: Acetaminophen PO 1000 mg PO once Route: PO; cg 23:29 Drug: Lidoderm Topical Patch 5 % (700 mg/patch) 1 patches Topical once; leave on for 12 cg hours; cover most painful area; may cut into smaller pieces Route: Topical; Site: affected area; 23:29 Drug: Cyclobenzaprine PO 10 mg PO once Route: PO; cg 23:30 Drug: Dexamethasone IM 10 mg IM once Route: IM; Site: right gluteus; cg Disposition Summary: 03/29/24 23:40 Discharge Ordered Notes: Location: Home ec2 Condition: Stable ec2 Diagnosis - Low back pain ec2 Followup: ec2 - With: Private Physician - When: - Reason: Re-evaluation by your physician Discharge Instructions: - Discharge Summary Sheet ec2 - Acute Back Pain, Adult ec2 Forms: - Medication Reconciliation Form ec2 - Antibiotic Education ec2 - Prescription Opioid Use ec2 - Patient Portal Instructions ec2 - Leadership Thank You Letter ec2 Prescriptions: - methocarbamol 500 mg Oral tablet - take 2 tablets ORAL route 4 times per day; 20 tablet; Refills: 0, Product ec2 Selection Permitted Signatures: Dispatcher [employer] Debbie Dennis RN RN cg Calcote, Vanessa, RN RN vc1 Elan Oropeza MD MD ec2 Corrections: (The following items were deleted from the chart) 23:50 22:49 Lumbar Spine 3 Views ordered. EDCT ED
--- NOTE | 2024-03-30 08:54 | ER ---
Nurse's Notes [facility] Name: Tova Ames Age: 53 yrs Sex: Female : 1970 Arrival Date: 03/29/2024 Time: 20:21 Bed 18 Private MD: Diagnosis: Low back pain Presentation: 03/29 21:40 Chief complaint: Patient states: Fell today around 5pm. Since then has not been able to vc1 walk very well. Does have a history of back nerve pain. Nausea but no vomiting. Mechanism of Injury: Fall approximately 0 feet. Trauma event details: Injury occurred in the county of. 21:40 Acuity: JACKIE 3 vc1 21:40 Method Of Arrival: Wheelchair vc1 21:40 Coronavirus screen: Client denies travel out of the [place] in the last 14 days. At this vc1 time, the client does not indicate any symptoms associated with coronavirus-19. Ebola Screen: Patient negative for fever greater than or equal to 101.5 degrees Fahrenheit, and additional compatible Ebola Virus Disease symptoms Patient denies exposure to infectious person. Patient denies travel to an Ebola-affected area in the 21 days before illness onset. No symptoms or risks identified at this time. 21:40 Initial Sepsis Screen: Does the patient meet any 2 criteria? No. Patient's initial vc1 sepsis screen is negative. Does the patient have a suspected source of infection? No. Patient's initial sepsis screen is negative. Risk Assessment: Do you want to hurt yourself or someone else? Patient reports no desire to harm self or others. Onset of symptoms was March 30, 2024. Historical: - Allergies: 21:48 Aspirin; vc1 21:48 Ibuprofen; vc1 21:48 Influenza Virus Vaccines; vc1 21:48 PENICILLINS; vc1 - PMHx: 21:48 diabetes mellitus; Left knee torn ACL (Unknown); Nerve damage; sciatica (Unknown); vc1 - Immunization history: Last tetanus immunization: - up to date. < 5 years ago. - Infectious Disease History:: Denies. - Social history:: Smoking status: Patient denies any tobacco usage or history of. Screenin:40 Abuse screen: Denies threats or abuse. Nutritional screening: No deficits noted. vc1 Tuberculosis screening: No symptoms or risk factors identified. 21:40 [facility] Fall Risk Assessment (Adult) History of falling in the last 3 months, vc1 including since admission Yes- single mechanical fall (1 pt) Confusion or Disorientation No (0 pts) Intoxicated or Sedated No (0 pts) Impaired Gait Yes (1 pt) Mobility Assist Device Used No (0 pt) Altered Elimination No (0 pt) Score/Fall Risk Level 0 - 2 = Low Risk Oriented to surroundings, Maintained a safe environment, Educated pt \T\ family on fall prevention, incl call for assistance when getting out of bed. Assessment: 21:43 General: Appears uncomfortable, Behavior is calm, quiet. Pain: Complains of pain in vc1 back Pain currently is 9 out of 10 on a pain scale. Quality of pain is described as burning. Vital Signs: 21:44 BP 149 / 90; Pulse 90; Resp 16; Temp 98.1; Pulse Ox 98% ; Weight 78.02 kg; Height 5 ft. vc1 2 in. ; Pain 9/10; 21:44 Body Mass Index 31.46 (78.02 kg, 157.48 cm) vc1 21:44 Pain Scale: Adult vc1 [place] Coma Score: 21:44 Eye Response: spontaneous(4). Motor Response: obeys commands(6). Verbal Response: vc1 oriented(5). Total: 15. Trauma Score (Adult): 21:44 Eye Response: spontaneous(1); Verbal Response: oriented(1); Motor Response: obeys vc1 commands(2); Systolic BP: > 89 mm Hg(4); Respiratory Rate: 10 to 29 per min(4); [place] Score: 15; Trauma Score: 12 ED Course: 20:24 Patient arrived in ED. ra3 20:40 Elan Oropeza MD is Attending Physician. ec2 21:40 Arm band placed on right wrist. vc1 21:43 Triage completed. vc1 23:45 No provider procedures requiring assistance completed. Patient did not have IV access vc1 during this emergency room visit. Administered Medications: 23:29 Drug: Acetaminophen PO 1000 mg PO once Route: PO; cg 23:29 Drug: Lidoderm Topical Patch 5 % (700 mg/patch) 1 patches Topical once; leave on for 12 cg hours; cover most painful area; may cut into smaller pieces Route: Topical; Site: affected area; 23:29 Drug: Cyclobenzaprine PO 10 mg PO once Route: PO; cg 23:30 Drug: Dexamethasone IM 10 mg IM once Route: IM; Site: right gluteus; cg Medication: 23:54 VIS not applicable for this client. vc1 Outcome: 23:40 Discharge ordered by . ec2 23:53 Patient left the ED. vc1 23:53 Discharged to home vc1 23:53 Condition: good 23:53 Discharge instructions given to patient, Instructed on discharge instructions, follow up and referral plans. Demonstrated understanding of instructions, follow-up care, Signatures: Debbie Tsai RN RN Shilpa Kirk RN RN vc1 Elan Oropeza MD MD ec2 Parvin Morgan 3
[2024-03-30 13:11] VITALS: BP 149/90; TEMP 98.1; O2SAT 98
== END 2024-03-29 23:53 | disposition home or self-care (01) ==
LOC: ER 20:21
DX: M54.50 Low back pain, unspecified (principal)
CPT/HCPCS: 96372; 99284; J2001; J1100

== ENCOUNTER 2024-05-10 20:37 | Emergency (ER) | payer OTHER ==
--- OUTSIDE RECORDS SUMMARY | 2024-05-10 20:48 | XMS REPORT | Continuity of Care Document ---
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 ACTIVATED PARTIAL THRMPLAS RUBIO 2020-12-17 17:46:00 Hermilo Jeffery [facility] URINALYSIS 2020-12-17 17:46:00 Hermilo Jeffery [facility] COVID-19 (ID NOW RAPID TESTING) 2020-12-17 17:46:00 Hermilo Jeffery [facility] NOTICE OF PRIVACY PRACTICES 2020-12-17 17:07:59 Doctor Unassigned, [facility] CONSENT/REFUSAL FOR DIAGNOSIS AND TREATMENT 2020-12-17 17:07:25 Doctor Unassigned, [facility] CT CHEST PULMONARY ANGIOGRAM 2020-10-30 14:24:45 John Kamara [facility] POCT TEST 2020-10-30 14:14:00 Truong Kamara [facility] XR CHEST 1 VW 2020-10-30 13:04:14 Kt Ratliff [facility] TEST, SERUM 2020-10-30 12:49:00 Faisal Ratliff [facility] TROPONIN I 2020-10-30 12:49:00 Kt Ratliff [facility] HEPATIC FUNCTION PANEL ([id number]) (ALB,T.PRO,BILI T,BU/BC,ALT,AST,ALK PHOS) 2020-10-30 12:49:00 Kt Ratliff [facility] BASIC METABOLIC PANEL (NA, K, CL, CO2, GLUCOSE, BUN, CREATININE, CA) 2020-10-30 12:49:00 Kt Ratliff [facility] CBC WITH DIFF 2020-10-30 12:49:00 [facility] / INR 2020-10-30 12:49:00 Sukumar Ratliff [facility] D-DIMER 2020-10-30 12:49:00 Kt Ratliff [facility] ACTIVATED PARTIAL THRMPLAS RUBIO 2020-10-30 12:49:00 Kt Ratliff [facility] RAPID STREP SCREEN FOR GROUP A 2020-10-30 12:49:00 Kt Ratliff [facility] ADC,CLC OR LCC ONLY - INFLUENZA A & B DIRECT ANTIGEN 2020-10-30 12:49:00 Kt Ratliff [facility] COVID-19 (ID NOW RAPID TESTING) 2020-10-30 12:49:00 Kt Ratliff [facility] NOTICE OF PRIVACY PRACTICES 2020-10-30 12:21:16 Doctor Unassigned, [facility] CONSENT/REFUSAL FOR DIAGNOSIS AND TREATMENT 2020-10-30 12:21:04 Doctor Unassigned, [facility] URINALYSIS 2020-09-26 22:51:00 Carie Chanel [facility] XR CHEST 1 VW 2020-09-26 22:03:02 Carie Chanel [facility] LIPASE 2020-09-26 21:51:00 Carie Chanel [facility] TROPONIN I 2020-09-26 21:51:00 Carie Chanel [facility] COMP. METABOLIC PANEL ([id number]) 2020-09-26 21:51:00 Carie Chanel [facility] CBC WITH DIFF 2020-09-26 21:51:00 Carie Chanel [facility] N-TERMINAL PRO-BNP 2020-09-26 21:51:00 Carie Chanel [facility] CONSENT/REFUSAL FOR DIAGNOSIS AND TREATMENT 2020-09-26 21:08:31 Doctor Unassigned, [facility] CT CHEST PULMONARY ANGIOGRAM 2020-09-02 02:01:09 Luisito Chavis [facility] D-DIMER 2020-09-02 00:29:00 Luisito [facility]avis [facility] XR CHEST 1 VW 2020-09-01 23:08:31 Luisito Chavis [facility] POCT TEST 2020-09-01 22:52:00 Luisito Chavis [facility] BLOOD CULTURE SCREEN 2020-09-01 22:47:00 Luisito Chavis [facility] COMP. METABOLIC PANEL (00104) 2020-09-01 22:47:00 Luisito Chavis [facility] CBC WITH DIFF 2020-09-01 22:47:00 Luisito Chavis [facility] URINALYSIS 2020-09-01 22:47:00 Luisito Chavis [facility] ADC,CLC OR LCC ONLY - INFLUENZA A & B DIRECT ANTIGEN 2020-09-01 22:47:00 Luisito Chavis [facility] N-TERMINAL PRO-BNP 2020-09-01 22:47:00 Luisito Chavis [facility] LACTIC ACID WHOLE BLOOD 2020-09-01 22:47:00 Me hussein Chavis [facility] COVID-19 (ID NOW RAPID TESTING) 2020-09-01 22:47:00 Luisito Chavis [facility] NOTICE OF PRIVACY PRACTICES 2020-09-01 22:31:34 Doctor Unassigned, [facility] CONSENT/REFUSAL FOR DIAGNOSIS AND TREATMENT 2020-09-01 22:18:34 Doctor Unassigned, [facility] CT ABDOMEN PELVIS W CONTRAST 2020-07-26 04:10:32 Yolanda Bass [facility] LIPASE 2020-07-26 02:16:00 Yolanda Bass [facility] COMP. METABOLIC PANEL (65517) 2020-07-26 02:16:00 Yolanda Bass [facility] CBC WITH DIFF 2020-07-26 02:16:00 Yolanda Bass [facility] URINALYSIS 2020-07-26 02:16:00 Yolanda Bass [facility] EKG-12 LEAD 2020-07-26 02:00:35 Yolanda Bass [facility] NOTICE OF PRIVACY PRACTICES 2020-07-26 00:35:41 Doctor Unassigned, [facility] CONSENT/REFUSAL FOR DIAGNOSIS AND TREATMENT 2020-07-26 00:35:21 Doctor Unassigned, [facility] REFERRAL- REQUEST/RESPONSE 2020-07-05 05:01:00 Doctor Unassigned, [facility] Plan of Care Planned Activity Planned Date Details Comments Source Goal Plan of Care Note [code = 41197-0] Goal Plan of Care Note [code = 20746-8] Goal Plan of Care Note [code = 74087-7] Goal Plan of Care Note [code = 91705-0] Goal Plan of Care Note [code = 36078-7] Goal Plan of Care Note [code = 43671-9] Goal Plan of Care Note [code = 35073-2] Goal Plan of Care Note [code = 88229-1] Goal Plan of Care Note [code = 86110-8] Goal Plan of Care Note [code = 34624-2] Goal Plan of Care Note [code = 55327-0] Goal Plan of Care Note [code = 47694-5] Goal Plan of Care Note [code = 84445-5] Goal Plan of Care Note [code = 96534-8] Goal Plan of Care Note [code = 11655-3] Goal Plan of Care Note [code = 16921-9] Goal Plan of Care Note [code = 36571-5] Goal Plan of Care Note [code = 36512-8] Goal Plan of Care Note [code = 65568-6] Goal Plan of Care Note [code = 94507-9] Goal Plan of Care Note [code = 33421-4] Goal Plan of Care Note [code = 86986-2] Goal Plan of Care Note [code = 24284-4] Goal Plan of Care Note [code = 85534-0] Goal Plan of Care Note [code = 46452-4] Goal Plan of Care Note [code = 43325-4] Goal Plan of Care Note [code = 32436-5] Goal Plan of Care Note [code = 89488-3] Goal Plan of Care Note [code = 68579-3] Goal Plan of Care Note [code = 89258-4] Goal Plan of Care Note [code = 31230-5] Goal Plan of Care Note [code = 66641-8] Goal Plan of Care Note [code = 96159-8] Goal Plan of Care Note [code = 06324-4] Goal Plan of Care Note [code = 95618-4] Goal Plan of Care Note [code = 37844-6] Goal Plan of Care Note [code = 39561-9] Goal Plan of Care Note [code = 21044-7] Goal Plan of Care Note [code = 66850-3] Goal Plan of Care Note [code = 15063-1] Goal Plan of Care Note [code = 03044-0] Goal Plan of Care Note [code = 62477-1] Goal Plan of Care Note [code = 15117-0] Goal Plan of Care Note [code = 22127-5] Goal Plan of Care Note [code = 93830-7] Goal Plan of Care Note [code = 76951-9] Goal Plan of Care Note [code = 90994-2] Goal Plan of Care Note [code = 26589-7] Goal Plan of Care Note [code = 85062-0] Goal Plan of Care Note [code = 94964-2] Goal Plan of Care Note [code = 38026-6] Goal Plan of Care Note [code = 23191-1] Goal Plan of Care Note [code = 27412-1] Goal Plan of Care Note [code = 16624-9] Goal Plan of Care Note [code = 21896-3] Goal Plan of Care Note [code = 00637-5] Goal Plan of Care Note [code = 46174-3] Goal Plan of Care Note [code = 91883-3] Goal Plan of Care Note [code = 97211-6] Goal Plan of Care Note [code = 36909-5] Goal Plan of Care Note [code = 85697-4] Goal Plan of Care Note [code = 48043-6] Goal Plan of Care Note [code = 55745-8] Goal Plan of Care Note [code = 37948-8] Goal Plan of Care Note [code = 06041-3] Goal Plan of Care Note [code = 07137-7] Goal Plan of Care Note [code = 19745-1] Goal Plan of Care Note [code = 50793-5] Goal Plan of Care Note [code = 67684-7] Goal Plan of Care Note [code = 82054-0] Goal Plan of Care Note [code = 08325-4] Goal Plan of Care Note [code = 53918-1] Goal Plan of Care Note [code = 61161-4] Goal Plan of Care Note [code = 71822-1] Goal Plan of Care Note [code = 04846-3] Goal Plan of Care Note [code = 42277-8] Goal Plan of Care Note [code = 84542-9] Goal Plan of Care Note [code = 60773-8] Goal Plan of Care Note [code = 70917-1] Goal Plan of Care Note [code = 91870-1] Goal Plan of Care Note [code = 78268-4] Goal Plan of Care Note [code = 65716-6] Goal Plan of Care Note [code = 56766-8] Goal Plan of Care Note [code = 21163-6] Goal Plan of Care Note [code = 09955-1] Goal Plan of Care Note [code = 88123-1] Goal Plan of Care Note [code = 16113-8] Goal Plan of Care Note [code = 50649-8] Goal Plan of Care Note [code = 08330-0] Goal Plan of Care Note [code = 77379-4] Goal Plan of Care Note [code = 11182-5] Goal Plan of Care Note [code = 44839-5] Goal Plan of Care Note [code = 11113-5] Goal Plan of Care Note [code = 13669-0] Goal Plan of Care Note [code = 80481-7] Goal Plan of Care Note [code = 93593-0] Goal Plan of Care Note [code = 81239-8] Goal Plan of Care Note [code = 43291-6] Goal Plan of Care Note [code = 00765-9] Goal Plan of Care Note [code = 89655-5] Goal Plan of Care Note [code = 16480-7] Goal Plan of Care Note [code = 20040-6] Goal Plan of Care Note [code = 33063-0] Goal Plan of Care Note [code = 90810-0] Goal Plan of Care Note [code = 52580-2] Goal Plan of Care Note [code = 92608-5] Goal Plan of Care Note [code = 77545-8] Goal Plan of Care Note [code = 68085-5] Goal Plan of Care Note [code = 04038-9] Goal Plan of Care Note [code = 42315-9] Goal Plan of Care Note [code = 40187-9] Goal Plan of Care Note [code = 99944-3] Goal Plan of Care Note [code = 04941-0] Goal Plan of Care Note [code = 48326-7] Goal Plan of Care Note [code = 65299-4] Goal Plan of Care Note [code = 71082-2] Goal Plan of Care Note [code = 58506-1] Goal Plan of Care Note [code = 66431-2] Goal Plan of Care Note [code = 73536-1] Goal Plan of Care Note [code = 92617-0] Goal Plan of Care Note [code = 70300-4] Goal Plan of Care Note [code = 28928-4] Goal Plan of Care Note [code = 97600-8] Goal Plan of Care Note [code = 00812-6] Goal Plan of Care Note [code = 90245-4] Goal Plan of Care Note [code = 20258-2] Goal Plan of Care Note [code = 88955-9] Goal Plan of Care Note [code = 84720-5] Goal Plan of Care Note [code = 35485-2] Goal Plan of Care Note [code = 46031-4] Goal Plan of Care Note [code = 70735-1] Goal Plan of Care Note [code = 97200-3] Goal Plan of Care Note [code = 16599-3] Goal Plan of Care Note [code = 71197-6] Goal Plan of Care Note [code = 85993-7] Goal Plan of Care Note [code = 90425-3] Goal Plan of Care Note [code = 15294-8] Goal Plan of Care Note [code = 03379-7] Goal Plan of Care Note [code = 80130-6] Goal Plan of Care Note [code = 83398-0] Goal Plan of Care Note [code = 36098-7] Goal Plan of Care Note [code = 43960-6] Goal Plan of Care Note [code = 16548-7] Goal Plan of Care Note [code = 71150-2] Goal Plan of Care Note [code = 19375-1] Goal Plan of Care Note [code = 43422-9] Goal Plan of Care Note [code = 75347-4] Goal Plan of Care Note [code = 76156-0] Goal Plan of Care Note [code = 33869-7] Goal Plan of Care Note [code = 81684-4] Goal Plan of Care Note [code = 57093-0] Goal Plan of Care Note [code = 84672-4] Goal Plan of Care Note [code = 64543-4] Goal Plan of Care Note [code = 89992-6] Goal Plan of Care Note [code = 22901-1] Goal Plan of Care Note [code = 45528-1] Goal Plan of Care Note [code = 06078-3] Goal Plan of Care Note [code = 84643-9] Goal Plan of Care Note [code = 35035-1] Goal Plan of Care Note [code = 29035-2] Goal Plan of Care Note [code = 00595-2] Goal Plan of Care Note [code = 20298-3] Goal Plan of Care Note [code = 47828-2] Goal Plan of Care Note [code = 63554-9] Goal Plan of Care Note [code = 71804-9] Goal Plan of Care Note [code = 01644-4] Goal Plan of Care Note [code = 39265-3] Goal Plan of Care Note [code = 61254-6] Goal Plan of Care Note [code = 81515-0] Goal Plan of Care Note [code = 09458-3] Goal Plan of Care Note [code = 07454-5] Goal Plan of Care Note [code = 64295-9] Goal Plan of Care Note [code = 49708-4] Goal Plan of Care Note [code = 67386-3] Goal Plan of Care Note [code = 40132-7] Goal Plan of Care Note [code = 38866-5] Goal Plan of Care Note [code = 90955-8] Goal Plan of Care Note [code = 92823-8] Goal Plan of Care Note [code = 53539-5] Goal Plan of Care Note [code = 39610-8] Goal Plan of Care Note [code = 58189-0] Goal Plan of Care Note [code = 69670-5] Goal Plan of Care Note [code = 19462-9] Goal Plan of Care Note [code = 17630-8] Goal Plan of Care Note [code = 69277-7] Goal Plan of Care Note [code = 91692-0] Goal Plan of Care Note [code = 83757-1] Goal Plan of Care Note [code = 32466-8] Goal Plan of Care Note [code = 95805-1] Goal Plan of Care Note [code = 37998-4] Goal Plan of Care Note [code = 23553-8] Goal Plan of Care Note [code = 05468-9] Goal Plan of Care Note [code = 77124-0] Goal Plan of Care Note [code = 75330-5] Goal Plan of Care Note [code = 26286-5] Goal Plan of Care Note [code = 00262-4] Goal Plan of Care Note [code = 18619-0] Goal Plan of Care Note [code = 29492-7] Goal Plan of Care Note [code = 05139-2] Goal Plan of Care Note [code = 72942-6] Goal Plan of Care Note [code = 24758-3] Goal Plan of Care Note [code = 17806-2] Goal Plan of Care Note [code = 90039-0] Goal Plan of Care Note [code = 26275-2] Goal Plan of Care Note [code = 54736-9] Goal Plan of Care Note [code = 43243-2] Goal Plan of Care Note [code = 42775-4] Goal Plan of Care Note [code = 24190-6] Goal Plan of Care Note [code = 49992-3] Goal Plan of Care Note [code = 27511-4] Goal Plan of Care Note [code = 61520-6] Goal Plan of Care Note [code = 02430-6] Goal Plan of Care Note [code = 08772-3] Goal Plan of Care Note [code = 18847-9] Goal Plan of Care Note [code = 68478-8] Goal Plan of Care Note [code = 46542-7] Goal Plan of Care Note [code = 99179-4] Goal Plan of Care Note [code = 13538-0] Goal Plan of Care Note [code = 39434-2] Goal Plan of Care Note [code = 57054-9] Goal Plan of Care Note [code = 94839-6] Goal Plan of Care Note [code = 92291-3] Goal Plan of Care Note [code = 80309-6] Goal Plan of Care Note [code = 51964-7] Encounters Start Date/Time End Date/Time Encounter Type Admission Type Attending [facility] Care Department Encounter ID Source 2024-02-17 11:24:53 2024-02-17 11:24:53 Outpatient [facility] [id number] Óscar Zavala 2024-02-13 16:21:03 2024-02-13 16:21:03 Outpatient [facility] [id number] Óscar Zavala 2023-12-24 10:45:00 2023-12-24 10:45:00 Outpatient MAGALIE [facility]ALY [facility] [id number] [facility] 2023-12-17 16:47:51 2023-12-17 16:47:51 Outpatient [facility] [id number] Óscar Zavala 2023-12-11 14:22:41 2023-12-11 14:22:41 Outpatient [facility] [id number] Óscar Zavala 2023-11-18 11:00:00 2023-11-18 11:00:00 Outpatient MAGALIE DALY PATTERSON [id number] [facility] 2023-10-17 00:00:00 2023-10-17 00:00:00 Outpatient DALY MEJIAS [id number] [facility] 2023-10-16 00:00:00 2023-10-16 00:00:00 Outpatient PRELILOKathleenDALY [id number] [facility] 2023-10-15 00:00:00 2023-10-15 00:00:00 Outpatient DALY MEJIAS [id number] [facility] 2023-10-14 09:45:00 2023-10-14 09:45:00 Outpatient THEO PATTERSON [id number] [facility] 2023-10-14 08:45:00 2023-10-14 08:45:00 Outpatient DALY MEJIASSEY [id number] [facility] 2023-08-14 11:42:13 2023-08-14 11:42:13 Outpatient [facility] [id number] Óscar Zavala 2023-07-09 15:49:57 2023-07-09 15:49:57 Outpatient [facility] [id number] Óscar Zavala 2023-04-26 00:00:00 2023-04-26 00:00:00 Orders Only Doctor Unassigned, [facility] 1.2.840.114 350.1.13.10 4.2.7.2.[id number] [facility] 2023-04-23 10:17:21 2023-04-23 10:17:21 Outpatient [facility] [id number] Óscar Zavala 2023-04-17 00:00:00 2023-04-17 00:00:00 Orders Only Doctor Unassigned, [facility] 1.2.840.114 350.1.13.10 4.2.7.2.[id number] [facility] 2023-02-08 08:35:00 2023-02-08 12:02:00 Emergency X Maricarmen SANCHEZ [facility] ERT [id number] [facility] 2023-02-08 08:35:00 2023-02-08 12:02:00 Emergency Maricarmen Sanchez [facility] 1.2.840.114 350.1.13.10 4.2.7.2.[id number] [facility] 2023-02-08 00:00:00 2023-02-08 00:00:00 Patient Secure Msg Doctor Unassigned, [facility] 1.2.840.114 350.1.13.10 4.2.7.2.[id number] [facility] 2022-12-17 14:21:59 2022-12-17 14:21:59 Outpatient [facility] [id number] Óscar Zavala 2022-11-28 16:34:00 2022-11-28 18:21:00 Emergency X JOHN KAMARA [facility] ERT [id number] [facility] 2022-11-28 16:34:00 2022-11-28 18:21:00 Emergency John Kamara [facility] 1.2.840.114 350.1.13.10 4.2.7.2.[id number] [facility] 2022-11-28 13:54:29 2022-11-28 13:54:29 Outpatient [facility] [id number] Óscar Rose Lucas 2022-11-08 10:17:59 2022-11-08 10:17:59 Outpatient [facility] [id number] Óscar Rose [place] 2022-10-30 08:40:52 2022-10-30 08:40:52 Outpatient [facility] [id number] Óscar Rose [place] 2022-10-23 17:01:52 2022-10-23 17:01:52 Outpatient [facility] [id number] Óscar Rose [place] 2022-10-23 00:00:00 2022-10-23 00:00:00 Outpatient Visit [id number] 2022-09-16 14:58:00 2022-09-16 19:08:00 Emergency X DANNIELLE ARECHIGA [facility] ERT [id number] [facility] 2022-09-16 14:58:00 2022-09-16 19:08:00 Emergency Dannielle Arechiga [facility] 1.2.840.114 350.1.13.10 4.2.7.2.[id number] [facility] 2022-08-15 10:49:03 2022-08-15 10:49:03 Outpatient [facility] [id number] Óscar Zavala 2022-07-02 00:00:00 2022-07-02 00:00:00 Outpatient Visit [id number] 2022-06-25 20:19:00 2022-06-25 21:54:00 Emergency X EBENEZER HELM [facility] ERT [id number] [facility] 2022-06-25 20:19:00 2022-06-25 21:54:00 Emergency BehEbenezer chau A [facility] 1.2.840.114 350.1.13.10 4.2.7.2.[id number] [facility] 2022-06-05 00:00:00 2022-06-05 00:00:00 Outpatient Visit [id number] 2022-05-07 00:00:00 2022-05-07 00:00:00 Outpatient Visit [id number] 2022-04-09 22:07:00 2022-04-09 22:08:00 Emergency X SARAVANAN [facility] ERT [id number] [facility] 2022-04-09 22:07:00 2022-04-09 22:08:00 [facility] [place] 1.2.840.114 350.1.13.10 4.2.7.2.[id number] [facility] 2021-12-06 21:21:00 2021-12-07 01:08:00 Emergency X LOI, ELADIO [facility] ERT [id number] [facility] 2021-12-06 21:21:00 2021-12-07 01:08:00 Emergency Eladio Monsivais [facility] 1.2.840.114 350.1.13.10 4.2.7.2.[id number] [facility] 2021-06-23 22:09:00 2021-06-23 22:10:00 Emergency Yolanda Bass [facility] 1.2.840.114 350.1.13.10 4.2.7.2.[id number] [facility] 2021-06-23 21:42:00 2021-06-23 21:42:00 Emergency X YOLANDA BASS [facility] ERT [id number] [facility] 2021-03-05 17:25:00 2021-03-05 18:39:00 Emergency Vonnie Nathan [facility] 1.2.840.114 350.1.13.10 4.2.7.2.[id number] [facility] 2021-03-05 17:25:00 2021-03-05 18:39:00 Emergency X VONNIE NATHAN [facility] ERT [id number] [facility] 2020-12-17 11:09:00 2020-12-17 12:55:00 Emergency Jose D Hermilo [facility] 1.2.840.114 350.1.13.10 4.2.7.2.[id number] [facility] [facility] 2020-12-17 11:09:00 2020-12-17 12:55:00 Emergency X JOSE DHERMILO [facility] ERT [id number] [facility] 2020-10-30 06:26:00 2020-10-30 09:25:00 Emergency Kt Ratliff [facility] 1.2.840.114 350.1.13.10 4.2.7.2.[id number] [facility] 2020-10-30 06:22:00 2020-10-30 06:22:00 Emergency X [facility] ERT [id number] [facility] 2020-09-26 15:22:00 2020-09-26 19:20:00 Emergency Carie Chanel [facility] 1.2.840.114 350.1.13.10 4.2.7.2.[id number] [facility] 2020-09-26 15:22:00 2020-09-26 19:20:00 Emergency X CARIE CHANEL [facility] ERT [id number] [facility] 2020-09-01 16:25:00 2020-09-01 20:55:00 Emergency Joseph Chavisn Silvino [facility] 1.2840.114 350.1.13.10 4.2.7.2.[id number] [facility] 2020-09-01 16:25:00 2020-09-01 16:25:00 Emergency X LUISITO CHAVIS [facility] ERT [id number] [facility] 2020-09-01 00:00:00 2020-09-01 00:00:00 Nurse Triage Ly Yepez [facility] 1.2.840.114 350.1.13.10 4.2.7.2.[id number] [facility] 2020-08-08 00:00:00 2020-08-08 00:00:00 Letter (Out) Mckayla Masterson [facility] 1.2.840.114 350.1.13.10 4.2.7.2.[id number] [facility] 2020-07-25 20:28:00 2020-07-25 23:58:00 Emergency Yolanda Bass [facility] 1..840.114 350.1.13.10 4.2.7.2.[id number] [facility] 2020-07-25 19:37:00 2020-07-25 19:37:00 Emergency X [facility] ERT [id number] [facility] 2020-07-05 00:00:00 2020-07-05 00:00:00 Orders Only Doctor Unassigned, [place] [facility] 1.840.114 350.1.13.10 4.2.7.2.[id number] [facility] 2018-07-15 08:45:00 2018-07-15 08:45:00 Outpatient [facility] [id number] [facility] 2018-01-07 14:30:00 2018-01-07 14:30:00 Outpatient [facility] [id number] [facility] Results Test Description Test Time Test Comments Results Result Co mments Source LIPID [id number] 03:31:26* Test Item Value Reference Range Interpretation [...] SPECIMENS. FOR MOREINFORMATION, SEE CLIENT ANNOUNCEMENT AT [email or web address] RISK RATIO LDL/HDL (test code = 2238) 2.18 RATIO <3.22 UNLESS OTHERW ISE INDICATED, ALL TESTING PERFORMED AT [facility] [address] [place] [address] WEB SITE ADMINISTRATOR: JOSE MORALES M.D. CLIA NUMBER [id number] [place]. [id number] HEMOGLOBIN [id number] 02:53:39* Test Item Value Reference Range Interpretation Comme nts HEMOGLOBIN A1c (test code = 89978) 11.7 % 4.2-5.6 H [employer] GUIDELINES FOR HGB A1C: [...] CONSIDER ALTERNATE TESTING OR LABORATORY CONSULTATION. LIPID [id number] 10:46:21* Test Item Value Reference Range Interpretation [...] SPECIMENS. FOR MOREINFORMATION, SEE CLIENT ANNOUNCEMENT AT [email or web address] RISK RATIO LDL/HDL (test code = 2238) 1.98 RATIO <3.22 COMPREHENSIVE METABOLIC [id number] 10:46:21* Test Item Value Reference Range Interpretation Comme nts GLUCOSE (test code = 2217) 173 MG/DL 70-99 H BUN (test code = 2208) 7 MG/DL 6-20 CREATININE (test code = 2214) 0.56 MG/DL 0.60-1.30 L eGFR (2020 CKD-EPI) (test code = 18498) 110 ML/MIN/1.73 >60 CALC BUN/CREAT (test code [...] 5-40 UNLESS OTHERWISE INDICATED, [facility] [address] [place] [address] WEB SITE ADMINISTRATOR: KEVIN FRANCO M.D. CLIA NUMBER [id number] [facility] [place]. [id number] HEMOGLOBIN [id number] 07:47:20* Test Item Value Reference Range Interpretation Comme [facility] HEMOGLOBIN A1c (test code = 83659) 12.0 % 4.2-5.6 H [employer] GUIDELINES FOR HGB A1C: [...] [place] POCT GLU (test code = 4303345942) 292 mg/dL 70-110 H Lab Interpretation (test cod e = 58687-7) Abnormal [facility] GLUCOSE (AUTOMATED)2021-12-07 04:55:44* Test Item Value Reference Range Interpretation Comme nts POCT GLU (test code = 9905618253) 440 mg/dL 70-110 H Lab Interpretation (test cod e = 19431-0) Abnormal [facility]. METABOLIC PANEL (23108)2021-12-07 04:40:58* Test Item Value Reference Range Interpretation Comme nts NA (test code = 1752242914) 133 mmol/L 135-145 L K (test code = 5130231083) 4.2 mmol/L 3.5-5.0 CL (test code = 6916399060) 97 mmol/L 98-108 L CO2 TOTAL (test code = 9340867354) 25 mmol/L 23-31 AGAP (test code = 0362179346) 2-16 BUN (test code = 8835055919) 11 mg/dL 7-23 GLUCOSE (test code = 0535835964) 519 mg/dL 70-110 HH CREATININE (test code = 3773824829) 0.65 mg/dL 0.50-1.04 TOTAL BILI (test code = 8116151508) 0.4 mg/dL 0.1-1.1 CALCIUM (test code = 8425249719) 8.8 mg/dL 8.6-10.6 T PROTEIN (test code = 2389435964) 6.9 g/dL 6.3-8.2 ALBUMIN (test code = 9418484142) 3.9 g/dL 3.5-5.0 ALK PHOS (test code = 1186760114) 113 U/L 34-122 ALTv (test code = 1742-6) 25 U/L 5-35 AST(SGOT) (test code = 2197309119) 32 U/L 13-40 eGFR (test code = 0315651464) mL/min/1.73m2 MATTHEW (test code = MATTHEW) Association [...] imaging tests). Lab Interpretation (test code = 85805-5) [id number] 04:33:26* Test Item Value Reference Range Interpretation Comments TROPONIN I (test code = 3907470656) <0.012 See_Comment [Automated message] The system which [...] of biotin. Lab Interpretation (test code = 15080-3) [facility] [id number] 04:13:03* Test Item Value Reference Range Interpretation [...] the indications. Lab Interpretation (test code = 05547-4) Normal [facility] WITH [id number] 04:06:26* Test Item Value Reference Range Interpretation [...] 33.3 g/dL 31.6-35.1 RDW-SD (test code = 89148-9) 39.2 fL 39.0-49.9 RDW-CV (test code = 788-0) 12.2 % 12.0-15.5 PLT (test code = 777-3) See_Comment [Automated messa ge] The system which generated this result transmitted reference range: 166 - 358 10*3/?L. The reference range was not used to interpret this result as normal/abnormal. MPV (test code = 12275-7) 10.4 fL 9.5-12.9 NRBC/100 WBC (test code = 4572377281) See_Comment [Automated me ssage] The system which generated this result transmitted reference range: 0.0 - 10.0 /100 WBCs. The reference range was not used to interpret this result as normal/abnormal. NRBC x10^3 (test code = 8378152092) <0.01 See_Comment [Automated me ssage] The system which generated this result transmitted reference range: 10*3/?L. The reference range was not used to interpret this result as normal/abnormal. GRAN MAT (NEUT) % (test code = 770-8) 45.7 % IMM GRAN % (test code = 3438163263) 0.50 % LYMPH % (test code = 736-9) 38.7 % MONO % (test code = 5905-5) 10.4 % EOS % (test code = 713-8) 4.1 % BASO % (test code = 706-2) 0.6 % GRAN MAT x10^3(ANC) (test code = 3033200079) 3.00 10*3/uL 1.88-7.09 IMM GRAN x10^3 (test code = 0707002162) 0.03 10*3/uL 0.00-0.06 LYMPH x10^3 (test code = 731-0) 2.54 10*3/uL 1.32-3.29 MONO x10^3 (test code = 742-7) 0.68 10*3/uL 0.33-0.92 EOS x10^3 (test code = 711-2) 0.27 10*3/uL 0.03-0.39 BASO x10^3 (test code = 704-7) 0.04 10*3/uL 0.01-0.07 [facility], [id number] 00:00:00* Test Item Value Reference Range Interpretation Comme nts CULTURE, URINE (test code = 51276) SPECIMEN NUMBER: [id number] CULTURE, [id number] 00:00:00* Test Item Value Reference Range Interpretation Comme nts CULTURE, URINE (test code = 93567) SPECIMEN NUMBER: [id number] CULTURE, [id number] 00:00:00* Test Item Value Reference Range Interpretation Comme nts CULTURE, URINE (test code = 28841) SPECIMEN NUMBER: [id number] CULTURE, [id number] 00:00:00* Test Item Value Reference Range Interpretation Comme nts CULTURE, URINE (test code = 15973) SPECIMEN NUMBER: [id number] CULTURE, [id number] 00:00:00* Test Item Value Reference Range Interpretation Comme nts CULTURE, URINE (test code = 67152) SPECIMEN NUMBER: [id number] CULTURE, [id number] 00:00:00* Test Item Value Reference Range Interpretation Comme nts CULTURE, URINE (test code = 46338) SPECIMEN NUMBER: [id number] CULTURE, [id number] 00:00:00* Test Item Value Reference Range Interpretation Comme nts CULTURE, URINE (test code = 63562) SPECIMEN NUMBER: [id number] VAGINAL PATHOGENS DNA [id number] 00:00:00* Test Item Value Reference Range Interpretation Comme nts KASSI SPECIES (test code = ) NEGATIVE G. VAGINALIS (test code = 31817) POSITIVE T. VAGINALIS (test code = 90257) NEGATIVE VAGINAL PATHOGENS DNA [id number] 00:00:00* Test Item Value Reference Range Interpretation Comme nts KASSI SPECIES (test code = 12607) NEGATIVE G. VAGINALIS (test code = 28787) POSITIVE T. VAGINALIS (test code = 59505) NEGATIVE VAGINAL PATHOGENS DNA [id number] 00:00:00* Test Item Value Reference Range Interpretation Comme nts KASSI SPECIES (test code = 89570) NEGATIVE G. VAGINALIS (test code = 09721) POSITIVE T. VAGINALIS (test code = 47011) NEGATIVE VAGINAL PATHOGENS DNA [id number] 00:00:00* Test Item Value Reference Range Interpretation Comme nts KASSI SPECIES (test code = 42072) NEGATIVE G. VAGINALIS (test code = 09216) POSITIVE T. VAGINALIS (test code = 85090) NEGATIVE VAGINAL PATHOGENS DNA [id number] 00:00:00* Test Item Value Reference Range Interpretation Comme nts KASSI SPECIES (test code = 55573) NEGATIVE G. VAGINALIS (test code = 14489) POSITIVE T. VAGINALIS (test code = 61974) NEGATIVE VAGINAL PATHOGENS DNA [id number] 00:00:00* Test Item Value Reference Range Interpretation Comme nts KASSI SPECIES (test code = ) NEGATIVE G. VAGINALIS (test code = 28566) POSITIVE T. VAGINALIS (test code = 12738) NEGATIVE VAGINAL PATHOGENS DNA [id number] 00:00:00* Test Item Value Reference Range Interpretation Comme nts KASSI SPECIES (test code = ) NEGATIVE G. VAGINALIS (test code = 98731) POSITIVE T. VAGINALIS (test code = 00831) NEGATIVE DIAG MAMM BILATERAL HERNANDEZ CAD [id number] 08:00:36 Name: Stew : 1970 Sex: F - DIAG MAMM BILATERAL HERNANDEZ CAD DIGITALBILATERAL DIGITAL DIAGNOSTIC MAMMOGRAM 3D/2D WITH CAD: 04/06/2021LINICAL: Abnormal Report from CT scan. Digital breast tomosynthesis was performed in addition to routine CC and MLO views. Current mammographic images were evaluated by [employer] CAD (computer-aided detection) software. Comparison is made to exam dated 04/25/2015 mammogram - [facility]. The tissue of both breasts is [...] to exam dated 04/25/2015 mammogram - [facility]. Real-time ultrasound of both breasts and both axilla and clinical breast exam were performed. No abnormalities were seen sonographically in either breast or either axilla. Clinical breast exam was unremarkable.IMPRESSION: NEGATIVE There is no sonographic evidence of malignancy. Resume annual screening mammography in one year. Carmel Hensley M.D. dm/:04/07/2021 08:00:36 Entry: - 108:18:04Imaging Technologist: Bonnie Esteban FW, [facility]- FWletter sent: BIRADS 1-2 Combo FU Letter Mammogram BI-RADS: 0 Incomplete: Additional Imaging Evaluation Needed Ultrasound BI-RADS: 1 NegativeBREAST ULTRASOUND [id number] 08:00:36 Name: Stew : 1970 Sex: F - DIAG MAMM BILATERAL HERNANDEZ CAD DIGITALBILATERAL DIGITAL DIAGNOSTIC MAMMOGRAM 3D/2D WITH CAD: 04/06/2021LINICAL: Abnormal Report from CT scan. Digital breast tomosynthesis was performed in addition to routine CC and MLO views. Current mammographic images were evaluated by [employer] CAD (computer-aided detection) software. Comparison is made to exam dated 04/25/2015 mammogram - [facility]. The tissue of both breasts [...] to exam dated 04/25/2015 mammogram - [facility]. Real-time ultrasound of both breasts and both axilla and clinical breast exam were performed. No abnormalities were seen sonographically in either breast or either axilla. Clinical breast exam was unremarkable.IMPRESSION: NEGATIVE There is no sonographic evidence of malignancy. Resume annual screening mammography in one year. Carmel Hensley M.D. dm/:04/07/2021 08:00:36 Entry: - 108:18:04Imaging Technologist: Bonnie CALABRESE, [facility]- FWletter sent: BIRADS 1-2 Combo FU Letter Mammogram BI-RADS: 0 Incomplete: Additional Imaging Evaluation Needed Ultrasound BI-RADS: 1 NegativeH. PYLORI (BREATH)2021-03-04 00:00:00* Test Item Value Reference Range Interpretation Comme nts H. PYLORI (BREATH) (test cod e = 64123) POSITIVE H. PYLORI (BREATH)2021-03-04 00:00:00* Test Item Value Reference Range Interpretation Comme nts H. PYLORI (BREATH) (test cod e = 94438) POSITIVE H. PYLORI (BREATH)2021-03-04 00:00:00* Test Item Value Reference Range Interpretation Comme nts H. PYLORI (BREATH) (test cod e = 38808) POSITIVE H. PYLORI (BREATH)2021-03-04 00:00:00* Test Item Value Reference Range Interpretation Comme nts H. PYLORI (BREATH) (test cod e = 32283) POSITIVE H. PYLORI (BREATH)2021-03-04 00:00:00* Test Item Value Reference Range Interpretation Comme nts H. PYLORI (BREATH) (test cod e = 84542) POSITIVE H. PYLORI (BREATH)2021-03-04 00:00:00* Test Item Value Reference Range Interpretation Comme nts H. PYLORI (BREATH) (test cod e = 20726) POSITIVE H. PYLORI (BREATH)2021-03-04 00:00:00* Test Item Value Reference Range Interpretation Comme nts H. PYLORI (BREATH) (test cod e = 92891) POSITIVE LIPID [id number] 00:00:00* Test Item Value Reference Range Interpretation Comme nts CHOLESTEROL (test code = 2210) 185 MG/DL TRIGLYCERIDES (test code = 2232) 190 MG/DL HDL CHOLESTEROL (test code = 2220) 49 MG/DL CALC LDL CHOL (test code = 2237) 105 MG/DL RISK RATIO LDL/HDL (test cod e = 2238) 2.14 RATIO COMPREHENSIVE METABOLIC [id number] 00:00:00* Test Item Value Reference Range Interpretation Comme nts GLUCOSE (test code = 2217) 371 MG/DL BUN (test code = 2208) 11 MG/DL CREATININE (test code = 2214) 0.61 MG/DL eGFR AMER. (test cod e = 39592) 123 ML/MIN/1.73 eGFR NON- AMER. (test code = 68734) 106 ML/MIN/1.73 CALC BUN/CREAT (test code = [...] code = 2219) 20 U/L COMPREHENSIVE METABOLIC [id number] 00:00:00* Test Item Value Reference Range Interpretation Comme nts GLUCOSE (test code = 2217) 371 MG/DL BUN (test code = 2208) 11 MG/DL CREATININE (test code = 2214) 0.61 MG/DL eGFR AMER. (test cod e = 13419) 123 ML/MIN/1.73 eGFR NON- AMER. (test code = 90961) 106 ML/MIN/1.73 CALC BUN/CREAT (test code = [...] ALT (test code = 2219) 20 U/L [id number] 00:00:00* Test Item Value Reference Range Interpretation Comme nts TSH, THIRD GENERATION (test code = 2821) 1.180 UIU/ML [id number] 00:00:00* Test Item Value Reference Range Interpretation Comme nts TSH, THIRD GENERATION (test code = 2821) 1.180 UIU/ML [id number] 00:00:00* Test Item Value Reference Range Interpretation Comme nts TSH, THIRD GENERATION (test code = 2821) 1.180 UIU/ML H. PYLORI (BREATH)2021-01-20 00:00:00* Test Item Value Reference Range Interpretation Comme nts H. PYLORI (BREATH) (test cod e = 20132) POSITIVE H. PYLORI (BREATH)2021-01-20 00:00:00* Test Item Value Reference Range Interpretation Comme nts H. PYLORI (BREATH) (test cod e = 78632) POSITIVE CBC W/AUTO [id number] 00:00:00* Test Item Value Reference Range Interpretation [...] code = 1015) 387 K/UL CBC W/AUTO [id number] 00:00:00* Test Item Value Reference Range Interpretation [...] code = 1015) 387 K/UL CBC W/AUTO [id number] 00:00:00* Test Item Value Reference Range Interpretation [...] (test code = 1015) 387 K/UL HEMOGLOBIN [id number] 00:00:00* Test Item Value Reference Range Interpretation Comme nts HEMOGLOBIN A1c (test code = 07734) 11.1 % HEMOGLOBIN [id number] 00:00:00* Test Item Value Reference Range Interpretation Comme nts HEMOGLOBIN A1c (test code = 60948) 11.1 % HEMOGLOBIN [id number] 00:00:00* Test Item Value Reference Range Interpretation Comme nts HEMOGLOBIN A1c (test code = 92656) 11.1 % LIPID [id number] 00:00:00* Test Item Value Reference Range Interpretation Comme nts CHOLESTEROL (test code = 2210) 185 MG/DL TRIGLYCERIDES (test code = 2232) 190 MG/DL HDL CHOLESTEROL (test code = 2220) 49 MG/DL CALC LDL CHOL (test code = 2237) 105 MG/DL RISK RATIO LDL/HDL (test cod e = 2238) 2.14 RATIO LIPID [id number] 00:00:00* Test Item Value Reference Range Interpretation Comme nts CHOLESTEROL (test code = 2210) 185 MG/DL TRIGLYCERIDES (test code = 2232) 190 MG/DL HDL CHOLESTEROL (test code = 2220) 49 MG/DL CALC LDL CHOL (test code = 2237) 105 MG/DL RISK RATIO LDL/HDL (test cod e = 2238) 2.14 RATIO COMPREHENSIVE METABOLIC [id number] 00:00:00* Test Item Value Reference Range Interpretation Comme nts GLUCOSE (test code = 2217) 371 MG/DL BUN (test code = 2208) 11 MG/DL CREATININE (test code = 2214) 0.61 MG/DL eGFR AMER. (test cod e = 56123) 123 ML/MIN/1.73 eGFR NON- AMER. (test code = 39165) 106 ML/MIN/1.73 CALC BUN/CREAT (test code = [...] code = 2219) 20 U/L COMPREHENSIVE METABOLIC [id number] 00:00:00* Test Item Value Reference Range Interpretation Comme nts GLUCOSE (test code = 2217) 371 MG/DL BUN (test code = 2208) 11 MG/DL CREATININE (test code = 2214) 0.61 MG/DL eGFR AMER. (test cod e = ) 123 ML/MIN/1.73 eGFR NON- AMER. (test code = 89128) 106 ML/MIN/1.73 CALC BUN/CREAT (test code = [...] ALT (test code = 2219) 20 U/L [id number] 00:00:00* Test Item Value Reference Range Interpretation Comme nts TSH, THIRD GENERATION (test code = 2821) 1.180 UIU/ML [id number] 00:00:00* Test Item Value Reference Range Interpretation Comme nts TSH, THIRD GENERATION (test code = 2821) 1.180 UIU/ML [id number] 00:00:00* Test Item Value Reference Range Interpretation Comme nts TSH, THIRD GENERATION (test code = 2821) 1.180 UIU/ML H. PYLORI (BREATH)2021-01-20 00:00:00* Test Item Value Reference Range Interpretation Comme nts H. PYLORI (BREATH) (test cod e = 15997) POSITIVE CBC W/AUTO [id number] 00:00:00* Test Item Value Reference Range Interpretation [...] code = 1015) 387 K/UL CBC W/AUTO [id number] 00:00:00* Test Item Value Reference Range Interpretation [...] (test code = 1015) 387 K/UL HEMOGLOBIN [id number] 00:00:00* Test Item Value Reference Range Interpretation Comme [facility] HEMOGLOBIN A1c (test code = 08924) 11.1 % HEMOGLOBIN [id number] 00:00:00* Test Item Value Reference Range Interpretation Comme nts HEMOGLOBIN A1c (test code = 29021) 11.1 % LIPID [id number] 00:00:00* Test Item Value Reference Range Interpretation Comme nts CHOLESTEROL (test code = 2210) 185 MG/DL TRIGLYCERIDES (test code = 2232) 190 MG/DL HDL CHOLESTEROL (test code = 2220) 49 MG/DL CALC LDL CHOL (test code = 2237) 105 MG/DL RISK RATIO LDL/HDL (test cod e = 2238) 2.14 RATIO COMPREHENSIVE METABOLIC [id number] 00:00:00* Test Item Value Reference Range Interpretation Comme nts GLUCOSE (test code = 2217) 371 MG/DL BUN (test code = 2208) 11 MG/DL CREATININE (test code = 2214) 0.61 MG/DL eGFR AMER. (test cod e = 71557) 123 ML/MIN/1.73 eGFR NON- AMER. (test code = 58926) 106 ML/MIN/1.73 CALC BUN/CREAT (test code = [...] ALT (test code = 2219) 20 U/L [id number] 00:00:00* Test Item Value Reference Range Interpretation Comme nts TSH, THIRD GENERATION (test code = 2821) 1.180 UIU/ML [id number] 00:00:00* Test Item Value Reference Range Interpretation Comme nts TSH, THIRD GENERATION (test code = 2821) 1.180 UIU/ML H. PYLORI (BREATH)2021-01-20 00:00:00* Test Item Value Reference Range Interpretation Comme nts H. PYLORI (BREATH) (test cod e = 28835) POSITIVE H. PYLORI (BREATH)2021-01-20 00:00:00* Test Item Value Reference Range Interpretation Comme nts H. PYLORI (BREATH) (test cod e = 15192) POSITIVE CBC W/AUTO [id number] 00:00:00* Test Item Value Reference Range Interpretation [...] code = 1015) 387 K/UL CBC W/AUTO [id number] 00:00:00* Test Item Value Reference Range Interpretation [...] code = 1015) 387 K/UL CBC W/AUTO [id number] 00:00:00* Test Item Value Reference Range Interpretation [...] (test code = 1015) 387 K/UL HEMOGLOBIN [id number] 00:00:00* Test Item Value Reference Range Interpretation Comme nts HEMOGLOBIN A1c (test code = 24184) 11.1 % HEMOGLOBIN [id number] 00:00:00* Test Item Value Reference Range Interpretation Comme nts HEMOGLOBIN A1c (test code = 73828) 11.1 % HEMOGLOBIN [id number] 00:00:00* Test Item Value Reference Range Interpretation Comme nts HEMOGLOBIN A1c (test code = 60306) 11.1 % LIPID [id number] 00:00:00* Test Item Value Reference Range Interpretation Comme nts CHOLESTEROL (test code = 2210) 185 MG/DL TRIGLYCERIDES (test code = 2232) 190 MG/DL HDL CHOLESTEROL (test code = 2220) 49 MG/DL CALC LDL CHOL (test code = 2237) 105 MG/DL RISK RATIO LDL/HDL (test cod e = 2238) 2.14 RATIO LIPID [id number] 00:00:00* Test Item Value Reference Range Interpretation Comme nts CHOLESTEROL (test code = 2210) 185 MG/DL TRIGLYCERIDES (test code = 2232) 190 MG/DL HDL CHOLESTEROL (test code = 2220) 49 MG/DL CALC LDL CHOL (test code = 2237) 105 MG/DL RISK RATIO LDL/HDL (test cod e = 2238) 2.14 RATIO COMPREHENSIVE METABOLIC [id number] 00:00:00* Test Item Value Reference Range Interpretation Comme nts GLUCOSE (test code = 2217) 371 MG/DL BUN (test code = 2208) 11 MG/DL CREATININE (test code = 2214) 0.61 MG/DL eGFR AMER. (test cod e = 28100) 123 ML/MIN/1.73 eGFR NON- AMER. (test code = 56201) 106 ML/MIN/1.73 CALC BUN/CREAT (test code = [...] code = 2219) 20 U/L COMPREHENSIVE METABOLIC [id number] 00:00:00* Test Item Value Reference Range Interpretation Comme nts GLUCOSE (test code = 2217) 371 MG/DL BUN (test code = 2208) 11 MG/DL CREATININE (test code = 2214) 0.61 MG/DL eGFR AMER. (test cod e = 06816) 123 ML/MIN/1.73 eGFR NON- AMER. (test code = 09156) 106 ML/MIN/1.73 CALC BUN/CREAT (test code = [...] ALT (test code = 2219) 20 U/L [id number] 00:00:00* Test Item Value Reference Range Interpretation Comme nts TSH, THIRD GENERATION (test code = 2821) 1.180 UIU/ML [id number] 00:00:00* Test Item Value Reference Range Interpretation Comme nts TSH, THIRD GENERATION (test code = 2821) 1.180 UIU/ML [id number] 00:00:00* Test Item Value Reference Range Interpretation Comme nts TSH, THIRD GENERATION (test code = 2821) 1.180 UIU/ML H. PYLORI (BREATH)2021-01-20 00:00:00* Test Item Value Reference Range Interpretation Comme nts H. PYLORI (BREATH) (test cod e = 00494) POSITIVE H. PYLORI (BREATH)2021-01-20 00:00:00* Test Item Value Reference Range Interpretation Comme nts H. PYLORI (BREATH) (test cod e = 38691) POSITIVE CBC W/AUTO [id number] 00:00:00* Test Item Value Reference Range Interpretation [...] code = 1015) 387 K/UL CBC W/AUTO [id number] 00:00:00* Test Item Value Reference Range Interpretation [...] code = 1015) 387 K/UL CBC W/AUTO [id number] 00:00:00* Test Item Value Reference Range Interpretation [...] (test code = 1015) 387 K/UL HEMOGLOBIN [id number] 00:00:00* Test Item Value Reference Range Interpretation Comme nts HEMOGLOBIN A1c (test code = 12824) 11.1 % HEMOGLOBIN [id number] 00:00:00* Test Item Value Reference Range Interpretation Comme nts HEMOGLOBIN A1c (test code = 39980) 11.1 % HEMOGLOBIN [id number] 00:00:00* Test Item Value Reference Range Interpretation Comme nts HEMOGLOBIN A1c (test code = 51078) 11.1 % LIPID [id number] 00:00:00* Test Item Value Reference Range Interpretation [...] SARS-CoV-2 Rapid ID NOW (test code = 78960-2) Not Detected Not Detected MATTHEW (test code = MATTHEW) ID NOW COVID-19 As say is an isothermal nucleic acid amplification test intended for the qualitative detection of nucleic acid from SARS-CoV-2 viral RNA in nasopharyngeal ([facility]ER) specimens. It is used under Emergency Use [...] clinically indicated. Lab Interpretation (test code = 19323-4) Normal [facility] CenterUrinalysis2021[facility] 18:20:17* Test Item Value Reference Range Interpretation Comme nts APPEARANCE (test code = 4264100029) Clear Clear COLOR (test code = 5003866476) Yellow Yellow PH (test code = 8353817950) 4.8-8.0 SP GRAVITY (test code = 7770954253) 1.003-1.030 H GLU U QUAL (test code = 5977664509) 500 mg/dL Normal A BLOOD (test code = 7111334507) Negative Negative KETONES (test code = 7961485684) 5 mg/dL Negative A PROTEIN (test code = 2887-8) 30 mg/dL Negative A UROBILIN (test code = 3967105700) Normal Normal BILIRUBIN (test code = 3018169968) Negative Negative NITRITE (test code = 9897481885) Negative Negative LEUK CHASITY (test code = 9238134978) 25/uL Negative A RBC/HPF (test code = 9620790548) See_Comment H [Automated [employer] [facility]] The system which generated this result transmitted reference range: 0 - 3 HPF. The reference range was not used to interpret this result as normal/abnormal. WBC/HPF (test code = 6492033083) See_Comment [Automated messa ge] The system which generated this result transmitted reference range: 0 - 5 HPF. The reference range was not used to interpret this result as normal/abnormal. BACTERIA (test code = 7147618435) Few Negative A SQ EPITH (test code = 4913865480) HPF Lab Interpretation (test code = 11344-6) [facility]normal [facility] CenterHepatic Function Panel (ALB, T.PRO, BILI T, BU/BC, ALT, AST, ALK PHOS)2020-12-17 18:07:11* Test Item Value Reference Range Interpretation Comme nts TOTAL BILI (test code = 6930104974) 0.6 mg/dL 0.1-1.1 BILI UNCON (test code = 6022853003) 0.5 mg/dL 0.1-1.1 BILI CONJ (test code = 1578047748) 0.0 mg/dL 0.0-0.3 T PROTEIN (test code = 2651890124) 8.2 g/dL 6.3-8.2 ALBUMIN (test code = 2938462182) 4.4 g/dL 3.5-5.0 ALK PHOS (test code = 9676646932) 134 U/L 34-122 H ALTv (test code = 1742-6) 29 U/L 5-35 AST(SGOT) (test code = 2206885443) 35 U/L 13-40 Lab Interpretation (test cod e = 20008-7) [facility]normal [facility] CenterBasic Metabolic Panel (NA, K, CL, CO2, GLUCOSE, BUN, CREATININE, CA)2020-12-17 18:06:51* Test Item Value Reference Range Interpretation Comme nts NA (test code = 8184629362) 135 mmol/L 135-145 K (test code = 8123742316) 4.4 mmol/L 3.5-5.0 CL (test code = 0502135417) 96 mmol/L 98-108 L CO2 TOTAL (test code = 1113868433) 31 mmol/L 23-31 AGAP (test code = 8172536565) 2-16 BUN (test code = 6619992242) 13 mg/dL 7-23 GLUCOSE (test code = 5057580061) 370 mg/dL 70-110 H CREATININE (test code = 9332945419) 0.50 mg/dL 0.50-1.04 CALCIUM (test code = 0106710605) 9.2 mg/dL 8.6-10.6 eGFR Calculation (Non-) (test code = 4647343681) mL/min/1.73m2 eGFR Calculation () (test code = 0616991890) mL/min/1.73m2 MATTHEW (test code = MATTHEW) Association [...] imaging tests). Lab Interpretation (test code = 06345-7) [facility]normal [facility] CenterLipase [id number] 18:06:51* Test Item Value Reference Range Interpretation Comme nts LIPASE (test code = 6496170791) 169 U/L 0-220 Lab Interpretation (test cod e = 12605-1) Normal [facility]eraPTT2021-[facility] 18:05:30* Test Item Value Reference Range Interpretation Comme nts APTT Patient (test code = 3173-2) See_Comment [Automated message] The system which generated this result transmitted reference range: 23 - 38 Seconds. The reference range was not used to interpret this result as normal/abnormal. MATTHEW (test code = MATTHEW) The [facility] patient population mean normal value for aPTT is 30 seconds. Lab Interpretation (test code = 14197-6) Normal [facility] CenterProthrombin Time (PT) / [id number] 18:03:29 * Test Item Value Reference Range Interpretation Comme [facility] PROTIME PATIENT (test code = 5964-2) See_Comment [Automated [employer]] The system which generated this result transmitted reference range: 12.0 - 14.7 Seconds. The reference range was not used to interpret this result as normal/abnormal. INR (test code = 6301-6) Normal INR <1.1; Warfarin Therapeutic range 2.0 to 3.0 or 2.5 to 3.5, depending upon the indications. Lab Interpretation (test code = 70379-2) Normal [facility] CenterCBC with Emxtctaregwn4586-29-66 17:55:29* Test Item Value Reference Range Interpretation Comme [facility] WBC (test code = 6690-2) See_Comment [Automated [employer] [facility]] The system which generated this result transmitted reference range: 4.30 - 11.10 10*3/?L. The reference range was not used to interpret this result as normal/abnormal. RBC (test code = 789-8) See_Comment [Automated [employer]] The system which generated this result [...] 32.8 g/dL 31.6-35.1 RDW-SD (test code = 26389-5) 39.1 fL 39.0-49.9 RDW-CV (test code = 788-0) 12.3 % 12.0-15.5 PLT (test code = 777-3) See_Comment H [Automated messa ge] The system which generated this result transmitted reference range: 166 - 358 10*3/?L. The reference range was not used to interpret this result as normal/abnormal. MPV (test code = 00051-5) 10.3 fL 9.5-12.9 NRBC/100 WBC (test code = 1377923153) See_Comment [Automated me ssage] The system which generated this result transmitted reference range: 0.0 - 10.0 /100 WBCs. The reference range was not used to interpret this result as normal/abnormal. NRBC x10^3 (test code = 4532384800) <0.01 See_Comment [Automated messa ge] The system which generated this result transmitted reference range: 10*3/?L. The reference range was not used to interpret this result as normal/abnormal. GRAN MAT (NEUT) % (test code = 770-8) 72.0 % IMM GRAN % (test code = 7077388148) 0.40 % LYMPH % (test code = 736-9) 18.4 % MONO % (test code = 5905-5) 6.4 % EOS % (test code = 713-8) 2.2 % BASO % (test code = 706-2) 0.6 % GRAN MAT x10^3(ANC) (test code = 4975788773) 7.61 10*3/uL 1.88-7.09 H IMM GRAN x10^3 (test code = 6472452937) 0.04 10*3/uL 0.00-0.06 LYMPH x10^3 (test code = 731-0) 1.94 10*3/uL 1.32-3.29 MONO x10^3 (test code = 742-7) 0.68 10*3/uL 0.33-0.92 EOS x10^3 (test code = 711-2) 0.23 10*3/uL 0.03-0.39 BASO x10^3 (test code = 704-7) 0.06 10*3/uL 0.01-0.07 Lab Interpretation (test code = 29091-5) [facility]normal [facility] CenterXR CHEST 1 [id number] 14:56:41.No acute cardiopulmonary abnormality Preliminary Report Dictated [...] this study and agree with the abovereport. [facility] CenterPOCT [id number] 14:14:00* Test Item Value Reference Range Interpretation Comme nts POCT PREG (test code = 1605) negative On board controls acceptable with C Line (test code = 3574) present Lab Interpretation (test cod e = 77825-5) Normal [facility] CenterD-LZLOC7084-93-33 13:53:00* Test Item Value Reference Range Interpretation Comments D-DIMER (test code = 4056756922) See_Comment H [Automated message] The system which [...] a diagnosis. Lab Interpretation (test code = 23623-2) Abnormal [facility] CenterPregnancy Test, [id number] 13:40:00* Test Item Value Reference Range Interpretation Comme nts PREG SERUM (test code = 1239277194) Negative MATTHEW (test code = MATTHEW) Less than 10 IU/L. ?If low titer or ectopic is suspected, resubmit specimen in 48-72 hours. [facility] CenterTroponin [id number] 13:36:00* Test Item Value Reference Range Interpretation Comme nts TROPONIN I (test code = 2246221032) <0.012 See_Comment [Automated message] The system which [...] biotin. ? Lab Interpretation (test code = 10311-8) Normal [facility] CenteraPTT2021-01-24 13:35:00* Test Item Value Reference Range Interpretation Comme [facility] APTT Patient (test code = 3173-2) See_Comment [Automated message] The system which generated this result transmitted reference range: 23 - 38 Seconds. The reference range was not used to interpret this result as normal/abnormal. MATTHEW (test code = MATTHEW) The [facility] patient population mean normal value for aPTT is 30 seconds. Lab Interpretation (test code = 09331-2) Normal [facility] CenterProthrombin Time (PT) / [id number] 13:33:00 * Test Item Value Reference Range [...] the indications. Lab Interpretation (test code = 43526-2) Normal [facility] CenterBasi Metabolic Panel (NA, K, CL, CO2, GLUCOSE, BUN, CREATININE, CA)2020-10-30 13:25:00* Test Item Value Reference Range Interpretation Comme [facility] NA (test code = 5298116847) 137 mmol/L 135-145 K (test code = 9036349964) 4.4 mmol/L 3.5-5 CL (test code = 7180638081) 101 mmol/L 98-108 CO2 TOTAL (test code = 5950817503) 28 mmol/L 23-31 AGAP (test code = 2481182001) 2-16 BUN (test code = 9877039070) 12 mg/dL 7-23 GLUCOSE (test code = 0419058288) 195 mg/dL 70-110 H CREATININE (test code = 3529814856) 0.42 mg/dL 0.5-1.04 L CALCIUM (test code = 3154166992) 9.2 mg/dL 8.6-10.6 eGFR Calculation (Non-) (test code = 6229978985) mL/min/1.73m2 eGFR Calculation () (test code = 9548154618) mL/min/1.73m2 MATTHEW (test code = MATTHEW) Association [...] imaging tests). Lab Interpretation (test code = 72492-0) Abnormal [facility] CenterHepatic Function Panel (ALB, T.PRO, BILI T, BU/BC, ALT, AST, ALK PHOS)2020-10-30 13:25:00* Test Item Value Reference Range Interpretation Comme nts TOTAL BILI (test code = 5628517482) 1.1 mg/dL 0.1-1.1 BILI UNCON (test code = 4771230501) 0.8 mg/dL 0.1-1.1 BILI CONJ (test code = 9497093509) 0.0 mg/dL 0-0.3 T PROTEIN (test code = 8010938769) 8.2 g/dL 6.3-8.2 ALBUMIN (test code = 6342811205) 4.2 g/dL 3.5-5 ALK PHOS (test code = 2452234550) 109 U/L 34-122 ALTv (test code = 1742-6) 23 U/L 5-35 AST(SGOT) (test code = 3515035433) 35 U/L 13-40 Lab Interpretation (test cod e = 26737-9) Normal [facility] CenterADC,CLC OR LCC ONLY - INFLUENZA A & B DIRECT [id number] 13:21:00* Test Item Value Reference Range Interpretation Comme nts Influenza A (test code = 51398-7) Negative Negative Influenza B (test code = 03219-9) Negative Negative Lab Interpretation (test cod e = 07044-0) Normal [facility] STREP SCREEN FOR GROUP [id number] 13:21:00* Test Item Value Reference Range Interpretation Comme nts Streptococcus pyogenes (grou p A) antigen (test code = 61146-5) Negative Negative Lab Interpretation (test cod e = 08594-9) Normal [facility] CenterCOVID-19 (ID NOW RAPID TESTING)2020-10-30 13:18:00* Test Item Value Reference Range Interpretation Comme nts SARS-CoV-2 Rapid ID NOW (test code = 41447-0) Not Detected Not Detected MATTHEW (test code = MATTHEW) ID NOW COVID-19 As say is an isothermal nucleic acid amplification test intended for the qualitative detection of nucleic acid from SARS-CoV-2 viral RNA in nasopharyngeal (SASH MAKER) specimens. It is used under Emergency Use [...] clinically indicated. Lab Interpretation (test code = 77311-9) Normal [facility] with [id number] 13:05:00* Test Item Value Reference Range Interpretation [...] 32.4 g/dL 31.6-35.1 RDW-SD (test code = 09151-9) 41.0 fL 39-49.9 RDW-CV (test code = 788-0) 12.4 % 12-15.5 PLT (test code = 777-3) See_Comment H [Automated [employer] [facility]] The system which generated this result transmitted reference range: 166 - 358 10*3/?L. The reference range was not used to interpret this result as normal/abnormal. MPV (test code = 04043-7) 10.5 fL 9.5-12.9 NRBC/100 WBC (test code = 3820941264) See_Comment [Automated [employer] ssage] The system which generated this result transmitted reference range: 0.0 - 10.0 /100 WBCs. The reference range was not used to interpret this result as normal/abnormal. NRBC x10^3 (test code = 2428841511) <0.01 See_Comment [Automated messa ge] The system which generated this result transmitted reference range: 10*3/?L. The reference range was not used to interpret this result as normal/abnormal. GRAN MAT (NEUT) % (test code = 770-8) 66.0 % IMM GRAN % (test code = 3839428940) 0.40 % LYMPH % (test code = 736-9) 19.5 % MONO % (test code = 5905-5) 9.3 % EOS % (test code = 713-8) 4.2 % BASO % (test code = 706-2) 0.6 % GRAN MAT x10^3(ANC) (test code = 7815159543) 7.63 10*3/uL 1.88-7.09 H IMM GRAN x10^3 (test code = 6667265010) 0.05 10*3/uL 0-0.06 LYMPH x10^3 (test code = 731-0) 2.26 10*3/uL 1.32-3.29 MONO x10^3 (test code = 742-7) 1.08 10*3/uL 0.33-0.92 H EOS x10^3 (test code = 711-2) 0.49 10*3/uL 0.03-0.39 H BASO x10^3 (test code = 704-7) 0.07 10*3/uL 0.01-0.07 Lab Interpretation (test code = 30074-8) Abnormal [facility] CenterMAGNESIUM [ADDED]2020-10-12 00:00:00* Test Item Value [...] MG/DL eGFR AMER. (test cod e = 49368) 112 ML/MIN/1.73 eGFR NON- AMER. (test code = 38792) 97 ML/MIN/1.73 CALC BUN/CREAT (test code = [...] MG/DL eGFR AMER. (test cod e = 92371) 112 ML/MIN/1.73 eGFR NON- AMER. (test code = 22982) 97 ML/MIN/1.73 CALC BUN/CREAT (test code = [...] MG/DL eGFR AMER. (test cod e = 86970) 112 ML/MIN/1.73 eGFR NON- AMER. (test code = 61365) 97 ML/MIN/1.73 CALC BUN/CREAT (test code = [...] MG/DL eGFR AMER. (test cod e = 38693) 112 ML/MIN/1.73 eGFR NON- AMER. (test code = 75341) 97 ML/MIN/1.73 CALC BUN/CREAT (test code = [...] MG/DL eGFR AMER. (test cod e = 40077) 112 ML/MIN/1.73 eGFR NON- AMER. (test code = 91792) 97 ML/MIN/1.73 CALC BUN/CREAT (test code = [...] MG/DL eGFR AMER. (test cod e = 17022) 112 ML/MIN/1.73 eGFR NON- AMER. (test code = 43985) 97 ML/MIN/1.73 CALC BUN/CREAT (test code = [...] MG/DL eGFR AMER. (test cod e = 00366) 112 ML/MIN/1.73 eGFR NON- AMER. (test code = 60272) 97 ML/MIN/1.73 CALC BUN/CREAT (test code = [...] nts SARS-CoV-2 INTERPRETATION (t est code = 21738) NEGATIVE SOURCE (test code = 35505) NOT SPECIFIED SARS-CoV-2 (COVID-19) by RT-PCR (HIGH RISK)2020-10-06 00:00:00* Test Item Value Reference Range Interpretation Comme nts SARS-CoV-2 INTERPRETATION (t est code = 84961) NEGATIVE SOURCE (test code = 30544) NOT SPECIFIED SARS-CoV-2 (COVID-19) by RT-PCR (HIGH RISK)2020-10-06 00:00:00* Test Item Value Reference Range Interpretation Comme nts SARS-CoV-2 INTERPRETATION (t est code = 13402) NEGATIVE SOURCE (test code = 09224) NOT SPECIFIED SARS-CoV-2 (COVID-19) by RT-PCR (HIGH RISK)2020-10-06 00:00:00* Test Item Value Reference Range Interpretation Comme nts SARS-CoV-2 INTERPRETATION (t est code = 51335) NEGATIVE SOURCE (test code = 82171) NOT SPECIFIED SARS-CoV-2 (COVID-19) by RT-PCR (HIGH RISK)2020-10-06 00:00:00* Test Item Value Reference Range Interpretation Comme nts SARS-CoV-2 INTERPRETATION (t est code = 71564) NEGATIVE SOURCE (test code = 85083) NOT SPECIFIED SARS-CoV-2 (COVID-19) by RT-PCR (HIGH RISK)2020-10-06 00:00:00* Test Item Value Reference Range Interpretation Comme nts SARS-CoV-2 INTERPRETATION (t est code = 90272) NEGATIVE SOURCE (test code = 06502) NOT SPECIFIED SARS-CoV-2 (COVID-19) by RT-PCR (HIGH RISK)2020-10-06 00:00:00* Test Item Value Reference Range Interpretation Comme nts SARS-CoV-2 INTERPRETATION (t est code = 33300) NEGATIVE SOURCE (test code = 46414) NOT SPECIFIED XR CHEST 1 [id number] 00:19:17Grossly unchanged streaky opacities associated with known [...] SOB TECHNIQUE: Single frontal viewCOMPARISON: Chest radiograph 11/26/2020FINDINGS:Bilateral streaky opacities are grossly unchanged from the priorradiograph. The lungs remain moderately underinflated and are withoutpleural effusion or pneumothorax.The cardiomediastinal silhouette is normal. No acute osseous abnormality is present. IMPRESSIONGrossly unchanged streaky opacities associated with known COVID 19pneumonia.Preliminary Report Dictated by Resident: Hugh Robertson, Gurjit Santamaria MD., have reviewed this study and agree with the abovereport.[facility] CenterURINALYSIS 2020-09-26 23:37:00* Test Item Value Reference Range Interpretation Comme nts APPEARANCE (test code = 8703491778) Clear Clear COLOR (test code = 3516553638) Yellow Yellow PH (test code = 0171182442) 4.8-8.0 SP GRAVITY (test code = 8587565518) 1.003-1.030 GLU U QUAL (test code = 1309212885) Normal Normal BLOOD (test code = 9237400488) Negative Negative KETONES (test code = 5401077999) Negative Negative PROTEIN (test code = 2887-8) Negative Negative UROBILIN (test code = 1769245638) Normal Normal BILIRUBIN (test code = 3332044980) Negative Negative NITRITE (test code = 5724907107) Negative Negative LEUK CHASITY (test code = 6593624495) 500/uL Negative A RBC/HPF (test code = 4189242001) See_Comment [Automated [employer]] The system which generated this result transmitted reference range: 0 - 3 HPF. The reference range was not used to interpret this result as normal/abnormal. WBC/HPF (test code = 6406355719) See_Comment H [Automated [employer]] The system which generated this result transmitted reference range: 0 - 5 HPF. The reference range was not used to interpret this result as normal/abnormal. BACTERIA (test code = 7327092142) Few Negative A MUCOUS (test code = 1680627777) Slight Negative LPF A SQ EPITH (test code = 4991429822) HPF TRANS EPI (test code = 5916644169) <1 See_Comment [Automated [employer]] The system which generated this result transmitted reference range: <=1 HPF. The reference range was not used to interpret this result as normal/abnormal. Lab Interpretation (test code = 37493-0) [facility]normal [facility] CenterTROPONIN [id number] 22:39:00* Test Item Value Reference Range Interpretation Comme nts TROPONIN I (test code = 7203812514) <0.012 See_Comment [Automated message] The system which [...] biotin. ? Lab Interpretation (test code = 75600-5) Normal [facility] CenterN-TERMINAL RBL-[id number] 22:36:00* Test Item Value Reference Range Interpretation Comme nts NT-proBNP (test code = 9511887302) 54 pg/mL See_Comment [Automated message] The system which generated this result transmitted reference range: <=125. The reference range was not used to interpret this result as normal/abnormal. MATTHEW (test code = MATTHEW) Biotin has been reported to cause a negative bias, interpret results relative to patient's use of biotin. Lab Interpretation (test code = 58799-4) Normal [facility] CenterCOMP. METABOLIC PANEL (71174)2020-09-26 22:28:00* Test Item Value Reference Range Interpretation Comme nts NA (test code = 0010152499) 137 mmol/L 135-145 K (test code = 1629086575) 3.2 mmol/L 3.5-5 L CL (test code = 3185731307) 97 mmol/L 98-108 L CO2 TOTAL (test code = 1497501073) 30 mmol/L 23-31 AGAP (test code = 5935207316) 2-16 BUN (test code = 7513792401) 9 mg/dL 7-23 GLUCOSE (test code = 2761914900) 191 mg/dL 70-110 H CREATININE (test code = 1090063999) 0.52 mg/dL 0.5-1.04 TOTAL BILI (test code = 3630845846) 0.8 mg/dL 0.1-1.1 CALCIUM (test code = 2941332639) 8.9 mg/dL 8.6-10.6 T PROTEIN (test code = 6606911252) 7.4 g/dL 6.3-8.2 ALBUMIN (test code = 1983321325) 4.1 g/dL 3.5-5 ALK PHOS (test code = 0693137826) 98 U/L 34-122 ALTv (test code = 1742-6) 19 U/L 5-35 AST(SGOT) (test code = 0415160026) 21 U/L 13-40 eGFR Calculation (Non-) (test code = 6719056148) mL/min/1.73m2 eGFR Calculation () (test code = 3256677270) mL/min/1.73m2 MATTHEW (test code = MATTHEW) Association [...] imaging tests). Lab Interpretation (test code = 03922-9) Abnormal [facility] CenterLIPASE2020-12-21 22:27:00* Test Item Value Reference Range Interpretation Comme nts LIPASE (test code = 3434817063) 90 U/L 0-220 Lab Interpretation (test cod e = 48473-2) Normal [facility] WITH [id number] 22:26:00* Test Item Value Reference Range Interpretation Comme nts WBC (test code = 6690-2) See_Comment [Automated [employer]] The system which generated this result transmitted reference range: 4.30 - 11.10 10*3/?L. The reference range was not used to interpret this result as normal/abnormal. RBC (test code = 789-8) See_Comment [Automated [employer]] The system which generated this result transmitted [...] 32.6 g/dL 31.6-35.1 RDW-SD (test code = 24737-1) 40.6 fL 39-49.9 RDW-CV (test code = 788-0) 12.4 % 12-15.5 PLT (test code = 777-3) See_Comment H [Automated messa ge] The system which generated this result transmitted reference range: 166 - 358 10*3/?L. The reference range was not used to interpret this result as normal/abnormal. MPV (test code = 96300-8) 10.3 fL 9.5-12.9 NRBC/100 WBC (test code = 9019052733) See_Comment [Automated me ssage] The system which generated this result transmitted reference range: 0.0 - 10.0 /100 WBCs. The reference range was not used to interpret this result as normal/abnormal. NRBC x10^3 (test code = 5468437682) <0.01 See_Comment [Automated messa ge] The system which generated this result transmitted reference range: 10*3/?L. The reference range was not used to interpret this result as normal/abnormal. GRAN MAT (NEUT) % (test code = 770-8) 65.8 % IMM GRAN % (test code = 4234539631) 0.50 % LYMPH % (test code = 736-9) 22.4 % MONO % (test code = 5905-5) 8.9 % EOS % (test code = 713-8) 2.1 % BASO % (test code = 706-2) 0.3 % GRAN MAT x10^3(ANC) (test code = 8915913413) 7.21 10*3/uL 1.88-7.09 H IMM GRAN x10^3 (test code = 2183757775) 0.06 10*3/uL 0-0.06 LYMPH x10^3 (test code = 731-0) 2.45 10*3/uL 1.32-3.29 MONO x10^3 (test code = 742-7) 0.98 10*3/uL 0.33-0.92 H EOS x10^3 (test code = 711-2) 0.23 10*3/uL 0.03-0.39 BASO x10^3 (test code = 704-7) 0.03 10*3/uL 0.01-0.07 Lab Interpretation (test code = 88124-3) Abnormal [facility] (COVID-19) by RT-PCR (HIGH RISK) 2020-09-25 00:00:00* Test Item Value Reference Range Interpretation Comme nts SARS-CoV-2 INTERPRETATION (t est code = 62885) POSITIVE SOURCE (test code = 10129) NOT SPECIFIED SARS-CoV-2 (COVID-19) by RT-PCR (HIGH RISK)2020-09-25 00:00:00* Test Item Value Reference Range Interpretation Comme nts SARS-CoV-2 INTERPRETATION (t est code = 59836) POSITIVE SOURCE (test code = 58269) NOT SPECIFIED SARS-CoV-2 (COVID-19) by RT-PCR (HIGH RISK)2020-09-25 00:00:00* Test Item Value Reference Range Interpretation Comme nts SARS-CoV-2 INTERPRETATION (t est code = 76874) POSITIVE SOURCE (test code = 29510) NOT SPECIFIED SARS-CoV-2 (COVID-19) by RT-PCR (HIGH RISK)2020-09-25 00:00:00* Test Item Value Reference Range Interpretation Comme nts SARS-CoV-2 INTERPRETATION (t est code = 24582) POSITIVE SOURCE (test code = 76996) NOT SPECIFIED SARS-CoV-2 (COVID-19) by RT-PCR (HIGH RISK)2020-09-25 00:00:00* Test Item Value Reference Range Interpretation Comme nts SARS-CoV-2 INTERPRETATION (t est code = 98282) POSITIVE SOURCE (test code = 51493) NOT SPECIFIED SARS-CoV-2 (COVID-19) by RT-PCR (HIGH RISK)2020-09-25 00:00:00* Test Item Value Reference Range Interpretation Comme nts SARS-CoV-2 INTERPRETATION (t est code = 51112) POSITIVE SOURCE (test code = 09626) NOT SPECIFIED SARS-CoV-2 (COVID-19) by RT-PCR (HIGH RISK)2020-09-25 00:00:00* Test Item Value Reference Range Interpretation Comme nts SARS-CoV-2 INTERPRETATION (t est code = 08090) POSITIVE SOURCE (test code = 82123) NOT SPECIFIED CT CHEST PULMONARY [id number] 02:11:181. ?No acute pulmonary embolism. PROCEDURE: CT [...] Other Lines/Tubes/Devices/Hardware: None Visualized upper abdomen: Unremarkable. Scmb, Radiant Results Inft User - 09/01/2020 8:12 [...] abdomen: Unremarkable. IMPRESSION1. No acute pulmonary embolism. [facility] [id number] 01:20:00* Test Item Value Reference Range Interpretation Comments D-DIMER (test code = 6750136552) See_Comment H [Automated message] The system which [...] a diagnosis. Lab Interpretation (test code = 90159-1) [facility] 1 [id number] 23:44:22Slightly suboptimal lung volumes with perihilar streaky [...] reviewed this study and agree withthe above report.[facility] CenterCOVID-19 (ID NOW RAPID TESTING)2020-09-01 23:26:00* Test Item Value Reference Range Interpretation Comme nts SARS-CoV-2 Rapid ID NOW (test code = 88329-8) Positive Not Detected A MATTHEW (test code = MATTHEW) ID NOW COVID-19 As say is an isothermal nucleic acid amplification test intended for the qualitative detection of nucleic acid from SARS-CoV-2 viral RNA in nasopharyngeal (SASH MAKER) specimens. It is used under Emergency Use [...] clinically indicated. Lab Interpretation (test code = 82862-1) Abnormal [facility] CenterADC,CLC OR L[facility] ONLY - INFLUENZA A & B DIRECT [id number] 23:26:00* Test Item Value Reference Range Interpretation Comme nts Influenza A (test code = 41053-6) Negative Negative Influenza B (test code = 68891-6) Negative Negative Lab Interpretation (test cod e = 14437-6) [facility] 23[facility]22:00* Test Item Value Reference Range Interpretation Comme nts APPEARANCE (test code = 9885579515) Clear Clear COLOR (test code = 4539981171) Yellow Yellow PH (test code = 1133712427) 4.8-8.0 SP GRAVITY (test code = 9057150925) 1.003-1.030 GLU U QUAL (test code = 2507579613) 500 mg/dL Normal A BLOOD (test code = 0882439185) Negative Negative KETONES (test code = 7523000717) Negative Negative PROTEIN (test code = 2887-8) 30 mg/dL Negative A UROBILIN (test code = 4901139665) Normal Normal BILIRUBIN (test code = 9945470961) Negative Negative NITRITE (test code = 4083285470) Negative Negative LEUK CHASITY (test code = 7400965445) 250/uL Negative A RBC/HPF (test code = 3775693624) See_Comment H [Automated [employer]] The system which generated this result transmitted reference range: 0 - 3 HPF. The reference range was not used to interpret this result as normal/abnormal. WBC/HPF (test code = 1396286999) See_Comment [Automated [employer]] The system which generated this result transmitted reference range: 0 - 5 HPF. The reference range was not used to interpret this result as normal/abnormal. BACTERIA (test code = 4254169401) Few Negative A MUCOUS (test code = 3520184785) Slight Negative LPF A SQ EPITH (test code = 8500260116) HPF Lab Interpretation (test code = 95717-5) [id number] 23:20:00* Test Item Value Reference Range Interpretation Comme nts NT-proBNP (test code = 0380947151) 38 pg/mL See_Comment [Automated message] The system which generated this result transmitted reference range: <=125. The reference range was not used to interpret this result as normal/abnormal. MATTHEW (test code = MATTHEW) Biotin has been reported to cause a negative bias, interpret results relative to patient's use of biotin. Lab Interpretation (test code = 12351-1) [facility]OL[facility] (89830)2020-09-01 23:12:00* Test Item Value Reference Range Interpretation Comme nts NA (test code = 1487734195) 137 mmol/L 135-145 K (test code = 7881634549) 3.9 mmol/L 3.5-5 CL (test code = 2988443550) 100 mmol/L 98-108 CO2 TOTAL (test code = 7157322476) 29 mmol/L 23-31 AGAP (test code = 1044079098) 2-16 BUN (test code = 2251430273) 17 mg/dL 7-23 GLUCOSE (test code = 6427470147) 174 mg/dL 70-110 H CREATININE (test code = 2702295141) 0.56 mg/dL 0.5-1.04 TOTAL BILI (test code = 2725265859) 0.6 mg/dL 0.1-1.1 CALCIUM (test code = 9839783221) 9.2 mg/dL 8.6-10.6 T PROTEIN (test code = 6927531492) 7.9 g/dL 6.3-8.2 ALBUMIN (test code = 9862326217) 4.3 g/dL 3.5-5 ALK PHOS (test code = 3197406432) 101 U/L 34-122 ALTv (test code = 1742-6) 32 U/L 5-35 AST(SGOT) (test code = 9372136369) 28 U/L 13-40 eGFR Calculation (Non-) (test code = 9087355161) mL/min/1.73m2 eGFR Calculation () (test code = 1760572268) mL/min/1.73m2 MATTHEW (test code = MATTHEW) Association [...] imaging tests). Lab Interpretation (test code = 46505-3) Abnormal [facility] WITH [id number] 23:01:00* Test Item Value Reference Range Interpretation Comme nts WBC (test code = 6690-2) See_Comment [[employer]] The system which generated this result transmitted reference range: 4.30 - 11.10 10*3/?L. The reference range was not used to interpret this result as normal/abnormal. RBC (test code = 789-8) See_Comment [[employer]] The system which generated this result transmitted [...] 32.9 g/dL 31.6-35.1 RDW-SD (test code = 53507-3) 41.6 fL 39-49.9 RDW-CV (test code = 788-0) 12.6 % 12-15.5 PLT (test code = 777-3) See_Comment [Automated [employer]] The system which generated this result transmitted reference range: 166 - 358 10*3/?L. The reference range was not used to interpret this result as normal/abnormal. MPV (test code = 97040-2) 10.0 fL 9.5-12.9 NRBC/100 WBC (test code = 6198177939) See_Comment [Automated [employer]] The system which generated this result transmitted reference range: 0.0 - 10.0 /100 WBCs. The reference range was not used to interpret this result as normal/abnormal. NRBC x10^3 (test code = 7726342632) <0.01 See_Comment [Automated [employer]] The system which generated this result transmitted reference range: 10*3/?L. The reference range was not used to interpret this result as normal/abnormal. GRAN MAT (NEUT) % (test code = 770-8) 77.1 % IMM GRAN % (test code = 3044160071) 0.40 % LYMPH % (test code = 736-9) 10.9 % MONO % (test code = 5905-5) 10.4 % EOS % (test code = 713-8) 0.7 % BASO % (test code = 706-2) 0.5 % GRAN MAT x10^3(ANC) (test code = 7024710127) 6.59 10*3/uL 1.88-7.09 IMM GRAN x10^3 (test code = 5834310177) 0.03 10*3/uL 0-0.06 LYMPH x10^3 (test code = 731-0) 0.93 10*3/uL 1.32-3.29 L MONO x10^3 (test code = 742-7) 0.89 10*3/uL 0.33-0.92 EOS x10^3 (test code = 711-2) 0.06 10*3/uL 0.03-0.39 BASO x10^3 (test code = 704-7) 0.04 10*3/uL 0.01-0.07 Lab Interpretation (test code = 24159-8) [facility]normal [facility] CenterLahiic Acid Whole [id number] 22:55:00* Test Item Value Reference Range Interpretation Comme nts LACTIC ACID (test code = 4418744236) 1.33 mmol/L [facility]POCT [id number] 22:52:00* Test Item Value Reference Range Interpretation Comme nts POCT PREG (test code = 1605) negative On board controls acceptable with C Line (test code = 3574) present POCT PREG LOT # (test code = 3575) [id number] POCT PREG TEST DATE ( test code = 3576) 02/03/2022 Lab Interpretation (test cod e = 77396-0) [facility]URIC [id number] 00:00:00* Test Item Value Reference Range Interpretation Comme nts URIC ACID (test code = 2233) 3.6 MG/DL SUKHI REFLEX AUTOIMMUNE AB [id number] 00:00:00* Test Item Value Reference Range Interpretation Comme nts ANTI-NUCLEAR ANTIBODIES (michael t code = 3506) NEGATIVE SUKHI REFLEX AUTOIMMUNE AB [id number] 00:00:00* Test Item Value Reference Range Interpretation Comme nts ANTI-NUCLEAR ANTIBODIES (michael t code = 3506) NEGATIVE COMPREHENSIVE METABOLIC [id number] 00:00:00* Test Item Value Reference Range Interpretation Comme nts GLUCOSE (test code = 2217) 101 MG/DL BUN (test code = 2208) 10 MG/DL CREATININE (test code = 2214) 0.62 MG/DL eGFR AMER. (test cod e = 26563) 123 ML/MIN/1.73 eGFR NON- AMER. (test code = 30254) 106 ML/MIN/1.73 CALC BUN/CREAT (test code = [...] code = 2219) 196 U/L COMPREHENSIVE METABOLIC [id number] 00:00:00* Test Item Value Reference Range Interpretation Comme nts GLUCOSE (test code = 2217) 101 MG/DL BUN (test code = 2208) 10 MG/DL CREATININE (test code = 2214) 0.62 MG/DL eGFR AMER. (test cod e = 78780) 123 ML/MIN/1.73 eGFR NON- AMER. (test code = 44664) 106 ML/MIN/1.73 CALC BUN/CREAT (test code = [...] (test code = 2219) 196 U/L HEMOGLOBIN [id number] 00:00:00* Test Item Value Reference Range Interpretation Comme nts HEMOGLOBIN A1c (test code = 62150) 7.0 % HEMOGLOBIN [id number] 00:00:00* Test Item Value Reference Range Interpretation Comme nts HEMOGLOBIN A1c (test code = 64565) 7.0 % HEMOGLOBIN [id number] 00:00:00* Test Item Value Reference Range Interpretation Comme nts HEMOGLOBIN A1c (test code = 18375) 7.0 % C-REACTIVE [id number] 00:00:00* Test Item Value Reference Range Interpretation Comme nts C-REACTIVE PROTEIN (test cod e = 3513) 0.7 MG/DL C-REACTIVE [id number] 00:00:00* Test Item Value Reference Range Interpretation Comme nts C-REACTIVE PROTEIN (test cod e = 3513) 0.7 MG/DL SEDIMENTATION [id number] 00:00:00* Test Item Value Reference Range Interpretation Comme nts SEDIMENTATION RATE (test cod e = 1017) 22 MM/HOUR SEDIMENTATION [id number] 00:00:00* Test Item Value Reference Range Interpretation Comme nts SEDIMENTATION RATE (test cod e = 1017) 22 MM/HOUR URIC [id number] 00:00:00* Test Item Value Reference Range Interpretation Comme nts URIC ACID (test code = 2233) 3.6 MG/DL URIC [id number] 00:00:00* Test Item Value Reference Range Interpretation Comme nts URIC ACID (test code = 2233) 3.6 MG/DL SUKHI REFLEX AUTOIMMUNE AB [id number] 00:00:00* Test Item Value Reference Range Interpretation Comme nts ANTI-NUCLEAR ANTIBODIES (michael t code = 3506) NEGATIVE SUKHI REFLEX AUTOIMMUNE AB [id number] 00:00:00* Test Item Value Reference Range Interpretation Comme nts ANTI-NUCLEAR ANTIBODIES (michael t code = 3506) NEGATIVE COMPREHENSIVE METABOLIC [id number] 00:00:00* Test Item Value Reference Range Interpretation Comme nts GLUCOSE (test code = 2217) 101 MG/DL BUN (test code = 2208) 10 MG/DL CREATININE (test code = 2214) 0.62 MG/DL eGFR AMER. (test cod e = 13563) 123 ML/MIN/1.73 eGFR NON- AMER. (test code = 84647) 106 ML/MIN/1.73 CALC BUN/CREAT (test code = [...] code = 2219) 196 U/L COMPREHENSIVE METABOLIC [id number] 00:00:00* Test Item Value Reference Range Interpretation Comme nts GLUCOSE (test code = 2217) 101 MG/DL BUN (test code = 2208) 10 MG/DL CREATININE (test code = 2214) 0.62 MG/DL eGFR AMER. (test cod e = 87857) 123 ML/MIN/1.73 eGFR NON- AMER. (test code = 05359) 106 ML/MIN/1.73 CALC BUN/CREAT (test code = [...] (test code = 2219) 196 U/L HEMOGLOBIN [id number] 00:00:00* Test Item Value Reference Range Interpretation Comme nts HEMOGLOBIN A1c (test code = 46407) 7.0 % HEMOGLOBIN [id number] 00:00:00* Test Item Value Reference Range Interpretation Comme nts HEMOGLOBIN A1c (test code = 05714) 7.0 % C-REACTIVE [id number] 00:00:00* Test Item Value Reference Range Interpretation Comme nts C-REACTIVE PROTEIN (test cod e = 3513) 0.7 MG/DL SEDIMENTATION [id number] 00:00:00* Test Item Value Reference Range Interpretation Comme nts SEDIMENTATION RATE (test cod e = 1017) 22 MM/HOUR URIC [id number] 00:00:00* Test Item Value Reference Range Interpretation Comme nts URIC ACID (test code = 2233) 3.6 MG/DL SUKHI REFLEX AUTOIMMUNE AB [id number] 00:00:00* Test Item Value Reference Range Interpretation Comme nts ANTI-NUCLEAR ANTIBODIES (michael t code = 3506) NEGATIVE COMPREHENSIVE METABOLIC [id number] 00:00:00* Test Item Value Reference Range Interpretation Comme nts GLUCOSE (test code = 2217) 101 MG/DL BUN (test code = 2208) 10 MG/DL CREATININE (test code = 2214) 0.62 MG/DL eGFR AMER. (test cod e = 32678) 123 ML/MIN/1.73 eGFR NON- AMER. (test code = 75352) 106 ML/MIN/1.73 CALC BUN/CREAT (test code = [...] (test code = 2219) 196 U/L HEMOGLOBIN [id number] 00:00:00* Test Item Value Reference Range Interpretation Comme nts HEMOGLOBIN A1c (test code = 97504) 7.0 % HEMOGLOBIN [id number] 00:00:00* Test Item Value Reference Range Interpretation Comme nts HEMOGLOBIN A1c (test code = 08714) 7.0 % HEMOGLOBIN [id number] 00:00:00* Test Item Value Reference Range Interpretation Comme nts HEMOGLOBIN A1c (test code = 18304) 7.0 % C-REACTIVE [id number] 00:00:00* Test Item Value Reference Range Interpretation Comme nts C-REACTIVE PROTEIN (test cod e = 3513) 0.7 MG/DL C-REACTIVE [id number] 00:00:00* Test Item Value Reference Range Interpretation Comme nts C-REACTIVE PROTEIN (test cod e = 3513) 0.7 MG/DL SEDIMENTATION [id number] 00:00:00* Test Item Value Reference Range Interpretation Comme nts SEDIMENTATION RATE (test cod e = 1017) 22 MM/HOUR SEDIMENTATION [id number] 00:00:00* Test Item Value Reference Range Interpretation Comme nts SEDIMENTATION RATE (test cod e = 1017) 22 MM/HOUR URIC [id number] 00:00:00* Test Item Value Reference Range Interpretation Comme nts URIC ACID (test code = 2233) 3.6 MG/DL URIC [id number] 00:00:00* Test Item Value Reference Range Interpretation Comme nts URIC ACID (test code = 2233) 3.6 MG/DL SUKHI REFLEX AUTOIMMUNE AB [id number] 00:00:00* Test Item Value Reference Range Interpretation Comme nts ANTI-NUCLEAR ANTIBODIES (michael t code = 3506) NEGATIVE SUKHI REFLEX AUTOIMMUNE AB [id number] 00:00:00* Test Item Value Reference Range Interpretation Comme nts ANTI-NUCLEAR ANTIBODIES (michael t code = 3506) NEGATIVE COMPREHENSIVE METABOLIC [id number] 00:00:00* Test Item Value Reference Range Interpretation Comme nts GLUCOSE (test code = 2217) 101 MG/DL BUN (test code = 2208) 10 MG/DL CREATININE (test code = 2214) 0.62 MG/DL eGFR AMER. (test cod e = 86643) 123 ML/MIN/1.73 eGFR NON- AMER. (test code = 80568) 106 ML/MIN/1.73 CALC BUN/CREAT (test code = [...] code = 2219) 196 U/L COMPREHENSIVE METABOLIC [id number] 00:00:00* Test Item Value Reference Range Interpretation Comme nts GLUCOSE (test code = 2217) 101 MG/DL BUN (test code = 2208) 10 MG/DL CREATININE (test code = 2214) 0.62 MG/DL eGFR AMER. (test cod e = 43990) 123 ML/MIN/1.73 eGFR NON- AMER. (test code = 80087) 106 ML/MIN/1.73 CALC BUN/CREAT (test code = [...] (test code = 2219) 196 U/L HEMOGLOBIN [id number] 00:00:00* Test Item Value Reference Range Interpretation Comme nts HEMOGLOBIN A1c (test code = 91978) 7.0 % HEMOGLOBIN [id number] 00:00:00* Test Item Value Reference Range Interpretation Comme nts HEMOGLOBIN A1c (test code = 39840) 7.0 % HEMOGLOBIN [id number] 00:00:00* Test Item Value Reference Range Interpretation Olaf lux HEMOGLOBIN A1c (test code = 46910) 7.0 % C-REACTIVE [id number] 00:00:00* Test Item Value Reference Range Interpretation Commni nts C-REACTIVE PROTEIN (test cod e = 3513) 0.7 MG/DL C-REACTIVE [id number] 00:00:00* Test Item Value Reference Range Interpretation Comme nts C-REACTIVE PROTEIN (test cod e = 3513) 0.7 MG/DL SEDIMENTATION [id number] 00:00:00* Test Item Value Reference Range Interpretation Comme nts SEDIMENTATION RATE (test cod e = 1017) 22 MM/HOUR SEDIMENTATION [id number] 00:00:00* Test Item Value Reference Range Interpretation Commni nts SEDIMENTATION RATE (test cod e = 1017) 22 MM/HOUR URIC [id number] 00:00:00* Test Item Value Reference Range Interpretation Olaf lux URIC ACID (test code = 2233) 3.6 MG/DL CT ABDOMEN PELVIS W [id number] 04:56:15No acute intra-abdominal or intrapelvic process. Preliminary [...] reviewed this study and agree with the abovereport[facility] [id number] 03:06:00* Test Item Value Reference Range Interpretation Comme nts APPEARANCE (test code = 9992329214) Hazy Clear A COLOR (test code = 9243524541) Loren Yellow A PH (test code = 7783592802) 4.8-8.0 SP GRAVITY (test code = 3227120260) 1.003-1.030 GLU U QUAL (test code = 3935491113) Normal Normal BLOOD (test code = 3775979142) Negative Negative KETONES (test code = 7205320953) Negative Negative PROTEIN (test code = 2887-8) 100 mg/dL Negative A UROBILIN (test code = 6268568166) 2.0 mg/dL Normal A BILIRUBIN (test code = 1569862241) Negative Negative NITRITE (test code = 3363352602) Negative Negative LEUK CHASITY (test code = 2766821215) Negative Negative RBC/HPF (test code = 4627688045) See_Comment [Automated [employer]] The system which generated this result transmitted reference range: 0 - 3 HPF. The reference range was not used to interpret this result as normal/abnormal. WBC/HPF (test code = 9476836322) See_Comment [Automated [employer]] The system which generated this result transmitted reference range: 0 - 5 HPF. The reference range was not used to interpret this result as normal/abnormal. BACTERIA (test code = 5070060301) Few Negative A MUCOUS (test code = 3538414108) Moderate Negative LPF A SQ EPITH (test code = 3462252725) HPF Lab Interpretation (test code = 53314-8) Abnormal [facility]. METABOLIC PANEL (28519)2020-07-26 02:41:00* Test Item Value Reference Range Interpretation Comme nts NA (test code = 3856633691) 139 mmol/L 135-145 K (test code = 7117690692) 3.4 mmol/L 3.5-5 L CL (test code = 1458903449) 99 mmol/L 98-108 CO2 TOTAL (test code = 0693436268) 31 mmol/L 23-31 AGAP (test code = 3817247929) 2-16 BUN (test code = 7665044743) 18 mg/dL 7-23 GLUCOSE (test code = 2135252249) 151 mg/dL 70-110 H CREATININE (test code = 4200526694) 0.59 mg/dL 0.5-1.04 TOTAL BILI (test code = 5618543360) 0.8 mg/dL 0.1-1.1 CALCIUM (test code = 3434929751) 9.5 mg/dL 8.6-10.6 T PROTEIN (test code = 8482074771) 7.8 g/dL 6.3-8.2 ALBUMIN (test code = 6763189694) 4.2 g/dL 3.5-5 ALK PHOS (test code = 2199599720) 91 U/L 34-122 ALTv (test code = 1742-6) 24 U/L 5-35 AST(SGOT) (test code = 4819547192) 25 U/L 13-40 eGFR Calculation (Non-) (test code = 1238064808) mL/min/1.73m2 eGFR Calculation () (test code = 3834409088) mL/min/1.73m2 MATTHEW (test code = MATTHEW) Association [...] imaging tests). Lab Interpretation (test code = 21135-9) [facility] 02:40:[facility]* Test Item Value Reference Range Interpretation Comme nts LIPASE (test code = 5407497337) 149 U/L 0-220 Lab Interpretation (test cod e = 85051-6) Normal [facility] WITH [id number] 02:25:00* Test Item Value Reference Range Interpretation [...] 33.3 g/dL 31.6-35.1 RDW-SD (test code = 14008-4) 40.0 fL 39-49.9 RDW-CV (test code = 788-0) 12.4 % 12-15.5 PLT (test code = 777-3) See_Comment H [Automated message] The system which generated this result transmitted reference range: 166 - 358 10*3/?L. The reference range was not used to interpret this result as normal/abnormal. MPV (test code = 02447-5) 9.7 fL 9.5-12.9 NRBC/100 WBC (test code = 9681953004) See_Comment [Automated message] The system which generated this result transmitted reference range: 0.0 - 10.0 /100 WBCs. The reference range was not used to interpret this result as normal/abnormal. NRBC x10^3 (test code = 6594139482) <0.01 See_Comment [Automated message] The system which generated this result transmitted reference range: 10*3/?L. The reference range was not used to interpret this result as normal/abnormal. GRAN MAT (NEUT) % (test code = 770-8) 80.1 % IMM GRAN % (test code = 5134485263) 0.60 % LYMPH % (test code = 736-9) 10.7 % MONO % (test code = 5905-5) 6.3 % EOS % (test code = 713-8) 1.9 % BASO % (test code = 706-2) 0.4 % GRAN MAT x10^3(ANC) (test code = 9975715854) 14.29 10*3/uL 1.88-7.09 H IMM GRAN x10^3 (test code = 2082578774) 0.10 10*3/uL 0-0.06 H LYMPH x10^3 (test code = 731-0) 1.90 10*3/uL 1.32-3.29 MONO x10^3 (test code = 742-7) 1.12 10*3/uL 0.33-0.92 H EOS x10^3 (test code = 711-2) 0.34 10*3/uL 0.03-0.39 BASO x10^3 (test code = 704-7) 0.07 10*3/uL 0.01-0.07 Lab Interpretation (test code = 18295-1) [facility] [id number] 00:00:00* Test Item Value Reference Range Interpretation Comme nts HEMOGLOBIN A1c (test code = 89505) 10.1 % HEMOGLOBIN [id number] 00:00:00* Test Item Value Reference Range Interpretation Comme nts HEMOGLOBIN A1c (test code = 98084) 10.1 % HEMOGLOBIN [id number] 00:00:00* Test Item Value Reference Range Interpretation Comme nts HEMOGLOBIN A1c (test code = 12727) 10.1 % HEMOGLOBIN [id number] 00:00:00* Test Item Value Reference Range Interpretation Comme nts HEMOGLOBIN A1c (test code = 88220) 10.1 % HEMOGLOBIN [id number] 00:00:00* Test Item Value Reference Range Interpretation Comme nts HEMOGLOBIN A1c (test code = 33028) 10.1 % HEMOGLOBIN [id number] 00:00:00* Test Item Value Reference Range Interpretation Comme nts HEMOGLOBIN A1c (test code = 25265) 10.1 % HEMOGLOBIN [id number] 00:00:00* Test Item Value Reference Range Interpretation Comme nts HEMOGLOBIN A1c (test code = 43434) 10.1 % HEMOGLOBIN [id number] 00:00:00* Test Item Value Reference Range Interpretation Comme nts HEMOGLOBIN A1c (test code = 94475) 10.1 % HEMOGLOBIN [id number] 00:00:00* Test Item Value Reference Range Interpretation Comme nts HEMOGLOBIN A1c (test code = 44274) 10.1 % HEMOGLOBIN [id number] 00:00:00* Test Item Value Reference Range Interpretation Comme nts HEMOGLOBIN A1c (test code = 98305) 10.1 % HEMOGLOBIN [id number] 00:00:00* Test Item Value Reference Range Interpretation Comme nts HEMOGLOBIN A1c (test code = 44753) 10.1 % COMPREHENSIVE METABOLIC [id number] 00:00:00* Test Item Value Reference Range Interpretation Comme nts GLUCOSE (test code = 2217) 310 MG/DL BUN (test code = 2208) 15 MG/DL CREATININE (test code = 2214) 0.55 MG/DL eGFR AMER. (test cod e = 30042) 129 ML/MIN/1.73 eGFR NON- AMER. (test code = 31286) 111 ML/MIN/1.73 CALC BUN/CREAT (test code = [...] 20 U/L VITAMIN B 12 AND FOLIC [id number] 00:00:00* Test Item Value Reference Range Interpretation Comme nts VITAMIN B-12 (test code = 2840) 708 PG/ML FOLIC ACID (test code = 2695) 11.9 UG/L VITAMIN B 12 AND FOLIC [id number] 00:00:00* Test Item Value Reference Range Interpretation Comme nts VITAMIN B-12 (test code = 2840) 708 PG/ML FOLIC ACID (test code = 2695) 11.9 UG/L CBC W/AUTO [id number] 00:00:00* Test Item Value Reference Range Interpretation [...] code = 1015) 364 K/UL CBC W/AUTO [id number] 00:00:00* Test Item Value Reference Range Interpretation [...] code = 1015) 364 K/UL CBC W/AUTO [id number] 00:00:00* Test Item Value Reference Range Interpretation [...] (test code = 1015) 364 K/UL HEMOGLOBIN [id number] 00:00:00* Test Item Value Reference Range Interpretation Comme nts HEMOGLOBIN A1c (test code = 83708) 12.0 % HEMOGLOBIN [id number] 00:00:00* Test Item Value Reference Range Interpretation Comme nts HEMOGLOBIN A1c (test code = 73685) 12.0 % HEMOGLOBIN [id number] 00:00:00* Test Item Value Reference Range Interpretation Comme nts HEMOGLOBIN A1c (test code = 06756) 12.0 % LIPID [id number] 00:00:00* Test Item Value Reference Range Interpretation Comme nts CHOLESTEROL (test code = 2210) 202 MG/DL TRIGLYCERIDES (test code = 2232) 147 MG/DL HDL CHOLESTEROL (test code = 2220) 57 MG/DL CALC LDL CHOL (test code = 2237) 119 MG/DL RISK RATIO LDL/HDL (test cod e = 2238) 2.09 RATIO LIPID [id number] 00:00:00* Test Item Value Reference Range Interpretation Comme nts CHOLESTEROL (test code = 2210) 202 MG/DL TRIGLYCERIDES (test code = 2232) 147 MG/DL HDL CHOLESTEROL (test code = 2220) 57 MG/DL CALC LDL CHOL (test code = 2237) 119 MG/DL RISK RATIO LDL/HDL (test cod e = 2238) 2.09 RATIO COMPREHENSIVE METABOLIC [id number] 00:00:00* Test Item Value Reference Range Interpretation Comme nts GLUCOSE (test code = 2217) 310 MG/DL BUN (test code = 2208) 15 MG/DL CREATININE (test code = 2214) 0.55 MG/DL eGFR AMER. (test cod e = 25777) 129 ML/MIN/1.73 eGFR NON- AMER. (test code = 44203) 111 ML/MIN/1.73 CALC BUN/CREAT (test code = [...] code = 2219) 20 U/L COMPREHENSIVE METABOLIC [id number] 00:00:00* Test Item Value Reference Range Interpretation Comme nts GLUCOSE (test code = 2217) 310 MG/DL BUN (test code = 2208) 15 MG/DL CREATININE (test code = 2214) 0.55 MG/DL eGFR AMER. (test cod e = 53646) 129 ML/MIN/1.73 eGFR NON- AMER. (test code = 83717) 111 ML/MIN/1.73 CALC BUN/CREAT (test code = [...] 20 U/L VITAMIN B 12 AND FOLIC [id number] 00:00:00* Test Item Value Reference Range Interpretation Comme nts VITAMIN B-12 (test code = 2840) 708 PG/ML FOLIC ACID (test code = 2695) 11.9 UG/L VITAMIN B 12 AND FOLIC [id number] 00:00:00* Test Item Value Reference Range Interpretation Comme nts VITAMIN B-12 (test code = 2840) 708 PG/ML FOLIC ACID (test code = 2695) 11.9 UG/L CBC W/AUTO [id number] 00:00:00* Test Item Value Reference Range Interpretation [...] code = 1015) 364 K/UL CBC W/AUTO [id number] 00:00:00* Test Item Value Reference Range Interpretation [...] (test code = 1015) 364 K/UL HEMOGLOBIN [id number] 00:00:00* Test Item Value Reference Range Interpretation Comme nts HEMOGLOBIN A1c (test code = 24470) 12.0 % HEMOGLOBIN [id number] 00:00:00* Test Item Value Reference Range Interpretation Comme nts HEMOGLOBIN A1c (test code = 26208) 12.0 % LIPID [id number] 00:00:00* Test Item Value Reference Range Interpretation Comme nts CHOLESTEROL (test code = 2210) 202 MG/DL TRIGLYCERIDES (test code = 2232) 147 MG/DL HDL CHOLESTEROL (test code = 2220) 57 MG/DL CALC LDL CHOL (test code = 2237) 119 MG/DL RISK RATIO LDL/HDL (test cod e = 2238) 2.09 RATIO COMPREHENSIVE METABOLIC [id number] 00:00:00* Test Item Value Reference Range Interpretation Comme nts GLUCOSE (test code = 2217) 310 MG/DL BUN (test code = 2208) 15 MG/DL CREATININE (test code = 2214) 0.55 MG/DL eGFR AMER. (test cod e = 98461) 129 ML/MIN/1.73 eGFR NON- AMER. (test code = 99115) 111 ML/MIN/1.73 CALC BUN/CREAT (test code = [...] 20 U/L VITAMIN B 12 AND FOLIC [id number] 00:00:00* Test Item Value Reference Range Interpretation Comme nts VITAMIN B-12 (test code = 2840) 708 PG/ML FOLIC ACID (test code = 2695) 11.9 UG/L CBC W/AUTO [id number] 00:00:00* Test Item Value Reference Range Interpretation [...] code = 1015) 364 K/UL CBC W/AUTO [id number] 00:00:00* Test Item Value Reference Range Interpretation [...] code = 1015) 364 K/UL CBC W/AUTO [id number] 00:00:00* Test Item Value Reference Range Interpretation [...] (test code = 1015) 364 K/UL HEMOGLOBIN [id number] 00:00:00* Test Item Value Reference Range Interpretation Comme nts HEMOGLOBIN A1c (test code = 47792) 12.0 % HEMOGLOBIN [id number] 00:00:00* Test Item Value Reference Range Interpretation Comme nts HEMOGLOBIN A1c (test code = 33062) 12.0 % HEMOGLOBIN [id number] 00:00:00* Test Item Value Reference Range Interpretation Comme nts HEMOGLOBIN A1c (test code = 42040) 12.0 % LIPID [id number] 00:00:00* Test Item Value Reference Range Interpretation Comme nts CHOLESTEROL (test code = 2210) 202 MG/DL TRIGLYCERIDES (test code = 2232) 147 MG/DL HDL CHOLESTEROL (test code = 2220) 57 MG/DL CALC LDL CHOL (test code = 2237) 119 MG/DL RISK RATIO LDL/HDL (test cod e = 2238) 2.09 RATIO LIPID [id number] 00:00:00* Test Item Value Reference Range Interpretation Comme nts CHOLESTEROL (test code = 2210) 202 MG/DL TRIGLYCERIDES (test code = 2232) 147 MG/DL HDL CHOLESTEROL (test code = 2220) 57 MG/DL CALC LDL CHOL (test code = 2237) 119 MG/DL RISK RATIO LDL/HDL (test cod e = 2238) 2.09 RATIO COMPREHENSIVE METABOLIC [id number] 00:00:00* Test Item Value Reference Range Interpretation Comme nts GLUCOSE (test code = 2217) 310 MG/DL BUN (test code = 2208) 15 MG/DL CREATININE (test code = 2214) 0.55 MG/DL eGFR AMER. (test cod e = 44965) 129 ML/MIN/1.73 eGFR NON- AMER. (test code = 36030) 111 ML/MIN/1.73 CALC BUN/CREAT (test code = [...] code = 2219) 20 U/L COMPREHENSIVE METABOLIC [id number] 00:00:00* Test Item Value Reference Range Interpretation Comme nts GLUCOSE (test code = 2217) 310 MG/DL BUN (test code = 2208) 15 MG/DL CREATININE (test code = 2214) 0.55 MG/DL eGFR AMER. (test cod e = 16013) 129 ML/MIN/1.73 eGFR NON- AMER. (test code = 48040) 111 ML/MIN/1.73 CALC BUN/CREAT (test code = [...] 20 U/L VITAMIN B 12 AND FOLIC [id number] 00:00:00* Test Item Value Reference Range Interpretation Comme nts VITAMIN B-12 (test code = 2840) 708 PG/ML FOLIC ACID (test code = 2695) 11.9 UG/L VITAMIN B 12 AND FOLIC [id number] 00:00:00* Test Item Value Reference Range Interpretation Comme nts VITAMIN B-12 (test code = 2840) 708 PG/ML FOLIC ACID (test code = 2695) 11.9 UG/L CBC W/AUTO [id number] 00:00:00* Test Item Value Reference Range Interpretation [...] code = 1015) 364 K/UL CBC W/AUTO [id number] 00:00:00* Test Item Value Reference Range Interpretation [...] code = 1015) 364 K/UL CBC W/AUTO [id number] 00:00:00* Test Item Value Reference Range Interpretation [...] (test code = 1015) 364 K/UL HEMOGLOBIN [id number] 00:00:00* Test Item Value Reference Range Interpretation Comme nts HEMOGLOBIN A1c (test code = 91443) 12.0 % HEMOGLOBIN [id number] 00:00:00* Test Item Value Reference Range Interpretation Comme nts HEMOGLOBIN A1c (test code = 98791) 12.0 % HEMOGLOBIN [id number] 00:00:00* Test Item Value Reference Range Interpretation Comme nts HEMOGLOBIN A1c (test code = 52711) 12.0 % LIPID [id number] 00:00:00* Test Item Value Reference Range Interpretation Comme nts CHOLESTEROL (test code = 2210) 202 MG/DL TRIGLYCERIDES (test code = 2232) 147 MG/DL HDL CHOLESTEROL (test code = 2220) 57 MG/DL CALC LDL CHOL (test code = 2237) 119 MG/DL RISK RATIO LDL/HDL (test cod e = 2238) 2.09 RATIO LIPID [id number] 00:00:00* Test Item Value Reference Range Interpretation Comme nts CHOLESTEROL (test code = 2210) 202 MG/DL TRIGLYCERIDES (test code = 2232) 147 MG/DL HDL CHOLESTEROL (test code = 2220) 57 MG/DL CALC LDL CHOL (test code = 2237) 119 MG/DL RISK RATIO LDL/HDL (test cod e = 2238) 2.09 RATIO COMPREHENSIVE METABOLIC [id number] 00:00:00* Test Item Value Reference Range Interpretation Comme nts GLUCOSE (test code = 2217) 310 MG/DL BUN (test code = 2208) 15 MG/DL CREATININE (test code = 2214) 0.55 MG/DL eGFR AMER. (test cod e = 08175) 129 ML/MIN/1.73 eGFR NON- AMER. (test code = 43325) 111 ML/MIN/1.73 CALC BUN/CREAT (test code = [...] nts SARS-CoV-2 INTERPRETATION (t est code = 44405) NEGATIVE SOURCE (test code = 23327) NOT SPECIFIED SARS-CoV-2 (COVID-19) by RT-PCR (HIGH RISK)2020-04-01 00:00:00* Test Item Value Reference Range Interpretation Comme nts SARS-CoV-2 INTERPRETATION (t est code = 64170) NEGATIVE SOURCE (test code = 64667) NOT SPECIFIED SARS-CoV-2 (COVID-19) by RT-PCR (HIGH RISK)2020-04-01 00:00:00* Test Item Value Reference Range Interpretation Comme nts SARS-CoV-2 INTERPRETATION (t est code = 02002) NEGATIVE SOURCE (test code = 34239) NOT SPECIFIED SARS-CoV-2 (COVID-19) by RT-PCR (HIGH RISK)2020-04-01 00:00:00* Test Item Value Reference Range Interpretation Comme nts SARS-CoV-2 INTERPRETATION (t est code = 12980) NEGATIVE SOURCE (test code = 39572) NOT SPECIFIED SARS-CoV-2 (COVID-19) by RT-PCR (HIGH RISK)2020-04-01 00:00:00* Test Item Value Reference Range Interpretation Comme nts SARS-CoV-2 INTERPRETATION (t est code = 02036) NEGATIVE SOURCE (test code = 75320) NOT SPECIFIED SARS-CoV-2 (COVID-19) by RT-PCR (HIGH RISK)2020-04-01 00:00:00* Test Item Value Reference Range Interpretation Comme nts SARS-CoV-2 INTERPRETATION (t est code = 74451) NEGATIVE SOURCE (test code = 46882) NOT SPECIFIED SARS-CoV-2 (COVID-19) by RT-PCR (HIGH RISK)2020-04-01 00:00:00* Test Item Value Reference Range Interpretation Comme nts SARS-CoV-2 INTERPRETATION (t est code = 54477) NEGATIVE SOURCE (test code = 59972) NOT SPECIFIED PAP TEST, THINPREP, [id number] 00:00:00* Test Item Value Reference Range Interpretation Comme nts SOURCE: (test code = 8001) Cervical/Endocervical SLIDES: (test code = 8011) 1 LMP: (test code = 8021) MIRENA SPECIMEN ADEQUACY: (test code = 43826) (NOTE) INTERPRETATION: (test code = 13308) NILM/NO EPITH. ABNORMALITY;SEE BELOW OTHER COMMENTS: (test code = 8081) (NOTE) DIRECTOR EMBALMER: (test code = 8101) Katya BranchCT(ASCP)IAC QC TECHNOLOGIST: (test code = 8111) BOYD Gabriel(ASCP),IAC LOCATION: (test code = 52117) (NOTE) CPT: (test code = 8140) (NOTE) PAP TEST, THINPREP, [id number] 00:00:00* Test Item Value Reference Range Interpretation Comme nts SOURCE: (test code = 8001) Cervical/Endocervical SLIDES: (test code = 8011) 1 LMP: (test code = 8021) MIRENA SPECIMEN ADEQUACY: (test code = 59408) (NOTE) INTERPRETATION: (test code = 90382) NILM/NO EPITH. ABNORMALITY;SEE BELOW OTHER COMMENTS: (test code = 8081) (NOTE) DIRECTOR EMBALMER: (test code = 8101) BETTY Cline(ASCP)IAC QC TECHNOLOGIST: (test code = 8111) BOYD Gabriel(ASCP),IAC LOCATION: (test code = 82937) (NOTE) CPT: (test code = 8140) (NOTE) PAP TEST, THINPREP, [id number] 00:00:00* Test Item Value Reference Range Interpretation Comme nts SOURCE: (test code = 8001) Cervical/Endocervical SLIDES: (test code = 8011) 1 LMP: (test code = 8021) MIRENA SPECIMEN ADEQUACY: (test code = 34153) (NOTE) INTERPRETATION: (test code = 22443) NILM/NO EPITH. ABNORMALITY;SEE BELOW OTHER COMMENTS: (test code = 8081) (NOTE) DIRECTOR EMBALMER: (test code = 8101) Katya BranchCT(ASCP)IAC QC TECHNOLOGIST: (test code = 8111) BOYD Gabriel(ASCP),IAC LOCATION: (test code = 37857) (NOTE) CPT: (test code = 8140) (NOTE) PAP TEST, THINPREP, [id number] 00:00:00* Test Item Value Reference Range Interpretation Comme nts SOURCE: (test code = 8001) Cervical/Endocervical SLIDES: (test code = 8011) 1 LMP: (test code = 8021) MIRENA SPECIMEN ADEQUACY: (test code = 79560) (NOTE) INTERPRETATION: (test code = 79014) NILM/NO EPITH. ABNORMALITY;SEE BELOW OTHER COMMENTS: (test code = 8081) (NOTE) DIRECTOR EMBALMER: (test code = 8101) BETTY Cline(ASCP)IAC QC TECHNOLOGIST: (test code = 8111) Ney BullardSCT(ASCP),IAC LOCATION: (test code = 95400) (NOTE) CPT: (test code = 8140) (NOTE) PAP TEST, THINPREP, [id number] 00:00:00* Test Item Value Reference Range Interpretation Comme nts SOURCE: (test code = 8001) Cervical/Endocervical SLIDES: (test code = 8011) 1 LMP: (test code = 8021) MIRENA SPECIMEN ADEQUACY: (test code = 58948) (NOTE) INTERPRETATION: (test code = 72420) NILM/NO EPITH. ABNORMALITY;SEE BELOW OTHER COMMENTS: (test code = 8081) (NOTE) DIRECTOR EMBALMER: (test code = 8101) BETTY Cline(ASCP)IAC QC TECHNOLOGIST: (test code = 8111) Ney BullardSCT(ASCP),IAC LOCATION: (test code = 12474) (NOTE) CPT: (test code = 8140) (NOTE) PAP TEST, THINPREP, [id number] 00:00:00* Test Item Value Reference Range Interpretation Comme nts SOURCE: (test code = 8001) Cervical/Endocervical SLIDES: (test code = 8011) 1 LMP: (test code = 8021) MIRENA SPECIMEN ADEQUACY: (test code = 38885) (NOTE) INTERPRETATION: (test code = 93502) NILM/NO EPITH. ABNORMALITY;SEE BELOW OTHER COMMENTS: (test code = 8081) (NOTE) DIRECTOR EMBALMER: (test code = 8101) BETTY Cline(ASCP)IAC QC TECHNOLOGIST: (test code = 8111) BOYD Gabriel(ASCP),IAC LOCATION: (test code = 59924) (NOTE) CPT: (test code = 8140) (NOTE) PAP TEST, THINPREP, [id number] 00:00:00* Test Item Value Reference Range Interpretation Comme nts SOURCE: (test code = 8001) Cervical/Endocervical SLIDES: (test code = 8011) 1 LMP: (test code = 8021) MIRENA SPECIMEN ADEQUACY: (test code = 48656) (NOTE) INTERPRETATION: (test code = 99115) NILM/NO EPITH. ABNORMALITY;SEE BELOW OTHER COMMENTS: (test code = 8081) (NOTE) DIRECTOR EMBALMER: (test code = 8101) Katya Branch,CT(ASCP)IAC QC TECHNOLOGIST: (test code = 8111) Ney BullardSCT(ASCP),IAC LOCATION: (test code = 92117) (NOTE) CPT: (test code = 8140) (NOTE) HPV HIGH RISK WITH GENOTYPE, [id number] 00:00:00* Test Item Value Reference Range Interpretation Comme nts HPV HIGH RISK INTERP (test c ode = 36162) NEGATIVE HPV 16 (test code = 21431) NEGATIVE HPV 18 (test code = 60243) NEGATIVE HPV, HR, OTHER GENOTYPES (te st code = 18700) NEGATIVE HPV HIGH RISK WITH GENOTYPE, [id number] 00:00:00* Test Item Value Reference Range Interpretation Comme nts HPV HIGH RISK INTERP (test c ode = 08308) NEGATIVE HPV 16 (test code = 96725) NEGATIVE HPV 18 (test code = 45132) NEGATIVE HPV, HR, OTHER GENOTYPES (te st code = 79689) NEGATIVE HPV HIGH RISK WITH GENOTYPE, [id number] 00:00:00* Test Item Value Reference Range Interpretation Comme nts HPV HIGH RISK INTERP (test c ode = 19926) NEGATIVE HPV 16 (test code = 74326) NEGATIVE HPV 18 (test code = 56839) NEGATIVE HPV, HR, OTHER GENOTYPES (te st code = 58623) NEGATIVE HPV HIGH RISK WITH GENOTYPE, [id number] 00:00:00* Test Item Value Reference Range Interpretation Comme nts HPV HIGH RISK INTERP (test c ode = 11292) NEGATIVE HPV 16 (test code = 60005) NEGATIVE HPV 18 (test code = 16385) NEGATIVE HPV, HR, OTHER GENOTYPES (te st code = 54679) NEGATIVE HPV HIGH RISK WITH GENOTYPE, [id number] 00:00:00* Test Item Value Reference Range Interpretation Comme nts HPV HIGH RISK INTERP (test c ode = 36266) NEGATIVE HPV 16 (test code = 34319) NEGATIVE HPV 18 (test code = 65327) NEGATIVE HPV, HR, OTHER GENOTYPES (te st code = 71481) NEGATIVE HPV HIGH RISK WITH GENOTYPE, [id number] 00:00:00* Test Item Value Reference Range Interpretation Comme nts HPV HIGH RISK INTERP (test c ode = 99868) NEGATIVE HPV 16 (test code = 36342) NEGATIVE HPV 18 (test code = 66776) NEGATIVE HPV, HR, OTHER GENOTYPES (te st code = 46887) NEGATIVE HPV HIGH RISK WITH GENOTYPE, [id number] 00:00:00* Test Item Value Reference Range Interpretation Comme nts HPV HIGH RISK INTERP (test c ode = 71461) NEGATIVE HPV 16 (test code = 42846) NEGATIVE HPV 18 (test code = 58642) NEGATIVE HPV, HR, OTHER GENOTYPES (te st code = 34717) NEGATIVE GC AND CHLAMYDIA AMPLIFIED, [id number] 00:00:00* Test Item Value Reference Range Interpretation Comme nts GONORRHEA, TMA (test code = 88830) NEGATIVE CHLAMYDIA, TMA (test code = 75221) NEGATIVE GC AND CHLAMYDIA AMPLIFIED, [id number] 00:00:00* Test Item Value Reference Range Interpretation Comme nts GONORRHEA, TMA (test code = 66029) NEGATIVE CHLAMYDIA, TMA (test code = 54649) NEGATIVE GC AND CHLAMYDIA AMPLIFIED, [id number] 00:00:00* Test Item Value Reference Range Interpretation Comme nts GONORRHEA, TMA (test code = 43620) NEGATIVE CHLAMYDIA, TMA (test code = 39973) NEGATIVE GC AND CHLAMYDIA AMPLIFIED, [id number] 00:00:00* Test Item Value Reference Range Interpretation Comme nts GONORRHEA, TMA (test code = 94240) NEGATIVE CHLAMYDIA, TMA (test code = 27950) NEGATIVE GC AND CHLAMYDIA AMPLIFIED, [id number] 00:00:00* Test Item Value Reference Range Interpretation Comme nts GONORRHEA, TMA (test code = 04838) NEGATIVE CHLAMYDIA, TMA (test code = 69747) NEGATIVE GC AND CHLAMYDIA AMPLIFIED, [id number] 00:00:00* Test Item Value Reference Range Interpretation Comme nts GONORRHEA, TMA (test code = 78087) NEGATIVE CHLAMYDIA, TMA (test code = 94953) NEGATIVE GC AND CHLAMYDIA AMPLIFIED, [id number] 00:00:00* Test Item Value Reference Range Interpretation Comme nts GONORRHEA, TMA (test code = 07727) NEGATIVE CHLAMYDIA, TMA (test code = 62237) NEGATIVE HEMOGLOBIN [id number] 00:00:00* Test Item Value Reference Range Interpretation Comme nts HEMOGLOBIN A1c (test code = 64373) 11.9 % HEMOGLOBIN [id number] 00:00:00* Test Item Value Reference Range Interpretation Comme nts HEMOGLOBIN A1c (test code = 78320) 11.9 % HEMOGLOBIN [id number] 00:00:00* Test Item Value Reference Range Interpretation Comme nts HEMOGLOBIN A1c (test code = 85208) 11.9 % HEMOGLOBIN [id number] 00:00:00* Test Item Value Reference Range Interpretation Comme nts HEMOGLOBIN A1c (test code = 03927) 11.9 % HEMOGLOBIN [id number] 00:00:00* Test Item Value Reference Range Interpretation Comme nts HEMOGLOBIN A1c (test code = 33579) 11.9 % HEMOGLOBIN [id number] 00:00:00* Test Item Value Reference Range Interpretation Comme nts HEMOGLOBIN A1c (test code = 95138) 11.9 % HEMOGLOBIN [id number] 00:00:00* Test Item Value Reference Range Interpretation Comme nts HEMOGLOBIN A1c (test code = 09102) 11.9 % HEMOGLOBIN [id number] 00:00:00* Test Item Value Reference Range Interpretation Comme nts HEMOGLOBIN A1c (test code = 96986) 11.9 % HEMOGLOBIN [id number] 00:00:00* Test Item Value Reference Range Interpretation Comme nts HEMOGLOBIN A1c (test code = 23377) 11.9 % HEMOGLOBIN [id number] 00:00:00* Test Item Value Reference Range Interpretation Comme nts HEMOGLOBIN A1c (test code = 62958) 11.9 % HEMOGLOBIN [id number] 00:00:00* Test Item Value Reference Range Interpretation Comme nts HEMOGLOBIN A1c (test code = 63248) 11.9 % COMPREHENSIVE METABOLIC [id number] 00:00:00* Test Item Value Reference Range Interpretation Comme nts GLUCOSE (test code = 2217) 202 MG/DL BUN (test code = 2208) 9 MG/DL CREATININE (test code = 2214) 0.50 MG/DL eGFR AMER. (test cod e = 72892) 135 ML/MIN/1.73 eGFR NON- AMER. (test code = 44220) 116 ML/MIN/1.73 CALC BUN/CREAT (test code = [...] code = 2219) 20 U/L COMPREHENSIVE METABOLIC [id number] 00:00:00* Test Item Value Reference Range Interpretation Comme nts GLUCOSE (test code = 2217) 202 MG/DL BUN (test code = 2208) 9 MG/DL CREATININE (test code = 2214) 0.50 MG/DL eGFR AMER. (test cod e = 64496) 135 ML/MIN/1.73 eGFR NON- AMER. (test code = 91846) 116 ML/MIN/1.73 CALC BUN/CREAT (test code = [...] code = 2219) 20 U/L COMPREHENSIVE METABOLIC [id number] 00:00:00* Test Item Value Reference Range Interpretation Comme nts GLUCOSE (test code = 2217) 202 MG/DL BUN (test code = 2208) 9 MG/DL CREATININE (test code = 2214) 0.50 MG/DL eGFR AMER. (test cod e = 91967) 135 ML/MIN/1.73 eGFR NON- AMER. (test code = 30967) 116 ML/MIN/1.73 CALC BUN/CREAT (test code = [...] code = 2219) 20 U/L COMPREHENSIVE METABOLIC [id number] 00:00:00* Test Item Value Reference Range Interpretation Comme nts GLUCOSE (test code = 2217) 202 MG/DL BUN (test code = 2208) 9 MG/DL CREATININE (test code = 2214) 0.50 MG/DL eGFR AMER. (test cod e = 31684) 135 ML/MIN/1.73 eGFR NON- AMER. (test code = 76627) 116 ML/MIN/1.73 CALC BUN/CREAT (test code = [...] code = 2219) 20 U/L COMPREHENSIVE METABOLIC [id number] 00:00:00* Test Item Value Reference Range Interpretation Comme nts GLUCOSE (test code = 2217) 202 MG/DL BUN (test code = 2208) 9 MG/DL CREATININE (test code = 2214) 0.50 MG/DL eGFR AMER. (test cod e = 76718) 135 ML/MIN/1.73 eGFR NON- AMER. (test code = 15511) 116 ML/MIN/1.73 CALC BUN/CREAT (test code = [...] code = 2219) 20 U/L COMPREHENSIVE METABOLIC [id number] 00:00:00* Test Item Value Reference Range Interpretation Comme nts GLUCOSE (test code = 2217) 202 MG/DL BUN (test code = 2208) 9 MG/DL CREATININE (test code = 2214) 0.50 MG/DL eGFR AMER. (test cod e = 40078) 135 ML/MIN/1.73 eGFR NON- AMER. (test code = 92530) 116 ML/MIN/1.73 CALC BUN/CREAT (test code = [...] code = 2219) 20 U/L COMPREHENSIVE METABOLIC [id number] 00:00:00* Test Item Value Reference Range Interpretation Comme nts GLUCOSE (test code = 2217) 202 MG/DL BUN (test code = 2208) 9 MG/DL CREATININE (test code = 2214) 0.50 MG/DL eGFR AMER. (test cod e = 87004) 135 ML/MIN/1.73 eGFR NON- AMER. (test code = 34115) 116 ML/MIN/1.73 CALC BUN/CREAT (test code = [...] (test code = 2219) 20 U/L HEMOGLOBIN [id number] 00:00:00* Test Item Value Reference Range Interpretation Comme nts HEMOGLOBIN A1c (test code = 19931) 11.2 % HEMOGLOBIN [id number] 00:00:00* Test Item Value Reference Range Interpretation Comme nts HEMOGLOBIN A1c (test code = 27622) 11.2 % HEMOGLOBIN [id number] 00:00:00* Test Item Value Reference Range Interpretation Comme nts HEMOGLOBIN A1c (test code = 15612) 11.2 % HEMOGLOBIN [id number] 00:00:00* Test Item Value Reference Range Interpretation Comme nts HEMOGLOBIN A1c (test code = 73102) 11.2 % HEMOGLOBIN [id number] 00:00:00* Test Item Value Reference Range Interpretation Comme nts HEMOGLOBIN A1c (test code = 95737) 11.2 % HEMOGLOBIN [id number] 00:00:00* Test Item Value Reference Range Interpretation Comme nts HEMOGLOBIN A1c (test code = 37842) 11.2 % HEMOGLOBIN [id number] 00:00:00* Test Item Value Reference Range Interpretation Comme nts HEMOGLOBIN A1c (test code = 29418) 11.2 % HEMOGLOBIN [id number] 00:00:00* Test Item Value Reference Range Interpretation Comme nts HEMOGLOBIN A1c (test code = 83627) 11.2 % HEMOGLOBIN [id number] 00:00:00* Test Item Value Reference Range Interpretation Comme nts HEMOGLOBIN A1c (test code = 89083) 11.2 % HEMOGLOBIN [id number] 00:00:00* Test Item Value Reference Range Interpretation Comme nts HEMOGLOBIN A1c (test code = 09950) 11.2 % HEMOGLOBIN [id number] 00:00:00* Test Item Value Reference Range Interpretation Comme nts HEMOGLOBIN A1c (test code = 93522) 11.2 % PAP TEST, THINPREP, [id number] 00:00:00* Test Item Value Reference Range Interpretation Comme nts SOURCE: (test code = 8001) Cervical/Endocervical SLIDES: (test code = 8011) 1 LMP: (test code = 8021) SPECIMEN ADEQUACY: (test code = 98302) (NOTE) INTERPRETATION: (test code = 59451) NO EPITHELIAL ABNORMALITY SEE BELOW OTHER COMMENTS: (test code = 8081) (NOTE) DIRECTOR EMBALMER: (test code = 8101) BETTY Wilson(ASCP)IAC QC TECHNOLOGIST: (test code = 8111) BOYD Gabriel(ASCP),IAC LOCATION: (test code = 46437) (NOTE) CPT: (test code = 8140) (NOTE) PAP TEST, THINPREP, [id number] 00:00:00* Test Item Value Reference Range Interpretation Comme nts SOURCE: (test code = 8001) Cervical/Endocervical SLIDES: (test code = 8011) 1 LMP: (test code = 8021) SPECIMEN ADEQUACY: (test code = 99436) (NOTE) INTERPRETATION: (test code = 46207) NO EPITHELIAL ABNORMALITY SEE BELOW OTHER COMMENTS: (test code = 8081) (NOTE) DIRECTOR EMBALMER: (test code = 8101) BETTY Wilson(ASCP)IAC QC TECHNOLOGIST: (test code = 8111) BOYD Gabriel(ASCP),IAC LOCATION: (test code = 66143) (NOTE) CPT: (test code = 8140) (NOTE) PAP TEST, THINPREP, [id number] 00:00:00* Test Item Value Reference Range Interpretation Comme nts SOURCE: (test code = 8001) Cervical/Endocervical SLIDES: (test code = 8011) 1 LMP: (test code = 8021) SPECIMEN ADEQUACY: (test code = 73615) (NOTE) INTERPRETATION: (test code = 21400) NO EPITHELIAL ABNORMALITY SEE BELOW OTHER COMMENTS: (test code = 8081) (NOTE) DIRECTOR EMBALMER: (test code = 8101) BETTY Wilson(ASCP)IAC QC TECHNOLOGIST: (test code = 8111) BOYD Gabriel(ASCP),IAC LOCATION: (test code = 54834) (NOTE) CPT: (test code = 8140) (NOTE) PAP TEST, THINPREP, [id number] 00:00:00* Test Item Value Reference Range Interpretation Comme nts SOURCE: (test code = 8001) Cervical/Endocervical SLIDES: (test code = 8011) 1 LMP: (test code = 8021) SPECIMEN ADEQUACY: (test code = 82322) (NOTE) INTERPRETATION: (test code = 81759) NO EPITHELIAL ABNORMALITY SEE BELOW OTHER COMMENTS: (test code = 8081) (NOTE) DIRECTOR EMBALMER: (test code = 8101) BETTY Wilson(ASCP)IAC QC TECHNOLOGIST: (test code = 8111) BOYD Gabriel(ASCP),IAC LOCATION: (test code = 14836) (NOTE) CPT: (test code = 8140) (NOTE) PAP TEST, THINPREP, [id number] 00:00:00* Test Item Value Reference Range Interpretation Comme nts SOURCE: (test code = 8001) Cervical/Endocervical SLIDES: (test code = 8011) 1 LMP: (test code = 8021) SPECIMEN ADEQUACY: (test code = 15569) (NOTE) INTERPRETATION: (test code = 85752) NO EPITHELIAL ABNORMALITY SEE BELOW OTHER COMMENTS: (test code = 8081) (NOTE) DIRECTOR EMBALMER: (test code = 8101) BETTY Wilson(ASCP)IAC QC TECHNOLOGIST: (test code = 8111) BOYD Gabriel(ASCP),IAC LOCATION: (test code = 95728) (NOTE) CPT: (test code = 8140) (NOTE) PAP TEST, THINPREP, [id number] 00:00:00* Test Item Value Reference Range Interpretation Comme nts SOURCE: (test code = 8001) Cervical/Endocervical SLIDES: (test code = 8011) 1 LMP: (test code = 8021) SPECIMEN ADEQUACY: (test code = 97319) (NOTE) INTERPRETATION: (test code = 80168) NO EPITHELIAL ABNORMALITY SEE BELOW OTHER COMMENTS: (test code = 8081) (NOTE) DIRECTOR EMBALMER: (test code = 8101) BETTY Wilson(ASCP)IAC QC TECHNOLOGIST: (test code = 8111) Ney BullardSCT(ASCP),IAC LOCATION: (test code = 71679) (NOTE) CPT: (test code = 8140) (NOTE) PAP TEST, THINPREP, [id number] 00:00:00* Test Item Value Reference Range Interpretation Comme nts SOURCE: (test code = 8001) Cervical/Endocervical SLIDES: (test code = 8011) 1 LMP: (test code = 8021) SPECIMEN ADEQUACY: (test code = 31357) (NOTE) INTERPRETATION: (test code = 67303) NO EPITHELIAL ABNORMALITY SEE BELOW OTHER COMMENTS: (test code = 8081) (NOTE) DIRECTOR EMBALMER: (test code = 8101) BETTY Wilson(ASCP)IAC QC TECHNOLOGIST: (test code = 8111) Ney BullardSCT(ASCP),IAC LOCATION: (test code = 55838) (NOTE) CPT: (test code = 8140) (NOTE) HPV HIGH RISK WITH GENOTYPE, [id number] 00:00:00* Test Item Value Reference Range Interpretation Comme nts HPV HIGH RISK INTERP (test c ode = 00081) POSITIVE HPV 16 (test code = 94271) NEGATIVE HPV 18 (test code = 15753) NEGATIVE HPV, HR, OTHER GENOTYPES (te st code = 09296) POSITIVE HPV HIGH RISK WITH GENOTYPE, [id number] 00:00:00* Test Item Value Reference Range Interpretation Comme nts HPV HIGH RISK INTERP (test c ode = 54473) POSITIVE HPV 16 (test code = 82930) NEGATIVE HPV 18 (test code = 28951) NEGATIVE HPV, HR, OTHER GENOTYPES (te st code = 02847) POSITIVE HPV HIGH RISK WITH GENOTYPE, [id number] 00:00:00* Test Item Value Reference Range Interpretation Comme nts HPV HIGH RISK INTERP (test c ode = 04795) POSITIVE HPV 16 (test code = 54024) NEGATIVE HPV 18 (test code = 89114) NEGATIVE HPV, HR, OTHER GENOTYPES (te st code = 35368) POSITIVE HPV HIGH RISK WITH GENOTYPE, [id number] 00:00:00* Test Item Value Reference Range Interpretation Comme nts HPV HIGH RISK INTERP (test c ode = 28513) POSITIVE HPV 16 (test code = 18470) NEGATIVE HPV 18 (test code = 64982) NEGATIVE HPV, HR, OTHER GENOTYPES (te st code = 59141) POSITIVE HPV HIGH RISK WITH GENOTYPE, [id number] 00:00:00* Test Item Value Reference Range Interpretation Comme [facility] HPV HIGH RISK INTERP (test c ode = 39070) POSITIVE HPV 16 (test code = 00940) NEGATIVE HPV 18 (test code = 41469) NEGATIVE HPV, HR, OTHER GENOTYPES (te st code = 13730) POSITIVE HPV HIGH RISK WITH GENOTYPE, [id number] 00:00:00* Test Item Value Reference Range Interpretation Comme nts HPV HIGH RISK INTERP (test c ode = 02941) POSITIVE HPV 16 (test code = 02739) NEGATIVE HPV 18 (test code = 50370) NEGATIVE HPV, HR, OTHER GENOTYPES (te st code = 42333) POSITIVE HPV HIGH RISK WITH GENOTYPE, [id number] 00:00:00* Test Item Value Reference Range Interpretation Comme [facility] HPV HIGH RISK INTERP (test c ode = 38866) POSITIVE HPV 16 (test code = 00684) NEGATIVE HPV 18 (test code = 10577) NEGATIVE HPV, HR, OTHER GENOTYPES (te st code = 89753) POSITIVE HEMOGLOBIN [id number] 00:00:00* Test Item Value Reference Range Interpretation Comme [facility] HEMOGLOBIN A1c (test code = 53394) 9.5 % THYROID II PROFILE (T3U, T4, T7, TSH)2016-04-13 00:00:00* Test Item Value Reference Range Interpretation Comme [facility] T3 UPTAKE (test code = 2817) 27.5 [...] code = 2821) 2.3 UIU/ML COMPREHENSIVE METABOLIC [id number] 00:00:00* Test Item Value Reference Range Interpretation Comme nts GLUCOSE (test code = 2217) 252 MG/DL BUN (test code = 2208) 13 MG/DL CREATININE (test code = 2214) 0.57 MG/DL eGFR AMER. (test cod e = 20579) 131 ML/MIN/1.73 eGFR NON- AMER. (test code = 26548) 113 ML/MIN/1.73 CALC BUN/CREAT (test code = [...] code = 2219) 16 U/L COMPREHENSIVE METABOLIC [id number] 00:00:00* Test Item Value Reference Range Interpretation Comme nts GLUCOSE (test code = 2217) 252 MG/DL BUN (test code = 2208) 13 MG/DL CREATININE (test code = 2214) 0.57 MG/DL eGFR AMER. (test cod e = 66207) 131 ML/MIN/1.73 eGFR NON- AMER. (test code = 63408) 113 ML/MIN/1.73 CALC BUN/CREAT (test code = [...] (test code = 2219) 16 U/L LIPID [id number] 00:00:00* Test Item Value Reference Range Interpretation Comme nts CHOLESTEROL (test code = 2210) 167 MG/DL TRIGLYCERIDES (test code = 2232) 118 MG/DL HDL CHOLESTEROL (test code = 2220) 57 MG/DL CALC LDL CHOL (test code = 2237) 86 MG/DL RISK RATIO LDL/HDL (test cod e = 2238) 1.52 RATIO LIPID [id number] 00:00:00* Test Item Value Reference Range Interpretation Comme nts CHOLESTEROL (test code = 2210) 167 MG/DL TRIGLYCERIDES (test code = 2232) 118 MG/DL HDL CHOLESTEROL (test code = 2220) 57 MG/DL CALC LDL CHOL (test code = 2237) 86 MG/DL RISK RATIO LDL/HDL (test cod e = 2238) 1.52 RATIO CBC W/AUTO [id number] 00:00:00* Test Item Value Reference Range Interpretation [...] code = 1015) 360 K/UL CBC W/AUTO [id number] 00:00:00* Test Item Value Reference Range Interpretation [...] code = 1015) 360 K/UL CBC W/AUTO [id number] 00:00:00* Test Item Value Reference Range Interpretation [...] (test code = 1015) 360 K/UL HEMOGLOBIN [id number] 00:00:00* Test Item Value Reference Range Interpretation Comme nts HEMOGLOBIN A1c (test code = 94529) 9.5 % HEMOGLOBIN [id number] 00:00:00* Test Item Value Reference Range Interpretation Comme nts HEMOGLOBIN A1c (test code = 02990) 9.5 % HEMOGLOBIN [id number] 00:00:00* Test Item Value Reference Range Interpretation Comme nts HEMOGLOBIN A1c (test code = 34571) 9.5 % THYROID II PROFILE (T3U, T4, [...] code = 2821) 2.3 UIU/ML COMPREHENSIVE METABOLIC [id number] 00:00:00* Test Item Value Reference Range Interpretation Comme nts GLUCOSE (test code = 2217) 252 MG/DL BUN (test code = 2208) 13 MG/DL CREATININE (test code = 2214) 0.57 MG/DL eGFR AMER. (test cod e = 37364) 131 ML/MIN/1.73 eGFR NON- AMER. (test code = 25565) 113 ML/MIN/1.73 CALC BUN/CREAT (test code = [...] (test code = 2219) 16 U/L LIPID [id number] 00:00:00* Test Item Value Reference Range Interpretation Comme nts CHOLESTEROL (test code = 2210) 167 MG/DL TRIGLYCERIDES (test code = 2232) 118 MG/DL HDL CHOLESTEROL (test code = 2220) 57 MG/DL CALC LDL CHOL (test code = 2237) 86 MG/DL RISK RATIO LDL/HDL (test cod e = 2238) 1.52 RATIO CBC W/AUTO [id number] 00:00:00* Test Item Value Reference Range Interpretation [...] code = 1015) 360 K/UL CBC W/AUTO [id number] 00:00:00* Test Item Value Reference Range Interpretation [...] (test code = 1015) 360 K/UL HEMOGLOBIN [id number] 00:00:00* Test Item Value Reference Range Interpretation Comme nts HEMOGLOBIN A1c (test code = 97551) 9.5 % HEMOGLOBIN [id number] 00:00:00* Test Item Value Reference Range Interpretation Comme nts HEMOGLOBIN A1c (test code = 60969) 9.5 % THYROID II PROFILE (T3U, T4, T7, TSH)2016-04-13 00:00:00* Test Item Value Reference Range Interpretation Comme nts T3 UPTAKE (test code = 2817) 27.5 % T4 (THYROXINE) (test code = 2819) 8.7 UG/DL CALCULATED T7 (FTI) (test co de = 2820) 2.39 TSH (test code = 2821) 2.3 UIU/ML COMPREHENSIVE METABOLIC [id number] 00:00:00* Test Item Value Reference Range Interpretation Comme nts GLUCOSE (test code = 2217) 252 MG/DL BUN (test code = 2208) 13 MG/DL CREATININE (test code = 2214) 0.57 MG/DL eGFR AMER. (test cod e = 11597) 131 ML/MIN/1.73 eGFR NON- AMER. (test code = 86035) 113 ML/MIN/1.73 CALC BUN/CREAT (test code = [...] code = 2219) 16 U/L COMPREHENSIVE METABOLIC [id number] 00:00:00* Test Item Value Reference Range Interpretation Comme nts GLUCOSE (test code = 2217) 252 MG/DL BUN (test code = 2208) 13 MG/DL CREATININE (test code = 2214) 0.57 MG/DL eGFR AMER. (test cod e = 84708) 131 ML/MIN/1.73 eGFR NON- AMER. (test code = 65960) 113 ML/MIN/1.73 CALC BUN/CREAT (test code = [...] (test code = 2219) 16 U/L LIPID [id number] 00:00:00* Test Item Value Reference Range Interpretation Comme nts CHOLESTEROL (test code = 2210) 167 MG/DL TRIGLYCERIDES (test code = 2232) 118 MG/DL HDL CHOLESTEROL (test code = 2220) 57 MG/DL CALC LDL CHOL (test code = 2237) 86 MG/DL RISK RATIO LDL/HDL (test cod e = 2238) 1.52 RATIO LIPID [id number] 00:00:00* Test Item Value Reference Range Interpretation Comme nts CHOLESTEROL (test code = 2210) 167 MG/DL TRIGLYCERIDES (test code = 2232) 118 MG/DL HDL CHOLESTEROL (test code = 2220) 57 MG/DL CALC LDL CHOL (test code = 2237) 86 MG/DL RISK RATIO LDL/HDL (test cod e = 2238) 1.52 RATIO CBC W/AUTO [id number] 00:00:00* Test Item Value Reference Range Interpretation [...] code = 1015) 360 K/UL CBC W/AUTO [id number] 00:00:00* Test Item Value Reference Range Interpretation [...] code = 1015) 360 K/UL CBC W/AUTO [id number] 00:00:00* Test Item Value Reference Range Interpretation [...] (test code = 1015) 360 K/UL HEMOGLOBIN [id number] 00:00:00* Test Item Value Reference Range Interpretation Comme nts HEMOGLOBIN A1c (test code = 30853) 9.5 % HEMOGLOBIN [id number] 00:00:00* Test Item Value Reference Range Interpretation Comme nts HEMOGLOBIN A1c (test code = 93141) 9.5 % HEMOGLOBIN [id number] 00:00:00* Test Item Value Reference Range Interpretation Comme nts HEMOGLOBIN A1c (test code = 79752) 9.5 % THYROID II PROFILE (T3U, T4, [...] code = 2821) 2.3 UIU/ML COMPREHENSIVE METABOLIC [id number] 00:00:00* Test Item Value Reference Range Interpretation Comme nts GLUCOSE (test code = 2217) 252 MG/DL BUN (test code = 2208) 13 MG/DL CREATININE (test code = 2214) 0.57 MG/DL eGFR AMER. (test cod e = 28067) 131 ML/MIN/1.73 eGFR NON- AMER. (test code = 65193) 113 ML/MIN/1.73 CALC BUN/CREAT (test code = [...] code = 2219) 16 U/L COMPREHENSIVE METABOLIC [id number] 00:00:00* Test Item Value Reference Range Interpretation Comme nts GLUCOSE (test code = 2217) 252 MG/DL BUN (test code = 2208) 13 MG/DL CREATININE (test code = 2214) 0.57 MG/DL eGFR AMER. (test cod e = 72102) 131 ML/MIN/1.73 eGFR NON- AMER. (test code = 96218) 113 ML/MIN/1.73 CALC BUN/CREAT (test code = [...] (test code = 2219) 16 U/L LIPID [id number] 00:00:00* Test Item Value Reference Range Interpretation Comme nts CHOLESTEROL (test code = 2210) 167 MG/DL TRIGLYCERIDES (test code = 2232) 118 MG/DL HDL CHOLESTEROL (test code = 2220) 57 MG/DL CALC LDL CHOL (test code = 2237) 86 MG/DL RISK RATIO LDL/HDL (test cod e = 2238) 1.52 RATIO LIPID [id number] 00:00:00* Test Item Value Reference Range Interpretation Comme nts CHOLESTEROL (test code = 2210) 167 MG/DL TRIGLYCERIDES (test code = 2232) 118 MG/DL HDL CHOLESTEROL (test code = 2220) 57 MG/DL CALC LDL CHOL (test code = 2237) 86 MG/DL RISK RATIO LDL/HDL (test cod e = 2238) 1.52 RATIO CBC W/AUTO [id number] 00:00:00* Test Item Value Reference Range Interpretation [...] code = 1015) 360 K/UL CBC W/AUTO [id number] 00:00:00* Test Item Value Reference Range Interpretation [...] code = 1015) 360 K/UL CBC W/AUTO [id number] 00:00:00* Test Item Value Reference Range Interpretation [...] (test code = 1015) 360 K/UL HEMOGLOBIN [id number] 00:00:00* Test Item Value Reference Range Interpretation Comme nts HEMOGLOBIN A1c (test code = 69505) 9.5 % HEMOGLOBIN [id number] 00:00:00* Test Item Value Reference Range Interpretation Comme nts HEMOGLOBIN A1c (test code = 28289) 9.5 % COMPREHENSIVE METABOLIC [id number] 00:00:00* Test Item Value Reference Range Interpretation Comme nts GLUCOSE (test code = 2217) 195 MG/DL BUN (test code = 2208) 14 MG/DL CREATININE (test code = 2214) 0.55 MG/DL eGFR AMER. (test cod e = 50375) 132 ML/MIN/1.73 eGFR NON- AMER. (test code = 27527) 114 ML/MIN/1.73 CALCULATED BUN/CREAT (test code = [...] (test code = 2219) 21 U/L HEMOGLOBIN [id number] 00:00:00* Test Item Value Reference Range Interpretation Comme nts HEMOGLOBIN A1c (test code = 40145) 9.9 % HEMOGLOBIN [id number] 00:00:00* Test Item Value Reference Range Interpretation Comme nts HEMOGLOBIN A1c (test code = 87333) 9.9 % HEMOGLOBIN [id number] 00:00:00* Test Item Value Reference Range Interpretation Comme nts HEMOGLOBIN A1c (test code = 04283) 9.9 % CBC W/AUTO [id number] 00:00:00* Test Item Value Reference Range Interpretation [...] code = 1015) 352 K/UL CBC W/AUTO [id number] 00:00:00* Test Item Value Reference Range Interpretation [...] code = 1015) 352 K/UL CBC W/AUTO [id number] 00:00:00* Test Item Value Reference Range Interpretation [...] (test code = 2821) 1.3 UIU/ML LIPID [id number] 00:00:00* Test Item Value Reference Range Interpretation Comme nts CHOLESTEROL (test code = 2210) 167 MG/DL TRIGLYCERIDES (test code = 2232) 113 MG/DL HDL CHOLESTEROL (test code = 2220) 53 MG/DL CALCULATED LDL CHOL (test co de = 2237) 91 MG/DL RISK RATIO LDL/HDL (test cod e = 2238) 1.72 RATIO LIPID [id number] 00:00:00* Test Item Value Reference Range Interpretation Comme nts CHOLESTEROL (test code = 2210) 167 MG/DL TRIGLYCERIDES (test code = 2232) 113 MG/DL HDL CHOLESTEROL (test code = 2220) 53 MG/DL CALCULATED LDL CHOL (test co de = 2237) 91 MG/DL RISK RATIO LDL/HDL (test cod e = 2238) 1.72 RATIO COMPREHENSIVE METABOLIC [id number] 00:00:00* Test Item Value Reference Range Interpretation Comme nts GLUCOSE (test code = 2217) 195 MG/DL BUN (test code = 2208) 14 MG/DL CREATININE (test code = 2214) 0.55 MG/DL eGFR AMER. (test cod e = 52155) 132 ML/MIN/1.73 eGFR NON- AMER. (test code = 62738) 114 ML/MIN/1.73 CALCULATED BUN/CREAT (test code = [...] code = 2219) 21 U/L COMPREHENSIVE METABOLIC [id number] 00:00:00* Test Item Value Reference Range Interpretation Comme nts GLUCOSE (test code = 2217) 195 MG/DL BUN (test code = 2208) 14 MG/DL CREATININE (test code = 2214) 0.55 MG/DL eGFR AMER. (test cod e = 92444) 132 ML/MIN/1.73 eGFR NON- AMER. (test code = 70884) 114 ML/MIN/1.73 CALCULATED BUN/CREAT (test code = [...] (test code = 2219) 21 U/L HEMOGLOBIN [id number] 00:00:00* Test Item Value Reference Range Interpretation Comme nts HEMOGLOBIN A1c (test code = 77526) 9.9 % HEMOGLOBIN [id number] 00:00:00* Test Item Value Reference Range Interpretation Comme nts HEMOGLOBIN A1c (test code = 88446) 9.9 % HEMOGLOBIN [id number] 00:00:00* Test Item Value Reference Range Interpretation Comme nts HEMOGLOBIN A1c (test code = 82106) 9.9 % CBC W/AUTO [id number] 00:00:00* Test Item Value Reference Range Interpretation [...] code = 1015) 352 K/UL CBC W/AUTO [id number] 00:00:00* Test Item Value Reference Range Interpretation [...] (test code = 2821) 1.3 UIU/ML LIPID [id number] 00:00:00* Test Item Value Reference Range Interpretation Comme nts CHOLESTEROL (test code = 2210) 167 MG/DL TRIGLYCERIDES (test code = 2232) 113 MG/DL HDL CHOLESTEROL (test code = 2220) 53 MG/DL CALCULATED LDL CHOL (test co de = 2237) 91 MG/DL RISK RATIO LDL/HDL (test cod e = 2238) 1.72 RATIO COMPREHENSIVE METABOLIC [id number] 00:00:00* Test Item Value Reference Range Interpretation Comme nts GLUCOSE (test code = 2217) 195 MG/DL BUN (test code = 2208) 14 MG/DL CREATININE (test code = 2214) 0.55 MG/DL eGFR AMER. (test cod e = 87723) 132 ML/MIN/1.73 eGFR NON- AMER. (test code = 69240) 114 ML/MIN/1.73 CALCULATED BUN/CREAT (test code = [...] (test code = 2219) 21 U/L HEMOGLOBIN [id number] 00:00:00* Test Item Value Reference Range Interpretation Comme nts HEMOGLOBIN A1c (test code = 44766) 9.9 % HEMOGLOBIN [id number] 00:00:00* Test Item Value Reference Range Interpretation Comme nts HEMOGLOBIN A1c (test code = 03223) 9.9 % CBC W/AUTO [id number] 00:00:00* Test Item Value Reference Range Interpretation [...] code = 1015) 352 K/UL CBC W/AUTO [id number] 00:00:00* Test Item Value Reference Range Interpretation [...] code = 1015) 352 K/UL CBC W/AUTO [id number] 00:00:00* Test Item Value Reference Range Interpretation [...] (test code = 2821) 1.3 UIU/ML LIPID [id number] 00:00:00* Test Item Value Reference Range Interpretation Comme nts CHOLESTEROL (test code = 2210) 167 MG/DL TRIGLYCERIDES (test code = 2232) 113 MG/DL HDL CHOLESTEROL (test code = 2220) 53 MG/DL CALCULATED LDL CHOL (test co de = 2237) 91 MG/DL RISK RATIO LDL/HDL (test cod e = 2238) 1.72 RATIO LIPID [id number] 00:00:00* Test Item Value Reference Range Interpretation Comme nts CHOLESTEROL (test code = 2210) 167 MG/DL TRIGLYCERIDES (test code = 2232) 113 MG/DL HDL CHOLESTEROL (test code = 2220) 53 MG/DL CALCULATED LDL CHOL (test co de = 2237) 91 MG/DL RISK RATIO LDL/HDL (test cod e = 2238) 1.72 RATIO COMPREHENSIVE METABOLIC [id number] 00:00:00* Test Item Value Reference Range Interpretation Comme nts GLUCOSE (test code = 2217) 195 MG/DL BUN (test code = 2208) 14 MG/DL CREATININE (test code = 2214) 0.55 MG/DL eGFR AMER. (test cod e = 42233) 132 ML/MIN/1.73 eGFR NON- AMER. (test code = 36576) 114 ML/MIN/1.73 CALCULATED BUN/CREAT (test code = [...] code = 2219) 21 U/L COMPREHENSIVE METABOLIC [id number] 00:00:00* Test Item Value Reference Range Interpretation Comme nts GLUCOSE (test code = 2217) 195 MG/DL BUN (test code = 2208) 14 MG/DL CREATININE (test code = 2214) 0.55 MG/DL eGFR AMER. (test cod e = 21354) 132 ML/MIN/1.73 eGFR NON- AMER. (test code = 80657) 114 ML/MIN/1.73 CALCULATED BUN/CREAT (test code = [...] (test code = 2219) 21 U/L HEMOGLOBIN [id number] 00:00:00* Test Item Value Reference Range Interpretation Comme nts HEMOGLOBIN A1c (test code = 15122) 9.9 % HEMOGLOBIN [id number] 00:00:00* Test Item Value Reference Range Interpretation Comme nts HEMOGLOBIN A1c (test code = 18587) 9.9 % HEMOGLOBIN [id number] 00:00:00* Test Item Value Reference Range Interpretation Comme nts HEMOGLOBIN A1c (test code = 47640) 9.9 % CBC W/AUTO [id number] 00:00:00* Test Item Value Reference Range Interpretation [...] code = 1015) 352 K/UL CBC W/AUTO [id number] 00:00:00* Test Item Value Reference Range Interpretation [...] code = 1015) 352 K/UL CBC W/AUTO [id number] 00:00:00* Test Item Value Reference Range Interpretation [...] (test code = 2821) 1.3 UIU/ML LIPID [id number] 00:00:00* Test Item Value Reference Range Interpretation Comme nts CHOLESTEROL (test code = 2210) 167 MG/DL TRIGLYCERIDES (test code = 2232) 113 MG/DL HDL CHOLESTEROL (test code = 2220) 53 MG/DL CALCULATED LDL CHOL (test co de = 2237) 91 MG/DL RISK RATIO LDL/HDL (test cod e = 2238) 1.72 RATIO LIPID [id number] 00:00:00* Test Item Value Reference Range Interpretation Comme nts CHOLESTEROL (test code = 2210) 167 MG/DL TRIGLYCERIDES (test code = 2232) 113 MG/DL HDL CHOLESTEROL (test code = 2220) 53 MG/DL CALCULATED LDL CHOL (test co de = 2237) 91 MG/DL RISK RATIO LDL/HDL (test cod e = 2238) 1.72 RATIO COMPREHENSIVE METABOLIC [id number] 00:00:00* Test Item Value Reference Range Interpretation Comme nts GLUCOSE (test code = 2217) 195 MG/DL BUN (test code = 2208) 14 MG/DL CREATININE (test code = 2214) 0.55 MG/DL eGFR AMER. (test cod e = 82169) 132 ML/MIN/1.73 eGFR NON- AMER. (test code = 21611) 114 ML/MIN/1.73 CALCULATED BUN/CREAT (test code = [...]
[2024-05-10] MEDS ORDERED: ONDANSETRON 4 MG/2 ML VIAL ONE (21:32)
[2024-05-10] MEDS ORDERED: DIPHENHYDRAMINE 50 MG/ML VIAL ONE (21:33)
[2024-05-10] MEDS ORDERED: ACETAMINOPHEN 500 MG TAB ONE (21:33)
[2024-05-10] MEDS ORDERED: METOCLOPRAMIDE 10 MG/2mL INJ ONE (21:33)
[2024-05-10] MEDS ORDERED: NA CHLORIDE 0.9% 2,000 ML ONE (21:34)
[2024-05-10] MEDS ORDERED: DIPHENOX/ATROP SULF 1 TAB PO ONE (21:34)
[2024-05-10 22:41] LABS: Absolute Basophils 0.1 K/uL (0-0.5); Absolute Eosinophils 0.1 K/uL (0-0.5); Absolute Monocytes 1.1 K/uL (0.1-1.3); Basophils % 0.6 % (0-1.3); Hematocrit 39.2 % (36.0-45.0); Hemoglobin 13.2 g/dL (12.0-15.0); Lymphocytes % 19.4 % (15.3-44.8); MCH 29.3 pg (27.0-35.0); MCHC 33.6 g/dL (32.0-36.0); MCV 87.3 fL (80-100); MPV 8.6 fL (7.6-11.3); Monocytes % 11.1 % (3.3-12.3); Neutrophils % 67.9 % (41.7-73.7); Nucleated Red Blood Cells % 0.2 % (0-0); Platelets 323 thou/uL (152-406); Red Cell Distribution Width 13.2 % (12.1-15.2)
[2024-05-10 22:48] LABS: Albumin 3.2 g/dL (3.4-5.0); Albumin/Globulin Ratio 0.8 (1.1-1.8); Anion Gap 6.6 mEq/L (5.0-15.0); Bilirubin Total 0.5 mg/dL (0.2-1.0); Globulin 4.2 g/dL (2.3-3.5); Potassium 3.6 mEq/L (3.5-5.1); Protein, Total 7.4 g/dL (6.4-8.2)
[2024-05-10 22:50] LABS: SARS-CoV-2 Antigen CONTROL BLUE LINE VIS/BG OK; SARS-CoV-2 Antigen Rapid Res Negative (Negative)
--- NOTE | 2024-05-11 00:15 | ER ---
Nurse's Notes [facility] Name: Tova Ames Age: 53 yrs Sex: Female : 1970 Arrival Date: 05/10/2024 Time: 20:37 Bed 8 Private MD: Diagnosis: Acute viral gastroenteritis, acute heat exhaustion, nausea vomiting diarrhea Presentation: 05/10 20:54 Chief complaint: Patient states: Pt c/o fever/chills, nausea, vomiting, diarrhea, tl4 headache, and muscle spasms since yesterday. Pt states TMAX 107.1 at home. Pt also c/o that she has not sweat at all today. Coronavirus screen: chills, congestion, diarrhea, difficulty breathing, fatigue, fever, headache, muscle pain, nausea, vomiting. Ebola Screen: No symptoms or risks identified at this time. Initial Sepsis Screen: Does the patient meet any 2 criteria? No. Patient's initial sepsis screen is negative. Does the patient have a suspected source of infection? No. Patient's initial sepsis screen is negative. Risk Assessment: Do you want to hurt yourself or someone else? Patient reports no desire to harm self or others. Onset of symptoms was May 06, 2024. 20:54 Method Of Arrival: Wheelchair tl4 20:54 Acuity: JACKIE 3 tl4 Triage Assessment: 20:59 General: Appears in no apparent distress. Behavior is calm, cooperative. Pain: tl4 Complains of pain in head and generalized body aches. EENT: No signs and/or symptoms were reported regarding the EENT system. Neuro: Level of Consciousness is awake, alert, obeys commands, Oriented to person, place, time, situation. Cardiovascular: Capillary refill < 3 seconds Patient's skin is warm and dry. Respiratory: Airway is patent Respiratory effort is even, unlabored, Respiratory pattern is regular, symmetrical. GI: Reports diarrhea, nausea, vomiting. : No signs and/or symptoms were reported regarding the genitourinary system. Derm: No signs and/or symptoms reported regarding the dermatologic system. Musculoskeletal: Reports muscle spasms. 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 - Infectious Disease History:: Denies. - Social history:: Smoking status: Patient denies any tobacco usage or history of. - Family history:: not pertinent. Screenin:30 [facility] ED Fall Risk Assessment (Adult) History of falling in the last 3 months, jw7 including since admission No falls in past 3 months (0 pts) Confusion or Disorientation No (0 pts) Intoxicated or Sedated No (0 pts) Impaired Gait No (0 pts) Mobility Assist Device Used No (0 pt) Altered Elimination No (0 pt) Score/Fall Risk Level 0 - 2 = Low Risk Oriented to surroundings, Maintained a safe environment, Educated pt \T\ family on fall prevention, incl call for assistance when getting out of bed. Abuse screen: Denies threats or abuse. Denies injuries from another. Nutritional screening: No deficits noted. Tuberculosis screening: No symptoms or risk factors identified. Assessment: 21:30 General: Appears in no apparent distress. comfortable, Behavior is calm, cooperative, jw7 appropriate for age. Pain: Complains of pain in Head Pain does not radiate. Pain currently is 8 out of 10 on a pain scale. Quality of pain is described as throbbing, Pain began suddenly, Is continuous. Neuro: Level of Consciousness is awake, alert, obeys commands, Oriented to person, place, time, situation, Appropriate for age. 21:30 Cardiovascular: Heart tones S1 S2 present Capillary refill < 3 seconds Clubbing of nail jw7 beds is absent JVD is absent Patient's skin is warm and dry. Respiratory: Airway is patent Trachea midline Respiratory effort is even, unlabored, Respiratory pattern is regular, symmetrical. GI: Abdomen is round non-distended, Bowel sounds present X 4 quads. Abd is soft and non tender X 4 quads. : No deficits noted. No signs and/or symptoms were reported regarding the genitourinary system. EENT: No deficits noted. No signs and/or symptoms were reported regarding the EENT system. Derm: Skin is intact, is healthy with good turgor, Skin is dry, Skin is normal, Skin temperature is warm. Musculoskeletal: Circulation, motion, and sensation intact. Range of motion: intact in all extremities. 22:30 Reassessment: Patient appears in no apparent distress at this time. No changes from [facility] previously documented assessment. Patient and/or family updated on plan of care and expected duration. Pain level reassessed. Patient is alert, oriented x 3, equal unlabored respirations, skin warm/dry/pink. 23:28 Reassessment: Patient appears in no apparent distress at this time. No changes from [facility] previously documented assessment. Patient and/or family updated on plan of care and expected duration. Pain level reassessed. Patient is alert, oriented x 3, equal unlabored respirations, skin warm/dry/pink. 05/11 00:26 Reassessment: Patient appears in no apparent distress at this time. No changes from [facility] previously documented assessment. Patient and/or family updated on plan of care and expected duration. Pain level reassessed. Patient is alert, oriented x 3, equal unlabored respirations, skin warm/dry/pink. Vital Signs: 05/10 20:54 BP 135 / 70; Pulse 110; Resp 16; Temp 99.5(O); Pulse Ox 97% on R/A; Weight 78.93 kg; tl4 Height 5 ft. 2 in. ; Pain 10/10; 22:00 BP 148 / 84; Pulse 105; Resp 18 S; Pulse Ox 95% on R/A; jw7 23:00 BP 122 / 71; Pulse 95; Resp 17 S; Pulse Ox 93% on R/A; jw7 05/11 00:00 BP 114 / 70; Pulse 91; Resp 16 S; Temp 99.8(O); Pulse Ox 98% on R/A; jw7 05/10 20:54 Body Mass Index 31.82 (78.93 kg, 157.48 cm) tl4 05/10 20:54 Pain Scale: Adult tl4 Brittany Coma Score: 00:08 Eye Response: spontaneous(4). Motor Response: obeys commands(6). Verbal Response: sp4 oriented(5). Total: 15. ED Course: 05/10 20:45 Patient arrived in ED. gm2 20:48 Giuseppe Lindo MD is Attending Physician. sp4 20:57 Triage completed. tl4 21:00 Arm band placed on right wrist. tl4 21:30 Patient has correct armband on for positive identification. Bed in low position. Call jw7 light in reach. Side rails up X 1. Provided Education on: use of call light. 21:30 Initial lab(s) drawn, by me, sent to lab. COVID swab sent to lab. Inserted saline lock: jw7 20 gauge in right antecubital area, using aseptic technique. Blood collected. Flushed with 10 mL NS. 05/11 00:27 No provider procedures requiring assistance completed. IV discontinued, intact, jw7 bleeding controlled, No redness/swelling at site. Pressure dressing applied. Administered Medications: 05/10 21:45 Drug: NS 0.9% IV 1000 ml IV at 1 bolus Per protocol; 1000 mL bolus Route: IV; Rate: 1 jw7 bolus; Site: right antecubital; 05/11 00:26 Follow up: Response: No adverse reaction; IV Status: Completed infusion; IV Intake: jw7 1000ml 05/10 21:45 Drug: Ondansetron IVP 4 mg IVP once; over 2 minutes Route: IVP; Site: right antecubital;jw7 05/11 00:26 Follow up: Response: No adverse reaction; Marked relief of symptoms 7 05/10 21:45 Drug: metoCLOPramide IVP 10 mg IVP once; over 1 to 2 minutes Route: IVP; Site: right jw antecubital; 05/11 00:25 Follow up: Response: No adverse reaction; Marked relief of symptoms 7 05/10 21:45 Drug: diphenhydrAMINE IVP 25 mg IVP once Route: IVP; Site: right antecubital; jw7 05/11 00:25 Follow up: Response: No adverse reaction; Marked relief of symptoms [facility] 05/10 21:45 Drug: NS 0.9% IV 1000 ml IV at 1 bolus Per protocol; 1000 mL bolus Route: IV; Rate: 1 jw7 bolus; Site: right antecubital; 05/11 00:25 Follow up: Response: No adverse reaction; IV Status: Completed infusion; IV Intake: jw7 1000ml 05/10 22:11 Drug: Acetaminophen PO 1000 mg PO once Route: PO; jw7 05/11 00:25 Follow up: Response: No adverse reaction; Marked relief of symptoms 7 05/10 22:11 Drug: Diphenoxylate-Atropine PO 2 tabs PO once Route: PO; 7 05/11 00:25 Follow up: Response: No adverse reaction jw7 Medication: 00:27 VIS not applicable for this client. jw7 Intake: 00:25 IV: 1000ml; Total: 1000ml. 7 00:26 IV: 1000ml; Total: 2000ml. jw7 Outcome: 00:15 Discharge ordered by MD. rodriguez 00:27 Discharged to home ambulatory, jw7 00:27 Condition: stable 00:27 Discharge instructions given to patient, Instructed on discharge instructions, follow up and referral plans. medication usage, Demonstrated understanding of instructions, follow-up care, medications, Prescriptions given X 2, 00:28 Patient left the ED. jw7 Signatures: Shaina Shay, RN RN jw7 Giuseppe Lindo MD MD sp4 Melanie Negrete gm2 Ubaldo Garcia RN RN tl4
--- NOTE | 2024-05-11 00:16 | EDPHYS ---
Physician Documentation [facility] Name: Tova Ames Age: 53 yrs Sex: Female : 1970 Arrival Date: 05/10/2024 Time: 20:37 Bed 8 Private MD: ED Physician Giuseppe Lindo HPI: 05/11 00:08 This 53 yrs old Female presents to ER via Wheelchair with complaints of Heat sp4 Exposure, Fever, Headache, General Weakness. 00:08 53-year-old female presents with acute onset of fever generalized weakness headache sp4 feeling unwell . also nausea vomiting diarrhea.. 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 - Infectious Disease History:: Denies. - Social history:: Smoking status: Patient denies any tobacco usage or history of. - Family history:: not pertinent. ROS: 05/11 00:08 Constitutional: Positive for fever, chills, headache, generalized weakness, nausea sp4 vomiting diarrhea. All other systems are negative, Exam: 00:08 Constitutional: This is a well developed, well nourished patient who is awake, alert, sp4 and in no acute distress. Head/Face: Normocephalic, atraumatic. Eyes: Pupils equal round and reactive to light, extra-ocular motions intact. Lids and lashes normal. Conjunctiva and sclera are not injected. Cornea within normal limits. Periorbital areas with no swelling, redness, or edema. ENT: Nares patent. No nasal discharge, no septal abnormalities noted. Tympanic membranes are normal and external auditory canals are clear. Oropharynx with no redness, swelling, or masses, exudates, or evidence of obstruction, uvula midline. Mucous membranes moist. Neck: Trachea midline, no thyromegaly or masses palpated, and no cervical lymphadenopathy. Supple, full range of motion without nuchal rigidity, or vertebral point tenderness. Chest/axilla: Normal chest wall appearance and motion. Nontender with no deformity. No lesions are appreciated. Cardiovascular: Regular rate and rhythm with a normal S1 and S2. No gallops, murmurs, or rubs. Normal PMI, no JVD. No pulse deficits. Respiratory: Lungs have equal breath sounds bilaterally, clear to auscultation and percussion. No rales, rhonchi or wheezes noted. No increased work of breathing, no retractions or nasal flaring. Abdomen/GI: Soft, with normal bowel sounds. No distension or tympany. No guarding or rebound. No evidence of tenderness throughout. Back: No spinal tenderness. No costovertebral tenderness. Skin: Warm, dry with normal turgor. Normal color with no rashes, no lesions, and no evidence of cellulitis. MS/ Extremity: Pulses equal, no cyanosis. Neurovascular intact. Full, normal range of motion. Neuro: Awake and alert, GCS 15, oriented to person, place, time, and situation. Cranial nerves II-XII grossly intact. Motor strength 5/5 in all extremities. Sensory grossly intact. Psych: Awake, alert, with orientation to person, place and time. Behavior, mood, and affect are within normal limits Vital Signs: 05/10 20:54 BP 135 / 70; Pulse 110; Resp 16; Temp 99.5(O); Pulse Ox 97% on R/A; Weight 78.93 kg; tl4 Height 5 ft. 2 in. ; Pain 10/10; 22:00 BP 148 / 84; Pulse 105; Resp 18 S; Pulse Ox 95% on R/A; jw7 23:00 BP 122 / 71; Pulse 95; Resp 17 S; Pulse Ox 93% on R/A; jw7 05/11 00:00 BP 114 / 70; Pulse 91; Resp 16 S; Temp 99.8(O); Pulse Ox 98% on R/A; jw7 05/10 20:54 Body Mass Index 31.82 (78.93 kg, 157.48 cm) tl4 05/10 20:54 Pain Scale: Adult tl4 [place] Coma Score: 00:08 Eye Response: spontaneous(4). Motor Response: obeys commands(6). Verbal Response: sp4 oriented(5). Total: 15. MDM: 05/10 20:50 Patient medically screened. sp4 05/11 00:08 Differential diagnosis: viral Infection, bacterial infection, bronchitis, sp4 gastroenteritis. Data reviewed: vital signs, nurses notes, lab test result(s), electrolytes, hepatic panel. Consideration of Admission/Observation Escalation of care including admission/observation considered. ED course: Patient advised to consume clear liquid diet. Also advised to take Lomotil as needed for diarrhea Phenergan as needed for nausea. Bentyl as needed for fever combined with 400 mg ibuprofen every 6 hours. 05/10 20:50 Order name: CBC with Diff; Complete Time: 23:20 sp4 05/10 20:50 Order name: CMP; Complete Time: 23:20 sp4 05/10 20:50 Order name: Lipase; Complete Time: 23:20 sp4 05/10 20:50 Order name: CK; Complete Time: 23:20 sp4 05/10 21:00 Order name: SARS RAPID; Complete Time: 23:20 sp4 05/11 00:27 Order name: Glucose, Ancillary Testing EDMS 05/10 20:50 Order name: IV Saline Lock; Complete Time: 22:10 sp4 05/10 20:50 Order name: Labs collected and sent; Complete Time: 22:10 sp4 05/11 00:08 Order name: Accucheck Blood Glucose; Complete Time: 00:25 sp4 Administered Medications: 05/10 21:45 Drug: NS 0.9% IV 1000 ml IV at 1 bolus Per protocol; 1000 mL bolus Route: IV; Rate: 1 jw7 bolus; Site: right antecubital; 05/11 00:26 Follow up: Response: No adverse reaction; IV Status: Completed infusion; IV Intake: jw7 1000ml 05/10 21:45 Drug: Ondansetron IVP 4 mg IVP once; over 2 minutes Route: IVP; Site: right antecubital;[facility] 05/11 00:26 Follow up: Response: No adverse reaction; Marked relief of symptoms 7 05/10 21:45 Drug: metoCLOPramide IVP 10 mg IVP once; over 1 to 2 minutes Route: IVP; Site: right [facility] antecubital; 05/11 00:25 Follow up: Response: No adverse reaction; Marked relief of symptoms [facility] 05/10 21:45 Drug: diphenhydrAMINE IVP 25 mg IVP once Route: IVP; Site: right antecubital; 05/11 00:25 Follow up: Response: No adverse reaction; Marked relief of symptoms [facility] 05/10 21:45 Drug: NS 0.9% IV 1000 ml IV at 1 bolus Per protocol; 1000 mL bolus Route: IV; Rate: 1 jw7 bolus; Site: right antecubital; 05/11 00:25 Follow up: Response: No adverse reaction; IV Status: Completed infusion; IV Intake: jw7 1000ml 05/10 22:11 Drug: Acetaminophen PO 1000 mg PO once Route: PO; 7 05/11 00:25 Follow up: Response: No adverse reaction; Marked relief of symptoms 7 05/10 22:11 Drug: Diphenoxylate-Atropine PO 2 tabs PO once Route: PO; 7 05/11 00:25 Follow up: Response: No adverse reaction jw7 Disposition Summary: 05/11/24 00:15 Discharge Ordered Notes: Location: Home sp4 Problem: new sp4 Symptoms: have improved sp4 Condition: Stable sp4 Diagnosis - Acute viral gastroenteritis, acute heat exhaustion, nausea vomiting diarrhea sp4 Followup: sp4 - With: Private Physician - When: 7 - 10 days - Reason: Recheck today's complaints Discharge Instructions: - Discharge Summary Sheet sp4 - Viral Gastroenteritis, Adult, [id number] sp4 Forms: - Patient Portal Instructions sp4 Prescriptions: - Lomotil 2.5-0.025 mg Oral tablet - take 1 tablet ORAL route every 6 hours As needed PRN diarrhea; 30 tablet; sp4 Refills: 0, Product Selection Permitted - promethazine 25 mg Oral tablet - take 1 tablet ORAL route every 6 hours As needed PRN nausea; 30 tablet; sp4 Refills: 0, Product Selection Permitted Signatures: [facility] Shaina Hernandez RN RN jw7 Giuseppe Lindo MD MD sp4 Ubaldo Garcia RN RN tl4 Corrections: (The following items were deleted from the chart) 05/10 20:51 20:51 CREATINE PHOSPHOKINASE+[id number].BRZ ordered. EDMS EDMS
[2024-05-11 05:56] VITALS: BP 114/70; TEMP 99.8; O2SAT 98
== END 2024-05-11 00:28 | disposition home or self-care (01) ==
LOC: ER 20:37
DX: A08.4 Viral intestinal infection, unspecified (principal); T67.5XXA Heat exhaustion, unspecified, initial encounter; Z11.52 Encounter for screening for COVID-19
CPT/HCPCS: 96361; 85025; 36415; 82550; 82947; 83690; 80053; 96375; 96374; 99284; 87811; J2765; J1200; J2405; J7030

== ENCOUNTER 2024-07-27 17:21 | Emergency (ER) | payer OTHER ==
--- OUTSIDE RECORDS SUMMARY | 2024-07-27 17:31 | XMS REPORT | Continuity of Care Document ---
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 prednisone 10 mg tablet 03-01 00:00: 00 [...] prednisone 10 mg tablet 03-01 00:00: 00 Yes 1mg Óscar Zavala azithromyci n 250 mg tablet 03-01 00:00: 00 Yes mg Óscar Zavala clarithromy hoa 500 mg tablet 01-20 00:00: 00 No 1mg metronidazo le 500 mg tablet 01-20 00:00: 00 No 1mg omeprazole 20 mg capsule,del ayed release -16 00:00: 00 No 1mg clarithromy hoa 500 mg tablet - 00:00: 00 No 1mg metronidazo le 500 [...] hoa 500 mg tablet 01-20 00:00: 00 Yes 1mg Óscar Zavala metronidazo le 500 mg tablet 01-20 00:00: 00 Yes 1mg Óscar Zavala omeprazole 20 mg capsule, ayed release 01-20 00:00: 00 Yes 1mg Óscar Zavala Dose Unknown 01-18 00:00: 00 No Dose [...] mg capsule 01-18 00:00: 00 No 1mg Dose Unknown 01-18 00:00: 00 Yes Óscar Zavala Dose Unknown 01-18 00:00: 00 Yes Óscar Zavala lidocaine 5 % topical patch 01-18 00:00: 00 Yes 1% Óscar Zavala losartan 50 mg tablet 01-18 00:00: 00 Yes 1mg Óscar Zavala glimepiride 4 mg tablet 01-18 00:00: 00 Yes 1mg Óscar Zavala duloxetine 60 mg capsule,del ayed release 01-18 00:00: 00 Yes 1mg Óscar Zavala pregabalin 100 mg capsule 01-18 00:00: 00 Yes 1mg Óscar Zavala ondansetron (ZOFRAN (PF)) injection 4 mg 12-17 18:45: 00 12-17 17:46 :00 No 4mg 4 mg, Slow IV Push, ONCE, 1 dose, 12/17/20 at 1245, SARAH [facility] NaCl 0.9% (NS) bolus infusion 1,000 mL 12-17 18:45: 00 12-17 18:54 :00 No 1000mL at 999 mL/hr, 1,000 mL, IV Infusion, ONCE, 1 dose, 12/17/20 at 1245, STAT [facility] ondansetron 4 mg disintegrat ing tablet 12-17 00:00: 00 Yes [id number] 4mg Take 1 tablet by mouth every 8 (eight) hours as needed for Nausea and Vomiting (N/V). [facility] pantoprazol e 40 mg EC tablet 12-17 00:00: 00 Yes [id number] 40mg Take 1 tablet by mouth daily. [facility] ProAir HFA 90 mcg/actuati on aerosol [...] 250 mcg-50 mcg/dose powder for inhalation 0 224 00:00: 00 No 1mcg/do se losartan 50 mg tablet 0 224 00:00: 00 No 1mg duloxetine 60 mg capsule,del ayed release 0 2 00:00: 00 No 1mg esomeprazol e magnesium 40 mg capsule,del ayed release 11-30 00:00: 00 No 1mg ProAir HFA 90 mcg/actuati on aerosol inhaler 0 11-30 00:00: 00 No 12mcg/a ctuatio n Advair Diskus 250 mcg-50 mcg/dose powder for inhalation 0 11-30 00:00: 00 No 1mcg/do se ProAir HFA 90 mcg/actuati on aerosol inhaler 0 11-30 00:00: 00 No 12mcg/a ctuatio n Advair Diskus 250 mcg-50 mcg/dose powder for inhalation 0 11-30 00:00: 00 No 1mcg/do se losartan 50 mg tablet 0 2 00:00: 00 No 1mg duloxetine 60 mg capsule,del ayed release 11-30 00:00: 00 No 1mg losartan 50 mg tablet 0 11-30 00:00: 00 No 1mg esomeprazol e magnesium 40 mg capsule,del ayed release 0 2 00:00: 00 No 1mg duloxetine 60 mg capsule,del ayed release 0 11-30 00:00: 00 No 1mg esomeprazol e magnesium 40 mg capsule,del ayed release 0 224 00:00: 00 No 1mg ProAir HFA 90 mcg/actuati on aerosol inhaler 0 224 00:00: 00 Yes 12mcg/a ctuatio alexis Zavala Advair Diskus 250 mcg-50 mcg/dose powder for inhalation 0 2-24 00:00: 00 Yes 1mcg/do se Óscar Rose Lucas losartan 50 mg tablet 11-30 00:00: 00 Yes 1mg Óscar Zavala duloxetine 60 mg capsule,del ayed release 11-30 00:00: 00 Yes 1mg Óscar Zavala esomeprazol e magnesium 40 mg capsule,del ayed release 11-30 00:00: 00 Yes 1mg Óscar Zavala azithromyci n 250 mg tablet 11-01 00:00: 00 No mg azithromyci n 250 mg tablet 11-01 00:00: 00 No mg azithromyci n 250 mg tablet 11-01 00:00: 00 No mg azithromyci n 250 mg tablet 11-01 00:00: 00 No mg azithromyci n 250 mg tablet 11-01 00:00: 00 Yes mg Óscar Zavala iohexol (OMNIPAQUE 350 BULK-100 mL) injection 100 mL 10-30 14:30: 00 10-30 14:21 :00 No 100mL 100 mL, Intravenou s, ONCE, 1 dose, 10/30/20 at 0830, Routine [facility] NaCl 0.9% (NS) bolus infusion 1,000 mL 10-30 13:00: 00 10-30 15:20 :00 No 1000mL at 999 mL/hr, 1,000 mL, IV Infusion, ONCE, 1 dose, 10/30/20 at 0700, SARAH [facility] benzonatate 100 mg capsule 10-30 00:00: 00 Yes [id number] 100mg Take 1 capsule by mouth 3 (three) times daily as needed for Cough. [facility] chlorphenir amine 4 mg tablet 10-30 00:00: 00 Yes [id number] 4mg Take 1 tablet by mouth every 6 (six) hours as needed for Allergies or Runny nose. [facility] ondansetron 4 mg disintegrat ing tablet 10-30 00:00: 00 Yes [id number] 4mg Take 1 tablet by mouth every 8 (eight) hours as needed for Nausea and Vomiting (N/V). [facility] metoclopram zeb 10 mg tablet 10-14 00:00: 00 No 1mg metoclopram zeb 10 mg tablet 10-14 00:00: 00 No 1mg metoclopram zeb 10 mg tablet 10-14 00:00: 00 No 1mg metoclopram zeb 10 mg tablet 10-14 00:00: 00 No 1mg metoclopram zeb 10 mg tablet 10-14 00:00: 00 Yes 1mg Óscar Zavala Advair Diskus 250 mcg-50 mcg/dose powder for [...] mcg/dose powder for inhalation 10-13 00:00: 00 Yes 1mcg/do se Óscar Zavala lidocaine 5 % topical patch 10-11 00:00: [...] 5 % topical patch 10-11 00:00: 00 Yes 1% Óscar Rose Lucas glimepiride 4 mg tablet 10-11 00:00: 00 Yes 1mg Óscar Zavala naproxen 500 mg tablet,tony yed release 10-11 00:00: 00 Yes 1mg Óscar Rose Lucas sulfamethox azole 800 mg-trimetho prim 160 mg tablet 10-11 00:00: 00 Yes 1mg Óscar Rose Lucas Dose Unknown 10-11 00:00: 00 Yes Óscar Rose Lucas pregabalin 100 mg capsule 2021-0 1-05 00:00: 00 Yes 1mg Óscar Zavala ciprofloxac in HCl (CIPRO) tablet 250 mg 2019-10 01:30: 00 09-27 00:42 :00 No 250mg 250 mg, Oral, ONCE NOW, 1 dose, 09/26/20 at 1930, SARAH
Re ason for Anti-Infec tive: Documented Infection< br>Documen waldo Infection Site: Urine
D uration of Therapy: 7 days [facility] famotidine (PEPCID (PF)) injection 20 mg 2019-10 22:45: 00 09-26 22:45 :00 No 20mg 20 mg, Slow IV Push, ONCE, 1 dose, Sat09/26/20 at 1645, SARAH [facility] ondansetron (ZOFRAN (PF)) injection 4 mg 2019-10 22:45: 00 09-26 22:07 :00 No 4mg 4 mg, Slow IV Push, ONCE, 1 dose, Sat09/26/20 at 1645, SARAH [facility] proMETHazin e 25 mg tablet 2019-10 00:00: 00 Yes [id number] 25mg Take 1 tablet by mouth every 6 (six) hours as needed for Nausea and Vomiting (N/V). [facility] sucralfate 1 gram tablet 2019-10 00:00: 00 Yes [id number] 1g Take 1 tablet by mouth before meals and at bedtime. [facility] ciprofloxac in HCl 250 mg tablet 2019-10 00:00: 00 10-02 05:59 :00 No [id number] 250mg Take 1 tablet by mouth 2 (two) times daily for 5 days. [facility] Victoza 3-Anthony 0.6 mg/0.1 mL (18 [...] subcutaneou s pen injector 2019-10 00:00: 00 Yes (18 mg/3 mL) Óscar Rose Lucas amitriptyli ne 50 mg tablet 2019-10 00:00: 00 Yes 1mg Óscar Zavala gabapentin 400 mg capsule 2019-10 00:00: 00 Yes 1mg Óscar Rose Lucas ProAir HFA 90 mcg/actuati on aerosol inhaler [...] n dexamethaso ne 4 mg tablet 2019-10 2 00:00: 00 No 1mg levofloxaci n 500 [...] on aerosol inhaler 2019-10 2- 00:00: 00 Yes 12mcg/a ctuatio n Óscar F Lucas dexamethaso ne 4 mg tablet 2019-10 2- 00:00: 00 Yes 1mg Óscar F Lucas levofloxaci n 500 mg tablet 2019-10 2- 00:00: 00 Yes 1mg Óscar F Lucas benzonatate 200 mg capsule 2019-10 00:00: 00 Yes 1mg Óscar Zavala Bromfed DM 2 mg-30 mg-10 mg/5 mL oral syrup 2019-10 00:00: 00 Yes 5mg/5 mL Óscar Zavala iohexol (OMNIPAQUE 350 BULK-100 mL) injection 100 mL 2019-10 02:15: 00 09-02 02:15 :00 No 100mL 100 mL, Intravenou s, ONCE, 1 dose, Vanessa 09/01/20 at 2015, Routine [facility] ondansetron (ZOFRAN (PF)) injection 4 mg 2019-10 23:45: 00 09-01 22:49 :00 No 4mg 4 mg, Slow IV Push, ONCE, 1 dose, Vanessa 09/01/20 at 1745, [facility] acetaminoph en (TYLENOL) tablet 650 mg 2019-10 23:45: 00 09-01 22:49 :00 No 650mg 650 mg, Oral, ONCE, 1 dose, Vanessa 09/01/20 at 1745, [facility] NaCl 0.9% (NS) bolus infusion 1,000 mL 2019-10 22:45: 00 09-02 00:02 :00 No 1000mL at 999 mL/hr, 1,000 mL, IV Infusion, ONCE, 1 dose, [facility] 09/01/20 at 1645, [facility] azithromyci n 250 mg tablet 2019-10 00:00: 00 09-06 05:59 :00 No [id number] 250mg Take 1 tablet by mouth daily for 4 days. Take 500 mg day 1, then 250 mg days 2 to 5. [facility] prednisone 10 mg tablet 2019-10 00:00: [...] prednisone 10 mg tablet 2019-10 00:00: 00 Yes 1mg Óscar Zavala glimepiride 4 mg tablet 2019-10 00:00: 00 Yes 1mg Óscar Zavala triamcinolo ne acetonide 0.1 % topical cream [...] 0.1 % topical cream 2019-10 00:00: 00 Yes 1% Óscar Zavala ciprofloxac in 500 mg tablet 2019-10 00:00: 00 Yes 1mg Óscar Zavala amitriptyli ne 50 mg tablet 2019-10 00:00: 00 Yes 1mg Óscar Zavala metoclopram zeb 10 mg tablet 2019-10 00:00: 00 Yes 1mg Óscar Zavala cyclobenzap rine 5 mg tablet 2019-10 00:00: 00 Yes 1mg Óscar Zavala valacyclovi r 1 gram tablet 2019-10 00:00: 00 Yes 1gram Óscar Zavala pregabalin 100 mg capsule 2019-10 00:00: 00 Yes 1mg Óscar Zavala dicyclomine (BENTYL) injection 20 mg 2019-10 13:00: 00 Yes 20mg 20 mg, Intramuscu lar, QID, First dose on Sat07/26/20 at 0800, Until Discontinu ed, Routine [facility] ondansetron (ZOFRAN (PF)) injection 4 mg 2019-10 04:15: 00 07-26 03:28 :00 No 4mg 4 mg, Slow IV Push, ONCE, 1 dose, Sat07/25/20 at 2315, SARAH [facility] iohexol (OMNIPAQUE 350 BULK-150 mL) injection 120 mL 2019-10 04:15: 00 07-26 04:15 :00 No 120mL 120 mL, Intravenou s, ONCE, 1 dose, Sat07/25/20 at 2315, Routine [facility] NaCl 0.9% (NS) IV infusion 1,000 mL 2019-10 03:00: 00 Yes 1000mL at 999 mL/hr, Intravenou s, CONTINUOUS , Starting Sat07/25/20 at 2200, Until Discontinu ed, Routine [facility] ondansetron (ZOFRAN (PF)) injection 4 mg 2019-10 03:00: 00 07-26 02:14 :00 No 4mg 4 mg, Slow IV Push, ONCE, 1 dose, Sat07/25/20 at 2200, SARAH [facility] pantoprazol e (PROTONIX) 40 mg EC tablet 2019-10 00:00: 00 09-26 00:00 :00 No [id number] 40mg Take 1 tablet by mouth daily. [facility] dicyclomine 20 mg tablet 2019-10 00:00: 00 09-26 00:00 :00 No [id number] 20mg Take 1 tablet by mouth every 6 (six) hours as needed for Abdominal pain. [facility] ondansetron (ZOFRAN) 4 mg tablet 2019-10 00:00: 00 09-26 00:00 :00 No [id number] 4mg Take 1 tablet by mouth every 8 (eight) hours as needed for Nausea and Vomiting (N/V). [facility] naproxen 500 mg tablet,tony yed release 2019-10 00:00: 00 No 1mg naproxen 500 mg tablet,tony yed release 2019-10 00:00: 00 No 1mg naproxen 500 mg tablet,tony yed release 2019-10 00:00: 00 No 1mg naproxen 500 mg tablet,tony yed release 2019-10 00:00: 00 Yes 1mg Óscar Zavala Victoza 3-Anthony 0.6 mg/0.1 mL (18 mg/3 [...] subcutaneou s pen injector 06-02 00:00: 00 Yes (18 mg/3 mL) Óscar Zavala gabapentin 400 mg capsule 05-21 00:00: 00 No 1mg gabapentin 400 mg capsule 05-21 00:00: 00 No 1mg gabapentin 400 mg capsule 05-21 00:00: 00 No 1mg gabapentin 400 mg capsule 05-21 00:00: 00 Yes 1mg Óscar Zavala Actos 15 mg tablet 05-03 00:00: 00 [...] Actos 15 mg tablet 05-03 00:00: 00 Yes 1mg Óscar Zavala glipizide 5 mg tablet 05-03 00:00: 00 Yes 1mg Óscar Zavala naproxen 500 mg tablet,tony yed release 0 - 00:00: 00 Yes 1mg Óscar Zavala glimepiride 4 mg tablet 2019-0 05-03 00:00: 00 Yes 1mg Óscar Zavala Actos 15 mg tablet 0 7-16 00:00: 00 No 1mg glimepiride 2 mg tablet 0 - 00:00: 00 No 1mg Actos 15 mg tablet 2019-0 - 00:00: 00 No 1mg glimepiride 2 mg tablet 0 04-21 00:00: 00 No 1mg Actos 15 mg tablet 0 04-21 00:00: 00 No 1mg glimepiride 2 mg tablet 0 04-21 00:00: 00 No 1mg Actos 15 mg tablet 0 04-21 00:00: 00 Yes 1mg Óscar Zavala glimepiride 2 mg tablet 0 04-21 00:00: 00 Yes 1mg Óscar Zavala Singulair 10 mg tablet 0 - 00:00: 00 No 1mg Singulair 10 mg tablet 0 04-06 00:00: 00 No 1mg Singulair 10 mg tablet 0 04-06 00:00: 00 No 1mg Singulair 10 mg tablet 0 04-06 00:00: 00 Yes 1mg Óscar Zavala cyclobenzap rine 10 mg tablet 0 6-20 00:00: 00 No 1mg cyclobenzap rine 10 mg tablet 2019-0 6-20 00:00: 00 No 1mg cyclobenzap rine 10 mg tablet 0 6-20 00:00: 00 No 1mg cyclobenzap rine 10 mg tablet 0 6-20 00:00: 00 Yes 1mg Óscar Zavala metronidazo le 500 mg tablet 2019-0 2-03 00:00: 00 No 1mg metronidazo le 500 mg tablet 2019-0 2-03 00:00: 00 No 1mg metronidazo le 500 mg tablet 0 2-03 00:00: 00 No 1mg metronidazo le 500 mg tablet 2019-0 2-03 00:00: 00 Yes 1mg Óscar Zavala gabapentin 400 mg capsule 2019-0 1-27 00:00: 00 No 1mg gabapentin 400 mg capsule 11-02 00:00: 00 No 1mg gabapentin 400 mg capsule 11-02 00:00: 00 No 1mg gabapentin 400 mg capsule 11-02 00:00: 00 Yes 1mg Óscar Zavala prednisone 10 mg tablet 10-08 00:00: 00 [...] prednisone 10 mg tablet 10-08 00:00: 00 Yes mg Óscar Zavala azithromyci n 250 mg tablet 10-08 00:00: 00 Yes mg Óscar Zavala gabapentin 400 mg capsule 2018-10 00:00: 00 No 1mg gabapentin 400 mg capsule 2018-10 00:00: 00 No 1mg gabapentin 400 mg capsule 2018-10 00:00: 00 No 1mg gabapentin 400 mg capsule 2018-10 00:00: 00 Yes 1mg Óscar Zavala gabapentin 300 mg capsule 04-30 00:00: 00 No 1mg gabapentin 300 mg capsule 04-30 00:00: 00 No 1mg gabapentin 300 mg capsule 04-30 00:00: 00 No 1mg gabapentin 300 mg capsule 04-30 00:00: 00 Yes 1mg Óscar Zavala methocarbam ol (ROBAXIN) 500 mg tablet 14 00:00: 00 11-28 00:00 :00 No [id number] 500mg Take 1 tablet by mouth 3 (three) times daily as needed for Pain (scale 4-6). [facility] tra[facility]ADOL 50 mg tablet 314 00:00: 00 09-16 00:00 :00 No [id number] 50mg Take 1 tablet by mouth every 8 (eight) hours as needed for Pain (scale 4-6). [facility] naproxen 250 mg tablet 10-11 00:00: 00 Yes 250mg Take 1 tablet by mouth 2 (two) times daily with meals. [facility] traMADOL (ULTRAM) 50 mg tablet 10-11 00:00: 00 09-16 00:00 :00 No 50mg Take 1 tablet by mouth every 6 (six) hours as needed for Pain (scale 4-6). [facility] cyclobenzap rine 5 mg tablet 10-11 00:00: 00 09-26 00:00 :00 No 5mg Take 1 tablet by mouth 3 (three) times daily. [facility] Alprazolam Alprazolam 01-07 00:00: 00 Yes Stuartmurphy Morgan 1 tablet [facility] Novolin R Regular U-100 Insulin 100 unit/mL injection solution 04-13 00:00: 00 No unit/mL Novolin R Regular U-100 Insulin 100 unit/mL injection solution 04-13 00:00: 00 No unit/mL Novolin R Regular U-100 Insulin 100 unit/mL injection solution 04-13 00:00: 00 No unit/mL Novolin R Regular U-100 Insulin 100 unit/mL injection solution 04-13 00:00: 00 Yes unit/mL Óscar Zavala Novolin R 100 unit/mL injection solution 03-07 00:00: 00 No unit/mL Novolin R 100 unit/mL injection solution 03-07 00:00: 00 No unit/mL Novolin R 100 unit/mL injection solution 03-07 00:00: 00 No unit/mL Novolin R 100 unit/mL injection solution 03-07 00:00: 00 Yes unit/mL Óscar Zavala Levemir U-100 Insulin 100 unit/mL subcutaneou s solution 01-07 00:00: 00 No 10unit/ mL Levemir U-100 Insulin 100 unit/mL subcutaneou s solution 01-07 00:00: 00 No 10unit/ mL Levemir U-100 Insulin 100 unit/mL subcutaneou s solution 01-07 00:00: 00 No 10unit/ mL Levemir U-100 Insulin 100 unit/mL subcutaneou s solution 01-07 00:00: 00 Yes 10unit/ mL Óscar Zavala Levemir 100 unit/mL subcutaneou s solution 12-19 00:00: 00 No 10unit/ mL Levemir 100 unit/mL subcutaneou s solution 12-19 00:00: 00 No 10unit/ mL Levemir 100 unit/mL subcutaneou s solution 12-19 00:00: 00 No 10unit/ mL Levemir 100 unit/mL subcutaneou s solution 12-19 00:00: 00 Yes 10unit/ mL Óscar Zavala metformin 500 mg tablet 12-13 00:00: 00 [...] metformin 500 mg tablet 12-13 00:00: 00 Yes 1mg Óscar Zavala amitriptyli ne 50 mg tablet 12-13 00:00: 00 Yes 1mg Óscar Zavala metronidazo le 500 mg tablet 12-10 00:00: 00 No 1mg metronidazo le 500 mg tablet 12-10 00:00: 00 No 1mg metronidazo le 500 mg tablet 12-10 00:00: 00 No 1mg metronidazo le 500 mg tablet 12-10 00:00: 00 Yes 1mg Óscar Zavala Novolin R 100 unit/mL injection solution 12-06 00:00: 00 No unit/mL Novolin R 100 unit/mL injection solution 12-06 00:00: 00 No unit/mL Novolin R 100 unit/mL injection solution 12-06 00:00: 00 No unit/mL Novolin R 100 unit/mL injection solution 12-06 00:00: 00 Yes unit/mL Óscar Zavala Bactrim DS 800 mg-160 mg tablet 2015-10 [...] 800 mg-160 mg tablet 2015-10 00:00: 00 Yes 1mg Óscar Zavala amitriptyli ne 50 mg tablet 2015-10 00:00: 00 Yes 1mg Óscar Zavala Novolin R 100 unit/mL injection solution 2015-10 00:00: 00 No unit/mL Novolin R 100 unit/mL injection solution 2015-10 00:00: 00 No unit/mL Novolin R 100 unit/mL injection solution 2015-10 00:00: 00 No unit/mL Novolin R 100 unit/mL injection solution 2015-10 00:00: 00 Yes unit/mL Óscar Zavala Novolin R 100 unit/mL injection solution 2015-10 00:00: 00 No unit/mL Novolin R 100 unit/mL injection solution 2015-10 00:00: 00 No unit/mL Novolin R 100 unit/mL injection solution 2015-10 00:00: 00 No unit/mL Novolin R 100 unit/mL injection solution 2015-10 00:00: 00 Yes unit/mL Óscar Zavala Novolin R 100 unit/mL injection solution 2015-10 00:00: 00 No unit/mL Novolin R 100 unit/mL injection solution 2015-10 00:00: 00 No unit/mL Novolin R 100 unit/mL injection solution 2015-10 00:00: 00 No unit/mL Novolin R 100 unit/mL injection solution 2015-10 00:00: 00 Yes unit/mL Óscar Zavala amitriptyli ne 50 mg tablet 06-01 00:00: 00 No 1mg amitriptyli ne 50 mg tablet 06-01 00:00: 00 No 1mg amitriptyli ne 50 mg tablet 06-01 00:00: 00 No 1mg amitriptyli ne 50 mg tablet 06-01 00:00: 00 Yes 1mg Óscar Zavala metoclopram zeb 5 mg tablet 05-24 00:00: 00 No 1mg metoclopram zeb 5 mg tablet 05-24 00:00: 00 No 1mg metoclopram zeb 5 mg tablet 05-24 00:00: 00 No 1mg metoclopram zeb 5 mg tablet 05-24 00:00: 00 Yes 1mg Óscar Zavala proMETHazin e (PHENERGAN) 25 mg tablet 05-20 00:00: 00 09-26 00:00 :00 No 25mg Take 1 tablet by mouth every 6 (six) hours as needed for Nausea and Vomiting (N/V). [facility] ranitidine (ZANTAC) 150 mg tablet 05-20 00:00: 00 09-26 00:00 :00 No 150mg Take 1 tablet by mouth 2 (two) times daily. [facility] cyclobenzap rine 5 mg tablet 04-12 00:00: 00 No 1mg cyclobenzap rine 5 mg tablet 04-12 00:00: 00 No 1mg cyclobenzap rine 5 mg tablet 04-12 00:00: 00 No 1mg cyclobenzap rine 5 mg tablet 04-12 00:00: 00 Yes 1mg Óscar Zavala Novolin R 100 unit/mL injection solution 04-06 00:00: 00 No unit/mL Novolin R 100 unit/mL injection solution 04-06 00:00: 00 No unit/mL Novolin R 100 unit/mL injection solution 04-06 00:00: 00 No unit/mL Novolin R 100 unit/mL injection solution 04-06 00:00: 00 Yes unit/mL Óscar Zavala METFORMIN HCL (METFORMIN ORAL) 12-25 23:42: 52 Yes Take by mouth. [facility] INSULIN REGULAR HUMAN SC 12-25 23:42: 52 Yes inject under the skin. [facility] gabapentin (NEURONTIN) 300 mg capsule 12-25 23:42: 52 Yes 300mg Take 300 mg by mouth 3 (three) times daily. [facility] METFORMIN HCL (METFORMIN ORAL) 12-25 18:42: 52 Yes Take by mouth. [facility] INSULIN REGULAR HUMAN SC 12-25 18:42: 52 Yes inject under the skin. [facility] gabapentin (NEURONTIN) 300 mg capsule 12-25 18:42: 52 Yes 300mg Take 300 mg by mouth 3 (three) times daily. [facility] cyclobenzap rine 5 mg tablet 11-23 [...] mg tablet 11-23 00:00: 00 No 1mg metformin 500 mg tablet 11-23 00:00: 00 Yes 1mg Óscar Zavala cyclobenzap rine 5 mg tablet 11-23 00:00: 00 Yes 1mg Óscar Zavala gabapentin 100 mg capsule 11-23 00:00: 00 Yes 1mg Óscar Zavala azithromyci n 250 mg tablet 2014-10 00:00: 00 No 1mg azithromyci n 250 mg tablet 2014-10 00:00: 00 No 1mg azithromyci n 250 mg tablet 2014-10 00:00: 00 No 1mg azithromyci n 250 mg tablet 2014-10 00:00: 00 Yes 1mg Óscar Zavala cyclobenzap rine 5 mg tablet 11-16 00:00: 00 No 1mg cyclobenzap rine 5 mg tablet 11-16 00:00: 00 No 1mg cyclobenzap rine 5 mg tablet 11-16 00:00: 00 No 1mg cyclobenzap rine 5 mg tablet 11-16 00:00: 00 Yes 1mg Óscar Rose Lucas gabapentin 100 mg capsule 11-10 00:00: 00 No 1mg gabapentin 100 mg capsule 11-10 00:00: 00 No 1mg gabapentin 100 mg capsule 11-10 00:00: 00 No 1mg gabapentin 100 mg capsule 11-10 00:00: 00 Yes 1mg Óscar Rose Lucas Naproxen 500 MG oral Tablet 12-12 00:00: 00 10-14 00:00 :00 No 500mg Take 1 tablet (500 mg total) by mouth in the morning and 1 tablet (500 mg total) in the evening. Take with meals. Shelby Olvera - Externjett l Cyclobenzap rine HCl Cyclobenzap rine HCl Yes Stuart Morgan 1 tablet as needed [facility] Gabapentin Gabapentin Yes Stuart Morgan 1 tablet [facility] Childrens Gummies Childrens Gummies Yes Stuart Salgadoa 2 gummies [facility] Lantus Lantus Yes Stuart Morgan 10 units [facility] Amitriptyli ne HCl Amitriptyli ne HCl Yes Stuart Morgan not defined [facility] B-12 B-12 Yes Stuart Salgadoa not defined [facility] Immunizations Ordered Immunization Name Filled Immunization Name Date Status Comments Source Tdap Tdap 2023-10-14 00:00:00 Completed Óscar Zavala Hep B, adult Hep B, adult 2013-10-29 00:00:00 Completed Óscar Zavala Tdap Tdap 2013-08-12 00:00:00 Completed Óscar Zavala Hep B, adult Hep B, adult 2013-08-12 00:00:00 Completed Óscar Zavala Hep B, adult Hep B, adult 2013-04-22 00:00:00 Completed Óscar Zavala Hepatitis B, Adult (3 dose) Unknown Completed Shelby Seybold - External Tdap- (Boostrix, Adacel) Unknown Completed Shelby Seybold - External Vital Signs Vital Name Observation Time Observation Value Comments S ource Systolic blood pressure 2023-10-14 15:33:00 124 mm[Hg] Shelby Seybo ld - External Diastolic blood pressure 2023-10-14 15:33:00 70 mm[Hg] Shelby Ferrariybo ld - External Heart rate 2023-10-14 14:52:00 88 /min Charliese celeste Seybold - External Body temperature 2023-10-14 14:52:00 36.39 Juana Shelby Seybold - External Respiratory rate 2023-10-14 14:52:00 20 /min Shelby Ferrariybold - External Body height 2023-10-14 14:52:00 157.5 cm Fauzia barkley Seybold - External Body weight 2023-10-14 14:52:00 77.565 kg Fauzia barkley Seybold - External BMI 2023-10-14 14:52:00 31.28 kg/m2 Fauzia barkley Seybold - External Oxygen saturation in Arterial blood by Pulse oximetry 2023-10-14 14:52:00 99 /min Shelby Ferrariybo ld - External Systolic blood pressure 2023-02-08 13:34:00 163 mm[Hg] [facility] Diastolic blood pressure 2023-02-08 13:34:00 85 mm[Hg] [facility] Heart rate 2023-02-08 13:34:00 88 /min Jayleen [facility] Body temperature 2023-02-08 13:34:00 37.39 Juana [facility] Respiratory rate 2023-02-08 13:34:00 16 /min [facility] Body height 2023-02-08 13:34:00 157.5 cm [facility] Body weight 2023-02-08 13:34:00 73.936 kg [facility] BMI 2023-02-08 13:34:00 29.81 kg/m2 [facility] Oxygen saturation in Arterial blood by Pulse oximetry 2023-02-08 13:34:00 99 /min [facility] Systolic blood pressure 2022-11-28 22:30:00 107 mm[Hg] [facility] Diastolic blood pressure 2022-11-28 22:30:00 74 mm[Hg] [facility] Heart rate 2022-11-28 22:30:00 99 /min Unive [facility] Body temperature 2022-11-28 22:30:00 37.11 [place] [facility] Respiratory rate 2022-11-28 22:30:00 18 /min [facility] Body height 2022-11-28 22:30:00 157.5 cm [facility] Body weight 2022-11-28 22:30:00 73.483 kg [facility] BMI 2022-11-28 22:30:00 29.63 kg/m2 [facility] Oxygen saturation in Arterial blood by Pulse oximetry 2022-11-28 22:30:00 98 /min [facility] Systolic blood pressure 2022-09-16 20:56:00 144 mm[Hg] [facility] Diastolic blood pressure 2022-09-16 20:56:00 80 mm[Hg] [facility] Heart rate 2022-09-16 20:56:00 83 /min [facility] Body temperature 2022-09-16 20:56:00 37.11 [place] [facility] Respiratory rate 2022-09-16 20:56:00 20 /min [facility] Oxygen saturation in Arterial blood by Pulse oximetry 2022-09-16 20:56:00 97 /min [facility] Systolic blood pressure 2022-06-26 02:00:00 129 mm[Hg] [facility] Diastolic blood pressure 2022-06-26 02:00:00 71 mm[Hg] [facility] Heart rate 2022-06-26 02:00:00 60 /min [facility] Respiratory rate 2022-06-26 02:00:00 18 /min [facility] Oxygen saturation in Arterial blood by Pulse oximetry 2022-06-26 02:00:00 98 /min [facility] Body temperature 2022-06-26 01:13:00 36.78 [place] [facility] Body height 2022-06-26 01:13:00 157.5 cm [facility] Body weight 2022-06-26 01:13:00 71.668 kg [facility] BMI 2022-06-26 01:13:00 28.90 kg/m2 [facility] Systolic blood pressure 2021-12-07 06:15:00 134 mm[Hg] [facility] Diastolic blood pressure 2021-12-07 06:15:00 72 mm[Hg] [facility] Heart rate 2021-12-07 06:15:00 73 /min [facility] Respiratory rate 2021-12-07 06:15:00 16 /min [facility] Oxygen saturation in Arterial blood by Pulse oximetry 2021-12-07 06:15:00 100 /min [facility] Body temperature 2021-12-07 03:30:00 36.94 [place] [facility] Body height 2021-12-07 03:30:00 157.5 cm [facility] Body weight 2021-12-07 03:30:00 70.308 kg [facility] BMI 2021-12-07 03:30:00 28.35 kg/m2 [facility] Heart rate 2021-03-05 22:21:00 76 /min [facility] Body temperature 2021-03-05 22:21:00 37.17 [place] [facility] Respiratory rate 2021-03-05 22:21:00 16 /min [facility] Body height 2021-03-05 22:21:00 154.9 cm [facility] Body weight 2021-03-05 22:21:00 76.204 kg [facility] BMI 2021-03-05 22:21:00 31.74 kg/m2 [facility] Oxygen saturation in Arterial blood by Pulse oximetry 2021-03-05 22:21:00 97 /min [facility] Systolic blood pressure 2020-12-17 17:14:00 136 mm[Hg] [facility] Diastolic blood pressure 2020-12-17 17:14:00 75 mm[Hg] [facility] Heart rate 2020-12-17 17:14:00 92 /min [facility] Body temperature 2020-12-17 17:14:00 36.61 [place] [facility] Respiratory rate 2020-12-17 17:14:00 20 /min [facility] Body weight 2020-12-17 17:14:00 77.111 kg [facility] BMI 2020-12-17 17:14:00 31.09 kg/m2 [facility] Oxygen saturation in Arterial blood by Pulse oximetry 2020-12-17 17:14:00 95 /min [facility] Systolic blood pressure 2020-10-30 14:30:00 156 mm[Hg] [facility] Diastolic blood pressure 2020-10-30 14:30:00 80 mm[Hg] [facility] Heart rate 2020-10-30 14:30:00 99 /min [facility] Respiratory rate 2020-10-30 14:30:00 20 /min [facility] Oxygen saturation in Arterial blood by Pulse oximetry 2020-10-30 14:30:00 100 /min [facility] Body temperature 2020-10-30 12:32:00 37.56 [place] [facility] Body height 2020-10-30 12:32:00 157.5 cm [facility] Body weight 2020-10-30 12:32:00 77.111 kg [facility] BMI 2020-10-30 12:32:00 31.09 kg/m2 [facility] Systolic blood pressure 2020-09-27 01:05:00 152 mm[Hg] [facility] Diastolic blood pressure 2020-09-27 01:05:00 89 mm[Hg] [facility] Heart rate 2020-09-27 01:05:00 90 /min [facility] Respiratory rate 2020-09-27 01:05:00 16 /min [facility] Oxygen saturation in Arterial blood by Pulse oximetry 2020-09-27 01:05:00 99 /min [facility] Body temperature 2020-09-26 21:20:00 37.28 [place] [facility] Body height 2020-09-26 21:20:00 157.5 cm [facility] Body weight 2020-09-26 21:20:00 74.844 kg [facility] BMI 2020-09-26 21:20:00 30.18 kg/m2 [facility] Systolic blood pressure 2020-09-02 02:30:00 125 mm[Hg] [facility] Diastolic blood pressure 2020-09-02 02:30:00 66 mm[Hg] [facility] Heart rate 2020-09-02 02:30:00 106 /min [facility] Respiratory rate 2020-09-02 02:30:00 18 /min [facility] Oxygen saturation in Arterial blood by Pulse oximetry 2020-09-02 02:30:00 97 /min [facility] Body temperature 2020-09-02 00:02:31 38.5 [place] [facility] Body height 2020-09-01 22:28:00 154.9 cm [facility] Body weight 2020-09-01 22:28:00 74.39 kg [facility] BMI 2020-09-01 22:28:00 30.99 kg/m2 [facility] Oxygen saturation in Arterial blood by Pulse oximetry 2020-07-26 04:45:00 95 /min [facility] Systolic blood pressure 2020-07-26 04:45:00 132 mm[Hg] [facility] Diastolic blood pressure 2020-07-26 04:45:00 77 mm[Hg] [facility] Heart rate 2020-07-26 04:45:00 92 /min [facility] Respiratory rate 2020-07-26 03:00:00 20 /min [facility] Body temperature 2020-07-26 01:24:00 37.72 [place] [facility] Body height 2020-07-26 01:24:00 154.9 cm [facility] Body weight 2020-07-26 01:24:00 77.111 kg [facility] BMI 2020-07-26 01:24:00 32.12 kg/m2 [facility] BP Systolic 2024-02-13 16:33:00 135 mm[Hg] Step hen F Lucas BP Diastolic 2024-02-13 16:33:00 88 mm[Hg] Joseph phen F Lucas Weight Measured 2024-02-13 16:33:00 170.60 pounds Óscar F Lucas Height Measured 2024-02-13 16:33:00 62.50 inches Óscar F [facility] Body Temperature 2024-02-13 16:33:00 98.20 degrees Óscar F Lucas Heart Rate 2024-02-13 16:33:00 83.00 /min Anna en F Lucas Respiratory Rate 2024-02-13 16:33:00 Óscar F Lucas BP Systolic 2023-12-11 14:34:00 154 mm[Hg] Step hen F Lucas BP Diastolic 2023-12-11 14:34:00 82 mm[Hg] Joseph phen F Lucas Weight Measured 2023-12-11 14:34:00 174.20 pounds Óscar F Lucas Height Measured 2023-12-11 14:34:00 62.50 inches Óscar F Lucas Body Temperature 2023-12-11 14:34:00 97.60 degrees Óscar F Lucas Heart Rate 2023-12-11 14:34:00 79.00 /min Anna en F Ulcas Respiratory Rate 2023-12-11 14:34:00 18.00 /min Óscar F Lucas BP Systolic 2023-08-14 11:42:00 157 mm[Hg] Step hen F Lucas BP Diastolic 2023-08-14 11:42:00 81 mm[Hg] Joseph phen F Lucas Weight Measured 2023-08-14 11:42:00 170.80 pounds Óscar F Lucas Height Measured 2023-08-14 11:42:00 62.50 inches Óscar F Lucas Body Temperature 2023-08-14 11:42:00 98.10 degrees Óscar F Lucas Heart Rate 2023-08-14 11:42:00 89.00 /min Anna en F Lucas Respiratory Rate 2023-08-14 11:42:00 17.00 /min Óscar F Lucas BP Systolic 2023-07-09 15:53:00 133 mm[Hg] Step hen F Lucas BP Diastolic 2023-07-09 15:53:00 86 mm[Hg] Joseph phen F Lucas Weight Measured 2023-07-09 15:53:00 165.00 pounds Óscar F Lucas Height Measured 2023-07-09 15:53:00 62.50 inches Óscar F Lucas Body Temperature 2023-07-09 15:53:00 98.20 degrees Óscar F Lucas Heart Rate 2023-07-09 15:53:00 82.00 /min Anna en F Lucas Respiratory Rate 2023-07-09 15:53:00 18.00 /min Óscar F Lucas BP Systolic 2023-04-23 10:20:00 137 mm[Hg] Step hen F Lucas BP Diastolic 2023-04-23 10:20:00 83 mm[Hg] Joseph phen F Lucas Weight Measured 2023-04-23 10:20:00 164.20 pounds Óscar F Lucas Height Measured 2023-04-23 10:20:00 62.50 inches Óscar F Lucas Body Temperature 2023-04-23 10:20:00 98.20 degrees Óscar F Lucas Heart Rate 2023-04-23 10:20:00 80.00 /min Anna en F Lucas Respiratory Rate 2023-04-23 10:20:00 19.00 /min Óscar F Lucas BP Systolic 2022-12-17 14:14:00 146 mm[Hg] Step hen F Lucas BP Diastolic 2022-12-17 14:14:00 81 mm[Hg] Joseph phen F Lucas Weight Measured 2022-12-17 14:14:00 172.40 pounds Óscar F Lucas Height Measured 2022-12-17 14:14:00 62.50 inches Óscar F Lucas Body Temperature 2022-12-17 14:14:00 98.40 degrees Óscar F Lucas Heart Rate 2022-12-17 14:14:00 77.00 /min Anna en F Lucas Respiratory Rate 2022-12-17 14:14:00 17.00 /min Óscar F Lucas BP Systolic 2022-11-08 10:31:00 151 mm[Hg] Step hen F Lucas BP Diastolic 2022-11-08 10:31:00 82 mm[Hg] Joseph phen F Lucas Weight Measured 2022-11-08 10:31:00 167.40 pounds Óscar F Lucas Height Measured 2022-11-08 10:31:00 62.50 inches Óscar F Lucas Body Temperature 2022-11-08 10:31:00 98.20 degrees Óscar F Lucas Heart Rate 2022-11-08 10:31:00 78.00 /min Anna en F Lucas Respiratory Rate 2022-11-08 10:31:00 18.00 /min Óscar F Lucas BP Systolic 2022-10-30 08:51:00 159 mm[Hg] Step hen F Lucas BP Diastolic 2022-10-30 08:51:00 91 mm[Hg] Joseph phen F Lucas Weight Measured 2022-10-30 08:51:00 162.00 pounds Óscar F Lucas Height Measured 2022-10-30 08:51:00 62.50 inches Óscar F Lucas Body Temperature 2022-10-30 08:51:00 98.40 degrees Óscar F Lucas Heart Rate 2022-10-30 08:51:00 95.00 /min Anna en F Lucas Respiratory Rate 2022-10-30 08:51:00 17.00 /min Óscar F Lucas BP Systolic 2022-10-23 17:07:00 164 mm[Hg] Step hen F Lucas BP Diastolic 2022-10-23 17:07:00 89 mm[Hg] Joseph phen F Lucas Weight Measured 2022-10-23 17:07:00 163.00 pounds Óscar F Lucas Height Measured 2022-10-23 17:07:00 62.50 inches Óscar F Lucas Body Temperature 2022-10-23 17:07:00 98.30 degrees Óscar F Lucas Heart Rate 2022-10-23 17:07:00 90.00 /min Anna en F Lucas Respiratory Rate 2022-10-23 17:07:00 18.00 /min Óscar F Lucas BP Systolic 2022-07-02 16:38:00 159 mm[Hg] Step hen F Lucas BP Diastolic 2022-07-02 16:38:00 83 mm[Hg] Joseph phen F Lucas Weight Measured 2022-07-02 16:38:00 165.80 pounds Óscar F Lucas Height Measured 2022-07-02 16:38:00 62.50 inches Óscar F Lucas Body Temperature 2022-07-02 16:38:00 98.10 degrees Óscar F Lucas Heart Rate 2022-07-02 16:38:00 74.00 /min Anna en F Lucas Respiratory Rate 2022-07-02 16:38:00 17.00 /min Óscar F Lucas BP Systolic 2022-06-05 08:31:00 124 mm[Hg] BP [...] RELEASE OF PHI 2023-04-26 05:01:00 Doctor Unassigned, [place] [facility] AUTHORIZATION FOR RELEASE OF PHI 2023-04-17 05:01:00 Doctor Unassigned, [place] [facility] XR KNEE 3 VW LEFT 2023-02-08 15:25:16 Maricarmen Sanchez [facility] CONSENT/REFUSAL FOR DIAGNOSIS AND TREATMENT 2023-02-08 13:25:51 Doctor Unassigned, [place] [facility] XR HIPS 3 VW LEFT 2022-11-28 23:35:00 John Kamara [facility] CONSENT/REFUSAL FOR DIAGNOSIS AND TREATMENT 2022-11-28 22:22:03 Doctor Unassigned, [place] [facility] LIPASE 2022-09-16 23:46:00 Dannielle Arechiga [facility] TEST, SERUM 2022-09-16 23:46:00 Johnathon Arechiga [facility] COMP. METABOLIC PANEL ([id number]) 2022-09-16 23:46:00 Dannielle Arechiga [facility] CBC WITH DIFF 2022-09-16 23:46:00 Dannielle Arechiga [facility] URINALYSIS 2022-09-16 22:26:00 Dannielle Arechiga [facility] CONSENT/REFUSAL FOR DIAGNOSIS AND TREATMENT 2022-09-16 20:45:39 Doctor Unassigned, [place] [facility] XR CHEST 2 VW 2022-06-26 02:03:35 [facility] BILATERAL 2022-06-26 02:03:35 Tyshawn Helm [facility] COMP. METABOLIC PANEL ([id number]) 2022-06-26 01:33:00 Ebenezer Helm [facility] CBC WITH DIFF 2022-06-26 01:33:00 [facility]22-[facility]-26 01:33:00 Ebenezer Helm [facility] N-TERMINAL PRO-BNP 2022-06-26 01:33:00 Ebenezer Helm [facility] CONSENT/REFUSAL FOR DIAGNOSIS AND TREATMENT 2022-06-26 01:04:33 Doctor Unassigned, [place] [facility] CONSENT/REFUSAL FOR DIAGNOSIS AND TREATMENT 2022-04-10 03:01:56 Doctor Unassigned, [place] [facility] POCT GLUCOSE (AUTOMATED) 2021-12-07 06:58:00 Eladio Monsivais [facility] CT MAXILLOFACIAL/MANDIBLE WO CONTRAST 2021-12-07 05:31:00 Eladio Monsivais [facility] CT HEAD WO CONTRAST 2021-12-07 05:31:00 Eladio Monsivais [facility] XR CHEST 1 VW 2021-12-07 05:28:00 Eladio Monsivais [facility] XR HAND 3+ VW LEFT 2021-12-07 05:28:00 Eladio Monsivais [facility] POCT GLUCOSE (AUTOMATED) 2021-12-07 04:51:00 Eladio Monsivais [facility] URINALYSIS 2021-12-07 04:06:00 Eladio Monsivais [facility] TROPONIN I 2021-12-07 03:58:00 Eladio Monsivais [facility] COMP. METABOLIC PANEL ([id number]) 2021-12-07 03:58:00 Eladio Monsivais [facility] CBC WITH DIFF 2021-12-07 03:58:00 Eladio Monsivais [facility] PROTHROMBIN TIME / INR 2021-12-07 03:58:00 Júnior Monsivais [facility] NOTICE OF PRIVACY PRACTICES 2021-12-07 03:20:07 Doctor Unassigned, [place] [facility] CONSENT/REFUSAL FOR DIAGNOSIS AND TREATMENT 2021-12-07 03:18:34 Doctor Unassigned, [place] [facility] XR ANKLE 3+ VW LEFT 2021-03-05 22:58:39 Ebrahim, Rania [facility] CONSENT/REFUSAL FOR DIAGNOSIS AND TREATMENT 2021-03-05 22:02:12 Doctor Unassigned, [place] [facility] XR ABDOMEN ACUTE SERIES 2020-12-17 18:13:15 Do deanne Jeffery [facility] LIPASE 2020-12-17 17:46:00 Hermilo Jeffery [facility] HEPATIC FUNCTION PANEL ([id number]) (ALB,T.PRO,BILI T,BU/BC,ALT,AST,ALK PHOS) 2020-12-17 17:46:00 Hermilo Jeffery [facility] BASIC METABOLIC PANEL (NA, K, CL, CO2, GLUCOSE, BUN, CREATININE, CA) 2020-12-17 17:46:00 Hermilo Jeffery [facility] CBC WITH DIFF 2020-12-17 17:46:00 Hermilo Jeffery [facility] PROTHROMBIN TIME / INR 2020-12-17 17:46:00 Galindo Jeffery [facility] ACTIVATED PARTIAL THRMPLAS RUBIO 2020-12-17 17:46:00 Hermilo Jeffery [facility] URINALYSIS 2020-12-17 17:46:00 Hermilo Jeffery [facility] COVID-19 (ID NOW RAPID TESTING) 2020-12-17 17:46:00 Hermilo Jeffery [facility] NOTICE OF PRIVACY PRACTICES 2020-12-17 17:07:59 Doctor Unassigned, [place] [facility] CONSENT/REFUSAL FOR DIAGNOSIS AND TREATMENT 2020-12-17 17:07:25 Doctor Unassigned, [place] [facility] CT CHEST PULMONARY ANGIOGRAM 2020-10-30 14:24:45 John Kamara [facility] POCT TEST 2020-10-30 14:14:00 Truong Kamara [facility] XR CHEST 1 VW 2020-10-30 13:04:14 Kt Ratliff [facility] TEST, SERUM 2020-10-30 12:49:00 Faisal Ratliff [facility] TROPONIN I 2020-10-30 12:49:00 Kt Ratliff [facility] HEPATIC FUNCTION PANEL ([id number]) (ALB,T.PRO,BILI T,BU/BC,ALT,AST,ALK PHOS) 2020-10-30 12:49:00 Kt Ratliff [facility] BASIC METABOLIC PANEL (NA, K, CL, CO2, GLUCOSE, BUN, CREATININE, CA) 2020-10-30 12:49:00 Kt Ratliff [facility] CBC WITH DIFF 2020-10-30 12:49:00 [facility] / [facility] 2020-10-30 12:49:00 Sukumar Ratliff [facility] D-DIMER 2020-10-30 12:49:00 Kt Ratliff [facility] ACTIVATED PARTIAL THRMPLAS RUBIO 2020-10-30 12:49:00 Kt Ratliff [facility] RAPID STREP SCREEN FOR GROUP A 2020-10-30 12:49:00 Kt Ratliff [facility] ADC,CLC OR L[facility] ONLY - INFLUENZA A & B DIRECT ANTIGEN 2020-10-30 12:49:00 Kt Ratliff [facility] COVID-19 (ID NOW RAPID TESTING) 2020-10-30 12:49:00 Kt Ratliff [facility] NOTICE OF PRIVACY PRACTICES 2020-10-30 12:21:16 Doctor Unassigned, [place] [facility] CONSENT/REFUSAL FOR DIAGNOSIS AND TREATMENT 2020-10-30 12:21:04 Doctor Unassigned, [place] [facility] URINALYSIS 2020-09-26 22:51:00 Carie Chanel [facility] XR CHEST 1 VW 2020-09-26 22:03:02 Carie Chanel [facility] LIPASE 2020-09-26 21:51:00 Carie Chanel [facility] TROPONIN I 2020-09-26 21:51:00 Carie Chanel [facility] COMP. METABOLIC PANEL ([id number]) 2020-09-26 21:51:00 Carie Chanel [facility] CBC WITH DIFF 2020-09-26 21:51:00 Carie Chanel [facility] N-TERMINAL PRO-BNP 2020-09-26 21:51:00 Carie Chanel [facility] CONSENT/REFUSAL FOR DIAGNOSIS AND TREATMENT 2020-09-26 21:08:31 Doctor Unassigned, [place] [facility] CT CHEST PULMONARY ANGIOGRAM 2020-09-02 02:01:09 Luisito Chavis [facility] D-DIMER 2020-09-02 00:29:00 Luisito Chavis [facility] XR CHEST 1 VW 2020-09-01 23:08:31 Luisito Chavis [facility] POCT TEST 2020-09-01 22:52:00 Luisito Chavis [facility] BLOOD CULTURE SCREEN 2020-09-01 22:47:00 Luisito Chavis [facility] COMP. METABOLIC PANEL ([id number]) 2020-09-01 22:47:00 uLisito Chavis [facility] CBC WITH DIFF 2020-09-01 22:47:00 Luisito Chavis [facility] URINALYSIS 2020-09-01 22:47:00 [facility] ADC,CLC OR [facility] ONLY - INFLUENZA A & B DIRECT ANTIGEN 2020-09-01 22:47:00 Luisito Chavis [facility] N-TERMINAL PRO-BNP 2020-09-01 22:47:00 Luisito Chavis [facility] LACTIC ACID WHOLE BLOOD 2020-09-01 22:47:00 Me hussein Chavis [facility] COVID-19 (ID NOW RAPID TESTING) 2020-09-01 22:47:00 Luisito Chavis [facility] NOTICE OF PRIVACY PRACTICES 2020-09-01 22:31:34 Doctor Unassigned, [place] [facility] CONSENT/REFUSAL FOR DIAGNOSIS AND TREATMENT 2020-09-01 22:18:34 Doctor Unassigned, [place] [facility] CT ABDOMEN PELVIS W CONTRAST 2020-07-26 04:10:32 Yolanda Bass [facility] LIPASE 2020-07-26 02:16:00 Yolanda Bass [facility] COMP. METABOLIC PANEL ([id number]) 2020-07-26 02:16:00 Yolanda Bass [facility] CBC WITH DIFF 2020-07-26 02:16:00 Yolanda Bass [facility] URINALYSIS 2020-07-26 02:16:00 Yolanda Bass [facility] EKG-12 LEAD 2020-07-26 02:00:35 Yolanda Bass [facility] NOTICE OF PRIVACY PRACTICES 2020-07-26 00:35:41 Doctor Unassigned, [place] [facility] CONSENT/REFUSAL FOR DIAGNOSIS AND TREATMENT 2020-07-26 00:35:21 Doctor Unassigned, [place] [facility] REFERRAL- REQUEST/RESPONSE 2020-07-05 05:01:00 Doctor Unassigned, [place] [facility] Plan of Care Planned Activity Planned Date Details Comments Source Goal Plan of Care Note [code = 36080-1] Goal Plan of Care Note [code = 86080-6] Goal Plan of Care Note [code = 59805-7] Goal Plan of Care Note [code = 72561-7] Goal Plan of Care Note [code = 75011-8] Goal Plan of Care Note [code = 05352-2] Goal Plan of Care Note [code = 38393-4] Goal Plan of Care Note [code = 23588-4] Goal Plan of Care Note [code = 41677-6] Goal Plan of Care Note [code = 68806-3] Goal Plan of Care Note [code = 00694-2] Goal Plan of Care Note [code = 19477-0] Goal Plan of Care Note [code = 28798-0] Goal Plan of Care Note [code = 89742-4] Goal Plan of Care Note [code = 49304-4] Goal Plan of Care Note [code = 44157-4] Goal Plan of Care Note [code = 10727-2] Goal Plan of Care Note [code = 52371-9] Goal Plan of Care Note [code = 37155-5] Goal Plan of Care Note [code = 85351-5] Goal Plan of Care Note [code = 22984-6] Goal Plan of Care Note [code = 64422-1] Goal Plan of Care Note [code = 54953-8] Goal Plan of Care Note [code = 02850-0] Goal Plan of Care Note [code = 79598-4] Goal Plan of Care Note [code = 50796-8] Goal Plan of Care Note [code = 36945-6] Goal Plan of Care Note [code = 42761-3] Goal Plan of Care Note [code = 84170-4] Goal Plan of Care Note [code = 98767-6] Goal Plan of Care Note [code = 43050-5] Goal Plan of Care Note [code = 34920-7] Goal Plan of Care Note [code = 20789-1] Goal Plan of Care Note [code = 33124-0] Goal Plan of Care Note [code = 58587-1] Goal Plan of Care Note [code = 66489-2] Goal Plan of Care Note [code = 45890-1] Goal Plan of Care Note [code = 84149-3] Goal Plan of Care Note [code = 71813-6] Goal Plan of Care Note [code = 09710-6] Goal Plan of Care Note [code = 97592-7] Goal Plan of Care Note [code = 16457-6] Goal Plan of Care Note [code = 53955-5] Goal Plan of Care Note [code = 64729-5] Goal Plan of Care Note [code = 44126-9] Goal Plan of Care Note [code = 85151-5] Goal Plan of Care Note [code = 75535-9] Goal Plan of Care Note [code = 64084-8] Goal Plan of Care Note [code = 04341-9] Goal Plan of Care Note [code = 44901-5] Goal Plan of Care Note [code = 76180-0] Goal Plan of Care Note [code = 37366-2] Goal Plan of Care Note [code = 82682-0] Goal Plan of Care Note [code = 40004-7] Goal Plan of Care Note [code = 92699-2] Goal Plan of Care Note [code = 43430-0] Goal Plan of Care Note [code = 82892-9] Goal Plan of Care Note [code = 30812-3] Goal Plan of Care Note [code = 46318-2] Goal Plan of Care Note [code = 14294-4] Goal Plan of Care Note [code = 59381-1] Goal Plan of Care Note [code = 20472-5] Goal Plan of Care Note [code = 58836-9] Goal Plan of Care Note [code = 06145-6] Goal Plan of Care Note [code = 84714-8] Goal Plan of Care Note [code = 73824-1] Goal Plan of Care Note [code = 79958-1] Goal Plan of Care Note [code = 01145-6] Goal Plan of Care Note [code = 70771-4] Goal Plan of Care Note [code = 06440-8] Goal Plan of Care Note [code = 07763-5] Goal Plan of Care Note [code = 69596-0] Goal Plan of Care Note [code = 79000-2] Goal Plan of Care Note [code = 47460-6] Goal Plan of Care Note [code = 51082-1] Goal Plan of Care Note [code = 55848-6] Goal Plan of Care Note [code = 62698-7] Goal Plan of Care Note [code = 46424-0] Goal Plan of Care Note [code = 84378-1] Goal Plan of Care Note [code = 38520-1] Goal Plan of Care Note [code = 36243-2] Goal Plan of Care Note [code = 89174-4] Goal Plan of Care Note [code = 78427-8] Goal Plan of Care Note [code = 17349-1] Goal Plan of Care Note [code = 14049-5] Goal Plan of Care Note [code = 36536-3] Goal Plan of Care Note [code = 12522-5] Goal Plan of Care Note [code = 00075-7] Goal Plan of Care Note [code = 30040-5] Goal Plan of Care Note [code = 96766-1] Goal Plan of Care Note [code = 68600-0] Goal Plan of Care Note [code = 59512-3] Goal Plan of Care Note [code = 34364-6] Goal Plan of Care Note [code = 53943-9] Goal Plan of Care Note [code = 37336-9] Goal Plan of Care Note [code = 57393-8] Goal Plan of Care Note [code = 33880-1] Goal Plan of Care Note [code = 76881-7] Goal Plan of Care Note [code = 92115-8] Goal Plan of Care Note [code = 86702-6] Goal Plan of Care Note [code = 62190-7] Goal Plan of Care Note [code = 76988-2] Goal Plan of Care Note [code = 75205-4] Goal Plan of Care Note [code = 89842-9] Goal Plan of Care Note [code = 40219-6] Goal Plan of Care Note [code = 86343-7] Goal Plan of Care Note [code = 64660-8] Goal Plan of Care Note [code = 85303-7] Goal Plan of Care Note [code = 20842-8] Goal Plan of Care Note [code = 61131-7] Goal Plan of Care Note [code = 83300-8] Goal Plan of Care Note [code = 82086-9] Goal Plan of Care Note [code = 77023-2] Goal Plan of Care Note [code = 50744-3] Goal Plan of Care Note [code = 75497-4] Goal Plan of Care Note [code = 48996-2] Goal Plan of Care Note [code = 84412-3] Goal Plan of Care Note [code = 09500-8] Goal Plan of Care Note [code = 71941-6] Goal Plan of Care Note [code = 53854-3] Goal Plan of Care Note [code = 70057-2] Goal Plan of Care Note [code = 47607-7] Goal Plan of Care Note [code = 34868-4] Goal Plan of Care Note [code = 43970-7] Goal Plan of Care Note [code = 98262-3] Goal Plan of Care Note [code = 00391-5] Goal Plan of Care Note [code = 28486-7] Goal Plan of Care Note [code = 25755-0] Goal Plan of Care Note [code = 79461-9] Goal Plan of Care Note [code = 32301-1] Goal Plan of Care Note [code = 72577-4] Goal Plan of Care Note [code = 24073-7] Goal Plan of Care Note [code = 08594-8] Goal Plan of Care Note [code = 99279-3] Goal Plan of Care Note [code = 91826-9] Goal Plan of Care Note [code = 35615-0] Goal Plan of Care Note [code = 47188-0] Goal Plan of Care Note [code = 62917-3] Goal Plan of Care Note [code = 07683-9] Goal Plan of Care Note [code = 09540-3] Goal Plan of Care Note [code = 82013-6] Goal Plan of Care Note [code = 50306-7] Goal Plan of Care Note [code = 71520-5] Goal Plan of Care Note [code = 56474-9] Goal Plan of Care Note [code = 56347-5] Goal Plan of Care Note [code = 76431-0] Goal Plan of Care Note [code = 22053-0] Goal Plan of Care Note [code = 62464-3] Goal Plan of Care Note [code = 80287-8] Goal Plan of Care Note [code = 66243-6] Goal Plan of Care Note [code = 99592-3] Goal Plan of Care Note [code = 53489-9] Goal Plan of Care Note [code = 33970-3] Goal Plan of Care Note [code = 72408-2] Goal Plan of Care Note [code = 12904-2] Goal Plan of Care Note [code = 69428-1] Goal Plan of Care Note [code = 49645-6] Goal Plan of Care Note [code = 64064-0] Goal Plan of Care Note [code = 97327-2] Goal Plan of Care Note [code = 66732-2] Goal Plan of Care Note [code = 84957-4] Goal Plan of Care Note [code = 10626-2] Goal Plan of Care Note [code = 53672-2] Goal Plan of Care Note [code = 10846-4] Goal Plan of Care Note [code = 44259-9] Goal Plan of Care Note [code = 00377-4] Goal Plan of Care Note [code = 02003-4] Goal Plan of Care Note [code = 66111-2] Goal Plan of Care Note [code = 02591-9] Goal Plan of Care Note [code = 49825-4] Goal Plan of Care Note [code = 21372-1] Goal Plan of Care Note [code = 43055-4] Goal Plan of Care Note [code = 28371-4] Goal Plan of Care Note [code = 87081-2] Goal Plan of Care Note [code = 23969-1] Goal Plan of Care Note [code = 32863-3] Goal Plan of Care Note [code = 97151-0] Goal Plan of Care Note [code = 37928-3] Goal Plan of Care Note [code = 75327-5] Goal Plan of Care Note [code = 71124-2] Goal Plan of Care Note [code = 73147-0] Goal Plan of Care Note [code = 57081-0] Goal Plan of Care Note [code = 33546-5] Goal Plan of Care Note [code = 12488-9] Goal Plan of Care Note [code = 93852-2] Goal Plan of Care Note [code = 81580-6] Goal Plan of Care Note [code = 84591-6] Goal Plan of Care Note [code = 92375-4] Goal Plan of Care Note [code = 88846-7] Goal Plan of Care Note [code = 01036-8] Goal Plan of Care Note [code = 65476-3] Goal Plan of Care Note [code = 61463-7] Goal Plan of Care Note [code = 30750-2] Goal Plan of Care Note [code = 94215-5] Goal Plan of Care Note [code = 88271-2] Goal Plan of Care Note [code = 31802-6] Goal Plan of Care Note [code = 87009-6] Goal Plan of Care Note [code = 30427-4] Goal Plan of Care Note [code = 52497-4] Goal Plan of Care Note [code = 15927-0] Goal Plan of Care Note [code = 72343-5] Goal Plan of Care Note [code = 32751-6] Goal Plan of Care Note [code = 53450-1] Goal Plan of Care Note [code = 36096-0] Goal Plan of Care Note [code = 37391-5] Goal Plan of Care Note [code = 43165-9] Goal Plan of Care Note [code = 82220-3] Goal Plan of Care Note [code = 55234-8] Goal Plan of Care Note [code = 12983-1] Goal Plan of Care Note [code = 29758-5] Goal Plan of Care Note [code = 71763-0] Goal Plan of Care Note [code = 78553-2] Goal Plan of Care Note [code = 63871-4] Goal Plan of Care Note [code = 20755-8] Goal Plan of Care Note [code = 93665-4] Goal Plan of Care Note [code = 25795-7] Goal Plan of Care Note [code = 74290-5] Goal Plan of Care Note [code = 70002-8] Goal Plan of Care Note [code = 51921-7] Goal Plan of Care Note [code = 95426-4] Goal Plan of Care Note [code = 85917-8] Goal Plan of Care Note [code = 45189-8] Goal Plan of Care Note [code = 70261-2] Goal Plan of Care Note [code = 67828-6] Encounters Start Date/Time End Date/Time Encounter Type Admission Type Attending [facility] Care Department Encounter ID Source 2024-02-17 11:24:53 2024-02-17 11:24:53 Outpatient [facility] [id number] Óscar Zavala 2024-02-13 16:21:03 2024-02-13 16:21:03 Outpatient [facility] [id number] Óscar Zavala 2024-02-13 00:00:00 2024-02-13 00:00:00 Outpatient Visit [facility] [id number]-[id number] Óscar Zavala 2023-12-24 10:45:00 2023-12-24 10:45:00 Outpatient DALY MEJIAS [id number] Shelby Olvera 2023-12-17 16:47:51 2023-12-17 16:47:51 Outpatient [facility] [id number] Óscar Zavala 2023-12-11 14:22:41 2023-12-11 14:22:41 Outpatient [facility] [id number] Óscar Zavala 2023-11-18 11:00:00 2023-11-18 11:00:00 Outpatient DALY MEJIAS [id number] Shelby Olvera 2023-10-17 00:00:00 2023-10-17 00:00:00 Outpatient DALY MEJIAS [id number] Shelby isra 2023-10-16 00:00:00 2023-10-16 00:00:00 Outpatient DALY MEJIAS [id number] Shelby Ferrariyoli 2023-10-15 00:00:00 2023-10-15 00:00:00 [facility] [id number] [facility]23-10-14 09:45:00 2023-10-14 09:45:00 Outpatient LAB90 SHELBY PATTERSON [id number] [facility] 2023-10-14 08:45:00 2023-10-14 08:45:00 Outpatient [facility] [id number] [facility] 2023-08-14 11:42:13 2023-08-14 11:42:13 Outpatient [facility] [id number] Óscar Rose Lucas 2023-07-09 15:49:57 2023-07-09 15:49:57 Outpatient [facility] 1003 Óscar [place] 2023-04-26 00:00:00 2023-04-26 00:00:00 Orders Only Doctor Unassigned, [place] [facility] 1.840.114 350.1.13.10 4.2.7.2.686 [id number] [facility] 2023-04-23 10:17:21 2023-04-23 10:17:21 Outpatient [facility] [id number] Óscar Rose [place] 2023-04-17 00:00:00 2023-04-17 00:00:00 Orders Only Doctor Unassigned, [place] [facility] 1.840.114 350.1.13.10 4.2.7.2.686 [id number] [facility] 2023-02-08 08:35:00 2023-02-08 12:02:00 Emergency X Maricarmen SANCHEZ [facility] ERT [id number] [facility] 2023-02-08 08:35:00 2023-02-08 12:02:00 Emergency Maricarmen Sanchez [facility] 1.840.114 350.1.13.10 4.2.7.2.686 [id number] [id number] [facility] 2023-02-08 00:00:00 2023-02-08 00:00:00 Patient Secure Msg Doctor Unassigned, [place] [facility] 1.2.840.114 350.1.13.10 4.2.7.2.686 [id number] [facility] 2022-12-17 14:21:59 2022-12-17 14:21:59 Outpatient [facility] [id number] Óscar Zavala 2022-11-28 16:34:00 2022-11-28 18:21:00 Emergency X JOHN KAMARA [facility] ERT [id number] [facility] 2022-11-28 16:34:00 2022-11-28 18:21:00 Emergency John Kamara [facility] 1.2.840.114 350.1.13.10 4.2.7.2.686 [id number] [facility] 2022-11-28 13:54:29 2022-11-28 13:54:29 Outpatient [facility] [id number] Óscar Zavala 2022-11-08 10:17:59 2022-11-08 10:17:59 Outpatient [facility] [id number] Óscar Rose Lucas 2022-10-30 08:40:52 2022-10-30 08:40:52 Outpatient [facility] [id number] Óscar Rose Lucas 2022-10-23 17:01:52 2022-10-23 17:01:52 Outpatient [facility] [id number] Óscar Rose Lucas 2022-10-23 00:00:00 2022-10-23 00:00:00 Outpatient Visit [id number]-[id number] [id number] 2022-09-16 14:58:00 2022-09-16 19:08:00 Emergency X DANNIELLE ARECHIGA [facility] ERT [id number] [facility] 2022-09-16 14:58:00 2022-09-16 19:08:00 Emergency Dannielle Arechiga [facility] 1.2.840.114 350.1.13.10 4.2.7.2.686 [id number] [facility] 2022-08-15 10:49:03 2022-08-15 10:49:03 Outpatient [facility] [id number] Óscar Zavala 2022-07-02 00:00:00 2022-07-02 00:00:00 Outpatient Visit [id number] g6y-1v17-5 fa8-5933fc 91e4b7 2022-06-25 20:19:00 2022-06-25 21:54:00 Emergency X EBENEZER HELM [facility] ERT [id number] [facility] 2022-06-25 20:19:00 2022-06-25 21:54:00 Emergency Ebenezer Helm [facility] 1.2.840.114 350.1.13.10 4.2.7.2.686 [id number] [facility] 2022-06-05 00:00:00 2022-06-05 00:00:00 Outpatient Visit [id number]-[id number] [id number] eaf-d0acf8 31c2b3 2022-05-07 00:00:00 2022-05-07 00:00:00 Outpatient Visit [id number]-dac [id number] 740-4024-9 565-dac46b 95debf 2022-04-09 22:07:00 2022-04-09 22:08:00 Emergency RENETTA HANSEN [facility] ERT [id number] [facility] 2022-04-09 22:07:00 2022-04-09 22:08:00 Emergency Renetta Coe [facility] 1.2.840.114 350.1.13.10 4.2.7.2.686 [id number] [facility] 2021-12-06 21:21:00 2021-12-07 01:08:00 Emergency X ELADIO MONSIVAIS [facility] ERT [id number] [facility] 2021-12-06 21:21:00 2021-12-07 01:08:00 Emergency Eladio Monsivais [facility] 1.2.840.114 350.1.13.10 4.2.7.2.686 [id number] [facility] 2021-06-23 22:09:00 2021-06-23 22:10:00 Emergency Yolanda Bass [facility] 1.2.840.114 350.1.13.10 4.2.7.2.686 [id number] [id number] [facility] 2021-06-23 21:42:00 2021-06-23 21:42:00 Emergency X YOLANDA BASS [facility] ERT [id number] [facility] 2021-03-05 17:25:00 2021-03-05 18:39:00 Emergency Vonnie Nathan [facility] 1.2.840.114 350.1.13.10 4.2.7.2.686 [id number] [facility] 2021-03-05 17:25:00 2021-03-05 18:39:00 Emergency X VONNIE NATHAN [facility] ERT [id number] [facility] 2020-12-17 11:09:00 2020-12-17 12:55:00 Emergency Hermilo Jeffery [facility] 1.2840.114 350.1.13.10 4.2.7.2.686 [id number] [facility] 2020-12-17 11:09:00 2020-12-17 12:55:00 Emergency X HERMILO JEFFERY [facility] ERT [id number] [facility] 2020-10-30 06:26:00 2020-10-30 09:25:00 Emergency Kt Ratliff [facility] 1.2840.114 350.1.13.10 4.2.7.2.686 [id number] [facility] 2020-10-30 06:22:00 2020-10-30 06:22:00 Emergency X [facility] ERT [id number] [facility] 2020-09-26 15:22:00 2020-09-26 19:20:00 Emergency Carie Chanel [facility] 1.2840.114 350.1.13.10 4.2.7.2.686 [id number] [facility] 2020-09-26 15:22:00 2020-09-26 19:20:00 Emergency X CARIE CHANEL [facility] ERT [id number] [facility] 2020-09-01 16:25:00 2020-09-01 20:55:00 Emergency Luisito Chavis [facility] 1.2840.114 350.1.13.10 4.2.7.2.686 [id number] [facility] 2020-09-01 16:25:00 2020-09-01 16:25:00 Emergency X LUISITO CHAVIS [facility] ERT [id number] [facility] 2020-09-01 00:00:00 2020-09-01 00:00:00 Nurse Triage Ly Yepez [facility] 1.2840.114 350.1.13.10 4.2.7.2.686 [id number] [facility] 2020-08-08 00:00:00 2020-08-08 00:00:00 Letter (Out) MastersonMckayla [facility] 1.2.840.114 350.1.13.10 4.2.7.2.686 [id number] [facility] 2020-07-25 20:28:00 2020-07-25 23:58:00 Emergency PitademondBrandi valentinodarnell S [facility] 1.2.840.114 350.1.13.10 4.2.7.2.686 [id number] [facility] 2020-07-25 19:37:00 2020-07-25 19:37:00 Emergency X [facility] ERT [id number] [facility] 2020-07-05 00:00:00 2020-07-05 00:00:00 Orders Only Doctor Unassigned, [place] [facility] 1.2.840.114 350.1.13.10 4.2.7.2.686 [id number] [facility] 2018-07-15 08:45:00 2018-07-15 08:45:00 Outpatient [facility] [id number] [facility] 2018-01-07 14:30:00 2018-01-07 14:30:00 Outpatient [facility] [id number] [facility] Results Test Description Test Time Test Comments Results Result Co mments Source LIPID [id number] 03:31:26* Test Item Value Reference Range Interpretation [...] SPECIMENS. FOR MOREINFORMATION, SEE CLIENT ANNOUNCEMENT AT [email or web address] RISK RATIO LDL/HDL (test code = 2238) 2.18 RATIO <3.22 UNLESS OTHERW ISE INDICATED, ALL TESTING PERFORMED AT [facility] [address] [place] [address] HEAD OF ICT: JOSE MORALES M.D. [place] NUMBER [id number] [facility] [place]. [id number] HEMOGLOBIN [id number] 02:53:39* Test Item Value Reference Range Interpretation Comme [facility] HEMOGLOBIN A1c (test code = 80900) 11.7 % 4.2-5.6 H [employer] GUIDELINES FOR HGB A1C: [...] ETC.). CONSIDER ALTERNATE TESTING OR LABORATORY CONSULTATION. COMPREHENSIVE METABOLIC PANEL [ADDED]2024-02-18 00:00:00* Test Item Value Reference Range Interpretation Comme nts GLUCOSE (test code = 2217) 381 MG/DL BUN (test code = 2208) 13 MG/DL CREATININE (test code = 2214) 0.58 MG/DL eGFR (2020 CKD-EPI) (test code = 70477) 109 ML/MIN/1.73 CALC BUN/CREAT (test code = 2235) 22 RATIO SODIUM (test code = 2231) 135 MEQ/L POTASSIUM (test code = 2228) 4.3 MEQ/L CHLORIDE (test code = 2215) 98 MEQ/L CARBON DIOXIDE (test code = 2206) 27 MEQ/L CALCIUM (test code = 2209) 9.4 MG/DL PROTEIN, TOTAL (test code = 2229) 7.0 G/DL ALBUMIN (test code = 2201) 3.9 G/DL CALC GLOBULIN (test code = 2240) 3.1 G/DL CALC A/G RATIO (test code = 2234) 1.3 RATIO BILIRUBIN, TOTAL (test code = 2207) 0.5 MG/DL ALKALINE PHOSPHATASE (test code = 2204) 118 U/L AST (test code = 2218) 14 U/L ALT (test code = 2219) 19 U/L Óscar Rose AustinLIPID PANEL [ADDED]2024-02-18 00:00:00* Test Item Value Reference Range Interpretation Comme nts CHOLESTEROL (test code = 2210) 207 MG/DL TRIGLYCERIDES (test code = 2232) 145 MG/DL HDL CHOLESTEROL (test code = 2220) 57 MG/DL CALC LDL CHOL (test code = 2237) 124 MG/DL RISK RATIO LDL/HDL (test cod e = 2238) 2.18 RATIO Óscar ZavalaHEMOGLOBIN [id number] 00:00:00* Test Item Value Reference Range Interpretation Comme nts HEMOGLOBIN A1c (test code = 95471) 11.7 % Óscar Rose AustinLIPID [id number] 10:46:21* Test Item Value Reference Range Interpretation [...] SPECIMENS. FOR MOREINFORMATION, SEE CLIENT ANNOUNCEMENT AT [email or web address] RISK RATIO LDL/HDL (test code = 2238) 1.98 RATIO <3.22 COMPREHENSIVE METABOLIC [id number] 10:46:21* Test Item Value Reference Range Interpretation Comme nts GLUCOSE (test code = 2217) 173 MG/DL 70-99 H BUN (test code = 2208) 7 MG/DL 6-20 CREATININE (test code = 2214) 0.56 MG/DL 0.60-1.30 L eGFR (2020 CKD-EPI) (test code = 03825) 110 ML/MIN/1.73 >60 CALC BUN/CREAT (test code = 2235) 13 RATIO 6-28 SODIUM (test code = 223) 142 MEQ/L 133-146 POTASSIUM (test code = 8) 4.6 MEQ/L 3.5-5.4 CHLORIDE (test code = 2215) 102 MEQ/L 95-107 CARBON DIOXIDE (test code = 6) 27 MEQ/L 19-31 CALCIUM (test code = 2208) 9.7 MG/DL 8.5-10.5 PROTEIN, TOTAL (test code = 2228) 7.1 G/DL 6.1-8.3 ALBUMIN (test code = 2200) 4.2 G/DL 3.5-5.2 CALC GLOBULIN (test code = 0) 2.9 G/DL 1.9-3.7 CALC A/G RATIO (test code = 2233) 1.4 RATIO 1.0-2.6 BILIRUBIN, TOTAL (test code = 2206) 0.3 MG/DL See_Comment [Automated me ssage] The system which generated this result transmitted reference range: <=1.2. The reference range was not used to interpret this result as normal/abnormal. ALKALINE PHOSPHATASE (test code = 2203) 101 U/L 40-130 AST (test code = 8) 14 U/L 9-40 ALT (test code = 2219) 15 U/L 5-40 UNLESS OTHERWISE INDICATED, ALL [facility] [address] [place] [address] HEAD OF ICT: KEVIN FRANCO M.D. CLIA NUMBER [id number] [facility] [place]. [id number] HEMOGLOBIN [id number] 07:47:20* Test Item Value Reference Range Interpretation Comme nts HEMOGLOBIN A1c (test code = 68293) 12.0 % 4.2-5.6 H [employer] GUIDELINES FOR HGB A1C: [...] CONSIDER ALTERNATE TESTING OR LABORATORY CONSULTATION. LIPID [id number] 00:00:00* Test Item Value Reference Range Interpretation Comme nts CHOLESTEROL (test code = 2210) 199 MG/DL TRIGLYCERIDES (test code = 2232) 149 MG/DL HDL CHOLESTEROL (test code = 2220) 58 MG/DL CALC LDL CHOL (test code = 2237) 115 MG/DL RISK RATIO LDL/HDL (test cod e = 2238) 1.98 RATIO Óscar ZavalaCOMPREHENSIVE METABOLIC [id number] 00:00:00* Test Item Value Reference Range Interpretation Comme nts GLUCOSE (test code = 2217) 173 MG/DL BUN (test code = 2208) 7 MG/DL CREATININE (test code = 2214) 0.56 MG/DL eGFR (2020 CKD-EPI) (test code = 09422) 110 ML/MIN/1.73 CALC BUN/CREAT (test code = 2235) 13 RATIO SODIUM (test code = 2231) 142 MEQ/L POTASSIUM (test code = 2228) 4.6 MEQ/L CHLORIDE (test code = 2215) 102 MEQ/L CARBON DIOXIDE (test code = 2206) 27 MEQ/L CALCIUM (test code = 2209) 9.7 MG/DL PROTEIN, TOTAL (test code = 2229) 7.1 G/DL ALBUMIN (test code = 2201) 4.2 G/DL CALC GLOBULIN (test code = 2240) 2.9 G/DL CALC A/G RATIO (test code = 2234) 1.4 RATIO BILIRUBIN, TOTAL (test code = 2207) 0.3 MG/DL ALKALINE PHOSPHATASE (test code = 2204) 101 U/L AST (test code = 2218) 14 U/L ALT (test code = 2219) 15 U/L Óscar ZavalaHEMOGLOBIN [id number] 00:00:00* Test Item Value Reference Range Interpretation Comme nts HEMOGLOBIN A1c (test code = 29783) 12.0 % Óscar ZavalaPOCT GLUCOSE (AUTOMATED)2021-12-07 07:06:55* Test Item Value Reference Range Interpretation Comme [facility] POCT GLU (test code = 0504038761) 292 mg/dL 70-110 H Lab Interpretation (test cod e = 06103-4) [facility]07 04:55:44* Test Item Value Reference Range Interpretation Comme [facility] POCT GLU (test code = 0966382816) 440 mg/dL 70-110 H Lab Interpretation (test cod e = 95804-0) [facility] (69131)2021-12-07 04:40:58* Test Item Value Reference Range Interpretation Comme nts NA (test code = 9367074200) 133 mmol/L 135-145 L K (test code = 0268638505) 4.2 mmol/L 3.5-5.0 CL (test code = 6727260026) 97 mmol/L 98-108 L CO2 TOTAL (test code = 6138210828) 25 mmol/L 23-31 AGAP (test code = 1505122434) 2-16 BUN (test code = 8498667059) 11 mg/dL 7-23 GLUCOSE (test code = 5702579531) 519 mg/dL 70-110 HH CREATININE (test code = 7400024142) 0.65 mg/dL 0.50-1.04 TOTAL BILI (test code = 8791652408) 0.4 mg/dL 0.1-1.1 CALCIUM (test code = 2874825752) 8.8 mg/dL 8.6-10.6 T PROTEIN (test code = 2844427369) 6.9 g/dL 6.3-8.2 ALBUMIN (test code = 0472634327) 3.9 g/dL 3.5-5.0 ALK PHOS (test code = 1028484293) 113 U/L 34-122 ALTv (test code = 1742-6) 25 U/L 5-35 AST(SGOT) (test code = 6356021129) 32 U/L 13-40 eGFR (test code = 0946483253) mL/min/1.73m2 MATTHEW (test code = MATTHEW) Association [...] imaging tests). Lab Interpretation (test code = 90724-7) [facility] [id number] 04:33:26* Test Item Value Reference Range Interpretation Comments TROPONIN I (test code = 0754961205) <0.012 See_Comment [Automated message] The system which [...] of biotin. Lab Interpretation (test code = 27361-7) Normal [facility] / [id number] 04:13:03* Test Item Value Reference Range Interpretation Comme nts PROTIME PATIENT (test code = 5964-2) See_Comment [Automated [employer]] The system which generated this result transmitted reference range: 12.0 - 14.7 Seconds. The reference range was not used to interpret this result as normal/abnormal. INR (test code = 6301-6) Normal INR <1.1; Warfarin Therapeutic range 2.0 to 3.0 or 2.5 to 3.5, depending upon the indications. Lab Interpretation (test code = 18743-1) Normal [facility] WITH [id number] 04:06:26* Test Item Value Reference Range Interpretation Comme nts WBC (test code = 6690-2) See_Comment [Automated [employer]ND[employer] ge] The system which generated this result transmitted reference range: 4.30 - 11.10 10*3/?L. The reference range was not used to interpret this result as normal/abnormal. RBC (test code = 789-8) See_Comment [Automated RNDOMNa ge] The system which generated this result [...] 33.3 g/dL 31.6-35.1 RDW-SD (test code = 24346-3) 39.2 fL 39.0-49.9 RDW-CV (test code = 788-0) 12.2 % 12.0-15.5 PLT (test code = 777-3) See_Comment [Automated messa ge] The system which generated this result transmitted reference range: 166 - 358 10*3/?L. The reference range was not used to interpret this result as normal/abnormal. MPV (test code = 75148-9) 10.4 fL 9.5-12.9 NRBC/100 WBC (test code = 8929903876) See_Comment [Automated [employer]] The system which generated this result transmitted reference range: 0.0 - 10.0 /100 WBCs. The reference range was not used to interpret this result as normal/abnormal. NRBC x10^3 (test code = 4604246688) <0.01 See_Comment [Automated me ssage] The system which generated this result transmitted reference range: 10*3/?L. The reference range was not used to interpret this result as normal/abnormal. GRAN MAT (NEUT) % (test code = 770-8) 45.7 % IMM GRAN % (test code = 2261669343) 0.50 % LYMPH % (test code = 736-9) 38.7 % MONO % (test code = 5905-5) 10.4 % EOS % (test code = 713-8) 4.1 % BASO % (test code = 706-2) 0.6 % GRAN MAT x10^3(ANC) (test code = 1016922909) 3.00 10*3/uL 1.88-7.09 IMM GRAN x10^3 (test code = 2789448533) 0.03 10*3/uL 0.00-0.06 LYMPH x10^3 (test code = 731-0) 2.54 10*3/uL 1.32-3.29 MONO x10^3 (test code = 742-7) 0.68 10*3/uL 0.33-0.92 EOS x10^3 (test code = 711-2) 0.27 10*3/uL 0.03-0.39 BASO x10^3 (test code = 704-7) 0.04 10*3/uL 0.01-0.07 [facility], [id number] 00:00:00* Test Item Value Reference Range Interpretation Comme nts CULTURE, URINE (test code = 05500) SPECIMEN NUMBER: [id number] CULTURE, [id number] 00:00:00* Test Item Value Reference Range Interpretation Comme nts CULTURE, URINE (test code = 50317) SPECIMEN NUMBER: [id number] CULTURE, [id number] 00:00:00* Test Item Value Reference Range Interpretation Comme nts CULTURE, URINE (test code = 52811) SPECIMEN NUMBER: [id number] CULTURE, [id number] 00:00:00* Test Item Value Reference Range Interpretation Comme nts CULTURE, URINE (test code = 00953) SPECIMEN NUMBER: [id number] CULTURE, [id number] 00:00:00* Test Item Value Reference Range Interpretation Comme nts CULTURE, URINE (test code = 01464) SPECIMEN NUMBER: [id number] Óscar Rose AustinVAGINAL PATHOGENS DNA [id number] 00:00:00* Test Item Value Reference Range Interpretation Comme nts KASSI SPECIES (test code = 12858) NEGATIVE G. VAGINALIS (test code = 20319) POSITIVE T. VAGINALIS (test code = 62263) NEGATIVE VAGINAL PATHOGENS DNA [id number] 00:00:00* Test Item Value Reference Range Interpretation Comme nts KASSI SPECIES (test code = 83086) NEGATIVE G. VAGINALIS (test code = 72017) POSITIVE T. VAGINALIS (test code = 19214) NEGATIVE VAGINAL PATHOGENS DNA [id number] 00:00:00* Test Item Value Reference Range Interpretation Comme nts KASSI SPECIES (test code = 99417) NEGATIVE G. VAGINALIS (test code = 78762) POSITIVE T. VAGINALIS (test code = 67027) NEGATIVE VAGINAL PATHOGENS DNA [id number] 00:00:00* Test Item Value Reference Range Interpretation Comme nts KASSI SPECIES (test code = 99887) NEGATIVE G. VAGINALIS (test code = 27963) POSITIVE T. VAGINALIS (test code = 74200) NEGATIVE VAGINAL PATHOGENS DNA [id number] 00:00:00* Test Item Value Reference Range Interpretation Comme nts KASSI SPECIES (test code = 24702) NEGATIVE G. VAGINALIS (test code = 81562) POSITIVE T. VAGINALIS (test code = 54974) NEGATIVE Óscar Rose AustinDIAG MAMM BILATERAL HERNANDEZ CAD [id number] 08:00:36 Name: Stew : 1970 Sex: F - DIAG MAMM BILATERAL HERNANDEZ CAD DIGITALBILATERAL DIGITAL DIAGNOSTIC MAMMOGRAM 3D/2D WITH CAD: 04/06/2021LINICAL: Abnormal Report from CT scan. Digital breast tomosynthesis was performed in addition to routine CC and MLO views. Current mammographic images were evaluated by Palm CAD (computer-aided detection) software. Comparison is made to exam dated 04/25/2015 mammogram - [facility]. The tissue of both breasts [...] to exam dated 04/25/2015 mammogram - [facility]. Real-time ultrasound of both breasts and both axilla and clinical breast exam were performed. No abnormalities were seen sonographically in either breast or either axilla. Clinical breast exam was unremarkable.IMPRESSION: NEGATIVE There is no sonographic evidence of malignancy. Resume annual screening mammography in one year. Carmel Hensley M.D. dm/:04/07/2021 08:00:36 Entry: lc - 108:18:04Imaging Technologist: Bonnie Esteban , [facility]- FWletter sent: BIRADS 1-2 Combo FU Letter Mammogram BI-RADS: 0 Incomplete: Additional Imaging Evaluation Needed Ultrasound BI-RADS: 1 NegativeBREAST ULTRASOUND [id number] 08:00:36 Name: Stew : 1970 Sex: F - DIAG MAMM BILATERAL HERNANDEZ CAD DIGITALBILATERAL DIGITAL DIAGNOSTIC MAMMOGRAM 3D/2D WITH CAD: 04/06/2021LINICAL: Abnormal Report from CT scan. Digital breast tomosynthesis was performed in addition to routine CC and MLO views. Current mammographic images were evaluated by Palm CAD (computer-aided detection) software. Comparison is made to exam dated 04/25/2015 mammogram - [facility]. The tissue of both breasts [...] to exam dated 04/25/2015 mammogram - [facility]. Real-time ultrasound of both breasts and both axilla and clinical breast exam were performed. No abnormalities were seen sonographically in either breast or either axilla. Clinical breast exam was unremarkable.IMPRESSION: NEGATIVE There is no sonographic evidence of malignancy. Resume annual screening mammography in one year. Carmel Hensley M.D. dm/:04/07/2021 08:00:36 Entry: - 108:18:04Imaging Technologist: Bonnie CALABRESE, [facility]- FWletter sent: BIRADS 1-2 Combo FU Letter Mammogram BI-RADS: 0 Incomplete: Additional Imaging Evaluation Needed Ultrasound BI-RADS: 1 NegativeH. PYLORI (BREATH)2021-03-04 00:00:00* Test Item Value Reference Range Interpretation Comme nts H. PYLORI (BREATH) (test cod e = 29386) POSITIVE H. PYLORI (BREATH)2021-03-04 00:00:00* Test Item Value Reference Range Interpretation Comme nts H. PYLORI (BREATH) (test cod e = 04133) POSITIVE H. PYLORI (BREATH)2021-03-04 00:00:00* Test Item Value Reference Range Interpretation Comme nts H. PYLORI (BREATH) (test cod e = 77195) POSITIVE H. PYLORI (BREATH)2021-03-04 00:00:00* Test Item Value Reference Range Interpretation Comme nts H. PYLORI (BREATH) (test cod e = 65936) POSITIVE H. PYLORI (BREATH)2021-03-04 00:00:00* Test Item Value Reference Range Interpretation Comme nts H. PYLORI (BREATH) (test cod e = 26083) POSITIVE [facility] [id number] 00:00:00* Test Item Value Reference Range Interpretation [...] (test code = 1015) 387 K/UL HEMOGLOBIN [id number] 00:00:00* Test Item Value Reference Range Interpretation Comme nts HEMOGLOBIN A1c (test code = 87759) 11.1 % LIPID [id number] 00:00:00* Test Item Value Reference Range Interpretation Comme nts CHOLESTEROL (test code = 2210) 185 MG/DL TRIGLYCERIDES (test code = 2232) 190 MG/DL HDL CHOLESTEROL (test code = 2220) 49 MG/DL CALC LDL CHOL (test code = 2237) 105 MG/DL RISK RATIO LDL/HDL (test cod e = 2238) 2.14 RATIO COMPREHENSIVE METABOLIC [id number] 00:00:00* Test Item Value Reference Range Interpretation Comme nts GLUCOSE (test code = 2217) 371 MG/DL BUN (test code = 2208) 11 MG/DL CREATININE (test code = 2214) 0.61 MG/DL eGFR AMER. (test cod e = 77152) 123 ML/MIN/1.73 eGFR NON- AMER. (test code = 64208) 106 ML/MIN/1.73 CALC BUN/CREAT (test code = [...] ALT (test code = 2219) 20 U/L [id number] 00:00:00* Test Item Value Reference Range Interpretation Comme nts TSH, THIRD GENERATION (test code = 2821) 1.180 UIU/ML H. PYLORI (BREATH)2021-01-20 00:00:00* Test Item Value Reference Range Interpretation Comme nts H. PYLORI (BREATH) (test cod e = 33806) POSITIVE CBC W/AUTO [id number] 00:00:00* Test Item Value Reference Range Interpretation [...] (test code = 1015) 387 K/UL HEMOGLOBIN [id number] 00:00:00* Test Item Value Reference Range Interpretation Comme nts HEMOGLOBIN A1c (test code = 73272) 11.1 % LIPID [id number] 00:00:00* Test Item Value Reference Range Interpretation Comme nts CHOLESTEROL (test code = 2210) 185 MG/DL TRIGLYCERIDES (test code = 2232) 190 MG/DL HDL CHOLESTEROL (test code = 2220) 49 MG/DL CALC LDL CHOL (test code = 2237) 105 MG/DL RISK RATIO LDL/HDL (test cod e = 2238) 2.14 RATIO COMPREHENSIVE METABOLIC [id number] 00:00:00* Test Item Value Reference Range Interpretation Comme nts GLUCOSE (test code = 2217) 371 MG/DL BUN (test code = 2208) 11 MG/DL CREATININE (test code = 2214) 0.61 MG/DL eGFR AMER. (test cod e = 57234) 123 ML/MIN/1.73 eGFR NON- AMER. (test code = 98922) 106 ML/MIN/1.73 CALC BUN/CREAT (test code = [...] ALT (test code = 2219) 20 U/L [id number] 00:00:00* Test Item Value Reference Range Interpretation Comme nts TSH, THIRD GENERATION (test code = 2821) 1.180 UIU/ML H. PYLORI (BREATH)2021-01-20 00:00:00* Test Item Value Reference Range Interpretation Comme nts H. PYLORI (BREATH) (test cod e = 60921) POSITIVE CBC W/AUTO [id number] 00:00:00* Test Item Value Reference Range Interpretation [...] (test code = 1015) 387 K/UL HEMOGLOBIN [id number] 00:00:00* Test Item Value Reference Range Interpretation Comme nts HEMOGLOBIN A1c (test code = 09844) 11.1 % LIPID [id number] 00:00:00* Test Item Value Reference Range Interpretation Comme nts CHOLESTEROL (test code = 2210) 185 MG/DL TRIGLYCERIDES (test code = 2232) 190 MG/DL HDL CHOLESTEROL (test code = 2220) 49 MG/DL CALC LDL CHOL (test code = 2237) 105 MG/DL RISK RATIO LDL/HDL (test cod e = 2238) 2.14 RATIO COMPREHENSIVE METABOLIC [id number] 00:00:00* Test Item Value Reference Range Interpretation Comme nts GLUCOSE (test code = 2217) 371 MG/DL BUN (test code = 2208) 11 MG/DL CREATININE (test code = 2214) 0.61 MG/DL eGFR AMER. (test cod e = 54706) 123 ML/MIN/1.73 eGFR NON- AMER. (test code = 30885) 106 ML/MIN/1.73 CALC BUN/CREAT (test code = [...] ALT (test code = 2219) 20 U/L [id number] 00:00:00* Test Item Value Reference Range Interpretation Comme nts TSH, THIRD GENERATION (test code = 2821) 1.180 UIU/ML H. PYLORI (BREATH)2021-01-20 00:00:00* Test Item Value Reference Range Interpretation Comme nts H. PYLORI (BREATH) (test cod e = 90297) POSITIVE CBC W/AUTO [id number] 00:00:00* Test Item Value Reference Range Interpretation [...] (test code = 1015) 387 K/UL HEMOGLOBIN [id number] 00:00:00* Test Item Value Reference Range Interpretation Comme nts HEMOGLOBIN A1c (test code = 69993) 11.1 % LIPID [id number] 00:00:00* Test Item Value Reference Range Interpretation Comme nts CHOLESTEROL (test code = 2210) 185 MG/DL TRIGLYCERIDES (test code = 2232) 190 MG/DL HDL CHOLESTEROL (test code = 2220) 49 MG/DL CALC LDL CHOL (test code = 2237) 105 MG/DL RISK RATIO LDL/HDL (test cod e = 2238) 2.14 RATIO COMPREHENSIVE METABOLIC [id number] 00:00:00* Test Item Value Reference Range Interpretation Comme nts GLUCOSE (test code = 2217) 371 MG/DL BUN (test code = 2208) 11 MG/DL CREATININE (test code = 2214) 0.61 MG/DL eGFR AMER. (test cod e = 07015) 123 ML/MIN/1.73 eGFR NON- AMER. (test code = 77243) 106 ML/MIN/1.73 CALC BUN/CREAT (test code = [...] ALT (test code = 2219) 20 U/L [id number] 00:00:00* Test Item Value Reference Range Interpretation Comme nts TSH, THIRD GENERATION (test code = 2821) 1.180 UIU/ML H. PYLORI (BREATH)2021-01-20 00:00:00* Test Item Value Reference Range Interpretation Comme nts H. PYLORI (BREATH) (test cod e = 72733) POSITIVE H. PYLORI (BREATH)2021-01-20 00:00:00* Test Item Value Reference Range Interpretation Comme nts H. PYLORI (BREATH) (test cod e = 90631) POSITIVE Óscar Berrios W/AUTO [id number] 00:00:00* Test Item Value Reference Range Interpretation [...] COUNT (test code = 1015) 387 K/UL Óscar ZavalaHEMOGLOBIN [id number] 00:00:00* Test Item Value Reference Range Interpretation Comme nts HEMOGLOBIN A1c (test code = 24842) 11.1 % Óscar ZavalaLIPID [id number] 00:00:00* Test Item Value Reference Range Interpretation Comme nts CHOLESTEROL (test code = 2210) 185 MG/DL TRIGLYCERIDES (test code = 2232) 190 MG/DL HDL CHOLESTEROL (test code = 2220) 49 MG/DL CALC LDL CHOL (test code = 2237) 105 MG/DL RISK RATIO LDL/HDL (test cod e = 2238) 2.14 RATIO Óscar ZavalaCOMPREHENSIVE METABOLIC [id number] 00:00:00* Test Item Value Reference Range Interpretation Comme nts GLUCOSE (test code = 2217) 371 MG/DL BUN (test code = 2208) 11 MG/DL CREATININE (test code = 2214) 0.61 MG/DL eGFR AMER. (test cod e = 43516) 123 ML/MIN/1.73 eGFR NON- AMER. (test code = 26442) 106 ML/MIN/1.73 CALC BUN/CREAT (test code = [...] ALT (test code = 2219) 20 U/L Óscar [id number] 00:00:00* Test Item Value Reference Range Interpretation Comme nts TSH, THIRD GENERATION (test code = 2821) 1.180 UIU/ML Óscar ZavalaCOVID-19 (ID NOW RAPID TESTING)2020-12-17 18:20:32* Test Item Value Reference Range Interpretation Comme nts SARS-CoV-2 Rapid ID NOW (test code = 34693-5) Not Detected Not Detected MATTHEW (test code = MATTHEW) ID NOW COVID-19 As say is an isothermal nucleic acid amplification test intended for the qualitative detection of nucleic acid from SARS-CoV-2 viral RNA in nasopharyngeal (PAYROLL ADMINISTRATOR) specimens. It is used under Emergency Use [...] clinically indicated. Lab Interpretation (test code = 29320-6) [facility] Hospital[facility]inalysis2021-[facility] 18:20:17* Test Item Value Reference Range Interpretation Comme nts APPEARANCE (test code = 7703886226) Clear Clear COLOR (test code = 1976051774) Yellow Yellow PH (test code = 6022770668) 4.8-8.0 SP GRAVITY (test code = 7941534447) 1.003-1.030 H GLU U QUAL (test code = 1217702077) 500 mg/dL Normal A BLOOD (test code = 3925453471) Negative Negative KETONES (test code = 2900622990) 5 mg/dL Negative A PROTEIN (test code = 2887-8) 30 mg/dL Negative A UROBILIN (test code = 8701751988) Normal Normal BILIRUBIN (test code = 1496050770) Negative Negative NITRITE (test code = 3458039282) Negative Negative LEUK CHASITY (test code = 1759753875) 25/uL Negative A RBC/HPF (test code = 6921084927) See_Comment H [Automated RNDOMNa ge] The system which generated this result transmitted reference range: 0 - 3 HPF. The reference range was not used to interpret this result as normal/abnormal. WBC/HPF (test code = 6488838717) See_Comment [Automated RNDOMNa ge] The system which generated this result transmitted reference range: 0 - 5 HPF. The reference range was not used to interpret this result as normal/abnormal. BACTERIA (test code = 7813796055) Few Negative A SQ EPITH (test code = 8723172303) HPF Lab Interpretation (test code = 09995-6) Abnormal [facility] HospitalHepatic Function Panel (ALB, T.PRO, BILI T, BU/BC, ALT, AST, ALK PHOS)2020-12-17 18:07:11* Test Item Value Reference Range Interpretation Comme nts TOTAL BILI (test code = 0158411507) 0.6 mg/dL 0.1-1.1 BILI UNCON (test code = 9498067148) 0.5 mg/dL 0.1-1.1 BILI CONJ (test code = 6980706564) 0.0 mg/dL 0.0-0.3 T PROTEIN (test code = 2596526327) 8.2 g/dL 6.3-8.2 ALBUMIN (test code = 7219426171) 4.4 g/dL 3.5-5.0 ALK PHOS (test code = 0292503599) 134 U/L 34-122 H ALTv (test code = 1742-6) 29 U/L 5-35 AST(SGOT) (test code = 2478131090) 35 U/L 13-40 Lab Interpretation (test cod e = 42040-2) Abnormal [facility] Metabolic Panel (NA, K, CL, CO2, GLUCOSE, BUN, CREATININE, CA)2020-12-17 18:06:51* Test Item Value Reference Range Interpretation Comme nts NA (test code = 8280068561) 135 mmol/L 135-145 K (test code = 9408928068) 4.4 mmol/L 3.5-5.0 CL (test code = 0378628534) 96 mmol/L 98-108 L CO2 TOTAL (test code = 3950710823) 31 mmol/L 23-31 AGAP (test code = 6828629078) 2-16 BUN (test code = 7083339724) 13 mg/dL 7-23 GLUCOSE (test code = 0540413248) 370 mg/dL 70-110 H CREATININE (test code = 8409539038) 0.50 mg/dL 0.50-1.04 CALCIUM (test code = 6861646191) 9.2 mg/dL 8.6-10.6 eGFR Calculation (Non-) (test code = 1266887691) mL/min/1.73m2 eGFR Calculation () (test code = 7992588774) mL/min/1.73m2 MATTHEW (test code = MATTHEW) Association [...] imaging tests). Lab Interpretation (test code = 85484-2) Abnormal [facility] HospitalLipase [id number] 18:06:51* Test Item Value Reference Range Interpretation Comme nts LIPASE (test code = 4286488239) 169 U/L 0-220 Lab Interpretation (test cod e = 24935-2) Normal [facility] HospitalaPTT2021-03-13 18:05:30* Test Item Value Reference Range Interpretation Comme nts APTT Patient (test code = 3173-2) See_Comment [Automated message] The system which generated this result transmitted reference range: 23 - 38 Seconds. The reference range was not used to interpret this result as normal/abnormal. MATTHEW (test code = MATTHEW) The [facility] patient population mean normal value for aPTT is 30 seconds. Lab Interpretation (test code = 87235-7) Normal [facility] HospitalProthrombin Time (PT) / [id number] 18:03:29 * Test Item Value Reference Range Interpretation Comme nts PROTIME PATIENT (test code = 5964-2) See_Comment [Automated [employer]] The system which generated this result transmitted reference range: 12.0 - 14.7 Seconds. The reference range was not used to interpret this result as normal/abnormal. INR (test code = 6301-6) Normal INR <1.1; Warfarin Therapeutic range 2.0 to 3.0 or 2.5 to 3.5, depending upon the indications. Lab Interpretation (test code = 26918-0) Normal [facility] HospitalCBC with Yehmvmoaqlum8101-10-64 17:55:29* Test Item Value Reference Range Interpretation Comme nts WBC (test code = 6690-2) See_Comment [Automated [employer]] The system which generated this result [...] 32.8 g/dL 31.6-35.1 RDW-SD (test code = 10787-4) 39.1 fL 39.0-49.9 RDW-CV (test code = 788-0) 12.3 % 12.0-15.5 PLT (test code = 777-3) See_Comment H [Automated RNDOMNa ge] The system which generated this result transmitted reference range: 166 - 358 10*3/?L. The reference range was not used to interpret this result as normal/abnormal. MPV (test code = 89631-3) 10.3 fL 9.5-12.9 NRBC/100 WBC (test code = 7999382186) See_Comment [Automated [employer]] The system which generated this result transmitted reference range: 0.0 - 10.0 /100 WBCs. The reference range was not used to interpret this result as normal/abnormal. NRBC x10^3 (test code = 0346305479) <0.01 See_Comment [Automated messa ge] The system which generated this result transmitted reference range: 10*3/?L. The reference range was not used to interpret this result as normal/abnormal. GRAN MAT (NEUT) % (test code = 770-8) 72.0 % IMM GRAN % (test code = 1452871326) 0.40 % LYMPH % (test code = 736-9) 18.4 % MONO % (test code = 5905-5) 6.4 % EOS % (test code = 713-8) 2.2 % BASO % (test code = 706-2) 0.6 % GRAN MAT x10^3(ANC) (test code = 3476566971) 7.61 10*3/uL 1.88-7.09 H IMM GRAN x10^3 (test code = 0136310450) 0.04 10*3/uL 0.00-0.06 LYMPH x10^3 (test code = 731-0) 1.94 10*3/uL 1.32-3.29 MONO x10^3 (test code = 742-7) 0.68 10*3/uL 0.33-0.92 EOS x10^3 (test code = 711-2) 0.23 10*3/uL 0.03-0.39 BASO x10^3 (test code = 704-7) 0.06 10*3/uL 0.01-0.07 Lab Interpretation (test code = 73549-4) Abnormal [facility] HospitalXR CHEST 1 [id number] 14:56:41.No acute cardiopulmonary abnormality Preliminary Report Dictated [...] this study and agree with the abovereport. [facility] HospitalPOCT [id number] 14:14:00* Test Item Value Reference Range Interpretation Comme nts POCT PREG (test code = 1605) negative On board controls acceptable with C Line (test code = 3574) present Lab Interpretation (test cod e = 38084-1) Normal [facility] HospitalD-[id number] 13:53:00* Test Item Value Reference Range Interpretation Comments D-DIMER (test code = 6799336803) See_Comment H [Automated message] The system which [...] a diagnosis. Lab Interpretation (test code = 36200-3) Abnormal [facility] HospitalPregnancy Test, [id number] 13:40:00* Test Item Value Reference Range Interpretation Comme nts PREG SERUM (test code = 8999643216) Negative MATTHEW (test code = MATTHEW) Less than 10 IU/L. ?If low titer or ectopic is suspected, resubmit specimen in 48-72 hours. [facility] HospitalTroponin [id number] 13:36:00* Test Item Value Reference Range Interpretation Comme nts TROPONIN I (test code = 2009444537) <0.012 See_Comment [Automated message] The system which [...] biotin. ? Lab Interpretation (test code = 37547-9) Normal [facility] HospitalaPTT2021-01-24 13:35:00* Test Item Value Reference Range Interpretation Comme [facility] APTT Patient (test code = 3173-2) See_Comment [Automated message] The system which generated this result transmitted reference range: 23 - 38 Seconds. The reference range was not used to interpret this result as normal/abnormal. MATTHEW (test code = MATTHEW) The [facility] patient population mean normal value for aPTT is 30 seconds. Lab Interpretation (test code = 21449-7) Normal [facility] HospitalProthrombin Time (PT) / [id number] 13:33:00 * Test Item Value Reference Range Interpretation Comme [facility] PROTIME PATIENT (test code = 5964-2) See_Comment [Automated RNDOMNa ge] The system which generated this result transmitted reference range: 12.0 - 14.7 Seconds. The reference range was not used to interpret this result as normal/abnormal. INR (test code = 6301-6) Normal INR <1.1; Warfarin Therapeutic range 2.0 to 3.0 or 2.5 to 3.5, depending upon the indications. Lab Interpretation (test code = 10423-8) Normal [facility] Metabolic Panel (NA, K, CL, CO2, GLUCOSE, BUN, CREATININE, CA)2020-10-30 13:25:00* Test Item Value Reference Range Interpretation Comme nts NA (test code = 2549340142) 137 mmol/L 135-145 K (test code = 5355964792) 4.4 mmol/L 3.5-5 CL (test code = 7754424136) 101 mmol/L 98-108 CO2 TOTAL (test code = 0600612972) 28 mmol/L 23-31 AGAP (test code = 4905752381) 2-16 BUN (test code = 4187554479) 12 mg/dL 7-23 GLUCOSE (test code = 3928500697) 195 mg/dL 70-110 H CREATININE (test code = 3468798768) 0.42 mg/dL 0.5-1.04 L CALCIUM (test code = 6089900571) 9.2 mg/dL 8.6-10.6 eGFR Calculation (Non-) (test code = 7098675216) mL/min/1.73m2 eGFR Calculation () (test code = 9399007367) mL/min/1.73m2 MATTHEW (test code = MATTHEW) Association [...] imaging tests). Lab Interpretation (test code = 03429-4) Abnormal [facility] HospitalHepatic Function Panel (ALB, T.PRO, BILI T, BU/BC, ALT, AST, ALK PHOS)2020-10-30 13:25:00* Test Item Value Reference Range Interpretation Comme nts TOTAL BILI (test code = 3260592204) 1.1 mg/dL 0.1-1.1 BILI UNCON (test code = 5679232175) 0.8 mg/dL 0.1-1.1 BILI CONJ (test code = 8844543525) 0.0 mg/dL 0-0.3 T PROTEIN (test code = 8982731872) 8.2 g/dL 6.3-8.2 ALBUMIN (test code = 4340231319) 4.2 g/dL 3.5-5 ALK PHOS (test code = 5456967740) 109 U/L 34-122 ALTv (test code = 1742-6) 23 U/L 5-35 AST(SGOT) (test code = 8949249587) 35 U/L 13-40 Lab Interpretation (test cod e = 81602-4) Normal [facility] HospitalADC,CLC OR LCC ONLY - INFLUENZA A & B DIRECT [id number] 13:21:00* Test Item Value Reference Range Interpretation Comme nts Influenza A (test code = 55801-4) Negative Negative Influenza B (test code = 39635-8) Negative Negative Lab Interpretation (test cod e = 51739-2) Normal [facility] HospitalRAPI STREP SCREEN FOR GROUP [id number] 13:21:00* Test Item Value Reference Range Interpretation Comme nts Streptococcus pyogenes (grou p A) antigen (test code = 83673-1) Negative Negative Lab Interpretation (test cod e = 18395-0) Normal [facility] HospitalCOVID-19 (ID NOW RAPID TESTING)2020-10-30 13:18:00* Test Item Value Reference Range Interpretation Comme nts SARS-CoV-2 Rapid ID NOW (test code = 38842-0) Not Detected Not Detected MATTHEW (test code = MATTHEW) ID NOW COVID-19 As say is an isothermal nucleic acid amplification test intended for the qualitative detection of nucleic acid from SARS-CoV-2 viral RNA in nasopharyngeal (PAYROLL ADMINISTRATOR) specimens. It is used under Emergency Use [...] clinically indicated. Lab Interpretation (test code = 21179-3) Normal [facility] with Ejbmrodtxzfj6061-11-94 13:05:00* Test Item Value Reference Range Interpretation Comme nts WBC (test code = 6690-2) See_Comment H [Automated RNDOMNa [employer]] The system which generated this result transmitted reference range: 4.30 - 11.10 10*3/?L. The reference range was not used to interpret this result as normal/abnormal. RBC (test code = 789-8) See_Comment [Automated RNDOMNa [employer]] The system which generated this result transmitted [...] 32.4 g/dL 31.6-35.1 RDW-SD (test code = 45089-8) 41.0 fL 39-49.9 RDW-CV (test code = 788-0) 12.4 % 12-15.5 PLT (test code = 777-3) See_Comment H [Automated RNDOMNa ge] The system which generated this result transmitted reference range: 166 - 358 10*3/?L. The reference range was not used to interpret this result as normal/abnormal. MPV (test code = 64267-4) 10.5 fL 9.5-12.9 NRBC/100 WBC (test code = 2720386226) See_Comment [Automated [employer]] The system which generated this result transmitted reference range: 0.0 - 10.0 /100 WBCs. The reference range was not used to interpret this result as normal/abnormal. NRBC x10^3 (test code = 3171861473) <0.01 See_Comment [Automated RNDOMNa ge] The system which generated this result transmitted reference range: 10*3/?L. The reference range was not used to interpret this result as normal/abnormal. GRAN MAT (NEUT) % (test code = 770-8) 66.0 % IMM GRAN % (test code = 1042440890) 0.40 % LYMPH % (test code = 736-9) 19.5 % MONO % (test code = 5905-5) 9.3 % EOS % (test code = 713-8) 4.2 % BASO % (test code = 706-2) 0.6 % GRAN MAT x10^3(ANC) (test code = 8885408626) 7.63 10*3/uL 1.88-7.09 H IMM GRAN x10^3 (test code = 3029859025) 0.05 10*3/uL 0-0.06 LYMPH x10^3 (test code = 731-0) 2.26 10*3/uL 1.32-3.29 MONO x10^3 (test code = 742-7) 1.08 10*3/uL 0.33-0.92 H EOS x10^3 (test code = 711-2) 0.49 10*3/uL 0.03-0.39 H BASO x10^3 (test code = 704-7) 0.07 10*3/uL 0.01-0.07 Lab Interpretation (test code = 37074-9) Abnormal [facility] HospitalMAGNESIUM [ADDED]2020-10-12 00:00:00* Test Item Value Reference Range Interpretation Comme nts MAGNESIUM (test code = 2226) 2.0 MG/DL COMPREHENSIVE METABOLIC PANEL [ADDED]2020-10-12 00:00:00* Test Item Value Reference Range Interpretation Comme nts GLUCOSE (test code = 2217) 423 MG/DL BUN (test code = 2208) 11 MG/DL CREATININE (test code = 2214) 0.73 MG/DL eGFR AMER. (test cod e = 70213) 112 ML/MIN/1.73 eGFR NON- AMER. (test code = 25961) 97 ML/MIN/1.73 CALC BUN/CREAT (test code = [...] MG/DL eGFR AMER. (test cod e = 54893) 112 ML/MIN/1.73 eGFR NON- AMER. (test code = 65582) 97 ML/MIN/1.73 CALC BUN/CREAT (test code = [...] MG/DL eGFR AMER. (test cod e = 73556) 112 ML/MIN/1.73 eGFR NON- AMER. (test code = 08744) 97 ML/MIN/1.73 CALC BUN/CREAT (test code = [...] MG/DL eGFR AMER. (test cod e = 96000) 112 ML/MIN/1.73 eGFR NON- AMER. (test code = 01251) 97 ML/MIN/1.73 CALC BUN/CREAT (test code = [...] MG/DL eGFR AMER. (test cod e = 20567) 112 ML/MIN/1.73 eGFR NON- AMER. (test code = 85629) 97 ML/MIN/1.73 CALC BUN/CREAT (test code = [...] 0.5 MG/DL ALKALINE PHOSPHATASE (test code = 220) 110 U/L AST (test code = 2218) 18 U/L ALT (test code = 2219) 22 U/L Óscar Rose LucasMAGNESIUM [ADDED]2020-10-12 00:00:00* Test Item Value Reference Range Interpretation Comme nts MAGNESIUM (test code = 2226) 2.0 MG/DL Óscar Rose XvdnflHOUJ-ZcK-9 (COVID-19) by RT-PCR (HIGH RISK)2020-10-06 00:00:00* Test Item Value Reference Range Interpretation Comme nts SARS-CoV-2 INTERPRETATION (t est code = 04471) NEGATIVE SOURCE (test code = 93044) NOT SPECIFIED SARS-CoV-2 (COVID-19) by RT-PCR (HIGH RISK)2020-10-06 00:00:00* Test Item Value Reference Range Interpretation Comme nts SARS-CoV-2 INTERPRETATION (t est code = 31574) NEGATIVE SOURCE (test code = 54976) NOT SPECIFIED SARS-CoV-2 (COVID-19) by RT-PCR (HIGH RISK)2020-10-06 00:00:00* Test Item Value Reference Range Interpretation Comme nts SARS-CoV-2 INTERPRETATION (t est code = 29421) NEGATIVE SOURCE (test code = 49278) NOT SPECIFIED SARS-CoV-2 (COVID-19) by RT-PCR (HIGH RISK)2020-10-06 00:00:00* Test Item Value Reference Range Interpretation Comme nts SARS-CoV-2 INTERPRETATION (t est code = 19949) NEGATIVE SOURCE (test code = 17756) NOT SPECIFIED SARS-CoV-2 (COVID-19) by RT-PCR (HIGH RISK)2020-10-06 00:00:00* Test Item Value Reference Range Interpretation Comme nts SARS-CoV-2 INTERPRETATION (t est code = 32328) NEGATIVE SOURCE (test code = 77020) NOT SPECIFIED Óscar ZavalaXR CHEST 1 [id number] 00:19:17Grossly unchanged streaky opacities associated with known COVID 19pneumonia. Preliminary Report Dictated by Resident: Gurjit Clark MD., have reviewed this study and agree with the abovereport.EXAM: XR CHEST 1 VW HISTORY: 50 years-old [...] reviewed this study and agree with the [facility]report[facility] 2020-[facility] 23:37:00* Test Item Value Reference Range Interpretation Comme nts APPEARANCE (test code = 6753719116) Clear Clear COLOR (test code = 6426097786) Yellow Yellow PH (test code = 6038257827) 4.8-8.0 SP GRAVITY (test code = 7417654079) 1.003-1.030 GLU U QUAL (test code = 6171976446) Normal Normal BLOOD (test code = 7709270175) Negative Negative KETONES (test code = 9099951266) Negative Negative PROTEIN (test code = 2887-8) Negative Negative UROBILIN (test code = 1703506992) Normal Normal BILIRUBIN (test code = 3056382667) Negative Negative NITRITE (test code = 3525095130) Negative Negative LEUK CHASITY (test code = 8753403819) 500/uL Negative A RBC/HPF (test code = 4302629816) See_Comment [Automated messa ge] The system which generated this result transmitted reference range: 0 - 3 HPF. The reference range was not used to interpret this result as normal/abnormal. WBC/HPF (test code = 6393428038) See_Comment H [Automated messa ge] The system which generated this result transmitted reference range: 0 - 5 HPF. The reference range was not used to interpret this result as normal/abnormal. BACTERIA (test code = 9993066470) Few Negative A MUCOUS (test code = 6887053914) Slight Negative LPF A SQ EPITH (test code = 1690722232) HPF TRANS EPI (test code = 4739031662) <1 See_Comment [Automated messa ge] The system which generated this result transmitted reference range: <=1 HPF. The reference range was not used to interpret this result as normal/abnormal. Lab Interpretation (test code = 81225-8) Abnormal [facility] [id number] 22:39:00* Test Item Value Reference Range Interpretation Comme nts TROPONIN I (test code = 4517739348) <0.012 See_Comment [Automated message] The system which [...] biotin. ? Lab Interpretation (test code = 11656-4) [facility] [id number] 22:36:00* Test Item Value Reference Range Interpretation Comme nts NT-proBNP (test code = 4203728015) 54 pg/mL See_Comment [Automated message] The system which generated this result transmitted reference range: <=125. The reference range was not used to interpret this result as normal/abnormal. MATTHEW (test code = MATTHEW) Biotin has been reported to cause a negative bias, interpret results relative to patient's use of biotin. Lab Interpretation (test code = 46802-8) [facility] MET[facility]OLIC PANEL (64048)2020-09-26 22:28:00* Test Item Value Reference Range Interpretation Comme nts NA (test code = 1053717840) 137 mmol/L 135-145 K (test code = 2801479786) 3.2 mmol/L 3.5-5 L CL (test code = 0398024799) 97 mmol/L 98-108 L CO2 TOTAL (test code = 3533439542) 30 mmol/L 23-31 AGAP (test code = 2481026582) 2-16 BUN (test code = 4202197078) 9 mg/dL 7-23 GLUCOSE (test code = 5220401773) 191 mg/dL 70-110 H CREATININE (test code = 4087157645) 0.52 mg/dL 0.5-1.04 TOTAL BILI (test code = 1963360646) 0.8 mg/dL 0.1-1.1 CALCIUM (test code = 5051908004) 8.9 mg/dL 8.6-10.6 T PROTEIN (test code = 2591220956) 7.4 g/dL 6.3-8.2 ALBUMIN (test code = 4765690260) 4.1 g/dL 3.5-5 ALK PHOS (test code = 6063974354) 98 U/L 34-122 ALTv (test code = 1742-6) 19 U/L 5-35 AST(SGOT) (test code = 7603213212) 21 U/L 13-40 eGFR Calculation (Non-) (test code = 3382473768) mL/min/1.73m2 eGFR Calculation () (test code = 2782477960) mL/min/1.73m2 MATTHEW (test code = MATTHEW) Association [...] imaging tests). Lab Interpretation (test code = 75288-4) [facility]normal [facility] HospitalLIPASE2020-12-[facility] 22:27:00* Test Item Value Reference Range Interpretation Comme nts LIPASE (test code = 8097938118) 90 U/L 0-220 Lab Interpretation (test cod e = 91584-3) [facility]CBC WITH [id number] 22:26:00* Test Item Value Reference Range Interpretation [...] 32.6 g/dL 31.6-35.1 RDW-SD (test code = 02282-3) 40.6 fL 39-49.9 RDW-CV (test code = 788-0) 12.4 % 12-15.5 PLT (test code = 777-3) See_Comment H [Automated messa ge] The system which generated this result transmitted reference range: 166 - 358 10*3/?L. The reference range was not used to interpret this result as normal/abnormal. MPV (test code = 28507-2) 10.3 fL 9.5-12.9 NRBC/100 WBC (test code = 0912851564) See_Comment [Automated me ssage] The system which generated this result transmitted reference range: 0.0 - 10.0 /100 WBCs. The reference range was not used to interpret this result as normal/abnormal. NRBC x10^3 (test code = 7318877674) <0.01 See_Comment [Automated messa ge] The system which generated this result transmitted reference range: 10*3/?L. The reference range was not used to interpret this result as normal/abnormal. GRAN MAT (NEUT) % (test code = 770-8) 65.8 % IMM GRAN % (test code = 4024908223) 0.50 % LYMPH % (test code = 736-9) 22.4 % MONO % (test code = 5905-5) 8.9 % EOS % (test code = 713-8) 2.1 % BASO % (test code = 706-2) 0.3 % GRAN MAT x10^3(ANC) (test code = 5537995606) 7.21 10*3/uL 1.88-7.09 H IMM GRAN x10^3 (test code = 7040647384) 0.06 10*3/uL 0-0.06 LYMPH x10^3 (test code = 731-0) 2.45 10*3/uL 1.32-3.29 MONO x10^3 (test code = 742-7) 0.98 10*3/uL 0.33-0.92 H EOS x10^3 (test code = 711-2) 0.23 10*3/uL 0.03-0.39 BASO x10^3 (test code = 704-7) 0.03 10*3/uL 0.01-0.07 Lab Interpretation (test code = 30217-4) [facility]normal [facility] ([facility]OVID-19) by RT-PCR (HIGH RISK) 2020-09-25 00:00:00* Test Item Value Reference Range Interpretation Comme nts SARS-CoV-2 INTERPRETATION (t est code = 27631) POSITIVE SOURCE (test code = 82230) NOT SPECIFIED SARS-CoV-2 (COVID-19) by RT-PCR (HIGH RISK)2020-09-25 00:00:00* Test Item Value Reference Range Interpretation Comme nts SARS-CoV-2 INTERPRETATION (t est code = 93878) POSITIVE SOURCE (test code = 33648) NOT SPECIFIED SARS-CoV-2 (COVID-19) by RT-PCR (HIGH RISK)2020-09-25 00:00:00* Test Item Value Reference Range Interpretation Comme nts SARS-CoV-2 INTERPRETATION (t est code = 94122) POSITIVE SOURCE (test code = 64440) NOT SPECIFIED SARS-CoV-2 (COVID-19) by RT-PCR (HIGH RISK)2020-09-25 00:00:00* Test Item Value Reference Range Interpretation Comme nts SARS-CoV-2 INTERPRETATION (t est code = 03321) POSITIVE SOURCE (test code = 75045) NOT SPECIFIED SARS-CoV-2 (COVID-19) by RT-PCR (HIGH RISK)2020-09-25 00:00:00* Test Item Value Reference Range Interpretation Comme nts SARS-CoV-2 INTERPRETATION (t est code = 25072) POSITIVE SOURCE (test code = 36995) NOT SPECIFIED Óscar Rose AustinCT CHEST PULMONARY [id number] 02:11:181. ?No acute pulmonary embolism. PROCEDURE: CT [...] abdomen: Unremarkable. IMPRESSION1. No acute pulmonary embolism. [facility] [id number] 01:20:00* Test Item Value Reference Range Interpretation Comments D-DIMER (test code = 6374942233) See_Comment H [Automated message] The system which [...] a diagnosis. Lab Interpretation (test code = 03610-6) Abnormal [facility]XR [facility] 1 [id number] 23:44:22Slightly suboptimal lung volumes with perihilar streaky [...] reviewed this study and agree withthe above report.[facility] HospitalCOVID-[facility] (ID NOW RAPID TESTING)2020-09-01 23:26:00* Test Item Value Reference Range Interpretation Comme nts SARS-CoV-2 Rapid ID NOW (test code = 16727-4) Positive Not Detected A MATTHEW (test code = MATTHEW) ID NOW COVID-19 As say is an isothermal nucleic acid amplification test intended for the qualitative detection of nucleic acid from SARS-CoV-2 viral RNA in nasopharyngeal (PAYROLL ADMINISTRATOR) specimens. It is used under Emergency Use [...] clinically indicated. Lab Interpretation (test code = 15554-2) Abnormal [facility]ADC,[facility] OR [facility] ONLY - INFLUENZA A & B DIRECT [id number] 23:26:00* Test Item Value Reference Range Interpretation Comme nts Influenza A (test code = 95768-4) Negative Negative Influenza B (test code = 45679-8) Negative Negative Lab Interpretation (test cod e = 33961-9) Normal [facility]IS2020-11-26 23:22:00* Test Item Value Reference Range Interpretation Comme nts APPEARANCE (test code = 7685866647) Clear Clear COLOR (test code = 2725173262) Yellow Yellow PH (test code = 6662433291) 4.8-8.0 SP GRAVITY (test code = 7787749925) 1.003-1.030 GLU U QUAL (test code = 5841562022) 500 mg/dL Normal A BLOOD (test code = 3614581059) Negative Negative KETONES (test code = 6156847420) Negative Negative PROTEIN (test code = 2887-8) 30 mg/dL Negative A UROBILIN (test code = 6572816347) Normal Normal BILIRUBIN (test code = 4041305504) Negative Negative NITRITE (test code = 5457485156) Negative Negative LEUK CHASITY (test code = 7007230856) 250/uL Negative A RBC/HPF (test code = 1409917650) See_Comment H [Automated RNDOMNa ge] The system which generated this result transmitted reference range: 0 - 3 HPF. The reference range was not used to interpret this result as normal/abnormal. WBC/HPF (test code = 0164292445) See_Comment [Automated RNDOMNa ge] The system which generated this result transmitted reference range: 0 - 5 HPF. The reference range was not used to interpret this result as normal/abnormal. BACTERIA (test code = 0218950906) Few Negative A MUCOUS (test code = 7162348583) Slight Negative LPF A SQ EPITH (test code = 6819320791) HPF Lab Interpretation (test code = 49302-2) Abnormal [facility]N-[facility]MINAL [id number] 23:20:00* Test Item Value Reference Range Interpretation Comme nts NT-proBNP (test code = 2291810794) 38 pg/mL See_Comment [Automated message] The system which generated this result transmitted reference range: <=125. The reference range was not used to interpret this result as normal/abnormal. MATTHEW (test code = MATTHEW) Biotin has been reported to cause a negative bias, interpret results relative to patient's use of biotin. Lab Interpretation (test code = 84175-7) Normal [facility] HospitalCOMP. METABOLIC PANEL (22751)2020-09-01 23:12:00* Test Item Value Reference Range Interpretation Comme nts NA (test code = 1115374910) 137 mmol/L 135-145 K (test code = 0845348161) 3.9 mmol/L 3.5-5 CL (test code = 0259094176) 100 mmol/L 98-108 CO2 TOTAL (test code = 2884788374) 29 mmol/L 23-31 AGAP (test code = 4584142036) 2-16 BUN (test code = 6653466244) 17 mg/dL 7-23 GLUCOSE (test code = 4647599723) 174 mg/dL 70-110 H CREATININE (test code = 3279597554) 0.56 mg/dL 0.5-1.04 TOTAL BILI (test code = 7799436541) 0.6 mg/dL 0.1-1.1 CALCIUM (test code = 0606246311) 9.2 mg/dL 8.6-10.6 T PROTEIN (test code = 7663040482) 7.9 g/dL 6.3-8.2 ALBUMIN (test code = 2428325380) 4.3 g/dL 3.5-5 ALK PHOS (test code = 0641974656) 101 U/L 34-122 ALTv (test code = 1742-6) 32 U/L 5-35 AST(SGOT) (test code = 5067717712) 28 U/L 13-40 eGFR Calculation (Non-) (test code = 8125073053) mL/min/1.73m2 eGFR Calculation () (test code = 8824463263) mL/min/1.73m2 MATTHEW (test code = MATTHEW) Association [...] imaging tests). Lab Interpretation (test code = 80115-6) Abnormal [facility] WITH [id number] 23:01:00* Test Item Value Reference Range Interpretation Comme nts WBC (test code = 6690-2) See_Comment [Automated [employer]] The system which generated this result transmitted reference range: 4.30 - 11.10 10*3/?L. The reference range was not used to interpret this result as normal/abnormal. RBC (test code = 789-8) See_Comment [Automated [employer]] The system which generated this result [...] 32.9 g/dL 31.6-35.1 RDW-SD (test code = 98393-1) 41.6 fL 39-49.9 RDW-CV (test code = 788-0) 12.6 % 12-15.5 PLT (test code = 777-3) See_Comment [Automated RNDOMNa ge] The system which generated this result transmitted reference range: 166 - 358 10*3/?L. The reference range was not used to interpret this result as normal/abnormal. MPV (test code = 89853-9) 10.0 fL 9.5-12.9 NRBC/100 WBC (test code = 4465397089) See_Comment [Automated [employer] ssage] The system which generated this result transmitted reference range: 0.0 - 10.0 /100 WBCs. The reference range was not used to interpret this result as normal/abnormal. NRBC x10^3 (test code = 2225720357) <0.01 See_Comment [Automated RNDOMNa ge] The system which generated this result transmitted reference range: 10*3/?L. The reference range was not used to interpret this result as normal/abnormal. GRAN MAT (NEUT) % (test code = 770-8) 77.1 % IMM GRAN % (test code = 7741250122) 0.40 % LYMPH % (test code = 736-9) 10.9 % MONO % (test code = 5905-5) 10.4 % EOS % (test code = 713-8) 0.7 % BASO % (test code = 706-2) 0.5 % GRAN MAT x10^3(ANC) (test code = 3555536220) 6.59 10*3/uL 1.88-7.09 IMM GRAN x10^3 (test code = 0016534384) 0.03 10*3/uL 0-0.06 LYMPH x10^3 (test code = 731-0) 0.93 10*3/uL 1.32-3.29 L MONO x10^3 (test code = 742-7) 0.89 10*3/uL 0.33-0.92 EOS x10^3 (test code = 711-2) 0.06 10*3/uL 0.03-0.39 BASO x10^3 (test code = 704-7) 0.04 10*3/uL 0.01-0.07 Lab Interpretation (test code = 25263-6) Abnormal [facility] HospitalLaksic Acid Whole [id number] 22:55:00* Test Item Value Reference Range Interpretation Comme nts LACTIC ACID (test code = 8437842578) 1.33 mmol/L [facility] HospitalPOCT [id number] 22:52:00* Test Item Value Reference Range Interpretation Comme nts POCT PREG (test code = 1605) negative On board controls acceptable with C Line (test code = 3574) present POCT PREG LOT # (test code = 3575) [id number] POCT PREG TEST DATE ( test code = 3576) 02/03/2022 Lab Interpretation (test cod e = 04579-2) Normal [facility] HospitalHEMOGLOBIN [id number] 00:00:00* Test Item Value Reference Range Interpretation Comme nts HEMOGLOBIN A1c (test code = 80180) 7.0 % C-REACTIVE [id number] 00:00:00* Test Item Value Reference Range Interpretation Comme nts C-REACTIVE PROTEIN (test cod e = 3513) 0.7 MG/DL SEDIMENTATION [id number] 00:00:00* Test Item Value Reference Range Interpretation Comme nts SEDIMENTATION RATE (test cod e = 1017) 22 MM/HOUR URIC [id number] 00:00:00* Test Item Value Reference Range Interpretation Comme nts URIC ACID (test code = 2233) 3.6 MG/DL SUKHI REFLEX AUTOIMMUNE AB [id number] 00:00:00* Test Item Value Reference Range Interpretation Comme nts ANTI-NUCLEAR ANTIBODIES (michael t code = 3506) NEGATIVE COMPREHENSIVE METABOLIC [id number] 00:00:00* Test Item Value Reference Range Interpretation Comme nts GLUCOSE (test code = 2217) 101 MG/DL BUN (test code = 2208) 10 MG/DL CREATININE (test code = 2214) 0.62 MG/DL eGFR AMER. (test cod e = 59068) 123 ML/MIN/1.73 eGFR NON- AMER. (test code = 06674) 106 ML/MIN/1.73 CALC BUN/CREAT (test code = [...] (test code = 2219) 196 U/L HEMOGLOBIN [id number] 00:00:00* Test Item Value Reference Range Interpretation Comme nts HEMOGLOBIN A1c (test code = 80711) 7.0 % C-REACTIVE [id number] 00:00:00* Test Item Value Reference Range Interpretation Comme nts C-REACTIVE PROTEIN (test cod e = 3513) 0.7 MG/DL SEDIMENTATION [id number] 00:00:00* Test Item Value Reference Range Interpretation Comme nts SEDIMENTATION RATE (test cod e = 1017) 22 MM/HOUR URIC [id number] 00:00:00* Test Item Value Reference Range Interpretation Comme nts URIC ACID (test code = 2233) 3.6 MG/DL SUKHI REFLEX AUTOIMMUNE AB [id number] 00:00:00* Test Item Value Reference Range Interpretation Comme nts ANTI-NUCLEAR ANTIBODIES (michael t code = 3506) NEGATIVE COMPREHENSIVE METABOLIC [id number] 00:00:00* Test Item Value Reference Range Interpretation Comme nts GLUCOSE (test code = 2217) 101 MG/DL BUN (test code = 2208) 10 MG/DL CREATININE (test code = 2214) 0.62 MG/DL eGFR AMER. (test cod e = 10522) 123 ML/MIN/1.73 eGFR NON- AMER. (test code = 20763) 106 ML/MIN/1.73 CALC BUN/CREAT (test code = [...] (test code = 2219) 196 U/L HEMOGLOBIN [id number] 00:00:00* Test Item Value Reference Range Interpretation Comme nts HEMOGLOBIN A1c (test code = 47291) 7.0 % C-REACTIVE [id number] 00:00:00* Test Item Value Reference Range Interpretation Comme nts C-REACTIVE PROTEIN (test cod e = 3513) 0.7 MG/DL SEDIMENTATION [id number] 00:00:00* Test Item Value Reference Range Interpretation Comme nts SEDIMENTATION RATE (test cod e = 1017) 22 MM/HOUR URIC [id number] 00:00:00* Test Item Value Reference Range Interpretation Comme nts URIC ACID (test code = 2233) 3.6 MG/DL SUKHI REFLEX AUTOIMMUNE AB [id number] 00:00:00* Test Item Value Reference Range Interpretation Comme nts ANTI-NUCLEAR ANTIBODIES (michael t code = 3506) NEGATIVE COMPREHENSIVE METABOLIC [id number] 00:00:00* Test Item Value Reference Range Interpretation Comme nts GLUCOSE (test code = 2217) 101 MG/DL BUN (test code = 2208) 10 MG/DL CREATININE (test code = 2214) 0.62 MG/DL eGFR AMER. (test cod e = 38662) 123 ML/MIN/1.73 eGFR NON- AMER. (test code = 57489) 106 ML/MIN/1.73 CALC BUN/CREAT (test code = [...] (test code = 2219) 196 U/L HEMOGLOBIN [id number] 00:00:00* Test Item Value Reference Range Interpretation Comme nts HEMOGLOBIN A1c (test code = 04536) 7.0 % C-REACTIVE [id number] 00:00:00* Test Item Value Reference Range Interpretation Comme nts C-REACTIVE PROTEIN (test cod e = 3513) 0.7 MG/DL SEDIMENTATION [id number] 00:00:00* Test Item Value Reference Range Interpretation Comme nts SEDIMENTATION RATE (test cod e = 1017) 22 MM/HOUR URIC [id number] 00:00:00* Test Item Value Reference Range Interpretation Comme nts URIC ACID (test code = 2233) 3.6 MG/DL SUKHI REFLEX AUTOIMMUNE AB [id number] 00:00:00* Test Item Value Reference Range Interpretation Comme nts ANTI-NUCLEAR ANTIBODIES (michael t code = 3506) NEGATIVE COMPREHENSIVE METABOLIC [id number] 00:00:00* Test Item Value Reference Range Interpretation Comme nts GLUCOSE (test code = 2217) 101 MG/DL BUN (test code = 2208) 10 MG/DL CREATININE (test code = 2214) 0.62 MG/DL eGFR AMER. (test cod e = 50482) 123 ML/MIN/1.73 eGFR NON- AMER. (test code = 10572) 106 ML/MIN/1.73 CALC BUN/CREAT (test code = [...] ALT (test code = 2219) 196 U/L C-REACTIVE [id number] 00:00:00* Test Item Value Reference Range Interpretation Comme nts C-REACTIVE PROTEIN (test cod e = 3513) 0.7 MG/DL Óscar Rose AustinSEDIMENTATION [id number] 00:00:00* Test Item Value Reference Range Interpretation Comme nts SEDIMENTATION RATE (test cod e = 1017) 22 MM/HOUR Óscar F AustinURIC [id number] 00:00:00* Test Item Value Reference Range Interpretation Comme nts URIC ACID (test code = 2233) 3.6 MG/DL Óscar F LucasANA REFLEX AUTOIMMUNE AB [id number] 00:00:00* Test Item Value Reference Range Interpretation Comme nts ANTI-NUCLEAR ANTIBODIES (michael t code = 3506) NEGATIVE Óscar F LucasCOMPREHENSIVE METABOLIC [id number] 00:00:00* Test Item Value Reference Range Interpretation Comme nts GLUCOSE (test code = 2217) 101 MG/DL BUN (test code = 2208) 10 MG/DL CREATININE (test code = 2214) 0.62 MG/DL eGFR AMER. (test cod e = 45683) 123 ML/MIN/1.73 eGFR NON- AMER. (test code = 26949) 106 ML/MIN/1.73 CALC BUN/CREAT (test code = [...] ALT (test code = 2219) 196 U/L Óscar Rose LucasHEMOGLOBIN [id number] 00:00:00* Test Item Value Reference Range Interpretation Comme nts HEMOGLOBIN A1c (test code = 39567) 7.0 % Óscar Rose LucasCT ABDOMEN PELVIS W [id number] 04:56:15No acute intra- abdominal or intrapelvic process. Preliminary Report Dictated by [...] reviewed this study and agree with the abovereport.[facility] [id number] 03:06:00* Test Item Value Reference Range Interpretation Comme nts APPEARANCE (test code = 4301273188) Hazy Clear A COLOR (test code = 9094475245) Loren Yellow A PH (test code = 2164813222) 4.8-8.0 SP GRAVITY (test code = 2163845417) 1.003-1.030 GLU U QUAL (test code = 5827834019) Normal Normal BLOOD (test code = 0770320655) Negative Negative KETONES (test code = 4153948136) Negative Negative PROTEIN (test code = 2887-8) 100 mg/dL Negative A UROBILIN (test code = 3655690402) 2.0 mg/dL Normal A BILIRUBIN (test code = 8690026514) Negative Negative NITRITE (test code = 9247933960) Negative Negative LEUK CHASITY (test code = 6487918992) Negative Negative RBC/HPF (test code = 3801189562) See_Comment [Automated RNDOMNa ge] The system which generated this result transmitted reference range: 0 - 3 HPF. The reference range was not used to interpret this result as normal/abnormal. WBC/HPF (test code = 0486674760) See_Comment [Automated RNDOMNa ge] The system which generated this result transmitted reference range: 0 - 5 HPF. The reference range was not used to interpret this result as normal/abnormal. BACTERIA (test code = 1546566876) Few Negative A MUCOUS (test code = 5125750000) Moderate Negative LPF A SQ EPITH (test code = 0438358075) HPF Lab Interpretation (test code = 33411-5) Abnormal [facility]. METABOLIC PANEL (06755)2020-07-26 02:41:00* Test Item Value Reference Range Interpretation Comme nts NA (test code = 9518360155) 139 mmol/L 135-145 K (test code = 4876085801) 3.4 mmol/L 3.5-5 L CL (test code = 8264154758) 99 mmol/L 98-108 CO2 TOTAL (test code = 1868435637) 31 mmol/L 23-31 AGAP (test code = 2248073154) 2-16 BUN (test code = 8042060753) 18 mg/dL 7-23 GLUCOSE (test code = 3847794735) 151 mg/dL 70-110 H CREATININE (test code = 5049766276) 0.59 mg/dL 0.5-1.04 TOTAL BILI (test code = 9037554235) 0.8 mg/dL 0.1-1.1 CALCIUM (test code = 2929255594) 9.5 mg/dL 8.6-10.6 T PROTEIN (test code = 0327015731) 7.8 g/dL 6.3-8.2 ALBUMIN (test code = 7194396222) 4.2 g/dL 3.5-5 ALK PHOS (test code = 0412655826) 91 U/L 34-122 ALTv (test code = 1742-6) 24 U/L 5-35 AST(SGOT) (test code = 6199235649) 25 U/L 13-40 eGFR Calculation (Non-) (test code = 1233074987) mL/min/1.73m2 eGFR Calculation () (test code = 0412771393) mL/min/1.73m2 MATTHEW (test code = MATTHEW) Association [...] imaging tests). Lab Interpretation (test code = 64895-8) [facility] Test Item Value Reference Range Interpretation Comme nts LIPASE (test code = 6275767200) 149 U/L 0-220 Lab Interpretation (test cod e = 07713-1) Normal [facility] WITH [id number] 02:25:00* Test Item Value Reference Range Interpretation [...] 33.3 g/dL 31.6-35.1 RDW-SD (test code = 58068-6) 40.0 fL 39-49.9 RDW-CV (test code = 788-0) 12.4 % 12-15.5 PLT (test code = 777-3) See_Comment H [Automated message] The system which generated this result transmitted reference range: 166 - 358 10*3/?L. The reference range was not used to interpret this result as normal/abnormal. MPV (test code = 19962-4) 9.7 fL 9.5-12.9 NRBC/100 WBC (test code = 0250083322) See_Comment [Automated message] The system which generated this result transmitted reference range: 0.0 - 10.0 /100 WBCs. The reference range was not used to interpret this result as normal/abnormal. NRBC x10^3 (test code = 0879746315) <0.01 See_Comment [Automated message] The system which generated this result transmitted reference range: 10*3/?L. The reference range was not used to interpret this result as normal/abnormal. GRAN MAT (NEUT) % (test code = 770-8) 80.1 % IMM GRAN % (test code = 2908279486) 0.60 % LYMPH % (test code = 736-9) 10.7 % MONO % (test code = 5905-5) 6.3 % EOS % (test code = 713-8) 1.9 % BASO % (test code = 706-2) 0.4 % GRAN MAT x10^3(ANC) (test code = 8224023555) 14.29 10*3/uL 1.88-7.09 H IMM GRAN x10^3 (test code = 7550981750) 0.10 10*3/uL 0-0.06 H LYMPH x10^3 (test code = 731-0) 1.90 10*3/uL 1.32-3.29 MONO x10^3 (test code = 742-7) 1.12 10*3/uL 0.33-0.92 H EOS x10^3 (test code = 711-2) 0.34 10*3/uL 0.03-0.39 BASO x10^3 (test code = 704-7) 0.07 10*3/uL 0.01-0.07 Lab Interpretation (test code = 05397-6) [facility] [id number] 00:00:00* Test Item Value Reference Range Interpretation Comme nts HEMOGLOBIN A1c (test code = 97455) 10.1 % HEMOGLOBIN [id number] 00:00:00* Test Item Value Reference Range Interpretation Comme nts HEMOGLOBIN A1c (test code = 16888) 10.1 % HEMOGLOBIN [id number] 00:00:00* Test Item Value Reference Range Interpretation Comme nts HEMOGLOBIN A1c (test code = 07283) 10.1 % HEMOGLOBIN [id number] 00:00:00* Test Item Value Reference Range Interpretation Comme nts HEMOGLOBIN A1c (test code = 58314) 10.1 % HEMOGLOBIN [id number] 00:00:00* Test Item Value Reference Range Interpretation Comme nts HEMOGLOBIN A1c (test code = 08598) 10.1 % Óscar F AustinHEMOGLOBIN [id number] 00:00:00* Test Item Value Reference Range Interpretation Comme nts HEMOGLOBIN A1c (test code = 59127) 12.0 % LIPID [id number] 00:00:00* Test Item Value Reference Range Interpretation Comme nts CHOLESTEROL (test code = 2210) 202 MG/DL TRIGLYCERIDES (test code = 2232) 147 MG/DL HDL CHOLESTEROL (test code = 2220) 57 MG/DL CALC LDL CHOL (test code = 2237) 119 MG/DL RISK RATIO LDL/HDL (test cod e = 2238) 2.09 RATIO COMPREHENSIVE METABOLIC [id number] 00:00:00* Test Item Value Reference Range Interpretation Comme nts GLUCOSE (test code = 2217) 310 MG/DL BUN (test code = 2208) 15 MG/DL CREATININE (test code = 2214) 0.55 MG/DL eGFR AMER. (test cod e = 56798) 129 ML/MIN/1.73 eGFR NON- AMER. (test code = 55409) 111 ML/MIN/1.73 CALC BUN/CREAT (test code = [...] 20 U/L VITAMIN B 12 AND FOLIC [id number] 00:00:00* Test Item Value Reference Range Interpretation Comme nts VITAMIN B-12 (test code = 2840) 708 PG/ML FOLIC ACID (test code = 2695) 11.9 UG/L CBC W/AUTO [id number] 00:00:00* Test Item Value Reference Range Interpretation [...] (test code = 1015) 364 K/UL HEMOGLOBIN [id number] 00:00:00* Test Item Value Reference Range Interpretation Comme nts HEMOGLOBIN A1c (test code = 60538) 12.0 % LIPID [id number] 00:00:00* Test Item Value Reference Range Interpretation Comme nts CHOLESTEROL (test code = 2210) 202 MG/DL TRIGLYCERIDES (test code = 2232) 147 MG/DL HDL CHOLESTEROL (test code = 2220) 57 MG/DL CALC LDL CHOL (test code = 2237) 119 MG/DL RISK RATIO LDL/HDL (test cod e = 2238) 2.09 RATIO COMPREHENSIVE METABOLIC [id number] 00:00:00* Test Item Value Reference Range Interpretation Comme nts GLUCOSE (test code = 2217) 310 MG/DL BUN (test code = 2208) 15 MG/DL CREATININE (test code = 2214) 0.55 MG/DL eGFR AMER. (test cod e = 74935) 129 ML/MIN/1.73 eGFR NON- AMER. (test code = 32556) 111 ML/MIN/1.73 CALC BUN/CREAT (test code = [...] 20 U/L VITAMIN B 12 AND FOLIC [id number] 00:00:00* Test Item Value Reference Range Interpretation Comme nts VITAMIN B-12 (test code = 2840) 708 PG/ML FOLIC ACID (test code = 2695) 11.9 UG/L CBC W/AUTO [id number] 00:00:00* Test Item Value Reference Range Interpretation [...] (test code = 1015) 364 K/UL HEMOGLOBIN [id number] 00:00:00* Test Item Value Reference Range Interpretation Comme nts HEMOGLOBIN A1c (test code = 10156) 12.0 % LIPID [id number] 00:00:00* Test Item Value Reference Range Interpretation Comme nts CHOLESTEROL (test code = 2210) 202 MG/DL TRIGLYCERIDES (test code = 2232) 147 MG/DL HDL CHOLESTEROL (test code = 2220) 57 MG/DL CALC LDL CHOL (test code = 2237) 119 MG/DL RISK RATIO LDL/HDL (test cod e = 2238) 2.09 RATIO COMPREHENSIVE METABOLIC [id number] 00:00:00* Test Item Value Reference Range Interpretation Comme nts GLUCOSE (test code = 2217) 310 MG/DL BUN (test code = 2208) 15 MG/DL CREATININE (test code = 2214) 0.55 MG/DL eGFR AMER. (test cod e = 46683) 129 ML/MIN/1.73 eGFR NON- AMER. (test code = 86508) 111 ML/MIN/1.73 CALC BUN/CREAT (test code = [...] 20 U/L VITAMIN B 12 AND FOLIC [id number] 00:00:00* Test Item Value Reference Range Interpretation Comme nts VITAMIN B-12 (test code = 2840) 708 PG/ML FOLIC ACID (test code = 2695) 11.9 UG/L CBC W/AUTO [id number] 00:00:00* Test Item Value Reference Range Interpretation [...] (test code = 1015) 364 K/UL HEMOGLOBIN [id number] 00:00:00* Test Item Value Reference Range Interpretation Comme nts HEMOGLOBIN A1c (test code = 74932) 12.0 % LIPID [id number] 00:00:00* Test Item Value Reference Range Interpretation Comme nts CHOLESTEROL (test code = 2210) 202 MG/DL TRIGLYCERIDES (test code = 2232) 147 MG/DL HDL CHOLESTEROL (test code = 2220) 57 MG/DL CALC LDL CHOL (test code = 2237) 119 MG/DL RISK RATIO LDL/HDL (test cod e = 2238) 2.09 RATIO COMPREHENSIVE METABOLIC [id number] 00:00:00* Test Item Value Reference Range Interpretation Comme nts GLUCOSE (test code = 2217) 310 MG/DL BUN (test code = 2208) 15 MG/DL CREATININE (test code = 2214) 0.55 MG/DL eGFR AMER. (test cod e = 13772) 129 ML/MIN/1.73 eGFR NON- AMER. (test code = 65669) 111 ML/MIN/1.73 CALC BUN/CREAT (test code = [...] 20 U/L VITAMIN B 12 AND FOLIC [id number] 00:00:00* Test Item Value Reference Range Interpretation Comme nts VITAMIN B-12 (test code = 2840) 708 PG/ML FOLIC ACID (test code = 2695) 11.9 UG/L CBC W/AUTO [id number] 00:00:00* Test Item Value Reference Range Interpretation [...] (test code = 1015) 364 K/UL HEMOGLOBIN [id number] 00:00:00* Test Item Value Reference Range Interpretation Comme nts HEMOGLOBIN A1c (test code = 79080) 12.0 % Óscar Rose AustinLIPID [id number] 00:00:00* Test Item Value Reference Range Interpretation Comme nts CHOLESTEROL (test code = 2210) 202 MG/DL TRIGLYCERIDES (test code = 2232) 147 MG/DL HDL CHOLESTEROL (test code = 2220) 57 MG/DL CALC LDL CHOL (test code = 2237) 119 MG/DL RISK RATIO LDL/HDL (test cod e = 2238) 2.09 RATIO Óscar ZavalaCOMPREHENSIVE METABOLIC [id number] 00:00:00* Test Item Value Reference Range Interpretation Comme nts GLUCOSE (test code = 2217) 310 MG/DL BUN (test code = 2208) 15 MG/DL CREATININE (test code = 2214) 0.55 MG/DL eGFR AMER. (test cod e = 40169) 129 ML/MIN/1.73 eGFR NON- AMER. (test code = 70228) 111 ML/MIN/1.73 CALC BUN/CREAT (test code = [...] ALT (test code = 2219) 20 U/L Óscar ZavalaVITAMIN B 12 AND FOLIC [id number] 00:00:00* Test Item Value Reference Range Interpretation Comme nts VITAMIN B-12 (test code = 2840) 708 PG/ML FOLIC ACID (test code = 2695) 11.9 UG/L Óscar ZavalaCBC W/AUTO [id number] 00:00:00* Test Item Value Reference Range Interpretation [...] COUNT (test code = 1015) 364 K/UL Óscar ZavalaSARS-CoV-2 (COVID-19) by RT-PCR (HIGH RISK)2020-04-01 00:00:00* Test Item Value Reference Range Interpretation Comme nts SARS-CoV-2 INTERPRETATION (t est code = 86073) NEGATIVE SOURCE (test code = 01827) NOT SPECIFIED SARS-CoV-2 (COVID-19) by RT-PCR (HIGH RISK)2020-04-01 00:00:00* Test Item Value Reference Range Interpretation Comme nts SARS-CoV-2 INTERPRETATION (t est code = 93422) NEGATIVE SOURCE (test code = 42302) NOT SPECIFIED SARS-CoV-2 (COVID-19) by RT-PCR (HIGH RISK)2020-04-01 00:00:00* Test Item Value Reference Range Interpretation Comme nts SARS-CoV-2 INTERPRETATION (t est code = 92229) NEGATIVE SOURCE (test code = 74133) NOT SPECIFIED SARS-CoV-2 (COVID-19) by RT-PCR (HIGH RISK)2020-04-01 00:00:00* Test Item Value Reference Range Interpretation Comme nts SARS-CoV-2 INTERPRETATION (t est code = 90213) NEGATIVE SOURCE (test code = 15852) NOT SPECIFIED SARS-CoV-2 (COVID-19) by RT-PCR (HIGH RISK)2020-04-01 00:00:00* Test Item Value Reference Range Interpretation Comme nts SARS-CoV-2 INTERPRETATION (t est code = 48171) NEGATIVE SOURCE (test code = 05150) NOT SPECIFIED Óscar Rose AustinPAP TEST, THINPREP, [id number] 00:00:00* Test Item Value Reference Range Interpretation Comme nts SOURCE: (test code = 8001) Cervical/Endocervical SLIDES: (test code = 8011) 1 LMP: (test code = 8021) MIRENA SPECIMEN ADEQUACY: (test code = 15424) (NOTE) INTERPRETATION: (test code = 13434) NILM/NO EPITH. ABNORMALITY;SEE BELOW OTHER COMMENTS: (test code = 8081) (NOTE) INDUSTRIAL TRAINING SPECIALIST: (test code = 8101) BETTY Cline(ASCP)IAC QC TECHNOLOGIST: (test code = 8111) Ney BullardSCT(ASCP),IAC LOCATION: (test code = 30040) (NOTE) CPT: (test code = 8140) (NOTE) PAP TEST, THINPREP, [id number] 00:00:00* Test Item Value Reference Range Interpretation Comme nts SOURCE: (test code = 8001) Cervical/Endocervical SLIDES: (test code = 8011) 1 LMP: (test code = 8021) MIRENA SPECIMEN ADEQUACY: (test code = 38842) (NOTE) INTERPRETATION: (test code = 19085) NILM/NO EPITH. ABNORMALITY;SEE BELOW OTHER COMMENTS: (test code = 8081) (NOTE) INDUSTRIAL TRAINING SPECIALIST: (test code = 8101) BETTY Cline(ASCP)IAC QC TECHNOLOGIST: (test code = 8111) BOYD Gabriel(ASCP),IAC LOCATION: (test code = 48307) (NOTE) CPT: (test code = 8140) (NOTE) PAP TEST, THINPREP, [id number] 00:00:00* Test Item Value Reference Range Interpretation Comme nts SOURCE: (test code = 8001) Cervical/Endocervical SLIDES: (test code = 8011) 1 LMP: (test code = 8021) MIRENA SPECIMEN ADEQUACY: (test code = 87619) (NOTE) INTERPRETATION: (test code = 56332) NILM/NO EPITH. ABNORMALITY;SEE BELOW OTHER COMMENTS: (test code = 8081) (NOTE) INDUSTRIAL TRAINING SPECIALIST: (test code = 8101) BETTY Cline(ASCP)IAC QC TECHNOLOGIST: (test code = 8111) BOYD Gabriel(ASCP),IAC LOCATION: (test code = 05714) (NOTE) CPT: (test code = 8140) (NOTE) PAP TEST, THINPREP, [id number] 00:00:00* Test Item Value Reference Range Interpretation Comme nts SOURCE: (test code = 8001) Cervical/Endocervical SLIDES: (test code = 8011) 1 LMP: (test code = 8021) MIRENA SPECIMEN ADEQUACY: (test code = 86504) (NOTE) INTERPRETATION: (test code = 33642) NILM/NO EPITH. ABNORMALITY;SEE BELOW OTHER COMMENTS: (test code = 8081) (NOTE) INDUSTRIAL TRAINING SPECIALIST: (test code = 8101) BETTY Cline(ASCP)IAC QC TECHNOLOGIST: (test code = 8111) BOYD Gabriel(ASCP),IAC LOCATION: (test code = 61686) (NOTE) CPT: (test code = 8140) (NOTE) PAP TEST, THINPREP, [id number] 00:00:00* Test Item Value Reference Range Interpretation Comme nts SOURCE: (test code = 8001) Cervical/Endocervical SLIDES: (test code = 8011) 1 LMP: (test code = 8021) MIRENA SPECIMEN ADEQUACY: (test code = 06521) (NOTE) INTERPRETATION: (test code = 98707) NILM/NO EPITH. ABNORMALITY;SEE BELOW OTHER COMMENTS: (test code = 8081) (NOTE) INDUSTRIAL TRAINING SPECIALIST: (test code = 8101) Katya Branch,CT(ASCP)IAC QC TECHNOLOGIST: (test code = 8111) Ney Bullard,SCT(ASCP),IAC LOCATION: (test code = 26766) (NOTE) CPT: (test code = 8140) (NOTE) Óscar Rose AustinHPV HIGH RISK WITH GENOTYPE, [id number] 00:00:00* Test Item Value Reference Range Interpretation Comme nts HPV HIGH RISK INTERP (test c ode = 79481) NEGATIVE HPV 16 (test code = 48211) NEGATIVE HPV 18 (test code = 47396) NEGATIVE HPV, HR, OTHER GENOTYPES (te st code = 40521) NEGATIVE HPV HIGH RISK WITH GENOTYPE, [id number] 00:00:00* Test Item Value Reference Range Interpretation Comme nts HPV HIGH RISK INTERP (test c ode = 04720) NEGATIVE HPV 16 (test code = 17856) NEGATIVE HPV 18 (test code = 03131) NEGATIVE HPV, HR, OTHER GENOTYPES (te st code = 19999) NEGATIVE HPV HIGH RISK WITH GENOTYPE, [id number] 00:00:00* Test Item Value Reference Range Interpretation Comme nts HPV HIGH RISK INTERP (test c ode = 36903) NEGATIVE HPV 16 (test code = 77653) NEGATIVE HPV 18 (test code = 07910) NEGATIVE HPV, HR, OTHER GENOTYPES (te st code = 32619) NEGATIVE HPV HIGH RISK WITH GENOTYPE, [id number] 00:00:00* Test Item Value Reference Range Interpretation Comme nts HPV HIGH RISK INTERP (test c ode = 52541) NEGATIVE HPV 16 (test code = 26255) NEGATIVE HPV 18 (test code = 80035) NEGATIVE HPV, HR, OTHER GENOTYPES (te st code = 03574) NEGATIVE HPV HIGH RISK WITH GENOTYPE, [id number] 00:00:00* Test Item Value Reference Range Interpretation Comme nts HPV HIGH RISK INTERP (test c ode = 96844) NEGATIVE HPV 16 (test code = 56224) NEGATIVE HPV 18 (test code = 46695) NEGATIVE HPV, HR, OTHER GENOTYPES (te st code = 82977) NEGATIVE Óscar F AustinGC AND CHLAMYDIA AMPLIFIED, [id number] 00:00:00* Test Item Value Reference Range Interpretation Comme nts GONORRHEA, TMA (test code = 92735) NEGATIVE CHLAMYDIA, TMA (test code = 95259) NEGATIVE GC AND CHLAMYDIA AMPLIFIED, [id number] 00:00:00* Test Item Value Reference Range Interpretation Comme nts GONORRHEA, TMA (test code = 82873) NEGATIVE CHLAMYDIA, TMA (test code = 89182) NEGATIVE GC AND CHLAMYDIA AMPLIFIED, [id number] 00:00:00* Test Item Value Reference Range Interpretation Comme nts GONORRHEA, TMA (test code = 09495) NEGATIVE CHLAMYDIA, TMA (test code = 94199) NEGATIVE GC AND CHLAMYDIA AMPLIFIED, [id number] 00:00:00* Test Item Value Reference Range Interpretation Comme nts GONORRHEA, TMA (test code = 10979) NEGATIVE CHLAMYDIA, TMA (test code = 50017) NEGATIVE GC AND CHLAMYDIA AMPLIFIED, [id number] 00:00:00* Test Item Value Reference Range Interpretation Comme nts GONORRHEA, TMA (test code = 18956) NEGATIVE CHLAMYDIA, TMA (test code = 10869) NEGATIVE Óscar F AustinHEMOGLOBIN [id number] 00:00:00* Test Item Value Reference Range Interpretation Comme nts HEMOGLOBIN A1c (test code = 92819) 11.9 % HEMOGLOBIN [id number] 00:00:00* Test Item Value Reference Range Interpretation Comme nts HEMOGLOBIN A1c (test code = 35869) 11.9 % HEMOGLOBIN [id number] 00:00:00* Test Item Value Reference Range Interpretation Comme nts HEMOGLOBIN A1c (test code = 86305) 11.9 % HEMOGLOBIN [id number] 00:00:00* Test Item Value Reference Range Interpretation Comme nts HEMOGLOBIN A1c (test code = 05774) 11.9 % HEMOGLOBIN [id number] 00:00:00* Test Item Value Reference Range Interpretation Comme nts HEMOGLOBIN A1c (test code = 19963) 11.9 % Óscar ZavalaCOMPREHENSIVE METABOLIC [id number] 00:00:00* Test Item Value Reference Range Interpretation Comme nts GLUCOSE (test code = 2217) 202 MG/DL BUN (test code = 2208) 9 MG/DL CREATININE (test code = 2214) 0.50 MG/DL eGFR AMER. (test cod e = 44266) 135 ML/MIN/1.73 eGFR NON- AMER. (test code = 20323) 116 ML/MIN/1.73 CALC BUN/CREAT (test code = [...] code = 2219) 20 U/L COMPREHENSIVE METABOLIC [id number] 00:00:00* Test Item Value Reference Range Interpretation Comme nts GLUCOSE (test code = 2217) 202 MG/DL BUN (test code = 2208) 9 MG/DL CREATININE (test code = 2214) 0.50 MG/DL eGFR AMER. (test cod e = 30083) 135 ML/MIN/1.73 eGFR NON- AMER. (test code = 20698) 116 ML/MIN/1.73 CALC BUN/CREAT (test code = [...] code = 2219) 20 U/L COMPREHENSIVE METABOLIC [id number] 00:00:00* Test Item Value Reference Range Interpretation Comme nts GLUCOSE (test code = 2217) 202 MG/DL BUN (test code = 2208) 9 MG/DL CREATININE (test code = 2214) 0.50 MG/DL eGFR AMER. (test cod e = 31852) 135 ML/MIN/1.73 eGFR NON- AMER. (test code = 23616) 116 ML/MIN/1.73 CALC BUN/CREAT (test code = [...] code = 2219) 20 U/L COMPREHENSIVE METABOLIC [id number] 00:00:00* Test Item Value Reference Range Interpretation Comme nts GLUCOSE (test code = 2217) 202 MG/DL BUN (test code = 2208) 9 MG/DL CREATININE (test code = 2214) 0.50 MG/DL eGFR AMER. (test cod e = 07103) 135 ML/MIN/1.73 eGFR NON- AMER. (test code = 28367) 116 ML/MIN/1.73 CALC BUN/CREAT (test code = [...] code = 2219) 20 U/L COMPREHENSIVE METABOLIC [id number] 00:00:00* Test Item Value Reference Range Interpretation Comme nts GLUCOSE (test code = 2217) 202 MG/DL BUN (test code = 2208) 9 MG/DL CREATININE (test code = 2214) 0.50 MG/DL eGFR AMER. (test cod e = 63206) 135 ML/MIN/1.73 eGFR NON- AMER. (test code = 62369) 116 ML/MIN/1.73 CALC BUN/CREAT (test code = [...] ALT (test code = 2219) 20 U/L Óscar ZavalaHEMOGLOBIN [id number] 00:00:00* Test Item Value Reference Range Interpretation Comme nts HEMOGLOBIN A1c (test code = 88720) 11.2 % HEMOGLOBIN [id number] 00:00:00* Test Item Value Reference Range Interpretation Comme nts HEMOGLOBIN A1c (test code = 03120) 11.2 % HEMOGLOBIN [id number] 00:00:00* Test Item Value Reference Range Interpretation Comme nts HEMOGLOBIN A1c (test code = 75223) 11.2 % HEMOGLOBIN [id number] 00:00:00* Test Item Value Reference Range Interpretation Comme nts HEMOGLOBIN A1c (test code = 64261) 11.2 % HEMOGLOBIN [id number] 00:00:00* Test Item Value Reference Range Interpretation Comme nts HEMOGLOBIN A1c (test code = 89601) 11.2 % Óscar ZavalaPAP TEST, THINPREP, [id number] 00:00:00* Test Item Value Reference Range Interpretation Comme nts SOURCE: (test code = 8001) Cervical/Endocervical SLIDES: (test code = 8011) 1 LMP: (test code = 8021) SPECIMEN ADEQUACY: (test code = 25660) (NOTE) INTERPRETATION: (test code = 30933) NO EPITHELIAL ABNORMALITY SEE BELOW OTHER COMMENTS: (test code = 8081) (NOTE) INDUSTRIAL TRAINING SPECIALIST: (test code = 8101) Shell Castaneda, CT(ASCP)IAC QC TECHNOLOGIST: (test code = 8111) Ney BullardSCT(ASCP),IAC LOCATION: (test code = 52925) (NOTE) CPT: (test code = 8140) (NOTE) PAP TEST, THINPREP, [id number] 00:00:00* Test Item Value Reference Range Interpretation Comme nts SOURCE: (test code = 8001) Cervical/Endocervical SLIDES: (test code = 8011) 1 LMP: (test code = 8021) SPECIMEN ADEQUACY: (test code = 37140) (NOTE) INTERPRETATION: (test code = 32603) NO EPITHELIAL ABNORMALITY SEE BELOW OTHER COMMENTS: (test code = 8081) (NOTE) INDUSTRIAL TRAINING SPECIALIST: (test code = 8101) BETTY Wilson(ASCP)IAC QC TECHNOLOGIST: (test code = 8111) BOYD Gabriel(ASCP),IAC LOCATION: (test code = 38054) (NOTE) CPT: (test code = 8140) (NOTE) PAP TEST, THINPREP, [id number] 00:00:00* Test Item Value Reference Range Interpretation Comme nts SOURCE: (test code = 8001) Cervical/Endocervical SLIDES: (test code = 8011) 1 LMP: (test code = 8021) SPECIMEN ADEQUACY: (test code = 82080) (NOTE) INTERPRETATION: (test code = 36183) NO EPITHELIAL ABNORMALITY SEE BELOW OTHER COMMENTS: (test code = 8081) (NOTE) INDUSTRIAL TRAINING SPECIALIST: (test code = 8101) BETTY Wilson(ASCP)IAC QC TECHNOLOGIST: (test code = 8111) BOYD Gabriel(ASCP),IAC LOCATION: (test code = 32383) (NOTE) CPT: (test code = 8140) (NOTE) PAP TEST, THINPREP, [id number] 00:00:00* Test Item Value Reference Range Interpretation Comme nts SOURCE: (test code = 8001) Cervical/Endocervical SLIDES: (test code = 8011) 1 LMP: (test code = 8021) SPECIMEN ADEQUACY: (test code = 11605) (NOTE) INTERPRETATION: (test code = 33392) NO EPITHELIAL ABNORMALITY SEE BELOW OTHER COMMENTS: (test code = 8081) (NOTE) INDUSTRIAL TRAINING SPECIALIST: (test code = 8101) BETTY Wilson(ASCP)IAC QC TECHNOLOGIST: (test code = 8111) BOYD Gabriel(ASCP),IAC LOCATION: (test code = 35207) (NOTE) CPT: (test code = 8140) (NOTE) PAP TEST, THINPREP, [id number] 00:00:00* Test Item Value Reference Range Interpretation Comme nts SOURCE: (test code = 8001) Cervical/Endocervical SLIDES: (test code = 8011) 1 LMP: (test code = 8021) SPECIMEN ADEQUACY: (test code = 65280) (NOTE) INTERPRETATION: (test code = 13503) NO EPITHELIAL ABNORMALITY SEE BELOW OTHER COMMENTS: (test code = 8081) (NOTE) INDUSTRIAL TRAINING SPECIALIST: (test code = 8101) Shell Castaneda, CT(ASCP)IAC QC TECHNOLOGIST: (test code = 8111) Ney Bullard,SCT(ASCP),IAC LOCATION: (test code = 20839) (NOTE) CPT: (test code = 8140) (NOTE) Óscar F AustinHPV HIGH RISK WITH GENOTYPE, [id number] 00:00:00* Test Item Value Reference Range Interpretation Comme nts HPV HIGH RISK INTERP (test c ode = 74987) POSITIVE HPV 16 (test code = 26484) NEGATIVE HPV 18 (test code = 53881) NEGATIVE HPV, HR, OTHER GENOTYPES (te st code = 07163) POSITIVE HPV HIGH RISK WITH GENOTYPE, [id number] 00:00:00* Test Item Value Reference Range Interpretation Comme nts HPV HIGH RISK INTERP (test c ode = 38434) POSITIVE HPV 16 (test code = 97735) NEGATIVE HPV 18 (test code = 56942) NEGATIVE HPV, HR, OTHER GENOTYPES (te st code = 43258) POSITIVE HPV HIGH RISK WITH GENOTYPE, [id number] 00:00:00* Test Item Value Reference Range Interpretation Comme nts HPV HIGH RISK INTERP (test c ode = 39218) POSITIVE HPV 16 (test code = 57843) NEGATIVE HPV 18 (test code = 33621) NEGATIVE HPV, HR, OTHER GENOTYPES (te st code = 45388) POSITIVE HPV HIGH RISK WITH GENOTYPE, [id number] 00:00:00* Test Item Value Reference Range Interpretation Comme nts HPV HIGH RISK INTERP (test c ode = 70645) POSITIVE HPV 16 (test code = 97237) NEGATIVE HPV 18 (test code = 84572) NEGATIVE HPV, HR, OTHER GENOTYPES (te st code = 38974) POSITIVE HPV HIGH RISK WITH GENOTYPE, [id number] 00:00:00* Test Item Value Reference Range Interpretation Comme nts HPV HIGH RISK INTERP (test c ode = 03120) POSITIVE HPV 16 (test code = 26761) NEGATIVE HPV 18 (test code = 15486) NEGATIVE HPV, HR, OTHER GENOTYPES (te st code = 52095) POSITIVE Óscar Rose AustinLIPID [id number] 00:00:00* Test Item Value Reference Range Interpretation Comme nts CHOLESTEROL (test code = 2210) 167 MG/DL TRIGLYCERIDES (test code = 2232) 118 MG/DL HDL CHOLESTEROL (test code = 2220) 57 MG/DL CALC LDL CHOL (test code = 2237) 86 MG/DL RISK RATIO LDL/HDL (test cod e = 2238) 1.52 RATIO CBC W/AUTO [id number] 00:00:00* Test Item Value Reference Range Interpretation [...] (test code = 1015) 360 K/UL HEMOGLOBIN [id number] 00:00:00* Test Item Value Reference Range Interpretation Comme nts HEMOGLOBIN A1c (test code = 19412) 9.5 % THYROID II PROFILE (T3U, T4, T7, TSH)2016-04-13 00:00:00* Test Item Value Reference Range Interpretation Comme nts T3 UPTAKE (test code = 2817) 27.5 % T4 (THYROXINE) (test code = 2819) 8.7 UG/DL CALCULATED T7 (FTI) (test co de = 2820) 2.39 TSH (test code = 2821) 2.3 UIU/ML COMPREHENSIVE METABOLIC [id number] 00:00:00* Test Item Value Reference Range Interpretation Comme nts GLUCOSE (test code = 2217) 252 MG/DL BUN (test code = 2208) 13 MG/DL CREATININE (test code = 2214) 0.57 MG/DL eGFR AMER. (test cod e = 69432) 131 ML/MIN/1.73 eGFR NON- AMER. (test code = 25322) 113 ML/MIN/1.73 CALC BUN/CREAT (test code = [...] (test code = 2219) 16 U/L LIPID [id number] 00:00:00* Test Item Value Reference Range Interpretation Comme nts CHOLESTEROL (test code = 2210) 167 MG/DL TRIGLYCERIDES (test code = 2232) 118 MG/DL HDL CHOLESTEROL (test code = 2220) 57 MG/DL CALC LDL CHOL (test code = 2237) 86 MG/DL RISK RATIO LDL/HDL (test cod e = 223) 1.52 RATIO CBC W/AUTO [id number] 00:00:00* Test Item Value Reference Range Interpretation [...] (test code = 1015) 360 K/UL HEMOGLOBIN [id number] 00:00:00* Test Item Value Reference Range Interpretation Comme nts HEMOGLOBIN A1c (test code = 04011) 9.5 % THYROID II PROFILE (T3U, T4, T7, TSH)2016-04-13 00:00:00* Test Item Value Reference Range Interpretation Comme nts T3 UPTAKE (test code = 2817) 27.5 % T4 (THYROXINE) (test code = 2819) 8.7 UG/DL CALCULATED T7 (FTI) (test co de = 2820) 2.39 TSH (test code = 2821) 2.3 UIU/ML COMPREHENSIVE METABOLIC [id number] 00:00:00* Test Item Value Reference Range Interpretation Comme nts GLUCOSE (test code = 2217) 252 MG/DL BUN (test code = 2208) 13 MG/DL CREATININE (test code = 2214) 0.57 MG/DL eGFR AMER. (test cod e = 30601) 131 ML/MIN/1.73 eGFR NON- AMER. (test code = 40947) 113 ML/MIN/1.73 CALC BUN/CREAT (test code = [...] (test code = 2219) 16 U/L LIPID [id number] 00:00:00* Test Item Value Reference Range Interpretation Comme nts CHOLESTEROL (test code = 2210) 167 MG/DL TRIGLYCERIDES (test code = 2232) 118 MG/DL HDL CHOLESTEROL (test code = 2220) 57 MG/DL CALC LDL CHOL (test code = 2237) 86 MG/DL RISK RATIO LDL/HDL (test cod e = 2238) 1.52 RATIO CBC W/AUTO [id number] 00:00:00* Test Item Value Reference Range Interpretation [...] (test code = 1015) 360 K/UL HEMOGLOBIN [id number] 00:00:00* Test Item Value Reference Range Interpretation Comme nts HEMOGLOBIN A1c (test code = 35665) 9.5 % THYROID II PROFILE (T3U, T4, T7, TSH)2016-04-13 00:00:00* Test Item Value Reference Range Interpretation Comme nts T3 UPTAKE (test code = 2817) 27.5 % T4 (THYROXINE) (test code = 2819) 8.7 UG/DL CALCULATED T7 (FTI) (test co de = 2820) 2.39 TSH (test code = 2821) 2.3 UIU/ML COMPREHENSIVE METABOLIC [id number] 00:00:00* Test Item Value Reference Range Interpretation Comme nts GLUCOSE (test code = 2217) 252 MG/DL BUN (test code = 2208) 13 MG/DL CREATININE (test code = 2214) 0.57 MG/DL eGFR AMER. (test cod e = 85957) 131 ML/MIN/1.73 eGFR NON- AMER. (test code = 04965) 113 ML/MIN/1.73 CALC BUN/CREAT (test code = [...] (test code = 2219) 16 U/L LIPID [id number] 00:00:00* Test Item Value Reference Range Interpretation Comme nts CHOLESTEROL (test code = 2210) 167 MG/DL TRIGLYCERIDES (test code = 2232) 118 MG/DL HDL CHOLESTEROL (test code = 2220) 57 MG/DL CALC LDL CHOL (test code = 2237) 86 MG/DL RISK RATIO LDL/HDL (test cod e = 2238) 1.52 RATIO CBC W/AUTO [id number] 00:00:00* Test Item Value Reference Range Interpretation [...] (test code = 1015) 360 K/UL HEMOGLOBIN [id number] 00:00:00* Test Item Value Reference Range Interpretation Comme nts HEMOGLOBIN A1c (test code = 62023) 9.5 % THYROID II PROFILE (T3U, T4, T7, TSH)2016-04-13 00:00:00* Test Item Value Reference Range Interpretation Comme nts T3 UPTAKE (test code = 2817) 27.5 % T4 (THYROXINE) (test code = 2819) 8.7 UG/DL CALCULATED T7 (FTI) (test co de = 2820) 2.39 TSH (test code = 2821) 2.3 UIU/ML COMPREHENSIVE METABOLIC [id number] 00:00:00* Test Item Value Reference Range Interpretation Comme nts GLUCOSE (test code = 2217) 252 MG/DL BUN (test code = 2208) 13 MG/DL CREATININE (test code = 2214) 0.57 MG/DL eGFR AMER. (test cod e = 31769) 131 ML/MIN/1.73 eGFR NON- AMER. (test code = 53234) 113 ML/MIN/1.73 CALC BUN/CREAT (test code = [...] code = 2219) 16 U/L COMPREHENSIVE METABOLIC [id number] 00:00:00* Test Item Value Reference Range Interpretation Comme nts GLUCOSE (test code = 2217) 252 MG/DL BUN (test code = 2208) 13 MG/DL CREATININE (test code = 2214) 0.57 MG/DL eGFR AMER. (test cod e = 00810) 131 ML/MIN/1.73 eGFR NON- AMER. (test code = 00595) 113 ML/MIN/1.73 CALC BUN/CREAT (test code = [...] ALT (test code = 2219) 16 U/L Óscar ZavalaLIPID [id number] 00:00:00* Test Item Value Reference Range Interpretation Comme nts CHOLESTEROL (test code = 2210) 167 MG/DL TRIGLYCERIDES (test code = 2232) 118 MG/DL HDL CHOLESTEROL (test code = 2220) 57 MG/DL CALC LDL CHOL (test code = 2237) 86 MG/DL RISK RATIO LDL/HDL (test cod e = 2238) 1.52 RATIO Óscar ZavalaCBC W/AUTO [id number] 00:00:00* Test Item Value Reference Range Interpretation [...] EOSINOPHILS (test code = 1012) 2 % PLATELET COUNT (test code = 1015) 360 K/UL Óscar ZavalaHEMOGLOBIN [id number] 00:00:00* Test Item Value Reference Range Interpretation Comme nts HEMOGLOBIN A1c (test code = 86041) 9.5 % Óscar Rose AustinTHYROID II PROFILE (T3U, T4, T7, TSH)2016-04-13 00:00:00* Test Item Value Reference Range Interpretation Comme nts T3 UPTAKE (test code = 2817) 27.5 % T4 (THYROXINE) (test code = 2819) 8.7 UG/DL CALCULATED T7 (FTI) (test co de = 2820) 2.39 TSH (test code = 2821) 2.3 UIU/ML Óscar Rose AustinTHYROID II PROFILE (T3U, T4, T7, TSH)2015-12-16 00:00:00* Test Item Value Reference Range Interpretation Comme nts T3 UPTAKE (test code = 2817) 27.2 % T4 (THYROXINE) (test code = 2819) 8.9 UG/DL CALCULATED T7 (FTI) (test co de = 2820) 2.42 TSH (test code = 2821) 1.3 UIU/ML LIPID [id number] 00:00:00* Test Item Value Reference Range Interpretation Comme nts CHOLESTEROL (test code = 2210) 167 MG/DL TRIGLYCERIDES (test code = 2232) 113 MG/DL HDL CHOLESTEROL (test code = 2220) 53 MG/DL CALCULATED LDL CHOL (test co de = 2237) 91 MG/DL RISK RATIO LDL/HDL (test cod e = 2238) 1.72 RATIO COMPREHENSIVE METABOLIC [id number] 00:00:00* Test Item Value Reference Range Interpretation Comme nts GLUCOSE (test code = 2217) 195 MG/DL BUN (test code = 2208) 14 MG/DL CREATININE (test code = 2214) 0.55 MG/DL eGFR AMER. (test cod e = 61260) 132 ML/MIN/1.73 eGFR NON- AMER. (test code = 77573) 114 ML/MIN/1.73 CALCULATED BUN/CREAT (test code = [...] (test code = 2219) 21 U/L HEMOGLOBIN [id number] 00:00:00* Test Item Value Reference Range Interpretation Comme nts HEMOGLOBIN A1c (test code = 43362) 9.9 % CBC W/AUTO [id number] 00:00:00* Test Item Value Reference Range Interpretation [...] (test code = 2821) 1.3 UIU/ML LIPID [id number] 00:00:00* Test Item Value Reference Range Interpretation Comme nts CHOLESTEROL (test code = 2210) 167 MG/DL TRIGLYCERIDES (test code = 2232) 113 MG/DL HDL CHOLESTEROL (test code = 2220) 53 MG/DL CALCULATED LDL CHOL (test co de = 2237) 91 MG/DL RISK RATIO LDL/HDL (test cod e = 2238) 1.72 RATIO COMPREHENSIVE METABOLIC [id number] 00:00:00* Test Item Value Reference Range Interpretation Comme nts GLUCOSE (test code = 2217) 195 MG/DL BUN (test code = 2208) 14 MG/DL CREATININE (test code = 2214) 0.55 MG/DL eGFR AMER. (test cod e = 17641) 132 ML/MIN/1.73 eGFR NON- AMER. (test code = 87990) 114 ML/MIN/1.73 CALCULATED BUN/CREAT (test code = [...] (test code = 2219) 21 U/L HEMOGLOBIN [id number] 00:00:00* Test Item Value Reference Range Interpretation Comme nts HEMOGLOBIN A1c (test code = 65591) 9.9 % CBC W/AUTO [id number] 00:00:00* Test Item Value Reference Range Interpretation [...] (test code = 2821) 1.3 UIU/ML LIPID [id number] 00:00:00* Test Item Value Reference Range Interpretation Comme nts CHOLESTEROL (test code = 2210) 167 MG/DL TRIGLYCERIDES (test code = 2232) 113 MG/DL HDL CHOLESTEROL (test code = 2220) 53 MG/DL CALCULATED LDL CHOL (test co de = 2237) 91 MG/DL RISK RATIO LDL/HDL (test cod e = 2238) 1.72 RATIO COMPREHENSIVE METABOLIC [id number] 00:00:00* Test Item Value Reference Range Interpretation Comme nts GLUCOSE (test code = 2217) 195 MG/DL BUN (test code = 2208) 14 MG/DL CREATININE (test code = 2214) 0.55 MG/DL eGFR AMER. (test cod e = 25781) 132 ML/MIN/1.73 eGFR NON- AMER. (test code = 23015) 114 ML/MIN/1.73 CALCULATED BUN/CREAT (test code = [...] (test code = 2219) 21 U/L HEMOGLOBIN [id number] 00:00:00* Test Item Value Reference Range Interpretation Comme nts HEMOGLOBIN A1c (test code = 84240) 9.9 % CBC W/AUTO [id number] 00:00:00* Test Item Value Reference Range Interpretation [...] (test code = 2821) 1.3 UIU/ML LIPID [id number] 00:00:00* Test Item Value Reference Range Interpretation Comme nts CHOLESTEROL (test code = 2210) 167 MG/DL TRIGLYCERIDES (test code = 2232) 113 MG/DL HDL CHOLESTEROL (test code = 2220) 53 MG/DL CALCULATED LDL CHOL (test co de = 2237) 91 MG/DL RISK RATIO LDL/HDL (test cod e = 2238) 1.72 RATIO COMPREHENSIVE METABOLIC [id number] 00:00:00* Test Item Value Reference Range Interpretation Comme nts GLUCOSE (test code = 2217) 195 MG/DL BUN (test code = 2208) 14 MG/DL CREATININE (test code = 2214) 0.55 MG/DL eGFR AMER. (test cod e = ) 132 ML/MIN/1.73 eGFR NON- AMER. (test code = 43876) 114 ML/MIN/1.73 CALCULATED BUN/CREAT (test code = 2235) 25 RATIO SODIUM (test code = 2231) 137 MEQ/L POTASSIUM (test code = 2228) 4.5 MEQ/L CHLORIDE (test code = 2215) 100 MEQ/L CARBON DIOXIDE (test code = 2206) 28 MEQ/L CALCIUM (test code = 2209) 9.6 MG/DL PROTEIN, TOTAL (test code = 222) 7.4 G/DL ALBUMIN (test code = 2201) 4.0 G/DL CALCULATED GLOBULIN (test code = 2240) 3.4 G/DL CALCULATED A/G RATIO (test code = 2234) 1.2 RATIO BILIRUBIN, TOTAL (test code = 2207) 0.8 MG/DL ALKALINE PHOSPHATASE (test code = 2204) 57 U/L SGOT (AST) (test code = 2218) 19 U/L SGPT (ALT) (test code = 2219) 21 U/L HEMOGLOBIN [id number] 00:00:00* Test Item Value Reference Range Interpretation Comme nts HEMOGLOBIN A1c (test code = 83071) 9.9 % CBC W/AUTO [id number] 00:00:00* Test Item Value Reference Range Interpretation [...] code = 1015) 352 K/UL CBC W/AUTO [id number] 00:00:00* Test Item Value Reference Range Interpretation [...] COUNT (test code = 1015) 352 K/UL Óscar ZavalaTHYROID II PROFILE (T3U, T4, T7, TSH)2015-12-16 00:00:00* Test Item Value Reference Range Interpretation Comme nts T3 UPTAKE (test code = 2817) 27.2 % T4 (THYROXINE) (test code = 2819) 8.9 UG/DL CALCULATED T7 (FTI) (test co de = 2820) 2.42 TSH (test code = 2821) 1.3 UIU/ML Óscar ZavalaLIPID [id number] 00:00:00* Test Item Value Reference Range Interpretation Comme nts CHOLESTEROL (test code = 2210) 167 MG/DL TRIGLYCERIDES (test code = 2232) 113 MG/DL HDL CHOLESTEROL (test code = 2220) 53 MG/DL CALCULATED LDL CHOL (test co de = 2237) 91 MG/DL RISK RATIO LDL/HDL (test cod e = 2238) 1.72 RATIO Óscar ZavalaCOMPREHENSIVE METABOLIC [id number] 00:00:00* Test Item Value Reference Range Interpretation Comme nts GLUCOSE (test code = 2217) 195 MG/DL BUN (test code = 2208) 14 MG/DL CREATININE (test code = 2214) 0.55 MG/DL eGFR AMER. (test cod e = 53916) 132 ML/MIN/1.73 eGFR NON- AMER. (test code = 14732) 114 ML/MIN/1.73 CALCULATED BUN/CREAT (test code = [...] (ALT) (test code = 2219) 21 U/L Óscar ZavalaHEMOGLOBIN [id number] 00:00:00* Test Item Value Reference Range Interpretation Comme nts HEMOGLOBIN A1c (test code = 76005) 9.9 % Óscar Zavala Notes Date/Time Note Provider Source Óscar Zavala [facility]
[2024-07-27 18:53] LABS: SARS-CoV-2 Antigen CONTROL BLUE LINE VIS/BG OK; SARS-CoV-2 Antigen Rapid Res Negative (Negative)
--- NOTE | 2024-07-27 18:53 | RAD REPORT ---
EXAM:Extremity Venous Uni Ltd HISTORY: Leg pain TECHNIQUE: Sonographic evaluation left lower extremity performed.Grayscale, color and spectral analys is performed on all vessels COMPARISON: None. FINDINGS: The left common femoral, superficial femoral, greater saphenous, popliteal and posterior tibial veins are compressible and demonstrate augmentation. Doppler demonstrates good flow. IMPRESSION: No evidence of deep venous thrombosis involving the left lower extremity.
--- NOTE | 2024-07-27 19:30 | ER ---
Nurse's Notes [facility] Name: Tova Ames Age: 54 yrs Sex: Female : 1970 Arrival Date: 07/27/2024 Time: 17: Bed 12 Private MD: Diagnosis: Viral infection, unspecified Presentation: 07/27 17:41 Chief complaint: Patient states: Started to have joint pains and HERNANDEZ last night. Still ll1 achy, weak, fatigued, fever, HERNANDEZ still today. Coronavirus screen: Client denies travel out of the [place] in the last 14 days. cough unrelated to allergies, fatigue, fever, headache, muscle pain, Client presents with at least one sign or symptom that may indicate coronavirus-19. Standard/surgical mask placed on the client. Ebola Screen: Patient denies travel to an Ebola-affected area in the 21 days before illness onset. Initial Sepsis Screen: Does the patient meet any 2 criteria? No. Patient's initial sepsis screen is negative. Does the patient have a suspected source of infection? No. Patient's initial sepsis screen is negative. Risk Assessment: Do you want to hurt yourself or someone else? Patient reports no desire to harm self or others. Onset of symptoms was July 26, 2024. 17:41 Method Of Arrival: Ambulatory 1 17:41 Acuity: JACKIE 3 ll1 Triage Assessment: 17:43 General: Appears uncomfortable, ill, Behavior is calm, cooperative, appropriate for ll1 age. General: Reports fever for feeling ill for fatigue for. Pain: Complains of pain in joints Quality of pain is described as aching. Neuro: Reports headache weakness. Respiratory: Reports cough that is. Musculoskeletal: Reports joint pain and generalized weakness. Historical: - Allergies: 17:36 Aspirin; ll1 17:36 Ibuprofen; ll1 17:36 Influenza Virus Vaccines; ll1 17:36 PENICILLINS; ll1 - PMHx: 17:36 diabetes mellitus; Left knee torn ACL (Unknown); Nerve damage; sciatica (Unknown); ll1 - PSHx: 17:36 D\T\C; leg; ll1 - Immunization history:: Adult Immunizations up to date. - Infectious Disease History:: Denies. - Social history:: Smoking status: Patient denies any tobacco usage or history of. Screenin:30 [facility] ED Fall Risk Assessment (Adult) History of falling in the last 3 months, ar6 including since admission No falls in past 3 months (0 pts) Confusion or Disorientation No (0 pts) Intoxicated or Sedated No (0 pts) Impaired Gait No (0 pts) Mobility Assist Device Used No (0 pt) Altered Elimination No (0 pt) Score/Fall Risk Level 0 - 2 = Low Risk Oriented to surroundings, Maintained a safe environment, Educated pt \T\ family on fall prevention, incl call for assistance when getting out of bed, Hourly rounding (assess needs \T\ fall precautionary measures) done. Abuse screen: Denies threats or abuse. Denies injuries from another. Nutritional screening: No deficits noted. Tuberculosis screening: No symptoms or risk factors identified. Assessment: 18:30 General: Appears in no apparent distress. uncomfortable, Behavior is calm, cooperative, ar6 appropriate for age. Pain: Denies pain. Pain currently is 9 out of 10 on a pain scale. Quality of pain is described as pressure, Pain began 4 hours ago. Pain: Complains of pain in face. Neuro: Level of Consciousness is awake, alert, obeys commands. Cardiovascular: Capillary refill < 3 seconds. Respiratory: Airway is patent. GI: Abdomen is round non-distended. : No signs and/or symptoms were reported regarding the genitourinary system. EENT: Oral mucosa is moist. Derm: Skin is intact, is healthy with good turgor, Skin is dry, Skin is pink, warm \T\ dry. Musculoskeletal: No signs and/or symptoms reported regarding the musculoskeletal system. Vital Signs: 17:41 BP 156 / 91; Pulse 116; Resp 18; Temp 98.4; Pulse Ox 98% ; Weight 77.11 kg; Height 5 ll1 ft. 2 in. ; Pain 9/10; 18:30 BP 134 / 76; Pulse 88; Resp 18; Pulse Ox 99% on R/A; ar6 19:45 BP 132 / 72; Pulse 84; Resp 18; Pulse Ox 99% on R/A; ar6 17:41 Body Mass Index 31.09 (77.11 kg, 157.48 cm) ll1 17:41 Pain Scale: Adult ll1 ED Course: 17:25 Patient arrived in ED. mg5 17:36 Arm band placed on. ll1 17:42 Triage completed. ll1 17:43 Radha Park FNP-C is [facility]. kb 17:43 Surya Zabala MD is Attending Physician. kb 17:51 Loren Dang, RN is Primary Nurse. ar6 18:26 Strep Sent. ar6 18:26 SARS-COV-2 Antigen Rapid Sent. ar6 18:26 Flu Sent. ar6 18:30 No apparent distress. ar6 18:30 Patient has correct armband on for positive identification. Bed in low position. Call ar6 light in reach. Side rails up X 1. Provided Education on: plan of care. Client placed on continuous cardiac and pulse oximetry monitoring. NIBP monitoring applied. Door closed. Lights dimmed. Moved to private room. Warm blanket given. 18:30 No provider procedures requiring assistance completed. ar6 18:33 US Extremity Venous Unilateral Ltd In Process Unspecified. EDMS 19:54 Patient did not have IV access during this emergency room visit. ar6 Administered Medications: No medications were administered Medication: 18:30 VIS not applicable for this client. ar6 Outcome: 19:29 Discharge ordered by . kb 19:53 Discharged to home ambulatory, ar6 19:53 Condition: good 19:53 Condition: pt. left prior to signing, after provided spoke with pt 19:54 Discharge instructions given to pt. left without signing ar6 19:55 Patient left the ED. ar6 Signatures: Dispatcher [employer] EDID Radha Park FNP-C FNP-Ckb Lewis, Lynsay, RN RN ll1 Jazmin Saldana [facility] Loren Dang, RN RN ar6
--- NOTE | 2024-07-27 19:30 | EDPHYS ---
Physician Documentation [facility] Name: Tova Ames Age: 54 yrs Sex: Female : 1970 Arrival Date: 07/27/2024 Time: 17:21 Bed 12 Private MD: ED Physician Surya Zabala HPI: 07/27 23:17 This 54 yrs old Female presents to ER via Ambulatory with complaints of Cant kb Move Well. 23:17 Patient is a 54-year-old female who presents for joint pain, body aches, headache, kb fatigue, mild cough and fever that started last night. Denies nausea, vomiting, diarrhea.. Historical: - Allergies: 17:36 Aspirin; ll1 17:36 Ibuprofen; ll1 17:36 Influenza Virus Vaccines; ll1 17:36 PENICILLINS; ll1 - PMHx: 17:36 diabetes mellitus; Left knee torn ACL (Unknown); Nerve damage; sciatica (Unknown); ll1 - PSHx: 17:36 D\T\C; leg; ll1 - Immunization history:: Adult Immunizations up to date. - Infectious Disease History:: Denies. - Social history:: Smoking status: Patient denies any tobacco usage or history of. ROS: 23:17 Constitutional: As per HPI kb Exam: 23:17 Constitutional: This is a well developed, well nourished patient who is awake, alert, kb and in no acute distress. Head/Face: Normocephalic, atraumatic. ENT: Moist Mucous membranes Cardiovascular: Regular rate Respiratory: Respirations even and unlabored. No increased work of breathing. Talking in full sentences Skin: Warm, dry with normal turgor. Normal color. MS/ Extremity: Pulses equal, no cyanosis. Neurovascular intact. Full, normal range of motion. Neuro: Awake and alert, GCS 15, oriented to person, place, time, and situation. Vital Signs: 17:41 BP 156 / 91; Pulse 116; Resp 18; Temp 98.4; Pulse Ox 98% ; Weight 77.11 kg; Height 5 ll1 ft. 2 in. ; Pain 9/10; 18:30 BP 134 / 76; Pulse 88; Resp 18; Pulse Ox 99% on R/A; ar6 19:45 BP 132 / 72; Pulse 84; Resp 18; Pulse Ox 99% on R/A; ar6 17:41 Body Mass Index 31.09 (77.11 kg, 157.48 cm) ll1 17:41 Pain Scale: Adult ll1 MDM: 17:43 Medical Screening Exam initiated kb 23:18 Differential diagnosis: flu, covid, strep, uri. Data reviewed: vital signs, nurses kb notes. I considered the following discharge prescriptions or medication management in the emergency department I discussed and recommended Over The Counter medications, Antibiotics: At this time antibiotics are not recommended. Counseling: I had a detailed discussion with the patient and/or guardian regarding the historical points, exam findings, and any diagnostic results supporting the discharge/admit diagnosis, lab results, the need for outpatient follow up, a family practitioner, to return to the emergency department if symptoms worsen or persist or if there are any questions or concerns that arise at home. 07/27 17:49 Order name: Flu; Complete Time: 18:54 kb 07/27 17:49 Order name: SARS-COV-2 Antigen Rapid; Complete Time: 18:54 kb 07/27 17:49 Order name: Strep; Complete Time: 18:54 kb 07/27 18:56 Order name: Throat Culture [facility] 07/27 17:49 Order name: US Extremity Venous Unilateral Ltd; Complete Time: 18:54 kb Administered Medications: No medications were administered Disposition Summary: 07/27/24 19:29 Discharge Ordered Notes: Location: Home kb Condition: Stable kb Diagnosis - Viral infection, unspecified kb Followup: kb - With: Emergency Department - When: As needed - Reason: Worsening of condition Followup: kb - With: Private Physician - When: 2 - 3 days - Reason: Recheck today's complaints, Continuance of care, Re-evaluation by your physician Discharge Instructions: - Discharge Summary Sheet kb - Viral Respiratory Infection, Dpyi-Do-Kuno kb - Viral Illness, Adult kb Forms: - Medication Reconciliation Form kb - Antibiotic Education kb - Prescription Opioid Use kb - Patient Portal Instructions kb - Leadership Thank You Letter kb Signatures: Dispatcher [employer] Radha Gama, ALICIA PUENTES-Darien Carrasco, RN RN ll1 Loren Dang RN RN ar6
[2024-07-28 01:33] VITALS: TEMP 98.4
[2024-07-28 01:34] VITALS: BP 134/76; O2SAT 99
== END 2024-07-27 19:55 | disposition home or self-care (01) ==
LOC: ER 17:21
DX: B34.9 Viral infection, unspecified (principal); Z11.52 Encounter for screening for COVID-19
CPT/HCPCS: 36415; 87070; 87081; 87804; 87811; 93971; 99283

== ENCOUNTER 2024-11-08 23:20 | Emergency (ER) | payer OTHER ==
--- OUTSIDE RECORDS SUMMARY | 2024-11-08 23:31 | XMS REPORT | Continuity of Care Document ---
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 [facility] benzonatate 100 mg capsule 10-30 00:00: 00 Yes [id number] 100mg Take 1 capsule by mouth 3 (three) times daily as needed for Cough. [facility] chlorphenir amine 4 mg tablet 10-30 00:00: 00 Yes [id number] 4mg Take 1 tablet by mouth every 6 (six) hours as needed for Allergies or Runny nose. [facility] ondansetron 4 mg disintegrat ing tablet 10-30 00:00: 00 Yes [id number] 4mg Take 1 tablet by mouth every 8 (eight) hours as needed for Nausea and Vomiting (N/V). [facility] metoclopram zeb 10 mg tablet 10-14 [...] patch 10-11 00:00: 00 Yes 1% Óscar F Lucas glimepiride 4 mg tablet 10-11 00:00: 00 Yes 1mg Óscar F Lucas naproxen 500 mg tablet,tony yed release 10-11 00:00: 00 Yes 1mg Óscar Zavala sulfamethox azole 800 mg-trimetho prim 160 mg tablet 10-11 00:00: 00 Yes 1mg Óscar Zavala Dose Unknown 10-11 00:00: 00 Yes Óscar Zavala pregabalin 100 mg capsule 10-11 00:00: 00 Yes 1mg Óscar Zavala ciprofloxac in HCl (CIPRO) tablet 250 mg 2019-10 01:30: 00 09-27 00:42 :00 No 250mg 250 mg, Oral, ONCE NOW, 1 dose, Sat09/26/20 at 1930, SARAH
Re ason for Anti-Infec tive: Documented Infection< br>Documen waldo Infection Site: Urine
D uration of Therapy: 7 days [facility] famotidine (PEPCID (PF)) injection 20 mg 2019-10 22:45: 00 09-26 22:45 :00 No 20mg 20 mg, Slow IV Push, ONCE, 1 dose, Sat09/26/20 at 1645, SARAH [facility] ondansetron (ZOFRAN (PF)) injection 4 mg 2019-10 22:45: 00 09-26 22:07 :00 No 4mg 4 mg, Slow IV Push, ONCE, 1 dose, Sat09/26/20 at 1645, SARAH [facility] proMETHazin e 25 mg tablet 2019-10 00:00: 00 Yes [id number] 25mg Take 1 tablet by mouth every 6 (six) hours as needed for Nausea and Vomiting (N/V). [facility] sucralfate 1 gram tablet 2019-10 00:00: 00 Yes [id number] 1g Take 1 tablet by mouth before meals and at bedtime. [facility] ciprofloxac in HCl 250 mg tablet 2019-10 00:00: 00 10-02 05:59 :00 No [id number] 250mg Take 1 tablet by mouth 2 (two) times daily for 5 days. [facility] Victoza 3-Anthony 0.6 mg/0.1 mL (18 [...] 00 Yes (18 mg/3 mL) Óscar Zavala amitriptyli ne 50 mg tablet 2019-10 00:00: 00 Yes 1mg Óscar Zavala gabapentin 400 mg capsule 2019-10 00:00: 00 Yes 1mg Óscar Zavala ProAir HFA 90 mcg/actuati on [...] ProAir HFA 90 mcg/actuati on aerosol inhaler 2019-10- 00:00: 00 No 12mcg/a ctuatio n dexamethaso [...] ctuatio n dexamethaso ne 4 mg tablet 2019-10- 00:00: 00 No 1mg levofloxaci n 500 mg tablet 2019-10 2 00:00: 00 No 1mg benzonatate 200 mg capsule 2019-10 00:00: 00 No 1mg Bromfed DM 2 mg-30 mg-10 mg/5 mL oral syrup 2019-10 2- 00:00: 00 No 5mg/5 mL ProAir HFA 90 mcg/actuati on aerosol inhaler 2019-10- 00:00: 00 No 12mcg/a ctuatio n dexamethaso [...] mcg/actuati on aerosol inhaler 2019-10 00:00: 00 Yes 12mcg/a ctuatio n Óscar Zavala dexamethaso ne 4 mg tablet 2019-10 00:00: 00 Yes 1mg Óscar Zavala levofloxaci n 500 mg tablet 2019-10 00:00: 00 Yes 1mg Óscar Zavala benzonatate 200 mg capsule 2019-10 00:00: 00 Yes 1mg Óscar Zavala Bromfed DM 2 mg-30 mg-10 mg/5 mL oral syrup 2019-10 00:00: 00 Yes 5mg/5 mL Óscar Zavala iohexol (OMNIPAQUE 350 BULK-100 mL) injection 100 mL 2019-10 02:15: 00 09-02 02:15 :00 No 100mL 100 mL, Intravenou s, ONCE, 1 dose, Vanessa 09/01/20 at 2015, Routine [facility] ondansetron (ZOFRAN (PF)) injection 4 mg 2019-10 23:45: 00 09-01 22:49 :00 No 4mg 4 mg, Slow IV Push, ONCE, 1 dose, Vanessa 09/01/20 at 1745, [facility] acetaminoph en (TYLENOL) tablet 650 mg 2019-10 23:45: 00 09-01 22:49 :00 No 650mg 650 mg, Oral, ONCE, 1 dose, Vanessa 09/01/20 at 1745, [facility] NaCl 0.9% (NS) bolus infusion 1,000 mL 2019-10 22:45: 00 09-02 00:02 :00 No 1000mL at 999 mL/hr, 1,000 mL, IV Infusion, ONCE, 1 dose, Vanessa 09/01/20 at 1645, [facility] azithromyci n 250 mg tablet 2019-10 00:00: 00 09-06 05:59 :00 No [id number] 250mg Take 1 tablet by mouth daily for 4 days. Take 500 mg day 1, then 250 mg days 2 to 5. [facility] prednisone 10 mg tablet 2019-10 00:00: [...] Sat07/26/20 at 0800, Until Discontinu ed, Routine [facility] ondansetron (ZOFRAN (PF)) injection 4 mg 2019-10 04:15: 00 07-26 03:28 :00 No 4mg 4 mg, Slow IV Push, ONCE, 1 dose, 07/25/20 at 2315, SARAH [facility] iohexol (OMNIPAQUE 350 BULK-150 mL) injection 120 mL 2019-10 04:15: 00 07-26 04:15 :00 No 120mL 120 mL, Intravenou s, ONCE, 1 dose, Sat07/25/20 at 2315, Routine [facility] NaCl 0.9% (NS) IV infusion 1,000 mL 2019-10 03:00: 00 Yes 1000mL at 999 mL/hr, Intravenou s, CONTINUOUS , Starting Sat07/25/20 at 2200, Until Discontinu ed, Routine [facility] ondansetron (ZOFRAN (PF)) injection 4 mg 2019-10 03:00: 00 07-26 02:14 :00 No 4mg 4 mg, Slow IV Push, ONCE, 1 dose, Sat07/25/20 at 2200, SARAH [facility] pantoprazol e (PROTONIX) 40 mg EC tablet 2019-10 00:00: 00 09-26 00:00 :00 No [id number] 40mg Take 1 tablet by mouth daily. [facility] dicyclomine 20 mg tablet 2019-10 00:00: 00 09-26 00:00 :00 No [id number] 20mg Take 1 tablet by mouth every 6 (six) hours as needed for Abdominal pain. [facility] ondansetron (ZOFRAN) 4 mg tablet 2019-10 00:00: 00 09-26 00:00 :00 No [id number] 4mg Take 1 tablet by mouth every 8 (eight) hours as needed for Nausea and Vomiting (N/V). [facility] naproxen 500 mg tablet,tony yed release 2019-10 00:00: 00 No 1mg naproxen 500 mg tablet,tony yed release 2019-10 00:00: 00 No 1mg naproxen 500 mg tablet,tony yed release 2019-10 0 00:00: 00 No 1mg naproxen 500 mg tablet,tony yed release 2019-10 0 00:00: 00 Yes 1mg Óscar Zavala Victoza [...] s pen injector 0 06-02 00:00: 00 Yes (18 mg/3 mL) [...] 1mg naproxen 500 mg tablet,tony yed release - 00:00: 00 No 1mg glimepiride 4 mg tablet 2019-0 7-28 00:00: 00 No 1mg Actos 15 mg tablet 2019-0 - 00:00: 00 Yes 1mg Óscar Zavala glipizide 5 mg tablet 2019-0 05-03 00:00: 00 Yes 1mg Óscar Zavala naproxen 500 mg tablet,tnoy yed release 2019-0 7- 00:00: 00 Yes 1mg Óscar Zavala glimepiride 4 mg tablet 0 05-03 00:00: 00 Yes 1mg Óscar Zavala Actos 15 mg tablet 2019-0 7-16 00:00: 00 No 1mg glimepiride 2 mg tablet 2019-0 -16 00:00: 00 No 1mg Actos 15 mg tablet 2019-0 716 00:00: 00 No 1mg glimepiride 2 mg tablet 2019-0 7-16 00:00: 00 No 1mg Actos 15 mg tablet 2019-0 -16 00:00: 00 No 1mg glimepiride 2 mg tablet 2019-0 16 00:00: 00 No 1mg Actos 15 mg tablet 2019-0 7-16 00:00: 00 Yes 1mg Óscar Zavala glimepiride 2 mg tablet 2019-0 -16 00:00: 00 Yes 1mg Óscar Zavala Singulair 10 mg tablet 2019-0 7- 00:00: 00 No 1mg Singulair 10 mg tablet 2019-0 7- 00:00: 00 No 1mg Singulair 10 mg tablet 2019-0 7- 00:00: 00 No 1mg Singulair 10 mg tablet 2019-0 7- 00:00: 00 Yes 1mg Óscar Zavala cyclobenzap rine 10 mg tablet 2019-0 6-20 00:00: 00 No 1mg cyclobenzap rine 10 mg tablet 2019-0 6-20 00:00: 00 No 1mg cyclobenzap rine 10 mg tablet 2019-0 6-20 00:00: 00 No 1mg cyclobenzap rine 10 mg tablet 2019-0 6-20 00:00: 00 Yes 1mg Óscar Zavala metronidazo le 500 mg tablet 2020-0 2-03 00:00: 00 No 1mg metronidazo le 500 mg tablet 11-09 00:00: 00 No 1mg metronidazo le 500 mg tablet 11-09 00:00: 00 No 1mg metronidazo le 500 mg tablet 11-09 00:00: 00 Yes 1mg Óscar Zavala gabapentin 400 mg capsule 11-02 00:00: 00 [...] Zavala methocarbam ol (ROBAXIN) 500 mg tablet 12-18 00:00: 00 11-28 00:00 :00 No [id number] 500mg Take 1 tablet by mouth 3 (three) times daily as needed for Pain (scale 4-6). [facility] traMADOL 50 mg tablet -14 00:00: 00 09-16 00:00 :00 No [id number] 50mg Take 1 tablet by mouth every 8 (eight) hours as needed for Pain (scale 4-6). [facility] naproxen 250 mg tablet 10-11 00:00: 00 Yes 250mg Take 1 tablet by mouth 2 (two) times daily with meals. [facility] traMADOL (ULTRAM) 50 mg tablet 10-11 00:00: 09-16 00:00 :00 No 50mg Take 1 tablet by mouth every 6 (six) hours as needed for Pain (scale 4-6). [facility] cyclobenzap rine 5 mg tablet 10-11 00:00: 00 09-26 00:00 :00 No 5mg Take 1 tablet by mouth 3 (three) times daily. [facility] Fluticasone Propionate 50 MCG/ACT Fluticasone Propionate 50 MCG/ACT 2017-10 00:00: 00 No 1{spray _in_eac h_nostr il} QD ALPRAZolam 0.5 MG ALPRAZolam 0.5 MG 01-07 00:00: 00 No 1{table t} BID Novolin R Regular U-100 Insulin 100 unit/mL [...] unit/mL injection solution 2015-10 00:00: 00 Yes unit/Jose Zavala amitriptyli ne 50 mg tablet 06-01 [...] as needed for Nausea and Vomiting (N/V). [facility] ranitidine (ZANTAC) 150 mg tablet 05-20 00:00: 00 09-26 00:00 :00 No 150mg Take 1 tablet by mouth 2 (two) times daily. [facility] cyclobenzap rine 5 mg tablet 04-12 [...] 12-25 23:42: 52 Yes Take by mouth. [facility] INSULIN REGULAR HUMAN SC 12-25 23:42: 52 Yes inject under the skin. [facility] gabapentin (NEURONTIN) 300 mg capsule 12-25 23:42: 52 Yes 300mg Take 300 mg by mouth 3 (three) times daily. [facility] METFORMIN HCL (METFORMIN ORAL) 12-25 18:42: 52 Yes Take by mouth. [facility] INSULIN REGULAR HUMAN SC 12-25 18:42: 52 Yes inject under the skin. [facility] gabapentin (NEURONTIN) 300 mg capsule 12-25 18:42: 52 Yes 300mg Take 300 mg by mouth 3 (three) times daily. [facility] cyclobenzap rine 5 mg tablet 11-23 [...] tablet 11-16 00:00: 00 Yes 1mg Óscar Zavala gabapentin 100 mg capsule 11-10 00:00: 00 No 1mg gabapentin 100 mg capsule 11-10 00:00: 00 No 1mg gabapentin 100 mg capsule 11-10 00:00: 00 No 1mg gabapentin 100 mg capsule 11-10 00:00: 00 Yes 1mg Óscar Zavala Naproxen 500 MG oral Tablet 12-12 00:00: 00 10-14 00:00 :00 No 500mg Take 1 tablet (500 mg total) by mouth in the morning and 1 tablet (500 mg total) in the evening. Take with meals. Shelby Olvera - Luís birch [facility] - Childrens Gummies - No Stuart Morgan 2 gummies [facility] Amitriptyli ne HCl Amitriptyli ne HCl No Cyclobenzap rine HCl 5 MG Cyclobenzap rine HCl 5 MG No 1{table t_as_ne eded} Gabapentin 300 MG Gabapentin 300 MG No 1{table t} BID Lantus 100 UNIT/ML Lantus 100 UNIT/ML No Immunizations Ordered Immunization Name Filled Immunization Name [...] Observation Time Observation Value Comments S ource Body temperature 2024-10-13 04:38:36 37 [place] [facility] Systolic blood pressure 2024-10-13 04:38:00 115 mm[Hg] [facility] Diastolic blood pressure 2024-10-13 04:38:00 57 mm[Hg] [facility] Heart rate 2024-10-13 04:38:00 80 /min [facility] Respiratory rate 2024-10-13 04:38:00 18 /min [facility] Oxygen saturation in Arterial blood by Pulse oximetry 2024-10-13 04:38:00 98 /min [facility] Body height 2024-10-13 01:51:00 157.5 cm [facility] Body weight 2024-10-13 01:51:00 74.39 kg [facility] BMI 2024-10-13 01:51:00 30.00 kg/m2 [facility] Systolic blood pressure 2023-10-14 15:33:00 124 mm[Hg] Shelby Reina ld - External Diastolic blood pressure 2023-10-14 15:33:00 70 mm[Hg] Shelby Reina ld - External Heart rate 2023-10-14 14:52:00 88 /min Rosenda Olvera - External Body temperature 2023-10-14 14:52:00 36.39 Juana Shelby Olvera - External Respiratory rate 2023-10-14 14:52:00 20 /min Shelby Olvera - External Body height 2023-10-14 14:52:00 157.5 cm aFuzia barkley Seybyoli - External Body weight 2023-10-14 14:52:00 77.565 kg Fauzia barkley Seybyoli - External BMI 2023-10-14 14:52:00 31.28 kg/m2 Fauzia Olvera - External Oxygen saturation in Arterial blood by Pulse oximetry 2023-10-14 14:52:00 99 /min Shelby Reina ld - External Systolic blood pressure 2023-02-08 13:34:00 163 mm[Hg] [facility] Diastolic blood pressure 2023-02-08 13:34:00 85 mm[Hg] [facility] Heart rate 2023-02-08 13:34:00 88 /min [facility] Body temperature 2023-02-08 13:34:00 37.39 [place] [facility] Respiratory rate 2023-02-08 13:34:00 16 /min [facility] Body height 2023-02-08 13:34:00 157.5 cm [facility] Body weight 2023-02-08 13:34:00 73.936 kg [facility] BMI 2023-02-08 13:34:00 29.81 kg/m2 [facility] Oxygen saturation in Arterial blood by Pulse oximetry 2023-02-08 13:34:00 99 /min [facility] Systolic blood pressure 2022-11-28 22:30:00 107 mm[Hg] [facility] Diastolic blood pressure 2022-11-28 22:30:00 74 mm[Hg] [facility] Heart rate 2022-11-28 22:30:00 99 /min [facility] Body temperature 2022-11-28 22:30:00 37.11 [place] [facility] Respiratory rate 2022-11-28 22:30:00 18 /min [facility] Body height 2022-11-28 22:30:00 157.5 cm [facility] Body weight 2022-11-28 22:30:00 73.483 kg [facility] BMI 2022-11-28 22:30:00 29.63 kg/m2 [facility] Oxygen saturation in Arterial blood by Pulse oximetry 2022-11-28 22:30:00 98 /min [facility] Systolic blood pressure 2022-09-16 20:56:00 144 mm[Hg] [facility] Diastolic blood pressure 2022-09-16 20:56:00 80 mm[Hg] [facility] Heart rate 2022-09-16 20:56:00 83 /min [facility] Body temperature 2022-09-16 20:56:00 37.11 [place] [facility] Respiratory rate 2022-09-16 20:56:00 20 /min [facility] Oxygen saturation in Arterial blood by Pulse oximetry 2022-09-16 20:56:00 97 /min [facility] Systolic blood pressure 2022-06-26 02:00:00 129 mm[Hg] [facility] Diastolic blood pressure 2022-06-26 02:00:00 71 mm[Hg] [facility] Heart rate 2022-06-26 02:00:00 60 /min [facility] Respiratory rate 2022-06-26 02:00:00 18 /min [facility] Oxygen saturation in Arterial blood by Pulse oximetry 2022-06-26 02:00:00 98 /min [facility] Body temperature 2022-06-26 01:13:00 36.78 [place] [facility] Body height 2022-06-26 01:13:00 157.5 cm [facility] Body weight 2022-06-26 01:13:00 71.668 kg [facility] BMI 2022-06-26 01:13:00 28.90 kg/m2 [facility] Systolic blood pressure 2021-12-07 06:15:00 134 mm[Hg] [facility] Diastolic blood pressure 2021-12-07 06:15:00 72 mm[Hg] [facility] Heart rate 2021-12-07 06:15:00 73 /min [facility] Respiratory rate 2021-12-07 06:15:00 16 /min [facility] Oxygen saturation in Arterial blood by Pulse oximetry 2021-12-07 06:15:00 100 /min [facility] Body temperature 2021-12-07 03:30:00 36.94 [place] [facility] Body height 2021-12-07 03:30:00 157.5 cm [facility] 2021-12-07 03:30:00 70.308 kg [facility] BMI 2021-12-07 03:30:00 28.35 kg/m2 [facility] Heart rate 2021-03-05 22:21:00 76 /min [facility] Body temperature 2021-03-05 22:21:00 37.17 [place]ana [facility] Respiratory rate 2021-03-05 22:21:00 16 /min [facility] Body height 2021-03-05 22:21:00 154.9 cm [facility] Body weight 2021-03-05 22:21:00 76.204 kg [facility] BMI 2021-03-05 22:21:00 31.74 kg/m2 [facility] Oxygen saturation in Arterial blood by Pulse oximetry 2021-03-05 22:21:00 97 /min [facility] Systolic blood pressure 2020-12-17 17:14:00 136 mm[Hg] [facility] Diastolic blood pressure 2020-12-17 17:14:00 75 mm[Hg] [facility] Heart rate 2020-12-17 17:14:00 92 /min [facility] Body temperature 2020-12-17 17:14:00 36.61 [place] [facility] Respiratory rate 2020-12-17 17:14:00 20 /min [facility] Body weight 2020-12-17 17:14:00 77.111 kg [facility] BMI 2020-12-17 17:14:00 31.09 kg/m2 [facility] Oxygen saturation in Arterial blood by Pulse oximetry 2020-12-17 17:14:00 95 /min [facility] Systolic blood pressure 2020-10-30 14:30:00 156 mm[Hg] [facility] Diastolic blood pressure 2020-10-30 14:30:00 80 mm[Hg] [facility] Heart rate 2020-10-30 14:30:00 99 /min [facility] Respiratory rate 2020-10-30 14:30:00 20 /min [facility] Oxygen saturation in Arterial blood by Pulse oximetry 2020-10-30 14:30:00 100 /min [facility] Body temperature 2020-10-30 12:32:00 37.56 [place] [facility] Body height 2020-10-30 12:32:00 157.5 cm [facility] Body weight 2020-10-30 12:32:00 77.111 kg [facility] BMI 2020-10-30 12:32:00 31.09 kg/m2 [facility] Systolic blood pressure 2020-09-27 01:05:00 152 mm[Hg] [facility] Diastolic blood pressure 2020-09-27 01:05:00 89 mm[Hg] [facility] Heart rate 2020-09-27 01:05:00 90 /min [facility] Respiratory rate 2020-09-27 01:05:00 16 /min [facility] Oxygen saturation in Arterial blood by Pulse oximetry 2020-09-27 01:05:00 99 /min [facility] Body temperature 2020-09-26 21:20:00 37.28 Juana [facility] Body height 2020-09-26 21:20:00 157.5 cm [facility] Body weight 2020-09-26 21:20:00 74.844 kg [facility] BMI 2020-09-26 21:20:00 30.18 kg/m2 [facility] Systolic blood pressure 2020-09-02 02:30:00 125 mm[Hg] [facility] Diastolic blood pressure 2020-09-02 02:30:00 66 mm[Hg] [facility] Heart rate 2020-09-02 02:30:00 106 /min [facility] Respiratory rate 2020-09-02 02:30:00 18 /min [facility] Oxygen saturation in Arterial blood by Pulse oximetry 2020-09-02 02:30:00 97 /min [facility] Body temperature 2020-09-02 00:02:31 38.5 [place] [facility] Body height 2020-09-01 22:28:00 154.9 cm [facility] Body weight 2020-09-01 22:28:00 74.39 kg [facility] BMI 2020-09-01 22:28:00 30.99 kg/m2 [facility] Oxygen saturation in Arterial blood by Pulse oximetry 2020-07-26 04:45:00 95 /min [facility] Systolic blood pressure 2020-07-26 04:45:00 132 mm[Hg] [facility] Diastolic blood pressure 2020-07-26 04:45:00 77 mm[Hg] [facility] Heart rate 2020-07-26 04:45:00 92 /min [facility] Respiratory rate 2020-07-26 03:00:00 20 /min [facility] Body temperature 2020-07-26 01:24:00 37.72 [place] [facility] Body height 2020-07-26 01:24:00 154.9 cm [facility] Body weight 2020-07-26 01:24:00 77.111 kg [facility] BMI 2020-07-26 01:24:00 32.12 kg/m2 [facility] BP Systolic 2024-02-13 16:33:00 135 mm[Hg] Urban Zavala BP Diastolic 2024-02-13 16:33:00 88 mm[Hg] Joseph Zavala Weight Measured 2024-02-13 16:33:00 170.60 pounds Óscar Zavala Height Measured 2024-02-13 16:33:00 62.50 inches Óscar Zavala Body Temperature 2024-02-13 16:33:00 98.20 degrees Óscar [...] 2023-12-11 14:34:00 79.00 /min Anna en F Lucas Respiratory Rate 2023-12-11 14:34:00 18.00 /min Óscar [...] Lucas BP Diastolic 2023-04-23 10:20:00 83 mm[Hg] Ojseph phen F Lucas Weight Measured 2023-04-23 10:20:00 164.20 pounds Óscar F Lucas Height Measured 2023-04-23 10:20:00 62.50 inches Óscar F Lucas Body Temperature 2023-04-23 10:20:00 98.20 degrees Óscar F Lucas Heart Rate 2023-04-23 10:20:00 80.00 /min Anna en F Ulcas Respiratory Rate 2023-04-23 10:20:00 19.00 /min Óscar [...] Date / Time Performed Performing Clinician Source RAPID STREP SCREEN FOR GROUP A 2024-10-13 02:36:00 Sarmad Rashid [facility] INFLUENZA A/B RSV COVID NAAT 2024-10-13 02:36:00 Sarmad Rashid [facility] AUTHORIZATION FOR RELEASE OF PHI 2023-04-26 05:01:00 Doctor Unassigned, Osseo [facility] AUTHORIZATION FOR RELEASE OF PHI 2023-04-17 05:01:00 Doctor Unassigned, Osseo [facility] XR KNEE 3 VW LEFT 2023-02-08 15:25:16 Maricarmen Talavera [facility] CONSENT/REFUSAL FOR DIAGNOSIS AND TREATMENT 2023-02-08 13:25:51 Doctor Unassigned, [place]o [facility] XR HIPS 3 VW LEFT 2022-11-28 23:35:00 Singer John [facility] CONSENT/REFUSAL FOR DIAGNOSIS AND TREATMENT 2022-11-28 22:22:03 Doctor Unassigned, [place] [facility] LIPASE 2022-09-16 23:46:00 Dannielle Arechiga [facility] TEST, SERUM 2022-09-16 23:46:00 Johnathon Arechiga [facility] COMP. METABOLIC PANEL ([id number]) 2022-09-16 23:46:00 Dannielle Arechiga [facility] CBC WITH DIFF 2022-09-16 23:46:00 Dannielle Arechiga [facility] URINALYSIS 2022-09-16 22:26:00 Dannielle Arechiga [facility] CONSENT/REFUSAL FOR DIAGNOSIS AND TREATMENT 2022-09-16 20:45:39 Doctor Unassigned, [place]o [facility] XR CHEST 2 VW 2022-06-26 02:03:35 [facility] FOOT [facility]+ VW BILATERAL 2022-06-26 02:03:35 Tyshawn Nicholson [facility] COMP. METABOLIC PANEL ([id number]) 2022-06-26 01:33:00 Ebenezer Nicholson [facility] CBC WITH DIFF 2022-06-26 01:33:00 [facility] 2022-06-26 01:33:00 Ebenezer Nicholson [facility] N-TERMINAL PRO-BNP 2022-06-26 01:33:00 Ebenezer Nicholson [facility] CONSENT/REFUSAL FOR DIAGNOSIS AND TREATMENT 2022-06-26 01:04:33 Doctor Unassigned, [place] [facility] CONSENT/REFUSAL FOR DIAGNOSIS AND TREATMENT 2022-04-10 03:01:56 Doctor Unassigned, [place] [facility] POCT GLUCOSE (AUTOMATED) 2021-12-07 06:58:00 Eladio Monsivais [facility] CT MAXILLOFACIAL/MANDIBLE WO CONTRAST 2021-12-07 05:31:00 Eladio Monsivais [facility] CT HEAD WO CONTRAST 2021-12-07 05:31:00 Eladio Monsivais [facility] XR CHEST 1 VW 2021-12-07 05:28:00 Eladio Monsivais [facility] XR HAND 3+ VW LEFT 2021-12-07 05:28:00 Eladio Monsivais [facility] POCT GLUCOSE (AUTOMATED) 2021-12-07 04:51:00 Eladio Monsivais [facility] URINALYSIS 2021-12-07 04:06:00 Loi Eladio [facility] TROPONIN I 2021-12-07 03:58:00 Eladio Monsivais [facility] COMP. METABOLIC PANEL ([id number]) 2021-12-07 03:58:00 Eladio Monsivais [facility] CBC WITH DIFF 2021-12-07 03:58:00 Eladio Monsivais [facility] PROTHROMBIN TIME / INR 2021-12-07 03:58:00 Júnior Monsivais [facility] NOTICE OF PRIVACY PRACTICES 2021-12-07 03:20:07 Doctor Unassigned, [place] [facility] CONSENT/REFUSAL FOR DIAGNOSIS AND TREATMENT 2021-12-07 03:18:34 Doctor Unassigned, [place] [facility] XR ANKLE 3+ VW LEFT 2021-03-05 22:58:39 Vonnie Nathan [facility] CONSENT/REFUSAL FOR DIAGNOSIS AND TREATMENT 2021-03-05 22:02:12 Doctor Unassigned, [place] [facility] XR ABDOMEN ACUTE SERIES 2020-12-17 18:13:15 Do deanne Jeffery [facility] LIPASE 2020-12-17 17:46:00 Hermilo Jeffery [facility] HEPATIC FUNCTION PANEL (38500) (ALB,T.PRO,BILI T,BU/BC,ALT,AST,ALK PHOS) 2020-12-17 17:46:00 Hermilo Jeffery [facility] BASIC METABOLIC PANEL (NA, K, CL, CO2, GLUCOSE, BUN, CREATININE, CA) 2020-12-17 17:46:00 Hermilo Jeffery [facility] CBC WITH DIFF 2020-12-17 17:46:00 Hermilo Jeffery [facility] PROTHROMBIN TIME / INR 2020-12-17 17:46:00 Galindo Jeffery [facility] ACTIVATED PARTIAL THRMPLAS RUBIO 2020-12-17 17:46:00 Hermilo Jeffery [facility] URINALYSIS 2020-12-17 17:46:00 Hermilo Jeffery [facility] COVID-19 (ID NOW RAPID TESTING) 2020-12-17 17:46:00 Hermilo Jeffery [facility] NOTICE OF PRIVACY PRACTICES 2020-12-17 17:07:59 Doctor Unassigned, [place] [facility] CONSENT/REFUSAL FOR DIAGNOSIS AND TREATMENT 2020-12-17 17:07:25 Doctor Unassigned, [place] [facility] CT CHEST PULMONARY ANGIOGRAM 2020-10-30 14:24:45 John Maharaj [facility] POCT TEST 2020-10-30 14:14:00 Truong Maharaj [facility] XR CHEST 1 VW 2020-10-30 13:04:14 Kt Ratliff [facility] TEST, SERUM 2020-10-30 12:49:00 Faisal Ratliff [facility] TROPONIN I 2020-10-30 12:49:00 Kt Ratliff [facility] HEPATIC FUNCTION PANEL ([id number]) (ALB,T.PRO,BILI T,BU/BC,ALT,AST,ALK PHOS) 2020-10-30 12:49:00 Kt Ratliff [facility] BASIC METABOLIC PANEL (NA, K, CL, CO2, GLUCOSE, BUN, CREATININE, CA) 2020-10-30 12:49:00 tK Ratliff [facility] CBC WITH DIFF 2020-10-30 12:49:00 Kt Ratliff [facility] PROTHROMBIN TIME / INR 2020-10-30 12:49:00 Sukumar Ratliff [facility] D-DIMER 2020-10-30 12:49:00 Kt Ratliff [facility] ACTIVATED PARTIAL THRMPLAS RUBIO 2020-10-30 12:49:00 Kt Ratliff [facility] RAPID STREP SCREEN FOR GROUP A 2020-10-30 12:49:00 Kt Ratliff [facility] ADC,CLC OR LCC ONLY - INFLUENZA A & B DIRECT ANTIGEN 2020-10-30 12:49:00 Kt Ratliff [facility] COVID-19 (ID NOW RAPID TESTING) 2020-10-30 12:49:00 Kt Ratliff [facility] NOTICE OF PRIVACY PRACTICES 2020-10-30 12:21:16 Doctor Unassigned, [place]seo [facility] CONSENT/REFUSAL FOR DIAGNOSIS AND TREATMENT 2020-10-30 12:21:04 Doctor Unassigned, [place]seo [facility] URINALYSIS 2020-09-26 22:51:00 Carie Chanel [facility] XR CHEST 1 VW 2020-09-26 22:03:02 Carie Chanel [facility] LIPASE 2020-09-26 21:51:00 Carie Chanel [facility] TROPONIN I 2020-09-26 21:51:00 Carie Chanel [facility] COMP. METABOLIC PANEL (89126) 2020-09-26 21:51:00 Carie Chanel [facility] CBC WITH DIFF 2020-09-26 21:51:00 Carie Chanel [facility] N-TERMINAL PRO-BNP 2020-09-26 21:51:00 Carie Chanel [facility] CONSENT/REFUSAL FOR DIAGNOSIS AND TREATMENT 2020-09-26 21:08:31 Doctor Unassigned, [place] [facility] CT CHEST PULMONARY ANGIOGRAM 2020-09-02 02:01:09 Luisito Chavis [facility] D-DIMER 2020-09-02 00:29:00 Luisito Chavis [facility] XR CHEST 1 VW 2020-09-01 23:08:31 Luisito Chavis [facility] POCT TEST 2020-09-01 22:52:00 Luisito Chavis [facility] BLOOD CULTURE SCREEN 2020-09-01 22:47:00 Luisito Chavis [facility] COMP. METABOLIC PANEL (39245) 2020-09-01 22:47:00 Luisito Chavis [facility] CBC WITH DIFF 2020-09-01 22:47:00 Luisito Chavis [facility] URINALYSIS 2020-09-01 22:47:00 [facility] - INFLUENZA A & B DIRECT ANTIGEN 2020-09-01 22:47:00 Luisito Chavis [facility] N-TERMINAL PRO-BNP 2020-09-01 22:47:00 Luisito Chavis [facility] LACTIC ACID WHOLE BLOOD 2020-09-01 22:47:00 Me hussein Chavis [facility] COVID-19 (ID NOW RAPID TESTING) 2020-09-01 22:47:00 Luisito Chavis [facility] NOTICE OF PRIVACY PRACTICES 2020-09-01 22:31:34 Doctor Unassigned, Osseo [facility] CONSENT/REFUSAL FOR DIAGNOSIS AND TREATMENT 2020-09-01 22:18:34 Doctor Unassigned, [place] [facility] CT ABDOMEN PELVIS W CONTRAST 2020-07-26 04:10:32 Yolanda Bass [facility] LIPASE 2020-07-26 02:16:00 Yolanda Bass [facility] COMP. METABOLIC PANEL (00464) 2020-07-26 02:16:00 Yolanda Bass [facility] CBC WITH DIFF 2020-07-26 02:16:00 Yolanda Bass [facility] URINALYSIS 2020-07-26 02:16:00 Yolanda Bass [facility] EKG-12 LEAD 2020-07-26 02:00:35 Yolanda Bass [facility] NOTICE OF PRIVACY PRACTICES 2020-07-26 00:35:41 Doctor Unassigned, [place] [facility] CONSENT/REFUSAL FOR DIAGNOSIS AND TREATMENT 2020-07-26 00:35:21 Doctor Unassigned, [place] [facility] REFERRAL- REQUEST/RESPONSE 2020-07-05 05:01:00 Doctor Unassigned, [place] [facility] Plan of Care Planned Activity Planned Date Details Comments Source Goal Plan of Care Note [code = 07287-4] Goal Plan of Care Note [code = 45588-8] Goal Plan of Care Note [code = 40787-2] Goal Plan of Care Note [code = 24636-4] Goal Plan of Care Note [code = 75414-5] Goal Plan of Care Note [code = 82221-1] Goal Plan of Care Note [code = 54037-6] Goal Plan of Care Note [code = 42967-2] Goal Plan of Care Note [code = 43921-4] Goal Plan of Care Note [code = 10181-8] Goal Plan of Care Note [code = 17016-1] Goal Plan of Care Note [code = 40353-3] Goal Plan of Care Note [code = 81729-7] Goal Plan of Care Note [code = 35135-6] Goal Plan of Care Note [code = 66142-9] Goal Plan of Care Note [code = 52357-3] Goal Plan of Care Note [code = 83452-3] Goal Plan of Care Note [code = 98517-1] Goal Plan of Care Note [code = 62600-4] Goal Plan of Care Note [code = 95150-8] Goal Plan of Care Note [code = 97800-4] Goal Plan of Care Note [code = 21308-3] Goal Plan of Care Note [code = 05818-5] Goal Plan of Care Note [code = 09879-5] Goal Plan of Care Note [code = 00963-3] Goal Plan of Care Note [code = 47311-1] Goal Plan of Care Note [code = 29603-6] Goal Plan of Care Note [code = 78049-9] Goal Plan of Care Note [code = 20485-3] Goal Plan of Care Note [code = 26138-8] Goal Plan of Care Note [code = 97361-1] Goal Plan of Care Note [code = 83666-6] Goal Plan of Care Note [code = 81359-6] Goal Plan of Care Note [code = 64019-2] Goal Plan of Care Note [code = 16895-0] Goal Plan of Care Note [code = 36247-5] Goal Plan of Care Note [code = 39266-5] Goal Plan of Care Note [code = 22805-8] Goal Plan of Care Note [code = 91572-3] Goal Plan of Care Note [code = 81311-6] Goal Plan of Care Note [code = 42652-4] Goal Plan of Care Note [code = 86964-2] Goal Plan of Care Note [code = 25207-5] Goal Plan of Care Note [code = 69455-1] Goal Plan of Care Note [code = 03432-2] Goal Plan of Care Note [code = 09368-2] Goal Plan of Care Note [code = 59223-6] Goal Plan of Care Note [code = 60329-3] Goal Plan of Care Note [code = 50901-2] Goal Plan of Care Note [code = 46727-3] Goal Plan of Care Note [code = 44091-1] Goal Plan of Care Note [code = 54736-3] Goal Plan of Care Note [code = 10400-9] Goal Plan of Care Note [code = 98328-4] Goal Plan of Care Note [code = 21362-7] Goal Plan of Care Note [code = 26849-3] Goal Plan of Care Note [code = 51970-4] Goal Plan of Care Note [code = 83512-4] Goal Plan of Care Note [code = 50463-7] Goal Plan of Care Note [code = 98593-4] Goal Plan of Care Note [code = 21689-0] Goal Plan of Care Note [code = 00042-7] Goal Plan of Care Note [code = 60550-7] Goal Plan of Care Note [code = 09281-2] Goal Plan of Care Note [code = 46052-4] Goal Plan of Care Note [code = 42552-9] Goal Plan of Care Note [code = 83126-2] Goal Plan of Care Note [code = 84584-7] Goal Plan of Care Note [code = 49683-3] Goal Plan of Care Note [code = 16431-2] Goal Plan of Care Note [code = 48641-8] Goal Plan of Care Note [code = 44762-0] Goal Plan of Care Note [code = 37340-6] Goal Plan of Care Note [code = 10761-4] Goal Plan of Care Note [code = 59637-6] Goal Plan of Care Note [code = 96187-3] Goal Plan of Care Note [code = 65266-7] Goal Plan of Care Note [code = 66732-7] Goal Plan of Care Note [code = 38060-3] Goal Plan of Care Note [code = 25857-6] Goal Plan of Care Note [code = 49830-0] Goal Plan of Care Note [code = 74834-6] Goal Plan of Care Note [code = 41523-3] Goal Plan of Care Note [code = 72906-6] Goal Plan of Care Note [code = 45150-8] Goal Plan of Care Note [code = 16499-9] Goal Plan of Care Note [code = 46629-2] Goal Plan of Care Note [code = 24889-9] Goal Plan of Care Note [code = 73513-7] Goal Plan of Care Note [code = 44622-3] Goal Plan of Care Note [code = 83951-8] Goal Plan of Care Note [code = 00889-1] Goal Plan of Care Note [code = 25232-2] Goal Plan of Care Note [code = 07617-1] Goal Plan of Care Note [code = 73524-9] Goal Plan of Care Note [code = 81376-7] Goal Plan of Care Note [code = 84094-8] Goal Plan of Care Note [code = 21654-4] Goal Plan of Care Note [code = 58216-7] Goal Plan of Care Note [code = 14408-9] Goal Plan of Care Note [code = 06687-0] Goal Plan of Care Note [code = 53709-9] Goal Plan of Care Note [code = 60301-2] Goal Plan of Care Note [code = 52560-5] Goal Plan of Care Note [code = 85193-1] Goal Plan of Care Note [code = 70237-8] Goal Plan of Care Note [code = 04037-4] Goal Plan of Care Note [code = 24940-3] Goal Plan of Care Note [code = 14992-4] Goal Plan of Care Note [code = 53147-5] Goal Plan of Care Note [code = 43111-0] Goal Plan of Care Note [code = 41295-1] Goal Plan of Care Note [code = 04404-6] Goal Plan of Care Note [code = 81810-1] Goal Plan of Care Note [code = 39195-0] Goal Plan of Care Note [code = 61675-4] Goal Plan of Care Note [code = 22636-9] Goal Plan of Care Note [code = 36791-2] Goal Plan of Care Note [code = 75231-3] Goal Plan of Care Note [code = 28077-5] Goal Plan of Care Note [code = 63496-8] Goal Plan of Care Note [code = 79492-1] Goal Plan of Care Note [code = 23184-1] Goal Plan of Care Note [code = 28352-0] Goal Plan of Care Note [code = 12456-0] Goal Plan of Care Note [code = 72686-1] Goal Plan of Care Note [code = 31730-6] Goal Plan of Care Note [code = 27341-7] Goal Plan of Care Note [code = 13554-1] Goal Plan of Care Note [code = 32892-8] Goal Plan of Care Note [code = 70680-9] Goal Plan of Care Note [code = 39497-9] Goal Plan of Care Note [code = 91078-1] Goal Plan of Care Note [code = 73152-9] Goal Plan of Care Note [code = 27149-6] Goal Plan of Care Note [code = 73589-5] Goal Plan of Care Note [code = 34102-7] Goal Plan of Care Note [code = 14081-9] Goal Plan of Care Note [code = 00202-0] Goal Plan of Care Note [code = 36810-7] Goal Plan of Care Note [code = 10317-5] Goal Plan of Care Note [code = 01586-3] Goal Plan of Care Note [code = 50635-5] Goal Plan of Care Note [code = 98615-4] Goal Plan of Care Note [code = 75612-9] Goal Plan of Care Note [code = 25577-0] Goal Plan of Care Note [code = 92062-1] Goal Plan of Care Note [code = 58057-9] Goal Plan of Care Note [code = 83884-6] Goal Plan of Care Note [code = 57596-4] Goal Plan of Care Note [code = 22827-1] Goal Plan of Care Note [code = 13277-4] Goal Plan of Care Note [code = 72985-7] Goal Plan of Care Note [code = 44444-1] Goal Plan of Care Note [code = 28585-3] Goal Plan of Care Note [code = 56224-4] Goal Plan of Care Note [code = 04047-7] Goal Plan of Care Note [code = 20882-2] Goal Plan of Care Note [code = 01405-3] Goal Plan of Care Note [code = 26991-1] Goal Plan of Care Note [code = 54931-6] Goal Plan of Care Note [code = 36224-2] Goal Plan of Care Note [code = 27163-2] Goal Plan of Care Note [code = 80030-2] Goal Plan of Care Note [code = 25725-5] Goal Plan of Care Note [code = 19690-2] Goal Plan of Care Note [code = 00071-7] Goal Plan of Care Note [code = 58300-4] Goal Plan of Care Note [code = 52591-0] Goal Plan of Care Note [code = 81607-9] Goal Plan of Care Note [code = 85474-4] Goal Plan of Care Note [code = 09280-8] Goal Plan of Care Note [code = 16813-7] Goal Plan of Care Note [code = 00581-2] Goal Plan of Care Note [code = 02063-6] Goal Plan of Care Note [code = 92026-9] Goal Plan of Care Note [code = 79803-4] Goal Plan of Care Note [code = 47300-4] Goal Plan of Care Note [code = 06784-4] Goal Plan of Care Note [code = 77036-7] Goal Plan of Care Note [code = 50282-5] Goal Plan of Care Note [code = 76091-3] Goal Plan of Care Note [code = 26679-3] Goal Plan of Care Note [code = 36151-7] Goal Plan of Care Note [code = 37144-1] Goal Plan of Care Note [code = 59843-5] Goal Plan of Care Note [code = 36604-7] Goal Plan of Care Note [code = 96516-9] Goal Plan of Care Note [code = 91827-8] Goal Plan of Care Note [code = 51854-0] Goal Plan of Care Note [code = 56075-6] Goal Plan of Care Note [code = 67467-9] Goal Plan of Care Note [code = 41505-5] Goal Plan of Care Note [code = 73425-6] Goal Plan of Care Note [code = 37396-0] Goal Plan of Care Note [code = 14250-9] Goal Plan of Care Note [code = 88827-5] Goal Plan of Care Note [code = 29069-3] Goal Plan of Care Note [code = 45536-2] Goal Plan of Care Note [code = 57339-8] Goal Plan of Care Note [code = 62470-0] Goal Plan of Care Note [code = 28928-7] Goal Plan of Care Note [code = 66627-5] Goal Plan of Care Note [code = 34640-5] Goal Plan of Care Note [code = 94080-3] Goal Plan of Care Note [code = 89816-4] Goal Plan of Care Note [code = 50749-0] Goal Plan of Care Note [code = 03288-6] Goal Plan of Care Note [code = 23111-8] Goal Plan of Care Note [code = 74057-5] Goal Plan of Care Note [code = 48360-9] Goal Plan of Care Note [code = 48443-6] Goal Plan of Care Note [code = 71590-7] Goal Plan of Care Note [code = 44066-1] Goal Plan of Care Note [code = 11931-2] Goal Plan of Care Note [code = 93098-7] Goal Plan of Care Note [code = 52034-3] Goal Plan of Care Note [code = 51215-8] Goal Plan of Care Note [code = 93393-2] Goal Plan of Care Note [code = 79820-9] Goal Plan of Care Note [code = 76044-6] Goal Plan of Care Note [code = 82290-9] Goal Plan of Care Note [code = 14347-5] Goal Plan of Care Note [code = 53786-4] Encounters Start Date/Time End Date/Time Encounter Type Admission Type Attending Clinicians Care Facility Care Department Encounter ID Source 2024-10-30 10:25:00 Outpatient Stuart Valles [facility] [id number] [facility] 2024-11-05 00:00:00 2024-11-05 00:00:00 Outpatient MAGALIE DALY SHELBY PATTERSON [id number] Shelby Olvera 2024-10-30 00:00:00 2024-10-30 00:00:00 (TEL) [facility] [id number] [facility] 2024-10-12 19:55:00 2024-10-12 22:49:00 Emergency X SARMAD RASHID SHINTA [facility] [id number] [facility] 2024-10-12 19:55:00 2024-10-12 22:49:00 Emergency Sarmad Rashid MDZAN AT [facility] 1.2.840.114 350.1.13.10 4.2.7.2.686 [id number] [facility] 2024-09-24 00:00:00 2024-09-24 00:00:00 Outpatient DALY [facility]JIAS [id number] [facility]24-08-26 00:00:00 2024-08-26 00:00:00 Outpatient DALY MEJIAS [id number] [facility] 2024-02-17 11:24:53 2024-02-17 11:24:53 Outpatient SFA SFA 0513 Óscar Zavala 2024-02-13 16:21:03 2024-02-13 16:21:03 Outpatient SFA SFA [id number] Óscar Rose Lucas 2024-02-13 00:00:00 2024-02-13 00:00:00 Outpatient Visit SFA [id number] Óscar Zavala 2023-12-24 10:45:00 2023-12-24 10:45:00 Outpatient CELESTINAKathleenDALY [id number] [facility] 2023-12-17 16:47:51 2023-12-17 16:47:51 Outpatient SFA SFA 0312 Óscar Zavala 2023-12-11 14:22:41 2023-12-11 14:22:41 Outpatient SFA SFA [id number] Óscar Zavala 2023-11-18 11:00:00 2023-11-18 11:00:00 Outpatient PREZASDALY SHE[facility]BY [id number] [facility] 2023-10-17 00:00:00 2023-10-17 00:00:00 Outpatient PREZASDALY SHELBY [id number] [facility] 2023-10-16 00:00:00 2023-10-16 00:00:00 Outpatient PREZASDALY SHELBY [id number] Shelby Olvera 2023-10-15 00:00:00 2023-10-15 00:00:00 Outpatient PREZADALY Wang SHELBY [id number] [facility] 2023-10-14 09:45:00 2023-10-14 09:45:00 Outpatient LABGera PATTERSON SHELBY [id number] [facility] 2023-10-14 08:45:00 2023-10-14 08:45:00 Outpatient PREZADALY Wang SHELBY [id number] Shelby Olvera 2023-08-14 11:42:13 2023-08-14 11:42:13 Outpatient SFA [facility] [id number] Óscar Zavala 2023-07-09 15:49:57 2023-07-09 15:49:57 Outpatient SFA SFA 1003 Óscar Zavala 2023-04-26 00:00:00 2023-04-26 00:00:00 Orders Only Doctor Unassigned, Osseo [facility] 1.2.840.114 350.1.13.10 4.2.7.2.686 [id number] [facility] 2023-04-23 10:17:21 2023-04-23 10:17:21 Outpatient SFA SFA [id number] Óscar Zavala 2023-04-17 00:00:00 2023-04-17 00:00:00 Orders Only Doctor Unassigned, Osseo [facility] 1.2.840.114 350.1.13.10 4.2.7.2.686 [id number] [facility] 2023-02-08 08:35:00 2023-02-08 12:02:00 Emergency X Maricarmen TALAVERA [facility] ERT [id number] [facility] 2023-02-08 08:35:00 2023-02-08 12:02:00 Emergency Maricarmen Talavera [facility] 1.2840.114 350.1.13.10 4.2.7.2.686 [id number] [facility] 2023-02-08 00:00:00 2023-02-08 00:00:00 Patient Secure Msg Doctor Unassigned, [place]seo [facility] 1.2840.114 350.1.13.10 4.2.7.2.686 [id number] [facility] 2022-12-17 14:21:59 2022-12-17 14:21:59 Outpatient SFA [facility] [id number] Óscar Zavala 2022-11-28 16:34:00 2022-11-28 18:21:00 Emergency X JOHN MAHARAJ [facility] ERT [id number] [facility] 2022-11-28 16:34:00 2022-11-28 18:21:00 Emergency John Maharaj [facility] 1.2840.114 350.1.13.10 4.2.7.2.686 [id number] [facility] 2022-11-28 13:54:29 2022-11-28 13:54:29 Outpatient SFA [facility] [id number] Óscar Zavala 2022-11-08 10:17:59 2022-11-08 10:17:59 Outpatient SFA [facility] [id number] Óscar Zavala 2022-10-30 08:40:52 2022-10-30 08:40:52 Outpatient SFA [facility] [id number] Óscar Zavala 2022-10-23 17:01:52 2022-10-23 17:01:52 Outpatient SFA [facility] [id number] Óscar Zavala 2022-10-23 00:00:00 2022-10-23 00:00:00 Outpatient Visit [id number] 2022-09-16 14:58:00 2022-09-16 19:08:00 Emergency X DANNIELLE ARECHIGA [facility] ERT [id number] [facility] 2022-09-16 14:58:00 2022-09-16 19:08:00 Emergency Dannielle Arechiga [facility] 1..840.114 350.1.13.10 4.2.7.2.686 [id number] [facility] 2022-08-15 10:49:03 2022-08-15 10:49:03 Outpatient SFA [facility] 1109 Óscar Zavala 2022-07-02 00:00:00 2022-07-02 00:00:00 Outpatient Visit [id number] [id number] [id number] 2022-06-25 20:19:00 2022-06-25 21:54:00 Emergency X EBENEZER NICHOLSON [facility] ERT [id number] [facility] 2022-06-25 20:19:00 2022-06-25 21:54:00 Emergency Ebenezer Nicholson A [facility] 1..840.114 350.1.13.10 4.2.7.2.686 [id number] [facility] 2022-06-05 00:00:00 2022-06-05 00:00:00 Outpatient Visit [id number] [id number] 2022-05-07 00:00:00 2022-05-07 00:00:00 Outpatient Visit [id number]-[id number] 95debf 2022-04-09 22:07:00 2022-04-09 22:08:00 Emergency X MYNORDARIEL [facility] ERT [id number] [facility] 2022-04-09 22:07:00 2022-04-09 22:08:00 Emergency Jessie [facility] 1.2.840.114 350.1.13.10 4.2.7.2.686 [id number] [facility] 2021-12-06 21:21:00 2021-12-07 01:08:00 Emergency X LOI, CODY [facility] ERT [id number] [facility] 2021-12-06 21:21:00 2021-12-07 01:08:00 Emergency Eladio Monsivais [facility] 1.2.840.114 350.1.13.10 4.2.7.2.686 [id number] [facility] 2021-06-23 22:09:00 2021-06-23 22:10:00 Emergency Yolanda Bass [facility] 1.2.840.114 350.1.13.10 4.2.7.2.686 [id number] [facility] 2021-06-23 21:42:00 2021-06-23 21:42:00 Emergency X YOLANDA BASS [facility] ERT [id number] [facility] 2021-03-05 17:25:00 2021-03-05 18:39:00 Emergency Vonnie Nathan [facility] 1.2.840.114 350.1.13.10 4.2.7.2.686 [id number] [facility] 2021-03-05 17:25:00 2021-03-05 18:39:00 Emergency X VONNIE NATHAN [facility] ERT [id number] [facility] 2020-12-17 11:09:00 2020-12-17 12:55:00 Emergency Hermilo Jeffery [facility] 1.2.840.114 350.1.13.10 4.2.7.2.686 [id number] [facility] 2020-12-17 11:09:00 2020-12-17 12:55:00 Emergency X HERMILO JEFFERY [facility] ERT [id number] [facility] 2020-10-30 06:26:00 2020-10-30 09:25:00 Emergency Kt Ratliff [facility] 1.2.840.114 350.1.13.10 4.2.7.2.686 [id number] [facility] 2020-10-30 06:22:00 2020-10-30 06:22:00 Emergency X [facility] ERT [id number] [facility] 2020-09-26 15:22:00 2020-09-26 19:20:00 Emergency Carie Chanel [facility] 1.2.840.114 350.1.13.10 4.2.7.2.686 [id number] [facility] 2020-09-26 15:22:00 2020-09-26 19:20:00 Emergency X CARIE CHANEL [facility] ERT [id number] [facility] 2020-09-01 16:25:00 2020-09-01 20:55:00 Emergency Luisito Chavis [facility] 1.2.840.114 350.1.13.10 4.2.7.2.686 [id number] [facility] 2020-09-01 16:25:00 2020-09-01 16:25:00 Emergency X LUISITO CHAVIS [facility] ERT [id number] [facility] 2020-09-01 00:00:00 2020-09-01 00:00:00 Nurse Triage yL Yepez [facility] 1.2.840.114 350.1.13.10 4.2.7.2.686 [id number] [facility] 2020-08-08 00:00:00 2020-08-08 00:00:00 Letter (Out) Mckayla Masterson [facility] 1.2.840.114 350.1.13.10 4.2.7.2.686 [id number] [facility] 2020-07-25 20:28:00 2020-07-25 23:58:00 Emergency Yolanda Bass [facility] 1.2.840.114 350.1.13.10 4.2.7.2.686 [id number] [id number] [facility] 2020-07-25 19:37:00 2020-07-25 19:37:00 Emergency X [facility] ERT [id number] [facility] 2020-07-05 00:00:00 2020-07-05 00:00:00 Orders Only Doctor Unassigned, Osseo [facility] 1.2.840.114 350.1.13.10 4.2.7.2.686 [id number] [facility] 2018-07-15 08:45:00 2018-07-15 08:45:00 Outpatient Erick ferrer [facility] [id number] [facility] 2018-01-07 14:30:00 2018-01-07 14:30:00 Outpatient [facility] [id number] [facility] Results Test Description Test Time Test Comments Results Result Co mments Source LIPID [id number] 03:31:26* Test Item Value Reference Range Interpretation [...] SPECIMENS. FOR MOREINFORMATION, SEE CLIENT ANNOUNCEMENT AT [email or web address] RISK RATIO LDL/HDL (test code = 2238) 2.18 RATIO <3.22 UNLESS OTHERW ISE INDICATED, ALL TESTING PERFORMED AT [facility] [address] [place] [address] PROCESS CONTROL OPERATOR: JOSE MORALES M.D. CLIA NUMBER [id number] [facility] [place]. [id number] HEMOGLOBIN [id number] 02:53:39* Test Item Value Reference Range Interpretation Comme nts HEMOGLOBIN A1c (test code = 64838) 11.7 % 4.2-5.6 H [employer] GUIDELINES FOR HGB A1C: [...] MG/DL eGFR (2020 CKD-EPI) (test code = 60476) 109 ML/MIN/1.73 CALC BUN/CREAT (test code = [...] code = 2219) 19 U/L Óscar Rose StratfordLIPID PANEL [ADDED]2024-02-18 00:00:00* Test Item Value Reference Range Interpretation Comme nts CHOLESTEROL (test code = 2210) 207 MG/DL TRIGLYCERIDES (test code = 2232) 145 MG/DL HDL CHOLESTEROL (test code = 2220) 57 MG/DL CALC LDL CHOL (test code = 2237) 124 MG/DL RISK RATIO LDL/HDL (test cod e = 2238) 2.18 RATIO Óscar ZavalaHEMOGLOBIN [id number] 00:00:00* Test Item Value Reference Range Interpretation Comme nts HEMOGLOBIN A1c (test code = 76381) 11.7 % Óscar Rose LucasCOMPREHENSIVE METABOLIC [id number] 10:46:21* Test Item Value Reference Range Interpretation Comme nts GLUCOSE (test code = 2217) 173 MG/DL 70-99 H BUN (test code = 2208) 7 MG/DL 6-20 CREATININE (test code = 2214) 0.56 MG/DL 0.60-1.30 L eGFR (2020 CKD-EPI) (test code = 02036) 110 ML/MIN/1.73 >60 CALC BUN/CREAT (test code = 2235) 13 RATIO 6-28 SODIUM (test code = 223) 142 MEQ/L 133-146 POTASSIUM (test code = 2228) 4.6 MEQ/L 3.5-5.4 CHLORIDE (test code = 2215) 102 MEQ/L 95-107 CARBON DIOXIDE (test code = 2206) 27 MEQ/L 19-31 CALCIUM (test code = 220) 9.7 MG/DL 8.5-10.5 PROTEIN, TOTAL (test code = 222) 7.1 G/DL 6.1-8.3 ALBUMIN (test code = 220) 4.2 G/DL 3.5-5.2 CALC GLOBULIN (test code [...] 5-40 UNLESS OTHERWISE INDICATED, [facility] [address] [place] [address] PROCESS CONTROL OPERATOR: KEVIN FRANCO M.D. CLIA NUMBER [id number] [facility] [place]. [id number] LIPID [id number] 10:46:21* Test Item Value Reference Range Interpretation Comme nts CHOLESTEROL (test code = 2210) 199 MG/DL <200 TRIGLYCERIDES (test code = 2232) 149 MG/DL <150 HDL CHOLESTEROL (test code = 2220) 58 MG/DL >39 CALC LDL CHOL (test code = 223) 115 MG/DL <100 H NOTE: CALCULATED LDL IS BASED ON JASPER-GOLDMAN METHOD WHICHINCLUDES ADJUSTABLE TRIGLYCERIDE:VLDL CHOLESTEROL RATIO.THIS FACTOR VARIES BY MEASURED TRIGLYCERIDE AND NON-HDLCHOLESTEROL CONCENTRATIONS WITH INCREASED CALCULATED LDL SEENIN HIGHER TRIGLYCERIDE OR LOWER NON-HDL SPECIMENS. FOR MOREINFORMATION, SEE CLIENT ANNOUNCEMENT AT [email or web address] RISK RATIO LDL/HDL (test code = 2238) 1.98 RATIO <3.22 HEMOGLOBIN [id number] 07:47:20* Test Item Value Reference Range Interpretation Comme [facility] HEMOGLOBIN A1c (test code = 93205) 12.0 % 4.2-5.6 H [employer] GUIDELINES FOR HGB A1C: [...] CONSIDER ALTERNATE TESTING OR LABORATORY CONSULTATION. LIPID [id number] 00:00:00* Test Item Value Reference Range Interpretation Comme nts CHOLESTEROL (test code = 2210) 199 MG/DL TRIGLYCERIDES (test code = 2232) 149 MG/DL HDL CHOLESTEROL (test code = 2220) 58 MG/DL CALC LDL CHOL (test code = 2237) 115 MG/DL RISK RATIO LDL/HDL (test cod e = 2238) 1.98 RATIO Óscar ZavalaCOMPREHENSIVE METABOLIC [id number] 00:00:00* Test Item Value Reference Range Interpretation Comme nts GLUCOSE (test code = 2217) 173 MG/DL BUN (test code = 2208) 7 MG/DL CREATININE (test code = 2214) 0.56 MG/DL eGFR (2020 CKD-EPI) (test code = 26576) 110 ML/MIN/1.73 CALC BUN/CREAT (test code = [...] code = 2219) 15 U/L Óscar ZavalaHEMOGLOBIN [id number] 00:00:00* Test Item Value Reference Range Interpretation Comme [facility] HEMOGLOBIN A1c (test code = 65233) 12.0 % Óscar Rose StratfordPOCT GLUCOSE (AUTOMATED)2021-12-07 07:06:55* Test Item Value Reference Range Interpretation Comme [facility] POCT GLU (test code = 2616863512) 292 mg/dL 70-110 H Lab Interpretation (test cod e = 13866-3) Abnormal [facility] GLUCOSE (AUTOMATED)2021-12-07 04:55:44* Test Item Value Reference Range Interpretation Comme [facility] POCT GLU (test code = 1183120368) 440 mg/dL 70-110 H Lab Interpretation (test cod e = 39457-5) Abnormal [facility]. METABOLIC PANEL (28175)2021-12-07 04:40:58* Test Item Value Reference Range Interpretation Comme nts NA (test code = 0744427236) 133 mmol/L 135-145 L K (test code = 0442225343) 4.2 mmol/L 3.5-5.0 CL (test code = 7955275988) 97 mmol/L 98-108 L CO2 TOTAL (test code = 1417587786) 25 mmol/L 23-31 AGAP (test code = 7988842766) 2-16 BUN (test code = 4360821430) 11 mg/dL 7-23 GLUCOSE (test code = 6138173698) 519 mg/dL 70-110 HH CREATININE (test code = 5410482508) 0.65 mg/dL 0.50-1.04 TOTAL BILI (test code = 4869172627) 0.4 mg/dL 0.1-1.1 CALCIUM (test code = 1669509292) 8.8 mg/dL 8.6-10.6 T PROTEIN (test code = 4001453366) 6.9 g/dL 6.3-8.2 ALBUMIN (test code = 4366091977) 3.9 g/dL 3.5-5.0 ALK PHOS (test code = 8113759146) 113 U/L 34-122 ALTv (test code = 1742-6) 25 U/L 5-35 AST(SGOT) (test code = 0243835015) 32 U/L 13-40 eGFR (test code = 7462511631) mL/min/1.73m2 MATTHEW (test code = MATTHEW) Association [...] imaging tests). Lab Interpretation (test code = 79366-6) [facility]normal [facility]JAGDEEPN [id number] 04:33:26* Test Item Value Reference Range Interpretation Comments TROPONIN I (test code = 8949590781) <0.012 See_Comment [Automated message] The system which [...] of biotin. Lab Interpretation (test code = 94835-2) Normal [facility] HospitalPROT[facility] / [id number] 04:13:03* Test Item Value Reference Range Interpretation Comme nts PROTIME PATIENT (test code = 5964-2) See_Comment [Automated [employer]] The system which generated this result transmitted reference range: 12.0 - 14.7 Seconds. The reference range was not used to interpret this result as normal/abnormal. INR (test code = 6301-6) Normal INR <1.1; Warfarin Therapeutic range 2.0 to 3.0 or 2.5 to 3.5, depending upon the indications. Lab Interpretation (test code = 08729-6) Normal [facility] HospitalCBC WITH [id number] 04:06:26* Test Item Value Reference Range Interpretation Comme [facility] WBC (test code = 6690-2) See_Comment [Automated [employer]] The system which generated this result transmitted reference range: 4.30 - 11.10 10*3/?L. The reference range was not used to interpret this result as normal/abnormal. RBC (test code = 789-8) See_Comment [Automated [employer]] The system which generated this result transmitted [...] 33.3 g/dL 31.6-35.1 RDW-SD (test code = 19346-4) 39.2 fL 39.0-49.9 RDW-CV (test code = 788-0) 12.2 % 12.0-15.5 PLT (test code = 777-3) See_Comment [Automated messa ge] The system which generated this result transmitted reference range: 166 - 358 10*3/?L. The reference range was not used to interpret this result as normal/abnormal. MPV (test code = 82813-3) 10.4 fL 9.5-12.9 NRBC/100 WBC (test code = 3230512764) See_Comment [Automated me ssage] The system which generated this result transmitted reference range: 0.0 - 10.0 /100 WBCs. The reference range was not used to interpret this result as normal/abnormal. NRBC x10^3 (test code = 5747213219) <0.01 See_Comment [Automated me ssage] The system which generated this result transmitted reference range: 10*3/?L. The reference range was not used to interpret this result as normal/abnormal. GRAN MAT (NEUT) % (test code = 770-8) 45.7 % IMM GRAN % (test code = 1445052167) 0.50 % LYMPH % (test code = 736-9) 38.7 % MONO % (test code = 5905-5) 10.4 % EOS % (test code = 713-8) 4.1 % BASO % (test code = 706-2) 0.6 % GRAN MAT x10^3(ANC) (test code = 1435441852) 3.00 10*3/uL 1.88-7.09 IMM GRAN x10^3 (test code = 6650943201) 0.03 10*3/uL 0.00-0.06 LYMPH x10^3 (test code = 731-0) 2.54 10*3/uL 1.32-3.29 MONO x10^3 (test code = 742-7) 0.68 10*3/uL 0.33-0.92 EOS x10^3 (test code = 711-2) 0.27 10*3/uL 0.03-0.39 BASO x10^3 (test code = 704-7) 0.04 10*3/uL 0.01-0.07 [facility], [id number] 00:00:00* Test Item Value Reference Range Interpretation Comme nts CULTURE, URINE (test code = 63409) SPECIMEN NUMBER: [id number] CULTURE, [id number] 00:00:00* Test Item Value Reference Range Interpretation Comme nts CULTURE, URINE (test code = 04257) SPECIMEN NUMBER: [id number] CULTURE, [id number] 00:00:00* Test Item Value Reference Range Interpretation Comme nts CULTURE, URINE (test code = 50763) SPECIMEN NUMBER: [id number] CULTURE, [id number] 00:00:00* Test Item Value Reference Range Interpretation Comme nts CULTURE, URINE (test code = 74068) SPECIMEN NUMBER: [id number] CULTURE, [id number] 00:00:00* Test Item Value Reference Range Interpretation Comme nts CULTURE, URINE (test code = 07682) SPECIMEN NUMBER: [id number] Óscar F AustinVAGINAL PATHOGENS DNA [id number] 00:00:00* Test Item Value Reference Range Interpretation Comme nts KASSI SPECIES (test code = ) NEGATIVE G. VAGINALIS (test code = 21484) POSITIVE T. VAGINALIS (test code = 01926) NEGATIVE VAGINAL PATHOGENS DNA [id number] 00:00:00* Test Item Value Reference Range Interpretation Comme nts KASSI SPECIES (test code = 48976) NEGATIVE G. VAGINALIS (test code = 55549) POSITIVE T. VAGINALIS (test code = 30408) NEGATIVE VAGINAL PATHOGENS DNA [id number] 00:00:00* Test Item Value Reference Range Interpretation Comme nts KASSI SPECIES (test code = 41207) NEGATIVE G. VAGINALIS (test code = 04072) POSITIVE T. VAGINALIS (test code = 61186) NEGATIVE VAGINAL PATHOGENS DNA [id number] 00:00:00* Test Item Value Reference Range Interpretation Comme nts KASSI SPECIES (test code = 92885) NEGATIVE G. VAGINALIS (test code = 99581) POSITIVE T. VAGINALIS (test code = 29957) NEGATIVE VAGINAL PATHOGENS DNA [id number] 00:00:00* Test Item Value Reference Range Interpretation Comme nts KASSI SPECIES (test code = 45260) NEGATIVE G. VAGINALIS (test code = 46631) POSITIVE T. VAGINALIS (test code = 49965) NEGATIVE Óscar Shook MAMM BILATERAL HERNANDEZ CAD [id number] 08:00:36 Name: Stew : 1970 Sex: F - DIAG MAMM BILATERAL HERNANDEZ CAD DIGITALBILATERAL DIGITAL DIAGNOSTIC MAMMOGRAM 3D/2D WITH CAD: 04/06/2021LINICAL: Abnormal Report from CT scan. Digital breast tomosynthesis was performed in addition to routine CC and MLO views. Current mammographic images were evaluated by [employer] CAD (computer-aided detection) software. Comparison is made to exam dated 04/25/2015 mammogram - [facility]. The tissue of both breasts is [...] to exam dated 04/25/2015 mammogram - [facility]. Real-time ultrasound of both breasts and both axilla and clinical breast exam were performed. No abnormalities were seen sonographically in either breast or either axilla. Clinical breast exam was unremarkable.IMPRESSION: NEGATIVE There is no sonographic evidence of malignancy. Resume annual screening mammography in one year. Carmel Hensley M.D. dm/:04/07/2021 08:00:36 Entry: cheikh Ruth 108:18:04Imaging Technologist: Bonnie Esteban FW, [facility]- FWletter sent: BIRADS 1-2 Combo FU Letter Mammogram BI-RADS: 0 Incomplete: Additional Imaging Evaluation Needed Ultrasound BI-RADS: 1 NegativeBREAST ULTRASOUND [id number] 08:00:36 Name: Stew : 1970 Sex: F - DIAG MAMM BILATERAL HERNANDEZ CAD DIGITALBILATERAL DIGITAL DIAGNOSTIC MAMMOGRAM 3D/2D WITH CAD: 04/06/2021LINICAL: Abnormal Report from CT scan. Digital breast tomosynthesis was performed in addition to routine CC and MLO views. Current mammographic images were evaluated by [employer] CAD (computer-aided detection) software. Comparison is made to exam dated 04/25/2015 mammogram - [facility]. The tissue of both breasts is heterogeneously dense. This may lower the sensitivity of mammography. There are benign calcifications in both breasts. No suspicious mass, architectural distortion, malignant type calcification, or lymph node abnormality detected. INCOMPLETE: ADDITIONAL IMAGING EVALUATION NEEDEDBilateralultrasound pending for additional evaluation. - BREAST ULTRASOUND BILATERALULTRASOUND OF BOTH BREASTS AND BOTH AXILLA: 04/06/2021omparison is made to exam dated 04/25/2015 mammogram - [facility]. Real-time ultrasound of both breasts and both axilla and clinical breast exam were perfor med. No abnormalities were seen sonographically in either breast or either axilla. Clinical breast exam was unremarkable.IMPRESSION: NEGATIVE There is no sonographic evidence of malignancy. Resume annual screening mammography in one year. Carmel Hensley M.D. dm/:04/07/2021 08:00:36 Entry: lc - 04/12/2021 08:18:04Imaging Technologist: Bonnie Esteban FW, [facility]-FWletter sent: BIRADS 1-2 Combo FU Letter Mammogram BI-RADS: 0 Incomplete: Additional Imaging Evaluation Needed Ultrasound BI-RADS: 1 NegativeH. PYLORI (BREATH) 2021-03-04 00:00:00* Test Item Value Reference Range Interpretation Comme nts H. PYLORI (BREATH) (test cod e = 38724) POSITIVE H. PYLORI (BREATH)2021-03-04 00:00:00* Test Item Value Reference Range Interpretation Comme nts H. PYLORI (BREATH) (test cod e = 95590) POSITIVE H. PYLORI (BREATH)2021-03-04 00:00:00* Test Item Value Reference Range Interpretation Comme nts H. PYLORI (BREATH) (test cod e = 53945) POSITIVE H. PYLORI (BREATH)2021-03-04 00:00:00* Test Item Value Reference Range Interpretation Comme nts H. PYLORI (BREATH) (test cod e = 84775) POSITIVE H. PYLORI (BREATH)2021-03-04 00:00:00* Test Item Value Reference Range Interpretation Comme nts H. PYLORI (BREATH) (test cod e = 46441) POSITIVE Óscar [facility]avalaSAINT [facility] W/AUTO [id number] 00:00:00* Test Item Value Reference Range Interpretation [...] (test code = 1015) 387 K/UL HEMOGLOBIN [id number] 00:00:00* Test Item Value Reference Range Interpretation Comme nts HEMOGLOBIN A1c (test code = 19072) 11.1 % LIPID [id number] 00:00:00* Test Item Value Reference Range Interpretation Comme nts CHOLESTEROL (test code = 2210) 185 MG/DL TRIGLYCERIDES (test code = 2232) 190 MG/DL HDL CHOLESTEROL (test code = 2220) 49 MG/DL CALC LDL CHOL (test code = 2237) 105 MG/DL RISK RATIO LDL/HDL (test cod e = 2238) 2.14 RATIO COMPREHENSIVE METABOLIC [id number] 00:00:00* Test Item Value Reference Range Interpretation Comme nts GLUCOSE (test code = 2217) 371 MG/DL BUN (test code = 2208) 11 MG/DL CREATININE (test code = 2214) 0.61 MG/DL eGFR AMER. (test cod e = 55083) 123 ML/MIN/1.73 eGFR NON- AMER. (test code = 60327) 106 ML/MIN/1.73 CALC BUN/CREAT (test code = [...] ALT (test code = 2219) 20 U/L [id number] 00:00:00* Test Item Value Reference Range Interpretation Comme nts TSH, THIRD GENERATION (test code = 2821) 1.180 UIU/ML H. PYLORI (BREATH)2021-01-20 00:00:00* Test Item Value Reference Range Interpretation Comme nts H. PYLORI (BREATH) (test cod e = 92721) POSITIVE CBC W/AUTO [id number] 00:00:00* Test Item Value Reference Range Interpretation [...] (test code = 1015) 387 K/UL HEMOGLOBIN [id number] 00:00:00* Test Item Value Reference Range Interpretation Comme nts HEMOGLOBIN A1c (test code = 39275) 11.1 % LIPID [id number] 00:00:00* Test Item Value Reference Range Interpretation Comme nts CHOLESTEROL (test code = 2210) 185 MG/DL TRIGLYCERIDES (test code = 2232) 190 MG/DL HDL CHOLESTEROL (test code = 2220) 49 MG/DL CALC LDL CHOL (test code = 2237) 105 MG/DL RISK RATIO LDL/HDL (test cod e = 2238) 2.14 RATIO COMPREHENSIVE METABOLIC [id number] 00:00:00* Test Item Value Reference Range Interpretation Comme nts GLUCOSE (test code = 2217) 371 MG/DL BUN (test code = 2208) 11 MG/DL CREATININE (test code = 2214) 0.61 MG/DL eGFR AMER. (test cod e = 24140) 123 ML/MIN/1.73 eGFR NON- AMER. (test code = 12484) 106 ML/MIN/1.73 CALC BUN/CREAT (test code = [...] ALT (test code = 2219) 20 U/L [id number] 00:00:00* Test Item Value Reference Range Interpretation Comme nts TSH, THIRD GENERATION (test code = 2821) 1.180 UIU/ML H. PYLORI (BREATH)2021-01-20 00:00:00* Test Item Value Reference Range Interpretation Comme nts H. PYLORI (BREATH) (test cod e = 83955) POSITIVE CBC W/AUTO [id number] 00:00:00* Test Item Value Reference Range Interpretation [...] (test code = 1015) 387 K/UL HEMOGLOBIN [id number] 00:00:00* Test Item Value Reference Range Interpretation Comme nts HEMOGLOBIN A1c (test code = 83909) 11.1 % LIPID [id number] 00:00:00* Test Item Value Reference Range Interpretation Comme nts CHOLESTEROL (test code = 2210) 185 MG/DL TRIGLYCERIDES (test code = 2232) 190 MG/DL HDL CHOLESTEROL (test code = 2220) 49 MG/DL CALC LDL CHOL (test code = 2237) 105 MG/DL RISK RATIO LDL/HDL (test cod e = 2238) 2.14 RATIO COMPREHENSIVE METABOLIC [id number] 00:00:00* Test Item Value Reference Range Interpretation Comme nts GLUCOSE (test code = 2217) 371 MG/DL BUN (test code = 2208) 11 MG/DL CREATININE (test code = 2214) 0.61 MG/DL eGFR AMER. (test cod e = 18202) 123 ML/MIN/1.73 eGFR NON- AMER. (test code = 27401) 106 ML/MIN/1.73 CALC BUN/CREAT (test code = [...] ALT (test code = 2219) 20 U/L [id number] 00:00:00* Test Item Value Reference Range Interpretation Comme nts TSH, THIRD GENERATION (test code = 2821) 1.180 UIU/ML H. PYLORI (BREATH)2021-01-20 00:00:00* Test Item Value Reference Range Interpretation Comme nts H. PYLORI (BREATH) (test cod e = 49057) POSITIVE CBC W/AUTO [id number] 00:00:00* Test Item Value Reference Range Interpretation [...] (test code = 1015) 387 K/UL HEMOGLOBIN [id number] 00:00:00* Test Item Value Reference Range Interpretation Comme nts HEMOGLOBIN A1c (test code = 98550) 11.1 % LIPID [id number] 00:00:00* Test Item Value Reference Range Interpretation Comme nts CHOLESTEROL (test code = 2210) 185 MG/DL TRIGLYCERIDES (test code = 2232) 190 MG/DL HDL CHOLESTEROL (test code = 2220) 49 MG/DL CALC LDL CHOL (test code = 2237) 105 MG/DL RISK RATIO LDL/HDL (test cod e = 2238) 2.14 RATIO COMPREHENSIVE METABOLIC [id number] 00:00:00* Test Item Value Reference Range Interpretation Comme nts GLUCOSE (test code = 2217) 371 MG/DL BUN (test code = 2208) 11 MG/DL CREATININE (test code = 2214) 0.61 MG/DL eGFR AMER. (test cod e = 55802) 123 ML/MIN/1.73 eGFR NON- AMER. (test code = 75040) 106 ML/MIN/1.73 CALC BUN/CREAT (test code = [...] ALT (test code = 2219) 20 U/L [id number] 00:00:00* Test Item Value Reference Range Interpretation Comme nts TSH, THIRD GENERATION (test code = 2821) 1.180 UIU/ML H. PYLORI (BREATH)2021-01-20 00:00:00* Test Item Value Reference Range Interpretation Comme nts H. PYLORI (BREATH) (test cod e = 19038) POSITIVE H. PYLORI (BREATH)2021-01-20 00:00:00* Test Item Value Reference Range Interpretation Comme nts H. PYLORI (BREATH) (test cod e = 48275) POSITIVE Óscar Rose LucasCBC W/AUTO [id number] 00:00:00* Test Item Value Reference Range Interpretation [...] code = 1015) 387 K/UL Óscar ZavalaHEMOGLOBIN [id number] 00:00:00* Test Item Value Reference Range Interpretation Comme nts HEMOGLOBIN A1c (test code = 68811) 11.1 % Óscar ZavalaLIPID [id number] 00:00:00* Test Item Value Reference Range Interpretation Comme nts CHOLESTEROL (test code = 2210) 185 MG/DL TRIGLYCERIDES (test code = 2232) 190 MG/DL HDL CHOLESTEROL (test code = 2220) 49 MG/DL CALC LDL CHOL (test code = 2237) 105 MG/DL RISK RATIO LDL/HDL (test cod e = 2238) 2.14 RATIO Óscar ZavalaCOMPREHENSIVE METABOLIC [id number] 00:00:00* Test Item Value Reference Range Interpretation Comme nts GLUCOSE (test code = 2217) 371 MG/DL BUN (test code = 2208) 11 MG/DL CREATININE (test code = 2214) 0.61 MG/DL eGFR AMER. (test cod e = 62630) 123 ML/MIN/1.73 eGFR NON- AMER. (test code = 82263) 106 ML/MIN/1.73 CALC BUN/CREAT (test code = [...] (test code = 2219) 20 U/L Óscar [id number] 00:00:00* Test Item Value Reference Range Interpretation Comme maci TSH, THIRD GENERATION (test code = 2821) 1.180 UIU/ML Óscar ZavalaCOVID-19 (ID NOW RAPID TESTING)2020-12-17 18:20:32* Test Item Value Reference Range Interpretation Comme maci SARS-CoV-2 Rapid ID NOW (test code = 02697-8) Not Detected Not Detected MATTHEW (test code = MATTHEW) ID NOW COVID-19 As say is an isothermal nucleic acid amplification test intended for the qualitative detection of nucleic acid from SARS-CoV-2 viral RNA in nasopharyngeal (AERODYNAMICS TEACHER) specimens. It is used under Emergency Use [...] clinically indicated. Lab Interpretation (test code = 35537-1) [facility] 18:20:17* Test Item Value Reference Range Interpretation Comme nts APPEARANCE (test code = 4065943301) Clear Clear COLOR (test code = 2731274562) Yellow Yellow PH (test code = 7743457761) 4.8-8.0 SP GRAVITY (test code = 5416923427) 1.003-1.030 H GLU U QUAL (test code = 3442451283) 500 mg/dL Normal A BLOOD (test code = 2487350382) Negative Negative KETONES (test code = 8778875957) 5 mg/dL Negative A PROTEIN (test code = 2887-8) 30 mg/dL Negative A UROBILIN (test code = 9603110254) Normal Normal BILIRUBIN (test code = 2996820332) Negative Negative NITRITE (test code = 1423187873) Negative Negative LEUK CHASITY (test code = 5392529629) 25/uL Negative A RBC/HPF (test code = 4669199802) See_Comment H [[employer]ated [employer]] The system which generated this result transmitted reference range: 0 - 3 HPF. The reference range was not used to interpret this result as normal/abnormal. WBC/HPF (test code = 6115735346) See_Comment [Automated [employer]] The system which generated this result transmitted reference range: 0 - 5 HPF. The reference range was not used to interpret this result as normal/abnormal. BACTERIA (test code = 5712016945) Few Negative A SQ EPITH (test code = 4097246494) HPF Lab Interpretation (test code = 05915-1) [facility]B, T.PRO, BILI T, BU/BC, ALT, AST, ALK PHOS)2020-12-17 18:07:11* Test Item Value Reference Range Interpretation Comme nts TOTAL BILI (test code = 0561612391) 0.6 mg/dL 0.1-1.1 BILI UNCON (test code = 7522774256) 0.5 mg/dL 0.1-1.1 BILI CONJ (test code = 2215002985) 0.0 mg/dL 0.0-0.3 T PROTEIN (test code = 4434667188) 8.2 g/dL 6.3-8.2 ALBUMIN (test code = 8554796503) 4.4 g/dL 3.5-5.0 ALK PHOS (test code = 4149836102) 134 U/L 34-122 H ALTv (test code = 1742-6) 29 U/L 5-35 AST(SGOT) (test code = 6615375954) 35 U/L 13-40 Lab Interpretation (test cod e = 69579-5) Abnormal [facility] Metabolic Panel (NA, K, CL, CO2, GLUCOSE, BUN, CREATININE, CA)2020-12-17 18:06:51* Test Item Value Reference Range Interpretation Comme nts NA (test code = 7967377373) 135 mmol/L 135-145 K (test code = 7161410592) 4.4 mmol/L 3.5-5.0 CL (test code = 8355127164) 96 mmol/L 98-108 L CO2 TOTAL (test code = 3581581161) 31 mmol/L 23-31 AGAP (test code = 7208349480) 2-16 BUN (test code = 0550521097) 13 mg/dL 7-23 GLUCOSE (test code = 0957799889) 370 mg/dL 70-110 H CREATININE (test code = 4996394148) 0.50 mg/dL 0.50-1.04 CALCIUM (test code = 1069765239) 9.2 mg/dL 8.6-10.6 eGFR Calculation (Non-) (test code = 9107023255) mL/min/1.73m2 eGFR Calculation () (test code = 7759558263) mL/min/1.73m2 MATTHEW (test code = MATTHEW) Association [...] imaging tests). Lab Interpretation (test code = 44522-5) [facility] [id number] 18:06:51* Test Item Value Reference Range Interpretation Comme [facility] LIPASE (test code = 9192028896) 169 U/L 0-220 Lab Interpretation (test cod e = 10540-3) [facility] 18:05:30* Test Item Value Reference Range Interpretation Comme [facility] APTT Patient (test code = 3173-2) See_Comment [Automated message] The system which generated this result transmitted reference range: 23 - 38 Seconds. The reference range was not used to interpret this result as normal/abnormal. MATTHEW (test code = MATTHEW) The [facility] patient population mean normal value for aPTT is 30 seconds. Lab Interpretation (test code = 44807-3) Normal [facility] HospitalProthrombin Time (PT) / [id number] 18:03:29 * Test Item Value Reference Range Interpretation Comme nts PROTIME PATIENT (test code = 5964-2) See_Comment [Automated Funding Profilesa ge] The system which generated this result transmitted reference range: 12.0 - 14.7 Seconds. The reference range was not used to interpret this result as normal/abnormal. INR (test code = 6301-6) Normal INR <1.1; Warfarin Therapeutic range 2.0 to 3.0 or 2.5 to 3.5, depending upon the indications. Lab Interpretation (test code = 10269-9) Normal [facility] with [id number] 17:55:29* Test Item Value Reference Range Interpretation Comme nts WBC (test code = 6690-2) See_Comment [Automated Funding Profilesa ge] The system which generated this result transmitted reference range: 4.30 - 11.10 10*3/?L. The reference range was not used to interpret this result as normal/abnormal. RBC (test code = 789-8) See_Comment [Automated Funding Profilesa ge] The system which generated this result [...] 32.8 g/dL 31.6-35.1 RDW-SD (test code = 04953-6) 39.1 fL 39.0-49.9 RDW-CV (test code = 788-0) 12.3 % 12.0-15.5 PLT (test code = 777-3) See_Comment H [Automated messa ge] The system which generated this result transmitted reference range: 166 - 358 10*3/?L. The reference range was not used to interpret this result as normal/abnormal. MPV (test code = 64196-6) 10.3 fL 9.5-12.9 NRBC/100 WBC (test code = 1165221511) See_Comment [Automated me ssage] The system which generated this result transmitted reference range: 0.0 - 10.0 /100 WBCs. The reference range was not used to interpret this result as normal/abnormal. NRBC x10^3 (test code = 9276143531) <0.01 See_Comment [Automated messa ge] The system which generated this result transmitted reference range: 10*3/?L. The reference range was not used to interpret this result as normal/abnormal. GRAN MAT (NEUT) % (test code = 770-8) 72.0 % IMM GRAN % (test code = 7749080611) 0.40 % LYMPH % (test code = 736-9) 18.4 % MONO % (test code = 5905-5) 6.4 % EOS % (test code = 713-8) 2.2 % BASO % (test code = 706-2) 0.6 % GRAN MAT x10^3(ANC) (test code = 5248361116) 7.61 10*3/uL 1.88-7.09 H IMM GRAN x10^3 (test code = 6590627580) 0.04 10*3/uL 0.00-0.06 LYMPH x10^3 (test code = 731-0) 1.94 10*3/uL 1.32-3.29 MONO x10^3 (test code = 742-7) 0.68 10*3/uL 0.33-0.92 EOS x10^3 (test code = 711-2) 0.23 10*3/uL 0.03-0.39 BASO x10^3 (test code = 704-7) 0.06 10*3/uL 0.01-0.07 Lab Interpretation (test code = 42247-6) [facility] 1 [id number] 14:56:41.No acute cardiopulmonary abnormality Preliminary Report Dictated [...] this study and agree with the abovereport. [facility] HospitalPOCT [id number] 14:14:00* Test Item Value Reference Range Interpretation Comme nts POCT PREG (test code = 1605) negative On board controls acceptable with C Line (test code = 3574) present Lab Interpretation (test cod e = 64332-5) Normal [facility] HospitalD-[id number] 13:53:00* Test Item Value Reference Range Interpretation Comments D-DIMER (test code = 6680415682) See_Comment H [Automated message] The system which [...] a diagnosis. Lab Interpretation (test code = 70841-6) Abnormal [facility] HospitalPregnancy Test, [id number] 13:40:00* Test Item Value Reference Range Interpretation Comme nts PREG SERUM (test code = 9475868374) Negative MATTHEW (test code = MATTHEW) Less than 10 IU/L. ?If low titer or ectopic is suspected, resubmit specimen in 48-72 hours. [facility] HospitalTroponin [id number] 13:36:00* Test Item Value Reference Range Interpretation Comme [facility] TROPONIN I (test code = 3064488664) <0.012 See_Comment [Automated message] The system which [...] biotin. ? Lab Interpretation (test code = 46450-4) [facility] 13:35:00* Test Item Value Reference Range Interpretation Comme nts APTT Patient (test code = 3173-2) See_Comment [Automated message] The system which generated this result transmitted reference range: 23 - 38 Seconds. The reference range was not used to interpret this result as normal/abnormal. MATTHEW (test code = MATTHEW) The [facility] patient population mean normal value for aPTT is 30 seconds. Lab Interpretation (test code = 58093-2) Normal [facility] HospitalProthrombin Time (PT) / [id number] 13:33:00 * Test Item Value Reference Range Interpretation Comme [facility] PROTIME PATIENT (test code = 5964-2) See_Comment [Automated Funding Profilesa ge] The system which generated this result transmitted reference range: 12.0 - 14.7 Seconds. The reference range was not used to interpret this result as normal/abnormal. INR (test code = 6301-6) Normal INR <1.1; Warfarin Therapeutic range 2.0 to 3.0 or 2.5 to 3.5, depending upon the indications. Lab Interpretation (test code = 87330-0) Normal [facility] HospitalBasi Metabolic Panel (NA, K, CL, CO2, GLUCOSE, BUN, CREATININE, CA)2020-10-30 13:25:00* Test Item Value Reference Range Interpretation Comme [facility] NA (test code = 3736899877) 137 mmol/L 135-145 K (test code = 0489447803) 4.4 mmol/L 3.5-5 CL (test code = 5386042296) 101 mmol/L 98-108 CO2 TOTAL (test code = 7905875379) 28 mmol/L 23-31 AGAP (test code = 7629139977) 2-16 BUN (test code = 9894859364) 12 mg/dL 7-23 GLUCOSE (test code = 2905673137) 195 mg/dL 70-110 H CREATININE (test code = 3430422671) 0.42 mg/dL 0.5-1.04 L CALCIUM (test code = 7589527624) 9.2 mg/dL 8.6-10.6 eGFR Calculation (Non-) (test code = 3533441968) mL/min/1.73m2 eGFR Calculation () (test code = 4021694817) mL/min/1.73m2 MATTHEW (test code = MATTHEW) Association [...] imaging tests). Lab Interpretation (test code = 55159-6) [facility]normal [facility] HospitalHepatic Function Panel (ALB, T.PRO, BILI T, BU/BC, ALT, AST, ALK PHOS)2020-10-30 13:25:00* Test Item Value Reference Range Interpretation Comme nts TOTAL BILI (test code = 6619310874) 1.1 mg/dL 0.1-1.1 BILI UNCON (test code = 1588328445) 0.8 mg/dL 0.1-1.1 BILI CONJ (test code = 8293095117) 0.0 mg/dL 0-0.3 T PROTEIN (test code = 2288468942) 8.2 g/dL 6.3-8.2 ALBUMIN (test code = 6338549738) 4.2 g/dL 3.5-5 ALK PHOS (test code = 5056602217) 109 U/L 34-122 ALTv (test code = 1742-6) 23 U/L 5-35 AST(SGOT) (test code = 9625794930) 35 U/L 13-40 Lab Interpretation (test cod e = 40055-0) Normal [facility] HospitalAD,CLC OR LCC ONLY - INFLUENZA A & B DIRECT [id number] 13:21:00* Test Item Value Reference Range Interpretation Comme nts Influenza A (test code = 52128-3) Negative Negative Influenza B (test code = 78644-9) Negative Negative Lab Interpretation (test cod e = 75048-6) Normal [facility] STREP SCREEN FOR GROUP [id number] 13:21:00* Test Item Value Reference Range Interpretation Comme nts Streptococcus pyogenes (grou p A) antigen (test code = 26063-8) Negative Negative Lab Interpretation (test cod e = 26253-8) Normal [facility] HospitalCOVID-19 (ID NOW RAPID TESTING)2020-10-30 13:18:00* Test Item Value Reference Range Interpretation Comme nts SARS-CoV-2 Rapid ID NOW (test code = 52524-9) Not Detected Not Detected MATTHEW (test code = MATTHEW) ID NOW COVID-19 As say is an isothermal nucleic acid amplification test intended for the qualitative detection of nucleic acid from SARS-CoV-2 viral RNA in nasopharyngeal (AERODYNAMICS TEACHER) specimens. It is used under Emergency Use [...] clinically indicated. Lab Interpretation (test code = 61408-6) Normal [facility] with Molhwsbmqeil2189-01-24 13:05:00* Test Item Value Reference Range Interpretation [...] 32.4 g/dL 31.6-35.1 RDW-SD (test code = 05434-3) 41.0 fL 39-49.9 RDW-CV (test code = 788-0) 12.4 % 12-15.5 PLT (test code = 777-3) See_Comment H [Automated Funding Profilesa ge] The system which generated this result transmitted reference range: 166 - 358 10*3/?L. The reference range was not used to interpret this result as normal/abnormal. MPV (test code = 82686-9) 10.5 fL 9.5-12.9 NRBC/100 WBC (test code = 4623372208) See_Comment [Automated [employer] ssage] The system which generated this result transmitted reference range: 0.0 - 10.0 /100 WBCs. The reference range was not used to interpret this result as normal/abnormal. NRBC x10^3 (test code = 4935113190) <0.01 See_Comment [Automated Funding Profilesa ge] The system which generated this result transmitted reference range: 10*3/?L. The reference range was not used to interpret this result as normal/abnormal. GRAN MAT (NEUT) % (test code = 770-8) 66.0 % IMM GRAN % (test code = 9312105933) 0.40 % LYMPH % (test code = 736-9) 19.5 % MONO % (test code = 5905-5) 9.3 % EOS % (test code = 713-8) 4.2 % BASO % (test code = 706-2) 0.6 % GRAN MAT x10^3(ANC) (test code = 8835423629) 7.63 10*3/uL 1.88-7.09 H IMM GRAN x10^3 (test code = 9786007984) 0.05 10*3/uL 0-0.06 LYMPH x10^3 (test code = 731-0) 2.26 10*3/uL 1.32-3.29 MONO x10^3 (test code = 742-7) 1.08 10*3/uL 0.33-0.92 H EOS x10^3 (test code = 711-2) 0.49 10*3/uL 0.03-0.39 H BASO x10^3 (test code = 704-7) 0.07 10*3/uL 0.01-0.07 Lab Interpretation (test code = 58667-6) [facility] HospitalMAGNESIUM [ADDED]2020-10-12 00:00:00* Test Item Value Reference Range Interpretation Comme nts MAGNESIUM (test code = 2226) 2.0 MG/DL COMPREHENSIVE METABOLIC PANEL [ADDED]2020-10-12 00:00:00* Test Item Value Reference Range Interpretation Comme nts GLUCOSE (test code = 2217) 423 MG/DL BUN (test code = 2208) 11 MG/DL CREATININE (test code = 2214) 0.73 MG/DL eGFR AMER. (test cod e = 83800) 112 ML/MIN/1.73 eGFR NON- AMER. (test code = 03697) 97 ML/MIN/1.73 CALC BUN/CREAT (test code = [...] MG/DL eGFR AMER. (test cod e = 30526) 112 ML/MIN/1.73 eGFR NON- AMER. (test code = 82400) 97 ML/MIN/1.73 CALC BUN/CREAT (test code = [...] MG/DL eGFR AMER. (test cod e = 20301) 112 ML/MIN/1.73 eGFR NON- AMER. (test code = 15439) 97 ML/MIN/1.73 CALC BUN/CREAT (test code = [...] MG/DL eGFR AMER. (test cod e = 22628) 112 ML/MIN/1.73 eGFR NON- AMER. (test code = 42702) 97 ML/MIN/1.73 CALC BUN/CREAT (test code = [...] MG/DL eGFR AMER. (test cod e = 39432) 112 ML/MIN/1.73 eGFR NON- AMER. (test code = 23206) 97 ML/MIN/1.73 CALC BUN/CREAT (test code = [...] code = 2226) 2.0 MG/DL Óscar Rose TecyvwPLYB-AxZ-4 (COVID-19) by RT-PCR (HIGH RISK)2020-10-06 00:00:00* Test Item Value Reference Range Interpretation Comme nts SARS-CoV-2 INTERPRETATION (t est code = 34364) NEGATIVE SOURCE (test code = 31647) NOT SPECIFIED SARS-CoV-2 (COVID-19) by RT-PCR (HIGH RISK)2020-10-06 00:00:00* Test Item Value Reference Range Interpretation Comme nts SARS-CoV-2 INTERPRETATION (t est code = 02472) NEGATIVE SOURCE (test code = 38625) NOT SPECIFIED SARS-CoV-2 (COVID-19) by RT-PCR (HIGH RISK)2020-10-06 00:00:00* Test Item Value Reference Range Interpretation Comme nts SARS-CoV-2 INTERPRETATION (t est code = 69829) NEGATIVE SOURCE (test code = 43421) NOT SPECIFIED SARS-CoV-2 (COVID-19) by RT-PCR (HIGH RISK)2020-10-06 00:00:00* Test Item Value Reference Range Interpretation Comme nts SARS-CoV-2 INTERPRETATION (t est code = 56267) NEGATIVE SOURCE (test code = 28661) NOT SPECIFIED SARS-CoV-2 (COVID-19) by RT-PCR (HIGH RISK)2020-10-06 00:00:00* Test Item Value Reference Range Interpretation Comme nts SARS-CoV-2 INTERPRETATION (t est code = 84797) NEGATIVE SOURCE (test code = 67151) NOT SPECIFIED Óscar Rose AustinXR CHEST 1 [id number] 00:19:17Grossly unchanged streaky opacities associated with known COVID 19pneumonia. Preliminary Report Dictated by Resident: Gurijt Clark MD., have reviewed this study and [...] reviewed this study and agree with the abovereport.[facility] HospitalURINALYSIS 2020-09-26 23:37:00* Test Item Value Reference Range Interpretation Comme nts APPEARANCE (test code = 5855964822) Clear Clear COLOR (test code = 5093667220) Yellow Yellow PH (test code = 2387790883) 4.8-8.0 SP GRAVITY (test code = 4282963209) 1.003-1.030 GLU U QUAL (test code = 3588951463) Normal Normal BLOOD (test code = 8261934471) Negative Negative KETONES (test code = 8386998540) Negative Negative PROTEIN (test code = 2887-8) Negative Negative UROBILIN (test code = 6350471699) Normal Normal BILIRUBIN (test code = 7067256935) Negative Negative NITRITE (test code = 4298351226) Negative Negative LEUK CHASITY (test code = 3518412613) 500/uL Negative A RBC/HPF (test code = 9361017679) See_Comment [Automated messa ge] The system which generated this result transmitted reference range: 0 - 3 HPF. The reference range was not used to interpret this result as normal/abnormal. WBC/HPF (test code = 4543733039) See_Comment H [Automated messa ge] The system which generated this result transmitted reference range: 0 - 5 HPF. The reference range was not used to interpret this result as normal/abnormal. BACTERIA (test code = 1296575447) Few Negative A MUCOUS (test code = 0811726192) Slight Negative LPF A SQ EPITH (test code = 0407712336) HPF TRANS EPI (test code = 3264994808) <1 See_Comment [Automated messa ge] The system which generated this result transmitted reference range: <=1 HPF. The reference range was not used to interpret this result as normal/abnormal. Lab Interpretation (test code = 79716-0) [facility]normal [facility] HospitalTROPONIN [id number] 22:39:00* Test Item Value Reference Range Interpretation Comme nts TROPONIN I (test code = 8903161504) <0.012 See_Comment [Automated message] The system which [...] biotin. ? Lab Interpretation (test code = 74827-9) Normal [facility] HospitalN-TERMINAL [id number] 22:36:00* Test Item Value Reference Range Interpretation Comme nts NT-proBNP (test code = 4039305797) 54 pg/mL See_Comment [Automated message] The system which generated this result transmitted reference range: <=125. The reference range was not used to interpret this result as normal/abnormal. MATTHEW (test code = MATTHEW) Biotin has been reported to cause a negative bias, interpret results relative to patient's use of biotin. Lab Interpretation (test code = 95319-1) Normal [facility] HospitalCOMP. METABOLIC PANEL (16091)2020-09-26 22:28:00* Test Item Value Reference Range Interpretation Comme nts NA (test code = 4991039960) 137 mmol/L 135-145 K (test code = 2550785276) 3.2 mmol/L 3.5-5 L CL (test code = 1264165725) 97 mmol/L 98-108 L CO2 TOTAL (test code = 3089033504) 30 mmol/L 23-31 AGAP (test code = 6208796765) 2-16 BUN (test code = 2452893506) 9 mg/dL 7-23 GLUCOSE (test code = 8587035332) 191 mg/dL 70-110 H CREATININE (test code = 6044494597) 0.52 mg/dL 0.5-1.04 TOTAL BILI (test code = 1614302188) 0.8 mg/dL 0.1-1.1 CALCIUM (test code = 0765437367) 8.9 mg/dL 8.6-10.6 T PROTEIN (test code = 1941518396) 7.4 g/dL 6.3-8.2 ALBUMIN (test code = 7380371617) 4.1 g/dL 3.5-5 ALK PHOS (test code = 2172521318) 98 U/L 34-122 ALTv (test code = 1742-6) 19 U/L 5-35 AST(SGOT) (test code = 7598645826) 21 U/L 13-40 eGFR Calculation (Non-) (test code = 2652745094) mL/min/1.73m2 eGFR Calculation () (test code = 4238736907) mL/min/1.73m2 MATTHEW (test code = MATTHEW) Association [...] imaging tests). Lab Interpretation (test code = 73945-5) [facility] HospitalLIPASE2020-12-21 22:27:00* Test Item Value Reference Range Interpretation Comme nts LIPASE (test code = 6669897866) 90 U/L 0-220 Lab Interpretation (test cod e = 45851-4) Normal [facility] HospitalCBC WITH [id number] 22:26:00* Test Item Value Reference Range Interpretation Comme nts WBC (test code = 6690-2) See_Comment [Automated Funding Profilesa [employer]] The system which generated this result transmitted [...] 32.6 g/dL 31.6-35.1 RDW-SD (test code = 43684-8) 40.6 fL 39-49.9 RDW-CV (test code = 788-0) 12.4 % 12-15.5 PLT (test code = 777-3) See_Comment H [Automated Funding Profilesa ge] The system which generated this result transmitted reference range: 166 - 358 10*3/?L. The reference range was not used to interpret this result as normal/abnormal. MPV (test code = 20162-2) 10.3 fL 9.5-12.9 NRBC/100 WBC (test code = 7999107249) See_Comment [Automated me ssage] The system which generated this result transmitted reference range: 0.0 - 10.0 /100 WBCs. The reference range was not used to interpret this result as normal/abnormal. NRBC x10^3 (test code = 5484350281) <0.01 See_Comment [Automated messa ge] The system which generated this result transmitted reference range: 10*3/?L. The reference range was not used to interpret this result as normal/abnormal. GRAN MAT (NEUT) % (test code = 770-8) 65.8 % IMM GRAN % (test code = 5537821845) 0.50 % LYMPH % (test code = 736-9) 22.4 % MONO % (test code = 5905-5) 8.9 % EOS % (test code = 713-8) 2.1 % BASO % (test code = 706-2) 0.3 % GRAN MAT x10^3(ANC) (test code = 4888264099) 7.21 10*3/uL 1.88-7.09 H IMM GRAN x10^3 (test code = 6336422000) 0.06 10*3/uL 0-0.06 LYMPH x10^3 (test code = 731-0) 2.45 10*3/uL 1.32-3.29 MONO x10^3 (test code = 742-7) 0.98 10*3/uL 0.33-0.92 H EOS x10^3 (test code = 711-2) 0.23 10*3/uL 0.03-0.39 BASO x10^3 (test code = 704-7) 0.03 10*3/uL 0.01-0.07 Lab Interpretation (test code = 52828-3) [facility] HospitalSARS[facility]CoV-[facility] (COVID-19) by RT-PCR (HIGH RISK) 2020-09-25 00:00:00* Test Item Value Reference Range Interpretation Comme nts SARS-CoV-2 INTERPRETATION (t est code = 06004) POSITIVE SOURCE (test code = 48523) NOT SPECIFIED SARS-CoV-2 (COVID-19) by RT-PCR (HIGH RISK)2020-09-25 00:00:00* Test Item Value Reference Range Interpretation Comme nts SARS-CoV-2 INTERPRETATION (t est code = 69759) POSITIVE SOURCE (test code = 48121) NOT SPECIFIED SARS-CoV-2 (COVID-19) by RT-PCR (HIGH RISK)2020-09-25 00:00:00* Test Item Value Reference Range Interpretation Comme nts SARS-CoV-2 INTERPRETATION (t est code = 37294) POSITIVE SOURCE (test code = 13350) NOT SPECIFIED SARS-CoV-2 (COVID-19) by RT-PCR (HIGH RISK)2020-09-25 00:00:00* Test Item Value Reference Range Interpretation Comme nts SARS-CoV-2 INTERPRETATION (t est code = 55702) POSITIVE SOURCE (test code = 26502) NOT SPECIFIED SARS-CoV-2 (COVID-19) by RT-PCR (HIGH RISK)2020-09-25 00:00:00* Test Item Value Reference Range Interpretation Comme nts SARS-CoV-2 INTERPRETATION (t est code = 57899) POSITIVE SOURCE (test code = 36736) NOT SPECIFIED Óscar Rose AustinHI CHEST PULMONARY [id number] 02:11:181. ?No acute pulmonary embolism. PROCEDURE: CT [...] abdomen: Unremarkable. IMPRESSION1. No acute pulmonary embolism. [facility] [id number] 01:20:00* Test Item Value Reference Range Interpretation Comments D-DIMER (test code = 8814612828) See_Comment H [Automated message] The system which [...] a diagnosis. Lab Interpretation (test code = 23568-5) [facility]XR [facility] 1 [id number] 23:44:22Slightly suboptimal lung volumes with perihilar streaky [...] reviewed this study and agree withthe above report.[facility] HospitalCOVID[facility] (ID NOW RAPID TESTING)2020-09-01 23:26:00* Test Item Value Reference Range Interpretation Comme nts SARS-CoV-2 Rapid ID NOW (test code = 72126-5) Positive Not Detected A MATTHEW (test code = MATTHEW) ID NOW COVID-19 As say is an isothermal nucleic acid amplification test intended for the qualitative detection of nucleic acid from SARS-CoV-2 viral RNA in nasopharyngeal (AERODYNAMICS TEACHER) specimens. It is used under Emergency Use [...] clinically indicated. Lab Interpretation (test code = 74709-9) [facility]normal [facility] HospitalADC,CLC OR LCC ONLY - INFLUENZA A & B DIRECT [id number] 23:26:00* Test Item Value Reference Range Interpretation Comme nts Influenza A (test code = 98702-7) Negative Negative Influenza B (test code = 25635-6) Negative Negative Lab Interpretation (test cod e = 42655-2) [facility] HospitalURINALYSIS2020-11-26 23:22:00* Test Item Value Reference Range Interpretation Comme nts APPEARANCE (test code = 9155583843) Clear Clear COLOR (test code = 6118575639) Yellow Yellow PH (test code = 8600423187) 4.8-8.0 SP GRAVITY (test code = 4121985298) 1.003-1.030 GLU U QUAL (test code = 3185841505) 500 mg/dL Normal A BLOOD (test code = 1884548536) Negative Negative KETONES (test code = 5426426374) Negative Negative PROTEIN (test code = 2887-8) 30 mg/dL Negative A UROBILIN (test code = 0580156800) Normal Normal BILIRUBIN (test code = 7012297445) Negative Negative NITRITE (test code = 0076323194) Negative Negative LEUK CHASITY (test code = 9384588059) 250/uL Negative A RBC/HPF (test code = 5681761503) See_Comment H [Automated Funding Profilesa ge] The system which generated this result transmitted reference range: 0 - 3 HPF. The reference range was not used to interpret this result as normal/abnormal. WBC/HPF (test code = 0256235217) See_Comment [Automated messa ge] The system which generated this result transmitted reference range: 0 - 5 HPF. The reference range was not used to interpret this result as normal/abnormal. BACTERIA (test code = 6806282860) Few Negative A MUCOUS (test code = 5887924209) Slight Negative LPF A SQ EPITH (test code = 3361801630) HPF Lab Interpretation (test code = 59303-2) [facility]normal [facility] HospitalN-TERMINAL [id number] 23:20:00* Test Item Value Reference Range Interpretation Comme nts NT-proBNP (test code = 9227151309) 38 pg/mL See_Comment [Automated message] The system which generated this result transmitted reference range: <=125. The reference range was not used to interpret this result as normal/abnormal. MATTHEW (test code = MATTHEW) Biotin has been reported to cause a negative bias, interpret results relative to patient's use of biotin. Lab Interpretation (test code = 28994-6) Normal [facility] HospitalCOMP. METABOLIC PANEL (55428)2020-09-01 23:12:00* Test Item Value Reference Range Interpretation Comme nts NA (test code = 8751163562) 137 mmol/L 135-145 K (test code = 0083357369) 3.9 mmol/L 3.5-5 CL (test code = 4435419333) 100 mmol/L 98-108 CO2 TOTAL (test code = 5351784184) 29 mmol/L 23-31 AGAP (test code = 5038626649) 2-16 BUN (test code = 9575605621) 17 mg/dL 7-23 GLUCOSE (test code = 8804637494) 174 mg/dL 70-110 H CREATININE (test code = 1970249159) 0.56 mg/dL 0.5-1.04 TOTAL BILI (test code = 0640691223) 0.6 mg/dL 0.1-1.1 CALCIUM (test code = 8689224128) 9.2 mg/dL 8.6-10.6 T PROTEIN (test code = 9981163158) 7.9 g/dL 6.3-8.2 ALBUMIN (test code = 7581586534) 4.3 g/dL 3.5-5 ALK PHOS (test code = 1139676582) 101 U/L 34-122 ALTv (test code = 1742-6) 32 U/L 5-35 AST(SGOT) (test code = 8780585838) 28 U/L 13-40 eGFR Calculation (Non-) (test code = 2446308482) mL/min/1.73m2 eGFR Calculation () (test code = 4404990935) mL/min/1.73m2 MATTHEW (test code = MATTHEW) Association [...] imaging tests). Lab Interpretation (test code = 57162-9) Abnormal [facility] WITH [id number] 23:01:00* Test Item Value Reference Range Interpretation Comme nts WBC (test code = 6690-2) See_Comment [Automated Funding Profilesa ge] The system which generated this result transmitted reference range: 4.30 - 11.10 10*3/?L. The reference range was not used to interpret this result as normal/abnormal. RBC (test code = 789-8) See_Comment [Automated [employer]] The system which generated this result [...] 32.9 g/dL 31.6-35.1 RDW-SD (test code = 88064-7) 41.6 fL 39-49.9 RDW-CV (test code = 788-0) 12.6 % 12-15.5 PLT (test code = 777-3) See_Comment [Automated [employer] Profiles[employer] ge] The system which generated this result transmitted reference range: 166 - 358 10*3/?L. The reference range was not used to interpret this result as normal/abnormal. MPV (test code = 49584-2) 10.0 fL 9.5-12.9 NRBC/100 WBC (test code = 7571683600) See_Comment [Automated [employer] ssage] The system which generated this result transmitted reference range: 0.0 - 10.0 /100 WBCs. The reference range was not used to interpret this result as normal/abnormal. NRBC x10^3 (test code = 9521656108) <0.01 See_Comment [Automated messa ge] The system which generated this result transmitted reference range: 10*3/?L. The reference range was not used to interpret this result as normal/abnormal. GRAN MAT (NEUT) % (test code = 770-8) 77.1 % IMM GRAN % (test code = 9216948073) 0.40 % LYMPH % (test code = 736-9) 10.9 % MONO % (test code = 5905-5) 10.4 % EOS % (test code = 713-8) 0.7 % BASO % (test code = 706-2) 0.5 % GRAN MAT x10^3(ANC) (test code = 4634781537) 6.59 10*3/uL 1.88-7.09 IMM GRAN x10^3 (test code = 4936231159) 0.03 10*3/uL 0-0.06 LYMPH x10^3 (test code = 731-0) 0.93 10*3/uL 1.32-3.29 L MONO x10^3 (test code = 742-7) 0.89 10*3/uL 0.33-0.92 EOS x10^3 (test code = 711-2) 0.06 10*3/uL 0.03-0.39 BASO x10^3 (test code = 704-7) 0.04 10*3/uL 0.01-0.07 Lab Interpretation (test code = 60822-8) [facility] [id number] 22:55:00* Test Item Value Reference Range Interpretation Comme nts LACTIC ACID (test code = 0786188853) 1.33 mmol/L [facility] [id number] 22:52:00* Test Item Value Reference Range Interpretation Comme nts POCT PREG (test code = 1605) negative On board controls acceptable with C Line (test code = 3574) present POCT PREG LOT # (test code = 3575) [id number] POCT PREG TEST DATE ( test code = 3576) 02/03/2022 Lab Interpretation (test cod e = 30821-3) [facility] [id number] 00:00:00* Test Item Value Reference Range Interpretation Comme nts HEMOGLOBIN A1c (test code = 26463) 7.0 % C-REACTIVE [id number] 00:00:00* Test Item Value Reference Range Interpretation Comme nts C-REACTIVE PROTEIN (test cod e = 3513) 0.7 MG/DL SEDIMENTATION [id number] 00:00:00* Test Item Value Reference Range Interpretation Comme nts SEDIMENTATION RATE (test cod e = 1017) 22 MM/HOUR URIC [id number] 00:00:00* Test Item Value Reference Range Interpretation Comme nts URIC ACID (test code = 2233) 3.6 MG/DL SUKHI REFLEX AUTOIMMUNE AB [id number] 00:00:00* Test Item Value Reference Range Interpretation Comme nts ANTI-NUCLEAR ANTIBODIES (michael t code = 3506) NEGATIVE COMPREHENSIVE METABOLIC [id number] 00:00:00* Test Item Value Reference Range Interpretation Comme nts GLUCOSE (test code = 2217) 101 MG/DL BUN (test code = 2208) 10 MG/DL CREATININE (test code = 2214) 0.62 MG/DL eGFR AMER. (test cod e = 30649) 123 ML/MIN/1.73 eGFR NON- AMER. (test code = 76211) 106 ML/MIN/1.73 CALC BUN/CREAT (test code = [...] (test code = 2219) 196 U/L HEMOGLOBIN [id number] 00:00:00* Test Item Value Reference Range Interpretation Comme nts HEMOGLOBIN A1c (test code = 97362) 7.0 % C-REACTIVE [id number] 00:00:00* Test Item Value Reference Range Interpretation Comme nts C-REACTIVE PROTEIN (test cod e = 3513) 0.7 MG/DL SEDIMENTATION [id number] 00:00:00* Test Item Value Reference Range Interpretation Comme nts SEDIMENTATION RATE (test cod e = 1017) 22 MM/HOUR URIC [id number] 00:00:00* Test Item Value Reference Range Interpretation Comme nts URIC ACID (test code = 2233) 3.6 MG/DL USKHI REFLEX AUTOIMMUNE AB [id number] 00:00:00* Test Item Value Reference Range Interpretation Comme nts ANTI-NUCLEAR ANTIBODIES (michael t code = 3506) NEGATIVE COMPREHENSIVE METABOLIC [id number] 00:00:00* Test Item Value Reference Range Interpretation Comme nts GLUCOSE (test code = 2217) 101 MG/DL BUN (test code = 2208) 10 MG/DL CREATININE (test code = 2214) 0.62 MG/DL eGFR AMER. (test cod e = 20068) 123 ML/MIN/1.73 eGFR NON- AMER. (test code = 62338) 106 ML/MIN/1.73 CALC BUN/CREAT (test code = [...] (test code = 2219) 196 U/L HEMOGLOBIN [id number] 00:00:00* Test Item Value Reference Range Interpretation Comme nts HEMOGLOBIN A1c (test code = 52324) 7.0 % C-REACTIVE [id number] 00:00:00* Test Item Value Reference Range Interpretation Comme nts C-REACTIVE PROTEIN (test cod e = 3513) 0.7 MG/DL SEDIMENTATION [id number] 00:00:00* Test Item Value Reference Range Interpretation Comme nts SEDIMENTATION RATE (test cod e = 1017) 22 MM/HOUR URIC [id number] 00:00:00* Test Item Value Reference Range Interpretation Comme nts URIC ACID (test code = 2233) 3.6 MG/DL SUKHI REFLEX AUTOIMMUNE AB [id number] 00:00:00* Test Item Value Reference Range Interpretation Comme nts ANTI-NUCLEAR ANTIBODIES (michael t code = 3506) NEGATIVE COMPREHENSIVE METABOLIC [id number] 00:00:00* Test Item Value Reference Range Interpretation Comme nts GLUCOSE (test code = 2217) 101 MG/DL BUN (test code = 2208) 10 MG/DL CREATININE (test code = 2214) 0.62 MG/DL eGFR AMER. (test cod e = 64298) 123 ML/MIN/1.73 eGFR NON- AMER. (test code = 54120) 106 ML/MIN/1.73 CALC BUN/CREAT (test code = [...] (test code = 2219) 196 U/L HEMOGLOBIN [id number] 00:00:00* Test Item Value Reference Range Interpretation Comme nts HEMOGLOBIN A1c (test code = 64071) 7.0 % C-REACTIVE [id number] 00:00:00* Test Item Value Reference Range Interpretation Comme nts C-REACTIVE PROTEIN (test cod e = 3513) 0.7 MG/DL SEDIMENTATION [id number] 00:00:00* Test Item Value Reference Range Interpretation Comme nts SEDIMENTATION RATE (test cod e = 1017) 22 MM/HOUR URIC [id number] 00:00:00* Test Item Value Reference Range Interpretation Comme nts URIC ACID (test code = 2233) 3.6 MG/DL SUKHI REFLEX AUTOIMMUNE AB [id number] 00:00:00* Test Item Value Reference Range Interpretation Comme nts ANTI-NUCLEAR ANTIBODIES (michael t code = 3506) NEGATIVE COMPREHENSIVE METABOLIC [id number] 00:00:00* Test Item Value Reference Range Interpretation Comme nts GLUCOSE (test code = 2217) 101 MG/DL BUN (test code = 2208) 10 MG/DL CREATININE (test code = 2214) 0.62 MG/DL eGFR AMER. (test cod e = 82515) 123 ML/MIN/1.73 eGFR NON- AMER. (test code = 91648) 106 ML/MIN/1.73 CALC BUN/CREAT (test code = [...] (test code = 2219) 196 U/L C-REACTIVE [id number] 00:00:00* Test Item Value Reference Range Interpretation Comme nts C-REACTIVE PROTEIN (test cod e = 3513) 0.7 MG/DL Óscar F AustinSEDIMENTATION [id number] 00:00:00* Test Item Value Reference Range Interpretation Comme nts SEDIMENTATION RATE (test cod e = 1017) 22 MM/HOUR Óscar ZavalaURIC [id number] 00:00:00* Test Item Value Reference Range Interpretation Comme nts URIC ACID (test code = 2233) 3.6 MG/DL Óscar ZavalaANA REFLEX AUTOIMMUNE AB [id number] 00:00:00* Test Item Value Reference Range Interpretation Comme nts ANTI-NUCLEAR ANTIBODIES (michael t code = 3506) NEGATIVE Óscar ZavalaCOMPREHENSIVE METABOLIC [id number] 00:00:00* Test Item Value Reference Range Interpretation Comme nts GLUCOSE (test code = 2217) 101 MG/DL BUN (test code = 2208) 10 MG/DL CREATININE (test code = 2214) 0.62 MG/DL eGFR AMER. (test cod e = 11507) 123 ML/MIN/1.73 eGFR NON- AMER. (test code = 57009) 106 ML/MIN/1.73 CALC BUN/CREAT (test code = [...] (test code = 2219) 196 U/L Óscar ZavalaHEMOGLOBIN [id number] 00:00:00* Test Item Value Reference Range Interpretation Comme maci HEMOGLOBIN A1c (test code = 47832) 7.0 % Óscar ZavalaCT ABDOMEN PELVIS W [id number] 04:56:15No acute intra- abdominal or intrapelvic process. [...] reviewed this study and agree with the abovereport.[facility] [id number] 03:06:00* Test Item Value Reference Range Interpretation Comme nts APPEARANCE (test code = 2444502076) Hazy Clear A COLOR (test code = 3515205792) Loren Yellow A PH (test code = 7998213081) 4.8-8.0 SP GRAVITY (test code = 7945829648) 1.003-1.030 GLU U QUAL (test code = 4436397436) Normal Normal BLOOD (test code = 4859337265) Negative Negative KETONES (test code = 6764183516) Negative Negative PROTEIN (test code = 2887-8) 100 mg/dL Negative A UROBILIN (test code = 7119714867) 2.0 mg/dL Normal A BILIRUBIN (test code = 3822995990) Negative Negative NITRITE (test code = 2710751065) Negative Negative LEUK CHASITY (test code = 2630338491) Negative Negative RBC/HPF (test code = 0750885547) See_Comment [Automated [employer]] The system which generated this result transmitted reference range: 0 - 3 HPF. The reference range was not used to interpret this result as normal/abnormal. WBC/HPF (test code = 4400669518) See_Comment [Automated [employer]] The system which generated this result transmitted reference range: 0 - 5 HPF. The reference range was not used to interpret this result as normal/abnormal. BACTERIA (test code = 5567560196) Few Negative A MUCOUS (test code = 4869198027) Moderate Negative LPF A SQ EPITH (test code = 2606861917) HPF Lab Interpretation (test code = 94937-3) [facility] (12866)2020-07-26 02:41:00* Test Item Value Reference Range Interpretation Comme nts NA (test code = 9727647830) 139 mmol/L 135-145 K (test code = 6254450724) 3.4 mmol/L 3.5-5 L CL (test code = 8049801739) 99 mmol/L 98-108 CO2 TOTAL (test code = 5453152467) 31 mmol/L 23-31 AGAP (test code = 2577129256) 2-16 BUN (test code = 9239851576) 18 mg/dL 7-23 GLUCOSE (test code = 0940156085) 151 mg/dL 70-110 H CREATININE (test code = 6296651252) 0.59 mg/dL 0.5-1.04 TOTAL BILI (test code = 8497877417) 0.8 mg/dL 0.1-1.1 CALCIUM (test code = 4701488251) 9.5 mg/dL 8.6-10.6 T PROTEIN (test code = 5892364444) 7.8 g/dL 6.3-8.2 ALBUMIN (test code = 5504908828) 4.2 g/dL 3.5-5 ALK PHOS (test code = 2534705694) 91 U/L 34-122 ALTv (test code = 1742-6) 24 U/L 5-35 AST(SGOT) (test code = 5402033018) 25 U/L 13-40 eGFR Calculation (Non-) (test code = 6267391828) mL/min/1.73m2 eGFR Calculation () (test code = 3001199671) mL/min/1.73m2 MATTHEW (test code = MATTHEW) Association [...] imaging tests). Lab Interpretation (test code = 57151-5) [facility] 02:40:00* Test Item Value Reference Range Interpretation Comme nts LIPASE (test code = 7116109081) 149 U/L 0-220 Lab Interpretation (test cod e = 48441-5) [facility] WITH [id number] 02:25:00* Test Item Value Reference Range Interpretation [...] 33.3 g/dL 31.6-35.1 RDW-SD (test code = 37679-4) 40.0 fL 39-49.9 RDW-CV (test code = 788-0) 12.4 % 12-15.5 PLT (test code = 777-3) See_Comment H [Automated message] The system which generated this result transmitted reference range: 166 - 358 10*3/?L. The reference range was not used to interpret this result as normal/abnormal. MPV (test code = 48403-9) 9.7 fL 9.5-12.9 NRBC/100 WBC (test code = 1814681597) See_Comment [Automated message] The system which generated this result transmitted reference range: 0.0 - 10.0 /100 WBCs. The reference range was not used to interpret this result as normal/abnormal. NRBC x10^3 (test code = 2800649428) <0.01 See_Comment [Automated message] The system which generated this result transmitted reference range: 10*3/?L. The reference range was not used to interpret this result as normal/abnormal. GRAN MAT (NEUT) % (test code = 770-8) 80.1 % IMM GRAN % (test code = 7567352195) 0.60 % LYMPH % (test code = 736-9) 10.7 % MONO % (test code = 5905-5) 6.3 % EOS % (test code = 713-8) 1.9 % BASO % (test code = 706-2) 0.4 % GRAN MAT x10^3(ANC) (test code = 9089865029) 14.29 10*3/uL 1.88-7.09 H IMM GRAN x10^3 (test code = 6057467501) 0.10 10*3/uL 0-0.06 H LYMPH x10^3 (test code = 731-0) 1.90 10*3/uL 1.32-3.29 MONO x10^3 (test code = 742-7) 1.12 10*3/uL 0.33-0.92 H EOS x10^3 (test code = 711-2) 0.34 10*3/uL 0.03-0.39 BASO x10^3 (test code = 704-7) 0.07 10*3/uL 0.01-0.07 Lab Interpretation (test code = 24474-4) [facility] [id number] 00:00:00* Test Item Value Reference Range Interpretation Comme nts HEMOGLOBIN A1c (test code = 16605) 10.1 % HEMOGLOBIN [id number] 00:00:00* Test Item Value Reference Range Interpretation Comme nts HEMOGLOBIN A1c (test code = 67238) 10.1 % HEMOGLOBIN [id number] 00:00:00* Test Item Value Reference Range Interpretation Comme nts HEMOGLOBIN A1c (test code = 21728) 10.1 % HEMOGLOBIN [id number] 00:00:00* Test Item Value Reference Range Interpretation Comme nts HEMOGLOBIN A1c (test code = 38144) 10.1 % HEMOGLOBIN [id number] 00:00:00* Test Item Value Reference Range Interpretation Comme nts HEMOGLOBIN A1c (test code = 60120) 10.1 % Óscar F AustinHEMOGLOBIN [id number] 00:00:00* Test Item Value Reference Range Interpretation Comme nts HEMOGLOBIN A1c (test code = 93886) 12.0 % LIPID [id number] 00:00:00* Test Item Value Reference Range Interpretation Comme nts CHOLESTEROL (test code = 2210) 202 MG/DL TRIGLYCERIDES (test code = 2232) 147 MG/DL HDL CHOLESTEROL (test code = 2220) 57 MG/DL CALC LDL CHOL (test code = 2237) 119 MG/DL RISK RATIO LDL/HDL (test cod e = 2238) 2.09 RATIO COMPREHENSIVE METABOLIC [id number] 00:00:00* Test Item Value Reference Range Interpretation Comme nts GLUCOSE (test code = 2217) 310 MG/DL BUN (test code = 2208) 15 MG/DL CREATININE (test code = 2214) 0.55 MG/DL eGFR AMER. (test cod e = 36439) 129 ML/MIN/1.73 eGFR NON- AMER. (test code = 87303) 111 ML/MIN/1.73 CALC BUN/CREAT (test code = [...] 20 U/L VITAMIN B 12 AND FOLIC [id number] 00:00:00* Test Item Value Reference Range Interpretation Comme nts VITAMIN B-12 (test code = 2840) 708 PG/ML FOLIC ACID (test code = 2695) 11.9 UG/L CBC W/AUTO [id number] 00:00:00* Test Item Value Reference Range Interpretation [...] (test code = 1015) 364 K/UL HEMOGLOBIN [id number] 00:00:00* Test Item Value Reference Range Interpretation Comme nts HEMOGLOBIN A1c (test code = 22175) 12.0 % LIPID [id number] 00:00:00* Test Item Value Reference Range Interpretation Comme nts CHOLESTEROL (test code = 2210) 202 MG/DL TRIGLYCERIDES (test code = 2232) 147 MG/DL HDL CHOLESTEROL (test code = 2220) 57 MG/DL CALC LDL CHOL (test code = 2237) 119 MG/DL RISK RATIO LDL/HDL (test cod e = 2238) 2.09 RATIO COMPREHENSIVE METABOLIC [id number] 00:00:00* Test Item Value Reference Range Interpretation Comme nts GLUCOSE (test code = 2217) 310 MG/DL BUN (test code = 2208) 15 MG/DL CREATININE (test code = 2214) 0.55 MG/DL eGFR AMER. (test cod e = 42039) 129 ML/MIN/1.73 eGFR NON- AMER. (test code = 85838) 111 ML/MIN/1.73 CALC BUN/CREAT (test code = [...] 20 U/L VITAMIN B 12 AND FOLIC [id number] 00:00:00* Test Item Value Reference Range Interpretation Comme nts VITAMIN B-12 (test code = 2840) 708 PG/ML FOLIC ACID (test code = 2695) 11.9 UG/L CBC W/AUTO [id number] 00:00:00* Test Item Value Reference Range Interpretation [...] (test code = 1015) 364 K/UL HEMOGLOBIN [id number] 00:00:00* Test Item Value Reference Range Interpretation Comme nts HEMOGLOBIN A1c (test code = 34359) 12.0 % LIPID [id number] 00:00:00* Test Item Value Reference Range Interpretation Comme nts CHOLESTEROL (test code = 2210) 202 MG/DL TRIGLYCERIDES (test code = 2232) 147 MG/DL HDL CHOLESTEROL (test code = 2220) 57 MG/DL CALC LDL CHOL (test code = 2237) 119 MG/DL RISK RATIO LDL/HDL (test cod e = 2238) 2.09 RATIO COMPREHENSIVE METABOLIC [id number] 00:00:00* Test Item Value Reference Range Interpretation Comme nts GLUCOSE (test code = 2217) 310 MG/DL BUN (test code = 2208) 15 MG/DL CREATININE (test code = 2214) 0.55 MG/DL eGFR AMER. (test cod e = 25107) 129 ML/MIN/1.73 eGFR NON- AMER. (test code = 88095) 111 ML/MIN/1.73 CALC BUN/CREAT (test code = [...] 20 U/L VITAMIN B 12 AND FOLIC [id number] 00:00:00* Test Item Value Reference Range Interpretation Comme nts VITAMIN B-12 (test code = 2840) 708 PG/ML FOLIC ACID (test code = 2695) 11.9 UG/L CBC W/AUTO [id number] 00:00:00* Test Item Value Reference Range Interpretation [...] (test code = 1015) 364 K/UL HEMOGLOBIN [id number] 00:00:00* Test Item Value Reference Range Interpretation Comme nts HEMOGLOBIN A1c (test code = 73727) 12.0 % LIPID [id number] 00:00:00* Test Item Value Reference Range Interpretation Comme nts CHOLESTEROL (test code = 2210) 202 MG/DL TRIGLYCERIDES (test code = 2232) 147 MG/DL HDL CHOLESTEROL (test code = 2220) 57 MG/DL CALC LDL CHOL (test code = 2237) 119 MG/DL RISK RATIO LDL/HDL (test cod e = 2238) 2.09 RATIO COMPREHENSIVE METABOLIC [id number] 00:00:00* Test Item Value Reference Range Interpretation Comme nts GLUCOSE (test code = 2217) 310 MG/DL BUN (test code = 2208) 15 MG/DL CREATININE (test code = 2214) 0.55 MG/DL eGFR AMER. (test cod e = 68973) 129 ML/MIN/1.73 eGFR NON- AMER. (test code = 24745) 111 ML/MIN/1.73 CALC BUN/CREAT (test code = [...] 20 U/L VITAMIN B 12 AND FOLIC [id number] 00:00:00* Test Item Value Reference Range Interpretation Comme nts VITAMIN B-12 (test code = 2840) 708 PG/ML FOLIC ACID (test code = 2695) 11.9 UG/L CBC W/AUTO [id number] 00:00:00* Test Item Value Reference Range Interpretation [...] (test code = 1015) 364 K/UL HEMOGLOBIN [id number] 00:00:00* Test Item Value Reference Range Interpretation Comme nts HEMOGLOBIN A1c (test code = 18784) 12.0 % Óscar F AustinLIPID [id number] 00:00:00* Test Item Value Reference Range Interpretation Comme nts CHOLESTEROL (test code = 2210) 202 MG/DL TRIGLYCERIDES (test code = 2232) 147 MG/DL HDL CHOLESTEROL (test code = 2220) 57 MG/DL CALC LDL CHOL (test code = 2237) 119 MG/DL RISK RATIO LDL/HDL (test cod e = 2238) 2.09 RATIO Óscar ZavalaCOMPREHENSIVE METABOLIC [id number] 00:00:00* Test Item Value Reference Range Interpretation Comme nts GLUCOSE (test code = 2217) 310 MG/DL BUN (test code = 2208) 15 MG/DL CREATININE (test code = 2214) 0.55 MG/DL eGFR AMER. (test cod e = 84925) 129 ML/MIN/1.73 eGFR NON- AMER. (test code = 67506) 111 ML/MIN/1.73 CALC BUN/CREAT (test code = [...] (test code = 2219) 20 U/L Óscar Rose LucasVITAMIN B 12 AND FOLIC [id number] 00:00:00* Test Item Value Reference Range Interpretation Comme nts VITAMIN B-12 (test code = 2840) 708 PG/ML FOLIC ACID (test code = 8175) 11.9 UG/L Óscar Rose LucasCBC W/AUTO [id number] 00:00:00* Test Item Value Reference Range Interpretation [...] nts SARS-CoV-2 INTERPRETATION (t est code = 91750) NEGATIVE SOURCE (test code = 67503) NOT SPECIFIED SARS-CoV-2 (COVID-19) by RT-PCR (HIGH RISK)2020-04-01 00:00:00* Test Item Value Reference Range Interpretation Comme nts SARS-CoV-2 INTERPRETATION (t est code = 40695) NEGATIVE SOURCE (test code = 88114) NOT SPECIFIED SARS-CoV-2 (COVID-19) by RT-PCR (HIGH RISK)2020-04-01 00:00:00* Test Item Value Reference Range Interpretation Comme nts SARS-CoV-2 INTERPRETATION (t est code = 18513) NEGATIVE SOURCE (test code = 86149) NOT SPECIFIED SARS-CoV-2 (COVID-19) by RT-PCR (HIGH RISK)2020-04-01 00:00:00* Test Item Value Reference Range Interpretation Comme nts SARS-CoV-2 INTERPRETATION (t est code = 46449) NEGATIVE SOURCE (test code = 16153) NOT SPECIFIED SARS-CoV-2 (COVID-19) by RT-PCR (HIGH RISK)2020-04-01 00:00:00* Test Item Value Reference Range Interpretation Comme nts SARS-CoV-2 INTERPRETATION (t est code = 78830) NEGATIVE SOURCE (test code = 52511) NOT SPECIFIED Óscar MichaelsP TEST, THINPREP, [id number] 00:00:00* Test Item Value Reference Range Interpretation Comme nts SOURCE: (test code = 8001) Cervical/Endocervical SLIDES: (test code = 8011) 1 LMP: (test code = 8021) MIRENA SPECIMEN ADEQUACY: (test code = 80178) (NOTE) INTERPRETATION: (test code = 58076) NILM/NO EPITH. ABNORMALITY;SEE BELOW OTHER COMMENTS: (test code = 8081) (NOTE) SODA FOUNTAIN CLERK: (test code = 8101) BETTY Cline(ASCP)IAC QC TECHNOLOGIST: (test code = 8111) Ney BullardSCT(ASCP),IAC LOCATION: (test code = 54923) (NOTE) CPT: (test code = 8140) (NOTE) PAP TEST, THINPREP, [id number] 00:00:00* Test Item Value Reference Range Interpretation Comme nts SOURCE: (test code = 8001) Cervical/Endocervical SLIDES: (test code = 8011) 1 LMP: (test code = 8021) MIRENA SPECIMEN ADEQUACY: (test code = 03261) (NOTE) INTERPRETATION: (test code = 65231) NILM/NO EPITH. ABNORMALITY;SEE BELOW OTHER COMMENTS: (test code = 8081) (NOTE) SODA FOUNTAIN CLERK: (test code = 8101) BETTY Cline(ASCP)IAC QC TECHNOLOGIST: (test code = 8111) Ney BullardSCT(ASCP),IAC LOCATION: (test code = 23910) (NOTE) CPT: (test code = 8140) (NOTE) PAP TEST, THINPREP, [id number] 00:00:00* Test Item Value Reference Range Interpretation Comme nts SOURCE: (test code = 8001) Cervical/Endocervical SLIDES: (test code = 8011) 1 LMP: (test code = 8021) MIRENA SPECIMEN ADEQUACY: (test code = 31175) (NOTE) INTERPRETATION: (test code = 87248) NILM/NO EPITH. ABNORMALITY;SEE BELOW OTHER COMMENTS: (test code = 8081) (NOTE) SODA FOUNTAIN CLERK: (test code = 8101) BETTY Cline(ASCP)IAC QC TECHNOLOGIST: (test code = 8111) BOYD Gabriel(ASCP),IAC LOCATION: (test code = 10182) (NOTE) CPT: (test code = 8140) (NOTE) PAP TEST, THINPREP, [id number] 00:00:00* Test Item Value Reference Range Interpretation Comme nts SOURCE: (test code = 8001) Cervical/Endocervical SLIDES: (test code = 8011) 1 LMP: (test code = 8021) MIRENA SPECIMEN ADEQUACY: (test code = 49688) (NOTE) INTERPRETATION: (test code = 21253) NILM/NO EPITH. ABNORMALITY;SEE BELOW OTHER COMMENTS: (test code = 8081) (NOTE) SODA FOUNTAIN CLERK: (test code = 8101) BETTY Cline(ASCP)IAC QC TECHNOLOGIST: (test code = 8111) BOYD Gabriel(ASCP),[facility] LOCATION: (test code = 91466) (NOTE) CPT: (test code = 8140) (NOTE) PAP TEST, THINPREP, [id number] 00:00:00* Test Item Value Reference Range Interpretation Comme nts SOURCE: (test code = 8001) Cervical/Endocervical SLIDES: (test code = 8011) 1 LMP: (test code = 8021) MIRENA SPECIMEN ADEQUACY: (test code = 17191) (NOTE) INTERPRETATION: (test code = 14776) NILM/NO EPITH. ABNORMALITY;SEE BELOW OTHER COMMENTS: (test code = 8081) (NOTE) SODA FOUNTAIN CLERK: (test code = 8101) BETTY Cline(ASCP)IAC QC TECHNOLOGIST: (test code = 8111) BOYD Gabriel(ASCP),IAC LOCATION: (test code = 56380) (NOTE) CPT: (test code = 8140) (NOTE) Óscar Rose AustinHPV HIGH RISK WITH GENOTYPE, [id number] 00:00:00* Test Item Value Reference Range Interpretation Comme nts HPV HIGH RISK INTERP (test c ode = 16142) NEGATIVE HPV 16 (test code = 80907) NEGATIVE HPV 18 (test code = 88407) NEGATIVE HPV, HR, OTHER GENOTYPES (te st code = 57722) NEGATIVE HPV HIGH RISK WITH GENOTYPE, [id number] 00:00:00* Test Item Value Reference Range Interpretation Comme nts HPV HIGH RISK INTERP (test c ode = 99974) NEGATIVE HPV 16 (test code = 99945) NEGATIVE HPV 18 (test code = 67145) NEGATIVE HPV, HR, OTHER GENOTYPES (te st code = 96843) NEGATIVE HPV HIGH RISK WITH GENOTYPE, [id number] 00:00:00* Test Item Value Reference Range Interpretation Comme nts HPV HIGH RISK INTERP (test c ode = 78302) NEGATIVE HPV 16 (test code = 19579) NEGATIVE HPV 18 (test code = 24261) NEGATIVE HPV, HR, OTHER GENOTYPES (te st code = 14754) NEGATIVE HPV HIGH RISK WITH GENOTYPE, [id number] 00:00:00* Test Item Value Reference Range Interpretation Comme nts HPV HIGH RISK INTERP (test c ode = 45495) NEGATIVE HPV 16 (test code = 65536) NEGATIVE HPV 18 (test code = 09896) NEGATIVE HPV, HR, OTHER GENOTYPES (te st code = 75011) NEGATIVE HPV HIGH RISK WITH GENOTYPE, [id number] 00:00:00* Test Item Value Reference Range Interpretation Comme nts HPV HIGH RISK INTERP (test c ode = 17606) NEGATIVE HPV 16 (test code = 99891) NEGATIVE HPV 18 (test code = 55053) NEGATIVE HPV, HR, OTHER GENOTYPES (te st code = 34439) NEGATIVE Óscar F AustinGC AND CHLAMYDIA AMPLIFIED, [id number] 00:00:00* Test Item Value Reference Range Interpretation Comme nts GONORRHEA, TMA (test code = 13139) NEGATIVE CHLAMYDIA, TMA (test code = 74013) NEGATIVE GC AND CHLAMYDIA AMPLIFIED, [id number] 00:00:00* Test Item Value Reference Range Interpretation Comme nts GONORRHEA, TMA (test code = 40730) NEGATIVE CHLAMYDIA, TMA (test code = 27141) NEGATIVE GC AND CHLAMYDIA AMPLIFIED, [id number] 00:00:00* Test Item Value Reference Range Interpretation Comme nts GONORRHEA, TMA (test code = 95641) NEGATIVE CHLAMYDIA, TMA (test code = 06519) NEGATIVE GC AND CHLAMYDIA AMPLIFIED, [id number] 00:00:00* Test Item Value Reference Range Interpretation Comme nts GONORRHEA, TMA (test code = 06253) NEGATIVE CHLAMYDIA, TMA (test code = 30052) NEGATIVE GC AND CHLAMYDIA AMPLIFIED, [id number] 00:00:00* Test Item Value Reference Range Interpretation Comme nts GONORRHEA, TMA (test code = 21530) NEGATIVE CHLAMYDIA, TMA (test code = 67062) NEGATIVE Óscar ZavalaHEMOGLOBIN [id number] 00:00:00* Test Item Value Reference Range Interpretation Comme nts HEMOGLOBIN A1c (test code = 65872) 11.9 % HEMOGLOBIN [id number] 00:00:00* Test Item Value Reference Range Interpretation Comme nts HEMOGLOBIN A1c (test code = 01144) 11.9 % HEMOGLOBIN [id number] 00:00:00* Test Item Value Reference Range Interpretation Comme nts HEMOGLOBIN A1c (test code = 50973) 11.9 % HEMOGLOBIN [id number] 00:00:00* Test Item Value Reference Range Interpretation Comme nts HEMOGLOBIN A1c (test code = 72586) 11.9 % HEMOGLOBIN [id number] 00:00:00* Test Item Value Reference Range Interpretation Comme nts HEMOGLOBIN A1c (test code = 01775) 11.9 % Óscar ZavalaCOMPREHENSIVE METABOLIC [id number] 00:00:00* Test Item Value Reference Range Interpretation Comme nts GLUCOSE (test code = 2217) 202 MG/DL BUN (test code = 2208) 9 MG/DL CREATININE (test code = 2214) 0.50 MG/DL eGFR AMER. (test cod e = 85029) 135 ML/MIN/1.73 eGFR NON- AMER. (test code = 23019) 116 ML/MIN/1.73 CALC BUN/CREAT (test code = [...] code = 2219) 20 U/L COMPREHENSIVE METABOLIC [id number] 00:00:00* Test Item Value Reference Range Interpretation Comme nts GLUCOSE (test code = 2217) 202 MG/DL BUN (test code = 2208) 9 MG/DL CREATININE (test code = 2214) 0.50 MG/DL eGFR AMER. (test cod e = 51189) 135 ML/MIN/1.73 eGFR NON- AMER. (test code = 27216) 116 ML/MIN/1.73 CALC BUN/CREAT (test code = [...] code = 2219) 20 U/L COMPREHENSIVE METABOLIC [id number] 00:00:00* Test Item Value Reference Range Interpretation Comme nts GLUCOSE (test code = 2217) 202 MG/DL BUN (test code = 2208) 9 MG/DL CREATININE (test code = 2214) 0.50 MG/DL eGFR AMER. (test cod e = 28363) 135 ML/MIN/1.73 eGFR NON- AMER. (test code = 79563) 116 ML/MIN/1.73 CALC BUN/CREAT (test code = [...] code = 2219) 20 U/L COMPREHENSIVE METABOLIC [id number] 00:00:00* Test Item Value Reference Range Interpretation Comme nts GLUCOSE (test code = 2217) 202 MG/DL BUN (test code = 2208) 9 MG/DL CREATININE (test code = 2214) 0.50 MG/DL eGFR AMER. (test cod e = 98019) 135 ML/MIN/1.73 eGFR NON- AMER. (test code = 04814) 116 ML/MIN/1.73 CALC BUN/CREAT (test code = [...] code = 2219) 20 U/L COMPREHENSIVE METABOLIC [id number] 00:00:00* Test Item Value Reference Range Interpretation Comme nts GLUCOSE (test code = 2217) 202 MG/DL BUN (test code = 2208) 9 MG/DL CREATININE (test code = 2214) 0.50 MG/DL eGFR AMER. (test cod e = 89440) 135 ML/MIN/1.73 eGFR NON- AMER. (test code = 09951) 116 ML/MIN/1.73 CALC BUN/CREAT (test code = [...] (test code = 2219) 20 U/L Óscar Rose AustinHEMOGLOBIN [id number] 00:00:00* Test Item Value Reference Range Interpretation Comme nts HEMOGLOBIN A1c (test code = 75561) 11.2 % HEMOGLOBIN [id number] 00:00:00* Test Item Value Reference Range Interpretation Comme nts HEMOGLOBIN A1c (test code = 71612) 11.2 % HEMOGLOBIN [id number] 00:00:00* Test Item Value Reference Range Interpretation Comme nts HEMOGLOBIN A1c (test code = 47637) 11.2 % HEMOGLOBIN [id number] 00:00:00* Test Item Value Reference Range Interpretation Comme nts HEMOGLOBIN A1c (test code = 35044) 11.2 % HEMOGLOBIN [id number] 00:00:00* Test Item Value Reference Range Interpretation Comme nts HEMOGLOBIN A1c (test code = 56981) 11.2 % Óscar ZavalaPAP TEST, THINPREP, [id number] 00:00:00* Test Item Value Reference Range Interpretation Comme nts SOURCE: (test code = 8001) Cervical/Endocervical SLIDES: (test code = 8011) 1 LMP: (test code = 8021) SPECIMEN ADEQUACY: (test code = 09528) (NOTE) INTERPRETATION: (test code = 94774) NO EPITHELIAL ABNORMALITY SEE BELOW OTHER COMMENTS: (test code = 8081) (NOTE) SODA FOUNTAIN CLERK: (test code = 8101) BETTY Wilson(ASCP)IAC QC TECHNOLOGIST: (test code = 8111) BOYD Gabriel(ASCP),IAC LOCATION: (test code = 73713) (NOTE) CPT: (test code = 8140) (NOTE) PAP TEST, THINPREP, [id number] 00:00:00* Test Item Value Reference Range Interpretation Comme nts SOURCE: (test code = 8001) Cervical/Endocervical SLIDES: (test code = 8011) 1 LMP: (test code = 8021) SPECIMEN ADEQUACY: (test code = 10701) (NOTE) INTERPRETATION: (test code = 07598) NO EPITHELIAL ABNORMALITY SEE BELOW OTHER COMMENTS: (test code = 8081) (NOTE) SODA FOUNTAIN CLERK: (test code = 8101) BETTY Wilson(ASCP)IAC QC TECHNOLOGIST: (test code = 8111) BOYD Gabriel(ASCP),IAC LOCATION: (test code = 84865) (NOTE) CPT: (test code = 8140) (NOTE) PAP TEST, THINPREP, [id number] 00:00:00* Test Item Value Reference Range Interpretation Comme nts SOURCE: (test code = 8001) Cervical/Endocervical SLIDES: (test code = 8011) 1 LMP: (test code = 8021) SPECIMEN ADEQUACY: (test code = 70830) (NOTE) INTERPRETATION: (test code = 14643) NO EPITHELIAL ABNORMALITY SEE BELOW OTHER COMMENTS: (test code = 8081) (NOTE) SODA FOUNTAIN CLERK: (test code = 8101) BETTY Wilson(ASCP)IAC QC TECHNOLOGIST: (test code = 8111) BOYD Gabriel(ASCP),IAC LOCATION: (test code = 27689) (NOTE) CPT: (test code = 8140) (NOTE) PAP TEST, THINPREP, [id number] 00:00:00* Test Item Value Reference Range Interpretation Comme nts SOURCE: (test code = 8001) Cervical/Endocervical SLIDES: (test code = 8011) 1 LMP: (test code = 8021) SPECIMEN ADEQUACY: (test code = 22571) (NOTE) INTERPRETATION: (test code = 17469) NO EPITHELIAL ABNORMALITY SEE BELOW OTHER COMMENTS: (test code = 8081) (NOTE) SODA FOUNTAIN CLERK: (test code = 8101) BETTY Wilson(ASCP)IAC QC TECHNOLOGIST: (test code = 8111) Ney BullardTOHATCHI [facility](ASCP),IAC LOCATION: (test code = 61025) (NOTE) CPT: (test code = 8140) (NOTE) PAP TEST, THINPREP, [id number] 00:00:00* Test Item Value Reference Range Interpretation Comme nts SOURCE: (test code = 8001) Cervical/Endocervical SLIDES: (test code = 8011) 1 LMP: (test code = 8021) SPECIMEN ADEQUACY: (test code = 71501) (NOTE) INTERPRETATION: (test code = 05098) NO EPITHELIAL ABNORMALITY SEE BELOW OTHER COMMENTS: (test code = 8081) (NOTE) SODA FOUNTAIN CLERK: (test code = 8101) BETTY Wilson(ASCP)IAC QC TECHNOLOGIST: (test code = 8111) Ney BullardTOHATCHI HEALTH CARE [facility](ASCP),[facility] LOCATION: (test code = 05929) (NOTE) CPT: (test code = 8140) (NOTE) Óscar Rose AustinHPV HIGH RISK WITH GENOTYPE, [id number] 00:00:00* Test Item Value Reference Range Interpretation Comme nts HPV HIGH RISK INTERP (test c ode = 96488) POSITIVE HPV 16 (test code = 88094) NEGATIVE HPV 18 (test code = 11705) NEGATIVE HPV, HR, OTHER GENOTYPES (te st code = 14466) POSITIVE HPV HIGH RISK WITH GENOTYPE, [id number] 00:00:00* Test Item Value Reference Range Interpretation Comme nts HPV HIGH RISK INTERP (test c ode = 50879) POSITIVE HPV 16 (test code = 55390) NEGATIVE HPV 18 (test code = 31893) NEGATIVE HPV, HR, OTHER GENOTYPES (te st code = 46639) POSITIVE HPV HIGH RISK WITH GENOTYPE, [id number] 00:00:00* Test Item Value Reference Range Interpretation Comme nts HPV HIGH RISK INTERP (test c ode = 25692) POSITIVE HPV 16 (test code = 68703) NEGATIVE HPV 18 (test code = 13865) NEGATIVE HPV, HR, OTHER GENOTYPES (te st code = 32730) POSITIVE HPV HIGH RISK WITH GENOTYPE, [id number] 00:00:00* Test Item Value Reference Range Interpretation Comme nts HPV HIGH RISK INTERP (test c ode = 00845) POSITIVE HPV 16 (test code = 40124) NEGATIVE HPV 18 (test code = 08973) NEGATIVE HPV, HR, OTHER GENOTYPES (te st code = 74248) POSITIVE HPV HIGH RISK WITH GENOTYPE, [id number] 00:00:00* Test Item Value Reference Range Interpretation Comme nts HPV HIGH RISK INTERP (test c ode = 02247) POSITIVE HPV 16 (test code = 65511) NEGATIVE HPV 18 (test code = 90861) NEGATIVE HPV, HR, OTHER GENOTYPES (te st code = 99848) POSITIVE Óscar Rose AustinLIPID [id number] 00:00:00* Test Item Value Reference Range Interpretation Comme nts CHOLESTEROL (test code = 2210) 167 MG/DL TRIGLYCERIDES (test code = 2232) 118 MG/DL HDL CHOLESTEROL (test code = 2220) 57 MG/DL CALC LDL CHOL (test code = 2237) 86 MG/DL RISK RATIO LDL/HDL (test cod e = 2238) 1.52 RATIO CBC W/AUTO [id number] 00:00:00* Test Item Value Reference Range Interpretation [...] (test code = 1015) 360 K/UL HEMOGLOBIN [id number] 00:00:00* Test Item Value Reference Range Interpretation Comme nts HEMOGLOBIN A1c (test code = 51955) 9.5 % THYROID II PROFILE (T3U, T4, T7, TSH)2016-04-13 00:00:00* Test Item Value Reference Range Interpretation Comme nts T3 UPTAKE (test code = 2817) 27.5 % T4 (THYROXINE) (test code = 2819) 8.7 UG/DL CALCULATED T7 (FTI) (test co de = 2820) 2.39 TSH (test code = 2821) 2.3 UIU/ML COMPREHENSIVE METABOLIC [id number] 00:00:00* Test Item Value Reference Range Interpretation Comme nts GLUCOSE (test code = 2217) 252 MG/DL BUN (test code = 2208) 13 MG/DL CREATININE (test code = 2214) 0.57 MG/DL eGFR AMER. (test cod e = 46603) 131 ML/MIN/1.73 eGFR NON- AMER. (test code = 23540) 113 ML/MIN/1.73 CALC BUN/CREAT (test code = [...] (test code = 2219) 16 U/L LIPID [id number] 00:00:00* Test Item Value Reference Range Interpretation Comme nts CHOLESTEROL (test code = 2210) 167 MG/DL TRIGLYCERIDES (test code = 2232) 118 MG/DL HDL CHOLESTEROL (test code = 2220) 57 MG/DL CALC LDL CHOL (test code = 2237) 86 MG/DL RISK RATIO LDL/HDL (test cod e = 2238) 1.52 RATIO CBC W/AUTO [id number] 00:00:00* Test Item Value Reference Range Interpretation [...] (test code = 1015) 360 K/UL HEMOGLOBIN [id number] 00:00:00* Test Item Value Reference Range Interpretation Comme nts HEMOGLOBIN A1c (test code = 17747) 9.5 % THYROID II PROFILE (T3U, T4, T7, TSH)2016-04-13 00:00:00* Test Item Value Reference Range Interpretation Comme nts T3 UPTAKE (test code = 2817) 27.5 % T4 (THYROXINE) (test code = 2819) 8.7 UG/DL CALCULATED T7 (FTI) (test co de = 2820) 2.39 TSH (test code = 2821) 2.3 UIU/ML COMPREHENSIVE METABOLIC [id number] 00:00:00* Test Item Value Reference Range Interpretation Comme nts GLUCOSE (test code = 2217) 252 MG/DL BUN (test code = 2208) 13 MG/DL CREATININE (test code = 2214) 0.57 MG/DL eGFR AMER. (test cod e = 80709) 131 ML/MIN/1.73 eGFR NON- AMER. (test code = 65526) 113 ML/MIN/1.73 CALC BUN/CREAT (test code = [...] (test code = 2219) 16 U/L LIPID [id number] 00:00:00* Test Item Value Reference Range Interpretation Comme nts CHOLESTEROL (test code = 2210) 167 MG/DL TRIGLYCERIDES (test code = 2232) 118 MG/DL HDL CHOLESTEROL (test code = 2220) 57 MG/DL CALC LDL CHOL (test code = 2237) 86 MG/DL RISK RATIO LDL/HDL (test cod e = 2238) 1.52 RATIO CBC W/AUTO [id number] 00:00:00* Test Item Value Reference Range Interpretation [...] (test code = 1015) 360 K/UL HEMOGLOBIN [id number] 00:00:00* Test Item Value Reference Range Interpretation Comme nts HEMOGLOBIN A1c (test code = 32267) 9.5 % THYROID II PROFILE (T3U, T4, T7, TSH)2016-04-13 00:00:00* Test Item Value Reference Range Interpretation Comme nts T3 UPTAKE (test code = 2817) 27.5 % T4 (THYROXINE) (test code = 2819) 8.7 UG/DL CALCULATED T7 (FTI) (test co de = 2820) 2.39 TSH (test code = 2821) 2.3 UIU/ML COMPREHENSIVE METABOLIC [id number] 00:00:00* Test Item Value Reference Range Interpretation Comme nts GLUCOSE (test code = 2217) 252 MG/DL BUN (test code = 2208) 13 MG/DL CREATININE (test code = 2214) 0.57 MG/DL eGFR AMER. (test cod e = 16074) 131 ML/MIN/1.73 eGFR NON- AMER. (test code = 71681) 113 ML/MIN/1.73 CALC BUN/CREAT (test code = [...] (test code = 2219) 16 U/L LIPID [id number] 00:00:00* Test Item Value Reference Range Interpretation Comme nts CHOLESTEROL (test code = 2210) 167 MG/DL TRIGLYCERIDES (test code = 2232) 118 MG/DL HDL CHOLESTEROL (test code = 2220) 57 MG/DL CALC LDL CHOL (test code = 2237) 86 MG/DL RISK RATIO LDL/HDL (test cod e = 2238) 1.52 RATIO CBC W/AUTO [id number] 00:00:00* Test Item Value Reference Range Interpretation [...] (test code = 1015) 360 K/UL HEMOGLOBIN [id number] 00:00:00* Test Item Value Reference Range Interpretation Comme nts HEMOGLOBIN A1c (test code = 63003) 9.5 % THYROID II PROFILE (T3U, T4, T7, TSH)2016-04-13 00:00:00* Test Item Value Reference Range Interpretation Comme nts T3 UPTAKE (test code = 2817) 27.5 % T4 (THYROXINE) (test code = 2819) 8.7 UG/DL CALCULATED T7 (FTI) (test co de = 2820) 2.39 TSH (test code = 2821) 2.3 UIU/ML COMPREHENSIVE METABOLIC [id number] 00:00:00* Test Item Value Reference Range Interpretation Comme nts GLUCOSE (test code = 2217) 252 MG/DL BUN (test code = 2208) 13 MG/DL CREATININE (test code = 2214) 0.57 MG/DL eGFR AMER. (test cod e = 91937) 131 ML/MIN/1.73 eGFR NON- AMER. (test code = 85393) 113 ML/MIN/1.73 CALC BUN/CREAT (test code = [...] code = 2219) 16 U/L COMPREHENSIVE METABOLIC [id number] 00:00:00* Test Item Value Reference Range Interpretation Comme nts GLUCOSE (test code = 2217) 252 MG/DL BUN (test code = 2208) 13 MG/DL CREATININE (test code = 2214) 0.57 MG/DL eGFR AMER. (test cod e = 11856) 131 ML/MIN/1.73 eGFR NON- AMER. (test code = 01757) 113 ML/MIN/1.73 CALC BUN/CREAT (test code = [...] code = 2219) 16 U/L Óscar ZavalaLIPID [id number] 00:00:00* Test Item Value Reference Range Interpretation Comme nts CHOLESTEROL (test code = 2210) 167 MG/DL TRIGLYCERIDES (test code = 2232) 118 MG/DL HDL CHOLESTEROL (test code = 2220) 57 MG/DL CALC LDL CHOL (test code = 2237) 86 MG/DL RISK RATIO LDL/HDL (test cod e = 2238) 1.52 RATIO Óscar ZavalaC W/AUTO [id number] 00:00:00* Test Item Value Reference Range Interpretation [...] code = 1015) 360 K/UL Óscar ZavalaHEMOGLOBIN [id number] 00:00:00* Test Item Value Reference Range Interpretation Comme [facility] HEMOGLOBIN A1c (test code = 15164) 9.5 % Óscar ZavalaTHYROID II PROFILE (T3U, T4, T7, TSH)2016-04-13 00:00:00* Test Item Value Reference Range Interpretation Comme nts T3 UPTAKE (test code = 2817) 27.5 % T4 (THYROXINE) (test code = 2819) 8.7 UG/DL CALCULATED T7 (FTI) (test co de = 2820) 2.39 TSH (test code = 2821) 2.3 UIU/ML Óscar ZavalaTHYROID II PROFILE (T3U, T4, T7, TSH)2015-12-16 00:00:00* Test Item Value Reference Range Interpretation Comme nts T3 UPTAKE (test code = 2817) 27.2 % T4 (THYROXINE) (test code = 2819) 8.9 UG/DL CALCULATED T7 (FTI) (test co de = 2820) 2.42 TSH (test code = 2821) 1.3 UIU/ML LIPID [id number] 00:00:00* Test Item Value Reference Range Interpretation Comme nts CHOLESTEROL (test code = 2210) 167 MG/DL TRIGLYCERIDES (test code = 2232) 113 MG/DL HDL CHOLESTEROL (test code = 2220) 53 MG/DL CALCULATED LDL CHOL (test co de = 2237) 91 MG/DL RISK RATIO LDL/HDL (test cod e = 2238) 1.72 RATIO COMPREHENSIVE METABOLIC [id number] 00:00:00* Test Item Value Reference Range Interpretation Comme nts GLUCOSE (test code = 2217) 195 MG/DL BUN (test code = 2208) 14 MG/DL CREATININE (test code = 2214) 0.55 MG/DL eGFR AMER. (test cod e = 51157) 132 ML/MIN/1.73 eGFR NON- AMER. (test code = 82562) 114 ML/MIN/1.73 CALCULATED BUN/CREAT (test code = [...] (test code = 2219) 21 U/L HEMOGLOBIN [id number] 00:00:00* Test Item Value Reference Range Interpretation Comme [facility] HEMOGLOBIN A1c (test code = 76448) 9.9 % CBC W/AUTO [id number] 00:00:00* Test Item Value Reference Range Interpretation [...] (test code = 2821) 1.3 UIU/ML LIPID [id number] 00:00:00* Test Item Value Reference Range Interpretation Comme nts CHOLESTEROL (test code = 2210) 167 MG/DL TRIGLYCERIDES (test code = 2232) 113 MG/DL HDL CHOLESTEROL (test code = 2220) 53 MG/DL CALCULATED LDL CHOL (test co de = 2237) 91 MG/DL RISK RATIO LDL/HDL (test cod e = 2238) 1.72 RATIO COMPREHENSIVE METABOLIC [id number] 00:00:00* Test Item Value Reference Range Interpretation Comme nts GLUCOSE (test code = 2217) 195 MG/DL BUN (test code = 2208) 14 MG/DL CREATININE (test code = 2214) 0.55 MG/DL eGFR AMER. (test cod e = 57074) 132 ML/MIN/1.73 eGFR NON- AMER. (test code = 00907) 114 ML/MIN/1.73 CALCULATED BUN/CREAT (test code = [...] (test code = 2219) 21 U/L HEMOGLOBIN [id number] 00:00:00* Test Item Value Reference Range Interpretation Comme nts HEMOGLOBIN A1c (test code = 34607) 9.9 % CBC W/AUTO [id number] 00:00:00* Test Item Value Reference Range Interpretation [...] (test code = 2821) 1.3 UIU/ML LIPID [id number] 00:00:00* Test Item Value Reference Range Interpretation Comme nts CHOLESTEROL (test code = 2210) 167 MG/DL TRIGLYCERIDES (test code = 2232) 113 MG/DL HDL CHOLESTEROL (test code = 2220) 53 MG/DL CALCULATED LDL CHOL (test co de = 2237) 91 MG/DL RISK RATIO LDL/HDL (test cod e = 2238) 1.72 RATIO COMPREHENSIVE METABOLIC [id number] 00:00:00* Test Item Value Reference Range Interpretation Comme nts GLUCOSE (test code = 2217) 195 MG/DL BUN (test code = 2208) 14 MG/DL CREATININE (test code = 2214) 0.55 MG/DL eGFR AMER. (test cod e = 06760) 132 ML/MIN/1.73 eGFR NON- AMER. (test code = 71554) 114 ML/MIN/1.73 CALCULATED BUN/CREAT (test code = [...] (test code = 2219) 21 U/L HEMOGLOBIN [id number] 00:00:00* Test Item Value Reference Range Interpretation Comme [facility] HEMOGLOBIN A1c (test code = 47957) 9.9 % CBC W/AUTO [id number] 00:00:00* Test Item Value Reference Range Interpretation [...] Comme nts T3 UPTAKE (test code = 281) 27.2 % T4 (THYROXINE) (test code = 2819) 8.9 UG/DL CALCULATED T7 (FTI) (test co de = 2820) 2.42 TSH (test code = 2821) 1.3 UIU/ML LIPID [id number] 00:00:00* Test Item Value Reference Range Interpretation Comme nts CHOLESTEROL (test code = 2210) 167 MG/DL TRIGLYCERIDES (test code = 2232) 113 MG/DL HDL CHOLESTEROL (test code = 2220) 53 MG/DL CALCULATED LDL CHOL (test co de = 223) 91 MG/DL RISK RATIO LDL/HDL (test cod e = 2238) 1.72 RATIO COMPREHENSIVE METABOLIC [id number] 00:00:00* Test Item Value Reference Range Interpretation Comme nts GLUCOSE (test code = 2217) 195 MG/DL BUN (test code = 2208) 14 MG/DL CREATININE (test code = 2214) 0.55 MG/DL eGFR AMER. (test cod e = 57337) 132 ML/MIN/1.73 eGFR NON- AMER. (test code = 39597) 114 ML/MIN/1.73 CALCULATED BUN/CREAT (test code = [...] (test code = 2219) 21 U/L HEMOGLOBIN [id number] 00:00:00* Test Item Value Reference Range Interpretation Comme nts HEMOGLOBIN A1c (test code = 96672) 9.9 % CBC W/AUTO [id number] 00:00:00* Test Item Value Reference Range Interpretation [...] code = 1015) 352 K/UL CBC W/AUTO [id number] 00:00:00* Test Item Value Reference Range Interpretation [...] code = 2821) 1.3 UIU/ML Óscar ZavalaLIPID [id number] 00:00:00* Test Item Value Reference Range Interpretation Comme nts CHOLESTEROL (test code = 2210) 167 MG/DL TRIGLYCERIDES (test code = 2232) 113 MG/DL HDL CHOLESTEROL (test code = 2220) 53 MG/DL CALCULATED LDL CHOL (test co de = 2237) 91 MG/DL RISK RATIO LDL/HDL (test cod e = 2238) 1.72 RATIO Óscar ZavalaCOMPREHENSIVE METABOLIC [id number] 00:00:00* Test Item Value Reference Range Interpretation Comme nts GLUCOSE (test code = 2217) 195 MG/DL BUN (test code = 2208) 14 MG/DL CREATININE (test code = 2214) 0.55 MG/DL eGFR AMER. (test cod e = 68395) 132 ML/MIN/1.73 eGFR NON- AMER. (test code = 52536) 114 ML/MIN/1.73 CALCULATED BUN/CREAT (test code = [...] code = 2219) 21 U/L Óscar ZavalaHEMOGLOBIN [id number] 00:00:00* Test Item Value Reference Range Interpretation Comme [facility] HEMOGLOBIN A1c (test code = 19321) 9.9 % Óscar Zavala
--- NOTE | 2024-11-08 23:36 | EDPHYS ---
Physician Documentation [facility] Name: Tova Ames Age: 54 yrs Sex: Female : 1970 Arrival Date: 11/08/2024 Time: 23:20 Bed IW1 Private MD: ED Physician Giuseppe Lindo HPI: 11/08 23:50 This 54 yrs old Female presents to ER via Ambulatory with complaints of Foot dr5 Pain. 23:50 The patient presents with an abscess, small, swelling. The complaints affect the dorsum dr5 of left foot. Patient is a 54-year-old female with history of diabetes, sciatic nerve pain coming in with a left great toe pain that started today. Patient reports that she is nervous that she might be developing infection. Patient denies fever, discharge from toe, or difficulty ambulating.. Historical: - Allergies: 23:36 Aspirin; ss 23:36 Ibuprofen; ss 23:36 Influenza Virus Vaccines; ss 23:36 PENICILLINS; ss - PMHx: 23:36 diabetes mellitus; Left knee torn ACL (Unknown); Nerve damage; sciatica (Unknown); ss - PSHx: 23:36 D\T\C; leg; ss ROS: 23:50 Constitutional: as per hpi dr5 Exam: 23:50 Constitutional: This is a well developed, well nourished patient who is awake, alert, dr5 and in no acute distress. Head/Face: Normocephalic, atraumatic. Eyes: Pupils equal round and reactive to light, extra-ocular motions intact. Lids and lashes normal. Conjunctiva and sclera are non-icteric and not injected. Cornea within normal limits. Periorbital areas with no swelling, redness, or edema. Neck: Trachea midline, no thyromegaly or masses palpated, and no cervical lymphadenopathy. Supple, full range of motion without nuchal rigidity, or vertebral point tenderness. No Meningismus. Chest/axilla: Normal chest wall appearance and motion. Nontender with no deformity. No lesions are appreciated. Cardiovascular: Regular rate and rhythm with a normal S1 and S2. Normal PMI, no JVD. No pulse deficits. Respiratory: Lungs have equal breath sounds bilaterally, clear to auscultation. No rales, rhonchi or wheezes noted. No increased work of breathing, no retractions or nasal flaring. Back: No spinal tenderness. No costovertebral tenderness. Full range of motion. Neuro: Awake and alert, GCS 15, oriented to person, place, time, and situation. Cranial nerves II-XII grossly intact. Motor strength 5/5 in all extremities. Sensory grossly intact. Cerebellar exam normal. Normal gait. 23:50 Skin: cellulitis, that is minimal, on the plantar aspect of left first toe, left first toe and Left first toenail, induration, that is mild is noted, Vital Signs: 23:35 BP 164 / 88; Pulse 78; Resp 16; Temp 97.1(TE); Pulse Ox 99% on R/A; Weight 74.39 kg; ss Height 5 ft. 2 in. ; Pain 6/10; 23:35 Body Mass Index 30.00 (74.39 kg, 157.48 cm) ss 23:35 Pain Scale: Adult ss MDM: 23:28 Medical Screening Exam initiated dr5 23:50 Differential diagnosis: contusion, abrasion, Cellulitis. Data reviewed: vital signs, dr5 nurses notes. Care significantly affected by the following chronic conditions: Diabetes, Hypertension. Care significantly affected by the following Social Determinants of Health: Poor access to healthcare and/or lack of insurance, Poor access to transportation, Problems related to employment. Counseling: I had a detailed discussion with the patient and/or guardian regarding the historical points, exam findings, and any diagnostic results supporting the discharge/admit diagnosis, the presence of at least one elevated blood pressure reading (>120/80) during this emergency department visit, the need for outpatient follow up, for definitive care, a family practitioner, to return to the emergency department if symptoms worsen or persist or if there are any questions or concerns that arise at home. ED course: First dose of antibiotics given in ER. Patient will call primary care doctor today and states that she is able to get appointment and today. Sent prescriptions for Keflex and Bactrim and recommended patient follow-up as soon as possible and to return to ER if worsening conditions, develops fever, or develops worsening pain. All questions answered. Patient will follow-up today.. Administered Medications: 23:39 Not Given (Physician Discretion): Bactrim (DS) 2 tabs PO once dr5 23:43 Drug: Cephalexin PO 500 mg PO once Route: PO; ss 23:44 Follow up: Response: Medication Administered at Departure 23:43 Drug: Trimethoprim-Sulfamethoxazole PO (160 mg-800 mg (DS) 1 tablet PO once Route: PO; ss 23:44 Follow up: Response: Medication Administered at Departure Disposition: 11/09 03:19 Co-signature as Attending Physician, Giuseppe Lindo MD I agree with the assessment sp4 and plan of care. I reviewed the patient's care provided by the Advanced Practice Provider and agree with the diagnosis and treatment plan. Disposition Summary: 11/08/24 23:36 Discharge Ordered Notes: Location: Home dr5 Condition: Stable dr5 Diagnosis - Type 2 diabetes mellitus with diabetic neuropathy, unspecified dr5 - Pain in left toe(s) dr5 Followup: dr5 - With: Emergency Department - When: As needed - Reason: Worsening of condition Followup: dr5 - With: Private Physician - When: 1 - 2 days - Reason: Recheck today's complaints, Continuance of care, Re-evaluation by your physician Discharge Instructions: - Discharge Summary Sheet dr5 - Type 2 Diabetes Mellitus, Diagnosis, Adult dr5 Forms: - Work release form dr5 - Medication Reconciliation Form dr5 - Antibiotic Education dr5 - Patient Portal Instructions dr5 - Leadership Thank You Letter dr5 Prescriptions: - Cephalexin 500 mg Oral Capsule - take 1 capsule ORAL route every 6 hours for 10 days; 40 capsule; Refills: 0, dr5 Product Selection Permitted - Bactrim DS 800-160 mg Oral Tablet - take 1 tablet ORAL route every 12 hours for 7 days; 14 tablet; Refills: 0, dr5 Product Selection Permitted Signatures: Leesa Irving RN RN Giuseppe Lindo MD MD sp4 Patrick Vargas, LOADING DOCK HELPER-C LOADING DOCK HELPER-Cdr5
--- NOTE | 2024-11-08 23:36 | ER ---
Nurse's Notes [facility] Name: Tova Ames Age: 54 yrs Sex: Female : 1970 Arrival Date: 11/08/2024 Time: 23:20 Bed IW1 Private MD: Diagnosis: Type 2 diabetes mellitus with diabetic neuropathy, unspecified;Pain in left toe(s) Presentation: 11/08 23:35 Chief complaint: Patient states: Toe pain and drainage that was noticed yesterday. ss Coronavirus screen: Client denies travel out of the [place] in the last 14 days. Ebola Screen: Patient denies exposure to infectious person. Patient denies travel to an Ebola-affected area in the 21 days before illness onset. Initial Sepsis Screen: Does the patient meet any 2 criteria? No. Patient's initial sepsis screen is negative. Does the patient have a suspected source of infection? No. Patient's initial sepsis screen is negative. Risk Assessment: Do you want to hurt yourself or someone else? Patient reports no desire to harm self or others. Onset of symptoms was November 07, 2024. 23:35 Method Of Arrival: Ambulatory ss 23:35 Acuity: JACKIE 4 ss Historical: - Allergies: 23:36 Aspirin; ss 23:36 Ibuprofen; ss 23:36 Influenza Virus Vaccines; ss 23:36 PENICILLINS; ss - PMHx: 23:36 diabetes mellitus; Left knee torn ACL (Unknown); Nerve damage; sciatica (Unknown); ss - PSHx: 23:36 D\T\C; leg; ss Screenin:37 Abuse screen: Denies threats or abuse. Denies injuries from another. Nutritional ss screening: No deficits noted. Tuberculosis screening: Never had TB. Assessment: 23:37 General: Appears in no apparent distress. comfortable, Behavior is calm, cooperative. ss Neuro: Level of Consciousness is awake, alert, obeys commands, Oriented to person, place, time, situation. Respiratory: Airway is patent Respiratory effort is even, unlabored, Respiratory pattern is regular, symmetrical. EENT: Oral mucosa is moist. Derm: Skin is pink, warm \T\ dry. normal. Musculoskeletal: mild swelling to L greater toe. Vital Signs: 23:35 BP 164 / 88; Pulse 78; Resp 16; Temp 97.1(TE); Pulse Ox 99% on R/A; Weight 74.39 kg; ss Height 5 ft. 2 in. ; Pain 6/10; 23:35 Body Mass Index 30.00 (74.39 kg, 157.48 cm) ss 23:35 Pain Scale: Adult ss ED Course: 23:24 Patient arrived in ED. gm2 23:26 Patrick Vargas, DHAVAL-[facility] is [facility]. dr5 23:26 Giuseppe Lindo MD is Attending Physician. dr5 23:36 Triage completed. ss 23:36 Arm band placed on right wrist. ss 23:37 Patient has correct armband on for positive identification. ss 23:37 No provider procedures requiring assistance completed. Patient did not have IV access ss during this emergency room visit. Administered Medications: 23:39 Not Given (Physician Discretion): Bactrim (DS) 2 tabs PO once dr5 23:43 Drug: Cephalexin PO 500 mg PO once Route: PO; ss 23:44 Follow up: Response: Medication Administered at Departure ss 23:43 Drug: Trimethoprim-Sulfamethoxazole PO (160 mg-800 mg (DS) 1 tablet PO once Route: PO; ss 23:44 Follow up: Response: Medication Administered at Departure ss Medication: 23:37 VIS not applicable for this client. ss Outcome: 23:36 Discharge ordered by . dr5 23:46 Discharged to home ambulatory, ss 23:46 Condition: good 23:46 Discharge instructions given to patient, Instructed on discharge instructions, follow up and referral plans. medication usage, Demonstrated understanding of instructions, follow-up care, medications, Prescriptions given X 2, 23:47 Patient left the ED. Signatures: Leesa Irving, LAZARO RN Melanie Negrete 2 Patrick Vargas FNP-C INSPECTOR CRYSTAL-Cdr5
[2024-11-08] MEDS ORDERED: SMZ./TMP. 800/160 MG TABLET ONE (23:37)
[2024-11-08] MEDS ORDERED: CEPHALEXIN 250 MG CAP ONE (23:37)
[2024-11-08 23:51] VITALS: BP 164/88; TEMP 97.1; O2SAT 99
== END 2024-11-08 23:47 | disposition home or self-care (01) ==
LOC: ER 23:20
DX: E11.40 Type 2 diabetes mellitus with diabetic neuropathy, unspecified (principal)
CPT/HCPCS: 99283

== ENCOUNTER 2025-01-10 01:24 | Observation (INO) | payer OTHER ==
--- OUTSIDE RECORDS SUMMARY | 2025-01-10 01:39 | XMS REPORT | Continuity of Care Document ---
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 Vanessa 09/01/20 at 1745, [facility] acetaminoph en (TYLENOL) tablet 650 mg 2019-10 23:45: 00 09-01 22:49 :00 No 650mg 650 mg, Oral, ONCE, 1 dose, [facility] 09/01/20 at 1745, [facility] NaCl 0.9% (NS) bolus infusion 1,000 mL 2019-10 22:45: 00 09-02 00:02 :00 No 1000mL at 999 mL/hr, 1,000 mL, IV Infusion, ONCE, 1 dose, [facility] 09/01/20 at 1645, [facility] azithromyci n 250 mg tablet 2019-10 00:00: 00 09-06 05:59 :00 No [id number] 250mg Take 1 tablet by mouth daily for 4 days. Take 500 mg day 1, then 250 mg days 2 to 5. [facility] prednisone 10 mg tablet 2019-10 00:00: [...] Sat07/26/20 at 0800, Until Discontinu ed, Routine [facility] ondansetron (ZOFRAN (PF)) injection 4 mg 2019-10 04:15: 00 07-26 03:28 :00 No 4mg 4 mg, Slow IV Push, ONCE, 1 dose, [facility]07[facility]25/20 [facility] (OMN[facility]QUE [facility] BULK-150 mL) injection 120 mL 2019-10 04:15: 00 07-26 04:15 :00 No 120mL 120 mL, Intravenou s, ONCE, 1 dose, Sat07/25/20 at 2315, Routine [facility] NaCl 0.9% (NS) IV infusion 1,000 mL 2019-10 03:00: 00 Yes 1000mL at 999 mL/hr, Intravenou s, CONTINUOUS , Starting Sat07/25/20 at 2200, Until Discontinu ed, Routine [facility] ondansetron (ZOFRAN (PF)) injection 4 mg 2019-10 03:00: 00 07-26 02:14 :00 No 4mg 4 mg, Slow IV Push, ONCE, 1 dose, Sat07/25/20 at 2200, SARAH [facility] pantoprazol e (PROTONIX) 40 mg EC tablet 2019-10 00:00: 00 09-26 00:00 :00 No [id number] 40mg Take 1 tablet by mouth daily. [facility] dicyclomine 20 mg tablet 2019-10 00:00: 09-26 00:00 :00 No [id number] 20mg Take 1 tablet by mouth every 6 (six) hours as needed for Abdominal pain. [facility] ondansetron (ZOFRAN) 4 mg tablet 2019-10 019 00:00: 00 09-26 00:00 :00 No [id number] 4mg Take 1 tablet by mouth every 8 (eight) hours as needed for Nausea and Vomiting (N/V). [facility] naproxen 500 mg tablet,tony yed release [...] gabapentin 400 mg capsule 15 00:00: 00 Yes 1mg Óscar Zavala Actos [...] Zavala naproxen 500 mg tablet,tony yed release 05-03 00:00: 00 Yes 1mg Óscar Zavala glimepiride 4 mg tablet 05-03 00:00: 00 Yes 1mg Óscar Zavala Actos 15 mg tablet 04-21 00:00: 00 No 1mg glimepiride 2 mg tablet 04-21 00:00: 00 No 1mg Actos 15 mg tablet 04-21 00:00: 00 No 1mg glimepiride 2 mg tablet 04-21 00:00: 00 No 1mg Actos 15 mg tablet 04-21 00:00: 00 No 1mg glimepiride 2 mg tablet 04-21 00:00: 00 No 1mg Actos 15 mg tablet 04-21 00:00: 00 Yes 1mg Óscar F Lucas glimepiride 2 mg tablet 0 7-16 00:00: 00 Yes 1mg Óscar Zavala Singulair 10 mg tablet 0 - 00:00: 00 No 1mg Singulair 10 mg tablet 0 - 00:00: 00 No 1mg Singulair 10 mg tablet 0 - 00:00: [...] Óscar Zavala metronidazo le 500 mg tablet 0 2-03 00:00: 00 No 1mg metronidazo le 500 mg tablet 0 2-03 00:00: 00 No 1mg metronidazo le 500 mg tablet 0 2-03 00:00: 00 No 1mg metronidazo le 500 mg tablet 0 2-03 00:00: 00 Yes 1mg Óscar Zavala gabapentin 400 mg capsule 0 1-27 00:00: 00 No 1mg gabapentin 400 mg capsule 0 1- 00:00: 00 No 1mg gabapentin 400 mg capsule 0 1- 00:00: 00 No 1mg gabapentin 400 mg capsule 0 - 00:00: 00 Yes 1mg Óscar Zavala prednisone 10 mg tablet 0 - 00:00: 00 No mg azithromyci n 250 mg tablet 0 - 00:00: 00 No mg prednisone 10 mg tablet - 00:00: 00 No mg azithromyci n 250 mg tablet 0 - 00:00: 00 No mg prednisone 10 mg tablet 0 - 00:00: 00 No mg azithromyci n 250 mg tablet 0 - 00:00: 00 No mg prednisone 10 mg tablet 202010-08 00:00: 00 Yes mg Óscar Zavala azithromyci [...] 12-18 00:00: 00 11-28 00:00 :00 No [id number] 500mg Take 1 tablet by mouth 3 (three) times daily as needed for Pain (scale 4-6). [facility] traMADOL 50 mg tablet 12-18 00:00: 09-16 00:00 :00 No [id number] 50mg Take 1 tablet by mouth every 8 (eight) hours as needed for Pain (scale 4-6). [facility] naproxen 250 mg tablet 10-11 00:00: 00 Yes 250mg Take 1 tablet by mouth 2 (two) times daily with meals. [facility] traMADOL (ULTRAM) 50 mg tablet 10-11 00:00: 09-16 00:00 :00 No 50mg Take 1 tablet by mouth every 6 (six) hours as needed for Pain (scale 4-6). [facility] cyclobenzap rine 5 mg tablet 10-11 00:00: 00 09-26 00:00 :00 No 5mg Take 1 tablet by mouth 3 (three) times daily. [facility] Fluticasone Propionate 50 MCG/ACT Fluticasone Propionate [...] as needed for Nausea and Vomiting (N/V). [facility] ranitidine (ZANTAC) 150 mg tablet 05-20 00:00: 00 09-26 00:00 :00 No 150mg Take 1 tablet by mouth 2 (two) times daily. [facility] cyclobenzap rine 5 mg tablet 04-12 [...] 12-25 23:42: 52 Yes Take by mouth. [facility] INSULIN REGULAR HUMAN SC 12-25 23:42: 52 Yes inject under the skin. [facility] gabapentin (NEURONTIN) 300 mg capsule 12-25 23:42: 52 Yes 300mg Take 300 mg by mouth 3 (three) times daily. [facility] METFORMIN HCL (METFORMIN ORAL) 12-25 18:42: 52 Yes Take by mouth. [facility] INSULIN REGULAR HUMAN SC 12-25 18:42: 52 Yes inject under the skin. [facility] gabapentin (NEURONTIN) 300 mg capsule 12-25 18:42: 52 Yes 300mg Take 300 mg by mouth 3 (three) times daily. [facility] cyclobenzap rine 5 mg tablet 11-23 [...] Shelby Olvera - Externa l Childrens Gummies - Childrens Gummies - No Stuart Morgan 2 gummies [facility] Amitriptyli ne HCl Amitriptyli ne HCl No Cyclobenzap rine HCl 5 MG Cyclobenzap rine HCl 5 MG No 1{table t_as_ne eded} Gabapentin 300 MG Gabapentin 300 MG No 1{table t} BID Lantus 100 UNIT/ML Lantus 100 UNIT/ML No Immunizations Ordered Immunization Name Filled Immunization Name Date Status Comments Source Tdap Tdap 2023-10-14 00:00:00 Daniel Zavala Hep B, adult Hep B, adult 2013-10-29 00:00:00 Daniel Zavala Tdap Tdap 2013-08-12 00:00:00 Completed Óscar Zavala Hep B, adult Hep B, adult 2013-08-12 00:00:00 Daniel Zavala Hep B, adult Hep B, adult 2013-04-22 00:00:00 Daniel Zavala Hepatitis B, Adult (3 dose) Unknown Completed Shelby Olvera - External Tdap- (Boostrix, Adacel) Unknown Completed Shelby Olvera - External Vital Signs Vital Name Observation Time Observation Value Comments S karthik Body temperature 2024-10-13 04:38:36 37 Juana [facility] Systolic blood pressure 2024-10-13 04:38:00 115 mm[Hg] [facility] Diastolic blood pressure 2024-10-13 04:38:00 57 mm[Hg] [facility] Heart rate 2024-10-13 04:38:00 80 /min Unive [facility] Respiratory rate 2024-10-13 04:38:00 18 /min [facility] Oxygen saturation in Arterial blood by Pulse oximetry 2024-10-13 04:38:00 98 /min [facility] Body height 2024-10-13 01:51:00 157.5 cm [facility] 2024-10-13 01:51:[address] [facility] BMI 2024-10-13 01:51:00 30.00 kg/m2 [facility] Systolic blood pressure 2023-10-14 15:33:00 124 mm[Hg] Shelby Seybo ld - External Diastolic blood pressure 2023-10-14 15:33:00 70 mm[Hg] Shelby Ferrariybo ld - External Heart rate 2023-10-14 14:52:00 88 /min Rosenda celeste catherineyoli - External Body temperature 2023-10-14 14:52:00 36.39 Juana Shelby Ferrariybold - External Respiratory rate 2023-10-14 14:52:00 20 /min Shelby Ferrariybold - External Body height 2023-10-14 14:52:00 157.5 cm Fauzia barkley Seybold - External Body weight 2023-10-14 14:52:00 77.565 kg Fauzia barkley Seybold - External BMI 2023-10-14 14:52:00 31.28 kg/m2 Fauzia Reedold - External Oxygen saturation in Arterial blood by Pulse oximetry 2023-10-14 14:52:00 99 /min Shelby Reedo ld - External Systolic blood pressure 2023-02-08 13:34:00 163 mm[Hg] [facility] Diastolic blood pressure 2023-02-08 13:34:00 85 mm[Hg] [facility] Heart rate 2023-02-08 13:34:00 88 /min Un[facility] Body temperature 2023-02-08 13:34:00 37.39 Juana [facility] Respiratory rate 2023-02-08 13:34:00 16 /min [facility] Body height 2023-02-08 13:34:00 [facility]5 [facility] Body weight 2023-02-08 13:34:00 73.936 kg [facility] BMI 2023-02-08 13:34:00 29.81 kg/m2 [facility] Oxygen saturation in Arterial blood by Pulse oximetry 2023-02-08 13:34:00 99 /min [facility] Systolic blood pressure 2022-11-28 22:30:00 107 mm[Hg] [facility] Diastolic blood pressure 2022-11-28 22:30:00 74 mm[Hg] [facility] Heart rate 2022-11-28 22:30:00 99 /min [facility] Body temperature 2022-11-28 22:30:00 37.11 Juana [facility] Respiratory rate 2022-11-28 22:30:00 18 /min [facility] Body height 2022-11-28 22:30:00 157.5 cm [facility] Body weight 2022-11-28 22:30:00 73.483 kg [facility] BMI 2022-11-28 22:30:00 29.63 kg/m2 [facility] Oxygen saturation in Arterial blood by Pulse oximetry 2022-11-28 22:30:00 98 /min [facility] Systolic blood pressure 2022-09-16 20:56:00 144 mm[Hg] [facility] Diastolic blood pressure 2022-09-16 20:56:00 80 mm[Hg] [facility] Heart rate 2022-09-16 20:56:00 83 /min [facility] Body temperature 2022-09-16 20:56:00 37.11 Juana [facility] Respiratory rate 2022-09-16 20:56:00 20 /min [facility] Oxygen saturation in Arterial blood by Pulse oximetry 2022-09-16 20:56:00 97 /min [facility] Systolic blood pressure 2022-06-26 02:00:00 129 mm[Hg] [facility] Diastolic blood pressure 2022-06-26 02:00:00 71 mm[Hg] [facility] Heart rate 2022-06-26 02:00:00 60 /min [facility] Respiratory rate 2022-06-26 02:00:00 18 /min [facility] Oxygen saturation in Arterial blood by Pulse oximetry 2022-06-26 02:00:00 98 /min [facility] Body temperature 2022-06-26 01:13:00 36.78 Juana [facility] Body height 2022-06-26 01:13:[address] [facility] Body weight 2022-06-26 01:13:00 71.668 kg [facility] BMI 2022-06-26 01:13:00 28.90 kg/m2 [facility] Systolic blood pressure 2021-12-07 06:15:00 134 mm[Hg] [facility] Diastolic blood pressure 2021-12-07 06:15:00 72 mm[Hg] [facility] Heart rate 2021-12-07 06:15:00 73 /min [facility] Respiratory rate 2021-12-07 06:15:00 16 /min [facility] Oxygen saturation in Arterial blood by Pulse oximetry 2021-12-07 06:15:00 100 /min [facility] Body temperature 2021-12-07 03:30:00 36.94 Juana [facility] Body height 2021-12-07 03:30:[address] [facility] Body weight 2021-12-07 03:30:00 70.308 kg [facility] BMI 2021-12-07 03:30:00 28.35 kg/m2 [facility] Heart rate 2021-03-05 22:21:00 76 /min [facility] Body temperature 2021-03-05 22:21:00 37.17 Juana [facility] Respiratory rate 2021-03-05 22:21:00 16 /min [facility] Body height 2021-03-05 22:21:[address] [facility] Body weight 2021-03-05 22:21:[address] [facility] BMI 2021-03-05 22:21:00 31.74 kg/m2 [facility] Oxygen saturation in Arterial blood by Pulse oximetry 2021-03-05 22:21:00 97 /min [facility] Systolic blood pressure 2020-12-17 17:14:00 136 mm[Hg] [facility] Diastolic blood pressure 2020-12-17 17:14:00 75 mm[Hg] [facility] Heart rate 2020-12-17 17:14:00 92 /min Unive [facility] Body temperature 2020-12-17 17:14:00 36.61 Juana [facility] Respiratory rate 2020-12-17 17:14:00 20 /min [facility] Body weight 2020-12-17 17:14:00 77.111 kg [facility] BMI 2020-12-17 17:14:00 31.09 kg/m2 [facility] Oxygen saturation in Arterial blood by Pulse oximetry 2020-12-17 17:14:00 95 /min [facility] Systolic blood pressure 2020-10-30 14:30:00 156 mm[Hg] [facility] Diastolic blood pressure 2020-10-30 14:30:00 80 mm[Hg] [facility] Heart rate 2020-10-30 14:30:00 99 /min [facility] Respiratory rate 2020-10-30 14:30:00 20 /min [facility] Oxygen saturation in Arterial blood by Pulse oximetry 2020-10-30 14:30:00 100 /min [facility] Body temperature 2020-10-30 12:32:00 37.56 Juana [facility] Body height 2020-10-30 12:32:00 157.5 cm [facility] Body weight 2020-10-30 12:32:00 77.111 kg [facility] BMI 2020-10-30 12:32:00 31.09 kg/m2 [facility] Systolic blood pressure 2020-09-27 01:05:00 152 mm[Hg] [facility] Diastolic blood pressure 2020-09-27 01:05:00 89 mm[Hg] [facility] Heart rate 2020-09-27 01:05:00 90 /min [facility] 2020-09-27 01:05:00 16 /min [facility] Oxygen saturation in Arterial blood by Pulse oximetry 2020-09-27 01:05:00 99 /min [facility] Body temperature 2020-09-26 21:20:00 37.28 Juana [facility] Body height 2020-09-26 21:20:00 157.5 cm [facility] Body weight 2020-09-26 21:20:00 74.844 kg [facility] BMI 2020-09-26 21:20:00 30.18 kg/m2 [facility] Systolic blood pressure 2020-09-02 02:30:00 125 mm[Hg] [facility] Diastolic blood pressure 2020-09-02 02:30:00 66 mm[Hg] [facility] Heart rate 2020-09-02 02:30:00 106 /min Un[facility] Respiratory rate 2020-09-02 02:30:00 18 /min [facility] Oxygen saturation in Arterial blood by Pulse oximetry 2020-09-02 02:30:00 97 /min [facility] Body temperature 2020-09-02 00:02:31 38.5 Juana [facility] Body height 2020-09-01 22:28:00 154.9 cm [facility] Body weight 2020-09-01 22:28:00 74.39 kg [facility] BMI 2020-09-01 22:28:00 30.99 kg/m2 [facility] Oxygen saturation in Arterial blood by Pulse oximetry 2020-07-26 04:45:00 95 /min [facility] Systolic blood pressure 2020-07-26 04:45:00 132 mm[Hg] [facility] Diastolic blood pressure 2020-07-26 04:45:00 77 mm[Hg] [facility] Heart rate 2020-07-26 04:45:00 92 /min [facility] Respiratory rate 2020-07-26 03:00:00 20 /min [facility] Body temperature 2020-07-26 01:24:00 37.72 Juana [facility] Body height 2020-07-26 01:24:00 154.9 cm [facility] Body weight 2020-07-26 01:24:00 77.111 kg [facility] BMI 2020-07-26 01:24:00 32.12 kg/m2 [facility] BP Systolic 2024-02-13 16:33:00 135 mm[Hg] [...] Date / Time Performed Performing Clinician Source Fungal Culture Skin/Hair/Nails w/Smear 2024-11-11 00:00:00 [facility] RAPID STREP SCREEN FOR GROUP A 2024-10-13 02:36:00 Sarmad Rashid [facility] INFLUENZA A/B RSV COVID NAAT 2024-10-13 02:36:00 Sarmad Rashid [facility] AUTHORIZATION FOR RELEASE OF PHI 2023-04-26 05:01:00 Doctor Unassigned, [facility] AUTHORIZATION FOR RELEASE OF PHI 2023-04-17 05:01:00 Doctor Unassigned, [facility] XR KNEE 3 VW LEFT 2023-02-08 15:25:16 Maricarmen Talavera [facility] CONSENT/REFUSAL FOR DIAGNOSIS AND TREATMENT 2023-02-08 13:25:51 Doctor Unassigned, [facility] XR HIPS 3 VW LEFT 2022-11-28 23:35:00 John Maharaj [facility] CONSENT/REFUSAL FOR DIAGNOSIS AND TREATMENT 2022-11-28 22:22:03 Doctor Unassigned, [facility] LIPASE 2022-09-16 23:46:00 Dannielle [facility]iga [facility] TEST, SERUM 2022-09-16 23:46:00 Johnathon Arechiga [facility] COMP. METABOLIC PANEL ([id number]) 2022-09-16 23:46:00 Dannielle Arechiga [facility] CBC WITH DIFF 2022-09-16 23:46:00 Dannielle Arechiga [facility] URINALYSIS 2022-09-16 22:26:00 Dannielle [facility]chiga [facility] CONSENT/REFUSAL FOR DIAGNOSIS AND TREATMENT 2022-09-16 20:45:39 Doctor Unassigned, [facility] XR CHEST 2 VW 2022-06-26 02:03:35 [facility] FO[facility]+ VW BILATERAL 2022-06-26 02:03:35 Tyshawn Nicholson [facility] COMP. METABOLIC PANEL ([id number]) 2022-06-26 01:33:00 Ebenezer Nicholson [facility] CBC WITH DIFF 2022-06-26 01:33:00 [facility] 2022-06-26 01:33:00 Ebenezer Nicholson [facility] N-TERMINAL PRO-BNP 2022-06-26 01:33:00 Ebenezer Nicholson [facility] CONSENT/REFUSAL FOR DIAGNOSIS AND TREATMENT 2022-06-26 01:04:33 Doctor Unassigned, [facility] CONSENT/REFUSAL FOR DIAGNOSIS AND TREATMENT 2022-04-10 03:01:56 Doctor Unassigned, [facility] POCT GLUCOSE (AUTOMATED) 2021-12-07 06:58:00 Eladio Monsivais [facility] CT MAXILLOFACIAL/MANDIBLE WO CONTRAST 2021-12-07 05:31:00 Eladio Monsivais [facility] CT HEAD WO CONTRAST 2021-12-07 05:31:00 Eladio Monsivais [facility] XR CHEST 1 VW 2021-12-07 05:28:00 Eladio Monsivais [facility] XR HAND 3+ VW LEFT 2021-12-07 05:28:00 Eladio Monsivais [facility] POCT GLUCOSE (AUTOMATED) 2021-12-07 04:51:00 Eladio Monsivais [facility] URINALYSIS 2021-12-07 04:06:00 Eladio [facility] TROPONIN I 2021-12-07 03:58:00 Eladio [facility]ivais [facility] COMP. METABOLIC PANEL ([id number]) 2021-12-07 03:58:00 Eladio Monsivais [facility] CBC WITH DIFF 2021-12-07 03:58:00 Eladio Monsivais [facility] PROTHROMBIN TIME / INR 2021-12-07 03:58:00 Júnior Monsivais [facility] NOTICE OF PRIVACY PRACTICES 2021-12-07 03:20:07 Doctor Unassigned, [facility] CONSENT/REFUSAL FOR DIAGNOSIS AND TREATMENT 2021-12-07 03:18:34 Doctor Unassigned, [facility] XR ANKLE 3+ VW LEFT 2021-03-05 22:58:39 Vonnie Nathan [facility] CONSENT/REFUSAL FOR DIAGNOSIS AND TREATMENT 2021-03-05 22:02:12 Doctor Unassigned, [facility] XR ABDOMEN ACUTE SERIES 2020-12-17 18:13:15 Do deanne Jeffery [facility] LIPASE 2020-12-17 17:46:00 [facility] HEPATIC FUNCTION PANEL ([id number]) (ALB,T.PRO,BILI T,BU/BC,ALT,AST,ALK PHOS) 2020-12-17 17:46:00 Hermilo Jeffery [facility] BASIC METABOLIC PANEL (NA, K, CL, CO2, GLUCOSE, BUN, CREATININE, CA) 2020-12-17 17:46:00 Hermilo Jeffery [facility] CBC WITH DIFF 2020-12-17 17:46:[address] [facility] PROTHROMBIN TIME / INR 2020-12-17 17:46:00 Galindo Jeffery [facility] ACTIVATED PARTIAL THRMPLAS RUBIO 2020-12-17 17:46:00 Hermilo Jeffery [facility] URINALYSIS 2020-12-17 17:46:00 [facility] COVID-19 (ID NOW RAPID TESTING) 2020-12-17 17:46:00 Hermilo Jeffery [facility] NOTICE OF PRIVACY PRACTICES 2020-12-17 17:07:59 Doctor Unassigned, [facility] CONSENT/REFUSAL FOR DIAGNOSIS AND TREATMENT 2020-12-17 17:07:25 Doctor Unassigned, [facility] CT CHEST PULMONARY ANGIOGRAM 2020-10-30 14:24:45 John Maharaj [facility] POCT TEST 2020-10-30 14:14:00 Truong Maharaj [facility] XR CHEST 1 VW 2020-10-30 13:04:14 Kt Ratliff [facility] TEST, SERUM 2020-10-30 12:49:00 Faisal Ratliff [facility] TROPONIN I 2020-10-30 12:49:00 Kt Ratliff [facility] HEPATIC FUNCTION PANEL ([id number]) (ALB,T.PRO,BILI T,BU/BC,ALT,AST,ALK PHOS) 2020-10-30 12:49:00 Kt Ratliff [facility] BASIC METABOLIC PANEL (NA, K, CL, CO2, GLUCOSE, BUN, CREATININE, CA) 2020-10-30 12:49:00 Kt Ratliff [facility] CBC WITH DIFF 2020-10-30 12:49:00 Kt Ratliff [facility] PROTHROMBIN TIME / INR 2020-10-30 12:49:00 Sukumar Ratliff [facility] D-DIMER 2020-10-30 12:49:00 Kt Ratliff [facility] ACTIVATED PARTIAL THRMPLAS RUBIO 2020-10-30 12:49:00 Kt Ratliff [facility] RAPID STREP SCREEN FOR GROUP A 2020-10-30 12:49:00 Kt Ratliff [facility] ADC,CLC OR LCC ONLY - INFLUENZA A & B DIRECT ANTIGEN 2020-10-30 12:49:00 Kt Ratliff [facility] COVID-19 (ID NOW RAPID TESTING) 2020-10-30 12:49:00 Kt Ratliff [facility] NOTICE OF PRIVACY PRACTICES 2020-10-30 12:21:16 Doctor Unassigned, [facility] CONSENT/REFUSAL FOR DIAGNOSIS AND TREATMENT 2020-10-30 12:21:04 Doctor Unassigned, [facility] URINALYSIS 2020-09-26 22:51:00 [facility]ie [facility] XR CHEST 1 VW 2020-09-26 22:03:02 Carie Chanel [facility] LIPASE 2020-09-26 21:51:00 Carie Chanel [facility] TROPONIN I 2020-09-26 21:51:00 Carie Chanel [facility] COMP. METABOLIC PANEL ([id number]) 2020-09-26 21:51:00 Carie Chanel [facility] CBC WITH DIFF 2020-09-26 21:51:00 Carie Chanel [facility] N-TERMINAL PRO-BNP 2020-09-26 21:51:00 Carie Chanel [facility] CONSENT/REFUSAL FOR DIAGNOSIS AND TREATMENT 2020-09-26 21:08:31 Doctor Unassigned, [facility] CT CHEST PULMONARY ANGIOGRAM 2020-09-02 02:01:09 Luisito Chavis [facility] D-DIMER 2020-09-02 00:29:00 [facility] XR CHEST 1 VW 2020-09-01 23:08:31 Luisito Chavis [facility] [facility] PO[facility] TEST 2020-09-01 22:52:00 Luisito Chavis [facility] BLOOD CULTURE SCREEN 2020-09-01 22:47:00 Luisito Chavis [facility] COMP. METABOLIC PANEL (76035) 2020-09-01 22:47:00 Luisito Chavis [facility] CBC WITH DIFF 2020-09-01 22:47:00 Luisito [facility] URINALYSIS 2020-09-01 22:47:00 [facility] ADC,CLC OR [facility] ONLY - INFLUENZA A & B DIRECT ANTIGEN 2020-09-01 22:47:00 Luisito Chavis [facility] N-TERMINAL PRO-BNP 2020-09-01 22:47:00 Luisito Chavis [facility] LACTIC ACID WHOLE BLOOD 2020-09-01 22:47:00 Me hussein Chavis [facility] COVID-19 (ID NOW RAPID TESTING) 2020-09-01 22:47:00 Luisito Chavis [facility] NOTICE OF PRIVACY PRACTICES 2020-09-01 22:31:34 Doctor Unassigned, [facility] CONSENT/REFUSAL FOR DIAGNOSIS AND TREATMENT 2020-09-01 22:18:34 Doctor Unassigned, [facility] CT ABDOMEN PELVIS W CONTRAST 2020-07-26 04:10:32 Yolanda Bass [facility] LIPASE 2020-07-26 02:16:00 Yolanda [facility] COMP. METABOLIC PANEL (22303) 2020-07-26 02:16:00 Yolanda Bass [facility] CBC WITH DIFF 2020-07-26 02:16:00 [facility] 2020-07-26 02:16:00 Yolanda [facility] EKG-12 LEAD 2020-07-26 02:00:35 Yolanda [facility] NOTICE OF PRIVACY PRACTICES 2020-07-26 00:35:41 Doctor Unassigned, [facility] CONSENT/REFUSAL FOR DIAGNOSIS AND TREATMENT 2020-07-26 00:35:21 Doctor Unassigned, [facility] REFERRAL- REQUEST/RESPONSE 2020-07-05 05:01:00 Doctor Unassigned, [facility] Plan of Care Planned Activity Planned Date Details Comments Source Goal Plan of Care Note [code = 45646-3] Goal Plan of Care Note [code = 29443-4] Goal Plan of Care Note [code = 22649-3] Goal Plan of Care Note [code = 49846-1] Goal Plan of Care Note [code = 20204-7] Goal Plan of Care Note [code = 61188-6] Goal Plan of Care Note [code = 77266-8] Goal Plan of Care Note [code = 01252-0] Goal Plan of Care Note [code = 61285-2] Goal Plan of Care Note [code = 03804-4] Goal Plan of Care Note [code = 15108-6] Goal Plan of Care Note [code = 79948-0] Goal Plan of Care Note [code = 64656-1] Goal Plan of Care Note [code = 04734-3] Goal Plan of Care Note [code = 74240-6] Goal Plan of Care Note [code = 66604-7] Goal Plan of Care Note [code = 08811-4] Goal Plan of Care Note [code = 81871-1] Goal Plan of Care Note [code = 64964-9] Goal Plan of Care Note [code = 35923-0] Goal Plan of Care Note [code = 92231-6] Goal Plan of Care Note [code = 25641-7] Goal Plan of Care Note [code = 90052-0] Goal Plan of Care Note [code = 22762-7] Goal Plan of Care Note [code = 98132-0] Goal Plan of Care Note [code = 99435-3] Goal Plan of Care Note [code = 71535-8] Goal Plan of Care Note [code = 25948-9] Goal Plan of Care Note [code = 80745-7] Goal Plan of Care Note [code = 68501-8] Goal Plan of Care Note [code = 51952-8] Goal Plan of Care Note [code = 29727-1] Goal Plan of Care Note [code = 42869-4] Goal Plan of Care Note [code = 90410-0] Goal Plan of Care Note [code = 24816-5] Goal Plan of Care Note [code = 72546-9] Goal Plan of Care Note [code = 03676-6] Goal Plan of Care Note [code = 33805-4] Goal Plan of Care Note [code = 60564-2] Goal Plan of Care Note [code = 44493-4] Goal Plan of Care Note [code = 15965-7] Goal Plan of Care Note [code = 24505-0] Goal Plan of Care Note [code = 05418-9] Goal Plan of Care Note [code = 83847-4] Goal Plan of Care Note [code = 70736-4] Goal Plan of Care Note [code = 87066-7] Goal Plan of Care Note [code = 09773-0] Goal Plan of Care Note [code = 25425-6] Goal Plan of Care Note [code = 43149-2] Goal Plan of Care Note [code = 65364-7] Goal Plan of Care Note [code = 15721-1] Goal Plan of Care Note [code = 57360-4] Goal Plan of Care Note [code = 61990-2] Goal Plan of Care Note [code = 70226-7] Goal Plan of Care Note [code = 37531-5] Goal Plan of Care Note [code = 06633-5] Goal Plan of Care Note [code = 42695-3] Goal Plan of Care Note [code = 28472-0] Goal Plan of Care Note [code = 71317-5] Goal Plan of Care Note [code = 66881-1] Goal Plan of Care Note [code = 34373-7] Goal Plan of Care Note [code = 09761-5] Goal Plan of Care Note [code = 74302-4] Goal Plan of Care Note [code = 51168-6] Goal Plan of Care Note [code = 92537-3] Goal Plan of Care Note [code = 21785-5] Goal Plan of Care Note [code = 43806-0] Goal Plan of Care Note [code = 06079-4] Goal Plan of Care Note [code = 04815-3] Goal Plan of Care Note [code = 78472-8] Goal Plan of Care Note [code = 37325-2] Goal Plan of Care Note [code = 97368-2] Goal Plan of Care Note [code = 78630-5] Goal Plan of Care Note [code = 53270-3] Goal Plan of Care Note [code = 53491-7] Goal Plan of Care Note [code = 59990-9] Goal Plan of Care Note [code = 74016-5] Goal Plan of Care Note [code = 72643-1] Goal Plan of Care Note [code = 02144-2] Goal Plan of Care Note [code = 44037-8] Goal Plan of Care Note [code = 93523-8] Goal Plan of Care Note [code = 24556-6] Goal Plan of Care Note [code = 44679-4] Goal Plan of Care Note [code = 71852-5] Goal Plan of Care Note [code = 32324-3] Goal Plan of Care Note [code = 65263-7] Goal Plan of Care Note [code = 02484-7] Goal Plan of Care Note [code = 55447-3] Goal Plan of Care Note [code = 84077-1] Goal Plan of Care Note [code = 02706-5] Goal Plan of Care Note [code = 12209-1] Goal Plan of Care Note [code = 38868-7] Goal Plan of Care Note [code = 50929-2] Goal Plan of Care Note [code = 13729-8] Goal Plan of Care Note [code = 48961-0] Goal Plan of Care Note [code = 85017-7] Goal Plan of Care Note [code = 71210-8] Goal Plan of Care Note [code = 89378-7] Goal Plan of Care Note [code = 59788-1] Goal Plan of Care Note [code = 05297-3] Goal Plan of Care Note [code = 05366-3] Goal Plan of Care Note [code = 71120-3] Goal Plan of Care Note [code = 24561-2] Goal Plan of Care Note [code = 47329-9] Goal Plan of Care Note [code = 56552-3] Goal Plan of Care Note [code = 89886-7] Goal Plan of Care Note [code = 07665-9] Goal Plan of Care Note [code = 11992-2] Goal Plan of Care Note [code = 32078-1] Goal Plan of Care Note [code = 05144-4] Goal Plan of Care Note [code = 76656-5] Goal Plan of Care Note [code = 25363-5] Goal Plan of Care Note [code = 84819-4] Goal Plan of Care Note [code = 75139-7] Goal Plan of Care Note [code = 64172-2] Goal Plan of Care Note [code = 80286-6] Goal Plan of Care Note [code = 58067-7] Goal Plan of Care Note [code = 87601-6] Goal Plan of Care Note [code = 83404-7] Goal Plan of Care Note [code = 74614-5] Goal Plan of Care Note [code = 22631-6] Goal Plan of Care Note [code = 77310-3] Goal Plan of Care Note [code = 06103-5] Goal Plan of Care Note [code = 16965-1] Goal Plan of Care Note [code = 15931-2] Goal Plan of Care Note [code = 29239-2] Goal Plan of Care Note [code = 93646-1] Goal Plan of Care Note [code = 46823-7] Goal Plan of Care Note [code = 50552-9] Goal Plan of Care Note [code = 00420-6] Goal Plan of Care Note [code = 26799-7] Goal Plan of Care Note [code = 83077-8] Goal Plan of Care Note [code = 72616-5] Goal Plan of Care Note [code = 00992-8] Goal Plan of Care Note [code = 11439-0] Goal Plan of Care Note [code = 85313-4] Goal Plan of Care Note [code = 56540-1] Goal Plan of Care Note [code = 46036-1] Goal Plan of Care Note [code = 79020-2] Goal Plan of Care Note [code = 06250-8] Goal Plan of Care Note [code = 51383-7] Goal Plan of Care Note [code = 73683-1] Goal Plan of Care Note [code = 40373-9] Goal Plan of Care Note [code = 57508-7] Goal Plan of Care Note [code = 85453-4] Goal Plan of Care Note [code = 39208-0] Goal Plan of Care Note [code = 93888-6] Goal Plan of Care Note [code = 88918-1] Goal Plan of Care Note [code = 53251-4] Goal Plan of Care Note [code = 23839-7] Goal Plan of Care Note [code = 58890-4] Goal Plan of Care Note [code = 61203-4] Goal Plan of Care Note [code = 05290-3] Goal Plan of Care Note [code = 68729-8] Goal Plan of Care Note [code = 73624-1] Goal Plan of Care Note [code = 25960-6] Goal Plan of Care Note [code = 67660-9] Goal Plan of Care Note [code = 87376-4] Goal Plan of Care Note [code = 42044-4] Goal Plan of Care Note [code = 23226-6] Goal Plan of Care Note [code = 19247-6] Goal Plan of Care Note [code = 87509-8] Goal Plan of Care Note [code = 11399-5] Goal Plan of Care Note [code = 03401-3] Goal Plan of Care Note [code = 81527-9] Goal Plan of Care Note [code = 86454-3] Goal Plan of Care Note [code = 04482-9] Goal Plan of Care Note [code = 43825-6] Goal Plan of Care Note [code = 57340-7] Goal Plan of Care Note [code = 57404-4] Goal Plan of Care Note [code = 89956-8] Goal Plan of Care Note [code = 50875-8] Goal Plan of Care Note [code = 52881-0] Goal Plan of Care Note [code = 76234-4] Goal Plan of Care Note [code = 06907-7] Goal Plan of Care Note [code = 20144-0] Goal Plan of Care Note [code = 70510-8] Goal Plan of Care Note [code = 03427-1] Goal Plan of Care Note [code = 13417-4] Goal Plan of Care Note [code = 65139-5] Goal Plan of Care Note [code = 99197-8] Goal Plan of Care Note [code = 09117-8] Goal Plan of Care Note [code = 40540-2] Goal Plan of Care Note [code = 39077-0] Goal Plan of Care Note [code = 99157-2] Goal Plan of Care Note [code = 56012-2] Goal Plan of Care Note [code = 21940-4] Goal Plan of Care Note [code = 18832-8] Goal Plan of Care Note [code = 03559-7] Goal Plan of Care Note [code = 93835-5] Goal Plan of Care Note [code = 01686-6] Goal Plan of Care Note [code = 41147-5] Goal Plan of Care Note [code = 37655-6] Goal Plan of Care Note [code = 53260-1] Goal Plan of Care Note [code = 17004-2] Goal Plan of Care Note [code = 02216-2] Goal Plan of Care Note [code = 04774-9] Goal Plan of Care Note [code = 65512-0] Goal Plan of Care Note [code = 64098-4] Goal Plan of Care Note [code = 96475-8] Goal Plan of Care Note [code = 57065-9] Goal Plan of Care Note [code = 69319-3] Goal Plan of Care Note [code = 61699-3] Goal Plan of Care Note [code = 02158-1] Goal Plan of Care Note [code = 42569-6] Goal Plan of Care Note [code = 00881-3] Goal Plan of Care Note [code = 88998-0] Goal Plan of Care Note [code = 85711-8] Goal Plan of Care Note [code = 94659-7] Goal Plan of Care Note [code = 81708-9] Goal Plan of Care Note [code = 52058-0] Goal Plan of Care Note [code = 20189-3] Goal Plan of Care Note [code = 75586-5] Goal Plan of Care Note [code = 19563-9] Goal Plan of Care Note [code = 92739-5] Goal Plan of Care Note [code = 43354-3] Goal Plan of Care Note [code = 09842-3] Goal Plan of Care Note [code = 53691-8] Goal Plan of Care Note [code = 54435-3] Goal Plan of Care Note [code = 60901-8] Goal Plan of Care Note [code = 03202-6] Goal Plan of Care Note [code = 97017-7] Goal Plan of Care Note [code = 25809-0] Goal Plan of Care Note [code = 41044-9] Encounters Start Date/Time End Date/Time Encounter Type Admission Type Attending [facility] Care Department Encounter ID Source 2024-10-30 10:25:00 Outpatient Stuart Valles [facility] [id number] [facility] 2024-11-16 00:00:00 2024-12-17 23:53:00 Telephone Glenn [facility] 1..840.114 350.1.13.70 8.2.7.2.686 [id number] Phuong birch [facility] 2024-11-11 09:52:18 2024-11-11 11:04:54 Outpatient Elective JOHN ADDISON EOUT EOUT [id number] [facility] 2024-11-11 09:30:00 2024-11-11 09:40:00 Consult [facility] ..840.114 350.1.13.70 8.2.7.2.686 [id number] Phuong birch [facility] 2024-11-05 00:00:00 2024-11-05 00:00:00 Outpatient DALY MEJIAS SHELBY SHELBY [id number] Shelby Olvera 2024-10-30 00:00:00 2024-10-30 00:00:00 [facility] [id number] [facility] 2024-10-12 19:55:00 2024-10-12 22:49:00 Emergency X SARMAD RASHID SHINTA WIZAN ERT [id number] [facility] 2024-10-12 19:55:00 2024-10-12 22:49:00 Emergency Sarmad Rashid [facility] 1.2.840.114 350.1.13.10 4.2.7.2.686 [id number] [facility] 2024-09-24 00:00:00 2024-09-24 00:00:00 Outpatient DALY MEJIAS SHELBY PATTERSON [id number] [facility] 2024-08-26 00:00:00 2024-08-26 00:00:00 Outpatient ADLY MEJIAS SHELBY PATTERSON [id number] [facility] 2024-02-17 11:24:53 2024-02-17 11:24:53 Outpatient SFA SFA [id number] Óscar Zavala 2024-02-13 16:21:03 2024-02-13 16:21:03 Outpatient SFA SFA [id number] Óscar Zavala 2024-02-13 00:00:00 2024-02-13 00:00:00 Outpatient Visit SFA [id number] [id number] Óscar Zavala 2023-12-24 10:45:00 2023-12-24 10:45:00 Outpatient DALY MEJIAS SHELBY PATTERSON [id number] [facility] 2023-12-17 16:47:51 2023-12-17 16:47:51 Outpatient SFA SFA [id number] Óscar Zavala 2023-12-11 14:22:41 2023-12-11 14:22:41 Outpatient SFA [facility] [id number] Óscar Zavala 2023-11-18 11:00:00 2023-11-18 11:00:00 Outpatient PREZADALY Wang SHELBY [id number] Shelby Ferrariyoli 2023-10-17 00:00:00 2023-10-17 00:00:00 Outpatient PREZAS, DALY PATTERSON SHELBY [id number] Shelby [facility] 2023-10-16 00:00:00 2023-10-16 00:00:00 Outpatient PREZAS, DALY PATTERSON SHELBY [id number] [facility] 2023-10-15 00:00:00 2023-10-15 00:00:00 Outpatient PREZAS, DALY PATTERSON SHELBY [id number] Shelby [facility] 2023-10-14 09:45:00 2023-10-14 09:45:00 Outpatient LABGera PATTERSON SHELBY [id number] [facility] 2023-10-14 08:45:00 2023-10-14 08:45:00 Outpatient PREZAS, DALY PATTERSON SHELBY [id number] Shelby [facility] 2023-08-14 11:42:13 2023-08-14 11:42:13 Outpatient SFA [facility] [id number] Óscar Zavala 2023-07-09 15:49:57 2023-07-09 15:49:57 Outpatient SFA [facility] [id number] Óscar Zavala 2023-04-26 00:00:00 2023-04-26 00:00:00 Orders Only Doctor Unassigned, [facility] 1.2.840.114 350.1.13.10 4.2.7.2.686 [id number] [facility] 2023-04-23 10:17:21 2023-04-23 10:17:21 Outpatient SFA [facility] [id number] Óscar Zavala 2023-04-17 00:00:00 2023-04-17 00:00:00 Orders Only Doctor Unassigned, [facility] 1.2840.114 350.1.13.10 4.2.7.2.686 [id number] [facility] 2023-02-08 08:35:00 2023-02-08 12:02:00 Emergency X Maricarmen TALAVERA [facility] ERT [id number] [facility] 2023-02-08 08:35:00 2023-02-08 12:02:00 Emergency Maricarmen Talavera Purnima [facility] 1.2.840.114 350.1.13.10 4.2.7.2.686 [id number] [facility] 2023-02-08 00:00:00 2023-02-08 00:00:00 Patient Secure Msg Doctor Unassigned, [facility] 1.2840.114 350.1.13.10 4.2.7.2.686 [id number] [facility] 2022-12-17 14:21:59 2022-12-17 14:21:59 Outpatient SFA [facility] [id number] Óscar Rose Lucas 2022-11-28 16:34:00 2022-11-28 18:21:00 Emergency JOHN DE LA CRUZ [facility] ERT [id number] [facility] 2022-11-28 16:34:00 2022-11-28 18:21:00 Emergency John Maharaj [facility] 1.2840.114 350.1.13.10 4.2.7.2.686 [id number] [facility] 2022-11-28 13:54:29 2022-11-28 13:54:29 Outpatient SFA SFA [id number] Óscar F Lucas 2022-11-08 10:17:59 2022-11-08 10:17:59 Outpatient SFA SFA [id number] Óscar Rose Lucas 2022-10-30 08:40:52 2022-10-30 08:40:52 Outpatient SFA SFA [id number] Óscar Zavala 2022-10-23 17:01:52 2022-10-23 17:01:52 Outpatient SFA [facility] [id number] Óscar Zavala 2022-10-23 00:00:00 2022-10-23 00:00:00 Outpatient Visit [id number]-45d0-9 aa1-30126z d0ef99 2022-09-16 14:58:00 2022-09-16 19:08:00 Emergency X DANNIELLE ARECHIGA [facility] ERT [id number] [facility] 2022-09-16 14:58:00 2022-09-16 19:08:00 Emergency Dannielle Arechiga [facility] 1.2.840.114 350.1.13.10 4.2.7.2.686 [id number] [facility] 2022-08-15 10:49:03 2022-08-15 10:49:03 Outpatient SFA [facility] [id number] Óscar Zavala 2022-07-02 00:00:00 2022-07-02 00:00:00 Outpatient Visit [id number] [id number]-[id number] -[id number] [id number] l5c-7f26-8 fa8-5933fc 91e4b7 2022-06-25 20:19:00 2022-06-25 21:54:00 Emergency X EBENEZER NICHOLSON [facility] ERT [id number] [facility] 2022-06-25 20:19:00 2022-06-25 21:54:00 Emergency Ebenezer Nicholson [facility] 1.2.840.114 350.1.13.10 4.2.7.2.686 [id number] [facility] 2022-06-05 00:00:00 2022-06-05 00:00:00 Outpatient Visit [id number] -8eaf-d0a [id number] [id number] eaf-d0acf8 31c2b3 2022-05-07 00:00:00 2022-05-07 00:00:00 Outpatient Visit [id number] -9565-dac [id number] [id number] 740-4024-9 565-dac46b 95debf 2022-04-09 22:07:00 2022-04-09 22:08:00 Emergency X SARAVANAN [facility] ERT [id number] [facility] 2022-04-09 22:07:00 2022-04-09 22:08:00 Emergency Saravanan [facility] 1.2.840.114 350.1.13.10 4.2.7.2.686 [id number] [facility] 2021-12-06 21:21:00 2021-12-07 01:08:00 Emergency X ELADIO MONSIVAIS [facility] ERT [id number] [facility] 2021-12-06 21:21:00 2021-12-07 01:08:00 Emergency Eladio Monsivais [facility] 1.2.840.114 350.1.13.10 4.2.7.2.686 [id number] [facility] 2021-06-23 22:09:00 2021-06-23 22:10:00 Emergency PitaYolanda chris [facility] 1.2.840.114 350.1.13.10 4.2.7.2.686 [id number] [facility] 2021-06-23 21:42:00 2021-06-23 21:42:00 Emergency X YOLANDA BASS [facility] ERT [id number] [facility] 2021-03-05 17:25:00 2021-03-05 18:39:00 Emergency Vonnie Nathan [facility] 1.2.840.114 350.1.13.10 4.2.7.2.686 [id number] [facility] 2021-03-05 17:25:00 2021-03-05 18:39:00 Emergency X VONNIE NATHAN [facility] ERT [id number] [facility] 2020-12-17 11:09:00 2020-12-17 12:55:00 Emergency Hermilo Jeffery [facility] 1.2.840.114 350.1.13.10 4.2.7.2.686 [id number] [facility] 2020-12-17 11:09:00 2020-12-17 12:55:00 Emergency X HERMILO JEFFERY [facility] ERT [id number] [facility] 2020-10-30 06:26:00 2020-10-30 09:25:00 Emergency Kt Ratliff [facility] 1.2.840.114 350.1.13.10 4.2.7.2.686 [id number] [facility] 2020-10-30 06:22:00 2020-10-30 06:22:00 Emergency X [facility] ERT [id number] [facility] 2020-09-26 15:22:00 2020-09-26 19:20:00 Emergency Carie Chanel [facility] 1.2.840.114 350.1.13.10 4.2.7.2.686 [id number] [facility] 2020-09-26 15:22:00 2020-09-26 19:20:00 Emergency X DARÍO CARIE [facility] ERT [id number] [facility] 2020-09-01 16:25:00 2020-09-01 20:55:00 Emergency Luisito Chavis [facility] 1.2.840.114 350.1.13.10 4.2.7.2.686 [id number] [facility] 2020-09-01 16:25:00 2020-09-01 16:25:00 Emergency X LUISITO CHAVIS [facility] ERT [id number] [facility] 2020-09-01 00:00:00 2020-09-01 00:00:00 Nurse Triage Ly Yepez [facility] 1.2.840.114 350.1.13.10 4.2.7.2.686 [id number] [facility] 2020-08-08 00:00:00 2020-08-08 00:00:00 Letter (Out) Mckayla Masterson [facility] 1.2.840.114 350.1.13.10 4.2.7.2.686 [id number] [facility] 2020-07-25 20:28:00 2020-07-25 23:58:00 Emergency Yolanda Bass [facility] 1.2.840.114 350.1.13.10 4.2.7.2.686 [id number] [facility] 2020-07-25 19:37:00 2020-07-25 19:37:00 Emergency X [facility] ERT [id number] [facility] 2020-07-05 00:00:00 2020-07-05 00:00:00 Orders Only Doctor Unassigned, [facility] 1.2.840.114 350.1.13.10 4.2.7.2.686 [id number] [facility] 2018-07-15 08:45:00 2018-07-15 08:45:00 Outpatient [facility] [id number] [facility] 2018-01-07 14:30:00 2018-01-07 14:30:00 [facility] Medicine [id number] [facility] Results Test Description Test Time Test Comments Results Result Co mments Source LIPID [id number] 03:31:26* Test Item Value Reference Range Interpretation [...] SPECIMENS. FOR MOREINFORMATION, SEE CLIENT ANNOUNCEMENT AT [email or web address] /[email or web address] [email or web address] RATIO LDL/HDL (test code = 2238) 2.18 RATIO <3.22 UNLESS OTHERW ISE INDICATED, ALL TESTING PERFORMED AT [facility] [address] [place] [address] [employer] ATTENDANT: JOSE MORALES M.D. CLIA NUMBER [id number] [facility] [place]. [id number] HEMOGLOBIN [id number] 02:53:39* Test Item Value Reference Range Interpretation Comme nts HEMOGLOBIN A1c (test code = 12719) 11.7 % 4.2-5.6 H [employer] GUIDELINES FOR HGB A1C: [...] MG/DL eGFR (2020 CKD-EPI) (test code = 13276) 109 ML/MIN/1.73 CALC BUN/CREAT (test code = [...] code = 2219) 19 U/L Óscar Rose LucasLIPID PANEL [ADDED]2024-02-18 00:00:00* Test Item Value Reference Range Interpretation Comme nts CHOLESTEROL (test code = 2210) 207 MG/DL TRIGLYCERIDES (test code = 2232) 145 MG/DL HDL CHOLESTEROL (test code = 2220) 57 MG/DL CALC LDL CHOL (test code = 2237) 124 MG/DL RISK RATIO LDL/HDL (test cod e = 2238) 2.18 RATIO Óscar ZavalaHEMOGLOBIN [id number] 00:00:00* Test Item Value Reference Range Interpretation Comme nts HEMOGLOBIN A1c (test code = 94663) 11.7 % Óscar Rose LucasCOMPREHENSIVE METABOLIC [id number] 10:46:21* Test Item Value Reference Range Interpretation Comme nts GLUCOSE (test code = 2217) 173 MG/DL 70-99 H BUN (test code = 2208) 7 MG/DL 6-20 CREATININE (test code = 2214) 0.56 MG/DL 0.60-1.30 L eGFR (2020 CKD-EPI) (test code = 78087) 110 ML/MIN/1.73 >60 CALC BUN/CREAT (test code [...] RATIO 1.0-2.6 BILIRUBIN, TOTAL (test code = 220) 0.3 MG/DL See_Comment [Automated me ssage] The system which generated this result transmitted reference range: <=1.2. The reference range was not used to interpret this result as normal/abnormal. ALKALINE PHOSPHATASE (test code = 2203) 101 U/L 40-130 AST (test code = 221) 14 U/L 9-40 ALT (test code = 221) 15 U/L 5-40 UNLESS OTHERWISE INDICATED, [facility] [address] [place] [address] P[employer] R[employer] ATTENDANT: KEVIN FRANCO M.D. CLIA NUMBER [id number] [facility] [place]. [id number] LIPID [id number] 10:46:21* Test Item Value Reference Range Interpretation [...] SPECIMENS. FOR MOREINFORMATION, SEE CLIENT ANNOUNCEMENT AT [email or web address] [email or web address] RATIO LDL/HDL (test code = 2238) 1.98 RATIO <3.22 HEMOGLOBIN [id number] 07:47:20* Test Item Value Reference Range Interpretation Comme [facility] HEMOGLOBIN A1c (test code = 84275) 12.0 % 4.2-5.6 H [employer] GUIDELINES FOR HGB A1C: [...] CONSIDER ALTERNATE TESTING OR LABORATORY CONSULTATION. LIPID [id number] 00:00:00* Test Item Value Reference Range Interpretation Comme nts CHOLESTEROL (test code = 2210) 199 MG/DL TRIGLYCERIDES (test code = 2232) 149 MG/DL HDL CHOLESTEROL (test code = 2220) 58 MG/DL CALC LDL CHOL (test code = 2237) 115 MG/DL RISK RATIO LDL/HDL (test cod e = 2238) 1.98 RATIO Óscar Rose LucasCOMPREHENSIVE METABOLIC [id number] 00:00:00* Test Item Value Reference Range Interpretation Comme nts GLUCOSE (test code = 2217) 173 MG/DL BUN (test code = 2208) 7 MG/DL CREATININE (test code = 2214) 0.56 MG/DL eGFR (2020 CKD-EPI) (test code = 65943) 110 ML/MIN/1.73 CALC BUN/CREAT (test code = [...] code = 2219) 15 U/L Óscar ZavalaHEMOGLOBIN [id number] 00:00:00* Test Item Value Reference Range Interpretation Comme maci HEMOGLOBIN A1c (test code = 59641) 12.0 % Óscar ZavalaPOCT GLUCOSE (AUTOMATED)2021-12-07 07:06:55* Test Item Value Reference Range Interpretation Comme [facility] POCT GLU (test code = 7960282685) 292 mg/dL 70-110 H Lab Interpretation (test cod e = 37002-0) Abnormal [facility] GLUCOSE (AUTOMATED)2021-12-07 04:55:44* Test Item Value Reference Range Interpretation Comme [facility] POCT GLU (test code = 4426835017) 440 mg/dL 70-110 H Lab Interpretation (test cod e = 07615-2) Abnormal [facility]. METABOLIC PANEL (19224)2021-12-07 04:40:58* Test Item Value Reference Range Interpretation Comme [facility] NA (test code = 9446659899) 133 mmol/L 135-145 L K (test code = 0763468405) 4.2 mmol/L 3.5-5.0 CL (test code = 9852352796) 97 mmol/L 98-108 L CO2 TOTAL (test code = 8957362812) 25 mmol/L 23-31 AGAP (test code = 4973478098) 2-16 BUN (test code = 9601502485) 11 mg/dL 7-23 GLUCOSE (test code = 7570362177) 519 mg/dL 70-110 HH CREATININE (test code = 5720037322) 0.65 mg/dL 0.50-1.04 TOTAL BILI (test code = 6809929537) 0.4 mg/dL 0.1-1.1 CALCIUM (test code = 9884774873) 8.8 mg/dL 8.6-10.6 T PROTEIN (test code = 2236565248) 6.9 g/dL 6.3-8.2 ALBUMIN (test code = 0526010022) 3.9 g/dL 3.5-5.0 ALK PHOS (test code = 1862291174) 113 U/L 34-122 ALTv (test code = 1742-6) 25 U/L 5-35 AST(SGOT) (test code = 4528367587) 32 U/L 13-40 eGFR (test code = 6273433313) mL/min/1.73m2 MATTHEW (test code = MATTHEW) Association [...] imaging tests). Lab Interpretation (test code = 43771-6) [facility] [id number] 04:33:26* Test Item Value Reference Range Interpretation Comments TROPONIN I (test code = 1018391149) <0.012 See_Comment [Automated message] The system which [...] of biotin. Lab Interpretation (test code = 47446-3) Normal [facility] CenterPROTHROMBIN TIME / [id number] 04:13:03* Test Item Value Reference Range Interpretation Comme nts PROTIME PATIENT (test code = 5964-2) See_Comment [Automated [employer]] The system which generated this result transmitted reference range: 12.0 - 14.7 Seconds. The reference range was not used to interpret this result as normal/abnormal. INR (test code = 6301-6) Normal INR <1.1; Warfarin Therapeutic range 2.0 to 3.0 or 2.5 to 3.5, depending upon the indications. Lab Interpretation (test code = 59232-3) Normal [facility] CenterCBC WITH [id number] 04:06:26* Test Item Value Reference Range Interpretation Comme nts WBC (test code = 6690-2) See_Comment [Automated [employer]] The system which generated this result transmitted reference range: 4.30 - 11.10 10*3/?L. The reference range was not used to interpret this result as normal/abnormal. RBC (test code = 789-8) See_Comment [Automated [employer]] The system which generated this result transmitted [...] 33.3 g/dL 31.6-35.1 RDW-SD (test code = 62137-1) 39.2 fL 39.0-49.9 RDW-CV (test code = 788-0) 12.2 % 12.0-15.5 PLT (test code = 777-3) See_Comment [Automated messa ge] The system which generated this result transmitted reference range: 166 - 358 10*3/?L. The reference range was not used to interpret this result as normal/abnormal. MPV (test code = 36771-1) 10.4 fL 9.5-12.9 NRBC/100 WBC (test code = 5952565066) See_Comment [Automated me ssage] The system which generated this result transmitted reference range: 0.0 - 10.0 /100 WBCs. The reference range was not used to interpret this result as normal/abnormal. NRBC x10^3 (test code = 3491399174) <0.01 See_Comment [Automated me ssage] The system which generated this result transmitted reference range: 10*3/?L. The reference range was not used to interpret this result as normal/abnormal. GRAN MAT (NEUT) % (test code = 770-8) 45.7 % IMM GRAN % (test code = 0457575050) 0.50 % LYMPH % (test code = 736-9) 38.7 % MONO % (test code = 5905-5) 10.4 % EOS % (test code = 713-8) 4.1 % BASO % (test code = 706-2) 0.6 % GRAN MAT x10^3(ANC) (test code = 6272058039) 3.00 10*3/uL 1.88-7.09 IMM GRAN x10^3 (test code = 8834842999) 0.03 10*3/uL 0.00-0.06 LYMPH x10^3 (test code = 731-0) 2.54 10*3/uL 1.32-3.29 MONO x10^3 (test code = 742-7) 0.68 10*3/uL 0.33-0.92 EOS x10^3 (test code = 711-2) 0.27 10*3/uL 0.03-0.39 BASO x10^3 (test code = 704-7) 0.04 10*3/uL 0.01-0.07 [facility]CUBL[facility], [id number] 00:00:00* Test Item Value Reference Range Interpretation Comme nts CULTURE, URINE (test code = 33388) SPECIMEN NUMBER: [id number] CULTURE, [id number] 00:00:00* Test Item Value Reference Range Interpretation Comme nts CULTURE, URINE (test code = 16420) SPECIMEN NUMBER: [id number] CULTURE, [id number] 00:00:00* Test Item Value Reference Range Interpretation Comme nts CULTURE, URINE (test code = 06551) SPECIMEN NUMBER: [id number] CULTURE, [id number] 00:00:00* Test Item Value Reference Range Interpretation Comme nts CULTURE, URINE (test code = 64185) SPECIMEN NUMBER: [id number] CULTURE, [id number] 00:00:00* Test Item Value Reference Range Interpretation Comme nts CULTURE, URINE (test code = 54108) SPECIMEN NUMBER: [id number] Óscar F AustinVAGINAL PATHOGENS DNA [id number] 00:00:00* Test Item Value Reference Range Interpretation Comme nts KASSI SPECIES (test code = ) NEGATIVE G. VAGINALIS (test code = 33032) POSITIVE T. VAGINALIS (test code = 43334) NEGATIVE VAGINAL PATHOGENS DNA [id number] 00:00:00* Test Item Value Reference Range Interpretation Comme nts KASSI SPECIES (test code = 84812) NEGATIVE G. VAGINALIS (test code = 50867) POSITIVE T. VAGINALIS (test code = 13658) NEGATIVE VAGINAL PATHOGENS DNA [id number] 00:00:00* Test Item Value Reference Range Interpretation Comme nts KASSI SPECIES (test code = 62302) NEGATIVE G. VAGINALIS (test code = 47728) POSITIVE T. VAGINALIS (test code = 57221) NEGATIVE VAGINAL PATHOGENS DNA [id number] 00:00:00* Test Item Value Reference Range Interpretation Comme nts KASSI SPECIES (test code = 99194) NEGATIVE G. VAGINALIS (test code = 77307) POSITIVE T. VAGINALIS (test code = 40736) NEGATIVE VAGINAL PATHOGENS DNA [id number] 00:00:00* Test Item Value Reference Range Interpretation Comme nts KASSI SPECIES (test code = 60387) NEGATIVE G. VAGINALIS (test code = 39717) POSITIVE T. VAGINALIS (test code = 86505) NEGATIVE Óscar MunsonAG MAMM BILATERAL HERNANDEZ CAD [id number] 08:00:36 Name: Stew : 1970 Sex: F - DIAG MAMM BILATERAL HERNANDEZ CAD DIGITALBILATERAL DIGITAL DIAGNOSTIC MAMMOGRAM 3D/2D WITH CAD: 04/06/2021LINICAL: Abnormal Report from CT scan. Digital breast tomosynthesis was performed in addition to routine CC and MLO views. Current mammographic images were evaluated by [employer] CAD (computer-aided detection) software. Comparison is made to exam dated 04/25/2015 mammogram - [facility]. The tissue of both breasts [...] to exam dated 04/25/2015 mammogram - [facility]. Real-time ultrasound of both breasts and both axilla and clinical breast exam were performed. No abnormalities were seen sonographically in either breast or either axilla. Clinical breast exam was unremarkable.IMPRESSION: NEGATIVE There is no sonographic evidence of malignancy. Resume annual screening mammography in one year. Carmel Hensley M.D. dm/:04/07/2021 08:00:36 Entry: - 108:18:04Imaging Technologist: Bonnie Esteban FW, [facility]- FWletter sent: BIRADS 1-2 Combo FU Letter Mammogram BI-RADS: 0 Incomplete: Additional Imaging Evaluation Needed Ultrasound BI-RADS: 1 NegativeBREAST ULTRASOUND [id number] 08:00:36 Name: Stew : 1970 Sex: F - DIAG MAMM BILATERAL HERNANDEZ CAD DIGITALBILATERAL DIGITAL DIAGNOSTIC MAMMOGRAM 3D/2D WITH CAD: 04/06/2021LINICAL: Abnormal Report from CT scan. Digital breast tomosynthesis was performed in addition to routine CC and MLO views. Current mammographic images were evaluated by [employer] CAD (computer-aided detection) software. Comparison is made to exam dated 04/25/2015 mammogram - [facility]. The tissue of both breasts [...] to exam dated 04/25/2015 mammogram - [facility]. Real-time ultrasound of both breasts and both axilla and clinical breast exam were performed. No abnormalities were seen sonographically in either breast or either axilla. Clinical breast exam was unremarkable.IMPRESSION: NEGATIVE There is no sonographic evidence of malignancy. Resume annual screening mammography in one year. Carmel Hensley M.D. dm/:04/07/2021 08:00:36 Entry: cheikh - 108:18:04Imaging Technologist: Bonnie Esteban FW, [facility]- FWletter sent: BIRADS 1-2 Combo FU Letter Mammogram BI-RADS: 0 Incomplete: Additional Imaging Evaluation Needed Ultrasound BI-RADS: 1 NegativeH. PYLORI (BREATH)2021-03-04 00:00:00* Test Item Value Reference Range Interpretation Comme nts H. PYLORI (BREATH) (test cod e = 43486) POSITIVE H. PYLORI (BREATH)2021-03-04 00:00:00* Test Item Value Reference Range Interpretation Comme nts H. PYLORI (BREATH) (test cod e = 52379) POSITIVE H. PYLORI (BREATH)2021-03-04 00:00:00* Test Item Value Reference Range Interpretation Comme nts H. PYLORI (BREATH) (test cod e = 50265) POSITIVE H. PYLORI (BREATH)2021-03-04 00:00:00* Test Item Value Reference Range Interpretation Comme nts H. PYLORI (BREATH) (test cod e = 61267) POSITIVE H. PYLORI (BREATH)2021-03-04 00:00:00* Test Item Value Reference Range Interpretation Comme nts H. PYLORI (BREATH) (test cod e = 58280) POSITIVE [facility]LA[facility] [id number] 00:00:00* Test Item Value Reference Range Interpretation [...] (test code = 1015) 387 K/UL HEMOGLOBIN [id number] 00:00:00* Test Item Value Reference Range Interpretation Comme nts HEMOGLOBIN A1c (test code = 30415) 11.1 % LIPID [id number] 00:00:00* Test Item Value Reference Range Interpretation Comme nts CHOLESTEROL (test code = 2210) 185 MG/DL TRIGLYCERIDES (test code = 2232) 190 MG/DL HDL CHOLESTEROL (test code = 2220) 49 MG/DL CALC LDL CHOL (test code = 2237) 105 MG/DL RISK RATIO LDL/HDL (test cod e = 2238) 2.14 RATIO COMPREHENSIVE METABOLIC [id number] 00:00:00* Test Item Value Reference Range Interpretation Comme nts GLUCOSE (test code = 2217) 371 MG/DL BUN (test code = 2208) 11 MG/DL CREATININE (test code = 2214) 0.61 MG/DL eGFR AMER. (test cod e = 28389) 123 ML/MIN/1.73 eGFR NON- AMER. (test code = 57585) 106 ML/MIN/1.73 CALC BUN/CREAT (test code = [...] ALT (test code = 2219) 20 U/L [id number] 00:00:00* Test Item Value Reference Range Interpretation Comme nts TSH, THIRD GENERATION (test code = 2821) 1.180 UIU/ML H. PYLORI (BREATH)2021-01-20 00:00:00* Test Item Value Reference Range Interpretation Comme nts H. PYLORI (BREATH) (test cod e = 46443) POSITIVE CBC W/AUTO [id number] 00:00:00* Test Item Value Reference Range Interpretation [...] (test code = 1015) 387 K/UL HEMOGLOBIN [id number] 00:00:00* Test Item Value Reference Range Interpretation Comme nts HEMOGLOBIN A1c (test code = 90182) 11.1 % LIPID [id number] 00:00:00* Test Item Value Reference Range Interpretation Comme nts CHOLESTEROL (test code = 2210) 185 MG/DL TRIGLYCERIDES (test code = 2232) 190 MG/DL HDL CHOLESTEROL (test code = 2220) 49 MG/DL CALC LDL CHOL (test code = 2237) 105 MG/DL RISK RATIO LDL/HDL (test cod e = 2238) 2.14 RATIO COMPREHENSIVE METABOLIC [id number] 00:00:00* Test Item Value Reference Range Interpretation Comme nts GLUCOSE (test code = 2217) 371 MG/DL BUN (test code = 2208) 11 MG/DL CREATININE (test code = 2214) 0.61 MG/DL eGFR AMER. (test cod e = 26671) 123 ML/MIN/1.73 eGFR NON- AMER. (test code = 49014) 106 ML/MIN/1.73 CALC BUN/CREAT (test code = [...] ALT (test code = 2219) 20 U/L [id number] 00:00:00* Test Item Value Reference Range Interpretation Comme nts TSH, THIRD GENERATION (test code = 2821) 1.180 UIU/ML H. PYLORI (BREATH)2021-01-20 00:00:00* Test Item Value Reference Range Interpretation Comme nts H. PYLORI (BREATH) (test cod e = 69087) POSITIVE CBC W/AUTO [id number] 00:00:00* Test Item Value Reference Range Interpretation [...] (test code = 1015) 387 K/UL HEMOGLOBIN [id number] 00:00:00* Test Item Value Reference Range Interpretation Comme nts HEMOGLOBIN A1c (test code = 25031) 11.1 % LIPID [id number] 00:00:00* Test Item Value Reference Range Interpretation Comme nts CHOLESTEROL (test code = 2210) 185 MG/DL TRIGLYCERIDES (test code = 2232) 190 MG/DL HDL CHOLESTEROL (test code = 2220) 49 MG/DL CALC LDL CHOL (test code = 2237) 105 MG/DL RISK RATIO LDL/HDL (test cod e = 2238) 2.14 RATIO COMPREHENSIVE METABOLIC [id number] 00:00:00* Test Item Value Reference Range Interpretation Comme nts GLUCOSE (test code = 2217) 371 MG/DL BUN (test code = 2208) 11 MG/DL CREATININE (test code = 2214) 0.61 MG/DL eGFR AMER. (test cod e = 27177) 123 ML/MIN/1.73 eGFR NON- AMER. (test code = 64083) 106 ML/MIN/1.73 CALC BUN/CREAT (test code = [...] ALT (test code = 2219) 20 U/L [id number] 00:00:00* Test Item Value Reference Range Interpretation Comme nts TSH, THIRD GENERATION (test code = 2821) 1.180 UIU/ML H. PYLORI (BREATH)2021-01-20 00:00:00* Test Item Value Reference Range Interpretation Comme nts H. PYLORI (BREATH) (test cod e = 44959) POSITIVE CBC W/AUTO [id number] 00:00:00* Test Item Value Reference Range Interpretation [...] (test code = 1015) 387 K/UL HEMOGLOBIN [id number] 00:00:00* Test Item Value Reference Range Interpretation Comme nts HEMOGLOBIN A1c (test code = 75563) 11.1 % LIPID [id number] 00:00:00* Test Item Value Reference Range Interpretation Comme nts CHOLESTEROL (test code = 2210) 185 MG/DL TRIGLYCERIDES (test code = 2232) 190 MG/DL HDL CHOLESTEROL (test code = 2220) 49 MG/DL CALC LDL CHOL (test code = 2237) 105 MG/DL RISK RATIO LDL/HDL (test cod e = 2238) 2.14 RATIO COMPREHENSIVE METABOLIC [id number] 00:00:00* Test Item Value Reference Range Interpretation Comme nts GLUCOSE (test code = 2217) 371 MG/DL BUN (test code = 2208) 11 MG/DL CREATININE (test code = 2214) 0.61 MG/DL eGFR AMER. (test cod e = 69597) 123 ML/MIN/1.73 eGFR NON- AMER. (test code = 50102) 106 ML/MIN/1.73 CALC BUN/CREAT (test code = [...] ALT (test code = 2219) 20 U/L [id number] 00:00:00* Test Item Value Reference Range Interpretation Comme nts TSH, THIRD GENERATION (test code = 2821) 1.180 UIU/ML H. PYLORI (BREATH)2021-01-20 00:00:00* Test Item Value Reference Range Interpretation Comme nts H. PYLORI (BREATH) (test cod e = 31037) POSITIVE H. PYLORI (BREATH)2021-01-20 00:00:00* Test Item Value Reference Range Interpretation Comme nts H. PYLORI (BREATH) (test cod e = 70323) POSITIVE Óscar ZavalaCBC W/AUTO [id number] 00:00:00* Test Item Value Reference Range Interpretation [...] code = 1015) 387 K/UL Óscar ZavalaHEMOGLOBIN [id number] 00:00:00* Test Item Value Reference Range Interpretation Comme nts HEMOGLOBIN A1c (test code = 98792) 11.1 % Óscar ZavalaLIPID [id number] 00:00:00* Test Item Value Reference Range Interpretation Comme nts CHOLESTEROL (test code = 2210) 185 MG/DL TRIGLYCERIDES (test code = 2232) 190 MG/DL HDL CHOLESTEROL (test code = 2220) 49 MG/DL CALC LDL CHOL (test code = 2237) 105 MG/DL RISK RATIO LDL/HDL (test cod e = 2238) 2.14 RATIO Óscar ZavalaCOMPREHENSIVE METABOLIC [id number] 00:00:00* Test Item Value Reference Range Interpretation Comme nts GLUCOSE (test code = 2217) 371 MG/DL BUN (test code = 2208) 11 MG/DL CREATININE (test code = 2214) 0.61 MG/DL eGFR AMER. (test cod e = 74084) 123 ML/MIN/1.73 eGFR NON- AMER. (test code = 75905) 106 ML/MIN/1.73 CALC BUN/CREAT (test code = [...] (test code = 2219) 20 U/L Óscar [id number] 00:00:00* Test Item Value Reference Range Interpretation Comme nts TSH, THIRD GENERATION (test code = 2821) 1.180 UIU/ML Óscar Rose LucasCOVID-19 (ID NOW RAPID TESTING)2020-12-17 18:20:32* Test Item Value Reference Range Interpretation Comme nts SARS-CoV-2 Rapid ID NOW (test code = 05781-2) Not Detected Not Detected MATTHEW (test code = MATTHEW) ID NOW COVID-19 As say is an isothermal nucleic acid amplification test intended for the qualitative detection of nucleic acid from SARS-CoV-2 viral RNA in nasopharyngeal (DIRECTOR OF BUSINESS CONTINUITY) specimens. It is used under Emergency Use [...] clinically indicated. Lab Interpretation (test code = 85030-8) [facility]ysis[facility] 18:20:17* Test Item Value Reference Range Interpretation Comme nts APPEARANCE (test code = 1689757706) Clear Clear COLOR (test code = 3527734211) Yellow Yellow PH (test code = 7181408509) 4.8-8.0 SP GRAVITY (test code = 7697300809) 1.003-1.030 H GLU U QUAL (test code = 8147060284) 500 mg/dL Normal A BLOOD (test code = 3763236013) Negative Negative KETONES (test code = 3930175909) 5 mg/dL Negative A PROTEIN (test code = 2887-8) 30 mg/dL Negative A UROBILIN (test code = 2120777664) Normal Normal BILIRUBIN (test code = 3692911270) Negative Negative NITRITE (test code = 6133446818) Negative Negative LEUK CHASITY (test code = 5202166203) 25/uL Negative A RBC/HPF (test code = 9444430352) See_Comment H [Automated [employer]] The system which generated this result transmitted reference range: 0 - 3 HPF. The reference range was not used to interpret this result as normal/abnormal. WBC/HPF (test code = 2995310092) See_Comment [Automated [employer]] The system which generated this result transmitted reference range: 0 - 5 HPF. The reference range was not used to interpret this result as normal/abnormal. BACTERIA (test code = 5507223302) Few Negative A SQ EPITH (test code = 7790542709) HPF Lab Interpretation (test code = 37633-8) Abnormal [facility] (ALB, T.PRO, BILI T, BU/BC, ALT, AST, ALK PHOS)2020-12-17 18:07:11* Test Item Value Reference Range Interpretation Comme nts TOTAL BILI (test code = 9929810697) 0.6 mg/dL 0.1-1.1 BILI UNCON (test code = 8606689868) 0.5 mg/dL 0.1-1.1 BILI CONJ (test code = 0707018071) 0.0 mg/dL 0.0-0.3 T PROTEIN (test code = 8710945218) 8.2 g/dL 6.3-8.2 ALBUMIN (test code = 1283382259) 4.4 g/dL 3.5-5.0 ALK PHOS (test code = 6766901953) 134 U/L 34-122 H ALTv (test code = 1742-6) 29 U/L 5-35 AST(SGOT) (test code = 0943707418) 35 U/L 13-40 Lab Interpretation (test cod e = 79393-5) Abnormal [facility] Metabolic Panel (NA, K, CL, CO2, GLUCOSE, BUN, CREATININE, CA)2020-12-17 18:06:51* Test Item Value Reference Range Interpretation Comme nts NA (test code = 8950607800) 135 mmol/L 135-145 K (test code = 7329758699) 4.4 mmol/L 3.5-5.0 CL (test code = 9325038545) 96 mmol/L 98-108 L CO2 TOTAL (test code = 3304387290) 31 mmol/L 23-31 AGAP (test code = 0203689652) 2-16 BUN (test code = 5831164738) 13 mg/dL 7-23 GLUCOSE (test code = 8756573286) 370 mg/dL 70-110 H CREATININE (test code = 9070420460) 0.50 mg/dL 0.50-1.04 CALCIUM (test code = 2799642438) 9.2 mg/dL 8.6-10.6 eGFR Calculation (Non-) (test code = 9673177884) mL/min/1.73m2 eGFR Calculation () (test code = 9059538203) mL/min/1.73m2 MATTHEW (test code = MATTHEW) Association [...] imaging tests). Lab Interpretation (test code = 90038-2) Abnormal [facility] CenterLipase [id number] 18:06:51* Test Item Value Reference Range Interpretation Comme [facility] LIPASE (test code = 3957912407) 169 U/L 0-220 Lab Interpretation (test cod e = 60194-4) Normal [facility] CenteraPTT2021-03-13 18:05:30* Test Item Value Reference Range Interpretation Comme [facility] APTT Patient (test code = 3173-2) See_Comment [Automated message] The system which generated this result transmitted reference range: 23 - 38 Seconds. The reference range was not used to interpret this result as normal/abnormal. MATTHEW (test code = MATTHEW) The [facility] [place] patient population mean normal value for aPTT is 30 seconds. Lab Interpretation (test code = 01819-2) Normal [facility] CenterProthrombin Time (PT) / [id number] 18:03:29 * Test Item Value Reference Range Interpretation Comme [facility] PROTIME PATIENT (test code = 5964-2) See_Comment [Automated [employer]] The system which generated this result transmitted reference range: 12.0 - 14.7 Seconds. The reference range was not used to interpret this result as normal/abnormal. INR (test code = 6301-6) Normal INR <1.1; Warfarin Therapeutic range 2.0 to 3.0 or 2.5 to 3.5, depending upon the indications. Lab Interpretation (test code = 26561-7) Normal [facility] with [id number] 17:55:29* Test Item Value Reference Range Interpretation Comme nts WBC (test code = 6690-2) See_Comment [Automated messa ge] The system which generated this result transmitted reference range: 4.30 - 11.10 10*3/?L. The reference range was not used to interpret this result as normal/abnormal. RBC (test code = 789-8) See_Comment [Automated [employer]] The system which generated this result [...] 32.8 g/dL 31.6-35.1 RDW-SD (test code = 12792-9) 39.1 fL 39.0-49.9 RDW-CV (test code = 788-0) 12.3 % 12.0-15.5 PLT (test code = 777-3) See_Comment H [Automated messa ge] The system which generated this result transmitted reference range: 166 - 358 10*3/?L. The reference range was not used to interpret this result as normal/abnormal. MPV (test code = 23232-7) 10.3 fL 9.5-12.9 NRBC/100 WBC (test code = 5700557953) See_Comment [Automated [employer]] The system which generated this result transmitted reference range: 0.0 - 10.0 /100 WBCs. The reference range was not used to interpret this result as normal/abnormal. NRBC x10^3 (test code = 7879494650) <0.01 See_Comment [Automated messa ge] The system which generated this result transmitted reference range: 10*3/?L. The reference range was not used to interpret this result as normal/abnormal. GRAN MAT (NEUT) % (test code = 770-8) 72.0 % IMM GRAN % (test code = 0401684672) 0.40 % LYMPH % (test code = 736-9) 18.4 % MONO % (test code = 5905-5) 6.4 % EOS % (test code = 713-8) 2.2 % BASO % (test code = 706-2) 0.6 % GRAN MAT x10^3(ANC) (test code = 2961557319) 7.61 10*3/uL 1.88-7.09 H IMM GRAN x10^3 (test code = 7093960245) 0.04 10*3/uL 0.00-0.06 LYMPH x10^3 (test code = 731-0) 1.94 10*3/uL 1.32-3.29 MONO x10^3 (test code = 742-7) 0.68 10*3/uL 0.33-0.92 EOS x10^3 (test code = 711-2) 0.23 10*3/uL 0.03-0.39 BASO x10^3 (test code = 704-7) 0.06 10*3/uL 0.01-0.07 Lab Interpretation (test code = 32746-1) [facility] [id number] 14:56:41.No acute cardiopulmonary abnormality Preliminary Report Dictated [...] this study and agree with the abovereport. [id number] 14:14:00* Test Item Value Reference Range Interpretation Comme nts POCT PREG (test code = 1605) negative On board controls acceptable with C Line (test code = 3574) present Lab Interpretation (test cod e = 28258-7) [id number] 13:53:00* Test Item Value Reference Range Interpretation Comments D-DIMER (test code = 8288176563) See_Comment H [Automated message] The system which [...] a diagnosis. Lab Interpretation (test code = 94881-2) [facility]normal [facility] CenterP[facility] Test, [id number] 13:40:00* Test Item Value Reference Range Interpretation Comme nts PREG SERUM (test code = 0223530150) Negative MATTHEW (test code = MATTHEW) Less than 10 IU/L. ?If low titer or ectopic is suspected, resubmit specimen in 48-72 hours. [facility] CenterTroponin [id number] 13:36:00* Test Item Value Reference Range Interpretation Comme nts TROPONIN I (test code = 3082364877) <0.012 See_Comment [Automated message] The system which [...] biotin. ? Lab Interpretation (test code = 97868-8) Normal [facility] CenteraPTT2021-01-[facility] 13:35:00* Test Item Value Reference [...] 30 seconds. Lab Interpretation (test code = 46057-5) Normal [facility] CenterProthrombin Time (PT) / [id number] 13:33:00 * Test Item Value Reference Range Interpretation Comme nts PROTIME PATIENT (test code = 5964-2) See_Comment [Automated [employer]] The system which generated this result transmitted reference range: 12.0 - 14.7 Seconds. The reference range was not used to interpret this result as normal/abnormal. INR (test code = 6301-6) Normal INR <1.1; Warfarin Therapeutic range 2.0 to 3.0 or 2.5 to 3.5, depending upon the indications. Lab Interpretation (test code = 29469-2) Normal [facility] CenterBasi Metabolic Panel (NA, K, CL, CO2, GLUCOSE, BUN, CREATININE, CA)2020-10-30 13:25:00* Test Item Value Reference Range Interpretation Comme [facility] NA (test code = 5255007610) 137 mmol/L 135-145 K (test code = 7267111176) 4.4 mmol/L 3.5-5 CL (test code = 4457070365) 101 mmol/L 98-108 CO2 TOTAL (test code = 8616147998) 28 mmol/L 23-31 AGAP (test code = 3485221852) 2-16 BUN (test code = 0842896363) 12 mg/dL 7-23 GLUCOSE (test code = 8554772032) 195 mg/dL 70-110 H CREATININE (test code = 2475868091) 0.42 mg/dL 0.5-1.04 L CALCIUM (test code = 5061006875) 9.2 mg/dL 8.6-10.6 eGFR Calculation (Non-) (test code = 6034164699) mL/min/1.73m2 eGFR Calculation () (test code = 7809023355) mL/min/1.73m2 MATTHEW (test code = MATTHEW) Association [...] imaging tests). Lab Interpretation (test code = 56327-7) Abnormal [facility] CenterHepatic Function Panel (ALB, T.PRO, BILI T, BU/BC, ALT, AST, ALK PHOS)2020-10-30 13:25:00* Test Item Value Reference Range Interpretation Comme nts TOTAL BILI (test code = 6452016576) 1.1 mg/dL 0.1-1.1 BILI UNCON (test code = 4431231121) 0.8 mg/dL 0.1-1.1 BILI CONJ (test code = 0784393662) 0.0 mg/dL 0-0.3 T PROTEIN (test code = 8884897078) 8.2 g/dL 6.3-8.2 ALBUMIN (test code = 3863993420) 4.2 g/dL 3.5-5 ALK PHOS (test code = 0359762383) 109 U/L 34-122 ALTv (test code = 1742-6) 23 U/L 5-35 AST(SGOT) (test code = 7921308028) 35 U/L 13-40 Lab Interpretation (test cod e = 11485-0) Normal [facility] CenterADC,CLC OR LCC ONLY - INFLUENZA A & B DIRECT [id number] 13:21:00* Test Item Value Reference Range Interpretation Comme nts Influenza A (test code = 96394-3) Negative Negative Influenza B (test code = 38736-8) Negative Negative Lab Interpretation (test cod e = 79204-3) Normal [facility] STREP SCREEN FOR GROUP [id number] 13:21:00* Test Item Value Reference Range Interpretation Comme nts Streptococcus pyogenes (grou p A) antigen (test code = 31218-5) Negative Negative Lab Interpretation (test cod e = 16697-8) Normal [facility] CenterCOVID-19 (ID NOW RAPID TESTING)2020-10-30 13:18:00* Test Item Value Reference Range Interpretation Comme nts SARS-CoV-2 Rapid ID NOW (test code = 15216-6) Not Detected Not Detected MATTHEW (test code = MATTHEW) ID NOW COVID-19 As say is an isothermal nucleic acid amplification test intended for the qualitative detection of nucleic acid from SARS-CoV-2 viral RNA in nasopharyngeal (DIRECTOR OF BUSINESS CONTINUITY) specimens. It is used under Emergency Use [...] clinically indicated. Lab Interpretation (test code = 00607-7) Normal [facility] with [id number] 13:05:00* Test Item Value Reference Range Interpretation Comme nts WBC (test code = 6690-2) See_Comment H [Automated [employer]] The system which generated this result transmitted reference range: 4.30 - 11.10 10*3/?L. The reference range was not used to interpret this result as normal/abnormal. RBC (test code = 789-8) See_Comment [Automated [employer]] The system which generated this result [...] 32.4 g/dL 31.6-35.1 RDW-SD (test code = 47285-4) 41.0 fL 39-49.9 RDW-CV (test code = 788-0) 12.4 % 12-15.5 PLT (test code = 777-3) See_Comment H [Automated messa ge] The system which generated this result transmitted reference range: 166 - 358 10*3/?L. The reference range was not used to interpret this result as normal/abnormal. MPV (test code = 92018-7) 10.5 fL 9.5-12.9 NRBC/100 WBC (test code = 4546237266) See_Comment [Automated me ssage] The system which generated this result transmitted reference range: 0.0 - 10.0 /100 WBCs. The reference range was not used to interpret this result as normal/abnormal. NRBC x10^3 (test code = 2978859445) <0.01 See_Comment [Automated messa ge] The system which generated this result transmitted reference range: 10*3/?L. The reference range was not used to interpret this result as normal/abnormal. GRAN MAT (NEUT) % (test code = 770-8) 66.0 % IMM GRAN % (test code = 6538383690) 0.40 % LYMPH % (test code = 736-9) 19.5 % MONO % (test code = 5905-5) 9.3 % EOS % (test code = 713-8) 4.2 % BASO % (test code = 706-2) 0.6 % GRAN MAT x10^3(ANC) (test code = 5151514980) 7.63 10*3/uL 1.88-7.09 H IMM GRAN x10^3 (test code = 0364734665) 0.05 10*3/uL 0-0.06 LYMPH x10^3 (test code = 731-0) 2.26 10*3/uL 1.32-3.29 MONO x10^3 (test code = 742-7) 1.08 10*3/uL 0.33-0.92 H EOS x10^3 (test code = 711-2) 0.49 10*3/uL 0.03-0.39 H BASO x10^3 (test code = 704-7) 0.07 10*3/uL 0.01-0.07 Lab Interpretation (test code = 47979-5) Abnormal [facility] CenterMAGNESIUM [ADDED]2020-10-12 00:00:00* Test Item Value Reference Range Interpretation Comme nts MAGNESIUM (test code = 2226) 2.0 MG/DL COMPREHENSIVE METABOLIC PANEL [ADDED]2020-10-12 00:00:00* Test Item Value Reference Range Interpretation Comme nts GLUCOSE (test code = 2217) 423 MG/DL BUN (test code = 2208) 11 MG/DL CREATININE (test code = 2214) 0.73 MG/DL eGFR AMER. (test cod e = 64963) 112 ML/MIN/1.73 eGFR NON- AMER. (test code = 24838) 97 ML/MIN/1.73 CALC BUN/CREAT (test code = [...] MG/DL eGFR AMER. (test cod e = 14183) 112 ML/MIN/1.73 eGFR NON- AMER. (test code = 59278) 97 ML/MIN/1.73 CALC BUN/CREAT (test code = [...] MG/DL eGFR AMER. (test cod e = 24396) 112 ML/MIN/1.73 eGFR NON- AMER. (test code = 53513) 97 ML/MIN/1.73 CALC BUN/CREAT (test code = [...] MG/DL eGFR AMER. (test cod e = 49224) 112 ML/MIN/1.73 eGFR NON- AMER. (test code = 29468) 97 ML/MIN/1.73 CALC BUN/CREAT (test code = [...] MG/DL eGFR AMER. (test cod e = 58436) 112 ML/MIN/1.73 eGFR NON- AMER. (test code = 22366) 97 ML/MIN/1.73 CALC BUN/CREAT (test code = [...] code = 2219) 22 U/L Óscar Rose AustinMAGNESIUM [ADDED]2020-10-12 00:00:00* Test Item Value Reference Range Interpretation Comme nts MAGNESIUM (test code = 2226) 2.0 MG/DL Óscar ZavalaSARS-CoV-2 (COVID-19) by RT-PCR (HIGH RISK)2020-10-06 00:00:00* Test Item Value Reference Range Interpretation Comme nts SARS-CoV-2 INTERPRETATION (t est code = 28569) NEGATIVE SOURCE (test code = 60057) NOT SPECIFIED SARS-CoV-2 (COVID-19) by RT-PCR (HIGH RISK)2020-10-06 00:00:00* Test Item Value Reference Range Interpretation Comme nts SARS-CoV-2 INTERPRETATION (t est code = 46260) NEGATIVE SOURCE (test code = 07613) NOT SPECIFIED SARS-CoV-2 (COVID-19) by RT-PCR (HIGH RISK)2020-10-06 00:00:00* Test Item Value Reference Range Interpretation Comme nts SARS-CoV-2 INTERPRETATION (t est code = 70979) NEGATIVE SOURCE (test code = 44539) NOT SPECIFIED SARS-CoV-2 (COVID-19) by RT-PCR (HIGH RISK)2020-10-06 00:00:00* Test Item Value Reference Range Interpretation Comme nts SARS-CoV-2 INTERPRETATION (t est code = 27437) NEGATIVE SOURCE (test code = 28361) NOT SPECIFIED SARS-CoV-2 (COVID-19) by RT-PCR (HIGH RISK)2020-10-06 00:00:00* Test Item Value Reference Range Interpretation Comme nts SARS-CoV-2 INTERPRETATION (t est code = 34578) NEGATIVE SOURCE (test code = 94557) NOT SPECIFIED Óscar ZavalaXR CHEST 1 [id number] 00:19:17Grossly unchanged streaky opacities associated with known [...] reviewed this study and agree with the abovereport.[facility] CenterURINALYSIS 2020-09-26 23:37:00* Test Item Value Reference Range Interpretation Comme nts APPEARANCE (test code = 0294038048) Clear Clear COLOR (test code = 8465597208) Yellow Yellow PH (test code = 0712749337) 4.8-8.0 SP GRAVITY (test code = 9304262184) 1.003-1.030 GLU U QUAL (test code = 2920581607) Normal Normal BLOOD (test code = 4153842355) Negative Negative KETONES (test code = 5643814523) Negative Negative PROTEIN (test code = 2887-8) Negative Negative UROBILIN (test code = 8630822216) Normal Normal BILIRUBIN (test code = 5535458161) Negative Negative NITRITE (test code = 2866149118) Negative Negative LEUK CHASITY (test code = 9486677243) 500/uL Negative A RBC/HPF (test code = 7036016686) See_Comment [Automated messa ge] The system which generated this result transmitted reference range: 0 - 3 HPF. The reference range was not used to interpret this result as normal/abnormal. WBC/HPF (test code = 6891447337) See_Comment H [Automated messa ge] The system which generated this result transmitted reference range: 0 - 5 HPF. The reference range was not used to interpret this result as normal/abnormal. BACTERIA (test code = 7835618800) Few Negative A MUCOUS (test code = 8229961704) Slight Negative LPF A SQ EPITH (test code = 0427249170) HPF TRANS EPI (test code = 3882648338) <1 See_Comment [Automated messa ge] The system which generated this result transmitted reference range: <=1 HPF. The reference range was not used to interpret this result as normal/abnormal. Lab Interpretation (test code = 82984-4) Abnormal [facility] CenterTROPONIN [id number] 22:39:00* Test Item Value Reference Range Interpretation Comme nts TROPONIN I (test code = 4791720495) <0.012 See_Comment [Automated message] The system which [...] biotin. ? Lab Interpretation (test code = 83086-9) Normal [facility] CenterN-TERMINAL [id number] 22:36:00* Test Item Value Reference Range Interpretation Comme nts NT-proBNP (test code = 0608802082) 54 pg/mL See_Comment [Automated message] The system which generated this result transmitted reference range: <=125. The reference range was not used to interpret this result as normal/abnormal. MATTHEW (test code = MATTHEW) Biotin has been reported to cause a negative bias, interpret results relative to patient's use of biotin. Lab Interpretation (test code = 18924-7) Normal [facility] CenterCOMP. METABOLIC PANEL (54595)2020-09-26 22:28:00* Test Item Value Reference Range Interpretation Comme nts NA (test code = 8923597708) 137 mmol/L 135-145 K (test code = 5447156107) 3.2 mmol/L 3.5-5 L CL (test code = 4554658926) 97 mmol/L 98-108 L CO2 TOTAL (test code = 4327228230) 30 mmol/L 23-31 AGAP (test code = 7137390711) 2-16 BUN (test code = 9995208160) 9 mg/dL 7-23 GLUCOSE (test code = 1414636067) 191 mg/dL 70-110 H CREATININE (test code = 2509857779) 0.52 mg/dL 0.5-1.04 TOTAL BILI (test code = 8190300021) 0.8 mg/dL 0.1-1.1 CALCIUM (test code = 4872488487) 8.9 mg/dL 8.6-10.6 T PROTEIN (test code = 4212859100) 7.4 g/dL 6.3-8.2 ALBUMIN (test code = 4150883220) 4.1 g/dL 3.5-5 ALK PHOS (test code = 6476349125) 98 U/L 34-122 ALTv (test code = 1742-6) 19 U/L 5-35 AST(SGOT) (test code = 3802199676) 21 U/L 13-40 eGFR Calculation (Non-) (test code = 3290344052) mL/min/1.73m2 eGFR Calculation () (test code = 2361025649) mL/min/1.73m2 MATTHEW (test code = MATTHEW) Association [...] imaging tests). Lab Interpretation (test code = 25921-3) Abnormal [facility] CenterLIPASE2020-12-21 22:27:00* Test Item Value Reference Range Interpretation Comme nts LIPASE (test code = 6813988102) 90 U/L 0-220 Lab Interpretation (test cod e = 01970-7) Normal [facility] CenterCBC WITH [id number] 22:26:00* Test Item Value Reference Range Interpretation Comme nts WBC (test code = 6690-2) See_Comment [Automated [employer]] The system which generated this result transmitted reference range: 4.30 - 11.10 10*3/?L. The reference range was not used to interpret this result as normal/abnormal. RBC (test code = 789-8) See_Comment [Automated [employer]] The system which generated this result [...] 32.6 g/dL 31.6-35.1 RDW-SD (test code = 39150-6) 40.6 fL 39-49.9 RDW-CV (test code = 788-0) 12.4 % 12-15.5 PLT (test code = 777-3) See_Comment H [Automated [employer]] The system which generated this result transmitted reference range: 166 - 358 10*3/?L. The reference range was not used to interpret this result as normal/abnormal. MPV (test code = 71480-7) 10.3 fL 9.5-12.9 NRBC/100 WBC (test code = 2255881437) See_Comment [Automated me ssage] The system which generated this result transmitted reference range: 0.0 - 10.0 /100 WBCs. The reference range was not used to interpret this result as normal/abnormal. NRBC x10^3 (test code = 9469167826) <0.01 See_Comment [Automated messa ge] The system which generated this result transmitted reference range: 10*3/?L. The reference range was not used to interpret this result as normal/abnormal. GRAN MAT (NEUT) % (test code = 770-8) 65.8 % IMM GRAN % (test code = 9671780230) 0.50 % LYMPH % (test code = 736-9) 22.4 % MONO % (test code = 5905-5) 8.9 % EOS % (test code = 713-8) 2.1 % BASO % (test code = 706-2) 0.3 % GRAN MAT x10^3(ANC) (test code = 7874416535) 7.21 10*3/uL 1.88-7.09 H IMM GRAN x10^3 (test code = 9912532818) 0.06 10*3/uL 0-0.06 LYMPH x10^3 (test code = 731-0) 2.45 10*3/uL 1.32-3.29 MONO x10^3 (test code = 742-7) 0.98 10*3/uL 0.33-0.92 H EOS x10^3 (test code = 711-2) 0.23 10*3/uL 0.03-0.39 BASO x10^3 (test code = 704-7) 0.03 10*3/uL 0.01-0.07 Lab Interpretation (test code = 08813-9) Abnormal [facility] CenterSARS[facility]CoV-[facility] (COVID-19) by RT-PCR (HIGH RISK) 2020-09-25 00:00:00* Test Item Value Reference Range Interpretation Comme nts SARS-CoV-2 INTERPRETATION (t est code = 30605) POSITIVE SOURCE (test code = 83671) NOT SPECIFIED SARS-CoV-2 (COVID-19) by RT-PCR (HIGH RISK)2020-09-25 00:00:00* Test Item Value Reference Range Interpretation Comme nts SARS-CoV-2 INTERPRETATION (t est code = 47625) POSITIVE SOURCE (test code = 94324) NOT SPECIFIED SARS-CoV-2 (COVID-19) by RT-PCR (HIGH RISK)2020-09-25 00:00:00* Test Item Value Reference Range Interpretation Comme nts SARS-CoV-2 INTERPRETATION (t est code = 10844) POSITIVE SOURCE (test code = 22291) NOT SPECIFIED SARS-CoV-2 (COVID-19) by RT-PCR (HIGH RISK)2020-09-25 00:00:00* Test Item Value Reference Range Interpretation Comme nts SARS-CoV-2 INTERPRETATION (t est code = 84430) POSITIVE SOURCE (test code = 75354) NOT SPECIFIED SARS-CoV-2 (COVID-19) by RT-PCR (HIGH RISK)2020-09-25 00:00:00* Test Item Value Reference Range Interpretation Comme nts SARS-CoV-2 INTERPRETATION (t est code = 96067) POSITIVE SOURCE (test code = 77133) NOT SPECIFIED Óscar Rose AustinCO CHEST PULMONARY [id number] 02:11:181. ?No acute pulmonary embolism. PROCEDURE: CT [...] abdomen: Unremarkable. IMPRESSION1. No acute pulmonary embolism. [facility] [id number] 01:20:00* Test Item Value Reference Range Interpretation Comments D-DIMER (test code = 4193241780) See_Comment H [Automated message] The system which [...] a diagnosis. Lab Interpretation (test code = 82926-0) Abnormal [facility] CenterXR CHEST 1 [id number] 23:44:22Slightly suboptimal lung volumes with perihilar streaky [...] reviewed this study and agree withthe above report.[facility] CenterCOVID-19 (ID NOW RAPID TESTING)2020-09-01 23:26:00* Test Item Value Reference Range Interpretation Comme nts SARS-CoV-2 Rapid ID NOW (test code = 37331-1) Positive Not Detected A MATTHEW (test code = MATTHEW) ID NOW COVID-19 As say is an isothermal nucleic acid amplification test intended for the qualitative detection of nucleic acid from SARS-CoV-2 viral RNA in nasopharyngeal (DIRECTOR OF BUSINESS CONTINUITY) specimens. It is used under Emergency Use [...] clinically indicated. Lab Interpretation (test code = 00581-5) Abnormal [facility] CenterADC,CLC OR LCC ONLY - INFLUENZA A & B DIRECT [id number] 23:26:00* Test Item Value Reference Range Interpretation Comme nts Influenza A (test code = 99188-0) Negative Negative Influenza B (test code = 42750-3) Negative Negative Lab Interpretation (test cod e = 00386-4) Normal [facility] CenterURINALYSIS2020-11-26 23:22:00* Test Item Value Reference Range Interpretation Comme nts APPEARANCE (test code = 5780529023) Clear Clear COLOR (test code = 5750083002) Yellow Yellow PH (test code = 0219281021) 4.8-8.0 SP GRAVITY (test code = 5079263691) 1.003-1.030 GLU U QUAL (test code = 7943936567) 500 mg/dL Normal A BLOOD (test code = 5027428840) Negative Negative KETONES (test code = 7392385895) Negative Negative PROTEIN (test code = 2887-8) 30 mg/dL Negative A UROBILIN (test code = 0804773389) Normal Normal BILIRUBIN (test code = 8355928923) Negative Negative NITRITE (test code = 8862813575) Negative Negative LEUK CHASITY (test code = 7834040746) 250/uL Negative A RBC/HPF (test code = 0144595549) See_Comment H [Automated messa ge] The system which generated this result transmitted reference range: 0 - 3 HPF. The reference range was not used to interpret this result as normal/abnormal. WBC/HPF (test code = 1707056667) See_Comment [Automated messa ge] The system which generated this result transmitted reference range: 0 - 5 HPF. The reference range was not used to interpret this result as normal/abnormal. BACTERIA (test code = 2041549106) Few Negative A MUCOUS (test code = 5705760874) Slight Negative LPF A SQ EPITH (test code = 7033430521) HPF Lab Interpretation (test code = 18627-4) Abnormal [facility] CenterN-TERMINAL [id number] 23:20:00* Test Item Value Reference Range Interpretation Comme nts NT-proBNP (test code = 8890321555) 38 pg/mL See_Comment [Automated message] The system which generated this result transmitted reference range: <=125. The reference range was not used to interpret this result as normal/abnormal. MATTHEW (test code = MATTHEW) Biotin has been reported to cause a negative bias, interpret results relative to patient's use of biotin. Lab Interpretation (test code = 78878-3) Normal [facility] CenterCOMP. METABOLIC PANEL (68311)2020-09-01 23:12:00* Test Item Value Reference Range Interpretation Comme nts NA (test code = 2536228799) 137 mmol/L 135-145 K (test code = 0869905953) 3.9 mmol/L 3.5-5 CL (test code = 9329833897) 100 mmol/L 98-108 CO2 TOTAL (test code = 5641277374) 29 mmol/L 23-31 AGAP (test code = 5480673515) 2-16 BUN (test code = 7217400405) 17 mg/dL 7-23 GLUCOSE (test code = 4136787847) 174 mg/dL 70-110 H CREATININE (test code = 2438255820) 0.56 mg/dL 0.5-1.04 TOTAL BILI (test code = 1919814618) 0.6 mg/dL 0.1-1.1 CALCIUM (test code = 7543901004) 9.2 mg/dL 8.6-10.6 T PROTEIN (test code = 8619016807) 7.9 g/dL 6.3-8.2 ALBUMIN (test code = 7238487534) 4.3 g/dL 3.5-5 ALK PHOS (test code = 2360356143) 101 U/L 34-122 ALTv (test code = 1742-6) 32 U/L 5-35 AST(SGOT) (test code = 0072232677) 28 U/L 13-40 eGFR Calculation (Non-) (test code = 6280268989) mL/min/1.73m2 eGFR Calculation () (test code = 1195511355) mL/min/1.73m2 MATTHEW (test code = MATTHEW) Association [...] imaging tests). Lab Interpretation (test code = 19168-3) Abnormal [facility] WITH [id number] 23:01:00* Test Item Value Reference Range Interpretation [...] 32.9 g/dL 31.6-35.1 RDW-SD (test code = 80243-0) 41.6 fL 39-49.9 RDW-CV (test code = 788-0) 12.6 % 12-15.5 PLT (test code = 777-3) See_Comment [Automated messa ge] The system which generated this result transmitted reference range: 166 - 358 10*3/?L. The reference range was not used to interpret this result as normal/abnormal. MPV (test code = 43138-8) 10.0 fL 9.5-12.9 NRBC/100 WBC (test code = 5027572642) See_Comment [Automated [employer] ssage] The system which generated this result transmitted reference range: 0.0 - 10.0 /100 WBCs. The reference range was not used to interpret this result as normal/abnormal. NRBC x10^3 (test code = 6903505713) <0.01 See_Comment [Automated messa ge] The system which generated this result transmitted reference range: 10*3/?L. The reference range was not used to interpret this result as normal/abnormal. GRAN MAT (NEUT) % (test code = 770-8) 77.1 % IMM GRAN % (test code = 6793979072) 0.40 % LYMPH % (test code = 736-9) 10.9 % MONO % (test code = 5905-5) 10.4 % EOS % (test code = 713-8) 0.7 % BASO % (test code = 706-2) 0.5 % GRAN MAT x10^3(ANC) (test code = 9984560569) 6.59 10*3/uL 1.88-7.09 IMM GRAN x10^3 (test code = 1414705770) 0.03 10*3/uL 0-0.06 LYMPH x10^3 (test code = 731-0) 0.93 10*3/uL 1.32-3.29 L MONO x10^3 (test code = 742-7) 0.89 10*3/uL 0.33-0.92 EOS x10^3 (test code = 711-2) 0.06 10*3/uL 0.03-0.39 BASO x10^3 (test code = 704-7) 0.04 10*3/uL 0.01-0.07 Lab Interpretation (test code = 23105-4) Abnormal [facility] CenterLanvic Acid Whole [id number] 22:55:00* Test Item Value Reference Range Interpretation Comme [facility] LACTIC ACID (test code = 2896143230) 1.33 mmol/L [facility] CenterPOCT [id number] 22:52:00* Test Item Value Reference Range Interpretation Comme nts POCT PREG (test code = 1605) negative On board controls acceptable with C Line (test code = 3574) present POCT PREG LOT # (test code = 3575) [id number] POCT PREG TEST DATE ( test code = 3576) 02/03/2022 Lab Interpretation (test cod e = 50414-2) Normal [facility] CenterHEMOGLOBIN [id number] 00:00:00* Test Item Value Reference Range Interpretation Comme nts HEMOGLOBIN A1c (test code = 17673) 7.0 % C-REACTIVE [id number] 00:00:00* Test Item Value Reference Range Interpretation Comme nts C-REACTIVE PROTEIN (test cod e = 3513) 0.7 MG/DL SEDIMENTATION [id number] 00:00:00* Test Item Value Reference Range Interpretation Comme nts SEDIMENTATION RATE (test cod e = 1017) 22 MM/HOUR URIC [id number] 00:00:00* Test Item Value Reference Range Interpretation Comme nts URIC ACID (test code = 2233) 3.6 MG/DL SUKHI REFLEX AUTOIMMUNE AB [id number] 00:00:00* Test Item Value Reference Range Interpretation Comme nts ANTI-NUCLEAR ANTIBODIES (michael t code = 3506) NEGATIVE COMPREHENSIVE METABOLIC [id number] 00:00:00* Test Item Value Reference Range Interpretation Comme nts GLUCOSE (test code = 2217) 101 MG/DL BUN (test code = 2208) 10 MG/DL CREATININE (test code = 2214) 0.62 MG/DL eGFR AMER. (test cod e = 35281) 123 ML/MIN/1.73 eGFR NON- AMER. (test code = 69656) 106 ML/MIN/1.73 CALC BUN/CREAT (test code = [...] (test code = 2219) 196 U/L HEMOGLOBIN [id number] 00:00:00* Test Item Value Reference Range Interpretation Comme nts HEMOGLOBIN A1c (test code = 92230) 7.0 % C-REACTIVE [id number] 00:00:00* Test Item Value Reference Range Interpretation Comme nts C-REACTIVE PROTEIN (test cod e = 3513) 0.7 MG/DL SEDIMENTATION [id number] 00:00:00* Test Item Value Reference Range Interpretation Comme nts SEDIMENTATION RATE (test cod e = 1017) 22 MM/HOUR URIC [id number] 00:00:00* Test Item Value Reference Range Interpretation Comme nts URIC ACID (test code = 2233) 3.6 MG/DL SUKHI REFLEX AUTOIMMUNE AB [id number] 00:00:00* Test Item Value Reference Range Interpretation Comme nts ANTI-NUCLEAR ANTIBODIES (michael t code = 3506) NEGATIVE COMPREHENSIVE METABOLIC [id number] 00:00:00* Test Item Value Reference Range Interpretation Comme nts GLUCOSE (test code = 2217) 101 MG/DL BUN (test code = 2208) 10 MG/DL CREATININE (test code = 2214) 0.62 MG/DL eGFR AMER. (test cod e = 53274) 123 ML/MIN/1.73 eGFR NON- AMER. (test code = 09834) 106 ML/MIN/1.73 CALC BUN/CREAT (test code = [...] (test code = 2219) 196 U/L HEMOGLOBIN [id number] 00:00:00* Test Item Value Reference Range Interpretation Comme nts HEMOGLOBIN A1c (test code = 45680) 7.0 % C-REACTIVE [id number] 00:00:00* Test Item Value Reference Range Interpretation Comme nts C-REACTIVE PROTEIN (test cod e = 3513) 0.7 MG/DL SEDIMENTATION [id number] 00:00:00* Test Item Value Reference Range Interpretation Comme nts SEDIMENTATION RATE (test cod e = 1017) 22 MM/HOUR URIC [id number] 00:00:00* Test Item Value Reference Range Interpretation Comme nts URIC ACID (test code = 2233) 3.6 MG/DL SUKHI REFLEX AUTOIMMUNE AB [id number] 00:00:00* Test Item Value Reference Range Interpretation Comme nts ANTI-NUCLEAR ANTIBODIES (michael t code = 3506) NEGATIVE COMPREHENSIVE METABOLIC [id number] 00:00:00* Test Item Value Reference Range Interpretation Comme nts GLUCOSE (test code = 2217) 101 MG/DL BUN (test code = 2208) 10 MG/DL CREATININE (test code = 2214) 0.62 MG/DL eGFR AMER. (test cod e = 29803) 123 ML/MIN/1.73 eGFR NON- AMER. (test code = 44221) 106 ML/MIN/1.73 CALC BUN/CREAT (test code = [...] (test code = 2219) 196 U/L HEMOGLOBIN [id number] 00:00:00* Test Item Value Reference Range Interpretation Comme nts HEMOGLOBIN A1c (test code = 67759) 7.0 % C-REACTIVE [id number] 00:00:00* Test Item Value Reference Range Interpretation Comme nts C-REACTIVE PROTEIN (test cod e = 3513) 0.7 MG/DL SEDIMENTATION [id number] 00:00:00* Test Item Value Reference Range Interpretation Comme nts SEDIMENTATION RATE (test cod e = 1017) 22 MM/HOUR URIC [id number] 00:00:00* Test Item Value Reference Range Interpretation Comme nts URIC ACID (test code = 2233) 3.6 MG/DL SUKHI REFLEX AUTOIMMUNE AB [id number] 00:00:00* Test Item Value Reference Range Interpretation Comme nts ANTI-NUCLEAR ANTIBODIES (michael t code = 3506) NEGATIVE COMPREHENSIVE METABOLIC [id number] 00:00:00* Test Item Value Reference Range Interpretation Comme nts GLUCOSE (test code = 2217) 101 MG/DL BUN (test code = 2208) 10 MG/DL CREATININE (test code = 2214) 0.62 MG/DL eGFR AMER. (test cod e = 81329) 123 ML/MIN/1.73 eGFR NON- AMER. (test code = 06590) 106 ML/MIN/1.73 CALC BUN/CREAT (test code = [...] (test code = 2219) 196 U/L C-REACTIVE [id number] 00:00:00* Test Item Value Reference Range Interpretation Comme nts C-REACTIVE PROTEIN (test cod e = 3513) 0.7 MG/DL Óscar Rose AustinSEDIMENTATION [id number] 00:00:00* Test Item Value Reference Range Interpretation Comme nts SEDIMENTATION RATE (test cod e = 1017) 22 MM/HOUR Óscar F AustinURIC [id number] 00:00:00* Test Item Value Reference Range Interpretation Comme maci URIC ACID (test code = 2233) 3.6 MG/DL Óscar ZavalaANA REFLEX AUTOIMMUNE AB [id number] 00:00:00* Test Item Value Reference Range Interpretation Comme maci ANTI-NUCLEAR ANTIBODIES (michael t code = 3506) NEGATIVE Óscar ZavalaCOMPREHENSIVE METABOLIC [id number] 00:00:00* Test Item Value Reference Range Interpretation Comme nts GLUCOSE (test code = 2217) 101 MG/DL BUN (test code = 2208) 10 MG/DL CREATININE (test code = 2214) 0.62 MG/DL eGFR AMER. (test cod e = 52926) 123 ML/MIN/1.73 eGFR NON- AMER. (test code = 43896) 106 ML/MIN/1.73 CALC BUN/CREAT (test code = [...] code = 2219) 196 U/L Óscar ZavalaHEMOGLOBIN [id number] 00:00:00* Test Item Value Reference Range Interpretation Comme maci HEMOGLOBIN A1c (test code = 09692) 7.0 % Óscar ZavalaCT ABDOMEN PELVIS W [id number] 04:56:15No acute intra- abdominal or intrapelvic process. Preliminary Report Dictated by Resident: Gurjit Perkins MD., have reviewed this study and agree [...] reviewed this study and agree with the abovereport.[facility] [id number] 03:06:00* Test Item Value Reference Range Interpretation Comme nts APPEARANCE (test code = 9699266911) Hazy Clear A COLOR (test code = 3394117120) Loren Yellow A PH (test code = 5414974458) 4.8-8.0 SP GRAVITY (test code = 7653033409) 1.003-1.030 GLU U QUAL (test code = 1471567006) Normal Normal BLOOD (test code = 1296901829) Negative Negative KETONES (test code = 1341005134) Negative Negative PROTEIN (test code = 2887-8) 100 mg/dL Negative A UROBILIN (test code = 9368188294) 2.0 mg/dL Normal A BILIRUBIN (test code = 8462049877) Negative Negative NITRITE (test code = 5303758705) Negative Negative LEUK CHASITY (test code = 6041855456) Negative Negative RBC/HPF (test code = 5577522346) See_Comment [Automated [place] [employer]] The system which generated this result transmitted reference range: 0 - 3 HPF. The reference range was not used to interpret this result as normal/abnormal. WBC/HPF (test code = 0495779201) See_Comment [Automated [place]] The system which generated this result transmitted reference range: 0 - 5 HPF. The reference range was not used to interpret this result as normal/abnormal. BACTERIA (test code = 3878236973) Few Negative A MUCOUS (test code = 9792843430) Moderate Negative LPF A SQ EPITH (test code = 1089334319) HPF Lab Interpretation (test code = 56435-3) [facility] (73469[facility]2020-07-26 02:41:00* Test Item Value Reference Range Interpretation Comme nts NA (test code = 5914400307) 139 mmol/L 135-145 K (test code = 3244931363) 3.4 mmol/L 3.5-5 L CL (test code = 4817148559) 99 mmol/L 98-108 CO2 TOTAL (test code = 5808550705) 31 mmol/L 23-31 AGAP (test code = 5472221572) 2-16 BUN (test code = 2003878435) 18 mg/dL 7-23 GLUCOSE (test code = 7020703889) 151 mg/dL 70-110 H CREATININE (test code = 6429426278) 0.59 mg/dL 0.5-1.04 TOTAL BILI (test code = 9089963066) 0.8 mg/dL 0.1-1.1 CALCIUM (test code = 3012512823) 9.5 mg/dL 8.6-10.6 T PROTEIN (test code = 0958287854) 7.8 g/dL 6.3-8.2 ALBUMIN (test code = 0185505131) 4.2 g/dL 3.5-5 ALK PHOS (test code = 7854242008) 91 U/L 34-122 ALTv (test code = 1742-6) 24 U/L 5-35 AST(SGOT) (test code = 9281193543) 25 U/L 13-40 eGFR Calculation (Non-) (test code = 7515296799) mL/min/1.73m2 eGFR Calculation () (test code = 4824180459) mL/min/1.73m2 MATTHEW (test code = MATTHEW) Association [...] imaging tests). Lab Interpretation (test code = 87941-9) [facility] 02:40:00* Test Item Value Reference Range Interpretation Comme nts LIPASE (test code = 1356503022) 149 U/L 0-220 Lab Interpretation (test cod e = 96637-8) Normal [facility] [id number] 02:25:00* Test Item Value Reference Range Interpretation [...] 33.3 g/dL 31.6-35.1 RDW-SD (test code = 13865-1) 40.0 fL 39-49.9 RDW-CV (test code = 788-0) 12.4 % 12-15.5 PLT (test code = 777-3) See_Comment H [Automated message] The system which generated this result transmitted reference range: 166 - 358 10*3/?L. The reference range was not used to interpret this result as normal/abnormal. MPV (test code = 98785-0) 9.7 fL 9.5-12.9 NRBC/100 WBC (test code = 5847492710) See_Comment [Automated message] The system which generated this result transmitted reference range: 0.0 - 10.0 /100 WBCs. The reference range was not used to interpret this result as normal/abnormal. NRBC x10^3 (test code = 8967665784) <0.01 See_Comment [Automated message] The system which generated this result transmitted reference range: 10*3/?L. The reference range was not used to interpret this result as normal/abnormal. GRAN MAT (NEUT) % (test code = 770-8) 80.1 % IMM GRAN % (test code = 1535413718) 0.60 % LYMPH % (test code = 736-9) 10.7 % MONO % (test code = 5905-5) 6.3 % EOS % (test code = 713-8) 1.9 % BASO % (test code = 706-2) 0.4 % GRAN MAT x10^3(ANC) (test code = 8820258858) 14.29 10*3/uL 1.88-7.09 H IMM GRAN x10^3 (test code = 0017231789) 0.10 10*3/uL 0-0.06 H LYMPH x10^3 (test code = 731-0) 1.90 10*3/uL 1.32-3.29 MONO x10^3 (test code = 742-7) 1.12 10*3/uL 0.33-0.92 H EOS x10^3 (test code = 711-2) 0.34 10*3/uL 0.03-0.39 BASO x10^3 (test code = 704-7) 0.07 10*3/uL 0.01-0.07 Lab Interpretation (test code = 67085-1) [facility]normal [facility] [id number] 00:00:00* Test Item Value Reference Range Interpretation Comme nts HEMOGLOBIN A1c (test code = 52348) 10.1 % HEMOGLOBIN [id number] 00:00:00* Test Item Value Reference Range Interpretation Comme nts HEMOGLOBIN A1c (test code = 65513) 10.1 % HEMOGLOBIN [id number] 00:00:00* Test Item Value Reference Range Interpretation Comme nts HEMOGLOBIN A1c (test code = 11333) 10.1 % HEMOGLOBIN [id number] 00:00:00* Test Item Value Reference Range Interpretation Comme nts HEMOGLOBIN A1c (test code = 06717) 10.1 % HEMOGLOBIN [id number] 00:00:00* Test Item Value Reference Range Interpretation Comme nts HEMOGLOBIN A1c (test code = 32550) 10.1 % Óscar F AustinHEMOGLOBIN [id number] 00:00:00* Test Item Value Reference Range Interpretation Comme nts HEMOGLOBIN A1c (test code = 99283) 12.0 % LIPID [id number] 00:00:00* Test Item Value Reference Range Interpretation Comme nts CHOLESTEROL (test code = 2210) 202 MG/DL TRIGLYCERIDES (test code = 2232) 147 MG/DL HDL CHOLESTEROL (test code = 2220) 57 MG/DL CALC LDL CHOL (test code = 2237) 119 MG/DL RISK RATIO LDL/HDL (test cod e = 2238) 2.09 RATIO COMPREHENSIVE METABOLIC [id number] 00:00:00* Test Item Value Reference Range Interpretation Comme nts GLUCOSE (test code = 2217) 310 MG/DL BUN (test code = 2208) 15 MG/DL CREATININE (test code = 2214) 0.55 MG/DL eGFR AMER. (test cod e = 77701) 129 ML/MIN/1.73 eGFR NON- AMER. (test code = 41308) 111 ML/MIN/1.73 CALC BUN/CREAT (test code = [...] 20 U/L VITAMIN B 12 AND FOLIC [id number] 00:00:00* Test Item Value Reference Range Interpretation Comme nts VITAMIN B-12 (test code = 2840) 708 PG/ML FOLIC ACID (test code = 2695) 11.9 UG/L CBC W/AUTO [id number] 00:00:00* Test Item Value Reference Range Interpretation [...] (test code = 1015) 364 K/UL HEMOGLOBIN [id number] 00:00:00* Test Item Value Reference Range Interpretation Comme nts HEMOGLOBIN A1c (test code = 68483) 12.0 % LIPID [id number] 00:00:00* Test Item Value Reference Range Interpretation Comme nts CHOLESTEROL (test code = 2210) 202 MG/DL TRIGLYCERIDES (test code = 2232) 147 MG/DL HDL CHOLESTEROL (test code = 2220) 57 MG/DL CALC LDL CHOL (test code = 2237) 119 MG/DL RISK RATIO LDL/HDL (test cod e = 2238) 2.09 RATIO COMPREHENSIVE METABOLIC [id number] 00:00:00* Test Item Value Reference Range Interpretation Comme nts GLUCOSE (test code = 2217) 310 MG/DL BUN (test code = 2208) 15 MG/DL CREATININE (test code = 2214) 0.55 MG/DL eGFR AMER. (test cod e = 06781) 129 ML/MIN/1.73 eGFR NON- AMER. (test code = 81596) 111 ML/MIN/1.73 CALC BUN/CREAT (test code = [...] 20 U/L VITAMIN B 12 AND FOLIC [id number] 00:00:00* Test Item Value Reference Range Interpretation Comme nts VITAMIN B-12 (test code = 2840) 708 PG/ML FOLIC ACID (test code = 2695) 11.9 UG/L CBC W/AUTO [id number] 00:00:00* Test Item Value Reference Range Interpretation [...] (test code = 1015) 364 K/UL HEMOGLOBIN [id number] 00:00:00* Test Item Value Reference Range Interpretation Comme nts HEMOGLOBIN A1c (test code = 79804) 12.0 % LIPID [id number] 00:00:00* Test Item Value Reference Range Interpretation Comme nts CHOLESTEROL (test code = 2210) 202 MG/DL TRIGLYCERIDES (test code = 2232) 147 MG/DL HDL CHOLESTEROL (test code = 2220) 57 MG/DL CALC LDL CHOL (test code = 2237) 119 MG/DL RISK RATIO LDL/HDL (test cod e = 2238) 2.09 RATIO COMPREHENSIVE METABOLIC [id number] 00:00:00* Test Item Value Reference Range Interpretation Comme nts GLUCOSE (test code = 2217) 310 MG/DL BUN (test code = 2208) 15 MG/DL CREATININE (test code = 2214) 0.55 MG/DL eGFR AMER. (test cod e = 24849) 129 ML/MIN/1.73 eGFR NON- AMER. (test code = 43398) 111 ML/MIN/1.73 CALC BUN/CREAT (test code = [...] 20 U/L VITAMIN B 12 AND FOLIC [id number] 00:00:00* Test Item Value Reference Range Interpretation Comme nts VITAMIN B-12 (test code = 1680) 708 PG/ML FOLIC ACID (test code = 7045) 11.9 UG/L CBC W/AUTO [id number] 00:00:00* Test Item Value Reference Range Interpretation [...] (test code = 1015) 364 K/UL HEMOGLOBIN [id number] 00:00:00* Test Item Value Reference Range Interpretation Comme nts HEMOGLOBIN A1c (test code = 25118) 12.0 % LIPID [id number] 00:00:00* Test Item Value Reference Range Interpretation Comme nts CHOLESTEROL (test code = 2210) 202 MG/DL TRIGLYCERIDES (test code = 2232) 147 MG/DL HDL CHOLESTEROL (test code = 2220) 57 MG/DL CALC LDL CHOL (test code = 2237) 119 MG/DL RISK RATIO LDL/HDL (test cod e = 2238) 2.09 RATIO COMPREHENSIVE METABOLIC [id number] 00:00:00* Test Item Value Reference Range Interpretation Comme nts GLUCOSE (test code = 2217) 310 MG/DL BUN (test code = 2208) 15 MG/DL CREATININE (test code = 2214) 0.55 MG/DL eGFR AMER. (test cod e = 98902) 129 ML/MIN/1.73 eGFR NON- AMER. (test code = 90002) 111 ML/MIN/1.73 CALC BUN/CREAT (test code = [...] 20 U/L VITAMIN B 12 AND FOLIC [id number] 00:00:00* Test Item Value Reference Range Interpretation Comme nts VITAMIN B-12 (test code = 2840) 708 PG/ML FOLIC ACID (test code = 2695) 11.9 UG/L CBC W/AUTO [id number] 00:00:00* Test Item Value Reference Range Interpretation [...] (test code = 1015) 364 K/UL HEMOGLOBIN [id number] 00:00:00* Test Item Value Reference Range Interpretation Comme nts HEMOGLOBIN A1c (test code = 34490) 12.0 % Óscar F AustinLIPID [id number] 00:00:00* Test Item Value Reference Range Interpretation Comme nts CHOLESTEROL (test code = 2210) 202 MG/DL TRIGLYCERIDES (test code = 2232) 147 MG/DL HDL CHOLESTEROL (test code = 2220) 57 MG/DL CALC LDL CHOL (test code = 2237) 119 MG/DL RISK RATIO LDL/HDL (test cod e = 2238) 2.09 RATIO Óscar ZavalaCOMPREHENSIVE METABOLIC [id number] 00:00:00* Test Item Value Reference Range Interpretation Comme nts GLUCOSE (test code = 2217) 310 MG/DL BUN (test code = 2208) 15 MG/DL CREATININE (test code = 2214) 0.55 MG/DL eGFR AMER. (test cod e = 89083) 129 ML/MIN/1.73 eGFR NON- AMER. (test code = 69625) 111 ML/MIN/1.73 CALC BUN/CREAT (test code = [...] U/L Óscar ZavalaVITAMIN B 12 AND FOLIC [id number] 00:00:00* Test Item Value Reference Range Interpretation Comme nts VITAMIN B-12 (test code = 2840) 708 PG/ML FOLIC ACID (test code = 2695) 11.9 UG/L Óscar ZavalaCBC W/AUTO [id number] 00:00:00* Test Item Value Reference Range Interpretation [...] nts SARS-CoV-2 INTERPRETATION (t est code = 09738) NEGATIVE SOURCE (test code = 16450) NOT SPECIFIED SARS-CoV-2 (COVID-19) by RT-PCR (HIGH RISK)2020-04-01 00:00:00* Test Item Value Reference Range Interpretation Comme nts SARS-CoV-2 INTERPRETATION (t est code = 63205) NEGATIVE SOURCE (test code = 90170) NOT SPECIFIED SARS-CoV-2 (COVID-19) by RT-PCR (HIGH RISK)2020-04-01 00:00:00* Test Item Value Reference Range Interpretation Comme nts SARS-CoV-2 INTERPRETATION (t est code = 84168) NEGATIVE SOURCE (test code = 81367) NOT SPECIFIED SARS-CoV-2 (COVID-19) by RT-PCR (HIGH RISK)2020-04-01 00:00:00* Test Item Value Reference Range Interpretation Comme nts SARS-CoV-2 INTERPRETATION (t est code = 33359) NEGATIVE SOURCE (test code = 28726) NOT SPECIFIED SARS-CoV-2 (COVID-19) by RT-PCR (HIGH RISK)2020-04-01 00:00:00* Test Item Value Reference Range Interpretation Comme nts SARS-CoV-2 INTERPRETATION (t est code = 45270) NEGATIVE SOURCE (test code = 42939) NOT SPECIFIED Óscar Villalpando TEST, THINPREP, [id number] 00:00:00* Test Item Value Reference Range Interpretation Comme nts SOURCE: (test code = 8001) Cervical/Endocervical SLIDES: (test code = 8011) 1 LMP: (test code = 8021) MIRENA SPECIMEN ADEQUACY: (test code = 88605) (NOTE) INTERPRETATION: (test code = 07126) NILM/NO EPITH. ABNORMALITY;SEE BELOW OTHER COMMENTS: (test code = 8081) (NOTE) LINE FIXER: (test code = 8101) BETTY Cline(ASCP)IAC QC TECHNOLOGIST: (test code = 8111) Ney BullardSCT(ASCP),IAC LOCATION: (test code = 93919) (NOTE) CPT: (test code = 8140) (NOTE) PAP TEST, THINPREP, [id number] 00:00:00* Test Item Value Reference Range Interpretation Comme nts SOURCE: (test code = 8001) Cervical/Endocervical SLIDES: (test code = 8011) 1 LMP: (test code = 8021) MIRENA SPECIMEN ADEQUACY: (test code = 81031) (NOTE) INTERPRETATION: (test code = 44447) NILM/NO EPITH. ABNORMALITY;SEE BELOW OTHER COMMENTS: (test code = 8081) (NOTE) LINE FIXER: (test code = 8101) BETTY Cline(ASCP)IAC QC TECHNOLOGIST: (test code = 8111) Ney BullardSCT(ASCP),IAC LOCATION: (test code = 59477) (NOTE) CPT: (test code = 8140) (NOTE) PAP TEST, THINPREP, [id number] 00:00:00* Test Item Value Reference Range Interpretation Comme nts SOURCE: (test code = 8001) Cervical/Endocervical SLIDES: (test code = 8011) 1 LMP: (test code = 8021) MIRENA SPECIMEN ADEQUACY: (test code = 24134) (NOTE) INTERPRETATION: (test code = 14344) NILM/NO EPITH. ABNORMALITY;SEE BELOW OTHER COMMENTS: (test code = 8081) (NOTE) LINE FIXER: (test code = 8101) BETTY Cline(ASCP)IAC QC TECHNOLOGIST: (test code = 8111) BOYD Gabriel(ASCP),IAC LOCATION: (test code = 24204) (NOTE) CPT: (test code = 8140) (NOTE) PAP TEST, THINPREP, [id number] 00:00:00* Test Item Value Reference Range Interpretation Comme nts SOURCE: (test code = 8001) Cervical/Endocervical SLIDES: (test code = 8011) 1 LMP: (test code = 8021) MIRENA SPECIMEN ADEQUACY: (test code = 80437) (NOTE) INTERPRETATION: (test code = 16632) NILM/NO EPITH. ABNORMALITY;SEE BELOW OTHER COMMENTS: (test code = 8081) (NOTE) LINE FIXER: (test code = 8101) BETTY Cline(ASCP)IAC QC TECHNOLOGIST: (test code = 8111) Ney BullardSCT(ASCP),IAC LOCATION: (test code = 98488) (NOTE) CPT: (test code = 8140) (NOTE) PAP TEST, THINPREP, [id number] 00:00:00* Test Item Value Reference Range Interpretation Comme nts SOURCE: (test code = 8001) Cervical/Endocervical SLIDES: (test code = 8011) 1 LMP: (test code = 8021) MIRENA SPECIMEN ADEQUACY: (test code = 83240) (NOTE) INTERPRETATION: (test code = 56653) NILM/NO EPITH. ABNORMALITY;SEE BELOW OTHER COMMENTS: (test code = 8081) (NOTE) LINE FIXER: (test code = 8101) BETTY Cline(ASCP)IAC QC TECHNOLOGIST: (test code = 8111) Ney BullardSCT(ASCP),IAC LOCATION: (test code = 32578) (NOTE) CPT: (test code = 8140) (NOTE) Óscar Rose AustinHPV HIGH RISK WITH GENOTYPE, [id number] 00:00:00* Test Item Value Reference Range Interpretation Comme nts HPV HIGH RISK INTERP (test c ode = 26093) NEGATIVE HPV 16 (test code = 60787) NEGATIVE HPV 18 (test code = 92130) NEGATIVE HPV, HR, OTHER GENOTYPES (te st code = 69089) NEGATIVE HPV HIGH RISK WITH GENOTYPE, [id number] 00:00:00* Test Item Value Reference Range Interpretation Comme nts HPV HIGH RISK INTERP (test c ode = 95817) NEGATIVE HPV 16 (test code = 36567) NEGATIVE HPV 18 (test code = 43988) NEGATIVE HPV, HR, OTHER GENOTYPES (te st code = 34400) NEGATIVE HPV HIGH RISK WITH GENOTYPE, [id number] 00:00:00* Test Item Value Reference Range Interpretation Comme nts HPV HIGH RISK INTERP (test c ode = 02847) NEGATIVE HPV 16 (test code = 57106) NEGATIVE HPV 18 (test code = 04005) NEGATIVE HPV, HR, OTHER GENOTYPES (te st code = 38061) NEGATIVE HPV HIGH RISK WITH GENOTYPE, [id number] 00:00:00* Test Item Value Reference Range Interpretation Comme nts HPV HIGH RISK INTERP (test c ode = 75212) NEGATIVE HPV 16 (test code = 99055) NEGATIVE HPV 18 (test code = 17967) NEGATIVE HPV, HR, OTHER GENOTYPES (te st code = 91153) NEGATIVE HPV HIGH RISK WITH GENOTYPE, [id number] 00:00:00* Test Item Value Reference Range Interpretation Comme nts HPV HIGH RISK INTERP (test c ode = 86326) NEGATIVE HPV 16 (test code = 83750) NEGATIVE HPV 18 (test code = 08791) NEGATIVE HPV, HR, OTHER GENOTYPES (te st code = 77883) NEGATIVE Óscar F AustinGC AND CHLAMYDIA AMPLIFIED, [id number] 00:00:00* Test Item Value Reference Range Interpretation Comme nts GONORRHEA, TMA (test code = 78560) NEGATIVE CHLAMYDIA, TMA (test code = 93001) NEGATIVE GC AND CHLAMYDIA AMPLIFIED, [id number] 00:00:00* Test Item Value Reference Range Interpretation Comme nts GONORRHEA, TMA (test code = 79506) NEGATIVE CHLAMYDIA, TMA (test code = 10204) NEGATIVE GC AND CHLAMYDIA AMPLIFIED, [id number] 00:00:00* Test Item Value Reference Range Interpretation Comme nts GONORRHEA, TMA (test code = 72894) NEGATIVE CHLAMYDIA, TMA (test code = 31174) NEGATIVE GC AND CHLAMYDIA AMPLIFIED, [id number] 00:00:00* Test Item Value Reference Range Interpretation Comme nts GONORRHEA, TMA (test code = 07295) NEGATIVE CHLAMYDIA, TMA (test code = 74170) NEGATIVE GC AND CHLAMYDIA AMPLIFIED, [id number] 00:00:00* Test Item Value Reference Range Interpretation Comme nts GONORRHEA, TMA (test code = 81186) NEGATIVE CHLAMYDIA, TMA (test code = 65552) NEGATIVE Óscar Rose AustinHEMOGLOBIN [id number] 00:00:00* Test Item Value Reference Range Interpretation Comme nts HEMOGLOBIN A1c (test code = 63460) 11.9 % HEMOGLOBIN [id number] 00:00:00* Test Item Value Reference Range Interpretation Comme nts HEMOGLOBIN A1c (test code = 72840) 11.9 % HEMOGLOBIN [id number] 00:00:00* Test Item Value Reference Range Interpretation Comme nts HEMOGLOBIN A1c (test code = 91082) 11.9 % HEMOGLOBIN [id number] 00:00:00* Test Item Value Reference Range Interpretation Comme nts HEMOGLOBIN A1c (test code = 05372) 11.9 % HEMOGLOBIN [id number] 00:00:00* Test Item Value Reference Range Interpretation Comme nts HEMOGLOBIN A1c (test code = 50449) 11.9 % Óscar ZavalaCOMPREHENSIVE METABOLIC [id number] 00:00:00* Test Item Value Reference Range Interpretation Comme nts GLUCOSE (test code = 2217) 202 MG/DL BUN (test code = 2208) 9 MG/DL CREATININE (test code = 2214) 0.50 MG/DL eGFR AMER. (test cod e = 28700) 135 ML/MIN/1.73 eGFR NON- AMER. (test code = 16527) 116 ML/MIN/1.73 CALC BUN/CREAT (test code = [...] code = 2219) 20 U/L COMPREHENSIVE METABOLIC [id number] 00:00:00* Test Item Value Reference Range Interpretation Comme nts GLUCOSE (test code = 2217) 202 MG/DL BUN (test code = 2208) 9 MG/DL CREATININE (test code = 2214) 0.50 MG/DL eGFR AMER. (test cod e = 62983) 135 ML/MIN/1.73 eGFR NON- AMER. (test code = 26137) 116 ML/MIN/1.73 CALC BUN/CREAT (test code = [...] code = 2219) 20 U/L COMPREHENSIVE METABOLIC [id number] 00:00:00* Test Item Value Reference Range Interpretation Comme nts GLUCOSE (test code = 2217) 202 MG/DL BUN (test code = 2208) 9 MG/DL CREATININE (test code = 2214) 0.50 MG/DL eGFR AMER. (test cod e = 40690) 135 ML/MIN/1.73 eGFR NON- AMER. (test code = 45605) 116 ML/MIN/1.73 CALC BUN/CREAT (test code = [...] code = 2219) 20 U/L COMPREHENSIVE METABOLIC [id number] 00:00:00* Test Item Value Reference Range Interpretation Comme nts GLUCOSE (test code = 2217) 202 MG/DL BUN (test code = 2208) 9 MG/DL CREATININE (test code = 2214) 0.50 MG/DL eGFR AMER. (test cod e = 04899) 135 ML/MIN/1.73 eGFR NON- AMER. (test code = 86014) 116 ML/MIN/1.73 CALC BUN/CREAT (test code = [...] code = 2219) 20 U/L COMPREHENSIVE METABOLIC [id number] 00:00:00* Test Item Value Reference Range Interpretation Comme nts GLUCOSE (test code = 2217) 202 MG/DL BUN (test code = 2208) 9 MG/DL CREATININE (test code = 2214) 0.50 MG/DL eGFR AMER. (test cod e = 37782) 135 ML/MIN/1.73 eGFR NON- AMER. (test code = 10482) 116 ML/MIN/1.73 CALC BUN/CREAT (test code = [...] = 2219) 20 U/L Óscar Rose AustinHEMOGLOBIN [id number] 00:00:00* Test Item Value Reference Range Interpretation Comme nts HEMOGLOBIN A1c (test code = 12971) 11.2 % HEMOGLOBIN [id number] 00:00:00* Test Item Value Reference Range Interpretation Comme nts HEMOGLOBIN A1c (test code = 04949) 11.2 % HEMOGLOBIN [id number] 00:00:00* Test Item Value Reference Range Interpretation Comme nts HEMOGLOBIN A1c (test code = 63144) 11.2 % HEMOGLOBIN [id number] 00:00:00* Test Item Value Reference Range Interpretation Comme nts HEMOGLOBIN A1c (test code = 10559) 11.2 % HEMOGLOBIN [id number] 00:00:00* Test Item Value Reference Range Interpretation Comme nts HEMOGLOBIN A1c (test code = 69118) 11.2 % Óscar ZavalaPAP TEST, THINPREP, [id number] 00:00:00* Test Item Value Reference Range Interpretation Comme nts SOURCE: (test code = 8001) Cervical/Endocervical SLIDES: (test code = 8011) 1 LMP: (test code = 8021) SPECIMEN ADEQUACY: (test code = 13230) (NOTE) INTERPRETATION: (test code = 48518) NO EPITHELIAL ABNORMALITY SEE BELOW OTHER COMMENTS: (test code = 8081) (NOTE) LINE FIXER: (test code = 8101) BETTY Wilson(ASCP)IAC QC TECHNOLOGIST: (test code = 8111) BOYD Gabriel(ASCP),IAC LOCATION: (test code = 93799) (NOTE) CPT: (test code = 8140) (NOTE) PAP TEST, THINPREP, [id number] 00:00:00* Test Item Value Reference Range Interpretation Comme nts SOURCE: (test code = 8001) Cervical/Endocervical SLIDES: (test code = 8011) 1 LMP: (test code = 8021) SPECIMEN ADEQUACY: (test code = 95107) (NOTE) INTERPRETATION: (test code = 05641) NO EPITHELIAL ABNORMALITY SEE BELOW OTHER COMMENTS: (test code = 8081) (NOTE) LINE FIXER: (test code = 8101) BETTY Wilson(ASCP)IAC QC TECHNOLOGIST: (test code = 8111) BOYD Gabriel(ASCP),IAC LOCATION: (test code = 62561) (NOTE) CPT: (test code = 8140) (NOTE) PAP TEST, THINPREP, [id number] 00:00:00* Test Item Value Reference Range Interpretation Comme nts SOURCE: (test code = 8001) Cervical/Endocervical SLIDES: (test code = 8011) 1 LMP: (test code = 8021) SPECIMEN ADEQUACY: (test code = 75764) (NOTE) INTERPRETATION: (test code = 49798) NO EPITHELIAL ABNORMALITY SEE BELOW OTHER COMMENTS: (test code = 8081) (NOTE) LINE FIXER: (test code = 8101) BETTY Wilson(ASCP)IAC QC TECHNOLOGIST: (test code = 8111) BOYD Gabriel(ASCP),IAC LOCATION: (test code = 93775) (NOTE) CPT: (test code = 8140) (NOTE) PAP TEST, THINPREP, [id number] 00:00:00* Test Item Value Reference Range Interpretation Comme nts SOURCE: (test code = 8001) Cervical/Endocervical SLIDES: (test code = 8011) 1 LMP: (test code = 8021) SPECIMEN ADEQUACY: (test code = 54659) (NOTE) INTERPRETATION: (test code = 18767) NO EPITHELIAL ABNORMALITY SEE BELOW OTHER COMMENTS: (test code = 8081) (NOTE) LINE FIXER: (test code = 8101) BETTY Wilson(ASCP)IAC QC TECHNOLOGIST: (test code = 8111) Ney BullardSCT(ASCP),IAC LOCATION: (test code = 70243) (NOTE) CPT: (test code = 8140) (NOTE) PAP TEST, THINPREP, [id number] 00:00:00* Test Item Value Reference Range Interpretation Comme nts SOURCE: (test code = 8001) Cervical/Endocervical SLIDES: (test code = 8011) 1 LMP: (test code = 8021) SPECIMEN ADEQUACY: (test code = 64118) (NOTE) INTERPRETATION: (test code = 96620) NO EPITHELIAL ABNORMALITY SEE BELOW OTHER COMMENTS: (test code = 8081) (NOTE) LINE FIXER: (test code = 8101) BETTY Wilson(ASCP)IAC QC TECHNOLOGIST: (test code = 8111) [facility](AS[facility]),IAC LOCATION: (test code = 84567) (NOTE) CPT: (test code = 8140) (NOTE) Óscar Rose AustinHPV HIGH RISK WITH GENOTYPE, [id number] 00:00:00* Test Item Value Reference Range Interpretation Comme nts HPV HIGH RISK INTERP (test c ode = 98267) POSITIVE HPV 16 (test code = 59017) NEGATIVE HPV 18 (test code = 04837) NEGATIVE HPV, HR, OTHER GENOTYPES (te st code = 61954) POSITIVE HPV HIGH RISK WITH GENOTYPE, [id number] 00:00:00* Test Item Value Reference Range Interpretation Comme nts HPV HIGH RISK INTERP (test c ode = 12021) POSITIVE HPV 16 (test code = 66774) NEGATIVE HPV 18 (test code = 51032) NEGATIVE HPV, HR, OTHER GENOTYPES (te st code = 98437) POSITIVE HPV HIGH RISK WITH GENOTYPE, [id number] 00:00:00* Test Item Value Reference Range Interpretation Comme nts HPV HIGH RISK INTERP (test c ode = 03806) POSITIVE HPV 16 (test code = 88613) NEGATIVE HPV 18 (test code = 25185) NEGATIVE HPV, HR, OTHER GENOTYPES (te st code = 47711) POSITIVE HPV HIGH RISK WITH GENOTYPE, [id number] 00:00:00* Test Item Value Reference Range Interpretation Comme nts HPV HIGH RISK INTERP (test c ode = 30858) POSITIVE HPV 16 (test code = 08444) NEGATIVE HPV 18 (test code = 84561) NEGATIVE HPV, HR, OTHER GENOTYPES (te st code = 21261) POSITIVE HPV HIGH RISK WITH GENOTYPE, [id number] 00:00:00* Test Item Value Reference Range Interpretation Comme nts HPV HIGH RISK INTERP (test c ode = 75946) POSITIVE HPV 16 (test code = 82704) NEGATIVE HPV 18 (test code = 60421) NEGATIVE HPV, HR, OTHER GENOTYPES (te st code = 27448) POSITIVE Óscar Rose AustinLIPID [id number] 00:00:00* Test Item Value Reference Range Interpretation Comme nts CHOLESTEROL (test code = 2210) 167 MG/DL TRIGLYCERIDES (test code = 2232) 118 MG/DL HDL CHOLESTEROL (test code = 2220) 57 MG/DL CALC LDL CHOL (test code = 2237) 86 MG/DL RISK RATIO LDL/HDL (test cod e = 2238) 1.52 RATIO CBC W/AUTO [id number] 00:00:00* Test Item Value Reference Range Interpretation [...] (test code = 1015) 360 K/UL HEMOGLOBIN [id number] 00:00:00* Test Item Value Reference Range Interpretation Comme nts HEMOGLOBIN A1c (test code = 90134) 9.5 % THYROID II PROFILE (T3U, T4, T7, TSH)2016-04-13 00:00:00* Test Item Value Reference Range Interpretation Comme nts T3 UPTAKE (test code = 2817) 27.5 % T4 (THYROXINE) (test code = 2819) 8.7 UG/DL CALCULATED T7 (FTI) (test co de = 2820) 2.39 TSH (test code = 2821) 2.3 UIU/ML COMPREHENSIVE METABOLIC [id number] 00:00:00* Test Item Value Reference Range Interpretation Comme nts GLUCOSE (test code = 2217) 252 MG/DL BUN (test code = 2208) 13 MG/DL CREATININE (test code = 2214) 0.57 MG/DL eGFR AMER. (test cod e = 44978) 131 ML/MIN/1.73 eGFR NON- AMER. (test code = 56673) 113 ML/MIN/1.73 CALC BUN/CREAT (test code = [...] (test code = 2219) 16 U/L LIPID [id number] 00:00:00* Test Item Value Reference Range Interpretation Comme nts CHOLESTEROL (test code = 2210) 167 MG/DL TRIGLYCERIDES (test code = 2232) 118 MG/DL HDL CHOLESTEROL (test code = 2220) 57 MG/DL CALC LDL CHOL (test code = 2237) 86 MG/DL RISK RATIO LDL/HDL (test cod e = 2238) 1.52 RATIO CBC W/AUTO [id number] 00:00:00* Test Item Value Reference Range Interpretation [...] (test code = 1015) 360 K/UL HEMOGLOBIN [id number] 00:00:00* Test Item Value Reference Range Interpretation Comme nts HEMOGLOBIN A1c (test code = 99537) 9.5 % THYROID II PROFILE (T3U, T4, T7, TSH)2016-04-13 00:00:00* Test Item Value Reference Range Interpretation Comme nts T3 UPTAKE (test code = 2817) 27.5 % T4 (THYROXINE) (test code = 2819) 8.7 UG/DL CALCULATED T7 (FTI) (test co de = 2820) 2.39 TSH (test code = 2821) 2.3 UIU/ML COMPREHENSIVE METABOLIC [id number] 00:00:00* Test Item Value Reference Range Interpretation Comme nts GLUCOSE (test code = 2217) 252 MG/DL BUN (test code = 2208) 13 MG/DL CREATININE (test code = 2214) 0.57 MG/DL eGFR AMER. (test cod e = 35719) 131 ML/MIN/1.73 eGFR NON- AMER. (test code = 35530) 113 ML/MIN/1.73 CALC BUN/CREAT (test code = [...] (test code = 2219) 16 U/L LIPID [id number] 00:00:00* Test Item Value Reference Range Interpretation Comme nts CHOLESTEROL (test code = 2210) 167 MG/DL TRIGLYCERIDES (test code = 2232) 118 MG/DL HDL CHOLESTEROL (test code = 2220) 57 MG/DL CALC LDL CHOL (test code = 2237) 86 MG/DL RISK RATIO LDL/HDL (test cod e = 2238) 1.52 RATIO CBC W/AUTO [id number] 00:00:00* Test Item Value Reference Range Interpretation [...] (test code = 1015) 360 K/UL HEMOGLOBIN [id number] 00:00:00* Test Item Value Reference Range Interpretation Comme nts HEMOGLOBIN A1c (test code = 08158) 9.5 % THYROID II PROFILE (T3U, T4, T7, TSH)2016-04-13 00:00:00* Test Item Value Reference Range Interpretation Comme nts T3 UPTAKE (test code = 2817) 27.5 % T4 (THYROXINE) (test code = 2819) 8.7 UG/DL CALCULATED T7 (FTI) (test co de = 2820) 2.39 TSH (test code = 2821) 2.3 UIU/ML COMPREHENSIVE METABOLIC [id number] 00:00:00* Test Item Value Reference Range Interpretation Comme nts GLUCOSE (test code = 2217) 252 MG/DL BUN (test code = 2208) 13 MG/DL CREATININE (test code = 2214) 0.57 MG/DL eGFR AMER. (test cod e = 40236) 131 ML/MIN/1.73 eGFR NON- AMER. (test code = 28164) 113 ML/MIN/1.73 CALC BUN/CREAT (test code = [...] (test code = 2219) 16 U/L LIPID [id number] 00:00:00* Test Item Value Reference Range Interpretation Comme nts CHOLESTEROL (test code = 2210) 167 MG/DL TRIGLYCERIDES (test code = 2232) 118 MG/DL HDL CHOLESTEROL (test code = 2220) 57 MG/DL CALC LDL CHOL (test code = 2237) 86 MG/DL RISK RATIO LDL/HDL (test cod e = 2238) 1.52 RATIO CBC W/AUTO [id number] 00:00:00* Test Item Value Reference Range Interpretation [...] (test code = 1015) 360 K/UL HEMOGLOBIN [id number] 00:00:00* Test Item Value Reference Range Interpretation Comme nts HEMOGLOBIN A1c (test code = 87750) 9.5 % THYROID II PROFILE (T3U, T4, T7, TSH)2016-04-13 00:00:00* Test Item Value Reference Range Interpretation Comme nts T3 UPTAKE (test code = 2817) 27.5 % T4 (THYROXINE) (test code = 2819) 8.7 UG/DL CALCULATED T7 (FTI) (test co de = 2820) 2.39 TSH (test code = 2821) 2.3 UIU/ML COMPREHENSIVE METABOLIC [id number] 00:00:00* Test Item Value Reference Range Interpretation Comme nts GLUCOSE (test code = 2217) 252 MG/DL BUN (test code = 2208) 13 MG/DL CREATININE (test code = 2214) 0.57 MG/DL eGFR AMER. (test cod e = 06509) 131 ML/MIN/1.73 eGFR NON- AMER. (test code = 60952) 113 ML/MIN/1.73 CALC BUN/CREAT (test code = [...] code = 2219) 16 U/L COMPREHENSIVE METABOLIC [id number] 00:00:00* Test Item Value Reference Range Interpretation Comme nts GLUCOSE (test code = 2217) 252 MG/DL BUN (test code = 2208) 13 MG/DL CREATININE (test code = 2214) 0.57 MG/DL eGFR AMER. (test cod e = 22199) 131 ML/MIN/1.73 eGFR NON- AMER. (test code = 09294) 113 ML/MIN/1.73 CALC BUN/CREAT (test code = [...] code = 2219) 16 U/L Óscar ZavalaLIPID [id number] 00:00:00* Test Item Value Reference Range Interpretation Comme nts CHOLESTEROL (test code = 2210) 167 MG/DL TRIGLYCERIDES (test code = 2232) 118 MG/DL HDL CHOLESTEROL (test code = 2220) 57 MG/DL CALC LDL CHOL (test code = 2237) 86 MG/DL RISK RATIO LDL/HDL (test cod e = 2238) 1.52 RATIO Óscar ZavalaCBC W/AUTO [id number] 00:00:00* Test Item Value Reference Range Interpretation [...] code = 1015) 360 K/UL Óscar ZavalaHEMOGLOBIN [id number] 00:00:00* Test Item Value Reference Range Interpretation Comme nts HEMOGLOBIN A1c (test code = 18365) 9.5 % Óscar ZavalaTHYROID II PROFILE (T3U, [...] (test code = 2821) 1.3 UIU/ML LIPID [id number] 00:00:00* Test Item Value Reference Range Interpretation Comme nts CHOLESTEROL (test code = 2210) 167 MG/DL TRIGLYCERIDES (test code = 2232) 113 MG/DL HDL CHOLESTEROL (test code = 2220) 53 MG/DL CALCULATED LDL CHOL (test co de = 2237) 91 MG/DL RISK RATIO LDL/HDL (test cod e = 2238) 1.72 RATIO COMPREHENSIVE METABOLIC [id number] 00:00:00* Test Item Value Reference Range Interpretation Comme nts GLUCOSE (test code = 2217) 195 MG/DL BUN (test code = 2208) 14 MG/DL CREATININE (test code = 2214) 0.55 MG/DL eGFR AMER. (test cod e = 54248) 132 ML/MIN/1.73 eGFR NON- AMER. (test code = 18016) 114 ML/MIN/1.73 CALCULATED BUN/CREAT (test code = [...] (test code = 2219) 21 U/L HEMOGLOBIN [id number] 00:00:00* Test Item Value Reference Range Interpretation Comme nts HEMOGLOBIN A1c (test code = 27536) 9.9 % CBC W/AUTO [id number] 00:00:00* Test Item Value Reference Range Interpretation [...] (test code = 2821) 1.3 UIU/ML LIPID [id number] 00:00:00* Test Item Value Reference Range Interpretation Comme nts CHOLESTEROL (test code = 2210) 167 MG/DL TRIGLYCERIDES (test code = 2232) 113 MG/DL HDL CHOLESTEROL (test code = 2220) 53 MG/DL CALCULATED LDL CHOL (test co de = 2237) 91 MG/DL RISK RATIO LDL/HDL (test cod e = 2238) 1.72 RATIO COMPREHENSIVE METABOLIC [id number] 00:00:00* Test Item Value Reference Range Interpretation Comme nts GLUCOSE (test code = 2217) 195 MG/DL BUN (test code = 2208) 14 MG/DL CREATININE (test code = 2214) 0.55 MG/DL eGFR AMER. (test cod e = 40001) 132 ML/MIN/1.73 eGFR NON- AMER. (test code = 21231) 114 ML/MIN/1.73 CALCULATED BUN/CREAT (test code = [...] (test code = 2219) 21 U/L HEMOGLOBIN [id number] 00:00:00* Test Item Value Reference Range Interpretation Comme nts HEMOGLOBIN A1c (test code = 06896) 9.9 % CBC W/AUTO [id number] 00:00:00* Test Item Value Reference Range Interpretation [...] (test code = 2821) 1.3 UIU/ML LIPID [id number] 00:00:00* Test Item Value Reference Range Interpretation Comme nts CHOLESTEROL (test code = 2210) 167 MG/DL TRIGLYCERIDES (test code = 2232) 113 MG/DL HDL CHOLESTEROL (test code = 2220) 53 MG/DL CALCULATED LDL CHOL (test co de = 2237) 91 MG/DL RISK RATIO LDL/HDL (test cod e = 2238) 1.72 RATIO COMPREHENSIVE METABOLIC [id number] 00:00:00* Test Item Value Reference Range Interpretation Comme nts GLUCOSE (test code = 2217) 195 MG/DL BUN (test code = 2208) 14 MG/DL CREATININE (test code = 2214) 0.55 MG/DL eGFR AMER. (test cod e = 30647) 132 ML/MIN/1.73 eGFR NON- AMER. (test code = 94146) 114 ML/MIN/1.73 CALCULATED BUN/CREAT (test code = [...] 57 U/L SGOT (AST) (test code = 221) 19 U/L SGPT (ALT) (test code = 221) 21 U/L HEMOGLOBIN [id number] 00:00:00* Test Item Value Reference Range Interpretation Comme nts HEMOGLOBIN A1c (test code = 55374) 9.9 % CBC W/AUTO [id number] 00:00:00* Test Item Value Reference Range Interpretation [...] (test code = 2821) 1.3 UIU/ML LIPID [id number] 00:00:00* Test Item Value Reference Range Interpretation Comme nts CHOLESTEROL (test code = 2210) 167 MG/DL TRIGLYCERIDES (test code = 2232) 113 MG/DL HDL CHOLESTEROL (test code = 2220) 53 MG/DL CALCULATED LDL CHOL (test co de = 2237) 91 MG/DL RISK RATIO LDL/HDL (test cod e = 2238) 1.72 RATIO COMPREHENSIVE METABOLIC [id number] 00:00:00* Test Item Value Reference Range Interpretation Comme nts GLUCOSE (test code = 2217) 195 MG/DL BUN (test code = 2208) 14 MG/DL CREATININE (test code = 2214) 0.55 MG/DL eGFR AMER. (test cod e = 99890) 132 ML/MIN/1.73 eGFR NON- AMER. (test code = 19155) 114 ML/MIN/1.73 CALCULATED BUN/CREAT (test code = [...] (test code = 2219) 21 U/L HEMOGLOBIN [id number] 00:00:00* Test Item Value Reference Range Interpretation Comme nts HEMOGLOBIN A1c (test code = 32593) 9.9 % CBC W/AUTO [id number] 00:00:00* Test Item Value Reference Range Interpretation [...] code = 1015) 352 K/UL CBC W/AUTO [id number] 00:00:00* Test Item Value Reference Range Interpretation [...] (test code = 1015) 352 K/UL Óscar Rose AustinTHYROID II PROFILE (T3U, T4, T7, TSH)2015-12-16 00:00:00* Test Item Value Reference Range Interpretation Comme nts T3 UPTAKE (test code = 2817) 27.2 % T4 (THYROXINE) (test code = 2819) 8.9 UG/DL CALCULATED T7 (FTI) (test co de = 2820) 2.42 TSH (test code = 2821) 1.3 UIU/ML Óscar Rose AustinLIPID [id number] 00:00:00* Test Item Value Reference Range Interpretation Comme nts CHOLESTEROL (test code = 2210) 167 MG/DL TRIGLYCERIDES (test code = 2232) 113 MG/DL HDL CHOLESTEROL (test code = 2220) 53 MG/DL CALCULATED LDL CHOL (test co de = 2237) 91 MG/DL RISK RATIO LDL/HDL (test cod e = 2238) 1.72 RATIO Óscar ZavalaCOMPREHENSIVE METABOLIC [id number] 00:00:00* Test Item Value Reference Range Interpretation Comme nts GLUCOSE (test code = 2217) 195 MG/DL BUN (test code = 2208) 14 MG/DL CREATININE (test code = 2214) 0.55 MG/DL eGFR AMER. (test cod e = 25191) 132 ML/MIN/1.73 eGFR NON- AMER. 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 Patient states most recent morning blood sugar: to 211 md/dL OBJECTIVE: PHYSICAL EXAM OF THE LOWER EXTREMITY VASCULAR: (-) edema symmetrical to bilateral lower extremity (-) ecchymosis (-) erythema (+) 2/4 pedal pulses, bilateral (+) Capillary Refill time: within normal limits (+) varicosities (-) pedal hair growth NEUROLOGICAL: (-) sensation with 5.07 Wallace Orion monofilament examination to the most distal lower extremity (-) tinel's sign (-) clonus present DERMATOLOGICAL: (+) full thickness ulceration, LEFT HALLUX NAIL BED AFTER TOTAL NAIL AVULSION, Measuring 1 x 1 cm after debridement (-) signs of infection (+) granular wound base (+) healthy bleeding tissue noted during debridement (-) probing to bone (-) ischemic tissue (-) macerations (-) drainage (-) fluctuation/abscess (-) mal odor (+) remainder of BILATERAL lower extremity with normal color, tugor, and elasticity MUSCULOSKELETAL: (-) gross osseous abnormalities (-) pain on palpation through the lower extremity 5/5 muscle strength to extrinsic pedal muscle groups (-) evidence of compartment syndrome, (-) evidence of deep vein thrombosis ASSESSMENT: ULCER, LEFT HALLUX --- Type 2 diabetes mellitus with neuropathy PLAN: - Extensive office visit. Ulcer is likely caused by a combination of factors and comorbidities. - Patient advised to keep the wound clean and offloaded. Discussed possible pedal complications associated with diagnosis and prognosis in combination with co-morbidities - Antibiotics - MUST continue previously prescribed Bactrim - Pain - well controlled - Wound - DEBRIDED since medically necessary FULL-THICKNESS to evaluate the wound to perform open (cutting through the skin and/or mucous membrane), sharp, excisional debridement with scalpel blade to debrided other non-viable tissue through the subcutaneous layer. Wound margin has irregular borders and unable to determine exact size. - NAIL BIOPSY - OBTAINED 11/11/2024 LEFT HALLUX with sharp instruments, no open wounds thus no bandage necessary. A biopsy was necessary to help determine the underlying pathogen for the thick, yellow, irregular nail shape. - Home Care - PROVIDED detailed daily home care instructions to cleanse with Hibiclens, apply topical antibiotic medication and dry sterile dressing. Patient advised to seek consultation from administrative services specialist, however patient requesting to continue care at this office and understands risks - Culture - Unable to obtain due to lack of specimen - X-rays - ORDERED 11/11/2024 - MRI - not indicated - Vascular - no studies acutely indicated since patient has palpable pedal pulses, healthy bleeding during debridement, no ischemic tissue, - Edema - continue to apply compression - Weight bearing - Must offload wound - shoe gear - educated to obtain diabetic shoe gear with custom inserts - diabetes - patient educated on appropriate glycemic control and complications in the lower extremity Return 1 week for wound evaluation. Patient advised to report to my clinic or the emergency room immediately with any questions or concerns. Discussion: A detailed discussion was provided to the patient with specific reference to etiology, pathology, alternate treatment options, and prognosis. All risks and complications (including side effects) with each treatment/medication alternative were outlined in detail including but not limited to: Pain, swelling, numbness, loss of function, loss of limb, bleeding, hematoma, scarring, failure to relieve condition, surgery, additional/revisional surgery, reflex sympathetic dystrophy, complex regional pain syndrome, reoccurrence of deformity, joint stiffness, flail toe, bone and/or soft tissue infection, blood clots, pulmonary embolism, possible , delayed or non-healing. X-rays, graphs and drawings were all used to assist with patient comprehension whenappropriate. All patients questions were answered and stated they fully understood. No guarantee as to results or outcome of treatment was made. I have discussed with the patient or legally responsible person prior to obtaining consent: the risks, potential benefits and drawbacks, significant alternatives, potential for problems related to recuperation, likelihood of success, and possible results of non-treatment, and the patient or the legally responsible person has agreed to proceed [facility]2025-02-05 10:59:43Upcoming Encounters Scheduled Orders Name Type Priority Associated Diagnoses Orde r Schedule Fungal Culture Skin/Hair/Nails w/Smear Microbiology Routine Onychomycosis Expected: 2024, Expires: 12/09/2024 Health Maintenance Due Date Last Done Comments CT Colonography 1971 Colonoscopy 1971 Colorectal Cancer Screening 1971 FIT-DNA 1971 FIT 1971 FOBT 1971 Sigmoidoscopy 1971 Annual Physical 1974 Diabetes: Foot Exam 1981 Diabetes: Retinopathy Screening 1981 Pap Smear 1992 Cervical Cancer Screening 2001 HPV/Cotest 2001 Mammogram 2011 Zoster Vaccines (1 of 2) 2021 Diabetes: Hemoglobin A1C 01/13/2024 10/14/2023 Influenza Vaccine (#1) 2024 Diabetes: Urine Protein Screening 10/14/2024 10/14/2023 Lipid Panel 10/14/2024 10/14/2023 DTaP/Tdap/Td Vaccines (3 - T d or Tdap) 10/14/2033 10/14/2023, 08/12/2013 Hepatitis B Vaccines Completed 10/29/2013, 08/12/2013, 04/22/2013 HIB Vaccines Aged Out No longer eligi ble based on patient's age to complete this topic HPV Vaccines Aged Out No longer eligi ble based on patient's age to complete this topic Hepatitis A Vaccines Aged Out No long er eligible based on patient's age to complete this topic IPV Vaccines Aged Out No longer eligi ble based on patient's age to complete this topic Meningococcal Vaccine Aged Out No allen adamaris eligible based on patient's age to complete this topic Pneumococcal Vaccine: Pediatrics (0 to 5 Years) and At-Risk Patients (6 to 64 Years) Aged Out No longer eligible b ased on patient's age to complete this topic Rotavirus Vaccines Aged Out No longer eligible based on patient's age to complete this topic [facility]em[facility]01[facility] 10:59:43 Diagnosis Onychomycosis - Primary Dermatophytosis of nail Abnormal foot finding [facility] [id number] 22:47:59 Awake, alert oriented X4, respiratory even and unlabored,skin w/d color appropriate for race, moves all ext well, pt encouraged to follow up with pcp and or return as needed. Pt given printed and verbal discharge instructions regarding unspecified fever, acute cough, nasal congestion, otalgia of both ears, and tonsillitis with exudate. Patient verbalized understanding and signature obtained, patient denies any other concerns. Prescriptions provided. Discussed antibiotic therapy and to take until all completed unless adverse reaction occurs - if occurs, discontinue medication and follow up with pcp/seek medical attention Advised to seek medical attention for new/prolonged/worsening of symptoms. No adverse reaction to meds given in ER noted upon discharge. Pt ambulated to the [facility] with steady gait. ER SHIELDED METAL ARC [facility]unders [facility]tu[facility]56[facility] 19:50:38 Pt presents to ED ambulatory with c/o sore throat, "not feeling well", and fever that started last night. ER SHIELDED METAL ARC Victor Hugo Philippe [id number] 00:00:00 Óscar Saunders [facility]
[2025-01-10] MEDS ORDERED: ONDANSETRON 4 MG/2 ML VIAL ONE (01:47)
[2025-01-10] MEDS ORDERED: NA CHLORIDE 0.9% 1,000 ML ONE ×2 (01:47→04:35)
[2025-01-10] MEDS ORDERED: FAMOTIDINE 20 MG/2 ML VIAL IV ONE (01:47)
[2025-01-10] MEDS ORDERED: PROMETHAZINE INJ 25 MG/ML AMP ONE (02:12)
[2025-01-10] MEDS ORDERED: MORPHINE 4 MG/ML SYR ONE (02:12)
[2025-01-10 02:24] LABS: PT Prothrombin Time 12.2 SECONDS (10-13.0); Protime INR 1.07
[2025-01-10 02:25] LABS: Absolute Basophils 0.1 K/uL (0-0.5); Absolute Eosinophils 0.2 K/uL (0-0.5); Absolute Lymphocytes (CBC) 2.3 K/uL (0.7-4.9); Absolute Monocytes 0.9 K/uL (0.1-1.3); Absolute Neutrophil 7.6 K/uL (1.8-8.0); Basophils % 0.6 % (0-1.3); Hematocrit 41.7 % (36.0-45.0); Hemoglobin 14.2 g/dL (12.0-15.0); MCH 29.2 pg (27.0-35.0); MCV 85.9 fL (80-100); MPV 8.7 fL (7.6-11.3); Monocytes % 7.9 % (3.3-12.3); Neutrophils % 68.5 % (41.7-73.7); Nucleated Red Blood Cells % 0.1 % (0-0); Platelets 353 thou/uL (152-406); RBC Red Blood Cell Count 4.86 M/uL (3.86-4.86); Red Cell Distribution Width 12.5 % (12.1-15.2)
--- NOTE | 2025-01-10 03:19 | EDPHYS ---
Physician Documentation [facility] Name: Tova Ames Age: 54 yrs Sex: Female : 1970 Arrival Date: 01/10/2025 Time: 01:24 Bed 8 Private MD: DOMENCIO Physician Cody Ron HPI: 01/10 02:20 This 54 yrs old Female presents to ER via Wheelchair with complaints of brian Nausea/Vomiting. 02:20 The patient presents to the emergency department with nausea, vomiting, abdominal pain, brian of the epigastric area, right upper quadrant and left upper quadrant. Onset: The symptoms/episode began/occurred yesterday. Possible causes: unknown, antibiotics. The symptoms are aggravated by movement, pressure, food . Associated signs and symptoms: Pertinent positives: abdominal pain, nausea, vomiting. Severity of symptoms: At their worst the symptoms were moderate in the emergency department the symptoms are unchanged. The patient has experienced similar episodes in the past, several times. 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 - Infectious Disease History:: Denies. - Social history:: Smoking status: Patient/guardian denies using tobacco, Patient/guardian denies using alcohol, street drugs. ROS: 02:33 Constitutional: Negative for fever, chills, and weight loss, Eyes: Negative for injury, brian pain, redness, and discharge, ENT: Negative for injury, pain, and discharge, Neck: Negative for injury, pain, and swelling, Cardiovascular: Negative for chest pain, palpitations, and edema, Respiratory: Negative for shortness of breath, cough, wheezing, and pleuritic chest pain, Back: Negative for injury and pain, : Negative for injury, bleeding, discharge, and swelling, MS/Extremity: Negative for injury and deformity, Skin: Negative for injury, rash, and discoloration, Neuro: Negative for headache, weakness, numbness, tingling, and seizure, Psych: Negative for depression, anxiety, suicide ideation, homicidal ideation, and hallucinations, Allergy/Immunology: Negative for hives, rash, and allergies, Endocrine: Negative for neck swelling, polydipsia, polyuria, polyphagia, and marked weight changes, Hematologic/Lymphatic: Negative for swollen nodes, abnormal bleeding, and unusual bruising, 02:33 Abdomen/GI: Positive for abdominal pain, nausea and vomiting, of the epigastric area, right upper quadrant and left upper quadrant, Exam: 02:33 Constitutional: This is a well developed, well nourished patient who is awake, alert, brian and in no acute distress. Head/Face: Normocephalic, atraumatic. Eyes: Pupils equal round and reactive to light, extra-ocular motions intact. Lids and lashes normal. Conjunctiva and sclera are non-icteric and not injected. Cornea within normal limits. Periorbital areas with no swelling, redness, or edema. ENT: Nares patent. No nasal discharge, no septal abnormalities noted. Tympanic membranes are normal and external auditory canals are clear. Oropharynx with no redness, swelling, or masses, exudates, or evidence of obstruction, uvula midline. Mucous membranes moist. Neck: Trachea midline, no thyromegaly or masses palpated, and no cervical lymphadenopathy. Supple, full range of motion without nuchal rigidity, or vertebral point tenderness. No Meningismus. Chest/axilla: Normal chest wall appearance and motion. Nontender with no deformity. No lesions are appreciated. Cardiovascular: Regular rate and rhythm with a normal S1 and S2. No gallops, murmurs, or rubs. Normal PMI, no JVD. No pulse deficits. Respiratory: Lungs have equal breath sounds bilaterally, clear to auscultation and percussion. No rales, rhonchi or wheezes noted. No increased work of breathing, no retractions or nasal flaring. Back: No spinal tenderness. No costovertebral tenderness. Full range of motion. Skin: Warm, dry with normal turgor. Normal color with no rashes, no lesions, and no evidence of cellulitis. MS/ Extremity: Pulses equal, no cyanosis. Neurovascular intact. Full, normal range of motion., bilateral aka Neuro: Awake and alert, GCS 15, oriented to person, place, time, and situation. Cranial nerves II-XII grossly intact. Motor strength 5/5 in all extremities. Sensory grossly intact. Cerebellar exam normal. Normal gait. Psych: Awake, alert, with orientation to person, place and time. Behavior, mood, and affect are within normal limits. 02:33 ECG was reviewed by the Attending Physician. 02:33 Abdomen/GI: Inspection: abdomen appears normal, Bowel sounds: normal, Palpation: mild abdominal tenderness, moderate abdominal tenderness, in the right upper quadrant and left upper quadrant, 02:33 Musculoskeletal/extremity: DVT Exam: No signs of deep vein thrombosis. no pain, no swelling, no tenderness, negative Homans' sign noted on exam, no appreciated bluish discoloration, no erythema, no increased warmth, Vital Signs: 01:49 BP 160 / 93; Pulse 97; Resp 18; Temp 97.4(TE); Pulse Ox 100% on R/A; Weight 74.84 kg; br2 Height 5 ft. 2 in. ; Pain 7/10; 02:15 BP 153 / 76; Pulse 90; Resp 22; Pulse Ox 99% ; al5 02:30 BP 141 / 82; Pulse 89; Resp 15; Pulse Ox 96% ; al5 03:00 BP 141 / 82; Pulse 83; Resp 16; Temp 97.4(A); Pulse Ox 95% ; al5 03:30 BP 150 / 83; Pulse 89; Resp 19; Pulse Ox 98% ; al5 04:53 BP 148 / 82; Pulse 97; Resp 15; Pulse Ox 98% ; al5 01:49 Body Mass Index 30.18 (74.84 kg, 157.48 cm) br2 01:49 Pain Scale: Adult br2 MDM: 01:28 Medical Screening Exam initiated brian 01:34 Medical Screening Exam initiated brian 02:41 Differential diagnosis: Nonspecific abd pain, gastritis, cholecystitis, pancreatitis, brian appendicitis, diverticulitis, viral gastroenteritis, gastroenteritis, appendicitis, bowel obstruction, cholecystitis, Cholelithiasis, diverticulitis. Data reviewed: vital signs, nurses notes, lab test result(s), EKG, radiologic studies, CT scan. Consideration of Admission/Observation Patient was admitted/placed on observation. Escalation of care including admission/observation considered. I considered the following discharge prescriptions or medication management in the emergency department Medications were administered in the Emergency Department. See MAR. Independent interpretation of the following test(s) in the Emergency Department EKG: See my EKG interpretation above. Care significantly affected by the following chronic conditions: Diabetes, Hypertension, Obesity. Counseling: I had a detailed discussion with the patient and/or guardian regarding the historical points, exam findings, and any diagnostic results supporting the discharge/admit diagnosis, the presence of at least one elevated blood pressure reading (>120/80) during this emergency department visit, lab results, radiology results. 01/10 01:30 Order name: Basic Metabolic Panel; Complete Time: 04:15 brian 01/10 01:30 Order name: CBC with Diff; Complete Time: 02:44 brian 01/10 01:30 Order name: LFT's; Complete Time: 04:15 brian 01/10 01:30 Order name: Magnesium; Complete Time: 04:15 brian 01/10 01:30 Order name: NT PRO-BNP; Complete Time: 04:15 brian 01/10 01:30 Order name: PT-INR; Complete Time: 02:44 brian 01/10 01:30 Order name: Troponin HS; Complete Time: 04:15 brian 01/10 01:30 Order name: Lipase; Complete Time: 04:15 brian 01/10 01:30 Order name: Urinalysis w/ reflexes brian 01/10 04:51 Order name: Urinalysis w/ reflexes EDMS 01/10 04:51 Order name: CBC with Automated Diff EDMS 01/10 04:51 Order name: CBC with Automated Diff EDMS 01/10 04:51 Order name: Comprehensive Metabolic Panel EDMS 01/10 04:51 Order name: Comprehensive Metabolic Panel EDMS 01/10 01:30 Order name: XRAY Chest (1 view); Complete Time: 04:15 brian 01/10 02:03 Order name: CT Abd/Pelvis - IV Contrast Only brian 01/10 01:30 Order name: Cardiac monitoring; Complete Time: 01:49 brian 01/10 01:30 Order name: EKG - Nurse/Tech; Complete Time: 01:50 brian 01/10 01:30 Order name: IV Saline Lock; Complete Time: 01:50 brian 01/10 01:30 Order name: Labs collected and sent; Complete Time: 01:55 brian 01/10 01:30 Order name: O2 Per Protocol; Complete Time: 01:50 brian 01/10 01:30 Order name: O2 Sat Monitoring; Complete Time: :50 brian EC:33 Rate is 94 beats/min. Rhythm is regular. QRS Leander is Normal. DE interval is normal. QRS brian interval is normal. QT interval is normal. No Q waves. T waves are Normal. No ST changes noted. Clinical impression: NSR w/ Non-specific ST/T Changes and No evidence of ischemia. Interpreted by me. Reviewed by me. Administered Medications: 01:54 Drug: NS 0.9% IV 1000 ml IV at 1000 ml once; to be given as a bolus over 60 minutes jj7 Route: IV; Rate: 1000 ml; Site: right antecubital; 04:53 Follow up: Response: No adverse reaction; IV Status: Completed infusion; IV Intake: al5 1000ml 01:54 Drug: Famotidine IVP 20 mg IVP once; dilute with 10 mL 0.9% NaCl; give over 2 minutes jj7 Route: IVP; Site: right antecubital; 02:20 Follow up: Response: No adverse reaction; Pain is unchanged, physician notified al5 01:54 Drug: Ondansetron IVP 8 mg IVP once; over 2 minutes Route: IVP; Site: right antecubital;jj7 02:19 Follow up: Response: No adverse reaction; Nausea unchanged al5 02:19 Drug: morphine IVP or IV 4 mg IVP once over 4 mins Route: IVP; Infused Over: 4 mins; al5 Site: right antecubital; 03:05 Follow up: Response: No adverse reaction; Pain is decreased al5 02:19 Drug: Promethazine IVP 25 mg IVP once {Note: added to patient saline bag per MD.} al5 Route: IVP; Site: right antecubital; 03:05 Follow up: Response: No adverse reaction; Nausea is decreased al5 04:53 Drug: Banana Bag - (Multivitamin IV 1 amp, NS 0.9% IV 1000 ml, Thiamine IV 100 mg, al5 foLIC Acid IVPB 1 mg) IV at 250 ml/hr once Route: IV; Rate: 250 ml/hr; Site: right antecubital; 04:53 Follow up: Response: No adverse reaction; IV Status: Infusion continued upon admission al5 04:53 Drug: Thiamine IV 100 mg IV at per protocol once Route: IV; Rate: per protocol; Site: al5 right antecubital; 04:53 Follow up: Response: No adverse reaction; IV Status: Completed infusion; IV Intake: 1ml al5 Disposition Summary: 01/10/25 03:19 Hospitalization Ordered Notes: Hospitalization Status: Inpatient Admission brian Provider: Zackary Caldwell cha Location: Telemetry/MedSurg (Inpatient) brian Condition: Fair brian Problem: new brian Symptoms: have improved brian Bed/Room Type: Standard [facility] Room Assignment: 211(01/10/25 04:52) sp Diagnosis - Vomiting brian - Epigastric abdominal tenderness brian - Dehydration brian Forms: - Medication Reconciliation Form brian - SBAR form brian - Leadership Thank You Letter brian Signatures: Dispatcher [employer] EDCody Paula MD MD cha Pinkerton, Shawna sp Johnson, Juwairiyah RN RN jj7 Maria Alejandra Fierro RN RN al5 Mechelle Roman RN RN br2 Corrections: (The following items were deleted from the chart) 01: 01:31 BASIC METABOLIC PANEL+C.LAB.BRZ ordered. EDMS EDMS 01 01:31 CBC+H.LAB.BRZ ordered. EDMS EDMS : 01:31 HEPATIC FUNCTION+C.LAB.BRZ ordered. EDMS EDMS : 01:31 MAGNESIUM+C.LAB.BRZ ordered. EDMS EDMS : 01:31 PROBNP+C.LAB.BRZ ordered. EDMS EDMS : 01:31 PROTIME (+INR)+COAG.LAB.BRZ ordered. EDMS EDMS : 01:31 Troponin High Sensitivity+C.LAB.BRZ ordered. EDMS EDMS : 01:31 LIPASE+C.LAB.BRZ ordered. EDMS EDMS : 01:31 Urinalysis+U.LAB.BRZ ordered. EDMS EDMS 01:31 Chest Single View+RAD.RAD.BRZ ordered. EDMS EDMS 04:52 03:19 brian sp
--- NOTE | 2025-01-10 03:19 | ER ---
Nurse's Notes [facility] Name: Tova Ames Age: 54 yrs Sex: Female : 1970 Arrival Date: 01/10/2025 Time: 01:24 Bed 8 Private MD: Diagnosis: Vomiting;Epigastric abdominal tenderness;Dehydration Presentation: 01/10 01:49 Chief complaint: Patient states: NAUSEA/VOMITING SINCE 1630...STATES SHE HAS BEEN br2 BURPING THEN VOMITING. C/O PAIN TO UPPER ABDOMEN AND BACK. Coronavirus screen: Client denies travel out of the [place] in the last 14 days. Ebola Screen: Patient denies exposure to infectious person. Initial Sepsis Screen: Does the patient meet any 2 criteria? No. Patient's initial sepsis screen is negative. Does the patient have a suspected source of infection? No. Patient's initial sepsis screen is negative. Risk Assessment: Do you want to hurt yourself or someone else? Patient reports no desire to harm self or others. Onset of symptoms was January 09, 2025 at 16:30. 01:49 Method Of Arrival: Wheelchair br2 01:49 Acuity: JACKIE 3 br2 Triage Assessment: 01:51 General: Appears uncomfortable, Behavior is anxious. Pain: Complains of pain in right br2 upper quadrant and left upper quadrant Pain radiates to thoracic area, lumbar area, left mid back and right mid back Pain. GI: Pt is actively vomiting bile, Reports upper abdominal pain, nausea, vomiting. 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 - Infectious Disease History:: Denies. - Social history:: Smoking status: Patient/guardian denies using tobacco, Patient/guardian denies using alcohol, street drugs. Screenin:00 [facility] Fall Risk Assessment (Adult) History of falling in the last 3 months, al5 including since admission No falls in past 3 months (0 pts) Confusion or Disorientation No (0 pts) Intoxicated or Sedated No (0 pts) Impaired Gait No (0 pts) Mobility Assist Device Used No (0 pt) Altered Elimination No (0 pt) Score/Fall Risk Level 0 - 2 = Low Risk Oriented to surroundings, Maintained a safe environment, Hourly rounding (assess needs \T\ fall precautionary measures) done. Abuse screen: Denies threats or abuse. Denies injuries from another. Nutritional screening: No deficits noted. Tuberculosis screening: No symptoms or risk factors identified. Assessment: 02:00 General: Appears in no apparent distress. uncomfortable, ill, Behavior is calm, al5 cooperative. Pain: Complains of pain in abdomen. Neuro: Level of Consciousness is awake, alert, obeys commands, Oriented to person, place, time, situation. Cardiovascular: Capillary refill < 3 seconds Patient's skin is warm and dry. Respiratory: Airway is patent Respiratory effort is even, unlabored, Respiratory pattern is regular, symmetrical. GI: Abdomen is flat, non-distended, Reports upper abdominal pain, nausea, vomiting, belching. : No signs and/or symptoms were reported regarding the genitourinary system. EENT: No signs and/or symptoms were reported regarding the EENT system. Derm: Skin is intact, is healthy with good turgor, Skin is pink, warm \T\ dry. normal. Musculoskeletal: No signs and/or symptoms reported regarding the musculoskeletal system. 03:05 Reassessment: Patient appears in no apparent distress at this time. Patient and/or al5 family updated on plan of care and expected duration. Pain level reassessed. Patient is alert, oriented x 3, equal unlabored respirations, skin warm/dry/pink. Patient states feeling better. Patient states symptoms have improved. 04:59 Reassessment: Patient appears in no apparent distress at this time. No changes from al5 previously documented assessment. Patient and/or family updated on plan of care and expected duration. Pain level reassessed. Patient is alert, oriented x 3, equal unlabored respirations, skin warm/dry/pink. Vital Signs: 01:49 BP 160 / 93; Pulse 97; Resp 18; Temp 97.4(TE); Pulse Ox 100% on R/A; Weight 74.84 kg; br2 Height 5 ft. 2 in. ; Pain 7/10; 02:15 BP 153 / 76; Pulse 90; Resp 22; Pulse Ox 99% ; al5 02:30 BP 141 / 82; Pulse 89; Resp 15; Pulse Ox 96% ; al5 03:00 BP 141 / 82; Pulse 83; Resp 16; Temp 97.4(A); Pulse Ox 95% ; al5 03:30 BP 150 / 83; Pulse 89; Resp 19; Pulse Ox 98% ; al5 04:53 BP 148 / 82; Pulse 97; Resp 15; Pulse Ox 98% ; al5 01:49 Body Mass Index 30.18 (74.84 kg, 157.48 cm) br2 01:49 Pain Scale: Adult br2 ED Course: 01:25 Patient arrived in ED. jj6 01:28 Cody Ron MD is Attending Physician. brian 01:49 Javon Luciano RN is Primary Nurse. jj7 01:50 Inserted saline lock: 20 gauge in right antecubital area, using aseptic technique. jj7 Blood collected. Flushed with 10 mL NS. 01:51 Triage completed. br2 01:55 Basic Metabolic Panel Sent. jj7 01:55 CBC with Diff Sent. jj7 01:55 LFT's Sent. jj7 01:55 Magnesium Sent. jj7 01:55 NT PRO-BNP Sent. jj7 01:55 PT-INR Sent. jj7 01:55 Troponin HS Sent. jj7 02:00 No provider procedures requiring assistance completed. al5 02:00 Patient has correct armband on for positive identification. Placed in gown. Bed in low al5 position. Call light in reach. Side rails up X2. Provided Education on: plan of care. 02:30 X-ray completed. Portable x-ray completed in exam room. Patient tolerated procedure mh1 well. 02:31 XRAY Chest (1 view) In Process Unspecified. EDMS 03:16 Zackary Caldwell MD is Hospitalizing Provider. brian 03:39 Patient admitted, IV remains in place. al5 03:57 CT Abd/Pelvis - IV Contrast Only In Process Unspecified. EDMS Administered Medications: 01:54 Drug: NS 0.9% IV 1000 ml IV at 1000 ml once; to be given as a bolus over 60 minutes jj7 Route: IV; Rate: 1000 ml; Site: right antecubital; 04:53 Follow up: Response: No adverse reaction; IV Status: Completed infusion; IV Intake: al5 1000ml 01:54 Drug: Famotidine IVP 20 mg IVP once; dilute with 10 mL 0.9% NaCl; give over 2 minutes jj7 Route: IVP; Site: right antecubital; 02:20 Follow up: Response: No adverse reaction; Pain is unchanged, physician notified al5 01:54 Drug: Ondansetron IVP 8 mg IVP once; over 2 minutes Route: IVP; Site: right antecubital;jj7 02:19 Follow up: Response: No adverse reaction; Nausea unchanged al5 02:19 Drug: morphine IVP or IV 4 mg IVP once over 4 mins Route: IVP; Infused Over: 4 mins; al5 Site: right antecubital; 03:05 Follow up: Response: No adverse reaction; Pain is decreased al5 02:19 Drug: Promethazine IVP 25 mg IVP once {Note: added to patient saline bag per MD.} al5 Route: IVP; Site: right antecubital; 03:05 Follow up: Response: No adverse reaction; Nausea is decreased al5 04:53 Drug: Banana Bag - (Multivitamin IV 1 amp, NS 0.9% IV 1000 ml, Thiamine IV 100 mg, al5 foLIC Acid IVPB 1 mg) IV at 250 ml/hr once Route: IV; Rate: 250 ml/hr; Site: right antecubital; 04:53 Follow up: Response: No adverse reaction; IV Status: Infusion continued upon admission al5 04:53 Drug: Thiamine IV 100 mg IV at per protocol once Route: IV; Rate: per protocol; Site: al5 right antecubital; 04:53 Follow up: Response: No adverse reaction; IV Status: Completed infusion; IV Intake: 1ml al5 Medication: 03:39 VIS not applicable for this client. al5 Intake: 04:53 IV: 1000ml; Total: 1000ml. al5 04:53 IV: 1ml; Total: 1001ml. al5 Outcome: 03:19 Decision to Hospitalize by Provider. brian 05:43 Admitted to Med/surg accompanied by tech, via wheelchair, room 211, with chart, al5 05:43 Condition: stable 05:43 Instructed on the need for admit, 05:44 Patient left the ED. al5 Signatures: Dispatcher [employer] EDCody Paula MD MD cha Harvey, Martha 1 Patrica Alvarenga jj6 Javon Luciano RN RN jj7 Maria Alejandra Fierro RN RN al5 Mechelle Roman RN RN br2 Corrections: (The following items were deleted from the chart) 03:12 03:00 BP 141 / 82; Pulse 83bpm; Resp 16bpm; Temp 95.0F; jj7 al5 03:12 02:15 BP 153 / 76; Pulse 90bpm; Resp 22bpm; Pulse Ox 99%; al5 al5 03:13 03:00 BP 141 / 82; Pulse 83bpm; Resp 16bpm; Pulse Ox 95%; al5 al5 03:13 02:15 BP 153 / 76; Pulse 90bpm; Resp 22bpm; Pulse Ox 99%; Temp 97.4F Axillary; al5 al5
[2025-01-10 03:30] LABS: ALT/SGPT 30 U/L (13-56); AST/SGOT 18 U/L (15-37); Albumin 3.6 g/dL (3.4-5.0); Albumin/Globulin Ratio 0.8 (1.1-1.8); Alkaline Phosphatase 104 U/L (45-117); Anion Gap 9.5 mEq/L (5.0-15.0); BUN Blood Urea Nitrogen 14 mg/dL (7-18); Bicarbonate 29 mEq/L (21-32); Bilirubin Direct 0.2 mg/dL (0-0.2); Bilirubin Indirect, Calculated 0.6 mg/dL (0.2-0.8); Bilirubin Total 0.8 mg/dL (0.2-1.0); Globulin 4.5 g/dL (2.3-3.5); Glomerular Filtration Rate 100 ml/min (=/>90); Glucose Level 240 mg/dL (74-106); Lipase 80 U/L (13-75); Magnesium 1.8 mg/dL (1.6-2.4); NT PRO-BNP 36 pg/mL (<125); Potassium 3.5 mEq/L (3.5-5.1); Protein, Total 8.1 g/dL (6.4-8.2); Sodium Level 134 mEq/L (136-145)
[2025-01-10 03:31] LABS: Troponin High Sensitivity < 3.0 pg/mL (<58.9)
--- NOTE | 2025-01-10 03:36 | RAD REPORT ---
EXAM: XR Chest, 1 View CLINICAL HISTORY: ABDOMINAL DISTENTION TECHNIQUE: Frontal view of the chest. COMPARISON: XR Chest dated 11/25/2022 FINDINGS: Lungs: Unremarkable. No consolidation. Pleural space: Unremarkable. No pneumothorax. Heart: Unremarkable. No cardiomegaly. Mediastinum: Unremarkable. Normal mediastinal contour. Bones/joints: Multilevel spondylosis. No acute fracture. IMPRESSION: No acute disease. Electronically signed by: Yessica Canas MD 01/10/2025 03:15 AM CDT Due to temporary technical issues with the PACS/opinions.h reporting system, reports are being elin d by the in-house radiologist without review as a courtesy to ensure prompt reporting the interpreting radiologist is fully responsible for the content of the report. Transcribed Date/Time: 01/10/2025 3:36 AM
[2025-01-10] MEDS ORDERED: THIAMINE 200 MG/2 ML INJ ONE (04:33)
[2025-01-10] MEDS ORDERED: MULTIVITAMINS 10 ML VIAL (INJ) IV ONE (04:34)
[2025-01-10] MEDS ORDERED: FOLIC ACID 5 MG/ML VIAL ONE (04:34)
[2025-01-10] MEDS ORDERED: ACETAMINOPHEN 325 MG TABLET PO PRN (04:46)
--- NOTE | 2025-01-10 04:46 | P.HP ---
Certification for Inpatient Patient admitted to: Observation With expected LOS: <2 Midnights Practitioner: I am a practitioner with admitting privileges, knowledge of patient current condition, hospital course, and medical plan of care. Services: Services provided to patient in accordance with Admission requirements found in Title 42 Section 412.3 of the Code of Federal Regulations Patient History Date of Service: 01/10/25 Reason for admission: Intractable Nausea and Vomiting History of Present Illness: 54 yrs old Female with past medical history of diabetes, history of sciatica, history of left knee ACL repair and nerve damage brought to ER with nausea and vomiting. Symptoms started yesterday. Patient started having epigastric abdominal pain which radiated to her upper abdomen started insidiously yesterday intermittent colicky type. 3 out of 10 in severity at the time of interview. Worse with movements and food. Associated with nausea and vomiting. Denies any diarrhea. Patient had similar episodes in the past. Patient was assessed in the ER and is admitted for further management of intractable nausea vomiting and abdominal pain Allergies aspirin Allergy (Mild, Verified 08/22/12 13:31) Rash ibuprofen Allergy (Mild, Unverified 08/22/12 13:31) SWELLING Penicillins Allergy (Mild, Verified 08/22/12 13:32) Hives almond Allergy (Intermediate, Uncoded 08/30/12 12:41) Itching/Hives/Rash Home Medications: NK [No Home Meds] 08/22/12 - Past Medical/Surgical History Past Medical History: Reviewed- Non-Contributory -: DM Past Surgical History: Reviewed- Non-Contributory - Family History Family History: Reviewed- Non-Contributory - Social History Smoking Status: Never smoker Review of Systems 10-point ROS is otherwise unremarkable Physical Examination - Vital Signs Temperature: 97.4 F Blood Pressure: 160/92 Pulse: 96 Respirations: 18 Pulse Ox (%): 94 - Physical Exam General: Alert, Oriented x3, Mild distress HEENT: Atraumatic, Normocephalic Neck: Supple Respiratory: Clear to auscultation bilaterally, Normal air movement Cardiovascular: Regular rate/rhythm, Normal S1 S2 Capillary refill: <2 Seconds Gastrointestinal: W/out hepatosplenomegaly, Tenderness Musculoskeletal: No clubbing, No swelling Integumentary: No rashes Neurological: Other (Alert awake nonfocal) Lymphatics: No axilla or inguinal lymphadenopathy - Studies Laboratory Data (last 24 hrs) 01/10/25 01/10/25 01/10/25 01:50 01:50 01:50 WBC 11.00 H Hgb 14.2 Hct 41.7 Plt Count 353 PT 12.2 INR 1.07 Sodium 134 L Potassium 3.5 BUN 14 Creatinine 0.72 Glucose 240 H Magnesium 1.8 Total Bilirubin 0.8 AST 18 ALT 30 Alkaline Phosphatase 104 Lipase 80 H Assessment and Plan - Plan Intractable abdominal pain Intractable nausea and vomiting Pain control Started on IV fluids Will get a CT of the abdomen pelvis Hyponatremia Dehydration IV hydration Monitor renal parameters Electrolytes monitor and replace accordingly Diabetes Insulin sliding scale Accu-Chek before every meal and at bedtime UTI Started on IV antibiotics Will obtain cultures Change antibiotic as per sensitivity GI/DVT prophylaxis Advanced directive full code Discharge Plan: Home Plan to discharge in: 48 Hours - Advance Directives Does patient have a Living Will: No Does patient have a Durable POA for Healthcare: No - Code Status/Comfort Care Code Status: Full Code Time Spent Managing Pts Care (In Minutes): 48
[2025-01-10] MEDS: NA CHLORIDE 0.9% 1,000 ML IV SCH (05:00)
[2025-01-10 05:23] LABS: Urine Bacteria None Seen /HPF (<20); Urine Bilirubin NEGATIVE (Negative); Urine Blood Negative (Negative); Urine Clarity Turbid (Clear); Urine Color Light-Yellow (Yellow); Urine Culture Reflex Order REFLEXED; Urine Glucose 4+ (Negative); Urine Ketones NEGATIVE (Negative); Urine Microscopic Reflex YN ORDER UMIC; Urine Mucus Slight /HPF (None Seen); Urine Nitrite NEGATIVE (Negative); Urine Protein 1+ (Negative); Urine RBC <5 /HPF (None Seen); Urine Urobilinogen Normal (Normal); Urine WBC 20-50 /HPF (<5); Urine pH 6.5 (5.0-7.0)
--- NOTE | 2025-01-10 05:50 | RAD REPORT ---
EXAM DESCRIPTION: Abdomen Pelvis W Contrast RadLex: CT ABDOMEN PELVIS WITH IV CONTRAST CLINICAL HISTORY: 54 years Female; ABD PAIN; IV ONLY Bed Name: 8 TECHNIQUE: CT of the abdomen and pelvis [with] intravenous contrast. All CT scans at this facility use dose modulation, iterative reconstruction, and/or weight based dosi ng when appropriate to reduce radiation dose to as low as reasonably achievable. COMPARISON: None. FINDINGS: Lower thorax: Lung bases are clear Abdomen: Stomach: Small hiatal hernia. Liver: No focal lesions. Enlarged. No intrahepatic ductal distention. Gallbladder: Nondistended Pancreas: Within normal limits Spleen: Within normal limits Right kidney: No hydronephrosis. No focal lesion. Left kidney: No hydronephrosis. No focal lesion. Adrenal glands: Within normal limits Vascular structures: Within normal limits Nodes: No lymphadenopathy by size criteria Pelvis: Small bowel: No significant distention. Appendix: Within normal limits Colon: No distention or acute pericolonic edema. Moderate stool burden. Peritoneum: No free intraperitoneal fluid or air. Bones: No acute bone findings. Bladder: Unremarkable. Reproductive organs: No acute findings. Intrauterine device visualized. IMPRESSION: 1. No acute abdominopelvic findings. 2. Moderate stool burden. 3. Hepatomegaly. Electronically signed by: Adama Candelario MD 01/10/2025 05:40 AM CDT RP TYG Due to temporary technical issues with the PACS/Fave[employer] reporting system, reports are being elin d by the in-house radiologist without review as a courtesy to ensure prompt reporting the interpreting radiologist is fully responsible for the content of the report. Transcribed Date/Time: 01/10/2025 5:50 AM
[2025-01-10 05:55] VITALS: O2SAT 98
[2025-01-10] MEDS ORDERED: MORPHINE 2 MG/ML SYR IV PRN (06:03)
[2025-01-10] MEDS ORDERED: HYDROCODONE/APAP 5/325 MG TAB PO PRN (06:03)
[2025-01-10 06:32] VITALS: BMI 30.2
[2025-01-10] MEDS ORDERED: ONDANSETRON 4 MG/2 ML VIAL IV PRN (08:12)
[2025-01-10] MEDS: CEFTRIAXONE 1,000 MG in NA CHLORIDE 0.9% 50 ML IVPB SCH (09:55)
[2025-01-10] MEDS: FAMOTIDINE 20 MG/2 ML VIAL IV SCH (09:55)
[2025-01-10 12:23] VITALS: TEMP 98.3
[2025-01-10] MEDS ORDERED: SODIUM CHLORIDE 0.9% 10ML INJ IV PRN (13:20)
--- NOTE | 2025-01-10 16:16 | P.DS ---
Admission Date: 01/10/25 Discharge Date: 01/10/25 Disposition: ROUTINE DISCHARGE Reason for Admission: Intractable Nausea and Vomiting Brief History of Present Illness: 54 yrs old Female with past medical history of diabetes, history of sciatica, history of left knee ACL repair and nerve damage brought to ER with nausea and vomiting of 1 day duration. Patient reports a history of intermittent epigastric pain worse with food. She has been previously diagnosed with H. pylori infection. Patient was assessed in the ER and is admitted for further management of intractable nausea vomiting and abdominal pain. Hospital Course: Diagnosis Intractable nausea and vomiting Epigastric pain History of H. pylori infection. UTI Hyponatremia Patient was placed on observation on the medical floor, treated supportively with IV fluid. Urine analysis showed mild evidence of UTI. Patient was treated with IV Rocephin. Her nausea and vomiting resolved. Patient tolerated diet. Given her previous history of H. pylori infection, and epigastric pain worse with meals, patient symptoms probably related to gastritis versus gastric ulcer. She is prescribed sucralfate and her home Protonix dose increased to 40 mg twice a day. Patient advised to follow-up with gastroenterology as soon as possible for EGD and repeat biopsy. Overall patient's symptoms significantly improved, vitals are stable, patient tolerated diet. She is deemed stable for discharge. Vital Signs/Physical Exam: Temp Pulse Resp BP Pulse Ox 98.3 F 83 18 124/70 97 01/10/25 12:00 01/10/25 12:00 01/10/25 12:00 01/10/25 12:00 01/10/25 12:00 General: Alert, In no apparent distress, Oriented x3 HEENT: Mucous membr. moist/pink, Sclerae nonicteric Neck: Supple, JVD not distended Respiratory: Clear to auscultation bilaterally, Normal air movement Cardiovascular: No edema, Regular rate/rhythm, Normal S1 S2 Gastrointestinal: Normal bowel sounds, Soft and benign, Non-distended, No tenderness Musculoskeletal: No swelling Neurological: Normal speech, Normal strength at 5/5 x4 extr Laboratory Data at Discharge: WBC 11.00 thou/uL (4.3-10.9) H 01/10/25 01:50 Hgb 14.2 g/dL (12.0-15.0) 01/10/25 01:50 Hct 41.7 % (36.0-45.0) 01/10/25 01:50 Plt Count 353 thou/uL (152-406) 01/10/25 01:50 PT 12.2 SECONDS (10-13.0) 01/10/25 01:50 INR 1.07 01/10/25 01:50 Sodium 134 mEq/L (136-145) L 01/10/25 01:50 Potassium 3.5 mEq/L (3.5-5.1) 01/10/25 01:50 BUN 14 mg/dL (7-18) 01/10/25 01:50 Creatinine 0.72 mg/dL (0.55-1.02) 01/10/25 01:50 Glucose 240 mg/dL (74-106) H 01/10/25 01:50 Magnesium 1.8 mg/dL (1.6-2.4) 01/10/25 01:50 Total Bilirubin 0.8 mg/dL (0.2-1.0) 01/10/25 01:50 AST 18 U/L (15-37) 01/10/25 01:50 ALT 30 U/L (13-56) 01/10/25 01:50 Alkaline Phosphatase 104 U/L (45-117) 01/10/25 01:50 Lipase 80 U/L (13-75) H 01/10/25 01:50 Home Medications: Celecoxib [Celebrex] 400 mg PO Q8HR PRN 01/10/25 Dapagliflozin Propanediol [Farxiga] 10 mg PO DAILY 01/10/25 Glimepiride 4 mg PO DAILYPRN PRN 01/10/25 Pantoprazole Sodium [Protonix] 40 mg PO BID #60 tab 01/10/25 Sucralfate [Carafate] 1 gm PO AC #90 tab 01/10/25 clonazePAM [Clonazepam] 0.5 mg PO Q8H PRN 01/10/25 New Medications: Sucralfate [Carafate] 1 gm PO AC #90 tab Pantoprazole Sodium [Protonix] 40 mg PO BID #60 tab Physician Discharge Instructions: Patient hospitalized for intractable nausea and vomiting. She gave a prior history of H. pylori. Patient also reports history of intermittent nausea and vomiting and constipation. Patient symptoms could be secondary to flare of prior gastritis versus gastric ulcer. Noted she takes Protonix daily, dose increased to Protonix 40 mg twice daily and sucralfate added for gastritis. Patient advised to follow-up with GI for repeat endoscopy. Referral to Dr. Agarwal requested. Patient advised to stool softener for constipation prophylaxis. Diet: AHA Activity: Ad nola Followup: John Agarwal MD [ACTIVE - CAN ADMIT] - 1-2 Weeks Arnaldo Parks FNP [Primary Care Provider] - 1-2 Weeks Time spent managing pt's care (in minutes): 27
[2025-01-10 16:57] VITALS: BP 119/64
[2025-01-10] MEDS ORDERED: SUCRALFATE 1GM/10ML UCUP PO SCH (17:00)
[2025-01-10] MEDS ORDERED: PANTOPRAZOLE 40 MG INJ IVP SCH (21:00)
--- NOTE | 2025-01-11 11:31 | EKG ---
Test Date: 2025-01-10 Test Time: 01:53:53 Gear Hobber Set Up Operator: MEASUREMENT RESULTS: Intervals: Rate: 94 MO: 134 QRSD: 94 QT: 378 QTc: 472 Stanley: P: 56 MO: 134 QRS: 1 T: 28 INTERPRETIVE STATEMENTS: Normal sinus rhythm Possible Anterior infarct, age undetermined Abnormal ECG Compared to ECG 11/25/2022 18:36:50 Myocardial infarct finding now present Electronically Signed On 01-11-25 11:29:03 CDT by Rakesh Marrufo
== END 2025-01-10 17:15 | disposition home or self-care (01) ==
LOC: ER 01:24 → 2ND 04:46
PROVIDERS: ADMIT Family Medicine; ATTEND Internal Medicine
DX: R11.2 Nausea with vomiting, unspecified (principal); R10.9 Unspecified abdominal pain; N39.0 Urinary tract infection, site not specified; E11.9 Type 2 diabetes mellitus without complications; M54.30 Sciatica, unspecified side; E87.1 Hypo-osmolality and hyponatremia; E86.0 Dehydration; Z88.0 Allergy status to penicillin; Z88.5 Allergy status to narcotic agent
CPT/HCPCS: 87088; 85025; 81001; 87086; 80048; 36415; 83735; 85610; 80076; 84484; 83690; 83880; 74177; 71045; Q9967; J2550; J3411; J2405; J7030 ×2; J0696; 93005; G0378

== ENCOUNTER 2025-07-05 20:39 | Emergency (ER) | payer OTHER ==
--- OUTSIDE RECORDS SUMMARY | 2025-07-05 20:56 | XMS REPORT | Continuity of Care Document ---
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 00:00: 00 Yes 1mg Óscar Zavala glimepiride 4 mg tablet 0 05-03 00:00: 00 Yes 1mg Óscar Zavala Actos 15 mg tablet 0 04-21 00:00: [...] Óscar Zavala Singulair 10 mg tablet 0 04-06 00:00: 00 No 1mg Singulair 10 mg tablet 0 04-06 00:00: 00 No 1mg Singulair 10 mg tablet 0 04-06 00:00: 00 No 1mg Singulair 10 mg tablet 0 04-06 00:00: 00 Yes 1mg Óscar Zavala cyclobenzap rine 10 mg tablet 0 03-26 00:00: 00 No 1mg cyclobenzap rine 10 mg tablet 0 03-26 00:00: 00 No 1mg cyclobenzap rine 10 mg tablet 0 03-26 00:00: 00 No 1mg cyclobenzap rine 10 mg tablet 0 03-26 00:00: 00 Yes 1mg Óscar Zavala metronidazo le 500 mg tablet 2- 00:00: 00 No 1mg metronidazo le 500 mg tablet 2- 00:00: 00 No 1mg metronidazo le 500 mg tablet 2- 00:00: 00 No 1mg metronidazo le 500 mg tablet 2 00:00: 00 Yes 1mg Óscar Zavala gabapentin [...] Óscar Zavala gabapentin 400 mg capsule 2018-10 0 00:00: 00 No 1mg gabapentin 400 mg capsule 2018-10 0 00:00: 00 No 1mg gabapentin 400 mg capsule 2018-10 0 00:00: 00 No 1mg gabapentin 400 mg capsule 2018-10 0 00:00: 00 Yes 1mg Óscar Zavala gabapentin 300 mg capsule 04-30 00:00: 00 No 1mg gabapentin 300 mg capsule 04-30 00:00: 00 No 1mg gabapentin 300 mg capsule 04-30 00:00: 00 No 1mg gabapentin 300 mg capsule 04-30 00:00: 00 Yes 1mg Óscar Zavala methocarbam ol (ROBAXIN) 500 mg tablet 14 00:00: 00 11-28 00:00 :00 No [id number] 500mg Take 1 tablet by mouth 3 (three) times daily as needed for Pain (scale 4-6). [facility] traMADOL 50 mg tablet 3-14 00:00: 00 09-16 00:00 :00 No [id number] 50mg Take 1 tablet by mouth every 8 (eight) hours as needed for Pain (scale 4-6). [facility] naproxen 250 mg tablet 10-11 00:00: 00 Yes 250mg Take 1 tablet by mouth 2 (two) times daily with meals. [facility] traMADOL (ULTRAM) 50 mg tablet 10-11 00:00: 09-16 00:00 :00 No 50mg Take 1 tablet by mouth every 6 (six) hours as needed for Pain (scale 4-6). [facility] cyclobenzap rine 5 mg tablet 10-11 00:00: 00 09-26 00:00 :00 No 5mg Take 1 tablet by mouth 3 (three) times daily. [facility] Fluticasone Propionate 50 MCG/ACT Fluticasone Propionate 50 [...] tablet 12-13 00:00: 00 Yes 1mg Óscar Rose Lucas amitriptyli ne 50 mg tablet 12-13 00:00: [...] mg tablet 06-01 00:00: 00 Yes 1mg sÓcar Zavala metoclopram zeb 5 mg tablet 05-24 [...] as needed for Nausea and Vomiting (N/V). [facility] ranitidine (ZANTAC) 150 mg tablet 05-20 00:00: 00 09-26 00:00 :00 No 150mg Take 1 tablet by mouth 2 (two) times daily. [facility] cyclobenzap rine 5 mg tablet [...] 12-25 23:42: 52 Yes Take by mouth. [facility] INSULIN REGULAR HUMAN SC 12-25 23:42: 52 Yes inject under the skin. [facility] gabapentin (NEURONTIN) 300 mg capsule 12-25 23:42: 52 Yes 300mg Take 300 mg by mouth 3 (three) times daily. [facility] METFORMIN HCL (METFORMIN ORAL) 12-25 18:42: 52 Yes Take by mouth. [facility] INSULIN REGULAR HUMAN SC 12-25 18:42: 52 Yes inject under the skin. [facility] gabapentin (NEURONTIN) 300 mg capsule 12-25 18:42: 52 Yes 300mg Take 300 mg by mouth 3 (three) times daily. [facility] cyclobenzap rine 5 mg tablet [...] Morgan 2 gummies [facility] Amitriptyli ne HCl Amitriptyli [...] Value Comments S ource Systolic blood pressure 2025-03-07 09:00:00 138 mm[Hg] [facility] Diastolic blood pressure 2025-03-07 09:00:00 63 mm[Hg] [facility] Heart rate 2025-03-07 09:00:00 73 /min [facility] Body temperature 2025-03-07 09:00:00 36.5 [place] [facility] Respiratory rate 2025-03-07 09:00:00 14 /min [facility] Oxygen saturation in Arterial blood by Pulse oximetry 2025-03-07 09:00:00 94 /min [facility] Body height 2025-03-07 06:50:00 157.5 cm [facility] Body weight 2025-03-07 06:50:00 74.39 kg [facility] BMI 2025-03-07 06:50:00 30.00 kg/m2 [facility] Body temperature 2024-10-13 04:38:36 37 [place] [facility] Systolic blood pressure 2024-10-13 04:38:00 115 mm[Hg] [facility] Diastolic blood pressure 2024-10-13 04:38:00 57 mm[Hg] [facility] Heart rate 2024-10-13 04:38:00 80 /min [facility] Respiratory rate 2024-10-13 04:38:00 18 /min [facility] Oxygen saturation in Arterial blood by Pulse oximetry 2024-10-13 04:38:00 98 /min [facility] Body height 2024-10-13 01:51:00 157.5 cm [facility] weight 2024-10-13 01:51:00 74.39 kg [facility] BMI 2024-10-13 01:51:00 30.00 kg/m2 [facility] Systolic blood pressure 2023-10-14 15:33:00 124 mm[Hg] Shelby Seybo ld - External Diastolic blood pressure 2023-10-14 15:33:00 70 mm[Hg] Shelby Seybo ld - External Heart rate 2023-10-14 14:52:00 88 /min Charlie y Seybold - External Body temperature 2023-10-14 14:52:00 36.39 [place] Shelby Seybold - External Respiratory rate 2023-10-14 14:52:00 20 /min Shelby Ferrariybold - External Body height 2023-10-14 14:52:00 157.5 cm Fauzia ey Seybold - External Body weight 2023-10-14 14:52:00 77.565 kg Fauzia ey Seybold - External BMI 2023-10-14 14:52:00 31.28 kg/m2 Fauzia ey Seybold - External Oxygen saturation in Arterial blood by Pulse oximetry 2023-10-14 14:52:00 99 /min Shelby Ferrariybo ld - External Systolic blood pressure 2023-02-08 13:34:00 163 mm[Hg] [facility] Diastolic blood pressure 2023-02-08 13:34:00 85 mm[Hg] [facility] Heart rate 2023-02-08 13:34:00 88 /min [facility] Body temperature 2023-02-08 13:34:00 37.39 [place] [facility] Respiratory rate 2023-02-08 13:34:00 16 /min [facility] Body height 2023-02-08 13:34:00 157.5 cm [facility] Body weight 2023-02-08 13:34:00 73.936 kg [facility] BMI 2023-02-08 13:34:00 29.81 kg/m2 [facility] Oxygen saturation in Arterial blood by Pulse oximetry 2023-02-08 13:34:00 99 /min [facility] Systolic blood pressure 2022-11-28 22:30:00 107 mm[Hg] [facility] Diastolic blood pressure 2022-11-28 22:30:00 74 mm[Hg] [facility] Heart rate 2022-11-28 22:30:00 99 /min [facility] Body temperature 2022-11-28 22:30:00 37.11 [place] [facility] Respiratory rate 2022-11-28 22:30:00 18 /min [facility] Body height 2022-11-28 22:30:00 157.5 cm [facility] Body weight 2022-11-28 22:30:00 73.483 kg [facility] BMI 2022-11-28 22:30:00 29.63 kg/m2 [facility] Oxygen saturation in Arterial blood by Pulse oximetry 2022-11-28 22:30:00 98 /min [facility] Systolic blood pressure 2022-09-16 20:56:00 144 mm[Hg] [facility] Diastolic blood pressure 2022-09-16 20:56:00 80 mm[Hg] [facility] Heart rate 2022-09-16 20:56:00 83 /min [facility] Body temperature 2022-09-16 20:56:00 37.11 [place] [facility] Respiratory rate 2022-09-16 20:56:00 20 /min [facility] Oxygen saturation in Arterial blood by Pulse oximetry 2022-09-16 20:56:00 97 /min [facility] Systolic blood pressure 2022-06-26 02:00:00 129 mm[Hg] [facility] Diastolic blood pressure 2022-06-26 02:00:00 71 mm[Hg] [facility] Heart rate 2022-06-26 02:00:00 60 /min [facility] Respiratory rate 2022-06-26 02:00:00 18 /min [facility] Oxygen saturation in Arterial blood by Pulse oximetry 2022-06-26 02:00:00 98 /min [facility] Body temperature 2022-06-26 01:13:00 36.78 [place] [facility] Body height 2022-06-26 01:13:00 157.5 cm [facility] Body weight 2022-06-26 01:13:00 71.668 kg [facility] BMI 2022-06-26 01:13:00 28.90 kg/m2 [facility] Systolic blood pressure 2021-12-07 06:15:00 134 mm[Hg] [facility] Diastolic blood pressure 2021-12-07 06:15:00 72 mm[Hg] [facility] Heart rate 2021-12-07 06:15:00 73 /min [facility] Respiratory rate 2021-12-07 06:15:00 16 /min [facility] Oxygen saturation in Arterial blood by Pulse oximetry 2021-12-07 06:15:00 100 /min [facility] Body temperature 2021-12-07 03:30:00 36.94 [place] [facility] Body height 2021-12-07 03:30:00 157.5 cm [facility] Body weight 2021-12-07 03:30:00 70.308 kg [facility] BMI 2021-12-07 03:30:00 28.35 kg/m2 [facility] Heart rate 2021-03-05 22:21:00 76 /min [facility] Body temperature 2021-03-05 22:21:00 37.17 [place] [facility] Respiratory rate 2021-03-05 22:21:00 16 /min [facility] Body height 2021-03-05 22:21:00 154.9 cm [facility] Body weight 2021-03-05 22:21:00 76.204 kg [facility] BMI 2021-03-05 22:21:00 31.74 kg/m2 [facility] Oxygen saturation in Arterial blood by Pulse oximetry 2021-03-05 22:21:00 97 /min [facility] Systolic blood pressure 2020-12-17 17:14:00 136 mm[Hg] [facility] Diastolic blood pressure 2020-12-17 17:14:00 75 mm[Hg] [facility] Heart rate 2020-12-17 17:14:00 92 /min [facility] Body temperature 2020-12-17 17:14:00 36.61 [place] [facility] Respiratory rate 2020-12-17 17:14:00 20 /min [facility] Body weight 2020-12-17 17:14:00 77.111 kg [facility] BMI 2020-12-17 17:14:00 31.09 kg/m2 [facility] Oxygen saturation in Arterial blood by Pulse oximetry 2020-12-17 17:14:00 95 /min [facility] Systolic blood pressure 2020-10-30 14:30:00 156 mm[Hg] [facility] Diastolic blood pressure 2020-10-30 14:30:00 80 mm[Hg] [facility] Heart rate 2020-10-30 14:30:00 99 /min [facility] Respiratory rate 2020-10-30 14:30:00 20 /min [facility] Oxygen saturation in Arterial blood by Pulse oximetry 2020-10-30 14:30:00 100 /min [facility] Body temperature 2020-10-30 12:32:00 37.56 [place] [facility] Body height 2020-10-30 12:32:00 157.5 cm [facility] Body weight 2020-10-30 12:32:00 77.111 kg [facility] BMI 2020-10-30 12:32:00 31.09 kg/m2 [facility] Systolic blood pressure 2020-09-27 01:05:00 152 mm[Hg] [facility] Diastolic blood pressure 2020-09-27 01:05:00 89 mm[Hg] [facility] Heart rate 2020-09-27 01:05:00 90 /min [facility] Respiratory rate 2020-09-27 01:05:00 16 /min [facility] Oxygen saturation in Arterial blood by Pulse oximetry 2020-09-27 01:05:00 99 /min [facility] Body temperature 2020-09-26 21:20:00 37.28 [place] [facility] Body height 2020-09-26 21:20:00 157.5 cm [facility] Body weight 2020-09-26 21:20:00 74.844 kg [facility] BMI 2020-09-26 21:20:00 30.18 kg/m2 [facility] Systolic blood pressure 2020-09-02 02:30:00 125 mm[Hg] [facility] Diastolic blood pressure 2020-09-02 02:30:00 66 mm[Hg] [facility] Heart rate 2020-09-02 02:30:00 106 /min [facility] Respiratory rate 2020-09-02 02:30:00 18 /min [facility] Oxygen saturation in Arterial blood by Pulse oximetry 2020-09-02 02:30:00 97 /min [facility] Body temperature 2020-09-02 00:02:31 38.5 [place] [facility] Body height 2020-09-01 22:28:00 154.9 cm [facility] Body weight 2020-09-01 22:28:00 74.39 kg [facility] BMI 2020-09-01 22:28:00 30.99 kg/m2 [facility] Oxygen saturation in Arterial blood by Pulse oximetry 2020-07-26 04:45:00 95 /min [facility] Systolic blood pressure 2020-07-26 04:45:00 132 mm[Hg] [facility] Diastolic blood pressure 2020-07-26 04:45:00 77 mm[Hg] [facility] Heart rate 2020-07-26 04:45:00 92 /min [facility] Respiratory rate 2020-07-26 03:00:00 20 /min [facility] Body temperature 2020-07-26 01:24:00 37.72 [place] [facility] Body height 2020-07-26 01:24:00 154.9 cm [facility] Body weight 2020-07-26 01:24:00 77.111 kg [facility] BMI 2020-07-26 01:24:00 32.12 kg/m2 [facility] BP Systolic 2024-02-13 16:33:00 135 [...] BP Diastolic 2022-07-02 16:38:00 83 mm[Hg] Joseph Zavala Weight Measured 2022-07-02 16:38:00 165.80 pounds Óscar Rose Zavala Height Measured 2022-07-02 16:38:00 62.50 inches Óscar Rose Zavala Body Temperature 2022-07-02 16:38:00 98.10 degrees Óscar Rose Zavala Heart Rate 2022-07-02 16:38:00 74.00 /min Anna en Rose Zavala Respiratory Rate 2022-07-02 16:38:00 17.00 /min Óscar Zavala BP Systolic 2022-06-05 08:31:00 124 mm[Hg] BP [...] Date / Time Performed Performing Clinician Source CT ABDOMEN PELVIS WO CONTRAST 2025-03-07 07:48:13 Carie Chanel [facility] COMP. METABOLIC PANEL ([id number]) 2025-03-07 07:27:00 Carie Chanel [facility] CBC WITH DIFF 2025-03-07 07:27:00 Carie Cahnel [facility] URINALYSIS 2025-03-07 07:27:00 Carie Chanel [facility] Fungal Culture Skin/Hair/Nails w/Smear 2024-11-11 00:00:00 [facility] RAPID STREP SCREEN FOR GROUP A 2024-10-13 02:36:00 Sarmad Rashid [facility] INFLUENZA A/B RSV COVID NAAT 2024-10-13 02:36:00 Sarmad Rashid [facility] AUTHORIZATION FOR RELEASE OF PHI 2023-04-26 05:01:00 Doctor Unassigned, [place] [facility] AUTHORIZATION FOR RELEASE OF PHI 2023-04-17 05:01:00 Doctor Unassigned, [place] [facility] XR KNEE 3 VW LEFT 2023-02-08 15:25:16 Maricarmen Talavera [facility] CONSENT/REFUSAL FOR DIAGNOSIS AND TREATMENT 2023-02-08 13:25:51 Doctor Unassigned, [place] [facility] XR HIPS 3 VW LEFT 2022-11-28 23:35:00 John Maharaj [facility] CONSENT/REFUSAL FOR DIAGNOSIS AND TREATMENT 2022-11-28 22:22:03 Doctor Unassigned, [place] [facility] LIPASE 2022-09-16 23:46:00 Dannielle Arechiga [facility] TEST, SERUM 2022-09-16 23:46:00 Johnathon Arechiga [facility] COMP. METABOLIC PANEL ([id number]) 2022-09-16 23:46:00 Dannielle Arechiga [facility] CBC WITH DIFF 2022-09-16 23:46:00 Dannielle Arechiga [facility] URINALYSIS 2022-09-16 22:26:00 Dannielle Arechiga [facility] CONSENT/REFUSAL FOR DIAGNOSIS AND TREATMENT 2022-09-16 20:45:39 Doctor Unassigned, [place] [facility] XR CHEST 2 VW 2022-06-26 02:03:35 [facility] X[facility] FOOT 3+ VW BILATERAL 2022-06-26 02:03:35 Tyshawn Nicholson [facility] COMP. METABOLIC PANEL ([id number]) 2022-06-26 01:33:00 Ebenezer Nicholson [facility] CBC WITH DIFF 2022-06-26 01:33:00 [facility]enezer [facility] URINALYSIS 2022-06-26 01:33:00 Ebenezer Nicholson [facility] N-TERMINAL PRO-BNP 2022-06-26 01:33:00 Ebenezer Nicholson [facility] CONSENT/REFUSAL FOR DIAGNOSIS AND TREATMENT 2022-06-26 01:04:33 Doctor Unassigned, [place] [facility] CONSENT/REFUSAL FOR DIAGNOSIS AND TREATMENT 2022-04-10 03:01:56 Doctor Unassigned, [place] [facility] POCT GLUCOSE (AUTOMATED) 2021-12-07 06:58:00 Eladio Monsivais [facility] CT MAXILLOFACIAL/MANDIBLE WO CONTRAST 2021-12-07 05:31:00 Eladio Monsivais [facility] CT HEAD WO CONTRAST 2021-12-07 05:31:00 Eladio Monsivais [facility] XR CHEST 1 VW 2021-12-07 05:28:00 Eladio Monsivais [facility] XR HAND 3+ VW LEFT 2021-12-07 05:28:00 Eladio Monsivais [facility] POCT GLUCOSE (AUTOMATED) 2021-12-07 04:51:00 Eladio Monsivais [facility] URINALYSIS 2021-12-07 04:06:00 Eladio Monsivais [facility] TROPONIN I 2021-12-07 03:58:00 Eladio Monsivais [facility] COMP. METABOLIC PANEL ([id number]) 2021-12-07 03:58:00 Eladio Monsivais [facility] CBC WITH DIFF 2021-12-07 03:58:00 Eladio Monsivais [facility] PROTHROMBIN TIME / INR 2021-12-07 03:58:00 Júnior Monsivais [facility] NOTICE OF PRIVACY PRACTICES 2021-12-07 03:20:07 Doctor Unassigned, [place] [facility] CONSENT/REFUSAL FOR DIAGNOSIS AND TREATMENT 2021-12-07 03:18:34 Doctor Unassigned, [place] [facility] XR ANKLE 3+ VW LEFT 2021-03-05 22:58:39 Vonnie Nathan [facility] CONSENT/REFUSAL FOR DIAGNOSIS AND TREATMENT 2021-03-05 22:02:12 Doctor Unassigned, [place] [facility] XR ABDOMEN ACUTE SERIES 2020-12-17 18:13:15 Do deanne Jeffery [facility] LIPASE 2020-12-17 17:46:00 Hermilo Jeffery [facility] HEPATIC FUNCTION PANEL ([id number]) (ALB,T.PRO,BILI T,BU/BC,ALT,AST,ALK PHOS) 2020-12-17 17:46:00 Hermilo Jeffery [facility] BASIC METABOLIC PANEL (NA, K, CL, CO2, GLUCOSE, BUN, CREATININE, CA) 2020-12-17 17:46:00 Hermilo Jeffery [facility] CBC WITH DIFF 2020-12-17 17:46:00 Hermilo Jeffery [facility] PROTHROMBIN TIME / INR 2020-12-17 17:46:00 Galindo Jeffery [facility] ACTIVATED PARTIAL THRMPLAS RUBIO 2020-12-17 17:46:00 Hermilo Jeffery [facility] URINALYSIS 2020-12-17 17:46:00 Hermilo Jeffery [facility] COVID-19 (ID NOW RAPID TESTING) 2020-12-17 17:46:00 Hermilo Jeffery [facility] NOTICE OF PRIVACY PRACTICES 2020-12-17 17:07:59 Doctor Unassigned, [place] [facility] CONSENT/REFUSAL FOR DIAGNOSIS AND TREATMENT 2020-12-17 17:07:25 Doctor Unassigned, [place] [facility] CT CHEST PULMONARY ANGIOGRAM 2020-10-30 14:24:45 John Maharaj [facility] POCT TEST 2020-10-30 14:14:00 Truong Maharaj [facility] XR CHEST 1 VW 2020-10-30 13:04:14 Kt Ratliff [facility] TEST, SERUM 2020-10-30 12:49:00 Faisal Ratliff [facility] TROPONIN I 2020-10-30 12:49:00 Kt Ratliff [facility] HEPATIC FUNCTION PANEL ([id number]) (ALB,T.PRO,BILI T,BU/BC,ALT,AST,ALK PHOS) 2020-10-30 12:49:00 Kt Ratliff [facility] BASIC METABOLIC PANEL (NA, K, CL, CO2, GLUCOSE, BUN, CREATININE, CA) 2020-10-30 12:49:00 Kt Ratliff [facility] CBC WITH DIFF 2020-10-30 12:49:00 Kt Ratliff [facility] PROTHROMBIN TIME / INR 2020-10-30 12:49:00 Sukumar Ratliff [facility] D-DIMER 2020-10-30 12:49:00 Kt Ratliff [facility] ACTIVATED PARTIAL THRMPLAS RUBIO 2020-10-30 12:49:00 Kt Ratliff [facility] RAPID STREP SCREEN FOR GROUP A 2020-10-30 12:49:00 Kt Ratliff [facility] ADC,CLC OR [facility] ONLY - INFLUENZA A & B DIRECT ANTIGEN 2020-10-30 12:49:00 Kt Ratliff [facility] COVID-19 (ID NOW RAPID TESTING) 2020-10-30 12:49:00 tK Ratliff [facility] NOTICE OF PRIVACY PRACTICES 2020-10-30 12:21:16 Doctor Unassigned, [place] [facility] CONSENT/REFUSAL FOR DIAGNOSIS AND TREATMENT 2020-10-30 12:21:04 Doctor Unassigned, [place] [facility] URINALYSIS 2020-09-26 22:51:00 Carie Chanel [facility] XR CHEST 1 VW 2020-09-26 22:03:02 Carie Chanel [facility] LIPASE 2020-09-26 21:51:00 Carie Chanel [facility] TROPONIN I 2020-09-26 21:51:00 Carie Chanel [facility] COMP. METABOLIC PANEL ([id number]) 2020-09-26 21:51:00 Carie Chanel [facility] CBC WITH DIFF 2020-09-26 21:51:00 Carie Chanel [facility] N-TERMINAL PRO-BNP 2020-09-26 21:51:00 Carie Chanel [facility] CONSENT/REFUSAL FOR DIAGNOSIS AND TREATMENT 2020-09-26 21:08:31 Doctor Unassigned, [place] [facility] CT CHEST PULMONARY ANGIOGRAM 2020-09-02 02:01:09 Luisito Chavis [facility] D-DIMER 2020-09-02 00:29:00 Luisito Chavis [facility] XR CHEST 1 VW 2020-09-01 23:08:31 Luisito Chavis [facility] POCT TEST 2020-09-01 22:52:00 Luisito Chavis [facility] BLOOD CULTURE SCREEN 2020-09-01 22:47:00 Luisito Chavis [facility] COMP. METABOLIC PANEL ([id number]) 2020-09-01 22:47:00 Luisito Chavis [facility] CBC WITH DIFF 2020-09-01 22:47:00 Luisito Chavis [facility] URINALYSIS 2020-09-01 22:47:00 Luisito Chavis [facility] ADC,CLC OR [facility] ONLY - INFLUENZA A & B DIRECT ANTIGEN 2020-09-01 22:47:00 Luisito Chavis [facility] N-TERMINAL PRO-BNP 2020-09-01 22:47:00 Luisito Chavis [facility] LACTIC ACID WHOLE BLOOD 2020-09-01 22:47:00 Me hussein Chavis [facility] COVID-19 (ID NOW RAPID TESTING) 2020-09-01 22:47:00 Luisito Chavis [facility] NOTICE OF PRIVACY PRACTICES 2020-09-01 22:31:34 Doctor Unassigned, [place] [facility] CONSENT/REFUSAL FOR DIAGNOSIS AND TREATMENT 2020-09-01 22:18:34 Doctor Unassigned, [place] [facility] CT ABDOMEN PELVIS W CONTRAST 2020-07-26 04:10:32 Yolanda Bass [facility] LIPASE 2020-07-26 02:16:00 Yolanda Bass [facility] COMP. METABOLIC PANEL (13794) 2020-07-26 02:16:00 Yolanda Bass [facility] CBC WITH DIFF 2020-07-26 02:16:00 [facility] 2020-07-26 02:16:00 Yolanda Bass [facility] EKG-12 LEAD 2020-07-26 02:00:35 Yolanda Bass [facility] NOTICE OF PRIVACY PRACTICES 2020-07-26 00:35:41 Doctor Unassigned, [place] [facility] CONSENT/REFUSAL FOR DIAGNOSIS AND TREATMENT 2020-07-26 00:35:21 Doctor Unassigned, [place] [facility] REFERRAL- REQUEST/RESPONSE 2020-07-05 05:01:00 Doctor Unassigned, [place] [facility] Plan of Care Planned Activity Planned Date Details Comments Source Goal Plan of Care Note [code = 54128-6] Goal Plan of Care Note [code = 14917-4] Goal Plan of Care Note [code = 20727-7] Goal Plan of Care Note [code = 55778-3] Goal Plan of Care Note [code = 74738-7] Goal Plan of Care Note [code = 75737-1] Goal Plan of Care Note [code = 27014-4] Goal Plan of Care Note [code = 92841-3] Goal Plan of Care Note [code = 84304-2] Goal Plan of Care Note [code = 02884-0] Goal Plan of Care Note [code = 76462-0] Goal Plan of Care Note [code = 18383-3] Goal Plan of Care Note [code = 80858-3] Goal Plan of Care Note [code = 06958-7] Goal Plan of Care Note [code = 35604-9] Goal Plan of Care Note [code = 52004-4] Goal Plan of Care Note [code = 40789-6] Goal Plan of Care Note [code = 00709-5] Goal Plan of Care Note [code = 93144-9] Goal Plan of Care Note [code = 82091-0] Goal Plan of Care Note [code = 11109-7] Goal Plan of Care Note [code = 53982-8] Goal Plan of Care Note [code = 22900-5] Goal Plan of Care Note [code = 76191-1] Goal Plan of Care Note [code = 15027-8] Goal Plan of Care Note [code = 11263-7] Goal Plan of Care Note [code = 68240-1] Goal Plan of Care Note [code = 37072-8] Goal Plan of Care Note [code = 22391-5] Goal Plan of Care Note [code = 12612-9] Goal Plan of Care Note [code = 29368-9] Goal Plan of Care Note [code = 32066-9] Goal Plan of Care Note [code = 32874-1] Goal Plan of Care Note [code = 15541-8] Goal Plan of Care Note [code = 03030-3] Goal Plan of Care Note [code = 55851-5] Goal Plan of Care Note [code = 02432-3] Goal Plan of Care Note [code = 84232-2] Goal Plan of Care Note [code = 10370-2] Goal Plan of Care Note [code = 18326-5] Goal Plan of Care Note [code = 84251-2] Goal Plan of Care Note [code = 56238-9] Goal Plan of Care Note [code = 62683-1] Goal Plan of Care Note [code = 23881-8] Goal Plan of Care Note [code = 56003-4] Goal Plan of Care Note [code = 79864-4] Goal Plan of Care Note [code = 30984-8] Goal Plan of Care Note [code = 41123-1] Goal Plan of Care Note [code = 77844-4] Goal Plan of Care Note [code = 21928-7] Goal Plan of Care Note [code = 91529-2] Goal Plan of Care Note [code = 62070-4] Goal Plan of Care Note [code = 08274-5] Goal Plan of Care Note [code = 85693-2] Goal Plan of Care Note [code = 10250-2] Goal Plan of Care Note [code = 01269-8] Goal Plan of Care Note [code = 43320-7] Goal Plan of Care Note [code = 08186-2] Goal Plan of Care Note [code = 76013-2] Goal Plan of Care Note [code = 98849-6] Goal Plan of Care Note [code = 09950-6] Goal Plan of Care Note [code = 12679-7] Goal Plan of Care Note [code = 69413-4] Goal Plan of Care Note [code = 38827-5] Goal Plan of Care Note [code = 66376-4] Goal Plan of Care Note [code = 18863-5] Goal Plan of Care Note [code = 91907-6] Goal Plan of Care Note [code = 49829-8] Goal Plan of Care Note [code = 69098-8] Goal Plan of Care Note [code = 82302-0] Goal Plan of Care Note [code = 16513-0] Goal Plan of Care Note [code = 39802-8] Goal Plan of Care Note [code = 74347-4] Goal Plan of Care Note [code = 70485-4] Goal Plan of Care Note [code = 65816-6] Goal Plan of Care Note [code = 22725-7] Goal Plan of Care Note [code = 60666-4] Goal Plan of Care Note [code = 53840-1] Goal Plan of Care Note [code = 40322-8] Goal Plan of Care Note [code = 08620-8] Goal Plan of Care Note [code = 53992-1] Goal Plan of Care Note [code = 25270-8] Goal Plan of Care Note [code = 02417-0] Goal Plan of Care Note [code = 04989-2] Goal Plan of Care Note [code = 64687-9] Goal Plan of Care Note [code = 00160-8] Goal Plan of Care Note [code = 28838-0] Goal Plan of Care Note [code = 26737-1] Goal Plan of Care Note [code = 56633-1] Goal Plan of Care Note [code = 01330-6] Goal Plan of Care Note [code = 40966-4] Goal Plan of Care Note [code = 22516-8] Goal Plan of Care Note [code = 09021-1] Goal Plan of Care Note [code = 06973-8] Goal Plan of Care Note [code = 95516-1] Goal Plan of Care Note [code = 41227-4] Goal Plan of Care Note [code = 45301-1] Goal Plan of Care Note [code = 81332-1] Goal Plan of Care Note [code = 71019-0] Goal Plan of Care Note [code = 46841-7] Goal Plan of Care Note [code = 20980-5] Goal Plan of Care Note [code = 03363-5] Goal Plan of Care Note [code = 91442-3] Goal Plan of Care Note [code = 91430-4] Goal Plan of Care Note [code = 88380-8] Goal Plan of Care Note [code = 07151-3] Goal Plan of Care Note [code = 91652-8] Goal Plan of Care Note [code = 58305-1] Goal Plan of Care Note [code = 11269-9] Goal Plan of Care Note [code = 14870-4] Goal Plan of Care Note [code = 45883-1] Goal Plan of Care Note [code = 38319-6] Goal Plan of Care Note [code = 60192-5] Goal Plan of Care Note [code = 44685-6] Goal Plan of Care Note [code = 68519-0] Goal Plan of Care Note [code = 74168-2] Goal Plan of Care Note [code = 70494-4] Goal Plan of Care Note [code = 19361-1] Goal Plan of Care Note [code = 57882-4] Goal Plan of Care Note [code = 59862-7] Goal Plan of Care Note [code = 60881-9] Goal Plan of Care Note [code = 47214-0] Goal Plan of Care Note [code = 63367-3] Goal Plan of Care Note [code = 87436-2] Goal Plan of Care Note [code = 32928-0] Goal Plan of Care Note [code = 51449-9] Goal Plan of Care Note [code = 50543-7] Goal Plan of Care Note [code = 78397-6] Goal Plan of Care Note [code = 69826-0] Goal Plan of Care Note [code = 84478-5] Goal Plan of Care Note [code = 72238-8] Goal Plan of Care Note [code = 97580-1] Goal Plan of Care Note [code = 38463-1] Goal Plan of Care Note [code = 28966-9] Goal Plan of Care Note [code = 47350-2] Goal Plan of Care Note [code = 93354-8] Goal Plan of Care Note [code = 63686-3] Goal Plan of Care Note [code = 81311-4] Goal Plan of Care Note [code = 70032-8] Goal Plan of Care Note [code = 57813-2] Goal Plan of Care Note [code = 32055-7] Goal Plan of Care Note [code = 88244-4] Goal Plan of Care Note [code = 16102-4] Goal Plan of Care Note [code = 48947-7] Goal Plan of Care Note [code = 50885-4] Goal Plan of Care Note [code = 75736-8] Goal Plan of Care Note [code = 22621-2] Goal Plan of Care Note [code = 80014-8] Goal Plan of Care Note [code = 18204-6] Goal Plan of Care Note [code = 49465-3] Goal Plan of Care Note [code = 26685-8] Goal Plan of Care Note [code = 75706-5] Goal Plan of Care Note [code = 26656-8] Goal Plan of Care Note [code = 93466-4] Goal Plan of Care Note [code = 32208-2] Goal Plan of Care Note [code = 70941-2] Goal Plan of Care Note [code = 58211-2] Goal Plan of Care Note [code = 94954-9] Goal Plan of Care Note [code = 17837-0] Goal Plan of Care Note [code = 24126-6] Goal Plan of Care Note [code = 56915-1] Goal Plan of Care Note [code = 48247-6] Goal Plan of Care Note [code = 68882-7] Goal Plan of Care Note [code = 91072-1] Goal Plan of Care Note [code = 15414-0] Goal Plan of Care Note [code = 51560-4] Goal Plan of Care Note [code = 87029-1] Goal Plan of Care Note [code = 66921-9] Goal Plan of Care Note [code = 32177-3] Goal Plan of Care Note [code = 85397-6] Goal Plan of Care Note [code = 22560-9] Goal Plan of Care Note [code = 51013-6] Goal Plan of Care Note [code = 66184-1] Goal Plan of Care Note [code = 50253-4] Goal Plan of Care Note [code = 96027-5] Goal Plan of Care Note [code = 73202-2] Goal Plan of Care Note [code = 80110-8] Goal Plan of Care Note [code = 41618-5] Goal Plan of Care Note [code = 78358-6] Goal Plan of Care Note [code = 58722-8] Goal Plan of Care Note [code = 41946-7] Goal Plan of Care Note [code = 82897-4] Goal Plan of Care Note [code = 14983-3] Goal Plan of Care Note [code = 84473-9] Goal Plan of Care Note [code = 91077-1] Goal Plan of Care Note [code = 68396-5] Goal Plan of Care Note [code = 60258-4] Goal Plan of Care Note [code = 09252-5] Goal Plan of Care Note [code = 59566-1] Goal Plan of Care Note [code = 90589-5] Goal Plan of Care Note [code = 40515-6] Goal Plan of Care Note [code = 98532-0] Goal Plan of Care Note [code = 27345-7] Goal Plan of Care Note [code = 67223-1] Goal Plan of Care Note [code = 12418-6] Goal Plan of Care Note [code = 18592-4] Goal Plan of Care Note [code = 21337-8] Goal Plan of Care Note [code = 73652-2] Goal Plan of Care Note [code = 99305-0] Goal Plan of Care Note [code = 31744-6] Goal Plan of Care Note [code = 40727-1] Goal Plan of Care Note [code = 94379-9] Goal Plan of Care Note [code = 68910-0] Goal Plan of Care Note [code = 24757-6] Goal Plan of Care Note [code = 64874-3] Goal Plan of Care Note [code = 27796-1] Goal Plan of Care Note [code = 55862-0] Goal Plan of Care Note [code = 09317-1] Goal Plan of Care Note [code = 12352-1] Goal Plan of Care Note [code = 56577-3] Goal Plan of Care Note [code = 44330-1] Goal Plan of Care Note [code = 79915-8] Goal Plan of Care Note [code = 24599-9] Goal Plan of Care Note [code = 22269-1] Goal Plan of Care Note [code = 39102-8] Goal Plan of Care Note [code = 35219-9] Goal Plan of Care Note [code = 52229-7] Goal Plan of Care Note [code = 87213-9] Goal Plan of Care Note [code = 25923-3] Goal Plan of Care Note [code = 01613-2] Goal Plan of Care Note [code = 53073-0] Goal Plan of Care Note [code = 10553-7] Goal Plan of Care Note [code = 19499-6] Goal Plan of Care Note [code = 92776-5] Encounters Start Date/Time End Date/Time Encounter Type Admission Type Attending [facility] Care Facility Care Department Encounter ID Source 2024-10-30 10:25:00 Outpatient Stuart Valles [facility] [id number] [facility] 2025-07-02 09:42:34 2025-07-02 09:42:34 Outpatient SFA SFA 0926 Óscar Zavala 2025-06-18 20:38:35 2025-06-18 20:38:35 Outpatient SFA SFA 0912 Óscar Zavala 2025-06-07 09:12:47 2025-06-07 09:12:47 Outpatient SFA SFA 0901 Óscar Zavala 2025-03-31 07:56:53 2025-03-31 07:56:53 Outpatient SFA [facility] 0625 Óscar Zavala 2025-03-07 01:47:00 2025-03-07 04:10:00 Emergency X CARIE CHANEL, CARIE [facility] ERT [id number] [facility] 2024-11-16 00:00:00 2024-12-17 23:53:00 Telephone Glenn [facility] [place] [facility] 1..840.114 350.1.13.70 8.2.7.2.686 [id number] [facility] 2024-[facility]-11 09:52:18 2024-11-11 11:04:54 [id number] 2024-11-11 09:30:00 2024-11-11 09:40:00 Consult John Addison [facility] 1..840.114 350.1.13.70 8.2.7.2.686 [id number] Phuong Fulton [facility] 2024-11-05 00:00:00 2024-11-05 00:00:00 Outpatient DALY MEJIAS [id number] Shelby Olvera 2024-10-30 00:00:00 2024-10-30 00:00:00 (TEL) [facility] [id number] [facility] 2024-10-12 19:55:00 2024-10-12 22:49:00 Emergency X SARMAD RASHID SHINTA TNZAN ERT [id number] [facility] 2024-10-12 19:55:00 2024-10-12 22:49:00 Emergency Sarmad Rashid TNZAN [facility] 1..840.114 350.1.13.10 4.2.7.2.686 [id number] [facility] 2024-09-24 00:00:00 2024-09-24 00:00:00 Outpatient PREZADALY WangGENO PATTERSON [id number] [facility] 2024-08-26 00:00:00 2024-08-26 00:00:00 Outpatient DALY MEJIAS SHELBY PATTERSON [id number] [facility] 2024-02-17 11:24:53 2024-02-17 11:24:53 Outpatient SFA S[facility] [id number] Óscar Zavala 2024-02-13 16:21:03 2024-02-13 16:21:03 Outpatient SFA SFA [id number] Óscar Zavala 2024-02-13 00:00:00 2024-02-13 00:00:00 Outpatient Visit SFA [id number]-f [id number] Óscar Zavala 2023-12-24 10:45:00 2023-12-24 10:45:00 Outpatient PREZADALY WangGENO PATTERSON [id number] Shelby [facility] 2023-12-17 16:47:51 2023-12-17 16:47:51 Outpatient SFA SFA [id number] 0312 Óscar Zavala 2023-12-11 14:22:41 2023-12-11 14:22:41 Outpatient SFA SFA [id number] Óscar Zavala 2023-11-18 11:00:00 2023-11-18 11:00:00 Outpatient PREZADALY Wang SHELBY PATTERSON [id number] Shelby [facility] 2023-10-17 00:00:00 2023-10-17 00:00:00 Outpatient PREZAENE WangDEAN PATTERSON [id number] Shelby [facility] 2023-10-16 00:00:00 2023-10-16 00:00:00 Outpatient PREZAENE WangDEAN PATTERSON [id number] Shelby [facility] 2023-10-15 00:00:00 2023-10-15 00:00:00 Outpatient DALY MEJIAS [id number] [facility] 2023-10-14 09:45:00 2023-10-14 09:45:00 Outpatient LAB90 SHELBY PATTERSON [id number] [facility] 2023-10-14 08:45:00 2023-10-14 08:45:00 Outpatient DALY MEJIAS [id number] [facility] 2023-08-14 11:42:13 2023-08-14 11:42:13 Outpatient [facility] [id number] Óscar Rose Lucas 2023-07-09 15:49:57 2023-07-09 15:49:57 Outpatient [facility] 1003 Óscar Zavala 2023-04-26 00:00:00 2023-04-26 00:00:00 Orders Only Doctor Unassigned, [place] [facility] 1.2840.114 350.1.13.10 4.2.7.2.686 [id number] [facility] 2023-04-23 10:17:21 2023-04-23 10:17:21 Outpatient [facility] 0718 Óscar Rose [place] 2023-04-17 00:00:00 2023-04-17 00:00:00 Orders Only Doctor Unassigned, [place] [facility] 1.2840.114 350.1.13.10 4.2.7.2.686 [id number] [facility] 2023-02-08 08:35:00 2023-02-08 12:02:00 Emergency X Maricarmen TALAVERA [facility] ERT [id number] [facility] 2023-02-08 08:35:00 2023-02-08 12:02:00 Emergency Maricarmen Talavera [facility] 1.2840.114 350.1.13.10 4.2.7.2.686 [id number] [facility] 2023-02-08 00:00:00 2023-02-08 00:00:00 Patient Secure Msg Doctor Unassigned, [place] [facility] 1.2.840.114 350.1.13.10 4.2.7.2.686 [id number] [facility] 2022-12-17 14:21:59 2022-12-17 14:21:59 Outpatient SFA [facility] [id number] Óscar Zavala 2022-11-28 16:34:00 2022-11-28 18:21:00 Emergency X JOHN MAHARAJ ERT [id number] [facility] 2022-11-28 16:34:00 2022-11-28 18:21:00 Emergency John Maharaj [facility] 1..840.114 350.1.13.10 4.2.7.2.686 [id number] [facility] 2022-11-28 13:54:29 2022-11-28 13:54:29 Outpatient SFA [facility] [id number] Óscar Rose Lucas 2022-11-08 10:17:59 2022-11-08 10:17:59 Outpatient [facility] [id number] Óscar Rose Lucas 2022-10-30 08:40:52 2022-10-30 08:40:52 Outpatient SFA [facility] [id number] Óscar Rose [place] 2022-10-23 17:01:52 2022-10-23 17:01:52 Outpatient [facility] [id number] Óscar Rose [place] 2022-10-23 00:00:00 2022-10-23 00:00:00 Outpatient Visit [id number] vicky-45d0-9 [id number] d0ef99 2022-09-16 14:58:00 2022-09-16 19:08:00 Emergency DANNIELLE MONTIEL ERT [id number] [facility] 2022-09-16 14:58:00 2022-09-16 19:08:00 Emergency Hawk, Dannielle E [facility] 1.2.840.114 350.1.13.10 4.2.7.2.686 [id number] [facility] 2022-08-15 10:49:03 2022-08-15 10:49:03 Outpatient SFA [facility] [id number] Óscar Zavala 2022-07-02 00:00:00 2022-07-02 00:00:00 Outpatient Visit [id number] e9j-4w30-8 fa8-5933fc 91e4b7 2022-06-25 20:19:00 2022-06-25 21:54:00 Emergency X EBENEZER NICHOLSON [facility] ERT [id number] [facility] 2022-06-25 20:19:00 2022-06-25 21:54:00 Emergency Edwina Nicholsonram Lisa [facility] 1.2.840.114 350.1.13.10 4.2.7.2.686 [id number] [facility] 2022-06-05 00:00:00 2022-06-05 00:00:00 Outpatient Visit [id number] -8eaf-d0a [id number] [id number] eaf-d0acf8 31c2b3 2022-05-07 00:00:00 2022-05-07 00:00:00 Outpatient Visit [id number] -9565-dac [id number] 740-4024-9 565-dac46b 95debf 2022-04-09 22:07:00 2022-04-09 22:08:00 Emergency RENETTA HANSEN [facility] ERT [id number] [facility] 2022-04-09 22:07:00 2022-04-09 22:08:00 Emergency Renetta Coe [facility] 1.2.840.114 350.1.13.10 4.2.7.2.686 [id number] [facility] 2021-12-06 21:21:00 2021-12-07 01:08:00 Emergency X ELADIO MONSIVAIS [facility] ERT [id number] [facility] 2021-12-06 21:21:00 2021-12-07 01:08:00 Emergency Eladio Monsivais [facility] 1.2.840.114 350.1.13.10 4.2.7.2.686 [id number] [facility] 2021-06-23 22:09:00 2021-06-23 22:10:00 Emergency Yolanda Bass [facility] 1.2.840.114 350.1.13.10 4.2.7.2.686 [id number] [facility] 2021-06-23 21:42:00 2021-06-23 21:42:00 Emergency X YOLANDA BASS [facility] ERT [id number] [facility] 2021-03-05 17:25:00 2021-03-05 18:39:00 Emergency Vonnie Nathan [facility] 1.2.840.114 350.1.13.10 4.2.7.2.686 [id number] [facility] 2021-03-05 17:25:00 2021-03-05 18:39:00 Emergency X VONNIE NATHAN [facility] ERT [id number] [facility] 2020-12-17 11:09:00 2020-12-17 12:55:00 Emergency JefferyHermilo [facility] 1.2.840.114 350.1.13.10 4.2.7.2.686 [id number] [facility] 2020-12-17 11:09:00 2020-12-17 12:55:00 Emergency X HERMILO JEFFERY [facility] ERT [id number] [facility] 2020-10-30 06:26:00 2020-10-30 09:25:00 Emergency Kt Ratliff [facility] 1.2.840.114 350.1.13.10 4.2.7.2.686 [id number] [facility] 2020-10-30 06:22:00 2020-10-30 06:22:00 Emergency X [facility] ERT [id number] [facility] 2020-09-26 15:22:00 2020-09-26 19:20:00 Emergency Carie Chanel [facility] 1.2840.114 350.1.13.10 4.2.7.2.686 [id number] [facility] 2020-09-26 15:22:00 2020-09-26 19:20:00 Emergency X CARIE CHANEL [facility] ERT [id number] [facility] 2020-09-01 16:25:00 2020-09-01 20:55:00 Emergency Luisito Chavis [facility] 1.2.840.114 350.1.13.10 4.2.7.2.686 [id number] [facility] 2020-09-01 16:25:00 2020-09-01 16:25:00 Emergency X LUISITO CHAVIS [facility] ERT [id number] [facility] 2020-09-01 00:00:00 2020-09-01 00:00:00 Nurse Triage Ly Yepez [facility] 1.2.840.114 350.1.13.10 4.2.7.2.686 [id number] [facility] 2020-08-08 00:00:00 2020-08-08 00:00:00 Letter (Out) Roberto Carlos Mastersonrell [facility] 1.2.840.114 350.1.13.10 4.2.7.2.686 [id number] [facility] 2020-07-25 20:28:00 2020-07-25 23:58:00 Emergency Yolanda Bass [facility] 1.2.840.114 350.1.13.10 4.2.7.2.686 [id number] [facility] 2020-07-25 19:37:00 2020-07-25 19:37:00 Emergency X [facility] ERT [id number] [facility] 2020-07-05 00:00:00 2020-07-05 00:00:00 Orders Only Doctor Unassigned, [place] [facility] 1.2.840.114 350.1.13.10 4.2.7.2.686 [id number] [facility] 2018-07-15 08:45:00 2018-07-15 08:45:00 Outpatient [facility] [id number] [facility] 2018-01-07 14:30:00 2018-01-07 14:30:00 Outpatient [facility] [id number] [facility] Results Test Description Test Time Test Comments Results Result Comments Source CT Abdomen pelvis wo contrast 08:50:40 Ordering Physician: CARIE CHANEL Clinical indication: Flank pain. Kidney stone suspected. Comparison: None. Technique: CT abdomen and pelvis without intravenous contrast. Thisexamination was performed according to ALARA principles. Technical quality: Adequate Findings: No radiopaque urinary tract calculi are evident. There is mild urothelialthickening of the right ureter and mild periureteral fat stranding ispresent on this side. The kidneys are unremarkable in appearance, allowingfor the noncontrast technique. The urinary bladder wall appears thickenedfor the degree of distention, likely reflecting cystitis. The liver is mildly enlarged and otherwise unremarkable. The gallbladder,spleen, pancreas, and adrenal glands are unremarkable. There is a smallhiatal hernia. Evaluation of the stomach is limited by lack of distention,but no gross gastric abnormalities are apparent. There is traceatherosclerotic calcification, with no aneurysms of the abdomen or pelvisevident. An IUD appears normally positioned within the uterus. There is no evidence of colitis or diverticulitis. A normal appendix isidentified. There is no bowel distention. There is no free intraperitonealfluid or free intraperitoneal air. The included lung bases are clear. Thereare degenerative changes of the spine. No acute bony abnormalities areevident. [facility] WITH [id number] 07:38:20* Test Item Value Reference Range Interpretation Comme nts WBC (test code = 6690-2) 7.87 4.30-11.10 RBC (test code = 789-8) 4.06 3.93-5.25 HGB (test code = 718-7) 11.9 g/dL 11.6-15.0 HCT (test code = 4544-3) 36.6 % 35.7-45.2 MCV (test code = 787-2) 90.1 fL 80.6-95.5 MCH (test code = 785-6) 29.3 pg 25.9-32.8 MCHC (test code = 786-4) 32.5 g/dL 31.6-35.1 RDW-SD (test code = 91911-3) 39.1 fL 39.0-49.9 RDW-CV (test code = 788-0) 11.9 % 12.0-15.5 L PLT (test code = 777-3) 358 166-358 MPV (test code = 42094-6) 10.2 fL 9.5-12.9 NRBC/100 WBC (test code = 9308657158) 0 0.0-10.0 NRBC x10^3 (test code = 5787929884) See_Comment [Automated [employer] ge] The system which generated this result transmitted reference range: 10*3/?L. The reference range was not used to interpret this result as normal/abnormal. GRAN MAT (NEUT) % (test code = 770-8) 55.7 % IMM GRAN % (test code = 6088187816) 0.4 % LYMPH % (test code = 736-9) 29.5 % MONO % (test code = 5905-5) 10.5 % EOS % (test code = 713-8) 3.3 % BASO % (test code = 706-2) 0.6 % GRAN MAT x10^3(ANC) (test code = 0634937363) 4.38 10*3/uL 1.88-7.09 IMM GRAN x10^3 (test code = 5457660090) 0.03 10*3/uL 0.00-0.06 LYMPH x10^3 (test code = 731-0) 2.32 10*3/uL 1.32-3.29 MONO x10^3 (test code = 742-7) 0.83 10*3/uL 0.33-0.92 EOS x10^3 (test code = 711-2) 0.26 10*3/uL 0.03-0.39 BASO x10^3 (test code = 704-7) 0.05 10*3/uL 0.01-0.07 Lab Interpretation (test code = 21981-8) [facility] [id number] 03:31:26* Test Item Value Reference Range Interpretation Comme nts GLUCOSE (test code = 2217) 381 MG/DL 70-99 H BUN (test code = 2208) 13 MG/DL 6-20 CREATININE (test code = 2214) 0.58 MG/DL 0.60-1.30 L eGFR (2020 CKD-EPI) (test code = 37709) 109 ML/MIN/1.73 >60 CALC BUN/CREAT (test code = 2235) 22 RATIO 6-28 SODIUM (test code = 2231) 135 MEQ/L 133-146 POTASSIUM (test code = 2228) 4.3 MEQ/L 3.5-5.4 CHLORIDE (test code = 2215) 98 MEQ/L 95-107 CARBON DIOXIDE (test code = 2206) 27 MEQ/L 19-31 CALCIUM (test code = 2209) 9.4 MG/DL 8.5-10.5 PROTEIN, TOTAL (test code = 222) 7.0 G/DL 6.1-8.3 ALBUMIN (test code = 2201) 3.9 G/DL 3.5-5.2 CALC GLOBULIN (test code = 2240) 3.1 G/DL 1.9-3.7 CALC A/G RATIO (test code = 2233) 1.3 RATIO 1.0-2.6 BILIRUBIN, TOTAL (test code = 7) 0.5 MG/DL <=1.2 ALKALINE PHOSPHATASE (test code = 2203) 118 U/L 40-132 AST (test code = 2218) 14 U/L 9-40 ALT (test code = 2219) 19 U/L 5-40 LIPID [id number] 03:31:26* Test Item Value Reference Range Interpretation Comme nts CHOLESTEROL (test code = 0) 207 MG/DL <200 H TRIGLYCERIDES (test code = 2232) 145 MG/DL <150 HDL CHOLESTEROL (test code = 0) 57 MG/DL >39 CALC LDL CHOL (test code = 2236) 124 MG/DL <100 H NOTE: CALCULATED LDL IS BASED ON JASPER-GOLDMAN METHOD WHICHINCLUDES ADJUSTABLE TRIGLYCERIDE:VLDL CHOLESTEROL RATIO.THIS FACTOR VARIES BY MEASURED TRIGLYCERIDE AND NON-HDLCHOLESTEROL CONCENTRATIONS WITH INCREASED CALCULATED LDL SEENIN HIGHER TRIGLYCERIDE OR LOWER NON-HDL SPECIMENS. FOR MOREINFORMATION, SEE CLIENT ANNOUNCEMENT AT [email or web address] RISK RATIO LDL/HDL (test code = 223) 2.18 RATIO <3.22 UNLESS OTHERW ISE INDICATED, ALL TESTING PERFORMED AT [facility] [address] [place] [address] [employer] TECHN[employer] MANAGER: JOSE MORALES M.D. [place] NUMBER [id number] [facility] [place]. [id number] HEMOGLOBIN [id number] 02:53:39* Test Item Value Reference Range Interpretation Comme nts HEMOGLOBIN A1c (test code = 38714) 11.7 % 4.2-5.6 H [employer] GUIDELINES FOR HGB A1C: [...] MG/DL eGFR (2020 CKD-EPI) (test code = 88001) 109 ML/MIN/1.73 CALC BUN/CREAT (test code = [...] e = 2238) 2.18 RATIO Óscar ZavalaHEMOGLOBIN [id number] 00:00:00* Test Item Value Reference Range Interpretation Comme nts HEMOGLOBIN A1c (test code = 32968) 11.7 % Óscar Rose AustinLIPID [id number] 10:46:21* Test Item Value Reference Range Interpretation [...] SPECIMENS. FOR MOREINFORMATION, SEE CLIENT ANNOUNCEMENT AT [email or web address] /[email or web address]-[email or web address] RISK RATIO LDL/HDL (test code = 223) 1.98 RATIO <3.22 COMPREHENSIVE METABOLIC [id number] 10:46:21* Test Item Value Reference Range Interpretation Comme nts GLUCOSE (test code = 2216) 173 MG/DL 70-99 H BUN (test code = 2207) 7 MG/DL 6-20 CREATININE (test code = 221) 0.56 MG/DL 0.60-1.30 L eGFR (2020 CKD-EPI) (test code = 49302) 110 ML/MIN/1.73 >60 CALC BUN/CREAT (test code [...] 1.9-3.7 CALC A/G RATIO (test code = 223) 1.4 RATIO 1.0-2.6 BILIRUBIN, TOTAL (test code [...] 5-40 UNLESS OTHERWISE INDICATED, ALL [facility]FOR[facility] [address] [place] [address] [employer] TECHN[employer] MANAGER: KEVIN FRANCO M.D. [place] NUMBER [id number] [facility] [place]. [id number] HEMOGLOBIN [id number] 07:47:20* Test Item Value Reference Range Interpretation Comme [facility] HEMOGLOBIN A1c (test code = 81214) 12.0 % 4.2-5.6 H [employer] GUIDELINES FOR HGB A1C: [...] CONSIDER ALTERNATE TESTING OR LABORATORY CONSULTATION. LIPID [id number] 00:00:00* Test Item Value Reference Range Interpretation Comme nts CHOLESTEROL (test code = 2210) 199 MG/DL TRIGLYCERIDES (test code = 2232) 149 MG/DL HDL CHOLESTEROL (test code = 2220) 58 MG/DL CALC LDL CHOL (test code = 2237) 115 MG/DL RISK RATIO LDL/HDL (test cod e = 2238) 1.98 RATIO Óscar ZavalaCOMPREHENSIVE METABOLIC [id number] 00:00:00* Test Item Value Reference Range Interpretation Comme nts GLUCOSE (test code = 2217) 173 MG/DL BUN (test code = 2208) 7 MG/DL CREATININE (test code = 2214) 0.56 MG/DL eGFR (2020 CKD-EPI) (test code = 66202) 110 ML/MIN/1.73 CALC BUN/CREAT (test code = [...] code = 2219) 15 U/L Óscar ZavalaHEMOGLOBIN [id number] 00:00:00* Test Item Value Reference Range Interpretation Comme [facility] HEMOGLOBIN A1c (test code = 67972) 12.0 % [facility]2021-12-07 07:06:55* Test Item Value Reference Range Interpretation Comme [facility] POCT GLU (test code = 7534588360) 292 mg/dL 70-110 H Lab Interpretation (test cod e = 21830-7) Abnormal [facility] GLUCOSE (AUTOMATED)2021-12-07 04:55:44* Test Item Value Reference Range Interpretation Comme [facility] POCT GLU (test code = 9527942512) 440 mg/dL 70-110 H Lab Interpretation (test cod e = 15392-0) Abnormal [facility] METABOLIC PANEL (80979)2021-12-07 04:40:58* Test Item Value Reference Range Interpretation Comme [facility] NA (test code = 2642389566) 133 mmol/L 135-145 L K (test code = 1131081694) 4.2 mmol/L 3.5-5.0 CL (test code = 1638752008) 97 mmol/L 98-108 L CO2 TOTAL (test code = 7347778219) 25 mmol/L 23-31 AGAP (test code = 0751578073) 2-16 BUN (test code = 7318559058) 11 mg/dL 7-23 GLUCOSE (test code = 0614341981) 519 mg/dL 70-110 HH CREATININE (test code = 6578863212) 0.65 mg/dL 0.50-1.04 TOTAL BILI (test code = 2340961888) 0.4 mg/dL 0.1-1.1 CALCIUM (test code = 0734483943) 8.8 mg/dL 8.6-10.6 T PROTEIN (test code = 8206896799) 6.9 g/dL 6.3-8.2 ALBUMIN (test code = 3712766005) 3.9 g/dL 3.5-5.0 ALK PHOS (test code = 2997553932) 113 U/L 34-122 ALTv (test code = 1742-6) 25 U/L 5-35 AST(SGOT) (test code = 5901801656) 32 U/L 13-40 eGFR (test code = 8054569051) mL/min/1.73m2 MATTHEW (test code = MATTHEW) Association [...] imaging tests). Lab Interpretation (test code = 89942-5) [facility] CenterTRJASONN [id number] 04:33:26* Test Item Value Reference Range Interpretation Comments TROPONIN I (test code = 2670281939) <0.012 See_Comment [Automated message] The system which [...] of biotin. Lab Interpretation (test code = 68269-0) Normal [facility] CenterPROTHROMBIN TIME / [id number] 04:13:03* Test Item Value Reference Range Interpretation Comme nts PROTIME PATIENT (test code = 5964-2) See_Comment [Equ[employer]] The system which generated this result transmitted reference range: 12.0 - 14.7 Seconds. The reference range was not used to interpret this result as normal/abnormal. INR (test code = 6301-6) Normal INR <1.1; Warfarin Therapeutic range 2.0 to 3.0 or 2.5 to 3.5, depending upon the indications. Lab Interpretation (test code = 88122-1) Normal [facility] CenterCBC WITH [id number] 04:06:26* Test Item Value Reference Range Interpretation Comme nts WBC (test code = 6690-2) See_Comment [Automated [employer]] The system which generated this result transmitted reference range: 4.30 - 11.10 10*3/?L. The reference range was not used to interpret this result as normal/abnormal. RBC (test code = 789-8) See_Comment [Automated [employer]] The system which generated this result transmitted [...] 33.3 g/dL 31.6-35.1 RDW-SD (test code = 13910-8) 39.2 fL 39.0-49.9 RDW-CV (test code = 788-0) 12.2 % 12.0-15.5 PLT (test code = 777-3) See_Comment [Automated messa ge] The system which generated this result transmitted reference range: 166 - 358 10*3/?L. The reference range was not used to interpret this result as normal/abnormal. MPV (test code = 70083-7) 10.4 fL 9.5-12.9 NRBC/100 WBC (test code = 6572962317) See_Comment [Automated me ssage] The system which generated this result transmitted reference range: 0.0 - 10.0 /100 WBCs. The reference range was not used to interpret this result as normal/abnormal. NRBC x10^3 (test code = 6232278625) <0.01 See_Comment [Automated me ssage] The system which generated this result transmitted reference range: 10*3/?L. The reference range was not used to interpret this result as normal/abnormal. GRAN MAT (NEUT) % (test code = 770-8) 45.7 % IMM GRAN % (test code = 0538244479) 0.50 % LYMPH % (test code = 736-9) 38.7 % MONO % (test code = 5905-5) 10.4 % EOS % (test code = 713-8) 4.1 % BASO % (test code = 706-2) 0.6 % GRAN MAT x10^3(ANC) (test code = 1355840852) 3.00 10*3/uL 1.88-7.09 IMM GRAN x10^3 (test code = 8475241429) 0.03 10*3/uL 0.00-0.06 LYMPH x10^3 (test code = 731-0) 2.54 10*3/uL 1.32-3.29 MONO x10^3 (test code = 742-7) 0.68 10*3/uL 0.33-0.92 EOS x10^3 (test code = 711-2) 0.27 10*3/uL 0.03-0.39 BASO x10^3 (test code = 704-7) 0.04 10*3/uL 0.01-0.07 [facility] [id number] 00:00:00* Test Item Value Reference Range Interpretation Comme nts CULTURE, URINE (test code = 37307) SPECIMEN NUMBER: [id number] CULTURE, [id number] 00:00:00* Test Item Value Reference Range Interpretation Comme nts CULTURE, URINE (test code = 34326) SPECIMEN NUMBER: [id number] CULTURE, [id number] 00:00:00* Test Item Value Reference Range Interpretation Comme nts CULTURE, URINE (test code = 98776) SPECIMEN NUMBER: [id number] CULTURE, [id number] 00:00:00* Test Item Value Reference Range Interpretation Comme nts CULTURE, URINE (test code = 30107) SPECIMEN NUMBER: [id number] CULTURE, [id number] 00:00:00* Test Item Value Reference Range Interpretation Comme nts CULTURE, URINE (test code = 85927) SPECIMEN NUMBER: [id number] Óscar F AustinVAGINAL PATHOGENS DNA [id number] 00:00:00* Test Item Value Reference Range Interpretation Comme nts KASSI SPECIES (test code = ) NEGATIVE G. VAGINALIS (test code = 72589) POSITIVE T. VAGINALIS (test code = 09152) NEGATIVE VAGINAL PATHOGENS DNA [id number] 00:00:00* Test Item Value Reference Range Interpretation Comme nts KASSI SPECIES (test code = 81211) NEGATIVE G. VAGINALIS (test code = 04804) POSITIVE T. VAGINALIS (test code = 20795) NEGATIVE VAGINAL PATHOGENS DNA [id number] 00:00:00* Test Item Value Reference Range Interpretation Comme nts KASSI SPECIES (test code = 93718) NEGATIVE G. VAGINALIS (test code = 23534) POSITIVE T. VAGINALIS (test code = 01075) NEGATIVE VAGINAL PATHOGENS DNA [id number] 00:00:00* Test Item Value Reference Range Interpretation Comme nts KASSI SPECIES (test code = ) NEGATIVE G. VAGINALIS (test code = 91320) POSITIVE T. VAGINALIS (test code = 88174) NEGATIVE VAGINAL PATHOGENS DNA [id number] 00:00:00* Test Item Value Reference Range Interpretation Comme nts KASSI SPECIES (test code = ) NEGATIVE G. VAGINALIS (test code = 97521) POSITIVE T. VAGINALIS (test code = 09448) NEGATIVE Óscar Shook MAMM BILATERAL HERNANDEZ CAD [id number] 08:00:36 Name: Stew : 1970 Sex: F - DIAG MAMM BILATERAL HERNANDEZ CAD DIGITALBILATERAL DIGITAL DIAGNOSTIC MAMMOGRAM 3D/2D WITH CAD: 04/06/2021LINICAL: Abnormal Report from CT scan. Digital breast tomosynthesis was performed in addition to routine CC and MLO views. Current mammographic images were evaluated by [employer] CAD (computer-aided detection) software. Comparison is made to exam dated 04/25/2015 mammogram - [facility]. The tissue of both breasts is [...] to exam dated 04/25/2015 mammogram - [facility]. Real-time ultrasound of both breasts and both axilla and clinical breast exam were performed. No abnormalities were seen sonographically in either breast or either axilla. Clinical breast exam was unremarkable.IMPRESSION: NEGATIVE There is no sonographic evidence of malignancy. Resume annual screening mammography in one year. Carmel Hensley M.D. dm/:04/07/2021 08:00:36 Entry: - 108:18:04Imaging Technologist: Bonnie Esteban FW, [facility]- FWletter sent: BIRADS 1-2 Combo FU Letter Mammogram BI-RADS: 0 Incomplete: Additional Imaging Evaluation Needed Ultrasound BI-RADS: 1 NegativeBREAST ULTRASOUND [id number] 08:00:36 Name: Stew : 1970 Sex: F - DIAG MAMM BILATERAL HERNANDEZ CAD DIGITALBILATERAL DIGITAL DIAGNOSTIC MAMMOGRAM 3D/2D WITH CAD: 04/06/2021LINICAL: Abnormal Report from CT scan. Digital breast tomosynthesis was performed in addition to routine CC and MLO views. Current mammographic images were evaluated by [employer] CAD (computer-aided detection) software. Comparison is made to exam dated 04/25/2015 mammogram - [facility]. The tissue of both breasts [...] to exam dated 04/25/2015 mammogram - [facility]. Real-time ultrasound of both breasts and both axilla and clinical breast exam were performed. No abnormalities were seen sonographically in either breast or either axilla. Clinical breast exam was unremarkable.IMPRESSION: NEGATIVE There is no sonographic evidence of malignancy. Resume annual screening mammography in one year. Carmel Hensley M.D. dm/:04/07/2021 08:00:36 Entry: cheikh - 108:18:04Imaging Technologist: Bonnie Esteban FW, [facility]- FWletter sent: BIRADS 1-2 Combo FU Letter Mammogram BI-RADS: 0 Incomplete: Additional Imaging Evaluation Needed Ultrasound BI-RADS: 1 NegativeH. PYLORI (BREATH)2021-03-04 00:00:00* Test Item Value Reference Range Interpretation Comme nts H. PYLORI (BREATH) (test cod e = 12164) POSITIVE H. PYLORI (BREATH)2021-03-04 00:00:00* Test Item Value Reference Range Interpretation Comme nts H. PYLORI (BREATH) (test cod e = 09848) POSITIVE H. PYLORI (BREATH)2021-03-04 00:00:00* Test Item Value Reference Range Interpretation Comme nts H. PYLORI (BREATH) (test cod e = 84744) POSITIVE H. PYLORI (BREATH)2021-03-04 00:00:00* Test Item Value Reference Range Interpretation Comme nts H. PYLORI (BREATH) (test cod e = 94822) POSITIVE H. PYLORI (BREATH)2021-03-04 00:00:00* Test Item Value Reference Range Interpretation Comme nts H. PYLORI (BREATH) (test cod e = 78097) POSITIVE [facility]/AUTO [id number] 00:00:00* Test Item Value Reference Range Interpretation [...] (test code = 1015) 387 K/UL HEMOGLOBIN [id number] 00:00:00* Test Item Value Reference Range Interpretation Comme nts HEMOGLOBIN A1c (test code = 38633) 11.1 % LIPID [id number] 00:00:00* Test Item Value Reference Range Interpretation Comme nts CHOLESTEROL (test code = 2210) 185 MG/DL TRIGLYCERIDES (test code = 2232) 190 MG/DL HDL CHOLESTEROL (test code = 2220) 49 MG/DL CALC LDL CHOL (test code = 2237) 105 MG/DL RISK RATIO LDL/HDL (test cod e = 2238) 2.14 RATIO COMPREHENSIVE METABOLIC [id number] 00:00:00* Test Item Value Reference Range Interpretation Comme nts GLUCOSE (test code = 2217) 371 MG/DL BUN (test code = 2208) 11 MG/DL CREATININE (test code = 2214) 0.61 MG/DL eGFR AMER. (test cod e = 81999) 123 ML/MIN/1.73 eGFR NON- AMER. (test code = 66634) 106 ML/MIN/1.73 CALC BUN/CREAT (test code = [...] ALT (test code = 2219) 20 U/L [id number] 00:00:00* Test Item Value Reference Range Interpretation Comme nts TSH, THIRD GENERATION (test code = 2821) 1.180 UIU/ML H. PYLORI (BREATH)2021-01-20 00:00:00* Test Item Value Reference Range Interpretation Comme nts H. PYLORI (BREATH) (test cod e = 67048) POSITIVE CBC W/AUTO [id number] 00:00:00* Test Item Value Reference Range Interpretation [...] (test code = 1015) 387 K/UL HEMOGLOBIN [id number] 00:00:00* Test Item Value Reference Range Interpretation Comme nts HEMOGLOBIN A1c (test code = 08907) 11.1 % LIPID [id number] 00:00:00* Test Item Value Reference Range Interpretation Comme nts CHOLESTEROL (test code = 2210) 185 MG/DL TRIGLYCERIDES (test code = 2232) 190 MG/DL HDL CHOLESTEROL (test code = 2220) 49 MG/DL CALC LDL CHOL (test code = 2237) 105 MG/DL RISK RATIO LDL/HDL (test cod e = 2238) 2.14 RATIO COMPREHENSIVE METABOLIC [id number] 00:00:00* Test Item Value Reference Range Interpretation Comme nts GLUCOSE (test code = 2217) 371 MG/DL BUN (test code = 2208) 11 MG/DL CREATININE (test code = 2214) 0.61 MG/DL eGFR AMER. (test cod e = 52298) 123 ML/MIN/1.73 eGFR NON- AMER. (test code = 47663) 106 ML/MIN/1.73 CALC BUN/CREAT (test code = [...] ALT (test code = 2219) 20 U/L [id number] 00:00:00* Test Item Value Reference Range Interpretation Comme nts TSH, THIRD GENERATION (test code = 2821) 1.180 UIU/ML H. PYLORI (BREATH)2021-01-20 00:00:00* Test Item Value Reference Range Interpretation Comme nts H. PYLORI (BREATH) (test cod e = 52867) POSITIVE CBC W/AUTO [id number] 00:00:00* Test Item Value Reference Range Interpretation [...] (test code = 1015) 387 K/UL HEMOGLOBIN [id number] 00:00:00* Test Item Value Reference Range Interpretation Comme nts HEMOGLOBIN A1c (test code = 65769) 11.1 % LIPID [id number] 00:00:00* Test Item Value Reference Range Interpretation Comme nts CHOLESTEROL (test code = 2210) 185 MG/DL TRIGLYCERIDES (test code = 2232) 190 MG/DL HDL CHOLESTEROL (test code = 2220) 49 MG/DL CALC LDL CHOL (test code = 2237) 105 MG/DL RISK RATIO LDL/HDL (test cod e = 2238) 2.14 RATIO COMPREHENSIVE METABOLIC [id number] 00:00:00* Test Item Value Reference Range Interpretation Comme nts GLUCOSE (test code = 2217) 371 MG/DL BUN (test code = 2208) 11 MG/DL CREATININE (test code = 2214) 0.61 MG/DL eGFR AMER. (test cod e = 08315) 123 ML/MIN/1.73 eGFR NON- AMER. (test code = 64460) 106 ML/MIN/1.73 CALC BUN/CREAT (test code = [...] ALT (test code = 2219) 20 U/L [id number] 00:00:00* Test Item Value Reference Range Interpretation Comme nts TSH, THIRD GENERATION (test code = 2821) 1.180 UIU/ML H. PYLORI (BREATH)2021-01-20 00:00:00* Test Item Value Reference Range Interpretation Comme nts H. PYLORI (BREATH) (test cod e = 84691) POSITIVE CBC W/AUTO [id number] 00:00:00* Test Item Value Reference Range Interpretation [...] (test code = 1015) 387 K/UL HEMOGLOBIN [id number] 00:00:00* Test Item Value Reference Range Interpretation Comme nts HEMOGLOBIN A1c (test code = 84669) 11.1 % LIPID [id number] 00:00:00* Test Item Value Reference Range Interpretation Comme nts CHOLESTEROL (test code = 2210) 185 MG/DL TRIGLYCERIDES (test code = 2232) 190 MG/DL HDL CHOLESTEROL (test code = 2220) 49 MG/DL CALC LDL CHOL (test code = 2237) 105 MG/DL RISK RATIO LDL/HDL (test cod e = 2238) 2.14 RATIO COMPREHENSIVE METABOLIC [id number] 00:00:00* Test Item Value Reference Range Interpretation Comme nts GLUCOSE (test code = 2217) 371 MG/DL BUN (test code = 2208) 11 MG/DL CREATININE (test code = 2214) 0.61 MG/DL eGFR AMER. (test cod e = 76893) 123 ML/MIN/1.73 eGFR NON- AMER. (test code = 19425) 106 ML/MIN/1.73 CALC BUN/CREAT (test code = [...] ALT (test code = 2219) 20 U/L [id number] 00:00:00* Test Item Value Reference Range Interpretation Comme nts TSH, THIRD GENERATION (test code = 2821) 1.180 UIU/ML H. PYLORI (BREATH)2021-01-20 00:00:00* Test Item Value Reference Range Interpretation Comme nts H. PYLORI (BREATH) (test cod e = 87824) POSITIVE H. PYLORI (BREATH)2021-01-20 00:00:00* Test Item Value Reference Range Interpretation Comme nts H. PYLORI (BREATH) (test cod e = 68517) POSITIVE Óscar Rose LucasCBC W/AUTO [id number] 00:00:00* Test Item Value Reference Range Interpretation [...] (test code = 1015) 387 K/UL Óscar Rose LucasHEMOGLOBIN [id number] 00:00:00* Test Item Value Reference Range Interpretation Comme nts HEMOGLOBIN A1c (test code = 30917) 11.1 % Óscar ZavalaLIPID [id number] 00:00:00* Test Item Value Reference Range Interpretation Comme nts CHOLESTEROL (test code = 2210) 185 MG/DL TRIGLYCERIDES (test code = 2232) 190 MG/DL HDL CHOLESTEROL (test code = 2220) 49 MG/DL CALC LDL CHOL (test code = 2237) 105 MG/DL RISK RATIO LDL/HDL (test cod e = 2238) 2.14 RATIO Óscar ZavalaCOMPREHENSIVE METABOLIC [id number] 00:00:00* Test Item Value Reference Range Interpretation Comme nts GLUCOSE (test code = 2217) 371 MG/DL BUN (test code = 2208) 11 MG/DL CREATININE (test code = 2214) 0.61 MG/DL eGFR AMER. (test cod e = 94746) 123 ML/MIN/1.73 eGFR NON- AMER. (test code = 08330) 106 ML/MIN/1.73 CALC BUN/CREAT (test code = [...] (test code = 2219) 20 U/L Óscar [id number] 00:00:00* Test Item Value Reference Range Interpretation Comme nts TSH, THIRD GENERATION (test code = 2821) 1.180 UIU/ML Óscar ZavalaCOVID-19 (ID NOW RAPID TESTING)2020-12-17 18:20:32* Test Item Value Reference Range Interpretation Comme nts SARS-CoV-2 Rapid ID NOW (test code = 17006-3) Not Detected Not Detected MATTHEW (test code = MATTHEW) ID NOW COVID-19 As say is an isothermal nucleic acid amplification test intended for the qualitative detection of nucleic acid from SARS-CoV-2 viral RNA in nasopharyngeal (SECONDARY CONNECTOR ARMATURE) specimens. It is used under Emergency Use [...] clinically indicated. Lab Interpretation (test code = 70563-7) [facility]ysis[facility] 18:20:17* Test Item Value Reference Range Interpretation Comme nts APPEARANCE (test code = 9496384214) Clear Clear COLOR (test code = 2314275915) Yellow Yellow PH (test code = 9330806398) 4.8-8.0 SP GRAVITY (test code = 9813276739) 1.003-1.030 H GLU U QUAL (test code = 3284367783) 500 mg/dL Normal A BLOOD (test code = 9233585998) Negative Negative KETONES (test code = 6619867816) 5 mg/dL Negative A PROTEIN (test code = 2887-8) 30 mg/dL Negative A UROBILIN (test code = 6667172621) Normal Normal BILIRUBIN (test code = 4635741216) Negative Negative NITRITE (test code = 0001107808) Negative Negative LEUK CHASITY (test code = 5481193122) 25/uL Negative A RBC/HPF (test code = 9869074049) See_Comment H [Automated [employer] ge] The system which generated this result transmitted reference range: 0 - 3 HPF. The reference range was not used to interpret this result as normal/abnormal. WBC/HPF (test code = 8357300684) See_Comment [Automated [employer]] The system which generated this result transmitted reference range: 0 - 5 HPF. The reference range was not used to interpret this result as normal/abnormal. BACTERIA (test code = 4186245804) Few Negative A SQ EPITH (test code = 5191901745) HPF Lab Interpretation (test code = 72065-7) [facility]normal [facility] (ALB, T.PRO, BILI T, BU/BC, ALT, AST, ALK PHOS)2020-12-17 18:07:11* Test Item Value Reference Range Interpretation Comme nts TOTAL BILI (test code = 9002452019) 0.6 mg/dL 0.1-1.1 BILI UNCON (test code = 3486045210) 0.5 mg/dL 0.1-1.1 BILI CONJ (test code = 8311445477) 0.0 mg/dL 0.0-0.3 T PROTEIN (test code = 5245670558) 8.2 g/dL 6.3-8.2 ALBUMIN (test code = 4752428902) 4.4 g/dL 3.5-5.0 ALK PHOS (test code = 7094902166) 134 U/L 34-122 H ALTv (test code = 1742-6) 29 U/L 5-35 AST(SGOT) (test code = 9215942069) 35 U/L 13-40 Lab Interpretation (test cod e = 59641-3) [facility] (NA, K, CL, CO2, GLUCOSE, BUN, CREATININE, CA)2020-12-17 18:06:51* Test Item Value Reference Range Interpretation Comme nts NA (test code = 9167270072) 135 mmol/L 135-145 K (test code = 0012558018) 4.4 mmol/L 3.5-5.0 CL (test code = 9505714451) 96 mmol/L 98-108 L CO2 TOTAL (test code = 0181090399) 31 mmol/L 23-31 AGAP (test code = 9079688934) 2-16 BUN (test code = 5782916733) 13 mg/dL 7-23 GLUCOSE (test code = 8925169183) 370 mg/dL 70-110 H CREATININE (test code = 8972735250) 0.50 mg/dL 0.50-1.04 CALCIUM (test code = 3595346860) 9.2 mg/dL 8.6-10.6 eGFR Calculation (Non-) (test code = 5356442369) mL/min/1.73m2 eGFR Calculation () (test code = 4698689181) mL/min/1.73m2 MATTHEW (test code = MATTHEW) Association [...] imaging tests). Lab Interpretation (test code = 06829-0) [facility]normal [facility] [id number] 18:06:51* Test Item Value Reference Range Interpretation Comme [facility] LIPASE (test code = [id number]) 169 U/L 0-220 Lab Interpretation (test cod e = 45569-0) [facility] 18:05:30* Test Item Value Reference Range Interpretation Comme [facility] APTT Patient (test code = 3173-2) See_Comment [Automated message] The system which generated this result transmitted reference range: 23 - 38 Seconds. The reference range was not used to interpret this result as normal/abnormal. MATTHEW (test code = MATTHEW) The [facility] patient population mean normal value for aPTT is 30 seconds. Lab Interpretation (test code = 80558-3) Normal [facility] Center[facility] (PT) / [id number] 18:03:29 * Test Item Value Reference Range [...] the indications. Lab Interpretation (test code = 79345-8) Normal [facility] CenterCBC with [id number] 17:55:29* Test Item Value Reference Range Interpretation [...] 32.8 g/dL 31.6-35.1 RDW-SD (test code = 49661-0) 39.1 fL 39.0-49.9 RDW-CV (test code = 788-0) 12.3 % 12.0-15.5 PLT (test code = 777-3) See_Comment H [Automated messa ge] The system which generated this result transmitted reference range: 166 - 358 10*3/?L. The reference range was not used to interpret this result as normal/abnormal. MPV (test code = 59896-5) 10.3 fL 9.5-12.9 NRBC/100 WBC (test code = 2691036864) See_Comment [Automated me ssage] The system which generated this result transmitted reference range: 0.0 - 10.0 /100 WBCs. The reference range was not used to interpret this result as normal/abnormal. NRBC x10^3 (test code = 9301512126) <0.01 See_Comment [Automated messa ge] The system which generated this result transmitted reference range: 10*3/?L. The reference range was not used to interpret this result as normal/abnormal. GRAN MAT (NEUT) % (test code = 770-8) 72.0 % IMM GRAN % (test code = 0895965970) 0.40 % LYMPH % (test code = 736-9) 18.4 % MONO % (test code = 5905-5) 6.4 % EOS % (test code = 713-8) 2.2 % BASO % (test code = 706-2) 0.6 % GRAN MAT x10^3(ANC) (test code = 5761920182) 7.61 10*3/uL 1.88-7.09 H IMM GRAN x10^3 (test code = 6972942598) 0.04 10*3/uL 0.00-0.06 LYMPH x10^3 (test code = 731-0) 1.94 10*3/uL 1.32-3.29 MONO x10^3 (test code = 742-7) 0.68 10*3/uL 0.33-0.92 EOS x10^3 (test code = 711-2) 0.23 10*3/uL 0.03-0.39 BASO x10^3 (test code = 704-7) 0.06 10*3/uL 0.01-0.07 Lab Interpretation (test code = 47145-2) [facility] [id number] 14:56:41.No acute cardiopulmonary abnormality Preliminary Report Dictated [...] this study and agree with the abovereport. [facility]PO[facility] [id number] 14:14:00* Test Item Value Reference Range Interpretation Comme nts POCT PREG (test code = 1605) negative On board controls acceptable with C Line (test code = 3574) present Lab Interpretation (test cod e = 97563-9) Normal [facility] CenterD-[id number] 13:53:00* Test Item Value Reference Range Interpretation Comments D-DIMER (test code = 5209423934) See_Comment H [Automated message] The system which [...] a diagnosis. Lab Interpretation (test code = 24114-2) Abnormal [facility] CenterPregnancy Test, [id number] 13:40:00* Test Item Value Reference Range Interpretation Comme nts PREG SERUM (test code = 1822354806) Negative MATTHEW (test code = MATTHEW) Less than 10 IU/L. ?If low titer or ectopic is suspected, resubmit specimen in 48-72 hours. [facility] CenterTroponin [id number] 13:36:00* Test Item Value Reference Range Interpretation Comme nts TROPONIN I (test code = 1874316163) <0.012 See_Comment [Automated message] The system which [...] biotin. ? Lab Interpretation (test code = 45073-9) [facility] 13:35:00* Test Item Value Reference Range Interpretation Comme nts APTT Patient (test code = 3173-2) See_Comment [Automated message] The system which generated this result transmitted reference range: 23 - 38 Seconds. The reference range was not used to interpret this result as normal/abnormal. MATTHEW (test code = MATTHEW) The [facility] patient population mean normal value for aPTT is 30 seconds. Lab Interpretation (test code = 58293-2) Normal [facility] CenterProth[facility] Time (PT) / [id number] 13:33:00 * Test Item Value Reference Range Interpretation Comme [facility] PROTIME PATIENT (test code = 5964-2) See_Comment [Automated messa ge] The system which generated this result transmitted reference range: 12.0 - 14.7 Seconds. The reference range was not used to interpret this result as normal/abnormal. INR (test code = 6301-6) Normal INR <1.1; Warfarin Therapeutic range 2.0 to 3.0 or 2.5 to 3.5, depending upon the indications. Lab Interpretation (test code = 77286-4) Normal [facility] CenterBasi Metabolic Panel (NA, K, CL, CO2, GLUCOSE, BUN, CREATININE, CA)2020-10-30 13:25:00* Test Item Value Reference Range Interpretation Comme [facility] NA (test code = 8217507269) 137 mmol/L 135-145 K (test code = 4609080752) 4.4 mmol/L 3.5-5 CL (test code = 4355686179) 101 mmol/L 98-108 CO2 TOTAL (test code = 7402683186) 28 mmol/L 23-31 AGAP (test code = 8911210116) 2-16 BUN (test code = 5619992548) 12 mg/dL 7-23 GLUCOSE (test code = 0859164744) 195 mg/dL 70-110 H CREATININE (test code = 7517455597) 0.42 mg/dL 0.5-1.04 L CALCIUM (test code = 8499827597) 9.2 mg/dL 8.6-10.6 eGFR Calculation (Non-) (test code = 3429116914) mL/min/1.73m2 eGFR Calculation () (test code = 4728521755) mL/min/1.73m2 MATTHEW (test code = MATTHEW) Association [...] imaging tests). Lab Interpretation (test code = 43735-9) Abnormal [facility] CenterHepatic Function Panel (ALB, T.PRO, BILI T, BU/BC, ALT, AST, ALK PHOS)2020-10-30 13:25:00* Test Item Value Reference Range Interpretation Comme nts TOTAL BILI (test code = 2030129354) 1.1 mg/dL 0.1-1.1 BILI UNCON (test code = 9507635007) 0.8 mg/dL 0.1-1.1 BILI CONJ (test code = 2639966961) 0.0 mg/dL 0-0.3 T PROTEIN (test code = 0913977953) 8.2 g/dL 6.3-8.2 ALBUMIN (test code = 6959571621) 4.2 g/dL 3.5-5 ALK PHOS (test code = 0563971579) 109 U/L 34-122 ALTv (test code = 1742-6) 23 U/L 5-35 AST(SGOT) (test code = 2550326004) 35 U/L 13-40 Lab Interpretation (test cod e = 05901-1) [facility] CenterAD,CLC OR LCC ONLY - INFLUENZA A & B DIRECT [id number] 13:21:00* Test Item Value Reference Range Interpretation Comme nts Influenza A (test code = 41521-8) Negative Negative Influenza B (test code = 86191-2) Negative Negative Lab Interpretation (test cod e = 75719-8) Normal [facility] STREP SCREEN FOR GROUP [id number] 13:21:00* Test Item Value Reference Range Interpretation Comme nts Streptococcus pyogenes (grou p A) antigen (test code = 02380-0) Negative Negative Lab Interpretation (test cod e = 62626-2) Normal [facility] CenterCOVID-[facility] (ID NOW RAPID TESTING)2020-10-30 13:18:00* Test Item Value Reference Range Interpretation Comme nts SARS-CoV-2 Rapid ID NOW (test code = 48676-1) Not Detected Not Detected MATTHEW (test code = MATTHEW) ID NOW COVID-19 As say is an isothermal nucleic acid amplification test intended for the qualitative detection of nucleic acid from SARS-CoV-2 viral RNA in nasopharyngeal (SECONDARY CONNECTOR ARMATURE) specimens. It is used under Emergency Use [...] clinically indicated. Lab Interpretation (test code = 81830-8) Normal [facility] with [id number] 13:05:00* Test Item Value Reference Range Interpretation [...] 32.4 g/dL 31.6-35.1 RDW-SD (test code = 53114-4) 41.0 fL 39-49.9 RDW-CV (test code = 788-0) 12.4 % 12-15.5 PLT (test code = 777-3) See_Comment H [Automated messa ge] The system which generated this result transmitted reference range: 166 - 358 10*3/?L. The reference range was not used to interpret this result as normal/abnormal. MPV (test code = 65742-9) 10.5 fL 9.5-12.9 NRBC/100 WBC (test code = 7569257684) See_Comment [Automated Roomtag ssage] The system which generated this result transmitted reference range: 0.0 - 10.0 /100 WBCs. The reference range was not used to interpret this result as normal/abnormal. NRBC x10^3 (test code = 7162675827) <0.01 See_Comment [Automated messa ge] The system which generated this result transmitted reference range: 10*3/?L. The reference range was not used to interpret this result as normal/abnormal. GRAN MAT (NEUT) % (test code = 770-8) 66.0 % IMM GRAN % (test code = 9369265590) 0.40 % LYMPH % (test code = 736-9) 19.5 % MONO % (test code = 5905-5) 9.3 % EOS % (test code = 713-8) 4.2 % BASO % (test code = 706-2) 0.6 % GRAN MAT x10^3(ANC) (test code = 3822604334) 7.63 10*3/uL 1.88-7.09 H IMM GRAN x10^3 (test code = 3883547514) 0.05 10*3/uL 0-0.06 LYMPH x10^3 (test code = 731-0) 2.26 10*3/uL 1.32-3.29 MONO x10^3 (test code = 742-7) 1.08 10*3/uL 0.33-0.92 H EOS x10^3 (test code = 711-2) 0.49 10*3/uL 0.03-0.39 H BASO x10^3 (test code = 704-7) 0.07 10*3/uL 0.01-0.07 Lab Interpretation (test code = 47866-9) [facility]normal [facility] CenterMAGNESIUM [ADDED]2020-10-12 00:00:00* Test Item Value Reference Range Interpretation Comme nts MAGNESIUM (test code = 2226) 2.0 MG/DL COMPREHENSIVE METABOLIC PANEL [ADDED]2020-10-12 00:00:00* Test Item Value Reference Range Interpretation Comme nts GLUCOSE (test code = 2217) 423 MG/DL BUN (test code = 2208) 11 MG/DL CREATININE (test code = 2214) 0.73 MG/DL eGFR AMER. (test cod e = 49845) 112 ML/MIN/1.73 eGFR NON- AMER. (test code = 65521) 97 ML/MIN/1.73 CALC BUN/CREAT (test code = [...] MG/DL eGFR AMER. (test cod e = 14836) 112 ML/MIN/1.73 eGFR NON- AMER. (test code = 06407) 97 ML/MIN/1.73 CALC BUN/CREAT (test code = [...] MG/DL eGFR AMER. (test cod e = 01683) 112 ML/MIN/1.73 eGFR NON- AMER. (test code = 61540) 97 ML/MIN/1.73 CALC BUN/CREAT (test code = [...] MG/DL eGFR AMER. (test cod e = 91577) 112 ML/MIN/1.73 eGFR NON- AMER. (test code = 62734) 97 ML/MIN/1.73 CALC BUN/CREAT (test code = [...] MG/DL eGFR AMER. (test cod e = 17292) 112 ML/MIN/1.73 eGFR NON- AMER. (test code = 29215) 97 ML/MIN/1.73 CALC BUN/CREAT (test code = [...] nts SARS-CoV-2 INTERPRETATION (t est code = 81782) NEGATIVE SOURCE (test code = 07408) NOT SPECIFIED SARS-CoV-2 (COVID-19) by RT-PCR (HIGH RISK)2020-10-06 00:00:00* Test Item Value Reference Range Interpretation Comme nts SARS-CoV-2 INTERPRETATION (t est code = 77872) NEGATIVE SOURCE (test code = 44999) NOT SPECIFIED SARS-CoV-2 (COVID-19) by RT-PCR (HIGH RISK)2020-10-06 00:00:00* Test Item Value Reference Range Interpretation Comme nts SARS-CoV-2 INTERPRETATION (t est code = 92756) NEGATIVE SOURCE (test code = 92019) NOT SPECIFIED SARS-CoV-2 (COVID-19) by RT-PCR (HIGH RISK)2020-10-06 00:00:00* Test Item Value Reference Range Interpretation Comme nts SARS-CoV-2 INTERPRETATION (t est code = 60222) NEGATIVE SOURCE (test code = 55980) NOT SPECIFIED SARS-CoV-2 (COVID-19) by RT-PCR (HIGH RISK)2020-10-06 00:00:00* Test Item Value Reference Range Interpretation Comme nts SARS-CoV-2 INTERPRETATION (t est code = 75703) NEGATIVE SOURCE (test code = 87424) NOT SPECIFIED [facility]XR CHEST 1 [id number] 00:19:17Grossly unchanged streaky opacities associated with known [...] reviewed this study and agree with the abovereport.[facility] CenterURINALYSIS 2020-09-26 23:37:00* Test Item Value Reference Range Interpretation Comme nts APPEARANCE (test code = 8181798925) Clear Clear COLOR (test code = 6520762922) Yellow Yellow PH (test code = 7530148281) 4.8-8.0 SP GRAVITY (test code = 2148804186) 1.003-1.030 GLU U QUAL (test code = 6047521674) Normal Normal BLOOD (test code = 2315518005) Negative Negative KETONES (test code = 8514714173) Negative Negative PROTEIN (test code = 2887-8) Negative Negative UROBILIN (test code = 3104956933) Normal Normal BILIRUBIN (test code = 2398481245) Negative Negative NITRITE (test code = 5982257034) Negative Negative LEUK CHASITY (test code = 7793549144) 500/uL Negative A RBC/HPF (test code = 8810814017) See_Comment [Automated [employer] ge] The system which generated this result transmitted reference range: 0 - 3 HPF. The reference range was not used to interpret this result as normal/abnormal. WBC/HPF (test code = 0217700651) See_Comment H [Automated [employer] ge] The system which generated this result transmitted reference range: 0 - 5 HPF. The reference range was not used to interpret this result as normal/abnormal. BACTERIA (test code = 8199667807) Few Negative A MUCOUS (test code = 5649633979) Slight Negative LPF A SQ EPITH (test code = 0670449799) HPF TRANS EPI (test code = 6195876932) <1 See_Comment [Automated Op[employer]wsTVa ge] The system which generated this result transmitted reference range: <=1 HPF. The reference range was not used to interpret this result as normal/abnormal. Lab Interpretation (test code = 19070-0) [facility]normal [facility] CenterTROPONIN [id number] 22:39:00* Test Item Value Reference Range Interpretation Comme nts TROPONIN I (test code = 1688502169) <0.012 See_Comment [Automated message] The system which [...] biotin. ? Lab Interpretation (test code = 51514-2) Normal [facility] CenterN-TERMINAL [id number] 22:36:00* Test Item Value Reference Range Interpretation Comme nts NT-proBNP (test code = 6644762964) 54 pg/mL See_Comment [Automated message] The system which generated this result transmitted reference range: <=125. The reference range was not used to interpret this result as normal/abnormal. MATTHEW (test code = MATTHEW) Biotin has been reported to cause a negative bias, interpret results relative to patient's use of biotin. Lab Interpretation (test code = 17467-9) Normal [facility] CenterCOMP. METABOLIC PANEL (48284)2020-09-26 22:28:00* Test Item Value Reference Range Interpretation Comme nts NA (test code = 7773166079) 137 mmol/L 135-145 K (test code = 2547214421) 3.2 mmol/L 3.5-5 L CL (test code = 6198172200) 97 mmol/L 98-108 L CO2 TOTAL (test code = 5347747244) 30 mmol/L 23-31 AGAP (test code = 0098236670) 2-16 BUN (test code = 5686769271) 9 mg/dL 7-23 GLUCOSE (test code = 0351229374) 191 mg/dL 70-110 H CREATININE (test code = 2204442966) 0.52 mg/dL 0.5-1.04 TOTAL BILI (test code = 9133623035) 0.8 mg/dL 0.1-1.1 CALCIUM (test code = 8102088573) 8.9 mg/dL 8.6-10.6 T PROTEIN (test code = 0781109743) 7.4 g/dL 6.3-8.2 ALBUMIN (test code = 4921033326) 4.1 g/dL 3.5-5 ALK PHOS (test code = 8141258512) 98 U/L 34-122 ALTv (test code = 1742-6) 19 U/L 5-35 AST(SGOT) (test code = 0015430358) 21 U/L 13-40 eGFR Calculation (Non-) (test code = 0323849304) mL/min/1.73m2 eGFR Calculation () (test code = 3573271709) mL/min/1.73m2 MATTHEW (test code = MATTHEW) Association [...] imaging tests). Lab Interpretation (test code = 38561-3) Abnormal [facility] CenterLIPASE2020-12-21 22:27:00* Test Item Value Reference Range Interpretation Comme nts LIPASE (test code = 2800466591) 90 U/L 0-220 Lab Interpretation (test cod e = 94770-8) Normal [facility] WITH [id number] 22:26:00* Test Item Value Reference Range Interpretation Comme nts WBC (test code = 6690-2) See_Comment [Automated [employer]] The system which generated this result transmitted reference range: 4.30 - 11.10 10*3/?L. The reference range was not used to interpret this result as normal/abnormal. RBC (test code = 789-8) See_Comment [Automated [employer]] The system which generated this result transmitted [...] 32.6 g/dL 31.6-35.1 RDW-SD (test code = 54198-7) 40.6 fL 39-49.9 RDW-CV (test code = 788-0) 12.4 % 12-15.5 PLT (test code = 777-3) See_Comment H [Automated messa ge] The system which generated this result transmitted reference range: 166 - 358 10*3/?L. The reference range was not used to interpret this result as normal/abnormal. MPV (test code = 77862-2) 10.3 fL 9.5-12.9 NRBC/100 WBC (test code = 7894090228) See_Comment [Automated me ssage] The system which generated this result transmitted reference range: 0.0 - 10.0 /100 WBCs. The reference range was not used to interpret this result as normal/abnormal. NRBC x10^3 (test code = 8662678908) <0.01 See_Comment [Automated messa ge] The system which generated this result transmitted reference range: 10*3/?L. The reference range was not used to interpret this result as normal/abnormal. GRAN MAT (NEUT) % (test code = 770-8) 65.8 % IMM GRAN % (test code = 3259729246) 0.50 % LYMPH % (test code = 736-9) 22.4 % MONO % (test code = 5905-5) 8.9 % EOS % (test code = 713-8) 2.1 % BASO % (test code = 706-2) 0.3 % GRAN MAT x10^3(ANC) (test code = 4656901673) 7.21 10*3/uL 1.88-7.09 H IMM GRAN x10^3 (test code = 8623014700) 0.06 10*3/uL 0-0.06 LYMPH x10^3 (test code = 731-0) 2.45 10*3/uL 1.32-3.29 MONO x10^3 (test code = 742-7) 0.98 10*3/uL 0.33-0.92 H EOS x10^3 (test code = 711-2) 0.23 10*3/uL 0.03-0.39 BASO x10^3 (test code = 704-7) 0.03 10*3/uL 0.01-0.07 Lab Interpretation (test code = 35140-0) Abnormal [facility]-CoV-2 (COVID-19) by RT-PCR (HIGH RISK) 2020-09-25 00:00:00* Test Item Value Reference Range Interpretation Comme nts SARS-CoV-2 INTERPRETATION (t est code = 05590) POSITIVE SOURCE (test code = 32078) NOT SPECIFIED SARS-CoV-2 (COVID-19) by RT-PCR (HIGH RISK)2020-09-25 00:00:00* Test Item Value Reference Range Interpretation Comme nts SARS-CoV-2 INTERPRETATION (t est code = 53622) POSITIVE SOURCE (test code = 43599) NOT SPECIFIED SARS-CoV-2 (COVID-19) by RT-PCR (HIGH RISK)2020-09-25 00:00:00* Test Item Value Reference Range Interpretation Comme nts SARS-CoV-2 INTERPRETATION (t est code = 83036) POSITIVE SOURCE (test code = 41128) NOT SPECIFIED SARS-CoV-2 (COVID-19) by RT-PCR (HIGH RISK)2020-09-25 00:00:00* Test Item Value Reference Range Interpretation Comme nts SARS-CoV-2 INTERPRETATION (t est code = 05303) POSITIVE SOURCE (test code = 23479) NOT SPECIFIED SARS-CoV-2 (COVID-19) by RT-PCR (HIGH RISK)2020-09-25 00:00:00* Test Item Value Reference Range Interpretation Comme nts SARS-CoV-2 INTERPRETATION (t est code = 34984) POSITIVE SOURCE (test code = 70991) NOT SPECIFIED Óscar Rose AustinCA CHEST PULMONARY [id number] 02:11:181. ?No acute pulmonary embolism. PROCEDURE: CT [...] abdomen: Unremarkable. IMPRESSION1. No acute pulmonary embolism. [facility] A-[id number] 01:20:00* Test Item Value Reference Range Interpretation Comments D-DIMER (test code = 6941405337) See_Comment H [Automated message] The system which [...] a diagnosis. Lab Interpretation (test code = 47922-3) [facility]normal [facility] 1 [id number] 23:44:22Slightly suboptimal lung volumes with perihilar streaky [...] reviewed this study and agree withthe above report.[facility] CenterCOVID[facility] (ID NOW RAPID TESTING)2020-09-01 23:26:00* Test Item Value Reference Range Interpretation Comme nts SARS-CoV-2 Rapid ID NOW (test code = 98170-0) Positive Not Detected A MATTHEW (test code = MATTHEW) ID NOW COVID-19 As say is an isothermal nucleic acid amplification test intended for the qualitative detection of nucleic acid from SARS-CoV-2 viral RNA in nasopharyngeal (SECONDARY CONNECTOR ARMATURE) specimens. It is used under Emergency Use [...] clinically indicated. Lab Interpretation (test code = 64188-0) Abnormal [facility] CenterADC,CLC OR L[facility] ONLY - INFLUENZA A & B DIRECT [id number] 23:26:00* Test Item Value Reference Range Interpretation Comme nts Influenza A (test code = 14433-9) Negative Negative Influenza B (test code = 16148-4) Negative Negative Lab Interpretation (test cod e = 04995-3) Normal [facility] CenterURINALYSIS2020-11-26 23:22:00* Test Item Value Reference Range Interpretation Comme nts APPEARANCE (test code = 0568746056) Clear Clear COLOR (test code = 1996703081) Yellow Yellow PH (test code = 2120015185) 4.8-8.0 SP GRAVITY (test code = 6518054291) 1.003-1.030 GLU U QUAL (test code = 0178746602) 500 mg/dL Normal A BLOOD (test code = 0623106177) Negative Negative KETONES (test code = 1687362427) Negative Negative PROTEIN (test code = 2887-8) 30 mg/dL Negative A UROBILIN (test code = 1284043645) Normal Normal BILIRUBIN (test code = 8824929612) Negative Negative NITRITE (test code = 4353872734) Negative Negative LEUK CHASITY (test code = 7646860039) 250/uL Negative A RBC/HPF (test code = 0551394498) See_Comment H [Automated [employer]] The system which generated this result transmitted reference range: 0 - 3 HPF. The reference range was not used to interpret this result as normal/abnormal. WBC/HPF (test code = 9463106201) See_Comment [Automated [employer]] The system which generated this result transmitted reference range: 0 - 5 HPF. The reference range was not used to interpret this result as normal/abnormal. BACTERIA (test code = 1868517869) Few Negative A MUCOUS (test code = 2339493905) Slight Negative LPF A SQ EPITH (test code = 0574613044) HPF Lab Interpretation (test code = 12171-3) Abnormal [facility] CenterN-TERMINAL [id number] 23:20:00* Test Item Value Reference Range Interpretation Comme nts NT-proBNP (test code = 7519300704) 38 pg/mL See_Comment [Automated message] The system which generated this result transmitted reference range: <=125. The reference range was not used to interpret this result as normal/abnormal. MATTHEW (test code = MATTHEW) Biotin has been reported to cause a negative bias, interpret results relative to patient's use of biotin. Lab Interpretation (test code = 33369-1) Normal [facility] CenterCOMP. METABOLIC PANEL (62691)2020-09-01 23:12:00* Test Item Value Reference Range Interpretation Comme nts NA (test code = 0188112312) 137 mmol/L 135-145 K (test code = 6962403724) 3.9 mmol/L 3.5-5 CL (test code = 4809718131) 100 mmol/L 98-108 CO2 TOTAL (test code = 4105992765) 29 mmol/L 23-31 AGAP (test code = 2162381495) 2-16 BUN (test code = 4325945106) 17 mg/dL 7-23 GLUCOSE (test code = 1464528901) 174 mg/dL 70-110 H CREATININE (test code = 1313087562) 0.56 mg/dL 0.5-1.04 TOTAL BILI (test code = 2182997008) 0.6 mg/dL 0.1-1.1 CALCIUM (test code = 9466114492) 9.2 mg/dL 8.6-10.6 T PROTEIN (test code = 7968717155) 7.9 g/dL 6.3-8.2 ALBUMIN (test code = 2382584825) 4.3 g/dL 3.5-5 ALK PHOS (test code = 7708350981) 101 U/L 34-122 ALTv (test code = 1742-6) 32 U/L 5-35 AST(SGOT) (test code = 5424398936) 28 U/L 13-40 eGFR Calculation (Non-) (test code = 4092623448) mL/min/1.73m2 eGFR Calculation () (test code = 9071172263) mL/min/1.73m2 MATTHEW (test code = MATTHEW) Association [...] imaging tests). Lab Interpretation (test code = 57581-6) Abnormal [facility] WITH [id number] 23:01:00* Test Item Value Reference Range Interpretation Comme nts WBC (test code = 6690-2) See_Comment [Automated [employer]] The system which generated this result transmitted reference range: 4.30 - 11.10 10*3/?L. The reference range was not used to interpret this result as normal/abnormal. RBC (test code = 789-8) See_Comment [Automated [employer]] The system which generated this result [...] 32.9 g/dL 31.6-35.1 RDW-SD (test code = 00008-5) 41.6 fL 39-49.9 RDW-CV (test code = 788-0) 12.6 % 12-15.5 PLT (test code = 777-3) See_Comment [Automated [employer]] The system which generated this result transmitted reference range: 166 - 358 10*3/?L. The reference range was not used to interpret this result as normal/abnormal. MPV (test code = 83481-1) 10.0 fL 9.5-12.9 NRBC/100 WBC (test code = 4698095586) See_Comment [Automated [employer] ssage] The system which generated this result transmitted reference range: 0.0 - 10.0 /100 WBCs. The reference range was not used to interpret this result as normal/abnormal. NRBC x10^3 (test code = 0214362581) <0.01 See_Comment [Automated messa ge] The system which generated this result transmitted reference range: 10*3/?L. The reference range was not used to interpret this result as normal/abnormal. GRAN MAT (NEUT) % (test code = 770-8) 77.1 % IMM GRAN % (test code = 4036898707) 0.40 % LYMPH % (test code = 736-9) 10.9 % MONO % (test code = 5905-5) 10.4 % EOS % (test code = 713-8) 0.7 % BASO % (test code = 706-2) 0.5 % GRAN MAT x10^3(ANC) (test code = 2288047376) 6.59 10*3/uL 1.88-7.09 IMM GRAN x10^3 (test code = 4766300803) 0.03 10*3/uL 0-0.06 LYMPH x10^3 (test code = 731-0) 0.93 10*3/uL 1.32-3.29 L MONO x10^3 (test code = 742-7) 0.89 10*3/uL 0.33-0.92 EOS x10^3 (test code = 711-2) 0.06 10*3/uL 0.03-0.39 BASO x10^3 (test code = 704-7) 0.04 10*3/uL 0.01-0.07 Lab Interpretation (test code = 51037-1) [facility] [id number] 22:55:00* Test Item Value Reference Range Interpretation Comme nts LACTIC ACID (test code = 1158978158) 1.33 mmol/L [facility] [id number] 22:52:00* Test Item Value Reference Range Interpretation Comme nts POCT PREG (test code = 1605) negative On board controls acceptable with C Line (test code = 3574) present POCT PREG LOT # (test code = 3575) [id number] POCT PREG TEST DATE ( test code = 3576) 02/03/2022 Lab Interpretation (test cod e = 00395-1) [facility] [id number] 00:00:00* Test Item Value Reference Range Interpretation Comme nts HEMOGLOBIN A1c (test code = 49064) 7.0 % C-REACTIVE [id number] 00:00:00* Test Item Value Reference Range Interpretation Comme nts C-REACTIVE PROTEIN (test cod e = 3513) 0.7 MG/DL SEDIMENTATION [id number] 00:00:00* Test Item Value Reference Range Interpretation Comme nts SEDIMENTATION RATE (test cod e = 1017) 22 MM/HOUR URIC [id number] 00:00:00* Test Item Value Reference Range Interpretation Comme nts URIC ACID (test code = 2233) 3.6 MG/DL SUKHI REFLEX AUTOIMMUNE AB [id number] 00:00:00* Test Item Value Reference Range Interpretation Comme nts ANTI-NUCLEAR ANTIBODIES (michael t code = 3506) NEGATIVE COMPREHENSIVE METABOLIC [id number] 00:00:00* Test Item Value Reference Range Interpretation Comme nts GLUCOSE (test code = 2217) 101 MG/DL BUN (test code = 2208) 10 MG/DL CREATININE (test code = 2214) 0.62 MG/DL eGFR AMER. (test cod e = 63799) 123 ML/MIN/1.73 eGFR NON- AMER. (test code = 61469) 106 ML/MIN/1.73 CALC BUN/CREAT (test code = [...] (test code = 2219) 196 U/L HEMOGLOBIN [id number] 00:00:00* Test Item Value Reference Range Interpretation Comme nts HEMOGLOBIN A1c (test code = 70484) 7.0 % C-REACTIVE [id number] 00:00:00* Test Item Value Reference Range Interpretation Comme nts C-REACTIVE PROTEIN (test cod e = 3513) 0.7 MG/DL SEDIMENTATION [id number] 00:00:00* Test Item Value Reference Range Interpretation Comme nts SEDIMENTATION RATE (test cod e = 1017) 22 MM/HOUR URIC [id number] 00:00:00* Test Item Value Reference Range Interpretation Comme nts URIC ACID (test code = 2233) 3.6 MG/DL SUKHI REFLEX AUTOIMMUNE AB [id number] 00:00:00* Test Item Value Reference Range Interpretation Comme nts ANTI-NUCLEAR ANTIBODIES (michael t code = 3506) NEGATIVE COMPREHENSIVE METABOLIC [id number] 00:00:00* Test Item Value Reference Range Interpretation Comme nts GLUCOSE (test code = 2217) 101 MG/DL BUN (test code = 2208) 10 MG/DL CREATININE (test code = 2214) 0.62 MG/DL eGFR AMER. (test cod e = 75974) 123 ML/MIN/1.73 eGFR NON- AMER. (test code = 68555) 106 ML/MIN/1.73 CALC BUN/CREAT (test code = [...] (test code = 2219) 196 U/L HEMOGLOBIN [id number] 00:00:00* Test Item Value Reference Range Interpretation Comme nts HEMOGLOBIN A1c (test code = 55570) 7.0 % C-REACTIVE [id number] 00:00:00* Test Item Value Reference Range Interpretation Comme nts C-REACTIVE PROTEIN (test cod e = 3513) 0.7 MG/DL SEDIMENTATION [id number] 00:00:00* Test Item Value Reference Range Interpretation Comme nts SEDIMENTATION RATE (test cod e = 1017) 22 MM/HOUR URIC [id number] 00:00:00* Test Item Value Reference Range Interpretation Comme nts URIC ACID (test code = 2233) 3.6 MG/DL SUKHI REFLEX AUTOIMMUNE AB [id number] 00:00:00* Test Item Value Reference Range Interpretation Comme nts ANTI-NUCLEAR ANTIBODIES (michael t code = 3506) NEGATIVE COMPREHENSIVE METABOLIC [id number] 00:00:00* Test Item Value Reference Range Interpretation Comme nts GLUCOSE (test code = 2217) 101 MG/DL BUN (test code = 2208) 10 MG/DL CREATININE (test code = 2214) 0.62 MG/DL eGFR AMER. (test cod e = 01987) 123 ML/MIN/1.73 eGFR NON- AMER. (test code = 20227) 106 ML/MIN/1.73 CALC BUN/CREAT (test code = [...] (test code = 2219) 196 U/L HEMOGLOBIN [id number] 00:00:00* Test Item Value Reference Range Interpretation Comme nts HEMOGLOBIN A1c (test code = 42658) 7.0 % C-REACTIVE [id number] 00:00:00* Test Item Value Reference Range Interpretation Comme nts C-REACTIVE PROTEIN (test cod e = 3513) 0.7 MG/DL SEDIMENTATION [id number] 00:00:00* Test Item Value Reference Range Interpretation Comme nts SEDIMENTATION RATE (test cod e = 1017) 22 MM/HOUR URIC [id number] 00:00:00* Test Item Value Reference Range Interpretation Comme nts URIC ACID (test code = 2233) 3.6 MG/DL SUKHI REFLEX AUTOIMMUNE AB [id number] 00:00:00* Test Item Value Reference Range Interpretation Comme nts ANTI-NUCLEAR ANTIBODIES (michael t code = 3506) NEGATIVE COMPREHENSIVE METABOLIC [id number] 00:00:00* Test Item Value Reference Range Interpretation Comme nts GLUCOSE (test code = 2217) 101 MG/DL BUN (test code = 2208) 10 MG/DL CREATININE (test code = 2214) 0.62 MG/DL eGFR AMER. (test cod e = 39522) 123 ML/MIN/1.73 eGFR NON- AMER. (test code = 16583) 106 ML/MIN/1.73 CALC BUN/CREAT (test code = [...] (test code = 2219) 196 U/L C-REACTIVE [id number] 00:00:00* Test Item Value Reference Range Interpretation Comme nts C-REACTIVE PROTEIN (test cod e = 3513) 0.7 MG/DL Óscar ZavalaSEDIMENTATION [id number] 00:00:00* Test Item Value Reference Range Interpretation Comme nts SEDIMENTATION RATE (test cod e = 1017) 22 MM/HOUR Óscar ZavalaURIC [id number] 00:00:00* Test Item Value Reference Range Interpretation Comme nts URIC ACID (test code = 2233) 3.6 MG/DL Óscar ZavalaANA REFLEX AUTOIMMUNE AB [id number] 00:00:00* Test Item Value Reference Range Interpretation Comme nts ANTI-NUCLEAR ANTIBODIES (michael t code = 3506) NEGATIVE Óscar ZavalaCOMPREHENSIVE METABOLIC [id number] 00:00:00* Test Item Value Reference Range Interpretation Comme nts GLUCOSE (test code = 2217) 101 MG/DL BUN (test code = 2208) 10 MG/DL CREATININE (test code = 2214) 0.62 MG/DL eGFR AMER. (test cod e = 33065) 123 ML/MIN/1.73 eGFR NON- AMER. (test code = 91837) 106 ML/MIN/1.73 CALC BUN/CREAT (test code = [...] code = 2219) 196 U/L Óscar ZavalaHEMOGLOBIN [id number] 00:00:00* Test Item Value Reference Range Interpretation Comme nts HEMOGLOBIN A1c (test code = 09112) 7.0 % Óscar Rose AustinCT ABDOMEN PELVIS W [id number] 04:56:15No acute intra- abdominal or intrapelvic process. [...] reviewed this study and agree with the abovereport.[facility] [id number] 03:06:00* Test Item Value Reference Range Interpretation Comme nts APPEARANCE (test code = 9501410853) Hazy Clear A COLOR (test code = 0591286053) Loren Yellow A PH (test code = 0379923763) 4.8-8.0 SP GRAVITY (test code = 1813765941) 1.003-1.030 GLU U QUAL (test code = 6035648961) Normal Normal BLOOD (test code = 1333141730) Negative Negative KETONES (test code = 3545180667) Negative Negative PROTEIN (test code = 2887-8) 100 mg/dL Negative A UROBILIN (test code = 2465908772) 2.0 mg/dL Normal A BILIRUBIN (test code = 8526401985) Negative Negative NITRITE (test code = 3404914607) Negative Negative LEUK CHASITY (test code = 8750305522) Negative Negative RBC/HPF (test code = 6873333985) See_Comment [Automated [employer]] The system which generated this result transmitted reference range: 0 - 3 HPF. The reference range was not used to interpret this result as normal/abnormal. WBC/HPF (test code = 0272639167) See_Comment [[employer]] The system which generated this result transmitted reference range: 0 - 5 HPF. The reference range was not used to interpret this result as normal/abnormal. BACTERIA (test code = 3840171179) Few Negative A MUCOUS (test code = 3928812899) Moderate Negative LPF A SQ EPITH (test code = 9355122423) [facility] Lab Interpretation (test code = 07131-3) [facility] MET[facility]OL[facility] PAN[facility] (51843)2020-07-26 02:41:00* Test Item Value Reference Range Interpretation Comme nts NA (test code = 9571208035) 139 mmol/L 135-145 K (test code = 2005579827) 3.4 mmol/L 3.5-5 L CL (test code = 8960128692) 99 mmol/L 98-108 CO2 TOTAL (test code = 4896516995) 31 mmol/L 23-31 AGAP (test code = 5118415722) 2-16 BUN (test code = 6454430693) 18 mg/dL 7-23 GLUCOSE (test code = 3624678817) 151 mg/dL 70-110 H CREATININE (test code = 5204634143) 0.59 mg/dL 0.5-1.04 TOTAL BILI (test code = 8159657714) 0.8 mg/dL 0.1-1.1 CALCIUM (test code = 2722545854) 9.5 mg/dL 8.6-10.6 T PROTEIN (test code = 3809473607) 7.8 g/dL 6.3-8.2 ALBUMIN (test code = 7799522086) 4.2 g/dL 3.5-5 ALK PHOS (test code = 2571896879) 91 U/L 34-122 ALTv (test code = 1742-6) 24 U/L 5-35 AST(SGOT) (test code = 8437944942) 25 U/L 13-40 eGFR Calculation (Non-) (test code = 6383526106) mL/min/1.73m2 eGFR Calculation () (test code = 6253292441) mL/min/1.73m2 MATTHEW (test code = MATTHEW) Association [...] imaging tests). Lab Interpretation (test code = 26388-1) [facility] 02:40:00* Test Item Value Reference Range Interpretation Comme nts LIPASE (test code = 0622591549) 149 U/L 0-220 Lab Interpretation (test cod e = 07013-3) Normal [facility] CenterCB WITH [id number] 02:25:00* Test Item Value Reference Range Interpretation [...] 33.3 g/dL 31.6-35.1 RDW-SD (test code = 45900-5) 40.0 fL 39-49.9 RDW-CV (test code = 788-0) 12.4 % 12-15.5 PLT (test code = 777-3) See_Comment H [Automated message] The system which generated this result transmitted reference range: 166 - 358 10*3/?L. The reference range was not used to interpret this result as normal/abnormal. MPV (test code = 81172-4) 9.7 fL 9.5-12.9 NRBC/100 WBC (test code = 9847143239) See_Comment [Automated message] The system which generated this result transmitted reference range: 0.0 - 10.0 /100 WBCs. The reference range was not used to interpret this result as normal/abnormal. NRBC x10^3 (test code = 3705644062) <0.01 See_Comment [Automated message] The system which generated this result transmitted reference range: 10*3/?L. The reference range was not used to interpret this result as normal/abnormal. GRAN MAT (NEUT) % (test code = 770-8) 80.1 % IMM GRAN % (test code = 0512525160) 0.60 % LYMPH % (test code = 736-9) 10.7 % MONO % (test code = 5905-5) 6.3 % EOS % (test code = 713-8) 1.9 % BASO % (test code = 706-2) 0.4 % GRAN MAT x10^3(ANC) (test code = 6281839859) 14.29 10*3/uL 1.88-7.09 H IMM GRAN x10^3 (test code = 7079453819) 0.10 10*3/uL 0-0.06 H LYMPH x10^3 (test code = 731-0) 1.90 10*3/uL 1.32-3.29 MONO x10^3 (test code = 742-7) 1.12 10*3/uL 0.33-0.92 H EOS x10^3 (test code = 711-2) 0.34 10*3/uL 0.03-0.39 BASO x10^3 (test code = 704-7) 0.07 10*3/uL 0.01-0.07 Lab Interpretation (test code = 07741-4) [facility]normal [facility] [id number] 00:00:00* Test Item Value Reference Range Interpretation Comme nts HEMOGLOBIN A1c (test code = 95628) 10.1 % HEMOGLOBIN [id number] 00:00:00* Test Item Value Reference Range Interpretation Comme nts HEMOGLOBIN A1c (test code = 76319) 10.1 % HEMOGLOBIN [id number] 00:00:00* Test Item Value Reference Range Interpretation Comme nts HEMOGLOBIN A1c (test code = 69386) 10.1 % HEMOGLOBIN [id number] 00:00:00* Test Item Value Reference Range Interpretation Comme nts HEMOGLOBIN A1c (test code = 08577) 10.1 % HEMOGLOBIN [id number] 00:00:00* Test Item Value Reference Range Interpretation Comme nts HEMOGLOBIN A1c (test code = 31614) 10.1 % Óscar F AustinHEMOGLOBIN [id number] 00:00:00* Test Item Value Reference Range Interpretation Comme nts HEMOGLOBIN A1c (test code = 90870) 12.0 % LIPID [id number] 00:00:00* Test Item Value Reference Range Interpretation Comme nts CHOLESTEROL (test code = 2210) 202 MG/DL TRIGLYCERIDES (test code = 2232) 147 MG/DL HDL CHOLESTEROL (test code = 2220) 57 MG/DL CALC LDL CHOL (test code = 2237) 119 MG/DL RISK RATIO LDL/HDL (test cod e = 2238) 2.09 RATIO COMPREHENSIVE METABOLIC [id number] 00:00:00* Test Item Value Reference Range Interpretation Comme nts GLUCOSE (test code = 2217) 310 MG/DL BUN (test code = 2208) 15 MG/DL CREATININE (test code = 2214) 0.55 MG/DL eGFR AMER. (test cod e = 37561) 129 ML/MIN/1.73 eGFR NON- AMER. (test code = 06525) 111 ML/MIN/1.73 CALC BUN/CREAT (test code = [...] 20 U/L VITAMIN B 12 AND FOLIC [id number] 00:00:00* Test Item Value Reference Range Interpretation Comme nts VITAMIN B-12 (test code = 2840) 708 PG/ML FOLIC ACID (test code = 2695) 11.9 UG/L CBC W/AUTO [id number] 00:00:00* Test Item Value Reference Range Interpretation [...] (test code = 1015) 364 K/UL HEMOGLOBIN [id number] 00:00:00* Test Item Value Reference Range Interpretation Comme nts HEMOGLOBIN A1c (test code = 44618) 12.0 % LIPID [id number] 00:00:00* Test Item Value Reference Range Interpretation Comme nts CHOLESTEROL (test code = 2210) 202 MG/DL TRIGLYCERIDES (test code = 2232) 147 MG/DL HDL CHOLESTEROL (test code = 2220) 57 MG/DL CALC LDL CHOL (test code = 2237) 119 MG/DL RISK RATIO LDL/HDL (test cod e = 2238) 2.09 RATIO COMPREHENSIVE METABOLIC [id number] 00:00:00* Test Item Value Reference Range Interpretation Comme nts GLUCOSE (test code = 2217) 310 MG/DL BUN (test code = 2208) 15 MG/DL CREATININE (test code = 2214) 0.55 MG/DL eGFR AMER. (test cod e = 53115) 129 ML/MIN/1.73 eGFR NON- AMER. (test code = 32601) 111 ML/MIN/1.73 CALC BUN/CREAT (test code = [...] 20 U/L VITAMIN B 12 AND FOLIC [id number] 00:00:00* Test Item Value Reference Range Interpretation Comme nts VITAMIN B-12 (test code = 2840) 708 PG/ML FOLIC ACID (test code = 2695) 11.9 UG/L CBC W/AUTO [id number] 00:00:00* Test Item Value Reference Range Interpretation [...] (test code = 1015) 364 K/UL HEMOGLOBIN [id number] 00:00:00* Test Item Value Reference Range Interpretation Comme nts HEMOGLOBIN A1c (test code = 25959) 12.0 % LIPID [id number] 00:00:00* Test Item Value Reference Range Interpretation Comme nts CHOLESTEROL (test code = 2210) 202 MG/DL TRIGLYCERIDES (test code = 2232) 147 MG/DL HDL CHOLESTEROL (test code = 2220) 57 MG/DL CALC LDL CHOL (test code = 2237) 119 MG/DL RISK RATIO LDL/HDL (test cod e = 2238) 2.09 RATIO COMPREHENSIVE METABOLIC [id number] 00:00:00* Test Item Value Reference Range Interpretation Comme nts GLUCOSE (test code = 2217) 310 MG/DL BUN (test code = 2208) 15 MG/DL CREATININE (test code = 2214) 0.55 MG/DL eGFR AMER. (test cod e = 55285) 129 ML/MIN/1.73 eGFR NON- AMER. (test code = 74404) 111 ML/MIN/1.73 CALC BUN/CREAT (test code = [...] 20 U/L VITAMIN B 12 AND FOLIC [id number] 00:00:00* Test Item Value Reference Range Interpretation Comme nts VITAMIN B-12 (test code = 2840) 708 PG/ML FOLIC ACID (test code = 2695) 11.9 UG/L CBC W/AUTO [id number] 00:00:00* Test Item Value Reference Range Interpretation [...] (test code = 1015) 364 K/UL HEMOGLOBIN [id number] 00:00:00* Test Item Value Reference Range Interpretation Comme nts HEMOGLOBIN A1c (test code = 31525) 12.0 % LIPID [id number] 00:00:00* Test Item Value Reference Range Interpretation Comme nts CHOLESTEROL (test code = 2210) 202 MG/DL TRIGLYCERIDES (test code = 2232) 147 MG/DL HDL CHOLESTEROL (test code = 2220) 57 MG/DL CALC LDL CHOL (test code = 2237) 119 MG/DL RISK RATIO LDL/HDL (test cod e = 2238) 2.09 RATIO COMPREHENSIVE METABOLIC [id number] 00:00:00* Test Item Value Reference Range Interpretation Comme nts GLUCOSE (test code = 2217) 310 MG/DL BUN (test code = 2208) 15 MG/DL CREATININE (test code = 2214) 0.55 MG/DL eGFR AMER. (test cod e = 95729) 129 ML/MIN/1.73 eGFR NON- AMER. (test code = 53015) 111 ML/MIN/1.73 CALC BUN/CREAT (test code = [...] 20 U/L VITAMIN B 12 AND FOLIC [id number] 00:00:00* Test Item Value Reference Range Interpretation Comme nts VITAMIN B-12 (test code = 2840) 708 PG/ML FOLIC ACID (test code = 2695) 11.9 UG/L CBC W/AUTO [id number] 00:00:00* Test Item Value Reference Range Interpretation [...] (test code = 1015) 364 K/UL HEMOGLOBIN [id number] 00:00:00* Test Item Value Reference Range Interpretation Comme nts HEMOGLOBIN A1c (test code = 37815) 12.0 % Óscar ZavalaLIPID [id number] 00:00:00* Test Item Value Reference Range Interpretation Comme nts CHOLESTEROL (test code = 2210) 202 MG/DL TRIGLYCERIDES (test code = 2232) 147 MG/DL HDL CHOLESTEROL (test code = 2220) 57 MG/DL CALC LDL CHOL (test code = 2237) 119 MG/DL RISK RATIO LDL/HDL (test cod e = 2238) 2.09 RATIO Óscar ZavalaCOMPREHENSIVE METABOLIC [id number] 00:00:00* Test Item Value Reference Range Interpretation Comme nts GLUCOSE (test code = 2217) 310 MG/DL BUN (test code = 2208) 15 MG/DL CREATININE (test code = 2214) 0.55 MG/DL eGFR AMER. (test cod e = 00224) 129 ML/MIN/1.73 eGFR NON- AMER. (test code = 76438) 111 ML/MIN/1.73 CALC BUN/CREAT (test code = [...] U/L Óscar ZavalaVITAMIN B 12 AND FOLIC [id number] 00:00:00* Test Item Value Reference Range Interpretation Comme nts VITAMIN B-12 (test code = 2840) 708 PG/ML FOLIC ACID (test code = 2695) 11.9 UG/L Óscar ZavalaCBC W/AUTO [id number] 00:00:00* Test Item Value Reference Range Interpretation [...] nts SARS-CoV-2 INTERPRETATION (t est code = 41288) NEGATIVE SOURCE (test code = 01091) NOT SPECIFIED SARS-CoV-2 (COVID-19) by RT-PCR (HIGH RISK)2020-04-01 00:00:00* Test Item Value Reference Range Interpretation Comme nts SARS-CoV-2 INTERPRETATION (t est code = 08014) NEGATIVE SOURCE (test code = 33323) NOT SPECIFIED SARS-CoV-2 (COVID-19) by RT-PCR (HIGH RISK)2020-04-01 00:00:00* Test Item Value Reference Range Interpretation Comme nts SARS-CoV-2 INTERPRETATION (t est code = 94496) NEGATIVE SOURCE (test code = 83779) NOT SPECIFIED SARS-CoV-2 (COVID-19) by RT-PCR (HIGH RISK)2020-04-01 00:00:00* Test Item Value Reference Range Interpretation Comme nts SARS-CoV-2 INTERPRETATION (t est code = 85004) NEGATIVE SOURCE (test code = 74779) NOT SPECIFIED SARS-CoV-2 (COVID-19) by RT-PCR (HIGH RISK)2020-04-01 00:00:00* Test Item Value Reference Range Interpretation Comme nts SARS-CoV-2 INTERPRETATION (t est code = 45985) NEGATIVE SOURCE (test code = 78115) NOT SPECIFIED Óscar Rose AustinPAP TEST, THINPREP, [id number] 00:00:00* Test Item Value Reference Range Interpretation Comme nts SOURCE: (test code = 8001) Cervical/Endocervical SLIDES: (test code = 8011) 1 LMP: (test code = 8021) MIRENA SPECIMEN ADEQUACY: (test code = 72135) (NOTE) INTERPRETATION: (test code = 62624) NILM/NO EPITH. ABNORMALITY;SEE BELOW OTHER COMMENTS: (test code = 8081) (NOTE) CLINICAL MASSAGE THERAPIST: (test code = 8101) BETTY Cline(ASCP)IAC QC TECHNOLOGIST: (test code = 8111) BOYD Gabriel(ASCP),[facility] LOCATION: (test code = 06087) (NOTE) CPT: (test code = 8140) (NOTE) PAP TEST, THINPREP, [id number] 00:00:00* Test Item Value Reference Range Interpretation Comme nts SOURCE: (test code = 8001) Cervical/Endocervical SLIDES: (test code = 8011) 1 LMP: (test code = 8021) MIRENA SPECIMEN ADEQUACY: (test code = 12056) (NOTE) INTERPRETATION: (test code = 59642) NILM/NO EPITH. ABNORMALITY;SEE BELOW OTHER COMMENTS: (test code = 8081) (NOTE) CLINICAL MASSAGE THERAPIST: (test code = 8101) BETTY Cline(ASCP)IAC QC TECHNOLOGIST: (test code = 8111) BOYD Gabriel(ASCP),[facility] LOCATION: (test code = 64570) (NOTE) CPT: (test code = 8140) (NOTE) PAP TEST, THINPREP, [id number] 00:00:00* Test Item Value Reference Range Interpretation Comme nts SOURCE: (test code = 8001) Cervical/Endocervical SLIDES: (test code = 8011) 1 LMP: (test code = 8021) MIRENA SPECIMEN ADEQUACY: (test code = 69222) (NOTE) INTERPRETATION: (test code = 53109) NILM/NO EPITH. ABNORMALITY;SEE BELOW OTHER COMMENTS: (test code = 8081) (NOTE) CLINICAL MASSAGE THERAPIST: (test code = 8101) BETTY Cline(ASCP)IAC QC TECHNOLOGIST: (test code = 8111) BOYD Gabriel(ASCP),[facility] LOCATION: (test code = 01910) (NOTE) CPT: (test code = 8140) (NOTE) PAP TEST, THINPREP, [id number] 00:00:00* Test Item Value Reference Range Interpretation Comme nts SOURCE: (test code = 8001) Cervical/Endocervical SLIDES: (test code = 8011) 1 LMP: (test code = 8021) MIRENA SPECIMEN ADEQUACY: (test code = 01188) (NOTE) INTERPRETATION: (test code = 87533) NILM/NO EPITH. ABNORMALITY;SEE BELOW OTHER COMMENTS: (test code = 8081) (NOTE) CLINICAL MASSAGE THERAPIST: (test code = 8101) BETTY Cline(ASCP)IAC QC TECHNOLOGIST: (test code = 8111) BOYD Gabriel(ASCP),[facility] LOCATION: (test code = 69324) (NOTE) CPT: (test code = 8140) (NOTE) PAP TEST, THINPREP, [id number] 00:00:00* Test Item Value Reference Range Interpretation Comme nts SOURCE: (test code = 8001) Cervical/Endocervical SLIDES: (test code = 8011) 1 LMP: (test code = 8021) MIRENA SPECIMEN ADEQUACY: (test code = 56939) (NOTE) INTERPRETATION: (test code = 37160) NILM/NO EPITH. ABNORMALITY;SEE BELOW OTHER COMMENTS: (test code = 8081) (NOTE) CLINICAL MASSAGE THERAPIST: (test code = 8101) BETTY Cline(ASCP)IAC QC TECHNOLOGIST: (test code = 8111) BOYD Gabriel(ASCP),[facility] LOCATION: (test code = 55990) (NOTE) CPT: (test code = 8140) (NOTE) Óscar Rose AustinHPV HIGH RISK WITH GENOTYPE, [id number] 00:00:00* Test Item Value Reference Range Interpretation Comme nts HPV HIGH RISK INTERP (test c ode = 20890) NEGATIVE HPV 16 (test code = 53574) NEGATIVE HPV 18 (test code = 81631) NEGATIVE HPV, HR, OTHER GENOTYPES (te st code = 80956) NEGATIVE HPV HIGH RISK WITH GENOTYPE, [id number] 00:00:00* Test Item Value Reference Range Interpretation Comme nts HPV HIGH RISK INTERP (test c ode = 29402) NEGATIVE HPV 16 (test code = 15118) NEGATIVE HPV 18 (test code = 76303) NEGATIVE HPV, HR, OTHER GENOTYPES (te st code = 82872) NEGATIVE HPV HIGH RISK WITH GENOTYPE, [id number] 00:00:00* Test Item Value Reference Range Interpretation Comme nts HPV HIGH RISK INTERP (test c ode = 62473) NEGATIVE HPV 16 (test code = 10139) NEGATIVE HPV 18 (test code = 00319) NEGATIVE HPV, HR, OTHER GENOTYPES (te st code = 09677) NEGATIVE HPV HIGH RISK WITH GENOTYPE, [id number] 00:00:00* Test Item Value Reference Range Interpretation Comme nts HPV HIGH RISK INTERP (test c ode = 89695) NEGATIVE HPV 16 (test code = 02036) NEGATIVE HPV 18 (test code = 72298) NEGATIVE HPV, HR, OTHER GENOTYPES (te st code = 52041) NEGATIVE HPV HIGH RISK WITH GENOTYPE, [id number] 00:00:00* Test Item Value Reference Range Interpretation Comme nts HPV HIGH RISK INTERP (test c ode = 87406) NEGATIVE HPV 16 (test code = 21614) NEGATIVE HPV 18 (test code = 76791) NEGATIVE HPV, HR, OTHER GENOTYPES (te st code = 23746) NEGATIVE Óscar F AustinGC AND CHLAMYDIA AMPLIFIED, [id number] 00:00:00* Test Item Value Reference Range Interpretation Comme nts GONORRHEA, TMA (test code = 61478) NEGATIVE CHLAMYDIA, TMA (test code = 22502) NEGATIVE GC AND CHLAMYDIA AMPLIFIED, [id number] 00:00:00* Test Item Value Reference Range Interpretation Comme nts GONORRHEA, TMA (test code = 98661) NEGATIVE CHLAMYDIA, TMA (test code = 46306) NEGATIVE GC AND CHLAMYDIA AMPLIFIED, [id number] 00:00:00* Test Item Value Reference Range Interpretation Comme nts GONORRHEA, TMA (test code = 50213) NEGATIVE CHLAMYDIA, TMA (test code = 42178) NEGATIVE GC AND CHLAMYDIA AMPLIFIED, [id number] 00:00:00* Test Item Value Reference Range Interpretation Comme nts GONORRHEA, TMA (test code = 50863) NEGATIVE CHLAMYDIA, TMA (test code = 32693) NEGATIVE GC AND CHLAMYDIA AMPLIFIED, [id number] 00:00:00* Test Item Value Reference Range Interpretation Comme nts GONORRHEA, TMA (test code = 16943) NEGATIVE CHLAMYDIA, TMA (test code = 77035) NEGATIVE Óscar Rose LucasHEMOGLOBIN [id number] 00:00:00* Test Item Value Reference Range Interpretation Comme nts HEMOGLOBIN A1c (test code = 76558) 11.9 % HEMOGLOBIN [id number] 00:00:00* Test Item Value Reference Range Interpretation Comme nts HEMOGLOBIN A1c (test code = 40461) 11.9 % HEMOGLOBIN [id number] 00:00:00* Test Item Value Reference Range Interpretation Comme nts HEMOGLOBIN A1c (test code = 86603) 11.9 % HEMOGLOBIN [id number] 00:00:00* Test Item Value Reference Range Interpretation Comme nts HEMOGLOBIN A1c (test code = 20816) 11.9 % HEMOGLOBIN [id number] 00:00:00* Test Item Value Reference Range Interpretation Comme nts HEMOGLOBIN A1c (test code = 29422) 11.9 % Óscar ZavalaCOMPREHENSIVE METABOLIC [id number] 00:00:00* Test Item Value Reference Range Interpretation Comme nts GLUCOSE (test code = 2217) 202 MG/DL BUN (test code = 2208) 9 MG/DL CREATININE (test code = 2214) 0.50 MG/DL eGFR AMER. (test cod e = 12772) 135 ML/MIN/1.73 eGFR NON- AMER. (test code = 99027) 116 ML/MIN/1.73 CALC BUN/CREAT (test code = [...] code = 2219) 20 U/L COMPREHENSIVE METABOLIC [id number] 00:00:00* Test Item Value Reference Range Interpretation Comme nts GLUCOSE (test code = 2217) 202 MG/DL BUN (test code = 2208) 9 MG/DL CREATININE (test code = 2214) 0.50 MG/DL eGFR AMER. (test cod e = 77871) 135 ML/MIN/1.73 eGFR NON- AMER. (test code = 40735) 116 ML/MIN/1.73 CALC BUN/CREAT (test code = [...] code = 2219) 20 U/L COMPREHENSIVE METABOLIC [id number] 00:00:00* Test Item Value Reference Range Interpretation Comme nts GLUCOSE (test code = 2217) 202 MG/DL BUN (test code = 2208) 9 MG/DL CREATININE (test code = 2214) 0.50 MG/DL eGFR AMER. (test cod e = 06536) 135 ML/MIN/1.73 eGFR NON- AMER. (test code = 35241) 116 ML/MIN/1.73 CALC BUN/CREAT (test code = [...] code = 2219) 20 U/L COMPREHENSIVE METABOLIC [id number] 00:00:00* Test Item Value Reference Range Interpretation Comme nts GLUCOSE (test code = 2217) 202 MG/DL BUN (test code = 2208) 9 MG/DL CREATININE (test code = 2214) 0.50 MG/DL eGFR AMER. (test cod e = 19286) 135 ML/MIN/1.73 eGFR NON- AMER. (test code = 57789) 116 ML/MIN/1.73 CALC BUN/CREAT (test code = [...] code = 2219) 20 U/L COMPREHENSIVE METABOLIC [id number] 00:00:00* Test Item Value Reference Range Interpretation Comme nts GLUCOSE (test code = 2217) 202 MG/DL BUN (test code = 2208) 9 MG/DL CREATININE (test code = 2214) 0.50 MG/DL eGFR AMER. (test cod e = 63445) 135 ML/MIN/1.73 eGFR NON- AMER. (test code = 35945) 116 ML/MIN/1.73 CALC BUN/CREAT (test code = [...] = 2219) 20 U/L Óscar Rose AustinHEMOGLOBIN [id number] 00:00:00* Test Item Value Reference Range Interpretation Comme nts HEMOGLOBIN A1c (test code = 35352) 11.2 % HEMOGLOBIN [id number] 00:00:00* Test Item Value Reference Range Interpretation Comme nts HEMOGLOBIN A1c (test code = 85537) 11.2 % HEMOGLOBIN [id number] 00:00:00* Test Item Value Reference Range Interpretation Comme nts HEMOGLOBIN A1c (test code = 56544) 11.2 % HEMOGLOBIN [id number] 00:00:00* Test Item Value Reference Range Interpretation Comme nts HEMOGLOBIN A1c (test code = 64536) 11.2 % HEMOGLOBIN [id number] 00:00:00* Test Item Value Reference Range Interpretation Comme nts HEMOGLOBIN A1c (test code = 07875) 11.2 % Óscar Villalpando TEST, THINPREP, [id number] 00:00:00* Test Item Value Reference Range Interpretation Comme nts SOURCE: (test code = 8001) Cervical/Endocervical SLIDES: (test code = 8011) 1 LMP: (test code = 8021) SPECIMEN ADEQUACY: (test code = 65891) (NOTE) INTERPRETATION: (test code = 76560) NO EPITHELIAL ABNORMALITY SEE BELOW OTHER COMMENTS: (test code = 8081) (NOTE) CLINICAL MASSAGE THERAPIST: (test code = 8101) BETTY Wilson(ASCP)IAC QC TECHNOLOGIST: (test code = 8111) BOYD Gabriel(ASCP),IAC LOCATION: (test code = 82183) (NOTE) CPT: (test code = 8140) (NOTE) PAP TEST, THINPREP, [id number] 00:00:00* Test Item Value Reference Range Interpretation Comme nts SOURCE: (test code = 8001) Cervical/Endocervical SLIDES: (test code = 8011) 1 LMP: (test code = 8021) SPECIMEN ADEQUACY: (test code = 14548) (NOTE) INTERPRETATION: (test code = 34985) NO EPITHELIAL ABNORMALITY SEE BELOW OTHER COMMENTS: (test code = 8081) (NOTE) CLINICAL MASSAGE THERAPIST: (test code = 8101) BETTY Wilson(ASCP)IAC QC TECHNOLOGIST: (test code = 8111) BOYD Gabriel(ASCP),IAC LOCATION: (test code = 18813) (NOTE) CPT: (test code = 8140) (NOTE) PAP TEST, THINPREP, [id number] 00:00:00* Test Item Value Reference Range Interpretation Comme nts SOURCE: (test code = 8001) Cervical/Endocervical SLIDES: (test code = 8011) 1 LMP: (test code = 8021) SPECIMEN ADEQUACY: (test code = 86531) (NOTE) INTERPRETATION: (test code = 43282) NO EPITHELIAL ABNORMALITY SEE BELOW OTHER COMMENTS: (test code = 8081) (NOTE) CLINICAL MASSAGE THERAPIST: (test code = 8101) BETTY Wilson(ASCP)IAC QC TECHNOLOGIST: (test code = 8111) BOYD Gabriel(ASCP),IAC LOCATION: (test code = 91288) (NOTE) CPT: (test code = 8140) (NOTE) PAP TEST, THINPREP, [id number] 00:00:00* Test Item Value Reference Range Interpretation Comme nts SOURCE: (test code = 8001) Cervical/Endocervical SLIDES: (test code = 8011) 1 LMP: (test code = 8021) SPECIMEN ADEQUACY: (test code = 98339) (NOTE) INTERPRETATION: (test code = 69738) NO EPITHELIAL ABNORMALITY SEE BELOW OTHER COMMENTS: (test code = 8081) (NOTE) CLINICAL MASSAGE THERAPIST: (test code = 8101) BETTY Wilson(ASCP)IAC QC TECHNOLOGIST: (test code = 8111) BOYD Gabriel(ASCP),[facility] LOCATION: (test code = 38602) (NOTE) CPT: (test code = 8140) (NOTE) PAP TEST, THINPREP, [id number] 00:00:00* Test Item Value Reference Range Interpretation Comme nts SOURCE: (test code = 8001) Cervical/Endocervical SLIDES: (test code = 8011) 1 LMP: (test code = 8021) SPECIMEN ADEQUACY: (test code = 12405) (NOTE) INTERPRETATION: (test code = 85901) NO EPITHELIAL ABNORMALITY SEE BELOW OTHER COMMENTS: (test code = 8081) (NOTE) CLINICAL MASSAGE THERAPIST: (test code = 8101) BETTY Wilson(ASCP)IAC QC TECHNOLOGIST: (test code = 8111) BOYD Gabriel(ASCP),[facility] LOCATION: (test code = 05803) (NOTE) CPT: (test code = 8140) (NOTE) Óscar Rose AustinHPV HIGH RISK WITH GENOTYPE, [id number] 00:00:00* Test Item Value Reference Range Interpretation Comme nts HPV HIGH RISK INTERP (test c ode = 88699) POSITIVE HPV 16 (test code = 69894) NEGATIVE HPV 18 (test code = 85155) NEGATIVE HPV, HR, OTHER GENOTYPES (te st code = 07784) POSITIVE HPV HIGH RISK WITH GENOTYPE, [id number] 00:00:00* Test Item Value Reference Range Interpretation Comme nts HPV HIGH RISK INTERP (test c ode = 26369) POSITIVE HPV 16 (test code = 72198) NEGATIVE HPV 18 (test code = 00761) NEGATIVE HPV, HR, OTHER GENOTYPES (te st code = 03138) POSITIVE HPV HIGH RISK WITH GENOTYPE, [id number] 00:00:00* Test Item Value Reference Range Interpretation Comme nts HPV HIGH RISK INTERP (test c ode = 16428) POSITIVE HPV 16 (test code = 50545) NEGATIVE HPV 18 (test code = 40143) NEGATIVE HPV, HR, OTHER GENOTYPES (te st code = 26317) POSITIVE HPV HIGH RISK WITH GENOTYPE, [id number] 00:00:00* Test Item Value Reference Range Interpretation Comme nts HPV HIGH RISK INTERP (test c ode = 96093) POSITIVE HPV 16 (test code = 64825) NEGATIVE HPV 18 (test code = 37008) NEGATIVE HPV, HR, OTHER GENOTYPES (te st code = 87721) POSITIVE HPV HIGH RISK WITH GENOTYPE, [id number] 00:00:00* Test Item Value Reference Range Interpretation Comme nts HPV HIGH RISK INTERP (test c ode = 30624) POSITIVE HPV 16 (test code = 85196) NEGATIVE HPV 18 (test code = 48588) NEGATIVE HPV, HR, OTHER GENOTYPES (te st code = 82736) POSITIVE Óscar Rose AustinLIPID [id number] 00:00:00* Test Item Value Reference Range Interpretation Comme nts CHOLESTEROL (test code = 2210) 167 MG/DL TRIGLYCERIDES (test code = 2232) 118 MG/DL HDL CHOLESTEROL (test code = 2220) 57 MG/DL CALC LDL CHOL (test code = 2237) 86 MG/DL RISK RATIO LDL/HDL (test cod e = 2238) 1.52 RATIO CBC W/AUTO [id number] 00:00:00* Test Item Value Reference Range Interpretation [...] (test code = 1015) 360 K/UL HEMOGLOBIN [id number] 00:00:00* Test Item Value Reference Range Interpretation Comme nts HEMOGLOBIN A1c (test code = 60535) 9.5 % THYROID II PROFILE (T3U, T4, T7, TSH)2016-04-13 00:00:00* Test Item Value Reference Range Interpretation Comme nts T3 UPTAKE (test code = 2817) 27.5 % T4 (THYROXINE) (test code = 2819) 8.7 UG/DL CALCULATED T7 (FTI) (test co de = 2820) 2.39 TSH (test code = 2821) 2.3 UIU/ML COMPREHENSIVE METABOLIC [id number] 00:00:00* Test Item Value Reference Range Interpretation Comme nts GLUCOSE (test code = 2217) 252 MG/DL BUN (test code = 2208) 13 MG/DL CREATININE (test code = 2214) 0.57 MG/DL eGFR AMER. (test cod e = 57744) 131 ML/MIN/1.73 eGFR NON- AMER. (test code = 99064) 113 ML/MIN/1.73 CALC BUN/CREAT (test code = [...] (test code = 2219) 16 U/L LIPID [id number] 00:00:00* Test Item Value Reference Range Interpretation Comme nts CHOLESTEROL (test code = 2210) 167 MG/DL TRIGLYCERIDES (test code = 2232) 118 MG/DL HDL CHOLESTEROL (test code = 2220) 57 MG/DL CALC LDL CHOL (test code = 2237) 86 MG/DL RISK RATIO LDL/HDL (test cod e = 2238) 1.52 RATIO CBC W/AUTO [id number] 00:00:00* Test Item Value Reference Range Interpretation [...] (test code = 1015) 360 K/UL HEMOGLOBIN [id number] 00:00:00* Test Item Value Reference Range Interpretation Comme nts HEMOGLOBIN A1c (test code = 62209) 9.5 % THYROID II PROFILE (T3U, T4, T7, TSH)2016-04-13 00:00:00* Test Item Value Reference Range Interpretation Comme nts T3 UPTAKE (test code = 2817) 27.5 % T4 (THYROXINE) (test code = 2819) 8.7 UG/DL CALCULATED T7 (FTI) (test co de = 2820) 2.39 TSH (test code = 2821) 2.3 UIU/ML COMPREHENSIVE METABOLIC [id number] 00:00:00* Test Item Value Reference Range Interpretation Comme nts GLUCOSE (test code = 2217) 252 MG/DL BUN (test code = 2208) 13 MG/DL CREATININE (test code = 2214) 0.57 MG/DL eGFR AMER. (test cod e = 33996) 131 ML/MIN/1.73 eGFR NON- AMER. (test code = 83028) 113 ML/MIN/1.73 CALC BUN/CREAT (test code = [...] (test code = 2219) 16 U/L LIPID [id number] 00:00:00* Test Item Value Reference Range Interpretation Comme nts CHOLESTEROL (test code = 2210) 167 MG/DL TRIGLYCERIDES (test code = 2232) 118 MG/DL HDL CHOLESTEROL (test code = 2220) 57 MG/DL CALC LDL CHOL (test code = 2237) 86 MG/DL RISK RATIO LDL/HDL (test cod e = 2238) 1.52 RATIO CBC W/AUTO [id number] 00:00:00* Test Item Value Reference Range Interpretation [...] (test code = 1015) 360 K/UL HEMOGLOBIN [id number] 00:00:00* Test Item Value Reference Range Interpretation Comme nts HEMOGLOBIN A1c (test code = 31036) 9.5 % THYROID II PROFILE (T3U, T4, T7, TSH)2016-04-13 00:00:00* Test Item Value Reference Range Interpretation Comme nts T3 UPTAKE (test code = 2817) 27.5 % T4 (THYROXINE) (test code = 2819) 8.7 UG/DL CALCULATED T7 (FTI) (test co de = 2820) 2.39 TSH (test code = 2821) 2.3 UIU/ML COMPREHENSIVE METABOLIC [id number] 00:00:00* Test Item Value Reference Range Interpretation Comme nts GLUCOSE (test code = 2217) 252 MG/DL BUN (test code = 2208) 13 MG/DL CREATININE (test code = 2214) 0.57 MG/DL eGFR AMER. (test cod e = 12741) 131 ML/MIN/1.73 eGFR NON- AMER. (test code = 12429) 113 ML/MIN/1.73 CALC BUN/CREAT (test code = [...] (test code = 2219) 16 U/L LIPID [id number] 00:00:00* Test Item Value Reference Range Interpretation Comme nts CHOLESTEROL (test code = 2210) 167 MG/DL TRIGLYCERIDES (test code = 2232) 118 MG/DL HDL CHOLESTEROL (test code = 2220) 57 MG/DL CALC LDL CHOL (test code = 2237) 86 MG/DL RISK RATIO LDL/HDL (test cod e = 2238) 1.52 RATIO CBC W/AUTO [id number] 00:00:00* Test Item Value Reference Range Interpretation [...] (test code = 1015) 360 K/UL HEMOGLOBIN [id number] 00:00:00* Test Item Value Reference Range Interpretation Comme nts HEMOGLOBIN A1c (test code = 81098) 9.5 % THYROID II PROFILE (T3U, T4, T7, TSH)2016-04-13 00:00:00* Test Item Value Reference Range Interpretation Comme nts T3 UPTAKE (test code = 2817) 27.5 % T4 (THYROXINE) (test code = 2819) 8.7 UG/DL CALCULATED T7 (FTI) (test co de = 2820) 2.39 TSH (test code = 2821) 2.3 UIU/ML COMPREHENSIVE METABOLIC [id number] 00:00:00* Test Item Value Reference Range Interpretation Comme nts GLUCOSE (test code = 2217) 252 MG/DL BUN (test code = 2208) 13 MG/DL CREATININE (test code = 2214) 0.57 MG/DL eGFR AMER. (test cod e = 97492) 131 ML/MIN/1.73 eGFR NON- AMER. (test code = 61272) 113 ML/MIN/1.73 CALC BUN/CREAT (test code = [...] code = 2219) 16 U/L COMPREHENSIVE METABOLIC [id number] 00:00:00* Test Item Value Reference Range Interpretation Comme nts GLUCOSE (test code = 2217) 252 MG/DL BUN (test code = 2208) 13 MG/DL CREATININE (test code = 2214) 0.57 MG/DL eGFR AMER. (test cod e = 88815) 131 ML/MIN/1.73 eGFR NON- AMER. (test code = 24895) 113 ML/MIN/1.73 CALC BUN/CREAT (test code = [...] (test code = 2219) 16 U/L Óscar F AustinLIPID [id number] 00:00:00* Test Item Value Reference Range Interpretation Comme nts CHOLESTEROL (test code = 2210) 167 MG/DL TRIGLYCERIDES (test code = 2232) 118 MG/DL HDL CHOLESTEROL (test code = 2220) 57 MG/DL CALC LDL CHOL (test code = 2237) 86 MG/DL RISK RATIO LDL/HDL (test cod e = 2238) 1.52 RATIO Óscar ZavalaCBC W/AUTO [id number] 00:00:00* Test Item Value Reference Range Interpretation [...] code = 1015) 360 K/UL Óscar ZavalaHEMOGLOBIN [id number] 00:00:00* Test Item Value Reference Range Interpretation Comme maci HEMOGLOBIN A1c (test code = 03517) 9.5 % Óscar ZavalaTHYROID II PROFILE (T3U, [...] (test code = 2821) 1.3 UIU/ML LIPID [id number] 00:00:00* Test Item Value Reference Range Interpretation Comme nts CHOLESTEROL (test code = 2210) 167 MG/DL TRIGLYCERIDES (test code = 2232) 113 MG/DL HDL CHOLESTEROL (test code = 2220) 53 MG/DL CALCULATED LDL CHOL (test co de = 2237) 91 MG/DL RISK RATIO LDL/HDL (test cod e = 2238) 1.72 RATIO COMPREHENSIVE METABOLIC [id number] 00:00:00* Test Item Value Reference Range Interpretation Comme nts GLUCOSE (test code = 2217) 195 MG/DL BUN (test code = 2208) 14 MG/DL CREATININE (test code = 2214) 0.55 MG/DL eGFR AMER. (test cod e = 34471) 132 ML/MIN/1.73 eGFR NON- AMER. (test code = 61899) 114 ML/MIN/1.73 CALCULATED BUN/CREAT (test code = [...] (test code = 2219) 21 U/L HEMOGLOBIN [id number] 00:00:00* Test Item Value Reference Range Interpretation Comme nts HEMOGLOBIN A1c (test code = 59031) 9.9 % CBC W/AUTO [id number] 00:00:00* Test Item Value Reference Range Interpretation [...] (test code = 2821) 1.3 UIU/ML LIPID [id number] 00:00:00* Test Item Value Reference Range Interpretation Comme nts CHOLESTEROL (test code = 2210) 167 MG/DL TRIGLYCERIDES (test code = 2232) 113 MG/DL HDL CHOLESTEROL (test code = 2220) 53 MG/DL CALCULATED LDL CHOL (test co de = 2237) 91 MG/DL RISK RATIO LDL/HDL (test cod e = 2238) 1.72 RATIO COMPREHENSIVE METABOLIC [id number] 00:00:00* Test Item Value Reference Range Interpretation Comme nts GLUCOSE (test code = 2217) 195 MG/DL BUN (test code = 2208) 14 MG/DL CREATININE (test code = 2214) 0.55 MG/DL eGFR AMER. (test cod e = 41032) 132 ML/MIN/1.73 eGFR NON- AMER. (test code = 78576) 114 ML/MIN/1.73 CALCULATED BUN/CREAT (test code = [...] (test code = 2219) 21 U/L HEMOGLOBIN [id number] 00:00:00* Test Item Value Reference Range Interpretation Comme nts HEMOGLOBIN A1c (test code = 82339) 9.9 % CBC W/AUTO [id number] 00:00:00* Test Item Value Reference Range Interpretation [...] (test code = 2821) 1.3 UIU/ML LIPID [id number] 00:00:00* Test Item Value Reference Range Interpretation Comme nts CHOLESTEROL (test code = 2210) 167 MG/DL TRIGLYCERIDES (test code = 2232) 113 MG/DL HDL CHOLESTEROL (test code = 2220) 53 MG/DL CALCULATED LDL CHOL (test co de = 2237) 91 MG/DL RISK RATIO LDL/HDL (test cod e = 2238) 1.72 RATIO COMPREHENSIVE METABOLIC [id number] 00:00:00* Test Item Value Reference Range Interpretation Comme nts GLUCOSE (test code = 2217) 195 MG/DL BUN (test code = 2208) 14 MG/DL CREATININE (test code = 2214) 0.55 MG/DL eGFR AMER. (test cod e = 32173) 132 ML/MIN/1.73 eGFR NON- AMER. (test code = 97949) 114 ML/MIN/1.73 CALCULATED BUN/CREAT (test code = [...] (test code = 2219) 21 U/L HEMOGLOBIN [id number] 00:00:00* Test Item Value Reference Range Interpretation Comme [facility] HEMOGLOBIN A1c (test code = 65537) 9.9 % CBC W/AUTO [id number] 00:00:00* Test Item Value Reference Range Interpretation Comme [facility] WBC (test code = 1001) 7.1 K/UL [...] (test code = 2821) 1.3 UIU/ML LIPID [id number] 00:00:00* Test Item Value Reference Range Interpretation Comme nts CHOLESTEROL (test code = 2210) 167 MG/DL TRIGLYCERIDES (test code = 2232) 113 MG/DL HDL CHOLESTEROL (test code = 2220) 53 MG/DL CALCULATED LDL CHOL (test co de = 2237) 91 MG/DL RISK RATIO LDL/HDL (test cod e = 2238) 1.72 RATIO COMPREHENSIVE METABOLIC [id number] 00:00:00* Test Item Value Reference Range Interpretation Comme nts GLUCOSE (test code = 2217) 195 MG/DL BUN (test code = 2208) 14 MG/DL CREATININE (test code = 2214) 0.55 MG/DL eGFR AMER. (test cod e = 49566) 132 ML/MIN/1.73 eGFR NON- AMER. (test code = 12204) 114 ML/MIN/1.73 CALCULATED BUN/CREAT (test code = [...] (test code = 2219) 21 U/L HEMOGLOBIN [id number] 00:00:00* Test Item Value Reference Range Interpretation Comme nts HEMOGLOBIN A1c (test code = 47529) 9.9 % CBC W/AUTO [id number] 00:00:00* Test Item Value Reference Range Interpretation [...] code = 1015) 352 K/UL CBC W/AUTO [id number] 00:00:00* Test Item Value Reference Range Interpretation [...] code = 2821) 1.3 UIU/ML Óscar ZavalaLIPID [id number] 00:00:00* Test Item Value Reference Range Interpretation Comme nts CHOLESTEROL (test code = 2210) 167 MG/DL TRIGLYCERIDES (test code = 2232) 113 MG/DL HDL CHOLESTEROL (test code = 2220) 53 MG/DL CALCULATED LDL CHOL (test co de = 2237) 91 MG/DL RISK RATIO LDL/HDL (test cod e = 2238) 1.72 RATIO Óscar ZavalaCOMPREHENSIVE METABOLIC [id number] 00:00:00* Test Item Value Reference Range Interpretation Comme nts GLUCOSE (test code = 2217) 195 MG/DL BUN (test code = 2208) 14 MG/DL CREATININE (test code = 2214) 0.55 MG/DL eGFR AMER. (test cod e = 13563) 132 ML/MIN/1.73 eGFR NON- AMER. (test code = 77216) 114 ML/MIN/1.73 CALCULATED BUN/CREAT (test code = [...] code = 2219) 21 U/L Óscar ZavalaHEMOGLOBIN [id number] 00:00:00* Test Item Value Reference Range Interpretation Comme nts HEMOGLOBIN A1c (test code = 67959) 9.9 % Óscar Rose Lucas Notes Date/Time Note Provider Source 2025-03-07 04:09:14 Pt given printed and verbal discharge instructions regarding acute cystitis without hematuria, dysuria, and hiatal hernia. Prescriptions provided. Discussed antibiotic therapy and to take until all completed unless adverse reaction occurs - if occurs, discontinue medication and follow up with pcp/seek medical attention. Pt verbalized understanding of instructions, pt awake alert oriented, resp reg unlabored, skin w/d, color appropriate for race, moves all ext well, pt encouraged to follow up with pcp. Advised to seek medical attention for new/prolonged/worsening of symptoms. No adverse reaction to meds given in ER noted upon discharge. PIV d'cd, dressing to site, catheter in tact. Awake, alert oriented, resp reg unlabored, skin w/d, pt leaving amb with steady gait, in no apparent distress. Adelita Ferguson RN [facility] 2025-03-07 04:02:28 [facility] ED Transfer of Care Note. Off-going Physician:SECONDARY CONNECTOR ARMATURE [place] Time of Transfer of Care: 4:02 AM Summary: Stew Wei is a 54 year old female presenting with chief complaint of dysuria. Pending prior to disposition: Labs and Imaging Current interventions: Medications morpHINE (4 mg/mL) injection 4 mg (4 mg Slow IV Push Given 03/07/25 0230) levoFLOXacin (LEVAQUIN) tablet 500 mg (500 mg Oral Given 03/07/25 0330) Results: Labs Reviewed CBC WITH DIFF - Abnormal; Notable for the following components: Result Value RDW-CV 11.9 (*) All other components within normal limits URINALYSIS - Abnormal; Notable for the following components: APPEARANCE Cloudy (*) GLU U QUAL 500 mg/dL (*) BLOOD 1+ (*) PROTEIN 30 mg/dL (*) UROBILIN 4.0 mg/dL (*) LEUK CHASITY 500/uL (*) RBC/HPF 11 (*) WBC/HPF >182 (*) BACTERIA Many (*) WBC CLUMPS 11 (*) All other components within normal limits COMP. METABOLIC PANEL (47741) - Abnormal; Notable for the following components: GLUCOSE 305 (*) ALK PHOS 137 (*) All other components within normal limits CT Abdomen pelvis wo contrast Final Result Impression: 1. 1. Findings compatible with cystitis. Urothelial thickening of the right ureter likely reflects infection as well. No evidence of urolithiasis or obstructive uropathy. 2. Mild hepatomegaly. 3. Small hiatal hernia. 4. IUD. [facility]: [id number] RL: [id number] End of Report Procedures: Procedures Additional Notes: ED Course as of 03/07/25 0403 Sun Mar 07, 2025 [address] Bass pending labs and CT [PD] ED Course User Index [PD] Carie Chanel NP Diagnosis/Impression as of 03/07/25 040 Dysuria Acute cystitis without hematuria Hiatal hernia Medical Decision Making Stew Wei is a 54 year old female whopresents to the ED with dysuria Problems Addressed: Acute cystitis without hematuria: acute illness or injury Details: Abx administered in the ED Will prescribe additional abx Hiatal hernia: chronic illness or injury Amount and/or Complexity of Data Reviewed Labs: ordered. Decision-making details documented in ED Course. Radiology: ordered. Decision-making details documented in ED Course. Risk OTC drugs. Prescription drug management. Parenteral controlled substances. Disposition: Discharged Home Social Determinants of Health: None ED Disposition ED Disposition Discharge Condition Stable Comment -- Contact information for follow-up Óscar F [facility], [facility] Relationship: PCP - General [address] [place] [phone] [facility] 2025-03-07 01:48:24 CC: pressure in the back and abd, pain with urination. Went to upper GI doc and they said her urine was cloudy, got tested and her urine was fine pt states. 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 Patient advised to seek consultation from vascular specialists, however patient requesting to continue care at [...] legally responsible person has agreed to proceed TARIAN AIDE [facility], [id number] 10:59:43Upcoming Encounters Scheduled Orders Name Type Priority [...] on patient's age to complete this topic [facility], [id number] 10:59:43 Diagnosis Onychomycosis - Primary Dermatophytosis of nail Abnormal foot finding [facility]wayOoenhma2422-93-74 22:47:59 Awake, alert oriented X4, respiratory even [...] noted upon discharge. Pt [facility] with steady gait. ES [facility]3036[facility] 19:50:38 Pt presents to ED ambulatory with c/o sore throat, "not feeling well", and fever that started last night. ES Philippe [id number] 00:00:00 Óscar Saunders [facility]
[2025-07-05] MEDS ORDERED: ASPIRIN 81 MG CHEWABLE TABLET ONE (21:08)
[2025-07-05] MEDS ORDERED: NA CHLORIDE 0.9% 500 ML ONE (21:08)
[2025-07-05 21:18] LABS: Absolute Lymphocytes (CBC) 3.3 K/uL (0.7-4.9); Hematocrit 37.0 % (36.0-45.0); Hemoglobin 12.2 g/dL (12.0-15.0); MCH 28.9 pg (27.0-35.0); MCHC 33.1 g/dL (32.0-36.0); MCV 87.1 fL (80-100); MPV 8.4 fL (7.6-11.3); Nucleated RBC Absolute Count 0.0 (0-0); Nucleated Red Blood Cells % 0.0 % (0-0); RBC Red Blood Cell Count 4.24 M/uL (3.86-4.86); White Blood Count 8.80 thou/uL (4.3-10.9)
[2025-07-05 21:30] LABS: PT Prothrombin Time 12.7 SECONDS (10-13.0); Protime INR 1.13
[2025-07-05 21:34] LABS: Urine Culture Reflex Order REFLEXED; Urine Microscopic Reflex YN ORDER UMIC
--- NOTE | 2025-07-05 21:34 | RAD REPORT ---
Procedure: Chest Single View HISTORY: Chest pain COMPARISON: January 2025 FINDINGS: The lungs appear clear of acute infiltrate. No significant pleural effusion noted. The heart is normal size. IMPRESSION: No acute abnormality is displayed.
[2025-07-05 21:48] LABS: ALT/SGPT 43 U/L (13-56); AST/SGOT 19 U/L (15-37); Albumin 3.3 g/dL (3.4-5.0); Albumin/Globulin Ratio 0.8 (1.1-1.8); Alkaline Phosphatase 117 U/L (45-117); Anion Gap 6.7 mEq/L (5.0-15.0); BUN Blood Urea Nitrogen 15 mg/dL (7-18); Globulin 4.3 g/dL (2.3-3.5); Glucose Level 155 mg/dL (74-106); Lipase 81 U/L (13-75); Magnesium 2.1 mg/dL (1.6-2.4); NT PRO-BNP 28 pg/mL (<125); Potassium 3.7 mEq/L (3.5-5.1); Troponin High Sensitivity 3.7 pg/mL (<58.9)
[2025-07-05 21:51] LABS: Bilirubin Indirect, Calculated 0.2 mg/dL (0.2-0.8)
[2025-07-05] MEDS ORDERED: CEFTRIAXONE 1000 MG/VIAL ONE (22:00)
[2025-07-05] MEDS ORDERED: CLOPIDOGREL 75 MG TABLET ONE (22:14)
[2025-07-05] MEDS ORDERED: METOPROLOL TAR 25 MG TAB ONE (22:14)
--- NOTE | 2025-07-05 22:44 | EDPHYS ---
Physician Documentation [facility] Name: Tova Ames Age: 55 yrs Sex: Female : 1970 Arrival Date: 07/05/2025 Time: 20:39 Bed 8 Private MD: DOMENICO Physician Cody Ron HPI: 07/05 21:39 This 55 yrs old Female presents to ER via Ambulatory with complaints of Chest brian discomfort, Finger Numbness. 21:39 The patient or guardian reports chest pain that is located primarily in the anterior brian chest wall, bilaterally. Onset: 1 day(s) ago. The patient presents with a history of irregular heart beat, heart racing. Context: The symptoms occur with anxiety, with light activity. Modifying factors: The symptoms are aggravated by nothing. The symptoms are alleviated by nothing. SHAKEY. The pain does not radiate. Onset: The symptoms/episode began/occurred just prior to arrival. CUSTOMER LIAISON: 20:51 unknown kb4 Historical: - Allergies: 20:51 Aspirin; kb4 20:51 Ibuprofen; kb4 20:51 Influenza Virus Vaccines; kb4 20:51 PENICILLINS; kb4 - Immunization history:: Adult Immunizations up to date. - Infectious Disease History:: Denies. - Social history:: Smoking status: Patient denies any tobacco usage or history of. Patient uses alcohol, occasionally. - Family history:: not pertinent. ROS: 21:39 Constitutional: Negative for fever, chills, and weight loss, Eyes: Negative for injury, brian pain, redness, and discharge, ENT: Negative for injury, pain, and discharge, Neck: Negative for injury, pain, and swelling, Respiratory: Negative for shortness of breath, cough, wheezing, and pleuritic chest pain, Abdomen/GI: Negative for abdominal pain, nausea, vomiting, diarrhea, and constipation, Back: Negative for injury and pain, : Negative for injury, bleeding, discharge, and swelling, MS/Extremity: Negative for injury and deformity, Skin: Negative for injury, rash, and discoloration, Neuro: Negative for headache, weakness, numbness, tingling, and seizure, Psych: Negative for depression, anxiety, suicide ideation, homicidal ideation, and hallucinations, Allergy/Immunology: Negative for hives, rash, and allergies, Endocrine: Negative for neck swelling, polydipsia, polyuria, polyphagia, and marked weight changes, Hematologic/Lymphatic: Negative for swollen nodes, abnormal bleeding, and unusual bruising, 21:39 Cardiovascular: Positive for palpitations, 21:39 Neuro: Positive for SHAKEY, Exam: 21:41 Constitutional: This is a well developed, well nourished patient who is awake, alert, brian and in no acute distress. Head/Face: Normocephalic, atraumatic. Eyes: Pupils equal round and reactive to light, extra-ocular motions intact. Lids and lashes normal. Conjunctiva and sclera are non-icteric and not injected. Cornea within normal limits. Periorbital areas with no swelling, redness, or edema. ENT: Nares patent. No nasal discharge, no septal abnormalities noted. Tympanic membranes are normal and external auditory canals are clear. Oropharynx with no redness, swelling, or masses, exudates, or evidence of obstruction, uvula midline. Mucous membranes moist. Neck: Trachea midline, no thyromegaly or masses palpated, and no cervical lymphadenopathy. Supple, full range of motion without nuchal rigidity, or vertebral point tenderness. No Meningismus. Chest/axilla: Normal chest wall appearance and motion. Nontender with no deformity. No lesions are appreciated. Cardiovascular: Regular rate and rhythm with a normal S1 and S2. No gallops, murmurs, or rubs. Normal PMI, no JVD. No pulse deficits. Respiratory: Lungs have equal breath sounds bilaterally, clear to auscultation and percussion. No rales, rhonchi or wheezes noted. No increased work of breathing, no retractions or nasal flaring. Abdomen/GI: Soft, non-tender, with normal bowel sounds. No distension or tympany. No guarding or rebound. No evidence of tenderness throughout. Back: No spinal tenderness. No costovertebral tenderness. Full range of motion. Skin: Warm, dry with normal turgor. Normal color with no rashes, no lesions, and no evidence of cellulitis. MS/ Extremity: Pulses equal, no cyanosis. Neurovascular intact. Full, normal range of motion., bilateral aka Neuro: Awake and alert, GCS 15, oriented to person, place, time, and situation. Cranial nerves II-XII grossly intact. Motor strength 5/5 in all extremities. Sensory grossly intact. Cerebellar exam normal. Normal gait. Psych: Awake, alert, with orientation to person, place and time. Behavior, mood, and affect are within normal limits. 21:41 ECG was reviewed by the Attending Physician. 21:41 Musculoskeletal/extremity: Extremities: all appear grossly normal, with no appreciated pain with palpation, ROM: no acute changes, Circulation is intact in all extremities. Sensation intact. Compartment Syndrome exam of affected extremity: is normal. Weight bearing: able to fully bear weight, DVT Exam: No signs of deep vein thrombosis. no pain, no swelling, no tenderness, negative Homans' sign noted on exam, no appreciated bluish discoloration, no erythema, no increased warmth, 22:23 ECG was reviewed by the Attending Physician. [facility] Vital Signs: 20:47 BP 166 / 90; Pulse 93; Resp 18; Temp 97; Pulse Ox 99% ; Weight 73.48 kg; Height 5 ft. 1 kb4 in. ; Pain 8/10; 21:18 BP 175 / 87; Pulse 88; Resp 16; Pulse Ox 100% on R/A; kd3 22:11 BP 149 / 77; Pulse 84; Resp 18; Pulse Ox 100% on R/A; kd3 22:38 BP 147 / 78; Pulse 81; Resp 16; Pulse Ox 94% on R/A; kd3 20:47 Body Mass Index 30.61 (73.48 kg, 154.94 cm) kb4 20:47 Pain Scale: Adult kb4 MDM: 20:46 Medical Screening Exam initiated [facility] 21:42 Differential diagnosis: abnormal EKG, acute myocardial infarction, acute pericarditis, brian anxiety, chest wall pain, cholecystitis, Cholelithiasis costochondritis, arrythmia, dehydration, esophagitis, gastritis, pancreatitis, pericarditis, pleurisy, pulmonary embolus, stable angina, unstable angina. Differential Diagnosis altered mental status, sepsis, flu. HEART Score: History: Slightly Suspicious (0), ECG: Normal (0), Age: > 45 and < 65 years (1), Risk Factors: > or = 3 Risk factors for atherosclerotic disease (2), [Hypertension] [+ Family HX] [Obesity] Troponin: < or = 1 x Normal Limit (0). The patient was given aspirin in the Emergency Department. RODERICK Risk Score: TOTAL SCORE = 0. Data reviewed: vital signs, nurses notes, lab test result(s), EKG, radiologic studies, plain films. Consideration of Admission/Observation Escalation of care including admission/observation considered. I considered the following discharge prescriptions or medication management in the emergency department Medications were administered in the Emergency Department. See MAR. Independent interpretation of the following test(s) in the Emergency Department EKG: See my EKG interpretation above. 21:54 Test considered but Not performed: Ultrasound NO 2 D ECHO. [facility] 07/05 20:48 Order name: Basic Metabolic Panel; Complete Time: 21:53 [facility] 07/05 20:48 Order name: CBC with Diff; Complete Time: 21:49 [facility] 07/05 20:48 Order name: LFT's; Complete Time: 21:53 [facility] 07/05 20:48 Order name: Magnesium; Complete Time: 21:53 [facility] 07/05 20:48 Order name: NT PRO-BNP; Complete Time: 21:53 [facility] 07/05 20:48 Order name: PT-INR; Complete Time: 21:49 [facility] 07/05 20:48 Order name: Troponin HS; Complete Time: 21:53 [facility] 07/05 20:48 Order name: Lipase; Complete Time: 21:53 [facility] 07/05 20:48 Order name: UA Rfx Romel Cult if indicated; Complete Time: 21:49 [facility] 07/05 21:39 Order name: Urine Culture [facility] 07/05 21:49 Order name: Troponin HS; Complete Time: 22:43 [facility] 07/05 20:48 Order name: XRAY Chest (1 view); Complete Time: 21:49 [facility] 07/05 21:54 Order name: EKG; Complete Time: 21:54 [facility] 07/05 20:48 Order name: Cardiac monitoring; Complete Time: 21:16 [facility] 07/05 20:48 Order name: EKG - Nurse/Tech; Complete Time: 21:16 [facility] 07/05 20:48 Order name: IV Saline Lock; Complete Time: 21:16 [facility] 07/05 20:48 Order name: Labs collected and sent; Complete Time: 21:16 [facility] 07/05 20:48 Order name: O2 Per Protocol; Complete Time: 21:16 [facility] 07/05 20:48 Order name: O2 Sat Monitoring; Complete Time: 21:16 [facility] 07/05 21:54 Order name: EKG - Nurse/Tech; Complete Time: 22:13 [facility] EC:41 Rate is 88 beats/min. Rhythm is regular. QRS [place] is Normal. CO interval is normal. QRS brian interval is normal. QT interval is normal. No Q waves. T waves are Normal. No ST changes noted. Clinical impression: NSR w/ Non-specific ST/T Changes and No evidence of ischemia. Interpreted by me. Reviewed by me. 22:23 Rate is 80 beats/min. Rhythm is regular. QRS [place] is Normal. CO interval is normal. QRS brian interval is normal. QT interval is normal. No Q waves. T waves are Normal. No ST changes noted. Clinical impression: Normal ECG and No evidence of ischemia. Interpreted by me. Reviewed by me. Administered Medications: 21:15 Not Given (Patient Refused): aspirinchewable tablet 324 mg PO once; 81 mg tablets x 4 kd3 21:16 Drug: NS 0.9% IV 500 ml 500 ml IV at 1 bolus once; to be given as a bolus over 30 kd3 minutes Volume: 500 ml; Route: IV; Rate: 1 bolus; Site: right antecubital; 22:53 Follow up: IV Status: Completed infusion kd3 22:11 Drug: Rocephin IV 1 grams IV at per protocol once; Given slow IV push per pharmacy kd3 instructions Route: IV; Rate: per protocol; Site: right antecubital; 22:53 Follow up: IV Status: Completed infusion kd3 22:45 Drug: ToPROL XL PO 25 mg PO once Route: PO; kd3 22:53 Follow up: Response: No adverse reaction kd3 22:45 Drug: Clopidogrel PO 75 mg PO once Route: PO; kd3 22:54 Follow up: Response: No adverse reaction kd3 Disposition Summary: 07/05/25 22:43 Discharge Ordered Notes: Location: Home brian Problem: new brian Symptoms: have improved brian Condition: Stable brian Diagnosis - Chest pain, unspecified brian - Anxiety disorder, unspecified brian - UTI/ Urinary tract infection, site not specified brian Followup: brian - With: Private Physician - When: 1 - 2 days - Reason: Recheck today's complaints, Continuance of care, Re-evaluation by your physician Followup: brian - With: Rob Montgomery MD - When: 2 - 3 days - Reason: Recheck today's complaints, Re-evaluation by your physician Discharge Instructions: - Discharge Summary Sheet brian - Nonspecific Chest Pain, Adult brian - Urinary Tract Infection, Adult, [id number] brian - Nonspecific Chest Pain, Adult, [id number] [facility] - Aspirin and Your Heart [facility] - Managing Anxiety, Adult [facility] Forms: - Medication Reconciliation Form [facility] - Antibiotic Education brian - Prescription Opioid Use brian - Patient Portal Instructions [facility] - Leadership Thank You Letter [facility] Prescriptions: - Cipro 250 mg Oral tablet - take 1 tablet ORAL route every 12 hours; 14 tablet; Refills: 0, Product [facility] Selection Permitted - Pepcid 20 mg Oral tablet - take 1 tablet ORAL route every 12 hours for 21 days; 42 tablet; Refills: 0, brian Product Selection Permitted - Plavix 75 mg Oral Tablet - take 1 tablet ORAL route once daily; 20 tablet; Refills: 0, Product Selection [facility] Permitted - Toprol XL 25 mg Oral Tablet - take 1 tablet ORAL route once daily; 20 tablet; Refills: 0, Product Selection [facility] Permitted - Bactrim DS 800-160 mg Oral Tablet - take 1 tablet ORAL route every 12 hours for 7 days; 14 tablet; Refills: 0, dr5 Product Selection Permitted Signatures: Dispatcher [employer] EDMS Cody Ron MD MD cha Doucette, Kyli, RN RN kd3 Mary Ramirez, RN RN kb4 Corrections: (The following items were deleted from the chart) 20:49 20:49 BASIC METABOLIC PANEL+C.LAB.BRZ ordered. EDMS EDMS 20:49 20:49 CBC+H.LAB.BRZ ordered. EDMS EDMS 20:49 20:49 HEPATIC FUNCTION+C.LAB.BRZ ordered. EDMS EDMS 20:49 20:49 MAGNESIUM+C.LAB.BRZ ordered. EDMS EDMS 20:49 20:49 PROBNP+C.LAB.BRZ ordered. EDMS EDMS 20:49 20:49 PROTIME (+INR)+COAG.LAB.BRZ ordered. EDMS EDMS 20:49 20:49 Troponin High Sensitivity+C.LAB.BRZ ordered. EDMS EDMS 20:49 20:49 LIPASE+C.LAB.BRZ ordered. EDMS EDMS 20:49 20:49 UA Rfx Romel Cult if indicated+U.LAB.BRZ ordered. EDMS EDMS 20:49 20:49 Chest Single View+RAD.RAD.BRZ ordered. EDMS EDMS 20:51 20:51 PMHx: diabetes mellitus; kb4 kb4 20:51 20:51 PMHx: Nerve damage; kb4 kb4 20:51 20:51 PMHx: sciatica (Unknown); kb4 kb4 20:51 20:51 PMHx: Left knee torn ACL (Unknown); kb4 kb4 20:51 20:51 PSHx: D\T\C; kb4 kb4 20:51 20:51 PSHx: leg; kb4 kb4 21:49 21:49 Troponin High Sensitivity+C.LAB.BRZ ordered. EDMS EDMS
--- NOTE | 2025-07-05 22:44 | ER ---
Nurse's Notes [facility] Name: Tova Ames Age: 55 yrs Sex: Female : 1970 Arrival Date: 07/05/2025 Time: 20:39 Bed 8 Private MD: Diagnosis: Chest pain, unspecified;Anxiety disorder, unspecified;UTI/ Urinary tract infection, site not specified Presentation: 07/05 20:47 Chief complaint: Patient states: c/o sharp chest pains with, SOB, R hand/arm numbness, kb4 dizziness. Coronavirus screen: At this time, unable to obtain information related to travel outside the [place] At this time, the client does not indicate any symptoms associated with coronavirus-19. Ebola Screen: No symptoms or risks identified at this time. Initial Sepsis Screen: Does the patient meet any 2 criteria? No. Patient's initial sepsis screen is negative. Does the patient have a suspected source of infection? No. Patient's initial sepsis screen is negative. Risk Assessment: Do you want to hurt yourself or someone else? Patient reports no desire to harm self or others. Onset of symptoms was July 05, 2025 at 16:00. 20:47 Method Of Arrival: Ambulatory kb4 20:47 Acuity: JACKIE 2 kb4 Triage Assessment: 20:51 General: Appears distressed, comfortable, Behavior is calm, cooperative. Pain: kb4 Complains of pain in chest and right hand. Neuro: Level of Consciousness is awake, alert, obeys commands, Oriented to person, place, time, situation. SEC ACCOUNTANT: 20:51 unknown kb4 Historical: - Allergies: 20:51 Aspirin; kb4 20:51 Ibuprofen; kb4 20:51 Influenza Virus Vaccines; kb4 20:51 PENICILLINS; kb4 - Immunization history:: Adult Immunizations up to date. - Infectious Disease History:: Denies. - Social history:: Smoking status: Patient denies any tobacco usage or history of. Patient uses alcohol, occasionally. - Family history:: not pertinent. Screenin:18 [facility] ED Fall Risk Assessment (Adult) History of falling in the last 3 months, kd3 including since admission No falls in past 3 months (0 pts) Confusion or Disorientation No (0 pts) Intoxicated or Sedated No (0 pts) Impaired Gait No (0 pts) Mobility Assist Device Used No (0 pt) Altered Elimination No (0 pt) Score/Fall Risk Level 0 - 2 = Low Risk Maintained a safe environment. Abuse screen: Denies threats or abuse. Denies injuries from another. Nutritional screening: No deficits noted. Tuberculosis screening: No symptoms or risk factors identified. Assessment: 21:17 General: Appears uncomfortable, Behavior is anxious. Pain: Complains of pain in right kd3 hand and chest. Neuro: Level of Consciousness is awake, alert, obeys commands, Oriented to person, place, time, situation. Cardiovascular: Capillary refill < 3 seconds Patient's skin is warm and dry. Respiratory: Airway is patent Trachea midline Respiratory effort is even, unlabored, Respiratory pattern is regular, symmetrical. Vital Signs: 20:47 BP 166 / 90; Pulse 93; Resp 18; Temp 97; Pulse Ox 99% ; Weight 73.48 kg; Height 5 ft. 1 kb4 in. ; Pain 8/10; 21:18 BP 175 / 87; Pulse 88; Resp 16; Pulse Ox 100% on R/A; kd3 22:11 BP 149 / 77; Pulse 84; Resp 18; Pulse Ox 100% on R/A; kd3 22:38 BP 147 / 78; Pulse 81; Resp 16; Pulse Ox 94% on R/A; kd3 20:47 Body Mass Index 30.61 (73.48 kg, 154.94 cm) kb4 20:47 Pain Scale: Adult kb4 ED Course: 20:42 Patient arrived in ED. mr 20:46 Cody Ron MD is Attending Physician. brian 20:51 Triage completed. kb4 20:51 Arm band placed on right wrist. kb4 21:01 Mely Ibarra, LAZARO is Primary Nurse. kd3 21:16 Inserted saline lock: 20 gauge in right antecubital area, using aseptic technique. kd3 Blood collected. Flushed with 10 mL NS. 21:16 UA Rfx Romel Cult if indicated Sent. kd3 21:16 Lipase Sent. kd3 21:16 Basic Metabolic Panel Sent. kd3 21:16 CBC with Diff Sent. kd3 21:16 LFT's Sent. kd3 21:16 Magnesium Sent. kd3 21:16 NT PRO-BNP Sent. kd3 21:16 PT-INR Sent. kd3 21:16 Troponin HS Sent. kd3 21:18 XRAY Chest (1 view) In Process Unspecified. EDMS 21:18 Patient has correct armband on for positive identification. Provided Education on: kd3 aspirin . 22:11 Troponin HS Sent. kd3 22:43 Rob Montgomery MD is Referral Physician. [facility] 22:53 No provider procedures requiring assistance completed. IV discontinued, intact, kd3 bleeding controlled, No redness/swelling at site. Pressure dressing applied. Administered Medications: 21:15 Not Given (Patient Refused): aspirinchewable tablet 324 mg PO once; 81 mg tablets x 4 kd3 21:16 Drug: NS 0.9% IV 500 ml 500 ml IV at 1 bolus once; to be given as a bolus over 30 kd3 minutes Volume: 500 ml; Route: IV; Rate: 1 bolus; Site: right antecubital; 22:53 Follow up: IV Status: Completed infusion kd3 22:11 Drug: Rocephin IV 1 grams IV at per protocol once; Given slow IV push per pharmacy kd3 instructions Route: IV; Rate: per protocol; Site: right antecubital; 22:53 Follow up: IV Status: Completed infusion kd3 22:45 Drug: ToPROL XL PO 25 mg PO once Route: PO; kd3 22:53 Follow up: Response: No adverse reaction kd3 22:45 Drug: Clopidogrel PO 75 mg PO once Route: PO; kd3 22:54 Follow up: Response: No adverse reaction kd3 Medication: 21:18 VIS not applicable for this client. kd3 Outcome: 22:43 Discharge ordered by . [facility] 22:53 Discharged to home ambulatory, kd3 22:53 Condition: stable 22:53 Discharge instructions given to patient, Instructed on discharge instructions, follow up and referral plans. medication usage, Demonstrated understanding of instructions, follow-up care, medications, Prescriptions given X 4, 22:54 Patient left the ED. kd3 Addendum: 07/12/2025 11:29 Addendum: Culture Results: Positive urine culture. Bacteria is resistant to, has j l7 intermediate sensitivity, or is not tested against prescribed antibiotics. Report given to TALISHA for further evaluation and then to shoe lining fitter for follow up with patient. Phone call Attempt #1 no answer, left VM. Signatures: Dispatcher [employer] EDMS Cody Ron MD MD cha Rivera, Mary, Reg Reg Johny Smitha, RN RN jl7 Mely Ibarra RN RN kd3 Mary Ramirez RN RN kb4 Corrections: (The following items were deleted from the chart) 07/05 20:51 20:51 PMHx: diabetes mellitus; kb4 kb4 20:51 20:51 PMHx: Nerve damage; kb4 kb4 20:51 20:51 PMHx: sciatica (Unknown); kb4 kb4 20:51 20:51 PMHx: Left knee torn ACL (Unknown); kb4 kb4 20:51 20:51 PSHx: D\T\C; kb4 kb4 20:51 20:51 PSHx: leg; kb4 kb4
[2025-07-05 22:58] VITALS: TEMP 97
[2025-07-05 23:02] VITALS: BP 147/78; O2SAT 94
== END 2025-07-05 22:54 | disposition home or self-care (01) ==
LOC: ER 20:39
DX: F41.9 Anxiety disorder, unspecified (principal); N39.0 Urinary tract infection, site not specified
CPT/HCPCS: 96365; 96361; 93005 ×2; 87088; 85025; 81001; 87086; 80048; 36415; 83735; 85610; 80076; 87077; 87186; 84484 ×2; 83690; 83880; 71045; 99284; J7040; J0696